=== PATIENT | female | born 1960 | race Caucasian/White ===

== ENCOUNTER 2022-01-14 17:28 | Observation (INO) | payer BC ==
--- OUTSIDE RECORDS SUMMARY | 2022-01-14 17:51 | XMS REPORT | Continuity of Care Document ---
:1960 Author Organization [facility] t Address [address] [place] [address] Dr. [address]. [address] [place] [address] Care Team Providers Name Role Phone PRINCE BRIAN NURY Primary Care Physician Unavailable ALYSIA SHELL Attending Clinician Unavailable Pauline Boone MD, Guilherme Attending Clinician Jeff Luciano MD Attending Clinician FLORENTIN CARPENTER Attending Clinician Unavailable MALENA SHELL Attending Clinician Unavailable ABIGAIL MORRELL Attending Clinician Unavailable Malena Shell MD Attending Clinician TAMERA FOWLER Attending Clinician Unavailable BARTOLO GOODMAN Attending Clinician Unavailable RIANA CARCAMO Attending Clinician Unavailable RADHA MARTINEZ Attending Clinician Unavailable ELIDA DE LEON Attending Clinician Unavailable Napoleon Billy MD Attending Clinician RAFAEL HENRIQUEZ Attending Clinician Unavailable YOMAIRA GUPTA Attending Clinician Unavailable DEVI SANTILLAN Attending Clinician Unavailable KAROLINA ROSE Attending Clinician Unavailable Elida De Leon MD Attending Clinician [phone] TAMERA FOWLER Attending Clinician Unavailable ALYCE LAM Attending Clinician Unavailable RIC PARRA Attending Clinician Unavailable RIC PARRA Attending Clinician Unavailable JAMES DEE Attending Clinician Unavailable Kristie Salguero RN Attending Clinician Unavailable Only, Adc Test Attending Clinician Unavailable Kevin Gandhi MD Attending Clinician KEVIN GANDHI Attending Clinician Unavailable Doctor Unassigned, Dewitt Attending Clinician Unavailable Pob, Adc Lab Main Attending Clinician Unavailable Devi Cheema MD Attending Clinician DEVI CHEEMA Attending Clinician Unavailable Radiology Attending Clinician Unavailable RADIOLOGY Attending Clinician Unavailable NICOLE LOZA Attending Clinician Unavailable Devi Santillan NP Attending Clinician WEI GANDHI Attending Clinician Unavailable RAHEEM JOE Attending Clinician Unavailable ISAURA BURROUGHS Attending Clinician Unavailable MD RAHEEM JOE Attending Clinician Unavailable SKYLER LIN Attending Clinician Unavailable Skyler Lin MD Attending Clinician SULEMAN ALYSIA MAKSIM Admitting Clinician Unavailable TAMERA FOWLER Admitting Clinician Unavailable JAMES DEE Admitting Clinician Unavailable WEI GANDHI Admitting Clinician Unavailable MD RAHEEM JEO Admitting Clinician Unavailable SKYLER LIN Admitting Clinician Unavailable Payers Payer Name Policy Type Policy Number Effective Date Expiration Date S [facility] [place] [place] BCBS OS POS/PPO/EPO [id number] 2020 00:00:00 OUT OF STATE BCBS - [id number] PPO - BCBS GENERIC PPO - [id number] GENERIC PAYOR GENERIC COMMERCIAL [id number] 2016 00:00:00 Problems Condition Condition Condition Status Onset Resolution Last Treating Co mments Source Name Details Category Date Date Treatment Clinician Date 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 ium avium 3-02 [facility] infection infection 00:00: of 00 Medicin e Pneumothor Pneumothor Disease Active [facility]osp[facility] 00 l Nodule of Nodule of Disease Active [facility] lower lobe lower lobe 1-21 st of left of left 00:00: Hospita lung lung 00 l CVID CVID Disease Active [facility] (common (common 2-18 College variable variable 00:00: of immunodefi immunodefi 00 Me dicin ciency) ciency) e Gastropare Gastropare Disease Active 2016-04 B natalee sis sis 0-21 College 00:00: of 00 Medicin e Renal mass Renal mass Disease [facility] 7-17 College 00:00: of 00 Medicin e Personal Personal Disease Active [facility] r history of history of 6-29 Co llege kidney kidney 00:00: of cancer cancer 00 Medicin e Personal Personal Disease Active [facility] r history of history of 6-29 Co llege kidney kidney 00:00: of cancer cancer 00 Medicin e Essential Essential Disease Active [facility] hypertensi hypertensi 5-10 Co llege on on 00:00: of 00 Medicin e Hip pain, Hip pain, Disease Active 2014-04 Uni vers bilateral bilateral 1-25 ity of 00:00: [place] 00 [facility] Shoulder Shoulder Disease Active 2014-04 Unive rs pain, pain, 1-25 [place] 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 reticulari Co llege s s of Medicin e History of History of Disease Active B [facility] stomach stomach [place] ulcers ulcers of Medicin e Migraine Migraine Disease Active [facility] headache headache Colleg e of Medicin e COPD COPD Disease Active [facility] (chronic (chronic Colleg e obstructiv obstructiv of e e Medicin pulmonary pulmonary e disease) disease) Carotid Carotid Disease Active [facility] artery artery College disease disease of Medicin e Pneumonia Pneumonia Disease Active [facility] of Medicin e Diverticul Diverticul Disease Active B [facility] itis itis College of Medicin e Allergies, Adverse Reactions, Alerts Allergy Allergy Status Severity Reaction(s) Onset Inactive Treating Comm ents Source Name Type Date Date Clinician Adhesive Propensi Active Unknown - Silk tape Univers ty to See comments 6-05 peels ity of adverse 00:00: skin off, [place] reaction 00 prefers Medical s paper Branch tape ADHESIVE Drug Active Unknown-Cmnt Un jesse Class 6-05 ity of 00:00: [place] 00 Medical Branch ADHESIVE Allergy Active High Other 2016- [facility] 6 00:00: 00 CEPHALOS Allergy Active High N\\T\\V [facility] PORINS 6 00:00: 00 OTHER Allergy Active High N\\T\\V 0 [facility] 605 00:00: 00 PENICILL Allergy Active High N\\T\\V [facility] INS 6 00:00: 00 SULFA Allergy Active High N\\T\\V [facility]H (SULFONA 09-05 MIDE 00:00: ANTIBIOT 00 ICS) Cephalos Propensi Active Nausea Univer s porins ty to and/or 07-07 ity of adverse Vomiting 00:00: [place] reaction 00 Medical s Branch CEPHALOS Drug Active N/V Univers PORINS Class - ity of 00:00: [place] 00 Medical Branch PENICILL Drug Active N/V Univers INS Class 4 ity of 00:00: [place] 00 [facility] Branch Penicill Propensi Active Nausea Univer s ins ty to and/or 07-07 ity of adverse Vomiting 00:00: [place] reaction 00 Medical s Branch Cephalos Propensi Active [facility] porins ty to 06 [place] adverse 00:00: of reaction 00 Medicin s to e drug Codeine Propensi Active [facility] ty to 4-06 [place] adverse 00:00: of reaction 00 Medicin s to e drug Penicill Propensi Active [facility] ins ty to 406 [place] adverse 00:00: of reaction 00 Medicin s to e drug Sulfa Propensi Active [facility] Antibiot ty to 4-06 [place] ics adverse 00:00: of reaction 00 Medicin s to e drug CODEINE DRUG Active N/V 2014-04 Univers INGREDI 04-13 ity of 00:00: [place] 00 Medical Branch Codeine Propensi Active Nausea 2014-04 Univers ty to and/or 04-13 ity of adverse Vomiting 00:00: [place] reaction 00 Medical s Branch PENICILL DRUG Active N/V 2014-04 Univers IN INGREDI 04-13 ity of 00:00: [place] 00 Medical Branch SULFA Drug Active N/V 2014-04 Univers (SULFONA Class 04-13 ity of MIDE 00:00: [place] ANTIBIOT 00 Medical ICS) Branch Penicill Propensi Active Nausea 2014-04 Univer s in ty to and/or 04-13 ity of adverse Vomiting 00:00: [place] reaction 00 Medical s Branch Sulfa Propensi Active Nausea 2014-04 Univers (Sulfona ty to and/or 04-13 ity of mide adverse Vomiting 00:00: [place] Antibiot reaction 00 Medica l ics) s Branch CODEINE Allergy Active High N\\T\\V 2014-[address] [facility] Social History Social Habit Start Date Stop Date Quantity Comments Source History [facility] Drinks History [facility] History [facility] Alcohol Comment of Medici ne History of Cigarette Smoker [facility] ollekyara tobacco use of Medicine Cigarette 2022-01-11 2022-01-11 [facility] pack-years 00:00:00 00:00:00 of Medicine Tobacco Comment 2022-01-11 2022-01-11 I have smoked daily [facility] 00:00:00 00:00:00 for approximately 40 of years. I have started taking Chantix this past Monday. Tobacco use and 2022-01-11 2022-01-11 Smokeless tobacco [facility] exposure 00:00:00 00:00:00 non-user of Medicine Exposure to 2021-12-14 2021-12-24 Not sure [facility] e SARS-CoV-2 00:00:00 09:41:00 of Medicine (event) Alcohol intake 2020-04-23 2020-04-23 Lifetime non-drinker [facility] 00:00:00 00:00:00 (finding) Hospital History [facility] 2020-04-23 2020-04-23 1 [facility] Alcohol Frequency 00:00:00 00:00:00 Hospita l Cigarettes smoked 2019-02-01 2019-02-01 Univers ity of current (pack per 00:00:00 00:00:00 ) - Reported Branch Sex Ass[birth year] At [birth year] [facility] 00:00:00 00:00:00 Hospital Smoking Status Start Date Stop Date Source Occasional tobacco smoker 2022-01-11 00:00:00 [facility] Current every day smoker 2019-02-01 00:00:00 [facility] Medications Ordered Filled Start Stop Current Ordering Indication Dosage Frequency Signature Comments Components Source Medication Medication Date Date Medication? Clinician (SIG) Name Name Norma 2021-04 Yes 1{tbl} Take 1 [facility] min (B-12 0-11 Tablet by [facility] OR) 10:01: mouth of 29 daily. Medicin e alprazolam 2021-04 Yes .5mg Take 0.5 [place] [facility] (XANAX) 0.5 0-11 mg by [place] MG tablet 10:01: mouth of 29 nightly as Medicin needed for e Sleep. estrogens, 2021-04 Yes 1.25mg Take 1.25 [facility] conjugated, 0-11 mg by [place] (PREMARIN) 10:01: mouth of 1.25 MG 29 daily. Medicin tablet e montelukast 2021-04 Yes 10mg Take 10 mg [facility] (SINGULAIR) 0-11 by mouth [facility] 10 MG 10:01: daily. of tablet 29 Medicin e omeprazole 2021-04 Yes 40mg Take 40 mg [facility] (PRILOSEC) 0-11 by mouth [facility] 40 MG 10:01: daily. of capsule 29 Medicin e MAGNESIUM 2021-04 Yes 1{tbl} Take 1 [facility] OR 0-11 Tablet by [place] 10:01: mouth of 29 daily. Medicin e acetaminoph 2021-04 Yes 1000mg Take 1,000 [facility] en 0-11 mg by [place] (TYLENOL) 10:01: mouth as of 500 mg 29 needed for Medicin tablet Pain. e gabapentin 2021-04 Yes 300mg Take 300 [facility] (NEURONTIN) 0-11 mg by [place] 300 MG 10:01: mouth 3 of capsule 29 times Medicin daily. e oxybutynin 2021-04 Yes 10mg Take 10 mg [facility] (DITROPAN-X 0-11 by mouth [facility] L) 10 MG CR 10:01: as needed. of tablet 29 Medicin e Cabozantini 2021-04 Yes [id number] Take by [place] [facility] b S-[place] 0-11 mouth. College 20 MG TABS 10:01: Take of 29 2-20mg Medicin tablets by e mouth once daily. Indication s: Kidney Cell Carcinoma Cyanocobala 2021-04 Yes 1{tbl} Take 1 [facility] min (B-12 0-11 Tablet by [facility] ge OR) 10:01: mouth of 29 daily. Medicin e alprazolam 2021-04 Yes .5mg Take 0.5 [place] [facility] (XANAX) 0.5 0-11 mg by [place] MG tablet 10:01: mouth of 29 nightly as Medicin needed for e Sleep. estrogens, 2021-04 Yes 1.25mg Take 1.25 [facility] conjugated, 0-11 mg by College (PREMARIN) 10:01: mouth of 1.25 MG 29 daily. Medicin tablet e montelukast 2021-04 Yes 10mg Take 10 mg [facility] (SINGULAIR) 0-11 by mouth [facility] 10 MG 10:01: daily. of tablet 29 Medicin e omeprazole 2021-04 Yes 40mg Take 40 mg [facility] (PRILOSEC) 0-11 by mouth Colle ge 40 MG 10:01: daily. of capsule 29 Medicin e MAGNESIUM 2021-04 Yes 1{tbl} Take 1 [facility] OR 0-11 Tablet by College 10:01: mouth of 29 daily. Medicin e acetaminoph 2021-04 Yes 1000mg Take 1,000 [facility] en 0-11 mg by [place] (TYLENOL) 10:01: mouth as of 500 mg 29 needed for Medicin tablet Pain. e gabapentin 2021-04 Yes 300mg Take 300 [facility] (NEURONTIN) 0-11 mg by [place] 300 MG 10:01: mouth 3 of capsule 29 times Medicin daily. e oxybutynin 2021-04 Yes 10mg Take 10 mg [facility] (DITROPAN-X 0-11 by mouth [facility] L) 10 MG CR 10:01: as needed. of tablet 29 Medicin e Cabozantini 2021-04 Yes [id number] Take by [place] [facility]-[place] 0-11 mouth. College 20 MG TABS 10:01: Take of 29 2-20mg Medicin tablets by e mouth once daily. Indication s: Kidney Cell Carcinoma carvedilol Yes TAKE 1 [facility] (COREG) 25 9-30 TABLET BY [facility] MG tablet 00:00: MOUTH of 00 TWICE Medicin DAILY e carvedilol Yes TAKE 1 [facility] (COREG) 25 -30 TABLET BY [facility] MG tablet 00:00: MOUTH of 00 TWICE Medicin DAILY e candesartan 2021-0 2- No 16mg Take 16 mg [facility] (ATACAND) -24 12-23 by mouth Colle ge 16 MG 11:11: 00:00 daily. of tablet 30 :00 Medicin e Cyanocobala Yes 1{tbl} Take 1 [facility] min (B-12 - Tablet by [facility] ge OR) 10:19: mouth of 31 daily. Medicin e alprazolam 0 Yes .5mg Take 0.5 [place] [facility] (XANAX) 0.5 -23 mg by [place] MG tablet 10:19: mouth of 31 nightly as Medicin needed for e Sleep. estrogens, 0 Yes 1.25mg Take 1.25 [facility] conjugated, 9-23 mg by [place] (PREMARIN) 10:19: mouth of 1.25 MG 31 daily. Medicin tablet e montelukast Yes 10mg Take 10 mg [facility] (SINGULAIR) 12-24 by mouth [facility] 10 MG 10:19: daily. of tablet 31 Medicin e omeprazole 0 Yes 40mg Take 40 mg [facility] (PRILOSEC) 12-24 by mouth Colle ge 40 MG 10:19: daily. of capsule 31 Medicin e MAGNESIUM 0 Yes 1{tbl} Take 1 [facility] OR 12-24 Tablet by [place] 10:19: mouth of 31 daily. Medicin e acetaminoph 0 Yes 1000mg Take 1,000 [facility] en 9-23 mg by [place] (TYLENOL) 10:19: mouth as of 500 mg 31 needed for Medicin tablet Pain. e gabapentin 0 Yes 300mg Take 300 [facility] (NEURONTIN) - mg by [place] 300 MG 10:19: mouth 3 of capsule 31 times Medicin daily. e oxybutynin 0 Yes 10mg Take 10 mg [facility] (DITROPAN-X 12-24 by mouth [facility] L) 10 MG CR 10:19: as needed. of tablet 31 Medicin e Cabozantini 0 Yes [id number] Take by [place] [facility]-[place] 12-24 mouth. College 20 MG TABS 10:19: Take of 31 2-20mg Medicin tablets by e mouth once daily. Indication s: Kidney Cell Carcinoma Magic 0 Yes Swish, [facility] Mouthwash - gargle, College 00:00: and spit of 00 5-10 mL Medicin every 4 to e 6 hours as needed candesartan 2021-0 Yes [id number] TAKE 1 [facility] (ATACAND) 9-23 TABLET BY Colle ge 16 MG 00:00: MOUTH of tablet 00 DAILY. Medicin e Magic 0 Yes Swish, [facility] Mouthwash - gargle, [place] 00:00: and spit of 00 5-10 mL Medicin every 4 to e 6 hours as needed candesartan 2021-0 Yes [id number] TAKE 1 [facility] (ATACAND) 9-23 TABLET BY Colle ge 16 MG 00:00: MOUTH of tablet 00 DAILY. Medicin e Magic Yes Swish, [facility] Mouthwash - gargle, [place] 00:00: and spit of 00 5-10 mL Medicin every 4 to e 6 hours as needed Cabozantini Yes [id number] Take by [place] [facility] S-[place] 8-26 mouth. [place] 20 MG TABS 09:24: Take of 18 2-20mg Medicin tablets by e mouth once daily. Indication s: Kidney Cell Carcinoma Cyanocobala Yes 1{tbl} Take 1 [facility] min (B-12 8-26 Tablet by [facility] OR) 08:33: mouth of 06 daily. Medicin e alprazolam Yes .5mg Take 0.5 [place] [facility] (XANAX) 0.5 8-26 mg by [place] MG tablet 08:33: mouth of 06 nightly as Medicin needed for e Sleep. estrogens, 0 Yes 1.25mg Take 1.25 [facility] conjugated, 8-26 mg by [place] (PREMARIN) 08:33: mouth of 1.25 MG 06 daily. Medicin tablet e montelukast 0 Yes 10mg Take 10 mg [facility] (SINGULAIR) 8-26 by mouth [facility] 10 MG 08:33: daily. of tablet 06 Medicin e omeprazole 2022-0 Yes 40mg Take 40 mg [facility] (PRILOSEC) 8-26 by mouth Colle ge 40 MG 08:33: daily. of capsule 06 Medicin e MAGNESIUM 0 Yes 1{tbl} Take 1 [facility] OR 8-26 Tablet by [place] 08:33: mouth of 06 daily. Medicin e acetaminoph 2021-0 Yes 1000mg Take 1,000 [facility] en 8-26 mg by [place] (TYLENOL) 08:33: mouth as of 500 mg 06 needed for Medicin tablet Pain. e gabapentin 0 Yes 300mg Take 300 [facility] (NEURONTIN) 8-26 mg by College 300 MG 08:33: mouth 3 of capsule 06 times Medicin daily. e oxybutynin 0 Yes 10mg Take 10 mg [facility] (DITROPAN-X 8-26 by mouth [facility] L) 10 MG CR 08:33: as needed. of tablet 06 Medicin e candesartan 0 Yes 16mg Take 16 mg [facility] (ATACAND) 8-26 by mouth Colleg e 16 MG 08:33: daily. of tablet 06 Medicin e Cyanocobala 0 Yes 1{tbl} Take 1 [facility] min (B-12 8-24 Tablet by [facility] ge OR) 12:47: mouth of 29 daily. Medicin e alprazolam 0 Yes .5mg Take 0.5 [place] [facility] (XANAX) 0.5 8-24 mg by [place] MG tablet 12:47: mouth of 29 nightly as Medicin needed for e Sleep. estrogens, 2021-0 Yes 1.25mg Take 1.25 [facility] conjugated, 8-24 mg by [place] (PREMARIN) 12:47: mouth of 1.25 MG 29 daily. Medicin tablet e montelukast 0 Yes 10mg Take 10 mg [facility] (SINGULAIR) 8-24 by mouth [facility] 10 MG 12:47: daily. of tablet 29 Medicin e omeprazole 2021-0 Yes 40mg Take 40 mg [facility] (PRILOSEC) 8-24 by mouth Colle ge 40 MG 12:47: daily. of capsule 29 Medicin e MAGNESIUM 2021-0 Yes 1{tbl} Take 1 [facility] OR 8-24 Tablet by [place] 12:47: mouth of 29 daily. Medicin e acetaminoph 2021-0 Yes 1000mg Take 1,000 [facility] en 8-24 mg by [place] (TYLENOL) 12:47: mouth as of 500 mg 29 needed for Medicin tablet Pain. e gabapentin 2021-0 Yes 300mg Take 300 [facility] (NEURONTIN) 8-24 mg by [place] 300 MG 12:47: mouth 3 of capsule 29 times Medicin daily. e oxybutynin 2021-0 Yes 10mg Take 10 mg [facility] (DITROPAN-X 8-24 by mouth [facility] L) 10 MG CR 12:47: as needed. of tablet 29 Medicin e candesartan 2021-0 Yes 16mg Take 16 mg [facility] (ATACAND) 8-24 by mouth Colleg e 16 MG 12:47: daily. of tablet 29 Medicin e Cyanocobala 2021-0 Yes 1{tbl} Take 1 [facility] min (B-12 8-24 Tablet by [facility] ge OR) 11:03: mouth of 10 daily. Medicin e alprazolam 2021-0 Yes .5mg Take 0.5 [place] [facility] (XANAX) 0.5 8-24 mg by [place] MG tablet 11:03: mouth of 10 nightly as Medicin needed for e Sleep. estrogens, 2021-0 Yes 1.25mg Take 1.25 [facility] conjugated, 8-24 mg by [place] (PREMARIN) 11:03: mouth of 1.25 MG 10 daily. Medicin tablet e montelukast 2021-0 Yes 10mg Take 10 mg [facility] (SINGULAIR) 8-24 by mouth [facility] 10 MG 11:03: daily. of tablet 10 Medicin e omeprazole 2021-0 Yes 40mg Take 40 mg [facility] (PRILOSEC) 8-24 by mouth Colle ge 40 MG 11:03: daily. of capsule 10 Medicin e MAGNESIUM 2021-0 Yes 1{tbl} Take 1 [facility] OR 8-24 Tablet by [place] 11:03: mouth of 10 daily. Medicin e acetaminoph 2021-0 Yes 1000mg Take 1,000 [facility] en 8-24 mg by [place] (TYLENOL) 11:03: mouth as of 500 mg 10 needed for Medicin tablet Pain. e gabapentin 2022-0 Yes 300mg Take 300 [facility] (NEURONTIN) 8-24 mg by [place] 300 MG 11:03: mouth 3 of capsule 10 times Medicin daily. e oxybutynin 0 Yes 10mg Take 10 mg [facility] (DITROPAN-X 8-24 by mouth [facility] L) 10 MG CR 11:03: as needed. of tablet 10 Medicin e candesartan 0 Yes 16mg Take 16 mg [facility] (ATACAND) 8-24 by mouth Colleg e 16 MG 11:03: daily. of tablet 10 Medicin e albuterol 0 Yes [id number] 90ug Inhale 1 [facility] 108 (90 8-24 Puff by [place] base) 00:00: mouth 2 of mcg/act 00 times Medicin inhaler daily as e needed for Wheezing. Fluticasone 0 Yes [id number] 1{puff} Inhale 1 [facility] -Salmeterol 8-24 Puff by [facility] (ADVAIR) 00:00: mouth of 250-50 00 every 12 Medicin MCG/ACT hours. e inhaler albuterol 0 Yes [id number] 90ug Inhale 1 [facility] 108 (90 8-24 Puff by [place] base) 00:00: mouth 2 of mcg/act 00 times Medicin inhaler daily as e needed for Wheezing. Fluticasone 0 Yes [id number] 1{puff} Inhale 1 [facility] -Salmeterol 8-24 Puff by [facility] (ADVAIR) 00:00: mouth of 250-50 00 every 12 Medicin MCG/ACT hours. e inhaler busPIRone 0 Yes 10mg Take 1 [facility] (BUSPAR) 10 8-24 Tablet by Col lege MG tablet 00:00: mouth two of 00 times Medicin daily. e albuterol 0 Yes [id number] 90ug Inhale 1 [facility] 108 (90 8-24 Puff by [place] base) 00:00: mouth 2 of mcg/act 00 times Medicin inhaler daily as e needed for Wheezing. Fluticasone 2021-0 Yes [id number] 1{puff} Inhale 1 [facility] -Salmeterol 8-24 Puff by Colle ge (ADVAIR) 00:00: mouth of 250-50 00 every 12 Medicin MCG/ACT hours. e inhaler busPIRone 2021-0 Yes 10mg Take 1 [facility] (BUSPAR) 10 8-24 Tablet by Col lege MG tablet 00:00: mouth two of 00 times Medicin daily. e albuterol 2021-0 Yes [id number] 90ug Inhale 1 [facility] 108 (90 8-24 Puff by [place] base) 00:00: mouth 2 of mcg/act 00 times Medicin inhaler daily as e needed for Wheezing. Fluticasone 2021-0 Yes [id number] 1{puff} Inhale 1 [facility] -Salmeterol 8-24 Puff by [facility] (ADVAIR) 00:00: mouth of 250-50 00 every 12 Medicin MCG/ACT hours. e inhaler busPIRone 2021-0 Yes 10mg Take 1 [facility] (BUSPAR) 10 8-24 Tablet by Col [facility]ge MG tablet 00:00: mouth two of 00 times Medicin daily. e albuterol 2021-0 Yes [id number] 90ug Inhale 1 [facility] 108 (90 8-24 Puff by College base) 00:00: mouth 2 of mcg/act 00 times Medicin inhaler daily as e needed for Wheezing. Fluticasone 2021-0 Yes [id number] 1{puff} Inhale 1 [facility] -Salmeterol 8-24 Puff by [facility] (ADVAIR) 00:00: mouth of 250-50 00 every 12 Medicin MCG/ACT hours. e inhaler busPIRone 2021-0 Yes 10mg Take 1 [facility] (BUSPAR) 10 8-24 Tablet by Col lege MG tablet 00:00: mouth two of 00 times Medicin daily. e albuterol 2021-0 Yes [id number] 90ug Inhale 1 [facility] 108 (90 8-24 Puff by [place] base) 00:00: mouth 2 of mcg/act 00 times Medicin inhaler daily as e needed for Wheezing. Fluticasone 2021-0 Yes [id number] 1{puff} Inhale 1 [facility] -Salmeterol 8-24 Puff by [facility]le ge (ADVAIR) 00:00: mouth of 250-50 00 every 12 Medicin MCG/ACT hours. e inhaler busPIRone 0 Yes 10mg Take 1 [facility] (BUSPAR) 10 8-24 Tablet by [facility] lege MG tablet 00:00: mouth two of 00 times Medicin daily. e Cyanocobala 0 Yes 1{tbl} Take 1 [facility] min (B-12 7-29 Tablet by Colle ge OR) 09:51: mouth of 35 daily. Medicin e alprazolam 0 Yes .5mg Take 0.5 [place] [facility] (XANAX) 0.5 7-29 mg by [place] MG tablet 09:51: mouth of 35 nightly as Medicin needed for e Sleep. estrogens, 0 Yes 1.25mg Take 1.25 [facility] conjugated, 7-29 mg by College (PREMARIN) 09:51: mouth of 1.25 MG 35 daily. Medicin tablet e montelukast 0 Yes 10mg Take 10 mg [facility] (SINGULAIR) 7-29 by mouth [facility] 10 MG 09:51: daily. of tablet 35 Medicin e omeprazole 0 Yes 40mg Take 40 mg [facility] (PRILOSEC) 7-29 by mouth Colle ge 40 MG 09:51: daily. of capsule 35 Medicin e MAGNESIUM 0 Yes 1{tbl} Take 1 [facility] [place] 7-29 Tablet by College 09:51: mouth of 35 daily. Medicin e acetaminoph 0 Yes 1000mg Take 1,000 [facility] en 7-29 mg by [place] (TYLENOL) 09:51: mouth as of 500 mg 35 needed for Medicin tablet Pain. e gabapentin 0 Yes 300mg Take 300 [facility] (NEURONTIN) 7-29 mg by [place] 300 MG 09:51: mouth 3 of capsule 35 times Medicin daily. e oxybutynin 0 Yes 10mg Take 10 mg [facility] (DITROPAN-X 7-29 by mouth [facility] L) 10 MG CR 09:51: as needed. of tablet 35 Medicin e candesartan 0 Yes 16mg Take 16 mg [facility] (ATACAND) 7-29 by mouth Colleg e 16 MG 09:51: daily. of tablet 35 Medicin e Cyanocobala 0 Yes 1{tbl} Take 1 [facility] min (B-12 7-29 Tablet by Colle ge OR) 09:51: mouth of 35 daily. Medicin e alprazolam 0 Yes .5mg Take 0.5 [place] [facility] (XANAX) 0.5 7-29 mg by [place] MG tablet 09:51: mouth of 35 nightly as Medicin needed for e Sleep. estrogens, 0 Yes 1.25mg Take 1.25 [facility] conjugated, 7-29 mg by College (PREMARIN) 09:51: mouth of 1.25 MG 35 daily. Medicin tablet e montelukast 0 Yes 10mg Take 10 mg [facility] (SINGULAIR) 7-29 by mouth [facility] 10 MG 09:51: daily. of tablet 35 Medicin e omeprazole 0 Yes 40mg Take 40 mg [facility] (PRILOSEC) 7-29 by mouth Colle ge 40 MG 09:51: daily. of capsule 35 Medicin e MAGNESIUM 0 Yes 1{tbl} Take 1 [facility] [place] 7-29 Tablet by College 09:51: mouth of 35 daily. Medicin e acetaminoph 0 Yes 1000mg Take 1,000 [facility] en 7-29 mg by [place] (TYLENOL) 09:51: mouth as of 500 mg 35 needed for Medicin tablet Pain. e gabapentin 0 Yes 300mg Take 300 [facility] (NEURONTIN) 7-29 mg by [place] 300 MG 09:51: mouth 3 of capsule 35 times Medicin daily. e oxybutynin 0 Yes 10mg Take 10 mg [facility] (DITROPAN-X 7-29 by mouth [facility]) 10 MG CR 09:51: as needed. of tablet 35 Medicin e candesartan 0 Yes 16mg Take 16 mg [facility] (ATACAND) 7-29 by mouth [facility] 16 MG 09:51: daily. of tablet 35 Medicin e tramadol 0 Yes [id number] 1{tbl} Take 1 [facility] (ULTRAM) 50 7-29 102 Tablet by [facility] lege MG tablet 00:00: mouth of 00 every 6 Medicin hours as e needed for Pain. busPIRone 0 Yes 5mg Take 1 [facility] (BUSPAR) 5 7-29 Tablet by [facility] MG tablet 00:00: mouth two of 00 times Medicin daily. e tramadol 2022-0 Yes [id number] 1{tbl} Take 1 [facility] (ULTRAM) 50 7-29 102 Tablet by [facility] MG tablet 00:00: mouth of 00 every 6 Medicin hours as e needed for Pain. busPIRone 2022-0 Yes 5mg Take 1 [facility] (BUSPAR) 5 7-29 Tablet by [facility] MG tablet 00:00: mouth two of 00 times Medicin daily. e verapamil 2022-0 Yes 240mg Take 1 [facility] (CALAN-SR) 7-29 Tablet by [facility] 240 MG CR 00:00: mouth of tablet 00 daily. Medicin e lovastatin 2022-0 Yes 20mg Take 1 [facility] (MEVACOR) 7-29 Tablet by [facility]le [facility] 20 MG 00:00: mouth of tablet 00 every Medicin evening. e azithromyci 2022-0 Yes 500mg Take 500 [facility] 7-29 mg by [place] (ZITHROMAX) 00:00: mouth 3 of 500 MG 00 times Medicin tablet weekly. e ethambutol 2022-0 Yes 1200mg Take 1,200 [facility] (MYAMBUTOL) 7-29 mg by [place] 400 MG 00:00: mouth 3 of tablet 00 times Medicin weekly. e tramadol 2022-0 Yes [id number] 1{tbl} Take 1 [facility] (ULTRAM) 50 7-29 102 Tablet by [facility] MG tablet 00:00: mouth of 00 every 6 Medicin hours as e needed for Pain. busPIRone 2022-0 Yes 5mg Take 1 [facility] (BUSPAR) 5 7-29 Tablet by [facility] MG tablet 00:00: mouth two of 00 times Medicin daily. e verapamil 2022-0 Yes 240mg Take 1 [facility] (CALAN-SR) 7-29 Tablet by [facility] 240 MG CR 00:00: mouth of tablet 00 daily. Medicin e lovastatin 2022-0 Yes 20mg Take 1 [facility] (MEVACOR) 7-29 Tablet by [facility] 20 MG 00:00: mouth of tablet 00 every Medicin evening. e azithromyci 2022-0 Yes 500mg Take 500 [facility] 7-29 mg by [place] (ZITHROMAX) 00:00: mouth 3 of 500 MG 00 times Medicin tablet weekly. e ethambutol 2022-0 Yes 1200mg Take 1,200 [facility] (MYAMBUTOL) 7-29 mg by [place] 400 MG 00:00: mouth 3 of tablet 00 times Medicin weekly. e tramadol 2022-0 Yes [id number] 1{tbl} Take 1 [facility] (ULTRAM) 50 7-29 102 Tablet by [facility] MG tablet 00:00: mouth of 00 every 6 Medicin hours as e needed for Pain. busPIRone 2022-0 Yes 5mg Take 1 [facility] (BUSPAR) 5 7-29 Tablet by [facility] MG tablet 00:00: mouth two of 00 times Medicin daily. e verapamil 2022-0 Yes 240mg Take 1 [facility] (CALAN-SR) 7-29 Tablet by [facility] 240 MG CR 00:00: mouth of tablet 00 daily. Medicin e lovastatin 2022-0 Yes 20mg Take 1 [facility] (MEVACOR) 7-29 Tablet by [facility] ge 20 MG 00:00: mouth of tablet 00 every Medicin evening. e azithromyci 2022-0 Yes 500mg Take 500 [facility] 7-29 mg by [place] (ZITHROMAX) 00:00: mouth 3 of 500 MG 00 times Medicin tablet weekly. e ethambutol 2022-0 Yes 1200mg Take 1,200 [facility] (MYAMBUTOL) 7-29 mg by [place] 400 MG 00:00: mouth 3 of tablet 00 times Medicin weekly. e tramadol 2022-0 Yes [id number] 1{tbl} Take 1 [facility] (ULTRAM) 50 7-29 102 Tablet by [facility] le[facility] MG tablet 00:00: mouth of 00 every 6 Medicin hours as e needed for Pain. busPIRone 2022-0 Yes 5mg Take 1 [facility] (BUSPAR) 5 7-29 Tablet by [facility] MG tablet 00:00: mouth two of 00 times Medicin daily. e verapamil 2022-0 Yes 240mg Take 1 [facility] (CALAN-SR) 7-29 Tablet by [facility] 240 MG CR 00:00: mouth of tablet 00 daily. Medicin e lovastatin 2022-0 Yes 20mg Take 1 [facility] (MEVACOR) 7-29 Tablet by [facility] 20 MG 00:00: mouth of tablet 00 every Medicin evening. e azithromyci 2022-0 Yes 500mg Take 500 [facility] 7-29 mg by [place] (ZITHROMAX) 00:00: mouth 3 of 500 MG 00 times Medicin tablet weekly. e ethambutol 2-0 Yes 1200mg Take 1,200 [facility] (MYAMBUTOL) 7-29 mg by [place] 400 MG 00:00: mouth 3 of tablet 00 times Medicin weekly. e tramadol 2-0 Yes [id number] 1{tbl} Take 1 [facility] (ULTRAM) 50 7-29 102 Tablet by [facility] MG tablet 00:00: mouth of 00 every 6 Medicin hours as e needed for Pain. busPIRone 2-0 Yes 5mg Take 1 [facility] (BUSPAR) 5 7-29 Tablet by [facility] MG tablet 00:00: mouth two of 00 times Medicin daily. e verapamil 2-0 Yes 240mg Take 1 [facility] (CALAN-SR) 7-29 Tablet by [facility] 240 MG CR 00:00: mouth of tablet 00 daily. Medicin e lovastatin 2021-0 Yes 20mg Take 1 [facility] (MEVACOR) 7-29 Tablet by [facility] 20 MG 00:00: mouth of tablet 00 every Medicin evening. e azithromyci 2-0 Yes 500mg Take 500 [facility] 7-29 mg by [place] (ZITHROMAX) 00:00: mouth 3 of 500 MG 00 times Medicin tablet weekly. e ethambutol 2-0 Yes 1200mg Take 1,200 [facility] (MYAMBUTOL) 7-29 mg by [place] 400 MG 00:00: mouth 3 of tablet 00 times Medicin weekly. e tramadol 2022-0 Yes [id number] 1{tbl} Take 1 [facility] (ULTRAM) 50 7-29 102 Tablet by [facility] lege MG tablet 00:00: mouth of 00 every 6 Medicin hours as e needed for Pain. busPIRone 2022-0 Yes 5mg Take 1 [facility] (BUSPAR) 5 7-29 Tablet by [facility] MG tablet 00:00: mouth two of 00 times Medicin daily. e verapamil 2022-0 Yes 240mg Take 1 [facility] (CALAN-SR) 7-29 Tablet by [facility] 240 MG CR 00:00: mouth of tablet 00 daily. Medicin e lovastatin 2021-0 Yes 20mg Take 1 [facility] (MEVACOR) 7-29 Tablet by [facility] ge 20 MG 00:00: mouth of tablet 00 every Medicin evening. e azithromyci 2021-0 Yes 500mg Take 500 [facility] 7-29 mg by [place] (ZITHROMAX) 00:00: mouth 3 of 500 MG 00 times Medicin tablet weekly. e ethambutol 0 Yes 1200mg Take 1,200 [facility] (MYAMBUTOL) 7-29 mg by [place] 400 MG 00:00: mouth 3 of tablet 00 times Medicin weekly. e tramadol 2021- No [id number] 1{tbl} Take 1 [facility] (ULTRAM) 50 7-29 07-29 102 Tablet by [facility] MG tablet 00:00: 00:00 mouth of 00 :00 every 6 Medicin hours as e needed for Pain. clopidogrel 0 Yes TAKE 1 [facility] (PLAVIX) 75 7-19 TABLET BY [facility] lege MG Tablet 00:00: MOUTH of 00 EVERY DAY Medicin e clopidogrel 2021-0 Yes TAKE 1 [facility] (PLAVIX) 75 7-19 TABLET BY [facility] MG Tablet 00:00: MOUTH of 00 EVERY DAY Medicin e moxifloxaci 2021-0 Yes 400mg Take 400 [facility] (AVELOX) 7-19 mg by [place] 400 MG 00:00: mouth of tablet 00 daily. Medicin e clopidogrel 2021-0 Yes TAKE 1 [facility] (PLAVIX) 75 7-19 TABLET BY [facility] MG Tablet 00:00: MOUTH of 00 EVERY DAY Medicin e moxifloxaci 2021-0 Yes 400mg Take 400 [facility] (AVELOX) 7-19 mg by [place] 400 MG 00:00: mouth of tablet 00 daily. Medicin e clopidogrel 2021-0 Yes TAKE 1 [facility] (PLAVIX) 75 7-19 TABLET BY [facility] MG Tablet 00:00: MOUTH of 00 EVERY DAY Medicin e moxifloxaci 2021-0 Yes 400mg Take 400 [facility] (AVELOX) 7-19 mg by [place] 400 MG 00:00: mouth of tablet 00 daily. Medicin e clopidogrel Yes TAKE 1 [facility] (PLAVIX) 75 7-19 TABLET BY [facility] MG Tablet 00:00: MOUTH of 00 EVERY DAY Medicin e moxifloxaci 2021-0 Yes 400mg Take 400 [facility] (AVELOX) 7-19 mg by [place] 400 MG 00:00: mouth of tablet 00 daily. Medicin e clopidogrel Yes TAKE 1 [facility] (PLAVIX) 75 7-19 TABLET BY [facility] MG Tablet 00:00: MOUTH of 00 EVERY DAY Medicin e moxifloxaci 0 Yes 400mg Take 400 [facility] (AVELOX) 7-19 mg by [place] 400 MG 00:00: mouth of tablet 00 daily. Medicin e clopidogrel Yes TAKE 1 [facility] (PLAVIX) 75 7-19 TABLET BY [facility] MG Tablet 00:00: MOUTH of 00 EVERY DAY Medicin e moxifloxaci 0 Yes 400mg Take 400 [facility] (AVELOX) 7-19 mg by [place] 400 MG 00:00: mouth of tablet 00 daily. Medicin e clopidogrel Yes TAKE 1 [facility] (PLAVIX) 75 7-19 TABLET BY [facility] MG Tablet 00:00: MOUTH of 00 EVERY DAY Medicin e Cyanocobala 0 Yes 1{tbl} Take 1 [facility] (B-12 7-11 Tablet by [facility]) 09:56: mouth of 22 daily. Medicin e alprazolam 0 Yes .5mg Take 0.5 [place] [facility] (XANAX) 0.5 7-11 mg by [place] MG tablet 09:56: mouth of 22 nightly as Medicin needed for e Sleep. estrogens, 0 Yes 1.25mg Take 1.25 [facility] conjugated, 7-11 mg by [place] (PREMARIN) 09:56: mouth of 1.25 MG 22 daily. Medicin tablet e montelukast 0 Yes 10mg Take 10 mg [facility] (SINGULAIR) 7-11 by mouth [facility] 10 MG 09:56: daily. of tablet 22 Medicin e omeprazole 2022-0 Yes 40mg Take 40 mg [facility] (PRILOSEC) 7-11 by mouth [facility] 40 MG 09:56: daily. of capsule 22 Medicin e MAGNESIUM 2021-0 Yes 1{tbl} Take 1 [facility] [place] 7-11 Tablet by [place] 09:56: mouth of 22 daily. Medicin e acetaminoph 2021-0 Yes 1000mg Take 1,000 [facility] en 7-11 mg by [place] (TYLENOL) 09:56: mouth as of 500 mg 22 needed for Medicin tablet Pain. e gabapentin 2021-0 Yes 300mg Take 300 [facility] (NEURONTIN) 7-11 mg by [place] 300 MG 09:56: mouth 3 of capsule 22 times Medicin daily. e oxybutynin 0 Yes 10mg Take 10 mg [facility] (DITROPAN-X 7-11 by mouth [facility] L) 10 MG CR 09:56: as needed. of tablet 22 Medicin e candesartan 0 Yes 16mg Take 16 mg [facility] (ATACAND) 7-11 by mouth [facility] 16 MG 09:56: daily. of tablet 22 Medicin e Cyanocobala 0 Yes 1{tbl} Take 1 [facility] (B-12 6-24 Tablet by [facility] ge [place]) 08:08: mouth of 10 daily. Medicin e alprazolam 0 Yes .5mg Take 0.5 [place] [facility] (XANAX) 0.5 6-24 mg by [place] MG tablet 08:08: mouth of 10 nightly as Medicin needed for e Sleep. estrogens, 2021-0 Yes 1.25mg Take 1.25 [facility] conjugated, 6-24 mg by [place] (PREMARIN) 08:08: mouth of 1.25 MG 10 daily. Medicin tablet e montelukast 0 Yes 10mg Take 10 mg [facility] (SINGULAIR) 6-24 by mouth [facility] 10 MG 08:08: daily. of tablet 10 Medicin e omeprazole 2021-0 Yes 40mg Take 40 mg [facility] (PRILOSEC) 6-24 by mouth [facility] 40 MG 08:08: daily. of capsule 10 Medicin e MAGNESIUM 2021-0 Yes 1{tbl} Take 1 [facility] [place] 6-24 Tablet by [facility] 08:08: mouth of 10 daily. Medicin e acetaminoph 2021-0 Yes 1000mg Take 1,000 [facility] en 6-24 mg by [facility] (TYLENOL) 08:08: mouth as of 500 mg 10 needed for Medicin tablet Pain. e gabapentin 2021-0 Yes 300mg Take 300 [facility] (NEURONTIN) 6-24 mg by [facility] 300 MG 08:08: mouth 3 of capsule 10 times Medicin daily. e oxybutynin 2021-0 Yes 10mg Take 10 mg [facility] (DITROPAN-X 6-24 by mouth [facility] L) 10 MG CR 08:08: as needed. of tablet 10 Medicin e candesartan 2021-0 Yes 16mg Take 16 mg [facility] (ATACAND) 6-24 by mouth [facility] 16 MG 08:08: daily. of tablet 10 Medicin e Cyanocobala 2021-0 Yes 1{tbl} Take 1 [facility] (B-12 6-24 Tablet by [facility] ge [place]) 08:08: mouth of 10 daily. Medicin e alprazolam 2021-0 Yes .5mg Take 0.5 [place] [facility] (XANAX) 0.5 6-24 mg by [place] MG tablet 08:08: mouth of 10 nightly as Medicin needed for e Sleep. estrogens, 2021-0 Yes 1.25mg Take 1.25 [facility] conjugated, 6-24 mg by [place] (PREMARIN) 08:08: mouth of 1.25 MG 10 daily. Medicin tablet e montelukast 2021-0 Yes 10mg Take 10 mg [facility] (SINGULAIR) 6-24 by mouth [facility] 10 MG 08:08: daily. of tablet 10 Medicin e omeprazole 2021-0 Yes 40mg Take 40 mg [facility] (PRILOSEC) 6-24 by mouth [facility]le [facility] 40 MG 08:08: daily. of capsule 10 Medicin e MAGNESIUM 2021-0 Yes 1{tbl} Take 1 [facility] [place] 6-24 Tablet by [place] 08:08: mouth of 10 daily. Medicin e acetaminoph 2021-0 Yes 1000mg Take 1,000 [facility] en 6-24 mg by [place] (TYLENOL) 08:08: mouth as of 500 mg 10 needed for Medicin tablet Pain. e gabapentin 2021-0 Yes 300mg Take 300 [facility] (NEURONTIN) 6-24 mg by [facility] 300 MG 08:08: mouth 3 of capsule 10 times Medicin daily. e oxybutynin 0 Yes 10mg Take 10 mg [facility] (DITROPAN-X 6-24 by mouth [facility] L) 10 MG CR 08:08: as needed. of tablet 10 Medicin e candesartan 0 Yes 16mg Take 16 mg [facility] (ATACAND) 6-24 by mouth [facility] 16 MG 08:08: daily. of tablet 10 Medicin e Cabozantini 0 2021- No 40mg Take 40 mg [facility] b S-Malate -24 10-25 by mouth [facility] 40 MG TABS 00:00: 04:59 daily for o f 00 :00 30 days. Medicin e Cabozantini 2021- No 40mg Take 40 mg [facility] b S-[place] -24 10- by mouth [facility] 40 MG TABS 00:00: 04:59 daily for o f 00 :00 30 days. Medicin e Cyanocobala Yes 1{tbl} Take 1 [facility] (B-12 6-03 Tablet by [facility] [place]) 09:20: mouth of 14 daily. Medicin e alprazolam Yes .5mg Take 0.5 [place] [facility] (XANAX) 0.5 6-03 mg by [place] MG tablet 09:20: mouth of 14 nightly as Medicin needed for e Sleep. estrogens, 0 Yes 1.25mg Take 1.25 [facility] conjugated, 6-03 mg by [place] (PREMARIN) 09:20: mouth of 1.25 MG 14 daily. Medicin tablet e montelukast 0 Yes 10mg Take 10 mg [facility] (SINGULAIR) 6-03 by mouth [facility] 10 MG 09:20: daily. of tablet 14 Medicin e omeprazole 0 Yes 40mg Take 40 mg [facility] (PRILOSEC) 6-03 by mouth [facility] 40 MG 09:20: daily. of capsule 14 Medicin e MAGNESIUM 0 Yes 1{tbl} Take 1 [facility] [place] 6-03 Tablet by [place] 09:20: mouth of 14 daily. Medicin e acetaminoph 2021-0 Yes 1000mg Take 1,000 [facility] 6-03 mg by [place] (TYLENOL) 09:20: mouth as of 500 mg 14 needed for Medicin tablet Pain. e gabapentin 2021-0 Yes 300mg Take 300 [facility] (NEURONTIN) 6-03 mg by [place] 300 MG 09:20: mouth 3 of capsule 14 times Medicin daily. e oxybutynin 2021-0 Yes 10mg Take 10 mg [facility] (DITROPAN-X 6-03 by mouth [facility] L) 10 MG CR 09:20: as needed. of tablet 14 Medicin e candesartan 2021-0 Yes 16mg Take 16 mg [facility] (ATACAND) 6-03 by [facility] 16 MG 09:20: daily. of tablet 14 Medicin e Cyanocobala 2021-0 Yes 1{tbl} Take 1 [facility] (B-12 5-13 Tablet by [facility] ge [place]) 08:22: mouth of 09 daily. Medicin e alprazolam 2021-0 Yes .5mg Take 0.5 [place] [facility] (XANAX) 0.5 5-13 mg by [place] MG tablet 08:22: mouth of 09 nightly as Medicin needed for e Sleep. estrogens, 2021-0 Yes 1.25mg Take 1.25 [facility] conjugated, 5-13 mg by [place] (PREMARIN) 08:22: mouth of 1.25 MG 09 daily. Medicin tablet e montelukast 2021-0 Yes 10mg Take 10 mg [facility] (SINGULAIR) 5-13 by mouth [facility] 10 MG 08:22: daily. of tablet 09 Medicin e omeprazole 2021-0 Yes 40mg Take 40 mg [facility] (PRILOSEC) 5-13 by mouth [facility] 40 MG 08:22: daily. of capsule 09 Medicin e MAGNESIUM 2021-0 Yes 1{tbl} Take 1 [facility] [place] 5-13 Tablet by [place] 08:22: mouth of 09 daily. Medicin e acetaminoph 2021-0 Yes 1000mg Take 1,000 [facility] 5-13 mg by [place] (TYLENOL) 08:22: mouth as of 500 mg 09 needed for Medicin tablet Pain. e gabapentin 2021-0 Yes 300mg Take 300 [facility] (NEURONTIN) 5-13 mg by [place] 300 MG 08:22: mouth 3 of capsule 09 times Medicin daily. e oxybutynin 2021-0 Yes 10mg Take 10 mg [facility] (DITROPAN-X 5-13 by mouth [facility] L) 10 MG CR 08:22: as needed. of tablet 09 Medicin e candesartan 2021-0 Yes 16mg Take 16 mg [facility] (ATACAND) 5-13 by [facility] 16 MG 08:22: daily. of tablet 09 Medicin e Cyanocobala 2021-0 Yes 1{tbl} Take 1 [facility] (B-12 5-13 Tablet by [facility] ge [place]) 08:22: mouth of 09 daily. Medicin e alprazolam 2021-0 Yes .5mg Take 0.5 [place] [facility] (XANAX) 0.5 5-13 mg by [place] MG tablet 08:22: mouth of 09 nightly as Medicin needed for e Sleep. estrogens, 2021-0 Yes 1.25mg Take 1.25 [facility] conjugated, 5-13 mg by [place] (PREMARIN) 08:22: mouth of 1.25 MG 09 daily. Medicin tablet e montelukast 2021-0 Yes 10mg Take 10 mg [facility] (SINGULAIR) 5-13 by mouth [facility] 10 MG 08:22: daily. of tablet 09 Medicin e omeprazole 2021-0 Yes 40mg Take 40 mg [facility] (PRILOSEC) 5-13 by mouth [facility] 40 MG 08:22: daily. of capsule 09 Medicin e MAGNESIUM 2021-0 Yes 1{tbl} Take 1 [facility] [place] 5-13 Tablet by [place] 08:22: mouth of 09 daily. Medicin e acetaminoph 2021-0 Yes 1000mg Take 1,000 [facility] 5-13 mg by [place] (TYLENOL) 08:22: mouth as of 500 mg 09 needed for Medicin tablet Pain. e gabapentin 2021-0 Yes 300mg Take 300 [facility] (NEURONTIN) 5-13 mg by [place] 300 MG 08:22: mouth 3 of capsule 09 times Medicin daily. e oxybutynin 2-0 Yes 10mg Take 10 mg [facility] (DITROPAN-X 5-13 by mouth [facility] L) 10 MG CR 08:22: as needed. of tablet 09 Medicin e candesartan 2021-0 Yes 16mg Take 16 mg [facility] (ATACAND) 5-13 [facility] 16 MG 08:22: daily. of tablet 09 Medicin e Cyanocobala 2021-0 Yes 1{tbl} Take 1 [facility] (B-12 5-06 Tablet by [facility] ge [place]) 09:45: mouth of 41 daily. Medicin e alprazolam 2021-0 Yes .5mg Take 0.5 [place] [facility] (XANAX) 0.5 5-06 mg by [place] MG tablet 09:45: mouth of 41 nightly as Medicin needed for e Sleep. estrogens, 2021-0 Yes 1.25mg Take 1.25 [facility] conjugated, 5-06 mg by [place] (PREMARIN) 09:45: mouth of 1.25 MG 41 daily. Medicin tablet e montelukast 2021-0 Yes 10mg Take 10 mg [facility] (SINGULAIR) 5-06 by mouth [facility] 10 MG 09:45: daily. of tablet 41 Medicin e omeprazole 2021-0 Yes 40mg Take 40 mg [facility] (PRILOSEC) 5-06 by mouth [facility] 40 MG 09:45: daily. of capsule 41 Medicin e MAGNESIUM 2021-0 Yes 1{tbl} Take 1 [facility] [place] 5-06 Tablet by [facility] 09:45: mouth of 41 daily. Medicin e acetaminoph 2021-0 Yes 1000mg Take 1,000 [facility] 5-06 mg by [place] (TYLENOL) 09:45: mouth as of 500 mg 41 needed for Medicin tablet Pain. e gabapentin 2021-0 Yes 300mg Take 300 [facility] (NEURONTIN) 5-06 mg by [place] 300 MG 09:45: mouth 3 of capsule 41 times Medicin daily. e oxybutynin 2021-0 Yes 10mg Take 10 mg [facility] (DITROPAN-X 5-06 by mouth [facility] L) 10 MG CR 09:45: as needed. of tablet 41 Medicin e candesartan 2021-0 Yes 16mg Take 16 mg [facility] (ATACAND) 5-06 by mouth [facility] 16 MG 09:45: daily. of tablet 41 Medicin e Cyanocobala 2022-0 Yes 1{tbl} Take 1 [facility] (B-12 5-06 Tablet by [facility] ge [place]) 09:45: mouth of 41 daily. Medicin e alprazolam 0 Yes .5mg Take 0.5 [place] [facility] (XANAX) 0.5 5-06 mg by [place] MG tablet 09:45: mouth of 41 nightly as Medicin needed for e Sleep. estrogens, 0 Yes 1.25mg Take 1.25 [facility] conjugated, 5-06 mg by [facility] (PREMARIN) 09:45: mouth of 1.25 MG 41 daily. Medicin tablet e montelukast 0 Yes 10mg Take 10 mg [facility] (SINGULAIR) 5-06 by mouth [facility] 10 MG 09:45: daily. of tablet 41 Medicin e omeprazole 0 Yes 40mg Take 40 mg [facility] (PRILOSEC) 5-06 by mouth [facility] 40 MG 09:45: daily. of capsule 41 Medicin e MAGNESIUM 0 Yes 1{tbl} Take 1 [facility] [place] 5-06 Tablet by [facility] 09:45: mouth of 41 daily. Medicin e acetaminoph 0 Yes 1000mg Take 1,000 [facility] 5-06 mg by [place] (TYLENOL) 09:45: mouth as of 500 mg 41 needed for Medicin tablet Pain. e gabapentin 0 Yes 300mg Take 300 [facility] (NEURONTIN) 5-06 mg by [place] 300 MG 09:45: mouth 3 of capsule 41 times Medicin daily. e oxybutynin 0 Yes 10mg Take 10 mg [facility] (DITROPAN-X 5-06 by mouth [facility] L) 10 MG CR 09:45: as needed. of tablet 41 Medicin e candesartan 0 Yes 16mg Take 16 mg [facility] (ATACAND) 5-06 by mouth [facility] 16 MG 09:45: daily. of tablet 41 Medicin e Eplerenone 0 Yes 1{tbl} Take 1 [place] [facility] 25 MG TABS 5-06 Tablet by [facility] 00:00: mouth of 00 daily. Medicin e Eplerenone 2021-0 Yes 1{tbl} Take 1 [place] [facility] 25 MG TABS 5-06 Tablet by [facility] 00:00: mouth of 00 daily. Medicin e Eplerenone 2-0 Yes 1{tbl} Take 1 [place] [facility] 25 MG TABS 5-06 Tablet by [facility] 00:00: mouth of 00 daily. Medicin e Eplerenone 2-0 Yes 1{tbl} Take 1 [place] [facility] 25 MG TABS 5-06 Tablet by [facility] 00:00: mouth of 00 daily. Medicin e Eplerenone 2-0 Yes 1{tbl} Take 1 [place] [facility] 25 MG TABS 5-06 Tablet by [facility] 00:00: mouth of 00 daily. Medicin e Eplerenone 2-0 Yes 1{tbl} Take 1 [place] [facility] 25 MG TABS 5-06 Tablet by [facility] 00:00: mouth of 00 daily. Medicin e Eplerenone 2-0 Yes 1{tbl} Take 1 [place] [facility] 25 MG TABS 5-06 Tablet by [facility] 00:00: mouth of 00 daily. Medicin e Eplerenone 2-0 Yes 1{tbl} Take 1 [place] [facility] 25 MG TABS 5-06 Tablet by [facility] 00:00: mouth of 00 daily. Medicin e Eplerenone 2021-0 Yes 1{tbl} Take 1 [place] [facility] 25 MG TABS 5-06 Tablet by [facility] 00:00: mouth of 00 daily. Medicin e Eplerenone 2-0 Yes 1{tbl} Take 1 [place] [facility] 25 MG TABS 5-06 Tablet by [facility] 00:00: mouth of 00 daily. Medicin e Eplerenone 2-0 Yes 1{tbl} Take 1 [place] [facility] 25 MG TABS 5-06 Tablet by [facility] 00:00: mouth of 00 daily. Medicin e Eplerenone 2-0 Yes 1{tbl} Take 1 [place] [facility] 25 MG TABS 5-06 Tablet by [facility] 00:00: mouth of 00 daily. Medicin e Eplerenone 2-0 Yes 1{tbl} Take 1 [place] [facility] 25 MG TABS 5-06 Tablet by [facility] 00:00: mouth of 00 daily. Medicin e Eplerenone 2-0 Yes 1{tbl} Take 1 [place] [facility] 25 MG TABS 5-06 Tablet by [facility] 00:00: mouth of 00 daily. Medicin e Eplerenone Yes 1{tbl} Take 1 [place] [facility] 25 MG TABS 5-06 Tablet by [facility] 00:00: mouth of 00 daily. Medicin e Eplerenone 0 Yes 1{tbl} Take 1 [place] [facility] 25 MG TABS 5-06 Tablet by [facility] 00:00: mouth of 00 daily. Medicin e ethambutol 2021- No 1200mg Take 3 [facility] (MYAMBUTOL) 07-28 05-28 Tablets by [facility] 400 MG 00:00: 04:59 mouth of tablet 00 :00 every Medicin Monday, e Monday, Monday for 30 days. azithromyci 2021-2021- No 500mg Take 1 [facility] 07-28-28 Tablet by [place] (ZITHROMAX) 00:00: 04:59 mouth of 500 MG 00 :00 every Medicin tablet Monday, e Monday, Monday for 30 days. moxifloxaci 2021- No 400mg Take 1 [facility] (AVELOX) 07-28-28 Tablet by [facility] 400 MG 00:00: 04:59 mouth of tablet 00 :00 daily for Medicin 30 days. e ethambutol 2021- No 1200mg Take 3 [facility] (MYAMBUTOL) 07-28 05-28 Tablets by [facility] 400 MG 00:00: 04:59 mouth of tablet 00 :00 every Medicin Monday, e Monday, Monday for 30 days. azithromyci 2021-0 2021- No 500mg Take 1 [facility] 07-28 05-28 Tablet by [place] (ZITHROMAX) 00:00: 04:59 mouth of 500 MG 00 :00 every Medicin tablet Monday, e Monday, Monday for 30 days. moxifloxaci 2021-2021- No 400mg Take 1 [facility] (AVELOX) 07-28 05-28 Tablet by [facility] 400 MG 00:00: 04:59 mouth of tablet 00 :00 daily for Medicin 30 days. e ethambutol 2021-0 2021- No 1200mg Take 3 [facility] (MYAMBUTOL) 07-28- Tablets by [facility] 400 MG 00:00: 04:59 mouth of tablet 00 :00 every Medicin Monday, e Monday, Monday for 30 days. azithromyci 2021- No 500mg Take 1 [facility] n 07-28- Tablet by [place] (ZITHROMAX) 00:00: 04:59 mouth of 500 MG 00 :00 every Medicin tablet Monday, e Monday, Monday for 30 days. moxifloxaci 2021- No 400mg Take 1 [facility] (AVELOX) 07-28 Tablet by [facility] 400 MG 00:00: 04:59 mouth of tablet 00 :00 daily for Medicin 30 days. e ethambutol 2021- No 1200mg Take 3 [facility] (MYAMBUTOL) 07-28 Tablets by [facility] 400 MG 00:00: 04:59 mouth of tablet 00 :00 every Medicin Monday, e Monday, Monday for 30 days. azithromyci 2021- No 500mg Take 1 [facility] 07-28 Tablet by [place] (ZITHROMAX) 00:00: 04:59 mouth of 500 MG 00 :00 every Medicin tablet Monday, e Monday, Monday for 30 days. moxifloxaci 2021-2021- No 400mg Take 1 [facility] (AVELOX) 07-28- Tablet by [facility] 400 MG 00:00: 04:59 mouth of tablet 00 :00 daily for Medicin 30 days. e fluconazole 2021-0 2021- No 200mg Take 1 [facility] (DIFLUCAN) 07-28-12 Tablet by [facility] 200 MG 00:00: 04:59 mouth of tablet 00 :00 daily for Medicin 14 days. e fluconazole 2021-0 2021- No 200mg Take 1 [facility] (DIFLUCAN) 07-28-12 Tablet by [facility] 200 MG 00:00: 04:59 mouth of tablet 00 :00 daily for Medicin 14 days. e Cyanocobala 2021- Yes 1{tbl} Take 1 [facility] min (B-12 4-22 Tablet by [facility] ge [place]) 09:43: mouth of 29 daily. Medicin e alprazolam 0 Yes .5mg Take 0.5 [place] (XANAX) 0.5 4-22 mg by [place] MG tablet 09:43: mouth of 29 nightly as Medicin needed for e Sleep. estrogens, 0 Yes 1.25mg Take 1.25 [facility] conjugated, 4-22 mg by [facility] (PREMARIN) 09:43: mouth of 1.25 MG 29 daily. Medicin tablet e montelukast 0 Yes 10mg Take 10 mg [facility] (SINGULAIR) 4-22 by mouth [facility] 10 MG 09:43: daily. of tablet 29 Medicin e omeprazole 0 Yes 40mg Take 40 mg [facility] (PRILOSEC) 4-22 by mouth [facility] 40 MG 09:43: daily. of capsule 29 Medicin e MAGNESIUM Yes 1{tbl} Take 1 [facility] OR 4-22 Tablet by [facility] 09:43: mouth of 29 daily. Medicin e acetaminoph Yes 1000mg Take 1,000 [facility] en 4-22 mg by [place] (TYLENOL) 09:43: mouth as of 500 mg 29 needed for Medicin tablet Pain. e gabapentin Yes 300mg Take 300 [facility] (NEURONTIN) 4-22 mg by [place] 300 MG 09:43: mouth 3 of capsule 29 times Medicin daily. e oxybutynin 0 Yes 10mg Take 10 mg [facility] (DITROPAN-X 4-22 by mouth [facility] L) 10 MG CR 09:43: as needed. of tablet 29 Medicin e Cyanocobala 0 Yes 1{tbl} Take 1 [facility] (B-12 4-22 Tablet by [facility] OR) 09:43: mouth of 29 daily. Medicin e alprazolam 0 Yes .5mg Take 0.5 [place] [facility] (XANAX) 0.5 4-22 mg by [place] MG tablet 09:43: mouth of 29 nightly as Medicin needed for e Sleep. estrogens, 0 Yes 1.25mg Take 1.25 [facility] conjugated, 4-22 mg by [place] (PREMARIN) 09:43: mouth of 1.25 MG 29 daily. Medicin tablet e montelukast 2-0 Yes 10mg Take 10 mg [facility] (SINGULAIR) 4-22 by mouth [facility] 10 MG 09:43: daily. of tablet 29 Medicin e omeprazole 2-0 Yes 40mg Take 40 mg [facility] (PRILOSEC) 4-22 by mouth [facility] 40 MG 09:43: daily. of capsule 29 Medicin e MAGNESIUM 2-0 Yes 1{tbl} Take 1 [facility] OR 4-22 Tablet by [place] 09:43: mouth of 29 daily. Medicin e acetaminoph 2021-0 Yes 1000mg Take 1,000 [facility] en 4-22 mg by [place] (TYLENOL) 09:43: mouth as of 500 mg 29 needed for Medicin tablet Pain. e gabapentin 2021-0 Yes 300mg Take 300 [facility] (NEURONTIN) 4-22 mg by [place] 300 MG 09:43: mouth 3 of capsule 29 times Medicin daily. e oxybutynin 2-0 Yes 10mg Take 10 mg [facility] (DITROPAN-X 4-22 by mouth [facility] L) 10 MG CR 09:43: as needed. of tablet 29 Medicin e busPIRone 2-0 Yes 5mg Take 1 [facility] (BUSPAR) 5 4-22 Tablet by [facility] MG tablet 00:00: mouth two of 00 times Medicin daily. e duloxetine 2022-0 Yes 60mg Take 1 [facility] (CYMBALTA) 4-22 capsule by [facility] 60 MG 00:00: mouth of capsule 00 daily. Medicin e busPIRone 2022-0 Yes 5mg Take 1 [facility] (BUSPAR) 5 4-22 Tablet by [facility] MG tablet 00:00: mouth two of 00 times Medicin daily. e duloxetine 2022-0 Yes 60mg Take 1 [facility] (CYMBALTA) 4-22 capsule by [facility] 60 MG 00:00: mouth of capsule 00 daily. Medicin e busPIRone 2022-0 Yes 5mg Take 1 [facility] (BUSPAR) 5 4-22 Tablet by [facility] MG tablet 00:00: mouth two of 00 times Medicin daily. e duloxetine 2022-0 Yes 60mg Take 1 [facility] (CYMBALTA) 4-22 capsule by [facility] 60 MG 00:00: mouth of capsule 00 daily. Medicin e busPIRone 2022-0 Yes 5mg Take 1 [facility] (BUSPAR) 5 4-22 Tablet by [facility] MG tablet 00:00: mouth two of 00 times Medicin daily. e duloxetine 2022-0 Yes 60mg Take 1 [facility] (CYMBALTA) 4-22 capsule by [facility] 60 MG 00:00: mouth of capsule 00 daily. Medicin e busPIRone 2022-0 Yes 5mg Take 1 [facility] (BUSPAR) 5 4-22 Tablet by [facility] MG tablet 00:00: mouth two of 00 times Medicin daily. e duloxetine 2022-0 Yes 60mg Take 1 [facility] (CYMBALTA) 4-22 capsule by [facility] 60 MG 00:00: mouth of capsule 00 daily. Medicin e busPIRone 2022-0 Yes 5mg Take 1 [facility] (BUSPAR) 5 4-22 Tablet by [facility] MG tablet 00:00: mouth two of 00 times Medicin daily. e duloxetine 2022-0 Yes 60mg Take 1 [facility] (CYMBALTA) 4-22 capsule by [facility] 60 MG 00:00: mouth of capsule 00 daily. Medicin e busPIRone 2022-0 Yes 5mg Take 1 [facility] (BUSPAR) 5 4-22 Tablet by [facility] MG tablet 00:00: mouth two of 00 times Medicin daily. e duloxetine 2022-0 Yes 60mg Take 1 [facility] (CYMBALTA) 4-22 capsule by [facility] 60 MG 00:00: mouth of capsule 00 daily. Medicin e busPIRone 2022-0 Yes 5mg Take 1 [facility] (BUSPAR) 5 4-22 Tablet by [facility] MG tablet 00:00: mouth two of 00 times Medicin daily. e duloxetine 2022-0 Yes 60mg Take 1 [facility] (CYMBALTA) 4-22 capsule by [facility] 60 MG 00:00: mouth of capsule 00 daily. Medicin e busPIRone 2022-0 Yes 5mg Take 1 [facility] (BUSPAR) 5 4-22 Tablet by [facility] MG tablet 00:00: mouth two of 00 times Medicin daily. e duloxetine 2022-0 Yes 60mg Take 1 [facility] (CYMBALTA) 4-22 capsule by [facility] 60 MG 00:00: mouth of capsule 00 daily. Medicin e duloxetine 2022-0 Yes 60mg Take 1 [facility] (CYMBALTA) 4-22 capsule by [facility] 60 MG 00:00: mouth of capsule 00 daily. Medicin e duloxetine 2022-0 Yes 60mg Take 1 [facility] (CYMBALTA) 4-22 capsule by [facility] 60 MG 00:00: mouth of capsule 00 daily. Medicin e duloxetine 2022-0 Yes 60mg Take 1 [facility] (CYMBALTA) 4-22 capsule by [facility] 60 MG 00:00: mouth of capsule 00 daily. Medicin e duloxetine 2022-0 Yes 60mg Take 1 [facility] (CYMBALTA) 4-22 capsule by [facility] 60 MG 00:00: mouth of capsule 00 daily. Medicin e duloxetine 2-0 Yes 60mg Take 1 [facility] (CYMBALTA) 4-22 capsule by [facility] 60 MG 00:00: mouth of capsule 00 daily. Medicin e duloxetine 2022-0 Yes 60mg Take 1 [facility] (CYMBALTA) 4-22 capsule by [facility] 60 MG 00:00: mouth of capsule 00 daily. Medicin e duloxetine 2022-0 Yes 60mg Take 1 [facility] (CYMBALTA) 4-22 capsule by [facility] 60 MG 00:00: mouth of capsule 00 daily. Medicin e duloxetine 2-0 Yes 60mg Take 1 [facility] (CYMBALTA) 4-22 capsule by [facility] 60 MG 00:00: mouth of capsule 00 daily. Medicin e busPIRone 2-0 2022- No 5mg Take 1 [facility] (BUSPAR) 5 07-23- Tablet by [facility] MG tablet 00:00: 00:00 mouth two of 00 :00 times Medicin daily. e busPIRone 2022-0 2022- No 5mg Take 1 [facility] (BUSPAR) 5 -22 10- Tablet by [facility] MG tablet 00:00: 00:00 mouth two of 00 :00 times Medicin daily. e cyclobenzap 2021- No [id number] 5mg Take 1 [facility] rine 4-22 05-23 Tablet by [place] ([facility]) 00:00: 04:59 mouth 3 of 5 MG tablet 00 :00 times Medicin daily as e needed for Pain for up to 30 days. cyclobenzap 2021- No [id number] 5mg Take 1 [facility] rine 4- 05-23 Tablet by [place] ([facility]) 00:00: 04:59 mouth 3 of 5 MG tablet 00 :00 times Medicin daily as e needed for Pain for up to 30 days. cyclobenzap 2021-0 2021- No [id number] 5mg Take 1 [facility] rine 4-22 05-23 Tablet by [place] ([facility]) 00:00: 04:59 mouth 3 of 5 MG tablet 00 :00 times Medicin daily as e needed for Pain for up to 30 days. cyclobenzap 0 2021- No [id number] 5mg Take 1 [facility] rine 4- 05-23 Tablet by [place] ([facility]) 00:00: 04:59 mouth 3 of 5 MG tablet 00 :00 times Medicin daily as e needed for Pain for up to 30 days. cyclobenzap 2021- No [id number] 5mg Take 1 [facility] rine 4-22 05-23 Tablet by [place] ([facility]) 00:00: 04:59 mouth 3 of 5 MG tablet 00 :00 times Medicin daily as e needed for Pain for up to 30 days. verapamil 2021-0 Yes TAKE ONE [facility] (CALAN-SR) 4-19 TABLET BY [facility] 240 MG CR 00:00: MOUTH of tablet 00 EVERY DAY Medicin e verapamil 2-0 Yes TAKE ONE [facility] (CALAN-SR) 4-19 TABLET BY [facility] 240 MG CR 00:00: MOUTH of tablet 00 EVERY DAY Medicin e verapamil 2022-0 Yes TAKE ONE [facility] (CALAN-SR) 4-19 TABLET BY [facility] 240 MG CR 00:00: MOUTH of tablet 00 EVERY DAY Medicin e verapamil 2022-0 Yes TAKE ONE [facility] (CALAN-SR) 4-19 TABLET BY [facility] 240 MG CR 00:00: MOUTH of tablet 00 EVERY DAY Medicin e verapamil 0 Yes TAKE ONE [facility] (CALAN-SR) 4-19 TABLET BY [facility] 240 MG CR 00:00: MOUTH of tablet 00 EVERY DAY Medicin e verapamil 2021-0 Yes TAKE ONE [facility] (CALAN-SR) 4-19 TABLET BY [facility] 240 MG CR 00:00: MOUTH of tablet 00 EVERY DAY Medicin e verapamil 2021-0 Yes TAKE ONE [facility] (CALAN-SR) 4-19 TABLET BY [facility] 240 MG CR 00:00: MOUTH of tablet 00 EVERY DAY Medicin e verapamil 2021-0 Yes TAKE ONE [facility] (CALAN-SR) 4-19 TABLET BY [facility] 240 MG CR 00:00: MOUTH of tablet 00 EVERY DAY Medicin e verapamil 2021-0 Yes TAKE ONE [facility] (CALAN-SR) 4-19 TABLET BY [facility] 240 MG CR 00:00: MOUTH of tablet 00 EVERY DAY Medicin e verapamil 0 Yes TAKE ONE [facility] (CALAN-SR) 4-19 TABLET BY [facility] 240 MG CR 00:00: MOUTH of tablet 00 EVERY DAY Medicin e verapamil 0 Yes TAKE ONE [facility] (CALAN-SR) 4-19 TABLET BY [facility] 240 MG CR 00:00: MOUTH of tablet 00 EVERY DAY Medicin e verapamil 0 2021- No TAKE ONE [place] [facility] (CALAN-SR) 4-19 07-29 TABLET BY [facility] 240 MG CR 00:00: 00:00 MOUTH of tablet 00 :00 EVERY DAY Medicin e lovastatin 2021-0 Yes 20mg Take 1 [facility] (MEVACOR) 4-13 Tablet by [facility] 20 MG 00:00: mouth of tablet 00 every Medicin evening. e nicotine 2021-0 Yes 1{patch Place 1 [place] [facility] (NICODERM 4-13 } Patch onto [facility] CQ) 14 00:00: the skin of MG/24HR 00 every 24 Medicin patch hours. e lovastatin 2021-0 Yes 20mg Take 1 [facility] (MEVACOR) 4-13 Tablet by [facility] 20 MG 00:00: mouth of tablet 00 every Medicin evening. e nicotine 2021-0 Yes 1{patch Place 1 [place] [facility] (NICODERM 4-13 } Patch onto [facility]) 14 00:00: the skin of MG/24HR 00 every 24 Medicin patch hours. e lovastatin 2022-0 Yes 20mg Take 1 [facility] (MEVACOR) 4-13 Tablet by [facility] 20 MG 00:00: mouth of tablet 00 every Medicin evening. e nicotine 2022-0 Yes 1{patch Place 1 [place] [facility] (NICODERM 4-13 } Patch onto [facility]) 14 00:00: the skin of MG/24HR 00 every 24 Medicin patch hours. e lovastatin 2022-0 Yes 20mg Take 1 [facility] (MEVACOR) 4-13 Tablet by [facility] 20 MG 00:00: mouth of tablet 00 every Medicin evening. e nicotine 2022-0 Yes 1{patch Place 1 [place] [facility] (NICODERM 4-13 } Patch onto [facility]) 14 00:00: the skin of MG/24HR 00 every 24 Medicin patch hours. e lovastatin 2022-0 Yes 20mg Take 1 [facility] (MEVACOR) 4-13 Tablet by [facility] 20 MG 00:00: mouth of tablet 00 every Medicin evening. e nicotine 2022-0 Yes 1{patch Place 1 [place] [facility] (NICODERM 4-13 } Patch onto [facility]) 14 00:00: the skin of MG/24HR 00 every 24 Medicin patch hours. e lovastatin 2022-0 Yes 20mg Take 1 [facility] (MEVACOR) 4-13 Tablet by [facility] 20 MG 00:00: mouth of tablet 00 every Medicin evening. e nicotine 2022-0 Yes 1{patch Place 1 [place] [facility] (NICODERM 4-13 } Patch onto [facility]) 14 00:00: the skin of MG/24HR 00 every 24 Medicin patch hours. e lovastatin 2022-0 Yes 20mg Take 1 [facility] (MEVACOR) 4-13 Tablet by [facility] 20 MG 00:00: mouth of tablet 00 every Medicin evening. e nicotine 2022-0 Yes 1{patch Place 1 [place] [facility] (NICODERM 4-13 } Patch onto [facility]) 14 00:00: the skin of MG/24HR 00 every 24 Medicin patch hours. e lovastatin 2022-0 Yes 20mg Take 1 [facility] (MEVACOR) 4-13 Tablet by [facility] 20 MG 00:00: mouth of tablet 00 every Medicin evening. e nicotine 2022-0 Yes 1{patch Place 1 [place] [facility] (NICODERM 4-13 } Patch onto [facility]) 14 00:00: the skin of MG/24HR 00 every 24 Medicin patch hours. e lovastatin 2022-0 Yes 20mg Take 1 [facility] (MEVACOR) 4-13 Tablet by [facility] 20 MG 00:00: mouth of tablet 00 every Medicin evening. e nicotine 2022-0 Yes 1{patch Place 1 [place] [facility] (NICODERM 4-13 } Patch onto [facility]) 14 00:00: the skin of MG/24HR 00 every 24 Medicin patch hours. e lovastatin 2022-0 Yes 20mg Take 1 [facility] (MEVACOR) 4-13 Tablet by [facility] 20 MG 00:00: mouth of tablet 00 every Medicin evening. e nicotine 2022-0 Yes 1{patch Place 1 [place] [facility] (NICODERM 4-13 } Patch onto [facility]) 14 00:00: the skin of MG/24HR 00 every 24 Medicin patch hours. e lovastatin 2022-0 Yes 20mg Take 1 [facility] (MEVACOR) 4-13 Tablet by [facility] 20 MG 00:00: mouth of tablet 00 every Medicin evening. e nicotine 2022-0 Yes 1{patch Place 1 [place] [facility] (NICODERM 4-13 } Patch onto [facility]) 14 00:00: the skin of MG/24HR 00 every 24 Medicin patch hours. e lovastatin 2022-0 Yes 20mg Take 1 [facility] (MEVACOR) 4-13 Tablet by [facility] 20 MG 00:00: mouth of tablet 00 every Medicin evening. e nicotine 2022-0 Yes 1{patch Place 1 [place] [facility] (NICODERM 4-13 } Patch onto [facility]) 14 00:00: the skin of MG/24HR 00 every 24 Medicin patch hours. e nicotine 2022-0 Yes 1{patch Place 1 [place] [facility] (NICODERM 4-13 } Patch onto [facility]) 14 00:00: the skin of MG/24HR 00 every 24 Medicin patch hours. e nicotine 2022-0 Yes 1{patch Place 1 [place] [facility] (NICODERM 4-13 } Patch onto [facility] ege CQ) 14 00:00: the skin of MG/24HR 00 every 24 Medicin patch hours. e nicotine 2021-0 Yes 1{patch Place 1 [place] [facility] (NICODERM 4-13 } Patch onto [facility] CQ) 14 00:00: the skin of MG/24HR 00 every 24 Medicin patch hours. e nicotine 2021-0 Yes 1{patch Place 1 [place] [facility] (NICODERM 4-13 } Patch onto [facility] CQ) 14 00:00: the skin of MG/24HR 00 every 24 Medicin patch hours. e nicotine 2021-0 Yes 1{patch Place 1 [place] [facility] (NICODERM 4-13 } Patch onto [facility] ege CQ) 14 00:00: the skin of MG/24HR 00 every 24 Medicin patch hours. e nicotine 2021-0 Yes 1{patch Place 1 [place] [facility] (NICODERM 4-13 } Patch onto [facility] ege CQ) 14 00:00: the skin of MG/24HR 00 every 24 Medicin patch hours. e nicotine 2021-0 Yes 1{patch Place 1 [place] [facility] (NICODERM 4-13 } Patch onto [facility] ege ) 14 00:00: the skin of MG/24HR 00 every 24 Medicin patch hours. e lovastatin 2021- No 20mg Take 1 [facility] (MEVACOR) 4-13 07-29 Tablet by [facility] 20 MG 00:00: 00:00 mouth of tablet 00 :00 every Medicin evening. e Cyanocobala Yes 1{tbl} Take 1 [facility] (B-12 4- Tablet by [facility]) 09:01: mouth of 17 daily. Medicin e alprazolam 0 Yes .5mg Take 0.5 [place] [facility] (XANAX) 0.5 4-01 mg by [place] MG tablet 09:01: mouth of 17 nightly as Medicin needed for e Sleep. estrogens, Yes 1.25mg Take 1.25 [facility] conjugated, 4-01 mg by [place] (PREMARIN) 09:01: mouth of 1.25 MG 17 daily. Medicin tablet e montelukast Yes 10mg Take 10 mg [facility] (SINGULAIR) 4-01 by mouth [facility] 10 MG 09:01: daily. of tablet 17 Medicin e omeprazole 2021-0 Yes 40mg Take 40 mg [facility] (PRILOSEC) 4-01 by mouth [facility] 40 MG 09:01: daily. of capsule 17 Medicin e MAGNESIUM 2021-0 Yes 1{tbl} Take 1 [facility] OR 4-01 Tablet by [place] 09:01: mouth of 17 daily. Medicin e acetaminoph 2021-0 Yes 1000mg Take 1,000 [facility] en 4-01 mg by [place] (TYLENOL) 09:01: mouth as of 500 mg 17 needed for Medicin tablet Pain. e gabapentin 2021-0 Yes 300mg Take 300 [facility] (NEURONTIN) 4-01 mg by [place] 300 MG 09:01: mouth 3 of capsule 17 times Medicin daily. e oxybutynin 2021-0 Yes 10mg Take 10 mg [facility] (DITROPAN-X 4- by mouth [facility] L) 10 MG CR 09:01: as needed. of tablet 17 Medicin e Cyanocobala 2021-0 Yes 1{tbl} Take 1 [facility] (B-12 4-01 Tablet by [facility] ge OR) 09:01: mouth of 17 daily. Medicin e alprazolam 2021-0 Yes .5mg Take 0.5 [place] [facility] (XANAX) 0.5 4-01 mg by [place] MG tablet 09:01: mouth of 17 nightly as Medicin needed for e Sleep. estrogens, 2021-0 Yes 1.25mg Take 1.25 [facility] conjugated, 4-01 mg by [place] (PREMARIN) 09:01: mouth of 1.25 MG 17 daily. Medicin tablet e montelukast 2021-0 Yes 10mg Take 10 mg [facility] (SINGULAIR) 4-01 by mouth [facility] 10 MG 09:01: daily. of tablet 17 Medicin e omeprazole 2021-0 Yes 40mg Take 40 mg [facility] (PRILOSEC) 4-01 by mouth [facility] 40 MG 09:01: daily. of capsule 17 Medicin e MAGNESIUM 2021-0 Yes 1{tbl} Take 1 [facility] OR 4-01 Tablet by [place] 09:01: mouth of 17 daily. Medicin e acetaminoph 2021-0 Yes 1000mg Take 1,000 [facility] en 4-01 mg by [place] (TYLENOL) 09:01: mouth as of 500 mg 17 needed for Medicin tablet Pain. e gabapentin 2021-0 Yes 300mg Take 300 [facility] (NEURONTIN) 4-01 mg by [facility] 300 MG 09:01: mouth 3 of capsule 17 times Medicin daily. e oxybutynin 2021-0 Yes 10mg Take 10 mg [facility] (DITROPAN-X 4-01 by mouth [facility] L) 10 MG CR 09:01: as needed. of tablet 17 Medicin e cyclobenzap 2021- 2022- No [id number] 5mg Take 1 [facility] rine 4-04 07- Tablet by [place] (FLEXERIL) 00:00: 04:59 mouth 3 of 5 MG tablet 00 :00 times Medicin daily as e needed for Pain for up to 30 days. cyclobenzap 2021-0 2- No [id number] 5mg Take 1 [facility] rine 4-04 07- Tablet by [place] (FLEXERIL) 00:00: 04:59 mouth 3 of 5 MG tablet 00 :00 times Medicin daily as e needed for Pain for up to 30 days. cyclobenzap 2021-0 2022- No [id number] 5mg Take 1 [facility] rine 4-04 06- Tablet by [place] (FLEXERIL) 00:00: 00:00 mouth 3 of 5 MG tablet 00 :00 times Medicin daily as e needed for Pain for up to 30 days. cyclobenzap 2021-0 2022- No [id number] 5mg Take 1 [facility] rine 4-04 06-22 Tablet by [place] (FLEXERIL) 00:00: 00:00 mouth 3 of 5 MG tablet 00 :00 times Medicin daily as e needed for Pain for up to 30 days. miconazole 2021-0 2022- No 200mg Place 1 [facility] (MICONAZOLE 3-31 -04 Suppositor [facility] 3) 200 MG 00:00: 04:59 y of vaginal 00 :00 vaginally Medicin suppository nightly e for 3 days. levothyroxi 2021-0 Yes 100ug Take 1 [place] [facility] ne 3-24 Tablet by [place] (SYNTHROID) 00:00: mouth of 100 MCG 00 daily. Medicin tablet e spironolact 2022-0 Yes 25mg Take 1 [facility] one 3-24 Tablet by [facility] (ALDACTONE) 00:00: mouth of 25 MG 00 daily. Medicin tablet e levothyroxi 2022-0 Yes 100ug Take 1 [place] [facility] ne 3-24 Tablet by [facility] (SYNTHROID) 00:00: mouth of 100 MCG 00 daily. Medicin tablet e spironolact 2022-0 Yes 25mg Take 1 [facility] one 3-24 Tablet by [facility] (ALDACTONE) 00:00: mouth of 25 MG 00 daily. Medicin tablet e levothyroxi 2022-0 Yes 100ug Take 1 [place] [facility] ne 3-24 Tablet by [facility] (SYNTHROID) 00:00: mouth of 100 MCG 00 daily. Medicin tablet e spironolact 2022-0 Yes 25mg Take 1 [facility] one 3-24 Tablet by [facility] (ALDACTONE) 00:00: mouth of 25 MG 00 daily. Medicin tablet e levothyroxi 2022-0 Yes 100ug Take 1 [place] [facility] ne 3-24 Tablet by [facility] (SYNTHROID) 00:00: mouth of 100 MCG 00 daily. Medicin tablet e spironolact 2022-0 Yes 25mg Take 1 [facility] one 3-24 Tablet by [facility] (ALDACTONE) 00:00: mouth of 25 MG 00 daily. Medicin tablet e levothyroxi 2022-0 Yes 100ug Take 1 [place] [facility] ne 3-24 Tablet by [facility] (SYNTHROID) 00:00: mouth of 100 MCG 00 daily. Medicin tablet e levothyroxi 2022-0 Yes 100ug Take 1 [place] [facility] ne 3-24 Tablet by [facility] (SYNTHROID) 00:00: mouth of 100 MCG 00 daily. Medicin tablet e levothyroxi 2022-0 Yes 100ug Take 1 [place] [facility] ne 3-24 Tablet by [facility] (SYNTHROID) 00:00: mouth of 100 MCG 00 daily. Medicin tablet e levothyroxi 2022-0 Yes 100ug Take 1 [place] [facility] ne 3-24 Tablet by [facility] (SYNTHROID) 00:00: mouth of 100 MCG 00 daily. Medicin tablet e levothyroxi 2022-0 Yes 100ug Take 1 [place] [facility] ne 3-24 Tablet by [facility] (SYNTHROID) 00:00: mouth of 100 MCG 00 daily. Medicin tablet e levothyroxi 2021-0 Yes 100ug Take 1 [place] [facility] ne 3-24 Tablet by [facility] (SYNTHROID) 00:00: mouth of 100 MCG 00 daily. Medicin tablet e levothyroxi 2021-0 Yes 100ug Take 1 [place] [facility] ne 3-24 Tablet by [facility] (SYNTHROID) 00:00: mouth of 100 MCG 00 daily. Medicin tablet e levothyroxi 2021-0 Yes 100ug Take 1 [place] [facility] ne 3-24 Tablet by [facility] (SYNTHROID) 00:00: mouth of 100 MCG 00 daily. Medicin tablet e levothyroxi 2021-0 Yes 100ug Take 1 [place] [facility] ne 3-24 Tablet by [facility] (SYNTHROID) 00:00: mouth of 100 MCG 00 daily. Medicin tablet e levothyroxi 2021-0 Yes 100ug Take 1 [place] [facility] ne 3-24 Tablet by [place] (SYNTHROID) 00:00: mouth of 100 MCG 00 daily. Medicin tablet e levothyroxi 2021-0 Yes 100ug Take 1 [place] [facility] ne 3-24 Tablet by [place] (SYNTHROID) 00:00: mouth of 100 MCG 00 daily. Medicin tablet e levothyroxi 2021-0 Yes 100ug Take 1 [place] [facility] ne 3-24 Tablet by [facility] (SYNTHROID) 00:00: mouth of 100 MCG 00 daily. Medicin tablet e levothyroxi 2021-0 Yes 100ug Take 1 [place] [facility] ne 3-24 Tablet by [place] (SYNTHROID) 00:00: mouth of 100 MCG 00 daily. Medicin tablet e levothyroxi 2021-0 Yes 100ug Take 1 [place] [facility] ne 3-24 Tablet by [place] (SYNTHROID) 00:00: mouth of 100 MCG 00 daily. Medicin tablet e levothyroxi 2021-0 Yes 100ug Take 1 [place] [facility] ne 3-24 Tablet by [facility] (SYNTHROID) 00:00: mouth of 100 MCG 00 daily. Medicin tablet e levothyroxi 2-0 Yes 100ug Take 1 [place] [facility] ne 3-24 Tablet by [facility] (SYNTHROID) 00:00: mouth of 100 MCG 00 daily. Medicin tablet e spironolact 2-0 2- No 25mg Take 1 [place] [facility] one 3-24 05-06 Tablet by [place] (ALDACTONE) 00:00: 00:00 mouth of 25 MG 00 :00 daily. Medicin tablet e candesartan 2021-0 Yes 16mg Take 1 [facility] (ATACAND) 3-18 Tablet by [facility] 16 MG 00:00: mouth of tablet 00 daily. Medicin e candesartan 2-0 Yes 16mg Take 1 [facility] (ATACAND) 3-18 Tablet by [facility] 16 MG 00:00: mouth of tablet 00 daily. Medicin e candesartan 2021-0 Yes 16mg Take 1 [facility] (ATACAND) 3-18 Tablet by [facility] 16 MG 00:00: mouth of tablet 00 daily. Medicin e candesartan 2021-0 Yes 16mg Take 1 [facility] (ATACAND) 3-18 Tablet by [facility] 16 MG 00:00: mouth of tablet 00 daily. Medicin e spironolact 2021-0 Yes 50mg Take 50 mg [facility] one 3-11 by mouth [place] (ALDACTONE) 08:29: daily. of 50 MG 54 Medicin tablet e Cyanocobala 0 Yes 1{tbl} Take 1 [facility] (B-12 3-11 Tablet by [facility] ge OR) 08:28: mouth of 48 daily. Medicin e alprazolam 2021-0 Yes .5mg Take 0.5 [place] [facility] (XANAX) 0.5 3-11 mg by [place] MG tablet 08:28: mouth of 48 nightly as Medicin needed for e Sleep. estrogens, 2021-0 Yes 1.25mg Take 1.25 [facility] conjugated, 3-11 mg by [place] (PREMARIN) 08:28: mouth of 1.25 MG 48 daily. Medicin tablet e montelukast 2021-0 Yes 10mg Take 10 mg [facility] (SINGULAIR) 3-11 by mouth [facility] 10 MG 08:28: daily. of tablet 48 Medicin e omeprazole 2021-0 Yes 40mg Take 40 mg [facility] (PRILOSEC) 3-11 by mouth [facility] 40 MG 08:28: daily. of capsule 48 Medicin e MAGNESIUM 2021-0 Yes 1{tbl} Take 1 [facility] [place] 3-11 Tablet by [place] 08:28: mouth of 48 daily. Medicin e acetaminoph 2021-0 Yes 1000mg Take 1,000 [facility] 3-11 mg by [place] (TYLENOL) 08:28: mouth as of 500 mg 48 needed for Medicin tablet Pain. e gabapentin 2021-0 Yes 300mg Take 300 [facility] (NEURONTIN) 3-11 mg by [place] 300 MG 08:28: mouth 3 of capsule 48 times Medicin daily. e oxybutynin 2-0 Yes 10mg Take 10 mg [facility] (DITROPAN-X 3-11 by mouth [facility] L) 10 MG CR 08:28: as needed. of tablet 48 Medicin e Cyanocobala 2021-0 Yes 1{tbl} Take 1 [facility] (B-12 3-11 Tablet by [facility] ge [place]) 08:28: mouth of 48 daily. Medicin e alprazolam 2021-0 Yes .5mg Take 0.5 [place] [facility] (XANAX) 0.5 3-11 mg by [place] MG tablet 08:28: mouth of 48 nightly as Medicin needed for e Sleep. estrogens, 2021-0 Yes 1.25mg Take 1.25 [facility] conjugated, 3-11 mg by [place] (PREMARIN) 08:28: mouth of 1.25 MG 48 daily. Medicin tablet e montelukast 2021-0 Yes 10mg Take 10 mg [facility] (SINGULAIR) 3-11 by mouth [facility] 10 MG 08:28: daily. of tablet 48 Medicin e omeprazole 2021-0 Yes 40mg Take 40 mg [facility] (PRILOSEC) 3-11 by mouth [facility] 40 MG 08:28: daily. of capsule 48 Medicin e MAGNESIUM 2021-0 Yes 1{tbl} Take 1 [facility] [place] 3-11 Tablet by [place] 08:28: mouth of 48 daily. Medicin e acetaminoph 2021-0 Yes 1000mg Take 1,000 [facility] 3-11 mg by [place] (TYLENOL) 08:28: mouth as of 500 mg 48 needed for Medicin tablet Pain. e gabapentin 2-0 Yes 300mg Take 300 [facility] (NEURONTIN) 3-11 mg by [place] 300 MG 08:28: mouth 3 of capsule 48 times Medicin daily. e oxybutynin 2-0 Yes 10mg Take 10 mg [facility] (DITROPAN-X 3-11 by mouth Suad ege L) 10 MG CR 08:28: as needed. of tablet 48 Medicin e prochlorper 2022-0 Yes 10mg Take 1 [facility] or azine 3-11 Tablet by [employer] (COMPAZINE) 00:00: mouth of 10 MG 00 every 6 Medicin tablet hours as e needed. prochlorper 2022-0 Yes 10mg Take 1 [facility] or azine 3-11 Tablet [facility] [employer] ([facility]INE) 00:00: mouth of 10 MG 00 every 6 Medicin tablet hours as e needed. prochlorper 2022-0 Yes 10mg Take 1 [facility] azine 3-11 Tablet [facility] (COMPAZINE) 00:00: mouth of 10 MG 00 every 6 Medicin tablet hours as e needed. prochlorper 2022-0 Yes 10mg Take 1 [facility] azine 3-11 Tablet by [facility] (COMPAZINE) 00:00: mouth of 10 MG 00 every 6 Medicin tablet hours as e needed. prochlorper 2022-0 Yes 10mg Take 1 [facility] azine 3-11 Tablet by [facility] (COMPAZINE) 00:00: mouth of 10 MG 00 every 6 Medicin tablet hours as e needed. prochlorper 2-0 Yes 10mg Take 1 [facility]ine 3-11 Tablet by [facility] (COMPAZINE) 00:00: mouth of 10 MG 00 every 6 Medicin tablet hours as e needed. prochlorper 2022-0 Yes 10mg Take 1 [facility]ine 3-11 Tablet by [facility] (COMPAZINE) 00:00: mouth of 10 MG 00 every 6 Medicin tablet hours as e needed. prochlorper 2022-0 Yes 10mg Take 1 [facility]ine 3-11 Tablet [facility] (COMPAZINE) 00:00: mouth of 10 MG 00 every 6 Medicin tablet hours as e needed. prochlorper 2022-0 Yes 10mg Take 1 [facility] 3-11 Tablet [facility] (COMPAZINE) 00:00: mouth of 10 MG 00 every 6 Medicin tablet hours as e needed. prochlorper 2022-0 Yes 10mg Take 1 [facility] 3-11 Tablet by [facility] (COMPAZINE) 00:00: mouth of 10 MG 00 every 6 Medicin tablet hours as e needed. prochlorper 2022-0 Yes 10mg Take 1 [facility] 3-11 Tablet by [facility] (COMPAZINE) 00:00: mouth of 10 MG 00 every 6 Medicin tablet hours as e needed. prochlorper 2-0 Yes 10mg Take 1 [facility]ine 3-11 Tablet by [facility] (COMPAZINE) 00:00: mouth of 10 MG 00 every 6 Medicin tablet hours as e needed. prochlorper 2-0 Yes 10mg Take 1 [facility] 3-11 Tablet [facility] (COMPAZINE) 00:00: mouth of 10 MG 00 every 6 Medicin tablet hours as e needed. prochlorper 2-0 Yes 10mg Take 1 [facility] 3-11 Tablet [facility] (COMPAZINE) 00:00: mouth of 10 MG 00 every 6 Medicin tablet hours as e needed. prochlorper 2-0 Yes 10mg Take 1 [facility] 3-11 Tablet [facility] (COMPAZINE) 00:00: mouth of 10 MG 00 every 6 Medicin tablet hours as e needed. prochlorper 2-0 Yes 10mg Take 1 [facility] 3-11 Tablet by [facility] (COMPAZINE) 00:00: mouth of 10 MG 00 every 6 Medicin tablet hours as e needed. prochlorper 2-0 Yes 10mg Take 1 [facility] 3-11 Tablet [facility] (COMPAZINE) 00:00: mouth of 10 MG 00 every 6 Medicin tablet hours as e needed. prochlorper 2-0 Yes 10mg Take 1 [facility] 3-11 Tablet [facility] (COMPAZINE) 00:00: mouth of 10 MG 00 every 6 Medicin tablet hours as e needed. prochlorper 2-0 Yes 10mg Take 1 [facility] 3-11 Tablet by [facility] (COMPAZINE) 00:00: mouth of 10 MG 00 every 6 Medicin tablet hours as e needed. prochlorper 2-0 Yes 10mg Take 1 [facility] 3-11 Tablet [facility] (COMPAZINE) 00:00: mouth of 10 MG 00 every 6 Medicin tablet hours as e needed. prochlorper 2022-0 Yes 10mg Take 1 [facility] 3-11 Tablet [facility] (COMPAZINE) 00:00: mouth of 10 MG 00 every 6 Medicin tablet hours as e needed. candesartan 2021-0 Yes [id number] TAKE 1 [facility] (ATACAND) 3-04 TABLET [facility] [employer] 32 MG 00:00: MOUTH of tablet 00 EVERY DAY Medicin e candesartan 2021-0 Yes [id number] TAKE 1 [facility] (ATACAND) 3-04 TABLET BY [facility] 32 MG 00:00: MOUTH of tablet 00 EVERY DAY Medicin e azithromyci 2021-2021- No 500mg Take 1 [facility] -[facility] 07- Tablet by [place] (ZITHROMAX) 00:00: 04:59 mouth 3 of 500 MG 00 :00 times Medicin tablet weekly for e 30 days. moxifloxaci 2021-2021- No 400mg Take 1 [facility] (AVELOX) -05 07- Tablet by [facility] 400 MG 00:00: 04:59 mouth of tablet 00 :00 daily for Medicin 30 days. e ethambutol 2021-2021- No 400mg Take 1 [place] [facility] (MYAMBUTOL) 06-02 Tablet by [facility] 400 MG 00:00: 04:59 mouth 3 of tablet 00 :00 times Medicin weekly for e 30 days. azithromyci 2021-2021- No 500mg Take 1 [facility] -05 07- Tablet by [place] (ZITHROMAX) 00:00: 04:59 mouth 3 of 500 MG 00 :00 times Medicin tablet weekly for e 30 days. moxifloxaci 2021-2021- No 400mg Take 1 [facility] (AVELOX) 06-02- Tablet by [facility] 400 MG 00:00: 04:59 mouth of tablet 00 :00 daily for Medicin 30 days. e ethambutol 2021-0 202- No 400mg Take 1 [place] [facility] (MYAMBUTOL) -05 07- Tablet by [facility] 400 MG 00:00: 04:59 mouth 3 of tablet 00 :00 times Medicin weekly for e 30 days. azithromyci 2021-0 202- No 500mg Take 1 [facility] -05 07- Tablet by [place] (ZITHROMAX) 00:00: 04:59 mouth 3 of 500 MG 00 :00 times Medicin tablet weekly for e 30 days. moxifloxaci 2021-0 2021- No 400mg Take 1 [facility] (AVELOX) 06-02 Tablet by [facility] 400 MG 00:00: 04:59 mouth of tablet 00 :00 daily for Medicin 30 days. e ethambutol 2021-0 2021- No 400mg Take 1 [place] [facility] (MYAMBUTOL) 06-02 Tablet by [facility] 400 MG 00:00: 04:59 mouth 3 of tablet 00 :00 times Medicin weekly for e 30 days. Cyanocobala Yes Take by [place] [facility] min (B-12 2-23 mouth. [facility] OR) 10:14: of 30 Medicin e alprazolam Yes .5mg Take 0.5 [place] [facility] (XANAX) 0.5 2-23 mg by [place] MG tablet 10:14: mouth of 30 nightly as Medicin needed for e Sleep. estrogens, 0 Yes 1.25mg Take 1.25 [facility] conjugated, 2-23 mg by [place] (PREMARIN) 10:14: mouth of 1.25 MG 30 daily. Medicin tablet e montelukast Yes 10mg Take 10 mg [facility] (SINGULAIR) 2-23 by mouth [facility] 10 MG 10:14: daily. of tablet 30 Medicin e omeprazole 0 Yes 40mg Take 40 mg [facility] (PRILOSEC) 2-23 by mouth [facility] [employer] 40 MG 10:14: daily. of capsule 30 Medicin e MAGNESIUM 0 Yes Take by [facility] r [place] 2-23 mouth two [facility] 10:14: times of 30 daily. Medicin e acetaminoph 0 Yes 1000mg Take 1,000 [facility] en 2-23 mg by [place] (TYLENOL) 10:14: mouth as of 500 mg 30 needed for Medicin tablet Pain. e gabapentin 0 Yes 300mg Take 300 [facility] (NEURONTIN) 2-23 mg by [place] 300 MG 10:14: mouth 3 of capsule 30 times Medicin daily. e oxybutynin 0 Yes 10mg Take 10 mg [facility] (DITROPAN-X 2-23 by mouth [facility]) 10 MG CR 10:14: as needed. of tablet 30 Medicin e furosemide 2021-0 Yes 20mg Take 20 mg [facility] (LASIX) 20 2-23 by mouth [facility] MG tablet 10:14: daily. of 30 Medicin e Cyanocobala 2021-0 Yes Take by [place] [facility] min (B-12 2-23 mouth. [facility] OR) 10:14: of 30 Medicin e alprazolam 2021-0 Yes .5mg Take 0.5 [place] [facility] (XANAX) 0.5 2-23 mg by [place] MG tablet 10:14: mouth of 30 nightly as Medicin needed for e Sleep. estrogens, 2021-0 Yes 1.25mg Take 1.25 [facility] conjugated, 2-23 mg by [place] (PREMARIN) 10:14: mouth of 1.25 MG 30 daily. Medicin tablet e montelukast 2021-0 Yes 10mg Take 10 mg [facility] (SINGULAIR) 2-23 by mouth [facility] 10 MG 10:14: daily. of tablet 30 Medicin e omeprazole 0 Yes 40mg Take 40 mg [facility] (PRILOSEC) 2-23 by mouth [facility] 40 MG 10:14: daily. of capsule 30 Medicin e MAGNESIUM 0 Yes Take by [facility] r [place] 2-23 mouth two [facility] 10:14: times of 30 daily. Medicin e acetaminoph 2021-0 Yes 1000mg Take 1,000 [facility] en 2-23 mg by [place] (TYLENOL) 10:14: mouth as of 500 mg 30 needed for Medicin tablet Pain. e gabapentin 2021-0 Yes 300mg Take 300 [facility] (NEURONTIN) 2-23 mg by [place] 300 MG 10:14: mouth 3 of capsule 30 times Medicin daily. e oxybutynin 2021-0 Yes 10mg Take 10 mg [facility] (DITROPAN-X 2-23 by mouth [facility]) 10 MG CR 10:14: as needed. of tablet 30 Medicin e furosemide 2021-0 Yes 20mg Take 20 mg [facility] (LASIX) 20 2-23 by mouth [facility] MG tablet 10:14: daily. of 30 Medicin e gabapentin 2021-0 Yes 300mg Take 300 [facility] (NEURONTIN) 2-18 mg by [place] 300 MG 08:23: mouth 3 of capsule 11 times Medicin daily. e oxybutynin 2021-0 Yes 10mg Take 10 mg [facility] (DITROPAN-X 2-18 by mouth [facility]) 10 MG CR 08:23: as needed. of tablet 11 Medicin e furosemide 2021-0 Yes 20mg Take 20 mg [facility] (LASIX) 20 2-18 by mouth [facility] MG tablet 08:23: daily. of 11 Medicin e Cyanocobala 2021-0 Yes Take by [place] [facility] min (B-12 2-18 mouth. [facility] OR) 08:17: of 51 Medicin e alprazolam 2021-0 Yes .5mg Take 0.5 [place] [facility] (XANAX) 0.5 2-18 mg by [place] MG tablet 08:17: mouth of 51 nightly as Medicin needed for e Sleep. estrogens, 2021-0 Yes 1.25mg Take 1.25 [facility] conjugated, 2-18 mg by [place] (PREMARIN) 08:17: mouth of 1.25 MG 51 daily. Medicin tablet e montelukast 0 Yes 10mg Take 10 mg [facility] (SINGULAIR) 2-18 by mouth [facility] 10 MG 08:17: daily. of tablet 51 Medicin e omeprazole 0 Yes 40mg Take 40 mg [facility] (PRILOSEC) 2-18 by mouth [facility] 40 MG 08:17: daily. of capsule 51 Medicin e MAGNESIUM 0 Yes Take by [facility] [place] 2-18 mouth [facility] 08:17: times of 51 daily. Medicin e acetaminoph 0 Yes 1000mg Take 1,000 [facility] 2-18 mg by [facility] (TYLENOL) 08:17: mouth as of 500 mg 51 needed for Medicin tablet Pain. e Cyanocobala 2021-0 Yes Take by [place] [facility] min (B-12 1-28 mouth. [facility] OR) 08:21: of 41 Medicin e alprazolam 2021-0 Yes .5mg Take 0.5 [place] [facility] (XANAX) 0.5 1-28 mg by [place] MG tablet 08:21: mouth of 41 nightly as Medicin needed for e Sleep. estrogens, 2021-0 Yes 1.25mg Take 1.25 [facility] conjugated, 1-28 mg by [facility] (PREMARIN) 08:21: mouth of 1.25 MG 41 daily. Medicin tablet e montelukast 2021-0 Yes 10mg Take 10 mg [facility] (SINGULAIR) -28 by mouth [facility] 10 MG 08:21: daily. of tablet 41 Medicin e omeprazole 2021-0 Yes 40mg Take 40 mg [facility] (PRILOSEC) -28 by mouth [facility] 40 MG 08:21: daily. of capsule 41 Medicin e MAGNESIUM 2021-0 Yes Take by [facility] [place] 04-30 mouth [facility] 08:21: times of 41 daily. Medicin e acetaminoph 2021-0 Yes 1000mg Take 1,000 [facility] 1-28 mg by [place] (TYLENOL) 08:21: mouth as of 500 mg 41 needed for Medicin tablet Pain. e Cyanocobala 2021-0 Yes Take by [place] [facility] min (B-12 - mouth. [facility] OR) 08:21: of 41 Medicin e alprazolam 2021-0 Yes .5mg Take 0.5 [place] [facility] (XANAX) 0.5 1-28 mg by [facility] MG tablet 08:21: mouth of 41 nightly as Medicin needed for e Sleep. estrogens, 2021-0 Yes 1.25mg Take 1.25 [facility] conjugated, 1-28 mg by [place] (PREMARIN) 08:21: mouth of 1.25 MG 41 daily. Medicin tablet e montelukast 2021-0 Yes 10mg Take 10 mg [facility] (SINGULAIR) 04-30 by mouth [facility] 10 MG 08:21: daily. of tablet 41 Medicin e omeprazole 2021-0 Yes 40mg Take 40 mg [facility] (PRILOSEC) - by mouth [facility] 40 MG 08:21: daily. of capsule 41 Medicin e MAGNESIUM 2021-0 Yes Take by [facility] - mouth [facility] 08:21: times of 41 daily. Medicin e acetaminoph 2-0 Yes 1000mg Take 1,000 [facility] 1-28 mg by [place] (TYLENOL) 08:21: mouth as of 500 mg 41 needed for Medicin tablet Pain. e duloxetine 2-0 Yes 60mg Take 1 [facility] (CYMBALTA) -28 capsule by [facility] 60 MG 00:00: mouth of capsule 00 daily. Medicin e duloxetine 2-0 Yes 60mg Take 1 [facility] (CYMBALTA) 1-28 capsule by [facility] 60 MG 00:00: mouth of capsule 00 daily. Medicin e duloxetine 2-0 Yes 60mg Take 1 [facility] (CYMBALTA) 1-28 capsule by [facility] 60 MG 00:00: mouth of capsule 00 daily. Medicin e duloxetine 2-0 Yes 60mg Take 1 [facility] (CYMBALTA) 1-28 capsule by [facility] 60 MG 00:00: mouth of capsule 00 daily. Medicin e duloxetine 2-0 Yes 60mg Take 1 [facility] (CYMBALTA) 1-28 capsule by [facility] 60 MG 00:00: mouth of capsule 00 daily. Medicin e duloxetine 2-0 Yes 60mg Take 1 [facility] (CYMBALTA) 1-28 capsule by [facility] 60 MG 00:00: mouth of capsule 00 daily. Medicin e duloxetine 2-0 Yes 60mg Take 1 [facility] (CYMBALTA) 1-28 capsule by [facility] 60 MG 00:00: mouth of capsule 00 daily. Medicin e duloxetine 2-0 Yes 60mg Take 1 [facility] (CYMBALTA) 1-28 capsule by [facility] 60 MG 00:00: mouth of capsule 00 daily. Medicin e duloxetine 2021-0 2022- No 60mg Take 1 [facility] (CYMBALTA) -07-23 capsule by [facility] 60 MG 00:00: 00:00 mouth of capsule 00 :00 daily. Medicin e duloxetine 2021-0 2022- No 60mg Take 1 [facility] (CYMBALTA) -29 07- capsule by [facility] 60 MG 00:00: 00:00 mouth of capsule 00 :00 daily. Medicin e Axitinib 1 2021-2021- No [id number] 3mg Take 3 mg [facility] MG TABS 04-30 by mouth [facility] 00:00: 05:59 two times of 00 :00 daily for Medicin 30 days. e Axitinib 1 2021-2021- No [id number] 3mg Take 3 mg [facility] MG TABS 04-30 by mouth [place] 00:00: 05:59 two times of 00 :00 daily for Medicin 30 days. e Axitinib 1 2021- No [id number] 3mg Take 3 mg [facility] MG TABS 04-30 by mouth [place] 00:00: 05:59 two times of 00 :00 daily for Medicin 30 days. e Axitinib 1 2021- No [id number] 3mg Take 3 mg [facility] MG TABS 04-30 by mouth [place] 00:00: 05:59 two times of 00 :00 daily for Medicin 30 days. e levofloxaci 2021- No [id number] 750mg Take 1 [facility] n 04-27 Tablet by [place] ([facility] 00:00: 05:59 mouth of 750 MG 00 :00 daily for Medicin tablet 7 days. e levofloxaci 2021- No [id number] 750mg Take 1 [facility] n 04-27 Tablet by [place] (LEVAQUIN) 00:00: 05:59 mouth of 750 MG 00 :00 daily for Medicin tablet 7 days. e Potassium 2021- No 1{tbl} Take 1 [facility] 99 MG TABS 04-20- Tablet by [facility] leg 08:49: 00:00 mouth of 35 :00 daily. Medicin e Cyanocobala Yes Take by [place] [facility] min (B-12 1-18 mouth. [place] OR) 07:58: of 32 Medicin e alprazolam Yes .5mg Take 0.5 [facility] [facility] (XANAX) 0.5 1-18 mg by [place] MG tablet 07:58: mouth of 32 nightly as Medicin needed for e Sleep. estrogens, Yes 1.25mg Take 1.25 [facility] conjugated, 1-18 mg by [place] (PREMARIN) 07:58: mouth of 1.25 MG 32 daily. Medicin tablet e montelukast Yes 10mg Take 10 mg [facility] (SINGULAIR) 1-18 by mouth [facility] 10 MG 07:58: daily. of tablet 32 Medicin e omeprazole 2022-0 Yes 40mg Take 40 mg [facility] (PRILOSEC) 1-18 by mouth [facility] 40 MG 07:58: daily. of capsule 32 Medicin e MAGNESIUM 2-0 Yes Take by [facility] [place] 1-18 mouth [facility] 07:58: times of 32 daily. Medicin e acetaminoph 2-0 Yes 1000mg Take 1,000 [facility] en 1-18 mg by [place] (TYLENOL) 07:58: mouth as of 500 mg 32 needed for Medicin tablet Pain. e spironolact 2-0 Yes 25mg Take 1 [facility] one 1-18 Tablet by [place] (ALDACTONE) 00:00: mouth of 25 MG 00 daily. Medicin tablet e levothyroxi 2021-0 Yes 100ug Take 1 [facility] [facility] ne 1-18 Tablet by [place] (SYNTHROID) 00:00: mouth of 100 MCG 00 daily. Medicin tablet e dexamethaso 2-0 Yes Take at 11 [facility] ne 1 MG 1-18 pm on the [place] TABS 00:00: night of 00 before lab Medicin draw next e day at 8 am - and only after you do the salivary cortisol testing spironolact 2-0 Yes 25mg Take 1 [facility] one 1-18 Tablet by [place] (ALDACTONE) 00:00: mouth of 25 MG 00 daily. Medicin tablet e levothyroxi 2-0 Yes 100ug Take 1 [place] [facility] ne 1-18 Tablet by [place] (SYNTHROID) 00:00: mouth of 100 MCG 00 daily. Medicin tablet e dexamethaso 2-0 Yes Take at 11 [facility] ne 1 MG 1-18 pm on the [place] TABS 00:00: night of 00 before lab Medicin draw next e day at 8 am - and only after you do the salivary cortisol testing spironolact 2-0 Yes 25mg Take 1 [facility] one 1-18 Tablet by [place] (ALDACTONE) 00:00: mouth of 25 MG 00 daily. Medicin tablet e levothyroxi 2-0 Yes 100ug Take 1 [place] [facility] ne 1-18 Tablet by [place] (SYNTHROID) 00:00: mouth of 100 MCG 00 daily. Medicin tablet e dexamethaso 2-0 Yes Take at 11 [facility] ne 1 MG 1-18 pm on the [place] TABS 00:00: night of 00 before lab Medicin draw next e day at 8 am - and only after you do the salivary cortisol testing spironolact 2022-0 Yes 25mg Take 1 [facility] one 1-18 Tablet by [place] (ALDACTONE) 00:00: mouth of 25 MG 00 daily. Medicin tablet e levothyroxi 2022-0 Yes 100ug Take 1 [place] [facility] ne 1-18 Tablet by [place] (SYNTHROID) 00:00: mouth of 100 MCG 00 daily. Medicin tablet e dexamethaso 2022-0 Yes Take at 11 [facility] 1 MG 1-18 pm on the [facility] TABS 00:00: night of 00 before lab Medicin draw next e day at 8 am - and only after you do the salivary cortisol testing spironolact 2022-0 Yes 25mg Take 1 [facility] one 1-18 Tablet by [place] (ALDACTONE) 00:00: mouth of 25 MG 00 daily. Medicin tablet e levothyroxi 2022-0 Yes 100ug Take 1 [place] [facility] ne 1-18 Tablet by [place] (SYNTHROID) 00:00: mouth of 100 MCG 00 daily. Medicin tablet e dexamethaso 2022-0 Yes Take at 11 [facility] ne 1 MG 1-18 pm on the [place] TABS 00:00: night of 00 before lab Medicin draw next e day at 8 am - and only after you do the salivary cortisol testing spironolact 2022-0 Yes 25mg Take 1 [facility] one 1-18 Tablet by [place] (ALDACTONE) 00:00: mouth of 25 MG 00 daily. Medicin tablet e levothyroxi 2022-0 Yes 100ug Take 1 [facility] [facility] ne 1-18 Tablet by [place] (SYNTHROID) 00:00: mouth of 100 MCG 00 daily. Medicin tablet e dexamethaso 2022-0 Yes Take at 11 [facility] ne 1 MG 1-18 pm on the [facility] TABS 00:00: night of 00 before lab Medicin draw next e day at 8 am - and only after you do the salivary cortisol testing levothyroxi 2022-0 Yes 100ug Take 1 [place] [facility] ne 1-18 Tablet by [place] (SYNTHROID) 00:00: mouth of 100 MCG 00 daily. Medicin tablet e levothyroxi 2022-0 Yes 100ug Take 1 [place] [facility] ne 1-18 Tablet by [place] (SYNTHROID) 00:00: mouth of 100 MCG 00 daily. Medicin tablet e dexamethaso 2021-0 2021- No Take at 11 [facility] ne 1 MG 18 03-11 pm on the [facility] e TABS 00:00: 00:00 night of 00 :00 before lab Medicin draw next e day at 8 am - and only after you do the salivary cortisol testing escitalopra 2021-0 2021- No 20mg Take 20 mg [facility] (LEXAPRO) 04-09 by mouth [facility] 20 MG 08:55: 00:00 daily. of tablet 42 :00 Medicin e escitalopra 2021-0 2021- No 20mg Take 20 mg [facility] m (LEXAPRO) 04-09 by mouth [facility] 20 MG 08:55: 00:00 daily. of tablet 42 :00 Medicin e Cyanocobala 0 Yes Take by [facility] [facility] min (B-12 1-07 mouth. [facility] OR) 08:14: of 40 Medicin e alprazolam 0 Yes .5mg Take 0.5 [facility] [facility] (XANAX) 0.5 1-07 mg by [place] MG tablet 08:14: mouth of 40 nightly as Medicin needed for e Sleep. estrogens, 0 Yes 1.25mg Take 1.25 [facility] conjugated, 1-07 mg by [place] (PREMARIN) 08:14: mouth of 1.25 MG 40 daily. Medicin tablet e montelukast 0 Yes 10mg Take 10 mg [facility] (SINGULAIR) -07 by mouth [facility] 10 MG 08:14: daily. of tablet 40 Medicin e omeprazole 0 Yes 40mg Take 40 mg [facility] (PRILOSEC) -07 by mouth [facility] 40 MG 08:14: daily. of capsule 40 Medicin e MAGNESIUM 0 Yes Take by [facility] [place] 1-07 mouth two [facility] 08:14: times of 40 daily. Medicin e acetaminoph 0 Yes 1000mg Take 1,000 [facility] 1-07 mg by [facility] (TYLENOL) 08:14: mouth as of 500 mg 40 needed for Medicin tablet Pain. e Potassium 0 Yes 1{tbl} Take 1 [facility] 99 MG TABS 1-07 Tablet by [facility] 08:14: mouth of 40 daily. Medicin e Cyanocobala 2021-0 Yes Take by [place] [facility] min (B-12 1-07 mouth. [facility] OR) 08:14: of 40 Medicin e alprazolam 2021-0 Yes .5mg Take 0.5 [facility] [facility] (XANAX) 0.5 1-07 mg by [place] MG tablet 08:14: mouth of 40 nightly as Medicin needed for e Sleep. estrogens, 2021-0 Yes 1.25mg Take 1.25 [facility] conjugated, 1-07 mg by [place] (PREMARIN) 08:14: mouth of 1.25 MG 40 daily. Medicin tablet e montelukast 2021-0 Yes 10mg Take 10 mg [facility] (SINGULAIR) -07 by mouth [facility] 10 MG 08:14: daily. of tablet 40 Medicin e omeprazole 2021-0 Yes 40mg Take 40 mg [facility] (PRILOSEC) -07 by mouth [facility] 40 MG 08:14: daily. of capsule 40 Medicin e MAGNESIUM 2021-0 Yes Take by [facility] [place] 1-07 mouth two [facility] 08:14: times of 40 daily. Medicin e acetaminoph 2021-0 Yes 1000mg Take 1,000 [facility] 1-07 mg by [place] (TYLENOL) 08:14: mouth as of 500 mg 40 needed for Medicin tablet Pain. e Potassium 2021-0 Yes 1{tbl} Take 1 [facility] 99 MG TABS 1-07 Tablet by [facility] 08:14: mouth of 40 daily. Medicin e duloxetine 2021-0 Yes 30mg Take 1 [facility] (CYMBALTA) 1-07 capsule by [facility] 30 MG 00:00: mouth of capsule 00 daily. Medicin e duloxetine 2021-0 Yes 30mg Take 1 [facility] (CYMBALTA) 1-07 capsule by [facility] 30 MG 00:00: mouth of capsule 00 daily. Medicin e duloxetine 2-0 Yes 30mg Take 1 [facility] (CYMBALTA) 1-07 capsule by [facility] 30 MG 00:00: mouth of capsule 00 daily. Medicin e duloxetine 2021-0 Yes 30mg Take 1 [facility] (CYMBALTA) 1-07 capsule by [facility] 30 MG 00:00: mouth of capsule 00 daily. Medicin e duloxetine 0 Yes 30mg Take 1 [facility] (CYMBALTA) 1-07 capsule by [facility] 30 MG 00:00: mouth of capsule 00 daily. Medicin e duloxetine 0 Yes 30mg Take 1 [facility] (CYMBALTA) 1-07 capsule by [facility] 30 MG 00:00: mouth of capsule 00 daily. Medicin e duloxetine 0 Yes 30mg Take 1 [facility] (CYMBALTA) 1-07 capsule by [facility] 30 MG 00:00: mouth of capsule 00 daily. Medicin e escitalopra 2020-04 Yes 20mg Take 20 mg [facility] m (LEXAPRO) 2-13 by mouth [facility] 20 MG 09:56: daily. of tablet 03 Medicin e Cyanocobala 2020-04 Yes Take by [facility] [facility] (B-12 2-13 mouth. [facility] OR) 09:56: of 03 Medicin e alprazolam 2020-04 Yes .5mg Take 0.5 [facility] (XANAX) 0.5 2-13 mg by [place] MG tablet 09:56: mouth of 03 nightly as Medicin needed for e Sleep. estrogens, 2020-04 Yes 1.25mg Take 1.25 [facility] conjugated, 2-13 mg by [place] (PREMARIN) 09:56: mouth of 1.25 MG 03 daily. Medicin tablet e montelukast 2020-04 Yes 10mg Take 10 mg [facility] (SINGULAIR) 2-13 by mouth [facility] 10 MG 09:56: daily. of tablet 03 Medicin e omeprazole 2020-04 Yes 40mg Take 40 mg [facility] (PRILOSEC) 2-13 by mouth [facility] 40 MG 09:56: daily. of capsule 03 Medicin e MAGNESIUM 2020-04 Yes Take by [facility] [place] 2-13 mouth two [facility] 09:56: times of 03 daily. Medicin e acetaminoph 2020-04 Yes 1000mg Take 1,000 [facility] 2-13 mg by [place] (TYLENOL) 09:56: mouth as of 500 mg 03 needed for Medicin tablet Pain. e Potassium 2020-04 Yes 1{tbl} Take 1 [facility] 99 MG TABS 2-13 Tablet by [facility] 09:56: mouth of 03 daily. Medicin e escitalopra 2020-04 Yes 20mg Take 20 mg [facility] m (LEXAPRO) 2-10 by mouth [facility] 20 MG 13:43: daily. of tablet 47 Medicin e Cyanocobala 2020-04 Yes Take by [facility] [facility] (B-12 2-10 mouth. [facility] OR) 13:43: of 47 Medicin e alprazolam 2020-04 Yes .5mg Take 0.5 [facility] (XANAX) 0.5 2-10 mg by [place] MG tablet 13:43: mouth of 47 nightly as Medicin needed for e Sleep. estrogens, 2020-04 Yes 1.25mg Take 1.25 [facility] conjugated, 2-10 mg by [place] (PREMARIN) 13:43: mouth of 1.25 MG 47 daily. Medicin tablet e montelukast 2020-04 Yes 10mg Take 10 mg [facility] (SINGULAIR) 2-10 by mouth [facility] 10 MG 13:43: daily. of tablet 47 Medicin e omeprazole 2020-04 Yes 40mg Take 40 mg [facility] (PRILOSEC) 2-10 by mouth [facility] 40 MG 13:43: daily. of capsule 47 Medicin e MAGNESIUM 2020-04 Yes Take by [facility] [place] 2-10 mouth two [facility] 13:43: times of 47 daily. Medicin e acetaminoph 2020-04 Yes 1000mg Take 1,000 [facility] 2-10 mg by [place] (TYLENOL) 13:43: mouth as of 500 mg 47 needed for Medicin tablet Pain. e Potassium 2020-04 Yes 1{tbl} Take 1 [facility] 99 MG TABS 2-10 Tablet by [facility] 13:43: mouth of 47 daily. Medicin e escitalopra 2020-04 Yes 20mg Take 20 mg [facility] m (LEXAPRO) 2-10 by mouth [facility] 20 MG 08:12: daily. of tablet 05 Medicin e Cyanocobala 2020-04 Yes Take by [facility] (B-12 2-10 mouth. [place]) 08:12: of 05 Medicin e alprazolam 2020-04 Yes .5mg Take 0.5 [facility] (XANAX) 0.5 2-10 mg by [facility] MG tablet 08:12: mouth of 05 nightly as Medicin needed for e Sleep. estrogens, 2020-04 Yes 1.25mg Take 1.25 [facility] conjugated, 2-10 mg by [place] (PREMARIN) 08:12: mouth of 1.25 MG 05 daily. Medicin tablet e montelukast 2020-04 Yes 10mg Take 10 mg [facility] (SINGULAIR) 2-10 by mouth [facility] 10 MG 08:12: daily. of tablet 05 Medicin e omeprazole 2020-04 Yes 40mg Take 40 mg [facility] (PRILOSEC) 2-10 by mouth [facility] 40 MG 08:12: daily. of capsule 05 Medicin e MAGNESIUM 2020-04 Yes Take by [facility] [place] 2-10 mouth two [facility] 08:12: times of 05 daily. Medicin e acetaminoph 2020-04 Yes 1000mg Take 1,000 [facility] en 2-10 mg by [place] (TYLENOL) 08:12: mouth as of 500 mg 05 needed for Medicin tablet Pain. e Potassium 2020-04 Yes 1{tbl} Take 1 [facility] 99 MG TABS 2-10 Tablet by [facility] 08:12: mouth of 05 daily. Medicin e Levothyroxi 2020-04 Yes [id number] 75ug Take 75 [facility] ne Sodium 2-10 mcg by [place] 75 MCG CAPS 00:00: mouth of 00 daily. Medicin e Levothyroxi 2020-04 Yes [id number] 75ug Take 75 [facility] ne Sodium 2-10 mcg by [place] 75 MCG CAPS 00:00: mouth of 00 daily. Medicin e Levothyroxi 2020-04 Yes [id number] 75ug Take 75 [facility] ne Sodium 2-10 mcg by [place] 75 MCG CAPS 00:00: mouth of 00 daily. Medicin e Levothyroxi 2020-04 Yes [id number] 75ug Take 75 [facility] ne Sodium 2-10 mcg by [place] 75 MCG CAPS 00:00: mouth of 00 daily. Medicin e Levothyroxi 2020-04 Yes [id number] 75ug Take 75 [facility] ne Sodium 2-10 mcg by [place] 75 MCG CAPS 00:00: mouth of 00 daily. Medicin e Levothyroxi 2020-04- No [id number] 75ug Take 75 [facility] ne Sodium 2-10 01-18 mcg by [employer] 75 MCG CAPS 00:00: 00:00 mouth of 00 :00 daily. Medicin e clopidogrel 2020-04 Yes TAKE 1 [facility] (PLAVIX) 75 2-08 TABLET BY [facility] MG Tablet 00:00: MOUTH of 00 EVERY DAY Medicin e clopidogrel 2020-04 Yes TAKE 1 [facility] (PLAVIX) 75 2-08 TABLET BY [facility] MG Tablet 00:00: MOUTH of 00 EVERY DAY Medicin e clopidogrel 2020-04 Yes TAKE 1 [facility] (PLAVIX) 75 2-08 TABLET BY [facility] MG Tablet 00:00: MOUTH of 00 EVERY DAY Medicin e clopidogrel 2020-04 Yes TAKE 1 [facility] (PLAVIX) 75 2-08 TABLET BY [facility] MG Tablet 00:00: MOUTH of 00 EVERY DAY Medicin e clopidogrel 2020-04 Yes TAKE 1 [facility] (PLAVIX) 75 2-08 TABLET BY [facility] MG Tablet 00:00: MOUTH of 00 EVERY DAY Medicin e clopidogrel 2020-04 Yes TAKE 1 [facility] (PLAVIX) 75 2-08 TABLET BY [facility] MG Tablet 00:00: MOUTH of 00 EVERY DAY Medicin e clopidogrel 2020-04 Yes TAKE 1 [facility] (PLAVIX) 75 2-08 TABLET BY [facility] MG Tablet 00:00: MOUTH of 00 EVERY DAY Medicin e clopidogrel 2020-04 Yes TAKE 1 [facility] (PLAVIX) 75 2-08 TABLET BY [facility] MG Tablet 00:00: MOUTH of 00 EVERY DAY Medicin e clopidogrel 2020-04 Yes TAKE 1 [facility] (PLAVIX) 75 2-08 TABLET BY [facility] MG Tablet 00:00: MOUTH of 00 EVERY DAY Medicin e clopidogrel 2020-04 Yes TAKE 1 [facility] (PLAVIX) 75 2-08 TABLET BY [facility] MG Tablet 00:00: MOUTH of 00 EVERY DAY Medicin e clopidogrel 2020-04 Yes TAKE 1 [facility] (PLAVIX) 75 2-08 TABLET BY [facility] MG Tablet 00:00: MOUTH of 00 EVERY DAY Medicin e clopidogrel 2020-04 Yes TAKE 1 [facility] (PLAVIX) 75 2-08 TABLET BY [facility] MG Tablet 00:00: MOUTH of 00 EVERY DAY Medicin e clopidogrel 2020-04 Yes TAKE 1 [facility] (PLAVIX) 75 2-08 TABLET BY [facility] MG Tablet 00:00: MOUTH of 00 EVERY DAY Medicin e clopidogrel 2020-04 Yes TAKE 1 [facility] (PLAVIX) 75 2-08 TABLET BY [facility] MG Tablet 00:00: MOUTH of 00 EVERY DAY Medicin e clopidogrel 2020-04 Yes TAKE 1 [facility] (PLAVIX) 75 2-08 TABLET BY [facility] MG Tablet 00:00: MOUTH of 00 EVERY DAY Medicin e clopidogrel 2020-04 Yes TAKE 1 [facility] (PLAVIX) 75 2-08 TABLET BY [facility] MG Tablet 00:00: MOUTH of 00 EVERY DAY Medicin e clopidogrel 2020-04 Yes TAKE 1 [facility] (PLAVIX) 75 2-08 TABLET BY [facility] MG Tablet 00:00: MOUTH of 00 EVERY DAY Medicin e clopidogrel 2020-04 Yes TAKE 1 [facility] (PLAVIX) 75 2-08 TABLET BY [facility] MG Tablet 00:00: MOUTH of 00 EVERY DAY Medicin e clopidogrel 2020-04 Yes TAKE 1 [facility] (PLAVIX) 75 2-08 TABLET BY [facility] MG Tablet 00:00: MOUTH of 00 EVERY DAY Medicin e clopidogrel 2020-04 Yes TAKE 1 [facility] (PLAVIX) 75 2-08 TABLET BY [facility] MG Tablet 00:00: MOUTH of 00 EVERY DAY Medicin e clopidogrel 2020-04 Yes TAKE 1 [facility] (PLAVIX) 75 2-08 TABLET BY [facility] MG Tablet 00:00: MOUTH of 00 EVERY DAY Medicin e clopidogrel 2020-04 Yes TAKE 1 [facility] (PLAVIX) 75 2-08 TABLET BY [facility] MG Tablet 00:00: MOUTH of 00 EVERY DAY Medicin e clopidogrel 2020-04 Yes TAKE 1 [facility] (PLAVIX) 75 2-08 TABLET BY [facility] MG Tablet 00:00: MOUTH of 00 EVERY DAY Medicin e clopidogrel 2020-04 Yes TAKE 1 [facility] (PLAVIX) 75 2-08 TABLET BY [facility] MG Tablet 00:00: MOUTH of 00 EVERY DAY Medicin e clopidogrel 2020-04 Yes TAKE 1 [facility] (PLAVIX) 75 2-08 TABLET BY [facility] MG Tablet 00:00: MOUTH of 00 EVERY DAY Medicin e escitalopra 2020-04 Yes 20mg Take 20 mg [facility] (LEXAPRO) 04-21 by mouth [facility] 20 MG 08:25: daily. of tablet 53 Medicin e Cyanocobala 2020-04 Yes Take by [place] [facility] (B-12 - mouth. [employer] [place]) 08:25: of 53 Medicin e alprazolam 2020-04 Yes .5mg Take 0.5 [place] [facility] (XANAX) 0.5 1-19 mg by [facility] MG tablet 08:25: mouth of 53 nightly as Medicin needed for e Sleep. estrogens, 2020-04 Yes 1.25mg Take 1.25 [facility] conjugated, 1-19 mg by [facility] (PREMARIN) 08:25: mouth of 1.25 MG 53 daily. Medicin tablet e montelukast 2020-04 Yes 10mg Take 10 mg [facility] (SINGULAIR) 04-21 by mouth [facility] 10 MG 08:25: daily. of tablet 53 Medicin e omeprazole 2020-04 Yes 40mg Take 40 mg [facility] (PRILOSEC) 04-21 by mouth [facility] 40 MG 08:25: daily. of capsule 53 Medicin e MAGNESIUM 2020-04 Yes Take by [facility] [place] 04-21 mouth two [facility] 08:25: times of 53 daily. Medicin e acetaminoph 2020-04 Yes 1000mg Take 1,000 [facility] 1-19 mg by [place] (TYLENOL) 08:25: mouth as of 500 mg 53 needed for Medicin tablet Pain. e Potassium 2020-04 Yes 1{tbl} Take 1 [facility] 99 MG TABS -19 Tablet by [facility] 08:25: mouth of 53 daily. Medicin e escitalopra 2020-04 Yes 20mg Take 20 mg [facility] m (LEXAPRO) 04-21 by mouth [facility] 20 MG 08:25: daily. of tablet 53 Medicin e Cyanocobala 2020-04 Yes Take by [place] [facility] (B-12 - mouth. [place]) 08:25: of 53 Medicin e alprazolam 2020-04 Yes .5mg Take 0.5 [place] [facility] (XANAX) 0.5 1-19 mg by [place] MG tablet 08:25: mouth of 53 nightly as Medicin needed for e Sleep. estrogens, 2020-04 Yes 1.25mg Take 1.25 [facility] conjugated, 1-19 mg by [place] (PREMARIN) 08:25: mouth of 1.25 MG 53 daily. Medicin tablet e montelukast 2020-04 Yes 10mg Take 10 mg [facility] (SINGULAIR) 04-21 by mouth [facility] 10 MG 08:25: daily. of tablet 53 Medicin e omeprazole 2020-04 Yes 40mg Take 40 mg [facility] (PRILOSEC) 04-21 by mouth [facility] 40 MG 08:25: daily. of capsule 53 Medicin e MAGNESIUM 2020-04 Yes Take by [facility] [place] 04-21 mouth two [facility] 08:25: times of 53 daily. Medicin e acetaminoph 2020-04 Yes 1000mg Take 1,000 [facility] en 1-19 mg by [place] (TYLENOL) 08:25: mouth as of 500 mg 53 needed for Medicin tablet Pain. e Potassium 2020-04 Yes 1{tbl} Take 1 [facility] 99 MG TABS 04-21 Tablet by [facility] 08:25: mouth of 53 daily. Medicin e escitalopra 2020-04 Yes 20mg Take 20 mg [facility] (LEXAPRO) 04-11 by mouth [facility] 20 MG 10:04: daily. of tablet 01 Medicin e Cyanocobala 2020-04 Yes Take by [place] [facility] (B-12 04-11 mouth. [facility] [place]) 10:04: of 01 Medicin e alprazolam 2020-04 Yes .5mg Take 0.5 [place] [facility] (XANAX) 0.5 - mg by [place] MG tablet 10:04: mouth of 01 nightly as Medicin needed for e Sleep. estrogens, 2020-04 Yes 1.25mg Take 1.25 [facility] conjugated, 1-09 mg by [place] (PREMARIN) 10:04: mouth of 1.25 MG 01 daily. Medicin tablet e montelukast 2020-04 Yes 10mg Take 10 mg [facility] (SINGULAIR) 04-11 by mouth [facility] 10 MG 10:04: daily. of tablet 01 Medicin e omeprazole 2020-04 Yes 40mg Take 40 mg [facility] (PRILOSEC) 04-11 by mouth [facility] 40 MG 10:04: daily. of capsule 01 Medicin e MAGNESIUM 2020-04 Yes Take by [facility] [place] 1-09 mouth two [facility] 10:04: times of 01 daily. Medicin e acetaminoph 2020-04 Yes 1000mg Take 1,000 [facility] en 1-09 mg by [place] (TYLENOL) 10:04: mouth as of 500 mg 01 needed for Medicin tablet Pain. e Potassium 2020-04 Yes 1{tbl} Take 1 [facility] 99 MG TABS 1-09 Tablet by [facility] 10:04: mouth of 01 daily. Medicin e escitalopra 2020-04 Yes 20mg Take 20 mg [facility] m (LEXAPRO) 0-29 by mouth [facility] 20 MG 07:44: daily. of tablet 08 Medicin e Cyanocobala 2020-04 Yes Take by [place] [facility] (B-12 0-29 mouth. [facility] [place]) 07:44: of 08 Medicin e alprazolam 2020-04 Yes .5mg Take 0.5 [place] [facility] (XANAX) 0.5 0-29 mg by [place] MG tablet 07:44: mouth of 08 nightly as Medicin needed for e Sleep. estrogens, 2020-04 Yes 1.25mg Take 1.25 [facility] conjugated, 0-29 mg by [place] (PREMARIN) 07:44: mouth of 1.25 MG 08 daily. Medicin tablet e montelukast 2020-04 Yes 10mg Take 10 mg [facility] (SINGULAIR) 0-29 by mouth [facility] 10 MG 07:44: daily. of tablet 08 Medicin e omeprazole 2020-04 Yes 40mg Take 40 mg [facility] (PRILOSEC) 0-29 by mouth [facility] 40 MG 07:44: daily. of capsule 08 Medicin e MAGNESIUM 2020-04 Yes Take by [facility] [place] 0-29 mouth two [facility] 07:44: times of 08 daily. Medicin e acetaminoph 2020-04 Yes 1000mg Take 1,000 [facility] (EXTRA 0-29 mg by [place] STRENGTH 07:44: mouth as of PAIN 08 needed for Medicin RELIEF) 500 Pain. e mg tablet Potassium 2020-04 Yes 1{tbl} Take 1 [facility] 99 MG TABS 0-29 Tablet by [facility] 07:44: mouth of 08 daily. Medicin e escitalopra 2020-04 Yes 20mg Take 20 mg [facility] (LEXAPRO) 0-29 by mouth [facility] 20 MG 07:44: daily. of tablet 08 Medicin e Cyanocobala 2020-04 Yes Take by [place] [facility] (B-12 0-29 mouth. [facility] [place]) 07:44: of 08 Medicin e alprazolam 2020-04 Yes .5mg Take 0.5 [place] [facility] (XANAX) 0.5 0-29 mg by [facility] MG tablet 07:44: mouth of 08 nightly as Medicin needed for e Sleep. estrogens, 2020-04 Yes 1.25mg Take 1.25 [facility] conjugated, 0-29 mg by [employer] (PREMARIN) 07:44: mouth of 1.25 MG 08 daily. Medicin tablet e montelukast 2020-04 Yes 10mg Take 10 mg [facility] (SINGULAIR) 0-29 by mouth [facility] 10 MG 07:44: daily. of tablet 08 Medicin e omeprazole 2020-04 Yes 40mg Take 40 mg [facility] (PRILOSEC) 0-29 by mouth [facility] 40 MG 07:44: daily. of capsule 08 Medicin e MAGNESIUM 2020-04 Yes Take by [facility] [place] 0-29 mouth two [facility] 07:44: times of 08 daily. Medicin e acetaminoph 2020-04 Yes 1000mg Take 1,000 [facility] en (EXTRA 0-29 mg by [employer] STRENGTH 07:44: mouth as of PAIN 08 needed for Medicin RELIEF) 500 Pain. e mg tablet Potassium 2020-04 Yes 1{tbl} Take 1 [facility] 99 MG TABS 0-29 Tablet by [facility] 07:44: mouth of 08 daily. Medicin e escitalopra 2020-04 Yes 20mg Take 20 mg [facility] m (LEXAPRO) 0-08 by mouth [facility] 20 MG 08:56: daily. of tablet 21 Medicin e Cyanocobala 2020-04 Yes Take by [place] [facility] (B-12 0-08 mouth. [facility] [place]) 08:56: of 21 Medicin e alprazolam 2020-04 Yes .5mg Take 0.5 [place] [facility] (XANAX) 0.5 0-08 mg by [facility] MG tablet 08:56: mouth of 21 nightly as Medicin needed for e Sleep. estrogens, 2020-04 Yes 1.25mg Take 1.25 [facility] conjugated, 0-08 mg by [facility] (PREMARIN) 08:56: mouth of 1.25 MG 21 daily. Medicin tablet e montelukast 2020-04 Yes 10mg Take 10 mg [place] (SINGULAIR) 0-08 by mouth [facility] 10 MG 08:56: daily. of tablet 21 Medicin e omeprazole 2020-04 Yes 40mg Take 40 mg [facility] (PRILOSEC) 0-08 by mouth [facility] 40 MG 08:56: daily. of capsule 21 Medicin e MAGNESIUM 2020-04 Yes Take by [facility] [place] 0-08 mouth two [facility] 08:56: times of 21 daily. Medicin e acetaminoph 2020-04 Yes 1000mg Take 1,000 [facility] (EXTRA 0-08 mg by [employer] STRENGTH 08:56: mouth as of PAIN 21 needed for Medicin RELIEF) 500 Pain. e mg tablet Potassium 2020-04 Yes 1{tbl} Take 1 [facility] 99 MG TABS 0-08 Tablet by [facility] 08:56: mouth of 21 daily. Medicin e hydrocodone 2020-04 Yes [id number] 1{tbl} Take 1 [facility] -acetaminop 0-08 Tablet by [facility] ([facility]) 00:00: mouth at of 5-325 mg 00 bedtime. Medicin tablet pain e hydrocodone 2020-04 Yes [id number] 1{tbl} Take 1 [facility] -acetaminop 0-08 Tablet by [facility] ([facility]) 00:00: mouth at of 5-325 mg 00 bedtime. Medicin tablet pain e hydrocodone 2020-04 Yes [id number] 1{tbl} Take 1 [facility] -acetaminop 0-08 Tablet by [facility] ([facility]) 00:00: mouth at of 5-325 mg 00 bedtime. Medicin tablet pain e hydrocodone 2020-04- No [id number] 1{tbl} Take 1 [facility] -acetaminop 0-08 11-09 Tablet by [facility] ([facility]) 00:00: 00:00 mouth at o f 5-325 mg 00 :00 bedtime. Medicin tablet pain e hydrocodone 2020-04- No [id number] 1{tbl} Take 1 [facility] -acetaminop 0-08 10-08 Tablet by [facility] ([facility]) 00:00: 00:00 mouth at o f 5-325 mg 00 :00 bedtime. Medicin tablet pain e estrogens, Yes 1.25mg Take 1.25 [facility] conjugated, 9-17 mg by [facility] (PREMARIN) 08:38: mouth of 1.25 MG 02 daily. Medicin tablet e montelukast Yes 10mg Take 10 mg [facility] (SINGULAIR) 9-17 by mouth [facility] 10 MG 08:38: daily. of tablet 02 Medicin e escitalopra Yes 20mg Take 20 mg [facility] (LEXAPRO) 9-17 by mouth [facility] 20 MG 08:38: daily. of tablet 02 Medicin e Cyanocobala Yes Take by [place] [facility] (B-12 -17 mouth. [facility] [place]) 08:38: of 02 Medicin e alprazolam Yes .5mg Take 0.5 [place] [facility] (XANAX) 0.5 9-17 mg by [facility] MG tablet 08:38: mouth of 02 nightly as Medicin needed for e Sleep. estrogens, Yes 1.25mg Take 1.25 [facility] conjugated, 9-17 mg by [employer] (PREMARIN) 08:38: mouth of 1.25 MG 02 daily. Medicin tablet e montelukast Yes 10mg Take 10 mg [facility] (SINGULAIR) 17 by mouth [facility] 10 MG 08:38: daily. of tablet 02 Medicin e omeprazole Yes 40mg Take 40 mg [facility] (PRILOSEC) 12-18 by mouth [facility] 40 MG 08:38: daily. of capsule 02 Medicin e MAGNESIUM Yes Take by [facility] [place] 12-18 mouth two [facility] 08:38: times of 02 daily. Medicin e acetaminoph Yes 1000mg Take 1,000 [facility] en (EXTRA 9-17 mg by [employer] STRENGTH 08:38: mouth as of PAIN 02 needed for Medicin RELIEF) 500 Pain. e mg tablet Potassium Yes 1{tbl} Take 1 [facility] 99 MG TABS 9-17 Tablet by [facility] 08:38: mouth of 02 daily. Medicin e escitalopra 0 Yes 20mg Take 20 mg [facility] m (LEXAPRO) 9-17 by mouth [facility] 20 MG 08:38: daily. of tablet 02 Medicin e Cyanocobala 0 Yes Take by [place] [facility] (B-12 9-17 mouth. [facility] [place]) 08:38: of 02 Medicin e alprazolam 0 Yes .5mg Take 0.5 [place] [facility] (XANAX) 0.5 9-17 mg by [place] MG tablet 08:38: mouth of 02 nightly as Medicin needed for e Sleep. estrogens, 0 Yes 1.25mg Take 1.25 [facility] conjugated, 9-17 mg by [facility] (PREMARIN) 08:38: mouth of 1.25 MG 02 daily. Medicin tablet e montelukast Yes 10mg Take 10 mg [facility] (SINGULAIR) - by mouth [facility] 10 MG 08:38: daily. of tablet 02 Medicin e omeprazole 0 Yes 40mg Take 40 mg [facility] (PRILOSEC) 9-17 by mouth [facility] 40 MG 08:38: daily. of capsule 02 Medicin e omeprazole 2020-0 Yes 40mg Take 40 mg [facility] (PRILOSEC) 9-17 by mouth [facility] 40 MG 08:38: daily. of capsule 02 Medicin e MAGNESIUM 2020-0 Yes Take by [place] [facility] [place] -17 mouth two [place] 08:38: times of 02 daily. Medicin e MAGNESIUM 2020-0 Yes Take by [facility] [place] 9-17 mouth two [facility] 08:38: times of 02 daily. Medicin e acetaminoph 2020-0 Yes 1000mg Take 1,000 [facility] en (EXTRA 9-17 mg by [employer] STRENGTH 08:38: mouth as of PAIN 02 needed for Medicin RELIEF) 500 Pain. e mg tablet Potassium 0 Yes 1{tbl} Take 1 [facility] 99 MG TABS 9-17 Tablet by [facility] 08:38: mouth of 02 daily. Medicin e acetaminoph 2020-0 Yes 1000mg Take 1,000 [facility] en (EXTRA 9-17 mg by [employer] STRENGTH 08:38: mouth as of PAIN 02 needed for Medicin RELIEF) 500 Pain. e mg tablet Potassium Yes 1{tbl} Take 1 [facility] 99 MG TABS 9-17 Tablet by [facility] 08:38: mouth of 02 daily. Medicin e escitalopra Yes 20mg Take 20 mg [facility] m (LEXAPRO) 9-17 by mouth [facility] 20 MG 08:38: daily. of tablet 02 Medicin e Cyanocobala Yes Take by [place] [facility] (B-12 9-17 mouth. [facility] [place]) 08:38: of 02 Medicin e alprazolam Yes .5mg Take 0.5 [place] [facility] (XANAX) 0.5 9-17 mg by [facility] MG tablet 08:38: mouth of 02 nightly as Medicin needed for e Sleep. estrogens, Yes 1.25mg Take 1.25 [facility] conjugated, 9-17 mg by [place] (PREMARIN) 08:38: mouth of 1.25 MG 02 daily. Medicin tablet e montelukast Yes 10mg Take 10 mg [facility] (SINGULAIR) 9-17 by mouth [facility] 10 MG 08:38: daily. of tablet 02 Medicin e omeprazole Yes 40mg Take 40 mg [facility] (PRILOSEC) -17 by mouth [facility] 40 MG 08:38: daily. of capsule 02 Medicin e MAGNESIUM Yes Take by [facility] [place] -17 mouth two [facility] 08:38: times of 02 daily. Medicin e acetaminoph Yes 1000mg Take 1,000 [facility] en (EXTRA 9-17 mg by [employer] STRENGTH 08:38: mouth as of PAIN 02 needed for Medicin RELIEF) 500 Pain. e mg tablet Potassium Yes 1{tbl} Take 1 [facility] 99 MG TABS -17 Tablet by [facility] 08:38: mouth of 02 daily. Medicin e escitalopra Yes 20mg Take 20 mg [facility] (LEXAPRO) 9-17 by mouth [facility] 20 MG 08:38: daily. of tablet 02 Medicin e Cyanocobala Yes Take by [place] [facility] (B-12 9-17 mouth. [facility] [place]) 08:38: of 02 Medicin e alprazolam 2020-0 Yes .5mg Take 0.5 [place] [facility] (XANAX) 0.5 9-17 mg by [facility] MG tablet 08:38: mouth of 02 nightly as Medicin needed for e Sleep. carvedilol 2020-0 Yes 25mg Take 1 [facility] (COREG) 25 9-15 Tablet by [facility] MG tablet 00:00: mouth two of 00 times Medicin daily. e carvedilol 2020-0 Yes 25mg Take 1 [facility] (COREG) 25 9-15 Tablet by [facility] MG tablet 00:00: mouth two of 00 times Medicin daily. e carvedilol 2020-0 Yes 25mg Take 1 [facility] (COREG) 25 9-15 Tablet by [facility] MG tablet 00:00: mouth two of 00 times Medicin daily. e carvedilol 2020-0 Yes 25mg Take 1 [facility] (COREG) 25 9-15 Tablet by [facility] MG tablet 00:00: mouth two of 00 times Medicin daily. e carvedilol 2020-0 Yes 25mg Take 1 [facility] (COREG) 25 9-15 Tablet by [facility] MG tablet 00:00: mouth two of 00 times Medicin daily. e carvedilol 2020-0 Yes 25mg Take 1 [facility] (COREG) 25 9-15 Tablet by [facility] MG tablet 00:00: mouth two of 00 times Medicin daily. e carvedilol 2020-0 Yes 25mg Take 1 [facility] (COREG) 25 9-15 Tablet by [facility] MG tablet 00:00: mouth two of 00 times Medicin daily. e carvedilol 2020-0 Yes 25mg Take 1 [facility] (COREG) 25 9-15 Tablet by [facility] MG tablet 00:00: mouth two of 00 times Medicin daily. e carvedilol 1-0 Yes 25mg Take 1 [facility] (COREG) 25 9-15 Tablet by [facility] MG tablet 00:00: mouth two of 00 times Medicin daily. e carvedilol 1-0 Yes 25mg Take 1 [facility] (COREG) 25 9-15 Tablet by [facility] MG tablet 00:00: mouth two of 00 times Medicin daily. e carvedilol 2020-0 Yes 25mg Take 1 [facility] (COREG) 25 9-15 Tablet by [facility] MG tablet 00:00: mouth two of 00 times Medicin daily. e carvedilol 2020-0 Yes 25mg Take 1 [facility] (COREG) 25 9-15 Tablet by [facility] MG tablet 00:00: mouth two of 00 times Medicin daily. e carvedilol 2020-0 Yes 25mg Take 1 [facility] (COREG) 25 9-15 Tablet by [facility] MG tablet 00:00: mouth two of 00 times Medicin daily. e carvedilol 2020-0 Yes 25mg Take 1 [facility] (COREG) 25 9-15 Tablet by [facility] MG tablet 00:00: mouth two of 00 times Medicin daily. e carvedilol 2020-0 Yes 25mg Take 1 [facility] (COREG) 25 9-15 Tablet by [facility] MG tablet 00:00: mouth two of 00 times Medicin daily. e carvedilol 2020-0 Yes 25mg Take 1 [facility] (COREG) 25 9-15 Tablet by [facility] MG tablet 00:00: mouth two of 00 times Medicin daily. e carvedilol 2020-0 Yes 25mg Take 1 [facility] (COREG) 25 9-15 Tablet by [facility] MG tablet 00:00: mouth two of 00 times Medicin daily. e carvedilol 2020-0 Yes 25mg Take 1 [facility] (COREG) 25 9-15 Tablet by [facility] MG tablet 00:00: mouth two of 00 times Medicin daily. e carvedilol 2020-0 Yes 25mg Take 1 [facility] (COREG) 25 9-15 Tablet by [facility] MG tablet 00:00: mouth two of 00 times Medicin daily. e carvedilol 1-0 Yes 25mg Take 1 [facility] (COREG) 25 9-15 Tablet by [facility] MG tablet 00:00: mouth two of 00 times Medicin daily. e carvedilol 1-0 Yes 25mg Take 1 [facility] (COREG) 25 9-15 Tablet by [facility] MG tablet 00:00: mouth two of 00 times Medicin daily. e carvedilol 2021-0 Yes 25mg Take 1 [facility] (COREG) 25 9-15 Tablet by [facility] MG tablet 00:00: mouth two of 00 times Medicin daily. e carvedilol 2020-0 Yes 25mg Take 1 [facility] (COREG) 25 9-15 Tablet by [facility] MG tablet 00:00: mouth two of 00 times Medicin daily. e carvedilol 2020-0 Yes 25mg Take 1 [facility] (COREG) 25 9-15 Tablet by [facility] MG tablet 00:00: mouth two of 00 times Medicin daily. e carvedilol 2020-0 Yes 25mg Take 1 [facility] (COREG) 25 9-15 Tablet by [facility] MG tablet 00:00: mouth two of 00 times Medicin daily. e carvedilol 2020-0 Yes 25mg Take 1 [facility] (COREG) 25 9-15 Tablet by [facility] MG tablet 00:00: mouth two of 00 times Medicin daily. e carvedilol 2020-0 Yes 25mg Take 1 [facility] (COREG) 25 9-15 Tablet by [facility] MG tablet 00:00: mouth two of 00 times Medicin daily. e carvedilol 2020-0 Yes 25mg Take 1 [facility] (COREG) 25 9-15 Tablet by [facility] MG tablet 00:00: mouth two of 00 times Medicin daily. e carvedilol 2020-0 Yes 25mg Take 1 [facility] (COREG) 25 9-15 Tablet by [facility] MG tablet 00:00: mouth two of 00 times Medicin daily. e carvedilol 2020-0 Yes 25mg Take 1 [facility] (COREG) 25 9-15 Tablet by [facility] MG tablet 00:00: mouth two of 00 times Medicin daily. e carvedilol 2020-0 Yes 25mg Take 1 [facility] (COREG) 25 9-15 Tablet by [facility] MG tablet 00:00: mouth two of 00 times Medicin daily. e carvedilol 2020-0 Yes 25mg Take 1 [facility] (COREG) 25 9-15 Tablet by [facility] MG tablet 00:00: mouth two of 00 times Medicin daily. e carvedilol 2020-0 Yes 25mg Take 1 [facility] (COREG) 25 9-15 Tablet by [facility] MG tablet 00:00: mouth two of 00 times Medicin daily. e carvedilol 2020-0 Yes 25mg Take 1 [facility] (COREG) 25 9-15 Tablet by [facility] MG tablet 00:00: mouth two of 00 times Medicin daily. e carvedilol 2020-0 Yes 25mg Take 1 [facility] (COREG) 25 9-15 Tablet by [facility] MG tablet 00:00: mouth two of 00 times Medicin daily. e carvedilol 2020-0 Yes 25mg Take 1 [facility] (COREG) 25 9-15 Tablet by [facility] MG tablet 00:00: mouth two of 00 times Medicin daily. e carvedilol 2020-0 Yes 25mg Take 1 [facility] (COREG) 25 9-15 Tablet by [facility] MG tablet 00:00: mouth two of 00 times Medicin daily. e carvedilol 2020-0 Yes 25mg Take 1 [facility] (COREG) 25 9-15 Tablet by [facility] MG tablet 00:00: mouth two of 00 times Medicin daily. e carvedilol 2020-0 Yes 25mg Take 1 [facility] (COREG) 25 9-15 Tablet by [facility] MG tablet 00:00: mouth two of 00 times Medicin daily. e carvedilol 2020-0 Yes 25mg Take 1 [facility] (COREG) 25 9-15 Tablet by [facility] MG tablet 00:00: mouth two of 00 times Medicin daily. e carvedilol 2020-0 Yes 25mg Take 1 [facility] (COREG) 25 9-15 Tablet by [facility] MG tablet 00:00: mouth two of 00 times Medicin daily. e escitalopra 2020-0 Yes 20mg Take 20 mg [facility] m (LEXAPRO) 8-27 by mouth [facility] 20 MG 08:40: daily. of tablet 40 Medicin e Cyanocobala 2020-0 Yes Take by [place] [facility] (B-12 8-27 mouth. [facility] [place]) 08:40: of 40 Medicin e alprazolam 2020-0 Yes .5mg Take 0.5 [place] [facility] (XANAX) 0.5 8-27 mg by [facility] MG tablet 08:40: mouth of 40 nightly as Medicin needed for e Sleep. estrogens, Yes 1.25mg Take 1.25 [facility] conjugated, 8-27 mg by [facility] (PREMARIN) 08:40: mouth of 1.25 MG 40 daily. Medicin tablet e montelukast Yes 10mg Take 10 mg [facility] (SINGULAIR) 8-27 by mouth [facility] 10 MG 08:40: daily. of tablet 40 Medicin e omeprazole Yes 40mg Take 40 mg [facility] (PRILOSEC) 8 by mouth [facility] 40 MG 08:40: daily. of capsule 40 Medicin e MAGNESIUM Yes Take by [facility] [place] 11-27 mouth two [facility] 08:40: times of 40 daily. Medicin e escitalopra Yes 20mg Take 20 mg [facility] m (LEXAPRO) 11-27 by mouth [facility] 20 MG 08:40: daily. of tablet 40 Medicin e Cyanocobala Yes Take by [place] [facility] (B-12 11-27 mouth. [facility] OR) 08:40: of 40 Medicin e alprazolam Yes .5mg Take 0.5 [place] (XANAX) 0.5 8-27 mg by [facility] MG tablet 08:40: mouth of 40 nightly as Medicin needed for e Sleep. estrogens, Yes 1.25mg Take 1.25 Fidel conjugated, 8-27 mg by [employer] (PREMARIN) 08:40: mouth of 1.25 MG 40 daily. Medicin tablet e montelukast Yes 10mg Take 10 mg [facility] (SINGULAIR) 827 by mouth Suad ege 10 MG 08:40: daily. of tablet 40 Medicin e omeprazole Yes 40mg Take 40 mg [facility] (PRILOSEC) 8 by mouth [facility] 40 MG 08:40: daily. of capsule 40 Medicin e MAGNESIUM Yes Take by [facility] 11-27 mouth two [facility] 08:40: times of 40 daily. Medicin e acetaminoph Yes 1000mg Take 1,000 [facility]idel en (EXTRA 8-27 mg by College STRENGTH 08:40: mouth as of PAIN 39 needed for Medicin RELIEF) 500 Pain. e mg tablet Potassium Yes 1{tbl} Take 1 [facility] 99 MG TABS 11-27 Tablet by Suad garcia 08:40: mouth of 39 daily. Medicin e Potassium 2020- No Take by [facility] Aminobenzoa 11-27 mouth. [place] [facility] (POTABA) 08:39: 00:00 of 500 MG TABS 33 :00 Medicin e Cobalamine 2020- No Take by [place] [facility] Combination 11-27 mouth. [place] sparrow s (FOLIC + 08:38: 00:00 of B12) 50 :00 Medicin 800-1000 e MCG TABS clonidine 2020- No .1mg Take 0.1 [place] [facility] (CATAPRES) 11-27 mg by [place] 0.1 MG 08:38: 00:00 mouth as of tablet 29 :00 needed. Medicin e Acetaminoph 2020- No Take by Darnell hanks 11-27 mouth. [place] (TYLENOL) 08:37: 00:00 of 167 MG/5ML 31 :00 Medicin LIQD e Levothyroxi 0 Yes [id number] 75ug Take 75 [facility] ne Sodium 8-17 mcg by [place] 75 MCG CAPS 00:00: mouth of 00 daily. Medicin e Levothyroxi Yes [id number] 75ug Take 75 [facility] ne Sodium 8-17 mcg by [place] 75 MCG CAPS 00:00: mouth of 00 daily. Medicin e Levothyroxi 0 Yes [id number] 75ug Take 75 [facility] ne Sodium 8-17 mcg by [place] 75 MCG CAPS 00:00: mouth of 00 daily. Medicin e Levothyroxi 0 Yes [id number] 75ug Take 75 [facility] ne Sodium 8-17 mcg by [place] 75 MCG CAPS 00:00: mouth of 00 daily. Medicin e Levothyroxi 0 Yes [id number] 75ug Take 75 [facility] ne Sodium 8-17 mcg by [place] 75 MCG CAPS 00:00: mouth of 00 daily. Medicin e Levothyroxi 0 Yes [id number] 75ug Take 75 [facility] ne Sodium 8-17 mcg by [place] 75 MCG CAPS 00:00: mouth of 00 daily. Medicin e Levothyroxi 2020-0 Yes [id number] 75ug Take 75 [facility] ne Sodium 8-17 mcg by [place] 75 MCG CAPS 00:00: mouth of 00 daily. Medicin e Levothyroxi 2020-0 Yes [id number] 75ug Take 75 [facility] ne Sodium 8-17 mcg by [place] 75 MCG CAPS 00:00: mouth of 00 daily. Medicin e Levothyroxi 2020-0 Yes [id number] 75ug Take 75 [facility] ne Sodium 8-17 mcg by [place] 75 MCG CAPS 00:00: mouth of 00 daily. Medicin e Levothyroxi 2020-0 Yes [id number] 75ug Take 75 [facility] ne Sodium 8-17 mcg by [place] 75 MCG CAPS 00:00: mouth of 00 daily. Medicin e Levothyroxi 2020-0 Yes [id number] 75ug Take 75 [facility] ne Sodium 8-17 mcg by [place] 75 MCG CAPS 00:00: mouth of 00 daily. Medicin e Levothyroxi 2020-0 Yes [id number] 75ug Take 75 [facility] ne Sodium 8-17 mcg by [place] 75 MCG CAPS 00:00: mouth of 00 daily. Medicin e Levothyroxi 2020-0 1- No [id number] 75ug Take 75 [facility] ne Sodium 8-17 12-10 mcg by [place] 75 MCG CAPS 00:00: 00:00 mouth of 00 :00 daily. Medicin e promethazin 2020-0 Yes [id number] 12.5mg Take 1 [facility] e 8-13 Tablet by [place] (PHENERGAN) 00:00: mouth of 12.5 MG 00 every 6 Medicin tablet hours as e needed for Nausea. promethazin 2020-0 Yes [id number] 12.5mg Take 1 [facility] e 8-13 Tablet by [place] (PHENERGAN) 00:00: mouth of 12.5 MG 00 every 6 Medicin tablet hours as e needed for Nausea. promethazin 2020-0 Yes [id number] 12.5mg Take 1 [facility] e 8-13 Tablet by [place] (PHENERGAN) 00:00: mouth of 12.5 MG 00 every 6 Medicin tablet hours as e needed for Nausea. promethazin 2020-0 Yes [id number] 12.5mg Take 1 [facility] e 8-13 Tablet by [place] (PHENERGAN) 00:00: mouth of 12.5 MG 00 every 6 Medicin tablet hours as e needed for Nausea. promethazin 2020-0 Yes [id number] 12.5mg Take 1 [facility] e 8-13 Tablet by [place] (PHENERGAN) 00:00: mouth of 12.5 MG 00 every 6 Medicin tablet hours as e needed for Nausea. promethazin 2020-0 Yes [id number] 12.5mg Take 1 [facility] e 8-13 Tablet by [place] (PHENERGAN) 00:00: mouth of 12.5 MG 00 every 6 Medicin tablet hours as e needed for Nausea. promethazin 2020-0 Yes [id number] 12.5mg Take 1 [facility] e 8-13 Tablet by [place] (PHENERGAN) 00:00: mouth of 12.5 MG 00 every 6 Medicin tablet hours as e needed for Nausea. promethazin 2020-0 Yes [id number] 12.5mg Take 1 [facility] e 8-13 Tablet by [place] (PHENERGAN) 00:00: mouth of 12.5 MG 00 every 6 Medicin tablet hours as e needed for Nausea. promethazin 2020-0 Yes [id number] 12.5mg Take 1 [facility] e 8-13 Tablet by [place] (PHENERGAN) 00:00: mouth of 12.5 MG 00 every 6 Medicin tablet hours as e needed for Nausea. promethazin 2020-0 Yes [id number] 12.5mg Take 1 [facility] e 8-13 Tablet by [place] (PHENERGAN) 00:00: mouth of 12.5 MG 00 every 6 Medicin tablet hours as e needed for Nausea. promethazin 2020-0 Yes [id number] 12.5mg Take 1 [facility] e 8-13 Tablet by [place] (PHENERGAN) 00:00: mouth of 12.5 MG 00 every 6 Medicin tablet hours as e needed for Nausea. promethazin 2020-0 Yes [id number] 12.5mg Take 1 [facility] e 8-13 Tablet by [place] (PHENERGAN) 00:00: mouth of 12.5 MG 00 every 6 Medicin tablet hours as e needed for Nausea. promethazin 2020-0 Yes [id number] 12.5mg Take 1 [facility] e 8-13 Tablet by [place] (PHENERGAN) 00:00: mouth of 12.5 MG 00 every 6 Medicin tablet hours as e needed for Nausea. promethazin 2020-0 Yes [id number] 12.5mg Take 1 [facility] e 8-13 Tablet by [place] (PHENERGAN) 00:00: mouth of 12.5 MG 00 every 6 Medicin tablet hours as e needed for Nausea. promethazin 2020-0 Yes [id number] 12.5mg Take 1 [facility] e 8-13 Tablet by [place] (PHENERGAN) 00:00: mouth of 12.5 MG 00 every 6 Medicin tablet hours as e needed for Nausea. promethazin 2020-0 Yes [id number] 12.5mg Take 1 [facility] e 8-13 Tablet by [place] (PHENERGAN) 00:00: mouth of 12.5 MG 00 every 6 Medicin tablet hours as e needed for Nausea. promethazin 2020-0 Yes [id number] 12.5mg Take 1 [facility] e 8-13 Tablet by [place] (PHENERGAN) 00:00: mouth of 12.5 MG 00 every 6 Medicin tablet hours as e needed for Nausea. promethazin 2020-0 Yes [id number] 12.5mg Take 1 [facility] e 8-13 Tablet by [place] (PHENERGAN) 00:00: mouth of 12.5 MG 00 every 6 Medicin tablet hours as e needed for Nausea. promethazin 2020-0 Yes [id number] 12.5mg Take 1 [facility] e 8-13 Tablet by [place] (PHENERGAN) 00:00: mouth of 12.5 MG 00 every 6 Medicin tablet hours as e needed for Nausea. promethazin 2020-0 Yes [id number] 12.5mg Take 1 [facility] e 8-13 Tablet by [place] (PHENERGAN) 00:00: mouth of 12.5 MG 00 every 6 Medicin tablet hours as e needed for Nausea. promethazin 2020-0 Yes [id number] 12.5mg Take 1 [facility] e 8-13 Tablet by [place] (PHENERGAN) 00:00: mouth of 12.5 MG 00 every 6 Medicin tablet hours as e needed for Nausea. promethazin 2020-0 Yes [id number] 12.5mg Take 1 [facility] e 8-13 Tablet by [place] (PHENERGAN) 00:00: mouth of 12.5 MG 00 every 6 Medicin tablet hours as e needed for Nausea. promethazin 2020-0 Yes [id number] 12.5mg Take 1 [facility] e 8-13 Tablet by [place] (PHENERGAN) 00:00: mouth of 12.5 MG 00 every 6 Medicin tablet hours as e needed for Nausea. promethazin 2020-0 Yes [id number] 12.5mg Take 1 [facility] 8-13 Tablet by [place] (PHENERGAN) 00:00: mouth of 12.5 MG 00 every 6 Medicin tablet hours as e needed for Nausea. promethazin 2020-0 Yes [id number] 12.5mg Take 1 [facility] e 8-13 Tablet by [place] (PHENERGAN) 00:00: mouth of 12.5 MG 00 every 6 Medicin tablet hours as e needed for Nausea. promethazin 2020-0 Yes [id number] 12.5mg Take 1 [facility] e 8-13 Tablet by [place] (PHENERGAN) 00:00: mouth of 12.5 MG 00 every 6 Medicin tablet hours as e needed for Nausea. promethazin 2020-0 Yes [id number] 12.5mg Take 1 [facility] e 8-13 Tablet by [place] (PHENERGAN) 00:00: mouth of 12.5 MG 00 every 6 Medicin tablet hours as e needed for Nausea. promethazin 2020-0 Yes [id number] 12.5mg Take 1 [facility] e 8-13 Tablet by [place] (PHENERGAN) 00:00: mouth of 12.5 MG 00 every 6 Medicin tablet hours as e needed for Nausea. promethazin 2020-0 Yes [id number] 12.5mg Take 1 [facility] e 8-13 Tablet by [place] (PHENERGAN) 00:00: mouth of 12.5 MG 00 every 6 Medicin tablet hours as e needed for Nausea. promethazin 2020-0 Yes [id number] 12.5mg Take 1 [facility] e 8-13 Tablet by [place] (PHENERGAN) 00:00: mouth of 12.5 MG 00 every 6 Medicin tablet hours as e needed for Nausea. promethazin 2020-0 Yes [id number] 12.5mg Take 1 [facility] 8-13 Tablet by [place] (PHENERGAN) 00:00: mouth of 12.5 MG 00 every 6 Medicin tablet hours as e needed for Nausea. promethazin 2020-0 Yes [id number] 12.5mg Take 1 [facility] e 8-13 Tablet by [place] (PHENERGAN) 00:00: mouth of 12.5 MG 00 every 6 Medicin tablet hours as e needed for Nausea. promethazin 2020-0 Yes [id number] 12.5mg Take 1 [facility] e 8-13 Tablet by [place] (PHENERGAN) 00:00: mouth of 12.5 MG 00 every 6 Medicin tablet hours as e needed for Nausea. promethazin 2020-0 Yes [id number] 12.5mg Take 1 [facility] e 8-13 Tablet by [place] (PHENERGAN) 00:00: mouth of 12.5 MG 00 every 6 Medicin tablet hours as e needed for Nausea. promethazin 2020-0 Yes [id number] 12.5mg Take 1 [facility] e 8-13 Tablet by [place] (PHENERGAN) 00:00: mouth of 12.5 MG 00 every 6 Medicin tablet hours as e needed for Nausea. promethazin 2020-0 Yes [id number] 12.5mg Take 1 [facility] e 8-13 Tablet by [place] (PHENERGAN) 00:00: mouth of 12.5 MG 00 every 6 Medicin tablet hours as e needed for Nausea. promethazin 2020-0 Yes [id number] 12.5mg Take 1 [facility] e 8-13 Tablet by [place] (PHENERGAN) 00:00: mouth of 12.5 MG 00 every 6 Medicin tablet hours as e needed for Nausea. promethazin 2020-0 Yes [id number] 12.5mg Take 1 [facility] e 8-13 Tablet by [place] (PHENERGAN) 00:00: mouth of 12.5 MG 00 every 6 Medicin tablet hours as e needed for Nausea. promethazin 2020-0 Yes [id number] 12.5mg Take 1 [facility] e 8-13 Tablet by [place] (PHENERGAN) 00:00: mouth of 12.5 MG 00 every 6 Medicin tablet hours as e needed for Nausea. promethazin 2020-0 Yes [id number] 12.5mg Take 1 [facility] e 8-13 Tablet by [place] (PHENERGAN) 00:00: mouth of 12.5 MG 00 every 6 Medicin tablet hours as e needed for Nausea. promethazin 2020-0 Yes [id number] 12.5mg Take 1 [facility] e 8-13 Tablet by [place] (PHENERGAN) 00:00: mouth of 12.5 MG 00 every 6 Medicin tablet hours as e needed for Nausea. promethazin 2020-0 Yes [id number] 12.5mg Take 1 [facility] e 8-13 Tablet by [place] (PHENERGAN) 00:00: mouth of 12.5 MG 00 every 6 Medicin tablet hours as e needed for Nausea. promethazin 2020-0 Yes [id number] 12.5mg Take 1 [facility] e 8-13 Tablet by [place] (PHENERGAN) 00:00: mouth of 12.5 MG 00 every 6 Medicin tablet hours as e needed for Nausea. promethazin 2020-0 Yes [id number] 12.5mg Take 1 [facility] e 8-13 Tablet by [place] (PHENERGAN) 00:00: mouth of 12.5 MG 00 every 6 Medicin tablet hours as e needed for Nausea. promethazin 2020-0 Yes [id number] 12.5mg Take 1 [facility] e 8-13 Tablet by [place] (PHENERGAN) 00:00: mouth of 12.5 MG 00 every 6 Medicin tablet hours as e needed for Nausea. candesartan 2020-0 Yes [id number] TAKE 1 [facility] (ATACAND) 8-02 TABLET BY [facility] 32 MG 00:00: MOUTH of tablet 00 EVERY DAY Medicin e candesartan 2020-0 Yes [id number] TAKE 1 [facility] (ATACAND) 8-02 TABLET BY [facility] 32 MG 00:00: MOUTH of tablet 00 EVERY DAY Medicin e candesartan 2020-0 Yes [id number] TAKE 1 [facility] (ATACAND) 8-02 TABLET BY Col[facility] 32 MG 00:00: MOUTH of tablet 00 EVERY DAY Medicin e candesartan 2020-0 Yes [id number] TAKE 1 [facility] (ATACAND) 8-02 TABLET BY [facility] 32 MG 00:00: MOUTH of tablet 00 EVERY DAY Medicin e candesartan 2020-0 Yes [id number] TAKE 1 [facility] (ATACAND) 8-02 TABLET BY Col[facility] 32 MG 00:00: MOUTH of tablet 00 EVERY DAY Medicin e candesartan 2020-0 Yes [id number] TAKE 1 [facility] (ATACAND) 8-02 TABLET BY [facility] 32 MG 00:00: MOUTH of tablet 00 EVERY DAY Medicin e candesartan 2020-0 Yes [id number] TAKE 1 [facility] (ATACAND) 8-02 TABLET BY [facility] 32 MG 00:00: MOUTH of tablet 00 EVERY DAY Medicin e candesartan 2020-0 Yes [id number] TAKE 1 [facility] (ATACAND) 8-02 TABLET BY [facility] 32 MG 00:00: MOUTH of tablet 00 EVERY DAY Medicin e candesartan 2020-0 Yes [id number] TAKE 1 [facility] (ATACAND) 8-02 TABLET BY [facility] 32 MG 00:00: MOUTH of tablet 00 EVERY DAY Medicin e candesartan 2020-0 Yes [id number] TAKE 1 [facility] (ATACAND) 8-02 TABLET BY [facility] 32 MG 00:00: MOUTH of tablet 00 EVERY DAY Medicin e candesartan 2020-0 Yes [id number] TAKE 1 [facility] (ATACAND) 8-02 TABLET BY [facility] 32 MG 00:00: MOUTH of tablet 00 EVERY DAY Medicin e candesartan 2020-0 Yes [id number] TAKE 1 [facility] (ATACAND) 8-02 TABLET BY [facility] 32 MG 00:00: MOUTH of tablet 00 EVERY DAY Medicin e candesartan 2020-0 Yes [id number] TAKE 1 [facility] (ATACAND) 8-02 TABLET BY [facility] 32 MG 00:00: MOUTH of tablet 00 EVERY DAY Medicin e candesartan 0 202- No [id number] TAKE 1 [facility] (ATACAND) 8-02 12-10 TABLET BY Suad ege 32 MG 00:00: 00:00 MOUTH of tablet 00 :00 EVERY DAY Medicin e DPH-Lido-Al 2020- No [id number] 10mL Take 10 mL [facility] Hydr-MgHydr 7-30 08-30 by mouth 4 [facility] -[facility] 00:00: 04:59 times of (FIRST-MOUT 00 :00 daily as Medi michael HWASH BLM) needed for e SUSP Other (mouth pain) for up to 30 days. DPH-Lido-Al 2020- No [id number] 10mL Take 10 mL [facility] Hydr-MgHydr 7-30 08-30 by mouth 4 [facility] -[facility] 00:00: 04:59 times of (FIRST-MOUT 00 :00 daily as Medi michael HWASH BLM) needed for e SUSP Other (mouth pain) for up to 30 days. tramadol Yes [id number] 1{tbl} Take 1 [facility] (ULTRAM) 50 7-20 Tablet by Col lege MG tablet 00:00: mouth of 00 every 8 Medicin hours as e needed for Pain. tramadol Yes [id number] 1{tbl} Take 1 [facility] (ULTRAM) 50 7-20 Tablet by Col [facility]ge MG tablet 00:00: mouth of 00 every 8 Medicin hours as e needed for Pain. tramadol Yes [id number] 1{tbl} Take 1 [facility] (ULTRAM) 50 7-20 Tablet by Col [facility]ge MG tablet 00:00: mouth of 00 every 8 Medicin hours as e needed for Pain. tramadol Yes [id number] 1{tbl} Take 1 [facility] (ULTRAM) 50 7-20 Tablet by Col [facility]ge MG tablet 00:00: mouth of 00 every 8 Medicin hours as e needed for Pain. tramadol Yes [id number] 1{tbl} Take 1 [facility] (ULTRAM) 50 7-20 Tablet by Col lege MG tablet 00:00: mouth of 00 every 8 Medicin hours as e needed for Pain. tramadol Yes [id number] 1{tbl} Take 1 [facility] (ULTRAM) 50 7-20 Tablet by Col [facility]ge MG tablet 00:00: mouth of 00 every 8 Medicin hours as e needed for Pain. tramadol 2020- No [id number] 1{tbl} Take 1 [facility] (ULTRAM) 50 7-20 10-08 Tablet by Co llege MG tablet 00:00: 00:00 mouth of 00 :00 every 8 Medicin hours as e needed for Pain. escitalopra Yes 20mg Take 20 mg [facility] m (LEXAPRO) 7-16 by mouth Suad ege 20 MG 08:55: daily. of tablet 24 Medicin e Cobalamine Yes Take by [facility] Combination 7-16 mouth. [place] e s (FOLIC + 08:55: of B12) 24 Medicin 800-1000 e MCG TABS Potassium Yes Take by [facility] Aminobenzoa 7-16 mouth. [facility] e [facility] (POTABA) 08:55: of 500 MG TABS 24 Medicin e Cyanocobala Yes Take by [place] [facility] min (B-12 7-16 mouth. [place]) 08:55: of 24 Medicin e alprazolam Yes .5mg Take 0.5 [place] [facility] (XANAX) 0.5 7-16 mg by [place] MG tablet 08:55: mouth of 24 nightly as Medicin needed for e Sleep. estrogens, Yes 1.25mg Take 1.25 [facility] conjugated, 7-16 mg by [place] (PREMARIN) 08:55: mouth of 1.25 MG 24 daily. Medicin tablet e montelukast Yes 10mg Take 10 mg [facility] (SINGULAIR) 7-16 by mouth Suad ege 10 MG 08:55: daily. of tablet 24 Medicin e Acetaminoph Yes Take by [place] [facility] en 7-16 mouth. [place] (TYLENOL) 08:55: of 167 MG/5ML 24 Medicin LIQD e omeprazole Yes 40mg Take 40 mg [facility] (PRILOSEC) 7-16 by mouth [facility]le [facility] 40 MG 08:55: daily. of capsule 24 Medicin e MAGNESIUM Yes Take by [facility] 7-16 mouth two [facility] 08:55: times of 24 daily. Medicin e clonidine Yes .1mg Take 0.1 [facility] (CATAPRES) 7-16 mg by [place] 0.1 MG 08:55: mouth as of tablet 24 needed. Medicin e tramadol Yes [id number] 1{tbl} Take 1 [facility] (ULTRAM) 50 7-16 Tablet by [facility] lege MG tablet 00:00: mouth of 00 every 8 Medicin hours as e needed for Pain. linaCLOtide Yes [id number] 72ug Take 72 [facility] 72 MCG CAPS 7-02 mcg by Colleg e 00:00: mouth of 00 daily. Medicin e linaCLOtide Yes [id number] 72ug Take 72 [facility] 72 MCG CAPS 7-02 mcg by [facility] e 00:00: mouth of 00 daily. Medicin e linaCLOtide 2020-0 Yes [id number] 72ug Take 72 [facility] 72 MCG CAPS 7-02 mcg by [facility] e 00:00: mouth of 00 daily. Medicin e linaCLOtide 2020-0 Yes [id number] 72ug Take 72 [facility] 72 MCG CAPS 7-02 mcg by [facility] e 00:00: mouth of 00 daily. Medicin e linaCLOtide 2020-0 Yes [id number] 72ug Take 72 [facility] 72 MCG CAPS 7-02 mcg by [facility] e 00:00: mouth of 00 daily. Medicin e linaCLOtide 2020-0 Yes [id number] 72ug Take 72 [facility] 72 MCG CAPS 7-02 mcg by [facility] e 00:00: mouth of 00 daily. Medicin e linaCLOtide 2020-0 Yes [id number] 72ug Take 72 [facility] 72 MCG CAPS 7-02 mcg by [facility] e 00:00: mouth of 00 daily. Medicin e linaCLOtide 2020-0 Yes [id number] 72ug Take 72 [facility] 72 MCG CAPS 7-02 mcg by [facility] e 00:00: mouth of 00 daily. Medicin e linaCLOtide 2020-0 Yes [id number] 72ug Take 72 [facility] 72 MCG CAPS 7-02 mcg by [facility] e 00:00: mouth of 00 daily. Medicin e linaCLOtide 2020-0 Yes [id number] 72ug Take 72 [facility] 72 MCG CAPS 7-02 mcg by [facility] e 00:00: mouth of 00 daily. Medicin e linaCLOtide 2020-0 Yes [id number] 72ug Take 72 [facility] 72 MCG CAPS 7-02 mcg by [facility] e 00:00: mouth of 00 daily. Medicin e linaCLOtide 2020-0 Yes [id number] 72ug Take 72 [facility] 72 MCG CAPS 7-02 mcg by [facility] e 00:00: mouth of 00 daily. Medicin e linaCLOtide 2020-0 Yes [id number] 72ug Take 72 [facility] 72 MCG CAPS 7-02 mcg by [facility] e 00:00: mouth of 00 daily. Medicin e linaCLOtide 2020-0 Yes [id number] 72ug Take 72 [facility] 72 MCG CAPS 7-02 mcg by [facility] e 00:00: mouth of 00 daily. Medicin e linaCLOtide 2020-0 Yes [id number] 72ug Take 72 [facility] 72 MCG CAPS 7-02 mcg by [facility] e 00:00: mouth of 00 daily. Medicin e linaCLOtide 2020-0 Yes [id number] 72ug Take 72 [facility] 72 MCG CAPS 7-02 mcg by [facility] e 00:00: mouth of 00 daily. Medicin e linaCLOtide 2020-0 Yes [id number] 72ug Take 72 [facility] 72 MCG CAPS 7-02 mcg by [facility] e 00:00: mouth of 00 daily. Medicin e linaCLOtide 2020-0 Yes [id number] 72ug Take 72 [facility] 72 MCG CAPS 7-02 mcg by [facility] e 00:00: mouth of 00 daily. Medicin e linaCLOtide 2020-0 Yes [id number] 72ug Take 72 [facility] 72 MCG CAPS 7-02 mcg by [facility] e 00:00: mouth of 00 daily. Medicin e linaCLOtide 2020-0 Yes [id number] 72ug Take 72 [facility] 72 MCG CAPS 7-02 mcg by [facility] e 00:00: mouth of 00 daily. Medicin e linaCLOtide 2020-0 Yes [id number] 72ug Take 72 [facility] 72 MCG CAPS 7-02 mcg by [facility] e 00:00: mouth of 00 daily. Medicin e linaCLOtide 2020-0 Yes [id number] 72ug Take 72 [facility] 72 MCG CAPS 7-02 mcg by [facility] e 00:00: mouth of 00 daily. Medicin e linaCLOtide 2020-0 Yes [id number] 72ug Take 72 [facility] 72 MCG CAPS 7-02 mcg by [facility] e 00:00: mouth of 00 daily. Medicin e linaCLOtide 2020-0 Yes [id number] 72ug Take 72 [facility] 72 MCG CAPS 7-02 mcg by [facility] e 00:00: mouth of 00 daily. Medicin e linaCLOtide 2020-0 Yes [id number] 72ug Take 72 [facility] 72 MCG CAPS 7-02 mcg by [facility] e 00:00: mouth of 00 daily. Medicin e linaCLOtide 2020-0 Yes [id number] 72ug Take 72 [facility] 72 MCG CAPS 7-02 mcg by [facility] e 00:00: mouth of 00 daily. Medicin e linaCLOtide 0 Yes [id number] 72ug Take 72 [facility] 72 MCG CAPS 7-02 mcg by [facility] e 00:00: mouth of 00 daily. Medicin e linaCLOtide 0 Yes [id number] 72ug Take 72 [facility] 72 MCG CAPS 7-02 mcg by [facility] e 00:00: mouth of 00 daily. Medicin e linaCLOtide 0 Yes [id number] 72ug Take 72 [facility] 72 MCG CAPS 7-02 mcg by [facility] e 00:00: mouth of 00 daily. Medicin e linaCLOtide 0 Yes [id number] 72ug Take 72 [facility] 72 MCG CAPS 7-02 mcg by [facility] e 00:00: mouth of 00 daily. Medicin e linaCLOtide 0 Yes [id number] 72ug Take 72 [facility] 72 MCG CAPS 7-02 mcg by [facility] e 00:00: mouth of 00 daily. Medicin e linaCLOtide 0 Yes [id number] 72ug Take 72 [facility] 72 MCG CAPS 7-02 mcg by [facility] e 00:00: mouth of 00 daily. Medicin e linaCLOtide 0 Yes [id number] 72ug Take 72 [facility] 72 MCG CAPS 7-02 mcg by [facility] e 00:00: mouth of 00 daily. Medicin e linaCLOtide 0 Yes [id number] 72ug Take 72 [facility] 72 MCG CAPS 7-02 mcg by [facility] e 00:00: mouth of 00 daily. Medicin e linaCLOtide 0 Yes [id number] 72ug Take 72 [facility] 72 MCG CAPS 7-02 mcg by [facility] e 00:00: mouth of 00 daily. Medicin e linaCLOtide 0 Yes [id number] 72ug Take 72 [facility] 72 MCG CAPS 7-02 mcg by [facility] e 00:00: mouth of 00 daily. Medicin e linaCLOtide 2020-0 Yes [id number] 72ug Take 72 [facility] 72 MCG CAPS 7-02 mcg by [facility] e 00:00: mouth of 00 daily. Medicin e linaCLOtide 2020-0 Yes [id number] 72ug Take 72 [facility] 72 MCG CAPS 7-02 mcg by [facility] e 00:00: mouth of 00 daily. Medicin e linaCLOtide 2021-0 Yes [id number] 72ug Take 72 [facility] 72 MCG CAPS 7-02 mcg by [facility] e 00:00: mouth of 00 daily. Medicin e linaCLOtide Yes [id number] 72ug Take 72 [facility] 72 MCG CAPS 7-02 mcg by [facility] e 00:00: mouth of 00 daily. Medicin e linaCLOtide 0 Yes [id number] 72ug Take 72 [facility] 72 MCG CAPS 7-02 mcg by [facility] e 00:00: mouth of 00 daily. Medicin e linaCLOtide Yes [id number] 72ug Take 72 [facility] 72 MCG CAPS 7-02 mcg by [facility] e 00:00: mouth of 00 daily. Medicin e linaCLOtide Yes [id number] 72ug Take 72 [facility] 72 MCG CAPS 7-02 mcg by [facility] e 00:00: mouth of 00 daily. Medicin e linaCLOtide Yes [id number] 72ug Take 72 [facility] 72 MCG CAPS 7-02 mcg by [facility] 00:00: mouth of 00 daily. Medicin e linaCLOtide Yes [id number] 72ug Take 72 [facility] 72 MCG CAPS 7-02 mcg by [facility] 00:00: mouth of 00 daily. Medicin e linaCLOtide Yes [id number] 72ug Take 72 [facility] 72 MCG CAPS 7-02 mcg by [facility] e 00:00: mouth of 00 daily. Medicin e escitalopra Yes 20mg Take 20 mg [facility] (LEXAPRO) 6-25 by mouth Suad ege 20 MG 08:33: daily. of tablet 39 Medicin e Cobalamine Yes Take by [facility] Combination 6-25 mouth. [place] gordillo s (FOLIC + 08:33: of B12) 39 Medicin 800-1000 e MCG TABS Potassium Yes Take by [facility] Aminobenzoa 6-25 mouth. [place] gordillo te (POTABA) 08:33: of 500 MG TABS 39 Medicin e Cyanocobala Yes Take by [place] [facility] min (B-12 6-25 mouth. [facility] OR) 08:33: of 39 Medicin e alprazolam Yes .5mg Take 0.5 [place] [facility] (XANAX) 0.5 6-25 mg by [place] MG tablet 08:33: mouth of 39 nightly as Medicin needed for e Sleep. estrogens, Yes 1.25mg Take 1.25 [facility] conjugated, 6-25 mg by [facility] (PREMARIN) 08:33: mouth of 1.25 MG 39 daily. Medicin tablet e montelukast Yes 10mg Take 10 mg [facility] (SINGULAIR) 6-25 by mouth Suad ege 10 MG 08:33: daily. of tablet 39 Medicin e Acetaminoph Yes Take by [place] [facility] en 6-25 mouth. [facility] (TYLENOL) 08:33: of 167 MG/5ML 39 Medicin LIQD e omeprazole Yes 40mg Take 40 mg [facility] (PRILOSEC) 6-25 by mouth [facility]le [facility] 40 MG 08:33: daily. of capsule 39 Medicin e MAGNESIUM Yes Take by [facility] 09-25 mouth two [facility] 08:33: times of 39 daily. Medicin e clonidine Yes .1mg Take 0.1 [facility] (CATAPRES) 6-25 mg by [place] 0.1 MG 08:33: mouth as of tablet 39 needed. Medicin e escitalopra Yes 20mg Take 20 mg [facility] (LEXAPRO) 604 by mouth Suad ege 20 MG 08:45: daily. of tablet 17 Medicin e Cobalamine Yes Take by [facility] Combination -04 mouth. [facility] (FOLIC + 08:45: of B12) 17 Medicin 800-1000 e MCG TABS Potassium Yes Take by [facility] Aminobenzoa -04 mouth. [facility] (POTABA) 08:45: of 500 MG TABS 17 Medicin e Cyanocobala Yes Take by [place] [facility] (B-12 6-04 mouth. [place]) 08:45: of 17 Medicin e alprazolam Yes .5mg Take 0.5 [place] [facility] (XANAX) 0.5 6-04 mg by [place] MG tablet 08:45: mouth of 17 nightly as Medicin needed for e Sleep. estrogens, Yes 1.25mg Take 1.25 [facility] conjugated, 6-04 mg by [place] (PREMARIN) 08:45: mouth of 1.25 MG 17 daily. Medicin tablet e montelukast Yes 10mg Take 10 mg [facility] (SINGULAIR) 6-04 by mouth [facility] 10 MG 08:45: daily. of tablet 17 Medicin e Acetaminoph Yes Take by [place] [facility] 6-04 mouth. [place] (TYLENOL) 08:45: of 167 MG/5ML 17 Medicin LIQD e omeprazole Yes 40mg Take 40 mg [facility] (PRILOSEC) 6-04 by mouth [facility] 40 MG 08:45: daily. of capsule 17 Medicin e MAGNESIUM Yes Take by [facility] [place] 6-04 mouth two [place] 08:45: times of 17 daily. Medicin e clonidine Yes .1mg Take 0.1 [facility] (CATAPRES) 6-04 mg by [place] 0.1 MG 08:45: mouth as of tablet 17 needed. Medicin e linaCLOtide Yes [id number] 72ug Take 72 [facility] 72 MCG CAPS 6-04 mcg by [facility] 00:00: mouth of 00 daily. Medicin e linaCLOtide Yes [id number] 72ug Take 72 [facility] 72 MCG CAPS 6-04 mcg by [facility] 00:[facility]: mouth of 00 daily. Medicin e Levothyroxi Yes [id number] 75ug Take 75 [facility] ne Sodium 5-11 mcg by [place] 75 MCG CAPS 00:00: mouth of 00 daily. Medicin e Levothyroxi Yes [id number] 75ug Take 75 [facility] ne Sodium 5-11 mcg by [place] 75 MCG CAPS 00:00: mouth of 00 daily. Medicin e Levothyroxi Yes [id number] 75ug Take 75 [facility] ne Sodium 5-11 mcg by [place] 75 MCG CAPS 00:00: mouth of 00 daily. Medicin e escitalopra Yes 20mg Take 20 mg [facility] m (LEXAPRO) 5-07 by mouth [facility] 20 MG 13:22: daily. of tablet 59 Medicin e Cobalamine Yes Take by [facility] Combination 5-07 mouth. [facility] (FOLIC + 13:22: of B12) 59 Medicin 800-1000 e MCG TABS Potassium Yes Take by [facility] Aminobenzoa 5-07 mouth. [facility] (POTABA) 13:22: of 500 MG TABS 59 Medicin e Cyanocobala Yes Take by [place] [facility] (B-12 5-07 mouth. [facility] [place]) 13:22: of 59 Medicin e alprazolam Yes .5mg Take 0.5 [place] [facility] (XANAX) 0.5 5-07 mg by [place] MG tablet 13:22: mouth of 59 nightly as Medicin needed for e Sleep. estrogens, Yes 1.25mg Take 1.25 [facility] conjugated, 5-07 mg by [place] (PREMARIN) 13:22: mouth of 1.25 MG 59 daily. Medicin tablet e montelukast Yes 10mg Take 10 mg [facility] (SINGULAIR) 5-07 by mouth [facility] 10 MG 13:22: daily. of tablet 59 Medicin e Acetaminoph Yes Take by [place] [facility] 5-07 mouth. [place] (TYLENOL) 13:22: of 167 MG/5ML 59 Medicin LIQD e omeprazole Yes 40mg Take 40 mg [facility] (PRILOSEC) 5-07 by mouth [facility] 40 MG 13:22: daily. of capsule 59 Medicin e MAGNESIUM Yes Take by [facility] [place] 5-07 mouth two [facility] 13:22: times of 59 daily. Medicin e clonidine Yes .1mg Take 0.1 [facility] (CATAPRES) 5-07 mg by [place] 0.1 MG 13:22: mouth as of tablet 59 needed. Medicin e escitalopra Yes 20mg Take 20 mg [facility] m (LEXAPRO) 4-16 by mouth [facility] 20 MG 16:19: daily. of tablet 43 Medicin e Cobalamine Yes Take by [facility] Combination 4-16 mouth. [facility] (FOLIC + 16:19: of B12) 43 Medicin 800-1000 e MCG TABS Potassium Yes Take by [facility] Aminobenzoa 4-16 mouth. [facility] (POTABA) 16:19: of 500 MG TABS 43 Medicin e Cyanocobala Yes Take by [place] [facility] (B-12 4-16 mouth. [place]) 16:19: of 43 Medicin e alprazolam Yes .5mg Take 0.5 [place] [facility] (XANAX) 0.5 4-16 mg by [place] MG tablet 16:19: mouth of 43 nightly as Medicin needed for e Sleep. estrogens, 0 Yes 1.25mg Take 1.25 [facility] conjugated, 4-16 mg by [place] (PREMARIN) 16:19: mouth of 1.25 MG 43 daily. Medicin tablet e montelukast Yes 10mg Take 10 mg [facility] (SINGULAIR) 4-16 by mouth [facility] 10 MG 16:19: daily. of tablet 43 Medicin e Acetaminoph Yes Take by [place] [facility] 4-16 mouth. [place] (TYLENOL) 16:19: of 167 MG/5ML 43 Medicin LIQD e omeprazole Yes 40mg Take 40 mg [facility] (PRILOSEC) 4-16 by mouth [facility] 40 MG 16:19: daily. of capsule 43 Medicin e MAGNESIUM Yes Take by [facility] [place] 4-16 mouth two [facility] 16:19: times of 43 daily. Medicin e clonidine Yes .1mg Take 0.1 [facility] (CATAPRES) 4-16 mg by [place] 0.1 MG 16:19: mouth as of tablet 43 needed. Medicin e escitalopra Yes 20mg Take 20 mg [facility] (LEXAPRO) 4-16 by mouth [facility] 20 MG 14:04: daily. of tablet 07 Medicin e Cobalamine Yes Take by [facility] Combination 4-16 mouth. [facility] [facility] (FOLIC + 14:04: of B12) 07 Medicin 800-1000 e MCG TABS Potassium Yes Take by [facility] Aminobenzoa 4-16 mouth. [facility] [facility] (POTABA) 14:04: of 500 MG TABS 07 Medicin e Cyanocobala Yes Take by [place] [facility] (B-12 4-16 mouth. [place]) 14:04: of 07 Medicin e alprazolam Yes .5mg Take 0.5 [place] [facility] (XANAX) 0.5 4-16 mg by [place] MG tablet 14:04: mouth of 07 nightly as Medicin needed for e Sleep. estrogens, Yes 1.25mg Take 1.25 [facility] conjugated, 4-16 mg by [place] (PREMARIN) 14:04: mouth of 1.25 MG 07 daily. Medicin tablet e montelukast Yes 10mg Take 10 mg [facility] (SINGULAIR) 4-16 by mouth [facility] 10 MG 14:04: daily. of tablet 07 Medicin e Acetaminoph Yes Take by [place] [facility] 4-16 mouth. [place] (TYLENOL) 14:04: of 167 MG/5ML 07 Medicin LIQD e omeprazole Yes 40mg Take 40 mg [facility] (PRILOSEC) 4-16 by mouth [facility] 40 MG 14:04: daily. of capsule 07 Medicin e MAGNESIUM Yes Take by [facility] 4-16 mouth two [facility] 14:04: times of 07 daily. Medicin e clonidine Yes .1mg Take 0.1 [facility] (CATAPRES) 4-16 mg by [place] 0.1 MG 14:04: mouth as of tablet 07 needed. Medicin e verapamil Yes 240mg Take 1 [facility] (CALAN-SR) 4-16 Tablet by [facility] 240 MG CR 00:00: mouth of tablet 00 daily. Medicin e verapamil 2020-0 Yes 240mg Take 1 [facility] (CALAN-SR) 4-16 Tablet by [facility] 240 MG CR 00:00: mouth of tablet 00 daily. Medicin e verapamil 2020-0 Yes 240mg Take 1 [facility] (CALAN-SR) 4-16 Tablet by [facility] 240 MG CR 00:00: mouth of tablet 00 daily. Medicin e verapamil 2020-0 Yes 240mg Take 1 [facility] (CALAN-SR) 4-16 Tablet by [facility] 240 MG CR 00:00: mouth of tablet 00 daily. Medicin e verapamil 2020-0 Yes 240mg Take 1 [facility] (CALAN-SR) 4-16 Tablet by [facility] 240 MG CR 00:00: mouth of tablet 00 daily. Medicin e verapamil 2021-0 Yes 240mg Take 1 [facility] (CALAN-SR) 4-16 Tablet by [facility] 240 MG CR 00:00: mouth of tablet 00 daily. Medicin e verapamil 2021-0 Yes 240mg Take 1 [facility] (CALAN-SR) 4-16 Tablet by [facility] 240 MG CR 00:00: mouth of tablet 00 daily. Medicin e verapamil 2021-0 Yes 240mg Take 1 [facility] (CALAN-SR) 4-16 Tablet by [facility] 240 MG CR 00:00: mouth of tablet 00 daily. Medicin e verapamil 2021-0 Yes 240mg Take 1 [facility] (CALAN-SR) 4-16 Tablet by [facility] 240 MG CR 00:00: mouth of tablet 00 daily. Medicin e verapamil 2021-0 Yes 240mg Take 1 [facility] (CALAN-SR) 4-16 Tablet by [facility] 240 MG CR 00:00: mouth of tablet 00 daily. Medicin e verapamil 2021-0 Yes 240mg Take 1 [facility] (CALAN-SR) 4-16 Tablet by [facility] 240 MG CR 00:00: mouth of tablet 00 daily. Medicin e verapamil 2021-0 Yes 240mg Take 1 [facility] (CALAN-SR) 4-16 Tablet by [facility] 240 MG CR 00:00: mouth of tablet 00 daily. Medicin e verapamil 2021-0 Yes 240mg Take 1 [facility] (CALAN-SR) 4-16 Tablet by [facility] 240 MG CR 00:00: mouth of tablet 00 daily. Medicin e verapamil 2021-0 Yes 240mg Take 1 [facility] (CALAN-SR) 4-16 Tablet by [facility] 240 MG CR 00:00: mouth of tablet 00 daily. Medicin e verapamil 2021-0 Yes 240mg Take 1 [facility] (CALAN-SR) 4-16 Tablet by [facility] 240 MG CR 00:00: mouth of tablet 00 daily. Medicin e verapamil 2021-0 Yes 240mg Take 1 [facility] (CALAN-SR) 4-16 Tablet by [facility] 240 MG CR 00:00: mouth of tablet 00 daily. Medicin e verapamil 2021-0 Yes 240mg Take 1 [facility] (CALAN-SR) 4-16 Tablet by [facility] 240 MG CR 00:00: mouth of tablet 00 daily. Medicin e verapamil 2021-0 Yes 240mg Take 1 [facility] (CALAN-SR) 4-16 Tablet by [facility] 240 MG CR 00:00: mouth of tablet 00 daily. Medicin e verapamil 2021-0 Yes 240mg Take 1 [facility] (CALAN-SR) 4-16 Tablet by [facility] 240 MG CR 00:00: mouth of tablet 00 daily. Medicin e verapamil 2021-0 Yes 240mg Take 1 [facility] (CALAN-SR) 4-16 Tablet by [facility] 240 MG CR 00:00: mouth of tablet 00 daily. Medicin e verapamil 2021-0 Yes 240mg Take 1 [facility] (CALAN-SR) 4-16 Tablet by [facility] 240 MG CR 00:00: mouth of tablet 00 daily. Medicin e verapamil 2021-0 Yes 240mg Take 1 [facility] (CALAN-SR) 4-16 Tablet by [facility] 240 MG CR 00:00: mouth of tablet 00 daily. Medicin e verapamil 2021-0 Yes 240mg Take 1 [facility] (CALAN-SR) 4-16 Tablet by [facility] 240 MG CR 00:00: mouth of tablet 00 daily. Medicin e verapamil 2021-0 Yes 240mg Take 1 [facility] (CALAN-SR) 4-16 Tablet by [facility] 240 MG CR 00:00: mouth of tablet 00 daily. Medicin e verapamil 2021-0 Yes 240mg Take 1 [facility] (CALAN-SR) 4-16 Tablet by [facility] 240 MG CR 00:00: mouth of tablet 00 daily. Medicin e verapamil 2021-0 Yes 240mg Take 1 [facility] (CALAN-SR) 4-16 Tablet by [facility] 240 MG CR 00:00: mouth of tablet 00 daily. Medicin e verapamil 2021-0 Yes 240mg Take 1 [facility] (CALAN-SR) 4-16 Tablet by [facility] 240 MG CR 00:00: mouth of tablet 00 daily. Medicin e verapamil 2021-0 Yes 240mg Take 1 [facility] (CALAN-SR) 4-16 Tablet by [facility] 240 MG CR 00:00: mouth of tablet 00 daily. Medicin e verapamil Yes 240mg Take 1 [facility] (CALAN-SR) 4-16 Tablet by [facility] 240 MG CR 00:00: mouth of tablet 00 daily. Medicin e verapamil 0 Yes 240mg Take 1 [facility] (CALAN-SR) 4-16 Tablet by [facility] 240 MG CR 00:00: mouth of tablet 00 daily. Medicin e verapamil 0 Yes 240mg Take 1 [facility] (CALAN-SR) 4-16 Tablet by [facility] 240 MG CR 00:00: mouth of tablet 00 daily. Medicin e verapamil Yes 240mg Take 1 [facility] (CALAN-SR) 4-16 Tablet by [facility] 240 MG CR 00:00: mouth of tablet 00 daily. Medicin e escitalopra Yes 20mg Take 20 mg [facility] m (LEXAPRO) 3- by mouth [facility] 20 MG 13:33: daily. of tablet 54 Medicin e Cobalamine Yes Take by [facility] Combination 3- mouth. [facility] (FOLIC + 13:33: of B12) 54 Medicin 800-1000 e MCG TABS Potassium Yes Take by [facility] Aminobenzoa 06-26 mouth. [facility] te (POTABA) 13:33: of 500 MG TABS 54 Medicin e Cyanocobala Yes Take by [place] [facility] (B-12 - mouth. [facility] [place]) 13:33: of 54 Medicin e alprazolam Yes .5mg Take 0.5 [place] [facility] (XANAX) 0.5 3-26 mg by [facility] MG tablet 13:33: mouth of 54 nightly as Medicin needed for e Sleep. estrogens, Yes 1.25mg Take 1.25 [facility] conjugated, 3-26 mg by [facility] (PREMARIN) 13:33: mouth of 1.25 MG 54 daily. Medicin tablet e montelukast Yes 10mg Take 10 mg [facility] (SINGULAIR) 3- by mouth [facility] 10 MG 13:33: daily. of tablet 54 Medicin e Acetaminoph Yes Take by [place] [facility] 3-26 mouth. [place] (TYLENOL) 13:33: of 167 MG/5ML 54 Medicin LIQD e omeprazole 2020-0 Yes 40mg Take 40 mg [facility] (PRILOSEC) 3-26 by mouth [facility] 40 MG 13:33: daily. of capsule 54 Medicin e MAGNESIUM 2020-0 Yes Take by [facility] [place] 3-26 mouth two [facility] 13:33: times of 54 daily. Medicin e clonidine 2020-0 Yes .1mg Take 0.1 [facility] (CATAPRES) 3-26 mg by [facility] 0.1 MG 13:33: mouth as of tablet 54 needed. Medicin e metoclopram 2020-0 Yes 10mg Take 1 [facility] 3-26 Tablet by [place] (REGLAN) 10 00:00: mouth 4 of MG tablet 00 times Medicin daily as e needed. metoclopram 2020-0 Yes 10mg Take 1 [facility]hel 3-26 Tablet by [place] (REGLAN) 10 00:00: mouth 4 of MG tablet 00 times Medicin daily as e needed. metoclopram 2020-0 Yes 10mg Take 1 [facility]hel 3-26 Tablet by [place] (REGLAN) 10 00:00: mouth 4 of MG tablet 00 times Medicin daily as e needed. metoclopram 2020-0 Yes 10mg Take 1 [facility] michel 3-26 Tablet by [place] (REGLAN) 10 00:00: mouth 4 of MG tablet 00 times Medicin daily as e needed. metoclopram 2020-0 Yes 10mg Take 1 [facility] 3-26 Tablet by [place] (REGLAN) 10 00:00: mouth 4 of MG tablet 00 times Medicin daily as e needed. metoclopram 2020-0 Yes 10mg Take 1 [facility] 3-26 Tablet by [place] (REGLAN) 10 00:00: mouth 4 of MG tablet 00 times Medicin daily as e needed. metoclopram 2020-0 Yes 10mg Take 1 [facility]hel 3-26 Tablet by [place] (REGLAN) 10 00:00: mouth 4 of MG tablet 00 times Medicin daily as e needed. metoclopram 2021-0 2021- No 10mg Take 1 [place] [facility] michel 3-26 08-27 Tablet by [place] (REGLAN) 10 00:00: 00:00 mouth 4 of MG tablet 00 :00 times Medicin daily as e needed. carvedilol Yes TAKE 2 [facility] (COREG) 25 3-15 TABLETS BY [facility] MG tablet 00:00: MOUTH of 00 TWICE Medicin DAILY e carvedilol Yes TAKE 2 [facility] (COREG) 25 3-15 TABLETS BY [facility] MG tablet 00:00: MOUTH of 00 TWICE Medicin DAILY e carvedilol Yes TAKE 2 [facility] (COREG) 25 3-15 TABLETS BY [facility] MG tablet 00:00: MOUTH of 00 TWICE Medicin DAILY e carvedilol Yes TAKE 2 [facility] (COREG) 25 3-15 TABLETS BY [facility] MG tablet 00:00: MOUTH of 00 TWICE Medicin DAILY e carvedilol Yes TAKE 2 [facility] (COREG) 25 3-15 TABLETS BY [facility] MG tablet 00:00: MOUTH of 00 TWICE Medicin DAILY e carvedilol Yes TAKE 2 [facility] (COREG) 25 3-15 TABLETS BY [facility] MG tablet 00:00: MOUTH of 00 TWICE Medicin DAILY e carvedilol Yes TAKE 2 [facility] (COREG) 25 3-15 TABLETS BY [facility] MG tablet 00:00: MOUTH of 00 TWICE Medicin DAILY e carvedilol Yes TAKE 2 [facility] (COREG) 25 3-15 TABLETS BY [facility] MG tablet 00:00: MOUTH of 00 TWICE Medicin DAILY e carvedilol Yes TAKE 2 [facility] (COREG) 25 3-15 TABLETS BY [facility] MG tablet 00:00: MOUTH of 00 TWICE Medicin DAILY e gabapentin 2020- No 300mg Take 300 [facility] (NEURONTIN) 3-05 03-05 mg by [facility] 300 MG 15:36: 00:00 mouth 3 of capsule 08 :00 times Medicin daily. e escitalopra Yes 20mg Take 20 mg [facility] m (LEXAPRO) 3-05 by mouth [facility] 20 MG 14:41: daily. of tablet 33 Medicin e Cobalamine Yes Take by [facility] Combination 3-05 mouth. [facility] [facility] (FOLIC + 14:41: of B12) 33 Medicin 800-1000 e MCG TABS Potassium Yes Take by [facility] Aminobenzoa 3-05 mouth. [facility] (POTABA) 14:41: of 500 MG TABS 33 Medicin e Cyanocobala Yes Take by [place] [facility] (B-12 3-05 mouth. [place]) 14:41: of 33 Medicin e alprazolam Yes .5mg Take 0.5 [place] [facility] (XANAX) 0.5 3-05 mg by [place] MG tablet 14:41: mouth of 33 nightly as Medicin needed for e Sleep. estrogens, Yes 1.25mg Take 1.25 [facility] conjugated, 3-05 mg by [place] (PREMARIN) 14:41: mouth of 1.25 MG 33 daily. Medicin tablet e montelukast Yes 10mg Take 10 mg [facility] (SINGULAIR) 3-05 by mouth [facility] 10 MG 14:41: daily. of tablet 33 Medicin e Acetaminoph Yes Take by [place] [facility] 3-05 mouth. [place] (TYLENOL) 14:41: of 167 MG/5ML 33 Medicin LIQD e omeprazole Yes 40mg Take 40 mg [facility] (PRILOSEC) 06-05 by mouth [facility] 40 MG 14:41: daily. of capsule 33 Medicin e MAGNESIUM Yes Take by [facility] [place] 3-05 mouth two [place] 14:41: times of 33 daily. Medicin e clonidine Yes .1mg Take 0.1 [facility] (CATAPRES) 3-05 mg by [place] 0.1 MG 14:41: mouth as of tablet 33 needed. Medicin e gabapentin 2020- No [id number] 100mg 1 capsule [facility] (NEURONTIN) 06-05 Use as [facility] 100 MG 00:00: 04:59 Directed of capsule 00 :00 for 30 Medicin days. Take e 100 mg twice daily during day. Take 300 mg at night before bedtime. Total 500mg daily Axitinib 5 2020- No [id number] 5mg Take 5 mg [facility] MG TABS 06-05 by mouth [place] 00:00: 04:59 two times of 00 :00 daily for Medicin 30 days. e gabapentin 2020- No [id number] 100mg 1 capsule [facility] (NEURONTIN) 06-05 Use as [facility] 100 MG 00:00: 04:59 Directed of capsule 00 :00 for 30 Medicin days. Take e 100 mg twice daily during day. Take 300 mg at night before bedtime. Total 500mg daily Axitinib 5 2020- No [id number] 5mg Take 5 mg [facility] MG TABS 06-05 by mouth [facility] 00:00: 04:59 two times of 00 :00 daily for Medicin 30 days. e clopidogrel Yes TAKE 1 [facility] (PLAVIX) 75 2-09 TABLET BY [facility] MG Tablet 00:00: MOUTH of 00 EVERY DAY Medicin e clopidogrel Yes TAKE 1 [facility] (PLAVIX) 75 2-09 TABLET BY [facility] MG Tablet 00:00: MOUTH of 00 EVERY DAY Medicin e clopidogrel Yes TAKE 1 [facility] (PLAVIX) 75 2-09 TABLET BY [facility] MG Tablet 00:00: MOUTH of 00 EVERY DAY Medicin e clopidogrel Yes TAKE 1 [facility] (PLAVIX) 75 2-09 TABLET BY [facility] MG Tablet 00:00: MOUTH of 00 EVERY DAY Medicin e clopidogrel Yes TAKE 1 [facility] (PLAVIX) 75 2-09 TABLET BY [facility] MG Tablet 00:00: MOUTH of 00 EVERY DAY Medicin e clopidogrel Yes TAKE 1 [facility] (PLAVIX) 75 2-09 TABLET BY [facility] MG Tablet 00:00: MOUTH of 00 EVERY DAY Medicin e clopidogrel Yes TAKE 1 [facility] (PLAVIX) 75 2-09 TABLET BY [facility] MG Tablet 00:00: MOUTH of 00 EVERY DAY Medicin e clopidogrel 2020- Yes TAKE 1 [facility] (PLAVIX) 75 2-09 TABLET BY [facility] MG Tablet 00:00: MOUTH of 00 EVERY DAY Medicin e clopidogrel Yes TAKE 1 [facility] (PLAVIX) 75 2-09 TABLET BY [facility] MG Tablet 00:00: MOUTH of 00 EVERY DAY Medicin e verapamil Yes TAKE 1 [facility] (CALAN-SR) 2-09 TABLET BY [facility] 180 MG CR 00:00: MOUTH of tablet 00 DAILY. Medicin e clopidogrel 2020-0 Yes TAKE 1 [facility] (PLAVIX) 75 2-09 TABLET BY [facility] MG Tablet 00:00: MOUTH of 00 EVERY DAY Medicin e verapamil 2020-0 Yes TAKE 1 [facility] (CALAN-SR) 2-09 TABLET BY [facility] 180 MG CR 00:00: MOUTH of tablet 00 DAILY. Medicin e clopidogrel 2020-0 Yes TAKE 1 [facility] (PLAVIX) 75 2-09 TABLET BY [facility] MG Tablet 00:00: MOUTH of 00 EVERY DAY Medicin e verapamil 2020-0 Yes TAKE 1 [facility] (CALAN-SR) 2-09 TABLET BY [facility] 180 MG CR 00:00: MOUTH of tablet 00 DAILY. Medicin e clopidogrel 2020-0 Yes TAKE 1 [facility] (PLAVIX) 75 2-09 TABLET BY [facility] MG Tablet 00:00: MOUTH of 00 EVERY DAY Medicin e clopidogrel 2020-0 Yes TAKE 1 [facility] (PLAVIX) 75 2-09 TABLET BY [facility] MG Tablet 00:00: MOUTH of 00 EVERY DAY Medicin e clopidogrel 2020-0 Yes TAKE 1 [facility] (PLAVIX) 75 2-09 TABLET BY [facility] MG Tablet 00:00: MOUTH of 00 EVERY DAY Medicin e clopidogrel 2020-0 Yes TAKE 1 [facility] (PLAVIX) 75 2-09 TABLET BY [facility] MG Tablet 00:00: MOUTH of 00 EVERY DAY Medicin e clopidogrel 2020-0 Yes TAKE 1 [facility] (PLAVIX) 75 2-09 TABLET BY [facility] MG Tablet 00:00: MOUTH of 00 EVERY DAY Medicin e clopidogrel 2020-0 Yes TAKE 1 [facility] (PLAVIX) 75 2-09 TABLET BY [facility] MG Tablet 00:00: MOUTH of 00 EVERY DAY Medicin e clopidogrel 2020-0 Yes TAKE 1 [facility] (PLAVIX) 75 2-09 TABLET BY [facility] MG Tablet 00:00: MOUTH of 00 EVERY DAY Medicin e clopidogrel 2020-0 Yes TAKE 1 [facility] (PLAVIX) 75 2-09 TABLET BY [facility] MG Tablet 00:00: MOUTH of 00 EVERY DAY Medicin e clopidogrel 2020-0 Yes TAKE 1 [facility] (PLAVIX) 75 2- TABLET BY [facility] MG Tablet 00:00: MOUTH of 00 EVERY DAY Medicin e verapamil 2020-2020- No TAKE 1 [facility] (CALAN-SR) 05-12 04-16 TABLET BY [facility] 180 MG CR 00:00: 00:00 MOUTH of tablet 00 :00 DAILY. Medicin e escitalopra Yes 20mg Take 20 mg [facility] (LEXAPRO) 05-01 by mouth [facility] 20 MG 16:30: daily. of tablet 35 Medicin e Cobalamine Yes Take by [facility] Combination 05-01 mouth. [facility] (FOLIC + 16:30: of B12) 35 Medicin 800-1000 e MCG TABS Potassium Yes Take by [facility] Aminobenzoa 05-01 mouth. [facility] (POTABA) 16:30: of 500 MG TABS 35 Medicin e Cyanocobala Yes Take by [facility] [facility] (B-12 05-01 mouth. [facility]) 16:30: of 35 Medicin e alprazolam Yes .5mg Take 0.5 [facility] (XANAX) 0.5 -29 mg by [place] MG tablet 16:30: mouth of 35 nightly as Medicin needed for e Sleep. estrogens, Yes 1.25mg Take 1.25 [facility] conjugated, 1-29 mg by [place] (PREMARIN) 16:30: mouth of 1.25 MG 35 daily. Medicin tablet e gabapentin Yes 300mg Take 300 [facility] (NEURONTIN) 1-29 mg by [place] 300 MG 16:30: mouth 3 of capsule 35 times Medicin daily. e montelukast Yes 10mg Take 10 mg [facility] (SINGULAIR) 05-01 by mouth [facility] 10 MG 16:30: daily. of tablet 35 Medicin e Acetaminoph Yes Take by [place] [facility] 05-01 mouth. [place] (TYLENOL) 16:30: of 167 MG/5ML 35 Medicin LIQD e omeprazole Yes 40mg Take 40 mg [facility] (PRILOSEC) 05-01 by mouth [facility] 40 MG 16:30: daily. of capsule 35 Medicin e MAGNESIUM Yes Take by [facility] 1-29 mouth two [facility] 16:30: times of 35 daily. Medicin e clonidine Yes .1mg Take 0.1 [facility] (CATAPRES) 1-29 mg by [facility] 0.1 MG 16:30: mouth as of tablet 35 needed. Medicin e tiotropium Yes 1{capsu QD Place 1 [facility] (SPIRIVA) 1-25 le} capsule st 18 mcg per 18:57: into [facility] inhalation 08 inhaler l capsule and inhale once daily. carvediloL Yes 25mg Take 25 mg [facility] (COREG) 25 1-[address] MG tablet 18:57: once. [facility]osp[facility] 08 l oxybutynin Yes 10mg QD Take 10 mg [facility] (DITROPAN) 1-[address] 5 MG tablet 18:57: daily. [facility]osp [facility] 08 l montelukast Yes 10mg QD Take 10 mg [facility] (SINGULAIR) 1-[address] 10 mg 18:57: daily. [facility]osp[facility] tablet 08 l ondansetron Yes 4mg Q8H Take 4 mg [facility] (ZOFRAN) 4 1-[address] MG tablet 18:57: every 8 Hospi ta 08 (eight) l hours as needed for nausea or vomiting. estrogens, Yes 1.25mg QD Take 1.25 [facility] conjugated, 1-[address] (PREMARIN) 18:57: mouth Hospit a 1.25 MG 08 daily. l tablet omeprazole Yes 40mg QD Take 40 mg [facility] (PriLOSEC) 1-[address] 40 MG 18:57: daily. [facility]osp[facility] capsule 08 l levothyroxi Yes 200ug QD Take 200 [facility] ne 1-[address] (SYNTHROID) 18:57: mouth Hospi ta 200 mcg 08 daily. l tablet liothyronin Yes 5ug QD Take 5 mcg [facility] (CYTOMEL) 1-[address] 5 MCG 18:57: daily. [facility]osp[facility] tablet 08 l lovastatin Yes 10mg QD Take 10 mg [facility] (MEVACOR) 1-[address] 10 MG 18:57: nightly. [facility]osp[facility] tablet 08 l furosemide Yes 20mg Q.5D Take 20 mg [facility] (LASIX) 20 -[address] mg tablet 18:57: (two) Hospita 08 times a l day. candesartan Yes 32mg QD Take 32 mg [facility] (ATACAND) -[address] 32 MG 18:57: daily. [facility]ospita tablet 08 l clopidogreL Yes 75mg QD Take 75 mg [facility] (PLAVIX) 75 -[address] mg tablet 18:57: daily. Hospit a 08 l ALPRAZolam Yes .5mg QD Take 0.5 [facility] (XANAX) 0.5 1-[address] MG tablet 18:57: mouth [facility]ospita 08 nightly as l needed for anxiety. escitalopra 2019-04 Yes 20mg Take 20 mg [facility] m (LEXAPRO) 2-18 by mouth [facility] 20 MG 21:26: daily. of tablet 52 Medicin e Cobalamine 2019-04 Yes Take by [facility] Combination 2-18 mouth. [facility] (FOLIC + 21:26: of B12) 52 Medicin 800-1000 e MCG TABS Potassium 2019-04 Yes Take by [facility] Aminobenzoa 2-18 mouth. [facility] (POTABA) 21:26: of 500 MG TABS 52 Medicin e Cyanocobala 2019-04 Yes Take by [facility] [facility] (B-12 2-18 mouth. [facility]) 21:26: of 52 Medicin e alprazolam 2019-04 Yes .5mg Take 0.5 [facility] (XANAX) 0.5 2-18 mg by [place] MG tablet 21:26: mouth of 52 nightly as Medicin needed for e Sleep. estrogens, 2019-04 Yes 1.25mg Take 1.25 [facility] conjugated, 2-18 mg by [facility] (PREMARIN) 21:26: mouth of 1.25 MG 52 daily. Medicin tablet e gabapentin 2019-04 Yes 300mg Take 300 [facility] (NEURONTIN) 2-18 mg by [facility] 300 MG 21:26: mouth 3 of capsule 52 times Medicin daily. e montelukast 2019-04 Yes 10mg Take 10 mg [facility] (SINGULAIR) 2-18 by mouth [place] [facility] 10 MG 21:26: daily. of tablet 52 Medicin e Acetaminoph 2019-04 Yes Take by [place] en 2-18 mouth. [place] (TYLENOL) 21:26: of 167 MG/5ML 52 Medicin LIQD e omeprazole 2019-04 Yes 40mg Take 40 mg [facility] (PRILOSEC) 2-18 by mouth [facility] 40 MG 21:26: daily. of capsule 52 Medicin e MAGNESIUM 2019-04 Yes Take by [place] 2-18 mouth two [facility] 21:26: times of 52 daily. Medicin e clonidine 2019-04 Yes .1mg Take 0.1 [place] [facility] (CATAPRES) 2-18 mg by [place] 0.1 MG 21:26: mouth as of tablet 52 needed. Medicin e escitalopra 2019-04 Yes 20mg Take 20 mg [facility] m (LEXAPRO) 27 by mouth [place] 20 MG 19:48: daily. of tablet 06 Medicin e Cobalamine 2019-04 Yes Take by [place] Combination 27 mouth. [place] [facility] (FOLIC + 19:48: of B12) 06 Medicin 800-1000 e MCG TABS Potassium 2019-04 Yes Take by [facility] Aminobenzoa 27 mouth. [place] [facility] (POTABA) 19:48: of 500 MG TABS 06 Medicin e Cyanocobala 2019-04 Yes Take by [place] [facility] (B-12 27 mouth. [facility] [place]) 19:48: of 06 Medicin e alprazolam 2019-04 Yes .5mg Take 0.5 [place] [facility] (XANAX) 0.5 1-27 mg by [place] MG tablet 19:48: mouth of 06 nightly as Medicin needed for e Sleep. estrogens, 2019-04 Yes 1.25mg Take 1.25 [facility] conjugated, 1-27 mg by [place] (PREMARIN) 19:48: mouth of 1.25 MG 06 daily. Medicin tablet e gabapentin 2019-04 Yes 300mg Take 300 [facility] (NEURONTIN) 1-27 mg by [place] 300 MG 19:48: mouth 3 of capsule 06 times Medicin daily. e montelukast 2019-04 Yes 10mg Take 10 mg [facility] (SINGULAIR) 27 by mouth [facility] 10 MG 19:48: daily. of tablet Medicin e Acetaminoph 2019-04 Yes Take by [place] [facility] 04-29 mouth. [place] (TYLENOL) 19:48: of 167 MG/5ML Medicin LIQD e omeprazole 2019-04 Yes 40mg Take 40 mg [facility] (PRILOSEC) 04-29 by mouth [facility] 40 MG 19:48: daily. of capsule Medicin e MAGNESIUM 2019-04 Yes Take by [facility] 04-29 mouth two [facility] 19:48: times of 06 daily. Medicin e clonidine 2019-04 Yes .1mg Take 0.1 [facility] (CATAPRES) - mg by [place] 0.1 MG 19:48: mouth as of tablet 06 needed. Medicin e candesartan 2019-04 Yes [id number] TAKE 1 [facility] (ATACAND) 1-06 TABLET BY Colle ge 32 MG 00:00: MOUTH of tablet 00 EVERY DAY Medicin e candesartan 2019-04 Yes [id number] TAKE 1 [facility] (ATACAND) 1-06 TABLET BY Colle [facility] 32 MG 00:00: MOUTH of tablet 00 EVERY DAY Medicin e candesartan 2019-04 Yes [id number] TAKE 1 [facility] (ATACAND) 1-06 TABLET BY [facility] 32 MG 00:00: MOUTH of tablet 00 EVERY DAY Medicin e candesartan 2019-04 Yes [id number] TAKE 1 [facility] (ATACAND) 1-06 TABLET BY [facility] 32 MG 00:00: MOUTH of tablet 00 EVERY DAY Medicin e candesartan 2019-04 Yes [id number] TAKE 1 [facility] (ATACAND) 1-06 TABLET BY [facility]le [facility] 32 MG 00:00: MOUTH of tablet 00 EVERY DAY Medicin e candesartan 2019-04 Yes [id number] TAKE 1 [facility] (ATACAND) 1-06 TABLET BY [facility] 32 MG 00:00: MOUTH of tablet 00 EVERY DAY Medicin e candesartan 2019-04 Yes [id number] TAKE 1 [facility] (ATACAND) 1-06 TABLET BY [facility] 32 MG 00:00: MOUTH of tablet 00 EVERY DAY Medicin e candesartan 2019-04 Yes [id number] TAKE 1 [facility] (ATACAND) 1-06 TABLET BY [facility] 32 MG 00:00: MOUTH of tablet 00 EVERY DAY Medicin e candesartan 2019-04 Yes [id number] TAKE 1 [facility] (ATACAND) 1-06 TABLET BY [facility] 32 MG 00:00: MOUTH of tablet 00 EVERY DAY Medicin e candesartan 2019-04 Yes [id number] TAKE 1 [facility] (ATACAND) 1-06 TABLET BY [facility] 32 MG 00:00: MOUTH of tablet 00 EVERY DAY Medicin e candesartan 2019-04 Yes [id number] TAKE 1 [facility] (ATACAND) 1-06 TABLET BY [facility] 32 MG 00:00: MOUTH of tablet 00 EVERY DAY Medicin e escitalopra 2019-04 Yes 20mg Take 20 mg [facility] (LEXAPRO) 0-14 by mouth [facility] 20 MG 13:38: daily. of tablet 19 Medicin e Cobalamine 2019-04 Yes Take by [facility] Combination 0-14 mouth. [facility] [facility] (FOLIC + 13:38: of B12) 19 Medicin 800-1000 e MCG TABS Potassium 2019-04 Yes Take by [facility] 0-14 mouth. [place] [facility] (POTABA) 13:38: of 500 MG TABS 19 Medicin e Cyanocobala 2019-04 Yes Take by [place] [facility] (B-12 0-14 mouth. [facility]) 13:38: of 19 Medicin e alprazolam 2019-04 Yes .5mg Take 0.5 [place] [facility] (XANAX) 0.5 0-14 mg by [place] MG tablet 13:38: mouth of 19 nightly as Medicin needed for e Sleep. estrogens, 2019-04 Yes 1.25mg Take 1.25 [facility] conjugated, 0-14 mg by [place] (PREMARIN) 13:38: mouth of 1.25 MG 19 daily. Medicin tablet e gabapentin 2019-04 Yes 300mg Take 300 [facility] (NEURONTIN) 0-14 mg by [place] 300 MG 13:38: mouth 3 of capsule 19 times Medicin daily. e montelukast 2019-04 Yes 10mg Take 10 mg [facility] (SINGULAIR) 0-14 by mouth [facility] 10 MG 13:38: daily. of tablet 19 Medicin e Acetaminoph 2019-04 Yes Take by [place] [facility] 0-14 mouth. [place] (TYLENOL) 13:38: of 167 MG/5ML 19 Medicin LIQD e omeprazole 2020-1 Yes 40mg Take 40 mg [facility] (PRILOSEC) 0-14 by mouth [facility] 40 MG 13:38: daily. of capsule 19 Medicin e MAGNESIUM 2019-1 Yes Take by [facility] [place] 0-14 mouth two [facility] 13:38: times of 19 daily. Medicin e clonidine 2020-1 Yes .1mg Take 0.1 [facility] (CATAPRES) 0-14 mg by [facility] 0.1 MG 13:38: mouth as of tablet 19 needed. Medicin e guanfacine 2019- Yes 1mg Take 1 Tab [facility] (TENEX) 1 0-10 by mouth [facility] MG tablet 00:00: daily. One of 00 tag orally Medicin at bedtime e guanfacine 2019- Yes 1mg Take 1 Tab [facility] (TENEX) 1 0-10 by mouth [facility] MG tablet 00:00: daily. One of 00 tag orally Medicin at bedtime e guanfacine 2020- Yes 1mg Take 1 Tab [facility] (TENEX) 1 0-10 by mouth [facility] MG tablet 00:00: daily. One of 00 tag orally Medicin at bedtime e guanfacine 2020-1 Yes 1mg Take 1 Tab [facility] (TENEX) 1 0-10 by mouth [facility] MG tablet 00:00: daily. One of 00 tag orally Medicin at bedtime e guanfacine 2020-1 Yes 1mg Take 1 Tab [facility] (TENEX) 1 0-10 by mouth [facility] MG tablet 00:00: daily. One of 00 tag orally Medicin at bedtime e guanfacine 2020-1 Yes 1mg Take 1 Tab [facility] (TENEX) 1 0-10 by mouth [facility] MG tablet 00:00: daily. One of 00 tag orally Medicin at bedtime e guanfacine 2020-1 Yes 1mg Take 1 Tab [facility] (TENEX) 1 0-10 by mouth [facility] MG tablet 00:00: daily. One of 00 tag orally Medicin at bedtime e guanfacine 2020-1 Yes 1mg Take 1 Tab [facility] (TENEX) 1 0-10 by mouth [facility] MG tablet 00:00: daily. One of 00 tag orally Medicin at bedtime e guanfacine 2020-1 Yes 1mg Take 1 Tab [facility] (TENEX) 1 0-10 by mouth [facility] MG tablet 00:00: daily. One of 00 tag orally Medicin at bedtime e guanfacine 2020-1 Yes 1mg Take 1 Tab [facility] (TENEX) 1 0-10 by mouth [facility] MG tablet 00:00: daily. One of 00 tag orally Medicin at bedtime e guanfacine 2020-1 Yes 1mg Take 1 Tab [facility] (TENEX) 1 0-10 by mouth [facility] MG tablet 00:00: daily. One of 00 tag orally Medicin at bedtime e guanfacine 2020-1 Yes 1mg Take 1 Tab [facility] (TENEX) 1 0-10 by mouth [facility] MG tablet 00:00: daily. One of 00 tag orally Medicin at bedtime e guanfacine 2020-1 Yes 1mg Take 1 Tab [facility] (TENEX) 1 0-10 by mouth [facility] MG tablet 00:00: daily. One of 00 tag orally Medicin at bedtime e guanfacine 2020-1 Yes 1mg Take 1 Tab [facility] (TENEX) 1 0-10 by mouth [facility] MG tablet 00:00: daily. One of 00 tag orally Medicin at bedtime e guanfacine 2020-1 Yes 1mg Take 1 Tab [facility] (TENEX) 1 0-10 by mouth [facility] MG tablet 00:00: daily. One of 00 tag orally Medicin at bedtime e guanfacine 2020-1 Yes 1mg Take 1 Tab [facility] (TENEX) 1 0-10 by mouth [facility] MG tablet 00:00: daily. One of 00 tag orally Medicin at bedtime e guanfacine 2020-1 Yes 1mg Take 1 Tab [facility] (TENEX) 1 0-10 by mouth [facility] MG tablet 00:00: daily. One of 00 tag orally Medicin at bedtime e guanfacine 2020-1 Yes 1mg Take 1 Tab [facility] (TENEX) 1 0-10 by mouth [facility] MG tablet 00:00: daily. One of 00 tag orally Medicin at bedtime e guanfacine 2020-1 Yes 1mg Take 1 Tab [facility] (TENEX) 1 0-10 by mouth [facility] MG tablet 00:00: daily. One of 00 tag orally Medicin at bedtime e guanfacine 2020-1 Yes 1mg Take 1 Tab [facility] (TENEX) 1 0-10 by mouth [facility] MG tablet 00:00: daily. One of 00 tag orally Medicin at bedtime e guanfacine 2020-1 Yes 1mg Take 1 Tab [facility] (TENEX) 1 0-10 by mouth [facility] MG tablet 00:00: daily. One of 00 tag orally Medicin at bedtime e guanfacine 2020-1 Yes 1mg Take 1 Tab [facility] (TENEX) 1 0-10 by mouth [facility] MG tablet 00:00: daily. One of 00 tag orally Medicin at bedtime e guanfacine 2020-1 Yes 1mg Take 1 Tab [facility] (TENEX) 1 0-10 by mouth [facility] MG tablet 00:00: daily. One of 00 tag orally Medicin at bedtime e guanfacine 2020-1 Yes 1mg Take 1 Tab [facility] (TENEX) 1 0-10 by mouth [facility] MG tablet 00:00: daily. One of 00 tag orally Medicin at bedtime e guanfacine 2020-1 Yes 1mg Take 1 Tab [facility] (TENEX) 1 0-10 by mouth [facility] MG tablet 00:00: daily. One of 00 tag orally Medicin at bedtime e guanfacine 2020-1 Yes 1mg Take 1 Tab [facility] (TENEX) 1 0-10 by mouth [facility] MG tablet 00:00: daily. One of 00 tag orally Medicin at bedtime e guanfacine 2020-1 Yes 1mg Take 1 Tab [facility] (TENEX) 1 0-10 by mouth [facility] MG tablet 00:00: daily. One of 00 tag orally Medicin at bedtime e guanfacine 2020-1 Yes 1mg Take 1 Tab [facility] (TENEX) 1 0-10 by mouth [facility] MG tablet 00:00: daily. One of 00 tag orally Medicin at bedtime e guanfacine 2020-1 Yes 1mg Take 1 Tab [facility] (TENEX) 1 0-10 by mouth [facility] MG tablet 00:00: daily. One of 00 tag orally Medicin at bedtime e guanfacine 2020-1 Yes 1mg Take 1 Tab [facility] (TENEX) 1 0-10 by mouth [facility] MG tablet 00:00: daily. One of 00 tag orally Medicin at bedtime e guanfacine 2020-1 Yes 1mg Take 1 Tab [facility] (TENEX) 1 0-10 by mouth [facility] MG tablet 00:00: daily. One of 00 tag orally Medicin at bedtime e guanfacine 2020-1 Yes 1mg Take 1 Tab [facility] (TENEX) 1 0-10 by mouth [facility] MG tablet 00:00: daily. One of 00 tag orally Medicin at bedtime e guanfacine 2020-1 Yes 1mg Take 1 Tab [facility] (TENEX) 1 0-10 by mouth [facility] MG tablet 00:00: daily. One of 00 tag orally Medicin at bedtime e guanfacine 2020-1 Yes 1mg Take 1 Tab [facility] (TENEX) 1 0-10 by mouth [facility] MG tablet 00:00: daily. One of 00 tag orally Medicin at bedtime e guanfacine 2020-1 Yes 1mg Take 1 Tab [facility] (TENEX) 1 0-10 by mouth [facility] MG tablet 00:00: daily. One of 00 tag orally Medicin at bedtime e guanfacine 2020-1 Yes 1mg Take 1 Tab [facility] (TENEX) 1 0-10 by mouth [facility] MG tablet 00:00: daily. One of 00 tag orally Medicin at bedtime e guanfacine 2020-1 Yes 1mg Take 1 Tab [facility] (TENEX) 1 0-10 by mouth [facility] MG tablet 00:00: daily. One of 00 tag orally Medicin at bedtime e guanfacine 2020-1 Yes 1mg Take 1 Tab [facility] (TENEX) 1 0-10 by mouth [facility] MG tablet 00:00: daily. One of 00 tag orally Medicin at bedtime e guanfacine 2020-1 Yes 1mg Take 1 Tab [facility] (TENEX) 1 0-10 by mouth [facility] MG tablet 00:00: daily. One of 00 tag orally Medicin at bedtime e guanfacine 2020-1 Yes 1mg Take 1 Tab [facility] (TENEX) 1 0-10 by mouth [facility] MG tablet 00:00: daily. One of 00 tag orally Medicin at bedtime e guanfacine 2020-1 Yes 1mg Take 1 Tab [facility] (TENEX) 1 0-10 by mouth [facility] MG tablet 00:00: daily. One of 00 tag orally Medicin at bedtime e guanfacine 2020-1 Yes 1mg Take 1 Tab [facility] (TENEX) 1 0-10 by mouth [facility] MG tablet 00:00: daily. One of 00 tag orally Medicin at bedtime e guanfacine 2020-1 Yes 1mg Take 1 Tab [facility] (TENEX) 1 0-10 by mouth [facility] MG tablet 00:00: daily. One of 00 tag orally Medicin at bedtime e guanfacine 2020-1 Yes 1mg Take 1 Tab [facility] (TENEX) 1 0-10 by mouth [facility] MG tablet 00:00: daily. One of 00 tag orally Medicin at bedtime e guanfacine 2020-1 Yes 1mg Take 1 Tab [facility] (TENEX) 1 0-10 by mouth [facility] MG tablet 00:00: daily. One of 00 tag orally Medicin at bedtime e guanfacine 2020-1 Yes 1mg Take 1 Tab [facility] (TENEX) 1 0-10 by mouth [facility] MG tablet 00:00: daily. One of 00 tag orally Medicin at bedtime e guanfacine 2020-1 Yes 1mg Take 1 Tab [facility] (TENEX) 1 0-10 by mouth [facility] MG tablet 00:00: daily. One of 00 tag orally Medicin at bedtime e guanfacine 2020-1 Yes 1mg Take 1 Tab [facility] (TENEX) 1 0-10 by mouth [facility] MG tablet 00:00: daily. One of 00 tag orally Medicin at bedtime e guanfacine 2020-1 Yes 1mg Take 1 Tab [facility] (TENEX) 1 0-10 by mouth [facility] MG tablet 00:00: daily. One of 00 tag orally Medicin at bedtime e guanfacine 2020-1 Yes 1mg Take 1 Tab [facility] (TENEX) 1 0-10 by mouth [facility] MG tablet 00:00: daily. One of 00 tag orally Medicin at bedtime e guanfacine 2020-1 Yes 1mg Take 1 Tab [facility] (TENEX) 1 0-10 by mouth [facility] MG tablet 00:00: daily. One of 00 tag orally Medicin at bedtime e guanfacine 2019-04 Yes 1mg Take 1 Tab [facility] (TENEX) 1 0-10 by mouth [facility] MG tablet 00:00: daily. One of 00 tag orally Medicin at bedtime e guanfacine 2019- Yes 1mg Take 1 Tab [facility] (TENEX) 1 0-10 by mouth [facility] MG tablet 00:00: daily. One of 00 tag orally Medicin at bedtime e guanfacine 2019- Yes 1mg Take 1 Tab [facility] (TENEX) 1 0-10 by mouth [facility] MG tablet 00:00: daily. One of 00 tag orally Medicin at bedtime e guanfacine 2019- Yes 1mg Take 1 Tab [facility] (TENEX) 1 0-10 by mouth [facility] MG tablet 00:00: daily. One of tag orally Medicin at bedtime e guanfacine 2019-04 Yes 1mg Take 1 Tab [facility] (TENEX) 1 0-10 by mouth [facility] MG tablet 00:00: daily. One of 00 tag orally Medicin at bedtime e guanfacine 2019-04 Yes 1mg Take 1 Tab [facility] (TENEX) 1 0-10 by mouth [facility] MG tablet 00:00: daily. One of 00 tag orally Medicin at bedtime e escitalopra 2019-04 Yes 20mg Take 20 mg [facility] (LEXAPRO) 0-08 by mouth [facility] 20 MG 19:45: daily. of tablet 17 Medicin e Cobalamine 2019-04 Yes Take by [facility] Combination 0-08 mouth. [place] [facility] (FOLIC + 19:45: of B12) 17 Medicin 800-1000 e MCG TABS Potassium 2019-04 Yes Take by [facility] 0-08 mouth. [facility] (POTABA) 19:45: of 500 MG TABS 17 Medicin e Cyanocobala 2019-04 Yes Take by [place] [facility] (B-12 0-08 mouth. [facility] OR) 19:45: of 17 Medicin e alprazolam 2019-04 Yes .5mg Take 0.5 [place] [facility] (XANAX) 0.5 0-08 mg by [facility] MG tablet 19:45: mouth of 17 nightly as Medicin needed for e Sleep. estrogens, 2020-1 Yes 1.25mg Take 1.25 [facility] conjugated, 0-08 mg by [place] (PREMARIN) 19:45: mouth of 1.25 MG 17 daily. Medicin tablet e gabapentin 2019-04 Yes 300mg Take 300 [facility] (NEURONTIN) 0-08 mg by [place] 300 MG 19:45: mouth 3 of capsule 17 times Medicin daily. e montelukast 2019- Yes 10mg Take 10 mg [facility] (SINGULAIR) 0-08 by mouth [facility] 10 MG 19:45: daily. of tablet 17 Medicin e Acetaminoph 2019-04 Yes Take by [place] [facility] 0-08 mouth. [place] (TYLENOL) 19:45: of 167 MG/5ML 17 Medicin LIQD e omeprazole 2019-04 Yes 40mg Take 40 mg [facility] (PRILOSEC) 0-08 by mouth [facility] 40 MG 19:45: daily. of capsule 17 Medicin e MAGNESIUM 2019- Yes Take by [facility] [place] 0-08 mouth two [place] 19:45: times of 17 daily. Medicin e escitalopra 2019- Yes 20mg Take 20 mg [facility] m (LEXAPRO) 9-28 by mouth [facility] 20 MG 18:54: daily. of tablet 52 Medicin e Cobalamine 2019- Yes Take by [facility] Combination 9- mouth. [place] [facility] (FOLIC + 18:54: of B12) 52 Medicin 800-1000 e MCG TABS Potassium 2019-0 Yes Take by [facility] 9-28 mouth. [place] [facility] (POTABA) 18:54: of 500 MG TABS 52 Medicin e Cyanocobala 2019-0 Yes Take by [place] [facility] (B-12 9-28 mouth. [place]) 18:54: of 52 Medicin e alprazolam 2020-0 Yes .5mg Take 0.5 [place] [facility] (XANAX) 0.5 9-28 mg by [place] MG tablet 18:54: mouth of 52 nightly as Medicin needed for e Sleep. estrogens, 2020-0 Yes 1.25mg Take 1.25 [facility] conjugated, 9-28 mg by [place] (PREMARIN) 18:54: mouth of 1.25 MG 52 daily. Medicin tablet e gabapentin 2019-0 Yes 300mg Take 300 [facility] (NEURONTIN) 9-28 mg by [facility] 300 MG 18:54: mouth 3 of capsule 52 times Medicin daily. e montelukast 2020-0 Yes 10mg Take 10 mg [facility] (SINGULAIR) 12-29 by mouth [facility] 10 MG 18:54: daily. of tablet 52 Medicin e Acetaminoph 2020-0 Yes Take by [place] [facility] 12-29 mouth. [place] (TYLENOL) 18:54: of 167 MG/5ML 52 Medicin LIQD e omeprazole 2020-0 Yes 40mg Take 40 mg [facility] (PRILOSEC) 12-29 by mouth [facility] 40 MG 18:54: daily. of capsule 52 Medicin e MAGNESIUM 2020-0 Yes Take by [facility] [place] 12-29 mouth two [facility] 18:54: times of 52 daily. Medicin e clonidine 2020-0 Yes .1mg Take 0.1 [facility] (CATAPRES) 9-28 mg by [place] 0.1 MG 18:54: mouth as of tablet 52 needed. Medicin e clonidine 2020-0 Yes .1mg Take 0.1 [facility] (CATAPRES) 9-28 mg by [place] 0.1 MG 18:54: mouth as of tablet 52 needed. Medicin e verapamil 2020-0 Yes 180mg QD Take 180 [facility] sustained [facility]-[address] [facility] 00[facility] (CALAN-SR) 00 daily. l 180 MG SR tablet verapamil 2020-0 Yes 180mg Take 1 Tab [facility] (CALAN-SR) 12-29 by mouth [facility]le [facility] 180 MG CR 00:00: daily. of tablet 00 Medicin e verapamil 2020-0 Yes 180mg Take 1 Tab [facility] (CALAN-SR) 9- by mouth [facility] 180 MG CR 00:00: daily. of tablet 00 Medicin e verapamil 2020-0 Yes 180mg Take 1 Tab [facility] (CALAN-SR) 9-28 by mouth [facility]le [facility] 180 MG CR 00:00: daily. of tablet 00 Medicin e verapamil 2020-0 Yes 180mg Take 1 Tab [facility] (CALAN-SR) 9-28 by mouth [facility] 180 MG CR 00:00: daily. of tablet 00 Medicin e verapamil 2020-0 Yes 180mg Take 1 Tab [facility] (CALAN-SR) 9-28 by mouth [facility] 180 MG CR 00:00: daily. of tablet 00 Medicin e verapamil 2020-0 Yes 180mg Take 1 Tab [facility] (CALAN-SR) 9-28 by mouth [facility]le [facility] 180 MG CR 00:00: daily. of tablet 00 Medicin e oxybutynin 2020-0 Yes [id number] TAKE 1 [facility] (DITROPAN-X 8-24 TABLET BY Col [facility]ge L) 10 MG CR 00:00: MOUTH of tablet 00 EVERY DAY Medicin e oxybutynin 2020-0 Yes [id number] TAKE 1 [facility] (DITROPAN-X 8-24 TABLET BY Col [facility] L) 10 MG CR 00:00: MOUTH of tablet 00 EVERY DAY Medicin e oxybutynin 2020-0 Yes [id number] TAKE 1 [facility] (DITROPAN-X 8-24 TABLET BY [facility] L) 10 MG CR 00:00: MOUTH of tablet 00 EVERY DAY Medicin e oxybutynin 2020-0 Yes [id number] TAKE 1 [facility] (DITROPAN-X 8-24 TABLET BY Col [facility] L) 10 MG CR 00:00: MOUTH of tablet 00 EVERY DAY Medicin e oxybutynin 2020-0 Yes [id number] TAKE 1 [facility] (DITROPAN-X 8-24 TABLET BY [facility] L) 10 MG CR 00:00: MOUTH of tablet 00 EVERY DAY Medicin e oxybutynin 2020-0 Yes [id number] TAKE 1 [facility] (DITROPAN-X 8-24 TABLET BY [facility] L) 10 MG CR 00:00: MOUTH of tablet 00 EVERY DAY Medicin e oxybutynin 2020-0 Yes [id number] TAKE 1 [facility] (DITROPAN-X 8-24 TABLET BY Col [facility] L) 10 MG CR 00:00: MOUTH of tablet 00 EVERY DAY Medicin e oxybutynin 2020-0 Yes [id number] TAKE 1 [facility] (DITROPAN-X 8-24 TABLET BY [facility] L) 10 MG CR 00:00: MOUTH of tablet 00 EVERY DAY Medicin e oxybutynin 2020-0 Yes [id number] TAKE 1 [facility] (DITROPAN-X 8-24 TABLET BY [facility] L) 10 MG CR 00:00: MOUTH of tablet 00 EVERY DAY Medicin e oxybutynin 2020-0 Yes [id number] TAKE 1 [facility] (DITROPAN-X 8-24 TABLET BY [facility] L) 10 MG CR 00:00: MOUTH of tablet 00 EVERY DAY Medicin e oxybutynin 2020-0 Yes [id number] TAKE 1 [facility] (DITROPAN-X 8-24 TABLET BY Col [facility]ge L) 10 MG CR 00:00: MOUTH of tablet 00 EVERY DAY Medicin e oxybutynin 2020-0 Yes [id number] TAKE 1 [facility] (DITROPAN-X 8-24 TABLET BY [facility] L) 10 MG CR 00:00: MOUTH of tablet 00 EVERY DAY Medicin e oxybutynin 2020-0 Yes [id number] TAKE 1 [facility] (DITROPAN-X 8-24 TABLET BY [facility] L) 10 MG CR 00:00: MOUTH of tablet 00 EVERY DAY Medicin e oxybutynin 2020-0 Yes [id number] TAKE 1 [facility] (DITROPAN-X 8-24 TABLET BY [facility] L) 10 MG CR 00:00: MOUTH of tablet 00 EVERY DAY Medicin e oxybutynin 2020-0 Yes [id number] TAKE 1 [facility] (DITROPAN-X 8-24 TABLET BY [facility] L) 10 MG CR 00:00: MOUTH of tablet 00 EVERY DAY Medicin e oxybutynin 2020-0 Yes [id number] TAKE 1 [facility] (DITROPAN-X 8-24 TABLET BY [facility] L) 10 MG CR 00:00: MOUTH of tablet 00 EVERY DAY Medicin e oxybutynin 2020-0 Yes [id number] TAKE 1 [facility] (DITROPAN-X 8-24 TABLET BY [facility] L) 10 MG CR 00:00: MOUTH of tablet 00 EVERY DAY Medicin e oxybutynin 2020-0 Yes [id number] TAKE 1 [facility] (DITROPAN-X 8-24 TABLET BY [facility] L) 10 MG CR 00:00: MOUTH of tablet 00 EVERY DAY Medicin e oxybutynin 2020-0 Yes [id number] TAKE 1 [facility] (DITROPAN-X 8-24 TABLET BY [facility] L) 10 MG CR 00:00: MOUTH of tablet 00 EVERY DAY Medicin e oxybutynin 2020-0 Yes [id number] TAKE 1 [facility] (DITROPAN-X 8-24 TABLET BY [facility] L) 10 MG CR 00:00: MOUTH of tablet 00 EVERY DAY Medicin e oxybutynin 2020-0 Yes [id number] TAKE 1 [facility] (DITROPAN-X 8-24 TABLET BY [facility] L) 10 MG CR 00:00: MOUTH of tablet 00 EVERY DAY Medicin e oxybutynin 2020-0 Yes [id number] TAKE 1 [facility] (DITROPAN-X 8-24 TABLET BY [facility] L) 10 MG CR 00:00: MOUTH of tablet 00 EVERY DAY Medicin e oxybutynin 2020-0 Yes [id number] TAKE 1 [facility] (DITROPAN-X 8-24 TABLET BY [facility] L) 10 MG CR 00:00: MOUTH of tablet 00 EVERY DAY Medicin e oxybutynin 2020-0 Yes [id number] TAKE 1 [facility] (DITROPAN-X 8-24 TABLET BY [facility] L) 10 MG CR 00:00: MOUTH of tablet 00 EVERY DAY Medicin e oxybutynin 2020-0 Yes [id number] TAKE 1 [facility] (DITROPAN-X 8-24 TABLET BY [facility] L) 10 MG CR 00:00: MOUTH of tablet 00 EVERY DAY Medicin e oxybutynin 2020-0 Yes [id number] TAKE 1 [facility] (DITROPAN-X 8-24 TABLET BY [facility] L) 10 MG CR 00:00: MOUTH of tablet 00 EVERY DAY Medicin e oxybutynin 2020-0 Yes [id number] TAKE 1 [facility] (DITROPAN-X 8-24 TABLET BY [facility] L) 10 MG CR 00:00: MOUTH of tablet 00 EVERY DAY Medicin e oxybutynin 2020-0 2021- No [id number] TAKE 1 [facility] (DITROPAN-X 8-24 12-10 TABLET BY [facility] L) 10 MG CR 00:00: 00:00 MOUTH of tablet 00 :00 EVERY DAY Medicin e escitalopra 2020-0 Yes 20mg Take 20 mg [facility] (LEXAPRO) 10-29 by mouth [facility] 20 MG 16:33: daily. of tablet 03 Medicin e Cobalamine 2020-0 Yes Take by [facility] Combination 10-29 mouth. [facility] [facility] (FOLIC + 16:33: of B12) 03 Medicin 800-1000 e MCG TABS Potassium 2020-0 Yes Take by [facility]en[facility] 10-29 mouth. [facility] (POTABA) 16:33: of 500 MG TABS 03 Medicin e Cyanocobala 2020-0 Yes Take by [facility] [facility] (B-12 - mouth. [facility] OR) 16:33: of 03 Medicin e alprazolam 2020-0 Yes .5mg Take 0.5 [facility] (XANAX) 0.5 7-29 mg by [place] MG tablet 16:33: mouth of 03 nightly as Medicin needed for e Sleep. estrogens, 2020-0 Yes 1.25mg Take 1.25 [facility] conjugated, 7-29 mg by [place] (PREMARIN) 16:33: mouth of 1.25 MG 03 daily. Medicin tablet e gabapentin 2020-0 Yes 300mg Take 300 [facility] (NEURONTIN) -29 mg by [place] 300 MG 16:33: mouth 3 of capsule 03 times Medicin daily. e montelukast 2020-0 Yes 10mg Take 10 mg [facility] (SINGULAIR) 10-29 by mouth [facility] 10 MG 16:33: daily. of tablet 03 Medicin e Acetaminoph 2020-0 Yes Take by [place] [facility] 10-29 mouth. [place] (TYLENOL) 16:33: of 167 MG/5ML 03 Medicin LIQD e omeprazole 2020-0 Yes 40mg Take 40 mg [facility] (PRILOSEC) 10-29 by mouth [facility]le [facility] 40 MG 16:33: daily. of capsule 03 Medicin e MAGNESIUM 2020-0 Yes Take by [facility] 10-29 mouth two [facility] 16:33: times of 03 daily. Medicin e clonidine 2020-0 Yes .1mg Take 0.1 [facility] (CATAPRES) 7-29 mg by [place] 0.1 MG 16:33: mouth as of tablet 03 needed. Medicin e NIFEdipine 2020-0 Yes 90mg Take 1 Tab [facility] (ADALAT CC) 10-29 by mouth [facility] 90 MG CR 00:00: daily. of tablet 00 Medicin e SYMBICORT 2020-0 Yes [facility] 80-4.5 6-09 [facility] MCG/ACT 00:00: of AERO 00 Medicin e SYMBICORT 2020-0 Yes [facility] 80-4.5 6-09 [facility] MCG/ACT 00:00: of AERO 00 Medicin e SYMBICORT 2020-0 Yes [facility] 80-4.5 6-09 [facility] MCG/ACT 00:00: of AERO 00 Medicin e SYMBICORT 2020-0 Yes [facility] 80-4.5 6-09 [facility] MCG/ACT 00:00: of AERO 00 Medicin e SYMBICORT 2020-0 Yes [facility] 80-4.5 6-09 [facility] MCG/ACT 00:00: of AERO 00 Medicin e SYMBICORT 2020-0 Yes [facility] 80-4.5 6-09 [place] MCG/ACT 00:00: of AERO 00 Medicin e SYMBICORT 2020-0 Yes [facility] 80-4.5 6-09 [facility] MCG/ACT 00:00: of AERO 00 Medicin e SYMBICORT 2020-0 Yes [facility] 80-4.5 6-09 [place] MCG/ACT 00:00: of AERO 00 Medicin e SYMBICORT 2020-0 Yes [facility] 80-4.5 6-09 [place] MCG/ACT 00:00: of AERO 00 Medicin e SYMBICORT 2020-0 Yes [facility] 80-4.5 6-09 [place] MCG/ACT 00:00: of AERO 00 Medicin e SYMBICORT 2020-0 Yes [facility] 80-4.5 6-09 [place] MCG/ACT 00:00: of AERO 00 Medicin e SYMBICORT 2020-0 Yes [facility] 80-4.5 6-09 [place] MCG/ACT 00:00: of AERO 00 Medicin e SYMBICORT 2020-0 Yes [facility] 80-4.5 6-09 [place] MCG/ACT 00:00: of AERO 00 Medicin e SYMBICORT 2020-0 Yes [facility] 80-4.5 6-09 [employer] MCG/ACT 00:00: of AERO 00 Medicin e SYMBICORT 2020-0 Yes [facility] 80-4.5 6-09 [facility] MCG/ACT 00:00: of AERO 00 Medicin e SYMBICORT 2020-0 Yes [facility] 80-4.5 6-09 [facility] MCG/ACT 00:00: of AERO 00 Medicin e SYMBICORT 2020-0 Yes [facility] 80-4.5 6-09 [facility] MCG/ACT 00:00: of AERO 00 Medicin e SYMBICORT 2020-0 Yes [facility] 80-4.5 6-09 [employer] MCG/ACT 00:00: of AERO 00 Medicin e SYMBICORT 2020-0 Yes [facility] 80-4.5 6-09 College MCG/ACT 00:00: of AERO 00 Medicin e SYMBICORT 2020-0 Yes [facility] 80-4.5 6-09 College MCG/ACT 00:00: of AERO 00 Medicin e SYMBICORT 2020-0 Yes 2{puff} 2 [facility] 80-4.5 6-09 two times College MCG/ACT 00:00: daily. of AERO 00 Medicin e SYMBICORT 2020-0 Yes 2{puff} 2 [facility] 80-4.5 6-09 two times College MCG/ACT 00:00: daily. of AERO 00 Medicin e SYMBICORT 2020-0 Yes 2{puff} 2 [facility] 80-4.5 6-09 two times College MCG/ACT 00:00: daily. of AERO 00 Medicin e SYMBICORT 2020-0 Yes 2{puff} 2 [facility] 80-4.5 6-09 two times College MCG/ACT 00:00: daily. of AERO 00 Medicin e SYMBICORT 2020-0 Yes 2{puff} 2 [facility] 80-4.5 6-09 two times College MCG/ACT 00:00: daily. of AERO 00 Medicin e SYMBICORT 2020-0 Yes 2{puff} 2 [facility] 80-4.5 6-09 two times College MCG/ACT 00:00: daily. of AERO 00 Medicin e SYMBICORT 2020-0 Yes 2{puff} 2 [facility] 80-4.5 6-09 two times [facility] MCG/ACT 00:00: daily. of AERO 00 Medicin e SYMBICORT 2020-0 Yes 2{puff} 2 [facility] 80-4.5 6-09 two times College MCG/ACT 00:00: daily. of AERO 00 Medicin e SYMBICORT 2020-0 Yes 2{puff} 2 [facility] 80-4.5 6-09 two times College MCG/ACT 00:00: daily. of AERO 00 Medicin e SYMBICORT 2020-0 Yes 2{puff} 2 [facility] 80-4.5 6-09 two times College MCG/ACT 00:00: daily. of AERO 00 Medicin e SYMBICORT 2020-0 Yes [facility] 80-4.5 6-09 College MCG/ACT 00:00: of AERO 00 Medicin e SYMBICORT 2020-0 Yes 2{puff} 2 [facility] 80-4.5 6-09 two times College MCG/ACT 00:00: daily. of AERO 00 Medicin e SYMBICORT 2020-0 Yes 2{puff} 2 [facility] 80-4.5 6-09 two times College MCG/ACT 00:00: daily. of AERO 00 Medicin e SYMBICORT 2020-0 Yes 2{puff} 2 [facility] 80-4.5 6-09 two times College MCG/ACT 00:00: daily. of AERO 00 Medicin e SYMBICORT 2020-0 Yes 2{puff} 2 [facility] 80-4.5 6-09 two times College MCG/ACT 00:00: daily. of AERO 00 Medicin e SYMBICORT 2020-0 Yes 2{puff} 2 [facility] 80-4.5 6-09 two times College MCG/ACT 00:00: daily. of AERO 00 Medicin e SYMBICORT 2020-0 Yes 2{puff} 2 [facility] 80-4.5 6-09 two times College MCG/ACT 00:00: daily. of AERO 00 Medicin e SYMBICORT 2020-0 Yes 2{puff} 2 [facility] 80-4.5 6-09 two times College MCG/ACT 00:00: daily. of AERO 00 Medicin e SYMBICORT 2020-0 Yes [facility] 80-4.5 6-09 College MCG/ACT 00:00: of AERO 00 Medicin e SYMBICORT 2020-0 Yes 2{puff} 2 [facility] 80-4.5 6-09 two times College MCG/ACT 00:00: daily. of AERO 00 Medicin e SYMBICORT 2020-0 Yes 2{puff} 2 [facility] 80-4.5 6-09 two times College MCG/ACT 00:00: daily. of AERO 00 Medicin e SYMBICORT 2020-0 Yes 2{puff} 2 [facility] 80-4.5 6-09 two times College MCG/ACT 00:00: daily. of AERO 00 Medicin e SYMBICORT 2020-0 Yes 2{puff} 2 [facility] 80-4.5 6-09 two times College MCG/ACT 00:00: daily. of AERO 00 Medicin e SYMBICORT 2020-0 Yes 2{puff} 2 [facility] 80-4.5 6-09 two times College MCG/ACT 00:00: daily. of AERO 00 Medicin e SYMBICORT 2020-0 Yes [facility] 80-4.5 6-09 [facility] MCG/ACT 00:00: of AERO 00 Medicin e SYMBICORT 2020-0 Yes [facility] 80-4.5 6-09 College MCG/ACT 00:00: of AERO 00 Medicin e SYMBICORT 2020-0 Yes [facility] 80-4.5 6-09 College MCG/ACT 00:00: of AERO 00 Medicin e SYMBICORT 2020-0 Yes [facility] 80-4.5 6-09 [facility] MCG/ACT 00:00: of AERO 00 Medicin e SYMBICORT 2020-0 Yes [facility] 80-4.5 6-09 College MCG/ACT 00:00: of AERO 00 Medicin e SYMBICORT 2020-0 Yes [facility] 80-4.5 6-09 [facility] MCG/ACT 00:00: of AERO 00 Medicin e SYMBICORT 2020-0 Yes [facility] 80-4.5 6-09 [facility] MCG/ACT 00:00: of AERO 00 Medicin e SYMBICORT 2020-0 Yes [facility] 80-4.5 6-09 [facility] MCG/ACT 00:00: of AERO 00 Medicin e SYMBICORT 2020-0 Yes [facility] 80-4.5 6-09 College MCG/ACT 00:00: of AERO 00 Medicin e SYMBICORT 2020-0 Yes [facility] 80-4.5 6-09 [facility] MCG/ACT 00:00: of AERO 00 Medicin e SYMBICORT 2020-0 Yes [facility] 80-4.5 6-09 College MCG/ACT 00:00: of AERO 00 Medicin e SYMBICORT 2020-0 Yes [facility] 80-4.5 6- College MCG/ACT 00:00: of AERO 00 Medicin e SYMBICORT 2020-0 Yes [facility] 80-4.5 6- [place] MCG/ACT 00:00: of AERO 00 Medicin e SYMBICORT 2020-0 Yes [facility] 80-4.5 6- [place] MCG/ACT 00:00: of AERO 00 Medicin e SYMBICORT 2020-0 Yes [facility] 80-4.5 6- [place] MCG/ACT 00:00: of AERO 00 Medicin e SYMBICORT 2020-0 Yes [facility] 80-4.5 6- [facility] MCG/ACT 00:00: of AERO 00 Medicin e candesartan 2020-0 Yes [id number] TAKE 1 [facility] (ATACAND) 5-14 TABLET BY [facility] 32 MG 00:00: MOUTH of tablet 00 EVERY DAY Medicin e candesartan 2020-0 Yes [id number] TAKE 1 [facility] (ATACAND) 5-14 TABLET BY Col[facility] 32 MG 00:00: MOUTH of tablet 00 EVERY DAY Medicin e candesartan 2020-0 Yes [id number] TAKE 1 [facility] (ATACAND) 5-14 TABLET BY [facility] 32 MG 00:00: MOUTH of tablet 00 EVERY DAY Medicin e candesartan 2020-0 Yes [id number] TAKE 1 [facility] (ATACAND) 5-14 TABLET BY Colle [facility] 32 MG 00:00: MOUTH of tablet 00 EVERY DAY Medicin e lovastatin 2019-0 2020- No 10mg Take 10 mg [facility] (MEVACOR) 05-01 by mouth [facility] 10 MG 18:00: 00:00 every of tablet 39 :00 evening. Medicin e clopidogrel 2020-0 2020- No 75mg Take 75 mg [facility] (PLAVIX) 75 05-01 by mouth [facility] MG tablet 18:00: 00:00 daily. of 15 :00 Medicin e escitalopra 2019-0 Yes 20mg Take 20 mg [facility] m (LEXAPRO) 05-01 by mouth [facility] 20 MG 17:10: daily. of tablet Medicin e Cobalamine 2019- Yes Take by [facility] Combination 05-01 mouth. [facility] (FOLIC + 17:10: of B12) 06 Medicin 800-1000 e MCG TABS Potassium 2020-0 Yes Take by [facility] Aminobenzoa 05-01 mouth. [facility] e [facility] (POTABA) 17:10: of 500 MG TABS 06 Medicin e Cyanocobala 2020-0 Yes Take by [facility] (B-12 - mouth. College OR) 17:10: of 06 Medicin e alprazolam 2020-0 Yes .5mg Take 0.5 [facility] (XANAX) 0.5 1-29 mg by [place] MG tablet 17:10: mouth of 06 nightly as Medicin needed for e Sleep. estrogens, 2020-0 Yes 1.25mg Take 1.25 [facility] conjugated, 1-29 mg by [place] (PREMARIN) 17:10: mouth of 1.25 MG 06 daily. Medicin tablet e gabapentin 2020-0 Yes 300mg Take 300 [facility] (NEURONTIN) 1-29 mg by [place] 300 MG 17:10: mouth 3 of capsule 06 times Medicin daily. e montelukast 2020-0 Yes 10mg Take 10 mg [facility] (SINGULAIR) 05-01 by mouth [facility] 10 MG 17:10: daily. of tablet 06 Medicin e Acetaminoph 2020-0 Yes Take by [place] [facility] 05-01 mouth. [place] (TYLENOL) 17:10: of 167 MG/5ML 06 Medicin LIQD e omeprazole 2020-0 Yes 40mg Take 40 mg [facility] (PRILOSEC) 05-01 by mouth [facility] 40 MG 17:10: daily. of capsule 06 Medicin e MAGNESIUM 2020-0 Yes Take by [facility] 05-01 mouth two College 17:10: times of 06 daily. Medicin e clonidine 2020-0 Yes .1mg Take 0.1 [facility] (CATAPRES) 1-29 mg by [place] 0.1 MG 17:10: mouth as of tablet 06 needed. Medicin e furosemide 2020-0 Yes 20mg Take 1 Tab [facility] (LASIX) 20 - by mouth [facility] MG tablet 00:00: daily. of 00 Medicin e furosemide 2020-0 Yes 20mg Take 1 Tab [facility] (LASIX) 20 - by mouth [facility] MG tablet 00:00: daily. of 00 Medicin e furosemide 2020-0 Yes 20mg Take 1 Tab [facility] (LASIX) 20 1-29 by mouth [facility] MG tablet 00:00: daily. of 00 Medicin e furosemide 2020-0 Yes 20mg Take 1 Tab [facility] (LASIX) 20 1-29 by mouth [facility] MG tablet 00:00: daily. of 00 Medicin e furosemide 2020-0 Yes 20mg Take 1 Tab [facility] (LASIX) 20 1-29 by mouth [facility] MG tablet 00:00: daily. of 00 Medicin e furosemide 2020-0 Yes 20mg Take 1 Tab [facility] (LASIX) 20 1-29 by mouth [facility] MG tablet 00:00: daily. of 00 Medicin e furosemide 2020-0 Yes 20mg Take 1 Tab [facility] (LASIX) 20 1-29 by mouth [facility] MG tablet 00:00: daily. of 00 Medicin e furosemide 2020-0 Yes 20mg Take 1 Tab [facility] (LASIX) 20 1-29 by mouth [facility] MG tablet 00:00: daily. of 00 Medicin e furosemide 2020-0 Yes 20mg Take 1 Tab [facility] (LASIX) 20 1-29 by mouth [facility] MG tablet 00:00: daily. of 00 Medicin e furosemide 2020-0 Yes 20mg Take 1 Tab [facility] (LASIX) 20 1-29 by mouth [facility] MG tablet 00:00: daily. of 00 Medicin e furosemide 2020-0 Yes 20mg Take 1 Tab [facility] (LASIX) 20 1-29 by mouth [facility] MG tablet 00:00: daily. of 00 Medicin e clopidogrel 2020-0 Yes 75mg Take 1 Tab [facility] (PLAVIX) 75 1-29 by mouth [facility] MG Tablet 00:00: daily. of 00 Medicin e lovastatin 2020-0 Yes 10mg Take 1 Tab [facility] (MEVACOR) 1-29 by mouth Colleg e 10 MG 00:00: every of tablet 00 evening. Medicin e furosemide 2020-0 Yes 20mg Take 1 Tab [facility] (LASIX) 20 1-29 by mouth [facility]le [facility] MG tablet 00:00: daily. of 00 Medicin e clopidogrel 2020-0 Yes 75mg Take 1 Tab [facility] (PLAVIX) 75 1-29 by mouth [facility] MG Tablet 00:00: daily. of 00 Medicin e lovastatin 2020-0 Yes 10mg Take 1 Tab [facility] (MEVACOR) 1-29 by mouth Colleg e 10 MG 00:00: every of tablet 00 evening. Medicin e furosemide 2020-0 Yes 20mg Take 1 Tab [facility] (LASIX) 20 1-29 by mouth [facility]le [facility] MG tablet 00:00: daily. of 00 Medicin e clopidogrel 2020-0 Yes 75mg Take 1 Tab [facility] (PLAVIX) 75 1-29 by mouth [facility] MG Tablet 00:00: daily. of 00 Medicin e lovastatin 2020-0 Yes 10mg Take 1 Tab [facility] (MEVACOR) 1-29 by mouth Colleg e 10 MG 00:00: every of tablet 00 evening. Medicin e furosemide 2020-0 Yes 20mg Take 1 Tab [facility] (LASIX) 20 1-29 by mouth [facility]le [facility] MG tablet 00:00: daily. of 00 Medicin e clopidogrel 2020-0 Yes 75mg Take 1 Tab [facility] (PLAVIX) 75 1-29 by mouth [facility] MG Tablet 00:00: daily. of 00 Medicin e furosemide 2020-0 Yes 20mg Take 1 Tab [facility] (LASIX) 20 1-29 by mouth [facility]le [facility] MG tablet 00:00: daily. of 00 Medicin e clopidogrel 2020-0 Yes 75mg Take 1 Tab [facility] (PLAVIX) 75 1-29 by mouth [facility] MG Tablet 00:00: daily. of 00 Medicin e furosemide 2020-0 Yes 20mg Take 1 Tab [facility] (LASIX) 20 1-29 by mouth [facility]le [facility] MG tablet 00:00: daily. of 00 Medicin e clopidogrel 2020-0 Yes 75mg Take 1 Tab [facility] (PLAVIX) 75 1-29 by mouth [facility] MG Tablet 00:00: daily. of 00 Medicin e furosemide 2020-0 Yes 20mg Take 1 Tab [facility] (LASIX) 20 1-29 by mouth [facility]le [facility] MG tablet 00:00: daily. of 00 Medicin e clopidogrel 2020-0 Yes 75mg Take 1 Tab [facility] (PLAVIX) 75 1-29 by mouth [facility] MG Tablet 00:00: daily. of 00 Medicin e furosemide 2020-0 Yes 20mg Take 1 Tab [facility] (LASIX) 20 1-29 by mouth [facility] MG tablet 00:00: daily. of 00 Medicin e clopidogrel 2020-0 Yes 75mg Take 1 Tab [facility] (PLAVIX) 75 1-29 by mouth [facility] MG Tablet 00:00: daily. of 00 Medicin e furosemide 2020-0 Yes 20mg Take 1 Tab [facility] (LASIX) 20 1-29 by mouth [facility] MG tablet 00:00: daily. of 00 Medicin e furosemide 2020-0 Yes 20mg Take 1 Tab [facility] (LASIX) 20 1-29 by mouth [facility] MG tablet 00:00: daily. of 00 Medicin e furosemide 2020-0 Yes 20mg Take 1 Tab [facility] (LASIX) 20 1-29 by mouth [facility] MG tablet 00:00: daily. of 00 Medicin e furosemide 2020-0 Yes 20mg Take 1 Tab [facility] (LASIX) 20 1-29 by mouth [facility] MG tablet 00:00: daily. of 00 Medicin e furosemide 2020-0 Yes 20mg Take 1 Tab [facility] (LASIX) 20 1-29 by mouth [facility] MG tablet 00:00: daily. of 00 Medicin e furosemide 2020-0 Yes 20mg Take 1 Tab [facility] (LASIX) 20 1-29 by mouth [facility] MG tablet 00:00: daily. of 00 Medicin e furosemide 2020-0 Yes 20mg Take 1 Tab [facility] (LASIX) 20 1-29 by mouth [facility] MG tablet 00:00: daily. of 00 Medicin e furosemide 2020-0 Yes 20mg Take 1 Tab [facility] (LASIX) 20 1-29 by mouth [facility] MG tablet 00:00: daily. of 00 Medicin e furosemide 2020-0 Yes 20mg Take 1 Tab [facility] (LASIX) 20 1-29 by mouth [facility] MG tablet 00:00: daily. of 00 Medicin e furosemide 2020-0 Yes 20mg Take 1 Tab [facility] (LASIX) 20 1-29 by mouth [facility] MG tablet 00:00: daily. of 00 Medicin e furosemide 2020-0 Yes 20mg Take 1 Tab [facility] (LASIX) 20 1-29 by mouth [facility] MG tablet 00:00: daily. of 00 Medicin e furosemide 2020-0 2021- No 20mg Take 1 Tab [facility] (LASIX) 20 1-29 12-10 by mouth [facility] MG tablet 00:00: 00:00 daily. of 00 :00 Medicin e lovastatin 2020-0 2020- No 10mg Take 1 Tab [facility] (MEVACOR) 05-01 10-08 by mouth [facility]le [facility] 10 MG 00:00: 00:00 every of tablet 00 :00 evening. Medicin e LANSOPRAZOL Yes Take by [facility] (PREVACID 9-23 mouth. ity of ORAL) 20:29: [address] CYANOCOBALA Yes Take by [facility] MIN, 9-23 mouth. ity of VITAMIN 20:29: [place] [id number] Medical (VITAMIN Branch B-12 ORAL) FOLIC ACID Yes Take by [facility] ers ORAL 9-23 mouth. ity of 20:29: [address] LANSOPRAZOL Yes Take by [facility] (PREVACID 9-23 mouth. ity of ORAL) 20:29: [address] CYANOCOBALA Yes Take by [facility] MIN, - mouth. ity of VITAMIN 20:29: [place] [id number] Medical (VITAMIN Branch B-12 ORAL) FOLIC ACID Yes Take by [facility] ORAL 9-23 mouth. ity of 20:29: [address] LANSOPRAZOL Yes Take by [facility] (PREVACID 9-23 mouth. ity of ORAL) 20:29: [address] CYANOCOBALA Yes Take by [facility] MIN, 12-24 mouth. ity of VITAMIN 20:29: [place] [address] Medical (VITAMIN Branch B-12 ORAL) FOLIC ACID Yes Take by [facility] ORAL 9-23 mouth. ity of 20:29: [address] LANSOPRAZOL Yes Take by [facility] (PREVACID 9-23 mouth. ity of ORAL) 20:29: [address] CYANOCOBALA Yes Take by [facility] MIN, 9-23 mouth. ity of VITAMIN 20:29: [place] [id number] Medical (VITAMIN Branch B-12 ORAL) FOLIC ACID 0 Yes Take by [facility] ORAL 9-23 mouth. ity of 20:29: [address] LANSOPRAZOL Yes Take by [facility] (PREVACID 9-23 mouth. ity of ORAL) 15:29: [address] CYANOCOBALA 2019-0 Yes Take by [facility] MIN, 9-23 mouth. ity of VITAMIN 15:29: [facility]-12, 56 Medical (VITAMIN Branch B-12 ORAL) FOLIC ACID 2019-0 Yes Take by [facility] ORAL 9-23 mouth. ity of 15:29: [address] LANSOPRAZOL 2019-0 Yes Take by [facility] (PREVACID 9-23 mouth. ity of ORAL) 15:29: [address] CYANOCOBALA [id number] Yes Take by [facility] MIN, 9-23 mouth. ity of VITAMIN 15:29: [facility]-12, 56 Medical (VITAMIN Branch B-12 ORAL) FOLIC ACID 2018-0 Yes Take by [facility] ORAL 9-23 mouth. ity of 15:29: [address] LANSOPRAZOL 2018-0 Yes Take by [facility] (PREVACID 9-23 mouth. ity of ORAL) 15:29: [address] CYANOCOBALA 0 Yes Take by [facility] MIN, 9-23 mouth. ity of VITAMIN 15:29: [place] [address] Medical (VITAMIN Branch B-12 ORAL) FOLIC ACID 2018-0 Yes Take by [facility] ORAL 9-23 mouth. ity of 15:29: [address] LANSOPRAZOL 0 Yes Take by [facility] (PREVACID 9-23 mouth. ity of ORAL) 15:29: [address] CYANOCOBALA 2018-0 Yes Take by [facility] MIN, 9-23 mouth. ity of VITAMIN 15:29: [place] [id number], 56 Medical (VITAMIN Branch B-12 ORAL) FOLIC ACID 2018-0 Yes Take by [facility] ORAL 9-23 mouth. ity of 15:29: [address] LANSOPRAZOL 2019-0 Yes Take by [facility] (PREVACID 9-23 mouth. ity of ORAL) 15:29: [address] CYANOCOBALA 2019-0 Yes Take by [facility] MIN, 9-23 mouth. ity of VITAMIN 15:29: [facility]12, 56 Medical (VITAMIN Branch B-12 ORAL) FOLIC ACID 2019-0 Yes Take by [facility] ers ORAL 9-23 mouth. ity of 15:29: [address] LANSOPRAZOL 2019-0 Yes Take by [facility] (PREVACID 9-23 mouth. ity of ORAL) 15:29: [place] [address] Medical Branch CYANOCOBALA 2018-0 Yes Take by [facility] MIN, 12-24 mouth. ity of VITAMIN 15:29: [place] B12, Medical (VITAMIN Branch B-12 ORAL) FOLIC ACID 2018-0 Yes Take by [facility] ers ORAL 12-24 mouth. ity of 15:29: [place] [address] Medical Branch furosemide 2018-0 Yes [facility] 20 mg 9-10 ity of tablet 00:00: [place] [facility] ondansetron 2018-0 Yes Univer s 4 mg 9-10 ity of disintegrat 00:00: [place] ing tablet Medical Branch furosemide 2018-0 Yes Univers 20 mg 9-10 ity of tablet 00:00: [place] [address] Medical Branch ondansetron 2018-0 Yes Univer s 4 mg 9-10 ity of disintegrat 00:00: [place] ing tablet Medical Branch furosemide 2018-0 Yes [facility] 20 mg 9-10 ity of tablet 00:00: [place] [facility] ondansetron 2018-0 Yes Univer s 4 mg 9-10 ity of disintegrat 00:00: [place] ing tablet Medical Branch furosemide 2018-0 Yes [facility] 20 mg 9-10 ity of tablet 00:00: Medical Branch ondansetron 2018-0 Yes Univer s 4 mg 9-10 ity of disintegrat 00:00: [place] ing tablet Medical Branch furosemide 2018-0 Yes [facility] 20 mg 9-10 ity of tablet 00:00: Medical Branch ondansetron 2018-0 Yes Univer s 4 mg 9-10 ity of disintegrat 00:00: [place] ing tablet Medical Branch furosemide 2019-0 Yes [facility] 20 mg 9-10 ity of tablet 00:00: Medical Branch ondansetron 2018-0 Yes Univer s 4 mg 9-10 ity of disintegrat 00:00: [place] ing tablet Medical Branch furosemide 2019-0 Yes [facility] 20 mg 9-10 ity of tablet 00:00: Medical Branch ondansetron 2018-0 Yes Univer s 4 mg 9-10 ity of disintegrat 00:00: [place] ing tablet Medical Branch furosemide 2019-0 Yes [facility] 20 mg 9-10 ity of tablet 00:00: Medical Branch ondansetron 2018-0 Yes Univer s 4 mg 9-10 ity of disintegrat 00:00: [place] ing tablet Medical Branch furosemide Yes [facility] 20 mg 9-10 ity of tablet 00:00: Medical Branch ondansetron Yes Univer s 4 mg 9-10 ity of disintegrat 00:00: ing tablet Medical Branch furosemide Yes [facility] 20 mg 9-10 ity of tablet 00:00: Medical Branch ondansetron Yes Univer s 4 mg 9-10 ity of disintegrat 00:00: ing tablet Medical Branch escitalopra Yes 20mg Take 20 mg [facility] m (LEXAPRO) 8-22 by mouth [facility] 20 MG 14:55: daily. of tablet 47 Medicin e Cobalamine Yes Take by [facility] Combination 11-22 mouth. [facility] (FOLIC + 14:55: of B12) 47 Medicin 800-1000 e MCG TABS Potassium Yes Take by [facility] Aminobenzoa 11-22 mouth. [facility] [facility] (POTABA) 14:55: of 500 MG TABS 47 Medicin e Cyanocobala Yes Take by [facility] (B-12 - mouth. College OR) 14:55: of 47 Medicin e estrogens, Yes 1.25mg Take 1.25 [facility] conjugated, 8-22 mg by [place] (PREMARIN) 14:55: mouth of 1.25 MG 47 daily. Medicin tablet e gabapentin Yes 300mg Take 300 [facility] (NEURONTIN) 8-22 mg by [place] 300 MG 14:55: mouth 3 of capsule 47 times Medicin daily. e lovastatin Yes 10mg Take 10 mg [facility] (MEVACOR) 8-22 by mouth [facility] 10 MG 14:55: every of tablet 47 evening. Medicin e montelukast Yes 10mg Take 10 mg [facility] (SINGULAIR) 8-22 by mouth [facility] 10 MG 14:55: daily. of tablet 47 Medicin e clopidogrel Yes 75mg Take 75 mg [facility] (PLAVIX) 75 8-22 by mouth [facility] MG tablet 14:55: daily. of 47 Medicin e omeprazole Yes 40mg Take 40 mg [facility] (PRILOSEC) 8-22 by mouth [facility]le [facility] 40 MG 14:55: daily. of capsule 47 Medicin e MAGNESIUM Yes Take by [facility] 8-22 mouth two College 14:55: times of 47 daily. Medicin e clonidine Yes .1mg Take 0.1 [facility] (CATAPRES) 8-22 mg by [facility] 0.1 MG 14:55: mouth as of tablet 47 needed. Medicin e alprazolam Yes .5mg Take 0.5 [facility] [facility] (XANAX) 0.5 8-22 mg by [facility] MG tablet 14:54: mouth of 40 nightly as Medicin needed for e Sleep. Acetaminoph Yes Take by [facility] [facility] 8-22 mouth. College (TYLENOL) 14:54: of 167 MG/5ML 40 Medicin LIQD e oxybutynin Yes [id number] 10mg Take 1 Tab [facility] (DITROPAN-X 7-11 by mouth [facility] L) 10 MG CR 00:00: daily. of tablet 00 Medicin e candesartan Yes 32mg Take 1 Tab [facility] (ATACAND) 7-11 by mouth Colleg e 32 MG 00:00: daily. of tablet 00 Medicin e carvedilol Yes 25mg Take 1 Tab [facility] (COREG) 25 7-11 by mouth Colle [facility] MG tablet 00:00: two times of 00 daily. Medicin e amlodipine Yes 5mg Take 1 Tab [facility] (NORVASC) 5 7-11 by mouth [facility] MG tablet 00:00: daily. of 00 Medicin e oxybutynin Yes [id number] 10mg Take 1 Tab [facility] (DITROPAN-X 7-11 by mouth [facility] L) 10 MG CR 00:00: daily. of tablet 00 Medicin e candesartan Yes 32mg Take 1 Tab [facility] (ATACAND) 7-11 by mouth Colleg e 32 MG 00:00: daily. of tablet 00 Medicin e carvedilol Yes 25mg Take 1 Tab [facility] (COREG) 25 7-11 by mouth Colle ge MG tablet 00:00: two times of 00 daily. Medicin e amlodipine 2019-0 Yes 5mg Take 1 Tab [facility] (NORVASC) 5 7-11 by mouth [facility] MG tablet 00:00: daily. of 00 Medicin e oxybutynin 2019-0 Yes [id number] 10mg Take 1 Tab [facility] (DITROPAN-X 7-11 by mouth [facility] L) 10 MG CR 00:00: daily. of tablet 00 Medicin e carvedilol 2019-0 Yes 25mg Take 1 Tab [facility] (COREG) 25 7-11 by mouth [facility]le [facility] MG tablet 00:00: two times of 00 daily. Medicin e amlodipine 2019-0 Yes 5mg Take 1 Tab [facility] (NORVASC) 5 7-11 by mouth [facility] MG tablet 00:00: daily. of 00 Medicin e carvedilol 2019-0 Yes 25mg Take 1 Tab [facility] (COREG) 25 7-11 by mouth [facility] MG tablet 00:00: two times of 00 daily. Medicin e carvedilol 2019-0 Yes 25mg Take 1 Tab [facility] (COREG) 25 7-11 by mouth Colle [facility] MG tablet 00:00: two times of 00 daily. Medicin e carvedilol 2019-0 Yes 25mg Take 1 Tab [facility] (COREG) 25 7-11 by mouth [facility]le [facility] MG tablet 00:00: two times of 00 daily. Medicin e carvedilol 2019-0 Yes 25mg Take 1 Tab [facility] (COREG) 25 7-11 by mouth [facility]le [facility] MG tablet 00:00: two times of 00 daily. Medicin e carvedilol 2019-0 Yes 25mg Take 1 Tab [facility] (COREG) 25 7-11 by mouth Colle [facility] MG tablet 00:00: two times of 00 daily. Medicin e carvedilol 2019-0 Yes 25mg Take 1 Tab [facility] (COREG) 25 7-11 by mouth [facility]le [facility] MG tablet 00:00: two times of 00 daily. Medicin e carvedilol 2019-0 Yes 25mg Take 1 Tab [facility] (COREG) 25 7-11 by mouth [facility]le [facility] MG tablet 00:00: two times of 00 daily. Medicin e candesartan 2019-0 Yes 32mg Take 32 mg [facility] 32 mg 7-11 by mouth. ity of tablet 00:00: [address] candesartan 2019-0 Yes 32mg Take 32 mg [facility] 32 mg 7-11 by mouth. ity of tablet 00:00: [place] [facility] candesartan Yes 32mg Take 32 mg [facility] 32 mg 7-11 by mouth. ity of tablet 00:00: [place] [facility] candesartan Yes 32mg Take 32 mg [facility] 32 mg 7-11 by mouth. ity of tablet 00:00: [place] [facility] candesartan Yes 32mg Take 32 mg [facility] 32 mg 7-11 by mouth. ity of tablet 00:00: [place] [facility] candesartan Yes 32mg Take 32 mg [facility] 32 mg 7-11 by mouth. ity of tablet 00:00: [place] [facility] candesartan Yes 32mg Take 32 mg [facility] 32 mg 7-11 by mouth. ity of tablet 00:00: [place] [facility] candartan Yes 32mg Take 32 mg [facility] 32 mg 7-11 by mouth. ity of tablet 00:00: [place] [facility] candesartan Yes 32mg Take 32 mg [facility] 32 mg 7-11 by mouth. ity of tablet 00:00: [address] candesartan Yes 32mg Take 32 mg [facility] 32 mg 7-11 by mouth. ity of tablet 00:00: [address] furosemide Yes 20mg Take 20 mg [facility] (LASIX) 20 3-15 by mouth Colle ge MG tablet 00:00: daily. of Medicin e furosemide 2020- No 20mg Take 20 mg [facility] (LASIX) 20 3-15 -29 by mouth [facility] MG tablet 00:00: 00:00 daily. of 00 :00 Medicin e ondansetron Yes [id number] 4mg Take 1 Tab [facility] (ZOFRAN-ODT 6-29 by mouth 2 Co llege ) 4 mg 00:00: times of disintegrat 00 daily as Medi michael ing tablet needed for e Nausea. ondansetron Yes [id number] 4mg Take 1 Tab [facility] (ZOFRAN-ODT 6-29 by mouth 2 [facility] ) 4 mg 00:00: times of disintegrat 00 daily as Medi michael ing tablet needed for e Nausea. ondansetron Yes [id number] 4mg Take 1 Tab [facility] (ZOFRAN-ODT 6-29 by mouth 2 [facility] ) 4 mg 00:00: times of disintegrat 00 daily as Medi michael ing tablet needed for e Nausea. ondansetron Yes [id number] 4mg Take 1 Tab [facility] (ZOFRAN-ODT 6-29 by mouth [facility] ) 4 mg 00:00: times of disintegrat 00 daily as Medi michael ing tablet needed for e Nausea. ondansetron Yes [id number] 4mg Take 1 Tab [facility] (ZOFRAN-ODT 6-29 by mouth 2 [facility] ) 4 mg 00:00: times of disintegrat 00 daily as Medi michael ing tablet needed for e Nausea. ondansetron Yes [id number] 4mg Take 1 Tab [facility] (ZOFRAN-ODT 6-29 by mouth 2 [facility] ) 4 mg 00:00: times of disintegrat 00 daily as Medi michael ing tablet needed for e Nausea. ondansetron Yes [id number] 4mg Take 1 Tab [facility] (ZOFRAN-ODT 6-29 by mouth 2 [facility] ) 4 mg 00:00: times of disintegrat 00 daily as Medi michael ing tablet needed for e Nausea. ondansetron Yes [id number] 4mg Take 1 Tab [facility] (ZOFRAN-ODT 6-29 by mouth 2 Co llege ) 4 mg 00:00: times of disintegrat 00 daily as Medi michael ing tablet needed for e Nausea. ondansetron Yes [id number] 4mg Take 1 Tab [facility] (ZOFRAN-ODT 6-29 by mouth 2 [facility] ) 4 mg 00:00: times of disintegrat 00 daily as Medi michael ing tablet needed for e Nausea. ondansetron 0 Yes [id number] 4mg Take 1 Tab [facility] (ZOFRAN-ODT 6-29 by mouth 2 [facility] ) 4 mg 00:00: times of disintegrat 00 daily as Medi michael ing tablet needed for e Nausea. ondansetron Yes [id number] 4mg Take 1 Tab [facility] (ZOFRAN-ODT 6-29 by mouth 2 [facility] ) 4 mg 00:00: times of disintegrat 00 daily as Medi michael ing tablet needed for e Nausea. ondansetron 2018- Yes [id number] 4mg Take 1 Tab [facility] (ZOFRAN-ODT 6-29 by mouth 2 [facility] ) 4 mg 00:00: times of disintegrat 00 daily as Medi michael ing tablet needed for e Nausea. ondansetron 2017- Yes [id number] 4mg Take 1 Tab [facility] (ZOFRAN-ODT 6-29 by mouth 2 [facility] ) 4 mg 00:00: times of disintegrat 00 daily as Medi michael ing tablet needed for e Nausea. ondansetron Yes [id number] 4mg Take 1 Tab [facility] (ZOFRAN-ODT 6-29 by mouth 2 [facility] ) 4 mg 00:00: times of disintegrat 00 daily as Medi michael ing tablet needed for e Nausea. ondansetron Yes [id number] 4mg Take 1 Tab [facility] (ZOFRAN-ODT 6-29 by mouth 2 [facility] ) 4 mg 00:00: times of disintegrat 00 daily as Medi michael ing tablet needed for e Nausea. ondansetron Yes [id number] 4mg Take 1 Tab [facility] (ZOFRAN-ODT 6-29 by mouth 2 [facility] ) 4 mg 00:00: times of disintegrat 00 daily as Medi michael ing tablet needed for e Nausea. ondansetron 2017- Yes [id number] 4mg Take 1 Tab [facility] (ZOFRAN-ODT 6-29 by mouth 2 [facility] ) 4 mg 00:00: times of disintegrat 00 daily as Medi michael ing tablet needed for e Nausea. ondansetron 2017- Yes [id number] 4mg Take 1 Tab [facility] (ZOFRAN-ODT 6-29 by mouth 2 [facility] ) 4 mg 00:00: times of disintegrat 00 daily as Medi michael ing tablet needed for e Nausea. ondansetron 2017-0 Yes [id number] 4mg Take 1 Tab [facility] (ZOFRAN-ODT 6-29 by mouth 2 [facility] ) 4 mg 00:00: times of disintegrat 00 daily as Medi michael ing tablet needed for e Nausea. ondansetron 2017-0 Yes [id number] 4mg Take 1 Tab [facility] (ZOFRAN-ODT 6-29 by mouth 2 [facility] ) 4 mg 00:00: times of disintegrat 00 daily as Medi michael ing tablet needed for e Nausea. ondansetron 2018-0 Yes [id number] 4mg Take 1 Tab [facility] (ZOFRAN-ODT 6-29 by mouth 2 [facility] ) 4 mg 00:00: times of disintegrat 00 daily as Medi michael ing tablet needed for e Nausea. ondansetron 2017-0 Yes [id number] 4mg Take 1 Tab [facility] (ZOFRAN-ODT 6-29 by mouth 2 [facility] ) 4 mg 00:00: times of disintegrat 00 daily as Medi michael ing tablet needed for e Nausea. ondansetron Yes [id number] 4mg Take 1 Tab [facility] (ZOFRAN-ODT 6-29 by mouth 2 [facility] ) 4 mg 00:00: times of disintegrat 00 daily as Medi michael ing tablet needed for e Nausea. ondansetron Yes [id number] 4mg Take 1 Tab [facility] (ZOFRAN-ODT 6-29 by mouth 2 [facility] ) 4 mg 00:00: times of disintegrat 00 daily as Medi michael ing tablet needed for e Nausea. ondansetron Yes [id number] 4mg Take 1 Tab [facility] (ZOFRAN-ODT 6-29 by mouth 2 [facility] ) 4 mg 00:00: times of disintegrat 00 daily as Medi michael ing tablet needed for e Nausea. ondansetron Yes [id number] 4mg Take 1 Tab [facility] (ZOFRAN-ODT 6-29 by mouth 2 [facility] ) 4 mg 00:00: times of disintegrat 00 daily as Medi michael ing tablet needed for e Nausea. ondansetron 2017-0 Yes [id number] 4mg Take 1 Tab [facility] (ZOFRAN-ODT 6-29 by mouth 2 [facility] ) 4 mg 00:00: times of disintegrat 00 daily as Medi michael ing tablet needed for e Nausea. ondansetron 0 Yes [id number] 4mg Take 1 Tab [facility] (ZOFRAN-ODT 6-29 by mouth 2 [facility] ) 4 mg 00:00: times of disintegrat 00 daily as Medi michael ing tablet needed for e Nausea. ondansetron Yes [id number] 4mg Take 1 Tab [facility] (ZOFRAN-ODT 6-29 by mouth 2 [facility] ) 4 mg 00:00: times of disintegrat 00 daily as Medi michael ing tablet needed for e Nausea. ondansetron 0 Yes [id number] 4mg Take 1 Tab [facility] (ZOFRAN-ODT 6-29 by mouth 2 [facility] ) 4 mg 00:00: times of disintegrat 00 daily as Medi michael ing tablet needed for e Nausea. ondansetron Yes [id number] 4mg Take 1 Tab [facility] (ZOFRAN-ODT 6-29 by mouth 2 [facility] ) 4 mg 00:00: times of disintegrat 00 daily as Medi michale ing tablet needed for e Nausea. ondansetron Yes [id number] 4mg Take 1 Tab [facility] (ZOFRAN-ODT 6-29 by mouth 2 [facility] ) 4 mg 00:00: times of disintegrat 00 daily as Medi michael ing tablet needed for e Nausea. ondansetron Yes [id number] 4mg Take 1 Tab [facility] (ZOFRAN-ODT 6-29 by mouth 2 [facility] ) 4 mg 00:00: times of disintegrat 00 daily as Medi michael ing tablet needed for e Nausea. ondansetron Yes [id number] 4mg Take 1 Tab [facility] (ZOFRAN-ODT 6-29 by mouth 2 [facility] ) 4 mg 00:00: times of disintegrat 00 daily as Medi michael ing tablet needed for e Nausea. ondansetron 2017- Yes [id number] 4mg Take 1 Tab [facility] (ZOFRAN-ODT 6-29 by mouth 2 [facility] ) 4 mg 00:00: times of disintegrat 00 daily as Medi michael ing tablet needed for e Nausea. ondansetron 2018-0 Yes [id number] 4mg Take 1 Tab [facility] (ZOFRAN-ODT 6-29 by mouth 2 [facility] ) 4 mg 00:00: times of disintegrat 00 daily as Medi michael ing tablet needed for e Nausea. ondansetron 2017-0 Yes [id number] 4mg Take 1 Tab [facility] (ZOFRAN-ODT 6-29 by mouth 2 [facility] ) 4 mg 00:00: times of disintegrat 00 daily as Medi michael ing tablet needed for e Nausea. ondansetron 2017-0 Yes [id number] 4mg Take 1 Tab [facility] (ZOFRAN-ODT 6-29 by mouth 2 [facility] ) 4 mg 00:00: times of disintegrat 00 daily as Medi michael ing tablet needed for e Nausea. ondansetron 2017-0 Yes [id number] 4mg Take 1 Tab [facility] (ZOFRAN-ODT 6-29 by mouth 2 [facility] ) 4 mg 00:00: times of disintegrat 00 daily as Medi michael ing tablet needed for e Nausea. ondansetron Yes [id number] 4mg Take 1 Tab [facility] (ZOFRAN-ODT 6-29 by mouth 2 [facility] ) 4 mg 00:00: times of disintegrat 00 daily as Medi michael ing tablet needed for e Nausea. ondansetron 2017- Yes [id number] 4mg Take 1 Tab [facility] (ZOFRAN-ODT 6-29 by mouth 2 [facility] ) 4 mg 00:00: times of disintegrat 00 daily as Medi michael ing tablet needed for e Nausea. ondansetron Yes [id number] 4mg Take 1 Tab [facility] (ZOFRAN-ODT 6-29 by mouth 2 [facility] ) 4 mg 00:00: times of disintegrat 00 daily as Medi michael ing tablet needed for e Nausea. ondansetron 2017-0 Yes [id number] 4mg Take 1 Tab [facility] (ZOFRAN-ODT 6-29 by mouth 2 [facility] ) 4 mg 00:00: times of disintegrat 00 daily as Medi michael ing tablet needed for e Nausea. ondansetron 2017-0 Yes [id number] 4mg Take 1 Tab [facility] (ZOFRAN-ODT 6-29 by mouth 2 [facility] ) 4 mg 00:00: times of disintegrat 00 daily as Medi michael ing tablet needed for e Nausea. ondansetron 2017-0 Yes [id number] 4mg Take 1 Tab [facility] (ZOFRAN-ODT 6-29 by mouth 2 [facility] ) 4 mg 00:00: times of disintegrat 00 daily as Medi michael ing tablet needed for e Nausea. ondansetron 2017-0 Yes [id number] 4mg Take 1 Tab [facility] (ZOFRAN-ODT 6-29 by mouth 2 [facility] ) 4 mg 00:00: times of disintegrat 00 daily as Medi michael ing tablet needed for e Nausea. ondansetron 2018-0 Yes [id number] 4mg Take 1 Tab [facility] (ZOFRAN-ODT 6-29 by mouth 2 [facility] ) 4 mg 00:00: times of disintegrat 00 daily as Medi michael ing tablet needed for e Nausea. ondansetron Yes [id number] 4mg Take 1 Tab [facility] (ZOFRAN-ODT 6-29 by mouth 2 [facility] ) 4 mg 00:00: times of disintegrat 00 daily as Medi michael ing tablet needed for e Nausea. ondansetron Yes [id number] 4mg Take 1 Tab [facility] (ZOFRAN-ODT 6-29 by mouth 2 [facility] ) 4 mg 00:00: times of disintegrat 00 daily as Medi michael ing tablet needed for e Nausea. ondansetron Yes [id number] 4mg Take 1 Tab [facility] (ZOFRAN-ODT 6-29 by mouth 2 [facility] ) 4 mg 00:00: times of disintegrat 00 daily as Medi michael ing tablet needed for e Nausea. ondansetron Yes [id number] 4mg Take 1 Tab [facility] (ZOFRAN-ODT 6-29 by mouth 2 [facility] ) 4 mg 00:00: times of disintegrat 00 daily as Medi michael ing tablet needed for e Nausea. ondansetron Yes [id number] 4mg Take 1 Tab [facility] (ZOFRAN-ODT 6-29 by mouth 2 [facility] ) 4 mg 00:00: times of disintegrat 00 daily as Medi michael ing tablet needed for e Nausea. ondansetron Yes [id number] 4mg Take 1 Tab [facility] (ZOFRAN-ODT 6-29 by mouth 2 [facility] ) 4 mg 00:00: times of disintegrat 00 daily as Medi michael ing tablet needed for e Nausea. ondansetron Yes [id number] 4mg Take 1 Tab [facility] (ZOFRAN-ODT 6-29 by mouth 2 [facility] ) 4 mg 00:00: times of disintegrat 00 daily as Medi michael ing tablet needed for e Nausea. ondansetron Yes [id number] 4mg Take 1 Tab [facility] (ZOFRAN-ODT 6-29 by mouth 2 [facility] ) 4 mg 00:00: times of disintegrat 00 daily as Medi michael ing tablet needed for e Nausea. ondansetron Yes [id number] 4mg Take 1 Tab [facility] (ZOFRAN-ODT 6-29 by mouth 2 [facility] ) 4 mg 00:00: times of disintegrat 00 daily as Medi michael ing tablet needed for e Nausea. ondansetron Yes [id number] 4mg Take 1 Tab [facility] (ZOFRAN-ODT 6-29 by mouth 2 [facility] ) 4 mg 00:00: times of disintegrat 00 daily as Medi michael ing tablet needed for e Nausea. ondansetron Yes [id number] 4mg Take 1 Tab [facility] (ZOFRAN-ODT 6-29 by mouth 2 [facility] ) 4 mg 00:00: times of disintegrat 00 daily as Medi michael ing tablet needed for e Nausea. ondansetron Yes [id number] 4mg Take 1 Tab [facility] (ZOFRAN-ODT 6-29 by mouth 2 [facility] ) 4 mg 00:00: times of disintegrat 00 daily as Medi michael ing tablet needed for e Nausea. ondansetron Yes [id number] 4mg Take 1 Tab [facility] (ZOFRAN-ODT 6-29 by mouth 2 [facility] ) 4 mg 00:00: times of disintegrat 00 daily as Medi michael ing tablet needed for e Nausea. ondansetron Yes [id number] 4mg Take 1 Tab [facility] (ZOFRAN-ODT 6-29 by mouth 2 [facility]lege ) 4 mg 00:00: times of disintegrat 00 daily as Medi michael ing tablet needed for e Nausea. ondansetron 2017- Yes [id number] 4mg Take 1 Tab [facility] (ZOFRAN-ODT 6-29 by mouth 2 [facility] ) 4 mg 00:00: times of disintegrat 00 daily as Medi michael ing tablet needed for e Nausea. SPIRIVA Yes [facility] 5-04 [place] 18 MCG 00:00: of inhalation 00 Medicin capsule e SPIRIVA 2018-0 Yes [facility] 5-04 [employer] 18 MCG 00:00: of inhalation 00 Medicin capsule e SPIRIVA 2018-0 Yes [facility] 5-04 [employer] 18 MCG 00:00: of inhalation 00 Medicin capsule e SPIRIVA 2018-0 Yes [facility] 5-04 [employer] 18 MCG 00:00: of inhalation 00 Medicin capsule e SPIRIVA 2018-0 Yes [facility] 5[facility]04 [employer] 18 MCG 00:00: of inhalation 00 Medicin capsule e SPIRIVA 2018-0 Yes [facility] HAND[facility] 5-04 [employer] 18 MCG 00:00: of inhalation 00 Medicin capsule e SPIRIVA 2018-0 Yes [facility] 5-04 [employer] 18 MCG 00:00: of inhalation 00 Medicin capsule e SPIRIVA 2018-0 Yes [facility] 5-04 [employer] 18 MCG 00:00: of inhalation 00 Medicin capsule e SPIRIVA 2018-0 Yes [facility] 5-04 [employer] 18 MCG 00:00: of inhalation 00 Medicin capsule e SPIRIVA 2018-0 Yes [facility] 5-04 [employer] 18 MCG 00:00: of inhalation 00 Medicin capsule e SPIRIVA 2018-0 Yes [facility] 5-04 [employer] 18 MCG 00:00: of inhalation 00 Medicin capsule e SPIRIVA 2018-0 Yes [facility] 5-04 [employer] 18 MCG 00:00: of inhalation 00 Medicin capsule e SPIRIVA 2018-0 Yes [facility] 5-04 [employer] 18 MCG 00:00: of inhalation 00 Medicin capsule e levothyroxi 2018-0 Yes [facility] ne 5-04 [employer] (SYNTHROID) 00:00: of 200 MCG 00 Medicin tablet e SPIRIVA 2018-0 Yes [facility] 5[facility]04 [employer] 18 MCG 00:00: of inhalation 00 Medicin capsule e SPIRIVA 2018-0 Yes [facility] 5-04 [employer] 18 MCG 00:00: of inhalation 00 Medicin capsule e SPIRIVA 2018-0 Yes [facility] 5-04 [employer] 18 MCG 00:00: of inhalation 00 Medicin capsule e SPIRIVA 2018-0 Yes [facility] 5-04 [employer] 18 MCG 00:00: of inhalation 00 Medicin capsule e SPIRIVA 2018-0 Yes [facility] 5-04 [employer] 18 MCG 00:00: of inhalation 00 Medicin capsule e SPIRIVA 2018-0 Yes [facility] 5-04 [place] 18 MCG 00:00: of inhalation 00 Medicin capsule e SPIRIVA 2018-0 Yes [facility] HAND[facility]ALER 5-04 [place] 18 MCG 00:00: of inhalation 00 Medicin capsule e SPIRIVA 2018-0 Yes [facility] HANDIHALER 5-04 [place] 18 MCG 00:00: of inhalation 00 Medicin capsule e SPIRIVA 2018-0 Yes 18ug Inhale 18 [facility] [facility] 5-04 mcg by [place] 18 MCG 00:00: mouth of inhalation 00 daily. Medicin capsule e levothyroxi 2018-0 Yes [facility] ne 5-04 [place] (SYNTHROID) 00:00: of 200 MCG 00 Medicin tablet e SPIRIVA 2017-0 Yes [facility] HAND[facility]ALER 5-04 [place] 18 MCG 00:00: of inhalation 00 Medicin capsule e SPIRIVA 2018-0 Yes 18ug Inhale 18 [employer] [facility] 5-04 mcg by [place] 18 MCG 00:00: mouth of inhalation 00 daily. Medicin capsule e SPIRIVA 2018-0 Yes 18ug Inhale 18 [employer] [facility] 5-04 mcg by [place] 18 MCG 00:00: mouth of inhalation 00 daily. Medicin capsule e SPIRIVA 2018-0 Yes 18ug Inhale 18 [employer] [facility] 5-04 mcg by [place] 18 MCG 00:00: mouth of inhalation 00 daily. Medicin capsule e SPIRIVA 2018-0 Yes 18ug Inhale 18 [employer] [facility] 5-04 mcg by [place] 18 MCG 00:00: mouth of inhalation 00 daily. Medicin capsule e SPIRIVA 2018-0 Yes 18ug Inhale 18 [employer] [facility] 5-04 mcg by [employer] 18 MCG 00:00: mouth of inhalation 00 daily. Medicin capsule e SPIRIVA 2018-0 Yes 18ug Inhale 18 [employer] [facility] 5-04 mcg by [employer] 18 MCG 00:00: mouth of inhalation 00 daily. Medicin capsule e SPIRIVA 2018-0 Yes 18ug Inhale 18 [employer] [facility] 5-04 mcg by [place] 18 MCG 00:00: mouth of inhalation 00 daily. Medicin capsule e levothyroxi 2018-0 Yes [facility] 5-04 [employer] (SYNTHROID) 00:00: of 200 MCG 00 Medicin tablet e SPIRIVA 2018-0 Yes [facility]AL[facility] 5-04 [place] 18 MCG 00:00: of inhalation 00 Medicin capsule e SPIRIVA 2018-0 Yes 18ug Inhale 18 [employer] [facility] 5-04 mcg by [employer] 18 MCG 00:00: mouth of inhalation 00 daily. Medicin capsule e SPIRIVA 2018-0 Yes 18ug Inhale 18 [employer] [facility] 5-04 mcg by [employer] 18 MCG 00:00: mouth of inhalation 00 daily. Medicin capsule e SPIRIVA 2018-0 Yes 18ug Inhale 18 [employer] [facility] 5-04 mcg by [employer] 18 MCG 00:00: mouth of inhalation 00 daily. Medicin capsule e SPIRIVA 2018-0 Yes 18ug Inhale 18 [employer] [facility] 5-04 mcg by [employer] 18 MCG 00:00: mouth of inhalation 00 daily. Medicin capsule e SPIRIVA 2018-0 Yes 18ug Inhale 18 [employer] [facility] 5-04 mcg by [employer] 18 MCG 00:00: mouth of inhalation 00 daily. Medicin capsule e SPIRIVA 2017-0 Yes 18ug Inhale 18 [employer] [facility] 5-04 mcg by [employer] 18 MCG 00:00: mouth of inhalation 00 daily. Medicin capsule e SPIRIVA 2017-0 Yes 18ug Inhale 18 [employer] [facility] 5-04 mcg by [employer] 18 MCG 00:00: mouth of inhalation 00 daily. Medicin capsule e levothyroxi 2018-0 Yes [facility] 5-04 [place] (SYNTHROID) 00:00: of 200 MCG 00 Medicin tablet e SPIRIVA 2018-0 Yes 18ug Inhale 18 [employer] [facility] 5-04 mcg by [employer] 18 MCG 00:00: mouth of inhalation 00 daily. Medicin capsule e SPIRIVA 2018-0 Yes [facility] 5-04 [employer] 18 MCG 00:00: of inhalation 00 Medicin capsule e SPIRIVA 2018-0 Yes 18ug Inhale 18 [employer] [facility] 5-04 mcg by [employer] 18 MCG 00:00: mouth of inhalation 00 daily. Medicin capsule e SPIRIVA 2018-0 Yes 18ug Inhale 18 [employer] [facility] 5-04 mcg by [employer] 18 MCG 00:00: mouth of inhalation 00 daily. Medicin capsule e SPIRIVA 2018-0 Yes 18ug Inhale 18 [employer] [facility] 5-04 mcg by [employer] 18 MCG 00:00: mouth of inhalation 00 daily. Medicin capsule e SPIRIVA 2018-0 Yes 18ug Inhale 18 [employer] [facility] 5-04 mcg by [employer] 18 MCG 00:00: mouth of inhalation 00 daily. Medicin capsule e SPIRIVA 2018-0 Yes 18ug Inhale 18 [employer] [facility] 5-04 mcg by [employer] 18 MCG 00:00: mouth of inhalation 00 daily. Medicin capsule e SPIRIVA 2018-0 Yes 18ug Inhale 18 [employer] [facility] 5-04 mcg by [employer] 18 MCG 00:00: mouth of inhalation 00 daily. Medicin capsule e levothyroxi 2018-0 Yes [facility] 5-04 [employer] (SYNTHROID) 00:00: of 200 MCG 00 Medicin tablet e SPIRIVA 2018-0 Yes [facility] 5-04 [place] 18 MCG 00:00: of inhalation 00 Medicin capsule e levothyroxi 2018-0 Yes [facility] 5-04 [employer] (SYNTHROID) 00:00: of 200 MCG 00 Medicin tablet e SPIRIVA 2018-0 [facility] [place] 18 MCG 00:00: of inhalation 00 Medicin capsule e levothyroxi 2018-0 Yes [facility] 5-04 [employer] (SYNTHROID) 00:00: of 200 MCG 00 [facility] [place] [facility] MCG 00:00: of inhalation 00 Medicin capsule e levothyroxi 2018-0 Yes [facility] 5-04 [place] (SYNTHROID) 00:00: of 200 MCG 00 Medicin tablet e SPIRIVA 2018-0 Yes [facility]ALER 5-04 [place] 18 MCG 00:00: of inhalation 00 Medicin capsule e levothyroxi 2018-0 Yes [facility] 5-04 [place] (SYNTHROID) 00:00: of 200 MCG 00 Medicin tablet e SPIRIVA 2018-0 Yes [facility] 5-04 [place] 18 MCG 00:00: of inhalation 00 Medicin capsule e [facility]IRIVA 2018-0 [facility] [place] 18 MCG 00:00: of inhalation 00 Medicin capsule e SPIRIVA 2018-0 Yes [facility] 5-04 [employer] 18 MCG 00:00: of inhalation 00 Medicin capsule e SPIRIVA 2018-0 Yes [facility] 5-04 [place] 18 MCG 00:00: of inhalation 00 Medicin capsule e SPIRIVA 2018-0 Yes [facility] 5-04 [place] 18 MCG 00:00: of inhalation 00 Medicin capsule e SPIRIVA 2018-0 Yes [facility] 5-04 [place] 18 MCG 00:00: of inhalation 00 Medicin capsule e SPIRIVA 2018-0 Yes [facility] 5-04 [place] 18 MCG 00:00: of inhalation 00 Medicin capsule e SPIRIVA 2018-0 Yes [facility] 5-04 [place] 18 MCG 00:00: of inhalation 00 Medicin capsule e SPIRIVA 2018-0 Yes [facility] 5-04 [place] 18 MCG 00:00: of inhalation 00 Medicin capsule e SPIRIVA 2018-0 Yes [facility] 5-04 [place] 18 MCG 00:00: of inhalation 00 Medicin capsule e SPIRIVA 2018-0 Yes [facility] 5-04 [place] 18 MCG 00:00: of inhalation 00 Medicin capsule e SPIRIVA 2018-0 Yes [facility] 5-04 [place] 18 MCG 00:00: of inhalation 00 Medicin capsule e levothyroxi 2017-0 1- No [facility] -04 03-05 [place] (SYNTHROID) 00:00: 00:00 of 200 MCG 00 :00 Medicin tablet e Cholecalcif 2018-0 Yes [id number] 1000U Take 1,000 [facility] (D3 2-18 Units by [employer] ADULT) 1000 00:00: mouth of UNITS CHEW 00 daily. Medicin e Cholecalcif 2018-0 Yes [id number] 1000U Take 1,000 [facility] miguel (D3 2-18 Units by [employer] ADULT) 1000 00:00: mouth of UNITS CHEW 00 daily. Medicin e Zinc 50 MG 2018-0 Yes [id number] 50mg Take 50 mg [facility] CAPS 2-18 by mouth [place] 00:00: daily. of Medicin e Zinc 50 MG 2018-0 Yes [id number] 50mg Take 50 mg [facility] CAPS 2-18 by mouth [place] 00:00: daily. of 00 Medicin e Cholecalcif 2017-0 Yes [id number] 1000U Take 1,000 [facility] (D3 2-18 Units by [employer] ADULT) 1000 00:00: mouth of UNITS CHEW 00 daily. Medicin e Zinc 50 MG 2018-0 Yes [id number] 50mg Take 50 mg [facility] CAPS 2-18 by mouth [place] 00:00: daily. of 00 Medicin e Cholecalcif 2018-0 Yes [id number] 1000U Take 1,000 [facility] (D3 2-18 Units by [employer] ADULT) 1000 00:00: mouth of UNITS CHEW 00 daily. Medicin e Zinc 50 MG 2018-0 Yes [id number] 50mg Take 50 mg [facility] CAPS 2-18 by mouth [place] 00:00: daily. of Medicin e Cholecalcif 2018-0 Yes [id number] 1000U Take 1,000 [facility] miguel (D3 2-18 Units by [employer] ADULT) 1000 00:00: mouth of UNITS CHEW 00 daily. Medicin e Zinc 50 MG 2018-0 Yes [id number] 50mg Take 50 mg [facility] CAPS 2-18 by mouth [place] 00:00: daily. of Medicin e Cholecalcif 2018-0 Yes [id number] 1000U Take 1,000 [facility] (D3 2-18 Units by [employer] ADULT) 1000 00:00: mouth of UNITS CHEW 00 daily. Medicin e Zinc 50 MG 2018-0 Yes [id number] 50mg Take 50 mg [facility] CAPS 2-18 by mouth [place] 00:00: daily. of 00 Medicin e Cholecalcif 2018-0 Yes [id number] 1000U Take 1,000 [facility] miguel (D3 2-18 Units by [employer] ADULT) 1000 00:00: mouth of UNITS CHEW 00 daily. Medicin e Zinc 50 MG 2018-0 Yes [id number] 50mg Take 50 mg [facility] CAPS 2-18 by mouth [place] 00:00: daily. of 00 Medicin e Cholecalcif 2018-0 Yes [id number] 1000U Take 1,000 [facility] (D3 2-18 Units by [employer] ADULT) 1000 00:00: mouth of UNITS CHEW 00 daily. Medicin e Zinc 50 MG 2018-0 Yes [id number] 50mg Take 50 mg [facility] CAPS 2-18 by mouth [place] 00:00: daily. of 00 Medicin e Cholecalcif 2018-0 Yes [id number] 1000U Take 1,000 [facility] (D3 2-18 Units by [employer] ADULT) 1000 00:00: mouth of UNITS CHEW 00 daily. Medicin e Zinc 50 MG 2018-0 Yes [id number] 50mg Take 50 mg [facility] CAPS 2-18 by mouth [place] 00:00: daily. of 00 Medicin e Cholecalcif 2018-0 Yes [id number] 1000U Take 1,000 [facility] (D3 2-18 Units by [employer] ADULT) 1000 00:00: mouth of UNITS CHEW 00 daily. Medicin e Zinc 50 MG 2018-0 Yes [id number] 50mg Take 50 mg [facility] CAPS 2-18 by mouth [place] 00:00: daily. of 00 Medicin e Cholecalcif 2018-0 Yes [id number] 1000U Take 1,000 [facility] (D3 2-18 Units by [employer] ADULT) 1000 00:00: mouth of UNITS CHEW 00 daily. Medicin e Zinc 50 MG 2018-0 Yes [id number] 50mg Take 50 mg [facility] CAPS 2-18 by mouth [place] 00:00: daily. of Medicin e Cholecalcif 2018-0 Yes [id number] 1000U Take 1,000 [facility] miguel (D3 2-18 Units by [employer] ADULT) 1000 00:00: mouth of UNITS CHEW 00 daily. Medicin e Zinc 50 MG 2018-0 Yes [id number] 50mg Take 50 mg [facility] CAPS 2-18 by mouth [place] 00:00: daily. of 00 Medicin e Cholecalcif 2018-0 Yes [id number] 1000U Take 1,000 [facility] (D3 2-18 Units by [employer] ADULT) 1000 00:00: mouth of UNITS CHEW 00 daily. Medicin e Zinc 50 MG 2018-0 Yes [id number] 50mg Take 50 mg [facility] CAPS 2-18 by mouth [place] 00:00: daily. of 00 Medicin e Cholecalcif 2018-0 Yes [id number] 1000U Take 1,000 [facility] miguel (D3 2-18 Units by [employer] ADULT) 1000 00:00: mouth of UNITS CHEW 00 daily. Medicin e Zinc 50 MG 2018-0 Yes [id number] 50mg Take 50 mg [facility] CAPS 2-18 by mouth [place] 00:00: daily. of 00 Medicin e Cholecalcif 2018-0 Yes [id number] 1000U Take 1,000 [facility] (D3 2-18 Units by [employer] ADULT) 1000 00:00: mouth of UNITS CHEW 00 daily. Medicin e Zinc 50 MG 2018-0 Yes [id number] 50mg Take 50 mg [facility]S 2-18 by mouth [place] 00:00: daily. of 00 Medicin e Cholecalcif 2018-0 Yes [id number] 1000U Take 1,000 [facility] (D3 2-18 Units by [employer] ADULT) 1000 00:00: mouth of UNITS CHEW 00 daily. Medicin e Zinc 50 MG 2018-0 Yes [id number] 50mg Take 50 mg [facility]S 2-18 by mouth [place] 00:00: daily. of 00 Medicin e Cholecalcif 2018-0 Yes [id number] 1000U Take 1,000 [facility] miguel (D3 2-18 Units by [employer] AD[facility]) 1000 00:00: mouth of UNITS CHEW 00 daily. Medicin e Zinc 50 MG 2018-0 Yes [id number] 50mg Take 50 mg [facility] CAPS 2-18 by mouth [place] 00:00: daily. of Medicin e Cholecalcif 2017-0 Yes [id number] 1000U Take 1,000 [facility] miguel (D3 2-18 Units by [facility] ADULT) 1000 00:00: mouth of UNITS CHEW 00 daily. Medicin e Zinc 50 MG 2018-0 Yes [id number] 50mg Take 50 mg [facility] CAPS 2-18 by mouth [place] 00:00: daily. of 00 Medicin e Cholecalcif 2017-0 Yes [id number] 1000U Take 1,000 [facility] (D3 2-18 Units by [facility] ADULT) 1000 00:00: mouth of UNITS CHEW 00 daily. Medicin e Zinc 50 MG 2018-0 Yes [id number] 50mg Take 50 mg [facility] CAPS 2-18 by mouth [place] 00:00: daily. of 00 Medicin e Cholecalcif 2018-0 Yes [id number] 1000U Take 1,000 [facility] miguel (D3 2-18 Units by [facility] ADULT) 1000 00:00: mouth of UNITS CHEW 00 daily. Medicin e Zinc 50 MG 2018-0 Yes [id number] 50mg Take 50 mg [facility] CAPS 2-18 by mouth [place] 00:00: daily. of 00 Medicin e Cholecalcif 2018-0 Yes [id number] 1000U Take 1,000 [facility] miguel (D3 2-18 Units by [facility] ADULT) 1000 00:00: mouth of UNITS CHEW 00 daily. Medicin e Zinc 50 MG 2018-0 Yes [id number] 50mg Take 50 mg [facility] CAPS 2-18 by mouth [place] 00:00: daily. of 00 Medicin e Cholecalcif 2018-0 Yes [id number] 1000U Take 1,000 [facility] miguel (D3 2-18 Units by [facility] ADULT) 1000 00:00: mouth of UNITS CHEW 00 daily. Medicin e Zinc 50 MG 2018-0 Yes [id number] 50mg Take 50 mg [facility] CAPS 2-18 by mouth [place] 00:00: daily. of 00 Medicin e Cholecalcif 2018-0 Yes [id number] 1000U Take 1,000 [facility] (D3 2-18 Units by [employer] ADULT) 1000 00:00: mouth of UNITS CHEW 00 daily. Medicin e Zinc 50 MG 2018-0 Yes [id number] 50mg Take 50 mg [facility] CAPS 2-18 by mouth [place] 00:00: daily. of 00 Medicin e Cholecalcif 2018-0 Yes [id number] 1000U Take 1,000 [facility] (D3 2-18 Units by [employer] ADULT) 1000 00:00: mouth of UNITS CHEW 00 daily. Medicin e Zinc 50 MG 2018-0 Yes [id number] 50mg Take 50 mg [facility] CAPS 2-18 by mouth [place] 00:00: daily. of 00 Medicin e Cholecalcif 2018-0 Yes [id number] 1000U Take 1,000 [facility] miguel (D3 2-18 Units by [employer] ADULT) 1000 00:00: mouth of UNITS CHEW 00 daily. Medicin e Zinc 50 MG 2018-0 Yes [id number] 50mg Take 50 mg [facility] CAPS 2-18 by mouth [place] 00:00: daily. of 00 Medicin e Cholecalcif 2018-0 Yes [id number] 1000U Take 1,000 [facility] miguel (D3 2-18 Units by [employer] ADULT) 1000 00:00: mouth of UNITS CHEW 00 daily. Medicin e Zinc 50 MG 2018-0 Yes [id number] 50mg Take 50 mg [facility] CAPS 2-18 by mouth [place] 00:00: daily. of 00 Medicin e Cholecalcif 2018-0 Yes [id number] 1000U Take 1,000 [facility] miguel (D3 2-18 Units by [employer] ADULT) 1000 00:00: mouth of UNITS CHEW 00 daily. Medicin e Zinc 50 MG 2018-0 Yes [id number] 50mg Take 50 mg [facility] CAPS 2-18 by mouth [place] 00:00: daily. of 00 Medicin e Cholecalcif 2018-0 Yes [id number] 1000U Take 1,000 [facility] (D3 2-18 Units by [employer] ADULT) 1000 00:00: mouth of UNITS CHEW 00 daily. Medicin e Zinc 50 MG 2018-0 Yes [id number] 50mg Take 50 mg [facility] CAPS 2-18 by mouth [place] 00:00: daily. of 00 Medicin e Cholecalcif 2018-0 Yes [id number] 1000U Take 1,000 [facility] (D3 2-18 Units by [employer] ADULT) 1000 00:00: mouth of UNITS CHEW 00 daily. Medicin e Zinc 50 MG 2018-0 Yes [id number] 50mg Take 50 mg [facility] CAPS 2-18 by mouth [place] 00:00: daily. of Medicin e Cholecalcif 2018-0 Yes [id number] 1000U Take 1,000 [facility] miguel (D3 2-18 Units by [employer] ADULT) 1000 00:00: mouth of UNITS CHEW 00 daily. Medicin e Zinc 50 MG 2018-0 Yes [id number] 50mg Take 50 mg [facility] CAPS 2-18 by mouth [place] 00:00: daily. of Medicin e Cholecalcif 2018-0 Yes [id number] 1000U Take 1,000 [facility] miguel (D3 2-18 Units by [employer] ADULT) 1000 00:00: mouth of UNITS CHEW 00 daily. Medicin e Zinc 50 MG 2018-0 Yes [id number] 50mg Take 50 mg [facility] CAPS 2-18 by mouth [place] 00:00: daily. of 00 Medicin e Cholecalcif 2018-0 Yes [id number] 1000U Take 1,000 [facility] miguel (D3 2-18 Units by [employer] ADULT) 1000 00:00: mouth of UNITS CHEW 00 daily. Medicin e Zinc 50 MG 2018-0 Yes [id number] 50mg Take 50 mg [facility] CAPS 2-18 by mouth [place] 00:00: daily. of 00 Medicin e Cholecalcif 2018-0 Yes [id number] 1000U Take 1,000 [facility] miguel (D3 2-18 Units by [employer] ADULT) 1000 00:00: mouth of UNITS CHEW 00 daily. Medicin e Zinc 50 MG 2018-0 Yes [id number] 50mg Take 50 mg [facility] CAPS 2-18 by mouth [place] 00:00: daily. of 00 Medicin e Cholecalcif 2018-0 Yes [id number] 1000U Take 1,000 [facility] (D3 2-18 Units by [employer] ADULT) 1000 00:00: mouth of UNITS CHEW 00 daily. Medicin e Zinc 50 MG 2018-0 Yes [id number] 50mg Take 50 mg [facility] CAPS 2-18 by mouth [place] 00:00: daily. of 00 Medicin e Cholecalcif 2018-0 Yes [id number] 1000U Take 1,000 [facility] (D3 2-18 Units by [employer] ADULT) 1000 00:00: mouth of UNITS CHEW 00 daily. Medicin e Zinc 50 MG 2018-0 Yes [id number] 50mg Take 50 mg [facility] CAPS 2-18 by mouth [place] 00:00: daily. of 00 Medicin e Cholecalcif 2018-0 Yes [id number] 1000U Take 1,000 [facility] (D3 2-18 Units by [employer] ADULT) 1000 00:00: mouth of UNITS CHEW 00 daily. Medicin e Zinc 50 MG 2018-0 Yes [id number] 50mg Take 50 mg [facility] CAPS 2-18 by mouth [place] 00:00: daily. of Medicin e Cholecalcif 2018-0 Yes [id number] 1000U Take 1,000 [facility] miguel (D3 2-18 Units by [employer] ADULT) 1000 00:00: mouth of UNITS CHEW 00 daily. Medicin e Zinc 50 MG 2018-0 Yes [id number] 50mg Take 50 mg [facility] CAPS 2-18 by mouth [place] 00:00: daily. of 00 Medicin e Cholecalcif 2018-0 Yes [id number] 1000U Take 1,000 [facility] miguel (D3 2-18 Units by [employer] ADULT) 1000 00:00: mouth of UNITS CHEW 00 daily. Medicin e Zinc 50 MG 2018-0 Yes [id number] 50mg Take 50 mg [facility] CAPS 2-18 by mouth [place] 00:00: daily. of 00 Medicin e Cholecalcif 2018-0 Yes [id number] 1000U Take 1,000 [facility] miguel (D3 2-18 Units by [employer] ADULT) 1000 00:00: mouth of UNITS CHEW 00 daily. Medicin e Zinc 50 MG 2018-0 Yes [id number] 50mg Take 50 mg [facility] CAPS 2-18 by mouth [place] 00:00: daily. of 00 Medicin e Cholecalcif 2018-0 Yes [id number] 1000U Take 1,000 [facility] (D3 2-18 Units by [employer] ADULT) 1000 00:00: mouth of UNITS CHEW 00 daily. Medicin e Zinc 50 MG 2018-0 Yes [id number] 50mg Take 50 mg [facility] CAPS 2-18 by mouth [place] 00:00: daily. of 00 Medicin e Cholecalcif 2018-0 Yes [id number] 1000U Take 1,000 [facility] miguel (D3 2-18 Units by [employer] ADULT) 1000 00:00: mouth of UNITS CHEW 00 daily. Medicin e Zinc 50 MG 2018-0 Yes [id number] 50mg Take 50 mg [facility] CAPS 2-18 by mouth [place] 00:00: daily. of 00 Medicin e Cholecalcif 2018-0 Yes [id number] 1000U Take 1,000 [facility] miguel (D3 2-18 Units by [employer] ADULT) 1000 00:00: mouth of UNITS CHEW 00 daily. Medicin e Zinc 50 MG 2018-0 Yes [id number] 50mg Take 50 mg [facility] CAPS 2-18 by mouth [place] 00:00: daily. of Medicin e Cholecalcif 2017-0 Yes [id number] 1000U Take 1,000 [facility] miguel (D3 2-18 Units by [employer] ADULT) 1000 00:00: mouth of UNITS CHEW 00 daily. Medicin e Zinc 50 MG 2018-0 Yes [id number] 50mg Take 50 mg [facility] CAPS 2-18 by mouth [place] 00:00: daily. of 00 Medicin e Cholecalcif 2017-0 Yes [id number] 1000U Take 1,000 [facility] miguel (D3 2-18 Units by [employer] ADULT) 1000 00:00: mouth of UNITS CHEW 00 daily. Medicin e Zinc 50 MG 2018-0 Yes [id number] 50mg Take 50 mg [facility] CAPS 2-18 by mouth [place] 00:00: daily. of 00 Medicin e Cholecalcif 2018-0 Yes [id number] 1000U Take 1,000 [facility] (D3 2-18 Units by [employer] ADULT) 1000 00:00: mouth of UNITS CHEW 00 daily. Medicin e Zinc 50 MG 2018-0 Yes [id number] 50mg Take 50 mg [facility] CAPS 2-18 by mouth [place] 00:00: daily. of 00 Medicin e Cholecalcif 2018-0 Yes [id number] 1000U Take 1,000 [facility] (D3 2-18 Units by [employer] ADULT) 1000 00:00: mouth of UNITS CHEW 00 daily. Medicin e Zinc 50 MG 2018-0 Yes [id number] 50mg Take 50 mg [facility] CAPS 2-18 by mouth [place] 00:00: daily. of 00 Medicin e Cholecalcif 2018-0 Yes [id number] 1000U Take 1,000 [facility] miguel (D3 2-18 Units by [employer] ADULT) 1000 00:00: mouth of UNITS CHEW 00 daily. Medicin e Zinc 50 MG 2018-0 Yes [id number] 50mg Take 50 mg [facility] CAPS 2-18 by mouth [place] 00:00: daily. of 00 Medicin e Cholecalcif 2018-0 Yes [id number] 1000U Take 1,000 [facility] miguel (D3 2-18 Units by [employer] ADULT) 1000 00:00: mouth of UNITS CHEW 00 daily. Medicin e Zinc 50 MG 2018-0 Yes [id number] 50mg Take 50 mg [facility] CAPS 2-18 by mouth [place] 00:00: daily. of 00 Medicin e Cholecalcif 2018-0 Yes [id number] 1000U Take 1,000 [facility] (D3 2-18 Units by [employer] ADULT) 1000 00:00: mouth of UNITS CHEW 00 daily. Medicin e Zinc 50 MG 2018-0 Yes [id number] 50mg Take 50 mg [facility] CAPS 2-18 by mouth [place] 00:00: daily. of 00 Medicin e Cholecalcif 2018-0 Yes [id number] 1000U Take 1,000 [facility] (D3 2-18 Units by [employer] ADULT) 1000 00:00: mouth of UNITS CHEW 00 daily. Medicin e Zinc 50 MG 2018-0 Yes [id number] 50mg Take 50 mg [facility] CAPS 2-18 by mouth [place] 00:00: daily. of 00 Medicin e Cholecalcif 2018-0 Yes [id number] 1000U Take 1,000 [facility] (D3 2-18 Units by [employer] AD[facility]) 1000 00:00: mouth of UNITS CHEW 00 daily. Medicin e Zinc 50 MG 2018-0 Yes [id number] 50mg Take 50 mg [facility] CAPS 2-18 by mouth [place] 00:00: daily. of 00 Medicin e Cholecalcif 2018-0 Yes [id number] 1000U Take 1,000 [facility] miguel (D3 2-18 Units by [employer] ADULT) 1000 00:00: mouth of UNITS CHEW 00 daily. Medicin e Zinc 50 MG 2018-0 Yes [id number] 50mg Take 50 mg [facility] CAPS 2-18 by mouth [place] 00:00: daily. of 00 Medicin e Cholecalcif 2018-0 Yes [id number] 1000U Take 1,000 [facility] miguel (D3 2-18 Units by [employer] ADULT) 1000 00:00: mouth of UNITS CHEW 00 daily. Medicin e Zinc 50 MG 2018-0 Yes [id number] 50mg Take 50 mg [facility] CAPS 2-18 by mouth [place] 00:00: daily. of 00 Medicin e Cholecalcif 2018-0 Yes [id number] 1000U Take 1,000 [facility] miguel (D3 2-18 Units by [employer] ADULT) 1000 00:00: mouth of UNITS CHEW 00 daily. Medicin e Zinc 50 MG 2018-0 Yes [id number] 50mg Take 50 mg [facility] CAPS 2-18 by mouth [place] 00:00: daily. of Medicin e Cholecalcif 2018-0 Yes [id number] 1000U Take 1,000 [facility] miguel (D3 2-18 Units by [facility] ADULT) 1000 00:00: mouth of UNITS CHEW 00 daily. Medicin e Zinc 50 MG 2018-0 Yes [id number] 50mg Take 50 mg [facility] CAPS 2-18 by mouth [place] 00:00: daily. of Medicin e Cholecalcif 2018-0 Yes [id number] 1000U Take 1,000 [facility] (D3 2-18 Units by [employer] ADULT) 1000 00:00: mouth of UNITS CHEW 00 daily. Medicin e Zinc 50 MG 2018-0 Yes [id number] 50mg Take 50 mg [facility] CAPS 2-18 by mouth [place] 00:00: daily. of 00 Medicin e Cholecalcif 2018-0 Yes [id number] 1000U Take 1,000 [facility] miguel (D3 2-18 Units by [employer] ADULT) 1000 00:00: mouth of UNITS CHEW 00 daily. Medicin e Zinc 50 MG 2018-0 Yes [id number] 50mg Take 50 mg [facility] CAPS 2-18 by mouth [place] 00:00: daily. of 00 Medicin e Cholecalcif 2018-0 Yes [id number] 1000U Take 1,000 [facility] miguel (D3 2-18 Units by [facility] ADULT) 1000 00:00: mouth of UNITS CHEW 00 daily. Medicin e Zinc 50 MG 2018-0 Yes [id number] 50mg Take 50 mg [facility] CAPS 2-18 by mouth [place] 00:00: daily. of 00 Medicin e Cholecalcif 2018-0 Yes [id number] 1000U Take 1,000 [facility] miguel (D3 2-18 Units by [employer] ADULT) 1000 00:00: mouth of UNITS CHEW 00 daily. Medicin e Zinc 50 MG 2018-0 Yes [id number] 50mg Take 50 mg [facility] CAPS 2-18 by mouth [employer] 00:00: daily. of 00 Medicin e Cholecalcif 2018-0 Yes [id number] 1000U Take 1,000 [facility] (D3 2-18 Units by [employer] ADULT) 1000 00:00: mouth of UNITS CHEW 00 daily. Medicin e Zinc 50 MG 2018-0 Yes [id number] 50mg Take 50 mg [facility] CAPS 2-18 by mouth [employer] 00:00: daily. of 00 Medicin e Cholecalcif 2018-0 Yes [id number] 1000U Take 1,000 [facility] (D3 2-18 Units by [employer] ADULT) 1000 00:00: mouth of UNITS CHEW 00 daily. Medicin e Zinc 50 MG 2018-0 Yes [id number] 50mg Take 50 mg [facility] CAPS 2-18 by mouth [place] 00:00: daily. of 00 Medicin e Cholecalcif 2018-0 Yes [id number] 1000U Take 1,000 [facility] (D3 2-18 Units by [employer] ADULT) 1000 00:00: mouth of UNITS CHEW 00 daily. Medicin e Zinc 50 MG 2018-0 Yes [id number] 50mg Take 50 mg [facility] CAPS 2-18 by mouth [place] 00:00: daily. of 00 Medicin e pantoprazol 2016-04 Yes 40mg Take 1 Tab [facility] e 1-11 by mouth [place] (PROTONIX) 00:00: daily. of 40 MG 00 Medicin tablet e pantoprazol 2016-04 2020- No 40mg Take 1 Tab [facility] e 1-11 05-01 by mouth [place] (PROTONIX) 00:00: 00:00 daily. of 40 MG 00 :00 Medicin tablet e gabapentin 2015-0 Yes 100mg Take 1 Cap [facility] (NEURONTIN) 1-20 by mouth 2 it y of 100 mg 00:00: (two) [place] capsule 00 times Medical daily. Branch gabapentin 2016-0 Yes 100mg Take 1 Cap [facility] (NEURONTIN) 1-20 by mouth 2 it y of 100 mg 00:00: (two) [place] capsule 00 times Medical daily. Branch gabapentin 2015-0 Yes 100mg Take 1 Cap [facility] (NEURONTIN) 1-20 by mouth 2 it y of 100 mg 00:00: (two) [place] capsule 00 times Medical daily. Branch gabapentin 2016-0 Yes 100mg Take 1 Cap [facility] (NEURONTIN) 1-20 by mouth 2 it y of 100 mg 00:00: (two) [place] capsule 00 times Medical daily. Branch gabapentin 2016-0 Yes 100mg Take 1 Cap [facility] (NEURONTIN) 1-20 by mouth 2 it y of 100 mg 00:00: (two) [place] capsule 00 times Medical daily. Branch gabapentin 2016-0 Yes 100mg Take 1 Cap [facility] (NEURONTIN) 1-20 by mouth 2 it y of 100 mg 00:00: (two) [place] capsule 00 times Medical daily. Branch gabapentin 2016-0 Yes 100mg Take 1 Cap [facility] (NEURONTIN) 1-20 by mouth 2 it y of 100 mg 00:00: (two) [place] capsule 00 times Medical daily. Branch gabapentin 2016-0 Yes 100mg Take 1 Cap [facility] (NEURONTIN) 1-20 by mouth 2 it y of 100 mg 00:00: (two) [place] capsule 00 times Medical daily. Branch gabapentin 2015-0 Yes 100mg Take 1 Cap [facility] (NEURONTIN) 1-20 by mouth 2 it y of 100 mg 00:00: (two) [place] capsule 00 times Medical daily. Branch gabapentin 2016-0 Yes 100mg Take 1 Cap [facility] (NEURONTIN) 1-20 by mouth 2 it y of 100 mg 00:00: (two) [place] capsule 00 times Medical daily. [place] PREMARIN 2014-04 Yes Univers 1.25 mg 0-27 ity of tablet 00:00: [place] [facility] PREMARIN 2014-04 Yes Univers 1.25 mg 0-27 ity of tablet 00:00: [facility] PREMARIN 2014-04 Yes Univers 1.25 mg 0-27 ity of tablet 00:00: [place] [facility] PREMARIN 2014-04 Yes Univers 1.25 mg 0-27 ity of tablet 00:00: [place] [facility] PREMARIN 2014-04 Yes Univers 1.25 mg 0-27 ity of tablet 00:00: [facility] PREMARIN 2014-04 Yes Univers 1.25 mg 0-27 ity of tablet 00:00: [facility] PREMARIN 2014-04 Yes Univers 1.25 mg 0-27 ity of tablet 00:00: [facility] PREMARIN 2014-04 Yes Univers 1.25 mg 0-27 ity of tablet 00:00: [place] 00 [facility] PREMARIN 2014-04 Yes Univers 1.25 mg 0-27 ity of tablet 00:00: [place] 00 [facility] PREMARIN 2014-04 Yes Univers 1.25 mg 0-27 ity of tablet 00:00: [place] 00 [facility] SPIRIVA 2014-04 Yes Univers WITH 0-21 ity of HANDIHALER 00:00: [place] 18 mcg 00 Medical inhalation Branch device SPIRIVA 2014-04 Yes Univers WITH 0-21 ity of HANDIHALER 00:00: [place] 18 mcg 00 Medical inhalation Branch device SPIRIVA 2014-04 Yes Univers WITH 0-21 ity of HANDIHALER 00:00: [place] 18 mcg 00 Medical inhalation Branch device SPIRIVA 2014-04 Yes Univers WITH 0-21 ity of HANDIHALER 00:00: [place] 18 mcg 00 Medical inhalation Branch device SPIRIVA 2014-04 Yes Univers WITH 0-21 ity of HANDIHALER 00:00: [place] 18 mcg 00 Medical inhalation Branch device SPIRIVA 2014-04 Yes Univers WITH 0-21 ity of HANDIHALER 00:00: [place] 18 mcg 00 Medical inhalation Branch device SPIRIVA 2014-04 Yes Univers WITH 0-21 ity of HANDIHALER 00:00: [place] 18 mcg 00 Medical inhalation Branch device SPIRIVA 2014-04 Yes Univers WITH 0-21 ity of HANDIHALER 00:00: [place] 18 mcg 00 Medical inhalation Branch device SPIRIVA 2014-04 Yes Univers WITH 0-21 ity of HANDIHALER 00:00: [place] 18 mcg 00 Medical inhalation Branch device SPIRIVA 2014-04 Yes Univers WITH 0-21 ity of HANDIHALER 00:00: [place] 18 mcg 00 Medical inhalation Branch device clopidogrel 2014-04 Yes Univer s (PLAVIX) 75 0-12 ity of mg tablet 00:00: [place] 00 Medical [facility] carvedilol 2014-04 Yes Univers (COREG) 25 0-12 ity of mg tablet 00:00: [place] [facility] clopidogrel 2014-04 Yes Univer s (PLAVIX) 75 0-12 ity of mg tablet 00:00: Medical Branch carvedilol 2014-04 Yes [facility] (COREG) 25 0-12 ity of mg tablet 00:00: [place] [facility] clopidogrel 2014-04 Yes Univer s (PLAVIX) 75 0-12 ity of mg tablet 00:00: Medical Branch carvedilol 2014-04 Yes Univers (COREG) 25 0-12 ity of mg tablet 00:00: [place] 00 [facility] clopidogrel 2014-04 Yes Univer s (PLAVIX) 75 0-12 ity of mg tablet 00:00: [place] [facility] carvedilol 2014-04 Yes Univers (COREG) 25 0-12 ity of mg tablet 00:00: [place] [facility] clopidogrel 2014-04 Yes Univer s (PLAVIX) 75 0-12 ity of mg tablet 00:00: [place] [facility] carvedilol 2014-04 Yes Univers (COREG) 25 0-12 ity of mg tablet 00:00: [place] [facility] clopidogrel 2014-04 Yes Univer s (PLAVIX) 75 0-12 ity of mg tablet 00:00: [place] [facility] carvedilol 2014-04 Yes Univers (COREG) 25 0-12 ity of mg tablet 00:00: [place] [facility] clopidogrel 2014-04 Yes Univer s (PLAVIX) 75 0-12 ity of mg tablet 00:00: [place] [facility] carvedilol 2014-04 Yes Univers (COREG) 25 0-12 ity of mg tablet 00:00: [place] 00 [facility] clopidogrel 2014-04 Yes Univer s (PLAVIX) 75 0-12 ity of mg tablet 00:00: [place] [facility] carvedilol 2014-04 Yes Univers (COREG) 25 0-12 ity of mg tablet 00:00: [place] [facility] clopidogrel 2014-04 Yes Univer s (PLAVIX) 75 0-12 ity of mg tablet 00:00: [place] [facility] carvedilol 2014-04 Yes Univers (COREG) 25 0-12 ity of mg tablet 00:00: [place] 00 Medical [facility] clopidogrel 2014-04 Yes Univer s (PLAVIX) 75 0-12 ity of mg tablet 00:00: [place] [facility] carvedilol 2014-04 Yes [facility] (COREG) 25 0-12 ity of mg tablet 00:00: [place] 00 [facility] PROAIR HFA 2014-04 Yes Univers 90 0-01 ity of mcg/actuati 00:00: [place] on inhaler Medical Branch PROAIR HFA 2014-04 Yes Univers 90 0-01 ity of mcg/actuati 00:00: [place] on inhaler Medical Branch PROAIR HFA 2014-04 Yes Univers 90 0-01 ity of mcg/actuati 00:00: [place] on inhaler 00 Medical Branch PROAIR HFA 2014-04 Yes Univers 90 0-01 ity of mcg/actuati 00:00: [place] on inhaler Medical Branch PROAIR HFA 2014-04 Yes Univers 90 0-01 ity of mcg/actuati 00:00: [place] on inhaler Medical Branch PROAIR HFA 2014-04 Yes Univers 90 0-01 ity of mcg/actuati 00:00: [place] on inhaler Medical Branch PROAIR HFA 2014-04 Yes Univers 90 0-01 ity of mcg/actuati 00:00: [place] on inhaler Medical Branch PROAIR HFA 2014-04 Yes Univers 90 0-01 ity of mcg/actuati 00:00: [place] on inhaler Medical Branch PROAIR HFA 2014-04 Yes Univers 90 0-01 ity of mcg/actuati 00:00: [place] on inhaler Medical Branch PROAIR HFA 2014-04 Yes Univers 90 0-01 ity of mcg/actuati 00:00: [place] on inhaler Medical Branch lovastatin Yes Univers (MEVACOR) 12-03 ity of 40 mg 00:00: [place] tablet Medical Branch lovastatin 0 Yes Univers (MEVACOR) 12-03 ity of 40 mg 00:00: [place] tablet [facility] Branch lovastatin Yes Univers (MEVACOR) 12-03 ity of 40 mg 00:00: [place] tablet Medical Branch lovastatin 0 Yes Univers (MEVACOR) 12-03 ity of 40 mg 00:00: [place] tablet Medical Branch lovastatin 0 Yes Univers (MEVACOR) 12-03 ity of 40 mg 00:00: [place] tablet Medical Branch lovastatin 0 Yes Univers (MEVACOR) 12-03 ity of 40 mg 00:00: [place] tablet Medical Branch lovastatin 0 Yes Univers (MEVACOR) 12-03 ity of 40 mg 00:00: [place] tablet Medical Branch lovastatin 0 Yes Univers (MEVACOR) 12-03 ity of 40 mg 00:00: [place] tablet Medical Branch lovastatin 0 Yes Univers (MEVACOR) 12-03 ity of 40 mg 00:00: [place] tablet 00 Medical Branch lovastatin 2015-0 Yes [facility] (MEVACOR) 9-02 ity of 40 mg 00:00: [place] tablet 00 Medical Branch Immunizations Ordered Immunization Filled Immunization Date Status Commen ts Source Name Name Pneumococcal 2021-05-26 Completed [facility] Polysaccharide 00:00:00 of Medicin e Pneumococcal 2021-05-26 Completed [facility] Polysaccharide 00:00:00 of Medicin e Pneumococcal 2021-05-26 Completed [facility] Polysaccharide 00:00:00 of Medicin e Pneumococcal 2021-05-26 Completed [facility] Polysaccharide 00:00:00 of Medicin e Pneumococcal 2021-05-26 Completed [facility] Polysaccharide 00:00:00 of Medicin e Pneumococcal 2021-05-26 Completed [facility] Polysaccharide 00:00:00 of Medicin e Pneumococcal 2021-05-26 Completed [facility] Polysaccharide 00:00:00 of Medicin e Pneumococcal 2021-05-26 Completed [facility] Polysaccharide 00:00:00 of Medicin e Pneumococcal 2021-05-26 Completed [facility] Polysaccharide 00:00:00 of Medicin e Pneumococcal 2021-05-26 Completed [facility] Polysaccharide 00:00:00 of Medicin e Pneumococcal 2021-05-26 Completed [facility] Polysaccharide 00:00:00 of Medicin e Pneumococcal 2021-05-26 Completed [facility] Polysaccharide 00:00:00 of Medicin e Pneumococcal 2021-05-26 Completed [facility] Polysaccharide 00:00:00 of Medicin e Pneumococcal 2021-05-26 Completed [facility] ge Polysaccharide 00:00:00 of Medicin e Pneumococcal 2021-05-26 Completed [facility] Polysaccharide 00:00:00 of Medicin e Pneumococcal 2021-05-26 Completed [facility] Polysaccharide 00:00:00 of Medicin e Pneumococcal 2021-05-26 Completed [facility] Polysaccharide 00:00:00 of Medicin e Pneumococcal 2021-05-26 Completed [facility] Colle ge Polysaccharide 00:00:00 of Medicin e Pneumococcal 2021-05-26 Completed [facility] Col[facility] ge Polysaccharide 00:00:00 of Medicin e Pneumococcal 2021-05-26 Completed [facility] Col[facility] ge Polysaccharide 00:00:00 of Medicin e Pneumococcal 2021-05-26 Completed [facility] Polysaccharide 00:00:00 of Medicin e Pneumococcal 2021-05-26 Completed [facility] ge Polysaccharide 00:00:00 of Medicin e Pneumococcal 2021-05-26 Completed [facility] ge Polysaccharide 00:00:00 of Medicin e Influenza Quad-PF 2021-03-15 Completed [facility] 00:00:00 of Medicine Influenza Quad-PF 2021-03-15 Completed [facility] 00:00:00 of Medicine Influenza Quad-PF 2021-03-15 Completed [facility] 00:00:00 of Medicine Influenza Quad-PF 2021-03-15 Completed [facility] 00:00:00 of Medicine Influenza Quad-PF 2021-03-15 Completed [facility] 00:00:00 of Medicine Influenza Quad-PF 2021-03-15 Completed [facility] 00:00:00 of Medicine Influenza Quad-PF 2021-03-15 Completed [facility] 00:00:00 of Medicine Influenza Quad-PF 2021-03-15 Completed [facility] 00:00:00 of Medicine Influenza Quad-PF 2021-03-15 Completed [facility] 00:00:00 of Medicine Influenza Quad-PF 2021-03-15 Completed [facility] 00:00:00 of Medicine Influenza Quad-PF 2021-03-15 Completed [facility] 00:00:00 of Medicine Influenza Quad-PF 2021-03-15 Completed [facility] 00:00:00 of Medicine Influenza Quad-PF 2021-03-15 Completed [facility] 00:00:00 of Medicine Influenza Quad-PF 2021-03-15 Completed [facility] 00:00:00 of Medicine Influenza Quad-PF 2021-03-15 Completed [facility] 00:00:00 of Medicine Influenza Quad-PF 2021-03-15 Completed [facility] 00:00:00 of Medicine Influenza Quad-PF 2021-03-15 Completed [facility] 00:00:00 of Medicine Influenza Quad-PF 2021-03-15 Completed [facility] 00:00:00 of Medicine Influenza Quad-PF 2021-03-15 Completed [facility] 00:00:00 of Medicine Influenza Quad-PF 2021-03-15 Completed [facility] 00:00:00 of Medicine Influenza Quad-PF 2021-03-15 Completed [facility] 00:00:00 of Medicine Influenza Quad-PF 2021-03-15 Completed [employer] 00:00:00 of Medicine Influenza Quad-PF 2021-03-15 Completed [employer] 00:00:00 of Medicine Influenza Quad-PF 2021-03-15 Completed [facility] 00:00:00 of Medicine Influenza Quad-PF 2021-03-15 Completed [employer] 00:00:00 of Medicine Influenza Quad-PF 2021-03-15 Completed [employer] 00:00:00 of Medicine Influenza Quad-PF 2021-03-15 Completed [facility] 00:00:00 of Medicine Influenza Quad-PF 2021-03-15 Completed [facility] 00:00:00 of Medicine Influenza Quad-PF 2021-03-15 Completed [employer] 00:00:00 of Medicine Influenza Quad-PF 2021-03-15 Completed [facility] 00:00:00 of Medicine Influenza Quad-PF 2021-03-15 Completed [facility] 00:00:00 of Medicine Pfizer SARS-CoV-2 2020-05-05 Completed [facility] 00:00:00 of Medicine Pfizer SARS-CoV-2 2020-05-05 Completed [facility] 00:00:00 of Medicine Pfizer SARS-CoV-2 2020-05-05 Completed [facility] 00:00:00 of Medicine Pfizer SARS-CoV-2 2020-05-05 Completed [facility] 00:00:00 of Medicine Pfizer SARS-CoV-2 2020-05-05 Completed [facility] 00:00:00 of Medicine Pfizer SARS-CoV-2 2020-05-05 Completed [facility] 00:00:00 of Medicine Pfizer SARS-CoV-2 2020-05-05 Completed [facility] 00:00:00 of Medicine Pfizer SARS-CoV-2 2020-05-05 Completed [facility] 00:00:00 of Medicine Pfizer SARS-CoV-2 2020-05-05 Completed [facility] 00:00:00 of Medicine Pfizer SARS-CoV-2 2020-05-05 Completed [facility] 00:00:00 of Medicine Pfizer SARS-CoV-2 2020-05-05 Completed [facility] 00:00:00 of Medicine Pfizer SARS-CoV-2 2020-05-05 Completed [facility] 00:00:00 of Medicine Pfizer SARS-CoV-2 2020-05-05 Completed [facility] 00:00:00 of Medicine Pfizer SARS-CoV-2 2020-05-05 Completed [facility] 00:00:00 of Medicine Pfizer SARS-CoV-2 2020-05-05 Completed [facility] 00:00:00 of Medicine Pfizer SARS-CoV-2 2020-05-05 Completed [facility] 00:00:00 of Medicine Pfizer SARS-CoV-2 2020-05-05 Completed [facility] 00:00:00 of Medicine Pfizer SARS-CoV-2 2020-05-05 Completed [employer] [facility] 00:00:00 of Medicine Pfizer SARS-CoV-2 2020-05-05 Completed [facility] 00:00:00 of Medicine Pfizer SARS-CoV-2 2020-05-05 Completed [facility] 00:00:00 of Medicine Pfizer SARS-CoV-2 2020-05-05 Completed [facility] 00:00:00 of Medicine Pfizer SARS-CoV-2 2020-05-05 Completed [employer] [facility] 00:00:00 of Medicine Pfizer SARS-CoV-2 2020-05-05 Completed [employer] [facility] 00:00:00 of Medicine Pfizer SARS-CoV-2 2020-05-05 Completed [employer] [facility] 00:00:00 of Medicine Pfizer SARS-CoV-2 2020-05-05 Completed [facility] 00:00:00 of Medicine Pfizer SARS-CoV-2 2020-05-05 Completed [employer] [facility] 00:00:00 of Medicine Pfizer SARS-CoV-2 2020-05-05 Completed [employer] [facility] 00:00:00 of Medicine Pfizer SARS-CoV-2 2020-05-05 Completed [employer] [facility] 00:00:00 of Medicine Pfizer SARS-CoV-2 2020-05-05 Completed [facility] 00:00:00 of Medicine Pfizer SARS-CoV-2 2020-05-05 Completed [facility] 00:00:00 of Medicine Pfizer SARS-CoV-2 2020-05-05 Completed [facility] 00:00:00 of Medicine Pfizer SARS-CoV-2 2020-05-05 Completed [employer] [facility] 00:00:00 of Medicine Pfizer SARS-CoV-2 2020-04-21 Completed [facility] 00:00:00 of Medicine Pfizer SARS-CoV-2 2020-04-21 Completed [facility] 00:00:00 of Medicine Pfizer SARS-CoV-2 2020-04-21 Completed [employer] [facility] 00:00:00 of Medicine Pfizer SARS-CoV-2 2020-04-21 Completed [employer] [facility] 00:00:00 of Medicine Pfizer SARS-CoV-2 2020-04-21 Completed [facility] 00:00:00 of Medicine Pfizer SARS-CoV-2 2020-04-21 Completed [facility] 00:00:00 of Medicine Pfizer SARS-CoV-2 2020-04-21 Completed [facility] 00:00:00 of Medicine Pfizer SARS-CoV-2 2020-04-21 Completed [employer] [facility] 00:00:00 of Medicine Pfizer SARS-CoV-2 2020-04-21 Completed [employer] [facility] 00:00:00 of Medicine Pfizer SARS-CoV-2 2020-04-21 Completed [facility] 00:00:00 of Medicine Pfizer SARS-CoV-2 2020-04-21 Completed [employer] [facility] 00:00:00 of Medicine Pfizer SARS-CoV-2 2020-04-21 Completed [facility] 00:00:00 of Medicine Pfizer SARS-CoV-2 2020-04-21 Completed [employer] [facility] 00:00:00 of Medicine Pfizer SARS-CoV-2 2020-04-21 Completed [facility] 00:00:00 of Medicine Pfizer SARS-CoV-2 2020-04-21 Completed [employer] [facility] 00:00:00 of Medicine Pfizer SARS-CoV-2 2020-04-21 Completed [facility] 00:00:00 of Medicine Pfizer SARS-CoV-2 2020-04-21 Completed [employer] [facility] 00:00:00 of Medicine Pfizer SARS-CoV-2 2020-04-21 Completed [employer] [facility] 00:00:00 of Medicine Pfizer SARS-CoV-2 2020-04-21 Completed [facility] 00:00:00 of Medicine Pfizer SARS-CoV-2 2020-04-21 Completed [facility] 00:00:00 of Medicine Pfizer SARS-CoV-2 2020-04-21 Completed [facility] 00:00:00 of Medicine Pfizer SARS-CoV-2 2020-04-21 Completed [employer] [facility] 00:00:00 of Medicine Pfizer SARS-CoV-2 2020-04-21 Completed [facility] 00:00:00 of Medicine Pfizer SARS-CoV-2 2020-04-21 Completed [facility] 00:00:00 of Medicine Pfizer SARS-CoV-2 2020-04-21 Completed [facility] 00:00:00 of Medicine Pfizer SARS-CoV-2 2020-04-21 Completed [facility] 00:00:00 of Medicine Pfizer SARS-CoV-2 2020-04-21 Completed [facility] 00:00:00 of Medicine Pfizer SARS-CoV-2 2020-04-21 Completed [facility] 00:00:00 of Medicine Pfizer SARS-CoV-2 2020-04-21 Completed [facility] 00:00:00 of Medicine Pfizer SARS-CoV-2 2020-04-21 Completed [facility] 00:00:00 of Medicine Pfizer SARS-CoV-2 2020-04-21 Completed [facility] 00:00:00 of Medicine Pfizer SARS-CoV-2 2020-04-21 Completed [facility] 00:00:00 of Medicine Vital Signs Vital Name Observation Time Observation Value Comments Source HEIGHT 2020-12-29 167.6 cm 19:45:00 WEIGHT 2020-12-29 58.968 kg 19:45:00 Systolic blood 2022-01-11 152 [facility] Diastolic blood 2022-01-11 111 mm[Hg] [facility] pressure 15:04:00 of Medicine Heart rate 2022-01-11 85 /min [facility] 15:01:00 of Medicine Body height 2022-01-11 167.6 cm [facility] 15:01:00 of Medicine Oxygen saturation 2022-01-11 95 /min [facility] in Arterial blood 15:01:00 of Medicin e by Pulse oximetry Systolic blood 2021-12-24 167 mm[facility] Diastolic blood 2021-12-24 112 mm[Hg] [facility] pressure 15:19:00 of Medicine Heart rate 2021-12-24 81 /min [facility] 15:19:00 of Medicine Body temperature 2021-12-24 36.67 Amber [facility] 15:19:00 of Medicine Body height 2021-12-24 167.6 cm [facility] 15:19:00 of Medicine Body weight 2021-12-24 59.421 kg [facility] 15:19:00 of Medicine BMI 2021-12-24 21.14 kg/m2 [facility] 15:19:00 of Medicine HEIGHT 2021-11-30 167.6 cm 07:53:00 WEIGHT 2021-11-30 60.782 kg 07:53:00 HEIGHT 2021-11-30 167.6 cm 07:53:00 WEIGHT 2021-11-30 60.782 kg 07:53:00 Systolic blood 2021-11-26 180 mm[Hg] [facility] pressure 13:31:00 of Medicine Diastolic blood 2021-11-26 110 mm[Hg] [employer] pressure 13:31:00 of Medicine Heart rate 2021-11-26 90 /min [facility] 13:31:00 of Medicine Body temperature 2021-11-26 36.56 Amber [facility] 13:31:00 of Medicine Body height 2021-11-26 167.6 cm [facility] 13:31:00 of Medicine Body weight 2021-11-26 61.145 kg [facility] 13:31:00 of Medicine BMI 2021-11-26 21.76 kg/m2 [facility] 13:31:00 of Medicine Systolic blood 2021-11-24 196 mm[Hg] [employer] [facility] pressure 16:03:00 of Medicine Diastolic blood 2021-11-24 113 mm[Hg] [employer] pressure 16:03:00 of Medicine Heart rate 2021-11-24 77 /min [facility] 16:03:00 of Medicine Respiratory rate 2021-11-24 16 /min [facility] [employer] 16:03:00 of Medicine Body height 2021-11-24 167.6 cm [facility] 16:03:00 of Medicine Body weight 2021-11-24 61.417 kg [facility] 16:03:00 of Medicine BMI 2021-11-24 21.85 kg/m2 [facility] 16:03:00 of Medicine Systolic blood 2021-11-24 180 mm[Hg] [facility] pressure 17:47:00 of Medicine Diastolic blood 2021-11-24 123 mm[Hg] [facility] pressure 17:47:00 of Medicine Heart rate 2021-11-24 85 /min [facility] 17:47:00 of Medicine Body temperature 2021-11-24 36.44 Amber [facility] [employer] 17:47:00 of Medicine Body height 2021-11-24 167.6 cm [facility] 17:47:00 of Medicine Body weight 2021-11-24 60.873 kg [facility] 17:47:00 of Medicine BMI 2021-11-24 21.66 kg/m2 [facility] 17:47:00 of Medicine Systolic blood 2021-10-29 169 mm[Hg] [facility] pressure 14:53:00 of Medicine Diastolic blood 2021-10-29 102 mm[Hg] [employer] pressure 14:53:00 of Medicine Heart rate 2021-10-29 85 /min [facility] 14:53:00 of Medicine Body temperature 2021-10-29 36.39 Amber [facility] [employer] 14:53:00 of Medicine Body height 2021-10-29 167.6 cm [facility] 14:53:00 of Medicine Body weight 2021-10-29 60.963 kg [facility] 14:53:00 of Medicine BMI 2021-10-29 21.69 kg/m2 [facility] 14:53:00 of Medicine Systolic blood 2021-10-29 169 mm[Hg] [facility] pressure 14:49:00 of Medicine Diastolic blood 2021-10-29 102 mm[Hg] [employer] pressure 14:49:00 of Medicine Heart rate 2021-10-29 85 /min [facility] 14:49:00 of Medicine Body temperature 2021-10-29 36.39 Amber [facility] 14:49:00 of Medicine Body height 2021-10-29 167.6 cm [facility] 14:49:00 of Medicine Body weight 2021-10-29 60.963 kg [facility] 14:49:00 of Medicine BMI 2021-10-29 21.69 kg/m2 [facility] 14:49:00 of Medicine Systolic blood 2021-10-11 159 mm[Hg] [employer] [facility] pressure 14:51:00 of Medicine Diastolic blood 2021-10-11 103 mm[Hg] [facility] pressure 14:51:00 of Medicine Heart rate 2021-10-11 77 /min [facility] 14:51:00 of Medicine Body height 2021-10-11 167.6 cm [facility] 14:51:00 of Medicine Body weight 2021-10-11 60.782 kg [facility] 14:51:00 of Medicine BMI 2021-10-11 21.63 kg/m2 [facility] 14:51:00 of Medicine Oxygen saturation 2021-10-11 99 /min [facility] in Arterial blood 14:51:00 of Medicin e by Pulse oximetry Systolic blood 2021-09-24 145 mm[Hg] [facility] pressure 13:08:00 of Medicine Diastolic blood 2021-09-24 91 mm[Hg] [facility] pressure 13:08:00 of Medicine Heart rate 2021-09-24 69 /min [facility] 13:08:00 of Medicine Body temperature 2021-09-24 36.22 Amber [facility] 13:08:00 of Medicine Respiratory rate 2021-09-24 18 /min [facility] 13:08:00 of Medicine Body height 2021-09-24 167.6 cm [facility] 13:08:00 of Medicine Body weight 2021-09-24 62.687 kg [facility] 13:08:00 of Medicine BMI 2021-09-24 22.31 kg/m2 [facility] 13:08:00 of Medicine Systolic blood 2021-09-24 145 mm[Hg] [facility] pressure 13:05:00 of Medicine Diastolic blood 2021-09-24 91 mm[Hg] [facility] pressure 13:05:00 of Medicine Heart rate 2021-09-24 69 /min [facility] 13:05:00 of Medicine Body temperature 2021-09-24 36.22 Amber [facility] [employer] 13:05:00 of Medicine Respiratory rate 2021-09-24 18 /min [facility] 13:05:00 of Medicine Body height 2021-09-24 167.6 cm [facility] 13:05:00 of Medicine Body weight 2021-09-24 62.687 kg [facility] 13:05:00 of Medicine BMI 2021-09-24 22.31 kg/m2 [facility] 13:05:00 of Medicine Systolic blood 2021-09-03 134 mm[Hg] [facility] pressure 14:20:00 of Medicine Diastolic blood 2021-09-03 84 mm[Hg] [employer] pressure 14:20:00 of Medicine Heart rate 2021-09-03 71 /min [facility] 14:20:00 of Medicine Body temperature 2021-09-03 36.67 Amber [facility] [employer] 14:20:00 of Medicine Body height 2021-09-03 167.6 cm [facility] 14:20:00 of Medicine Body weight 2021-09-03 62.324 kg [facility] 14:20:00 of Medicine BMI 2021-09-03 22.18 kg/m2 [facility] 14:20:00 of Medicine Systolic blood 2021-08-13 142 mm[Hg] [facility] pressure 13:22:00 of Medicine Diastolic blood 2021-08-13 88 mm[Hg] [employer] pressure 13:22:00 of Medicine Heart rate 2021-08-13 81 /min [facility] 13:22:00 of Medicine Body temperature 2021-08-13 36.67 Amber [facility] [employer] 13:22:00 of Medicine Body height 2021-08-13 167.6 cm [facility] 13:22:00 of Medicine Body weight 2021-08-13 62.959 kg [facility] 13:22:00 of Medicine BMI 2021-08-13 22.40 kg/m2 [facility] 13:22:00 of Medicine Systolic blood 2021-08-13 142 mm[Hg] [employer] [facility] pressure 13:20:00 of Medicine Diastolic blood 2021-08-13 88 mm[Hg] [facility] pressure 13:20:00 of Medicine Heart rate 2021-08-13 81 /min [facility] 13:20:00 of Medicine Body temperature 2021-08-13 36.67 Ambre [facility] [employer] 13:20:00 of Medicine Body height 2021-08-13 167.6 cm [facility] 13:20:00 of Medicine Body weight 2021-08-13 62.959 kg [facility] 13:20:00 of Medicine BMI 2021-08-13 22.40 kg/m2 [facility] 13:20:00 of Medicine Systolic blood 2021-08-06 115 mm[Hg] [facility] pressure 14:44:00 of Medicine Diastolic blood 2021-08-06 78 mm[Hg] [facility] pressure 14:44:00 of Medicine Heart rate 2021-08-06 68 /min [facility] 14:44:00 of Medicine Body height 2021-08-06 167.6 cm [facility] 14:44:00 of Medicine Body weight 2021-08-06 61.689 kg [facility] 14:44:00 of Medicine BMI 2021-08-06 21.95 kg/m2 [facility] 14:44:00 of Medicine Systolic blood 2021-08-06 130 mm[Hg] [facility] pressure 13:52:00 of Medicine Diastolic blood 2021-08-06 85 mm[Hg] [facility] pressure 13:52:00 of Medicine Heart rate 2021-08-06 79 /min [facility] 13:52:00 of Medicine Respiratory rate 2021-08-06 16 /min [facility] 13:52:00 of Medicine Body height 2021-08-06 167.6 cm [facility] 13:52:00 of Medicine Body weight 2021-08-06 61.689 kg [facility] 13:52:00 of Medicine BMI 2021-08-06 21.95 kg/m2 [facility] 13:52:00 of Medicine Oxygen saturation 2021-08-06 100 /min [facility] in Arterial blood 13:52:00 of Medicin e by Pulse oximetry Systolic blood 2021-07-23 151 mm[Hg] [facility] pressure 14:39:00 of Medicine Diastolic blood 2021-07-23 94 mm[Hg] [facility] pressure 14:39:00 of Medicine Heart rate 2021-07-23 95 /min [facility] 14:39:00 of Medicine Body temperature 2021-07-23 36.44 Amber [facility] 14:39:00 of Medicine Body height 2021-07-23 167.6 cm [facility] 14:39:00 of Medicine Body weight 2021-07-23 61.871 kg [facility] 14:39:00 of Medicine BMI 2021-07-23 22.02 kg/m2 [facility] 14:39:00 of Medicine Systolic blood 2021-07-23 151 mm[Hg] [facility] pressure 14:10:00 of Medicine Diastolic blood 2021-07-23 94 mm[Hg] [facility] pressure 14:10:00 of Medicine Heart rate 2021-07-23 95 /min [facility] 14:10:00 of Medicine Body temperature 2021-07-23 36.44 Amber [facility] 14:10:00 of Medicine Body height 2021-07-23 167.6 cm [facility] 14:10:00 of Medicine Body weight 2021-07-23 61.689 kg [facility] 14:10:00 of Medicine BMI 2021-07-23 21.95 kg/m2 [facility] 14:10:00 of Medicine Systolic blood 2021-07-14 145 mm[Hg] [facility] pressure 14:00:00 of Medicine Diastolic blood 2021-07-14 103 mm[Hg] [facility] pressure 14:00:00 of Medicine Heart rate 2021-07-14 84 /min [facility] 14:00:00 of Medicine Body height 2021-07-14 167.6 cm [facility] 14:00:00 of Medicine Body weight 2021-07-14 61.689 kg [facility] 14:00:00 of Medicine BMI 2021-07-14 21.95 kg/m2 [facility] 14:00:00 of Medicine HEIGHT 2021-07-05 167.6 cm 20:35:00 WEIGHT 2021-07-05 58.968 kg 20:35:00 HEIGHT 2021-07-05 167.6 cm 20:35:00 WEIGHT 2021-07-05 58.968 kg 20:35:00 Systolic blood 2021-07-02 151 mm[Hg] [employer] [facility] pressure 14:01:00 of Medicine Diastolic blood 2021-07-02 99 mm[Hg] [employer] [facility] 14:01:00 of Medicine Heart rate 2021-07-02 79 /min [facility] 14:01:00 of Medicine Body temperature 2021-07-02 36.67 Amber [facility] 14:01:00 of Medicine Body height 2021-07-02 167.6 cm [facility] 14:01:00 of Medicine Body weight 2021-07-02 61.689 kg [facility] 14:01:00 of Medicine BMI 2021-07-02 21.95 kg/m2 [facility] 14:01:00 of Medicine Systolic blood 2021-06-11 149 mm[Hg] [facility] pressure 14:32:00 of Medicine Diastolic blood 2021-06-11 97 mm[Hg] [facility] pressure 14:32:00 of Medicine Heart rate 2021-06-11 84 /min [facility] 14:32:00 of Medicine Body temperature 2021-06-11 36.72 Amber [facility] 14:32:00 of Medicine Body height 2021-06-11 167.6 cm [facility] 14:32:00 of Medicine Body weight 2021-06-11 60.5 kg [facility] 14:32:00 of Medicine BMI 2021-06-11 21.53 kg/m2 [facility] 14:32:00 of Medicine Systolic blood 2021-06-11 149 mm[Hg] [facility] pressure 14:15:00 of Medicine Diastolic blood 2021-06-11 97 mm[Hg] [facility] pressure 14:15:00 of Medicine Heart rate 2021-06-11 84 /min [facility] 14:15:00 of Medicine Body temperature 2021-06-11 36.72 Amber [facility] 14:15:00 of Medicine Body height 2021-06-11 167.6 cm [facility] 14:15:00 of Medicine Body weight 2021-06-11 60.51 kg [facility] 14:15:00 of Medicine BMI 2021-06-11 21.53 kg/m2 [facility] 14:15:00 of Medicine Systolic blood 2021-05-26 143 mm[Hg] [facility] pressure 16:15:00 of Medicine Diastolic blood 2021-05-26 91 mm[Hg] [employer] pressure 16:15:00 of Medicine Heart rate 2021-05-26 77 /min [facility] 16:15:00 of Medicine Body temperature 2021-05-26 36.39 Amber [facility] 16:15:00 of Medicine Body height 2021-05-26 167.6 cm [facility] 16:15:00 of Medicine Body weight 2021-05-26 61.236 kg [facility] 16:15:00 of Medicine BMI 2021-05-26 21.79 kg/m2 [facility] 16:15:00 of Medicine Systolic blood 2021-05-25 118 mm[Hg] [employer] [facility] pressure 17:10:00 of Medicine Diastolic blood 2021-05-25 80 mm[Hg] [employer] pressure 17:10:00 of Medicine Heart rate 2021-05-25 75 /min [facility] 17:10:00 of Medicine Respiratory rate 2021-05-25 16 /min [facility] [employer] 17:10:00 of Medicine Body height 2021-05-25 167.6 cm [facility] 17:10:00 of Medicine Body weight 2021-05-25 60.691 kg [facility] 17:10:00 of Medicine BMI 2021-05-25 21.60 kg/m2 [facility] 17:10:00 of Medicine Systolic blood 2021-05-21 136 mm[Hg] [employer] [facility] pressure 14:15:00 of Medicine Diastolic blood 2021-05-21 89 mm[Hg] [employer] [facility] 14:15:00 of Medicine Heart rate 2021-05-21 78 /min [facility] 14:15:00 of Medicine Body temperature 2021-05-21 36.56 Amber [facility] [employer] 14:15:00 of Medicine Body height 2021-05-21 167.6 cm [facility] 14:15:00 of Medicine Body weight 2021-05-21 60.782 kg [facility] 14:15:00 of Medicine BMI 2021-05-21 21.63 kg/m2 [facility] 14:15:00 of Medicine Systolic blood 2021-04-30 188 mm[Hg] [employer] [facility] pressure 14:21:00 of Medicine Diastolic blood 2021-04-30 119 mm[Hg] [employer] [facility] 14:21:00 of Medicine Heart rate 2021-04-30 82 /min [facility] 14:21:00 of Medicine Body temperature 2021-04-30 36.67 Amber [facility] [employer] 14:21:00 of Medicine Body height 2021-04-30 167.6 cm [facility] 14:21:00 of Medicine Body weight 2021-04-30 60.691 kg [facility] 14:21:00 of Medicine BMI 2021-04-30 21.60 kg/m2 [facility] 14:21:00 of Medicine Systolic blood 2021-04-30 188 mm[Hg] [facility] pressure 14:14:00 of Medicine Diastolic blood 2021-04-30 119 mm[Hg] [facility] pressure 14:14:00 of Medicine Heart rate 2021-04-30 82 /min [facility] 14:14:00 of Medicine Body temperature 2021-04-30 36.67 Amber [facility] 14:14:00 of Medicine Body height 2021-04-30 167.6 cm [facility] 14:14:00 of Medicine Body weight 2021-04-30 60.691 kg [facility] 14:14:00 of Medicine BMI 2021-04-30 21.60 kg/m2 [facility] 14:14:00 of Medicine Systolic blood 2021-04-20 182 mm[Hg] [employer] [facility] pressure 13:54:00 of Medicine Diastolic blood 2021-04-20 104 mm[Hg] [facility] pressure 13:54:00 of Medicine Heart rate 2021-04-20 78 /min [facility] 13:54:00 of Medicine Respiratory rate 2021-04-20 16 /min [facility] 13:54:00 of Medicine Body height 2021-04-20 167.6 cm [facility] 13:54:00 of Medicine Body weight 2021-04-20 61.236 kg [facility] 13:54:00 of Medicine BMI 2021-04-20 21.79 kg/m2 [facility] 13:54:00 of Medicine HEIGHT 2021-04-14 167.6 cm 10:00:00 WEIGHT 2021-04-14 61.6 kg 10:00:00 HEIGHT 2021-04-12 167.6 cm 11:53:00 WEIGHT 2021-04-12 61.236 kg 11:53:00 HEIGHT 2021-04-14 167.6 cm 10:00:00 WEIGHT 2021-04-14 61.6 kg 10:00:00 HEIGHT 2021-04-12 167.6 cm 11:53:00 WEIGHT 2021-04-12 61.236 kg 11:53:00 Systolic blood 2021-04-09 195 mm[Hg] report to dr Fidel Hooks e pressure 14:12:00 yen of Medicine Diastolic blood 2021-04-09 115 mm[Hg] report to dr Fidel Villa ge pressure 14:12:00 yen of Medicine Heart rate 2021-04-09 80 /min [facility] 14:12:00 of Medicine Body temperature 2021-04-09 36.67 Amber [facility] 14:12:00 of Medicine Respiratory rate 2021-04-09 18 /min [facility] 14:12:00 of Medicine Body height 2021-04-09 167.6 cm [facility] 14:12:00 of Medicine Body weight 2021-04-09 61.735 kg [facility] 14:12:00 of Medicine BMI 2021-04-09 21.97 kg/m2 [facility] 14:12:00 of Medicine Systolic blood 2021-04-09 195 mm[Hg] reported to dr. Fidel Polo [facility] pressure 14:14:00 yen of Medicine Diastolic blood 2021-04-09 115 mm[Hg] reported to dr. Fidel Schulz [facility] pressure 14:14:00 yen of Medicine Heart rate 2021-04-09 80 /min [facility] 14:14:00 of Medicine Body temperature 2021-04-09 36.67 Amber [facility] 14:14:00 of Medicine Respiratory rate 2021-04-09 18 /min [facility] 14:14:00 of Medicine Body height 2021-04-09 167.6 cm [facility] 14:14:00 of Medicine Body weight 2021-04-09 61.735 kg [facility] 14:14:00 of Medicine BMI 2021-04-09 21.97 kg/m2 [facility] 14:14:00 of Medicine Systolic blood 2021-03-15 193 mm[Hg] Fidel Villag e pressure 15:56:00 of Medicine Diastolic blood 2021-03-15 126 mm[Hg] [facility]idel [facility] pressure 15:56:00 of Medicine Heart rate 2021-03-15 73 /min [facility] 15:56:00 of Medicine Body height 2021-03-15 167.6 cm [facility] 15:56:00 of Medicine Body weight 2021-03-15 61.236 kg [facility] 15:56:00 of Medicine BMI 2021-03-15 21.79 kg/m2 [facility] 15:56:00 of Medicine Systolic blood 2021-03-12 176 mm[Hg] [facility] pressure 14:10:00 of Medicine Diastolic blood 2021-03-12 97 mm[Hg] [facility] pressure 14:10:00 of Medicine Heart rate 2021-03-12 77 /min [facility] 14:10:00 of Medicine Body temperature 2021-03-12 36.83 Amber [facility] 14:10:00 of Medicine Body height 2021-03-12 167.6 cm [facility] 14:10:00 of Medicine Body weight 2021-03-12 61.78 kg [facility] 14:10:00 of Medicine BMI 2021-03-12 21.98 kg/m2 [facility] 14:10:00 of Medicine Systolic blood 2021-03-12 173 mm[Hg] [facility] [employer] pressure 19:45:00 of Medicine Diastolic blood 2021-03-12 101 mm[Hg] [facility] pressure 19:45:00 of Medicine Heart rate 2021-03-12 67 /min [facility] 19:45:00 of Medicine Body temperature 2021-03-12 36.22 Amber [facility] 19:45:00 of Medicine Body height 2021-03-12 167.6 cm [facility] 19:45:00 of Medicine Body weight 2021-03-12 61.236 kg [facility] 19:45:00 of Medicine BMI 2021-03-12 21.79 kg/m2 [facility] 19:45:00 of Medicine Oxygen saturation 2021-03-12 97 /min [facility] in Arterial blood 19:45:00 of Medicin e by Pulse oximetry Systolic blood 2021-02-19 157 mm[Hg] [facility] pressure 14:26:00 of Medicine Diastolic blood 2021-02-19 92 mm[Hg] [facility] pressure 14:26:00 of Medicine Heart rate 2021-02-19 75 /min [facility] 14:26:00 of Medicine Body temperature 2021-02-19 36.61 Amber [facility] 14:26:00 of Medicine Body height 2021-02-19 167.6 cm [facility] 14:26:00 of Medicine Body weight 2021-02-19 60.873 kg [facility] 14:26:00 of Medicine BMI 2021-02-19 21.66 kg/m2 [facility] 14:26:00 of Medicine Systolic blood 2021-02-19 157 mm[Hg] [facility] pressure 14:23:00 of Medicine Diastolic blood 2021-02-19 92 mm[Hg] [facility] pressure 14:23:00 of Medicine Heart rate 2021-02-19 75 /min [facility] 14:23:00 of Medicine Body temperature 2021-02-19 36.61 Amber [facility] 14:23:00 of Medicine Body height 2021-02-19 167.6 cm [facility] 14:23:00 of Medicine Body weight 2021-02-19 60.873 kg [facility] 14:23:00 of Medicine BMI 2021-02-19 21.66 kg/m2 [facility] 14:23:00 of Medicine Systolic blood 2021-02-09 162 mm[Hg] [facility] pressure 15:59:00 of Medicine Diastolic blood 2021-02-09 100 mm[Hg] [facility] pressure 15:59:00 of Medicine Heart rate 2021-02-09 71 /min [facility] 15:59:00 of Medicine Body temperature 2021-02-09 35.67 Amber [facility] 15:59:00 of Medicine Respiratory rate 2021-02-09 16 /min [facility] 15:59:00 of Medicine Body height 2021-02-09 167.6 cm [facility] 15:59:00 of Medicine Body weight 2021-02-09 59.875 kg [facility] 15:59:00 of Medicine BMI 2021-02-09 21.31 kg/m2 [facility] 15:59:00 of Medicine Systolic blood 2021-01-29 170 mm[Hg] [facility] [employer] pressure 12:44:00 of Medicine Diastolic blood 2021-01-29 102 mm[Hg] [facility] pressure 12:44:00 of Medicine Heart rate 2021-01-29 73 /min [facility] 12:44:00 of Medicine Body temperature 2021-01-29 36.67 Amber [facility] 12:44:00 of Medicine Body height 2021-01-29 167.6 cm [facility] 12:44:00 of Medicine Body weight 2021-01-29 59.875 kg [facility] 12:44:00 of Medicine BMI 2021-01-29 21.31 kg/m2 [facility] 12:44:00 of Medicine Systolic blood 2021-01-29 170 mm[Hg] took b/p twice [facility] pressure 12:43:00 of Medicine Diastolic blood 2021-01-29 102 mm[Hg] took b/p twice [facility] pressure 12:43:00 of Medicine Heart rate 2021-01-29 73 /min [facility] 12:43:00 of Medicine Body temperature 2021-01-29 36.67 Amber [facility] 12:43:00 of Medicine Body height 2021-01-29 167.6 cm [facility] 12:43:00 of Medicine Body weight 2021-01-29 59.875 kg [facility] 12:43:00 of Medicine BMI 2021-01-29 21.31 kg/m2 [facility] 12:43:00 of Medicine Systolic blood 2021-01-08 157 mm[Hg] [facility] pressure 13:54:00 of Medicine Diastolic blood 2021-01-08 99 mm[Hg] [facility] pressure 13:54:00 of Medicine Heart rate 2021-01-08 69 /min [facility] 13:54:00 of Medicine Body temperature 2021-01-08 36.89 Amber [facility] 13:54:00 of Medicine Body height 2021-01-08 167.6 cm [facility] 13:54:00 of Medicine Body weight 2021-01-08 58.968 kg [facility] 13:54:00 of Medicine BMI 2021-01-08 20.98 kg/m2 [facility] 13:54:00 of Medicine HEIGHT 2020-12-29 167.6 cm 19:45:00 WEIGHT 2020-12-29 58.968 kg 19:45:00 HEIGHT 2020-12-29 167.6 cm 09:30:00 WEIGHT 2020-12-29 58.968 kg 09:30:00 HEIGHT 2020-12-29 167.6 cm 09:30:00 WEIGHT 2020-12-29 58.968 kg 09:30:00 Systolic blood 2020-12-18 171 mm[Hg] [facility] [employer] pressure 13:38:00 of Medicine Diastolic blood 2020-12-18 97 mm[Hg] [facility] pressure 13:38:00 of Medicine Heart rate 2020-12-18 81 /min [facility] 13:38:00 of Medicine Body temperature 2020-12-18 36.11 Amber [facility] 13:38:00 of Medicine Body height 2020-12-18 167.6 cm [facility] 13:38:00 of Medicine Body weight 2020-12-18 59.24 kg [facility] 13:38:00 of Medicine BMI 2020-12-18 21.08 kg/m2 [facility] 13:38:00 of Medicine Systolic blood 2020-12-18 171 mm[Hg] [facility] pressure 13:36:00 of Medicine Diastolic blood 2020-12-18 97 mm[Hg] [facility] pressure 13:36:00 of Medicine Heart rate 2020-12-18 81 /min [facility] 13:36:00 of Medicine Body temperature 2020-12-18 36.11 Amber [facility] 13:36:00 of Medicine Body height 2020-12-18 167.6 cm [facility] 13:36:00 of Medicine Body weight 2020-12-18 59.24 kg [facility] 13:36:00 of Medicine BMI 2020-12-18 21.08 kg/m2 [facility] 13:36:00 of Medicine Systolic blood 2020-11-27 123 mm[Hg] [facility] pressure 13:41:00 of Medicine Diastolic blood 2020-11-27 90 mm[Hg] [facility] pressure 13:41:00 of Medicine Heart rate 2020-11-27 73 /min [facility] 13:41:00 of Medicine Body temperature 2020-11-27 36.39 Amber [facility] 13:41:00 of Medicine Body height 2020-11-27 167.6 cm [facility] 13:41:00 of Medicine Body weight 2020-11-27 58.7 kg [facility] 13:41:00 of Medicine BMI 2020-11-27 20.89 kg/m2 [facility] 13:41:00 of Medicine Systolic blood 2020-11-27 179 mm[Hg] [facility] pressure 13:27:00 of Medicine Diastolic blood 2020-11-27 112 mm[Hg] [facility] pressure 13:27:00 of Medicine Heart rate 2020-11-27 73 /min [facility] 13:27:00 of Medicine Body temperature 2020-11-27 36.39 Amber [facility] 13:27:00 of Medicine Body height 2020-11-27 167.6 cm [facility] 13:27:00 of Medicine Body weight 2020-11-27 58.695 kg [facility] 13:27:00 of Medicine BMI 2020-11-27 20.89 kg/m2 [facility] 13:27:00 of Medicine Systolic blood 2020-10-16 159 mm[Hg] [employer] [employer] pressure 13:50:00 of Medicine Diastolic blood 2020-10-16 66 mm[Hg] [facility] pressure 13:50:00 of Medicine Heart rate 2020-10-16 77 /min [facility] 13:50:00 of Medicine Body temperature 2020-10-16 36.89 Amber [facility] 13:50:00 of Medicine Body height 2020-10-16 167.6 cm [facility] 13:50:00 of Medicine Body weight 2020-10-16 57.335 kg [facility] 13:50:00 of Medicine BMI 2020-10-16 20.40 kg/m2 [facility] 13:50:00 of Medicine Systolic blood 2020-09-25 159 mm[Hg] [employer] [employer] pressure 13:28:00 of Medicine Diastolic blood 2020-09-25 69 mm[Hg] [facility] pressure 13:28:00 of Medicine Heart rate 2020-09-25 69 /min [facility] 13:28:00 of Medicine Body temperature 2020-09-25 36.78 Amber [facility] 13:28:00 of Medicine Body height 2020-09-25 167.6 cm [facility] 13:28:00 of Medicine Body weight 2020-09-25 58.06 kg [facility] 13:28:00 of Medicine BMI 2020-09-25 20.66 kg/m2 [facility] 13:28:00 of Medicine Systolic blood 2020-09-04 142 mm[Hg] [facility] [employer] pressure 13:45:00 of Medicine Diastolic blood 2020-09-04 86 mm[Hg] [facility] pressure 13:45:00 of Medicine Heart rate 2020-09-04 70 /min [facility] 13:45:00 of Medicine Body temperature 2020-09-04 36.67 Amber [facility] 13:45:00 of Medicine Body height 2020-09-04 167.6 cm [facility] 13:45:00 of Medicine Body weight 2020-09-04 58.423 kg [facility] 13:45:00 of Medicine BMI 2020-09-04 20.79 kg/m2 [facility] 13:45:00 of Medicine Systolic blood 2020-08-07 148 mm[Hg] [facility] [employer] pressure 13:15:00 of Medicine Diastolic blood 2020-08-07 89 mm[Hg] [facility] pressure 13:15:00 of Medicine Heart rate 2020-08-07 70 /min [facility] 13:15:00 of Medicine Body temperature 2020-08-07 36.67 Amber [facility] 13:15:00 of Medicine Body height 2020-08-07 167.6 cm [facility] 13:15:00 of Medicine Body weight 2020-08-07 59.33 kg [facility] 13:15:00 of Medicine BMI 2020-08-07 21.11 kg/m2 [facility] 13:15:00 of Medicine Systolic blood 2020-07-17 161 mm[Hg] [employer] [employer] pressure 16:16:00 of Medicine Diastolic blood 2020-07-17 90 mm[Hg] [facility] pressure 16:16:00 of Medicine Heart rate 2020-07-17 58 /min [facility] 16:16:00 of Medicine Body height 2020-07-17 167.6 cm [facility] 16:16:00 of Medicine Body weight 2020-07-17 59.058 kg [facility] 16:16:00 of Medicine BMI 2020-07-17 21.01 kg/m2 [facility] 16:16:00 of Medicine Oxygen saturation 2020-07-17 99 /min [facility] in Arterial blood 16:16:00 of Medicin e by Pulse oximetry Systolic blood 2020-07-17 143 mm[Hg] [facility] [employer] pressure 13:58:00 of Medicine Diastolic blood 2020-07-17 86 mm[Hg] [facility] pressure 13:58:00 of Medicine Heart rate 2020-07-17 67 /min [facility] 13:58:00 of Medicine Body temperature 2020-07-17 36.11 Amber [facility] 13:58:00 of Medicine Body height 2020-07-17 167.6 cm [facility] 13:58:00 of Medicine Body weight 2020-07-17 59.512 kg [facility] 13:58:00 of Medicine BMI 2020-07-17 21.18 kg/m2 [facility] 13:58:00 of Medicine Systolic blood 2020-06-26 147 mm[Hg] [employer] [employer] pressure 13:21:00 of Medicine Diastolic blood 2020-06-26 87 mm[Hg] [facility] pressure 13:21:00 of Medicine Heart rate 2020-06-26 73 /min [facility] 13:21:00 of Medicine Body temperature 2020-06-26 36.83 Amber [facility] 13:21:00 of Medicine Body height 2020-06-26 167.6 cm [facility] 13:21:00 of Medicine Body weight 2020-06-26 59.24 kg [facility] 13:21:00 of Medicine BMI 2020-06-26 21.08 kg/m2 [facility] 13:21:00 of Medicine Systolic blood 2020-06-05 163 mm[Hg] [facility] pressure 14:36:00 of Medicine Diastolic blood 2020-06-05 95 mm[Hg] [facility] pressure 14:36:00 of Medicine Heart rate 2020-06-05 69 /min [facility] 14:36:00 of Medicine Body temperature 2020-06-05 36.39 Amber [facility] 14:36:00 of Medicine Body height 2020-06-05 167.6 cm [facility] 14:36:00 of Medicine Body weight 2020-06-05 60.691 kg [facility] 14:36:00 of Medicine BMI 2020-06-05 21.60 kg/m2 [facility] 14:36:00 of Medicine Systolic blood 2020-05-01 132 mm[Hg] [facility] [employer] pressure 16:25:00 of Medicine Diastolic blood 2020-05-01 81 mm[Hg] [facility] pressure 16:25:00 of Medicine Heart rate 2020-05-01 68 /min [facility] 16:25:00 of Medicine Body temperature 2020-05-01 36.39 Amber [facility] 16:25:00 of Medicine Body height 2020-05-01 167.6 cm [facility] 16:25:00 of Medicine Body weight 2020-05-01 61.145 kg [facility] 16:25:00 of Medicine BMI 2020-05-01 21.76 kg/m2 [facility] 16:25:00 of Medicine Systolic blood 2020-03-20 137 mm[Hg] [facility] pressure 21:17:00 of Medicine Diastolic blood 2020-03-20 88 mm[Hg] [facility] pressure 21:17:00 of Medicine Heart rate 2020-03-20 73 /min [facility] 21:17:00 of Medicine Body temperature 2020-03-20 36.61 Amber [facility] 21:17:00 of Medicine Body height 2020-03-20 167.6 cm [facility] 21:17:00 of Medicine Body weight 2020-03-20 61.145 kg [facility] 21:17:00 of Medicine BMI 2020-03-20 21.76 kg/m2 [facility] 21:17:00 of Medicine Systolic blood 2020-02-28 157 mm[Hg] [employer] [employer] pressure 19:41:00 of Medicine Diastolic blood 2020-02-28 94 mm[Hg] [facility] pressure 19:41:00 of Medicine Heart rate 2020-02-28 66 /min [facility] 19:41:00 of Medicine Body temperature 2020-02-28 36.78 Amber [facility] 19:41:00 of Medicine Respiratory rate 2020-02-28 18 /min [facility] 19:41:00 of Medicine Body height 2020-02-28 167.6 cm [facility] 19:41:00 of Medicine Body weight 2020-02-28 60.873 kg [facility] 19:41:00 of Medicine BMI 2020-02-28 21.66 kg/m2 [facility] 19:41:00 of Medicine Systolic blood 2020-01-15 153 mm[Hg] [employer] [employer] pressure 13:35:00 of Medicine Diastolic blood 2020-01-15 103 mm[Hg] [facility] pressure 13:35:00 of Medicine Heart rate 2020-01-15 69 /min [facility] 13:35:00 of Medicine Body temperature 2020-01-15 36.72 Amber [facility] 13:35:00 of Medicine Body height 2020-01-15 167.6 cm [facility] 13:35:00 of Medicine Body weight 2020-01-15 60.963 kg [facility] 13:35:00 of Medicine BMI 2020-01-15 21.69 kg/m2 [facility] 13:35:00 of Medicine Systolic blood 2020-01-09 158 mm[Hg] [facility] pressure 19:39:00 of Medicine Diastolic blood 2020-01-09 89 mm[Hg] [facility] pressure 19:39:00 of Medicine Heart rate 2020-01-09 74 /min [facility] 19:39:00 of Medicine Body temperature 2020-01-09 37.06 Amber [facility] 19:39:00 of Medicine Body height 2020-01-09 167.6 cm [facility] 19:39:00 of Medicine Body weight 2020-01-09 61.236 kg [facility] 19:39:00 of Medicine BMI 2020-01-09 21.79 kg/m2 [facility] 19:39:00 of Medicine Systolic blood 2019-12-30 193 mm[Hg] [facility] pressure 18:54:00 of Medicine Diastolic blood 2019-12-30 118 mm[Hg] [facility] pressure 18:54:00 of Medicine Heart rate 2019-12-30 60 /min [facility] 18:54:00 of Medicine Respiratory rate 2019-12-30 16 /min [facility] 18:54:00 of Medicine Body height 2019-12-30 167.6 cm [facility] 18:54:00 of Medicine Body weight 2019-12-30 61.598 kg [facility] 18:54:00 of Medicine BMI 2019-12-30 21.92 kg/m2 [facility] 18:54:00 of Medicine Oxygen saturation 2019-12-30 99 /min [facility] in Arterial blood 18:54:00 of Medicin e by Pulse oximetry Systolic blood 2019-10-30 185 mm[Hg] [facility] [employer] pressure 16:34:00 of Medicine Diastolic blood 2019-10-30 103 mm[Hg] [facility] pressure 16:34:00 of Medicine Heart rate 2019-10-30 60 /min [facility] 16:34:00 of Medicine Respiratory rate 2019-10-30 16 /min [facility] 16:34:00 of Medicine Body height 2019-10-30 167.6 cm [facility] 16:34:00 of Medicine Body weight 2019-10-30 61.689 kg [facility] 16:34:00 of Medicine BMI 2019-10-30 21.95 kg/m2 [facility] 16:34:00 of Medicine Oxygen saturation 2019-10-30 98 /min [facility] in Arterial blood 16:34:00 of Medicin e by Pulse oximetry Systolic blood 2019-10-30 185 mm[Hg] [facility] pressure 16:34:00 of Medicine Diastolic blood 2019-10-30 103 mm[Hg] [facility] pressure 16:34:00 of Medicine Heart rate 2019-10-30 60 /min [facility] 16:34:00 of Medicine Respiratory rate 2019-10-30 16 /min [facility] 16:34:00 of Medicine Body height 2019-10-30 167.6 cm [facility] 16:34:00 of Medicine Body weight 2019-10-30 61.689 kg [facility] 16:34:00 of Medicine BMI 2019-10-30 21.95 kg/m2 [facility] 16:34:00 of Medicine Oxygen saturation 2019-10-30 98 /min [facility] in Arterial blood 16:34:00 of Medicin e by Pulse oximetry Systolic blood 2019-05-01 126 mm[Hg] [facility] pressure 17:08:00 of Medicine Diastolic blood 2019-05-01 66 mm[Hg] [facility] pressure 17:08:00 of Medicine Heart rate 2019-05-01 78 /min [facility] 17:08:00 of Medicine Respiratory rate 2019-05-01 16 /min [facility] 17:08:00 of Medicine Body height 2019-05-01 167.6 cm [facility] 17:08:00 of Medicine Body weight 2019-05-01 60.963 kg [facility] 17:08:00 of Medicine BMI 2019-05-01 21.69 kg/m2 [facility] 17:08:00 of Medicine Oxygen saturation 2019-05-01 97 /min [facility] in Arterial blood 17:08:00 of Medicin e by Pulse oximetry Systolic blood 2019-05-01 126 mm[Hg] [facility] pressure 17:08:00 of Medicine Diastolic blood 2019-05-01 66 mm[Hg] [facility] pressure 17:08:00 of Medicine Heart rate 2019-05-01 78 /min [facility] 17:08:00 of Medicine Respiratory rate 2019-05-01 16 /min [facility] 17:08:00 of Medicine Body height 2019-05-01 167.6 cm [facility] 17:08:00 of Medicine Body weight 2019-05-01 60.963 kg [facility] 17:08:00 of Medicine BMI 2019-05-01 21.69 kg/m2 [facility] 17:08:00 of Medicine Oxygen saturation 2019-05-01 97 /min [facility] in Arterial blood 17:08:00 of Medicin e by Pulse oximetry Systolic blood 2018-11-22 120 mm[Hg] [facility] pressure 14:52:00 of Medicine Diastolic blood 2018-11-22 80 mm[Hg] [facility] pressure 14:52:00 of Medicine Heart rate 2018-11-22 65 /min [facility] 14:52:00 of Medicine Respiratory rate 2018-11-22 16 /min [facility] 14:52:00 of Medicine Body height 2018-11-22 167.6 cm [facility] 14:52:00 of Medicine Body weight 2018-11-22 58.514 kg [facility] 14:52:00 of Medicine BMI 2018-11-22 20.82 kg/m2 [facility] 14:52:00 of Medicine Oxygen saturation 2018-11-22 98 /min [facility] in Arterial blood 14:52:00 of Medicin e by Pulse oximetry Systolic blood 2018-11-22 120 mm[Hg] [facility] pressure 14:52:00 of Medicine Diastolic blood 2018-11-22 80 mm[Hg] [facility] pressure 14:52:00 of Medicine Heart rate 2018-11-22 65 /min [facility] 14:52:00 of Medicine Respiratory rate 2018-11-22 16 /min [facility] 14:52:00 of Medicine Body height 2018-11-22 167.6 cm [facility] 14:52:00 of Medicine Body weight 2018-11-22 58.514 kg [facility] 14:52:00 of Medicine BMI 2018-11-22 20.82 kg/m2 [facility] 14:52:00 of Medicine Oxygen saturation 2018-11-22 98 /min [facility] in Arterial blood 14:52:00 of Medicin e by Pulse oximetry Procedures Procedure Date / Time Performing Clinician Source Performed CBC W/AUTO DIFF WITH 2021-12-24 10:47:02 [facility] PLATELETS [facility] COMPREHENSIVE METABOLIC 2021-12-24 10:47:02 [facility] MAGNESIUM 2021-12-24 10:47:02 [facility] ACID FAST CULTURE \\T\\ SMEAR 2021-12-24 09:40:00 [facility] COMPREHENSIVE METABOLIC 2021-11-26 14:24:00 Malena Shell [facility] PANEL [facility] MAGNESIUM 2021-11-26 14:24:00 Malena Shell [facility] CBC W/AUTO DIFF WITH 2021-11-26 14:24:00 Malena Shell [facility] PLATELETS [facility] COMPLETE PFT WITHOUT 2021-11-24 10:15:40 [facility] BRONCHODILATOR [facility] SIX MINUTE WALK TEST 2021-11-24 00:00:00 [facility] ACID FAST CULTURE \\T\\ SMEAR 2021-11-16 11:03:43 [facility] COMPREHENSIVE METABOLIC 2021-10-29 16:00:00 Malena Shell [facility] PANEL [facility] MAGNESIUM 2021-10-29 16:00:00 Malena Shell [facility] CBC W/AUTO DIFF WITH 2021-10-29 16:00:00 Malena Shell [facility] PLATELETS [facility] HEMOGLOBIN A1C 2021-09-15 10:20:02 [facility] CBC W ABSOLUTE NEUTROPHIL 2021-09-03 06:24:47 [facility] COUNT [facility] COMPREHENSIVE METABOLIC 2021-09-03 06:24:47 [facility] PANEL [facility] TSH 2021-08-16 14:50:59 [facility] T4 FREE 2021-08-16 14:50:59 [facility] T3 2021-08-16 14:50:59 [facility] Colle ge of Medicine CORTISOL - AM SPECIMEN 2021-08-16 14:50:59 [facility] ACTH 2021-08-16 14:50:59 [facility] Medicine DHEA-SULFATE 2021-08-16 14:50:59 [facility] of Medicine POTASSIUM 2021-08-16 14:50:59 [facility] Medicine RENIN ACTIVITY 2021-08-16 14:50:59 [facility] Medicine CBC W/AUTO DIFF WITH 2021-08-13 08:54:29 [facility] PLATELETS Medicine COMPREHENSIVE METABOLIC 2021-08-13 08:54:29 [facility] PANEL [facility] MAGNESIUM 2021-08-13 08:54:29 [facility] Medicine COMPREHENSIVE METABOLIC 2021-08-13 08:17:00 [facility] CBC W/AUTO DIFF WITH 2021-08-13 08:17:00 [facility] PLATELETS [facility] CBC W ABSOLUTE NEUTROPHIL 2021-08-12 14:32:48 [facility] COUNT Medicine COMPREHENSIVE METABOLIC 2021-06-11 15:39:00 Malena Shell [facility] PANEL Medicine MAGNESIUM 2021-06-11 15:39:00 Malena Shell [facility] CBC W/AUTO DIFF WITH 2021-06-11 15:39:00 Malena Shell [facility] PLATELETS Medicine T4 FREE 2021-03-22 17:00:17 [facility] Medicine TSH 2021-03-22 17:00:17 [facility] Medicine CORTISOL - AM SPECIMEN 2021-03-22 15:54:13 [facility] ACTH 2021-03-22 15:54:13 [facility] Medicine ALDOSTERONE/RENIN RATIO 2021-03-22 15:54:13 [facility] ALDOSTERONE 2021-03-22 15:54:13 [facility] Medicine DHEA-SULFATE 2021-03-22 15:54:13 [facility] Medicine METANEPHRINES, 2021-03-22 15:54:13 [facility] of PHEOCHROMOCYT Medicine ASSIGNMENT OF BENEFITS 2020-12-16 18:28:53 [facility]IGN[facility] OF BENEFITS 2020-10-09 21:48:23 Doctor Unassigned, Un iversity [facility] ASSIGNMENT OF BENEFITS 2020-10-07 17:44:33 [facility] POCT URINALYSIS DIPSTICK 2020-01-09 00:00:00 LinZach meredithgarrett Malin [facility] ELECTROCARDIOGRAM COMPLETE 2019-12-30 19:20:00 Jeff Luciano [facility] Plan of Care Planned Activity Planned Date Details Comments Source Future Scheduled 2022-01-12 Screening for malignant [facility] Test 10:50:01 neoplasm of colon of Medicin e (procedure) [code = 101091134] Future Scheduled 2022-01-12 TETANUS SHOT (ADULT) [facility] Test 10:50:01 [code = TETANUS SHOT of Medi cine (ADULT)] Future Scheduled 2022-01-12 Hepatitis C screening [facility] [place] Test 10:50:01 (procedure) [code = of Medic ine 315043187] Future Scheduled 2022-01-12 [facility] screening of Medicine (procedure) [code = 057646568] Future Scheduled 2022-01-12 ZOSTER VACCINE (1 of 2) [facility] Test 10:50:01 [code = ZOSTER VACCINE of Me dicine (1 of 2)] Future Scheduled 2022-01-12 Screening for malignant [facility] Test 10:50:01 neoplasm of cervix of Medici ne (procedure) [code = 025145952] Future Scheduled 2022-01-12 Screening for malignant [facility] Test 10:50:01 neoplasm of lung of Medicine (procedure) [code = 577328876] Future Scheduled 2022-01-12 COVID-19 Vaccine (3 - [facility] [employer] Test 10:50:01 Mixed Product risk of Medici ne series) [code = COVID-19 Vaccine (3 - Mixed Product risk series)] Future Scheduled 2022-01-12 Screening for malignant [facility] Test 10:50:01 neoplasm of breast of Medici ne (procedure) [code = 491686907] Future Scheduled 2022-01-12 FLU VACCINE > 6 MONTHS [facility] [employer] Test 10:50:01 [code = FLU VACCINE > 6 of M edicine MONTHS] Future Scheduled 2022-01-12 Pneumococcal Combined Ba [facility] Test 10:50:01 (2 - PCV) [code = of Medicin e Pneumococcal Combined (2 - PCV)] Future Scheduled 2022-01-11 Screening for malignant [facility] Test 11:32:47 neoplasm of colon of Medicin e (procedure) [code = 704540477] Future Scheduled 2022-01-11 TETANUS SHOT (ADULT) [facility] [employer] Test 11:32:47 [code = TETANUS SHOT of Medi cine (ADULT)] Future Scheduled 2022-01-11 Hepatitis C screening [facility] Test 11:32:47 (procedure) [code = of Medic ine 998104011] Future Scheduled 2022-01-11 Human immunodeficiency B [facility] Test 11:32:47 virus screening of Medicine (procedure) [code = 352101326] Future Scheduled 2022-01-11 ZOSTER VACCINE (1 of 2) [facility] Test 11:32:47 [code = ZOSTER VACCINE of Me dicine (1 of 2)] Future Scheduled 2022-01-11 Screening for malignant [facility] Test 11:32:47 neoplasm of cervix of Medici ne (procedure) [code = 445485058] Future Scheduled 2022-01-11 Screening for malignant [facility] Test 11:32:47 neoplasm of lung of Medicine (procedure) [code = 104807307] Future Scheduled 2022-01-11 COVID-19 Vaccine (3 - [facility] Test 11:32:47 Mixed Product risk of Medici ne series) [code = COVID-19 Vaccine (3 - Mixed Product risk series)] Future Scheduled 2022-01-11 Screening for malignant [facility] Test 11:32:47 neoplasm of breast of Medici ne (procedure) [code = 786118807] Future Scheduled 2022-01-11 FLU VACCINE > 6 MONTHS B [facility] Test 11:32:47 [code = FLU VACCINE > 6 of M edicine MONTHS] Future Scheduled 2022-01-11 Pneumococcal Combined [facility] Test 11:32:47 (2 - PCV) [code = of Medicin e Pneumococcal Combined (2 - PCV)] Future Scheduled 2022-01-03 HEPATITIS B VACCINES (1 [facility] Test 00:04:07 of 3 - 3-dose series) Hospit al [code = HEPATITIS B VACCINES (1 of 3 - 3-dose series)] Future Scheduled 2022-01-03 COVID-19 [facility]ACCINE (#1) [facility]07 [code = COVID-19 Hospital VACCINE (#1)] Future Scheduled 2022-01-03 Pneumococcal Vaccine: [facility] 00:04:07 Pediatrics (0 to 5 Hospital Years) and At-Risk Patients (6 to 64 Years) (1 - PCV) [code = Pneumococcal Vaccine: Pediatrics (0 to 5 Years) and At-Risk Patients (6 to 64 Years) (1 - PCV)] Future Scheduled 2022-01-03 Hepatitis C screening [facility] 00:04:07 (procedure) [code = Hospital 920793060] Future Scheduled 2022-01-03 SHINGLES VACCINES (1 of [facility] Test 00:04:07 2) [code = SHINGLES Hospital VACCINES (1 of 2)] Future Scheduled 2022-01-03 Screening for malignant [facility] Test 00:04:07 neoplasm of cervix Hospital (procedure) [code = 666159615] Future Scheduled 2022-01-03 BREAST CANCER SCREENING [facility] Test 00:04:07 [code = BREAST CANCER Hospit al SCREENING] Future Scheduled 2022-01-03 COLONOSCOPY SCREENING [facility] 00:04:07 [code = COLONOSCOPY Hospital SCREENING] Future Scheduled 2022-01-03 INFLUENZA VACCINE [code [facility] Test 00:04:07 = INFLUENZA VACCINE] Hospita l Future Scheduled 2021-12-27 CT CHEST ABDOMEN PELVIS Expected: [facility] Test 00:00:00 W CONTRAST [code = 12/27/2021, [place] [address]-3] Expires: 11/26/2022 Future Scheduled 2021-12-24 Screening for malignant [facility] Test 11:04:49 neoplasm of colon of Medicin e (procedure) [code = 155932835] Future Scheduled 2021-12-24 TETANUS SHOT (ADULT) [facility] [employer] Test 11:04:49 [code = TETANUS SHOT of Medi cine (ADULT)] Future Scheduled 2021-12-24 Hepatitis C screening [facility] Test 11:04:49 (procedure) [code = of Medic ine 132655830] Future Scheduled 2021-12-24 Human immunodeficiency B [facility] Test 11:04:49 virus screening of Medicine (procedure) [code = 963828438] Future Scheduled 2021-12-24 ZOSTER VACCINE (1 of 2) [facility] [employer] Test 11:04:49 [code = ZOSTER VACCINE of Me dicine (1 of 2)] Future Scheduled 2021-12-24 Screening for malignant [facility] [employer] Test 11:04:49 neoplasm of cervix of Medici ne (procedure) [code = 047721935] Future Scheduled 2021-12-24 Screening for malignant [facility] [employer] Test 11:04:49 neoplasm of lung of Medicine (procedure) [code = 001890677] Future Scheduled 2021-12-24 COVID-19 Vaccine (3 - [facility] [employer] Test 11:04:49 Mixed Product risk of Medici ne series) [code = COVID-19 Vaccine (3 - Mixed Product risk series)] Future Scheduled 2021-12-24 Screening for malignant [facility] [employer] Test 11:04:49 neoplasm of breast of Medici ne (procedure) [code = 881325821] Future Scheduled 2021-12-24 FLU VACCINE > 6 MON[facility]S [facility] Test 11:04:49 [code = FLU VACCINE > 6 of M edicine MONTHS] Future Scheduled 2021-12-24 Pneumococcal Combined [employer] Test 11:04:49 (2 - PCV) [code = of Medicin e Pneumococcal Combined (2 - PCV)] Future Scheduled 2021-12-24 CBC W/AUTO DIFF WITH Ordered: [facility] Test 10:47:02 PLATELETS [code = 12/24/2021 of Medicin e 28502-5] Future Scheduled 2021-12-24 COMPREHENSIVE METABOLIC Ordered: [facility] [employer] Test 10:47:02 PANEL [code = 76288-5] 12/24/2021 of Me dicine Future Scheduled 2021-12-24 MAGNESIUM [code = Ordered: [facility] [employer] Test 10:47:02 04781-6] 12/24/2021 of Medicine Future Scheduled 2021-11-29 MRI HIP RIGHT W WO Expected: [facility] Test 00:00:00 CONTRAST [code = 75413] 11/29/2021, of M edicine Expires: 10/29/2022 Future Scheduled 2021-11-26 Screening for malignant [facility] [employer] Test 09:11:41 neoplasm of colon of Medicin e (procedure) [code = 627285244] Future Scheduled 2021-11-26 TETANUS SHOT (ADULT) [employer] [employer] Test 09:11:41 [code = TETANUS SHOT of Medi cine (ADULT)] Future Scheduled 2021-11-26 Hepatitis C screening [facility] [employer] [employer] Test 09:11:41 (procedure) [code = of Medic ine 506169972] Future Scheduled 2021-11-26 [facility] Test 09:11:41 virus screening of Medicine (procedure) [code = 713178761] Future Scheduled 2021-11-26 ZOSTER VACCINE (1 of 2) [facility] [employer] Test 09:11:41 [code = ZOSTER VACCINE of Me dicine (1 of 2)] Future Scheduled 2021-11-26 Screening for malignant [facility] [employer] Test 09:11:41 neoplasm of cervix of Medici ne (procedure) [code = 771977692] Future Scheduled 2021-11-26 Screening for malignant [facility] Test 09:11:41 neoplasm of lung of Medicine (procedure) [code = 117864647] Future Scheduled 2021-11-26 COVID-19 Vaccine (3 - [facility] [employer] Test 09:11:41 Mixed Product risk of Medici ne series) [code = COVID-19 Vaccine (3 - Mixed Product risk series)] Future Scheduled 2021-11-26 Screening for malignant [facility] [employer] Test 09:11:41 neoplasm of breast of Medici ne (procedure) [code = 448017580] Future Scheduled 2021-11-26 FLU VACCINE > 6 MONTHS B [facility] [employer] Test 09:11:41 [code = FLU VACCINE > 6 of M edicine MONTHS] Future Scheduled 2021-11-26 Pneumococcal Combined [facility] Test 09:11:41 (2 - PCV) [code = of Medicin e Pneumococcal Combined (2 - PCV)] Future Scheduled 2021-11-24 Screening for malignant [facility] Test 13:28:26 neoplasm of colon of Medicin e (procedure) [code = 864665286] Future Scheduled 2021-11-24 TETANUS SHOT (ADULT) [employer] Test 13:28:26 [code = TETANUS SHOT of Medi cine (ADULT)] Future Scheduled 2021-11-24 Hepatitis C screening [employer] [employer] Test 13:28:26 (procedure) [code = of Medic ine 133904396] Future Scheduled 2021-11-24 [facility] Test 13:28:26 virus screening of Medicine (procedure) [code = 261331089] Future Scheduled 2021-11-24 ZOSTER VACCINE (1 of 2) [facility] [employer] Test 13:28:26 [code = ZOSTER VACCINE of Me dicine (1 of 2)] Future Scheduled 2021-11-24 Screening for malignant [facility] Test 13:28:26 neoplasm of cervix of Medici ne (procedure) [code = 744032196] Future Scheduled 2021-11-24 Screening for malignant [facility] Test 13:28:26 neoplasm of lung of Medicine (procedure) [code = 299217588] Future Scheduled 2021-11-24 COVID-19 Vaccine (3 - [facility] [employer] Test 13:28:26 Mixed Product risk of Medici ne series) [code = COVID-19 Vaccine (3 - Mixed Product risk series)] Future Scheduled 2021-11-24 Screening for malignant [facility] Test 13:28:26 neoplasm of breast of Medici ne (procedure) [code = 904398135] Future Scheduled 2021-11-24 FLU VACCINE > 6 MONTHS [facility] Test 13:28:26 [code = FLU VACCINE > 6 of M edicine MONTHS] Future Scheduled 2021-11-24 Pneumococcal Combined [facility] Test 13:28:26 (2 - PCV) [code = of Medicin e Pneumococcal Combined (2 - PCV)] Future Scheduled 2021-11-24 Screening for malignant [facility] Test 11:49:48 neoplasm of colon of Medicin e (procedure) [code = 914948369] Future Scheduled 2021-11-24 TETANUS SHOT (ADULT) [facility] [employer] Test 11:49:48 [code = TETANUS SHOT of Medi cine (ADULT)] Future Scheduled 2021-11-24 Hepatitis C screening [facility] Test 11:49:48 (procedure) [code = of Medic ine 514295565] Future Scheduled 2021-11-24 Human immunodeficiency [facility] Test 11:49:48 virus screening of Medicine (procedure) [code = 139026625] Future Scheduled 2021-11-24 ZOSTER VACCINE (1 of 2) [facility] [employer] Test 11:49:48 [code = ZOSTER VACCINE of Me dicine (1 of 2)] Future Scheduled 2021-11-24 Screening for malignant [facility] Test 11:49:48 neoplasm of cervix of Medici ne (procedure) [code = 879596652] Future Scheduled 2021-11-24 Screening for malignant [employer] Test 11:49:48 neoplasm of lung of Medicine (procedure) [code = 436661551] Future Scheduled 2021-11-24 COVID-19 Vaccine (3 - [facility] [employer] Test 11:49:48 Mixed Product risk of Medici ne series) [code = COVID-19 Vaccine (3 - Mixed Product risk series)] Future Scheduled 2021-11-24 Screening for malignant [facility] [employer] Test 11:49:48 neoplasm of breast of Medici ne (procedure) [code = 544464224] Future Scheduled 2021-11-24 FLU VACCINE > 6 MONTHS [facility] [employer] Test 11:49:48 [code = FLU VACCINE > 6 of M edicine MONTHS] Future Scheduled 2021-11-24 Pneumococcal Combined [employer] Test 11:49:48 (2 - PCV) [code = of Medicin e Pneumococcal Combined (2 - PCV)] Future Scheduled 2021-11-24 COMPLETE PFT WITHOUT 1 Occurrences [employer] [employer] Test 11:38:41 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 = starting of Me dicine 68335] 11/24/2021 until 11/24/2022 Future Scheduled 2021-11-24 SIX MINUTE WALK TEST 1 Occurrences [employer] Test 11:38:41 [code = 81747] starting of Medicine 11/24/2021 until 11/24/2022 Future Scheduled 2021-10-29 Screening for malignant [facility] [employer] Test 10:49:39 neoplasm of colon of Medicin e (procedure) [code = 066064793] Future Scheduled 2021-10-29 TETANUS SHOT (ADULT) [facility] [employer] Test 10:49:39 [code = TETANUS SHOT of Medi cine (ADULT)] Future Scheduled 2021-10-29 Hepatitis C screening [employer] Test 10:49:39 (procedure) [code = of Medic ine 070436075] Future Scheduled 2021-10-29 Human immunodeficiency [facility] [employer] Test 10:49:39 virus screening of Medicine (procedure) [code = 999217714] Future Scheduled 2021-10-29 ZOSTER VACCINE (1 of 2) [facility] [employer] Test 10:49:39 [code = ZOSTER VACCINE of Me dicine (1 of 2)] Future Scheduled 2021-10-29 Screening for malignant [facility] [employer] Test 10:49:39 neoplasm of cervix of Medici ne (procedure) [code = 513455526] Future Scheduled 2021-10-29 Screening for malignant [facility] [employer] Test 10:49:39 neoplasm of lung of Medicine (procedure) [code = 254738948] Future Scheduled 2021-10-29 COVID-19 Vaccine (3 - [facility] [employer] Test 10:49:39 Mixed Product risk of Medici ne series) [code = COVID-19 Vaccine (3 - Mixed Product risk series)] Future Scheduled 2021-10-29 Screening for malignant [facility] [employer] Test 10:49:39 neoplasm of breast of Medici ne (procedure) [code = 313672511] Future Scheduled 2021-10-29 FLU VACCINE > 6 MONTHS [facility] Test 10:49:39 [code = FLU VACCINE > 6 of M edicine MONTHS] Future Scheduled 2021-10-29 Pneumococcal Combined [facility] Test 10:49:39 (2 - PCV) [code = of Medicin e Pneumococcal Combined (2 - PCV)] Future Scheduled 2021-10-29 Screening for malignant [facility] Test 10:49:39 neoplasm of colon of Medicin e (procedure) [code = 632719324] Future Scheduled 2021-10-29 TETANUS SHOT (ADULT) [facility] [employer] Test 10:49:39 [code = TETANUS SHOT of Medi cine (ADULT)] Future Scheduled 2021-10-29 Hepatitis C screening [facility] Test 10:49:39 (procedure) [code = of Medic ine 495794486] Future Scheduled 2021-10-29 Human immunodeficiency B [facility] [employer] Test 10:49:39 virus screening of Medicine (procedure) [code = 247515818] Future Scheduled 2021-10-29 ZOSTER VACCINE (1 of 2) [facility] [employer] Test 10:49:39 [code = ZOSTER VACCINE of Me dicine (1 of 2)] Future Scheduled 2021-10-29 Screening for malignant [facility] [employer] Test 10:49:39 neoplasm of cervix of Medici ne (procedure) [code = 554665611] Future Scheduled 2021-10-29 Screening for malignant [facility] [employer] Test 10:49:39 neoplasm of lung of Medicine (procedure) [code = 714439431] Future Scheduled 2021-10-29 COVID-19 Vaccine (3 - [facility] [employer] Test 10:49:39 Mixed Product risk of Medici ne series) [code = COVID-19 Vaccine (3 - Mixed Product risk series)] Future Scheduled 2021-10-29 Screening for malignant [facility] [employer] Test 10:49:39 neoplasm of breast of Medici ne (procedure) [code = 065437781] Future Scheduled 2021-10-29 FLU VACCINE > 6 MONTHS [facility] Test 10:49:39 [code = FLU VACCINE > 6 of M edicine MONTHS] Future Scheduled 2021-10-29 Pneumococcal Combined [facility] Test 10:49:39 (2 - PCV) [code = of Medicin e Pneumococcal Combined (2 - PCV)] Future Scheduled 2021-10-29 TSH [code = 68656-5] [facility] [employer] Test 10:18:19 of Medicine Future Scheduled 2021-10-29 T4 FREE [code = 3024-7] [facility] [employer] Test 10:18:19 of Medicine Future Scheduled 2021-10-11 Screening for malignant [facility] Test 10:29:01 neoplasm of colon of Medicin e (procedure) [code = 291754425] Future Scheduled 2021-10-11 TETANUS SHOT (ADULT) [facility] Test 10:29:01 [code = TETANUS SHOT of Medi cine (ADULT)] Future Scheduled 2021-10-11 Hepatitis C screening [facility] Test 10:29:01 (procedure) [code = of Medic ine 713065745] Future Scheduled 2021-10-11 Human immunodeficiency B [facility] Test 10:29:01 virus screening of Medicine (procedure) [code = 359776079] Future Scheduled 2021-10-11 ZOSTER VACCINE (1 of 2) [facility] Test 10:29:01 [code = ZOSTER VACCINE of Ga dicine (1 of 2)] Future Scheduled 2021-10-11 Screening for malignant [facility] [employer] Test 10:29:01 neoplasm of cervix of Medici ne (procedure) [code = 915929297] Future Scheduled 2021-10-11 Screening for malignant [facility] [employer] Test 10:29:01 neoplasm of lung of Medicine (procedure) [code = 372289658] Future Scheduled 2021-10-11 COVID-19 Vaccine (3 - [facility] Test 10:29:01 Mixed Product risk of Medici ne series) [code = COVID-19 Vaccine (3 - Mixed Product risk series)] Future Scheduled 2021-10-11 Screening for malignant [facility] [employer] Test 10:29:01 neoplasm of breast of Medici ne (procedure) [code = 755099318] Future Scheduled 2021-10-11 FLU VACCINE > 6 MONTHS [facility] [employer] Test 10:29:01 [code = FLU VACCINE > 6 of M edicine MONTHS] Future Scheduled 2021-10-11 Pneumococcal Combined [facility] Test 10:29:01 (2 - PCV) [code = of Medicin e Pneumococcal Combined (2 - PCV)] Future Scheduled 2021-09-24 Screening for malignant [facility] [employer] Test 10:22:46 neoplasm of colon of Medicin e (procedure) [code = 835080584] Future Scheduled 2021-09-24 TETANUS SHOT (ADULT) [facility] [employer] Test 10:22:46 [code = TETANUS SHOT of Medi cine (ADULT)] Future Scheduled 2021-09-24 Hepatitis C screening [facility] Test 10:22:46 (procedure) [code = of Medic ine 280764927] Future Scheduled 2021-09-24 Human immunodeficiency B [facility] Test 10:22:46 virus screening of Medicine (procedure) [code = 629867601] Future Scheduled 2021-09-24 ZOSTER VACCINE (1 of 2) [facility] Test 10:22:46 [code = ZOSTER VACCINE of Me dicine (1 of 2)] Future Scheduled 2021-09-24 Screening for malignant [facility] [employer] Test 10:22:46 neoplasm of cervix of Medici ne (procedure) [code = 400617368] Future Scheduled 2021-09-24 Screening for malignant [facility] [employer] Test 10:22:46 neoplasm of lung of Medicine (procedure) [code = 477697063] Future Scheduled 2021-09-24 COVID-19 Vaccine (3 - [facility] Test 10:22:46 Mixed Product risk of Medici ne series) [code = COVID-19 Vaccine (3 - Mixed Product risk series)] Future Scheduled 2021-09-24 Screening for malignant [facility] [employer] Test 10:22:46 neoplasm of breast of Medici ne (procedure) [code = 647498929] Future Scheduled 2021-09-24 FLU VACCINE > 6 MONTHS [employer] Test 10:22:46 [code = FLU VACCINE > 6 of M edicine MONTHS] Future Scheduled 2021-09-24 Pneumococcal Combined [employer] Test 10:22:46 (2 - PCV) [code = of Medicin e Pneumococcal Combined (2 - PCV)] Future Scheduled 2021-09-24 Screening for malignant [facility] Test 09:29:00 neoplasm of colon of Medicin e (procedure) [code = 631296275] Future Scheduled 2021-09-24 TETANUS SHOT (ADULT) [facility] [employer] Test 09:29:00 [code = TETANUS SHOT of Medi cine (ADULT)] Future Scheduled 2021-09-24 Hepatitis C screening [facility] Test 09:29:00 (procedure) [code = of Medic ine 968885313] Future Scheduled 2021-09-24 Human immunodeficiency B [facility] Test 09:29:00 virus screening of Medicine (procedure) [code = 885234692] Future Scheduled 2021-09-24 ZOSTER VACCINE (1 of 2) [facility] Test 09:29:00 [code = ZOSTER VACCINE of Me dicine (1 of 2)] Future Scheduled 2021-09-24 Screening for malignant [facility] Test 09:29:00 neoplasm of cervix of Medici ne (procedure) [code = 058133669] Future Scheduled 2021-09-24 Screening for malignant [facility] Test 09:29:00 neoplasm of lung of Medicine (procedure) [code = 895825318] Future Scheduled 2021-09-24 COVID-19 Vaccine (3 - [facility] Test 09:29:00 Mixed Product risk of Medici ne series) [code = COVID-19 Vaccine (3 - Mixed Product risk series)] Future Scheduled 2021-09-24 Screening for malignant [facility] Test 09:29:00 neoplasm of breast of Medici ne (procedure) [code = 495091735] Future Scheduled 2021-09-24 FLU VACCINE > 6 MONTHS B [facility] [employer] Test 09:29:00 [code = FLU VACCINE > 6 of M edicine MONTHS] Future Scheduled 2021-09-24 Pneumococcal Combined [facility] Test 09:29:00 (2 - PCV) [code = of Medicin e Pneumococcal Combined (2 - PCV)] Future Scheduled 2021-09-13 CT CHEST ABDOMEN PELVIS Expected: [facility] Test 00:00:00 W/WO CONTRAST [code = 09/13/2021, of Med iciivet 61925] Expires: 08/13/2022 Future Scheduled 2021-09-03 Screening for malignant [employer] Test 09:48:55 neoplasm of colon of Medicin e (procedure) [code = 124926730] Future Scheduled 2021-09-03 TETANUS SHOT (ADULT) [employer] Test 09:48:55 [code = TETANUS SHOT of Medi cine (ADULT)] Future Scheduled 2021-09-03 Hepatitis C screening [employer] Test 09:48:55 (procedure) [code = of Medic ine [id number]] Future Scheduled 2021-09-03 Human immunodeficiency [facility] [employer] Test 09:48:55 virus screening of Medicine (procedure) [code = 112147455] Future Scheduled 2021-09-03 ZOSTER VACCINE (1 of 2) [employer] Test 09:48:55 [code = ZOSTER VACCINE of Me dicine (1 of 2)] Future Scheduled 2021-09-03 Screening for malignant [facility] [employer] Test 09:48:55 neoplasm of cervix of Medici ne (procedure) [code = 242415012] Future Scheduled 2021-09-03 Screening for malignant [employer] Test 09:48:55 neoplasm of lung of Medicine (procedure) [code = 230841944] Future Scheduled 2021-09-03 COVID-19 Vaccine (3 - [employer] Test 09:48:55 Mixed Product risk of Medici ne series) [code = COVID-19 Vaccine (3 - Mixed Product risk series)] Future Scheduled 2021-09-03 Screening for malignant [facility] [employer] Test 09:48:55 neoplasm of breast of Medici ne (procedure) [code = 938609155] Future Scheduled 2021-09-03 FLU VACCINE > 6 MONTHS [facility] [employer] Test 09:48:55 [code = FLU VACCINE > 6 of M edicine MONTHS] Future Scheduled 2021-09-03 Pneumococcal Combined [employer] [facility] 09:48:55 (2 - PCV) [code = of Medicin e Pneumococcal Combined (2 - PCV)] Future Scheduled 2021-08-14 Screening for malignant [facility] [employer] Test 14:00:24 neoplasm of colon of Medicin e (procedure) [code = 385168499] Future Scheduled 2021-08-14 TETANUS SHOT (ADULT) [employer] Test 14:00:24 [code = TETANUS SHOT of Medi cine (ADULT)] Future Scheduled 2021-08-14 Hepatitis C screening [employer] Test 14:00:24 (procedure) [code = of Medic ine 939571364] Future Scheduled 2021-08-14 [facility] immunodeficiency [facility] Test 14:00:24 virus screening of Medicine (procedure) [code = 368652264] Future Scheduled 2021-08-14 Screening for malignant [facility] [employer] Test 14:00:24 neoplasm of cervix of Medici ne (procedure) [code = 343397871] Future Scheduled 2021-08-14 Screening for malignant [facility] [employer] Test 14:00:24 neoplasm of lung of Medicine (procedure) [code = 212707941] Future Scheduled 2021-08-14 ZOSTER VACCINE (1 of 2) [employer] Test 14:00:24 [code = ZOSTER VACCINE of Me dicine (1 of 2)] Future Scheduled 2021-08-14 COVID-19 Vaccine (3 - [facility] Test 14:00:24 Inadvertent risk 4-dose of M edicine series) [code = COVID-19 Vaccine (3 - Inadvertent risk 4-dose series)] Future Scheduled 2021-08-14 Screening for malignant [facility] [employer] Test 14:00:24 neoplasm of breast of Medici ne (procedure) [code = 768953952] Future Scheduled 2021-08-14 FLU VACCINE > 6 MONTHS [facility] [employer] Test 14:00:24 [code = FLU VACCINE > 6 of M edicine MONTHS] Future Scheduled 2021-08-14 Pneumococcal Combined [facility] Test 14:00:24 (2 of 4 - PCV13) [code of Me dicine = Pneumococcal Combined (2 of 4 - PCV13)] Future Scheduled 2021-08-13 Screening for malignant [facility] Test 09:24:25 neoplasm of colon of Medicin e (procedure) [code = 419495174] Future Scheduled 2021-08-13 TETANUS SHOT (ADULT) [facility] [employer] Test 09:24:25 [code = TETANUS SHOT of Medi cine (ADULT)] Future Scheduled 2021-08-13 Hepatitis C screening [facility] [employer] Test 09:24:25 (procedure) [code = of Medic ine 562475757] Future Scheduled 2021-08-13 Human immunodeficiency [facility] [employer] Test 09:24:25 virus screening of Medicine (procedure) [code = 543570445] Future Scheduled 2021-08-13 Screening for malignant [facility] [employer] Test 09:24:25 neoplasm of cervix of Medici ne (procedure) [code = 235479246] Future Scheduled 2021-08-13 Screening for malignant [facility] [employer] Test 09:24:25 neoplasm of lung of Medicine (procedure) [code = 909165346] Future Scheduled 2021-08-13 ZOSTER VACCINE (1 of 2) [employer] 09:24:25 [code = ZOSTER VACCINE of Me dicine (1 of 2)] Future Scheduled 2021-08-13 COVID-19 Vaccine (3 - [facility] [employer] Test 09:24:25 Inadvertent risk 4-dose of M edicine series) [code = COVID-19 Vaccine (3 - Inadvertent risk 4-dose series)] Future Scheduled 2021-08-13 Screening for malignant [facility] Test 09:24:25 neoplasm of breast of Medici ne (procedure) [code = 383015730] Future Scheduled 2021-08-13 FLU VACCINE > 6 MONTHS [facility] [employer] Test 09:24:25 [code = FLU VACCINE > 6 of M edicine MONTHS] Future Scheduled 2021-08-13 [facility] 09:24:25 (2 of 4 - PCV13) [code of Me dicine = Pneumococcal Combined (2 of 4 - PCV13)] Future Scheduled 2021-08-13 CBC W/AUTO DIFF WITH Ordered: [facility] [employer] Test 08:54:29 PLATELETS [code = 08/13/2021 of Medicin e 90452-7] Future Scheduled 2021-08-13 COMPREHENSIVE METABOLIC Ordered: [facility] [employer] Test 08:54:29 PANEL [code = 34102-6] 08/13/2021 of Me dicine Future Scheduled 2021-08-13 MAGNESIUM [code = Ordered: [facility] [employer] Test 08:54:29 80209-2] 08/13/2021 of Medicine Future Scheduled 2021-08-09 Screening for malignant [facility] Test 10:01:50 neoplasm of colon of Medicin e (procedure) [code = 700674255] Future Scheduled 2021-08-09 TETANUS SHOT (ADULT) [employer] Test 10:01:50 [code = TETANUS SHOT of Medi cine (ADULT)] Future Scheduled 2021-08-09 Hepatitis C screening [facility] [employer] [facility] 10:01:50 (procedure) [code = of Medic ine 887063301] Future Scheduled 2021-08-09 Human immunodeficiency [facility] [employer] Test 10:01:50 virus screening of Medicine (procedure) [code = 518442040] Future Scheduled 2021-08-09 Screening for malignant [employer] 10:01:50 neoplasm of cervix of Medici ne (procedure) [code = 970516765] Future Scheduled 2021-08-09 Screening for malignant [employer] 10:01:50 neoplasm of lung of Medicine (procedure) [code = 038273133] Future Scheduled 2021-08-09 ZOSTER VACCINE (1 of 2) [facility] [employer] Test 10:01:50 [code = ZOSTER VACCINE of Me dicine (1 of 2)] Future Scheduled 2021-08-09 COVID-19 Vaccine (3 - [employer] [facility] 10:01:50 Inadvertent risk 4-dose of M edicine series) [code = COVID-19 Vaccine (3 - Inadvertent risk 4-dose series)] Future Scheduled 2021-08-09 Screening for malignant [facility] [employer] Test 10:01:50 neoplasm of breast of Medici ne (procedure) [code = 104909411] Future Scheduled 2021-08-09 FLU VACCINE > 6 MONTHS [facility] [employer] Test 10:01:50 [code = FLU VACCINE > 6 of M edicine MONTHS] Future Scheduled 2021-08-09 Pneumococcal Combined [employer] [facility] 10:01:50 (2 of 4 - PCV13) [code of Me dicine = Pneumococcal Combined (2 of 4 - PCV13)] Future Scheduled 2021-08-06 Screening for malignant [facility] [employer] Test 10:35:35 neoplasm of colon of Medicin e (procedure) [code = 313885056] Future Scheduled 2021-08-06 TETANUS SHOT (ADULT) [employer] Test 10:35:35 [code = TETANUS SHOT of Medi cine (ADULT)] Future Scheduled 2021-08-06 Hepatitis C screening [employer] 10:35:35 (procedure) [code = of Medic ine 316966156] Future Scheduled 2021-08-06 Human immunodeficiency [employer] 10:35:35 virus screening of Medicine (procedure) [code = 863129425] Future Scheduled 2021-08-06 Screening for malignant [facility] [employer] Test 10:35:35 neoplasm of cervix of Medici ne (procedure) [code = 184464974] Future Scheduled 2021-08-06 Screening for malignant [facility] [employer] Test 10:35:35 neoplasm of lung of Medicine (procedure) [code = 343414713] Future Scheduled 2021-08-06 ZOSTER VACCINE (1 of 2) [employer] 10:35:35 [code = ZOSTER VACCINE of Me dicine (1 of 2)] Future Scheduled 2021-08-06 COVID-19 Vaccine (3 - [facility] [employer] Test 10:35:35 Inadvertent risk 4-dose of M edicine series) [code = COVID-19 Vaccine (3 - Inadvertent risk 4-dose series)] Future Scheduled 2021-08-06 Screening for malignant [facility] [employer] Test 10:35:35 neoplasm of breast of Medici ne (procedure) [code = 954100953] Future Scheduled 2021-08-06 FLU VACCINE > 6 MONTHS [employer] [facility] 10:35:35 [code = FLU VACCINE > 6 of M edicine MONTHS] Future Scheduled 2021-08-06 Pneumococcal Combined [facility] [employer] [facility] 10:35:35 (2 of 4 - PCV13) [code of Me dicine = Pneumococcal Combined (2 of 4 - PCV13)] Future Scheduled 2021-07-25 Screening for malignant [facility] [employer] Test 21:24:37 neoplasm of colon of Medicin e (procedure) [code = 362763847] Future Scheduled 2021-07-25 TETANUS SHOT (ADULT) [facility] [employer] Test 21:24:37 [code = TETANUS SHOT of Medi cine (ADULT)] Future Scheduled 2021-07-25 Hepatitis C screening [facility] [employer] Test 21:24:37 (procedure) [code = of Medic ine 074588327] Future Scheduled 2021-07-25 Human immunodeficiency [facility] [employer] Test 21:24:37 virus screening of Medicine (procedure) [code = 679374771] Future Scheduled 2021-07-25 Screening for malignant [facility] [employer] Test 21:24:37 neoplasm of cervix of Medici ne (procedure) [code = 443126254] Future Scheduled 2021-07-25 Screening for malignant [facility] [employer] Test 21:24:37 neoplasm of lung of Medicine (procedure) [code = 264047355] Future Scheduled 2021-07-25 ZOSTER VACCINE (1 of 2) [facility] [employer] Test 21:24:37 [code = ZOSTER VACCINE of Me dicine (1 of 2)] Future Scheduled 2021-07-25 COVID-19 Vaccine (3 - [facility] [employer] [facility] 21:24:37 Inadvertent risk 4-dose of M edicine series) [code = COVID-19 Vaccine (3 - Inadvertent risk 4-dose series)] Future Scheduled 2021-07-25 Screening for malignant [facility] [employer] Test 21:24:37 neoplasm of breast of Medici ne (procedure) [code = 407992694] Future Scheduled 2021-07-25 FLU VACCINE > 6 MONTHS [facility] [employer] [facility] 21:24:37 [code = FLU VACCINE > 6 of M edicine MONTHS] Future Scheduled 2021-07-25 Pneumococcal Combined [employer] [facility] 21:24:37 (2 of 4 - PCV13) [code of Me dicine = Pneumococcal Combined (2 of 4 - PCV13)] Future Scheduled 2021-07-23 Screening for malignant [facility] [employer] Test 09:55:51 neoplasm of colon of Medicin e (procedure) [code = 920550039] Future Scheduled 2021-07-23 TETANUS SHOT (ADULT) [facility] [employer] Test 09:55:51 [code = TETANUS SHOT of Medi cine (ADULT)] Future Scheduled 2021-07-23 Hepatitis C screening [facility] [employer] Test 09:55:51 (procedure) [code = of Medic ine 438887097] Future Scheduled 2021-07-23 Human immunodeficiency [facility] [employer] Test 09:55:51 virus screening of Medicine (procedure) [code = 919674277] Future Scheduled 2021-07-23 Screening for malignant [facility] [employer] Test 09:55:51 neoplasm of cervix of Medici ne (procedure) [code = 146594714] Future Scheduled 2021-07-23 Screening for malignant [facility] [employer] Test 09:55:51 neoplasm of lung of Medicine (procedure) [code = 468974018] Future Scheduled 2021-07-23 ZOSTER VACCINE (1 of 2) [facility] [employer] Test 09:55:51 [code = ZOSTER VACCINE of Me dicine (1 of 2)] Future Scheduled 2021-07-23 COVID-19 Vaccine (3 - [employer] [facility] 09:55:51 Inadvertent risk 4-dose of M edicine series) [code = COVID-19 Vaccine (3 - Inadvertent risk 4-dose series)] Future Scheduled 2021-07-23 Screening for malignant [employer] 09:55:51 neoplasm of breast of Medici ne (procedure) [code = 843051861] Future Scheduled 2021-07-23 FLU VACCINE > 6 MONTHS [facility] [employer] Test 09:55:51 [code = FLU VACCINE > 6 of M edicine MONTHS] Future Scheduled 2021-07-23 Pneumococcal Combined [employer] [facility] 09:55:51 (2 of 4 - PCV13) [code of Me dicine = Pneumococcal Combined (2 of 4 - PCV13)] Future Scheduled 2021-07-14 HEMOGLOBIN A1C [code = Ordered: [facility] [employer] Test 09:59:44 4548-4] 07/14/2021 of Medicine Future Scheduled 2021-07-14 Screening for malignant [facility] [employer] Test 08:59:52 neoplasm of colon of Medicin e (procedure) [code = 329983257] Future Scheduled 2021-07-14 TETANUS SHOT (ADULT) [facility] [employer] Test 08:59:52 [code = TETANUS SHOT of Medi cine (ADULT)] Future Scheduled 2021-07-14 Hepatitis C screening [facility] [employer] Test 08:59:52 (procedure) [code = of Medic ine 406203119] Future Scheduled 2021-07-14 Human immunodeficiency [facility] [employer] Test 08:59:52 virus screening of Medicine (procedure) [code = 130685325] Future Scheduled 2021-07-14 Screening for malignant [facility] [employer] Test 08:59:52 neoplasm of cervix of Medici ne (procedure) [code = 995993928] Future Scheduled 2021-07-14 Screening for malignant [employer] 08:59:52 neoplasm of lung of Medicine (procedure) [code = 362805662] Future Scheduled 2021-07-14 ZOSTER VACCINE (1 of 2) [facility] [employer] Test 08:59:52 [code = ZOSTER VACCINE of Me dicine (1 of 2)] Future Scheduled 2021-07-14 COVID-19 Vaccine (3 - [employer] [facility] 08:59:52 Inadvertent risk 4-dose of M edicine series) [code = COVID-19 Vaccine (3 - Inadvertent risk 4-dose series)] Future Scheduled 2021-07-14 Screening for malignant [facility] [employer] Test 08:59:52 neoplasm of breast of Medici ne (procedure) [code = 841681744] Future Scheduled 2021-07-14 FLU VACCINE > 6 MONTHS [employer] [facility] 08:59:52 [code = FLU VACCINE > 6 of M edicine MONTHS] Future Scheduled 2021-07-14 Pneumococcal Combined [employer] [facility] 08:59:52 (2 of 4 - PCV13) [code of Me dicine = Pneumococcal Combined (2 of 4 - PCV13)] Future Scheduled 2021-07-04 Screening for malignant [facility] Test 16:36:18 neoplasm of colon of Medicin e (procedure) [code = 796896388] Future Scheduled 2021-07-04 TETANUS SHOT (ADULT) [facility] [employer] Test 16:36:18 [code = TETANUS SHOT of Medi cine (ADULT)] Future Scheduled 2021-07-04 Hepatitis C screening [facility] Test 16:36:18 (procedure) [code = of Medic ine 724047381] Future Scheduled 2021-07-04 Human immunodeficiency [facility] [employer] Test 16:36:18 virus screening of Medicine (procedure) [code = 627577812] Future Scheduled 2021-07-04 Screening for malignant [facility] [employer] Test 16:36:18 neoplasm of cervix of Medici ne (procedure) [code = 057003111] Future Scheduled 2021-07-04 Screening for malignant [facility] [employer] Test 16:36:18 neoplasm of lung of Medicine (procedure) [code = 074467676] Future Scheduled 2021-07-04 ZOSTER VACCINE (1 of 2) [facility] [employer] Test 16:36:18 [code = ZOSTER VACCINE of Me dicine (1 of 2)] Future Scheduled 2021-07-04 COVID-19 Vaccine (3 - [facility] [employer] Test 16:36:18 Inadvertent risk 4-dose of M edicine series) [code = COVID-19 Vaccine (3 - Inadvertent risk 4-dose series)] Future Scheduled 2021-07-04 Screening for malignant [facility] [employer] Test 16:36:18 neoplasm of breast of Medici ne (procedure) [code = 729726461] Future Scheduled 2021-07-04 FLU VACCINE > 6 MONTHS [employer] [facility] 16:36:18 [code = FLU VACCINE > 6 of M edicine MONTHS] Future Scheduled 2021-07-04 Pneumococcal Combined [employer] [facility] 16:36:18 (2 of 4 - PCV13) [code of Me dicine = Pneumococcal Combined (2 of 4 - PCV13)] Future Scheduled 2021-06-18 MRI BRAIN W WO CONTRAST Expected: [facility] Test 00:00:00 [code = 90778-7] 06/18/2021, of Medicine Expires: 06/11/2022 Future Scheduled 2021-06-11 TSH [code = 77876-9] [facility] [employer] Test 08:58:41 of Medicine Future Scheduled 2021-06-11 T4 FREE [code = 3024-7] [facility] [employer] Test 08:58:41 of Medicine Future Scheduled 2021-06-11 Screening for malignant [facility] Test 08:22:31 neoplasm of colon of Medicin e (procedure) [code = 332069860] Future Scheduled 2021-06-11 TETANUS SHOT (ADULT) [facility] Test 08:22:31 [code = TETANUS SHOT of Medi cine (ADULT)] Future Scheduled 2021-06-11 Hepatitis C screening [facility] Test 08:22:31 (procedure) [code = of Medic ine 549228049] Future Scheduled 2021-06-11 Human immunodeficiency B [facility] Test 08:22:31 virus screening of Medicine (procedure) [code = 398255704] Future Scheduled 2021-06-11 Screening for malignant [facility] Test 08:22:31 neoplasm of cervix of Medici ne (procedure) [code = 095205029] Future Scheduled 2021-06-11 Screening for malignant [facility] Test 08:22:31 neoplasm of lung of Medicine (procedure) [code = 367187937] Future Scheduled 2021-06-11 ZOSTER VACCINE (1 of 2) [facility] Test 08:22:31 [code = ZOSTER VACCINE of Me dicine (1 of 2)] Future Scheduled 2021-06-11 COVID-19 Vaccine (3 - [facility] Test 08:22:31 Inadvertent risk 4-dose of M edicine series) [code = COVID-19 Vaccine (3 - Inadvertent risk 4-dose series)] Future Scheduled 2021-06-11 Screening for malignant [facility] Test 08:22:31 neoplasm of breast of Medici ne (procedure) [code = 854870415] Future Scheduled 2021-06-11 Pneumococcal Combined [facility] Test 08:22:31 (2 of 4 - PCV13) [code of Me dicine = Pneumococcal Combined (2 of 4 - PCV13)] Future Scheduled 2021-06-11 Screening for malignant [facility] [employer] Test 08:22:31 neoplasm of colon of Medicin e (procedure) [code = 961562272] Future Scheduled 2021-06-11 TETANUS SHOT (ADULT) [employer] 08:22:31 [code = TETANUS SHOT of Medi cine (ADULT)] Future Scheduled 2021-06-11 Hepatitis C screening [employer] [facility] 08:22:31 (procedure) [code = of Medic ine 127391460] Future Scheduled 2021-06-11 Human immunodeficiency [facility] [employer] Test 08:22:31 virus screening of Medicine (procedure) [code = 737497612] Future Scheduled 2021-06-11 Screening for malignant [facility] [employer] Test 08:22:31 neoplasm of cervix of Medici ne (procedure) [code = 943644513] Future Scheduled 2021-06-11 Screening for malignant [facility] [employer] Test 08:22:31 neoplasm of lung of Medicine (procedure) [code = 612264695] Future Scheduled 2021-06-11 ZOSTER VACCINE (1 of 2) [employer] 08:22:31 [code = ZOSTER VACCINE of Me dicine (1 of 2)] Future Scheduled 2021-06-11 COVID-19 Vaccine (3 - [facility] [employer] [facility] 08:22:31 Inadvertent risk 4-dose of M edicine series) [code = COVID-19 Vaccine (3 - Inadvertent risk 4-dose series)] Future Scheduled 2021-06-11 Screening for malignant [employer] 08:22:31 neoplasm of breast of Medici ne (procedure) [code = 426645109] Future Scheduled 2021-06-11 Pneumococcal Combined [employer] [facility] 08:22:31 (2 of 4 - PCV13) [code of Me dicine = Pneumococcal Combined (2 of 4 - PCV13)] Future Scheduled 2021-05-27 Screening for malignant [employer] 13:29:12 neoplasm of colon of Medicin e (procedure) [code = 437535505] Future Scheduled 2021-05-27 TETANUS SHOT (ADULT) [employer] 13:29:12 [code = TETANUS SHOT of Medi cine (ADULT)] Future Scheduled 2021-05-27 Hepatitis C screening [employer] [facility] 13:29:12 (procedure) [code = of Medic ine 508705951] Future Scheduled 2021-05-27 Human immunodeficiency [facility] [employer] [facility] 13:29:12 virus screening of Medicine (procedure) [code = 850283090] Future Scheduled 2021-05-27 Screening for malignant [employer] 13:29:12 neoplasm of cervix of Medici ne (procedure) [code = 976430504] Future Scheduled 2021-05-27 Screening for malignant [facility] [employer] Test 13:29:12 neoplasm of lung of Medicine (procedure) [code = 061110552] Future Scheduled 2021-05-27 ZOSTER VACCINE (1 of 2) [facility] [employer] Test 13:29:12 [code = ZOSTER VACCINE of Me dicine (1 of 2)] Future Scheduled 2021-05-27 COVID-19 Vaccine (3 - [employer] [facility] 13:29:12 Inadvertent risk 4-dose of M edicine series) [code = COVID-19 Vaccine (3 - Inadvertent risk 4-dose series)] Future Scheduled 2021-05-27 Screening for malignant [facility] [employer] Test 13:29:12 neoplasm of breast of Medici ne (procedure) [code = 830527509] Future Scheduled 2021-05-27 Pneumococcal Combined [employer] [facility] 13:29:12 (2 of 4 - PCV13) [code of Me dicine = Pneumococcal Combined (2 of 4 - PCV13)] Future Scheduled 2021-05-26 Screening for malignant [employer] 10:41:59 neoplasm of colon of Medicin e (procedure) [code = 096854369] Future Scheduled 2021-05-26 TETANUS SHOT (ADULT) [employer] 10:41:59 [code = TETANUS SHOT of Medi cine (ADULT)] Future Scheduled 2021-05-26 Hepatitis C screening [employer] [facility] 10:41:59 (procedure) [code = of Medic ine 777709845] Future Scheduled 2021-05-26 Human immunodeficiency [facility] [employer] [facility] 10:41:59 virus screening of Medicine (procedure) [code = 963047599] Future Scheduled 2021-05-26 Screening for malignant [employer] 10:41:59 neoplasm of cervix of Medici ne (procedure) [code = 850840518] Future Scheduled 2021-05-26 Screening for malignant [employer] 10:41:59 neoplasm of lung of Medicine (procedure) [code = 682149165] Future Scheduled 2021-05-26 ZOSTER VACCINE (1 of 2) [facility] [employer] Test 10:41:59 [code = ZOSTER VACCINE of Me dicine (1 of 2)] Future Scheduled 2021-05-26 COVID-19 Vaccine (3 - [facility] [employer] [facility] 10:41:59 Inadvertent risk 4-dose of M edicine series) [code = COVID-19 Vaccine (3 - Inadvertent risk 4-dose series)] Future Scheduled 2021-05-26 Screening for malignant [facility] Test 10:41:59 neoplasm of breast of Medici ne (procedure) [code = 531824117] Future Scheduled 2021-05-26 Pneumococcal Combined [employer] [facility] 10:41:59 (2 of 4 - PCV13) [code of Me dicine = Pneumococcal Combined (2 of 4 - PCV13)] Future Scheduled 2021-05-26 SIX MINUTE WALK TEST 1 Occurrences [facility] Test 10:30:49 [code = 06606] starting of Medicine 05/26/2021 until 05/26/2022 Future Scheduled 2021-05-26 COMPLETE PFT WITHOUT 1 Occurrences [employer] Test 10:30:49 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 = starting of Me dicine 23664] 05/26/2021 until 05/26/2022 Future Scheduled 2021-05-25 T4 FREE [code = 3024-7] Ordered: [facility] [employer] Test 12:30:41 05/25/2021 of Medicine Future Scheduled 2021-05-25 TSH [code = 68403-4] Ordered: [facility] [employer] Test 12:30:41 05/25/2021 of Medicine Future Scheduled 2021-05-25 COMPREHENSIVE METABOLIC Ordered: [facility] Test 12:30:41 PANEL [code = 51958-4] 05/25/2021 of Me dicine Future Scheduled 2021-05-25 RENIN ACTIVITY [code = Ordered: [facility] [employer] Test 12:30:41 2915-7] 05/25/2021 of Medicine Future Scheduled 2021-05-25 DHEA-SULFATE [code = Ordered: [facility] Test 12:30:41 2191-5] 05/25/2021 of Medicine Future Scheduled 2021-05-21 Screening for malignant [employer] [facility] 09:49:07 neoplasm of colon of Medicin e (procedure) [code = 778596036] Future Scheduled 2021-05-21 Pneumococcal Combined [employer] [facility] 09:49:07 (1 of 4 - PCV13) [code of Me dicine = Pneumococcal Combined (1 of 4 - PCV13)] Future Scheduled 2021-05-21 TETANUS SHOT (ADULT) [employer] [facility] 09:49:07 [code = TETANUS SHOT of Medi cine (ADULT)] Future Scheduled 2021-05-21 Hepatitis C screening [employer] [facility] 09:49:07 (procedure) [code = of Medic ine 187864124] Future Scheduled 2021-05-21 Human immunodeficiency B [facility] [employer] Test 09:49:07 virus screening of Medicine (procedure) [code = 077484702] Future Scheduled 2021-05-21 Screening for malignant [facility] [employer] Test 09:49:07 neoplasm of cervix of Medici ne (procedure) [code = 332986016] Future Scheduled 2021-05-21 ZOSTER VACCINE (1 of 2) [facility] [employer] Test 09:49:07 [code = ZOSTER VACCINE of Me dicine (1 of 2)] Future Scheduled 2021-05-21 COVID-19 Vaccine (3 - [facility] [employer] Test 09:49:07 Inadvertent risk 4-dose of M edicine series) [code = COVID-19 Vaccine (3 - Inadvertent risk 4-dose series)] Future Scheduled 2021-05-21 Screening for malignant [facility] [employer] Test 09:49:07 neoplasm of breast of Medici ne (procedure) [code = 096468284] Future Scheduled 2021-05-21 CT CHEST ABDOMEN PELVIS 1 Occurrences [facility] [employer] Test 08:23:07 W CONTRAST [code = [place] [address]-0] 05/21/2021 until 05/21/2022 Future Scheduled 2021-04-30 Screening for malignant [employer] 08:34:28 neoplasm of colon of Medicin e (procedure) [code = 910678797] Future Scheduled 2021-04-30 Pneumococcal Combined [employer] [facility] 08:34:28 (1 of 4 - PCV13) [code of Me dicine = Pneumococcal Combined (1 of 4 - PCV13)] Future Scheduled 2021-04-30 TETANUS SHOT (ADULT) [employer] [facility] 08:34:28 [code = TETANUS SHOT of Medi cine (ADULT)] Future Scheduled 2021-04-30 Hepatitis C screening [employer] [facility] 08:34:28 (procedure) [code = of Medic ine 672174170] Future Scheduled 2021-04-30 Human immunodeficiency [employer] Test 08:34:28 virus screening of Medicine (procedure) [code = 506102607] Future Scheduled 2021-04-30 Screening for malignant [employer] 08:34:28 neoplasm of cervix of Medici ne (procedure) [code = 872058104] Future Scheduled 2021-04-30 ZOSTER VACCINE (1 of 2) [facility] [employer] Test 08:34:28 [code = ZOSTER VACCINE of Me dicine (1 of 2)] Future Scheduled 2021-04-30 COVID-19 Vaccine (3 - [employer] [facility] 08:34:28 Inadvertent risk 4-dose of M edicine series) [code = COVID-19 Vaccine (3 - Inadvertent risk 4-dose series)] Future Scheduled 2021-04-30 Screening for malignant [employer] 08:34:28 neoplasm of breast of Medici ne (procedure) [code = 422365964] Future Scheduled 2021-04-30 Screening for malignant [employer] 08:34:28 neoplasm of colon of Medicin e (procedure) [code = 769328694] Future Scheduled 2021-04-30 Pneumococcal Combined [employer] [facility] 08:34:28 (1 of 4 - PCV13) [code of Me dicine = Pneumococcal Combined (1 of 4 - PCV13)] Future Scheduled 2021-04-30 TETANUS SHOT (ADULT) [employer] [facility] 08:34:28 [code = TETANUS SHOT of Medi cine (ADULT)] Future Scheduled 2021-04-30 Hepatitis C screening [employer] [facility] 08:34:28 (procedure) [code = of Medic ine 724492587] Future Scheduled 2021-04-30 Human immunodeficiency [employer] Test 08:34:28 virus screening of Medicine (procedure) [code = 442607707] Future Scheduled 2021-04-30 Screening for malignant [facility] [employer] Test 08:34:28 neoplasm of cervix of Medici ne (procedure) [code = 217857280] Future Scheduled 2021-04-30 ZOSTER VACCINE (1 of 2) [facility] [employer] Test 08:34:28 [code = ZOSTER VACCINE of Me dicine (1 of 2)] Future Scheduled 2021-04-30 COVID-19 Vaccine (3 - [facility] [employer] [facility] 08:34:28 Inadvertent risk 4-dose of M edicine series) [code = COVID-19 Vaccine (3 - Inadvertent risk 4-dose series)] Future Scheduled 2021-04-30 Screening for malignant [facility] [employer] Test 08:34:28 neoplasm of breast of Medici ne (procedure) [code = 588156549] Future Scheduled 2021-04-20 ACTH [code = 2141-0] 1 Occurrences [employer] Test 08:52:47 starting of Medicine 04/20/2021 until 10/18/2021 Future Scheduled 2021-04-20 CORTISOL - AM SPECIMEN 1 Occurrences [facility] Test 08:52:47 [code = 9813-7] starting of Medicine 04/20/2021 until 10/18/2021 Future Scheduled 2021-04-20 DEXAMETHASONE, SERUM 1 Occurrences [facility] [facility] 08:52:47 [code = 44780-5] starting of Medicine 04/20/2021 until 10/18/2021 Future Scheduled 2021-04-20 SALIVARY CORTISOL [code 1 Occurrences [facility] [employer] Test 08:52:47 = NOCPT] starting of Medicine 04/20/2021 until 10/18/2021 Future Scheduled 2021-04-20 POTASSIUM [code = 1 Occurrences [facility] [employer] Test 08:52:47 2823-3] starting of Medicine 04/20/2021 until 10/18/2021 Future Scheduled 2021-04-20 RENIN ACTIVITY [code = 1 Occurrences [facility] [employer] Test 08:52:47 2915-7] starting of Medicine 04/20/2021 until 10/18/2021 Future Scheduled 2021-04-20 TSH [code = 52017-1] Ordered: [employer] Test 08:49:34 04/20/2021 of Medicine Future Scheduled 2021-04-20 T4 FREE [code = 3024-7] Ordered: [employer] Test 08:49:34 04/20/2021 of Medicine Future Scheduled 2021-04-20 T3 [code = 3053-6] Ordered: [employer] Test 08:49:34 04/20/2021 of Medicine Future Scheduled 2021-04-20 RENIN ACTIVITY [code = Ordered: [facility] Test 08:49:34 2915-7] 04/20/2021 of Medicine Future Scheduled 2021-04-20 COMPREHENSIVE METABOLIC Ordered: [facility] Test 08:49:34 PANEL [code = 57548-2] 04/20/2021 of Me dicine Future Scheduled 2021-04-20 METANEPHRINES, Ordered: [facility] [employer] Test 08:49:34 PHEOCHROMOCYT [code = 04/20/2021 of Med icine NOCPT] Future Scheduled 2021-04-20 Screening for malignant [facility] Test 07:58:07 neoplasm of colon of Medicin e (procedure) [code = 285180140] Future Scheduled 2021-04-20 Pneumococcal Combined [facility] [employer] Test 07:58:07 (1 of 4 - PCV13) [code of Me dicine = Pneumococcal Combined (1 of 4 - PCV13)] Future Scheduled 2021-04-20 TETANUS SHOT (ADULT) [facility] [employer] Test 07:58:07 [code = TETANUS SHOT of Medi cine (ADULT)] Future Scheduled 2021-04-20 Hepatitis C screening [facility] Test 07:58:07 (procedure) [code = of Medic ine 846834538] Future Scheduled 2021-04-20 Human immunodeficiency B [facility] Test 07:58:07 virus screening of Medicine (procedure) [code = 860314317] Future Scheduled 2021-04-20 Screening for malignant [facility] Test 07:58:07 neoplasm of cervix of Medici ne (procedure) [code = 002447889] Future Scheduled 2021-04-20 ZOSTER VACCINE (1 of 2) [facility] [employer] Test 07:58:07 [code = ZOSTER VACCINE of Me dicine (1 of 2)] Future Scheduled 2021-04-20 COVID-19 Vaccine (3 - [facility] Test 07:58:07 Inadvertent risk 4-dose of M edicine series) [code = COVID-19 Vaccine (3 - Inadvertent risk 4-dose series)] Future Scheduled 2021-04-20 Screening for malignant [facility] Test 07:58:07 neoplasm of breast of Medici ne (procedure) [code = 006029073] Future Scheduled 2021-04-09 Screening for malignant [facility] Test 08:14:44 neoplasm of colon of Medicin e (procedure) [code = 775559923] Future Scheduled 2021-04-09 Pneumococcal Combined [employer] 08:14:44 (1 of 4 - PCV13) [code of Me dicine = Pneumococcal Combined (1 of 4 - PCV13)] Future Scheduled 2021-04-09 TETANUS SHOT (ADULT) [employer] 08:14:44 [code = TETANUS SHOT of Medi cine (ADULT)] Future Scheduled 2021-04-09 Hepatitis C screening [employer] 08:14:44 (procedure) [code = of Medic ine 168024042] Future Scheduled 2021-04-09 Human immunodeficiency [employer] 08:14:44 virus screening of Medicine (procedure) [code = 418208135] Future Scheduled 2021-04-09 Screening for malignant [facility] [employer] Test 08:14:44 neoplasm of cervix of Medici ne (procedure) [code = 377529522] Future Scheduled 2021-04-09 ZOSTER VACCINE (1 of 2) [employer] 08:14:44 [code = ZOSTER VACCINE of Me dicine (1 of 2)] Future Scheduled 2021-04-09 COVID-19 Vaccine (3 - [employer] [facility] 08:14:44 Inadvertent risk 4-dose of M edicine series) [code = COVID-19 Vaccine (3 - Inadvertent risk 4-dose series)] Future Scheduled 2021-04-09 Screening for malignant [facility] [employer] Test 08:14:44 neoplasm of breast of Medici ne (procedure) [code = 399907604] Future Scheduled 2021-04-09 Screening for malignant [facility] [employer] Test 08:14:44 neoplasm of colon of Medicin e (procedure) [code = 898361209] Future Scheduled 2021-04-09 Pneumococcal Combined [employer] [facility] 08:14:44 (1 of 4 - PCV13) [code of Me dicine = Pneumococcal Combined (1 of 4 - PCV13)] Future Scheduled 2021-04-09 TETANUS SHOT (ADULT) [employer] [facility] 08:14:44 [code = TETANUS SHOT of Medi cine (ADULT)] Future Scheduled 2021-04-09 Hepatitis C screening [employer] [facility] 08:14:44 (procedure) [code = of Medic ine 181766363] Future Scheduled 2021-04-09 Human immunodeficiency [employer] [facility] 08:14:44 virus screening of Medicine (procedure) [code = 164062848] Future Scheduled 2021-04-09 Screening for malignant [facility] Test 08:14:44 neoplasm of cervix of Medici ne (procedure) [code = 475735505] Future Scheduled 2021-04-09 ZOSTER VACCINE (1 of 2) [facility] Test 08:14:44 [code = ZOSTER VACCINE of Me dicine (1 of 2)] Future Scheduled 2021-04-09 COVID-19 Vaccine (3 - [facility] Test 08:14:44 Inadvertent risk 4-dose of M edicine series) [code = COVID-19 Vaccine (3 - Inadvertent risk 4-dose series)] Future Scheduled 2021-04-09 Screening for malignant [facility] Test 08:14:44 neoplasm of breast of Medici ne (procedure) [code = 502841039] Future Scheduled 2021-03-15 Screening for malignant [facility] Test 10:31:14 neoplasm of colon of Medicin e (procedure) [code = 125389498] Future Scheduled 2021-03-15 Pneumococcal Combined [facility] Test 10:31:14 (1 of 4 - PCV13) [code of Me dicine = Pneumococcal Combined (1 of 4 - PCV13)] Future Scheduled 2021-03-15 TETANUS SHOT (ADULT) [facility] Test 10:31:14 [code = TETANUS SHOT of Medi cine (ADULT)] Future Scheduled 2021-03-15 Hepatitis C screening [facility] Test 10:31:14 (procedure) [code = of Medic ine 369923144] Future Scheduled 2021-03-15 Human immunodeficiency [facility] Test 10:31:14 virus screening of Medicine (procedure) [code = 505888227] Future Scheduled 2021-03-15 Screening for malignant [facility] Test 10:31:14 neoplasm of cervix of Medici ne (procedure) [code = 262005638] Future Scheduled 2021-03-15 ZOSTER VACCINE (1 of 2) [facility] [employer] Test 10:31:14 [code = ZOSTER VACCINE of Me dicine (1 of 2)] Future Scheduled 2021-03-15 COVID-19 Vaccine (3 - [facility] Test 10:31:14 Inadvertent risk 4-dose of M edicine series) [code = COVID-19 Vaccine (3 - Inadvertent risk 4-dose series)] Future Scheduled 2021-03-15 Screening for malignant [facility] Test 10:31:14 neoplasm of breast of Medici ne (procedure) [code = 655605035] Future Scheduled 2021-03-15 COMPLETE PFT WITH 1 Occurrences [facility] Test 10:17:47 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 = starting of Me dicine 47740] 03/15/2021 until 03/16/2022 Future Scheduled 2021-03-12 FLU VACCINE > 6 MONTHS [facility] [employer] Test 16:50:15 [code = FLU VACCINE > 6 of M edicine MONTHS] Future Scheduled 2021-03-12 Screening for malignant [facility] Test 13:45:01 neoplasm of colon of Medicin e (procedure) [code = 562486830] Future Scheduled 2021-03-12 Pneumococcal Combined [facility] Test 13:45:01 (1 of 4 - PCV13) [code of Me dicine = Pneumococcal Combined (1 of 4 - PCV13)] Future Scheduled 2021-03-12 TETANUS SHOT (ADULT) [facility] [employer] Test 13:45:01 [code = TETANUS SHOT of Medi cine (ADULT)] Future Scheduled 2021-03-12 Hepatitis C screening [facility] Test 13:45:01 (procedure) [code = of Medic ine 040528857] Future Scheduled 2021-03-12 Human immunodeficiency [facility] Test 13:45:01 virus screening of Medicine (procedure) [code = 016793570] Future Scheduled 2021-03-12 Screening for malignant [facility] Test 13:45:01 neoplasm of cervix of Medici ne (procedure) [code = 927018453] Future Scheduled 2021-03-12 ZOSTER VACCINE (1 of 2) [facility] [employer] Test 13:45:01 [code = ZOSTER VACCINE of Me dicine (1 of 2)] Future Scheduled 2021-03-12 COVID-19 Vaccine (3 - [facility] Test 13:45:01 Inadvertent risk 4-dose of M edicine series) [code = COVID-19 Vaccine (3 - Inadvertent risk 4-dose series)] Future Scheduled 2021-03-12 Screening for malignant [facility] Test 13:45:01 neoplasm of breast of Medici ne (procedure) [code = 557460075] Future Scheduled 2021-03-12 Screening for malignant [employer] [facility] 08:11:38 neoplasm of colon of Medicin e (procedure) [code = 104670148] Future Scheduled 2021-03-12 Pneumococcal Combined [employer] [facility] 08:11:38 (1 of 4 - PCV13) [code of Me dicine = Pneumococcal Combined (1 of 4 - PCV13)] Future Scheduled 2021-03-12 COVID-19 Vaccine (1) [employer] [facility] 08:11:38 [code = COVID-19 of Medicine Vaccine (1)] Future Scheduled 2021-03-12 TETANUS SHOT (ADULT) [employer] Test 08:11:38 [code = TETANUS SHOT of Medi cine (ADULT)] Future Scheduled 2021-03-12 Hepatitis C screening [employer] [facility] 08:11:38 (procedure) [code = of Medic ine 889768895] Future Scheduled 2021-03-12 Human immunodeficiency [facility] [employer] Test 08:11:38 virus screening of Medicine (procedure) [code = 812462393] Future Scheduled 2021-03-12 Screening for malignant [facility] [employer] Test 08:11:38 neoplasm of cervix of Medici ne (procedure) [code = 899573332] Future Scheduled 2021-03-12 ZOSTER VACCINE (1 of 2) [facility] [employer] Test 08:11:38 [code = ZOSTER VACCINE of Me dicine (1 of 2)] Future Scheduled 2021-03-12 FLU VACCINE > 6 MONTHS [employer] [facility] 08:11:38 [code = FLU VACCINE > 6 of M edicine MONTHS] Future Scheduled 2021-03-12 Screening for malignant [facility] [employer] Test 08:11:38 neoplasm of breast of Medici ne (procedure) [code = 899490500] Future Scheduled 2021-02-19 Screening for malignant [facility] [employer] Test 08:25:58 neoplasm of colon of Medicin e (procedure) [code = 665011364] Future Scheduled 2021-02-19 Pneumococcal Combined [employer] [facility] 08:25:58 (1 of 4 - PCV13) [code of Me dicine = Pneumococcal Combined (1 of 4 - PCV13)] Future Scheduled 2021-02-19 COVID-19 Vaccine (1) [employer] [facility] 08:25:58 [code = COVID-19 of Medicine Vaccine (1)] Future Scheduled 2021-02-19 TETANUS SHOT (ADULT) [employer] Test 08:25:58 [code = TETANUS SHOT of Medi cine (ADULT)] Future Scheduled 2021-02-19 Hepatitis C screening [employer] [facility] 08:25:58 (procedure) [code = of Medic ine 742550025] Future Scheduled 2021-02-19 Human immunodeficiency [facility] [employer] Test 08:25:58 virus screening of Medicine (procedure) [code = 880477965] Future Scheduled 2021-02-19 Screening for malignant [employer] [facility] 08:25:58 neoplasm of cervix of Medici ne (procedure) [code = 727639626] Future Scheduled 2021-02-19 ZOSTER VACCINE (1 of 2) [employer] [facility] 08:25:58 [code = ZOSTER VACCINE of Me dicine (1 of 2)] Future Scheduled 2021-02-19 FLU VACCINE > 6 MONTHS [employer] [facility] 08:25:58 [code = FLU VACCINE > 6 of M edicine MONTHS] Future Scheduled 2021-02-19 Screening for malignant [employer] [facility] 08:25:58 neoplasm of breast of Medici ne (procedure) [code = 507866452] Future Scheduled 2021-02-19 Screening for malignant [employer] [facility] 08:25:58 neoplasm of colon of Medicin e (procedure) [code = 912150808] Future Scheduled 2021-02-19 Pneumococcal Combined [employer] [facility] 08:25:58 (1 of 4 - PCV13) [code of Me dicine = Pneumococcal Combined (1 of 4 - PCV13)] Future Scheduled 2021-02-19 COVID-19 Vaccine (1) [employer] [facility] 08:25:58 [code = COVID-19 of Medicine Vaccine (1)] Future Scheduled 2021-02-19 TETANUS SHOT (ADULT) [employer] [facility] 08:25:58 [code = TETANUS SHOT of Medi cine (ADULT)] Future Scheduled 2021-02-19 Hepatitis C screening [employer] [facility] 08:25:58 (procedure) [code = of Medic ine 991862651] Future Scheduled 2021-02-19 Human immunodeficiency [employer] Test 08:25:58 virus screening of Medicine (procedure) [code = 698745499] Future Scheduled 2021-02-19 Screening for malignant [facility] [employer] Test 08:25:58 neoplasm of cervix of Medici ne (procedure) [code = 881028703] Future Scheduled 2021-02-19 ZOSTER VACCINE (1 of 2) [facility] Test 08:25:58 [code = ZOSTER VACCINE of Me dicine (1 of 2)] Future Scheduled 2021-02-19 FLU VACCINE > 6 MONTHS [facility] [employer] Test 08:25:58 [code = FLU VACCINE > 6 of M edicine MONTHS] Future Scheduled 2021-02-19 Screening for malignant [facility] Test 08:25:58 neoplasm of breast of Medici ne (procedure) [code = 450213936] Future Scheduled 2021-02-10 Screening for malignant [facility] Test 08:44:10 neoplasm of colon of Medicin e (procedure) [code = 227522721] Future Scheduled 2021-02-10 BCM AMB Pneumococcal [facility] Test 08:44:10 Combined (testing) (1 of Med icine of 4 - PCV13) [code = BCM AMB Pneumococcal Combined (testing) (1 of 4 - PCV13)] Future Scheduled 2021-02-10 COVID-19 Vaccine (1) [facility] Test 08:44:10 [code = COVID-19 of Medicine Vaccine (1)] Future Scheduled 2021-02-10 TETANUS SHOT (ADULT) [facility] Test 08:44:10 [code = TETANUS SHOT of Medi cine (ADULT)] Future Scheduled 2021-02-10 Hepatitis C screening [facility] Test 08:44:10 (procedure) [code = of Medic ine 462817600] Future Scheduled 2021-02-10 Human immunodeficiency [facility] Test 08:44:10 virus screening of Medicine (procedure) [code = 982916789] Future Scheduled 2021-02-10 Screening for malignant [facility] Test 08:44:10 neoplasm of cervix of Medici ne (procedure) [code = 376369840] Future Scheduled 2021-02-10 ZOSTER VACCINE (1 of 2) [facility] Test 08:44:10 [code = ZOSTER VACCINE of Me dicine (1 of 2)] Future Scheduled 2021-02-10 FLU VACCINE > 6 MONTHS [facility] [employer] Test 08:44:10 [code = FLU VACCINE > 6 of M edicine MONTHS] Future Scheduled 2021-02-10 Screening for malignant [facility] Test 08:44:10 neoplasm of breast of Medici ne (procedure) [code = 613779217] Future Scheduled 2021-02-09 CERVICAL/THORACIC 1 Occurrences [employer] Test 10:27:18 MEDIAL BRANCH BLOCK - starting of Med icine LEVEL 1&2 [code = 02/09/2021 until 05755] 02/09/2022 Future Scheduled 2021-02-09 XR THORACIC SPINE 1 Occurrences [employer] Test 10:19:56 (COMPLETE) [code = [place] [address]-9] 02/09/2021 until 02/09/2022 Future Scheduled 2021-01-29 CT CHEST ABDOMEN PELVIS 1 Occurrences [facility] [employer] Test 08:27:16 W CONTRAST [code = [place] [address]-7] 01/29/2021 until 01/29/2022 Future Scheduled 2021-01-29 Screening for malignant [facility] Test 07:43:48 neoplasm of colon of Medicin e (procedure) [code = 532495410] Future Scheduled 2021-01-29 COVID-19 Vaccine (1) [facility] [employer] Test 07:43:48 [code = COVID-19 of Medicine Vaccine (1)] Future Scheduled 2021-01-29 TETANUS SHOT (ADULT) [employer] Test 07:43:48 [code = TETANUS SHOT of Medi cine (ADULT)] Future Scheduled 2021-01-29 Hepatitis C screening [facility] Test 07:43:48 (procedure) [code = of Medic ine 808871667] Future Scheduled 2021-01-29 Human immunodeficiency B [facility] [employer] Test 07:43:48 virus screening of Medicine (procedure) [code = 226703308] Future Scheduled 2021-01-29 Screening for malignant [facility] Test 07:43:48 neoplasm of cervix of Medici ne (procedure) [code = 198068738] Future Scheduled 2021-01-29 ZOSTER VACCINE (1 of 2) [facility] [employer] Test 07:43:48 [code = ZOSTER VACCINE of Me dicine (1 of 2)] Future Scheduled 2021-01-29 FLU VACCINE > 6 MONTHS [facility] [employer] Test 07:43:48 [code = FLU VACCINE > 6 of M edicine MONTHS] Future Scheduled 2021-01-29 Screening for malignant [facility] Test 07:43:48 neoplasm of breast of Medici ne (procedure) [code = 796327204] Future Scheduled 2021-01-29 Screening for malignant [employer] [facility] 07:43:48 neoplasm of colon of Medicin e (procedure) [code = 695424914] Future Scheduled 2021-01-29 COVID-19 Vaccine (1) [employer] [facility] 07:43:48 [code = COVID-19 of Medicine Vaccine (1)] Future Scheduled 2021-01-29 TETANUS SHOT (ADULT) [employer] Test 07:43:48 [code = TETANUS SHOT of Medi cine (ADULT)] Future Scheduled 2021-01-29 Hepatitis C screening [employer] [facility] 07:43:48 (procedure) [code = of Medic ine 393556690] Future Scheduled 2021-01-29 Human immunodeficiency [employer] Test 07:43:48 virus screening of Medicine (procedure) [code = 585911478] Future Scheduled 2021-01-29 Screening for malignant [facility] [employer] Test 07:43:48 neoplasm of cervix of Medici ne (procedure) [code = 865149541] Future Scheduled 2021-01-29 ZOSTER VACCINE (1 of 2) [facility] [employer] Test 07:43:48 [code = ZOSTER VACCINE of Ga dicine (1 of 2)] Future Scheduled 2021-01-29 FLU VACCINE > 6 MONTHS [employer] Test 07:43:48 [code = FLU VACCINE > 6 of M edicine MONTHS] Future Scheduled 2021-01-29 Screening for malignant [facility] [employer] Test 07:43:48 neoplasm of breast of Medici ne (procedure) [code = 363085284] Future Scheduled 2021-01-08 Screening for malignant [employer] Test 08:55:51 neoplasm of colon of Medicin e (procedure) [code = 903264839] Future Scheduled 2021-01-08 COVID-19 Vaccine (1) [employer] Test 08:55:51 [code = COVID-19 of Medicine Vaccine (1)] Future Scheduled 2021-01-08 TETANUS SHOT (ADULT) [employer] Test 08:55:51 [code = TETANUS SHOT of Medi cine (ADULT)] Future Scheduled 2021-01-08 Hepatitis C screening [employer] Test 08:55:51 (procedure) [code = of Medic ine 373995678] Future Scheduled 2021-01-08 Human immunodeficiency [employer] Test 08:55:51 virus screening of Medicine (procedure) [code = 978846114] Future Scheduled 2021-01-08 Screening for malignant [facility] [employer] Test 08:55:51 neoplasm of cervix of Medici ne (procedure) [code = 511856599] Future Scheduled 2021-01-08 ZOSTER VACCINE (1 of 2) [facility] [employer] Test 08:55:51 [code = ZOSTER VACCINE of Me dicine (1 of 2)] Future Scheduled 2021-01-08 FLU VACCINE > 6 MONTHS [employer] Test 08:55:51 [code = FLU VACCINE > 6 of M edicine MONTHS] Future Scheduled 2021-01-08 Screening for malignant [facility] [employer] Test 08:55:51 neoplasm of breast of Medici ne (procedure) [code = 243683637] Future Scheduled 2021-01-07 COMPREHENSIVE METABOLIC Expected: [facility] [employer] Test 00:00:00 PANEL [code = 32035-3] 01/07/2021 of Me dicine (Approximate), Expires: 02/07/2021 Future Scheduled 2021-01-07 CBC W/AUTO DIFF WITH Expected: [facility] Test 00:00:00 PLATELETS [code = 01/07/2021 of Medicin e 06807-9] (Approximate), Expires: 02/07/2021 Future Scheduled 2020-12-18 Screening for malignant [facility] Test 08:38:12 neoplasm of colon of Medicin e (procedure) [code = 221026911] Future Scheduled 2020-12-18 COVID-19 Vaccine (1) [facility] Test 08:38:12 [code = COVID-19 of Medicine Vaccine (1)] Future Scheduled 2020-12-18 TETANUS SHOT (ADULT) [facility] Test 08:38:12 [code = TETANUS SHOT of Medi cine (ADULT)] Future Scheduled 2020-12-18 Hepatitis C screening [facility] Test 08:38:12 (procedure) [code = of Medic ine 729061173] Future Scheduled 2020-12-18 Human immunodeficiency [facility] Test 08:38:12 virus screening of Medicine (procedure) [code = 891156908] Future Scheduled 2020-12-18 Screening for malignant [facility] Test 08:38:12 neoplasm of cervix of Medici ne (procedure) [code = 648796464] Future Scheduled 2020-12-18 ZOSTER VACCINE (1 of 2) [facility] Test 08:38:12 [code = ZOSTER VACCINE of Me dicine (1 of 2)] Future Scheduled 2020-12-18 FLU VACCINE > 6 MONTHS [employer] Test 08:38:12 [code = FLU VACCINE > 6 of M edicine MONTHS] Future Scheduled 2020-12-18 Screening for malignant [facility] [employer] Test 08:38:12 neoplasm of breast of Medici ne (procedure) [code = 531973315] Future Scheduled 2020-12-18 Screening for malignant [facility] [employer] Test 08:38:12 neoplasm of colon of Medicin e (procedure) [code = 507365804] Future Scheduled 2020-12-18 COVID-19 Vaccine (1) [employer] [facility] Test 08:38:12 [code = COVID-19 of Medicine Vaccine (1)] Future Scheduled 2020-12-18 TETANUS SHOT (ADULT) [employer] [facility] Test 08:38:12 [code = TETANUS SHOT of Medi cine (ADULT)] Future Scheduled 2020-12-18 Hepatitis C screening [facility] Test 08:38:12 (procedure) [code = of Medic ine 059503547] Future Scheduled 2020-12-18 Human immunodeficiency [facility] Test 08:38:12 virus screening of Medicine (procedure) [code = 976248163] Future Scheduled 2020-12-18 Screening for malignant [facility] [employer] Test 08:38:12 neoplasm of cervix of Medici ne (procedure) [code = 223739129] Future Scheduled 2020-12-18 ZOSTER VACCINE (1 of 2) [facility] [employer] Test 08:38:12 [code = ZOSTER VACCINE of Me dicine (1 of 2)] Future Scheduled 2020-12-18 FLU VACCINE > 6 MONTHS [employer] Test 08:38:12 [code = FLU VACCINE > 6 of M edicine MONTHS] Future Scheduled 2020-12-18 Screening for malignant [facility] [employer] Test 08:38:12 neoplasm of breast of Medici ne (procedure) [code = 183109739] Future Scheduled 2020-12-18 Screening for malignant [facility] [employer] Test 08:38:12 neoplasm of colon of Medicin e (procedure) [code = 304808626] Future Scheduled 2020-12-18 COVID-19 Vaccine (1) [employer] Test 08:38:12 [code = COVID-19 of Medicine Vaccine (1)] Future Scheduled 2020-12-18 TETANUS SHOT (ADULT) [employer] Test 08:38:12 [code = TETANUS SHOT of Medi cine (ADULT)] Future Scheduled 2020-12-18 Hepatitis C screening [employer] Test 08:38:12 (procedure) [code = of Medic ine 856366133] Future Scheduled 2020-12-18 Human immunodeficiency [employer] Test 08:38:12 virus screening of Medicine (procedure) [code = 312557959] Future Scheduled 2020-12-18 Screening for malignant [employer] Test 08:38:12 neoplasm of cervix of Medici ne (procedure) [code = 055997602] Future Scheduled 2020-12-18 ZOSTER VACCINE (1 of 2) [employer] Test 08:38:12 [code = ZOSTER VACCINE of Me dicine (1 of 2)] Future Scheduled 2020-12-18 FLU VACCINE > 6 MONTHS [employer] Test 08:38:12 [code = FLU VACCINE > 6 of M edicine MONTHS] Future Scheduled 2020-12-18 Screening for malignant [facility] [employer] Test 08:38:12 neoplasm of breast of Medici ne (procedure) [code = 556159109] Future Scheduled 2020-12-18 Screening for malignant [facility] [employer] Test 08:38:12 neoplasm of colon of Medicin e (procedure) [code = 663212742] Future Scheduled 2020-12-18 COVID-19 Vaccine (1) [employer] Test 08:38:12 [code = COVID-19 of Medicine Vaccine (1)] Future Scheduled 2020-12-18 TETANUS SHOT (ADULT) [employer] Test 08:38:12 [code = TETANUS SHOT of Medi cine (ADULT)] Future Scheduled 2020-12-18 Hepatitis C screening [employer] Test 08:38:12 (procedure) [code = of Medic ine 375838706] Future Scheduled 2020-12-18 Human immunodeficiency [employer] Test 08:38:12 virus screening of Medicine (procedure) [code = 824092426] Future Scheduled 2020-12-18 Screening for malignant [facility] [employer] Test 08:38:12 neoplasm of cervix of Medici ne (procedure) [code = 221106472] Future Scheduled 2020-12-18 ZOSTER VACCINE (1 of 2) [facility] [employer] Test 08:38:12 [code = ZOSTER VACCINE of Me dicine (1 of 2)] Future Scheduled 2020-12-18 FLU VACCINE > 6 MONTHS [employer] Test 08:38:12 [code = FLU VACCINE > 6 of M edicine MONTHS] Future Scheduled 2020-12-18 Screening for malignant [employer] Test 08:38:12 neoplasm of breast of Medici ne (procedure) [code = 214272467] Future Scheduled 2020-11-27 Screening for malignant [facility] [employer] Test 08:33:31 neoplasm of colon of Medicin e (procedure) [code = 281048268] Future Scheduled 2020-11-27 COVID-19 Vaccine (1) [employer] Test 08:33:31 [code = COVID-19 of Medicine Vaccine (1)] Future Scheduled 2020-11-27 TETANUS SHOT (ADULT) [employer] Test 08:33:31 [code = TETANUS SHOT of Medi cine (ADULT)] Future Scheduled 2020-11-27 Hepatitis C screening [facility] Test 08:33:31 (procedure) [code = of Medic ine 696417344] Future Scheduled 2020-11-27 Human immunodeficiency [employer] Test 08:33:31 virus screening of Medicine (procedure) [code = 709689470] Future Scheduled 2020-11-27 Screening for malignant [employer] Test 08:33:31 neoplasm of cervix of Medici ne (procedure) [code = 539614938] Future Scheduled 2020-11-27 ZOSTER VACCINE (1 of 2) [facility] [employer] Test 08:33:31 [code = ZOSTER VACCINE of Me dicine (1 of 2)] Future Scheduled 2020-11-27 FLU VACCINE > 6 MONTHS [employer] Test 08:33:31 [code = FLU VACCINE > 6 of M edicine MONTHS] Future Scheduled 2020-11-27 Screening for malignant [facility] [employer] Test 08:33:31 neoplasm of breast of Medici ne (procedure) [code = 904353289] Future Scheduled 2020-11-27 Screening for malignant [facility] [employer] Test 08:33:31 neoplasm of colon of Medicin e (procedure) [code = 843524599] Future Scheduled 2020-11-27 COVID-19 Vaccine (1) [employer] Test 08:33:31 [code = COVID-19 of Medicine Vaccine (1)] Future Scheduled 2020-11-27 TETANUS SHOT (ADULT) [employer] Test 08:33:31 [code = TETANUS SHOT of Medi cine (ADULT)] Future Scheduled 2020-11-27 Hepatitis C screening [employer] Test 08:33:31 (procedure) [code = of Medic ine 745941494] Future Scheduled 2020-11-27 Human immunodeficiency [employer] Test 08:33:31 virus screening of Medicine (procedure) [code = 393203998] Future Scheduled 2020-11-27 Screening for malignant [employer] Test 08:33:31 neoplasm of cervix of Medici ne (procedure) [code = 925854912] Future Scheduled 2020-11-27 ZOSTER VACCINE (1 of 2) [facility] [employer] Test 08:33:31 [code = ZOSTER VACCINE of Me dicine (1 of 2)] Future Scheduled 2020-11-27 FLU VACCINE > 6 MONTHS [employer] Test 08:33:31 [code = FLU VACCINE > 6 of M edicine MONTHS] Future Scheduled 2020-11-27 Screening for malignant [facility] [employer] Test 08:33:31 neoplasm of breast of Medici ne (procedure) [code = 609577801] Future Scheduled 2020-10-16 CT CHEST ABDOMEN PELVIS 1 Occurrences [facility] [employer] Test 09:12:02 W CONTRAST [code = [place] [address]-1] 10/16/2020 until 10/16/2021 Future Scheduled 2020-10-16 Screening for malignant [facility] [employer] Test 08:54:58 neoplasm of colon of Medicin e (procedure) [code = 536034741] Future Scheduled 2020-10-16 COVID-19 Vaccine (1) [employer] Test 08:54:58 [code = COVID-19 of Medicine Vaccine (1)] Future Scheduled 2020-10-16 TETANUS SHOT (ADULT) [employer] Test 08:54:58 [code = TETANUS SHOT of Medi cine (ADULT)] Future Scheduled 2020-10-16 Hepatitis C screening [employer] Test 08:54:58 (procedure) [code = of Medic ine 790233943] Future Scheduled 2020-10-16 Human immunodeficiency [employer] Test 08:54:58 virus screening of Medicine (procedure) [code = 297086675] Future Scheduled 2020-10-16 Screening for malignant [facility] [employer] Test 08:54:58 neoplasm of cervix of Medici ne (procedure) [code = 249904022] Future Scheduled 2020-10-16 ZOSTER VACCINE (1 of 2) [facility] [employer] Test 08:54:58 [code = ZOSTER VACCINE of Me dicine (1 of 2)] Future Scheduled 2020-10-16 FLU VACCINE > 6 MONTHS [employer] Test 08:54:58 [code = FLU VACCINE > 6 of M edicine MONTHS] Future Scheduled 2020-10-16 Screening for malignant [facility] [employer] Test 08:54:58 neoplasm of breast of Medici ne (procedure) [code = 813149211] Future Scheduled 2020-09-25 Screening for malignant [employer] Test 08:33:19 neoplasm of colon of Medicin e (procedure) [code = 547772744] Future Scheduled 2020-09-25 Screening for malignant [employer] Test 08:33:19 neoplasm of breast of Medici ne (procedure) [code = 453618238] Future Scheduled 2020-09-25 COVID-19 Vaccine (1) [employer] Test 08:33:19 [code = COVID-19 of Medicine Vaccine (1)] Future Scheduled 2020-09-25 TETANUS SHOT (ADULT) [employer] Test 08:33:19 [code = TETANUS SHOT of Medi cine (ADULT)] Future Scheduled 2020-09-25 Hepatitis C screening [facility] Test 08:33:19 (procedure) [code = of Medic ine 311380408] Future Scheduled 2020-09-25 Human immunodeficiency [employer] Test 08:33:19 virus screening of Medicine (procedure) [code = 118644446] Future Scheduled 2020-09-25 Screening for malignant [facility] [employer] Test 08:33:19 neoplasm of cervix of Medici ne (procedure) [code = 940268622] Future Scheduled 2020-09-25 ZOSTER VACCINE (1 of 2) [facility] [employer] Test 08:33:19 [code = ZOSTER VACCINE of Me dicine (1 of 2)] Future Scheduled 2020-09-25 FLU VACCINE > 6 MONTHS [employer] Test 08:33:19 [code = FLU VACCINE > 6 of M edicine MONTHS] Future Scheduled 2020-09-04 Screening for malignant [facility] [employer] Test 08:44:54 neoplasm of colon of Medicin e (procedure) [code = 702914862] Future Scheduled 2020-09-04 Screening for malignant [employer] Test 08:44:54 neoplasm of breast of Medici ne (procedure) [code = 159931459] Future Scheduled 2020-09-04 COVID-19 Vaccine (1) [employer] Test 08:44:54 [code = COVID-19 of Medicine Vaccine (1)] Future Scheduled 2020-09-04 TETANUS SHOT (ADULT) [employer] Test 08:44:54 [code = TETANUS SHOT of Medi cine (ADULT)] Future Scheduled 2020-09-04 Hepatitis C screening [employer] Test 08:44:54 (procedure) [code = of Medic ine 622765940] Future Scheduled 2020-09-04 Human immunodeficiency [facility] Test 08:44:54 virus screening of Medicine (procedure) [code = 534513196] Future Scheduled 2020-09-04 Screening for malignant [facility] Test 08:44:54 neoplasm of cervix of Medici ne (procedure) [code = 296183283] Future Scheduled 2020-09-04 ZOSTER VACCINE (1 of 2) [facility] [employer] Test 08:44:54 [code = ZOSTER VACCINE of Ga dicine (1 of 2)] Future Scheduled 2020-09-04 FLU VACCINE > 6 MONTHS [employer] Test 08:44:54 [code = FLU VACCINE > 6 of M edicine MONTHS] Diagnostic Test 2019-12-30 ECHO, COMPLETE [code = Expected: [facility] Pending 00:00:00 06995] 12/30/2019, of Medicine Expires: 06/28/2020 Future Scheduled COLON CANCER SCREENING: [facility] Test COLONOSCOPY [code = of Medic ine COLON CANCER SCREENING: COLONOSCOPY] Future [facility]uled [facility] of Medic ine Future Scheduled TETANUS SHOT (ADULT) [employer] Test [code = TETANUS SHOT of Medi cine (ADULT)] Future Scheduled HEPATITIS C SCREENING [employer] Test [code = HEPATITIS C of Medic ine SCREENING] Future Scheduled HIV SCREENING [code = [employer] [facility] HIV SCREENING] of Medicine Future Scheduled CERVICAL CANCER [facility] ollege Test SCREENING 3 YEAR FOLLOW of M edicine UP [code = CERVICAL CANCER SCREENING 3 YEAR FOLLOW UP] Future Scheduled FLU VACCINE > 6 MONTHS [employer] Test [code = FLU VACCINE > 6 of M edicine MONTHS] Future Scheduled COLON CANCER SCREENING: [facility] Test COLONOSCOPY [code = of Medic ine COLON CANCER SCREENING: COLONOSCOPY] Future Scheduled MAMMOGRAM ANNUAL [code [employer] Test = MAMMOGRAM ANNUAL] of Medic ine Future Scheduled TETANUS SHOT (ADULT) [employer] Test [code = TETANUS SHOT of Medi cine (ADULT)] Future Scheduled HEPATITIS C SCREENING [employer] Test [code = HEPATITIS C of Medic ine SCREENING] Future Scheduled HIV SCREENING [code = [employer] [facility] HIV SCREENING] of Medicine Future Scheduled CERVICAL CANCER [employer] [facility] SCREENING 3 YEAR FOLLOW of M edicine UP [code = CERVICAL CANCER SCREENING 3 YEAR FOLLOW UP] Future Scheduled FLU VACCINE > 6 MONTHS [employer] Test [code = FLU VACCINE > 6 of M edicine MONTHS] Future Scheduled COLON CANCER SCREENING: [facility] [employer] Test COLONOSCOPY [code = of Medic ine COLON CANCER SCREENING: COLONOSCOPY] Future Scheduled MAMMOGRAM ANNUAL [code [employer] Test = MAMMOGRAM ANNUAL] of Medic ine Future Scheduled TETANUS SHOT (ADULT) [employer] Test [code = TETANUS SHOT of Medi cine (ADULT)] Future Scheduled HEPATITIS C SCREENING [employer] Test [code = HEPATITIS C of Medic ine SCREENING] Future Scheduled HIV SCREENING [code = [employer] [facility] HIV SCREENING] of Medicine Future Scheduled CERVICAL CANCER [facility] Test SCREENING 3 YEAR FOLLOW of M edicine UP [code = CERVICAL CANCER SCREENING 3 YEAR FOLLOW UP] Future Scheduled FLU VACCINE > 6 MONTHS [employer] Test [code = FLU VACCINE > 6 of M edicine MONTHS] Future Scheduled ELECTROCARDIOGRAM [facility] Test COMPLETE [code = 06642] of M edicine Future Scheduled COLON CANCER SCREENING: [facility] [employer] Test COLONOSCOPY [code = of Medic ine COLON CANCER SCREENING: COLONOSCOPY] Future Scheduled MAMMOGRAM ANNUAL [code [employer] Test = MAMMOGRAM ANNUAL] of Medic ine Future Scheduled TETANUS SHOT (ADULT) [employer] Test [code = TETANUS SHOT of Medi cine (ADULT)] Future Scheduled HEPATITIS C SCREENING [employer] Test [code = HEPATITIS C of Medic ine SCREENING] Future Scheduled HIV SCREENING [code = [employer] [facility] HIV SCREENING] of Medicine Future Scheduled CERVICAL CANCER [employer] [facility] [facility] SCREENING 3 YEAR FOLLOW of M edicine UP [code = CERVICAL CANCER SCREENING 3 YEAR FOLLOW UP] Future Scheduled ZOSTER VACCINE (1 of 2) [facility] Test [code = ZOSTER VACCINE of Me dicine (1 of 2)] Future Scheduled FLU VACCINE > 6 MONTHS [employer] Test [code = FLU VACCINE > 6 of M edicine MONTHS] Future Scheduled METANEPHRINE,FRACT,LC/M Ordered: [facility] Test S/MS,PL [code = NOCPT] 01/09/2020 of Me dicine Future Scheduled URINALYSIS W REFLEX Ordered: [facility] Test MICRO [code = NOCPT] 01/09/2020 of Medi cine Future Scheduled CULTURE, Ordered: [facility] Test URINE/SENSITIVITY ON 01/09/2020 of Medi cine ALL [code = 51291-1] Future Scheduled COLON CANCER SCREENING: [facility] Test COLONOSCOPY [code = of Medic ine COLON CANCER SCREENING: COLONOSCOPY] Future Scheduled MAMMOGRAM ANNUAL [code B [facility] Test = MAMMOGRAM ANNUAL] of Medic ine Future Scheduled TETANUS SHOT (ADULT) [employer] Test [code = TETANUS SHOT of Medi cine (ADULT)] Future [facility] [code = HEPATITIS C of Medic ine SCREENING] Future Scheduled HIV SCREENING [code = [employer] [facility] HIV SCREENING] of Medicine Future Scheduled CERVICAL CANCER [facility] C [facility]lege Test SCREENING 3 YEAR FOLLOW of M edicine UP [code = CERVICAL CANCER SCREENING 3 YEAR FOLLOW UP] Future Scheduled ZOSTER VACCINE (1 of 2) [facility] Test [code = ZOSTER VACCINE of Me dicine (1 of 2)] Future Scheduled FLU VACCINE > 6 MONTHS [facility] Test [code = FLU VACCINE > 6 of M edicine MONTHS] Future Scheduled COLON CANCER SCREENING: [facility] Test COLONOSCOPY [code = of Medic ine COLON CANCER SCREENING: COLONOSCOPY] Future Scheduled MAMMOGRAM ANNUAL [code [facility] Test = MAMMOGRAM ANNUAL] of Medic ine Future Scheduled TETANUS SHOT (ADULT) [employer] Test [code = TETANUS SHOT of Medi cine (ADULT)] Future Scheduled HEPATITIS C SCREENING [employer] Test [code = HEPATITIS C of Medic ine SCREENING] Future Scheduled HIV SCREENING [code = [employer] [facility] HIV SCREENING] of Medicine Future Scheduled CERVICAL CANCER [facility] Test SCREENING 3 YEAR FOLLOW of M edicine UP [code = CERVICAL CANCER SCREENING 3 YEAR FOLLOW UP] Future Scheduled ZOSTER VACCINE (1 of 2) [facility] Test [code = ZOSTER VACCINE of Me dicine (1 of 2)] Future Scheduled FLU VACCINE > 6 MONTHS [employer] Test [code = FLU VACCINE > 6 of M edicine MONTHS] Future Scheduled METANEPHRINES,24HR Ordered: [facility] Test URINE [code = 80777] 02/28/2020 of Medi cine Future Scheduled COLON CANCER SCREENING: [facility] [employer] Test COLONOSCOPY [code = of Medic ine COLON CANCER SCREENING: COLONOSCOPY] Future Scheduled MAMMOGRAM ANNUAL [code [facility] Test = MAMMOGRAM ANNUAL] of Medic ine Future Scheduled TETANUS SHOT (ADULT) [employer] Test [code = TETANUS SHOT of Medi cine (ADULT)] Future Scheduled HEPATITIS C SCREENING [employer] Test [code = HEPATITIS C of Medic ine SCREENING] Future Scheduled HIV SCREENING [code = [employer] [facility] HIV SCREENING] of Medicine Future Scheduled CERVICAL CANCER [facility] Test SCREENING 3 YEAR FOLLOW of M edicine UP [code = CERVICAL CANCER SCREENING 3 YEAR FOLLOW UP] Future Scheduled ZOSTER VACCINE (1 of 2) [facility] Test [code = ZOSTER VACCINE of Me dicine (1 of 2)] Future Scheduled FLU VACCINE > 6 MONTHS [employer] Test [code = FLU VACCINE > 6 of M edicine MONTHS] Future Scheduled COLON CANCER SCREENING: [facility] Test COLONOSCOPY [code = of Medic ine COLON CANCER SCREENING: COLONOSCOPY] Future Scheduled MAMMOGRAM ANNUAL [code [facility] Test = MAMMOGRAM ANNUAL] of Medic ine Future Scheduled TETANUS SHOT (ADULT) [employer] Test [code = TETANUS SHOT of Medi cine (ADULT)] Future Scheduled HEPATITIS C SCREENING [employer] Test [code = HEPATITIS C of Medic ine SCREENING] Future Scheduled HIV SCREENING [code = [employer] [facility] HIV SCREENING] of Medicine Future Scheduled CERVICAL CANCER [facility] Test SCREENING 3 YEAR FOLLOW of M edicine UP [code = CERVICAL CANCER SCREENING 3 YEAR FOLLOW UP] Future Scheduled ZOSTER VACCINE (1 of 2) [facility] Test [code = ZOSTER VACCINE of Me dicine (1 of 2)] Future Scheduled FLU VACCINE > 6 MONTHS [employer] Test [code = FLU VACCINE > 6 of M edicine MONTHS] Future Scheduled CBC W/AUTO DIFF WITH Ordered: [facility] Test PLATELETS [code = 05/01/2020 of Medicin e 23989-5] Future Scheduled COMPREHENSIVE METABOLIC Ordered: [facility] Test PANEL [code = 68567-5] 05/01/2020 of Me dicine Future Scheduled MAGNESIUM [code = Ordered: [facility] Test 19780-9] 05/01/2020 of Medicine Future Scheduled TSH [code = 25761-9] Ordered: [employer] Test 05/01/2020 of Medicine Future Scheduled T4 FREE [code = 3024-7] Ordered: [facility] [employer] Test 05/01/2020 of Medicine Future Scheduled COLON CANCER SCREENING: [facility] [employer] Test COLONOSCOPY [code = of Medic ine COLON CANCER SCREENING: COLONOSCOPY] Future Scheduled COVID-19 Vaccine [employer] [facility] Evaluation [code = of Medici ne COVID-19 Vaccine Evaluation] Future Scheduled MAMMOGRAM ANNUAL [code [employer] Test = MAMMOGRAM ANNUAL] of Medic ine Future Scheduled TETANUS SHOT (ADULT) [employer] Test [code = TETANUS SHOT of Medi cine (ADULT)] Future Scheduled HEPATITIS C SCREENING [employer] Test [code = HEPATITIS C of Medic ine SCREENING] Future Scheduled HIV SCREENING [code = [employer] [facility] HIV SCREENING] of Medicine Future Scheduled CERVICAL CANCER [employer] [facility] [employer] [facility] SCREENING 3 YEAR FOLLOW of M edicine UP [code = CERVICAL CANCER SCREENING 3 YEAR FOLLOW UP] Future Scheduled ZOSTER VACCINE (1 of 2) [facility] Test [code = ZOSTER VACCINE of Me dicine (1 of 2)] Future Scheduled FLU VACCINE > 6 MONTHS [employer] Test [code = FLU VACCINE > 6 of M edicine MONTHS] Future Scheduled COLON CANCER SCREENING: [facility] [employer] Test COLONOSCOPY [code = of Medic ine COLON CANCER SCREENING: COLONOSCOPY] Future Scheduled COVID-19 Vaccine [facility] [employer] Test Evaluation [code = of Medici ne COVID-19 Vaccine Evaluation] Future Scheduled MAMMOGRAM ANNUAL [code [facility] = MAMMOGRAM ANNUAL] of Medic ine Future Scheduled TETANUS SHOT (ADULT) [employer] Test [code = TETANUS SHOT of Medi cine (ADULT)] Future Scheduled HEPATITIS C SCREENING [employer] Test [code = HEPATITIS C of Medic ine SCREENING] Future Scheduled HIV SCREENING [code = [employer] [facility] HIV SCREENING] of Medicine Future Scheduled CERVICAL CANCER [employer] [facility] [employer] [facility] SCREENING 3 YEAR FOLLOW of M edicine UP [code = CERVICAL CANCER SCREENING 3 YEAR FOLLOW UP] Future Scheduled ZOSTER VACCINE (1 of 2) [employer] Test [code = ZOSTER VACCINE of Me dicine (1 of 2)] Future Scheduled FLU VACCINE > 6 MONTHS [employer] Test [code = FLU VACCINE > 6 of M edicine MONTHS] Future Scheduled Screening for malignant [employer] Test neoplasm of colon of Medicin e (procedure) [code = 046291355] Future Scheduled Screening for malignant [facility] Test neoplasm of breast of Medici ne (procedure) [code = 870530649] Future Scheduled TETANUS SHOT (ADULT) [employer] Test [code = TETANUS SHOT of Medi cine (ADULT)] Future Scheduled COVID-19 Vaccine (1) [employer] Test [code = COVID-19 of Medicine Vaccine (1)] Future Scheduled Hepatitis C screening [employer] Test (procedure) [code = of Medic ine 254211123] Future Scheduled Human immunodeficiency [employer] [facility] virus screening of Medicine (procedure) [code = 533213931] Future Scheduled Screening for malignant [employer] Test neoplasm of cervix of Medici ne (procedure) [code = 927130742] Future Scheduled ZOSTER VACCINE (1 of 2) [employer] Test [code = ZOSTER VACCINE of Me dicine (1 of 2)] Future Scheduled FLU VACCINE > 6 MONTHS [employer] Test [code = FLU VACCINE > 6 of M edicine MONTHS] Future Scheduled Screening for malignant [employer] [facility] neoplasm of colon of Medicin e (procedure) [code = [id number]] Future Scheduled Screening for malignant [employer] neoplasm of breast of Medici ne (procedure) [code = 172211156] Future Scheduled TETANUS SHOT (ADULT) [place] [employer] [code = TETANUS SHOT of Medi cine (ADULT)] Future Scheduled COVID-19 Vaccine (1) [employer] [code = COVID-19 of Medicine Vaccine (1)] Future Scheduled Hepatitis C screening [employer] (procedure) [code = of Medic ine 944355455] Future Scheduled Human immunodeficiency [employer] virus screening of Medicine (procedure) [code = 647826196] Future Scheduled Screening for malignant [employer] neoplasm of cervix of Medici ne (procedure) [code = 480198201] Future Scheduled ZOSTER VACCINE (1 of 2) [employer] [code = ZOSTER VACCINE of Me dicine (1 of 2)] Future Scheduled FLU VACCINE > 6 MONTHS [employer] [code = FLU VACCINE > 6 of M edicine MONTHS] Future Scheduled Screening for malignant [facility] [employer] Test neoplasm of colon of Medicin e (procedure) [code = 505663011] Future Scheduled Screening for malignant [facility] [employer] Test neoplasm of breast of Medici ne (procedure) [code = 470842743] Future Scheduled TETANUS SHOT (ADULT) [place] [employer] [code = TETANUS SHOT of Medi cine (ADULT)] Future Scheduled COVID-19 Vaccine (1) [employer] [employer] [code = COVID-19 of Medicine Vaccine (1)] Future Scheduled Hepatitis C screening [employer] (procedure) [code = of Medic ine 775580750] Future Scheduled Human immunodeficiency [employer] virus screening of Medicine (procedure) [code = 551478014] Future Scheduled Screening for malignant [facility] [employer] Test neoplasm of cervix of Medici ne (procedure) [code = 418837011] Future Scheduled ZOSTER VACCINE (1 of 2) [facility] [employer] Test [code = ZOSTER VACCINE of Me dicine (1 of 2)] Future Scheduled FLU VACCINE > 6 MONTHS [employer] [code = FLU VACCINE > 6 of M edicine MONTHS] Future Scheduled Screening for malignant [facility] [employer] Test neoplasm of colon of Medicin e (procedure) [code = 967803188] Future Scheduled Screening for malignant [facility] [employer] Test neoplasm of breast of Medici ne (procedure) [code = 665953769] Future Scheduled TETANUS SHOT (ADULT) [employer] [employer] [code = TETANUS SHOT of Medi cine (ADULT)] Future Scheduled COVID-19 Vaccine (1) [employer] [code = COVID-19 of Medicine Vaccine (1)] Future Scheduled Hepatitis C screening [employer] (procedure) [code = of Medic ine 443138891] Future Scheduled Human immunodeficiency [employer] virus screening of Medicine (procedure) [code = 821459474] Future Scheduled Screening for malignant [facility] [employer] Test neoplasm of cervix of Medici ne (procedure) [code = 274243039] Future Scheduled ZOSTER VACCINE (1 of 2) [facility] [employer] Test [code = ZOSTER VACCINE of Me dicine (1 of 2)] Future Scheduled FLU VACCINE > 6 MONTHS [employer] [code = FLU VACCINE > 6 of M edicine MONTHS] Future Scheduled CT CHEST ABDOMEN PELVIS 1 Occurrences [facility] [employer] Test W CONTRAST [code = [place] 18622-4] 07/17/2020 until 07/17/[address] PET SKULL-BASE 1 Occurrences [employer] MID-THIGH (98743) [code starting of M edicine = 03303] 02/28/2020 until 02/27/2021 Future Scheduled MRI ABDOMEN W WO 1 Occurrences [facility] [employer] Test CONTRAST [code = starting of Medicine 94454-8] 01/09/2020 until 08/08/[address] CHEST W CONTRAST 1 Occurrences [place] [employer] [code = 76625-7] starting of Medicine 01/09/2020 until 08/08/2020 Encounters Start End Encounter Admission Attending Care Care Encounter Source Date/Time Date/Time Type Type Clinicians Facility Department ID 2020-12-29 Inpatient [facility] [id number] SLE 19:34:00 2022-01-11 2022-01-11 Office GASTON Carpenter 1.2.840.114 [id number] [facility] 13:40:00 13:40:00 Visit Florentin AMBULATOR 350.1.13.21 College Y 0.2.7.2.686 of [id number] [facility] michael 370 e 2022-01-11 2022-01-11 Office GASTON Luciano 1.2.840.114 [id number] [facility] 10:00:00 11:00:21 Visit Jeff Plascencian AMBULATOR 350.1.13.21 College Y 0.2.7.2.686 of [id number] [facility] michael 375 e 2022-01-07 2022-01-07 Outpatient KENISHA CARPENTER [facility] [id number] [facility] 00:00:00 00:00:00 [facility] 2021-12-24 2021-12-24 Office MALENA SHELL [facility] 1.2.840.114 [id number] [facility] 10:15:05 10:43:50 Visit Salvatore 350.1.13.21 Co llege 0.2.7.2.686 of [id number] [facility] michael 504 e 2021 2021 Outpatient ALYSIA MELGAR SLE SLE [id number] SLE 10:38:32 23:59:00 2021 2021 Outpatient LISA MELGARBRITTA PALAFOX [facility] [id number] SLE 10:38:18 23:59:00 2021-12-14 2021-12-14 Outpatient JAVY HARRISON SLE [id number] SLEH 08:21:21 23:59:00 ABIGAIL 2021-12-14 2021-12-14 Outpatient [facility] [id number] [facility] 00:00:00 23:59:00 [employer] 2021-12-14 2021-12-14 Outpatient KENISHA CARPENTER SLEIrma SLE [id number] SLE 08:20:24 08:20:24 [facility] 2021-11-30 2021-11-30 Outpatient [facility] [id number] [facility] 00:00:00 23:59:00 [employer] 2021-11-30 2021-11-30 Outpatient JAVY JONES SLEH [id number] SLEH 07:48:59 07:48:59 [facility] 2021-11-30 2021-11-30 Outpatient KENISHA SLEIrma SLEH [id number] [facility]H 00:00:00 00:00:00 2021-11-30 2021-11-30 Outpatient KENISHA SLEIrma SLEH [id number] [facility]H 00:00:00 00:00:00 2021-11-26 2021-11-26 Office Malena Shell [facility] 1.2.840.114 [id number] [facility] 08:40:00 10:10:23 Visit Maksim SalazarNair 350.1.13.21 Co llege 0.2.7.2.686 of [id number] Medi michael 504 e 2021-11-24 2021-11-24 Office GERMANIA FOWLER 1.2.840.114 [id number] [facility] 09:59:18 15:05:23 Visit DIPABEN AMBULATOR 350.1.13.21 College Y 0.2.7.2.686 of [id number] Medi michael 315 e 2021-11-24 2021-11-24 Outpatient BARTOLO GOODMAN [facility] [id number] [facility] 09:58:43 15:02:32 [employer] 2021-11-24 2021-11-24 Office DONA [facility] 1.2.840.114 [id number] [facility] 12:39:49 14:38:17 Visit RIANA SalazarNair 350.1.13.21 Co llege 0.2.7.2.686 of [id number] Medi michael 580 e 2021-11-24 2021-11-24 Outpatient BARTOLO GOODMAN [facility] [id number] [facility] 09:58:11 11:47:38 [employer] 2021-11-15 2021-11-15 Outpatient MICHELLE [facility] [id number] [facility] 14:44:37 15:10:35 AHMED [employer] 2021-11-12 2021-11-12 Outpatient KENISHA ALYSIA SHELL [facility] SLE [id number] [facility] 09:20:23 23:59:00 2021-10-29 2021-10-29 Office DONA [facility] 1.2.840.114 [id number] [facility] 09:32:38 11:36:58 Visit RIANA Salvatore 350.1.13.21 Co llege 0.2.7.2.686 of [id number] Medi michael 580 e 2021-10-29 2021-10-29 Office Malena Shell [facility] 1.2.840.114 [id number] [facility] 09:40:00 10:57:42 Visit Maksim Salvatore 350.1.13.21 Co llege 0.2.7.2.686 of [id number] Medi michael 504 e 2021-10-11 2021-10-[address] [facility] 1.2.840.114 [id number] [facility] 10:00:00 10:29:38 Visit Jeff Lanza AMBULATOR 350.1.13.21 College Y 0.2.7.2.686 of [id number] Medi michael 375 e 2021-09-24 2021-09-24 Outpatient [facility] [id number] [facility] 00:00:00 23:59:00 [employer]in [employer] 2021-09-24 2021-09-24 [id number] 12:03:20 12:03:20 2021-09-24 2021-09-24 Office MALENA SHELL [facility] 1.2.840.114 [id number] [facility] 07:55:42 10:02:47 Visit Salvatore 350.1.13.21 Co llege 0.2.7.2.686 of [id number] [facility] michael 504 e 2021-09-24 2021-09-24 Office DONA [facility] 1.2.840.114 [id number] [facility] 07:53:30 10:00:42 Visit RIANA Salvatore 350.1.13.21 Co llege 0.2.7.2.686 of [id number] Medi michael 580 e 2021-09-15 2021-09-15 Outpatient HALEY, [facility] [id number] [facility] 08:45:08 10:23:24 ELIDA [employer] 2021-09-10 2021-09-10 Outpatient ALYSIA MELGAR SLE SLE [id number] SLEH 10:22:55 23:59:00 2021-09-10 2021-09-10 Outpatient ALYSIA MELGAR SLEIrma SLE [id number] SLEH 10:22:49 23:59:00 2021-09-03 2021-09-03 Outpatient [facility] [id number] [facility] 09:56:03 23:59:00 [employer]in [employer] 2021-09-03 2021-09-03 Outpatient EL SLE SLE [id number] SLEH 16:26:24 16:26:24 2021-09-03 2021-09-03 Office MALENA SHELL [facility] 1.2.840.114 [id number] [facility] 08:56:49 11:18:09 Visit Salvatore 350.1.13.21 Co llege 0.2.7.2.686 of [id number] [facility] michael 504 e 2021-08-16 2021-08-16 Outpatient HALEY, [facility] [id number] [facility] 10:44:24 11:17:37 ELIDA [employer] 2021-08-13 2021-08-13 Outpatient [facility] [id number] [facility] 09:24:53 23:59:00 [employer]in [employer] 2021-08-13 2021-08-13 Office MALENA SHELL [facility] 1.2.840.114 [id number] [facility] 08:20:08 11:02:08 Visit Salvatore 350.1.13.21 Co llege 0.2.7.2.686 of [id number] Medi michael 504 e 2021-08-13 2021-08-13 Office DONA [facility] 1.2.840.114 [id number] [facility] 08:18:49 11:01:03 Visit RIANA Salvatore 350.1.13.21 Co llege 0.2.7.2.686 of [id number] Medi michael 580 e 2021-08-06 2021-08-[address] [facility] 1.2.840.114 [id number] [facility] 09:30:00 15:17:30 Visit Napoleon AMBULATOR 350.1.13.21 College Humberto Y 0.2.7.2.686 of [id number] [facility] michael 800 e 2021-08-06 2021-08-[address] [facility] 1.2.840.114 [id number] [facility] 09:00:00 10:01:04 Visit Jeff Lanza AMBULATOR 350.1.13.21 College Y 0.2.7.2.686 of 538.3576303 Medi michael 375 e 2021-08-03 2021-08-03 Outpatient JAVY BELLE [facility] [id number] [facility] 13:23:44 23:59:00 RAFAEL 2021-08-03 2021-08-03 Outpatient KENISHA HENRIQUEZ SLEH SLEH [id number] SLEH 11:57:35 13:22:00 RAFAEL 2021-08-03 2021-08-03 Outpatient KENISHA HENRIQUEZ SLEH SLEH [id number] SLEH 11:57:24 13:22:00 RAFAEL 2021-07-28 2021-07-[address] [facility] [id number] [facility] 14:39:39 14:53:06 YOMAIRA Hooks e of Medicin e 2021-07-23 2021-07-23 Outpatient [facility] [id number] [facility] 10:09:32 23:59:00 Colleg [employer]in [employer] 2021-07-23 2021-07-23 Office DONA [facility] 1.2.840.114 [id number] [facility] 09:02:12 11:27:11 Visit RIANA Salvatore 350.1.13.21 Co llege 0.2.7.2.686 of [id number] Medi michael 580 e 2021-07-23 2021-07-23 Office Malena Shell [facility] 1.2.840.114 [id number] [facility] 09:20:00 11:26:53 Visit Maksim Salvatore 350.1.13.21 Co llege 0.2.7.2.686 of 201.6727804 Medi michael 504 e 2021-07-23 2021-07-23 Outpatient KENISHA HENRIQUEZ, DANNIELLEIrma [facility] [id number] SLE 00:00:00 00:00:00 RAFAEL 2021-07-23 2021-07-23 Outpatient KENISHA JAVY HENRIQUEZ [facility] [id number] SLE 00:00:00 00:00:00 RAFAEL 2021-07-23 2021-07-23 Outpatient KENISHA HENRIQUEZ[facility] [id number] SLE 00:00:00 00:00:00 RAFAEL 2021-07-14 2021-07-14 Office GASTON Billy 1.2.840.114 [id number] [facility] 09:00:00 14:02:34 Visit Napoleon AMBULATOR 350.1.13.21 [place] Humberto Y 0.2.7.2.686 of [id number] [facility] michael 800 e 2021-07-05 2021-07-05 Outpatient [facility] [id number] [facility] 00:00:00 23:59:00 [employer]in [employer] 2021-07-05 2021-07-05 Emergency ER JAVY HENRIQUEZ Emergency [id number] [facility] 20:40:00 23:14:00 RAFAEL 2021-07-02 2021-07-02 Outpatient [facility] [id number] [facility] 10:14:13 23:59:00 Colleg [employer]in [employer] 2021-07-02 2021-07-02 Office TYRELL [facility] 1.2.840.114 [id number] [facility] 08:42:14 13:16:07 Visit DEVI Salvatore 350.1.13.21 Co llege 0.2.7.2.686 of [id number] [facility] 504 e 2021-07-01 2021-07-01 Outpatient ALYSIA MELGAR SLEIrma SLEH [id number] SLE 06:20:58 23:59:00 2021-06-22 2021-06-22 Outpatient HALEY [facility] [id number] [facility] 10:46:08 10:46:08 ELIDA Hooks e of Medicin e 2021-06-11 2021-06-11 Office DONA [facility] 1.2.840.114 [id number] [facility] 08:17:18 11:57:17 Visit RIANA Salvatore 350.1.13.21 Co llege 0.2.7.2.686 of [id number] [facility] michael 580 e 2021-06-11 2021-06-11 Office MALENA SHELL [facility] 1.2.840.114 [id number] [facility] 07:56:38 11:34:33 Visit Salvatore 350.1.13.21 Co llege 0.2.7.2.686 of [id number] [facility] 504 e 2021-06-03 2021-06-03 Outpatient ALYSIA MELGAR SLEIrma SLEH [id number] SLEH 10:47:16 23:59:00 2021-06-03 2021-06-03 Outpatient ALYSIA MELGAR SLEIrma SLEH [id number] SLEH 10:47:10 23:59:00 2021-06-02 2021-06-02 Outpatient ALONSO [facility] [id number] [facility] 16:13:36 16:30:49 YOMAIRA Hooks e of Medicin e 2021-05-26 2021-05-26 Outpatient MILTON [facility] [id number] [facility] 09:23:05 12:23:52 KAROLINA Hooks e of Medicin e 2021-05-26 2021-05-26 Office MALCOLM B[facility] 1.2.840.114 [id number] [facility] 09:39:48 10:43:26 Visit TAMERA AMBULATOR 350.1.13.21 College Y 0.2.7.2.686 of [id number] Medi michael 315 e 2021-05-25 2021-05-25 Office Haley, BCM 1.2.840.114 [id number] [facility] 11:00:00 12:42:34 Visit Elida Miller AMBULATOR 350.1.13.21 College Gary Y 0.2.7.2.686 of [id number] Medi michael 310 e 2021-05-21 2021-05-[address] [facility] [id number] [facility] 09:07:58 23:59:00 Colleg [employer]in e 2021-05-21 2021-05-21 Office TYRELL [facility] 1.2.840.114 [id number] [facility] 08:02:05 13:25:45 Visit DEVI Chase 350.1.13.21 Co llege 0.2.7.2.686 of [id number] Medi michael 504 e 2021-04-30 2021-04-[address] [facility] [id number] [facility] 09:10:29 23:59:00 Colleg [employer] Medicin e 2021-04-30 2021-04-30 Office DONA [facility] 1.2.840.114 [id number] [facility] 08:09:51 11:17:09 Visit RIANA Chase 350.1.13.21 Co llege 0.2.7.2.686 of 556.4713853 Medi michael 580 e 2021-04-30 2021-04-30 Office MALENA SHELL [facility] 1.2.840.114 [id number] [facility] 08:10:52 10:07:13 Visit Salvatore 350.1.13.21 Co llege 0.2.7.2.686 of [id number] Medi michael 504 e 2021-04-20 2021-04-20 Office Haley, BC 1.2.840.114 [id number] [facility] 08:00:00 09:04:24 Visit Elida Miller AMBULATOR 350.1.13.21 College Gary Y 0.2.7.2.686 of [id number] Medi michael 310 e 2021-04-14 2021-04-14 Outpatient EL MALCOLM, [facility]Ir[facility] [id number] SLE 09:49:00 13:50:00 DIPABEN 2021-04-12 2021-04-12 Outpatient EL [facility] [id number] [facility] 12:05:49 23:59:00 2021-04-09 2021-04-09 Outpatient [facility] [id number] [facility] 09:48:13 23:59:00 Colleg [employer]in e 2021-04-09 2021-04-09 Office DONA [facility] 1.2.840.114 [id number] [facility] 08:01:19 10:49:33 Visit RIANA Salvatore 350.1.13.21 Co llege 0.2.7.2.686 of [id number] [facility] michael 580 e 2021-04-09 2021-04-09 Office Malena Shell [facility] 1.2.840.114 [id number] [facility] 08:00:00 10:49:25 Visit Maksim Salvatore 350.1.13.21 Co llege 0.2.7.2.686 of 668.4431595 [facility] michael 504 e 2021-03-23 2021-03-23 Outpatient HALEY, [facility] [id number] [facility] 14:15:09 14:57:25 ELIDA [employer]in [employer] 2021-03-22 2021-03-22 Outpatient CAROLE, [facility] [id number] [facility] 14:43:59 15:58:57 ALYCE [employer]in [employer] 2021-03-15 2021-03-15 Office GERMANIA FOWLER 1.2.840.114 [id number] [facility] 09:38:04 10:36:51 Visit DIPABEN AMBULATOR 350.1.13.21 College Y 0.2.7.2.686 of [id number] [facility] michael 315 e 2021-03-12 2021-03-12 Outpatient [facility] [id number] [facility] 09:00:00 23:59:00 Colleg [employer]in [employer] 2021-03-12 2021-03-12 Office MALENA SHELL [facility] 1.2.840.114 [id number] [facility] 08:04:54 14:45:44 Visit Salvatore 350.1.13.21 Co llege 0.2.7.2.686 of [id number] [facility] michael 504 e 2021-03-12 2021-03-[address] [facility] 1.2.840.114 [id number] [facility] 13:13:30 14:24:56 Visit YOMAIRA AMBULATOR 350.1.13.21 College Y 0.2.7.2.686 of 471.3595197 [facility] michael 355 e 2021-03-04 2021-03-04 Outpatient ALYSIA MELGAR SLEIrma SLE [id number] SLE 09:56:53 23:59:00 2021-03-04 2021-03-04 Outpatient ALYSIA MELGAR SLE SLE [id number] SLE 09:56:45 23:59:00 2021-02-26 2021-02-26 Outpatient FIDLE [facility] [id number] [facility] 09:04:56 11:46:36 RIC [employer] 2021-02-26 2021-02-26 Outpatient [facility] [id number] [facility] 09:44:34 09:44:34 Colleg [employer]in [employer] 2021-02-19 2021-02-19 Outpatient [facility] [id number] SLE 10:58:05 23:59:00 RIC 2021-02-19 2021-02-19 Outpatient [facility] [id number] [facility] 09:12:52 23:59:00 Colleg [employer]in e 2021-02-19 2021-02-19 Office DONA [facility] 1.2.840.114 [id number] [facility] 08:07:46 12:59:30 Visit RIANA Salvatore 350.1.13.21 Co llege 0.2.7.2.686 of [id number] Medi michael 580 e 2021-02-19 2021-02-19 Office IRASEMA SANTILLANMatthew 1.2.840.114 [id number] [facility] 08:08:24 12:58:24 Visit DEVI Salasr 350.1.13.21 Co llege 0.2.7.2.686 of [id number] Medi michael 504 e 2021-02-09 2021-02-09 Office GERMANIA PARRA 1.2.840.114 [id number] [facility] 09:51:50 16:00:00 Visit RIC AMBULATOR 350.1.13.21 College Y 0.2.7.2.686 of [id number] Medi michael 300 e 2021-01-29 2021-01-29 Outpatient BCM [place] [id number] [facility] 08:52:14 23:59:00 Colleg e [employer] Medicin e 2021-01-29 2021-01-29 Office DONA [facility] 1.2.840.114 [id number] [facility] 07:27:17 12:16:24 Visit RIANA Salvatore 350.1.13.21 Co llege 0.2.7.2.686 of [id number] Medi michael 580 e 2021-01-29 2021-01-29 [facility] 1.2.840.114 [id number] [facility] 07:26:40 12:14:51 Visit DEVI Salasr 350.1.13.21 Co llege 0.2.7.2.686 of [id number] Medi michael 504 e 2021-01-08 2021-01-08 [facility] [id number] [facility] 09:59:31 23:59:00 Colleg e of Medicin e 2021-01-08 2021-01-08 Office MALENA SHELL [facility] 1.2.840.114 [id number] [facility] 08:45:54 10:52:17 Visit Salvatore 350.1.13.21 Co llege 0.2.7.2.686 of [id number] Medi michael 504 e 2020-12-31 2020-12-31 Outpatient SLEH SLEH [id number] [facility] 00:00:00 00:00:00 2020-12-31 2020-12-31 Outpatient EL SLEH SLEH [id number] [facility] 00:00:00 00:00:00 2020-12-29 2020-12-29 Outpatient SLEH SLEH [id number] [facility] 08:54:11 08:54:11 2020-12-29 2020-12-29 Outpatient ALYSIA MELGAR SLE SLE [id number] SLEH 00:00:00 00:00:00 2020-12-29 2020-12-29 Outpatient ALYSIA MELGAR SLE SLE [id number] SLEH 00:00:00 00:00:00 2020-12-22 2020-12-22 Outpatient ALYSIA MELGAR SLE SLE [id number] SLEH 00:00:00 00:00:00 2020-12-18 2020-12-18 Outpatient [facility] [id number] [facility] 09:37:08 23:59:00 Duane Medicin e 2020-12-18 2020-12-18 Office DONA RONNA 1.2.840.114 [id number] [facility] 08:31:55 11:37:21 Visit RIANA Chase 350.1.13.21 Co llege 0.2.7.2.686 of [id number] [facility] 580 e 2020-12-18 2020-12-18 Office Suleman Lisastefanyginger [facility] 1.2.840.114 [id number] [facility] 08:29:46 11:37:04 Visit Maksim Chase 350.1.13.21 Co llege 0.2.7.2.686 of [id number] [facility] michael 530 e 2020 2020 Letter JEFF Salguero 1.2.840.114 [id number] Univers 00:00:00 00:00:00 (Out) Kristie BAUM 350.1.13.10 [facility] 4.2.7.2.686 [place] as [id number] [facility] 019 Branch 2020-12-16 2020-12-16 Laboratory Only, Adc Test [facility] 1.2.840. 114 [id number] Univers 13:33:21 13:48:21 Only Hiram Kevinjimmy An 350.1.13.10 ity [place] [id number] [facility] 353 Branch 2020-12-16 2020-12-16 Outpatient R HIRAM [facility] [id number] Univers 13:30:00 13:30:00 KEVIN ity of [facility] 2020-12-16 2020-12-16 Orders Doctor JEFF 1.2.840.114 [id number] Univers 00:00:00 00:00:00 Only Unassigned, BAUTISTA 350.1.13.10 ity of [place] [facility] 4.2.7.2.686 Gordon as [phone] [facility] 009 Branch 2020-12-04 2020-12-04 Outpatient ALYSIA MELGAR [facility] [id number] [facility] 00:00:00 00:00:00 2020-11-27 2020-11-27 Outpatient [facility] [id number] [facility] 09:31:32 23:59:00 Colleg e of Medicin e 2020-11-27 2020-11-27 Office DONA [facility] 1.2.840.114 [id number] [facility] 08:24:42 11:32:01 Visit RIANA Chase 350.1.13.21 Co llege 0.2.7.2.686 of [id number] [facility] michael 580 e 2020-11-27 2020-11-27 Office Malena Shell [facility] 1.2.840.114 [id number] [facility] 08:23:52 08:43:52 Visit Maksim Chase 350.1.13.21 Co llege 0.2.7.2.686 of [id number] Medi michael 530 e 2020-11-06 2020-11-06 Outpatient [facility] [id number] [facility] 09:21:07 23:59:00 Colleg e of Medicin e 2020-10-29 2020-10-29 Outpatient EL ALYSIA SHELL [facility] [id number] SLE 00:00:00 00:00:00 2020-10-29 2020-10-29 Outpatient ALYSIA SHELL SLE [id number] [facility] 00:00:00 00:00:00 2020-10-16 2020-10-16 Outpatient [facility] [id number] [address] [place] [address] 09:24:27 23:59:00 Colleg e of Medicin e 2020-10-16 2020-10-16 Office Malena Shell [facility] 1.2.840.114 [id number] [facility] 08:46:03 09:06:03 Visit Maksim Chase 350.1.13.21 Co llege 0.2.7.2.686 of [id number] [facility] 530 e 2020-10-09 2020-10-09 Talent Agent Leroy Griggs Lab Main [facility] 1.2.8 40.114 [id number] [facility] 16:47:32 17:02:32 Visit Devi Cheema 350.1.1 3.10 ity of [place]2.[place] Profess[place] [id number] Ga dical [address] 2020-10-09 2020-10-09 Talent Agent Indu [facility] 1.2.840.114 [id number] 16:47:32 17:02:32 Visit Lab Main Juve 350.1.13.10 [place] 4.2.7.2.686 Professio [id number] [address] 2020-10-09 2020-10-09 Outpatient R ANETTE, [facility] [id number] Univers 16:45:00 16:45:00 DEVI ross of [facility] 2020-10-09 2020-10-09 Orders Doctor AGUILAR 1.2.840.114 [id number] Univers 00:00:00 00:00:00 Only Unassigned, BAUTISTA 350.1.13.10 ity of [place] [facility] 4.2.7.2.686 [place] as [id number] [facility] [address] 2020-10-09 2020-10-09 Orders Doctor AGUILAR 1.2.840.114 [id number] 00:00:00 00:00:00 Only Unassigned, BAUTISTA 350.1.13.10 [place] [facility] 4.2.7.2.686 [id number] 009 2020-10-07 2020-10-07 [facility] Radiology [facility] 1.2.840.114 [id number] 12:44:41 23:59:00 Encounter [place] 350.1.13.10 [place] 4.2.7.2.686 [place] [id number] 800 2020-10-07 2020-10-07 [facility] Radiology [facility] 1.2.840.114 [id number] [facility] 12:44:41 23:59:00 Encounter [place] 350.1.13.10 ity of [place] 4.2.7.2.686 [place] [facility] [id number] [facility] [address] 2020-10-07 2020-10-07 Outpatient R RADIOLOGY [facility] [id number] Univers 00:00:00 00:00:00 ity of [facility] 2020-10-07 2020-10-07 Orders Doctor AGUILAR 1.2.840.114 [id number] 00:00:00 00:00:00 Only Unassigned, BAUTISTA 350.1.13.10 [place] [facility] 4.2.7.2.686 [id number] 009 2020-10-07 2020-10-07 Orders Doctor AGUILAR 1.2.840.114 [id number] [facility] 00:00:00 00:00:00 Only Unassigned, BAUTISTA 350.1.13.10 ity of [place] [facility] 4.2.7.2.686 [place] as [id number] [facility] [address] 2020-10-02 2020-10-[address] [facility] [id number] [facility] 14:07:58 14:37:47 NICOLE Hooks e of Medicin e 2020-09-25 2020-09-25 Outpatient [facility] [id number] [facility] 09:19:11 23:59:00 Colleg e of Medicin e 2020-09-25 2020-09-25 Office Tyrell [facility] 1.2.840.114 [id number] 02 [facility] 08:21:51 08:51:51 Visit Devi SalazarNair 350.1.13.21 Co llege [place] 0.2.7.2.686 of [id number] Medi michael 530 e 2020-09-04 2020-09-04 Office Malena Shell [facility] 1.2.840.114 [id number] [facility] 08:44:04 09:04:04 Visit Edjacek Salvatore 350.1.13.21 Co llege 0.2.7.2.686 of [id number] Medi michael 530 e 2020-08-07 2020-08-07 Office Malena Shell [facility] 1.2.840.114 [id number] [facility] 08:14:05 08:34:05 Visit Edjacek SalazarNair 350.1.13.21 Co llege 0.2.7.2.686 of [id number] [facility] michael 530 e 2020-08-03 2020-08-03 Outpatient MOISEWendiLISAHERIA SLEIrma SLE [id number] SLEH 00:00:00 00:00:00 2020-08-03 2020-08-03 Outpatient SULEMANJUAN JOSÉSIENNA SLE SLEH [id number] SLEH 00:00:00 00:00:00 2020-07-17 2020-07-17 Office GASTON Luciano 1.2.840.114 [id number] [facility] 11:11:16 13:55:05 Visit Jeff Palscencian AMBULATOR 350.1.13.21 College Y 0.2.7.2.686 of [id number] [facility] michael 375 e 2020-07-17 2020-07-17 Office Malena Shell [facility] 1.2.840.114 [id number] [facility] 08:54:37 09:14:37 Visit Edjacek SalazarNair 350.1.13.21 Co llege 0.2.7.2.686 of [id number] Medi michael 530 e 2020-06-26 2020-06-26 Outpatient [facility] [id number] [facility] 12:14:47 14:06:45 Colleg e of Medicin e 2020-06-26 2020-06-26 Office Malena Shell [facility] 1.2.840.114 [id number] [facility] 08:20:14 08:40:14 Visit Edward Salvatore 350.1.13.21 Co llege 0.2.7.2.686 of [id number] Medi michael 530 e 2020-06-05 2020-06-05 Office Malena Shell [facility] 1.2.840.114 [id number] [facility] 08:14:57 11:09:13 Visit Edward Salvatore 350.1.13.21 Co llege 0.2.7.2.686 of [id number] Medi michael 530 e 2020-05-01 2020-05-01 Office Malena Shell [facility] 1.2.840.114 [id number] [facility] 10:17:13 12:04:38 Visit Edward Salvatore 350.1.13.21 Co llege 0.2.7.2.686 of [id number] Medi michael 530 e 2020-04-23 2020-04-27 Inpatient GANDHI, [facility] [id number] 89 [place] 00:00:00 00:00:00 WEI [address] 2020-04-23 2020-04-23 Outpatient HEATH, [facility] [id number] 814 [place] 00:00:00 00:00:00 RAHEEM [address] 2020-04-23 2020-04-23 Outpatient OWEIS, [facility] [id number] 526 [place] 00:00:00 00:00:00 ISAURA [address] 2020-04-20 2020-04-20 Outpatient HEATH, [facility] [id number] 816 [place] 00:00:00 00:00:00 RAHEEM [address] 2020-04-01 2020-04-01 [facility] [id number] SLE 00:00:00 00:00:00 2020-04-01 2020-04-01 Outpatient [facility] SLE [id number] SLE 00:00:00 00:00:00 2020-04-01 2020-04-01 Outpatient HEATH [facility] [id number] [place] 00:00:00 00:00:00 RAHEEM Jose Ding sarah box 2020-03-20 2020-03-20 Office Malena Shell [facility] 1.2.840.114 [id number] [facility] 15:05:27 16:42:03 Visit Edjacek Salasr 350.1.13.21 Co llege 0.2.7.2.686 of [id number] Medi michael 530 e 2020-03-13 2020-03-13 Outpatient EL ALYSIA SHELL SLEIrma SLE [id number] SLEH 00:00:00 00:00:00 2020-02-28 2020-02-28 Office Malena Shell [facility] 1.2.840.114 [id number] [facility] 13:30:15 14:12:11 Visit Maksim Salasr 350.1.13.21 Co llege 0.2.7.2.686 of [id number] Medi michael 530 e 2020-02-25 2020-02-26 Outpatient [facility] [id number] [facility] 07:55:21 10:42:00 Colleg e of Medicin e 2020-02-04 2020-02-04 Outpatient JAVY LIN SLE [id number] SLE 00:00:00 00:00:00 SKYLER 2020-02-04 2020-02-04 Outpatient EL JAVY LIN SLEIrma [id number] SLEH 00:00:00 00:00:00 SKYLER 2020-01-15 2020-01-15 Office Malena Shell [facility] 1.2.840.114 [id number] [facility] 07:48:12 10:22:28 Visit Edjacek Salasr 350.1.13.21 Co llege 0.2.7.2.686 of [id number] Medi michael 530 e 2020-01-09 2020-01-09 Outpatient [facility] [id number] [facility] 12:34:39 19:33:29 Colleg e of Medicin e 2020-01-09 2020-01-09 Office GASTON Lin 1.2.840.114 [id number] 69 [facility] 13:58:26 15:56:16 Visit Skyler Malin AMBULATOR 350.1.13.21 College Y 0.2.7.2.686 of [id number] [facility] 300 e 2019-12-30 2019-12-30 Office Mustapha, GASTON 1.2.840.114 [id number] [facility] 13:36:49 14:06:49 Visit Jeff Lanza AMBULATOR 350.1.13.21 College Y 0.2.7.2.686 of [id number] [facility] 375 e 2019-10-30 2019-10-30 Office Mustapha, BCKerri 1.2.840.114 [id number] 11:24:47 11:54:47 Visit Jeff Lanza AMBULATOR 350.1.13.21 Y 0.2.7.2.686 [id number] [facility] 2019-10-30 2019-10-30 Office Mustapha, GASTON 1.2.840.[id number] [place] [address] 11:24:47 11:54:47 Visit Jeff Lanza AMBULATOR 350.1.13.21 College Y 0.2.7.2.686 of [id number] [facility] 375 e 2019-05-01 2019-05-01 Office Mustapha, GERMANIAKerri 1.2.840.114 [id number] 10:58:45 12:05:28 Visit Jeff HOANGATOR 350.1.13.21 Y 0.2.7.2.686 [id number] [facility] 2019-05-01 2019-05-01 Ish Luciano, BCKerri 1.2.840.[id number] [place] [address] 10:58:45 12:05:28 Visit Jeff Lanza AMBULATOR 350.1.13.21 College Y 0.2.7.2.686 of [id number] [facility] 375 e 2018-11-22 2018-11-22 Office GASTON Luciano 1.2.840.114 [id number] 15 09:44:57 10:31:02 Visit Jeff Lanza AMBULATOR 350.1.13.21 Y 0.2.7.2.686 [id number] [facility] 2018-11-22 2018-11-22 Office GASTON Luciano 1.2.840.114 [id number] [facility] 09:44:57 10:31:02 Visit Jeff Lanza AMBULATOR 350.1.13.21 College Y 0.2.7.2.686 [id number] [facility] 315 e Results Test Description Test Time Test Comments Results Result Sour e Comments CT, ABDOMEN 2021 Unlisted Reason 15:45:00 for Exam - Click Yes and Enter Reason [facility] Reason for NENA TURNER Exam->Cancer of : 1960 Sex: right kidneyIs F this for enterography?-> NoWill this *FINAL REPORT procedure require oral CT of the chest, contrast?->No abdomen and pelvis, with contrast Clinical History: Unlisted Reason for ExamCancer of right kidney Technique: CT of the chest, abdomen and pelvis is performed with intravenous contrast administration. This exam was performed according to our departmental dose optimization program which includes automated exposure control, adjustment of the mA and/or kV according to patient's size and/or use of iterative reconstructive technique. Comparison Film: September 10, 2021, June 03, 2021 and March 04, 2021, October 29, 2020 Discussion: There is no supraclavicular, axillary, mediastinal or hilar lymphadenopathy. Heart and pericardium are unremarkable. Lungs are severely emphysematous. A spiculated right upper lobe opacity, previously biopsied, is not significantly changed. An 8 mm subpleural nodule, an adjacent 4 mm nodule in the left lower lobe are stable. No new nodule or mass. No pleural effusion. Central airways are patent, no significant bronchiectasis, or bronchial wall thickening. A hypervascular focus at the right hepatic dome is unchanged, probably related to perfusion anomaly/vascular shunt. No new liver mass is identified. No biliary ductal dilatation. Gallbladder is absent. The spleen, pancreas, are unremarkable. A right adrenal mass has significantly decreased in size, now measuring 1.9 x 1.3 cm, previously 2.9 x 2.2 cm. A 1 cm left adrenal nodule is also smaller, and measures 7 mm. Both appear partially necrotic. Previously seen 1.5 x 1.8 cm enhancing lesion in the right upper to midpole adjacent to the surgical margin has slightly decreased in size, now measuring approximately 1.2 x 1.4 cm, demonstrating decreased enhancement compared to the prior study. No hydronephrosis, or radiopaque stone. Left kidney is unremarkable. No evidence of bowel obstruction, or abnormal bowel wall thickening. There are a few scattered colonic diverticuli. In the pelvis, bladder is normal. Uterus is absent. No adnexal mass. No ascites, or lymphadenopathy. Bony structures demonstrate degenerative changes, and decreased bony mineralization. [id number] and sclerotic, expansile lesion in the posterior right sixth rib. Impression: Right renal mass has decreased in size and degree of enhancement, compatible with treatment response. 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 No new disease identified in the thorax. Advanced pulmonary emphysema. Stable appearance of right sixth rib lesion compatible with metastasis. Signed: Maksim Pires Verified Date/Time: 2021 15:45:10 Reading Location: [address] Consult Reading Room , CHEST, WITH IV 2021 Unlisted Reason CONTRAST 15:45:00 for Exam - Click Yes and Enter Reason [facility] Reason for NENA TURNER Exam->Cancer of : 1960 Sex: right kidney F *FINAL REPORT CT of the chest, abdomen and pelvis, with contrast Clinical History: Unlisted Reason for ExamCancer of right kidney Technique: CT of the chest, abdomen and pelvis is performed with intravenous contrast administration. This exam was performed according to our departmental dose optimization program which includes automated exposure control, adjustment of the mA and/or kV according to patient's size and/or use of iterative reconstructive technique. Comparison Film: September 10, 2021, June 03, 2021 and March 04, 2021, October 29, 2020 Discussion: There is no supraclavicular, axillary, mediastinal or hilar lymphadenopathy. Heart and pericardium are unremarkable. Lungs are severely emphysematous. A spiculated right upper lobe opacity, previously biopsied, is not significantly changed. An 8 mm subpleural nodule, an adjacent 4 mm nodule in the left lower lobe are stable. No new nodule or mass. No pleural effusion. Central airways are patent, no significant bronchiectasis, or bronchial wall thickening. A hypervascular focus at the right hepatic dome is unchanged, probably related to perfusion anomaly/vascular shunt. No new liver mass is identified. No biliary ductal dilatation. Gallbladder is absent. The spleen, pancreas, are unremarkable. A right adrenal mass has significantly decreased in size, now measuring 1.9 x 1.3 cm, previously 2.9 x 2.2 cm. A 1 cm left adrenal nodule is also smaller, and measures 7 mm. Both appear partially necrotic. Previously seen 1.5 x 1.8 cm enhancing lesion in the right upper to midpole adjacent to the surgical margin has slightly decreased in size, now measuring approximately 1.2 x 1.4 cm, demonstrating decreased enhancement compared to the prior study. No hydronephrosis, or radiopaque stone. Left kidney is unremarkable. No evidence of bowel obstruction, or abnormal bowel wall thickening. There are a few scattered colonic diverticuli. In the pelvis, bladder is normal. Uterus is absent. No adnexal mass. No ascites, or lymphadenopathy. Bony structures demonstrate degenerative changes, and decreased bony mineralization. Kgvtlw5Iiiow and sclerotic, expansile lesion in the posterior right sixth rib. Impression: Right renal mass has decreased in size and degree of enhancement, compatible with treatment response. 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 No new disease identified in the thorax. Advanced pulmonary emphysema. Stable appearance of right sixth rib lesion compatible with metastasis. Signed: Maksim Piresort Verified Date/Time: 2021 15:45:10 Reading Location: [address] Ortho Consult Reading Room IOLIPIN ANTIBODIES, IGG AND IGM 2021-12-01 11:27:09 Test Item Value Reference Range Interpretation Comme nts ANTICARDIOLIPIN IGG ANTIBODY (BEAKER) (test code = 712) < GPL <20.0 ANTICARDIOLIPIN IGM ANTIBODY (BEAKER) (test code = 713) < MPL <20.0 Anticardiolipin IgG Result Interpretation: <20.0 GPL Normal>/= 20.0 GPL PositiveAnticardiolipin IgM Result Interpretation: <20.0 MPL Normal>/= 20.0 MPL PositiveANTITHROMBIN [id number] 14:22:39 Test Item Value Reference Range Interpretation Comments ANTITHROMBIN III ACTIVITY (BEAKER) 117.0 % 80.0-120.0 (test code = 711) PROTEIN C [id number] 14:22:38 Test Item Value Reference Range Interpretation Comments PROTEIN C ACTIVITY (BEAKER) (test 154.0 % 70.0-130.0 H code = 582) [id number] 13:01:24 Test Item Value Reference Range Interpretation Comments PARTIAL THROMBOPLASTIN TIME 33.1 seconds 22.5-36.0 (BEAKER) (test code = 760) PROTHROMBIN [id number] 13:00:45 Test Item Value Reference Range Interpretation Comments PROTIME (BEAKER) 13.1 seconds 11.9-14.2 (test code = 759) INR (BEAKER) (test 1.01 See_Comment [Automat ed message] code = 370) The system Proxible generated this result transmitted ref erence range: <=5.90. The reference range was not used to int erpret this result as normal/abnormal . RECOMMENDED COUMADIN/WARFARIN INR THERAPY RANGESSTANDARD DOSE: 2.0 - 3.0 Includes: PROPHYLAXIS for venous thrombosis, systemic embolization; TREATMENT for venous thrombosis and/or pulmonary embolus.HIGH RISK: Target INR is 2.5-3.5 for patients with mechanical heart valves.[id number] 12:50:01 Test Item Value Reference Range Interpretation Comments HOMOCYSTEINE (BEAKER) (test code = 6.7 umol/L 5.1-15.4 642) Contact Lens Inspector ID - IVETTE LBASIC METABOLIC [id number] 12:32:58 Test Item Value Reference Range Interpretation Comments SODIUM (BEAKER) 130 meq/L 136-145 L (test code = 381) POTASSIUM 4.4 meq/L 3.5-5.1 (BEAKER) (test code = 379) CHLORIDE (BEAKER) 98 meq/L 98-107 (test code = 382) CO2 (BEAKER) 25 meq/L 22-29 (test code = 355) BLOOD UREA 8 mg/dL 7-21 NITROGEN (BEAKER) (test code = 354) CREATININE 0.65 mg/dL 0.57-1.25 (BEAKER) (test code = 358) GLUCOSE RANDOM 87 mg/dL 70-105 (BEAKER) (test code = 652) CALCIUM (BEAKER) 9.3 mg/dL 8.4-10.2 (test code = 697) EGFR (BEAKER) 100 Interpretatio n of eGFR (test code = mL/min/1.73 values Stage De scription 1092) sq m Result G1 Britany l or high >=90 G2 Mildly decreased 60-89 G3a Mildl y to moderately 45-5 9 G3b Moderately to s everely 30-44 G4 Severl y decreased 15-29 G5 Kidney failure <15Reported eGF R is based on the CKD-EPI 2020 equation that d oes not use a race coefficientEsti mated GFR is not as accur ate as Creatinine Carmen gamez in predicting glom erular filtration rate . Estimated GFR is not appl icable for dialysis patien ts Contact Lens Inspector ID - PIFELI LCBC W/PLT COUNT & AUTO [id number] 12:09:49 Test Item Value Reference Range Interpretation Comments WHITE BLOOD CELL COUNT (BEAKER) 6.4 K/ L 3.5-10.5 (test code = 775) RED BLOOD CELL COUNT (BEAKER) 4.76 M/ L 3.93-5.22 (test code = 761) HEMOGLOBIN (BEAKER) (test code = 16.2 GM/DL 11.2-15.7 H 410) HEMATOCRIT (BEAKER) (test code = 45.7 % 34.1-44.9 H 411) MEAN CORPUSCULAR VOLUME (BEAKER) 96.0 fL 79.4-94.8 H (test code = 753) MEAN CORPUSCULAR HEMOGLOBIN 34.0 pg 25.6-32.2 H (BEAKER) (test code = 751) MEAN CORPUSCULAR HEMOGLOBIN CONC 35.4 GM/DL 32.2-35.5 (BEAKER) (test code = 752) RED CELL DISTRIBUTION WIDTH 15.1 % 11.7-14.4 H (BEAKER) (test code = 412) PLATELET COUNT (BEAKER) (test 257 K/CU MM 150-450 code = 756) MEAN PLATELET VOLUME (BEAKER) 8.9 fL 9.4-12.3 L (test code = 754) NUCLEATED RED BLOOD CELLS 0 /100 WBC 0-0 (BEAKER) (test code = 413) NEUTROPHILS RELATIVE PERCENT 62 % (BEAKER) (test code = 429) LYMPHOCYTES RELATIVE PERCENT 29 % (BEAKER) (test code = 430) MONOCYTES RELATIVE PERCENT 4 % (BEAKER) (test code = 431) EOSINOPHILS RELATIVE PERCENT 4 % (BEAKER) (test code = 432) BASOPHILS RELATIVE PERCENT 1 % (BEAKER) (test code = 437) NEUTROPHILS ABSOLUTE COUNT 4.00 K/ L 1.56-6.13 (BEAKER) (test code = 670) LYMPHOCYTES ABSOLUTE COUNT 1.85 K/ L 1.18-3.74 (BEAKER) (test code = 414) MONOCYTES ABSOLUTE COUNT (BEAKER) 0.28 K/ L 0.24-0.36 (test code = 415) EOSINOPHILS ABSOLUTE COUNT 0.23 K/ L 0.04-0.36 (BEAKER) (test code = 416) BASOPHILS ABSOLUTE COUNT (BEAKER) 0.04 K/ L 0.01-0.08 (test code = 417) IMMATURE GRANULOCYTES-RELATIVE 0 % 0-1 PERCENT (BEAKER) (test code = 2801) COMPREHENSIVE METABOLIC [id number] 15:23:32 Test Item Value Reference Range Interpretation Comments GLUCOSE (test code = See_Comment [Autom ated message] 2345-7) The system Proxible generated this result transmitted ref erence range: 70 - 99 MG/DL. The reference r edu was not used to interpret this result as normal/abnor mal. BLOOD UREA NITROGEN See_Comment [Automa griffin message] (test code = 3091-6) The sys tem which generated this result transmitted ref erence range: 6 - 20 M G/DL. The reference r edu was not used to interpret this result as normal/abnor mal. CREATININE (test code = See_Comment [Au tomated message] 2160-0) The system Proxible generated this result transmitted ref erence range: 0.6 - 1. 3 MG/DL. The refe rence range was not u sed to interpret this result as normal/abnor mal. EGFR (test code = See_Comment [Automate d message] 60445-9) The system Proxible generated this result transmitted ref erence range: >60 ML/MIN/1.73. Th e reference range was not used to int erpret this result as normal/abnormal . BUN/CREAT RATIO (test See_Comment [Auto mated message] code = 3097-3) The system ServiceMesh generated this result transmitted ref erence range: 6 - 28 R ATIO. The reference r edu was not used to interpret this result as normal/abnor mal. SODIUM (test code = See_Comment L RESULTS RECHECKED AND 2951-2) VERIFIED [Autom ated message] The sy stem which generated this result transmit griffin reference range : 133 - 146 MEQ/L. The reference range was not used to int erpret this result as normal/abnormal . POTASSIUM (test code = See_Comment [Aut omated message] 2823-3) The system Proxible generated this result transmitted ref erence range: 3.5 - 5. 4 MEQ/L. The refe rence range was not u sed to interpret this result as normal/abnor mal. CHLORIDE (test code = See_Comment L [Auto mated message] 3685-0) The system Proxible generated this result transmitted ref erence range: 100 - 11 2 MEQ/L. The refe rence range was not u sed to interpret this result as normal/abnor mal. CO2 (test code = See_Comment [Automated message] 1963-8) The system [employer]Trip generated this result transmitted ref erence range: 21 - 30 MEQ/L. The reference r edu was not used to interpret this result as normal/abnor mal. CALCIUM (test code = See_Comment [Autom ated message] 94701-8) The system [employer]Trip generated this result transmitted ref erence range: 8.5 - 10 .5 MG/DL. The refe rence range was not u sed to interpret this result as normal/abnor mal. PROTEIN TOTAL (test See_Comment [Automa griffin message] code = 2885-2) The system Critique^It generated this result transmitted ref erence range: 6.1 - 8. 1 G/DL. The reference r edu was not used to interpret this result as normal/abnor mal. ALBUMIN (test code = See_Comment [Autom ated message] 24798-4) The system [employer] generated this result transmitted ref erence range: 3.4 - 4. 8 G/DL. The reference r edu was not used to interpret this result as normal/abnor mal. GLOBULINS, SERUM, TOTAL See_Comment [Au tomated message] (test code = 64991-4) The sy stem which generated this result transmitted ref erence range: 1.9 - 3. 7 G/DL. The reference r edu was not used to interpret this result as normal/abnor mal. A/G RATIO (test code = See_Comment [Aut omated message] 1759-0) The system [employer] generated this result transmitted ref erence range: 1.0 - 2. 6 RATIO. The refe rence range was not u sed to interpret this result as normal/abnor mal. BILIRUBIN TOTAL (test See_Comment [Auto mated message] code = 1975-2) The system Critique^It generated this result transmitted ref erence range: <=1.2 MG /DL. The reference r edu was not used to interpret this result as normal/abnor mal. ALKALINE PHOSPHATASE 90 U/L 30-132 (test code = 6768-6) AST (SGOT) (test code = 47 U/L -0-8) ALT (SGPT) (test code = 63 U/L 3-47 H DURAN TING PERFORMED AT 1744-2) [facility], [place] [address] [facility] D, [address] [place] [address] CLIA NO. [id number] Unle ss Otherwise Indic ated, All Testing Per formed At: [facility], [address] [place] [address] Laborator y Director: Connor Nicole M.D. CLIA Number [id number] [place]. [id number] Lab Interpretation Abnormal (test code = 08662-0) [facility] [id number] 15:16:00 Test Item Value Reference Range Interpretation Comments MAGNESIUM (test code = See_[place] [address]-0) [facility], [place]. [address] [facility] [address] [place], [place] [address] CLIA NO. [id number] Unle ss Otherwise Indic ated, All Testing Perform ed At: [facility], [address] [place] [address] Laboratory Dire ctor: Teresa Maldonado CLIA Number [id number] [place] o. [id number] [Automated mess age] The system which ge nerated this result tra nsmitted reference range : 1.6 - 2.6 MG/DL. The refe rence range was not used to interpret this result as normal/abnormal . [facility] CenterCB W/AUTO DIFF WITH [id number] 14:39:51 Test Item Value Reference Range Interpretation Comments WHITE BLOOD CELL COUNT See_Comment [Aut omated message] (test code = 98948-9) The sy stem which generated this result transmitted ref erence range: 3.5 - 11 .0 K/UL. The refer ence range was not u sed to interpret this result as normal/abnor mal. RED BLOOD CELL COUNT See_Comment [Autom ated message] (test code = 73338-1) The sy stem which generated this result transmitted ref erence range: 3.80 - 5 .40 M/UL. The refer ence range was not u sed to interpret this result as normal/abnor mal. HEMOGLOBIN (test code = See_Comment H [Au tomated message] 718-7) The system whic h generated this result transmitted ref erence range: 11.5 - 1 5.5 G/DL. The refer ence range was not u sed to interpret this result as normal/abnor mal. HEMATOCRIT (test code = 45.5 % 34-45 H 06216-9) MEAN CORPUSCULAR VOLUME 94.0 fL 80-99 (test code = 98917-7) MEAN CORPUSCULAR 34.1 PG 25-33 H HEMOGLOBIN (test code = 32421-9) MEAN CORPUSCULAR See_Comment H [Automated message] HEMOGLOBIN CONC (test The sy stem which code = 90072-5) generated th is result transmitted ref erence range: 31.0 - 3 6.0 G/DL. The refer ence range was not u sed to interpret this result as normal/abnor mal. RED CELL DISTRIBUTION 14.9 % 11.5-15 WIDTH (test code = 58709-0) NEUTROPHILS % (test code 58 % = 97058-0) LYMPHOCYTES % (test code 32 % = 81666-3) MONOCYTES % (test code = 6 % 60690-1) EOSINOPHILS % (test code 4 % = 52852-7) BASOPHILS % (test code = 0 % 14936-6) PLATELET COUNT (test See_Comment TESTI NG PERFORMED code = 61930-9) AT [facility], [facility]. [address], [address] [place] [address] CLIA NO. [id number] [Aut omated message] The sy stem which generated this result transmit griffin reference range : 130 - 400 K/UL. The reference range was not used to int erpret this result as normal/abnormal . NEUTROPHILS ABSOLUTE See_Comment [Autom ated message] COUNT (test code = The syste m which 44643-3) generated this result transmitted ref erence range: 1.50 - 7 .50 K/UL. The refer ence range was not u sed to interpret this result as normal/abnor mal. LYMPHOCYTES ABSOLUTE See_Comment [Autom ated message] COUNT (test code = The syste m which 58434-3) generated this result transmitted ref erence range: 1.00 - 4 .00 K/UL. The refer ence range was not u sed to interpret this result as normal/abnor mal. MONOCYTES ABSOLUTE COUNT See_Comment [A utomated message] (test code = 76201-3) The sy stem which generated this result transmitted ref erence range: 0.20 - 1 .00 K/UL. The refer ence range was not u sed to interpret this result as normal/abnor mal. BASOPHILS ABSOLUTE COUNT See_Comment Un less Otherwise (test code = 45692-5) Indica griffin, All Testing Perform ed At: [facility], [address] [facility] [place] [address] Laborator y Director: Connor Nicole M.D. CLIA Number [id number] [place] o. [id number] [Autom ated message] The sy stem which generated this result transmit griffin reference range : 0.00 - 0.20 K/UL. Th e reference range was not used to int erpret this result as normal/abnormal . Lab Interpretation (test Abnormal code = 38225-1) [facility], EXTREMITY, LOWER, JOINT, WITHOUT / WITH IV CONTRAST, [id number] 13:33:00Persistent pain, h/o metastatic RCCPersistent pain, h/o metastatic RCCUnlisted Reason for Exam - Click Yes and Enter Reason Below->YesUnlisted Reason for Exam->Hip pain, acute, right; Cancer of ri ght kidney (HCCode) (HCC) [facility] 1960 Sex: FFINAL REPORT TECHNIQUE:Magnetic resonance imaging of the right HIP was performed WITH and WITHOUT injected contrast.Contrast: 12 cc of MultiHance HISTORY: Acute right hip pain, cancer right kidney COMPARISON: CT abdomen and pelvis 08/03/2020 and 10/11/2018 DISCUSSION: Bone: No acute fracture or osteonecrosis. No infiltrative bone marrow replacing signal abnormality. No aggressive osseous lesions suggest metastatic disease.Oval 8 mm T2 hyperintense lesion within the proximal right femoral metaphysis with questionable subtle enhancement and no aggressive features, likely represents small enchondroma which has been stable from 2019. Acetabular labrum: No displaced labral tear. Articular Cartilage:Low-grade cartilage thinning and fraying. No focal defect. Muscles and tendons: Visualized pelvic musculature is normal in size and signal.Visualized right hip tendons are intact and unremarkable. Soft tissues:No focal soft tissue abnormality or enhancing lesion.Status post hysterectomy. Visualized portions of intrapelvic organs are otherwise unremarkable. IMPRESSION: 1. No acute osseous or soft tissue abnormality. 2. Mild degenerative changes of the right hip with low-grade cartilage thinning/fraying. 3. Incidentally noted subcentimeter enchondroma in the proximal right femoral metaphysis, which is stable from 2019 Signed: Live Lopez MDReport Verified Date/Time: 11/12/2021 13:33:30 Reading Location: [facility] Reading Room [address] [place] [address] COMPREHENSIVE METABOLIC [id number] 17:02:19 Test Item Value Reference Range Interpretation Comments GLUCOSE (test code = See_Comment [Autom ated message] 2975-7) The system [employer] generated this result transmitted ref erence range: 70 - 99 MG/DL. The reference r edu was not used to interpret this result as normal/abnor mal. BLOOD UREA NITROGEN See_Comment [Automa griffin message] (test code = 3091-6) The [employer] tem which generated this result transmitted ref erence range: 6 - 20 M G/DL. The reference r edu was not used to interpret this result as normal/abnor mal. CREATININE (test code = See_Comment [Au tomated message] 2160-0) The system [employer] generated this result transmitted ref erence range: 0.6 - 1. 3 MG/DL. The refe rence range was not u sed to interpret this result as normal/abnor mal. EGFR (test code = See_Comment [Automate d message] 64422-8) The system [employer] generated this result transmitted ref erence range: >60 ML/MIN/1.73. Th e reference range was not used to int erpret this result as normal/abnormal . BUN/CREAT RATIO (test See_Comment [Auto mated message] code = 3097-3) The system [employer]^It generated this result transmitted ref erence range: 6 - 28 R ATIO. The reference r edu was not used to interpret this result as normal/abnor mal. SODIUM (test code = See_Comment L RESULTS RECHECKED AND 2951-2) VERIFIED [Autom ated message] The sy stem which generated this result transmit griffin reference range : 133 - 146 MEQ/L. The reference range was not used to int erpret this result as normal/abnormal . POTASSIUM (test code = See_Comment [Aut omated message] 2823-3) The system [employer] generated this result transmitted ref erence range: 3.5 - 5. 4 MEQ/L. The refe rence range was not u sed to interpret this result as normal/abnor mal. CHLORIDE (test code = See_Comment L [Auto mated message] 5-0) The system [employer] generated this result transmitted ref erence range: 100 - 11 2 MEQ/L. The refe rence range was not u sed to interpret this result as normal/abnor mal. CO2 (test code = See_Comment [Automated message] 1962-8) The system [employer] generated this result transmitted ref erence range: 21 - 30 MEQ/L. The reference r edu was not used to interpret this result as normal/abnor mal. CALCIUM (test code = See_Comment [Autom ated message] 15404-3) The system [employer] generated this result transmitted ref erence range: 8.5 - 10 .5 MG/DL. The refe rence range was not u sed to interpret this result as normal/abnor mal. PROTEIN TOTAL (test See_Comment [Automa griffin message] code = 2885-2) The system [employer]^It generated this result transmitted ref erence range: 6.1 - 8. 1 G/DL. The reference r edu was not used to interpret this result as normal/abnor mal. ALBUMIN (test code = See_Comment [Autom ated message] 33684-9) The system [employer] generated this result transmitted ref erence range: 3.4 - 4. 8 G/DL. The reference r edu was not used to interpret this result as normal/abnor mal. GLOBULINS, SERUM, TOTAL See_Comment [Au tomated message] (test code = 34616-8) The sy stem which generated this result transmitted ref erence range: 1.9 - 3. 7 G/DL. The reference r edu was not used to interpret this result as normal/abnor mal. A/G RATIO (test code = See_Comment [Aut omated message] 1759-0) The system [employer] generated this result transmitted ref erence range: 1.0 - 2. 6 RATIO. The refe rence range was not u sed to interpret this result as normal/abnor mal. BILIRUBIN TOTAL (test See_Comment [Auto mated message] code = 1975-2) The system [facility] generated this result transmitted ref erence range: <=1.2 MG /DL. The reference r edu was not used to interpret this result as normal/abnor mal. ALKALINE PHOSPHATASE 80 U/L 30-132 (test code = 6768-6) AST (SGOT) (test code = 35 U/L 7-56 1920-8) ALT (SGPT) (test code = 43 U/L 3-47 Unl ess Otherwise 1744-2) Indicated, All Testing Performed At: [facility], [address] [place] [address] [facility] Director: Connor Nicole M.D. CLIA Number [id number] [place] o. [id number] Lab Interpretation Abnormal (test code = 32952-1) [facility] [id number] 16:54:42 Test Item Value Reference Range Interpretation Comments MAGNESIUM (test code = See_[place] [address]-9) [facility], [place]. [address] [facility] [place], [place] [address] CLIA NO. [id number] Unle ss Otherwise Indic ated, All Testing Perform ed At: [facility], [address] [place] [address] Laboratory Dire ctor: Teresa Maldonado. CLIA Number [id number] Cap Accreditation [place] o. [id number] [Automated mess age] The system which ge nerated this result tra nsmitted reference range : 1.6 - 2.6 MG/DL. The refe rence range was not used to interpret this result as normal/abnormal . [facility] W/AUTO DIFF WITH [id number] 16:34:07 Test Item Value Reference Range Interpretation Comments WHITE BLOOD CELL COUNT See_Comment [Aut omated message] (test code = 68185-2) The sy stem which generated this result transmitted ref erence range: 3.5 - 11 .0 K/UL. The refer ence range was not u sed to interpret this result as normal/abnor mal. RED BLOOD CELL COUNT See_Comment [Autom ated message] (test code = 91618-1) The sy stem which generated this result transmitted ref erence range: 3.80 - 5 .40 M/UL. The refer ence range was not u sed to interpret this result as normal/abnor mal. HEMOGLOBIN (test code = See_Comment [Au tomated message] 718-7) The system whic h generated this result transmitted ref erence range: 11.5 - 1 5.5 G/DL. The refer ence range was not u sed to interpret this result as normal/abnor mal. HEMATOCRIT (test code = 42.9 % 34-45 45715-0) MEAN CORPUSCULAR VOLUME 95.1 fL 80-99 (test code = 34699-1) MEAN CORPUSCULAR 34.4 PG 25-33 H HEMOGLOBIN (test code = 16119-0) MEAN CORPUSCULAR See_Comment H [Automated message] HEMOGLOBIN CONC (test The sy stem which code = 50199-1) generated th is result transmitted ref erence range: 31.0 - 3 6.0 G/DL. The refer ence range was not u sed to interpret this result as normal/abnor mal. RED CELL DISTRIBUTION 12.9 % 11.5-15 WIDTH (test code = 60430-1) NEUTROPHILS % (test code 62 % = 21100-7) LYMPHOCYTES % (test code 28 % = 55930-0) MONOCYTES % (test code = 5 % 94099-8) EOSINOPHILS % (test code 4 % = 29923-1) BASOPHILS % (test code = 1 % 52039-6) PLATELET COUNT (test See_Comment TESTIN G PERFORMED AT code = 45194-8) [facility] [employer], [place]. [address], [address] [place] [address] CLIA NO. [id number] [Aut omated message] The sy stem which generated this result transmit griffin reference range : 130 - 400 K/UL. The reference range was not used to int erpret this result as normal/abnormal . NEUTROPHILS ABSOLUTE See_Comment [Autom ated message] COUNT (test code = The syste m which 93953-5) generated this result transmitted ref erence range: 1.50 - 7 .50 K/UL. The refer ence range was not u sed to interpret this result as normal/abnor mal. LYMPHOCYTES ABSOLUTE See_Comment [Autom ated message] COUNT (test code = The syste m which 42196-3) generated this result transmitted ref erence range: 1.00 - 4 .00 K/UL. The refer ence range was not u sed to interpret this result as normal/abnor mal. MONOCYTES ABSOLUTE COUNT See_Comment [A utomated message] (test code = 00508-0) The sy stem which generated this result transmitted ref erence range: 0.20 - 1 .00 K/UL. The refer ence range was not u sed to interpret this result as normal/abnor mal. BASOPHILS ABSOLUTE COUNT See_Comment Un less Otherwise (test code = 37371-0) Indica griffin, All Testing Perform ed At: [facility], [address] [place] [address] Laborator y Director: Connor Nicole M.D. CLIA Number [id number] Cap Accreditation [place] o. [id number] [Autom ated message] The sy stem which generated this result transmit griffin reference range : 0.00 - 0.20 K/UL. Th e reference range was not used to int erpret this result as normal/abnormal . Lab Interpretation (test Abnormal code = 62644-6) [facility] CenterCOMPRE[facility] METABOL[facility] [id number] 08:30:33 Test Item Value Reference Range Interpretation Comments TOTAL PROTEIN 6.3 gm/dL 6.0-8.3 Specimen sligh tly (BEAKER) (test code hemolyze d = 770) ALBUMIN (BEAKER) 4.3 g/dL 3.5-5.0 Specimen sl ightly (test code = 1145) hemolyzed ALKALINE PHOSPHATASE 51 U/L 40-150 (BEAKER) (test code = 346) BILIRUBIN TOTAL 0.2 mg/dL 0.2-1.2 Specimen sli ghtly (BEAKER) (test code hemolyze d = 377) SODIUM (BEAKER) 127 meq/L 136-145 L (test code = 381) POTASSIUM (BEAKER) 4.6 meq/L 3.5-5.1 Specimen slightly (test code = 379) hemolyzed CHLORIDE (BEAKER) 99 meq/L 98-107 (test code = 382) CO2 (BEAKER) (test 28 meq/L 22-29 code = 355) BLOOD UREA NITROGEN 6 mg/dL 7-21 L (BEAKER) (test code = 354) CREATININE (BEAKER) 0.72 mg/dL 0.57-1.25 Specimen slightly (test code = 358) hemolyzed GLUCOSE RANDOM 92 mg/dL 70-105 (BEAKER) (test code = 652) CALCIUM (BEAKER) 8.9 mg/dL 8.4-10.2 (test code = 697) AST (SGOT) (BEAKER) 16 U/L 5-34 Specimen slightly (test code = 353) hemolyzed ALT (SGPT) (BEAKER) 15 U/L 6-55 Specimen slightly (test code = 347) hemolyzed EGFR (BEAKER) (test 82 mL/min/1.73 INSUFF ICIENT code = 1092) sq m CLINICAL DATA T O CALCULATE ESTIM ATED GFR. CBC W/PLT COUNT & AUTO [id number] 08:20:29 Test Item Value Reference Range Interpretation Comments WHITE BLOOD CELL COUNT (BEAKER) 6.8 K/ L 3.5-10.5 (test code = 775) RED BLOOD CELL COUNT (BEAKER) 4.11 M/ L 3.93-5.22 (test code = 761) HEMOGLOBIN (BEAKER) (test code = 14.2 GM/DL 11.2-15.7 410) HEMATOCRIT (BEAKER) (test code = 40.9 % 34.1-44.9 411) MEAN CORPUSCULAR VOLUME (BEAKER) 99.5 fL 79.4-94.8 H (test code = 753) MEAN CORPUSCULAR HEMOGLOBIN 34.5 pg 25.6-32.2 H (BEAKER) (test code = 751) MEAN CORPUSCULAR HEMOGLOBIN CONC 34.7 GM/DL 32.2-35.5 (BEAKER) (test code = 752) RED CELL DISTRIBUTION WIDTH 13.2 % 11.7-14.4 (BEAKER) (test code = 412) PLATELET COUNT (BEAKER) (test 331 K/CU MM 150-450 code = 756) MEAN PLATELET VOLUME (BEAKER) 8.6 fL 9.0-12.3 L (test code = 754) NEUTROPHILS RELATIVE PERCENT 63 % (BEAKER) (test code = 429) LYMPHOCYTES RELATIVE PERCENT 25 % (BEAKER) (test code = 430) MONOCYTES RELATIVE PERCENT 8 % (BEAKER) (test code = 431) EOSINOPHILS RELATIVE PERCENT 3 % (BEAKER) (test code = 432) BASOPHILS RELATIVE PERCENT 1 % (BEAKER) (test code = 437) NEUTROPHILS ABSOLUTE COUNT 4.23 K/ L 1.56-6.13 (BEAKER) (test code = 670) LYMPHOCYTES ABSOLUTE COUNT 1.72 K/ L 1.18-3.74 (BEAKER) (test code = 414) MONOCYTES ABSOLUTE COUNT (BEAKER) 0.55 K/ L 0.24-0.36 H (test code = 415) EOSINOPHILS ABSOLUTE COUNT 0.21 K/ L 0.04-0.36 (BEAKER) (test code = 416) BASOPHILS ABSOLUTE COUNT (BEAKER) 0.04 K/ L 0.01-0.08 (test code = 417) IMMATURE GRANULOCYTES-RELATIVE 0 % 0-1 PERCENT (BEAKER) (test code = 2801) CT, [id number] 11:03:00Unlisted Reason for Exam - Click Yes and Enter Reason Below->YesUnlisted Reason for Exam->Cancer of right kidneyIs this for enterography?->NoWill this procedure require oral contrast?->No [facility] 1960 Sex: FFINAL REPORT CT of the Chest, abdomen and pelvis dated 09/16/2021 COMPARISON: June 03, 2021 Clinical information: Unlisted Reason for ExamCancer of right kidney Comment: Axial images of the chest, abdomen, and pelvis were obtained from thoracic inlet to the pubic symphysis with intravenous contrast. Preintravenous axial images of the abdomen were obtained. This exam was performed according to our departmental dose-optimization program, which includes automated exposure control, adjustment of the mA and/or kV according to patient size and/or use of interactive reconstruction technique. Heart is normal in size. Great vessels are unremarkable. No adenopathy in the mediastinum or perihilar region. Trachea and mainstem bronchi are patent. There is moderate pulmonary emphysema. A stable 1.1 x 1.5 cm nodule is seen in the right upper lobe. A stable 0.9 cm and 0.4 cm nodular lesions are seen in the peripheral of the left lower lobe. A stable 4 mm subpleural nodule is seen in the left lower lobe adjacent to the left major fissure. A new 7 mm nodule is seen in the right mid lobe. Expansile osteolytic lesion is seen involving the right sixth rib posteriorly. Liver and spleen are normal in size. No focal lesion is seen in the liver or the spleen. Gallbladder is contracted. No gallstone or biliary dilatation is noted. Pancreas is unremarkable. A new 1 cm enhancing lesion is seen in the leftadrenal. A 2.2 x 2.9 cm, previously 1.9 x 2.5 cm, enhancing mass is seen in the right adrenal. Both kidneys are normal in size and functioning with bilateral excretion. Patient is status post partial right nephrectomy. A 1.5 x 1.8 cm enhancing lesions seen in the right mid upper lobe adjacent to to the surgical margin. No hydronephrosis, hydroureter, or urolithiasis is noted. Diverticular disease is seen in the large bowel without diverticulitis. The small bowel is normal in caliber. Appendix is notvisualized. Uterus surgically absent. The urinary bladder is contracted. No adenopathy or ascites ispresent in the abdomen or pelvis. Impression: 1. Enhancing mass in the in the right mid upper pole kidney adjacent to to the surgical margin suggestive of residual disease.2. Bilateral adrenal masses.3. Nodular lesions in the right upper, right mid, and left lower lobes.4. Pulmonary emphysema.5. Expansile osteolytic lesion involving the right posterior sixth rib are suggestive of osseous metastasis. S igned: Maurice Jaraeport Verified Date/Time: 09/16/2021 11:03:47 Reading Location: [address] Body Reading Room CT, CHEST, WITH IV [id number] 11:03:00 Unlisted Reason for Exam - Click Yes and Enter Reason Below->Yes Unlisted Reason for Exam->Cancer of right [facility] : 1960 Sex: FFINAL REPORT CT of the Chest, abdomen and pelvis dated 09/16/2021 COMPARISON: June 03, 2021 Clinical information: Unlisted Reason for ExamCancer of right kidney Comment: Axial images of the chest, abdomen, and pelvis were obtained from thoracic inlet to the pubic symphysis with intravenous contrast. Preintravenous axial images of the abdomen were obtained. This exam was performed according to our departmental dose-optimization program, which includes automated exposure control, adjustment of the mA and/or kV according to patient size and/or use of interactive reconstruction technique. Heart is normal in size. Great vessels are unremarkable. No adenopathy in the mediastinum or perihilar region. Trachea and mainstem bronchi are patent. There is moderate pulmonary emphysema. A stable 1.1 x 1.5 cm nodule is seen in the right upper lobe. A stable 0.9 cm and 0.4 cm nodular lesions are seen in the peripheral of the left lower lobe. A stable 4 mm subpleural nodule is seen in the left lower lobe adjacent to the left major fissure. A new 7 mm nodule is seen in the right mid lobe. Expansile osteolytic lesion is seen involving the right sixth rib posteriorly. Liver and spleen are normal in size. No focal lesion is seen in the liver or the spleen. Gallbladder is contracted. No gallstone or biliary dilatation is noted. Pancreas is unremarkable. A new 1 cm enhancing lesion is seen in the leftadrenal. A 2.2 x 2.9 cm, previously 1.9 x 2.5 cm, enhancing mass is seen in the right adrenal. Both kidneys are normal in size and functioning with bilateral excretion. Patient is status post partial right nephrectomy. A 1.5 x 1.8 cm enhancing lesions seen in the right mid upper lobe adjacent to to the surgical margin. No hydronephrosis, hydroureter, or urolithiasis is noted. Diverticular disease is seen in the large bowel without diverticulitis. The small bowel is normal in caliber. Appendix is notvisualized. Uterus surgically absent. The urinary bladder is contracted. No adenopathy or ascites ispresent in the abdomen or pelvis. Impression: 1. Enhancing mass in the in the right mid upper pole kidney adjacent to to the surgical margin suggestive of residual disease.2. Bilateral adrenal masses.3. Nodular lesions in the right upper, right mid, and left lower lobes.4. Pulmonary emphysema.5. Expansile osteolytic lesion involving the right posterior sixth rib are suggestive of osseous metastasis. S igned: Maurice Jara MDReport Verified Date/Time: 09/16/2021 11:03:47 Reading Location: [facility] C013Y CT Body Reading Room COMPREHENSIVE METABOLIC [id number] 09:38:36 Test Item Value Reference Range Interpretation Comments TOTAL PROTEIN 6.9 gm/dL 6.0-8.3 (BEAKER) (test code = 770) ALBUMIN (BEAKER) 4.5 g/dL 3.5-5.0 (test code = 1145) ALKALINE PHOSPHATASE 53 U/L 40-150 (BEAKER) (test code = 346) BILIRUBIN TOTAL 0.2 mg/dL 0.2-1.2 (BEAKER) (test code = 377) SODIUM (BEAKER) 130 meq/L 136-145 L (test code = 381) POTASSIUM (BEAKER) 4.9 meq/L 3.5-5.1 (test code = 379) CHLORIDE (BEAKER) 99 meq/L 98-107 (test code = 382) CO2 (BEAKER) (test 29 meq/L 22-29 code = 355) BLOOD UREA NITROGEN 9 mg/dL 7-21 (BEAKER) (test code = 354) CREATININE (BEAKER) 0.72 mg/dL 0.57-1.25 (test code = 358) GLUCOSE RANDOM 87 mg/dL 70-105 (BEAKER) (test code = 652) CALCIUM (BEAKER) 9.7 mg/dL 8.4-10.2 (test code = 697) AST (SGOT) (BEAKER) 15 U/L 5-34 (test code = 353) ALT (SGPT) (BEAKER) 14 U/L 6-55 (test code = 347) EGFR (BEAKER) (test 82 mL/min/1.73 INSUFF ICIENT code = 1092) sq m CLINICAL DATA T O CALCULATE ESTIM ATED GFR. CBC W/PLT COUNT & AUTO [id number] 09:25:42 Test Item Value Reference Range Interpretation Comments WHITE BLOOD CELL COUNT (BEAKER) 7.3 K/ L 3.5-10.5 (test code = 775) RED BLOOD CELL COUNT (BEAKER) 4.16 M/ L 3.93-5.22 (test code = 761) HEMOGLOBIN (BEAKER) (test code = 14.3 GM/DL 11.2-15.7 410) HEMATOCRIT (BEAKER) (test code = 41.8 % 34.1-44.9 411) MEAN CORPUSCULAR VOLUME (BEAKER) 100.5 fL 79.4-94.8 H (test code = 753) MEAN CORPUSCULAR HEMOGLOBIN 34.4 pg 25.6-32.2 H (BEAKER) (test code = 751) MEAN CORPUSCULAR HEMOGLOBIN CONC 34.2 GM/DL 32.2-35.5 (BEAKER) (test code = 752) RED CELL DISTRIBUTION WIDTH 12.9 % 11.7-14.4 (BEAKER) (test code = 412) PLATELET COUNT (BEAKER) (test 319 K/CU MM 150-450 code = 756) MEAN PLATELET VOLUME (BEAKER) 8.5 fL 9.4-12.3 L (test code = 754) NEUTROPHILS RELATIVE PERCENT 63 % (BEAKER) (test code = 429) LYMPHOCYTES RELATIVE PERCENT 26 % (BEAKER) (test code = 430) MONOCYTES RELATIVE PERCENT 7 % (BEAKER) (test code = 431) EOSINOPHILS RELATIVE PERCENT 4 % (BEAKER) (test code = 432) BASOPHILS RELATIVE PERCENT 0 % (BEAKER) (test code = 437) NEUTROPHILS ABSOLUTE COUNT 4.58 K/ L 1.56-6.13 (BEAKER) (test code = 670) LYMPHOCYTES ABSOLUTE COUNT 1.85 K/ L 1.18-3.74 (BEAKER) (test code = 414) MONOCYTES ABSOLUTE COUNT (BEAKER) 0.52 K/ L 0.24-0.36 H (test code = 415) EOSINOPHILS ABSOLUTE COUNT 0.26 K/ L 0.04-0.36 (BEAKER) (test code = 416) BASOPHILS ABSOLUTE COUNT (BEAKER) 0.03 K/ L 0.01-0.08 (test code = 417) IMMATURE GRANULOCYTES-RELATIVE 0 % 0-1 PERCENT (BEAKER) (test code = 2801) CT, CTANGIO [id number] 14:28:00Unlisted Reason for Exam - Click Yes and Enter Reason Below->No [facility] 1960 Sex: FFINAL REPORT CLINICAL HISTORY: Stroke, follow up TECHNIQUE: Initially, noncontrast head CT images were performed. Contiguous contrast-enhanced axial images through the neck followed by axial images through the head with coronal and sagittal reformations to assess the arterial circulation. 3-D reconstructions were performed using a volume rendered technique separately on a workstation. This exam was performed according to the departmental dose optimization program which includes automated exposure control, adjustment of the mA and/or kV according to the patient size, and/or use of an iterative reconstruction technique. COMPARISON: MRI 08/02/2021 FINDINGS: The punctate acute infarct seenin the mesial right temporal lobe on MRI is not well depicted by CT. There is no intracranial hemorrhage. There is no hydrocephalus or midline shift. The skull is intact. There is no evidence for a [place] proximal branch vessel occlusion. There is a origin right posterior cerebral artery. There is a left posterior communicating artery. There is no evidence for intradural aneurysm. Themajor intradural venous sinuses are patent. There is no hemodynamically significant stenosis in either cervical internal carotid artery by NASCET criteria. The vertebral arteries in the neck are patentincluding their origins. There is right vertebral dominance with a diminutive left vertebral artery.There are dorsal spondylitic changes in the cervical spine. There are scattered subcentimeter lymph nodes in the neck. In the visualized upper lobes, severe emphysematous disease is again seen with a spiculated right upper lobe mass, grossly similar to a chest CT from 06/03/2021. IMPRESSION: No evidencefor a [place] large vessel occlusion. No evidence of hemodynamically significant stenosis in the cervical carotid or vertebral arteries by NASCET criteria. Signed: Rubén Olivas MDReport Verified Date/Time: 08/03/2021 14:28:37 Reading Location: [address] Neuro Reading Room CT, CAROTID, [id number] 14:28:00 Unlisted Reason for Exam - Click Yes and Enter Reason Below->No [facility] 1960 Sex: FFINAL REPORT CLINICAL HISTORY: Stroke, follow up TECHNIQUE: Initially, noncontrast head CT images were performed. Contiguous contrast-enhanced axial images through the neck followed by axial images through the head with coronal and sagittal reformations to assess the arterial circulation. 3-D reconstructions were performed using a volume rendered technique separately on a workstation. This exam was performed according to the departmental dose optimization program which includes automated exposure control, adjustment of the mA and/or kV according to the patient size, and/or use of an iterative reconstruction technique. COMPARISON: MRI 08/02/2021 FINDINGS: The punctate acute infarct seenin the mesial right temporal lobe on MRI is not well depicted by CT. There is no intracranial hemorrhage. There is no hydrocephalus or midline shift. The skull is intact. There is no evidence for a [place] proximal branch vessel occlusion. There is a origin right posterior cerebral artery. There is a left posterior communicating artery. There is no evidence for intradural aneurysm. Themajor intradural venous sinuses are patent. There is no hemodynamically significant stenosis in either cervical internal carotid artery by NASCET criteria. The vertebral arteries in the neck are patentincluding their origins. There is right vertebral dominance with a diminutive left vertebral artery.There are dorsal spondylitic changes in the cervical spine. There are scattered subcentimeter lymph nodes in the neck. In the visualized upper lobes, severe emphysematous disease is again seen with a spiculated right upper lobe mass, grossly similar to a chest CT from 06/03/2021. IMPRESSION: No evidencefor a [place] large vessel occlusion. No evidence of hemodynamically significant stenosis in the cervical carotid or vertebral arteries by NASCET criteria. Signed: Rubén Olivas MDReport Verified Date/Time: 08/03/2021 14:28:37 Reading Location: [address] Neuro Reading Room LIPID [id number] 23:45:48 Test Item Value Reference Range Interpretation Comments TRIGLYCERIDES (BEAKER) (test code = 194 mg/dL 540) CHOLESTEROL (BEAKER) (test code = 191 mg/dL 631) HDL CHOLESTEROL (BEAKER) (test code 62 mg/dL = 976) LDL CHOLESTEROL CALCULATED (BEAKER) 90 mg/dL (test code = 633) Triglyceride Reference Range: Low Risk <150 Borderline 150-199 High Risk 200- 499 Very High Risk >=500Cholesterol Reference Range: Low Risk <200 Borderline 200-239 High Risk >240HDL Cholesterol Reference Range: Low Risk >=60 High Risk <40LDL Cholesterol Reference Range: Optimal <100 Near Optimal 100-129 Borderline 130-159 High 160-189 Very High >=190 Contact Lens Inspector ID - [id number] W/PLT COUNT & AUTO [id number] 21:42:37 Test Item Value Reference Range Interpretation Comments WHITE BLOOD CELL COUNT (BEAKER) 7.8 K/ L 3.5-10.5 (test code = 775) RED BLOOD CELL COUNT (BEAKER) 4.16 M/ L 3.93-5.22 (test code = 761) HEMOGLOBIN (BEAKER) (test code = 14.4 GM/DL 11.2-15.7 410) HEMATOCRIT (BEAKER) (test code = 41.7 % 34.1-44.9 411) MEAN CORPUSCULAR VOLUME (BEAKER) 100.2 fL 79.4-94.8 H (test code = 753) MEAN CORPUSCULAR HEMOGLOBIN 34.6 pg 25.6-32.2 H (BEAKER) (test code = 751) MEAN CORPUSCULAR HEMOGLOBIN CONC 34.5 GM/DL 32.2-35.5 (BEAKER) (test code = 752) RED CELL DISTRIBUTION WIDTH 12.3 % 11.7-14.4 (BEAKER) (test code = 412) PLATELET COUNT (BEAKER) (test 391 K/CU MM 150-450 code = 756) MEAN PLATELET VOLUME (BEAKER) 8.5 fL 9.4-12.3 L (test code = 754) NUCLEATED RED BLOOD CELLS 0 /100 WBC 0-0 (BEAKER) (test code = 413) NEUTROPHILS RELATIVE PERCENT 54 % (BEAKER) (test code = 429) LYMPHOCYTES RELATIVE PERCENT 35 % (BEAKER) (test code = 430) MONOCYTES RELATIVE PERCENT 7 % (BEAKER) (test code = 431) EOSINOPHILS RELATIVE PERCENT 3 % (BEAKER) (test code = 432) BASOPHILS RELATIVE PERCENT 1 % (BEAKER) (test code = 437) NEUTROPHILS ABSOLUTE COUNT 4.21 K/ L 1.56-6.13 (BEAKER) (test code = 670) LYMPHOCYTES ABSOLUTE COUNT 2.74 K/ L 1.18-3.74 (BEAKER) (test code = 414) MONOCYTES ABSOLUTE COUNT (BEAKER) 0.53 K/ L 0.24-0.36 H (test code = 415) EOSINOPHILS ABSOLUTE COUNT 0.23 K/ L 0.04-0.36 (BEAKER) (test code = 416) BASOPHILS ABSOLUTE COUNT (BEAKER) 0.06 K/ L 0.01-0.08 (test code = 417) IMMATURE GRANULOCYTES-RELATIVE 1 % 0-1 PERCENT (BEAKER) (test code = 2801) BASIC METABOLIC [id number] 21:39:35 Test Item Value Reference Range Interpretation Comments SODIUM (BEAKER) 125 meq/L 136-145 L (test code = 381) POTASSIUM (BEAKER) 4.3 meq/L 3.5-5.1 (test code = 379) CHLORIDE (BEAKER) 92 meq/L 98-107 L (test code = 382) CO2 (BEAKER) (test 24 meq/L 22-29 code = 355) BLOOD UREA NITROGEN 9 mg/dL 7-21 (BEAKER) (test code = 354) CREATININE (BEAKER) 0.68 mg/dL 0.57-1.25 (test code = 358) GLUCOSE RANDOM 73 mg/dL 70-105 (BEAKER) (test code = 652) CALCIUM (BEAKER) 9.2 mg/dL 8.4-10.2 (test code = 697) EGFR (BEAKER) (test 88 mL/min/1.73 INSUFF ICIENT CLINICAL code = 1092) sq m DATA TO CALCULA TE ESTIMATED GFR. Contact Lens Inspector ID - [id number] TIME/[id number] 21:25:33 Test Item Value Reference Range Interpretation Comments PROTIME (BEAKER) 13.0 seconds 11.9-14.2 (test code = 759) INR (BEAKER) (test 1.00 See_Comment [Automat ed message] code = 370) The system [employer] generated this result transmitted ref erence range: <=5.90. The reference range was not used to int erpret this result as normal/abnormal . RECOMMENDED COUMADIN/WARFARIN INR THERAPY RANGESSTANDARD DOSE: 2.0 - 3.0 Includes: PROPHYLAXIS for venous thrombosis, systemic embolization; TREATMENT for venous thrombosis and/or pulmonary embolus.HIGH RISK: Target INR is 2.5-3.5 for patients with mechanical heart valves.MR, BRAIN, WITHOUT / WITH IV CONTRAST 2021-07-02 12:03:00H/o RCC, metastatic, and N/VUnlisted Reason for Exam - Click Yes and Enter Reason Below->YesUnlisted Reason for Exam->Cancer of right kidney :Nausea and vomiting, intractability of vomiting not specified, unspecified vomiting type [facility] : 1960 Sex: FFINAL REPORT MR, BRAIN, WITHOUT / WITH IV CONTRAST. History: 60-year-old female with history of right renal cell carcinoma presents with intractable nausea and vomiting. Comparison studies: None. Technique: Multiplanar, multisequence images of the brain without and with IV contrast. Intravenous contrast: 6 cc of Gadavist. FINDINGS: Scalp: No abnormal signal. No mass.Bone marrow: Normal signal intensity. Incidental small left occipital interdiploic arachnoid granulations. Extra-axial: No mass, fluid collection, or hemorrhage. Brain sulci: Appropriate for age.Ventricles: Normal in size.No hydrocephalus.Extra axial spaces: No mass, no fluid collection. No abnormal left meningeal or dural enhancement. Parenchyma:Small focus of restricted diffusion and T2 FLAIR hyperintensity in the right anterior temporal periventricular region is without associated hemorrhage. No other abnormal foci of restricted diffusion. Scattered T2/FLAIR hyperintense foci in the supratentorial white matter and in the nain are nonspecific but are most compatible with chronic microvascular ischemic changes. No mass, hemorrhage or enhancing abnormality. Suprasellar region: No abnormalities.Craniocervical junction: No abnormalities. Patent foramen magnum. No Chiari I malformation.Vessels: Normal flow-voids in the arteries and sinuses. Incidental findings: Small right sphenoid sinus retention cyst IMPRESSION: 1.Acute small nonhemorrhagic right anterior temporal periventricular infarct. 2.No evidence of intracranial or calvarial metastatic disease.3.Mild chronic microvascular ischemic changes. Findings relayed to Dr. ALYSIA SHELL (referring physician) by Rafael Sutton (PGY-6) over urgent EPIC securechat on 07/02/2021 at 1150 hours. Finding acknowledged at 1151 hours. Signed: Anastasia Hernandez [facility] Verified Date/Time: 07/02/2021 12:03:17 COMPREHENSIVE METABOLIC [id number] 16:55:00 Test Item Value Reference Range Interpretation Comments GLUCOSE (test code = See_Comment [Autom ated message] 2345-7) The system [employer] generated this result transmitted ref erence range: 70 - 99 MG/DL. The reference r edu was not used to interpret this result as normal/abnor mal. BLOOD UREA NITROGEN See_Comment [Automa griffin message] (test code = 3091-6) The [employer] tem which generated this result transmitted ref erence range: 6 - 20 M G/DL. The reference r edu was not used to interpret this result as normal/abnor mal. CREATININE (test code See_Comment L [Auto mated message] = 2160-0) The system [facility] generated this result transmitted ref erence range: 0.6 - 1. 3 MG/DL. The refe rence range was not u sed to interpret this result as normal/abnor mal. EGFR (test code = See_Comment [Automate d message] 32583-6) The system [facility] generated this result transmitted ref erence range: >60 ML/MIN/1.73. Th e reference range was not used to int erpret this result as normal/abnormal . BUN/CREAT RATIO (test See_Comment [Auto mated message] code = 3097-3) The system [facility] generated this result transmitted ref erence range: 6 - 28 R ATIO. The reference r edu was not used to interpret this result as normal/abnor mal. SODIUM (test code = See_Comment L RESULT S RECHECKED 2951-2) AND VERIFIED [Automated mess age] The system [facility] generated this result transmitted ref erence range: 133 - 14 6 MEQ/L. The refe rence range was not u sed to interpret this result as normal/abnor mal. POTASSIUM (test code = See_Comment H [Aut omated message] 9643-3) The system [facility] generated this result transmitted ref erence range: 3.5 - 5. 4 MEQ/L. The refe rence range was not u sed to interpret this result as normal/abnor mal. CHLORIDE (test code = See_Comment L [Auto mated message] 2074-0) The system [facility] generated this result transmitted ref erence range: 100 - 11 2 MEQ/L. The refe rence range was not u sed to interpret this result as normal/abnor mal. CO2 (test code = See_Comment [Automated message] 8) The system [facility] generated this result transmitted ref erence range: 21 - 30 MEQ/L. The reference r edu was not used to interpret this result as normal/abnor mal. CALCIUM (test code = See_Comment [Autom ated message] 13713-2) The system [facility] generated this result transmitted ref erence range: 8.5 - 10 .5 MG/DL. The refe rence range was not u sed to interpret this result as normal/abnor mal. PROTEIN TOTAL (test See_Comment [Automa griffin message] code = 2885-2) The system [facility] generated this result transmitted ref erence range: 6.1 - 8. 1 G/DL. The refer ence range was not u sed to interpret this result as normal/abnor mal. ALBUMIN (test code = See_Comment [Autom ated message] 06250-6) The system [facility] generated this result transmitted ref erence range: 3.4 - 4. 8 G/DL. The refer ence range was not u sed to interpret this result as normal/abnor mal. GLOBULINS, SERUM, See_Comment [Automate d message] TOTAL (test code = The syste m which 48115-4) generated this result transmitted ref erence range: 1.9 - 3. 7 G/DL. The refer ence range was not u sed to interpret this result as normal/abnor mal. A/G RATIO (test code = See_Comment [Aut omated message] 1759-0) The system [facility] generated this result transmitted ref erence range: 1.0 - 2. 6 RATIO. The refe rence range was not u sed to interpret this result as normal/abnor mal. BILIRUBIN TOTAL (test See_Comment [Auto mated message] code = 1975-2) The system [facility] generated this result transmitted ref erence range: <=1.2 MG /DL. The reference r edu was not used to interpret this result as normal/abnor mal. ALKALINE PHOSPHATASE 76 U/L 30-132 (test code = 6768-6) AST (SGOT) (test code 24 U/L 7-56 = 1920-8) ALT (SGPT) (test code 20 U/L 3-47 TESTI NG PERFORMED AT = 1744-2) [facility] [place] [address] [place] [address] CLIA NO. [id number] Unle ss Otherwise Indic ated, All Testing Per formed At: [facility], [address] [place] [address] Laborator y Director: Connor Nicole M.D. CLIA Number [id number] [employer] Accreditation N o. AMANDA (test code = AMANDA) PT FASTING Lab Interpretation Abnormal (test code = 88388-6) [id number] 16:49:16 Test Item Value Reference Range Interpretation Comments MAGNESIUM (test code See_Comment TESTIN G PERFORMED AT = 34769-6) [facility] [place] [address] [facility], [address] [place], [place] [address] CLIA NO. [id number] Unless Otherwise Indic ated, All Testing Per formed At: [facility], [address] [place] [address] Laboratory Dire ctor: Connor nichols M.D. CLIA Number [id number] Cap Accreditati on No. [Autom ated message] The sy stem which generated this result transmit griffin reference range : 1.6 - 2.6 MG/DL. The reference range was not used to interpr et this result as normal/abnormal . AMANDA (test code = PT FASTING AMANDA) [facility] DIFF WITH [id number] 16:06:09 Test Item Value Reference Range Interpretation Comments WHITE BLOOD CELL COUNT See_Comment [Aut omated message] (test code = 10164-7) The sy stem which generated this result transmit grififn reference range : 3.5 - 11.0 K/UL. e reference range was not used to interpret this result as normal/abnormal . RED BLOOD CELL COUNT See_Comment [Autom ated message] (test code = 74103-9) The sy stem which generated this result transmit griffin reference range : 3.80 - 5.40 M/U L. The reference r edu was not used to interpret this result as normal/abnormal . HEMOGLOBIN (test code = See_Comment [Au tomated message] 718-7) The system whic h generated this result transmit griffin reference range : 11.5 - 15.5 G/D L. The reference r edu was not used to interpret this result as normal/abnormal . HEMATOCRIT (test code = 41.0 % 34.0-45.0 48019-9) MEAN CORPUSCULAR VOLUME 94.9 fL 80.0-99.0 (test code = 78336-3) MEAN CORPUSCULAR 34.5 PG 25.0-33.0 H HEMOGLOBIN (test code = 15954-7) MEAN CORPUSCULAR See_Comment H [Automated message] HEMOGLOBIN CONC (test The sy stem which code = 09358-4) generated th is result transmit griffin reference range : 31.0 - 36.0 G/D L. The reference r edu was not used to interpret this result as normal/abnormal . RED CELL DISTRIBUTION 11.9 % 11.5-15.0 WIDTH (test code = 06507-0) NEUTROPHILS % (test 70 % code = 75590-7) LYMPHOCYTES % (test 21 % code = 67122-5) MONOCYTES % (test code 7 % = 76347-0) EOSINOPHILS % (test 2 % code = 34970-6) BASOPHILS % (test code 0 % = 27327-6) PLATELET COUNT (test See_Comment TESTIN G PERFORMED code = 61031-0) AT [facility], [facility]. [address], [address] [facility] [place] [address] CLIA NO. [id number] [Automated mess age] The system whic h generated this result transmit griffin reference range : 130 - 400 K/UL. The reference range was not used to interpret this result as normal/abnormal . NEUTROPHILS ABSOLUTE See_Comment [Autom ated message] COUNT (test code = [facility] which 63583-8[facility] generated this result transmit griffin reference range : 1.50 - 7.50 K/U L. The reference r edu was not used to interpret this result as normal/abnormal . LYMPHOCYTES ABSOLUTE See_Comment [Autom ated message] COUNT (test code = The syste which 12388-2) generated this result transmit griffin reference range : 1.00 - 4.00 K/U L. The reference r edu was not used to interpret this result as normal/abnormal . MONOCYTES ABSOLUTE See_Comment [Automat ed message] COUNT (test code = The syste m which 75657-4) generated this result transmit griffin reference range : 0.20 - 1.00 K/U L. The reference r edu was not used to interpret this result as normal/abnormal . BASOPHILS ABSOLUTE See_Comment Unless O therwise COUNT (test code = Indicated , All 25437-5) Testing Perform ed At: [facility], [address] [facility], [place] [address] Laborator y Director: Mykel MaldonadoIA Number [id number] [facility] [place]. [address]-09 [Automated mess age] The system [employer] generated this result transmit griffin reference range : 0.00 - 0.20 K/U L. The reference r edu was not used to interpret this result as normal/abnormal . AMANDA (test code = AMANDA) PT FASTING Lab Interpretation Abnormal (test code = 83243-2) [facility], WITH IV [id number] 16:19:00 Restaging RCC, do between 06/02/2021 and 06/09/2021Unlisted Reason for Exam - Click Yes and Enter ReasonBelow->YesUnlisted Reason for Exam->Cancer [facility] right [facility] : 1960 Sex: FFINAL REPORT CT Chest, abdomen, and pelvis with contrast History:Malignant neoplasm ofright kidney Comparison:03/04/2021 Technique: serial axial imaging was performed following up to 100cc of non ionic iodinated intravenous contrast as per departmental protocol. Multiplanar images are rec onstructed and reviewed when indicated. This CT examination is performed using one or more of the following dose reduction techniques: Automated exposure control, adjustment of the mA and /or kV according to patient size, and/or use of iterative reconstruction technique. Findings:No mediastinal or hilar lymphadenopathy. Normal size heart. No pericardial effusion. No thoracic aortic aneurysm or dissection. No central pulmonary arterial filling defect. Patent central airways. No pleural effusion or pneumothorax. Significant underlying pulmonary emphysema. There is a focal spiculated opacity within the right upper lobe measuring 2.5 cm in size which shows no significant interval change. There is a probable focus of nodular scarring within the left lower lobe which shows no significant change. The lungs are otherwise clear. Unremarkable appearance of pancreas and spleen. There is focal fatty infiltration of the liver along the falciform ligament. The liver is otherwise unremarkable. The gallbladderappears absent. A 2.5 x 1.9 cm right adrenal mass shows no significant change in size. Unremarkable appearance of the left adrenal gland. Postoperative changes are again seen within the right kidney. No recurrent mass is apparent. The kidneys are otherwise unremarkable. Unremarkable appearance of the ureters and bladder. . No small or large bowel obstruction. No apparent bowel wall thickening. No findings to indicate acute appendicitis. No free fluid or lymphadenopathy. No abdominal aortic aneurysm. 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 No new osseous metastasis are seen. Impression: 1. Stable appearance of spiculated right upper lobe lung mass, right adrenal mass, and right posterior sixth rib metastasis.2. No new sites of disease.3. Stable postsurgical changes within the right kidney. Signed: Martin Reyna MDReport Verified Date/Time: 06/07/2021 16:19:22 Reading Location: [facility] Radiology Reading Room CT, [id number] 16:19:00Restaging RCC, do between 06/02/2021 and 06/09/2021Unlisted Reason for Exam - Click Yes and Enter ReasonBelow->YesUnlisted Reason for Exam->Cancer of right kidneyIs this for enterography?->NoWillthis procedure require oral contrast?->No [facility] 1960 Sex: FFINAL REPORT CT Chest, abdomen, and pelvis with contrast History:Malignant neoplasm ofright kidney Comparison:03/04/2021 Technique: serial axial imaging was performed following up to 100cc of non ionic iodinated intravenous contrast as per departmental protocol. Multiplanar images are rec onstructed and reviewed when indicated. This CT examination is performed using one or more of the following dose reduction techniques: Automated exposure control, adjustment of the mA and /or kV according to patient size, and/or use of iterative reconstruction technique. Findings:No mediastinal or hilar lymphadenopathy. Normal size heart. No pericardial effusion. No thoracic aortic aneurysm or dissection. No central pulmonary arterial filling defect. Patent central airways. No pleural effusion or pneumothorax. Significant underlying pulmonary emphysema. There is a focal spiculated opacity within the right upper lobe measuring 2.5 cm in size which shows no significant interval change. There is a probable focus of nodular scarring within the left lower lobe which shows no significant change. The lungs are otherwise clear. Unremarkable appearance of pancreas and spleen. There is focal fatty infiltration of the liver along the falciform ligament. The liver is otherwise unremarkable. The gallbladderappears absent. A 2.5 x 1.9 cm right adrenal mass shows no significant change in size. Unremarkable appearance of the left adrenal gland. Postoperative changes are again seen within the right kidney. No recurrent mass is apparent. The kidneys are otherwise unremarkable. Unremarkable appearance of the ureters and bladder. . No small or large bowel obstruction. No apparent bowel wall thickening. No findings to indicate acute appendicitis. No free fluid or lymphadenopathy. No abdominal aortic aneurysm.Stable appearance of mixed lytic/blastic metastasis of the right posterior sixth rib with associatedpathologic fracture. No new osseous metastasis are seen. Impression: 1. Stable appearance of spiculated right upper lobe lung mass, right adrenal mass, and right posterior sixth rib metastasis.2. No new sites of disease.3. Stable postsurgical changes within the right kidney. Signed: [facility] Verified Date/Time: 06/07/2021 16:19:22 Reading Location: [facility] Radiology Reading Room AFB CULTURE + SMEAR (NON-SPUTUM)2021-06-03 14:09:26 Test Item Value Reference Range Interpretation Comments CULTURE (BEAKER) (test No acid-fast bacilli code = 1095) isolated in 42 days AFB SMEAR (BEAKER) No acid fast bacilli (test code = 994) seen AFB CULTURE + SMEAR (NON-SPUTUM)2021-05-27 08:38:27 Test Item Value Reference Interpretation Comments Range CULTURE (BEAKER) MYCOBACTERIUM A Mycobacter ium (test code = 1095) AVIUM aviumIden tification and susceptibil ity performed by:[facility], Dept. of Microbiology Re search, Dr. [facility], [address] [address] Amikacin (test mcg/mL S code = 1) Clarithromycin mcg/mL S (test code = 42) AFB SMEAR (BEAKER) No acid fast (test code = 994) bacilli seen Identification by sequencing: By partial 16S rRNA gene sequencing, this isolate matches the M.avium type strain 100%.FUNGUS CULTURE + [id number] 00:24:24 Test Item Value Reference Range Interpretation Comments CULTURE (BEAKER) (test No fungus isolated in code = 1095) 28 days FUNGUS SMEAR (BEAKER) No fungal elements seen (test code = 1406) FUNGUS CULTURE + [id number] 00:24:24 Test Item Value Reference Range Interpretation Comments CULTURE (BEAKER) (test No fungus isolated in code = 1095) 28 days FUNGUS SMEAR (BEAKER) No fungal elements seen (test code = 1406) MISCELLANEOUS LAB [id number] 07:41:28 Test Item Value Reference Range Interpretation Comments SCAN RESULT (test code = See scanned report [id number]) See scanned reportBRONCHIAL CULTURE + GRAM [id number] 10:07:14 Test Item Value Reference Range Interpretation Comments CULTURE A 2+ Same organis m has (BEAKER) (test been isolated from code = 1095) cultures(s) of the same body site and collection date . Repeat identification and susceptibility testing performed only after consultation wi th the clinical microb iology laboratory.Refe r to previous cultur e of* - Alpha Hemolytic Streptococcus m ost closely resembl es * - Streptococcus pseudopneumonia e GRAM STAIN 1+ WBCs RESULT (BEAKER) (test code = 1123) GRAM STAIN <1+ gram RESULT (BEAKER) positive rods (test code = 177283) GRAM STAIN <1+ gram RESULT (BEAKER) positive cocci (test code = in chains and 562031) pairs BRONCHIAL CULTURE + GRAM [id number] 10:03:40 Test Item Value Reference Interpretation Comments Range CULTURE (BEAKER) ALPHA HEMOLYTIC A 4+ Alpha -hemolytic (test code = STREPTOCOCCUS streptococcusM ost 1095) closely resembl es* - Streptococcus pseudopneumonia e Ceftriaxone See_Comment S [Automated mes cecilia] (test code = 52) The system which generated this result transmitted ref erence range: Suscepti ble 0-1 , Resistant <0 or >1 . The reference r edu was not used to interpret this result as normal/abnor mal. Penicillin G R (test code = 3) Vancomycin (test See_Comment S [Automated message] code = 13) The system whic h generated this result transmitted ref erence range: Suscepti ble 0-1 , No Interpreta tions Established <0 or >1 . The reference r edu was not used to interpret this result as normal/abnor mal. GRAM STAIN 2+ WBCs RESULT (BEAKER) (test code = 1123) GRAM STAIN 3+ gram positive RESULT (BEAKER) cocci in chains (test code = and pairs 717311) [id number] 14:35:36Medical Cytology Report Case: [id number] Authorizing Provider: Tamera Fowler, Collected: 04/14/2021 11:52 AM Ordering Location: [facility] Received: 04/14/2021 02:56 PM Pathologist: Linda See MD Specimen: Lung, Right Upper Lobe LUNG, RIGHT UPPER LOBE, BAL (CYTOSPINS): -NEGATIVE FOR MALIGNANCY The GMS stain is negative for Pneumocystis organisms and other fungi. No viral inclusions are seen. Signing Pathologist Direct Phone Line: [phone] signed by Linda See MD on 04/15/2021 at 2:35 PMThe specimen is composed of benign appearing bronchial epithelial cells, alveolar macrophages, and a small amount of acute inflammation. [id number], 15914Wzmz nodules; necrotizing granuloma on biopsy on Rt lungLUNG, RIGHT UPPER LOBE, BAL Received 25 ml cytorich red fixative sample; prepared 3 cytospins, 1 GMS Performed. SatisfactoryThe interpretation of this case included the use of immunohistochemistry or special stains.Control Slides Examined: In-house known positive controls were evaluated along with the test tissue. These control slides run alongside of the patients sample show appropriate staining. Internal positive and negative controls when available are evaluated Immunohistochemistry technical testing was performed at [facility], Pathology Laboratory where it was developed and its performance characteristics were determined. It hasnot been cleared or approved by the U.S. Food and Drug Administration. The FDA has determined that such clearance or approval is not necessary. The test is used for clinical purposes. It should not be regarded as investigational or for research. This laboratory is certified under the Clinical Laboratory Improvement Amendments of 1988 (CLIA-88) as qualified to perform high complexity clinical laboratory testing.[facility], Department of Pathology, [address] [place] [address], [facility], Department of [facility], [address] [place] [address], [facility]St[facility], Department of Pathology, [address] [place] [address], FLHB/CONCENTRATION [id number] 11:38:11 Test Item Value Reference Range Interpretation Comments CONCENTRATION CHARGED (BEAKER) (test Done code = 2657) SPIN/CONCENTRATION [id number] 11:37:58 Test Item Value Reference Range Interpretation Comments CONCENTRATION CHARGED (BEAKER) (test Done code = 2657) FLOW CYTOMETRY [id number] 09:02:27 Test Item Value Reference Range Interpretation Comments FLOW CYTOMETRY RESULT See Separate Report POINTER (BEAKER) (test code = 2758) FLOW CYTOMETRY AP CASE # [id number] (BEAKER) (test code = 2759) FLOW [id number] 08:38:29Flow Cytometry Report Case: [id number] Authorizing Provider: Malcolm Tamera Gil, Collected: 04/14/2021 11:50 AM Ordering Location: [facility] Received: 04/14/2021 03:20 PM Pathologist: Codie Maldonado MD Specimen: Other BRONCHOALVEOLAR LAVAGE, FLOW CYTOMETRY:- LIMITED STUDY DUE TO MARKEDLY REDUCED CELL VIABILITY (SEE COMMENT)- NO MONOTYPIC B CELL POPULATION IDENTIFIED- NO ABERRANT T CELL POPULATION IDENTIFIED The study is limited by markedly reduced cell viability (16% by 7AAD), the majority of events analyzed represent non-viable cells, non- hematolymphoid cells, and debris. B cells are essentially absent.[id number] lavageCD8, surface-kappa, CD56, surface-lambda, CD5, CD19, CD10, CD3, CD20, CD4, PY00Ywjdsmyq Viability: 16.1% Number of Events Acquired: [id number] The following populations are identified:Lymphocytes: Bright CD45+ lymphocytes comprise 5.3% of total cells. T cells show a CD4:CD8 ratio of 2.1 and normal expression of the penny T cell antigens CD3 and CD5. B cells are es sentially absent. Myeloid/monocytic populations: As identified by CD45 and light scatter characteristics, granulocytes comprise 3.4% of total cells, and monocytes comprise 11.2% of total cells. The remaining events analyzed represent nonviable cells, non-hematolymphoid cells, and debris.These tests were developed and their performance characteristics determined by [facility] Center[facility]have not been cleared or approved by the U.S. Food and Drug Administration. The FDA has determined that such clearance or approval is not necessary. It should not be regarded as investigational or for research. This laboratory is certified under the Clinical Laboratory Improvement Amendments of 1988 ("CLIA") as qualified to perform high-complexity clinical testing.[facility], Department of Pathology, [address] [place] [address], [facility]hnSt[facility], Department of Pathology, [address] [place] [address], ZNJX FLUID CELL COUNT WITH [id number] 17:02:34 Test Item Value Reference Range Interpretation Comments APPEARANCE FLUID Slightly Hazy Clear A (BEAKER) (test code = 510) COLOR FLUID (BEAKER) Colorless Colorless, Straw (test code = 511) RBC FLUID (BEAKER) 518 /cu mm See_Comment H [Automat ed (test code = 513) message] T he system which generated this result transmitted reference range : <=1. The refere nce range was not u sed to interpret th is result as normal/abnormal . ADJUSTED WBC FLUID 179 /cu mm See_Comment H [Automat ed (BEAKER) (test code message] The system = 1691) which generated this result transmitted reference range : <=5. The refere nce range was not u sed to interpret th is result as normal/abnormal . LINING CELLS 0 /cu mm See_Comment [Automated (BEAKER) (test code message] The system = 1590) which generated this result transmitted reference range : <=1. The refere nce range was not u sed to interpret th is result as normal/abnormal . NEUTROPHILS FLUID 7 % (BEAKER) (test code = 1656) LYMPHS FLUID 13 % (BEAKER) (test code = 488) MONO/MACROPHAGE 79 % FLUID (BEAKER) (test code = 489) EOSINOPHILS FLUID 1 % (BEAKER) (test code = 491) BASO FLUID (BEAKER) 0 % (test code = 492) CONTAINER BODY FLUID EDTA Tube (BEAKER) (test code = 2873) CYTOLOGY [id number] 16:01:11 Test Item Value Reference Range Interpretation Comments CYTOLOGY RESULT POINTER See Separate Report (BEAKER) (test code = 2629) CT, CHEST, WITH IV [id number] 13:03:00Unlisted Reason for Exam - Click Yes and Enter Reason Below->YesUnlisted Reason for Exam->cancer of right kidneyCH[facility] : 1960 Sex: FFINAL REPORT EXAMINATION: CT of the chest, abdomen and pelvis with contrast. TECHNIQUE: Spiral CT images of the chest, abdomen and pelvis were performed from the lung apices to the lessertrochanters after the intravenous administration of 100 cc of Isovue 300.. Coronal and sagittal reformatted images were obtained. Dose modulation, iterative reconstruction, and/or weight based adjustment of the mA/kV was utilized to reduce the radiation dose to as low as reasonably achievable. COMPARISON: CT scan of the chest, abdomen, and pelvis 10/29/2020, PET-CT CLINICAL HISTORY:Renal cell carcinoma, right kidney DISCUSSION: CHEST: LINES/TUBES: None. LUNGS AND AIRWAYS: Approximately 3.5 cm spiculated right upper lobe mass is similar in size compared to prior examination. This lesion wassampled percutaneously on 12/29/2020. 1.7 cm spiculated left lower lobe opacity has not significantlychanged. Moderate background centrilobular emphysematous changes with hyperinflation of the lungs. Scattered foci of nonspecific pleural opacity in the dependent lower lobes, right greater than left, again noted, which may reflect subsegmental atelectasis. No new pulmonary mass or consolidation. Airways are patent with diffuse mild bronchiectasis. PLEURA: No pleural effusion or pneumothorax. HEART AND MEDIASTINUM: Coarse calcification in the inferior aspect of the left thyroid lobe unchanged. Atherosclerotic calcification of the aortic arch, great vessel origins, and left anterior descending coronary artery. No pericardial effusion. Mild dilatation of the right and left pulmonary arteries is unchanged. LYMPH NODES: No axillary, hilar, or mediastinal lymphadenopathy. BONES AND SOFT TISSUES: Discussed below. ABDOMEN/PELVIS: HEPATOBILIARY:Subtle, ill-defined hyperdense focus in hepatic segment VII near the dome is unchanged and may represent a vascular shunt. No additional focal hepatic lesion. Nointrahepatic biliary dilatation. The gallbladder has been removed. SPLEEN: No splenomegaly. PANCREAS: No focal masses or ductal dilatation. ADRENALS: 2.5 x 1.9 cm hyperdense nodule in the medial limb of the right adrenal gland has marginally increased in size. No left adrenal nodule. KIDNEYS/URETERS: There are subcentimeter low attenuating lesions in both kidneys, too small to further characterize but likely represent small cysts. Stable postsurgical changes of the right kidney related to partial nephrectomy. 1.6 cm focus of parenchymal hypoattenuation along the surgical resection margin as seen oncoronal image 61, similar to prior. PELVIC ORGANS/BLADDER: Urinary bladder is unremarkable. Uterus is not identified and has presumably been removed. No adnexal mass. PERITONEUM/RETROPERITONEUM: No ascites or pneumoperitoneum. LYMPH NODES: No pelvic sidewall, retroperitoneal, or mesenteric lymphadenopathy. VESSELS: Atherosclerotic calcification of the abdominal aorta, branch vessels, and iliac arterial systems without aneurysmal dilatation. Portal vein, splenic vein, and central superior mesenteric vein are patent. GI TRACT: The large bowel shows no distention or wall thickening. There are a few diverticula scattered along the descending and sigmoid colon, without evidence of diverticulitis. The stomach is collapsed with prominent rugal folds. No small bowel dilatation to suggest obstruction. BONES AND SOFT TISSUES: Calcified injection granulomata in the gluteal subcutaneous fat. Right paramedian supraumbilical ventral hernia contains omental fat without inflammatory change. No additional focalsoft tissue abnormalities. Stable well-circumscribed sclerotic focus in the left ischial tuberosity and right symphysis pubis, likely bone islands. Stable nonspecific sclerotic focus in the right sacral ala. Stable mixed lytic and sclerotic metastatic lesion in the posterior right sixth rib with associated soft tissue component resulting in pleural convexity. No new osseous lesions. IMPRESSION: Marginal interval increase in size of hyperdense right adrenal nodule, worrisome for disease progression. Right apical spiculated pulmonary mass and mixed lytic and sclerotic right sixth rib metastasis are not significantly changed relative to PET-CT 12/04/2020 Signed: Anastasia De La Garza [facility] Verified Date/Time: 03/04/2021 13:03:20 CT, [id number] 13:03:00Unlisted Reason for Exam - Click Yes and Enter Reason Below->YesUnlisted Reason for Exam->cancer of rt kidneyWill this procedure require oral contrast?->Yes [facility] : 1960 Sex: FFINAL REPORT EXAMINATION: CT of the chest, abdomen and pelvis with contrast. TECHNIQUE: Spiral CT images of the chest, abdomen and pelvis were performed from the lung apices to the lessertrochanters after the intravenous administration of 100 cc of Isovue 300.. Coronal and sagittal reformatted images were obtained. Dose modulation, iterative reconstruction, and/or weight based adjustment of the mA/kV was utilized to reduce the radiation dose to as low as reasonably achievable. COMPARISON: CT scan of the chest, abdomen, and pelvis 10/29/2020, PET-CT CLINICAL HISTORY:Renal cell carcinoma, right kidney DISCUSSION: CHEST: LINES/TUBES: None. LUNGS AND AIRWAYS: Approximately 3.5 cm spiculated right upper lobe mass is similar in size compared to prior examination. This lesion wassampled percutaneously on 12/29/2020. 1.7 cm spiculated left lower lobe opacity has not significantlychanged. Moderate background centrilobular emphysematous changes with hyperinflation of the lungs. Scattered foci of nonspecific pleural opacity in the dependent lower lobes, right greater than left, again noted, which may reflect subsegmental atelectasis. No new pulmonary mass or consolidation. Airways are patent with diffuse mild bronchiectasis. PLEURA: No pleural effusion or pneumothorax. HEART AND MEDIASTINUM: Coarse calcification in the inferior aspect of the left thyroid lobe unchanged. Atherosclerotic calcification of the aortic arch, great vessel origins, and left anterior descending coronary artery. No pericardial effusion. Mild dilatation of the right and left pulmonary arteries is unchanged. LYMPH NODES: No axillary, hilar, or mediastinal lymphadenopathy. BONES AND SOFT TISSUES: Discussed below. ABDOMEN/PELVIS: HEPATOBILIARY:Subtle, ill-defined hyperdense focus in hepatic segment VII near the dome is unchanged and may represent a vascular shunt. No additional focal hepatic lesion. Nointrahepatic biliary dilatation. The gallbladder has been removed. SPLEEN: No splenomegaly. PANCREAS: No focal masses or ductal dilatation. ADRENALS: 2.5 x 1.9 cm hyperdense nodule in the medial limb of the right adrenal gland has marginally increased in size. No left adrenal nodule. KIDNEYS/URETERS: There are subcentimeter low attenuating lesions in both kidneys, too small to further characterize but likely represent small cysts. Stable postsurgical changes of the right kidney related to partial nephrectomy. 1.6 cm focus of parenchymal hypoattenuation along the surgical resection margin as seen oncoronal image 61, similar to prior. PELVIC ORGANS/BLADDER: Urinary bladder is unremarkable. Uterus is not identified and has presumably been removed. No adnexal mass. PERITONEUM/RETROPERITONEUM: No ascites or pneumoperitoneum. LYMPH NODES: No pelvic sidewall, retroperitoneal, or mesenteric lymphadenopathy. VESSELS: Atherosclerotic calcification of the abdominal aorta, branch vessels, and iliac arterial systems without aneurysmal dilatation. Portal vein, splenic vein, and central superior mesenteric vein are patent. GI TRACT: The large bowel shows no distention or wall thickening. There are a few diverticula scattered along the descending and sigmoid colon, without evidence of diverticulitis. The stomach is collapsed with prominent rugal folds. No small bowel dilatation to suggest obstruction. BONES AND SOFT TISSUES: Calcified injection granulomata in the gluteal subcutaneous fat. Right paramedian supraumbilical ventral hernia contains omental fat without inflammatory change. No additional focalsoft tissue abnormalities. Stable well-circumscribed sclerotic focus in the left ischial tuberosity and right symphysis pubis, likely bone islands. Stable nonspecific sclerotic focus in the right sacral ala. Stable mixed lytic and sclerotic metastatic lesion in the posterior right sixth rib with associated soft tissue component resulting in pleural convexity. No new osseous lesions. IMPRESSION: Marginal interval increase in size of hyperdense right adrenal nodule, worrisome for disease progression. Right apical spiculated pulmonary mass and mixed lytic and sclerotic right sixth rib metastasis are not significantly changed relative to PET-CT 12/04/2020 Signed: Anastasia De La Garza [facility] Verified Date/Time: 03/04/2021 13:03:20 RAD, SPINE, THORACIC, 2 [id number] 11:28:00Reason for Exam:->Thoracic spondylosis without myelopathy [facility] : 1960 Sex: FFINAL REPORT Radiographs of the thoracic spine HISTORY: PainCOMPARISON: None available. FINDINGS:Bones:No acute displaced fracture. Osseous alignment is within normal limits. Joints:Scattered degenerative change. No osseous erosion. Soft tissues:The soft tissues appear unremarkable. IMPRESSION: Scattered degenerative change. No osseous erosion. 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 Signing Pathologist Direct Phone Line: [phone] signed by Mirza Bush MD on 01/04/2021 at 4:00 PMThe specimen consists of scarred lung tissue, chronic inflammation and necrosis. AFB stain highlights scattered mycobacterial forms. GMS stain is negative. There is no evidence of carcinoma.Nodule of apex of right lungLung, rightReceived in formalin labeled the patient's name, accession number and "lung, right" are multiple gutierrez, threadlike soft tissue cores measuring up to 0.5 cmin greatest length by 0.1 cm in diameter, which are filtered and submitted in toto in A1.SARITHA López, HT (ASCP)The interpretation of this case included the use of immunohistochemistry or special stains.Control Slides Examined: In-house known positive controls were evaluated along with the test tissue. These control slides run alongside of the patients sample show appropriate staining. Internal positive and negative controls when available are evaluated Immunohistochemistry technical testing was performed at [facility], Pathology Laboratory where it was developed and its performance characteristics were determined. It has not been cleared or approved by the U.S. Food and Drug Administration. The FDA has determined that such clearance or approval is not necessary. The test is used for clinical purposes. It should not be regarded as investigational or for research. This laboratory is certified under the Clinical Laboratory Improvement Amendments of 1988 (CLIA-88) as qualified to perform high complexity clinical laboratory testing.RAD, CHEST, 1 VIEW, NON [id number] 16:15:00Reason for exam:->ChT removalShould this be performed at the bedside?->Yes [facility] 1960 Sex: FFINAL REPORT Chest, one view. HISTORY: ChT removal COMPARISON: Radiograph from earliertoday IMPRESSION: Interval removal of the right chest pigtail pleural catheter. Mild left medial basal atelectasis. There are prominent interstitial opacities of the right lung base which are nonspecific. No pleural effusion or pneumothorax. The cardiac silhouette is unchanged in size. No acute bone abnormality. Extensive subcutaneous emphysema Signed: Ambika Jackort Verified Date/Time: 01/02/2021 16:15:54 Reading Location: [address] Ortho Consult Reading Room RAD, CHEST, 1 VIEW, NON [id number] 13:49:00Reason for exam:->ChT clamp trialShould this be performed at the bedside?->Yes [facility] : 1960 Sex: FFINAL REPORT EXAM: Chest one view COMPARISON: January 02, 2021 CLINICAL HISTORY: Chest tube clamping trial FINDINGS: The right chest tube has been almost completely pulled out of the pleural space. There is no gross evidence of pneumothorax. However, extensive subcutaneous emphysema againnoted along the right chest wall and bilateral lower neck. There is no evidence of pulmonary consolidation or pleural effusion. The cardiac size is within normal limits. The regional osseous structuresare unremarkable. Signed: Annamarie Vazquez MDReport Verified Date/Time: 01/02/2021 13:49:07 [id number] 11:40:58 Test Item Value Reference Range Interpretation Comments MAGNESIUM (BEAKER) (test code = 1.8 mg/dL 1.6-2.6 627) Contact Lens Inspector ID - DBBASIC METABOLIC [id number] 11:40:57 Test Item Value Reference Range Interpretation Comments SODIUM (BEAKER) 127 meq/L 136-145 L (test code = 381) POTASSIUM (BEAKER) 4.3 meq/L 3.5-5.1 (test code = 379) CHLORIDE (BEAKER) 95 meq/L 98-107 L (test code = 382) CO2 (BEAKER) (test 24 meq/L 22-29 code = 355) BLOOD UREA NITROGEN 10 mg/dL 7-21 (BEAKER) (test code = 354) CREATININE (BEAKER) 0.65 mg/dL 0.57-1.25 (test code = 358) GLUCOSE RANDOM 98 mg/dL 70-105 (BEAKER) (test code = 652) CALCIUM (BEAKER) 9.1 mg/dL 8.4-10.2 (test code = 697) EGFR (BEAKER) (test 93 mL/min/1.73 INSUFF ICIENT CLINICAL code = 1092) sq m DATA TO CALCULA TE ESTIMATED GFR. Contact Lens Inspector ID - DBRAD, CHEST, 1 VIEW, NON [id number] 07:48:00Reason for exam:- >chest tube managementShould this be performed at the bedside?->Yes [facility] 1960 Sex: FFINAL REPORT RAD, CHEST, 1 VIEW, NON DEPT INDICATION: chest tube management COMPARISON: Prior day's exam FINDINGS: Portable frontal view of the chest. IMPRESSION: Support Lines: Right-sided pleural catheter. Lungs and pleura: Trace right apical pneumothorax is unchanged. Small left effusion. Remainder of the lungs are clear. Heart and mediastinum: Stable contours. Additional findings: None. Signed: Cassie Murray Verified Date/Time: 01/02/2021 07:48:22 Reading Location: [facility] C013 Neuro Reading Room RAD, CHEST, 1 VIEW, NON [id number] 14:44:00Reason for exam:->cht to water sealShould this be performed at the bedside?->Yes [facility] : 1960 Sex: FFINAL REPORT RAD, CHEST, 1 VIEW, NON DEPT INDICATION: cht to water seal COMPARISON: Prior day's exam FINDINGS: Portable frontal view of the chest. IMPRESSION: Support Lines: Right chest tube Lungs and pleura: Subcutaneous emphysema right chest wall is unchanged. Trace right apical and medial basilar pneumothorax. Lungs are predominantly clear. Heart and mediastinum: Stable contours. Additional findings: None. Signed: Cassie Murray Verified Date/Time: 01/01/2021 14:44:19 Reading Location: [facility] Radiology Reading Room RAD, CHEST, 1 VIEW, NON [id number] 08:17:00Reason for exam:- >Pneumothorax s/p chest tube, complicated by subcutaneous emphysemaShould this be performed at the bedside?->Yes [facility] 1960 Sex: FFINAL REPORT Chest AP portable History provided: Pneumothorax follow-up Heart size normal. Right chest tube remains in place with no significant pneumothorax. Subcutaneous emphysema persists along the right lateral chest dissecting into both supraclavicular areas. Lungs hyperinflated with no areas of consolidation or atelectasis. Signed: Elder Franc[facility]epsal[facility] Verified Date/Time: 01/01/2021 08:17:48 Reading Location: [facility] Radiology Reading Room BASIC METABOLIC [id number] 08:15:09 Test Item Value Reference Range Interpretation Comments SODIUM (BEAKER) 127 meq/L 136-145 L (test code = 381) POTASSIUM (BEAKER) 4.0 meq/L 3.5-5.1 Specimen slightly (test code = 379) hemolyzed CHLORIDE (BEAKER) 94 meq/L 98-107 L (test code = 382) CO2 (BEAKER) (test 24 meq/L 22-29 code = 355) BLOOD UREA NITROGEN 13 mg/dL 7-21 (BEAKER) (test code = 354) CREATININE (BEAKER) 0.66 mg/dL 0.57-1.25 Specimen slightly (test code = 358) hemolyzed GLUCOSE RANDOM 91 mg/dL 70-105 (BEAKER) (test code = 652) CALCIUM (BEAKER) 8.7 mg/dL 8.4-10.2 (test code = 697) EGFR (BEAKER) (test 91 mL/min/1.73 INSUFF ICIENT CLINICAL code = 1092) sq m DATA TO CALCULA TE ESTIMATED GFR. Contact Lens Inspector ID - IVETTE [id number] 08:15:08 Test Item Value Reference Range Interpretation Comments MAGNESIUM (PADDY) 1.6 mg/dL 1.6-2.6 Specimen slightly (test code = 627) hemolyzed Contact Lens Inspector ID - IVETTE LTSH/FREE T4 IF [id number] 07:44:40 Test Item Value Reference Range Interpretation Comments THYROID STIMULATING HORMONE 3.365 uIU/mL 0.350-4.940 (PADDY) (test code = 772) Contact Lens Inspector ID - IVETTE LRAD, CHEST, 1 VIEW, NON [id number] 07:56:00Reason for exam:->CT placement/monitor PNXShould this be performed at the bedside?->[facility] : 1960 Sex: FFINAL REPORT RAD, CHEST, 1 VIEW, NON DEPT INDICATION: CT placement/monitor PNX COMPARISON: Prior day's exam FINDINGS: Portable frontal view of the chest. IMPRESSION: Support Lines: Right chest tube Lungs and pleura: Subcutaneous emphysema right chest wall is unchanged. Trace right apical pneumothorax. Mild interstitial thickening within the right lower lung is unchanged. No significant pneumothorax. Heart and mediastinum: Stable contours. Additional findings: None. Signed: Cassie Murray Verified Date/Time: 12/31/2020 07:56:22 Reading Location: [facility] Radiology Reading Room -COV2/RT-PCR ([facility])2020-12-31 01:18:32 Test Item Value Reference Range Interpretation Comments SARS-COV2/RT-PCR (test code = Negative Negative [id number]) Negative result for this test determines that SARS-CoV-2 RNA was not present in the specimen above the Limit of Detection (LOD). However, Negative results do not preclude SARS-CoV-2 infection and should not be used as the sole basis for treatment or patient management decisions. Negative results must be combined with clinical observations, patient history, and epidemiological information. A false negative result may occur if a specimen is improperly collected, transported, or handled. A false negative result should be considered if patient's recent exposures or clinical presentation indicate that COVID-19 (SARS-CoV-2) is likely and diagnostic tests for other causes of illness are negative. Re-testing should be considered in cases of suspected false negatives.The limit of detection for this assay is 100 copies/mL.This SARS-CoV-2 test is a real-time RT_PCR test intended for the qualitative detection of nucleic acid from SARS-CoV-2 in a nasopharyngeal swab specimen collected from individuals suspected of COVID-19 by their healthcare provider.This test has not been Food and Drug Administration (FDA) cleared or approved. This is a modified version of an approved Emergency Use Authorization (EUA) and is in the process of review by the FDA. Once authorized by the FDA, the issued EUA will be effective until the declaration that circumstances exist justifying the authorization of the emergency use of in vitro diagnostic tests for detection and/or diagnosis of COVID-19 is terminated under Section 564(b)(2) of the Act or the EUA is revoked under Section 564(g) of the Act.Testing was performed using [employer] SARS-CoV-2 assay.Fact Sheet for Healthcare Providers:https://www.[employer].vang/abhijeet/RT SARS-CoV-2 HCP Fact Sheet 51- 012731.pdfFact Sheet for Healthcare Patients:https://www.[employer].Youth Noise/abhijeet/RT SARS-CoV-2 Patient Fact Sheet EN 51-633706E9.pdfRAD, CHEST, 1 VIEW, NON DEPT 2020-12-30 19:09:00Reason for exam:->Subcutaneous emphysema on exam after restarting CT to suction, sore throatShould this be performed at the bedside?->[facility] : 1960 Sex: FFINAL REPORT AP view of the chest dated 12/30/2020 COMPARISON: Same day CLINICAL INFORMATION: Subcutaneous emphysema on exam after restarting CT to suction, sore throat Comment: Previouslynoted right apical pneumothorax is not visualized. Right chest tube remains in place. There is persistent subcutaneous emphysema in the right chest wall and right neck. Signed: Maurice Jara Verified Date/Time: 12/30/2020 19:09:09 Reading Location: [address] Consult Reading Room , CHEST TUBE [id number] 16:16:00Reason for exam:->PTX [facility] : 1960 Sex: FFINALREPORT ANG, CHEST TUBE PLACEMENT History: PTX Modality: Fluoroscopy Sedation:None Resource Teacher: Yoav Gandhi MD. Engraver Letter: None. Approach: Anterior fluoroscopy guided right lateral second intercostal space Estimated blood loss: < 5 cc. Specimen: None. Fluoroscopy Time:3.2 min.Reference Air Kerma (Ka, r): 7.2 mGy. Technique: Informed written consent was obtained. Discu ssion of risks, benefits, and alternatives were made with the patient. The patient expressed understanding and agreed to proceed. A universal timeout was performed prior to starting the procedure. All elements maximal sterile barrier technique was utilized for this procedure, including utilization of sterile scrub solution for skin prep, a large sterile sheet to cover the areas of the patient that were not prepped, and hand hygiene, mask, head covering, and sterile gown for performing radiologist and scrub technologist. After application of local anesthesia with lidocaine a 19-gauge needle was introduced into the second intercostal space under fluoroscopic guidance until there was loss of resistance and return of air confirming location within the pleural space. A wire was placed through the needle. The needle was removed and the tract was dilated with six and 8 Ivorian dilators. A 8 Ivorian multipurpose drainage catheter was placed into the right lateral lung apex under fluoroscopic guidance. The wire was then removed, and the pigtail of the catheter was locked. The catheter was then secured onto the skin with 2-0 Prolene. A sterile dressing was applied. The pleural air was removed and there is resolution of the pneumothorax at the end of the procedure. The patient tolerated the procedure well, without immediate complications. The patient's vital signs remained stable throughout the procedure. Impression: Successful fluoroscopic guided right apical chest tube placement with evacuation of the moderate pneumothorax. Signed: Yoav Gandhi MDReport Verified Date/Time: 12/30/2020 16:16:01 Electr onically signed by: YOAV GANDHI MD on 12/30/2020 04:16 PMCT, BIOPSY, LUNG 2020-12-30 15:48:00Pt with known metastatic RCC but recent CT and PET/CT show a new RUL lung nodule wit discrepant features, concerning for primary lung cancer. Please bx RUL lung massReason for Exam:->Nodule of apex of right lung [facility] : 1960 Sex: FFINAL REPORT CT-guided lung biopsy Clinical History: Right apical FDG avid lesion Consent: The risks, benefits, and alternatives to the procedure were discussed with the patient. The patient expressed understanding and informed written consent was obtained. Time out: A pre-procedure timeout was performed in order to confirm the appropriate site of the procedure. SEDATION: Moderate sedat ion was administered one mg of Versed and 50 of fentanyl IV was used for moderate sedation monitoredunder my direction. Total intraservice time of sedation was 30 minutes. The patient's vital signs were monitored throughout the procedure and recorded in the patient's medical record by the nurse sedation. Local anesthesia: 5 cc of 2% lidocaine Technique: this exam was performed according to our departmental dose-optimization program which includes automated exposure control, adjustment of the mA and/or kV according to patient size and/or use of iterative reconstruction technique. The patient's CT is reviewed, and the lung abnormality is localized. With the patient prone, the area is scanned, without intravenous contrast administration. After the skin over the area is marked, the skin is prepped and draped in the usual sterile manner. After local anesthesia is achieved, a 19-gauge coaxial needleis advanced into the abnormality under CT guidance.Through the coaxial needle a 20-gauge Temno needle was utilized to obtain two passes. Blood patch was performed through the coaxial needle during removal. Postprocedure CT evaluation of the area reveals no evidence of pneumothorax or hemorrhage. Patient disposition: To recovery for postprocedure monitoring and radiographs. Impression: Successful and u ncomplicated CT-guided right apical core biopsy is performed. Signed: Yoav Gandhi MDRepsalem [facility] VerifiedDate/Time: 12/30/2020 15:48:49 RAD, CHEST, 1 VIEW, NON DEPT 2020-12-30 14:26:00Reason for exam:->s/p placing CT to water sealShould this be performed at the bedside?->Yes [facility]IS CAR[facility] : 1960 Sex: FFINAL REPORT RAD, CHEST, 1 VIEW, NON DEPT INDICATION: s/p placing CT to water seal COMPARISON: Earlier same day FINDINGS: Portable frontal view of the chest. IMPRESSION: Support Lines: Right pleural catheter Lungs and pleura: Increased right lateral pneumothorax. Small apical component is unchanged. Lungs are otherwise predominantly clear. Heart and mediastinum: Stable contours. Stable surgical changes. Additional findings: None. Signed: Cassie Murray MDReport Verified Date/Time: 12/30/2020 14:26:05 Reading Location: [facility] Radiology Reading Room RAD, CHEST, 1 VIEW, NON [id number] 11:26:00Reason for exam:->s/p R CT placementShould this be performed at the bedside?->Yes [facility] : 1960 Sex: FFINAL REPORT RAD, CHEST, 1 VIEW, NON DEPT INDICATION: s/p R CT placement COMPARISON: Prior day's exam FINDINGS: Portable frontal view of the chest. IMPRESSION: Support Lines: Right pleural catheter Lungs and pleura: Unchanged trace right apical pneumothorax. Lungs are otherwise predominantly clear. Heart and mediastinum: Stable contours. Stable surgical changes. Additional findings: None. Signed: Cassie Murray Verified Date/Time: 12/30/2020 11:26:21 Reading Location: [facility] Radiology Reading Room [id number] 08:15:13 Test Item Value Reference Range Interpretation Comments PHOSPHORUS (BEAKER) (test code = 3.4 mg/dL 2.3-4.7 604) Contact Lens Inspector ID - [id number] 08:15:12 Test Item Value Reference Range Interpretation Comments MAGNESIUM (BEAKER) (test code = 1.8 mg/dL 1.6-2.6 627) Contact Lens Inspector ID - ADMINBASIC METABOLIC [id number] 08:15:11 Test Item Value Reference Range Interpretation Comments SODIUM (BEAKER) 130 meq/L 136-145 L (test code = 381) POTASSIUM (BEAKER) 3.7 meq/L 3.5-5.1 (test code = 379) CHLORIDE (BEAKER) 99 meq/L 98-107 (test code = 382) CO2 (BEAKER) (test 23 meq/L code = 355) BLOOD UREA NITROGEN 10 mg/dL 7-21 (BEAKER) (test code = 354) CREATININE (BEAKER) 0.62 mg/dL 0.57-1.25 (test code = 358) GLUCOSE RANDOM 86 mg/dL 70-105 (BEAKER) (test code = 652) CALCIUM (BEAKER) 8.6 mg/dL 8.4-10.2 (test code = 697) EGFR (BEAKER) (test 98 mL/min/1.73 INSUFF ICIENT CLINICAL code = 1092) sq m DATA TO CALCULA TE ESTIMATED GFR. Contact Lens Inspector ID - ADMINCBC W/PLT COUNT & AUTO [id number] 06:12:18 Test Item Value Reference Range Interpretation Comments WHITE BLOOD CELL COUNT (BEAKER) 6.3 K/ L 3.5-10.5 (test code = 775) RED BLOOD CELL COUNT (BEAKER) 4.13 M/ L 3.93-5.22 (test code = 761) HEMOGLOBIN (BEAKER) (test code = 14.0 GM/DL 11.2-15.7 410) HEMATOCRIT (BEAKER) (test code = 40.5 % 34.1-44.9 411) MEAN CORPUSCULAR VOLUME (BEAKER) 98.1 fL 79.4-94.8 H (test code = 753) MEAN CORPUSCULAR HEMOGLOBIN 33.9 pg 25.6-32.2 H (BEAKER) (test code = 751) MEAN CORPUSCULAR HEMOGLOBIN CONC 34.6 GM/DL 32.2-35.5 (BEAKER) (test code = 752) RED CELL DISTRIBUTION WIDTH 12.8 % 11.7-14.4 (BEAKER) (test code = 412) PLATELET COUNT (BEAKER) (test 320 K/CU MM 150-450 code = 756) MEAN PLATELET VOLUME (BEAKER) 8.9 fL 9.4-12.3 L (test code = 754) NUCLEATED RED BLOOD CELLS 0 /100 WBC 0-0 (BEAKER) (test code = 413) NEUTROPHILS RELATIVE PERCENT 58 % (BEAKER) (test code = 429) LYMPHOCYTES RELATIVE PERCENT 33 % (BEAKER) (test code = 430) MONOCYTES RELATIVE PERCENT 7 % (BEAKER) (test code = 431) EOSINOPHILS RELATIVE PERCENT 2 % (BEAKER) (test code = 432) BASOPHILS RELATIVE PERCENT 1 % (BEAKER) (test code = 437) NEUTROPHILS ABSOLUTE COUNT 3.65 K/ L 1.56-6.13 (BEAKER) (test code = 670) LYMPHOCYTES ABSOLUTE COUNT 2.08 K/ L 1.18-3.74 (BEAKER) (test code = 414) MONOCYTES ABSOLUTE COUNT (BEAKER) 0.42 K/ L 0.24-0.36 H (test code = 415) EOSINOPHILS ABSOLUTE COUNT 0.11 K/ L 0.04-0.36 (BEAKER) (test code = 416) BASOPHILS ABSOLUTE COUNT (BEAKER) 0.03 K/ L 0.01-0.08 (test code = 417) IMMATURE GRANULOCYTES-RELATIVE 0 % 0-1 PERCENT (BEAKER) (test code = 2801) RAD, CHEST, 1 VIEW, NON [id number] 14:10:00Reason for exam:->3 hours s/p r apical lung biopsyShould this be performed at the bedside?->Yes [facility] 1960 Sex: FFINALREPORT RAD, CHEST, 1 VIEW, NON DEPT INDICATION: 3 hours s/p r apical lung biopsy COMPARISON: Prior day's exam FINDINGS: Portable frontal view of the chest. IMPRESSION: Support Lines: Interval insertion of right chest tube Lungs and pleura: Significant decrease right pneumothorax. Small right basilar pneumothorax remains. Interstitial thickening throughout the lungs bilaterally. Heart and mediastinum: Normal contours. Additional findings: None. Signed: Cassie Murray MDReport Verified Date/Time: 12/29/2020 14:10:53 Reading Location: [facility] Radiology Reading Room RAD, CHEST, 1 VIEW, NON DEPT 2020-12-29 12:04:00Reason for exam:->s/p r apical biopsyShould this be performed at the bedside?->Yes [facility] 1960 Sex: FFINAL REPORT TECHNIQUE: Frontal view of the chest. INDICATION: s/p r apical biopsy COMPARISON:CT lung biopsy dated the same day. X-ray 01/09/2020 DISCUSSION:Limited evaluation due to portable technique. Lines and hardware: NoneHeart and mediastinum: Stable.Lungs and pleura: Moderate rightpneumothorax is noted. No left pneumothorax. Stable right apical nodule and postbiopsy changes. No pleural effusion.Soft tissues and bones: No acute abnormality. IMPRESSION:Moderate right pneumothorax.Patient is being taken to interventional radiology for chest tube placement. Signed: Yoav Gandhi MDReport Verified Date/Time: 12/29/2020 12:04:55 Reading Location: [address] Body Reading Room HROMBIN TIME/[id number] 09:33:50 Test Item Value Reference Range Interpretation Comments PROTIME (BEAKER) 13.0 seconds 11.9-14.2 (test code = 759) INR (BEAKER) (test 1.00 See_Comment [Automat ed message] code = 370) The system Pro[employer] generated this result transmitted ref erence range: <=5.90. The reference range was not used to int erpret this result as normal/abnormal . RECOMMENDED COUMADIN/WARFARIN INR THERAPY RANGESSTANDARD DOSE: 2.0 - 3.0 Includes: PROPHYLAXIS for venous thrombosis, systemic embolization; TREATMENT for venous thrombosis and/or pulmonary embolus.HIGH RISK: Target INR is 2.5-3.5 for patients with mechanical heart valves.CBC W/PLT COUNT & AUTO [id number] 09:14:24 Test Item Value Reference Range Interpretation Comments WHITE BLOOD CELL COUNT (BEAKER) 9.0 K/ L 3.5-10.5 (test code = 775) RED BLOOD CELL COUNT (BEAKER) 4.31 M/ L 3.93-5.22 (test code = 761) HEMOGLOBIN (BEAKER) (test code = 15.2 GM/DL 11.2-15.7 410) HEMATOCRIT (BEAKER) (test code = 42.3 % 34.1-44.9 411) MEAN CORPUSCULAR VOLUME (BEAKER) 98.1 fL 79.4-94.8 H (test code = 753) MEAN CORPUSCULAR HEMOGLOBIN 35.3 pg 25.6-32.2 H (BEAKER) (test code = 751) MEAN CORPUSCULAR HEMOGLOBIN CONC 35.9 GM/DL 32.2-35.5 H (BEAKER) (test code = 752) RED CELL DISTRIBUTION WIDTH 12.9 % 11.7-14.4 (BEAKER) (test code = 412) PLATELET COUNT (BEAKER) (test 354 K/CU MM 150-450 code = 756) MEAN PLATELET VOLUME (BEAKER) 8.7 fL 9.4-12.3 L (test code = 754) NUCLEATED RED BLOOD CELLS 0 /100 WBC 0-0 (BEAKER) (test code = 413) NEUTROPHILS RELATIVE PERCENT 70 % (BEAKER) (test code = 429) LYMPHOCYTES RELATIVE PERCENT 21 % (BEAKER) (test code = 430) MONOCYTES RELATIVE PERCENT 6 % (BEAKER) (test code = 431) EOSINOPHILS RELATIVE PERCENT 1 % (BEAKER) (test code = 432) BASOPHILS RELATIVE PERCENT 1 % (BEAKER) (test code = 437) NEUTROPHILS ABSOLUTE COUNT 6.31 K/ L 1.56-6.13 H (BEAKER) (test code = 670) LYMPHOCYTES ABSOLUTE COUNT 1.89 K/ L 1.18-3.74 (BEAKER) (test code = 414) MONOCYTES ABSOLUTE COUNT (BEAKER) 0.57 K/ L 0.24-0.36 H (test code = 415) EOSINOPHILS ABSOLUTE COUNT 0.13 K/ L 0.04-0.36 (BEAKER) (test code = 416) BASOPHILS ABSOLUTE COUNT (BEAKER) 0.06 K/ L 0.01-0.08 (test code = 417) IMMATURE GRANULOCYTES-RELATIVE 0 % 0-1 PERCENT (BEAKER) (test code = 2801) PROTHROMBIN TIME/[id number] 09:57:39 Test Item Value Reference Range Interpretation Comments PROTIME (BEAKER) 12.5 seconds 11.9-14.2 (test code = 759) INR (BEAKER) (test 0.95 See_Comment [Automat ed message] code = 370) The system [employer] generated this result transmitted ref erence range: <=5.90. The reference range was not used to int erpret this result as normal/abnormal . RECOMMENDED COUMADIN/WARFARIN INR THERAPY RANGESSTANDARD DOSE: 2.0 - 3.0 Includes: PROPHYLAXIS for venous thrombosis, systemic embolization; TREATMENT for venous thrombosis and/or pulmonary embolus.HIGH RISK: Target INR is 2.5-3.5 for patients with mechanical heart valves.CBC W/PLT COUNT & AUTO [id number] 09:46:32 Test Item Value Reference Range Interpretation Comments WHITE BLOOD CELL COUNT (BEAKER) 9.6 K/ L 3.5-10.5 (test code = 775) RED BLOOD CELL COUNT (BEAKER) 4.30 M/ L 3.93-5.22 (test code = 761) HEMOGLOBIN (BEAKER) (test code = 14.8 GM/DL 11.2-15.7 410) HEMATOCRIT (BEAKER) (test code = 42.3 % 34.1-44.9 411) MEAN CORPUSCULAR VOLUME (BEAKER) 98.4 fL 79.4-94.8 H (test code = 753) MEAN CORPUSCULAR HEMOGLOBIN 34.4 pg 25.6-32.2 H (BEAKER) (test code = 751) MEAN CORPUSCULAR HEMOGLOBIN CONC 35.0 GM/DL 32.2-35.5 (BEAKER) (test code = 752) RED CELL DISTRIBUTION WIDTH 13.2 % 11.7-14.4 (BEAKER) (test code = 412) PLATELET COUNT (BEAKER) (test 340 K/CU MM 150-450 code = 756) MEAN PLATELET VOLUME (BEAKER) 8.8 fL 9.4-12.3 L (test code = 754) NUCLEATED RED BLOOD CELLS 0 /100 WBC 0-0 (BEAKER) (test code = 413) NEUTROPHILS RELATIVE PERCENT 71 % (BEAKER) (test code = 429) LYMPHOCYTES RELATIVE PERCENT 21 % (BEAKER) (test code = 430) MONOCYTES RELATIVE PERCENT 5 % (BEAKER) (test code = 431) EOSINOPHILS RELATIVE PERCENT 2 % (BEAKER) (test code = 432) BASOPHILS RELATIVE PERCENT 1 % (BEAKER) (test code = 437) NEUTROPHILS ABSOLUTE COUNT 6.83 K/ L 1.56-6.13 H (BEAKER) (test code = 670) LYMPHOCYTES ABSOLUTE COUNT 2.04 K/ L 1.18-3.74 (BEAKER) (test code = 414) MONOCYTES ABSOLUTE COUNT (BEAKER) 0.51 K/ L 0.24-0.36 H (test code = 415) EOSINOPHILS ABSOLUTE COUNT 0.18 K/ L 0.04-0.36 (BEAKER) (test code = 416) BASOPHILS ABSOLUTE COUNT (BEAKER) 0.05 K/ L 0.01-0.08 (test code = 417) IMMATURE GRANULOCYTES-RELATIVE 0 % 0-1 PERCENT (BEAKER) (test code = 2801) PET/CT, SKULL BASE TO MID-THIGH [id number] 10:48:00Unlisted Reason for Exam - Click Yes and Enter Reason Below->YesUnlisted Reason for Exam->nODULE OF APEX TO RT LUNGAD[facility] : 1960 Sex: FFINAL REPORT EXAMINATION: FDG-PET/CT, 12/04/2020 11:01 AM CLINICAL HISTORY: Renal cell carcinoma, status post surgical resection. Enlarging right upper lobe pulmonary nodule.INDICATION: FDG-PET/CT is obtained for subsequent treatment evaluation.COMPARISON: CT studies 10/29/2020 and FDG-PET/CT 03/13/2020 TECHNIQUE:Radiopharmaceutical: F-18 FluorodeoxyglucoseAdministered activity: 8.1] mCiRoute of administration: Intravenously via the right forearmLocalization time: 96 minutesScan extent: Skull base to the proximal thighsAdditional imaging: NoneSerum blood glucose: 96 mg/dlCPT Code: 37123 FINDINGS:Head and Neck: No progressive theresa hypermetabolism in the neck. Tracer uptake in the visualized head and neck mucosa is normal and symmetric. Chest: A spiculated pulmonary mass at the right lung apex is stable in size and appearance compared to the recent CT examination. This mass is intensely hypermetabolic on PET, with an SUV of 6.0. The subpleural left lower lobe nodule seen on the prior FDG- PET/CT examination has become centrally cavitary, now showing only low-grade FDG activity at its periphery (SUV = 0.9). No FDG-avid pulmonary nodules elsewhere in the chest. Low-grade, symmetric theresa activity in the mediastinum and pulmonary drew is consistent with reactive change. No pleural or pericardial effusions. Abdomen and Pelvis: The nodule in the right adrenal gland seen on the prior PET/CT examination has enlarged in the interim as documented on interval CT scans. This nodule continuesto be metabolically active on PET scanning, albeit at a modest intensity (SUV = 2.6). The left adrenal gland is normal in appearance. Stable postsurgical changes of partial right nephrectomy, with no pr ogressive cortical hypermetabolism. The left renal contour is normal. Tracer uptake in the hepatic parenchyma is mildly heterogeneous, but no dominant foci of hypermetabolism are seen in the liver. There is no progressive theresa hypermetabolism in retroperitoneal or pelvic chains. Musculoskeletal: A per meative and expansile lesion in the right posterior sixth rib has increased in extent compared to the prior PET/CT examination, showing persistent FDG activity (SUV = 3.2). There is some thickening along the adjacent extrapleural compartment, consistent with extraskeletal extension of malignancy. No other focal sites of osseous hypermetabolism are seen. IMPRESSION: Hypermetabolic right apical pulmonary mass, with interval enlargement of right adrenal and right sixth rib lesions, consistent with progression of malignancy. Signed: Monet Mitchell MDReport Verified Date/Time: 12/07/2020 10:48:36 POCT-GLUCOSE METER 2020-12-04 11:40:00 Test Item Value Reference Range Interpretation Comments POC-GLUCOSE METER 96 mg/dL 70-110 : TESTED A T [facility] 6720 (PADDY) (test code = [place], 1538) [address]: Contact Lens Inspector/Techni bismark ID = [id number] for Fowl er, Cornelius CT, CHEST, WITH IV [id number] 11:12:00Unlisted Reason for Exam - Click Yes and Enter Reason Below->YesUnlisted Reason for Exam->C64.[address] [facility] : 1960 Sex: FFINAL REPORT CT Chest, abdomen, and pelvis with contrast History:Renal cell carcinoma Comparison:08/03/2020 Technique: serial axial imaging was performed following up to 100cc of non ionic iodinated intravenous contrast as per departmental protocol. Multiplanar images are reconstructed andreviewed when indicated. This CT examination is performed using one or more of the following dose reduction techniques: Automated exposure control, adjustment of the mA and /or kV according to patient size, and/or use of iterative reconstruction technique. Findings:No mediastinal or hilar lymphadenopathy. Normal size heart. No pericardial effusion. No thoracic aortic aneurysm or dissection. No central pulmonary arterial filling defect. Patent central airways. No pleural effusion or pneumothorax. Andill-defined spiculated lesion involving the right upper lobe measures 4.2 x 2.1 cm in size. This is significantly increased in size from the prior examination. Significant underlying centrilobular pulmonary emphysema. A 17 mm spiculated left lower lobe subpleural opacity appears unchanged. Unremarkable appearance of pancreas and spleen. Unremarkable appearance of the liver. The gallbladder is not visualized. Mild interval increase in size of right adrenal nodule, now measuring 2.2 cm in size. Postsurgical changes are visualized within the anterior right kidney. Otherwise, unremarkable appearance ofthe kidneys, ureters, and urinary bladder. The uterus is absent. No small or large bowel obstruction. No apparent bowel wall thickening. No findings to indicate acute appendicitis. No free fluid or lymphadenopathy. No abdominal aortic aneurysm. A tiny sclerotic lesion involving the right anterior fourth rib measures approximately 6 mm in size and demonstrates no significant change. Stable mildly expansile lesion within the right posterior sixth rib. Impression: 1. 4.2 x 2.1 cm ill-defined spiculatedlesion involving the right upper lobe has significantly increased in size from prior examination. This may relate to progressive neoplasm or progressive scarring. This lesion would be amenable to further characterization with PET/CT. Tissue diagnosis should be considered.2. Unchanged 17 mm because theleft lower lobe subpleural opacity.3. 2.2 cm enhancing right adrenal nodule, mildly increased in size.4. Stable mildly expansile lesion of the right posterior sixth rib. Subcentimeter sclerotic lesion within the right anterior fourth rib demonstrates no significant change. Signed: Martin Reyna MDReport Verified Date/Time: 10/30/2020 11:12:23 Reading Location: [address] Consult Reading Room [facility] [place], [id number] 11:12:00Unlisted Reason for Exam - Click Yes and Enter Reason Below->YesUnlisted Reason for Exam->C64.1Will this procedure require oral contrast?->Yes [facility] : 1960 Sex: FFINAL REPORT CT Chest, abdomen, and pelvis with contrast History:Renal cell carcinoma Comparison:08/03/2020 Technique: serial axial imaging was performed following up to 100cc of non ionic iodinated intravenous contrast as per departmental protocol. Multiplanar images are reconstructed andreviewed when indicated. This CT examination is performed using one or more of the following dose reduction techniques: Automated exposure control, adjustment of the mA and /or kV according to patient size, and/or use of iterative reconstruction technique. Findings:No mediastinal or hilar lymphadenopathy. Normal size heart. No pericardial effusion. No thoracic aortic aneurysm or dissection. No central pulmonary arterial filling defect. Patent central airways. No pleural effusion or pneumothorax. And ill-defined spiculated lesion involving the right upper lobe measures 4.2 x 2.1 cm in size. This issignificantly increased in size from the prior examination. Significant underlying centrilobular pulmonary emphysema. A 17 mm spiculated left lower lobe subpleural opacity appears unchanged. Unremarkable appearance of pancreas and spleen. Unremarkable appearance of the liver. The gallbladder is not visualized. Mild interval increase in size of right adrenal nodule, now measuring 2.2 cm in size. Postsurgical changes are visualized within the anterior right kidney. Otherwise, unremarkable appearance of the kidneys, ureters, and urinary bladder. The uterus is absent. No small or large bowel obstruction. No apparent bowel wall thickening. No findings to indicate acute appendicitis. No free fluid or lymphadenopathy. No abdominal aortic aneurysm. A tiny sclerotic lesion involving the right anterior fourth rib measures approximately 6 mm in size and demonstrates no significant change. Stable mildly expansile lesion within the right posterior sixth rib. Impression: 1. 4.2 x 2.1 cm ill-defined spiculated lesion involving the right upper lobe has significantly increased in size from prior examination. This may relate to progressive neoplasm or progressive scarring. This lesion would be amenable to further characterization with PET/CT. Tissue diagnosis should be considered.2. Unchanged 17 mm because the left lower lobe subpleural opacity.3. 2.2 cm enhancing right adrenal nodule, mildly increased in size.4. Stable mildly expansile lesion of the right posterior sixth rib. Subcentimeter sclerotic lesionwithin the right anterior fourth rib demonstrates no significant change. Signed: Martin Reyna MDReport Verified Date/Time: 10/30/2020 11:12:23 Reading Location: [facility] C013X Ortho Consult Reading Room CT, [id number] 18:09:00[facility] s/p right nephrectomy, known bone and lung metsOn treatment, please compare to priorUnlisted Reason for Exam - Click Yes and Enter Reason Below->YesUnlisted Reason for Exam->Renal cell carcinoma of right kidney (HCCode) (C64.1); Secondary malignant neoplasm of boneWill this procedure requireoral contrast?->No[facility] : 1960 Sex: FFINAL REPORT CT, ABDOMEN \\T\\ PELVIS, WITH IV CONTRAST, CT, CHEST, WITH IV CONTRAST INDICATION: Unlisted Reason for ExamRenal cell carcinoma of right kidney (HCCode) (C64.1); Secondary malignant neoplasm of bone COMPARISON: PET/CT 03/13/2020 TECHNIQUE: Computed tomography was performed through the chest, abdomen and pelvis with IV contrast. Coronal and sagittal reformats were provided.Oral Contrast: No This exam was performed according to our departmental dose optimization program whichincludes automated exposure control, adjustment of the mA and/or kV according to patient size and/oruse of iterative reconstructive technique. FINDINGS: CHEST:Lungs: An approximately 17 x 10 spiculated nodule in the subpleural left lower lobe, no convincing change. New and suspicious approximately 21x 26 mm airspace opacification in the right lung apex. Severe emphysema. Nonspecific subpleural nodularity in the right lung base.Lymph nodes and Mediastinum: Unremarkable.Pleura: Unremarkable.Cardiovas cular: Mild atherosclerotic calcifications of the coronary arteries.Other: A coarse calcification inthe left lobe the thyroid gland, no change. ABDOMEN/PELVIS: Liver: Unremarkable.Gallbladder and bileducts: Completely decompressed or surgically absent gallbladder. No biliary ductal dilation.Spleen, pancreas, adrenals: A right adrenal nodule, 18 x 15 mm, hyperenhancing, no convincing change from 03/13/2020.Kidneys and ureters: Postsurgical changes in the right kidney from partial nephrectomy. Rightrenal hypo-attenuating foci too small to characterize, likely cysts. No hydronephrosis bilaterally.Bowel: Nondilated bowel with no wall thickening. Moderate amount of stool throughout the colon.Bladderand reproductive organs: Surgically absent uterus. No adnexal masses.Lymph nodes: Unremarkable.Peritoneum: Unremarkable.Vessels: Mild atherosclerotic calcifications.Abdominal wall: Small fat containingsupraumbilical ventral hernia which contains trace free fluid. MUSCULOSKELETAL:No convincing change in the expansile mixed lytic sclerotic lesion of the right posterior sixth rib, with suggestion of minimal extraosseous extension. New small mildly sclerotic right anterior fourth rib lesion IMPRESSION:Compared with PET/CT 03/13/2020: 1.New and suspicious approximately 21 x 26 mm airspace opacification in the right lung apex could be infectious/inflammatory or primary neoplastic. Extends to the pleura. Consider 3 month follow-up CT chest versus PET CT correlation. 2.Unchanged approximately 17 x 10 mm spiculated nodule in the subpleural left lower lobe. 3.Unchanged 18 mm right adrenal nodule 4.Unchanged expansile right posterior sixth rib lesion. New mildly sclerotic right anterior fourth rib lesion 5.Additional chronic and incidental findings as above. Signed: Monet Niño Verified Date/Time: 08/03/2020 18:09:02 Reading Location: [facility] C013X [facility] Consult Reading Room CT, CHEST, WITH IV [id number] 18:09:00[facility] s/p right nephrectomy, known bone and lung metsOn treatment, please compare to priorUnlisted Reason for Exam - Click Yes and Enter Reason Below->YesUnlisted Reason for Exam->Renal cell carcinoma of right kidney (HCCode) (C64.1); Secondary malignant neoplasm of bone [facility] 1960 Sex: FFINAL REPORT CT, ABDOMEN \\T\\ PELVIS, WITH IV CONTRAST, CT, CHEST, WITH IV CONTRAST INDICATION: Unlisted Reason for ExamRenal cell carcinoma of right kidney (HCCode) (C64.1); Secondary malignant neoplasm of bone COMPARISON: PET/CT 03/13/2020 TECHNIQUE: Computed tomography was performed through the chest, abdomen and pelvis with IV contrast. Coronal and sagittal reformats were provided.Oral Contrast: No This exam was performed according to our departmental dose optimization program whichincludes automated exposure control, adjustment of the mA and/or kV according to patient size and/oruse of iterative reconstructive technique. FINDINGS: CHEST:Lungs: An approximately 17 x 10 spiculated nodule in the subpleural left lower lobe, no convincing change. New and suspicious approximately 21x 26 mm airspace opacification in the right lung apex. Severe emphysema. Nonspecific subpleural nodularity in the right lung base.Lymph nodes and Mediastinum: Unremarkable.Pleura: Unremarkable.Cardiovas cular: Mild atherosclerotic calcifications of the coronary arteries.Other: A coarse calcification inthe left lobe the thyroid gland, no change. ABDOMEN/PELVIS: Liver: Unremarkable.Gallbladder and bileducts: Completely decompressed or surgically absent gallbladder. No biliary ductal dilation.Spleen, pancreas, adrenals: A right adrenal nodule, 18 x 15 mm, hyperenhancing, no convincing change from 03/13/2020.Kidneys and ureters: Postsurgical changes in the right kidney from partial nephrectomy. Rightrenal hypo-attenuating foci too small to characterize, likely cysts. No hydronephrosis bilaterally.Bowel: Nondilated bowel with no wall thickening. Moderate amount of stool throughout the colon.Bladderand reproductive organs: Surgically absent uterus. No adnexal masses.Lymph nodes: Unremarkable.Peritoneum: Unremarkable.Vessels: Mild atherosclerotic calcifications.Abdominal wall: Small fat containingsupraumbilical ventral hernia which contains trace free fluid. MUSCULOSKELETAL:No convincing change in the expansile mixed lytic sclerotic lesion of the right posterior sixth rib, with suggestion of minimal extraosseous extension. New small mildly sclerotic right anterior fourth rib lesion IMPRESSION:Compared with PET/CT 03/13/2020: 1.New and suspicious approximately 21 x 26 mm airspace opacification in the right lung apex could be infectious/inflammatory or primary neoplastic. Extends to the pleura. Consider 3 month follow-up CT chest versus PET CT correlation. 2.Unchanged approximately 17 x 10 mm spiculated nodule in the subpleural left lower lobe. 3.Unchanged 18 mm right adrenal nodule 4.Unchanged expansile right posterior sixth rib lesion. New mildly sclerotic right anterior fourth rib lesion 5.Additional chronic and incidental findings as above. Signed: Monet Niño Verified Date/Time: 08/03/2020 18:09:02 Reading Location: [address] Consult Reading Room -[id number] 09:32:00 Test Item Value Reference Range Interpretation Comments POC-CREATININE 0.7 mg/dL 0.6-1.3 : TESTED AT [facility] ([facility]) (test [address] [facility] [address] [facility] code = 1859) A, [facility] 7 3995: Contact Lens Inspector/Techni bismark ID = [id number] for Sindy Rajan POC-EGFR 85 mL/min/1.73M2 ([employer]) (test code = 1860) SARS-CoV-2 (COVID-19) RNA [Presence] in Respiratory specimen by LAURA with probe [id number] 03:41:30 Test Item Value Reference Range Interpretation Comments SARS-CoV-2 (COVID-19) RNA Not detected Not-Detected [Presence] in Respiratory specimen by LAURA with probe detection (test code = 25733-7) PET/CT, SKULL BASE TO MID-THIGH [id number] 08:50:00Unlisted Reason for Exam - Click Yes and Enter Reason Below->YesUnlisted Reason for Exam->E27.8 R91.1 [facility] 1960 Sex: FFINAL REPORT EXAMINATION: FDG-PET/CT, 03/13/2020 12:19 PM CLINICAL HISTORY: Renal cellcarcinoma, status post surgical resection. New left lower lobe pulmonary nodule and right adrenal nodule.INDICATION: FDG-PET/CT is obtained for subsequent treatment evaluation.COMPARISON: Prior imagingstudies, including abdominal MRI and chest CT of 02/25/2020 TECHNIQUE:Radiopharmaceutical: F-18 FluorodeoxyglucoseAdministered activity: 8.5] mCiRoute of administration: Intravenously via the right antecubital veinLocalization time: 60 minutesScan extent: Skull base to the proximal thighsAdditional imaging: NoneSerum blood glucose: 92 mg/dlCPT Code: 26489 FINDINGS:Head and Neck: There is no theresa hypermetabolism along the cervical chains. Tracer uptake in the head and neck mucosa is normal and symmetric. Chest: Allowing for scan-2-scan variability, the spiculated subpleural pulmonary nodule in the left lower lobe posterolaterally (image 124) is stable in appearance in the interim. This nodule is focally hypermetabolic on PET scanning, with an SUV of 3.3. No other FDG-avid pulmonary nodules are michel ntified. There is no theresa hypermetabolism in mediastinal, hilar, or axillary chains. Stable findings of centrilobular emphysema. Abdomen and Pelvis: A nodule in the right adrenal gland remains stable compared to the prior study. This nodule shows faint but appreciable FDG activity, with an SUV of 2.7. The left adrenal gland is normal in appearance on both PET and CT. There are postsurgical changes of partial right nephrectomy. Physiologic renal cortical activity is seen bilaterally. Tracer uptake in the hepatic parenchyma is homogeneous. There is no theresa hypermetabolism in retroperitoneal or pelvic chains. Large and small bowel loops are normal in caliber, with physiologic tracer activity. Muscul oskeletal: There is a subtly expansile lucent lesion in the right sixth rib posteriorly near the costovertebral junction (CT image 131), with adjacent periosseous soft tissue thickening extending into the extrapleural space. There is associated focal hypermetabolism in this region on PET scanning, with an SUV of 3.0. A subtle focus of osseous activity is present in the left fourth rib anteriorly (image 119) with associated focal sclerosis of the bone on CT. This is most likely the result of prior trauma. IMPRESSION: There are several findings in this patient, including an FDG-avid spiculated left lower lobe pulmonary nodule, a right adrenal nodule with faint FDG uptake, and a hypermetabolic expansile lytic lesion in the right sixth rib posteriorly. These findings are suspicious for malignancy, with possibilities including metastatic renal cell carcinoma or primary/metastatic lung carcinoma. Signed: Monet Mitchell MDReport Verified Date/Time: 03/16/2020 08:50:31 POCT-GLUCOSE [id number] 13:24:00 Test Item Value Reference Range Interpretation Comments POC-GLUCOSE METER 92 mg/dL 70-110 : TESTED A T [facility] 6720 (BEAKER) (test code = [place], 1538) [address]: Contact Lens Inspector/Techni bismark ID = [id number] for Cornelius Becker POCT URINALYSIS [id number] 00:00:00 Test Item Value Reference Range Interpretation Comments COLOR UA (test code = 5778-6) Colorless YELLOW/STRAW CLARITY UA (test code = Clear CLEAR 37836-9) GLUCOSE UA (test code = Negative NEGATIVE 5792-7) BILIRUBIN UA (test code = Negative NEGATIVE 5770-3) KETONES UA (test code = Negative NEGATIVE 90086-0) SPECIFIC GRAVITY UA (test 1.005-1.035 code = 5811-5) BLOOD UA (test code = 5794-3) Hemolyzed Trace NEGATIVE PH UA (test code = 5803-2) 5-9 PROTEIN UA (test code = Negative NEGATIVE 5804-0) UROBILINOGEN UA (test code = 0.02 E.U/DL NORMAL MG/DL 5818-0) LEUKOCYTE ESTERASE UA (test Negative NEGATIVE code = 5799-2) NITRITE UA (test code = Negative NEGATIVE 5802-4) REDUCING SUBSTANCES URINE (test code = 18056-3) [facility] [id number] 12:57:00Surgical Pathology Report Case: [id number] Authorizing Provider: Skyler Lin MD Collected: 09/16/2016 0948 Ordering Location: [facility] Received: 09/16/2016 1223 SERVICES Pathologist: Machelle Mittal MD Specimens: A) - Tumor, Fat Overlying Tumor B) - Renal, Right, Right Renal Mass This case was reviewed by me at the request of Dr. Lin. I went over the case with him at the microscope. There was no renal capsule invasion but only a small focus of invasion into the renal sinus fat. Although ink is present on this tiny tumor focus, I consider it an artifact because there is a disrupted portion of sinus fat overlying this focus of tumor. This fatty tissue has the cautery artifact that represents the true surgical margin. Therefore, I consider the surgical margin to be negative a lthough within 1 mm of the resection margin. Addendum electronically signed by Clifford Londono MD on 10/03/2016 at 12:57 PMA. "FAT OVERLYING TUMOR", EXCISION: - ADIPOSE AND CONNECTIVE TISSUE, - NEGATIVE FOR MALIGNANCYB. KIDNEY, RIGHT, PARTIAL NEPHRECTOMY: - CLEAR CELL RENAL CELL CARCINOMA, CONVENTIONAL, OLEG GRADE 2 3.2 X 2.5 X 1.7CM - TUMOR EXTENDS ENTIRELY THROUGH THE RENAL CAPSULE AND FOR 1MM INTO THE PERIRENAL ADIPOSE TISSUE, IN THE MEDULLARY REGION (SEE MICROSCOPIC SECTION) - TUMOR ISPRESENT AT THE BLUE INKED/RENAL PARENCHYMAL MEDULLARY REGION OF EXCISION - THE EXTRA-RENAL PARENCHYMAL MARGIN, RENAL CORTICAL, PERIPHERAL, AND PERIRENAL ADIPOSE TISSUE ARE ALL NEGATIVE FOR TUMOR - NO DEFINTIVE LYMPHOVASCULAR AND/OR PERINEURAL INVASION - THE PERITUMORAL RENAL TISSUE SHOWS A FEW SCLEROTIC GLOMERULI AND FOCAL MILD CHRONIC INFLAMMATION, MOSTLY PERITUMORAL KIDNEY: Nephrectomy, Partial or Radical (Kidney Res - All Specimens) Specimen Site: Kidney structureSPECIMEN Procedure: Partial nephrectomy Specimen Laterality: Right Tumor Site: Middle Tumor Focality: Unifocal Macroscopic Extent of Tumor: Tumor extension into perinephric tissuesTUMOR Histologic Type: Clear cell renal cell carcinoma Sarcomatoid Features: Not identified Histologic Grade (Oleg Nuclear Grade): G2: Nuclei slightly irregular, approximately 15 micr ons; nucleoli evidentEXTENT Tumor Size (largest tumor if multiple): Greatest dimension (cm): 3.2 cm Additional Dimension (cm): 2.5 cm Additional Dimension (cm): 1.7 cm Microscopic Tumor Extension: Tumor extension into perinephric tissue (beyond renal capsule)MARGINS Margin Status: Margin(s) involved by invasive carcinoma Margin Status: Perinephric fat margin (partial nephrectomy only)ACCESSORY FINDINGS Tumor Necrosis (any amount): Not identified Lymph- Vascular Invasion: Not identified: no definitvevascular LVinvasionSTAGE (pTNM) TNM Descriptors: Not applicable Primary Tumor (pT): pT3a: Tumor grossly extends into the renal vein or its segmental (muscle containing) branches, or tumor invades perirenal and / or renal sinus fat but not beyond Gerota's fascia Regional Lymph Nodes (pN): pNX: Regionallymph nodes cannot be assessed Status of Regional Lymph Nodes: No nodes submitted or found Distant Metastasis (pM): Not applicableADDITIONAL NON-TUMOR Pathologic Findings in Nonneoplastic Kidney: None [id number] renal massA. Fat overlying tumor; B. Right renal massThe specimen is received in two containers both labeled with the patient's information, received in formalin.Part A labeled"fat overlying tumor" consists of gutierrez-red adipose tissue measuring 1.4 x 0.8 x 0.3 cm. Tissue is entirely submitted A1. Part B labeled "right renal mass" consists of of a 19 gm partial nephrectomy measuring 4.2 x 3 x 1.6 cm with attached adipose tissue measuring 3.5 x 1 x 0.4 cm. The specimen is intact.Ink code: kidney parenchyma, blue; adipose tissue, black. The specimen is serially sectioned showing a hobbs yellow mass measuring 3.2 x 2.5 x 1.7 cm closest to the kidney parenchymal margin at 0.1 cm. The mass is grossly confirmed within the capsule and is not involving the attached adipose tissue.Section code: B1 through B3, nearest tumor to kidney parenchymal margin; B4 to B6, tumor with capsule and attached adipose tissue. CG/pl The renal cell carcinoma is of a classic clear cell type. The [facility] rman nuclear grade is 2. Some oncocytic cells are focally present, not prominent, and there are no features of chromophobe renal cell carcinoma. Some blood lakes are present. There is tumor that extends entirely through the renal capsule in the medullary region (slide B2), which also shows blue ink, where the tumor has extended into the peirenal fat/zoraida nephric tissue for 1 mm and is present at the blue inked margin of excision, in a 1 mm focus. The cortical region of the kidney shows an attenuatedcapsule and some attenuated renal parenchyma, without tumor, (there is extension of tumor into but not through the renal capsule in this region) or into the surrounding adipose tissue.CYTOLOGY 2016-09-19 14:54:00Medical Cytology Report Case: [id number] Authorizing Provider: Skyler Lin MD Collected: 09/16/2016 0804 Ordering Location: [facility] Received: 09/16/2016 0957 SERVICES Pathologist: Alex Shah MD Specimen: Urine, Bladder Wash, Bladder washings BLADDER WASHING (CYTOSPINS): - NO MALIGNANT CELLS IDENTIFIED Signing Pathologist Direct Phone Line: [phone] signed by Alex Shah MD on 09/19/2016 at 2:54 [id number] renal massBLADDER WASHING4 cytospins prepared from 30 ml yellow fluidCollected: [id number]: [id number] [facility], [facility] of [facility], [address] [place] [id number], [facility], [address] [place] [address], VZPJH METABOLIC PANEL 2016-09-18 05:24:00 Test Item Value Reference Range Interpretation Comments SODIUM (BEAKER) 131 meq/L 136-145 L (test code = 381) POTASSIUM (BEAKER) 3.8 meq/L 3.5-5.1 (test code = 379) CHLORIDE (BEAKER) 101 meq/L 98-107 (test code = 382) CO2 (BEAKER) (test 23 meq/L 22-29 code = 355) BLOOD UREA NITROGEN 5 mg/dL 7-21 L (BEAKER) (test code = 354) CREATININE (BEAKER) 0.60 mg/dL 0.57-1.25 (test code = 358) GLUCOSE RANDOM 90 mg/dL 70-105 (BEAKER) (test code = 652) CALCIUM (BEAKER) 8.1 mg/dL 8.4-10.2 L (test code = 697) EGFR (BEAKER) (test 103 mL/min/1.73 ESTIM ATED GFR IS code = 1092) sq m NOT ACCURATE CREATININE CLEARANCE IN PREDICTING GLOMERULAR FILTRATION RATE . ESTIMATED GFR I S NOT APPLICABLE FOR DIALYSIS PATIEN TS. HEMOGLOBIN AND [id number] 05:08:00 Test Item Value Reference Range Interpretation Comments HEMOGLOBIN (BEAKER) (test code = 11.5 GM/DL 12.0-15.0 L 410) HEMATOCRIT (BEAKER) (test code = 34.7 % 36.0-45.0 L 411) BASIC METABOLIC [id number] 06:11:00 Test Item Value Reference Range Interpretation Comments SODIUM (BEAKER) 132 meq/L 136-145 L (test code = 381) POTASSIUM (BEAKER) 3.9 meq/L 3.5-5.1 (test code = 379) CHLORIDE (BEAKER) 106 meq/L 98-107 (test code = 382) CO2 (BEAKER) (test 21 meq/L 22-29 L code = 355) BLOOD UREA NITROGEN 7 mg/dL 7-21 (BEAKER) (test code = 354) CREATININE (BEAKER) 0.60 mg/dL 0.57-1.25 (test code = 358) GLUCOSE RANDOM 82 mg/dL 70-105 (BEAKER) (test code = 652) CALCIUM (BEAKER) 7.8 mg/dL 8.4-10.2 L (test code = 697) EGFR (BEAKER) (test 103 mL/min/1.73 ESTIM ATED GFR IS code = 1092) sq m NOT ACCURATE CREATININE CLEARANCE IN PREDICTING GLOMERULAR FILTRATION RATE . ESTIMATED GFR I S NOT APPLICABLE FOR DIALYSIS PATIEN TS. CBC W/PLT COUNT & AUTO [id number] 05:55:00 Test Item Value Reference Range Interpretation Comments WHITE BLOOD CELL COUNT (BEAKER) 8.4 K/ L 4.0-10.0 (test code = 775) RED BLOOD CELL COUNT (BEAKER) 3.33 M/ L 4.00-5.00 L (test code = 761) HEMOGLOBIN (BEAKER) (test code = 11.8 GM/DL 12.0-15.0 L 410) HEMATOCRIT (BEAKER) (test code = 35.0 % 36.0-45.0 L 411) MEAN CORPUSCULAR VOLUME (BEAKER) 105.0 fL 82.0-99.0 H (test code = 753) MEAN CORPUSCULAR HEMOGLOBIN 35.6 pg 27.0-33.0 H (BEAKER) (test code = 751) MEAN CORPUSCULAR HEMOGLOBIN CONC 33.9 GM/DL 32.0-36.0 (BEAKER) (test code = 752) RED CELL DISTRIBUTION WIDTH 11.9 % 10.3-14.2 (BEAKER) (test code = 412) PLATELET COUNT (BEAKER) (test 224 K/CU MM 150-430 code = 756) MEAN PLATELET VOLUME (BEAKER) 6.0 fL 6.5-10.5 L (test code = 754) NUCLEATED RED BLOOD CELLS 0 /100 WBC 0-0 (BEAKER) (test code = 413) NEUTROPHILS RELATIVE PERCENT 65 % (BEAKER) (test code = 429) LYMPHOCYTES RELATIVE PERCENT 26 % (BEAKER) (test code = 430) MONOCYTES RELATIVE PERCENT 9 % (BEAKER) (test code = 431) EOSINOPHILS RELATIVE PERCENT 0 % (BEAKER) (test code = 432) BASOPHILS RELATIVE PERCENT 0 % (BEAKER) (test code = 437) NEUTROPHILS ABSOLUTE COUNT 5.42 K/ L 1.80-8.00 (BEAKER) (test code = 670) LYMPHOCYTES ABSOLUTE COUNT 2.17 K/ L 1.48-4.50 (BEAKER) (test code = 414) MONOCYTES ABSOLUTE COUNT (BEAKER) 0.72 K/ L 0.00-1.30 (test code = 415) EOSINOPHILS ABSOLUTE COUNT 0.03 K/ L 0.00-0.50 (BEAKER) (test code = 416) BASOPHILS ABSOLUTE COUNT (BEAKER) 0.02 K/ L 0.00-0.20 (test code = 417) 0.00BASIC METABOLIC [id number] 12:54:00 Test Item Value Reference Range Interpretation Comments SODIUM (BEAKER) 133 meq/L 136-145 L (test code = 381) POTASSIUM (BEAKER) 4.2 meq/L 3.5-5.1 (test code = 379) CHLORIDE (BEAKER) 105 meq/L 98-107 (test code = 382) CO2 (BEAKER) (test 21 meq/L 22-29 L code = 355) BLOOD UREA NITROGEN 11 mg/dL 7-21 (BEAKER) (test code = 354) CREATININE (BEAKER) 0.62 mg/dL 0.57-1.25 (test code = 358) GLUCOSE RANDOM 110 mg/dL 70-105 H (BEAKER) (test code = 652) CALCIUM (BEAKER) 7.7 mg/dL 8.4-10.2 L (test code = 697) EGFR (BEAKER) (test 100 mL/min/1.73 ESTIM ATED GFR IS code = 1092) sq m NOT ACCURATE CREATININE CLEARANCE IN PREDICTING GLOMERULAR FILTRATION RATE . ESTIMATED GFR I S NOT APPLICABLE FOR DIALYSIS PATIEN TS. CBC W/PLT COUNT & AUTO [id number] 12:43:00 Test Item Value Reference Range Interpretation Comments WHITE BLOOD CELL COUNT (BEAKER) 13.1 K/ L 4.0-10.0 H (test code = 775) RED BLOOD CELL COUNT (BEAKER) 4.24 M/ L 4.00-5.00 (test code = 761) HEMOGLOBIN (BEAKER) (test code = 14.1 GM/DL 12.0-15.0 410) HEMATOCRIT (BEAKER) (test code = 44.5 % 36.0-45.0 411) MEAN CORPUSCULAR VOLUME (BEAKER) 105.0 fL 82.0-99.0 H (test code = 753) MEAN CORPUSCULAR HEMOGLOBIN 33.3 pg 27.0-33.0 H (BEAKER) (test code = 751) MEAN CORPUSCULAR HEMOGLOBIN CONC 31.7 GM/DL 32.0-36.0 L (BEAKER) (test code = 752) RED CELL DISTRIBUTION WIDTH 13.8 % 10.3-14.2 (BEAKER) (test code = 412) PLATELET COUNT (BEAKER) (test 278 K/CU MM 150-430 code = 756) MEAN PLATELET VOLUME (BEAKER) 6.2 fL 6.5-10.5 L (test code = 754) NUCLEATED RED BLOOD CELLS 0 /100 WBC 0-0 (BEAKER) (test code = 413) NEUTROPHILS RELATIVE PERCENT 80 % (BEAKER) (test code = 429) LYMPHOCYTES RELATIVE PERCENT 14 % (BEAKER) (test code = 430) MONOCYTES RELATIVE PERCENT 5 % (BEAKER) (test code = 431) EOSINOPHILS RELATIVE PERCENT 1 % (BEAKER) (test code = 432) BASOPHILS RELATIVE PERCENT 0 % (BEAKER) (test code = 437) NEUTROPHILS ABSOLUTE COUNT 10.50 K/ L 1.80-8.00 H (BEAKER) (test code = 670) LYMPHOCYTES ABSOLUTE COUNT 1.83 K/ L 1.48-4.50 (BEAKER) (test code = 414) MONOCYTES ABSOLUTE COUNT (BEAKER) 0.61 K/ L 0.00-1.30 (test code = 415) EOSINOPHILS ABSOLUTE COUNT 0.09 K/ L 0.00-0.50 (BEAKER) (test code = 416) BASOPHILS ABSOLUTE COUNT (BEAKER) 0.05 K/ L 0.00-0.20 (test code = 417) 0.00CYTOLOGY [id number] 11:00:00 Test Item Value Reference Range Interpretation Comments CYTOLOGY RESULT POINTER See Separate Report (BEAKER) (test code = 2629) SODIUM NA-STAT [id number] 06:14:00 Test Item Value Reference Range Interpretation Comments SODIUM (BEAKER) (test code = 381) 127 meq/L 135-148 L [id number] 12:45:00 Test Item Value Reference Range Interpretation Comments SODIUM (BEAKER) (test code = 381) 131 meq/L 136-145 L POTASSIUM (BEAKER) (test code = 4.1 meq/L 3.5-5.1 379) CHLORIDE (BEAKER) (test code = 382) 98 meq/L 98-107 CO2 (BEAKER) (test code = 355) 28 meq/L 22-29 BUN AND [id number] 12:45:00 Test Item Value Reference Range Interpretation Comments BLOOD UREA NITROGEN 9 mg/dL 7-21 (BEAKER) (test code = 354) CREATININE (BEAKER) 0.69 mg/dL 0.57-1.25 (test code = 358) EGFR (BEAKER) (test 88 mL/min/1.73 ESTIMA GRIFFIN GFR IS code = 1092) sq m NOT ACCURATE CREATININE CLEARANCE IN PREDICTING GLOMERULAR FILTRATION RATE . ESTIMATED GFR I S NOT APPLICABLE FOR DIALYSIS PATIEN TS. [id number] 12:25:00 Test Item Value Reference Range Interpretation Comments HEMOGLOBIN (BEAKER) (test code = 15.5 GM/DL 12.0-15.0 H 410) PLATELET [id number] 12:25:00 Test Item Value Reference Range Interpretation Comments PLATELET COUNT (BEAKER) (test 323 K/CU MM 150-430 code = 756)
[2022-01-14] MEDS ORDERED: NA CHLORIDE 0.9% 1,000 ML ONE (18:23)
[2022-01-14 18:30] LABS: Absolute Lymphocytes (CBC) 1.9 K/uL (0.7-4.9); Hematocrit 35.7 % (36.0-45.0); Lymphocytes % 17.2 % (15.3-44.8); MPV 6.8 fL (7.6-11.3); RBC Red Blood Cell Count 3.53 M/uL (3.86-4.86)
[2022-01-14 18:48] LABS: Albumin 2.8 g/dL (3.4-5.0); Bilirubin Direct 0.1 mg/dL (0-0.2); Bilirubin Total 0.4 mg/dL (0.2-1.0); Magnesium 1.7 mg/dL (1.8-2.4); Potassium 3.2 mmol/L (3.5-5.1)
--- NOTE | 2022-01-14 19:06 | ER ---
Nurse's Notes [facility] Name: Paula Ledezma Age: 61 yrs Sex: Female : 1960 Arrival Date: 01/14/2022 Time: 17:31 Bed 4 Private MD: Brian Steel Diagnosis: Dehydration;Hypomagnesemia;Hypokalemia Presentation: 01/14 17:47 Chief complaint: Patient states: Pt reports dehydration and decreased urinary output kb3 secondary to diarrhea and vomiting as a result of chemo medications. Coronavirus screen: Vaccine status: Patient reports receiving the 2nd dose of the covid vaccine. Client denies travel out of the [place] in the last 14 days. Ebola Screen: Patient negative for fever greater than or equal to 101.5 degrees Fahrenheit, and additional compatible Ebola Virus Disease symptoms Patient denies exposure to infectious person. Patient denies travel to an Ebola-affected area in the 21 days before illness onset. No symptoms or risks identified at this time. Initial Sepsis Screen: Does the patient meet any 2 criteria? No. Patient's initial sepsis screen is negative. Does the patient have a suspected source of infection? No. Patient's initial sepsis screen is negative. Risk Assessment: Do you want to hurt yourself or someone else? Patient reports no desire to harm self or others. Onset of symptoms was January 11, 2022. 17:47 Method Of Arrival: Ambulatory kb3 17:47 Acuity: JAROD 3 kb3 Triage Assessment: 17:49 General: Appears in no apparent distress. Behavior is calm, cooperative. Pain: kb3 Complains of pain in left lateral anterior chest Pain does not radiate. Pain currently is 5 out of 10 on a pain scale. Quality of pain is described as aching, Increased pain with movement Pain began 2 weeks ago. Historical: - Allergies: 17:49 CEPHALOSPORINS; kb3 17:49 Sulfa (Sulfonamide Antibiotics); kb3 17:49 PENICILLINS; kb3 17:49 All painmeds cause severe vomiting. Pt prefers not to take them; kb3 - PMHx: 17:49 Renal cell CA with mets-Stg IV; Depressive disorder; Anxiety; Mycobacterium Cholo; kb3 Hypertensive disorder; COPD; - Immunization history:: Adult Immunizations up to date, Client reports receiving the 2nd dose of the Covid vaccine, Last tetanus immunization: unknown, Pneumococcal vaccine is up to date, Flu vaccine is up to date. - Social history:: Smoking status: Patient reports the use of cigarette tobacco products, smokes one-half pack cigarettes per day. Screenin:10 Abuse screen: Denies threats or abuse. Denies injuries from another. Nutritional db screening: No deficits noted. Tuberculosis screening: No symptoms or risk factors identified. Fall Risk None identified. No fall in past 12 months (0 pts). Secondary diagnosis (15 points) TIA, IV access (20 points). Ambulatory Aid- None/Bed Rest/Nurse Assist (0 pts). Gait- Normal/Bed Rest/Wheelchair (0 pts) Mental Status- Oriented to own ability (0 pts). Total Cuevas Fall Scale indicates Low Risk Score (25-44 pts). Placed close to Nursing Station Family Present and informed to notify staff if they need to leave bedside. Assessment: 18:10 Reassessment: Patient appears in no apparent distress at this time. Patient is alert, db oriented x 3, equal unlabored respirations, skin warm/dry/pink. states has nausea and vomiting recently seen for the dehydration. 18:10 General: Appears in no apparent distress. comfortable, Behavior is calm, cooperative, db appropriate for age, quiet. Pain: Denies pain. Neuro: No deficits noted. Neuro: Level of Consciousness is awake, alert, obeys commands, Oriented to person, place, time, situation, Appropriate for age Speech is normal, Facial symmetry appears normal, Pupils are PERRLA. Cardiovascular: No deficits noted. Respiratory: No deficits noted. GI: Reports diarrhea, nausea, vomiting. : Reports difficulty urinating due to dehydration. EENT: No deficits noted. Derm: No deficits noted. Musculoskeletal: No deficits noted. 19:09 Reassessment: Patient appears in no apparent distress at this time. No changes from db previously documented assessment. Patient and/or family updated on plan of care and expected duration. Pain level reassessed. Patient is alert, oriented x 3, equal unlabored respirations, skin warm/dry/pink. 19:53 Reassessment: No changes from previously documented assessment. Patient and/or family vc1 updated on plan of care and expected duration. Pain level reassessed. Patient is alert, oriented x 3, equal unlabored respirations, skin warm/dry/pink. Vital Signs: 17:47 BP 161 / 93; Pulse 77; Resp 18; Pulse Ox 95% ; Weight 58.06 kg; Height 5 ft. 6 in. kb3 (167.64 cm); Pain 5/10; 18:00 BP 131 / 87; Pulse 77; Resp 16; Pulse Ox 95% ; db 18:30 BP 138 / 90; Pulse 109; Resp 16; Pulse Ox 95% ; db 19:00 BP 151 / 95; Pulse 77; Resp 18; Pulse Ox 93% on R/A; vc1 20:32 BP 154 / 95; Pulse 78; Resp 17; Pulse Ox 95% on R/A; vc1 17:47 Body Mass Index 20.66 (58.06 kg, 167.64 cm) kb3 ED Course: 17:31 Patient arrived in ED. mr 17:32 Brian Steel is Private Physician. mr 17:36 Arm band placed on Patient placed in an exam room, on a stretcher. ll1 17:37 [facility] snw 17:37 Kia Arnold MD is Attending Physician. snw 17:49 Triage completed. kb3 18:13 Alice Gonsalves, MELVIN is Primary Nurse. db 18:20 Inserted saline lock: 20 gauge in left antecubital area, using aseptic technique. Blood db collected. 19:05 Jude Fernandez MD is Hospitalizing Provider. snw 19:08 Patient has correct armband on for positive identification. Bed in low position. Call db light in reach. Side rails up X 1. Report given to power distributor. 20:50 SARS-COV-2 Antigen Rapid Sent. oe 22:20 No provider procedures requiring assistance completed. Patient admitted, IV remains in vc1 place. Administered Medications: 18:25 Drug: NS 0.9% 1000 ml Route: IV; Rate: 125 ml/hr; Site: left antecubital; db 19:36 Drug: Magnesium Sulfate 1 grams Route: IVPB; Infused Over: 1 hrs; Site: left ke1 antecubital; 19:36 Drug: Potassium Chloride 20 mEq Route: IV; Rate: calculated rate; Site: left ke1 antecubital; 19:51 Drug: Cyanocobalamin 1000 mcg Route: IM; Site: left deltoid; hb 21:25 Drug: Nicoderm CQ Patch 21 mg/24 hr 1 patches {Note: Left posterior shoulder.} Route: vc1 Transdermal; Site: affected area; Medication: 19:09 VIS not applicable for this client. db Outcome: 19:05 Decision to Hospitalize by Provider. snw 22:21 Admitted to Med/surg accompanied by tech, via wheelchair, room 209, Report called to abbey Son RN 22:21 Condition: good 22:21 Instructed on the need for admit. 22:21 Patient left the ED. 1 Signatures: Helga Kelley, PONY RIDE OPERATOR-C PONY RIDE OPERATOR-Csnw Machelle Corral HennessyCrystal, RN RN Jax Ferguson Lynsay, RN RN ll1 Ryann Flaherty RN RN 1 Faraz Jaramillo RN MELVIN ke1 Deysi Quispe, RN RN kb3 Alice Gonsalves RN RN db Corrections: (The following items were deleted from the chart) 17:54 17:47 BP 161 / 93; Pulse 77bpm; Resp 18bpm; Pulse Ox 95%; 58.06 kg; Height 5 ft. 6 in.; kb3 BMI: 20.6; Pain 0/10; kb3 19:54 19:53 BP 151 / 95; Pulse 77bpm; Resp 18bpm; Pulse Ox 93% RA; vc1 vc1 21:25 20:32 BP 154 / 95; Pulse 8bpm; Resp 17bpm; Pulse Ox 95% RA; hb vc1
--- NOTE | 2022-01-14 19:06 | EDPHYS ---
Physician Documentation [facility] Name: Paula Ledezma Age: 61 yrs Sex: Female : 1960 Arrival Date: 01/14/2022 Time: 17:31 Bed 4 Private MD: Brian Steel ED Physician Kia Arnold HPI: 01/14 17:51 This 61 yrs old Female presents to ER via Ambulatory with complaints of Dehydration. snw 17:51 Onset: The symptoms/episode began/occurred acutely. Associated signs and symptoms: snw Pertinent positives: decreased urine output.. Modifying factors: The patient symptoms are alleviated by nothing, the patient symptoms are aggravated by Pt had to stop her current chemo treatment prior to repair of PFO. + N/V and feels dry. It is unknown whether or not the patient has had similar symptoms in the past. The patient has been recently seen by a physician:. sees aarti Castrejon for renal cell with mets at [facility].. Historical: - Allergies: 17:49 CEPHALOSPORINS; kb3 17:49 Sulfa (Sulfonamide Antibiotics); kb3 17:49 PENICILLINS; kb3 17:49 All painmeds cause severe vomiting. Pt prefers not to take them; kb3 - PMHx: 17:49 Renal cell CA with mets-Stg IV; Depressive disorder; Anxiety; Mycobacterium Cholo; kb3 Hypertensive disorder; COPD; - Immunization history:: Adult Immunizations up to date, Client reports receiving the 2nd dose of the Covid vaccine, Last tetanus immunization: unknown, Pneumococcal vaccine is up to date, Flu vaccine is up to date. - Social history:: Smoking status: Patient reports the use of cigarette tobacco products, smokes one-half pack cigarettes per day. ROS: 17:47 Constitutional: Negative for fever, chills, and weight loss, Eyes: Negative for injury, snw pain, redness, and discharge, ENT: Negative for injury, pain, and discharge, Neck: Negative for injury, pain, and swelling, Cardiovascular: Negative for chest pain, palpitations, and edema, Respiratory: Negative for shortness of breath, cough, wheezing, and pleuritic chest pain, Abdomen/GI: Negative for abdominal pain, nausea, vomiting, diarrhea, and constipation, Back: Negative for injury and pain, : Negative for injury, bleeding, discharge, and swelling, not voiding very much. Went for IV fluids elsewhere and rec'd NS. Continues to feel dry. decided pt needed 23 hour obs. and instructed her to come to ED. MS/Extremity: Negative for injury and deformity, Skin: Negative for injury, rash, and discoloration, Neuro: Negative for headache, weakness, numbness, tingling, and seizure. Exam: 17:46 Constitutional: This is a well developed, well nourished patient who is awake, alert, snw and in no acute distress. Head/Face: Normocephalic, atraumatic. Eyes: Pupils equal round and reactive to light, extra-ocular motions intact. Lids and lashes normal. Conjunctiva and sclera are non-icteric and not injected. Cornea within normal limits. Periorbital areas with no swelling, redness, or edema. ENT: Nares patent. No nasal discharge, no septal abnormalities noted. Tympanic membranes are normal and external auditory canals are clear. Oropharynx with no redness, swelling, or masses, exudates, or evidence of obstruction, uvula midline. Mucous membranes moist. Neck: Trachea midline, no thyromegaly or masses palpated, and no cervical lymphadenopathy. Supple, full range of motion without nuchal rigidity, or vertebral point tenderness. No Meningismus. 17:46 Cardiovascular: Regular rate and rhythm with a normal S1 and S2. No gallops, murmurs, or rubs. Normal PMI, no JVD. No pulse deficits. Respiratory: Lungs have equal breath sounds bilaterally, clear to auscultation and percussion. No rales, rhonchi or wheezes noted. No increased work of breathing, no retractions or nasal flaring. Abdomen/GI: Soft, non-tender, with normal bowel sounds. No distension or tympany. No guarding or rebound. No evidence of tenderness throughout. Back: No spinal tenderness. No costovertebral tenderness. Full range of motion. Skin: Warm, dry with normal turgor. Normal color with no rashes, no lesions, and no evidence of cellulitis. MS/ Extremity: Pulses equal, no cyanosis. Neurovascular intact. Full, normal range of motion. Neuro: Awake and alert, GCS 15, oriented to person, place, time, and situation. Cranial nerves II-XII grossly intact. Motor strength 5/5 in all extremities. Sensory grossly intact. Cerebellar exam normal. Normal gait. Psych: Awake, alert, with orientation to person, place and time. Behavior, mood, and affect are within normal limits. 17:46 Chest/axilla: Inspection: normal, Palpation: tenderness, that is moderate, of the left lateral anterior chest, s/p fall, no crepitus. Vital Signs: 17:47 BP 161 / 93; Pulse 77; Resp 18; Pulse Ox 95% ; Weight 58.06 kg; Height 5 ft. 6 in. kb3 (167.64 cm); Pain 5/10; 18:00 BP 131 / 87; Pulse 77; Resp 16; Pulse Ox 95% ; db 18:30 BP 138 / 90; Pulse 109; Resp 16; Pulse Ox 95% ; db 19:00 BP 151 / 95; Pulse 77; Resp 18; Pulse Ox 93% on R/A; vc1 20:32 BP 154 / 95; Pulse 78; Resp 17; Pulse Ox 95% on R/A; vc1 17:47 Body Mass Index 20.66 (58.06 kg, 167.64 cm) kb3 MDM: 17:45 Patient medically screened. snw 19:06 Data reviewed: vital signs, nurses notes. Data interpreted: Pulse oximetry: on room air snw is 95 %. Interpretation: acceptable. Counseling: I had a detailed discussion with the patient and/or guardian regarding: the historical points, exam findings, and any diagnostic results supporting the discharge/admit diagnosis, the presence of at least one elevated blood pressure reading (>120/80) during this emergency department visit, lab results, the need for further work-up and treatment in the hospital. Physician consultation: Gianfranco PRABHAKAR was called at 19:06, was contacted at 19:06, regarding admission, to the telemetry unit. would like admission per Dr. Jude Fernandez MD. 01/14 17:56 Order name: Basic Metabolic Panel snw 01/14 17:56 Order name: CBC with Diff snw 01/14 17:56 Order name: LFT's snw 01/14 17:56 Order name: Magnesium snw 01/14 18:34 Order name: CBC with Automated Diff; Complete Time: 18:38 EDMS 01/14 18:48 Order name: Basic Metabolic Panel; Complete Time: 19:01 EDMS 01/14 18:48 Order name: Liver (Hepatic) Function; Complete Time: 19:01 EDMS 01/14 18:48 Order name: Magnesium; Complete Time: 19:01 EDMS 01/14 20:02 Order name: SARS-COV-2 Antigen Rapid; Complete Time: 21:20 wm 01/14 20:28 Order name: Urine Dipstick-Ancillary; Complete Time: 20:53 EDMS 01/14 17:56 Order name: EKG; Complete Time: 17:58 snw 01/14 17:56 Order name: Cardiac monitoring; Complete Time: 18:29 snw 01/14 17:56 Order name: EKG - Nurse/Tech; Complete Time: 18:45 snw 01/14 17:56 Order name: IV Saline Lock; Complete Time: 18:29 snw 01/14 17:56 Order name: Labs collected and sent; Complete Time: 18:29 snw 01/14 17:56 Order name: O2 Per Protocol; Complete Time: 18:29 snw 01/14 17:56 Order name: O2 Sat Monitoring; Complete Time: 18:29 snw EC:45 Rate is 77 beats/min. Rhythm is regular. QRS [place] is Normal. NH interval is prolonged. snw Clinical impression: NSR w/ Non-specific ST/T Changes. Administered Medications: 18:25 Drug: NS 0.9% 1000 ml Route: IV; Rate: 125 ml/hr; Site: left antecubital; db 19:36 Drug: Magnesium Sulfate 1 grams Route: IVPB; Infused Over: 1 hrs; Site: left ke1 antecubital; 19:36 Drug: Potassium Chloride 20 mEq Route: IV; Rate: calculated rate; Site: left ke1 antecubital; 19:51 Drug: Cyanocobalamin 1000 mcg Route: IM; Site: left deltoid; hb 21:25 Drug: Nicoderm CQ Patch 21 mg/24 hr 1 patches {Note: Left posterior shoulder.} Route: vc1 Transdermal; Site: affected area; Disposition Summary: 01/14/22 19:05 Hospitalization Ordered Hospitalization Status: Observation snw Provider: Jude Fernandez Location: Telemetry/MedSurg (observation) snw Condition: Stable snw Problem: an acute exacerbation snw Symptoms: are unchanged snw Bed/Room Type: Standard snw Room Assignment: [id number](01/14/22 21:35) cg Diagnosis - Dehydration snw - Hypomagnesemia snw - Hypokalemia snw Forms: - Medication Reconciliation Form snw - SBAR form snw Signatures: Dispatcher [employer] EDHelga Eric, BUNCHER MACHINE-C BUNCHER MACHINE-Csnw Shantelle Cummings RN RN cg Crystal Hennessy RN RN Ryann Flaherty RN RN vc1 Faraz Jaramillo RN RN ke1 Deysi Quispe RN RN kb3 Alice Gonsalves RN RN db Corrections: (The following items were deleted from the chart) 21:35 19:05 snw cg
[2022-01-14] MEDS ORDERED: CYANOCOBALAMIN 1000MCG/ML INJ ONE (19:08)
[2022-01-14] MEDS ORDERED: KCL 20 MEQ/100 mL IVPB 100 ML IV ONE (19:21)
[2022-01-14] MEDS ORDERED: MAGNESIUM SULFATE 1 gm IVPB 1 GM/100 ML BAG IV ONE (19:21)
--- NOTE | 2022-01-14 20:05 | P.HP ---
Certification for Inpatient Patient admitted to: Observation With expected LOS: <2 Midnights Patient will require the following post-hospital care: None Practitioner: I am a practitioner with admitting privileges, knowledge of patient current condition, hospital course, and medical plan of care. Services: Services provided to patient in accordance with Admission requirements found in Title 42 Section 412.3 of the Code of Federal Regulations Patient History Date of Service: 01/14/22 Reason for admission: Dehydration, hypomagnesemia, hypokalemia History of Present Illness: 61-year-old female with history of renal cell carcinoma on oral chemo, hypertension, hyperlipidemia, GERD, anxiety presents emergency department for dehydration. She reports that she has been having diarrhea for the last 8 weeks while receiving her oral chemo, she was taken off of her oral chemo approximately 1 week ago in preparation for possible PFO surgery. She been comp laining of significant lethargy, dehydration poor toleration of oral fluids. She is evaluated in the emergency department her labs were significant for sodium 132 potassium 3.2 magnesium 1.7. ED provider wishes to admit under observation for dehydration, hypomagnesemia, hypokalemia. - Past Medical/Surgical History -: Renal cell carcinoma -: Hypertension -: Hyperlipidemia -: GERD -: Anxiety -: PFO -: Cholecystectomy -: Appendectomy -: Hysterectomy -: Shoulder, ankle surgery -: Right partial nephrectomy Psychosocial/ Personal History: Patient lives at home with her , family - Family History Mother -: Cancer Father -: Cancer - Social History Smoking Status: Current every day smoker Alcohol use: No CD- Drugs: No Caffeine use: Yes Place of Residence: Home Review of Systems 10-point ROS is otherwise unremarkable General: Weakness, Malaise Physical Examination - Physical Exam General: Alert, In no apparent distress, Oriented x3 HEENT: Atraumatic, PERRLA, Mucous membr. moist/pink, EOMI, Sclerae nonicteric Neck: Supple, 2+ carotid pulse no bruit, No LAD, Without JVD or thyroid abnormality Respiratory: Clear to auscultation bilaterally, Normal air movement Cardiovascular: Regular rate/rhythm, Normal S1 S2 Gastrointestinal: Normal bowel sounds, No tenderness Musculoskeletal: No tenderness Integumentary: No rashes Neurological: Normal gait, Normal speech, Normal strength at 5/5 x4 extr, Normal tone, Normal affect Lymphatics: No axilla or inguinal lymphadenopathy - Studies Laboratory Data (last 24 hrs) 01/14/22 18:20: WBC 11.10 H, Hgb 12.4, Hct 35.7 L, Plt Count 363 01/14/22 18:20: Sodium 132 L, Potassium 3.2 L, BUN 11, Creatinine 0.54 L, Glucose 74, Magnesium 1.7 L, Total Bilirubin 0.4, AST 25, ALT 38, Alkaline Phosphatase 83 Assessment and Plan - Plan Assessment: Dehydration secondary to diarrhea Hypokalemia Hypomagnesemia Renal cell carcinoma on oral chemo Hypertension Hyperlipidemia GERD Anxiety Plan: Dehydration secondary to diarrhea: Continue IV fluids overnight, no diarrhea currently as they are holding chemotherapy in preparation for possible PFO repair. Repeat chemistry in the morning. Hypokalemia: replaced in ED, protocol in place. Hypomagnesemia: replaced in ED, protocol in place. Renal cell carcinoma on oral chemo: OP management Hypertension: Continue home meds Hyperlipidemia: Continue home meds GERD: Continue home meds Anxiety: Continue home meds DVT PPX: Lovenox Code status: Full Discharge Plan: Home Plan to discharge in: 24 Hours - Advance Directives Does patient have a Living Will: No Does patient have a Durable POA for Healthcare: No - Code Status/Comfort Care Code Status Assessed: Yes (Ful code) Critical Care: No Time Spent Managing Pts Care (In Minutes): 55
[2022-01-14 20:28] LABS: Urine Blood Trace-lysed (Negative); Urine Glucose Negative (Negative); Urine Protein Negative (Negative)
[2022-01-14] MEDS ORDERED: ONDANSETRON 4 MG/2 ML VIAL IV PRN (21:11)
[2022-01-14 21:17] LABS: SARS-CoV-2 Antigen Rapid Res Negative (Negative)
[2022-01-14] MEDS ORDERED: NICOTINE 21 MG/PAT TD ONE (21:18)
[2022-01-14] MEDS ORDERED: POTASSIUM CL SA 10 MEQ TAB PO ONE (22:16)
[2022-01-14] MEDS: Ringers Lactate 1,000 ML IV SCH (22:31)
[2022-01-14 23:32] VITALS: BMI 20.7
[2022-01-15] MEDS: Ringers Lactate 1,000 ML IV SCH (04:13)
[2022-01-15 04:14] LABS: Hematocrit 35.5 % (36.0-45.0); Lymphocytes % 21.1 % (15.3-44.8); MCV 102.3 fL (80-100); MPV 7.3 fL (7.6-11.3); RBC Red Blood Cell Count 3.48 M/uL (3.86-4.86)
[2022-01-15 04:31] LABS: Albumin 2.5 g/dL (3.4-5.0); Bilirubin Total 0.4 mg/dL (0.2-1.0); Magnesium 1.7 mg/dL (1.8-2.4); Potassium 3.7 mmol/L (3.5-5.1); Protein, Total 5.3 g/dL (6.4-8.2)
[2022-01-15] MEDS ORDERED: MAGNESIUM SULFATE 1 gm IVPB 1 GM/100 ML BAG IV ONE (04:52)
[2022-01-15] MEDS ORDERED: POTASSIUM CL SA 10 MEQ TAB PO ONE (04:53)
[2022-01-15 08:35] VITALS: BP 155/98; TEMP 98.2
[2022-01-15] MEDS ORDERED: ENOXAPARIN 40 MG/0.4 ML SQ SCH (09:00)
--- NOTE | 2022-01-15 09:20 | P.DS ---
Admission Date: 01/14/22 Discharge Date: 01/15/22 Disposition: ROUTINE DISCHARGE Discharge Condition: GOOD Reason for Admission: Dehydration, hypomagnesemia, hypokalemia Brief History of Present Illness: 61-year-old female with history of renal cell carcinoma on oral chemo, hypertension, hyperlipidemia, GERD, anxiety presents emergency department for dehydration. She reports that she has been having diarrhea for the last 8 weeks while receiving her oral chemo, she was taken off of her oral chemo approximately 1 week ago in preparation for possible PFO surgery. She been complaining of significant lethargy, dehydration poor toleration of oral fluids. She is evaluated in the emergency department her labs were significant for sodium 132 potassium 3.2 magnesium 1.7. ED provider wishes to admit under observation for dehydration, hypomagnesemia, hypokalemia. Hospital Course: Patient was admitted with dehydration at effect of chemotherapy she has renal cancer with metastases followed up at [facility] in addition patient also has atypical Mycobacterium infection COPD active smoker at time of discharge was alert responsive oriented cooperative her symptoms seem to have resolved vital signs stable recent chemotherapy. Pill was stopped was causing her diarrhea and nausea and vomiting she has a history of COPD continues to smoke also has atypical Mycobacterium infection has been also treated with Arikayse and triple therapy stable for discharge to follow-up with her primary care physician Vital Signs/Physical Exam: Temp Pulse Resp BP Pulse Ox 98.2 F 86 18 155/98 H 93 01/15/22 08:00 01/15/22 08:00 01/15/22 08:00 01/15/22 08:00 01/15/22 08:00 Laboratory Data at Discharge: WBC 9.30 K/uL (4.3-10.9) 01/15/22 03:28 Hgb 12.5 g/dL (12.0-15.0) 01/15/22 03:28 Hct 35.5 % (36.0-45.0) L 01/15/22 03:28 Plt Count 377 K/uL (152-406) 01/15/22 03:28 Sodium 134 mmol/L (136-145) L 01/15/22 03:28 Potassium 3.7 mmol/L (3.5-5.1) D 01/15/22 03:28 BUN 6 mg/dL (7-18) L 01/15/22 03:28 Creatinine 0.38 mg/dL (0.55-1.3) L 01/15/22 03:28 Glucose 90 mg/dL (74-106) 01/15/22 03:28 Magnesium 1.7 mg/dL (1.8-2.4) L 01/15/22 03:28 Total Bilirubin 0.4 mg/dL (0.2-1.0) 01/15/22 03:28 AST 18 U/L (15-37) 01/15/22 03:28 ALT 34 U/L (12-78) 01/15/22 03:28 Alkaline Phosphatase 76 U/L (45-117) 01/15/22 03:28 Home Medications: ALPRAZolam [Xanax*] 0.5 mg PO BEDTIME 01/14/22 Buspirone HCl [Buspar] 10 mg PO BID 01/14/22 Candesartan Cilexetil 16 mg PO BEDTIME 01/14/22 Carvedilol [Coreg] 25 mg PO BID 01/14/22 Clopidogrel Bisulfate [Plavix*] 75 mg PO DAILY 01/14/22 Cyclobenzaprine [Flexeril*] 5 mg PO BEDTIME 01/14/22 Duloxetine HCl 60 mg PO DAILY 01/14/22 Eplerenone 25 mg PO BEDTIME 01/14/22 Gabapentin 300 mg PO TID 01/14/22 Levothyroxine [Synthroid*] 100 mcg PO [id number] 01/14/22 Lovastatin 20 mg PO BEDTIME 01/14/22 Omeprazole [Prilosec] 40 mg PO DAILY 01/14/22 Prochlorperazine Maleate 10 mg PO Q6HP PRN 01/14/22 Tiotropium [place] [Spiriva Respimat] 2 puff IH BID 01/14/22 Verapamil HCl [Verapamil ER] 240 mg PO DAILY 01/14/22 Acetaminophen [Tylenol Extra Strength] 1,000 mg PO TIDP PRN 01/15/22 Albuterol Inhaler [Ventolin Inhaler*] 2 puff IH BIDP PRN 01/15/22 Budesonide/Formoterol Fumarate [Symbicort 80-4.5 Mcg Inhaler] 2 puff IH BID 01/15/22 Cabozantinib S-Malate [Cabometyx] 40 mg PO DAILY 01/15/22 Cholecalciferol (Vitamin D3) [Vitamin D3] 25 mcg PO DAILY 01/15/22 Estrogens, Conjugated [Premarin] 1.25 mg PO DAILY 01/15/22 Ethambutol HCl [Myambutol] 1,200 mg PO SEECOM 01/15/22 Guanfacine HCl [Tenex*] 1 mg PO BEDTIME 01/15/22 Linaclotide [Linzess] 72 mcg PO DAILY 01/15/22 Magic Mouthwash [Magic Mouthwash*] 15 ml PO QIDP PRN 01/15/22 Mecobalamin [B12 Active] 1,000 mcg PO DAILY 01/15/22 Montelukast [Singulair*] 10 mg PO DAILY 01/15/22 Moxifloxacin HCl [Avelox] 400 mg PO DAILY 01/15/22 Ondansetron [Zofran (Odt)*] 4 mg PO BIDP PRN 01/15/22 Promethazine HCl 12.5 mg PO Q6HP PRN 01/15/22 Tramadol HCl [Ultram] 50 mg PO Q6HP PRN 01/15/22 Zinc Gluconate [Zinc] 50 mg PO DAILY 01/15/22 Followup: Brian Steel MD [Primary Care Provider] -
[2022-01-15 09:21] VITALS: O2SAT 93
--- NOTE | 2022-01-17 16:13 | EKG ---
Test Date: 2022-01-14 Test Time: 18:43:34 Academic Coordinator: LILIAN MEASUREMENT RESULTS: Intervals: Rate: 77 [place]: 240 QRSD: 80 QT: 386 QTc: 436 [place]: P: 48 [place]: 240 QRS: 66 T: 92 INTERPRETIVE STATEMENTS: Sinus rhythm with 1st degree AV block Nonspecific T wave abnormality Abnormal ECG Compared to ECG 09/15/2009 10:46:35 T-wave abnormality now present Electronically Signed On 01-17-22 16:09:43 CDT by Vidal Núñez
== END 2022-01-15 10:20 | disposition home or self-care (01) ==
LOC: ER 17:28 → ERHOLD 20:32 → 2ND 21:40
PROVIDERS: ADMIT Internal Medicine Sleep Medicine; ATTEND Internal Medicine Sleep Medicine
DX: E86.0 Dehydration (principal); E83.42 Hypomagnesemia; E87.6 Hypokalemia; A31.0 Pulmonary mycobacterial infection; C64.9 Malignant neoplasm of unspecified kidney, except renal pelvis; I10 Essential (primary) hypertension; E78.5 Hyperlipidemia, unspecified; K21.9 Gastro-esophageal reflux disease without esophagitis; F41.9 Anxiety disorder, unspecified; F17.210 Nicotine dependence, cigarettes, uncomplicated; Z20.822 Contact with and (suspected) exposure to COVID-19
CPT/HCPCS: 36415; 80048; 80053; 80076; 81003; 83735; 85025; 87811; 93005; 96372; 96374; 96375; 99285; G0378; J1650; J3420; J3475; J3480; J7030; J7120

== ENCOUNTER 2022-08-15 18:42 | Emergency (ER) | payer BC ==
--- OUTSIDE RECORDS SUMMARY | 2022-08-15 19:15 | XMS REPORT | Continuity of Care Document ---
:1960 Author Organization [facility] t Address [address] [facility]. [address] [place] [address] Care Team Providers Name Role Phone Asked, No Pcp Primary Care Physician Unavailable ALYSIA SHELL Attending Clinician Unavailable MONA GARCIA Attending Clinician Unavailable CHANTALE SWEET Attending Clinician Unavailable Alysia Shell MD Attending Clinician TAMERA FOWLER Attending Clinician Unavailable BARTOLO GOODMAN Attending Clinician Unavailable MALENA SHELL Attending Clinician Unavailable Chantale Sweet MD Attending Clinician [phone] Devi Santillan NP Attending Clinician DEVI SANTILLAN Attending Clinician Unavailable Tamera Fowler MD Attending Clinician [phone] Florentin Carpenter MD Attending Clinician [phone] Malena Shell MD Attending Clinician FLORENTIN CARPENTER Attending Clinician Unavailable PAULINE YAO Attending Clinician Unavailable Pauline Yao Attending Clinician Bren Sebastian Attending Clinician [phone] ALLAN CEE Attending Clinician Unavailable Yue CARDOZA, Allan Bartholomew Attending Clinician Job Penny MD Attending Clinician Duran Goldstein Attending Clinician Jose CARDOZA, Mona Messer Attending Clinician Pauline Yao MD Attending Clinician Unavailable DEVI SANTILLAN Attending Clinician Unavailable Pauline Boone MD, Guilherme Attending Clinician Jeff Luciano MD Attending Clinician 1, [facility] Room Attending Clinician Unavailable Jaelyn GILLIS, Abigail Carty Attending Clinician [phone] ABIGAIL CHRISTY Attending Clinician Unavailable 1.5, [facility] Attending Clinician Unavailable ELIDA DE LEON Attending Clinician Unavailable Corporate Safety Manager, [employer] Staff Attending Clinician Unavailable Napoleon Billy MD Attending Clinician RAFAEL GALLAGHER Attending Clinician Unavailable Rafael Gallagher MD Attending Clinician YOMAIRA GUPTA Attending Clinician Unavailable KAROLINA ROSE Attending Clinician Unavailable Elida De Leon MD Attending Clinician [phone] Tamera Fowler MD Attending Clinician Unavailable TAMERA FOWLER Attending Clinician Unavailable Fina Carbone MD Attending Clinician ALYCE LAM Attending Clinician Unavailable CARL PARRA Attending Clinician Unavailable CARL PARRA Attending Clinician Unavailable Carl Parra MD Attending Clinician JAMES DEE Attending Clinician Unavailable Kristie Salguero RN Attending Clinician Unavailable Only, Adc Test Attending Clinician Unavailable Kevin Gandhi MD Attending Clinician KEVIN GANDHI Attending Clinician Unavailable Doctor Unassigned, [place] Attending Clinician Unavailable Pob, [facility] Lab Main [...] Clinician Unavailable Skyler Lin MD Attending Clinician ALYSIA SHELL MAKSIM Admitting Clinician Unavailable FLORENTIN CARPENTER Admitting Clinician Unavailable TAMERA FOWLER Admitting Clinician Unavailable JAMES DEE NKIRU Admitting Clinician Unavailable WEI GANDHI Admitting Clinician Unavailable MD RAHEEM JOE Admitting Clinician Unavailable SKYLER LIN Admitting Clinician Unavailable Payers Payer Name Policy Type Policy Number Effective Date Expiration Date [facility] BCBS OS [id number] 2020 POS/PPO/EPO 00:00:00 OUT OF STATE BC [id number] - PPO - BCBS CVCP-BCBS [id number] GENERIC PPO - [id number] GENERIC PAYOR GENERIC COMMERCIAL [id number] 2016 2017 00:00:00 00:00:00 Problems Condition Condition Condition Status Onset Resolution Last Treating Co mments Source Name Details Category Date Date Treatment Clinician Date PFO PFO Disease Active 2021-[address] [facility] (patent (patent 104 [facility] foramen foramen 00:00: Medical ovale) ovale) 00 Center Ventricula Ventricula Disease Active 2021-[address] r septal r septal 1-03 [facility] defect defect 00:[facility] Medical 00 Center 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 ium avium 3-02 [facility] infection infection 00:00: of 00 Medicin e Pneumothor Pneumothor Disease Active [facility] ax after ax after 9 [facility] biopsy biopsy 00:00: Medical 00 [place] Pneumothor Pneumothor Disease Active M ethodi ax ax [facility] 00[facility] Hosp[facility] 00 l Nodule of Nodule of Disease Active Met hodi lower lobe lower lobe 04-23 st of left of left 00:00: Hospita lung lung 00 l CVID CVID Disease Active [facility] (common (common 2-18 College variable variable 00:00: of immunodefi immunodefi 00 Me dicin ciency) ciency) e Gastropare Gastropare Disease Active 2016-04 [facility] sis sis 0-21 College 00:00: of 00 Medicin e Renal mass Renal mass Disease Active [facility] 7-17 College 00:00: of 00 Medicin e Personal Personal Disease Active [facility] r history of history of 6-29 Co llege kidney kidney 00:00: of cancer cancer 00 Medicin e Personal Personal Disease Active [facility] r history of history of 6-29 Co llege kidney kidney 00:00: of cancer cancer 00 Medicin e Personal Personal Disease Active [facility] r history of history of 6-29 Co llege kidney kidney 00:00: of cancer cancer 00 Medicin e Right Right Disease Active [facility] renal mass renal mass 6-16 Marybeth kes 00:00: Medical 00 Center Essential Essential Disease Active [facility] hypertensi hypertensi 5-10 Co llege on on 00:00: of 00 Medicin e Hip pain, Hip pain, Disease Active 2014-04 [facility] vers bilateral bilateral 1-25 ity of 00:00: [place] 00 Medical Branch Shoulder Shoulder Disease Active 2014-04 Unive rs pain, pain, 1-25 [place] Livedo Livedo Disease Active [facility] reticulari reticulari Co llege s s of Medicin e History of History of Disease Active [facility] stomach stomach College ulcers ulcers of Medicin e Migraine Migraine Disease Active [facility] headache headache Colleg e of Medicin e COPD COPD Disease Active [facility] (chronic (chronic Colleg e obstructiv obstructiv of e e Medicin pulmonary pulmonary e disease) disease) Carotid Carotid Disease Active [facility] artery artery [place] disease disease of Medicin e Pneumonia Pneumonia Disease Active [facility] Medicin e Diverticul Diverticul Disease Active [facility] itis itis College of Medicin e Allergies, Adverse Reactions, Alerts Allergy Allergy Status Severity Reaction(s) Onset Inactive Treating Comm ents Source Name Type Date Date Clinician Propofol Propensi Active [facility] ty to 06-03 [place] adverse 00:00: of reaction 00 Medicin s to e drug Propofol Propensi Active Anaphylaxis 2021-04 Severe [facility] ty to 04-05 Health system adverse 00:00: on of reaction 00 occurred Medici n s to twice e drug when propofol administe red during PFO closure. Highly suspected allergic reaction to propofol. Tryptase. Propofol Drug Active Anaphylaxis 2021-[address] Allergy 04-05 hypotensi [facility] 00:00: on Medical 00 occurred Center twice when propofol administe red during PFO closure. Highly suspected allergic reaction to propofol. Tryptase. PROPOFOL Allergy Active High Anaphylaxis 2021-[address] 04-05 [facility] 00:[facility]: Medical 00 Center ADHESIVE Allergy Active High Other [facility] 605 00:00: 00 CEPHALOS Allergy Active High N\\T\\V [facility] PORINS 09-05 00:00: 00 OTHER Allergy Active High N\\T\\V 0 [facility] 6-05 00:00: 00 PENICILL Allergy Active High N\\T\\V 0 [facility] INS 6-05 00:00: 00 SULFA Allergy Active High N\\T\\V 0 [facility] (SULFONA 09-05 MIDE 00:00: ANTIBIOT 00 ICS) Adhesive Propensi Active Unknown - Silk tape Univers ty to See comments 6-05 peels ity of adverse 00:00: skin off, [place] reaction 00 prefers Medical s paper Branch tape ADHESIVE Drug Active Unknown-Cmnt Un jesse Class 6-05 ity of 00:00: [place] 00 Medical Branch Adhesive Propensi Active Unknown - Silk tape Univers ty to See comments 6-05 peels ity of adverse 00:00: skin off, [place] reaction 00 prefers Medical s paper Branch tape Adhesive Drug Active Other (See Silk tape [facility] Intolera Comments) 6-05 peels [facility] nce 00:00: skin off, Medical 00 prefers Center paper tape Cephalos Drug Active Nausea And [address] [facility] porins Allergy Vomiting, 605 [facility] Other (See 00:00: Medica l Comments) 00 Center Other Propensi Active Nausea And All pain [facility] ty to Vomiting 605 meds [facility] adverse 00:00: cause Medical reaction 00 nausea/vo Cente r s miting. Usually received phenergan with pain meds Penicill Drug Active Nausea And [facility] ins Allergy Vomiting 09-05 [facility] 00:00: Medical 00 Center Sulfa Drug Active Nausea And [facility] (Sulfona Allergy Vomiting 09-05 [facility] mide 00:00: Medical Antibiot 00 Center [facility]) Adhesive Drug Active Other (See Silk tape [facility] Intolera Comments) 09-05 peels [facility] nce 00:00: skin off, Medical 00 prefers Center paper tape Cephalos Drug Active Nausea And [facility] porins Allergy Vomiting, 09-05 [facility] Other (See 00:00: Medica l Comments) 00 Center Penicill Drug Active Nausea And [facility] ins Allergy Vomiting 09-05 [facility] 00:00: Medical 00 Center Sulfa Drug Active Nausea And [facility] (Sulfona Allergy Vomiting 05 [facility] mide 00:00: Medical Antibiot 00 [facility]) Cephalos Propensi Active Fidel porins ty to 07-07 [place] adverse 00:00: of reaction 00 Medicin s to e drug Codeine Propensi Active [facility] ty to 4 [place] adverse 00:00: of reaction 00 Medicin s to e drug Penicill Propensi Active [facility] ins ty to 07-07 [place] adverse 00:00: of reaction 00 Medicin s to e drug Sulfa Propensi Active [facility] Antibiot ty to 06 [place] ics adverse 00:00: of reaction 00 Medicin s to e drug Cephalos Propensi Active Nausea Univer s porins ty to and/or 406 ity of adverse Vomiting 00:00: [place] reaction 00 Medical s Branch CEPHALOS Drug Active N/V Univers PORINS Class 4-06 ity of 00:00: [place] 00 Medical Branch PENICILL Drug Active N/V Univers INS Class 4-06 ity of 00:00: [place] 00 Medical Branch Penicill Propensi Active Nausea Univer s ins ty to and/or 4-06 ity of adverse Vomiting 00:00: [place] reaction 00 Medical s Branch Cephalos Propensi Active Nausea Univer s porins ty to and/or - ity of adverse Vomiting 00:00: [place] reaction Medical s Branch Penicill Propensi Active Nausea Univer s ins ty to and/or - ity of adverse Vomiting 00:00: [place] reaction Medical s Branch CODEINE DRUG Active N/V 2014-04 Univers INGREDI 04-13 ity of 00:00: [place] 00 Medical Branch Codeine Propensi Active Nausea 2014-04 Univers ty to and/or 04-13 ity of adverse Vomiting 00:00: [place] reaction Medical s Branch PENICILL DRUG Active N/V 2014-04 Univers IN INGREDI 04-13 ity of 00:00: [place] 00 Medical Branch SULFA Drug Active N/V 2014-04 Univers (SULFONA Class 04-13 ity of MIDE 00:00: [place] ANTIBIOT 00 Medical ICS) Branch Penicill Propensi Active Nausea 2014-04 Univer s in ty to and/or 04-13 ity of adverse Vomiting 00:00: [place] reaction Medical s Branch Sulfa Propensi Active Nausea 2014-04 Univers (Sulfona ty to and/or 04-13 ity of mide adverse Vomiting 00:00: [place] Antibiot reaction 00 Medica l ics) s Branch Sulfa Propensi Active Nausea 2014-04 Univers (Sulfona ty to and/or 04-13 ity of mide adverse Vomiting 00:00: [place] Antibiot reaction 00 Medica l ics) s Branch Codeine Drug Active Nausea And 2014-04 [facility] Allergy [facility]omiting [facility]13 [facility] 00:[facility] Medical [facility] Center CODEINE Allergy Active High N\\T\\V 2014-[address] 04-13 [facility] 00:[facility]: Medical 00 Center Family History Family Member Diagnosis Comments Start Date Stop Date Source Natural brother Heart disease [facility] Natural father Heart disease [facility] Natural mother Dementia [facility] Natural sister Heart disease [facility] Social History Social Habit Start Date Stop Date Quantity Comments Source History [facility] Comment of Medici ne History of tobacco Cigarette Smoker [facility] use of Medicine History SDTN [facility] Exposure to 2022-07-05 2022-07-15 Not sure [facility] Colleg e SARS-CoV-2 (event) 00:00:00 11:33:00 of Med icine Alcohol intake 2022-03-11 2022-03-11 Ex-drinker [facility] 00:00:00 00:00:00 (finding) Medical Center History [facility] 2022-02-03 2022-02-[address] [facility] Transport Med 00:00:00 00:00:[address] [facility] 2022-02-03 2022-02-[address] [facility] Housing Unable to 00:00:00 00:00:00 Medical Center Pay History [facility] 2022-02-03 2022-02-[address] [facility] Housing Places 00:00:00 00:00:00 Medical Ce nter Lived History [facility] 2022-02-03 2022-02-[address] [facility] Housing Homeless 00:00:00 00:00:00 Medical Center Last Year Cigarettes smoked 2020-12-29 2020-12-[address] [facility] current (pack per 00:00:00 00:00:00 Medical Center day) - Reported Cigarette 2020-12-29 2020-12-[address] [facility] pack-years 00:00:00 00:00:00 Medical Center Tobacco use and 2020-12-29 2020-12-[address] [facility] exposure 00:00:00 00:00:00 non-user Medical Center History of Social 2020-04-27 2020-04-[address] function 00:00:00 00:00:00 Hospital History [facility] 2020-04-23 2020-04-23 1 [facility] 00:00:00 00:00:00 Hospita l Tobacco Comment 2016-09-16 2016-09-[address] [facility] 00:00:00 00:00:00 educated Medical Center regarding smoking cessation Sex Ass[birth year] At [birth year] [facility] 00:[facility]00 Hospital Smoking Status Start Date Stop Date Source Occasional tobacco smoker 2022-01-11 00:00:00 [facility] Smokes tobacco daily 2020-12-29 00:00:00 [facility] Medications Ordered Filled Start Stop Current Ordering Indication Dosage Frequency Signature Comments Components Source Medication Medication Date Date Medication? Clinician (SIG) Name Name Norma Yes 1{tbl} Take 1 [facility] min (B-12 5-01 [facility] by [facility]) 10:05: mouth of 59 daily. Medicin e alprazolam Yes .5mg Take 1 [facility] (XANAX) 0.5 5-01 Tablet by Col lege MG tablet 10:05: mouth of 59 nightly as Medicin needed for e Sleep. 2x daily estrogens, 0 Yes 1.25mg Take 1 [facility] juancho conjugated, 5-01 Tablet by Col [facility]ge (PREMARIN) 10:05: mouth of 1.25 MG 59 daily. Medicin tablet e montelukast 0 Yes 10mg Take 1 [facility] (SINGULAIR) 5- Tablet by Col lege 10 MG 10:05: mouth of tablet 59 daily. Medicin e omeprazole 0 Yes 40mg Take 1 [facility] (PRILOSEC) 5-01 capsule by Col lege 40 MG 10:05: mouth of capsule 59 daily. Medicin e MAGNESIUM 0 Yes 1{tbl} Take 1 [facility] or OR 5-01 Tablet by [place] 10:05: mouth of 59 daily. Medicin e acetaminoph 0 Yes 1000mg Take 2 Ba y[facility] en 5-01 Tablets by [place] (TYLENOL) 10:05: mouth as of 500 mg 59 needed for Medicin tablet Pain. e gabapentin 0 Yes 300mg Take 1 [facility] (NEURONTIN) 5-01 capsule by Co llege 300 MG 10:05: mouth 3 of capsule 59 times Medicin daily. 2x e daily oxybutynin 0 Yes 10mg Take 1 [facility] (DITROPAN-X 5-01 Tablet by Col lege L) 10 MG CR 10:05: mouth as of tablet 59 needed. Medicin e Budesonide- 0 Yes [id number] Inhale 1 [facility] Formoterol 5-01 inhalation Col lege Fumarate 00:00: s. by of 160-4.5 00 mouth two Medicin MCG/ACT times e AERO daily. nicotine Yes [id number] 1{patch Place 1 [facility] (NICODERM 5-01 } Patch onto Suad egrand CQ) 21 00:00: the skin of MG/24HR 00 every 24 Medicin patch hours. e Nicotine 0 Yes [id number] 1{each} Take 1 [facility] Polacrilex 5-01 Each by [place] e 4 MG GUM 00:00: mouth 4 of 00 times Medicin daily as e needed. SPIRIVA 0 Yes [id number] 18ug Inhale 1 [facility]idel HANDIHALER 5- 9106 capsule by Col lege 18 MCG 00:00: mouth of inhalation 00 daily. Medicin capsule e Cyanocobala Yes 1{tbl} Take 1 Ba y[facility] min (B-12 4-14 Tablet by [facility] OR) 11:44: mouth of 23 daily. Medicin e alprazolam Yes .5mg Take 0.5 [facility] juancho (XANAX) 0.5 4-14 mg by [place] MG tablet 11:44: mouth of 23 nightly as Medicin needed for e Sleep. 2x daily estrogens, 0 Yes 1.25mg Take 1.25 [facility] conjugated, 4-14 mg by [place] (PREMARIN) 11:44: mouth of 1.25 MG 23 daily. Medicin tablet e montelukast Yes 10mg Take 10 mg [facility] (SINGULAIR) 4-14 by mouth [facility] 10 MG 11:44: daily. of tablet 23 Medicin e omeprazole 0 Yes 40mg Take 40 mg [facility] (PRILOSEC) 4-14 by mouth [facility] 40 MG 11:44: daily. of capsule 23 Medicin e MAGNESIUM 2022-0 Yes 1{tbl} Take 1 [facility] or OR 4-14 Tablet by [place] 11:44: mouth of 23 daily. Medicin e acetaminoph 0 Yes 1000mg Take 1,000 Fidel en 4-14 mg by [place] (TYLENOL) 11:44: mouth as of 500 mg 23 needed for Medicin tablet Pain. e gabapentin 0 Yes 300mg Take 300 [facility] (NEURONTIN) 4-14 mg by College 300 MG 11:44: mouth 3 of capsule 23 times Medicin daily. 2x e daily oxybutynin 2023-0 Yes 10mg Take 10 mg [facility] (DITROPAN-X 4-14 by mouth [facility] L) 10 MG CR 11:44: as needed. of tablet 23 Medicin e ondansetron 2023-0 Yes 4mg Take 1 Univ ers 4 mg tablet 4-12 tablet by ity of 08:08: mouth [place] 43 every 8 Medical (eight) Branch hours as needed. ondansetron 2023-0 Yes 4mg Take 1 Univ ers 4 mg tablet 4-12 tablet by ity of 08:08: mouth [place] 43 every 8 Medical (eight) Branch hours as needed. conjugated 2023-0 Yes 1.25mg Take 1 Uni vers estrogens 4-11 tablet by ity o f 1.25 mg 08:22: mouth in [place] tablet 26 the Medical morning. Branch carvediloL 2023-0 Yes 25mg Take 1 Unive rs 25 mg 4-11 tablet by ity of tablet 08:22: mouth in [place] [address] the Medical morning. Branch candesartan 2023-0 Yes 32mg Take 1 Univ ers 32 mg 4-11 tablet by ity of tablet 08:22: mouth in [place] [address] the Medical morning. Branch conjugated 2023-0 Yes 1.25mg Take 1 Uni vers estrogens 4-11 tablet by ity o f 1.25 mg 08:22: mouth in [place] [facility] 26 the Medical morning. Branch carvediloL 2023-0 Yes 25mg Take 1 Unive rs 25 mg 4-11 tablet by ity of tablet 08:22: mouth in [place] [address] the Medical morning. Branch candesartan 2023-0 Yes 32mg Take 1 Univ ers 32 mg 4-11 tablet by ity of tablet 08:22: mouth in [place] [address] the Medical morning. Branch gabapentin 2023-0 Yes 300mg Take 1 Univ ers 300 mg 4-11 capsule by ity of capsule 08:20: mouth in [place] [address] the Medical morning Branch and 1 capsule at noon and 1 capsule in the evening. lovastatin 2023-0 Yes 10mg Take 1 Unive rs 10 mg 4-11 tablet by ity of tablet 08:20: mouth at [place] [address] bedtime. Medical Branch gabapentin 2023-0 Yes 300mg Take 1 Univ ers 300 mg 4-11 capsule by ity of capsule 08:20: mouth in [place] [address] the Medical morning Branch and 1 capsule at noon and 1 capsule in the evening. lovastatin 2023-0 Yes 10mg Take 1 Unive rs 10 mg 4-11 tablet by ity of tablet 08:20: mouth at [place] [address] bedtime. Medical Branch clopidogreL 2023-0 Yes 75mg Take 1 Univ ers 75 mg 4-11 tablet by ity of tablet 08:20: mouth in [place] [address] the Medical morning. Branch folic acid 2023-0 Yes 800ug Take 1 Univ ers 800 mcg 4-11 tablet by ity of tablet 08:20: mouth in [place] [address] the Medical morning. Branch furosemide 2023-0 Yes 20mg Take 1 Unive rs 20 mg 4-11 tablet by ity of tablet 08:20: mouth in [place] [address] the Medical morning Branch and 1 tablet in the evening. clopidogreL 2023-0 Yes 75mg Take 1 Univ ers 75 mg 4-11 tablet by ity of tablet 08:20: mouth in [place] [address] the Medical morning. Branch folic acid 2023-0 Yes 800ug Take 1 Univ ers 800 mcg 4-11 tablet by ity of tablet 08:20: mouth in [place] [address] the Medical morning. Branch furosemide 2023-0 Yes 20mg Take 1 Unive rs 20 mg 4-11 tablet by ity of tablet 08:20: mouth in [place] [address] the Medical morning Branch and 1 tablet in the evening. candesartan 2023-0 Yes [id number] TAKE 1 Fidel (ATACAND) 4-05 TABLET BY Colle ge 16 MG 00:00: MOUTH of tablet 00 DAILY Medicin e candesartan 3-0 Yes [id number] TAKE 1 [facility] (ATACAND) 4-05 TABLET BY Colle ge 16 MG 00:00: MOUTH of tablet 00 DAILY Medicin e ALPRAZolam 3-0 Yes .5mg Take 1 Unive rs 0.5 mg 4-05 tablet by ity of tablet 00:00: mouth at [place] [address] bedtime as Medical needed for Branch Anxiety. levothyroxi 2023-0 Yes 112ug Take 1 Uni vers ne 112 mcg 4-05 tablet by ity of tablet 00:00: mouth [place] [address] every Medical morning. Branch omeprazole 3-0 Yes 40mg Take 1 Unive rs 40 mg 4-05 capsule by ity of capsule 00:00: mouth in [place] [address] the Medical morning. Branch ALPRAZolam Yes .5mg Take 1 Unive rs 0.5 mg 4-05 tablet by ity of tablet 00:00: mouth at [place] [address] bedtime as Medical needed for Branch Anxiety. levothyroxi Yes 112ug Take 1 Uni vers ne 112 mcg 4-05 tablet by ity of tablet 00:00: mouth [place] [address] every Medical morning. Branch omeprazole Yes 40mg Take 1 Unive rs 40 mg 4-05 capsule by ity of capsule 00:00: mouth in [place] [address] the Medical morning. Branch SPIRIVA Yes 1{puff} Inhale 1 Uni vers RESPIMAT 4-03 Puff in ity of 2.5 00:00: the [place] mcg/actuati morning. Medi john on Mist Branch SPIRIVA Yes 1{puff} Inhale 1 Uni vers RESPIMAT 4-03 Puff in ity of 2.5 00:00: the [place] mcg/actuati morning. Medi john on Mist Branch Amikacin Yes Inhale the Hodgeman juancho Sulfate 3-28 contents College Liposome 00:00: of one of (ARIKAYCE) 00 vial Medicin 590 (590mg) e MG/8.4ML via Lamira SUSP device 1 time daily as directed. Amikacin Yes Inhale the Hodgeman juancho Sulfate 3-28 contents College Liposome 00:00: of one of (ARIKAYCE) 00 vial Medicin 590 (590mg) e MG/8.4ML via [facility]ira SUSP device 1 time daily as directed. Cabozantini 2022-0 Yes [id number] 20mg Take 20 mg Fiedl b S-Malate 3-07 by mouth Colle ge 20 MG TABS 00:00: daily. of 00 Medicin e Cabozantini 2022-0 Yes [id number] 20mg Take 20 mg [facility] b S-Malate 3-07 by mouth Colle ge 20 MG TABS 00:00: daily. of Medicin e Cyanocobala Yes 1{tbl} Take 1 Ba ylor min (B-12 3-03 Tablet by Colle ge OR) 10:04: mouth of 26 daily. Medicin e alprazolam 2023-0 Yes .5mg Take 0.5 [facility]geman juancho (XANAX) 0.5 3-03 mg by [place] MG tablet 10:04: mouth of 26 nightly as Medicin needed for e Sleep. 2x daily estrogens, 2022-0 Yes 1.25mg Take 1.25 Fidel conjugated, 3-03 mg by College (PREMARIN) 10:04: mouth of 1.25 MG 26 daily. Medicin tablet e montelukast 2022-0 Yes 10mg Take 10 mg [facility] (SINGULAIR) 3-03 by mouth [facility] 10 MG 10:04: daily. of tablet 26 Medicin e omeprazole 2022-0 Yes 40mg Take 40 mg [facility] (PRILOSEC) 3-03 by mouth Colle ge 40 MG 10:04: daily. of capsule 26 Medicin e MAGNESIUM 2022-0 Yes 1{tbl} Take 1 [facility] OR 3-03 Tablet by College 10:04: mouth of 26 daily. Medicin e acetaminoph 2022-0 Yes 1000mg Take 1,000 Fidel en 3-03 mg by [place] (TYLENOL) 10:04: mouth as of 500 mg 26 needed for Medicin tablet Pain. e gabapentin 0 Yes 300mg Take 300 [facility] (NEURONTIN) 3-03 mg by [place] 300 MG 10:04: mouth 3 of capsule 26 times Medicin daily. 2x e daily oxybutynin 0 Yes 10mg Take 10 mg [facility] (DITROPAN-X 3-03 by mouth Suad ege L) 10 MG CR 10:04: as needed. of tablet 26 Medicin e Cabozantini 0 Yes [id number] Take by Hodgeman juancho b S-Malate 3-03 mouth. College 20 MG TABS 10:04: Take of 26 2-20mg Medicin tablets by e mouth once daily. Indication s: Kidney Cell Carcinoma cyclobenzap 2022-0 Yes [id number] TAKE 1 [facility] rine 2-28 TABLET BY [place] (FLEXERIL) 00:00: MOUTH 3 of 5 MG tablet 00 TIMES Medicin DAILY e NEEDED FOR PAIN cyclobenzap 2022-0 Yes [id number] TAKE 1 [facility] rine 2-28 TABLET BY [place] (FLEXERIL) 00:00: MOUTH 3 of 5 MG tablet 00 TIMES Medicin DAILY e NEEDED FOR PAIN cyclobenzap 2022-0 Yes [id number] TAKE 1 Fidel rine 2-28 TABLET BY [place] (FLEXERIL) 00:00: MOUTH 3 of 5 MG tablet 00 TIMES Medicin DAILY e NEEDED FOR PAIN duloxetine 2022-0 Yes 60mg TAKE 1 [facility] (CYMBALTA) 2-21 CAPSULE BY Col lege 60 MG 00:00: MOUTH of capsule 00 DAILY. Medicin e duloxetine 2022-0 Yes 60mg TAKE 1 [facility] (CYMBALTA) 2-21 CAPSULE BY [facility] 60 MG 00:00: MOUTH of capsule 00 DAILY. Medicin e duloxetine 2022-0 Yes 60mg TAKE 1 [facility] (CYMBALTA) 2-21 CAPSULE BY [facility] 60 MG 00:00: MOUTH of capsule 00 DAILY. Medicin e busPIRone 2022-0 Yes 10mg Take 1 [facility] (BUSPAR) 10 2-02 Tablet by [facility] MG tablet 00:00: mouth two of 00 times Medicin daily. e busPIRone 2022-0 Yes 10mg Take 1 [facility] (BUSPAR) 10 2-02 Tablet by [facility] MG tablet 00:00: mouth two of 00 times Medicin daily. e busPIRone 2022-0 Yes 10mg Take 1 [facility] (BUSPAR) 10 2-02 Tablet by [facility] MG tablet 00:00: mouth two of 00 times Medicin daily. e montelukast 0 Yes [facility] 10 mg 1-28 ity of tablet 00:00: [address] montelukast 2022-0 Yes [facility] 10 mg 1-28 ity of tablet 00:00: [address] Eplerenone 2022-0 Yes 1{tbl} TAKE 1 [facility] 25 MG TABS 1-23 TABLET BY [facility] 00:00: MOUTH of 00 DAILY. Medicin e levothyroxi 2022-0 Yes 112ug Take 1 [facility] ne 1-23 Tablet by [place] (SYNTHROID) 00:00: mouth of 112 MCG 00 daily. Medicin tablet e Eplerenone 2022-0 Yes 1{tbl} TAKE 1 [facility] 25 MG TABS 1-23 TABLET BY [facility] 00:00: MOUTH of 00 DAILY. Medicin e levothyroxi 2022-0 Yes 112ug Take 1 [facility] ne 1-23 Tablet by [place] (SYNTHROID) 00:00: mouth of 112 MCG 00 daily. Medicin tablet e Eplerenone 2022-0 Yes 1{tbl} TAKE 1 [facility] 25 MG TABS 1-23 TABLET BY [facility] 00:00: MOUTH of 00 DAILY. Medicin e levothyroxi 2022-0 Yes 112ug Take 1 [facility] ne 1-23 Tablet by [place] (SYNTHROID) 00:00: mouth of 112 MCG 00 daily. Medicin tablet e Cyanocobala 0 Yes 1{tbl} Take 1 [facility] (B-12 1-20 Tablet by [facility] OR) 10:07: mouth of 14 daily. Medicin e alprazolam 0 Yes .5mg Take 0.5 [facility] (XANAX) 0.5 1-20 mg by [place] MG tablet 10:07: mouth of 14 nightly as Medicin needed for e Sleep. estrogens, 0 Yes 1.25mg Take 1.25 [facility] conjugated, 1-20 mg by [place] (PREMARIN) 10:07: mouth of 1.25 MG 14 daily. Medicin tablet e montelukast 0 Yes 10mg Take 10 mg [facility] (SINGULAIR) 1-20 by mouth [facility] 10 MG 10:07: daily. of tablet 14 Medicin e omeprazole 2022-0 Yes 40mg Take 40 mg [facility] (PRILOSEC) 1-20 by mouth [facility] ge 40 MG 10:07: daily. of capsule 14 Medicin e MAGNESIUM 2022-0 Yes 1{tbl} Take 1 [facility] OR 1-20 Tablet by [place] 10:07: mouth of 14 daily. Medicin e acetaminoph 0 Yes 1000mg Take 1,000 [facility] en 1-20 mg by [place] (TYLENOL) 10:07: mouth as of 500 mg 14 needed for Medicin tablet Pain. e gabapentin 2022-0 Yes 300mg Take 300 [facility] (NEURONTIN) 1-20 mg by [place] 300 MG 10:07: mouth 3 of capsule 14 times Medicin daily. e oxybutynin 2022-0 Yes 10mg Take 10 mg [facility] (DITROPAN-X 1-20 by mouth [facility] L) 10 MG CR 10:07: as needed. of tablet 14 Medicin e Cabozantini 2022-0 Yes 3783 Take by [facility] b S-[place] 1-20 mouth. [place] 20 MG TABS 10:07: Take of 14 2-20mg Medicin tablets by e mouth once daily. Indication s: Kidney Cell Carcinoma Cyanocobala 2022-0 Yes 1{tbl} Take 1 [facility] (B-12 1-12 Tablet by [facility] ge OR) 10:27: mouth of 18 daily. Medicin e alprazolam 2022-0 Yes .5mg Take 0.5 [facility] (XANAX) 0.5 1-12 mg by [place] MG tablet 10:27: mouth of 18 nightly as Medicin needed for e Sleep. estrogens, 2022-0 Yes 1.25mg Take 1.25 [facility] conjugated, 1-12 mg by [place] (PREMARIN) 10:27: mouth of 1.25 MG 18 daily. Medicin tablet e montelukast 0 Yes 10mg Take 10 mg [facility] (SINGULAIR) 1-12 by mouth [facility] 10 MG 10:27: daily. of tablet 18 Medicin e omeprazole 0 Yes 40mg Take 40 mg [facility] (PRILOSEC) 1-12 by mouth [facility] 40 MG 10:27: daily. of capsule 18 Medicin e MAGNESIUM 2022-0 Yes 1{tbl} Take 1 [facility] OR 1-12 Tablet by [place] 10:27: mouth of 18 daily. Medicin e acetaminoph 2022-0 Yes 1000mg Take 1,000 [facility] en 1-12 mg by [place] (TYLENOL) 10:27: mouth as of 500 mg 18 needed for Medicin tablet Pain. e gabapentin 2022-0 Yes 300mg Take 300 [facility] (NEURONTIN) 1-12 mg by [place] 300 MG 10:27: mouth 3 of capsule 18 times Medicin daily. e oxybutynin 2022-0 Yes 10mg Take 10 mg [facility] (DITROPAN-X 1-12 by mouth [facility] L) 10 MG CR 10:27: as needed. of tablet 18 Medicin e Cabozantini 2022-0 Yes 3783 Take by [facility] 1-12 mouth. [place] 20 MG TABS 10:27: Take of 18 2-20mg Medicin tablets by e mouth once daily. Indication s: Kidney Cell Carcinoma sodium 3-0 Yes [id number] 4mL Take 1 [facility] chloride, 1-12 Ampule by [facility] Inhalant, 00:00: nebulizati of (HYPER-TUTU) 00 on two Medici n 7 % times e nebulizer daily. solution sodium 3-0 Yes [id number] 4mL Take 1 [facility] chloride, 1-12 Ampule by [facility] Inhalant, 00:00: nebulizati of (HYPER-TUUT) 00 on two Medici n 7 % times e nebulizer daily. solution sodium 3-0 Yes [id number] 4mL Take 1 [facility] chloride, 1-12 Ampule by [facility] Inhalant, 00:00: nebulizati of (HYPER-TUTU) 00 on two Medici n 7 % times e nebulizer daily. solution sodium 2022-0 Yes [id number] 4mL Take 1 [facility] chloride, 1-12 Ampule by [facility] Inhalant, 00:00: nebulizati of (HYPER-TUTU) 00 on two Medici n 7 % times e nebulizer daily. solution sodium 2022-0 Yes [id number] 4mL Take 1 [facility] chloride, 1-12 Ampule by [facility] Inhalant, 00:00: nebulizati of (HYPER-TUTU) 00 on two Medici n 7 % times e nebulizer daily. solution candesartan 2021-04 Yes [id number] TAKE 1 [facility] (ATACAND) 2-29 TABLET BY [facility] 16 MG 00:00: MOUTH of tablet 00 DAILY. Medicin e candesartan 2021-04 Yes [id number] TAKE 1 [facility] (ATACAND) 2-29 TABLET BY [facility] 16 MG 00:00: MOUTH of tablet 00 DAILY. Medicin e candesartan 2021-04 Yes [id number] TAKE 1 [facility] (ATACAND) 2-29 TABLET BY [facility] 16 MG 00:00: MOUTH of tablet 00 DAILY. Medicin e gabapentin 2021-04 Yes 300mg Q.[id number] Take [address] [facility] (NEURONTIN) 05-12 [id number] mg by L [facility] 300 MG 10:54: 3D mouth 3 Medical capsule 00 (three) Center times daily. acetaminoph 2021-04 Yes 500mg Take [address] [facility] en 2-09 mg by [facility] (TYLENOL) 10:54: mouth Medical 500 MG 00 every 6 Center tablet (six) hours as needed for Pain . montelukast 2021-04 Yes 10mg QD Take [address] [facility] (SINGULAIR) 2-09 by mouth [facility] 10 mg 10:54: nightly. Medical tablet 00 [place] LANSOPRAZOL 2021-04 Yes QD Take by [facility] (PREVACID 2-09 [facility] ORAL) 10:54: daily . Medical 00 [place] verapamiL 2021-04 Yes 240mg QD Take [address] [facility] (VERELAN 2-09 mg by [facility] PM) 240 MG 10:54: mouth Medica l 24 hr 00 daily. [place] capsule candesartan 2021-04 Yes 32mg QD Take [address] [facility] (ATACAND) 2-09 by mouth [facility] 32 MG 10:54: daily. Medical tablet 00 [place] clopidogreL 2021-04 Yes 75mg QD Take [address] [facility] (PLAVIX) 75 2-09 by mouth [facility] mg tablet 10:54: daily. Medica l 00 [place] guanFACINE 2021-04 Yes 1mg QD Take [address] [facility] [address] [facility] (TENEX) 1 2-09 by mouth [facility] MG tablet 10:54: nightly. Medi john 00 [place] metoclopram 2021-04 Yes 10mg Take [address] [facility] michel HCl 2-09 by mouth 4 [facility] (REGLAN) 10 10:54: (four) Medi john MG tablet 00 times Center daily as needed for Nausea. oxybutynin 2021-04 Yes 10mg QD Take [address] [facility] (DITROPAN-X 2-09 by mouth [facility] L) 10 MG 24 10:54: daily. Medi john hr tablet 00 [place] potassium 2021-04 Yes 500mg QD Take [address] [facility] aminobenzoa 2-09 mg by [facility] ([place]) 10:54: mouth Medic al 500 mg Cap 00 daily. [place] budesonide- 2021-04 Yes 2{puff} Q.5D Inhale [address] [facility] formoteroL 2-09 puffs by [facility] (SYMBICORT) 10:54: mouth via M edical 80-4.5 00 inhaler 2 [place] mcg/actuati (two) on inhaler times daily. zinc 2021-04 Yes 50mg QD Take [address] [facility] gluconate 2-09 by mouth [facility] 50 mg 10:54: daily. Medical tablet 00 Center levothyroxi 2021-04 Yes 75ug Take [address] [facility] ne 2-09 mcg by [facility] (SYNTHROID, 10:54: mouth Medic al LEVOTHROID) 00 Every Center 75 MCG morning on tablet an empty stomach. DULoxetine 2021-04 Yes 30mg QD Take [address] (CYMBALTA) 2-09 by mouth [facility] 30 MG 10:54: daily. Medical capsule 00 Center omeprazole 2021-04 Yes 40mg QD Take [address] [facility] (PRILOSEC) 2-09 by mouth [facility] 40 MG 10:54: daily. Medical capsule 00 [place] ondansetron 2021-04 Yes 4mg Take [address] [facility] (ZOFRAN) 4 2-09 by mouth 2 [facility] MG tablet 10:54: (two) Medical 00 times Center daily as needed for Nausea . carvedilol 2021-04 Yes 25mg Take [address] [facility] (COREG) 25 2-09 by mouth 2 [facility] MG tablet 10:54: (two) Medical 00 times Center daily with breakfast and dinner. TIOTROPIUM 2021-04 Yes QD Inhale by [facility] BROMIDE 2-09 mouth via [facility] (SPIRIVA 10:54: inhaler Medica l WITH 00 daily . [place] HANDIHALER INHL) LACTOBACILL 2021-04 Yes Take by [facility] US 2-09 mouth. [facility] ACIDOPHILUS 10:54: Medica l (PROBIOTIC 00 Center ORAL) cholecalcif 2021-04 Yes 1000U QD Take 1,[address] [facility] miguel, 2-09 Units by [facility] vitamin D3, 10:54: mouth Medic al 1,000 unit 00 daily. [place] capsule folic acid 2021-04 Yes 400ug QD Take [address] [facility] (FOLVITE) 2-09 mcg by [facility] 800 MCG 10:54: mouth Medical tablet 00 daily. [place] CYANOCOBALA 2021-04 Yes 1000ug QD Take 1,[address] [facility] MIN, 2-09 mcg by [facility] VITAMIN 10:54: mouth Medical B-12, 00 daily . [place] (VITAMIN B-12 ORAL) ALPRAZolam 2021-04 Yes .5mg Take 0.[address] [facility] (XANAX) 0.5 2-09 mg by [facility] MG tablet 10:54: mouth Medical 00 every Center night as needed for Anxiety. estrogens, 2021-04 Yes 1.25mg QD Take 1.[address] [facility] conjugated, 2-09 mg by [facility] (PREMARIN) 10:54: mouth Medica l 1.25 MG 00 daily. Center tablet gabapentin 2021-04 Yes 300mg Q.[id number] Take [address] [facility] (NEURONTIN) 2-09 [id number] mg by [facility] 300 MG 10:54: 3D mouth 3 Medical capsule 00 (three) Center times daily. acetaminoph 2021-04 Yes 500mg Take [address] en 2-09 mg by [facility] (TYLENOL) 10:54: mouth Medical 500 MG 00 every 6 Center tablet (six) hours as needed for Pain . montelukast 2021-04 Yes 10mg QD Take [address] [facility] (SINGULAIR) 2-09 by mouth [facility] 10 mg 10:54: nightly. Medical tablet 00 [place] LANSOPRAZOL 2021-04 Yes QD Take by [facility] (PREVACID 2-09 mouth [facility] ORAL) 10:54: daily . Medical 00 Center verapamiL 2021-04 Yes 240mg QD Take [address] [facility] (VERELAN 2-09 mg by [facility] PM) 240 MG 10:54: mouth Medica l 24 hr 00 daily. Center capsule candesartan 2021-04 Yes 32mg QD Take [address] [facility] (ATACAND) 2-09 by mouth [facility] 32 MG 10:54: daily. Medical tablet 00 [place] clopidogreL 2021-04 Yes 75mg QD Take [address] [facility] (PLAVIX) 75 2-09 by mouth [facility] mg tablet 10:54: daily. Medica l 00 Center guanFACINE 2021-04 Yes 1mg QD Take [address] [facility] [address] [facility] (TENEX) 1 2-09 by mouth [facility] MG tablet 10:54: nightly. Medi john 00 Center metoclopram 2021-04 Yes 10mg Take [address] [facility] michel HCl 2-09 by mouth 4 [facility] (REGLAN) 10 10:54: (four) Medi john MG tablet 00 times Center daily as needed for Nausea. oxybutynin 2021-04 Yes 10mg QD Take [address] (DITROPAN-X 2-09 by mouth [facility] L) 10 MG 24 10:54: daily. Medi john hr tablet 00 [place] potassium 2021-04 Yes 500mg QD Take [address] [facility] aminobenzoa 2-09 mg by [facility] ([place]) 10:54: mouth Medic al 500 mg Cap 00 daily. [place] budesonide- 2021-04 Yes 2{puff} Q.5D Inhale [address] [facility] formoteroL 2-09 puffs by [facility] (SYMBICORT) 10:54: mouth via M edical 80-4.5 00 inhaler 2 [place] mcg/actuati (two) on inhaler times daily. zinc 2021-04 Yes 50mg QD Take [address] [facility] gluconate 2-09 by mouth [facility] 50 mg 10:54: daily. Medical tablet 00 Center levothyroxi 2021-04 Yes 75ug Take [address] [facility] ne 2-09 mcg by [facility] (SYNTHROID, 10:54: mouth Medic al LEVOTHROID) 00 Every Center 75 MCG morning on tablet an empty stomach. DULoxetine 2021-04 Yes 30mg QD Take [address] (CYMBALTA) 2-09 by mouth [facility] 30 MG 10:54: daily. Medical capsule 00 [place] omeprazole 2021-04 Yes 40mg QD Take [address] (PRILOSEC) 2-09 by mouth [facility] 40 MG 10:54: daily. Medical capsule 00 [place] ondansetron 2021-04 Yes 4mg Take [address] [facility] (ZOFRAN) 4 2-09 by mouth 2 [facility] MG tablet 10:54: (two) Medical 00 times Center daily as needed for Nausea . carvedilol 2021-04 Yes 25mg Take [address] (COREG) 25 2-09 by mouth 2 [facility] MG tablet 10:54: (two) Medical 00 times Center daily with breakfast and dinner. TIOTROPIUM 2021-04 Yes QD Inhale by [facility] BROMIDE 2-09 mouth via [facility] (SPIRIVA 10:54: inhaler Medica l WITH 00 daily . [place] HANDIHALER INHL) LACTOBACILL 2021-04 Yes Take by [facility] US 2-09 mouth. [facility] ACIDOPHILUS 10:54: Medica l (PROBIOTIC 00 Center ORAL) cholecalcif 2021-04 Yes 1000U QD Take 1,[address] [facility] miguel, 2-09 Units by [facility] vitamin D3, 10:54: mouth Medic al 1,000 unit 00 daily. Center capsule folic acid 2021-04 Yes 400ug QD Take [address] (FOLVITE) 2-09 mcg by [facility] 800 MCG 10:54: mouth Medical tablet 00 daily. [place] CYANOCOBALA 2021-04 Yes 1000ug QD Take 1,[address] [facility] MIN, 2-09 mcg by [facility] VITAMIN 10:54: mouth Medical B-12, 00 daily . Center (VITAMIN B-12 ORAL) ALPRAZolam 2021-04 Yes .5mg Take 0.[address] [facility] (XANAX) 0.5 2-09 mg by [facility] MG tablet 10:54: mouth Medical 00 every Center night as needed for Anxiety. estrogens, 2021-04 Yes 1.25mg QD Take 1.[address] [facility] conjugated, 2-09 mg by [facility] (PREMARIN) 10:54: mouth Medica l 1.25 MG 00 daily. Center tablet gabapentin 2021-04 Yes 300mg Q.[id number] Take [address] [facility] (NEURONTIN) 2-09 [id number] mg by [facility] 300 MG 10:54: 3D mouth 3 Medical capsule 00 (three) Center times daily. acetaminoph 2021-04 Yes 500mg Take [address] en 2-09 mg by [facility] (TYLENOL) 10:54: mouth Medical 500 MG 00 every 6 Center tablet (six) hours as needed for Pain . montelukast 2021-04 Yes 10mg QD Take [address] [facility] (SINGULAIR) 2-09 by mouth [facility] 10 mg 10:54: nightly. Medical tablet 00 [place] LANSOPRAZOL 2021-04 Yes QD Take by [facility] (PREVACID 2-09 [facility] ORAL) 10:54: daily . Medical 00 [place] verapamiL 2021-04 Yes 240mg QD Take [address] [facility] (VERELAN 2-09 mg by [facility] PM) 240 MG 10:54: mouth Medica l 24 hr 00 daily. [place] capsule candesartan 2021-04 Yes 32mg QD Take [address] [facility] (ATACAND) 2-09 by mouth [facility] 32 MG 10:54: daily. Medical tablet 00 [place] clopidogreL 2021-04 Yes 75mg QD Take [address] [facility] (PLAVIX) 75 2-09 by mouth [facility] mg tablet 10:54: daily. Medica l 00 [place] guanFACINE 2021-04 Yes 1mg QD Take [address] [facility] [address] [facility] (TENEX) 1 2-09 by mouth [facility] MG tablet 10:54: nightly. Medi john 00 Center metoclopram 2021-04 Yes 10mg Take [address] [facility] michel HCl 2-09 by mouth 4 [facility] (REGLAN) 10 10:54: (four) Medi john MG tablet 00 times Center daily as needed for Nausea. oxybutynin 2021-04 Yes 10mg QD Take [address] [facility] (DITROPAN-X 2-09 by mouth [facility] L) 10 MG 24 10:54: daily. Medi john hr tablet 00 [place] potassium 2021-04 Yes 500mg QD Take [address] [facility] [address] aminobenzoa 2-09 mg by [facility] ([place]) 10:54: mouth Medic al 500 mg Cap 00 daily. [place] budesonide- 2021-04 Yes 2{puff} Q.5D Inhale [address] [facility] formoteroL 2-09 puffs by [facility] (SYMBICORT) 10:54: mouth via M edFitOrbit 80-4.5 00 inhaler 2 Center mcg/actuati (two) on inhaler times daily. zinc 2021-04 Yes 50mg QD Take [address] [facility] gluconate 2-09 by mouth [facility] 50 mg 10:54: daily. Medical tablet 00 [place] levothyroxi 2021-04 Yes 75ug Take [address] [facility] ne 2-09 mcg by [facility] (SYNTHROID, 10:54: mouth Medic al LEVOTHROID) 00 Every Center 75 MCG morning on tablet an empty stomach. DULoxetine 2021-04 Yes 30mg QD Take [address] (CYMBALTA) 2-09 by mouth [facility] 30 MG 10:54: daily. Medical capsule 00 [place] omeprazole 2021-04 Yes 40mg QD Take [address] (PRILOSEC) 2-09 by mouth [facility] 40 MG 10:54: daily. Medical capsule 00 [place] ondansetron 2021-04 Yes 4mg Take [address] [facility] (ZOFRAN) 4 2-09 by mouth 2 [facility] MG tablet 10:54: (two) Medical 00 times Center daily as needed for Nausea . carvedilol 2022-1 Yes 25mg Take [address] [facility] (COREG) 25 2-09 by mouth 2 [facility] MG tablet 10:54: (two) Medical 00 times Center daily with breakfast and dinner. TIOTROPIUM 2021-04 Yes QD Inhale by [facility] BROMIDE 2-09 mouth via [facility] (SPIRIVA 10:54: inhaler Medica l WITH 00 daily . [place] HANDIHALER INHL) LACTOBACILL 2021-04 Yes Take by [facility] US 2-09 mouth. [facility] ACIDOPHILUS 10:54: Medica l (PROBIOTIC 00 Center ORAL) cholecalcif 2021-04 Yes 1000U QD Take 1,[address] [facility] miguel, 2-09 Units by [facility] vitamin D3, 10:54: mouth Medic al 1,000 unit 00 daily. Center capsule folic acid 2021-04 Yes 400ug QD Take [address] (FOLVITE) 2-09 mcg by [facility] 800 MCG 10:54: mouth Medical tablet 00 daily. [place] CYANOCOBALA 2021-04 Yes 1000ug QD Take 1,[address] [facility] MIN, 2-09 mcg by [facility] VITAMIN 10:54: mouth Medical B-12, 00 daily . Center (VITAMIN B-12 ORAL) ALPRAZolam 2021-04 Yes .5mg Take 0.[address] [facility] (XANAX) 0.5 2-09 mg by [facility] MG tablet 10:54: mouth Medical 00 every Center night as needed for Anxiety. estrogens, 2021-04 Yes 1.25mg QD Take 1.[address] [facility] conjugated, 2-09 mg by [facility] (PREMARIN) 10:54: mouth Medica l 1.25 MG 00 daily. Center tablet gabapentin 2021-04 Yes 300mg Q.[id number] Take [address] [facility] (NEURONTIN) 2-09 [id number] mg by [facility] 300 MG 10:54: 3D mouth 3 Medical capsule 00 (three) Center times daily. acetaminoph 2021-04 Yes 500mg Take [address] en 2-09 mg by [facility] (TYLENOL) 10:54: mouth Medical 500 MG 00 every 6 Center tablet (six) hours as needed for Pain . montelukast 2021-04 Yes 10mg QD Take [address] [facility] (SINGULAIR) 2-09 by mouth [facility] 10 mg 10:54: nightly. Medical tablet 00 Center LANSOPRAZOL 2021-04 Yes QD Take by [facility] (PREVACID 2-09 [facility] ORAL) 10:54: daily . Medical 00 [place] verapamiL 2021-04 Yes 240mg QD Take [address] [facility] (VERELAN 2-09 mg by [facility] PM) 240 MG 10:54: mouth Medica l 24 hr 00 daily. [place] capsule candesartan 2021-04 Yes 32mg QD Take [address] [facility] (ATACAND) 2-09 by mouth [facility] 32 MG 10:54: daily. Medical tablet 00 [place] clopidogreL 2021-04 Yes 75mg QD Take [address] [facility] (PLAVIX) 75 2-09 by mouth [facility] mg tablet 10:54: daily. Medica l 00 [place] guanFACINE 2021-04 Yes 1mg QD Take [address] [facility] [address] [facility] (TENEX) 1 2-09 by mouth [facility] MG tablet 10:54: nightly. Medi john 00 [place] metoclopram 2021-04 Yes 10mg Take [address] [facility] michel HCl 2-09 by mouth 4 [facility] (REGLAN) 10 10:54: (four) Medi john MG tablet 00 times Center daily as needed for Nausea. oxybutynin 2021-04 Yes 10mg QD Take [address] [facility] (DITROPAN-X 2-09 by mouth [facility] L) 10 MG 24 10:54: daily. Medi john hr tablet 00 [place] potassium 2021-04 Yes 500mg QD Take [address] [facility] [address] aminobenzoa 2-09 mg by [facility] ([place]) 10:54: mouth Medic al 500 mg Cap 00 daily. [place] budesonide- 2021-04 Yes 2{puff} Q.5D Inhale [address] [facility] formoteroL 2-09 puffs by [facility] (SYMBICORT) 10:54: mouth via M edical 80-4.5 00 inhaler 2 [place] mcg/actuati (two) on inhaler times daily. zinc 2021-04 Yes 50mg QD Take [address] [facility] gluconate 2-09 by mouth [facility] 50 mg 10:54: daily. Medical tablet 00 [place] levothyroxi 2021-04 Yes 75ug Take [address] [facility] ne 2-09 mcg by [facility] (SYNTHROID, 10:54: mouth Medic al LEVOTHROID) 00 Every Center 75 MCG morning on tablet an empty stomach. DULoxetine 2021-04 Yes 30mg QD Take [address] (CYMBALTA) 2-09 by mouth [facility] 30 MG 10:54: daily. Medical capsule 00 Center omeprazole 2021-04 Yes 40mg QD Take [address] (PRILOSEC) 2-09 by mouth [facility] 40 MG 10:54: daily. Medical capsule 00 Center ondansetron 2021-04 Yes 4mg Take [address] [facility] (ZOFRAN) 4 2-09 by mouth 2 [facility] MG tablet 10:54: (two) Medical 00 times Center daily as needed for Nausea . carvedilol 2021-04 Yes 25mg Take [address] [facility] (COREG) 25 2-09 by mouth 2 [facility] MG tablet 10:54: (two) Medical 00 times Center daily with breakfast and dinner. TIOTROPIUM 2021-04 Yes QD Inhale by [facility] BROMIDE 2-09 mouth via [facility] (SPIRIVA 10:54: inhaler Medica l WITH 00 daily . [place] HANDIHALER INHL) LACTOBACILL 2021-04 Yes Take by [facility] US 2-09 mouth. [facility] ACIDOPHILUS 10:54: Medica l (PROBIOTIC 00 Center ORAL) cholecalcif 2021-04 Yes 1000U QD Take 1,[address] [facility] miguel, 2-09 Units by [facility] vitamin D3, 10:54: mouth Medic al 1,000 unit 00 daily. [place] capsule folic acid 2021-04 Yes 400ug QD Take [address] (FOLVITE) 2-09 mcg by [facility] 800 MCG 10:54: mouth Medical tablet 00 daily. [place] CYANOCOBALA 2021-04 Yes 1000ug QD Take 1,[address] [facility] MIN, 2-09 mcg by [facility] VITAMIN 10:54: mouth Medical B-12, 00 daily . [place] (VITAMIN B-12 ORAL) ALPRAZolam 2021-04 Yes .5mg Take 0.[address] [facility] (XANAX) 0.5 2-09 mg by [facility] MG tablet 10:54: mouth Medical 00 every Center night as needed for Anxiety. estrogens, 2021-04 Yes 1.25mg QD Take 1.[address] [facility] conjugated, 2-09 mg by [facility] (PREMARIN) 10:54: mouth Medica l 1.25 MG 00 daily. [place] tablet gabapentin 2021-04 Yes 300mg Q.[id number] Take [address] [facility] (NEURONTIN) 2-09 [id number] mg by [facility] 300 MG 10:54: 3D mouth 3 Medical capsule 00 (three) Center times daily. acetaminoph 2021-04 Yes 500mg Take [address] en 2-09 mg by [facility] (TYLENOL) 10:54: mouth Medical 500 MG 00 every 6 Center tablet (six) hours as needed for Pain . montelukast 2021-04 Yes 10mg QD Take [address] [facility] (SINGULAIR) 2-09 by mouth [facility] 10 mg 10:54: nightly. Medical tablet 00 [place] LANSOPRAZOL 2021-04 Yes QD Take by [facility] (PREVACID 2-09 [facility] ORAL) 10:54: daily . Medical 00 [place] verapamiL 2021-04 Yes 240mg QD Take [address] [facility] (VERELAN 2-09 mg by [facility] PM) 240 MG 10:54: mouth Medica l 24 hr 00 daily. [place] capsule candesartan 2021-04 Yes 32mg QD Take [address] [facility] (ATACAND) 2-09 by mouth [facility] 32 MG 10:54: daily. Medical tablet 00 [place] clopidogreL 2021-04 Yes 75mg QD Take [address] [facility] (PLAVIX) 75 2-09 by mouth [facility] mg tablet 10:54: daily. Medica l 00 [place] guanFACINE 2021-04 Yes 1mg QD Take [address] [facility] [address] [facility] (TENEX) 1 2-09 by mouth [facility] MG tablet 10:54: nightly. Medi john 00 [place] metoclopram 2021-04 Yes 10mg Take [address] [facility] michel HCl 2-09 by mouth 4 [facility] (REGLAN) 10 10:54: (four) Medi john MG tablet 00 times Center daily as needed for Nausea. oxybutynin 2021-04 Yes 10mg QD Take [address] (DITROPAN-X 2-09 by mouth [facility] L) 10 MG 24 10:54: daily. Medi john hr tablet 00 [place] potassium 2021-04 Yes 500mg QD Take [address] [facility] [address] aminobenzoa 2-09 mg by [facility] ([place]) 10:54: mouth Medic al 500 mg Cap 00 daily. [place] budesonide- 2021-04 Yes 2{puff} Q.5D Inhale [address] [facility] formoteroL 2-09 puffs by [facility] (SYMBICORT) 10:54: mouth via M edical 80-4.5 00 inhaler 2 Center mcg/actuati (two) on inhaler times daily. zinc 2021-04 Yes 50mg QD Take [address] [facility] gluconate 2-09 by mouth [facility] 50 mg 10:54: daily. Medical tablet 00 Center levothyroxi 2021-04 Yes 75ug Take [address] [facility] ne 2-09 mcg by [facility] (SYNTHROID, 10:54: mouth Medic al LEVOTHROID) 00 Every Center 75 MCG morning on tablet an empty stomach. DULoxetine 2021-04 Yes 30mg QD Take [address] (CYMBALTA) 2-09 by mouth [facility] 30 MG 10:54: daily. Medical capsule 00 [place] omeprazole 2021-04 Yes 40mg QD Take [address] (PRILOSEC) 2-09 by mouth [facility] 40 MG 10:54: daily. Medical capsule 00 [place] ondansetron 2021-04 Yes 4mg Take [address] (ZOFRAN) 4 2-09 by mouth 2 [facility] MG tablet 10:54: (two) Medical 00 times Center daily as needed for Nausea . carvedilol 2021-04 Yes 25mg Take [address] (COREG) 25 2-09 by mouth 2 [facility] MG tablet 10:54: (two) Medical 00 times Center daily with breakfast and dinner. TIOTROPIUM 2021-04 Yes QD Inhale by [facility] BROMIDE 2-09 mouth via [facility] (SPIRIVA 10:54: inhaler Medica l WITH 00 daily . [place] HANDIHAL[facility] INHL) LACTOBACILL 2021-04 Yes Take by [facility]-09 [facility]. [facility] ACIDOPHILUS 10:54: [facility] (PROBIOTIC 00 Center ORAL) cholecalcif 2021-04 Yes 1000U QD Take 1,[address] [facility] miguel, 2-09 Units by [facility] vitamin D3, 10:54: mouth Medic al 1,000 unit 00 daily. [place] capsule folic acid 2021-04 Yes 400ug QD Take [address] (FOLVITE) 2-09 mcg by [facility] 800 MCG 10:54: mouth Medical tablet 00 daily. [place] omeprazole 2021-04 Yes 40mg QD Take [address] [facility] (PRILOSEC) 2-09 by [facility] 40 MG 10:54: daily. [facility] capsule 00 Center ondansetron 2021-04 Yes 4mg Take [address] [facility] (ZOFRAN) 4 2-09 by mouth 2 [facility] tablet 10:54: (two) Medical 00 times Center daily as needed for Nausea . carvedilol 2021-04 Yes 25mg Take [address] [facility] (COREG) 25 2-09 by mouth 2 [facility] tablet 10:54: (two) Medical 00 times Center daily with breakfast and dinner. TIOTROPIUM 2021-04 Yes QD Inhale by [facility] 2-09 [facility] (SPIRIVA 10:54: inhaler [facility]ica l WITH 00 daily . [place] HANDIHALER [facility]) LACTOBACILL 2021-04 Yes Take by [facility] US 2-09 [facility]. [facility] ACIDOPHILUS 10:54: Medica l (PROBIOTIC 00 Center ORAL) cholecalcif 2021-04 Yes 1000U QD Take 1,[address] [facility] miguel, 2-09 Units by [facility] vitamin D3, 10:54: mouth Medic al 1,000 unit 00 daily. [place] capsule folic acid 2021-04 Yes 400ug QD Take [address] [facility] (FOLVITE) 2-09 mcg by [facility] 800 MCG 10:54: mouth Medical tablet 00 daily. [place] CYANOCOBALA 2021-04 Yes 1000ug QD Take 1,[address] [facility] MIN, 2-09 mcg by [facility] VITAMIN 10:54: mouth Medical B-12, 00 daily . [place] (VITAMIN B-12 ORAL) ALPRAZolam 2021-04 Yes .5mg Take 0.[address] [facility] (XANAX) 0.5 2-09 mg by [facility] MG tablet 10:54: mouth Medical 00 every Center night as needed for Anxiety. estrogens, 2021-04 Yes 1.25mg QD Take 1.[address] [facility] conjugated, 2-09 mg by [facility] (PREMARIN) 10:54: mouth Medica l 1.25 MG 00 daily. Center tablet gabapentin 2021-04 Yes 300mg Q.[id number] Take [address] [facility] (NEURONTIN) 2-09 [id number] mg by [facility] 300 MG 10:54: 3D mouth 3 Medical capsule 00 (three) Center times daily. acetaminoph 2021-04 Yes 500mg Take [address] en 2-09 mg by [facility] (TYLENOL) 10:54: mouth Medical 500 MG 00 every 6 Center tablet (six) hours as needed for Pain . montelukast 2021-04 Yes 10mg QD Take [address] [facility] (SINGULAIR) 2-09 by mouth [facility] 10 mg 10:54: nightly. Medical tablet 00 [place] LANSOPRAZOL 2021-04 Yes QD Take by [facility] E (PREVACID 2-09 [facility] ORAL) 10:54: daily . Medical 00 [place] verapamiL 2021-04 Yes 240mg QD Take [address] [facility] (VERELAN 2-09 mg by [facility] PM) 240 MG 10:54: mouth Medica l 24 hr 00 daily. [place] capsule candesartan 2021-04 Yes 32mg QD Take [address] [facility] (ATACAND) 2-09 by mouth [facility] 32 MG 10:54: daily. Medical tablet 00 [place] clopidogreL 2021-04 Yes 75mg QD Take [address] [facility] (PLAVIX) 75 2-09 by mouth [facility] mg tablet 10:54: daily. Medica l 00 [place] guanFACINE 2021-04 Yes 1mg QD Take [address] [facility] (TENEX) 1 2-09 by mouth [facility] MG tablet 10:54: nightly. Medi john 00 [place] metoclopram 2021-04 Yes 10mg Take [address] [facility] michel HCl 2-09 by mouth 4 [facility] (REGLAN) 10 10:54: (four) Medi john MG tablet 00 times Center daily as needed for Nausea. oxybutynin 2021-04 Yes 10mg QD Take [address] [facility] (DITROPAN-X 2-09 by mouth [facility] L) 10 MG 24 10:54: daily. Medi john hr tablet 00 [place] potassium 2021-04 Yes 500mg QD Take [address] [facility] aminobenzoa 2-09 mg by [facility] ([place]) 10:54: mouth Medic al 500 mg Cap 00 daily. [place] budesonide- 2021-04 Yes 2{puff} Q.5D Inhale [address] [facility] formoteroL 2-09 puffs by [facility] (SYMBICORT) 10:54: mouth via M edical 80-4.5 00 inhaler 2 [place] mcg/actuati (two) on inhaler times daily. zinc 2021-04 Yes 50mg QD Take [address] [facility] gluconate 2-09 by mouth [facility] 50 mg 10:54: daily. Medical tablet 00 Center levothyroxi 2021-04 Yes 75ug Take [address] [facility] ne 2-09 mcg by [facility] (SYNTHROID, 10:54: mouth Medic al LEVOTHROID) 00 Every Center 75 MCG morning on tablet an empty stomach. DULoxetine 2021-04 Yes 30mg QD Take [address] (CYMBALTA) 2-09 by mouth [facility] 30 MG 10:54: daily. Medical capsule 00 [place] CYANOCOBALA 2021-04 Yes 1000ug QD Take 1,[address] [facility] MIN, 2-09 mcg by [facility] VITAMIN 10:54: mouth Medical B-12, 00 daily . Center (VITAMIN B-12 ORAL) ALPRAZolam 2021-04 Yes .5mg Take 0.[address] [facility] (XANAX) 0.5 2-09 mg by [facility] MG tablet 10:54: mouth Medical 00 every Center night as needed for Anxiety. estrogens, 2021-04 Yes 1.25mg QD Take 1.[address] [facility] conjugated, 2-09 mg by [facility] (PREMARIN) 10:54: mouth Medica l 1.25 MG 00 daily. Center tablet gabapentin 2021-04 Yes 300mg Q.[id number] Take [address] [facility] (NEURONTIN) 2-09 [id number] mg by [facility] 300 MG 10:54: 3D mouth 3 Medical capsule 00 (three) Center times daily. acetaminoph 2021-04 Yes 500mg Take [address] en 2-09 mg by [facility] (TYLENOL) 10:54: mouth Medical 500 MG 00 every 6 Center tablet (six) hours as needed for Pain . montelukast 2021-04 Yes 10mg QD Take [address] [facility] (SINGULAIR) 2-09 by mouth [facility] 10 mg 10:54: nightly. Medical tablet 00 [place] LANSOPRAZOL 2021-04 Yes QD Take by [facility] E (PREVACID 2-09 [facility] ORAL) 10:54: daily . Medical 00 Center verapamiL 2021-04 Yes 240mg QD Take [address] [facility] (VERELAN 2-09 mg by [facility] PM) 240 MG 10:54: mouth Medica l 24 hr 00 daily. Center capsule candesartan 2021-04 Yes 32mg QD Take [address] [facility] (ATACAND) 2-09 by mouth [facility] 32 MG 10:54: daily. Medical tablet 00 [place] clopidogreL 2021-04 Yes 75mg QD Take [address] [facility] (PLAVIX) 75 2-09 by mouth [facility] mg tablet 10:54: daily. Medica l 00 [place] guanFACINE 2021-04 Yes 1mg QD Take [address] [facility] [address] [facility] (TENEX) 1 2-09 by mouth [facility] MG tablet 10:54: nightly. Medi john 00 Center metoclopram 2021-04 Yes 10mg Take [address] [facility] michel HCl 2-09 by mouth 4 [facility] (REGLAN) 10 10:54: (four) Medi john MG tablet 00 times Center daily as needed for Nausea. oxybutynin 2021-04 Yes 10mg QD Take [address] (DITROPAN-X 2-09 by mouth [facility] L) 10 MG 24 10:54: daily. Medi john hr tablet 00 [place] potassium 2021-04 Yes 500mg QD Take [address] [address] aminobenzoa 2-09 mg by [facility] ([place]) 10:54: mouth Medic al 500 mg Cap 00 daily. [place] budesonide- 2021-04 Yes 2{puff} Q.5D Inhale [address] [facility] formoteroL 2-09 puffs by [facility] (SYMBICORT) 10:54: mouth via M edical 80-4.5 00 inhaler 2 Center mcg/actuati (two) on inhaler times daily. zinc 2021-04 Yes 50mg QD Take [address] [facility] gluconate 2-09 by mouth [facility] 50 mg 10:54: daily. Medical tablet 00 [place] levothyroxi 2021-04 Yes 75ug Take [address] [facility] ne 2-09 mcg by [facility] (SYNTHROID, 10:54: mouth Medic al LEVOTHROID) 00 Every Center 75 MCG morning on tablet an empty stomach. DULoxetine 2021-04 Yes 30mg QD Take [address] (CYMBALTA) 2-09 by mouth [facility] 30 MG 10:54: daily. Medical capsule 00 [place] omeprazole 2021-04 Yes 40mg QD Take [address] (PRILOSEC) 2-09 by mouth [facility] 40 MG 10:54: daily. Medical capsule 00 [place] ondansetron 2021-04 Yes 4mg Take [address] [facility] (ZOFRAN) 4 2-09 by mouth 2 [facility] MG tablet 10:54: (two) Medical 00 times Center daily as needed for Nausea . carvedilol 2021-04 Yes 25mg Take [address] [facility] (COREG) 25 2-09 by mouth 2 [facility] MG tablet 10:54: (two) Medical 00 times Center daily with breakfast and dinner. TIOTROPIUM 2021-04 Yes QD Inhale by [facility] BROMIDE 2-09 mouth via [facility] (SPIRIVA 10:54: inhaler Medica l WITH 00 daily . [place] HANDIHALER INHL) LACTOBACILL 2021-04 Yes Take by [facility] US 2-09 [facility]. [facility] ACIDOPHILUS 10:54: Medica l (PROBIOTIC 00 Center ORAL) cholecalcif 2021-04 Yes 1000U QD Take 1,[address] [facility] miguel, 2-09 Units by [facility] vitamin D3, 10:54: mouth Medic al 1,000 unit 00 daily. [place] capsule folic acid 2021-04 Yes 400ug QD Take [address] [facility] (FOLVITE) 2-09 mcg by [facility] 800 MCG 10:54: mouth Medical tablet 00 daily. [place] CYANOCOBALA 2021-04 Yes 1000ug QD Take 1,[address] [facility] MIN, 2-09 mcg by [facility] VITAMIN 10:54: mouth Medical B-12, 00 daily . [place] (VITAMIN B-12 ORAL) ALPRAZolam 2021-04 Yes .5mg Take 0.[address] [facility] (XANAX) 0.5 2-09 mg by [facility] MG tablet 10:54: mouth Medical 00 every Center night as needed for Anxiety. estrogens, 2021-04 Yes 1.25mg QD Take 1.[address] [facility] conjugated, 2-09 mg by [facility] (PREMARIN) 10:54: mouth Medica l 1.25 MG 00 daily. [place] tablet gabapentin 2021-04 Yes 300mg Q.[id number] Take [address] [facility] (NEURONTIN) 2-09 [id number] mg by [facility] 300 MG 10:54: 3D mouth 3 Medical capsule 00 (three) Center times daily. acetaminoph 2021-04 Yes 500mg Take [address] en 2-09 mg by [facility] (TYLENOL) 10:54: mouth Medical 500 MG 00 every 6 Center tablet (six) hours as needed for Pain . montelukast 2021-04 Yes 10mg QD Take [address] [facility] (SINGULAIR) 2-09 by mouth [facility] 10 mg 10:54: nightly. Medical tablet 00 [place] LANSOPRAZOL 2021-04 Yes QD Take by [facility] E (PREVACID 2-09 mouth [facility] ORAL) 10:54: daily . Medical 00 [place] verapamiL 2021-04 Yes 240mg QD Take [address] [facility] (VERELAN 2-09 mg by [facility] PM) 240 MG 10:54: mouth Medica l 24 hr 00 daily. [place] capsule candesartan 2021-04 Yes 32mg QD Take [address] [facility] (ATACAND) 2-09 by mouth [facility] 32 MG 10:54: daily. Medical tablet 00 [place] clopidogreL 2021-04 Yes 75mg QD Take [address] [facility] (PLAVIX) 75 2-09 by mouth [facility] mg tablet 10:54: daily. Medica l 00 [place] guanFACINE 2021-04 Yes 1mg QD Take [address] [facility] [address] [facility] (TENEX) 1 2-09 by mouth [facility] MG tablet 10:54: nightly. Medi john 00 [place] metoclopram 2021-04 Yes 10mg Take [address] [facility] michel HCl 2-09 by mouth 4 [facility] (REGLAN) 10 10:54: (four) Medi john MG tablet 00 times Center daily as needed for Nausea. oxybutynin 2021-04 Yes 10mg QD Take [address] (DITROPAN-X 2-09 by mouth [facility] L) 10 MG 24 10:54: daily. Medi john hr tablet 00 [place] potassium 2021-04 Yes 500mg QD Take [address] aminobenzoa 2-09 mg by [facility] ([place]) 10:54: mouth Medic al 500 mg Cap 00 daily. [place] budesonide- 2021-04 Yes 2{puff} Q.5D Inhale [address] [facility] formoteroL 2-09 puffs by [facility] (SYMBICORT) 10:54: mouth via M edical 80-4.5 00 inhaler 2 [place] mcg/actuati (two) on inhaler times daily. zinc 2021-04 Yes 50mg QD Take [address] [facility] gluconate 2-09 by mouth [facility] 50 mg 10:54: daily. Medical tablet 00 [place] levothyroxi 2021-04 Yes 75ug Take [address] [facility] ne 2-09 mcg by [facility] (SYNTHROID, 10:54: mouth Medic al LEVOTHROID) 00 Every Center 75 MCG morning on tablet an empty stomach. DULoxetine 2021-04 Yes 30mg QD Take [address] (CYMBALTA) 2-09 by mouth [facility] 30 MG 10:54: daily. Medical capsule 00 Center omeprazole 2021-04 Yes 40mg QD Take [address] (PRILOSEC) 2-09 by mouth [facility] 40 MG 10:54: daily. Medical capsule 00 Center ondansetron 2021-04 Yes 4mg Take [address] [facility] (ZOFRAN) 4 2-09 by mouth 2 [facility] MG tablet 10:54: (two) Medical 00 times Center daily as needed for Nausea . carvedilol 2021-04 Yes 25mg Take [address] [facility] (COREG) 25 2-09 by mouth 2 [facility] MG tablet 10:54: (two) Medical 00 times Center daily with breakfast and dinner. TIOTROPIUM 2021-04 Yes QD Inhale by [facility] BROMIDE 2-09 mouth via [facility] (SPIRIVA 10:54: inhaler Medica l WITH 00 daily . [place] HANDIHALER IN[facility]) LACTOBACILL 2021-04 Yes Take by [facility] US 2-09 mouth. [facility] ACIDOPHILUS 10:54: Medica l (PROBIOTIC 00 Center ORAL) cholecalcif 2021-04 Yes 1000U QD Take 1,[address] [facility] miguel, 2-09 Units by [facility] vitamin D3, 10:54: mouth Medic al 1,000 unit 00 daily. [place] capsule folic acid 2021-04 Yes 400ug QD Take [address] (FOLVITE) 2-09 mcg by [facility] 800 MCG 10:54: mouth Medical tablet 00 daily. [place] CYANOCOBALA 2021-04 Yes 1000ug QD Take 1,[address] [facility] MIN, 2-09 mcg by [facility] VITAMIN 10:54: mouth Medical B-12, 00 daily . [place] (VITAMIN B-12 ORAL) ALPRAZolam 2021-04 Yes .5mg Take 0.[address] [facility] (XANAX) 0.5 2-09 mg by [facility] MG tablet 10:54: mouth Medical 00 every Center night as needed for Anxiety. estrogens, 2021-04 Yes 1.25mg QD Take 1.[address] [facility] conjugated, 2-09 mg by [facility] (PREMARIN) 10:54: mouth Medica l 1.25 MG 00 daily. Center tablet Cyanocobala 2021-04 Yes 1{tbl} Take 1 [facility] (B-12 2-09 Tablet by [facility] ge OR) 09:19: mouth of 50 daily. Medicin e alprazolam 2021-04 Yes .5mg Take 0.5 [facility] (XANAX) 0.5 2-09 mg by [place] MG tablet 09:19: mouth of 50 nightly as Medicin needed for e Sleep. estrogens, 2021-04 Yes 1.25mg Take 1.25 [facility] conjugated, 2-09 mg by [place] (PREMARIN) 09:19: mouth of 1.25 MG 50 daily. Medicin tablet e montelukast 2021-04 Yes 10mg Take 10 mg [facility] (SINGULAIR) 2-09 by mouth [facility] 10 MG 09:19: daily. of tablet 50 Medicin e omeprazole 2021-04 Yes 40mg Take 40 mg [facility] (PRILOSEC) 2-09 by mouth [facility] ge 40 MG 09:19: daily. of capsule 50 Medicin e MAGNESIUM 2021-04 Yes 1{tbl} Take 1 [facility] OR 2-09 Tablet by [place] 09:19: mouth of 50 daily. Medicin e acetaminoph 2021-04 Yes 1000mg Take 1,000 [facility] en 2-09 mg by [place] (TYLENOL) 09:19: mouth as of 500 mg 50 needed for Medicin tablet Pain. e gabapentin 2021-04 Yes 300mg Take 300 [facility] (NEURONTIN) 2-09 mg by [place] 300 MG 09:19: mouth 3 of capsule 50 times Medicin daily. e oxybutynin 2021-04 Yes 10mg Take 10 mg [facility] (DITROPAN-X 2-09 by mouth [facility] L) 10 MG CR 09:19: as needed. of tablet 50 Medicin e Cabozantini 2021-04 Yes [id number] Take by [facility] b [facility]-[place] 2-09 mouth. [facility] 20 MG TABS 09:19: Take of 50 2-20mg Medicin tablets by e mouth once daily. Indication s: Kidney Cell Carcinoma Cyanocobala 2021-04 Yes 1{tbl} Take 1 [facility] (B-12 2-09 Tablet by [facility] ge [place]) 09:19: mouth of 50 daily. Medicin e alprazolam 2021-04 Yes .5mg Take 0.5 [facility] (XANAX) 0.5 2-09 mg by [place] MG tablet 09:19: mouth of 50 nightly as Medicin needed for e Sleep. estrogens, 2021-04 Yes 1.25mg Take 1.25 [facility] conjugated, 2-09 mg by [place] (PREMARIN) 09:19: mouth of 1.25 MG 50 daily. Medicin tablet e montelukast 2021-04 Yes 10mg Take 10 mg [facility] (SINGULAIR) 2-09 by mouth [facility] ege 10 MG 09:19: daily. of tablet 50 Medicin e omeprazole 2021-04 Yes 40mg Take 40 mg [facility] (PRILOSEC) 2-09 by mouth [facility] ge 40 MG 09:19: daily. of capsule 50 Medicin e MAGNESIUM 2021-04 Yes 1{tbl} Take 1 [facility] [place] 2-09 Tablet by [facility] 09:19: mouth of 50 daily. Medicin e acetaminoph 2021-04 Yes 1000mg Take 1,000 [facility] en 2-09 mg by [place] (TYLENOL) 09:19: mouth as of 500 mg 50 needed for Medicin tablet Pain. e gabapentin 2021-04 Yes 300mg Take 300 [facility] (NEURONTIN) 2-09 mg by [place] 300 MG 09:19: mouth 3 of capsule 50 times Medicin daily. e oxybutynin 2021-04 Yes 10mg Take 10 mg [facility] (DITROPAN-X 2-09 by mouth [facility] ege L) 10 MG CR 09:19: as needed. of tablet 50 Medicin e Cabozantini 2021-04 Yes 3783 Take by [facility] 2-09 mouth. [facility] 20 MG TABS 09:19: Take of 50 2-20mg Medicin tablets by e mouth once daily. Indication s: Kidney Cell Carcinoma omeprazole 2021-04 Yes 40mg QD Take [address] [facility] (PRILOSEC) 1-05 by mouth [facility] 40 MG 13:31: daily. Medical capsule 19 Center ondansetron 2021-04 Yes 4mg Take [address] (ZOFRAN) 4 1-05 by mouth 2 [facility] MG tablet 13:31: (two) Medical 19 times Center daily as needed for Nausea . carvedilol 2021-04 Yes 25mg Take [address] [facility] (COREG) 25 1-05 by mouth 2 [facility] MG tablet 13:31: (two) Medical 19 times Center daily with breakfast and dinner. TIOTROPIUM 2021-04 Yes QD Inhale by [facility] BROMIDE 1-05 mouth via [facility] (SPIRIVA 13:31: inhaler Medica l WITH 19 daily . [place] HANDIHALER INHL) LACTOBACILL 2021-04 Yes Take by [facility] US 1-05 mouth. [facility] ACIDOPHILUS 13:31: Medica l (PROBIOTIC 19 Center ORAL) cholecalcif 2021-04 Yes 1000U QD Take 1,[address] [facility] miguel, 1-05 Units by [facility] vitamin D3, 13:31: mouth Medic al 1,000 unit 19 daily. [place] capsule folic acid 2021-04 Yes 400ug QD Take [address] (FOLVITE) 1-05 mcg by [facility] 800 MCG 13:31: mouth Medical tablet 19 daily. [place] CYANOCOBALA 2021-04 Yes 1000ug QD Take 1,[address] [facility] MIN, 1-05 mcg by [facility] VITAMIN 13:31: mouth Medical B-12, 19 daily . [place] (VITAMIN B-12 ORAL) ALPRAZolam 2021-04 Yes .5mg Take 0.[address] [facility] (XANAX) 0.5 1-05 mg by [facility] MG tablet 13:31: mouth Medical 19 every Center night as needed for Anxiety. estrogens, 2021-04 Yes 1.25mg QD Take 1.[address] [facility] conjugated, 1-05 mg by [facility] (PREMARIN) 13:31: mouth Medica l 1.25 MG 19 daily. [place] tablet gabapentin 2021-04 Yes 300mg Q.[id number] Take [address] [facility] (NEURONTIN) 1-05 [id number] mg by [facility] 300 MG 13:31: 3D mouth 3 Medical capsule 19 (three) Center times daily. acetaminoph 2021-04 Yes 500mg Take [address] en 1-05 mg by [facility] (TYLENOL) 13:31: mouth Medical 500 MG 19 every 6 Center tablet (six) hours as needed for Pain . montelukast 2021-04 Yes 10mg QD Take [address] [facility] (SINGULAIR) 1-05 by mouth [facility] 10 mg 13:31: nightly. Medical tablet 19 [place] LANSOPRAZOL 2021-04 Yes QD Take by [facility] E (PREVACID 1-05 mouth [facility] ORAL) 13:31: daily . Medical 19 [place] verapamiL 2021-04 Yes 240mg QD Take [address] [facility] (VERELAN 1-05 mg by [facility] PM) 240 MG 13:31: mouth Medica l 24 hr 19 daily. [place] capsule candesartan 2021-04 Yes 32mg QD Take [address] [facility] (ATACAND) 1-05 by mouth [facility] 32 MG 13:31: daily. Medical tablet 19 [place] clopidogreL 2021-04 Yes 75mg QD Take [address] [facility] (PLAVIX) 75 1-05 by mouth [facility] mg tablet 13:31: daily. Medica l 19 [place] guanFACINE 2021-04 Yes 1mg QD Take [address] [facility] [address] [facility] (TENEX) 1 1-05 by mouth [facility] MG tablet 13:31: nightly. Medi john 19 [place] metoclopram 2021-04 Yes 10mg Take [address] [facility] michel HCl 1-05 by mouth 4 [facility] (REGLAN) 10 13:31: (four) [facility]i john MG tablet 19 times Center daily as needed for Nausea. oxybutynin 2021-04 Yes 10mg QD Take [address] (DITROPAN-X 1-05 by mouth [facility] L) 10 MG 24 13:31: daily. Medi john hr tablet 19 [place] potassium 2021-04 Yes 500mg QD Take [address] aminobenzoa 1-05 mg by [facility] te ([place]) 13:31: mouth Medic al 500 mg Cap 19 daily. [place] budesonide- 2021-04 Yes 2{puff} Q.5D Inhale [address] [facility] formoteroL 1-05 puffs by [facility] (SYMBICORT) 13:31: mouth via M edical 80-4.5 19 inhaler 2 [place] mcg/actuati (two) on inhaler times daily. zinc 2021-04 Yes 50mg QD Take [address] [facility] gluconate 1-05 by mouth [facility] 50 mg 13:31: daily. Medical tablet 19 [place] levothyroxi 2021-04 Yes 75ug Take [address] [facility] ne 1-05 mcg by [facility] (SYNTHROID, 13:31: mouth Medic al LEVOTHROID) 19 Every Center 75 MCG morning on tablet an empty stomach. DULoxetine 2021-04 Yes 30mg QD Take [address] (CYMBALTA) 1-05 by mouth [facility] 30 MG 13:31: daily. Medical capsule 19 [place] omeprazole 2021-04 Yes 40mg QD Take [address] (PRILOSEC) 1-05 by mouth [facility] 40 MG 13:31: daily. Medical capsule 19 [place] ondansetron 2021-04 Yes 4mg Take [address] (ZOFRAN) 4 1-05 by mouth 2 [facility] MG tablet 13:31: (two) Medical 19 times Center daily as needed for Nausea . carvedilol 2021-04 Yes 25mg Take [address] (COREG) 25 1-05 by mouth 2 [facility] MG tablet 13:31: (two) Medical 19 times Center daily with breakfast and dinner. TIOTROPIUM 2021-04 Yes QD Inhale by [facility] BROMIDE 1-05 mouth via [facility] (SPIRIVA 13:31: inhaler Medica l WITH 19 daily . [place] HANDIHALER INHL) LACTOBACILL 2021-04 Yes Take by [facility] US 1-05 mouth. [facility] ACIDOPHILUS 13:31: Medica l (PROBIOTIC 19 Center ORAL) cholecalcif 2021-04 Yes 1000U QD Take 1,[address] [facility] miguel, 1-05 Units by [facility] vitamin D3, 13:31: mouth Medic al 1,000 unit 19 daily. [place] capsule folic acid 2021-04 Yes 400ug QD Take [address] (FOLVITE) 1-05 mcg by [facility] 800 MCG 13:31: mouth Medical tablet 19 daily. [place] CYANOCOBALA 2021-04 Yes 1000ug QD Take 1,[address] [facility] MIN, 1-05 mcg by [facility] VITAMIN 13:31: mouth Medical B-12, 19 daily . [place] (VITAMIN B-12 ORAL) ALPRAZolam 2021-04 Yes .5mg Take 0.[address] [facility] (XANAX) 0.5 1-05 mg by [facility] MG tablet 13:31: mouth Medical 19 every Center night as needed for Anxiety. estrogens, 2021-04 Yes 1.25mg QD Take 1.[address] conjugated, 1-05 mg by [facility] (PREMARIN) 13:31: mouth Medica l 1.25 MG 19 daily. Center tablet gabapentin 2021-04 Yes 300mg Q.[id number] Take [address] [facility] (NEURONTIN) 1-05 [id number] mg by [facility] 300 MG 13:31: 3D mouth 3 Medical capsule 19 (three) Center times daily. acetaminoph 2021-04 Yes 500mg Take [address] en 1-05 mg by [facility] (TYLENOL) 13:31: mouth Medical 500 MG 19 every 6 Center tablet (six) hours as needed for Pain . montelukast 2021-04 Yes 10mg QD Take [address] [facility] (SINGULAIR) 1-05 by mouth [facility] 10 mg 13:31: nightly. Medical tablet 19 [place] LANSOPRAZOL 2021-04 Yes QD Take by [facility] E (PREVACID 1-05 mouth [facility] ORAL) 13:31: daily . Medical 19 Center verapamiL 2021-04 Yes 240mg QD Take [address] [facility] (VERELAN 1-05 mg by [facility] PM) 240 MG 13:31: mouth Medica l 24 hr 19 daily. Center capsule candesartan 2021-04 Yes 32mg QD Take [address] [facility] (ATACAND) 1-05 by mouth [facility] 32 MG 13:31: daily. Medical tablet 19 [place] clopidogreL 2021-04 Yes 75mg QD Take [address] [facility] (PLAVIX) 75 1-05 by mouth [facility] mg tablet 13:31: daily. Medica l 19 Center guanFACINE 2021-04 Yes 1mg QD Take [address] [facility] [address] [facility] (TENEX) 1 1-05 by mouth [facility] MG tablet 13:31: nightly. Medi john 19 Center metoclopram 2021-04 Yes 10mg Take [address] [facility] michel HCl 1-05 by mouth 4 [facility] (REGLAN) 10 13:31: (four) Medi john MG tablet 19 times Center daily as needed for Nausea. oxybutynin 2021-04 Yes 10mg QD Take [address] (DITROPAN-X 1-05 by mouth [facility] L) 10 MG 24 13:31: daily. Medi john hr tablet 19 Center potassium 2021-04 Yes 500mg QD Take [address] aminobenzoa 1-05 mg by [facility] ([place]) 13:31: mouth Medic al 500 mg Cap 19 daily. [place] budesonide- 2021-04 Yes 2{puff} Q.5D Inhale [address] [facility] formoteroL 1-05 puffs by [facility] (SYMBICORT) 13:31: mouth via M edical 80-4.5 19 inhaler 2 Center mcg/actuati (two) on inhaler times daily. zinc 2021-04 Yes 50mg QD Take [address] [facility] gluconate 1-05 by mouth [facility] 50 mg 13:31: daily. Medical tablet 19 [place] levothyroxi 2021-04 Yes 75ug Take [address] [facility] ne 1-05 mcg by [facility] (SYNTHROID, 13:31: mouth Medic al LEVOTHROID) 19 Every Center 75 MCG morning on tablet an empty stomach. DULoxetine 2021-04 Yes 30mg QD Take [address] (CYMBALTA) 1-05 by mouth [facility] 30 MG 13:31: daily. Medical capsule 19 [place] omeprazole 2021-04 Yes 40mg QD Take [address] (PRILOSEC) 1-05 by mouth [facility] 40 MG 13:31: daily. Medical capsule 19 [place] ondansetron 2021-04 Yes 4mg Take [address] (ZOFRAN) 4 1-05 by mouth 2 [facility] MG tablet 13:31: (two) Medical 19 times Center daily as needed for Nausea . carvedilol 2021-04 Yes 25mg Take [address] (COREG) 25 1-05 by mouth 2 [facility] MG tablet 13:31: (two) Medical 19 times Center daily with breakfast and dinner. TIOTROPIUM 2021-04 Yes QD Inhale by [facility] BROMIDE 1-05 mouth via [facility] (SPIRIVA 13:31: inhaler Medica l WITH 19 daily . [place] HANDIHALER INHL) LACTOBACILL 2021-04 Yes Take by [facility] US 1-05 mouth. [facility] ACIDOPHILUS 13:31: Medica l (PROBIOTIC 19 Center ORAL) cholecalcif 2021-04 Yes 1000U QD Take 1,[address] [facility] miguel, 1-05 Units by [facility] vitamin D3, 13:31: mouth Medic al 1,000 unit 19 daily. [place] capsule folic acid 2021-04 Yes 400ug QD Take [address] (FOLVITE) 1-05 mcg by [facility] 800 MCG 13:31: mouth Medical tablet 19 daily. [place] CYANOCOBALA 2021-04 Yes 1000ug QD Take 1,[address] MIN, 1-05 mcg by [facility] VITAMIN 13:31: mouth Medical B-12, 19 daily . Center (VITAMIN B-12 ORAL) ALPRAZolam 2021-04 Yes .5mg Take 0.[address] [facility] (XANAX) 0.5 1-05 mg by [facility] MG tablet 13:31: mouth Medical 19 every Center night as needed for Anxiety. estrogens, 2021-04 Yes 1.25mg QD Take 1.[address] [facility] conjugated, 1-05 mg by [facility] (PREMARIN) 13:31: mouth Medica l 1.25 MG 19 daily. Center tablet gabapentin 2021-04 Yes 300mg Q.[id number] Take [address] [facility] (NEURONTIN) 1-05 [id number] mg by [facility] 300 MG 13:31: 3D mouth 3 Medical capsule 19 (three) Center times daily. acetaminoph 2021-04 Yes 500mg Take [address] en 1-05 mg by [facility] (TYLENOL) 13:31: mouth Medical 500 MG 19 every 6 Center tablet (six) hours as needed for Pain . montelukast 2021-04 Yes 10mg QD Take [address] [facility] (SINGULAIR) 1-05 by mouth [facility] 10 mg 13:31: nightly. Medical tablet 19 [place] LANSOPRAZOL 2021-04 Yes QD Take by [facility] E (PREVACID 1-05 mouth [facility] ORAL) 13:31: daily . Medical 19 [place] verapamiL 2021-04 Yes 240mg QD Take [address] [facility] (VERELAN 1-05 mg by [facility] PM) 240 MG 13:31: mouth Medica l 24 hr 19 daily. Center capsule candesartan 2021-04 Yes 32mg QD Take [address] [facility] (ATACAND) 1-05 by mouth [facility] 32 MG 13:31: daily. Medical tablet 19 [place] clopidogreL 2021-04 Yes 75mg QD Take [address] [facility] (PLAVIX) 75 1-05 by mouth [facility] mg tablet 13:31: daily. Medica l [address] [place] guanFACINE 2021-04 Yes 1mg QD Take [address] [facility] [address] [facility] (TENEX) 1 1-05 [facility] MG tablet 13:31: nightly. Medi john [address] [place] metoclopram 2021-04 Yes 10mg Take [address] [facility] michel HCl 1-05 by mouth [facility] (REGLAN) 10 13:31: (four) Medi john MG tablet 19 times Center daily as needed for Nausea. oxybutynin 2021-04 Yes 10mg QD Take [address] (DITROPAN-X 1-05 by mouth [facility] L) 10 MG 24 13:31: daily. Medi john hr tablet [address] [place] potassium 2021-04 Yes 500mg QD Take [address] [facility] aminobenzoa 1-05 mg by [facility] te ([place]) 13:31: mouth Medic al 500 mg Cap 19 daily. [place] budesonide- 2021-04 Yes 2{puff} Q.5D Inhale [address] [facility] formoteroL 1-05 puffs by [facility] (SYMBICORT) 13:31: mouth via M edical 80-4.5 19 inhaler 2 Center mcg/actuati (two) on inhaler times daily. zinc 2021-04 Yes 50mg QD Take [address] [facility] gluconate 1-05 by mouth [facility] 50 mg 13:31: daily. Medical tablet [address] [place] levothyroxi 2021-04 Yes 75ug Take [address] [facility] ne 1-05 mcg by [facility] (SYNTHROID, 13:31: mouth Medic al LEVOTHROID) 19 [facility] 75 MCG morning on tablet an empty stomach. DULoxetine 2021-04 Yes 30mg QD Take [address] [facility] (CYMBALTA) 1-05 by mouth [facility] 30 MG 13:31: daily. Medical capsule 19 [place] ondansetron 2021-04 Yes 4mg Take 1 [facility] (ZOFRAN) 4 1-05 Tablet by [facility] ege MG tablet 00:00: mouth of 00 daily. Medicin e metoclopram 2021-04 Yes 10mg Take 1 [facility] michel 1-05 Tablet by [facility] (REGLAN) 10 00:00: mouth four of MG tablet 00 times Medicin daily. e PRN. aspirin 81 2021-04- No 81mg QD Take [address] [facility] MG chewable 1-04 05-03 tablet (81 [facility] tablet 00:00: 23:59 mg total) Medic al 00 :00 by mouth Center daily for 180 days. aspirin 81 2021-04- No 81mg QD Take [address] [facility] MG chewable 1-04 05-03 tablet (81 [facility] tablet 00:00: 23:59 mg total) Medic al 00 :00 by mouth Center daily for 180 days. aspirin 81 2021-04- No 81mg QD Take [address] [facility] MG chewable 1-04 05-03 tablet (81 [facility] tablet 00:00: 23:59 mg total) Medic al 00 :00 by mouth Center daily for 180 days. aspirin 81 2021-04- No 81mg QD Take [address] [facility] MG chewable 1-04 05-03 tablet (81 [facility] tablet 00:00: 23:59 mg total) Medic al 00 :00 by mouth Center daily for 180 days. aspirin 81 2021-04- No 81mg QD Take [address] [facility] MG chewable 1-04 05-03 tablet (81 [facility] tablet 00:00: 23:59 mg total) Medic al 00 :00 by mouth Center daily for 180 days. aspirin 81 2021-04- No 81mg QD Take [address] [facility] MG chewable 1-04 05-03 tablet (81 [facility] tablet 00:00: 23:59 mg total) Medic al 00 :00 by mouth Center daily for 180 days. aspirin 81 2021-04- No 81mg QD Take [address] [facility] MG chewable 1-04 05-03 tablet (81 [facility] tablet 00:00: 23:59 mg total) Medic al 00 :00 by mouth Center daily for 180 days. aspirin 81 2021-04- No 81mg QD Take [address] [facility] MG chewable 1-04 05-03 tablet (81 [facility] tablet 00:00: 23:59 mg total) Medic al 00 :00 by mouth Center daily for 180 days. aspirin 81 2021-04- No 81mg QD Take [address] [facility] MG chewable 1-04 05-03 tablet (81 [facility] tablet 00:00: 23:59 mg total) Medic al 00 :00 by mouth Center daily for 180 days. aspirin 81 2021-04- No 81mg QD Take [address] [facility] MG chewable 1-04 05-03 tablet (81 [facility] tablet 00:00: 23:59 mg total) Medic al 00 :00 by mouth Center daily for 180 days. aspirin 81 2021-04- No 81mg QD Take [address] [facility] MG chewable 1-04 05-03 tablet (81 [facility] tablet 00:00: 23:59 mg total) Medic al 00 :00 by mouth Center daily for 180 days. Cyanocobala 2021-04 Yes 1{tbl} Take 1 [facility] (B-12 0-27 Tablet by [facility] ge [place]) 09:23: mouth of 02 daily. Medicin e alprazolam 2021-04 Yes .5mg Take 0.5 [facility] (XANAX) 0.5 0-27 mg by [place] MG tablet 09:23: mouth of 02 nightly as Medicin needed for e Sleep. estrogens, 2021-04 Yes 1.25mg Take 1.25 [facility] conjugated, 0-27 mg by [place] (PREMARIN) 09:23: mouth of 1.25 MG 02 daily. Medicin tablet e montelukast 2021-04 Yes 10mg Take 10 mg [facility] (SINGULAIR) 0-27 by mouth [facility] 10 MG 09:23: daily. of tablet 02 Medicin e omeprazole 2021-04 Yes 40mg Take 40 mg [facility] (PRILOSEC) 0-27 by mouth [facility] 40 MG 09:23: daily. of capsule 02 Medicin e MAGNESIUM 2021-04 Yes 1{tbl} Take 1 [facility] [place] 0-27 Tablet by [place] 09:23: mouth of 02 daily. Medicin e acetaminoph 2021-04 Yes 1000mg Take 1,000 [facility] en 0-27 mg by [place] (TYLENOL) 09:23: mouth as of 500 mg 02 needed for Medicin tablet Pain. e gabapentin 2021-04 Yes 300mg Take 300 [facility] (NEURONTIN) 0-27 mg by [place] 300 MG 09:23: mouth 3 of capsule 02 times Medicin daily. e oxybutynin 2021-04 Yes 10mg Take 10 mg [facility] (DITROPAN-X 0-27 by mouth [facility] L) 10 MG CR 09:23: as needed. of tablet 02 Medicin e Cabozantini 2021-04 Yes [id number] Take by [facility] ju[facility] b S-[place] 0-27 mouth. [facility] 20 MG TABS 09:23: Take of 02 2-20mg Medicin tablets by e mouth once daily. Indication s: Kidney Cell Carcinoma Cyanocobala 2021-04 Yes 1{tbl} Take 1 [facility] (B-12 0-27 Tablet by [facility] ge [place]) 09:23: mouth of 02 daily. Medicin e alprazolam 2021-04 Yes .5mg Take 0.5 [facility] (XANAX) 0.5 0-27 mg by [place] MG tablet 09:23: mouth of 02 nightly as Medicin needed for e Sleep. estrogens, 2021-04 Yes 1.25mg Take 1.25 [facility] conjugated, 0-27 mg by [place] (PREMARIN) 09:23: mouth of 1.25 MG 02 daily. Medicin tablet e montelukast 2021-04 Yes 10mg Take 10 mg [facility] (SINGULAIR) 0-27 by mouth [facility] 10 MG 09:23: daily. of tablet 02 Medicin e omeprazole 2021-04 Yes 40mg Take 40 mg [facility] (PRILOSEC) 0-27 by mouth [facility] 40 MG 09:23: daily. of capsule 02 Medicin e MAGNESIUM 2021-04 Yes 1{tbl} Take 1 [facility] [place] 0-27 Tablet by [place] 09:23: mouth of 02 daily. Medicin e acetaminoph 2021-04 Yes 1000mg Take 1,000 [facility] en 0-27 mg by [place] (TYLENOL) 09:23: mouth as of 500 mg 02 needed for Medicin tablet Pain. e gabapentin 2021-04 Yes 300mg Take 300 [facility] (NEURONTIN) 0-27 mg by [place] 300 MG 09:23: mouth 3 of capsule 02 times Medicin daily. e oxybutynin 2021-04 Yes 10mg Take 10 mg [facility] (DITROPAN-X 0-27 by mouth [facility] L) 10 MG CR 09:23: as needed. of tablet 02 Medicin e Cabozantini 2021-04 Yes 3783 Take by [facility] ujancho b S-[place] 0-27 mouth. [place] 20 MG TABS 09:23: Take of 02 2-20mg Medicin tablets by e mouth once daily. Indication s: Kidney Cell Carcinoma azithromyci 2021-042- No 250mg Take 0.5 [facility] n 0-27 11-27 Tablets by [place] (ZITHROMAX) 00:00: 05:59 mouth 3 of 500 MG 00 :00 times Medicin tablet weekly for e 30 days. For Pulmonary MAC infection ethambutol 2021-04- No 1200mg Take 3 [facility] (MYAMBUTOL) 0-27 11-27 Tablets by [facility] 400 MG 00:00: 05:59 mouth 3 of tablet 00 :00 times Medicin weekly for e 30 days. For Pulmonary MAC infection azithromyci 2021-04 No 250mg Take 0.5 [facility] n 0-27 11-27 Tablets by [place] (ZITHROMAX) 00:00: 05:59 mouth 3 of 500 MG 00 :00 times Medicin tablet weekly for e 30 days. For Pulmonary MAC infection ethambutol 2021-04 No 1200mg Take 3 [facility] (MYAMBUTOL) 0-27 11-27 Tablets by [facility] coughlin 400 MG 00:00: 05:59 mouth 3 of tablet 00 :00 times Medicin weekly for e 30 days. For Pulmonary MAC infection Cyanocobala 2021-04 Yes 1{tbl} Take 1 [facility] (B-12 0-21 Tablet by [facility] ge [place]) 11:29: mouth of 32 daily. Medicin e alprazolam 2021-04 Yes .5mg Take 0.5 [facility] (XANAX) 0.5 0-21 mg by [place] MG tablet 11:29: mouth of 32 nightly as Medicin needed for e Sleep. montelukast 2021-04 Yes 10mg Take 10 mg [facility] (SINGULAIR) 0-21 by mouth [facility] 10 MG 11:29: daily. of tablet 32 Medicin e omeprazole 2021-04 Yes 40mg Take 40 mg [facility] (PRILOSEC) 0-21 by mouth [facility] 40 MG 11:29: daily. of capsule 32 Medicin e MAGNESIUM 2021-04 Yes 1{tbl} Take 1 [facility] [place] 0-21 Tablet by [place] 11:29: mouth of 32 daily. Medicin e acetaminoph 2021-04 Yes 1000mg Take 1,000 [facility] en 0-21 mg by [place] (TYLENOL) 11:29: mouth as of 500 mg 32 needed for Medicin tablet Pain. e gabapentin 2021-04 Yes 300mg Take 300 [facility] (NEURONTIN) 0-21 mg by [place] 300 MG 11:29: mouth 3 of capsule 32 times Medicin daily. e oxybutynin 2021-04 Yes 10mg Take 10 mg [facility] (DITROPAN-X 0-21 by mouth [facility] e[facility] L) 10 MG CR 11:29: as needed. of tablet 32 Medicin e Cabozantini 2021-04 Yes 3783 Take by [facility] ju[facility] b [place] 0-21 mouth. [facility] 20 MG TABS 11:29: Take of 32 2-20mg Medicin tablets by e mouth once daily. Indication s: Kidney Cell Carcinoma Cyanocobala 2021-04 Yes 1{tbl} Take 1 [facility] (B-12 0-21 Tablet by [facility] ge [place]) 11:29: mouth of 32 daily. Medicin e alprazolam 2021-04 Yes .5mg Take 0.5 [facility] (XANAX) 0.5 0-21 mg by [place] MG tablet 11:29: mouth of 32 nightly as Medicin needed for e Sleep. montelukast 2021-04 Yes 10mg Take 10 mg [facility] (SINGULAIR) 0-21 by mouth [facility] 10 MG 11:29: daily. of tablet 32 Medicin e omeprazole 2021-04 Yes 40mg Take 40 mg [facility] (PRILOSEC) 0-21 by mouth [facility] 40 MG 11:29: daily. of capsule 32 Medicin e MAGNESIUM 2021-04 Yes 1{tbl} Take 1 [facility] [place] 0-21 Tablet by [place] 11:29: mouth of 32 daily. Medicin e acetaminoph 2021-04 Yes 1000mg Take 1,000 [facility] en 0-21 mg by [place] (TYLENOL) 11:29: mouth as of 500 mg 32 needed for Medicin tablet Pain. e gabapentin 2021-04 Yes 300mg Take 300 [facility] (NEURONTIN) 0-21 mg by [place] 300 MG 11:29: mouth 3 of capsule 32 times Medicin daily. e oxybutynin 2021-04 Yes 10mg Take 10 mg [facility] (DITROPAN-X 0-21 by mouth [facility] L) 10 MG CR 11:29: as needed. of tablet 32 Medicin e Cabozantini 2021-04 Yes 3783 Take by [facility] juancho b [facility] 0-21 mouth. [facility] 20 MG TABS 11:29: Take of 32 2-20mg Medicin tablets by e mouth once daily. Indication s: Kidney Cell Carcinoma prochlorper 2021-04 Yes 10mg Take 1 [facility] azine 0-21 Tablet by [place] (COMPAZINE) 00:00: mouth of 10 MG 00 every 6 Medicin tablet hours as e needed. prochlorper 2021-04 Yes 10mg Take 1 [facility] azine 0-21 Tablet by [place] (COMPAZINE) 00:00: mouth of 10 MG 00 every 6 Medicin tablet hours as e needed. prochlorper 2021-04 Yes 10mg Take 1 [facility] azine 0-21 Tablet by [place] (COMPAZINE) 00:00: mouth of 10 MG 00 every 6 Medicin tablet hours as e needed. prochlorper 2021-04 Yes 10mg Take 1 [facility] azine 0-21 Tablet by [place] (COMPAZINE) 00:00: mouth of 10 MG 00 every 6 Medicin tablet hours as e needed. prochlorper 2021-04 Yes 10mg Take 1 [facility] azine 0-21 Tablet by [place] (COMPAZINE) 00:00: mouth of 10 MG 00 every 6 Medicin tablet hours as e needed. prochlorper 2021-04 Yes 10mg Take 1 [facility] azine 0-21 Tablet by [place] (COMPAZINE) 00:00: mouth of 10 MG 00 every 6 Medicin tablet hours as e needed. prochlorper 2021-04 Yes 10mg Take 1 [facility] azine 0-21 Tablet by [place] (COMPAZINE) 00:00: mouth of 10 MG 00 every 6 Medicin tablet hours as e needed. prochlorper 2021-04 Yes 10mg Take 1 [facility] azine 0-21 Tablet by [place] (COMPAZINE) 00:00: mouth of 10 MG 00 every 6 Medicin tablet hours as e needed. prochlorper 2021-04 Yes 10mg Take 1 [facility] azine 0-21 Tablet by [place] (COMPAZINE) 00:00: mouth of 10 MG 00 every 6 Medicin tablet hours as e needed. prochlorper 2021-04 Yes 10mg Take 1 [facility] azine 0-21 Tablet by [place] (COMPAZINE) 00:00: mouth of 10 MG 00 every 6 Medicin tablet hours as e needed. duloxetine 2021-04 Yes 60mg Take 1 [facility] (CYMBALTA) 0-19 capsule by [facility] 60 MG 00:00: mouth of capsule 00 daily. Medicin e duloxetine 2021-04 Yes 60mg Take 1 [facility] (CYMBALTA) 0-19 capsule by [facility] 60 MG 00:00: mouth of capsule 00 daily. Medicin e duloxetine 2021-04 Yes 60mg Take 1 [facility] (CYMBALTA) 0-19 capsule by [facility] 60 MG 00:00: mouth of capsule 00 daily. Medicin e duloxetine 2021-04 Yes 60mg Take 1 [facility] (CYMBALTA) 0-19 capsule by [facility] 60 MG 00:00: mouth of capsule 00 daily. Medicin e duloxetine 2021-04 Yes 60mg Take 1 [facility] (CYMBALTA) 0-19 capsule by [facility] 60 MG 00:00: mouth of capsule 00 daily. Medicin e duloxetine 2021-04 Yes 60mg Take 1 [facility] (CYMBALTA) 0-19 capsule by [facility] 60 MG 00:00: mouth of capsule 00 daily. Medicin e duloxetine 2021-04 Yes 60mg Take 1 [facility] (CYMBALTA) 0-19 capsule by [facility] 60 MG 00:00: mouth of capsule 00 daily. Medicin e duloxetine 2021-04 Yes 60mg Take 1 [facility] (CYMBALTA) 0-19 capsule by [facility] 60 MG 00:00: mouth of capsule 00 daily. Medicin e Cyanocobala 2021-04 Yes 1{tbl} Take 1 [facility] (B-12 0-11 Tablet by [facility]) 10:01: mouth of 29 daily. Medicin e alprazolam 2021-04 Yes .5mg Take 0.5 [facility] (XANAX) 0.5 0-11 mg by [place] MG tablet 10:01: mouth of 29 nightly as Medicin needed for e Sleep. estrogens, 2021-04 Yes 1.25mg Take 1.25 [facility] conjugated, 0-11 mg by [place] (PREMARIN) 10:01: mouth of 1.25 MG 29 [...] 1 [facility] [place] 0-11 Tablet by [place] 10:01: mouth of 29 daily. Medicin e acetaminoph 2021-04 Yes 1000mg Take 1,000 [facility] en 0-11 mg by [place] (TYLENOL) 10:01: mouth as of 500 mg 29 needed for Medicin tablet Pain. e gabapentin 2021-04 Yes 300mg Take 300 [facility] (NEURONTIN) 0-11 mg by [place] 300 MG 10:01: mouth 3 of capsule 29 times Medicin daily. e oxybutynin 2021-04 Yes 10mg Take 10 mg [facility] (DITROPAN-X 0-11 by mouth [facility] L) 10 MG CR 10:01: as needed. of tablet 29 Medicin e Cabozantini 2021-04 Yes 3783 Take by [facility] juancho b [place] 0-11 mouth. [place] 20 MG TABS 10:01: Take of 29 2-20mg Medicin tablets by e mouth once daily. Indication s: Kidney Cell Carcinoma Cyanocobala 2021-04 Yes 1{tbl} Take 1 [facility] (B-12 0-11 Tablet by [facility] ge [place]) 10:01: mouth of 29 daily. Medicin e alprazolam 2021-04 Yes .5mg Take 0.5 [facility] (XANAX) 0.5 0-11 mg by [place] MG tablet 10:01: mouth of 29 nightly as Medicin needed for e Sleep. estrogens, 2021-04 Yes 1.25mg Take 1.25 [facility] conjugated, 0-11 mg by [place] (PREMARIN) 10:01: mouth of 1.25 MG 29 [...] 1 [facility] [place] 0-11 Tablet by [place] 10:01: mouth of 29 daily. Medicin e acetaminoph 2021-04 Yes 1000mg Take 1,000 [facility] en 0-11 mg by [place] (TYLENOL) 10:01: mouth as of 500 mg 29 needed for Medicin tablet Pain. e gabapentin 2021-04 Yes 300mg Take 300 [facility] (NEURONTIN) 0-11 mg by [place] 300 MG 10:01: mouth 3 of capsule 29 times Medicin daily. e oxybutynin 2021-04 Yes 10mg Take 10 mg [facility] (DITROPAN-X 0-11 by mouth [facility] ege L) 10 MG CR 10:01: as needed. of tablet 29 Medicin e Cabozantini 2021-04 Yes 3783 Take by [facility] juancho b [place] 0-11 mouth. [facility] 20 MG TABS 10:01: Take of 29 2-20mg Medicin tablets by e mouth once daily. Indication s: Kidney Cell Carcinoma estrogens, 2021-04 Yes 1.25mg Take 1.25 [facility] conjugated, 0-11 mg by [place] (PREMARIN) 10:01: mouth of 1.25 MG 29 daily. Medicin tablet e estrogens, 2021-04 Yes 1.25mg Take 1.25 [facility] conjugated, 0-11 mg by [place] (PREMARIN) 10:01: mouth of 1.25 MG 29 daily. Medicin tablet e diphenoxyla 2021-04 Yes 1{tbl} Take 1 [facility] te-atropine 0-11 Tablet by [facility] (LOMOTIL) 00:00: mouth 4 of 2.5-0.025 00 times Medicin MG per daily as e tablet needed for Diarrhea. diphenoxyla 2021-04 Yes 1{tbl} Take 1 [facility] te-atropine 0-11 Tablet by [facility] (LOMOTIL) 00:00: mouth 4 of 2.5-0.025 00 times Medicin MG per daily as e tablet needed for Diarrhea. diphenoxyla 2021-04 Yes 1{tbl} Take 1 [facility] te-atropine 0-11 Tablet by [facility] (LOMOTIL) 00:00: mouth 4 of 2.5-0.025 00 times Medicin MG per daily as e tablet needed for Diarrhea. diphenoxyla 2021-04 Yes 1{tbl} Take 1 [facility] te-atropine 0-11 Tablet by [facility] (LOMOTIL) 00:00: mouth 4 of 2.5-0.025 00 times Medicin MG per daily as e tablet needed for Diarrhea. diphenoxyla 2021-04 Yes 1{tbl} Take 1 [facility] te-atropine 0-11 Tablet by [facility] (LOMOTIL) 00:00: mouth 4 of 2.5-0.025 00 times Medicin MG per daily as e tablet needed for Diarrhea. diphenoxyla 2021-04 Yes 1{tbl} Take 1 [facility] te-atropine 0-11 Tablet by [facility] (LOMOTIL) 00:00: mouth 4 of 2.5-0.025 00 times Medicin MG per daily as e tablet needed for Diarrhea. diphenoxyla 2021-04 Yes 1{tbl} Take 1 [facility] te-atropine 0-11 Tablet by [facility] (LOMOTIL) 00:00: mouth 4 of 2.5-0.025 00 times Medicin MG per daily as e tablet needed for Diarrhea. diphenoxyla 2021-04 Yes 1{tbl} Take 1 [facility] te-atropine 0-11 Tablet by [facility] (LOMOTIL) 00:00: mouth 4 of 2.5-0.025 00 times Medicin MG per daily as e tablet needed for Diarrhea. diphenoxyla 2021-04 Yes 1{tbl} Take 1 [facility] te-atropine 0-11 Tablet by [facility] (LOMOTIL) 00:00: mouth 4 of 2.5-0.025 00 times Medicin MG per daily as e tablet needed for Diarrhea. diphenoxyla 2021-04 Yes 1{tbl} Take 1 [facility] te-atropine 0-11 Tablet by [facility] (LOMOTIL) 00:00: mouth 4 of 2.5-0.025 00 times Medicin MG per daily as e tablet needed for Diarrhea. diphenoxyla 2021-04 Yes 1{tbl} Take 1 [facility] te-atropine 0-11 Tablet by [facility] (LOMOTIL) 00:00: mouth 4 of 2.5-0.025 00 times Medicin MG per daily as e tablet needed for Diarrhea. carvedilol Yes TAKE 1 [facility] (COREG) 25 9-30 TABLET BY [facility] MG tablet 00:00: MOUTH of 00 [...] of 00 TWICE Medicin DAILY e carvedilol 0 Yes TAKE 1 [facility] (COREG) 25 9-30 TABLET BY [facility] MG tablet 00:00: MOUTH of 00 TWICE Medicin DAILY e candesartan 0 2- No 16mg Take 16 mg [facility] (ATACAND) - 09-23 by mouth [facility] 16 MG 11:11: 00:00 daily. of tablet 30 :00 Medicin e Cyanocobala Yes 1{tbl} Take 1 [facility] (B-12 -23 Tablet by [facility] ge [place]) 10:19: mouth of 31 daily. Medicin e alprazolam Yes .5mg Take 0.5 [facility] (XANAX) 0.5 9-23 mg by [place] MG tablet 10:19: mouth of 31 nightly as Medicin needed for e Sleep. estrogens, Yes 1.25mg Take 1.25 [facility] conjugated, 9-23 mg by [place] (PREMARIN) 10:19: mouth of 1.25 MG 31 daily. Medicin tablet e montelukast Yes 10mg Take 10 mg [facility] (SINGULAIR) - by mouth [facility] ege 10 MG 10:19: daily. of tablet 31 Medicin e omeprazole 0 Yes 40mg Take 40 mg [facility] (PRILOSEC) 12-24 by mouth [facility] 40 MG 10:19: daily. of capsule 31 Medicin e MAGNESIUM 0 Yes 1{tbl} Take 1 [facility] [place] 9-23 Tablet by [place] 10:19: mouth of 31 daily. Medicin e acetaminoph 0 Yes 1000mg Take 1,000 [facility] en 9-23 mg by [place] (TYLENOL) 10:19: mouth as of 500 mg 31 needed for Medicin tablet Pain. e gabapentin 0 Yes 300mg Take 300 [facility] (NEURONTIN) 9-23 mg by [place] 300 MG 10:19: mouth 3 of capsule 31 times Medicin daily. e oxybutynin 0 Yes 10mg Take 10 mg [facility] (DITROPAN-X 12-24 by mouth [facility] L) 10 MG CR 10:19: as needed. of tablet 31 Medicin e Cabozantini 0 Yes 3783 Take by [facility] juancho b [facility]-[place] - mouth. [facility] 20 MG TABS 10:19: Take of 31 2-20mg Medicin tablets by e mouth once daily. Indication s: Kidney Cell Carcinoma Magic 2021-0 Yes Swish, [facility] Mouthwash 12-24 gargle, [place] 00:00: and spit of 00 5-10 mL Medicin every 4 to e 6 hours as needed candesartan 2021-0 Yes [id number] TAKE 1 [facility] (ATACAND) 9-23 TABLET BY [facility] 16 MG 00:00: MOUTH of tablet 00 DAILY. Medicin e Magic 0 Yes Swish, [facility] Mouthwash 12-24 gargle, [place] 00:00: and spit of 00 5-10 mL Medicin every 4 to e 6 hours as needed candesartan 2-0 Yes [id number] TAKE 1 [facility] (ATACAND) 9-23 TABLET BY [facility] 16 MG 00:00: MOUTH of tablet 00 DAILY. Medicin e Magic 0 Yes Swish, [facility] Mouthwash 12-24 gargle, [place] 00:00: and spit of 00 5-10 mL Medicin every 4 to e 6 hours as needed candesartan 2022-0 Yes [id number] TAKE 1 [facility] (ATACAND) 9-23 TABLET BY [facility] 16 MG 00:00: MOUTH of tablet 00 DAILY. Medicin e Magic 2021-0 Yes Swish, [facility] Mouthwash 12-24 gargle, [place] 00:00: and spit of 00 5-10 mL Medicin every 4 to e 6 hours as needed candesartan 2022-0 Yes [id number] TAKE 1 [facility] (ATACAND) 9-23 TABLET BY [facility] 16 MG 00:00: MOUTH of tablet 00 DAILY. Medicin e Magic 2021-0 Yes Swish, [facility] Mouthwash 12-24 gargle, [place] 00:00: and spit of 00 5-10 mL Medicin every 4 to e 6 hours as needed candesartan 2022-0 Yes [id number] TAKE 1 [facility] (ATACAND) 9-23 TABLET BY [facility] 16 MG 00:00: MOUTH of tablet 00 DAILY. Medicin e Magic 2022-0 Yes Swish, [facility] Mouthwash -23 gargle, [facility] 00:00: and spit of 00 5-10 mL Medicin every 4 to e 6 hours as needed candesartan 2022-0 Yes [id number] TAKE 1 [facility] (ATACAND) 9-23 TABLET BY [facility] 16 MG 00:00: MOUTH of tablet 00 DAILY. Medicin e Magic 2022-0 Yes Swish, [facility] Mouthwash -23 gargle, [place] 00:00: and spit of 00 5-10 mL Medicin every 4 to e 6 hours as needed candesartan 2022-0 Yes [id number] TAKE 1 [facility] (ATACAND) 9-23 TABLET BY [facility] 16 MG 00:00: MOUTH of tablet 00 DAILY. Medicin e Magic 2-0 Yes Swish, [facility] Mouthwash -23 gargle, [place] 00:00: and spit of 00 5-10 mL Medicin every 4 to e 6 hours as needed candesartan 2022-0 Yes [id number] TAKE 1 [facility] (ATACAND) 9-23 TABLET BY [facility] 16 MG 00:00: MOUTH of tablet 00 DAILY. Medicin e Magic 2-0 Yes Swish, [facility] Mouthwash -23 gargle, [facility] 00:00: and spit of 00 5-10 mL Medicin every 4 to e 6 hours as needed Magic 2022-0 Yes Swish, [facility] Mouthwash -23 gargle, [facility] 00:00: and spit of 00 5-10 mL Medicin every 4 to e 6 hours as needed Magic 2022-0 Yes Swish, [facility] Mouthwash 9-23 gargle, [facility] 00:00: and spit of 00 5-10 mL Medicin every 4 to e 6 hours as needed Magic 2022-0 Yes Swish, [facility] Mouthwash -23 gargle, [facility] 00:00: and spit of 00 5-10 mL Medicin every 4 to e 6 hours as needed Magic 2022-0 Yes Swish, [facility] 5-10 mL Medicin every 4 to e 6 hours as needed Magic 2021-0 Yes Swish, [facility] of 00 5-10 mL Medicin every 4 to e 6 hours as needed omeprazole 0 Yes 40mg QD Take [address] [facility] (PRILOSEC) 8-30 by mouth [facility] 40 MG 08:07: daily. Medical capsule 05 Center ondansetron 0 Yes 4mg Take [address] [facility] (ZOFRAN) 4 8-30 by mouth 2 [facility] MG tablet 08:07: (two) Medical 05 times Center daily as needed for Nausea . carvedilol Yes 25mg Take [address] [facility] (COREG) 25 8-30 by mouth 2 [facility] MG tablet 08:07: (two) Medical 05 times Center daily with breakfast and dinner. TIOTROPIUM 0 Yes QD Inhale by [facility] BROMIDE 8-30 mouth via [facility] (SPIRIVA 08:07: inhaler Medica l WITH 05 daily . [place] HANDIHALER INHL) LACTOBACILL Yes Take by [facility] US 8-30 mouth. [facility] ACIDOPHILUS 08:07: Medica l (PROBIOTIC 05 Center ORAL) cholecalcif 0 Yes 1000U QD Take 1,[address] [facility] miguel, 8-30 Units by [facility] vitamin D3, 08:07: mouth Medic al 1,000 unit 05 daily. [place] capsule folic acid Yes 400ug QD Take [address] [facility] (FOLVITE) 8-30 mcg by [facility] 800 MCG 08:07: mouth Medical tablet 05 daily. [place] CYANOCOBALA 0 Yes 1000ug QD Take 1,[address] [facility] MIN, 8-30 mcg by [facility] VITAMIN 08:07: mouth Medical B-12, 05 daily . [place] (VITAMIN B-12 ORAL) estrogens, 0 Yes 1.25mg QD Take 1.[address] conjugated, 8-30 mg by [facility] (PREMARIN) 08:07: mouth Medica l 1.25 MG 05 daily. [place] tablet gabapentin 0 Yes 300mg Q.[id number] Take [address] (NEURONTIN) 8-30 [id number] mg by L u[facility] 300 MG 08:07: 3D mouth 3 Medical capsule 05 (three) Center times daily. montelukast Yes 10mg QD Take [address] [facility] (SINGULAIR) 8-30 by mouth [facility] 10 mg 08:07: nightly. Medical tablet 05 [place] LANSOPRAZOL Yes QD Take by [facility] E (PREVACID 8-30 mouth [facility] ORAL) 08:07: daily . Medical 05 [place] verapamiL 0 Yes 240mg QD Take [address] [facility] (VERELAN 8-30 mg by [facility] PM) 240 MG 08:07: mouth Medica l 24 hr 05 daily. [place] capsule candesartan Yes 32mg QD Take [address] [facility] (ATACAND) 8-30 by mouth [facility] 32 MG 08:07: daily. Medical tablet 05 [place] clopidogreL Yes 75mg QD Take [address] [facility] (PLAVIX) 75 8-30 by mouth [facility] mg tablet 08:07: daily. Medica l 05 [place] guanFACINE Yes 1mg QD Take [address] [facility] [address] [facility] (TENEX) 1 8-30 by mouth [facility] MG tablet 08:07: nightly. Medi john 05 [place] metoclopram 0 Yes 10mg Take [address] [facility] michel HCl 8-30 by mouth 4 [facility] (REGLAN) 10 08:07: (four) Medi john MG tablet 05 times Center daily as needed for Nausea. oxybutynin Yes 10mg QD Take [address] [facility] (DITROPAN-X 8-30 by mouth Luke s L) 10 MG 24 08:07: daily. Medi john hr tablet 05 [place] potassium 0 Yes 500mg QD Take [address] aminobenzoa 8-30 mg by [facility] te ([place]) 08:07: mouth Medic al 500 mg Cap 05 daily. [place] budesonide- Yes 2{puff} Q.5D Inhale [address] formoteroL 8-30 puffs by [facility] (SYMBICORT) 08:07: mouth via M edical 80-4.5 05 inhaler 2 [place] mcg/actuati (two) on inhaler times daily. zinc 2022-0 Yes 50mg QD Take [address] [facility] gluconate 8-30 by mouth [facility] 50 mg 08:07: daily. Medical tablet 05 Center levothyroxi 0 Yes 75ug Take [address] [facility] [facility] ne 8-30 mcg by [facility] (SYNTHROID, 08:07: mouth Medic al LEVOTHROID) 05 Every Center 75 MCG morning on tablet an empty stomach. DULoxetine 2021-0 Yes 30mg QD Take [address] (CYMBALTA) 8-30 [facility] 30 MG 08:07: daily. Medical capsule 05 [place] omeprazole 0 Yes 40mg QD Take [address] [facility] (PRILOSEC) 8-30 by [facility] 40 MG 08:07: daily. Medical capsule 05 [place] ondansetron 0 Yes 4mg Take [address] [facility] (ZOFRAN) 4 8-30 by mouth 2 [facility] tablet 08:07: (two) Medical 05 times Center daily as needed for Nausea . carvedilol 0 Yes 25mg Take [address] [facility] [address] [facility] (COREG) 25 8-30 by mouth 2 [facility] MG tablet 08:07: (two) Medical 05 times Center daily with breakfast and dinner. TIOTROPIUM 0 Yes QD Inhale by [facility] BROMIDE 8-30 mouth [facility] (SPIRIVA 08:07: inhaler Medica l WITH 05 daily . [place] HANDIHALER INHL) LACTOBACILL 0 Yes Take by [facility] US 8-30 mouth. [facility] ACIDOPHILUS 08:07: Medica l (PROBIOTIC 05 Center ORAL) cholecalcif 0 Yes 1000U QD Take 1,[address] [facility] miguel, 8-30 Units by [facility] vitamin D3, 08:07: mouth Medic al 1,000 unit 05 daily. [place] capsule folic acid 0 Yes 400ug QD Take [address] [facility] [address] [facility] (FOLVITE) 8-30 mcg by [facility] 800 MCG 08:07: mouth Medical tablet 05 daily. [place] CYANOCOBALA 0 Yes 1000ug QD Take 1,[address] [facility] MIN, 8-30 mcg by [facility] VITAMIN 08:07: mouth Medical B-12, 05 daily . [place] (VITAMIN B-12 ORAL) estrogens, 2021-0 Yes 1.25mg QD Take 1.[address] [facility] conjugated, 8-30 mg by [facility] (PREMARIN) 08:07: mouth Medica l 1.25 MG 05 daily. [place] tablet gabapentin 0 Yes 300mg [id number] Take [address] [facility] (NEURONTIN) 8-30 [id number] mg by [facility] 300 MG 08:07: 3D mouth 3 Medical capsule 05 (three) Center times daily. montelukast 0 Yes 10mg QD Take [address] [facility] (SINGULAIR) 8-30 by mouth [facility] 10 mg 08:07: nightly. Medical tablet 05 [place] LANSOPRAZOL 0 Yes QD Take by [facility] E (PREVACID 8-30 mouth [facility] ORAL) 08:07: daily . Medical 05 [place] verapamiL 0 Yes 240mg QD Take [address] [facility] (VERELAN 8-30 mg by [facility] PM) 240 MG 08:07: mouth Medica l 24 hr 05 daily. [place] capsule candesartan 0 Yes 32mg QD Take [address] [facility] (ATACAND) 8-30 by mouth [facility] 32 MG 08:07: daily. Medical tablet 05 [place] clopidogreL 0 Yes 75mg QD Take [address] [facility] (PLAVIX) 75 8-30 by mouth [facility] mg tablet 08:07: daily. Medica l 05 [place] guanFACINE 0 Yes 1mg QD Take [address] [facility] (TENEX) 1 8-30 by [facility] MG tablet 08:07: nightly. Medi john 05 [place] metoclopram 0 Yes 10mg Take [address] [facility] michel HCl 8-30 by mouth 4 [facility] (REGLAN) 10 08:07: (four) Medi john MG tablet 05 times Center daily as needed for Nausea. oxybutynin 0 Yes 10mg QD Take [address] [facility] (DITROPAN-X 8-30 by mouth [facility] L) 10 MG 24 08:07: daily. Medi john hr tablet 05 [place] potassium 0 Yes 500mg QD Take [address] [facility] aminobenzoa 8-30 mg by [facility] te ([place]) 08:07: mouth Medic al 500 mg Cap 05 daily. [place] budesonide- Yes 2{puff} Q.5D Inhale [address] [facility] formoteroL 8-30 puffs by [facility] (SYMBICORT) 08:07: mouth via M edical 80-4.5 05 inhaler 2 Center mcg/actuati (two) on inhaler times daily. zinc Yes 50mg QD Take [address] [facility] gluconate 8-30 by mouth [facility] 50 mg 08:07: daily. Medical tablet 05 [place] levothyroxi Yes 75ug Take [address] [facility] ne 8-30 mcg by [facility] (SYNTHROID, 08:07: mouth Medic al LEVOTHROID) 05 Every Center 75 MCG morning on tablet an empty stomach. DULoxetine Yes 30mg QD Take [address] [facility] (CYMBALTA) 8-30 by mouth [facility] 30 MG 08:07: daily. Medical capsule 05 [place] furosemide 2021- No 20mg QD Take [address] [facility] (LASIX) 20 8-30 08-30 by mouth [facility] MG tablet 08:07: 00:00 daily As Med ical 05 :00 needed. [place] furosemide 2021- No 20mg QD Take [address] [facility] (LASIX) 20 8-30 08-30 by mouth [facility] MG tablet 08:07: 00:00 daily As Med ical 05 :00 needed. [place] furosemide 2021- No 20mg QD Take [address] [facility] (LASIX) 20 8-30 08-30 by mouth [facility] MG tablet 08:07: 00:00 daily As Med ical 05 :00 needed. [place] furosemide 2021-2- No 20mg QD Take [address] [facility] (LASIX) 20 8-30 08-30 by mouth [facility] MG tablet 08:07: 00:00 daily As Med ical 05 :00 needed. [place] furosemide 2021- No 20mg QD Take [address] [facility] (LASIX) 20 8-30 08-30 by mouth [facility] MG tablet 08:07: 00:00 daily As Med ical 05 :00 needed. [place] furosemide 2021- No 20mg QD Take [address] [facility] (LASIX) 20 8-30 08-30 by mouth [facility] MG tablet 08:07: 00:00 daily As Med ical 05 :00 needed. [place] furosemide 2021-2- No 20mg QD Take [address] [facility] (LASIX) 20 8-30 08-30 by mouth [facility] MG tablet 08:07: 00:00 daily As Med ical 05 :00 needed. [place] furosemide 2022- No 20mg QD Take [address] [facility] (LASIX) 20 8-30 08-30 by mouth [facility] MG tablet 08:07: 00:00 daily As Med ical 05 :00 needed. [place] furosemide 2- No 20mg QD Take [address] [facility] (LASIX) 20 8-30 08-30 by mouth [facility] MG tablet 08:07: 00:00 daily As Med ical 05 :00 needed. [place] furosemide 202- No 20mg QD Take [address] [facility] (LASIX) 20 8-30 08-30 by mouth [facility] MG tablet 08:07: 00:00 daily As Med ical 05 :00 needed. [place] furosemide 2021- No 20mg QD Take [address] [facility] (LASIX) 20 8-30 08-30 by mouth [facility] MG tablet 08:07: 00:00 daily As Med ical 05 :00 needed. [place] furosemide 0 202- No 20mg QD Take [address] [facility] (LASIX) 20 8-30 08-30 by mouth [facility] MG tablet 08:07: 00:00 daily As Med ical 05 :00 needed. [place] furosemide 0 2021- No 20mg QD Take [address] [facility] (LASIX) 20 8-30 08-30 by mouth [facility] MG tablet 08:07: 00:00 daily As Med ical 05 :00 needed. [place] ALPRAZolam 0 Yes .5mg Take 0.[address] [facility] (XANAX) 0.5 8-30 mg by [facility] MG tablet 08:04: mouth Medical 25 every Center night as needed for Anxiety. acetaminoph 0 Yes 500mg Take [address] en 8-30 mg by [facility] (TYLENOL) 08:04: mouth Medical 500 MG 25 every 6 Center tablet (six) hours as needed for Pain . ALPRAZolam 0 Yes .5mg Take 0.[address] [facility] (XANAX) 0.5 8-30 mg by [facility] MG tablet 08:04: mouth Medical 25 every Center night as needed for Anxiety. acetaminoph 2021-0 Yes 500mg Take [address] en 8-30 mg by [facility] (TYLENOL) 08:04: mouth Medical 500 MG 25 every 6 Center tablet (six) hours as needed for Pain . axitinib 5 2021-0 2022- No 5mg Take [address] [facility] mg Tab 8-30 08-30 by mouth [facility] 08:04: 00:00 every 12 Medical 25 :00 (twelve) Center hours. axitinib 5 2021-0 2022- No 5mg Take [address] [facility] mg Tab 8-30 08-30 by [facility] 08:04: 00:00 every 12 Medical 25 :00 (twelve) Center hours. axitinib 5 2021-0 2022- No 5mg Take [address] [facility] mg Tab 8-30 08-30 by mouth [facility] 08:04: 00:00 every 12 Medical 25 :00 (twelve) Center hours. axitinib 5 2021-0 2022- No 5mg Take [address] [facility] mg Tab 8-30 08-30 by mouth [facility] 08:04: 00:00 every 12 Medical 25 :00 (twelve) Center hours. axitinib 5 2021-0 2022- No 5mg Take [address] [facility] mg Tab 8-30 08-30 by mouth [facility] 08:04: 00:00 every 12 Medical 25 :00 (twelve) Center hours. axitinib 5 2021-0 2- No 5mg Take [address] [facility] mg Tab 8-30 08-30 by mouth [facility] 08:04: 00:00 every 12 Medical 25 :00 (twelve) Center hours. axitinib 5 2021-0 2022- No 5mg Take [address] [facility] mg Tab 8-30 08-30 by mouth [facility] 08:04: 00:00 every 12 Medical 25 :00 (twelve) Center hours. axitinib 5 2021-0 2022- No 5mg Take [address] [facility] mg Tab 8-30 08-30 by mouth [facility] 08:04: 00:00 every 12 Medical 25 :00 (twelve) Center hours. axitinib 5 2021-0 2022- No 5mg Take [address] [facility] mg Tab 8-30 08-30 by mouth [facility] 08:04: 00:00 every 12 Medical 25 :00 (twelve) Center hours. axitinib 5 2021-0 2022- No 5mg Take [address] [facility] mg Tab 8-30 08-30 by mouth [facility] 08:04: 00:00 every 12 Medical 25 :00 (twelve) Center hours. axitinib 5 2021-0 2- No 5mg Take [address] [facility] mg Tab 8-30 08-30 by mouth [facility] 08:04: 00:00 every 12 Medical 25 :00 (twelve) Center hours. axitinib 5 2021-0 2- No 5mg Take [address] [facility] mg Tab 8-30 08-30 by mouth [facility] 08:04: 00:00 every 12 Medical 25 :00 (twelve) Center hours. axitinib 5 2021-0 2- No 5mg Take [address] [facility] mg Tab 8-30 08-30 by mouth [facility] 08:04: 00:00 every 12 Medical 25 :00 (twelve) Center hours. lovastatin 2021-0 Yes 20mg QD Take [address] [facility] (MEVACOR) 8-29 by mouth [facility] 20 MG 00:00: daily. Medical tablet 00 [place] lovastatin 2021-0 Yes 20mg QD Take [address] [facility] (MEVACOR) 8-29 by mouth [facility] 20 MG 00:00: daily. Medical tablet 00 [place] lovastatin 2021-0 Yes 20mg QD Take [address] [facility] (MEVACOR) 8-29 by mouth [facility] 20 MG 00:00: daily. Medical tablet 00 [place] lovastatin 2021-0 Yes 20mg QD Take [address] [facility] (MEVACOR) 8-29 by mouth [facility] 20 MG 00:00: daily. Medical tablet 00 [place] lovastatin 2-0 Yes 20mg QD Take [address] [facility] (MEVACOR) 8-29 by mouth [facility] 20 MG 00:00: daily. Medical tablet 00 [place] lovastatin 2-0 Yes 20mg QD Take [address] [facility] (MEVACOR) 8-29 by mouth [facility] 20 MG 00:00: daily. Medical tablet 00 [place] lovastatin 2-0 Yes 20mg QD Take [address] [facility] (MEVACOR) 8-29 by mouth [facility] 20 MG 00:00: daily. Medical tablet 00 [place] lovastatin 2-0 Yes 20mg QD Take [address] [facility] (MEVACOR) 8-29 by mouth [facility] 20 MG 00:00: daily. Medical tablet [address] [place] [address] lovastatin Yes 20mg QD Take [address] (MEVACOR) 8-29 by mouth [facility] 20 MG 00:00: daily. Medical tablet [address] [place] [address] lovastatin Yes 20mg QD Take [address] (MEVACOR) 8-29 by mouth [facility] 20 MG 00:00: daily. Medical tablet [address] [place] [address] lovastatin Yes 20mg QD Take [address] (MEVACOR) 8-29 by mouth [facility] 20 MG 00:00: daily. Medical tablet [address] [place] [address] lovastatin Yes 20mg QD Take [address] (MEVACOR) 8-29 by mouth [facility] 20 MG 00:00: daily. Medical tablet [address] [place] [address] lovastatin Yes 20mg QD Take [address] (MEVACOR) 8-29 by mouth [facility] 20 MG 00:00: daily. Medical tablet [address] [place] [address] Caboz[place] Yes [id number] Take by [facility] 8- mouth. [facility] 20 MG TABS 09:24: Take of 18 2-20mg Medicin tablets by e mouth once daily. Indication s: Kidney Cell Carcinoma Cyanocobala Yes 1{tbl} Take 1 [facility] (B-12 8-26 Tablet by [facility] OR) 08:33: mouth of 06 daily. Medicin e alprazolam Yes .5mg Take 0.5 [facility] (XANAX) 0.5 8-26 mg by [place] MG tablet 08:33: mouth of 06 nightly as Medicin needed for e Sleep. estrogens, Yes 1.25mg Take 1.25 [facility] conjugated, 8-26 mg by [place] (PREMARIN) 08:33: mouth of 1.25 MG 06 daily. Medicin tablet e montelukast Yes 10mg Take 10 mg [facility] (SINGULAIR) - by mouth [facility] 10 MG 08:33: daily. of tablet 06 Medicin e omeprazole Yes 40mg Take 40 mg [facility] (PRILOSEC) 8- by mouth [facility] 40 MG 08:33: daily. of capsule 06 Medicin e MAGNESIUM 2022-0 Yes 1{tbl} Take 1 [facility] OR 8-26 Tablet by [place] 08:33: mouth of 06 daily. Medicin e acetaminoph 2021-0 Yes 1000mg Take 1,000 [facility] en 8-26 mg by [place] (TYLENOL) 08:33: mouth as of 500 mg 06 needed for Medicin tablet Pain. e gabapentin 2021-0 Yes 300mg Take 300 [facility] (NEURONTIN) 8-26 mg by [place] 300 MG 08:33: mouth 3 of capsule 06 times Medicin daily. e oxybutynin 2021-0 Yes 10mg Take 10 mg [facility] (DITROPAN-X 8-26 by mouth [facility] L) 10 MG CR 08:33: as needed. of tablet 06 Medicin e candesartan 2021-0 Yes 16mg Take 16 mg [facility] (ATACAND) 8-26 by mouth [facility] 16 MG 08:33: daily. of tablet 06 Medicin e Cyanocobala 2021-0 Yes 1{tbl} Take 1 [facility] (B-12 8-24 Tablet by [facility] ge OR) 12:47: mouth of 29 daily. Medicin e alprazolam 0 Yes .5mg Take 0.5 [facility] (XANAX) 0.5 8-24 mg by [place] MG tablet 12:47: mouth of 29 nightly as Medicin needed for e Sleep. estrogens, 2021-0 Yes 1.25mg Take 1.25 [facility] conjugated, 8-24 mg by [place] (PREMARIN) 12:47: mouth of 1.25 MG 29 daily. Medicin tablet e montelukast 2021-0 Yes 10mg Take 10 mg [facility] (SINGULAIR) 8-24 by mouth [facility] 10 MG 12:47: daily. of tablet 29 Medicin e omeprazole 2021-0 Yes 40mg Take 40 mg [facility] (PRILOSEC) 8-24 by mouth [facility] 40 MG 12:47: daily. of capsule 29 Medicin e MAGNESIUM 2021-0 Yes 1{tbl} Take 1 [facility] OR 8-24 Tablet by [place] 12:47: mouth of 29 daily. Medicin e acetaminoph 2021-0 Yes 1000mg Take 1,000 [facility] 8-24 mg by [place] (TYLENOL) 12:47: mouth as of 500 mg 29 needed for Medicin tablet Pain. e gabapentin 2021-0 Yes 300mg Take 300 [facility] (NEURONTIN) 8-24 mg by [place] 300 MG 12:47: mouth 3 of capsule 29 times Medicin daily. e oxybutynin 2021-0 Yes 10mg Take 10 mg [facility] (DITROPAN-X 8-24 by mouth [facility] L) 10 MG CR 12:47: as needed. of tablet 29 Medicin e candesartan 2021-0 Yes 16mg Take 16 mg [facility] (ATACAND) 8-24 by mouth [facility] 16 MG 12:47: daily. of tablet 29 Medicin e Cyanocobala 2021-0 Yes 1{tbl} Take 1 [facility] (B-12 8-24 Tablet by [facility] ge OR) 11:03: mouth of 10 daily. Medicin e alprazolam 2021-0 Yes .5mg Take 0.5 [facility] (XANAX) 0.5 8-24 mg by [place] MG tablet 11:03: mouth of 10 nightly as Medicin needed for e Sleep. estrogens, 2021-0 Yes 1.25mg Take 1.25 [facility] conjugated, 8-24 mg by [place] (PREMARIN) 11:03: mouth of 1.25 MG 10 [...] 1 [facility] OR 8-24 Tablet by [place] 11:03: mouth of 10 daily. Medicin e acetaminoph 2021-0 Yes 1000mg Take 1,000 [facility] 8-24 mg by [place] (TYLENOL) 11:03: mouth as of 500 mg 10 needed for Medicin tablet Pain. e gabapentin 2021-0 Yes 300mg Take 300 [facility] (NEURONTIN) 8-24 mg by [place] 300 MG 11:03: mouth 3 of capsule 10 times Medicin daily. e oxybutynin 2022-0 Yes 10mg Take 10 mg [facility] (DITROPAN-X 8-24 by mouth [facility] L) 10 MG CR 11:03: as needed. of tablet 10 Medicin e candesartan 2021-0 Yes 16mg Take 16 mg [facility] (ATACAND) 8-24 by mouth [facility] 16 MG 11:03: daily. of tablet 10 Medicin e albuterol 0 Yes 2{puff} Inhale [address] HFA 8-24 puffs by [facility] (VENTOLIN 00:00: mouth via Med ical HFA) 90 00 inhaler as Center mcg/actuati needed for on inhaler Wheezing or Shortness of Breath . busPIRone 2021-0 Yes 10mg Q.5D Take [address] [facility] [address] [facility] (BUSPAR) 10 8-24 by mouth 2 [facility] k[facility] MG tablet 00:00: (two) Medical 00 times Center daily. fluticasone 2021-0 Yes 1{puff} Take [address] propion-tutu 8-24 puff by [facility] meteroL 00:00: mouth Medical (ADVAIR) 00 every 12 Center 250-50 (twelve) mcg/dose hours. diskus inhaler albuterol 2021-0 Yes 2{puff} Inhale [address] HFA 8-24 puffs by [facility] (VENTOLIN 00:00: mouth via Med ical HFA) 90 00 inhaler as Center mcg/actuati needed for on inhaler Wheezing or Shortness of Breath . busPIRone 2021-0 Yes 10mg Q.5D Take [address] [facility] [address] [facility] (BUSPAR) 10 8-24 by mouth 2 Marybeth kes MG tablet 00:00: (two) Medical 00 times Center daily. fluticasone 2021-0 Yes 1{puff} Take [address] propion-tutu 8-24 puff by [facility] meteroL 00:00: mouth Medical (ADVAIR) 00 every 12 Center 250-50 (twelve) mcg/dose hours. diskus inhaler albuterol 2021-0 Yes 2{puff} Inhale [address] HFA 8-24 puffs by [facility] (VENTOLIN 00:00: mouth via Med ical HFA) 90 00 inhaler as Center mcg/actuati needed for on inhaler Wheezing or Shortness of Breath . busPIRone 2-0 Yes 10mg Q.5D Take [address] [facility] [address] [facility] (BUSPAR) 10 8-24 by mouth 2 [facility]beth kes MG tablet 00:00: (two) Medical 00 times Center daily. fluticasone 2-0 Yes 1{puff} Take [address] propion-tutu 8-24 puff by [facility] meteroL 00:00: mouth Medical (ADVAIR) 00 every 12 Center 250-50 (twelve) mcg/dose hours. diskus inhaler albuterol 2021-0 Yes 2{puff} Inhale [address] HFA 8-24 puffs by [facility] (VENTOLIN 00:00: mouth via Med ical HFA) 90 00 inhaler as Center mcg/actuati needed for on inhaler Wheezing or Shortness of Breath . busPIRone 2-0 Yes 10mg Q.5D Take [address] [facility] [address] [facility] (BUSPAR) 10 8-24 by mouth 2 [facility]beth kes MG tablet 00:00: (two) Medical 00 times Center daily. fluticasone 2021-0 Yes 1{puff} Take [address] propion-tutu 8-24 puff by [facility] meteroL 00:00: mouth Medical (ADVAIR) 00 every 12 Center 250-50 (twelve) mcg/dose hours. diskus inhaler albuterol 2021-0 Yes 2{puff} Inhale [address] HFA 8-24 puffs by [facility] (VENTOLIN 00:00: mouth via Med ical HFA) 90 00 inhaler as Center mcg/actuati needed for on inhaler Wheezing or Shortness of Breath . busPIRone 2-0 Yes 10mg Q.5D Take [address] [facility] [address] [facility] (BUSPAR) 10 8-24 by mouth 2 Marybeth kes MG tablet 00:00: (two) Medical 00 times Center daily. fluticasone 2022-0 Yes 1{puff} Take [address] propion-tutu 8-24 puff by [facility] meteroL 00:00: mouth Medical (ADVAIR) 00 every 12 Center 250-50 (twelve) mcg/dose hours. diskus inhaler albuterol 2-0 Yes 2{puff} Inhale [address] HFA 8-24 puffs by [facility] (VENTOLIN 00:00: mouth via Med ical HFA) 90 00 inhaler as Center mcg/actuati needed for on inhaler Wheezing or Shortness of Breath . busPIRone 2021-0 Yes 10mg Q.5D Take [address] [facility] [address] [facility] (BUSPAR) 10 8-24 by mouth 2 Marybeth kes MG tablet 00:00: (two) Medical 00 times Center daily. fluticasone 2021-0 Yes 1{puff} Take [address] propion-tutu 8-24 puff by [facility] meteroL 00:00: mouth Medical (ADVAIR) 00 every 12 Center 250-50 (twelve) mcg/dose hours. diskus inhaler albuterol 2021-0 Yes SMARTSIG:V [facility] HFA 8-24 ia Inhaler [facility] (VENTOLIN 00:00: Medical HFA) 90 00 Center mcg/actuati on inhaler busPIRone 2021-0 Yes 10mg Q.5D Take [address] [facility] [address] [facility] (BUSPAR) 10 8-24 by mouth 2 Marybeth kes MG tablet 00:00: (two) Medical 00 times Center daily. fluticasone 2021-0 Yes 1{puff} Take [address] propion-tutu 8-24 puff by [facility] meteroL 00:00: mouth Medical (ADVAIR) 00 every 12 Center 250-50 (twelve) mcg/dose hours. diskus inhaler albuterol 2021-0 Yes SMARTSIG:V [facility] HFA 8-24 ia Inhaler [facility] (VENTOLIN 00:00: Medical HFA) 90 00 Center mcg/actuati on inhaler busPIRone 2021-0 Yes 10mg Q.5D Take [address] [facility] [address] [facility] (BUSPAR) 10 8-24 by mouth 2 Marybeth kes MG tablet 00:00: (two) Medical 00 times Center daily. fluticasone 2021-0 Yes 1{puff} Take [address] propion-tutu 8-24 puff by [facility] meteroL 00:00: mouth Medical (ADVAIR) 00 every 12 Center 250-50 (twelve) mcg/dose hours. diskus inhaler albuterol 2021-0 Yes 2{puff} Inhale [address] HFA 8-24 puffs by [facility] (VENTOLIN 00:00: mouth via Med ical HFA) 90 00 inhaler as Center mcg/actuati needed for on inhaler Wheezing or Shortness of Breath . busPIRone 2-0 Yes 10mg Q.5D Take [address] [facility] [address] [facility] (BUSPAR) 10 8-24 by mouth 2 Marybeth kes MG tablet 00:00: (two) Medical 00 times Center daily. fluticasone 2-0 Yes 1{puff} Take [address] propion-tutu 8-24 puff by [facility] meteroL 00:00: mouth Medical (ADVAIR) 00 every 12 Center 250-50 (twelve) mcg/dose hours. diskus inhaler albuterol 2021-0 Yes 2{puff} Inhale [address] HFA 8-24 puffs by [facility] (VENTOLIN 00:00: mouth via Med ical HFA) 90 00 inhaler as Center mcg/actuati needed for on inhaler Wheezing or Shortness of Breath . busPIRone 2-0 Yes 10mg Q.5D Take [address] [facility] [address] [facility] (BUSPAR) 10 8-24 by mouth 2 Marybeth kes MG tablet 00:00: (two) Medical 00 times Center daily. fluticasone 2-0 Yes 1{puff} Take [address] propion-tutu 8-24 puff by [facility] meteroL 00:00: mouth Medical (ADVAIR) 00 every 12 Center 250-50 (twelve) mcg/dose hours. diskus inhaler albuterol 2021-0 Yes 2{puff} Inhale [address] HFA 8-24 puffs by [facility] (VENTOLIN 00:00: mouth via Med ical HFA) 90 00 inhaler as Center mcg/actuati needed for on inhaler Wheezing or Shortness of Breath . busPIRone 2-0 Yes 10mg Q.5D Take [address] [facility] [address] [facility] (BUSPAR) 10 8-24 by mouth 2 Marybeth kes MG tablet 00:00: (two) Medical 00 times Center daily. fluticasone 2-0 Yes 1{puff} Take [address] propion-tutu 8-24 puff by [facility] meteroL 00:00: mouth Medical (ADVAIR) 00 every 12 Center 250-50 (twelve) mcg/dose hours. diskus inhaler albuterol 2022-0 Yes 2{puff} Inhale [address] HFA 8-24 puffs by [facility] (VENTOLIN 00:00: mouth via Med ical HFA) 90 00 inhaler as Center mcg/actuati needed for on inhaler Wheezing or Shortness of Breath . busPIRone Yes 10mg Q.5D Take [address] [facility] [address] [facility] (BUSPAR) 10 8-24 by mouth 2 Marybeth kes MG tablet 00:00: (two) Medical 00 times Center daily. fluticasone Yes 1{puff} Take [address] propion-tutu 8-24 puff by [facility] meteroL 00:00: mouth Medical (ADVAIR) 00 every 12 Center 250-50 (twelve) mcg/dose hours. diskus inhaler albuterol 0 Yes [id number] 90ug Inhale 1 [facility] 108 (90 8-24 Puff by [facility] [employer] [employer]) 00:00: mouth 2 of mcg/act 00 times Medicin inhaler daily as e needed for Wheezing. Fluticasone 0 Yes [id number] 1{puff} Inhale 1 [facility] -Salmeterol 8-24 Puff by [facility] (ADVAIR) 00:00: mouth of 250-50 00 every 12 Medicin MCG/ACT hours. e inhaler albuterol 0 Yes [id number] 90ug Inhale 1 [facility] 108 (90 8-24 Puff by [employer] [facility]) 00:00: mouth 2 of mcg/act 00 times Medicin inhaler daily as e needed for Wheezing. Fluticasone 0 Yes [id number] 1{puff} Inhale 1 [facility] -Salmeterol 8-24 Puff by [employer] [facility] (ADVAIR) 00:00: mouth of 250-50 00 every 12 Medicin MCG/ACT hours. e inhaler busPIRone 0 Yes 10mg Take 1 [facility] (BUSPAR) 10 8-24 Tablet by [facility] MG tablet 00:00: mouth two of 00 times Medicin daily. e albuterol 0 Yes [id number] 90ug Inhale 1 [facility] 108 (90 8-24 Puff by [employer] [facility]) 00:00: mouth 2 of mcg/act 00 times Medicin inhaler daily as e needed for Wheezing. Fluticasone 2021-0 Yes [id number] 1{puff} Inhale 1 [facility] -Salmeterol 8-24 Puff by [facility] (ADVAIR) 00:00: mouth of 250-50 00 every 12 Medicin MCG/ACT hours. e inhaler busPIRone 2021-0 Yes 10mg Take 1 [facility] (BUSPAR) 10 8-24 Tablet by [facility] MG tablet 00:00: mouth two of 00 times Medicin daily. e albuterol 2021-0 Yes [id number] 90ug Inhale 1 [facility] 108 (90 8-24 Puff by [place] base) 00:00: mouth 2 of mcg/act 00 times Medicin inhaler daily as e needed for Wheezing. Fluticasone 2021-0 Yes [id number] 1{puff} Inhale 1 [facility] -Salmeterol 8-24 Puff by [facility] (ADVAIR) 00:00: mouth of 250-50 00 every 12 Medicin MCG/ACT hours. e inhaler busPIRone 0 Yes 10mg Take 1 [facility] (BUSPAR) 10 8-24 Tablet by [facility] MG tablet 00:00: mouth two of 00 times Medicin daily. e albuterol 2021-0 Yes [id number] 90ug Inhale 1 [facility] 108 (90 8-24 Puff by [place] base) 00:00: mouth 2 of mcg/act 00 times Medicin inhaler daily as e needed for Wheezing. Fluticasone 2021-0 Yes [id number] 1{puff} Inhale 1 [facility] -Salmeterol 8-24 Puff by [facility] (ADVAIR) 00:00: mouth of 250-50 00 every 12 Medicin MCG/ACT hours. e inhaler busPIRone 2021-0 Yes 10mg Take 1 [facility] (BUSPAR) 10 8-24 Tablet by [facility] MG tablet 00:00: mouth two of 00 times Medicin daily. e albuterol 2021-0 Yes [id number] 90ug Inhale 1 [facility] 108 (90 8-24 Puff by [place] base) 00:00: mouth 2 of mcg/act 00 times Medicin inhaler daily as e needed for Wheezing. Fluticasone 2021-0 Yes [id number] 1{puff} Inhale 1 [facility] -Salmeterol 8-24 Puff by [facility] (ADVAIR) 00:00: mouth of 250-50 00 every 12 Medicin MCG/ACT hours. e inhaler busPIRone 2021-0 Yes 10mg Take 1 [facility] (BUSPAR) 10 8-24 Tablet by [facility] MG tablet 00:00: mouth two of 00 times Medicin daily. e albuterol 2021-0 Yes [id number] 90ug Inhale 1 [facility] 108 (90 8-24 Puff by [place] base) 00:00: mouth 2 of mcg/act 00 times Medicin inhaler daily as e needed for Wheezing. Fluticasone 2021-0 Yes [id number] 1{puff} Inhale 1 [facility] -Salmeterol 8-24 Puff by [facility] (ADVAIR) 00:00: mouth of 250-50 00 every 12 Medicin MCG/ACT hours. e inhaler busPIRone 2021-0 Yes 10mg Take 1 [facility] (BUSPAR) 10 8-24 Tablet by [facility] MG tablet 00:00: mouth two of 00 times Medicin daily. e albuterol 2021-0 Yes [id number] 90ug Inhale 1 [facility] 108 (90 8-24 Puff by [place] base) 00:00: mouth 2 of mcg/act 00 times Medicin inhaler daily as e needed for Wheezing. Fluticasone 2021-0 Yes [id number] 1{puff} Inhale 1 [facility] -Salmeterol 8-24 Puff by [facility] [employer] (ADVAIR) 00:00: mouth of 250-50 00 every 12 Medicin MCG/ACT hours. e inhaler busPIRone 2021-0 Yes 10mg Take 1 [facility] (BUSPAR) 10 8-24 Tablet by [facility] MG tablet 00:00: mouth two of 00 times Medicin daily. e albuterol 2021-0 Yes [id number] 90ug Inhale 1 [facility] 108 (90 8-24 Puff by [place]) 00:00: mouth 2 of mcg/act 00 times Medicin inhaler daily as e needed for Wheezing. Fluticasone 2021-0 Yes [id number] 1{puff} Inhale 1 [facility] -Salmeterol 8-24 Puff by [facility] (ADVAIR) 00:00: mouth of 250-50 00 every 12 Medicin MCG/ACT hours. e inhaler busPIRone 2021-0 Yes 10mg Take 1 [facility] (BUSPAR) 10 8-24 Tablet by [facility] MG tablet 00:00: mouth two of 00 times Medicin daily. e albuterol 2021-0 Yes [id number] 90ug Inhale 1 [facility] 108 (90 8-24 Puff by [place]) 00:00: mouth 2 of mcg/act 00 times Medicin inhaler daily as e needed for Wheezing. Fluticasone 2021-0 Yes [id number] 1{puff} Inhale 1 [facility] -Salmeterol 8-24 Puff by [facility] (ADVAIR) 00:00: mouth of 250-50 00 every 12 Medicin MCG/ACT hours. e inhaler busPIRone 2021-0 Yes 10mg Take 1 [facility] (BUSPAR) 10 8-24 Tablet by [facility] MG tablet 00:00: mouth two of 00 times Medicin daily. e albuterol 2021-0 Yes [id number] 90ug Inhale 1 [facility] 108 (90 8-24 Puff by [place] [facility]) 00:00: mouth 2 of mcg/act 00 times Medicin inhaler daily as e needed for Wheezing. Fluticasone 2021-0 Yes [id number] 1{puff} Inhale 1 [facility] -Salmeterol 8-24 Puff by [facility] (ADVAIR) 00:00: mouth of 250-50 00 every 12 Medicin MCG/ACT hours. e inhaler busPIRone 2021-0 Yes 10mg Take 1 [facility] (BUSPAR) 10 8-24 Tablet by [facility] MG tablet 00:00: mouth two of 00 times Medicin daily. e albuterol 2021-0 Yes [id number] 90ug Inhale 1 [facility] 108 (90 8-24 Puff by [place] [facility]) 00:00: mouth 2 of mcg/act 00 times Medicin inhaler daily as e needed for Wheezing. Fluticasone 2021-0 Yes [id number] 1{puff} Inhale 1 [facility] -Salmeterol 8-24 Puff by [employer] [facility] (ADVAIR) 00:00: mouth of 250-50 00 every 12 Medicin MCG/ACT hours. e inhaler busPIRone 2021-0 Yes 10mg Take 1 [facility] (BUSPAR) 10 8-24 Tablet by [facility] MG tablet 00:00: mouth two of 00 times Medicin daily. e albuterol 2021-0 Yes [id number] 90ug Inhale 1 [facility] 108 (90 8-24 Puff by [place] [facility]) 00:00: mouth 2 of mcg/act 00 times Medicin inhaler daily as e needed for Wheezing. Fluticasone 2021-0 Yes [id number] 1{puff} Inhale 1 [facility] -Salmeterol 8-24 Puff by [facility] (ADVAIR) 00:00: mouth of 250-50 00 every 12 Medicin MCG/ACT hours. e inhaler busPIRone 2021-0 Yes 10mg Take 1 [facility] (BUSPAR) 10 8-24 Tablet by [facility] MG tablet 00:00: mouth two of 00 times Medicin daily. e albuterol 2021-0 Yes [id number] 90ug Inhale 1 [facility] 108 (90 8-24 Puff by [place] [facility]) 00:00: mouth 2 of mcg/act 00 times Medicin inhaler daily as e needed for Wheezing. Fluticasone 2021-0 Yes [id number] 1{puff} Inhale 1 [facility] -Salmeterol 8-24 Puff by [facility] (ADVAIR) 00:00: mouth of 250-50 00 every 12 Medicin MCG/ACT hours. e inhaler busPIRone 2021-0 Yes 10mg Take 1 [facility] (BUSPAR) 10 8-24 Tablet by [facility] MG tablet 00:00: mouth two of 00 times Medicin daily. e albuterol 2021-0 Yes [id number] 90ug Inhale 1 [facility] 108 (90 8-24 Puff by [place] [facility]) 00:00: mouth 2 of mcg/act 00 times Medicin inhaler daily as e needed for Wheezing. Fluticasone 2021-0 Yes [id number] 1{puff} Inhale 1 [facility] -Salmeterol 8-24 Puff by [facility] (ADVAIR) 00:00: mouth of 250-50 00 every 12 Medicin MCG/ACT hours. e inhaler albuterol 2021-0 Yes [id number] 90ug Inhale 1 [facility] 108 (90 8-24 Puff by [facility]) 00:00: mouth 2 of mcg/act 00 times Medicin inhaler daily as e needed for Wheezing. Fluticasone Yes [id number] 1{puff} Inhale 1 [facility] -Salmeterol 8-24 Puff by [place] [facility] (ADVAIR) 00:00: mouth of 250-50 00 every 12 Medicin MCG/ACT hours. e inhaler albuterol Yes [id number] 90ug Inhale 1 [facility] 108 (90 8-24 Puff by [facility]) 00:00: mouth 2 of mcg/act 00 times Medicin inhaler daily as e needed for Wheezing. albuterol Yes 2{puff} Inhale [address] HFA 8-24 puffs by [facility] (VENTOLIN 00:00: mouth via Med ical HFA) 90 00 inhaler as Center mcg/actuati needed for on inhaler Wheezing or Shortness of Breath . busPIRone Yes 10mg Q.5D Take [address] [facility] [address] [facility] (BUSPAR) 10 8-24 by mouth 2 Marybeth kes MG tablet 00:00: (two) Medical 00 times Center daily. fluticasone Yes 1{puff} Take [address] propion-tutu 8-24 puff by [facility] meteroL 00:[facility]: mouth Medical (ADVAIR) 00 every 12 Center 250-50 (twelve) mcg/dose hours. diskus inhaler Fluticasone 3- No [id number] 1{puff} Inhale 1 [facility] -Salmeterol 8-24 05-01 Puff by [facility] (ADVAIR) 00:00: 00:00 mouth of 250-50 00 :00 every 12 Medicin MCG/ACT hours. e inhaler eplerenone 0 Yes 25mg QD Take [address] (INSPRA) 25 8-06 by mouth [facility] MG tablet 00:00: daily. Medica l 00 Center eplerenone 0 Yes 25mg QD Take [address] (INSPRA) 25 8-06 by mouth [facility] MG tablet 00:00: daily. Medica l Center eplerenone 0 Yes 25mg QD Take [address] (INSPRA) 25 8-06 by mouth [facility] MG tablet 00:00: daily. [address] eplerenone 0 Yes 25mg QD Take [address] (INSPRA) 25 8-06 by mouth [facility] MG tablet 00:00: daily. [address] eplerenone 0 Yes 25mg QD Take [address] (INSPRA) 25 8-06 by mouth [facility] MG tablet 00:00: daily. [address] eplerenone 0 Yes 25mg QD Take [address] (INSPRA) 25 8-06 by mouth [facility] MG tablet 00:00: daily. [address] eplerenone 0 Yes 25mg QD Take [address] (INSPRA) 25 8-06 by mouth [facility] MG tablet 00:00: daily. [address] eplerenone 0 Yes 25mg QD Take [address] (INSPRA) 25 8-06 by mouth [facility] MG tablet 00:00: daily. [address] eplerenone 0 Yes 25mg QD Take [address] (INSPRA) 25 8-06 by mouth [facility] MG tablet 00:00: daily. [address] eplerenone 0 Yes 25mg QD Take [address] (INSPRA) 25 8-06 by mouth [facility] MG tablet 00:00: daily. [address] eplerenone 0 Yes 25mg QD Take [address] (INSPRA) 25 8-06 by mouth [facility] MG tablet 00:00: daily. [address] eplerenone 0 Yes 25mg QD Take [address] (INSPRA) 25 8-06 by mouth [facility] MG tablet 00:00: daily. [address] eplerenone 0 Yes 25mg QD Take [address] (INSPRA) 25 8-06 by mouth [facility] MG tablet 00:00: daily. [address] Cabometyx Yes 1{tbl} QD Take [address] [facility] 40 mg Tab 8-05 tablet by [facility]: mouth Medical 00 daily. [place] Cabometyx Yes 1{tbl} QD Take [address] [facility] 40 mg Tab 8-05 tablet by [facility] 00:00: mouth Medical 00 daily. [place] Cabometyx 2021- No 1{tbl} QD Take [address] [facility] 40 mg Tab 8-05 11-04 tablet by [facility] 00:00: 00:00 mouth Medical 00 :00 daily. [place] Cabometyx 2021- No 1{tbl} QD Take [address] [facility] 40 mg Tab 8-05 11-04 tablet by [facility] 00:00: 00:00 mouth Medical 00 :00 daily. [place] Cabometyx 2021- No 1{tbl} QD Take [address] [facility] 40 mg Tab 8-05 11-04 tablet by Jair s 00:00: 00:00 mouth Medical 00 :00 daily. [place] Cabometyx 2021- No 1{tbl} QD Take [address] [facility] 40 mg Tab 8-05 11-04 tablet by Jair s 00:00: 00:00 mouth Medical 00 :00 daily. [place] Cabometyx 2021- No 1{tbl} QD Take [address] [facility] 40 mg Tab 8-05 11-04 tablet by Jair s 00:00: 00:00 mouth Medical 00 :00 daily. [place] Cabometyx 2021- No 1{tbl} QD Take [address] [facility] 40 mg Tab 8-05 11-04 tablet by Jair s 00:00: 00:00 mouth Medical 00 :00 daily. [place] Cabometyx 2021- No 1{tbl} QD Take [address] [facility] 40 mg Tab 8-05 11-04 tablet by [facility] 00:00: 00:00 mouth Medical 00 :00 daily. [place] Cabometyx 2021- No 1{tbl} QD Take [address] [facility] 40 mg Tab 8-05 11-04 tablet by [facility] 00:00: 00:00 mouth Medical 00 :00 daily. [place] Cabometyx 2021- No 1{tbl} QD Take [address] [facility] 40 mg Tab 8-05 11-04 tablet by [facility] 00:00: 00:00 mouth Medical 00 :00 daily. [place] Cabometyx 2021- No 1{tbl} QD Take [address] [facility] 40 mg Tab 11-05 tablet by [facility] 00:00: 00:00 mouth Medical 00 :00 daily. [place] Cabometyx 2021- No 1{tbl} QD Take [address] [facility] 40 mg Tab 11-05 tablet by [facility] 00:00: 00:00 mouth Medical 00 :00 daily. [place] Cyanocobala Yes 1{tbl} Take 1 [facility] (B-12 7-29 Tablet by [facility] OR) 09:51: mouth of 35 daily. Medicin e alprazolam Yes .5mg Take 0.5 [facility] (XANAX) 0.5 7-29 mg by [place] MG tablet 09:51: mouth of 35 nightly as Medicin needed for e Sleep. estrogens, Yes 1.25mg Take 1.25 [facility] conjugated, 7-29 mg by [place] (PREMARIN) 09:51: mouth of 1.25 MG 35 daily. Medicin tablet e montelukast Yes 10mg Take 10 mg [facility] (SINGULAIR) 7-29 by mouth [facility] 10 MG 09:51: daily. of tablet 35 Medicin e omeprazole Yes 40mg Take 40 mg [facility] (PRILOSEC) 7-29 by mouth [facility] 40 MG 09:51: daily. of capsule 35 Medicin e MAGNESIUM 0 Yes 1{tbl} Take 1 [facility] [place] 7-29 Tablet by [place] 09:51: mouth of 35 daily. Medicin e acetaminoph 0 Yes 1000mg Take 1,000 [facility] en 7-29 mg by [place] (TYLENOL) 09:51: mouth as of 500 mg 35 needed for Medicin tablet Pain. e gabapentin 0 Yes 300mg Take 300 [facility] (NEURONTIN) 7-29 mg by [place] 300 MG 09:51: mouth 3 of capsule 35 times Medicin daily. e oxybutynin 0 Yes 10mg Take 10 mg [facility] (DITROPAN-X 7-29 by mouth Suad ege L) 10 MG CR 09:51: as needed. of tablet 35 Medicin e candesartan 0 Yes 16mg Take 16 mg [facility] (ATACAND) 7-29 by mouth [facility] 16 MG 09:51: daily. of tablet 35 Medicin e Cyanocobala Yes 1{tbl} Take 1 [facility] (B-12 7-29 Tablet by [facility] OR) 09:51: mouth of 35 daily. Medicin e alprazolam 0 Yes .5mg Take 0.5 [facility] (XANAX) 0.5 7-29 mg by [place] MG tablet 09:51: mouth of 35 nightly as Medicin needed for e Sleep. estrogens, 0 Yes 1.25mg Take 1.25 [facility] conjugated, 7-29 mg by [place] (PREMARIN) 09:51: mouth of 1.25 MG 35 daily. Medicin tablet e montelukast 0 Yes 10mg Take 10 mg [facility] (SINGULAIR) 7-29 by mouth [facility] 10 MG 09:51: daily. of tablet 35 Medicin e omeprazole Yes 40mg Take 40 mg [facility] (PRILOSEC) 7-29 by mouth [facility] 40 MG 09:51: daily. of capsule 35 Medicin e MAGNESIUM 0 Yes 1{tbl} Take 1 [facility] [place] 7-29 Tablet by [place] 09:51: mouth of 35 daily. Medicin e acetaminoph Yes 1000mg Take 1,000 [facility] 7-29 mg by [place] (TYLENOL) 09:51: mouth as of 500 mg 35 needed for Medicin tablet Pain. e gabapentin 0 Yes 300mg Take 300 [facility] (NEURONTIN) 7-29 mg by [place] 300 MG 09:51: mouth 3 of capsule 35 times Medicin daily. e oxybutynin 0 Yes 10mg Take 10 mg [facility] (DITROPAN-X 7-29 by mouth Suad ege L) 10 MG CR 09:51: as needed. of tablet 35 Medicin e candesartan 0 Yes 16mg Take 16 mg [facility] (ATACAND) 7-29 by mouth [facility] 16 MG 09:51: daily. of tablet 35 Medicin e traMADoL 0 Yes 1{tbl} [facility] 1 [facility] 7-29 tablet by [facility] mg tablet 00:00: mouth Medical 00 every 6 Center (six) hours as needed. traMADoL 2021-0 Yes 1{tbl} Take 1 [facility] ([facility]TR[facility] 7-29 tablet by [facility] mg tablet 00:00: mouth Medical 00 every 6 Center (six) hours as needed. traMADoL 2021-0 Yes 1{tbl} Take 1 [facility] (ULTRAM) 50 7-29 tablet by [facility] mg tablet 00:00: mouth Medical 00 every 6 Center (six) hours as needed. traMADoL 0 Yes 1{tbl} Take 1 [facility] (ULTRAM) 50 7-29 tablet by [facility] mg tablet 00:00: mouth Medical 00 every 6 Center (six) hours as needed. traMADoL 0 Yes 1{tbl} Take 1 [facility] (ULTRAM) 50 7-29 tablet by [facility] mg tablet 00:00: mouth Medical 00 every 6 Center (six) hours as needed. traMADoL Yes 1{tbl} Take 1 [facility] (ULTRAM) 50 7-29 tablet by [facility] mg tablet 00:00: mouth Medical 00 every 6 Center (six) hours as needed. traMADoL 0 Yes 1{tbl} Take 1 [facility] (ULTRAM) 50 7-29 tablet by [facility] mg tablet 00:00: mouth Medical 00 every 6 Center (six) hours as needed. traMADoL 0 Yes 1{tbl} Take 1 [facility] (ULTRAM) 50 7-29 tablet by [facility] mg tablet 00:00: mouth Medical 00 every 6 Center (six) hours as needed. traMADoL 0 Yes 1{tbl} Take 1 [facility] (ULTRAM) 50 7-29 tablet by [facility] mg tablet 00:00: mouth Medical 00 every 6 Center (six) hours as needed. traMADoL 2021-0 Yes 1{tbl} Take 1 [facility] (ULTRAM) 50 7-29 tablet by [facility] mg tablet 00:00: mouth Medical 00 every 6 Center (six) hours as needed. traMADoL 2021-0 Yes 1{tbl} Take 1 [facility] (ULTRAM) 50 7-29 tablet by [facility] mg tablet 00:00: mouth Medical 00 every 6 Center (six) hours as needed. traMADoL 2022-0 Yes 1{tbl} Take 1 [facility] (ULTRAM[facility] 50 7-29 tablet by [facility] mg tablet 00:00: mouth Medical 00 every 6 Center (six) hours as needed. tramadol 2021-0 Yes [id number] 1{tbl} Take 1 [facility] (ULTRAM) 50 7-29 102 Tablet by [facility] MG tablet 00:00: mouth of 00 every 6 Medicin hours as e needed for Pain. busPIRone 2022-0 Yes 5mg Take 1 [facility] (BUSPAR) 5 7-29 Tablet by Suad ege MG tablet 00:00: mouth two of 00 times Medicin daily. e tramadol 2021-0 Yes [id number] 1{tbl} Take 1 [facility] (ULTRAM) 50 7-29 102 Tablet by [facility] MG tablet 00:00: mouth of 00 every 6 Medicin hours as e needed for Pain. busPIRone 2021-0 Yes 5mg Take 1 [facility] (BUSPAR) 5 7-29 Tablet by Su[facility] e[facility] MG tablet 00:00: mouth two of 00 times Medicin daily. e verapamil 2021-0 Yes 240mg Take 1 [facility] (CALAN-SR) 7-29 Tablet by Suad ege 240 MG CR 00:00: mouth of tablet 00 daily. Medicin e lovastatin 2021-0 Yes 20mg Take 1 [facility] (MEVACOR) 7-29 Tablet by [facility] ge 20 MG 00:00: mouth of tablet 00 every Medicin evening. e azithromyci 2021-0 Yes 500mg Take 500 [facility] 7-29 mg by [place] (ZITHROMAX) 00:00: mouth 3 of 500 MG 00 times Medicin tablet weekly. e ethambutol 2021-0 Yes 1200mg Take 1,200 [facility] (MYAMBUTOL) 7-29 mg by [place] 400 MG 00:00: mouth 3 of tablet 00 times Medicin weekly. e tramadol 2-0 Yes [id number] 1{tbl} Take 1 [facility] (ULTRAM) 50 7-29 102 Tablet by [facility] MG tablet 00:00: mouth of 00 every 6 Medicin hours as e needed for Pain. busPIRone 2022-0 Yes 5mg Take 1 [facility] (BUSPAR) 5 7-29 Tablet by Su[facility] e[facility] MG tablet 00:00: mouth two of 00 times Medicin daily. e verapamil 2022-0 Yes 240mg Take 1 [facility] (CALAN-SR) 7-29 Tablet by Su[facility] 240 MG CR 00:00: mouth of tablet 00 daily. Medicin e lovastatin 2-0 Yes 20mg Take 1 [facility] (MEVACOR) 7-29 Tablet by [facility] 20 MG 00:00: mouth of tablet 00 every Medicin evening. e azithromyci 2022-0 Yes 500mg Take 500 [facility] 7-29 mg by [place] (ZITHROMAX) 00:00: mouth 3 of 500 MG 00 times Medicin tablet weekly. e ethambutol 2021-0 Yes 1200mg Take 1,200 [facility] (MYAMBUTOL) 7-29 mg by [place] 400 MG 00:00: mouth 3 of tablet 00 times Medicin weekly. e tramadol 2021-0 Yes [id number] 1{tbl} Take 1 [facility] (ULTRAM) 50 7-29 102 Tablet by [facility] MG tablet 00:00: mouth of 00 every 6 Medicin hours as e needed for Pain. busPIRone 2-0 Yes 5mg Take 1 [facility] (BUSPAR) 5 7-29 Tablet by [facility] MG tablet 00:00: mouth two of 00 times Medicin daily. e verapamil 2-0 Yes 240mg Take 1 [facility] (CALAN-SR) 7-29 Tablet by Su[facility] 240 MG CR 00:00: mouth of tablet 00 daily. Medicin e lovastatin 2-0 Yes 20mg Take 1 [facility] (MEVACOR) 7-29 Tablet by [facility] 20 MG 00:00: mouth of tablet 00 every Medicin evening. e azithromyci 2-0 Yes 500mg Take 500 [facility] 7-29 mg by [place] (ZITHROMAX) 00:00: mouth 3 of 500 MG 00 times Medicin tablet weekly. e ethambutol 2-0 Yes 1200mg Take 1,200 [facility] (MYAMBUTOL) 7-29 mg by [place] 400 MG 00:00: mouth 3 of tablet 00 times Medicin weekly. e tramadol 2-0 Yes [id number] 1{tbl} Take 1 [facility] (ULTRAM) 50 7-29 [...] 500 [facility] 7-29 mg by [place] (ZITHROMAX) 00:00: mouth 3 of 500 MG 00 times Medicin tablet weekly. e ethambutol 2022-0 Yes 1200mg Take 1,200 [facility] (MYAMBUTOL) 7-29 mg by [place] 400 MG 00:00: mouth 3 of tablet 00 times Medicin weekly. e tramadol 2022-0 Yes [id number] 1{tbl} Take 1 [facility] (ULTRAM) 50 7-29 [...] 500 [facility] 7-29 mg by [place] (ZITHROMAX) 00:00: mouth 3 of 500 MG 00 times Medicin tablet weekly. e ethambutol 2022-0 Yes 1200mg Take 1,200 [facility] (MYAMBUTOL) 7-29 mg by [place] 400 MG 00:00: mouth 3 of tablet 00 times Medicin weekly. e tramadol 2-0 Yes [id number] 1{tbl} Take 1 [facility] (ULTRAM) 50 7-29 102 Tablet by [facility] MG tablet 00:00: mouth of 00 every 6 Medicin hours as e needed for Pain. busPIRone 2022-0 Yes 5mg Take 1 [facility] (BUSPAR) 5 7-29 Tablet by [facility] MG tablet 00:00: mouth two of 00 times Medicin daily. e verapamil 2-0 Yes 240mg Take 1 [facility] (CALAN-SR) 7-29 Tablet by [facility] 240 MG CR 00:00: mouth of tablet 00 daily. Medicin e lovastatin 2-0 Yes 20mg Take 1 [facility] (MEVACOR) 7-29 Tablet by [facility] 20 MG 00:00: mouth of tablet 00 every Medicin evening. e azithromyci 2021-0 Yes 500mg Take 500 [facility] 7-29 mg by [place] (ZITHROMAX) 00:00: mouth 3 of 500 MG 00 times Medicin tablet weekly. e ethambutol 2021-0 Yes 1200mg Take 1,200 [facility] (MYAMBUTOL) 7-29 mg by [place] 400 MG 00:00: mouth 3 of tablet 00 times Medicin weekly. e tramadol 2-0 Yes [id number] 1{tbl} Take 1 [facility] (ULTRAM) 50 7-29 102 Tablet by [facility] MG tablet 00:00: mouth of 00 every 6 Medicin hours as e needed for Pain. verapamil 2022-0 Yes 240mg Take 1 [facility] (CALAN-SR) 7-29 Tablet by [facility] 240 MG CR 00:00: mouth of tablet 00 daily. Medicin e lovastatin 2022-0 Yes 20mg Take 1 [facility] (MEVACOR) 7-29 Tablet by [facility] 20 MG 00:00: mouth of tablet 00 every Medicin evening. e azithromyci 2022-0 Yes 500mg Take 500 [facility] 7-29 mg by [place] (ZITHROMAX) 00:00: mouth 3 of 500 MG 00 times Medicin tablet weekly. e ethambutol 2021-0 Yes 1200mg Take 1,200 [facility] (MYAMBUTOL) 7-29 mg by [place] 400 MG 00:00: mouth 3 of tablet 00 times Medicin weekly. e tramadol 2021-0 Yes [id number] 1{tbl} Take 1 [facility] (ULTRAM) 50 7-29 102 Tablet by [facility] MG tablet 00:00: mouth of 00 every 6 Medicin hours as e needed for Pain. verapamil 2022-0 Yes 240mg Take 1 [facility] (CALAN-SR) 7-29 Tablet by [facility] 240 MG CR 00:00: mouth of tablet 00 daily. Medicin e lovastatin 2021-0 Yes 20mg Take 1 [facility] (MEVACOR) 7-29 Tablet by [facility] 20 MG 00:00: mouth of tablet 00 every Medicin evening. e azithromyci 2021-0 Yes 500mg Take 500 [facility] 7-29 mg by [place] (ZITHROMAX) 00:00: mouth 3 of 500 MG 00 times Medicin tablet weekly. e ethambutol 2021-0 Yes 1200mg Take 1,200 [facility] (MYAMBUTOL) 7-29 mg by [place] 400 MG 00:00: mouth 3 of tablet 00 times Medicin weekly. e tramadol 2021-0 Yes [id number] 1{tbl} Take 1 [facility] (ULTRAM) 50 7-29 102 Tablet by [facility] MG tablet 00:00: mouth of 00 every 6 Medicin hours as e needed for Pain. verapamil 2-0 Yes 240mg Take 1 [facility] (CALAN-SR) 7-29 Tablet by [facility] 240 MG CR 00:00: mouth of tablet 00 daily. Medicin e lovastatin 2-0 Yes 20mg Take 1 [facility] (MEVACOR) 7-29 Tablet by [facility] 20 MG 00:00: mouth of tablet 00 every Medicin evening. e tramadol 2022-0 Yes [id number] 1{tbl} Take 1 [facility] (ULTRAM) 50 7-29 102 Tablet by [facility] MG tablet 00:00: mouth of 00 every 6 Medicin hours as e needed for Pain. verapamil 2022-0 Yes 240mg Take 1 [facility] (CALAN-SR) 7-29 Tablet by [facility] 240 MG CR 00:00: mouth of tablet 00 daily. Medicin e lovastatin 2022-0 Yes 20mg Take 1 [facility] (MEVACOR) 7-29 Tablet by [facility] 20 MG 00:00: mouth of tablet 00 every Medicin evening. e tramadol 2022-0 Yes [id number] 1{tbl} Take 1 [facility] (ULTRAM) 50 7-29 102 Tablet by [facility] MG tablet 00:00: mouth of 00 every 6 Medicin hours as e needed for Pain. verapamil 2022-0 Yes 240mg Take 1 [facility] (CALAN-SR) 7-29 Tablet by [facility] 240 MG CR 00:00: mouth of tablet 00 daily. Medicin e lovastatin 2022-0 Yes 20mg Take 1 [facility] (MEVACOR) 7-29 Tablet by [facility] 20 MG 00:00: mouth of tablet 00 every Medicin evening. e tramadol 2022-0 Yes [id number] 1{tbl} Take 1 [facility] (ULTRAM) 50 7-29 102 Tablet by [facility] MG tablet 00:00: mouth of 00 every 6 Medicin hours as e needed for Pain. verapamil 2022-0 Yes 240mg Take 1 [facility] (CALAN-SR) 7-29 Tablet by [facility] 240 MG CR 00:00: mouth of tablet 00 daily. Medicin e lovastatin 2022-0 Yes 20mg Take 1 [facility] (MEVACOR) 7-29 Tablet by [facility] 20 MG 00:00: mouth of tablet 00 every Medicin evening. e tramadol 2022-0 Yes [id number] 1{tbl} Take 1 [facility] (ULTRAM) 50 7-29 102 Tablet by [facility] MG tablet 00:00: mouth of 00 every 6 Medicin hours as e needed for Pain. verapamil 2022-0 Yes 240mg Take 1 [facility] (CALAN-SR) 7-29 Tablet by [facility] 240 MG CR 00:00: mouth of tablet 00 daily. Medicin e lovastatin 2022-0 Yes 20mg Take 1 [facility] (MEVACOR) 7-29 Tablet by [facility] 20 MG 00:00: mouth of tablet 00 every Medicin evening. e tramadol 2022-0 Yes [id number] 1{tbl} Take 1 [facility] (ULTRAM) 50 7-29 102 Tablet by [facility] MG tablet 00:00: mouth of 00 every 6 Medicin hours as e needed for Pain. verapamil 2022-0 Yes 240mg Take 1 [facility] (CALAN-SR) 7-29 Tablet by [facility] 240 MG CR 00:00: mouth of tablet 00 daily. Medicin e lovastatin 2022-0 Yes 20mg Take 1 [facility] (MEVACOR) 7-29 Tablet by [facility] 20 MG 00:00: mouth of tablet 00 every Medicin evening. e tramadol 2022-0 Yes [id number] 1{tbl} Take 1 [facility] (ULTRAM) 50 7-29 102 Tablet by [facility] MG tablet 00:00: mouth of 00 every 6 Medicin hours as e needed for Pain. verapamil 2022-0 Yes 240mg Take 1 [facility] (CALAN-SR) 7-29 Tablet by [facility] 240 MG CR 00:00: mouth of tablet 00 daily. Medicin e lovastatin 2022-0 Yes 20mg Take 1 [facility] (MEVACOR) 7-29 Tablet by [facility] 20 MG 00:00: mouth of tablet 00 every Medicin evening. e tramadol 2022-0 Yes [id number] 1{tbl} Take 1 [facility] (ULTRAM) 50 7-29 102 Tablet by [facility] MG tablet 00:00: mouth of 00 every 6 Medicin hours as e needed for Pain. verapamil 2022-0 Yes 240mg Take 1 [facility] (CALAN-SR) 7-29 Tablet by [facility] 240 MG CR 00:00: mouth of tablet 00 daily. Medicin e lovastatin 2022-0 Yes 20mg Take 1 [facility] (MEVACOR) 7-29 Tablet by [facility] 20 MG 00:00: mouth of tablet 00 every Medicin evening. e tramadol 2022-0 Yes [id number] 1{tbl} Take 1 [facility] (ULTRAM) 50 7-29 102 Tablet by [facility] MG tablet 00:00: mouth of 00 every 6 Medicin hours as e needed for Pain. verapamil 2022-0 Yes 240mg Take 1 [facility] (CALAN-SR) 7-29 Tablet by [facility] 240 MG CR 00:00: mouth of tablet 00 daily. Medicin e lovastatin 2022-0 Yes 20mg Take 1 [facility] (MEVACOR) 7-29 Tablet by [facility] 20 MG 00:00: mouth of tablet 00 every Medicin evening. e traMADoL Yes 1{tbl} Take 1 [facility] ([facility] 7-29 tablet by [facility] mg tablet 00:00: mouth Medical 00 every 6 Center (six) hours as needed. azithromyci 2021- No 250mg Take 250 [facility] 7-29 10-27 mg by [place] (ZITHROMAX) 00:00: 00:00 mouth 3 of 500 MG 00 :00 times Medicin tablet weekly. e ethambutol 2021- No 1200mg Take 1,200 [facility] (MYAMBUTOL) 7-29 10-27 mg by [place] [facility] 400 MG 00:00: 00:00 mouth 3 of tablet 00 :00 times Medicin weekly. e busPIRone 2021- No 5mg Take 1 [facility] (BUSPAR) 5 7-29 10-21 Tablet by [facility] MG tablet 00:00: 00:00 mouth two of 00 :00 times Medicin daily. e busPIRone 2021- No 5mg Take 1 [facility] (BUSPAR) 5 7-29 10-21 Tablet by [facility] MG tablet 00:00: 00:00 mouth two of 00 :00 times Medicin daily. e tramadol 2021- No [id number] 1{tbl} Take 1 [facility] (ULTRAM) 50 7-29 07-29 102 Tablet by [facility] MG tablet 00:00: 00:00 mouth of 00 :00 every 6 Medicin hours as e needed for Pain. cyclobenzap 0 Yes 5mg Take [address] [facility] 7-19 by mouth 3 [facility] (FLEXERIL) 00:00: (three) Medi john 5 MG tablet 00 times Center daily as needed. moxifloxaci 2021-0 Yes 400mg QD Take [address] [facility] (AVELOX) 7-19 mg by [facility] 400 mg 00:00: mouth Medical tablet 00 daily. Center cyclobenzap 2021-0 Yes 5mg Take [address] [facility] 7-19 by mouth 3 [facility] (FLEXERIL) 00:00: (three) Medi john 5 MG tablet 00 times Center daily as needed. moxifloxaci 2022-0 Yes 400mg QD Take [address] [facility] (AVELOX) 7-19 mg by [facility] 400 mg 00:00: mouth Medical tablet 00 daily. Center cyclobenzap 2022-0 Yes 5mg Take [address] [facility] 7-19 by mouth 3 [facility] (FLEXERIL) 00:00: (three) Medi john 5 MG tablet 00 times Center daily as needed. moxifloxaci 2022-0 Yes 400mg QD Take [address] [facility] (AVELOX) 7-19 mg by [facility] 400 mg 00:00: mouth Medical tablet 00 daily. Center cyclobenzap 2022-0 Yes 5mg Take [address] [facility] 7-19 by mouth 3 [facility] (FLEXERIL) 00:00: (three) Medi john 5 MG tablet 00 times Center daily as needed. moxifloxaci 2022-0 Yes 400mg QD Take [address] [facility] (AVELOX) 7-19 [facility] 400 mg 00:00: mouth [facility] tablet 00 daily. Center cyclobenzap 2022-0 Yes 5mg Take [address] [facility] 7-19 [facility] 3 [facility] (FLEXERIL) 00:00: (three) Medi j[facility] 5 MG tablet 00 times Center daily as needed. moxifloxaci 2022-0 Yes 400mg QD Take [address] [facility] (AVELOX) 7-19 [facility] 400 mg 00:00: mouth [facility] tablet 00 daily. Center cyclobenzap 2022-0 Yes 5mg Take [address] [facility] 7-19 by mouth [facility] ([facility]: (three) [facility] 5 MG tablet 00 times Center daily as needed. moxifloxaci 2022-0 Yes 400mg QD Take [address] [facility] (AVELOX) 7-19 [facility] 00:[facility]: mouth Medical tablet 00 daily. Center cyclobenzap 2022-0 Yes 5mg Take [address] [facility] 7-19 by mouth [facility] ([facility]: (three) [facility] 5 MG tablet 00 times Center daily as needed. moxifloxaci 2022-0 Yes 400mg QD Take [address] [facility] (AVELOX) 7-19 [facility] mg 00:00: mouth Medical tablet 00 daily. Center cyclobenzap 2022-0 Yes 5mg Take [address] [facility] 7-19 by mouth [facility] ([facility]) 00:[facility]: (three) [facility] 5 MG tablet 00 times Center daily as needed. moxifloxaci 2022-0 Yes 400mg QD Take [address] [facility] (AVELOX) 7-19 [facility] mg 00:00: mouth Medical tablet 00 daily. Center cyclobenzap 2022-0 Yes 5mg Take [address] [facility] 7-19 by mouth [facility] ([facility]) 00:00: (three) [facility] 5 MG tablet 00 times Center daily as needed. moxifloxaci 2022-0 Yes 400mg QD Take [address] [facility] (AVELOX) 7-19 [facility] mg 00:00: mouth Medical tablet 00 daily. Center cyclobenzap 2022-0 Yes 5mg Take [address] [facility] 7-19 by mouth [facility] ([facility]) 00:00: (three) [facility] 5 MG tablet 00 times Center daily as needed. moxifloxaci 2022-0 Yes 400mg QD Take [address] [facility] (AVELOX) 7-19 [facility] mg 00:00: mouth Medical tablet 00 daily. Center cyclobenzap 2022-0 Yes 5mg Take [address] [facility] 7-19 by mouth [facility] ([facility]) 00:00: (three) [facility] 5 MG tablet 00 times Center daily as needed. moxifloxaci 2022-0 Yes 400mg QD Take [address] [facility] (AVELOX) 7-19 [facility] mg 00:00: mouth Medical tablet 00 daily. Center cyclobenzap 2022-0 Yes 5mg Take [address] [facility] 7-19 by mouth [facility] ([facility]) 00:00: (three) [facility] 5 MG tablet 00 times Center daily as needed. moxifloxaci 2022-0 Yes 400mg QD Take [address] [facility] (AVELOX) 7-19 [facility] 400 mg 00:00: mouth Medical tablet 00 daily. Center clopidogrel 2022-0 Yes TAKE 1 [facility] ([facility]IX) 75 7-19 TABLET [facility] Tablet 00:00: MOUTH of 00 EVERY DAY Medicin e clopidogrel 2-0 Yes TAKE 1 [facility] (PLAVIX) 75 7-19 TABLET BY [facility] MG Tablet 00:00: MOUTH of 00 EVERY DAY Medicin e clopidogrel 2-0 Yes TAKE 1 [facility] (PLAVIX) 75 7-19 TABLET BY [facility] MG Tablet 00:00: MOUTH of 00 EVERY DAY Medicin e moxifloxaci 2-0 Yes 400mg Take 400 [facility] (AVELOX) 7-19 mg by [place] 400 MG 00:00: mouth of tablet 00 daily. Medicin e clopidogrel 2-0 Yes TAKE 1 [facility] (PLAVIX) 75 7-19 TABLET BY [facility] MG Tablet 00:00: MOUTH of 00 EVERY DAY Medicin e moxifloxaci 2-0 Yes 400mg Take 400 [facility] (AVELOX) 7-19 mg by [place] 400 MG 00:00: mouth of tablet 00 daily. Medicin e clopidogrel 2-0 Yes TAKE 1 [facility] (PLAVIX) 75 7-19 TABLET BY [facility] MG Tablet 00:00: MOUTH of 00 EVERY DAY Medicin e moxifloxaci 2-0 Yes 400mg Take 400 [facility] (AVELOX) 7-19 mg by [place] 400 MG 00:00: mouth of tablet 00 daily. Medicin e clopidogrel 2-0 Yes TAKE 1 [facility] (PLAVIX) 75 7-19 TABLET BY [facility] MG Tablet 00:00: MOUTH of 00 EVERY DAY Medicin e moxifloxaci 2-0 Yes 400mg Take 400 [facility] (AVELOX) 7-19 mg by [place] 400 MG 00:00: mouth of tablet 00 daily. Medicin e clopidogrel 2-0 Yes TAKE 1 [facility] (PLAVIX) 75 7-19 TABLET BY [facility] MG Tablet 00:00: MOUTH of 00 EVERY DAY Medicin e moxifloxaci 2-0 Yes 400mg Take 400 [facility] (AVELOX) 7-19 mg [facility] 400 MG 00:00: mouth of tablet 00 daily. Medicin e clopidogrel 2-0 Yes TAKE 1 [facility] (PLAVIX) 75 7-19 TABLET BY [facility] MG Tablet 00:00: MOUTH of 00 EVERY DAY Medicin e moxifloxaci 2021-0 Yes 400mg Take 400 [facility] (AVELOX) 7-19 mg by [place] 400 MG 00:00: mouth of tablet 00 daily. Medicin e clopidogrel 2021-0 Yes TAKE 1 [facility] (PLAVIX) 75 7-19 TABLET BY [facility] MG Tablet 00:00: MOUTH of 00 EVERY DAY Medicin e moxifloxaci 2021-0 Yes 400mg Take 400 [facility] (AVELOX) 7-19 mg by [place] 400 MG 00:00: mouth of tablet 00 daily. Medicin e clopidogrel 2021-0 Yes TAKE 1 [facility] (PLAVIX) 75 7-19 TABLET BY [facility] MG Tablet 00:00: MOUTH of 00 EVERY DAY Medicin e moxifloxaci 2021-0 Yes 400mg Take 400 [facility] (AVELOX) 7-19 mg by [place] 400 MG 00:00: mouth of tablet 00 daily. Medicin e clopidogrel 2021-0 Yes TAKE 1 [facility] (PLAVIX) 75 7-19 TABLET BY [facility] MG Tablet 00:00: MOUTH of 00 EVERY DAY Medicin e clopidogrel 2-0 Yes TAKE 1 [facility] (PLAVIX) 75 7-19 TABLET BY [facility] MG Tablet 00:00: MOUTH of 00 EVERY DAY Medicin e clopidogrel 2-0 Yes TAKE 1 [facility] (PLAVIX) 75 7-19 TABLET BY [facility] MG Tablet 00:00: MOUTH of 00 EVERY DAY Medicin e clopidogrel 2-0 Yes TAKE 1 [facility] (PLAVIX) 75 7-19 TABLET BY [facility] MG Tablet 00:00: MOUTH of 00 EVERY DAY Medicin e clopidogrel 2-0 Yes TAKE 1 [facility] (PLAVIX) 75 7-19 TABLET BY [facility] MG Tablet 00:00: MOUTH of 00 EVERY DAY Medicin e clopidogrel 2-0 Yes TAKE 1 [facility] (PLAVIX) 75 7-19 TABLET BY [facility] MG Tablet 00:00: MOUTH of 00 EVERY DAY Medicin e clopidogrel 2022-0 Yes TAKE 1 [facility] (PLAVIX) 75 7-19 TABLET BY [facility] MG Tablet 00:00: MOUTH of 00 EVERY DAY Medicin e clopidogrel 2-0 Yes TAKE 1 [facility] (PLAVIX) 75 7-19 TABLET BY [facility] MG Tablet 00:00: MOUTH of 00 EVERY DAY Medicin e clopidogrel 0 Yes TAKE 1 [facility] (PLAVIX) 75 7-19 TABLET BY [facility] MG Tablet 00:00: MOUTH of 00 EVERY DAY Medicin e cyclobenzap 0 Yes 5mg Take [address] [facility] 7-19 by mouth [facility] ([facility]: (three) [facility] 5 [facility] tablet 00 times Center daily as needed. moxifloxaci 0 Yes 400mg QD Take [address] [facility] (AVELOX) 7-19 [facility] mg 00:00: mouth Medical tablet 00 daily. Center moxifloxaci 2021-0 2022- No 400mg Take 400 [facility] (AVELOX) 7-19 10-27 mg by [place] 400 MG 00:00: 00:00 mouth of tablet 00 :00 daily. Medicin e Cyanocobala Yes 1{tbl} Take 1 [facility] (B-12 7-11 Tablet by [facility] [place]) 09:56: mouth of 22 daily. Medicin e alprazolam 0 Yes .5mg Take 0.5 [facility] (XANAX) 0.5 7-11 mg by [place] MG tablet 09:56: mouth of 22 nightly as Medicin needed for e Sleep. estrogens, 0 Yes 1.25mg Take 1.25 [facility] conjugated, 7-11 mg by [place] (PREMARIN) 09:56: mouth of 1.25 MG 22 daily. Medicin tablet e montelukast 0 Yes 10mg Take 10 mg [facility] (SINGULAIR) 7-11 by mouth [facility] 10 MG 09:56: daily. of tablet 22 Medicin e omeprazole 0 Yes 40mg Take 40 mg [facility] (PRILOSEC) 7-11 by mouth [facility] 40 MG 09:56: daily. of capsule 22 Medicin e MAGNESIUM 0 Yes 1{tbl} Take 1 [facility] [place] 7-11 Tablet by [place] 09:56: mouth of 22 daily. Medicin e acetaminoph 0 Yes 1000mg Take 1,000 [facility] en 7-11 mg by [place] (TYLENOL) 09:56: mouth as of 500 mg 22 needed for Medicin tablet Pain. e gabapentin 2021-0 Yes 300mg Take 300 [facility] (NEURONTIN) 7-11 mg by [place] 300 MG 09:56: mouth 3 of capsule 22 times Medicin daily. e oxybutynin 2021-0 Yes 10mg Take 10 mg [facility] (DITROPAN-X 7-11 by mouth [facility]) 10 MG CR 09:56: as needed. of tablet 22 Medicin e candesartan 2021-0 Yes 16mg Take 16 mg [facility] (ATACAND) 7[facility] daily[facility] of tablet 22 Medicin e Cyanocobala 2021-0 Yes 1{tbl} Take 1 [facility] (B-12 6-24 Tablet by [facility] OR) 08:08: mouth of 10 daily. Medicin e alprazolam 2021-0 Yes .5mg Take 0.5 [facility] (XANAX) 0.5 6-24 mg by [place] MG tablet 08:08: mouth of 10 nightly as Medicin needed for e Sleep. estrogens, 2021-0 Yes 1.25mg Take 1.25 [facility] conjugated, 6-24 mg by [place] (PREMARIN) 08:08: mouth of 1.25 MG 10 daily. Medicin tablet e montelukast 2021-0 Yes 10mg Take 10 mg [facility] (SINGULAIR) 6-24 by mouth [facility] 10 MG 08:08: daily. of tablet 10 Medicin e omeprazole 2021-0 Yes 40mg Take 40 mg [facility] (PRILOSEC) 6-24 by mouth [facility] 40 MG 08:08: daily. of capsule 10 Medicin e MAGNESIUM 2-0 Yes 1{tbl} Take 1 [facility] [place] 6-24 Tablet by [place] 08:08: mouth of 10 daily. Medicin e acetaminoph 2-0 Yes 1000mg Take 1,000 [facility] 6-24 mg by [place] (TYLENOL) 08:08: mouth as of 500 mg 10 needed for Medicin tablet Pain. e gabapentin 2021-0 Yes 300mg Take 300 [facility] (NEURONTIN) 6-24 mg by [place] 300 MG 08:08: mouth 3 of capsule 10 times Medicin daily. e oxybutynin 2-0 Yes 10mg Take 10 mg [facility] (DITROPAN-X 6-24 by mouth [facility]) 10 MG CR 08:08: as needed. of tablet 10 Medicin e candesartan 2022-0 Yes 16mg Take 16 mg [facility] (ATACAND) 6-24 by mouth [facility] 16 MG 08:08: daily. of tablet 10 Medicin e Cyanocobala 2022-0 Yes 1{tbl} Take 1 [facility] (B-12 6-24 Tablet by [facility] [place]) 08:08: mouth of 10 daily. Medicin e alprazolam 2021-0 Yes .5mg Take 0.5 [facility] (XANAX) 0.5 6-24 mg by [place] MG tablet 08:08: mouth of 10 nightly as Medicin needed for e Sleep. estrogens, 2021-0 Yes 1.25mg Take 1.25 [facility] conjugated, 6-24 mg by [place] (PREMARIN) 08:08: mouth of 1.25 MG 10 daily. Medicin tablet e montelukast 2021-0 Yes 10mg Take 10 mg [facility] (SINGULAIR) 6-24 by mouth [facility] 10 MG 08:08: daily. of tablet 10 Medicin e omeprazole 2021-0 Yes 40mg Take 40 mg [facility] (PRILOSEC) 6-24 by mouth [facility] 40 MG 08:08: daily. of capsule 10 Medicin e MAGNESIUM 2-0 Yes 1{tbl} Take 1 [facility] [place] 6-24 Tablet by [place] 08:08: mouth of 10 daily. Medicin e acetaminoph 2-0 Yes 1000mg Take 1,000 [facility] en 6-24 mg by [place] (TYLENOL) 08:08: mouth as of 500 mg 10 needed for Medicin tablet Pain. e gabapentin 2-0 Yes 300mg Take 300 [facility] (NEURONTIN) 6-24 mg by [place] 300 MG 08:08: mouth 3 of capsule 10 times Medicin daily. e oxybutynin 2022-0 Yes 10mg Take 10 mg [facility] (DITROPAN-X 6-24 by mouth [facility]) 10 MG CR 08:08: as needed. of tablet 10 Medicin e candesartan 2-0 Yes 16mg Take 16 mg [facility] (ATACAND) 6-24 by mouth [facility] 16 MG 08:08: daily. of tablet 10 Medicin e Cabozantini 2021-0 2022- No 40mg Take 40 mg [facility] 09-24 by mouth [facility] 40 MG TABS 00:00: 04:59 daily for o f 00 :00 30 days. Medicin e Cabozantini 2021-0 2022- No 40mg Take 40 mg [facility] b [facility] 09-24-25 by mouth [facility] 40 MG TABS 00:00: 04:59 daily for o f 00 :00 30 days. Medicin e albuterol 2021-0 Yes 2.5mg Take 2.[address] [facility] (PROVENTIL) 6-10 mg [facility] 2.[facility] mg /3 00:00: nebulizati Me dical mL (0.083 00 on every 6 [facility] er %) (six) nebulizer hours as solution needed for Wheezing or Shortness of Breath . albuterol 2021-0 Yes 2.5mg Take 2.[address] [facility] (PROVENTIL) 6-10 mg by [facility] 2.5 mg /3 00:00: nebulizati Me dical mL (0.083 00 on every 6 [facility] er %) (six) nebulizer hours as solution needed for Wheezing or Shortness of Breath . albuterol 2021-0 Yes 2.5mg Take 2.[address] [facility] (PROVENTIL) 6-10 mg by [facility] 2.5 mg /3 00:00: nebulizati Me dical mL (0.083 00 on every 6 [facility] er %) (six) nebulizer hours as solution needed for Wheezing or Shortness of Breath . albuterol 2-0 Yes 2.5mg Take 2.[address] [facility] (PROVENTIL) 6-10 mg by [facility] 2.5 mg /3 00:00: nebulizati Me dical mL (0.083 00 on every 6 [facility] er %) (six) nebulizer hours as solution needed for Wheezing or Shortness of Breath . albuterol 2-0 Yes 2.5mg Take 2.[address] [facility] (PROVENTIL) 6-10 mg by [facility] 2.5 mg /3 00:00: nebulizati Me dical mL (0.083 00 on every 6 [facility] er %) (six) nebulizer hours as solution needed for Wheezing or Shortness of Breath . albuterol 2022-0 Yes 2.5mg Take 2.[address] [facility] (PROVENTIL) 6-10 mg by [facility] 2.5 mg /3 00:00: nebulizati Me dical mL (0.083 00 on every 6 [facility] er %) (six) nebulizer hours as solution needed for Wheezing or Shortness of Breath . albuterol 2-0 Yes SMARTSIG:[facility] 2.[facility] mg /3 00:00: Nebulizer Med ical mL (0.083 00 Center %) nebulizer solution albuterol 2-0 Yes SMARTSIG:[facility] 6-10 [facility] 2.[facility] mg /3 00:00: Nebulizer Med ical mL (0.083 00 Center %) nebulizer solution albuterol 2-0 Yes 2.5mg Take 2.[address] [facility] (PROVENTIL) 6-10 mg by [facility] 2.5 mg /3 00:00: nebulizati Me dical mL (0.083 00 on every 6 Cent er %) (six) nebulizer hours as solution needed for Wheezing or Shortness of Breath . albuterol 2-0 Yes 2.5mg Take 2.[address] [facility] (PROVENTIL) 6-10 mg by [facility] 2.5 mg /3 00:00: nebulizati Me dical mL (0.083 00 on every 6 Cent er %) (six) nebulizer hours as solution needed for Wheezing or Shortness of Breath . albuterol 2-0 Yes 2.5mg Take 2.[address] [facility] (PROVENTIL) 6-10 mg by [facility] 2.5 mg /3 00:00: nebulizati Me dical mL (0.083 00 on every 6 Cent er %) (six) nebulizer hours as solution needed for Wheezing or Shortness of Breath . albuterol 2022-0 Yes 2.5mg Take 2.[address] [facility] (PROVENTIL) 6-10 mg by [facility] 2.5 mg /3 00:00: nebulizati Me dical mL (0.083 00 on every 6 Cent er %) (six) nebulizer hours as solution needed for Wheezing or Shortness of Breath . albuterol 2022-0 Yes 2.5mg Take 2.[address] [facility] (PROVENTIL) 6-10 mg by [facility] 2.5 mg /3 00:00: nebulizati Me dical mL (0.083 00 on every 6 Cent er %) (six) nebulizer hours as solution needed for Wheezing or Shortness of Breath . Cyanocobala 2021-0 Yes 1{tbl} Take 1 [facility] (B-12 6-03 Tablet by [facility] [place]) 09:20: mouth of 14 daily. Medicin e alprazolam 0 Yes .5mg Take 0.5 [facility] (XANAX) 0.5 6-03 mg by [place] MG tablet 09:20: mouth of 14 nightly as Medicin needed for e Sleep. estrogens, 2021-0 Yes 1.25mg Take 1.25 [facility] conjugated, 6-03 mg by [place] (PREMARIN) 09:20: mouth of 1.25 MG 14 daily. Medicin tablet e montelukast 2021-0 Yes 10mg Take 10 mg [facility] (SINGULAIR) 6-03 by mouth [facility] 10 MG 09:20: daily. of tablet 14 Medicin e omeprazole 0 Yes 40mg Take 40 mg [facility] (PRILOSEC) 6-03 by mouth [facility] 40 MG 09:20: daily. of capsule 14 Medicin e MAGNESIUM 2021-0 Yes 1{tbl} Take 1 [facility] [place] 6-03 Tablet by [place] 09:20: mouth of 14 daily. Medicin e acetaminoph 2021-0 Yes 1000mg Take 1,000 [facility] 6-03 mg by [place] (TYLENOL) 09:20: mouth as of 500 mg 14 needed for Medicin tablet Pain. e gabapentin 2021-0 Yes 300mg Take 300 [facility] (NEURONTIN) 6-03 mg by [place] 300 MG 09:20: mouth 3 of capsule 14 times Medicin daily. e oxybutynin 2021-0 Yes 10mg Take 10 mg [facility] (DITROPAN-X 6-03 by mouth [facility]) 10 MG CR 09:20: as needed. of tablet 14 Medicin e candesartan 2021-0 Yes 16mg Take 16 mg [facility] (ATACAND) 6-03 by mouth [facility] 16 MG 09:20: daily. of tablet 14 Medicin e Cyanocobala Yes 1{tbl} Take 1 [facility] (B-12 5-13 Tablet by [facility] [place]) 08:22: mouth of 09 daily. Medicin e alprazolam 0 Yes .5mg Take 0.5 [facility] (XANAX) 0.5 5-13 mg by [place] MG tablet 08:22: mouth of 09 nightly as Medicin needed for e Sleep. estrogens, 0 Yes 1.25mg Take 1.25 [facility] conjugated, 5-13 mg by [place] (PREMARIN) 08:22: mouth of 1.25 MG 09 daily. Medicin tablet e montelukast 0 Yes 10mg Take 10 mg [facility] (SINGULAIR) 5-13 by mouth [facility] 10 MG 08:22: daily. of tablet 09 Medicin e omeprazole 0 Yes 40mg Take 40 mg [facility] (PRILOSEC) 5-13 by mouth [facility] 40 MG 08:22: daily. of capsule 09 Medicin e MAGNESIUM 0 Yes 1{tbl} Take 1 [facility] [place] 5-13 Tablet by [place] 08:22: mouth of 09 daily. Medicin e acetaminoph 0 Yes 1000mg Take 1,000 [facility] 5-13 mg by [place] (TYLENOL) 08:22: mouth as of 500 mg 09 needed for Medicin tablet Pain. e gabapentin 0 Yes 300mg Take 300 [facility] (NEURONTIN) 5-13 mg by [place] 300 MG 08:22: mouth 3 of capsule 09 times Medicin daily. e oxybutynin 0 Yes 10mg Take 10 mg [facility] (DITROPAN-X 5-13 by mouth [facility]) 10 MG CR 08:22: as needed. of tablet 09 Medicin e candesartan 0 Yes 16mg Take 16 mg [facility] (ATACAND) 5-13 by mouth [facility] 16 MG 08:22: daily. of tablet 09 Medicin e Cyanocobala 2021-0 Yes 1{tbl} Take 1 [facility] (B-12 5-13 Tablet by [facility] [place]) 08:22: mouth of 09 daily. Medicin e alprazolam Yes .5mg Take 0.5 [facility] (XANAX) 0.5 5-13 mg by [facility] MG tablet 08:22: mouth of 09 nightly as Medicin needed for e Sleep. estrogens, 0 Yes 1.25mg Take 1.25 [facility] conjugated, 5-13 mg by [facility] (PREMARIN) 08:22: mouth of 1.25 MG 09 daily. Medicin tablet e montelukast 0 Yes 10mg Take 10 mg [facility] (SINGULAIR) 5-13 by mouth [facility] 10 MG 08:22: daily. of tablet 09 Medicin e omeprazole Yes 40mg Take 40 mg [facility] (PRILOSEC) 5-13 by mouth [facility] 40 MG 08:22: daily. of capsule 09 Medicin e MAGNESIUM Yes 1{tbl} Take 1 [facility] [place] 5-13 Tablet by [facility] 08:22: mouth of 09 daily. Medicin e acetaminoph Yes 1000mg Take 1,000 [facility] 5-13 mg by [place] (TYLENOL) 08:22: mouth as of 500 mg 09 needed for Medicin tablet Pain. e gabapentin Yes 300mg Take 300 [facility] (NEURONTIN) 5-13 mg by [place] 300 MG 08:22: mouth 3 of capsule 09 times Medicin daily. e oxybutynin Yes 10mg Take 10 mg [facility] (DITROPAN-X 5-13 by mouth [facility]) 10 MG CR 08:22: as needed. of tablet 09 Medicin e candesartan Yes 16mg Take 16 mg [facility] (ATACAND) 5-13 by mouth [facility] 16 MG 08:22: daily. of tablet 09 Medicin e Cyanocobala Yes 1{tbl} Take 1 [facility] (B-12 5-06 Tablet by [facility] [place]) 09:45: mouth of 41 daily. Medicin e alprazolam Yes .5mg Take 0.5 [facility] (XANAX) 0.5 5-06 mg by [facility] MG tablet 09:45: mouth of 41 nightly as Medicin needed for e Sleep. estrogens, Yes 1.25mg Take 1.25 [facility] conjugated, 5-06 mg by [place] (PREMARIN) 09:45: mouth of 1.25 MG 41 [...] 1 [facility] [place] 5-06 Tablet by [place] 09:45: mouth of 41 daily. Medicin e acetaminoph 0 Yes 1000mg Take 1,000 [facility] 5-06 mg by [place] (TYLENOL) 09:45: mouth as of 500 mg 41 needed for Medicin tablet Pain. e gabapentin 0 Yes 300mg Take 300 [facility] (NEURONTIN) 5-06 mg by [place] 300 MG 09:45: mouth 3 of capsule 41 times Medicin daily. e oxybutynin 0 Yes 10mg Take 10 mg [facility] (DITROPAN-X 5-06 by mouth [facility]) 10 MG CR 09:45: as needed. of tablet 41 Medicin e candesartan 0 Yes 16mg Take 16 mg [facility] (ATACAND) 5-06 by mouth [facility] 16 MG 09:45: daily. of tablet 41 Medicin e Cyanocobala 0 Yes 1{tbl} Take 1 [facility] (B-12 5-06 Tablet by [facility] [place]) 09:45: mouth of 41 daily. Medicin e alprazolam 0 Yes .5mg Take 0.5 [facility] (XANAX) 0.5 5-06 mg by [place] MG tablet 09:45: mouth of 41 nightly as Medicin needed for e Sleep. estrogens, 2021-0 Yes 1.25mg Take 1.25 [facility] conjugated, 5-06 mg by [facility] (PREMARIN) 09:45: [...] 1 [facility] [place] 5-06 Tablet by [place] 09:45: mouth of 41 daily. Medicin e acetaminoph 2021-0 Yes 1000mg Take 1,000 [facility] 5-06 mg by [place] (TYLENOL) 09:45: mouth as of 500 mg 41 needed for Medicin tablet Pain. e gabapentin 2021-0 Yes 300mg Take 300 [facility] (NEURONTIN) 5-06 mg by [place] 300 MG 09:45: mouth 3 of capsule 41 times Medicin daily. e oxybutynin 2021-0 Yes 10mg Take 10 mg [facility] (DITROPAN-X 5-06 by mouth [facility]) 10 MG CR 09:45: as needed. of tablet 41 Medicin e candesartan 2021-0 Yes 16mg Take 16 mg [facility] (ATACAND) 5-06 by mouth [facility] 16 MG 09:45: daily. of tablet 41 Medicin e Eplerenone 2021-0 Yes 1{tbl} Take 1 [facility] 25 MG TABS 5-06 Tablet by [facility] 00:00: mouth of 00 daily. Medicin e Eplerenone 2021-0 Yes 1{tbl} Take 1 [facility] 25 MG TABS 5-06 Tablet by [facility] 00:00: mouth of 00 daily. Medicin e Eplerenone 2021-0 Yes 1{tbl} Take 1 [facility] 25 MG TABS 5-06 Tablet by [facility] 00:00: mouth of 00 daily. Medicin e Eplerenone 2021-0 Yes 1{tbl} Take 1 [facility] 25 MG TABS 5-06 Tablet by [facility] 00:00: mouth of 00 daily. Medicin e Eplerenone 2021-0 Yes 1{tbl} Take 1 [facility] 25 MG TABS 5-06 Tablet by [facility] 00:00: mouth of 00 daily. Medicin e Eplerenone 2021-0 Yes 1{tbl} Take 1 [facility] 25 MG TABS 5-06 Tablet by [facility] 00:00: mouth of 00 daily. Medicin e Eplerenone 2-0 Yes 1{tbl} Take 1 [facility] 25 MG TABS 5-06 Tablet by [facility] 00:00: mouth of 00 daily. Medicin e Eplerenone 2-0 Yes 1{tbl} Take 1 [facility] 25 MG TABS 5-06 Tablet by [facility] 00:00: mouth of 00 daily. Medicin e Eplerenone 2-0 Yes 1{tbl} Take 1 [facility] 25 MG TABS 5-06 Tablet by [facility] 00:00: mouth of 00 daily. Medicin e Eplerenone 2-0 Yes 1{tbl} Take 1 [facility] 25 MG TABS 5-06 Tablet by [facility] 00:00: mouth of 00 daily. Medicin e Eplerenone 2-0 Yes 1{tbl} Take 1 [facility] 25 MG TABS 5-06 Tablet by [facility] 00:00: mouth of 00 daily. Medicin e Eplerenone 2-0 Yes 1{tbl} Take 1 [facility] 25 MG TABS 5-06 Tablet by [facility] 00:00: mouth of 00 daily. Medicin e Eplerenone 2021-0 Yes 1{tbl} Take 1 [facility] 25 MG TABS 5-06 Tablet by [facility] 00:00: mouth of 00 daily. Medicin e Eplerenone 2-0 Yes 1{tbl} Take 1 [facility] 25 MG TABS 5-06 Tablet by [facility] 00:00: mouth of 00 daily. Medicin e Eplerenone 2-0 Yes 1{tbl} Take 1 [facility] 25 MG TABS 5-06 Tablet by [facility] 00:00: mouth of 00 daily. Medicin e Eplerenone 2-0 Yes 1{tbl} Take 1 [facility] 25 MG TABS 5-06 Tablet by [facility] 00:00: mouth of 00 daily. Medicin e Eplerenone 2-0 Yes 1{tbl} Take 1 [facility] 25 MG TABS 5-06 Tablet by [facility] 00:00: mouth of 00 daily. Medicin e Eplerenone 2-0 Yes 1{tbl} Take 1 [facility] 25 MG TABS 5-06 Tablet by [facility] 00:00: mouth of 00 daily. Medicin e Eplerenone 2021-0 Yes 1{tbl} Take 1 [facility] 25 MG TABS 5-06 Tablet by [facility] 00:00: mouth of 00 daily. Medicin e Eplerenone 2021-0 Yes 1{tbl} Take 1 [facility] 25 MG TABS 5-06 Tablet by [facility] 00:00: mouth of 00 daily. Medicin e Eplerenone 2021-0 Yes 1{tbl} Take 1 [facility] 25 MG TABS 5-06 Tablet by [facility] 00:00: mouth of 00 daily. Medicin e Eplerenone 2021-0 Yes 1{tbl} Take 1 [facility] 25 MG TABS 5-06 Tablet by [facility] 00:00: mouth of 00 daily. Medicin e Eplerenone 2021-0 Yes 1{tbl} Take 1 [facility] 25 MG TABS 5-06 Tablet by [facility] 00:00: mouth of 00 daily. Medicin e Eplerenone 2021-0 Yes 1{tbl} Take 1 [facility] 25 MG TABS 5-06 Tablet by [facility] 00:00: mouth of 00 daily. Medicin e ethambutol 0 2021- No 1200mg Take 3 [facility] (MYAMBUTOL) 4-27 05-28 Tablets by [facility] 400 MG 00:00: 04:59 mouth of tablet 00 :00 every Medicin Monday, e Monday, Monday for 30 days. azithromyci 2021-2021- No 500mg Take 1 [facility] 4-27 05-28 Tablet by [place] (ZITHROMAX) 00:00: 04:59 mouth of 500 MG 00 :00 every Medicin tablet Monday, e Monday, Monday for 30 days. moxifloxaci 2021-0 2021- No 400mg Take 1 [facility] (AVELOX) 4-27 05-28 Tablet by [facility] 400 MG 00:00: 04:59 mouth of tablet 00 :00 daily for Medicin 30 days. e ethambutol 2021-0 2021- No 1200mg Take 3 [facility] (MYAMBUTOL) 4-27 05-28 Tablets by [facility] 400 MG 00:00: 04:59 mouth of tablet 00 :00 every Medicin Monday, e Monday, Monday for 30 days. azithromyci 2021- No 500mg Take 1 [facility] 07-28 Tablet by [place] (ZITHROMAX) 00:00: 04:59 mouth of 500 MG 00 :00 every Medicin tablet Monday, e Monday, Monday for 30 days. moxifloxaci 2021- No 400mg Take 1 [facility] (AVELOX) 07-28 Tablet by [facility] 400 MG 00:00: 04:59 mouth of tablet 00 :00 daily for Medicin 30 days. e ethambutol 2021-2021- No 1200mg Take 3 [facility] (MYAMBUTOL) 07-28 Tablets by [facility] 400 MG 00:00: 04:59 mouth of tablet 00 :00 every Medicin Monday, e Monday, Monday for 30 days. azithromyci 2021- No 500mg Take 1 [facility] 07-28 Tablet by [place] (ZITHROMAX) 00:00: 04:59 mouth of 500 MG 00 :00 every Medicin tablet Monday, e Monday, Monday for 30 days. moxifloxaci 2021- No 400mg Take 1 [facility] (AVELOX) 07-28 Tablet by [facility] 400 MG 00:00: 04:59 mouth of tablet 00 :00 daily for Medicin 30 days. e ethambutol 2021-2021- No 1200mg Take 3 [facility] (MYAMBUTOL) 07-28 Tablets by [facility] 400 MG 00:00: 04:59 mouth of tablet 00 :00 every Medicin Monday, e Monday, Monday for 30 days. azithromyci 2021-2021- No 500mg Take 1 [facility] 07-28 Tablet by [place] (ZITHROMAX) 00:00: 04:59 mouth of 500 MG 00 :00 every Medicin tablet Monday, e Monday, Monday for 30 days. moxifloxaci 0 2021- No 400mg Take 1 [facility] (AVELOX) 4-27 05-28 Tablet by [facility] 400 MG 00:00: 04:59 mouth of tablet 00 :00 daily for Medicin 30 days. e fluconazole 2021-0 2021- No 200mg Take 1 [facility] (DIFLUCAN) 07-28- Tablet by [facility] 200 MG 00:00: 04:59 mouth of tablet 00 :00 daily for Medicin 14 days. e fluconazole 2021-0 2021- No 200mg Take 1 [facility] (DIFLUCAN) 07-28- Tablet by [facility] 200 MG 00:00: 04:59 mouth of tablet 00 :00 daily for Medicin 14 days. e Cyanocobala 0 Yes 1{tbl} Take 1 [facility] (B-12 4-22 Tablet by [facility] ge [place]) 09:43: mouth of 29 daily. Medicin e alprazolam 0 Yes .5mg Take 0.5 [facility] (XANAX) 0.5 4-22 mg by [place] MG tablet 09:43: mouth of 29 nightly as Medicin needed for e Sleep. estrogens, 0 Yes 1.25mg Take 1.25 [facility] conjugated, 4-22 mg by [place] (PREMARIN) 09:43: mouth of 1.25 MG 29 daily. Medicin tablet e montelukast 0 Yes 10mg Take 10 mg [facility] (SINGULAIR) 4-22 by mouth [facility] 10 MG 09:43: daily. of tablet 29 Medicin e omeprazole 0 Yes 40mg Take 40 mg [facility] (PRILOSEC) 4-22 by mouth [facility] ge 40 MG 09:43: daily. of capsule 29 Medicin e MAGNESIUM 0 Yes 1{tbl} Take 1 [facility] [place] 4-22 Tablet by [place] 09:43: mouth of 29 daily. Medicin e acetaminoph 0 Yes 1000mg Take 1,000 [facility] en 4-22 mg by [place] (TYLENOL) 09:43: mouth as of 500 mg 29 needed for Medicin tablet Pain. e gabapentin 0 Yes 300mg Take 300 [facility] (NEURONTIN) 4-22 mg by [place] 300 MG 09:43: mouth 3 of capsule 29 times Medicin daily. e oxybutynin 2022-0 Yes 10mg Take 10 mg [facility] (DITROPAN-X 4-22 by mouth [facility] L) 10 MG CR 09:43: as needed. of tablet 29 Medicin e Cyanocobala 2021-0 Yes 1{tbl} Take 1 [facility] (B-12 4-22 Tablet by [facility] ge [place]) 09:43: mouth of 29 daily. Medicin e alprazolam 2021-0 Yes .5mg Take 0.5 [facility] (XANAX) 0.5 4-22 mg by [place] MG tablet 09:43: mouth of 29 nightly as Medicin needed for e Sleep. estrogens, 2021-0 Yes 1.25mg Take 1.25 [facility] conjugated, 4-22 mg by [place] (PREMARIN) 09:43: mouth of 1.25 MG 29 daily. Medicin tablet e montelukast 0 Yes 10mg Take 10 mg [facility] (SINGULAIR) 4-22 by mouth [facility] 10 MG 09:43: daily. of tablet 29 Medicin e omeprazole 2021-0 Yes 40mg Take 40 mg [facility] (PRILOSEC) 4-22 by mouth [facility] 40 MG 09:43: daily. of capsule 29 Medicin e MAGNESIUM 2021-0 Yes 1{tbl} Take 1 [facility] [place] 4-22 Tablet by [place] 09:43: mouth of 29 daily. Medicin e acetaminoph 2021-0 Yes 1000mg Take 1,000 [facility] en 4-22 mg by [place] (TYLENOL) 09:43: mouth as of 500 mg 29 needed for Medicin tablet Pain. e gabapentin 2021-0 Yes 300mg Take 300 [facility] (NEURONTIN) 4-22 mg by [place] 300 MG 09:43: mouth 3 of capsule 29 times Medicin daily. e oxybutynin 2021-0 Yes 10mg Take 10 mg [facility] (DITROPAN-X 4-22 by mouth [facility] L) 10 MG CR 09:43: as needed. of tablet 29 Medicin e busPIRone 2021-0 Yes 5mg Take 1 [facility] (BUSPAR) 5 4-22 Tablet by [facility] ege MG tablet 00:00: mouth two of 00 times Medicin daily. e duloxetine 2021-0 Yes 60mg Take 1 [facility] (CYMBALTA) [...] 1 [facility] (BUSPAR) 5 4-22 Tablet by [facility] MG tablet 00:00: mouth two of [...] e busPIRone 2022-0 Yes 5mg Take 1 [facility] (BUSPAR) 5 4-22 Tablet by [facility] MG tablet 00:00: mouth two of 00 times Medicin daily. e duloxetine 2022-0 Yes 60mg Take 1 [facility] (CYMBALTA) 4-22 capsule by [facility] 60 MG 00:00: mouth of capsule 00 daily. Medicin e busPIRone 2022-0 Yes 5mg Take 1 [facility] (BUSPAR) 5 4-22 Tablet by [facility] [...] 00 daily. Medicin e duloxetine 2021-0 Yes 60mg Take 1 [facility] (CYMBALTA) 4-22 capsule by [facility] 60 MG 00:00: mouth of capsule 00 daily. Medicin e busPIRone 2-0 2022- No 5mg Take 1 [facility] (BUSPAR) 5 -22 10-29 Tablet by [facility] MG tablet 00:00: 00:00 mouth two of 00 :00 times Medicin daily. e busPIRone 2021-0 2- No 5mg Take 1 [facility] (BUSPAR) 5 -22 -29 Tablet by [facility] MG tablet 00:00: 00:00 mouth two of 00 :00 times Medicin daily. e cyclobenzap 2021-0 2022- No [id number] 5mg Take 1 [facility] rine 4-22 05-23 Tablet by [place] [facility] 00:00: 04:59 mouth 3 of 5 MG tablet 00 :00 times Medicin daily as e needed for Pain for up to 30 days. cyclobenzap 2021-0 2- No [id number] 5mg Take 1 [facility] rine 4-22 05-23 Tablet by [place] (InvenergyERI) 00:00: 04:59 mouth 3 of 5 MG tablet 00 :00 times Medicin daily as e needed for Pain for up to 30 days. cyclobenzap 2021-0 2022- No [id number] 5mg Take 1 [facility] rine 4-22 05-23 Tablet by [place] (InvenergyERI) 00:00: 04:59 mouth 3 of 5 MG tablet 00 :00 times Medicin daily as e needed for Pain for up to 30 days. cyclobenzap 2-0 2022- No [id number] 5mg Take 1 [facility] r[facility] 4-22 05-23 Tablet by [place] (InvenergyERI) 00:00: 04:59 mouth 3 of 5 MG tablet 00 :00 times Medicin daily as e needed for Pain for up to 30 days. cyclobenzap 2-0 2022- No [id number] 5mg Take 1 [facility] rine 4-22 05-23 Tablet by [place] (InvenergyERI) 00:00: 04:59 mouth 3 of 5 MG tablet 00 :00 times Medicin daily as e needed for Pain for up to 30 days. verapamil Yes TAKE ONE [facility] (CALAN-SR) 4-19 TABLET BY [facility] 240 MG CR 00:00: MOUTH of tablet 00 EVERY DAY Medicin e verapamil 0 Yes TAKE ONE [facility] (CALAN-SR) 4-19 TABLET BY [facility] 240 MG CR 00:00: MOUTH of tablet 00 EVERY DAY Medicin e verapamil Yes TAKE ONE [facility] (CALAN-SR) 4-19 [...] tablet 00 EVERY DAY Medicin e verapamil Yes TAKE ONE [facility] (CALAN-SR) 4-19 [...] tablet 00 EVERY DAY Medicin e verapamil Yes TAKE ONE [facility] (CALAN-SR) 4-19 [...] e verapamil 0 2021- No TAKE ONE [facility] (CALAN-SR) 4-19 07- TABLET BY [facility] 240 MG CR 00:00: 00:00 MOUTH of tablet 00 :00 EVERY DAY Medicin e nicotine 2022-0 Yes 1{patch Place [address] [facility] (NICODERM 4-13 } patch onto [facility]) 14 00:00: the skin Medical mg/24 hr 00 daily. Center patch nicotine 2022-0 Yes 1{patch Place [address] [facility] (NICODERM 4-13 } patch onto [facility]) 14 00:00: the skin Medical mg/24 hr 00 daily. Center patch nicotine 2022-0 Yes 1{patch Place [address] [facility] (NICODERM 4-13 } patch onto [facility]) 14 00:00: the skin Medical mg/24 hr 00 daily. Center patch nicotine 2022-0 Yes 1{patch Place [address] [facility] (NICODERM 4-13 } patch onto [facility]) 14 00:00: the skin Medical mg/24 hr 00 daily. Center patch nicotine 2022-0 Yes 1{patch Place [address] [facility] (NICODERM 4-13 } patch onto [facility]) 14 00:00: the skin Medical mg/24 hr 00 daily. Center patch nicotine 2022-0 Yes 1{patch Place [address] [facility] (NICODERM 4-13 } patch onto [facility]) 14 00:00: the skin Medical mg/24 hr 00 daily. Center patch nicotine 2022-0 Yes 1{patch Place [address] [facility] (NICODERM 4-13 } patch onto [facility]) 14 00:00: the skin Medical mg/24 hr 00 daily. Center patch nicotine 2022-0 Yes 1{patch Place [address] [facility] (NICODERM 4-13 } patch onto [facility]) 14 00:00: the skin Medical mg/24 hr 00 daily. Center patch nicotine 2022-0 Yes 1{patch Place [address] [facility] (NICODERM 4-13 } patch onto [facility]) 14 00:00: the skin Medical mg/24 hr 00 daily. Center patch nicotine 2022-0 Yes 1{patch Place [address] [facility] (NICODERM 4-13 } patch onto [facility]) 14 00:00: the skin Medical mg/24 hr 00 daily. Center patch nicotine 2022-0 Yes 1{patch Place [address] [facility] (NICODERM 4-13 } patch onto [facility]) 14 00:00: the skin Medical mg/24 hr 00 daily. Center patch nicotine 2022-0 Yes 1{patch Place [address] [facility] (NICODERM 4-13 } patch onto [facility]) 14 00:00: the skin Medical mg/24 hr 00 daily. Center patch lovastatin 2022-0 Yes 20mg Take 1 [facility] (MEVACOR) 4-13 Tablet by [facility] 20 MG 00:00: mouth of tablet 00 every Medicin evening. e nicotine 2022-0 Yes 1{patch Place 1 [facility] (NICODERM 4-13 } Patch onto [facility] ege ) 14 00:00: the skin of MG/24HR 00 every 24 Medicin patch hours. e lovastatin 2022-0 Yes 20mg Take 1 [facility] (MEVACOR) 4-13 Tablet by [facility] 20 MG 00:00: mouth of tablet 00 every Medicin evening. e nicotine 2022-0 Yes 1{patch Place 1 [facility] (NICODERM 4-13 } Patch onto [facility] ) 14 00:00: the skin of MG/24HR 00 every 24 Medicin patch hours. e lovastatin 2022-0 Yes 20mg Take 1 [facility] (MEVACOR) 4-13 Tablet by [facility] 20 MG 00:00: mouth of tablet 00 every Medicin evening. e nicotine 2022-0 Yes 1{patch Place 1 [facility] (NICODERM 4-13 } Patch onto [facility] ) 14 00:00: the skin of MG/24HR 00 every 24 Medicin patch hours. e lovastatin 2022-0 Yes 20mg Take 1 [facility] (MEVACOR) 4-13 Tablet by [facility] 20 MG 00:00: mouth of tablet 00 every Medicin evening. e nicotine 2022-0 Yes 1{patch Place 1 [facility] (NICODERM 4-13 } Patch onto [facility] ege ) 14 00:00: the skin of MG/24HR 00 every 24 Medicin patch hours. e lovastatin 2022-0 Yes 20mg Take 1 [facility] (MEVACOR) 4-13 Tablet by [facility] 20 MG 00:00: mouth of tablet 00 every Medicin evening. e nicotine 2022-0 Yes 1{patch Place 1 [facility] (NICODERM 4-13 } Patch onto [facility] ege ) 14 00:00: the skin of MG/24HR 00 every 24 Medicin patch hours. e lovastatin 2022-0 Yes 20mg Take 1 [facility] (MEVACOR) 4-13 Tablet by [facility] 20 MG 00:00: mouth of tablet 00 every Medicin evening. e nicotine 2022-0 Yes 1{patch Place 1 [facility] (NICODERM 4-13 } Patch onto [facility]) 14 00:00: the skin of MG/24HR 00 every 24 Medicin patch hours. e lovastatin 2022-0 Yes 20mg Take 1 [facility] (MEVACOR) 4-13 Tablet by [facility] 20 MG 00:00: mouth of tablet 00 every Medicin evening. e nicotine 2022-0 Yes 1{patch Place 1 [facility] (NICODERM 4-13 } Patch onto [facility]) 14 00:00: the skin of MG/24HR 00 every 24 Medicin patch hours. e lovastatin 2022-0 Yes 20mg Take 1 [facility] (MEVACOR) 4-13 Tablet by [facility] 20 MG 00:00: mouth of tablet 00 every Medicin evening. e nicotine 2022-0 Yes 1{patch Place 1 [facility] (NICODERM 4-13 } Patch onto [facility]) 14 00:00: the skin of MG/24HR 00 every 24 Medicin patch hours. e lovastatin 2022-0 Yes 20mg Take 1 [facility] (MEVACOR) 4-13 Tablet by [facility] 20 MG 00:00: mouth of tablet 00 every Medicin evening. e nicotine 2022-0 Yes 1{patch Place 1 [facility] (NICODERM 4-13 } Patch onto [facility]) 14 00:00: the skin of MG/24HR 00 every 24 Medicin patch hours. e lovastatin 2022-0 Yes 20mg Take 1 [facility] (MEVACOR) 4-13 Tablet by [facility] 20 MG 00:00: mouth of tablet 00 every Medicin evening. e nicotine 2022-0 Yes 1{patch Place 1 [facility] (NICODERM 4-13 } Patch onto [facility]) 14 00:00: the skin of MG/24HR 00 every 24 Medicin patch hours. e lovastatin 2022-0 Yes 20mg Take 1 [facility] (MEVACOR) 4-13 Tablet by [facility] 20 MG 00:00: mouth of tablet 00 every Medicin evening. e nicotine 2022-0 Yes 1{patch Place 1 [facility] (NICODERM 4-13 } Patch onto [facility]) 14 00:00: the skin of MG/24HR 00 every 24 Medicin patch hours. e lovastatin 2022-0 Yes 20mg Take 1 [facility] (MEVACOR) 4-13 Tablet by [facility] 20 MG 00:00: mouth of tablet 00 every Medicin evening. e nicotine 2022-0 Yes 1{patch Place 1 [facility] (NICODERM 4-13 } Patch onto [facility]) 14 00:00: the skin of MG/24HR 00 every 24 Medicin patch hours. e nicotine 2022-0 Yes 1{patch Place 1 [facility] (NICODERM 4-13 } Patch onto [facility]) 14 00:00: the skin of MG/24HR 00 every 24 Medicin patch hours. e nicotine 2022-0 Yes 1{patch Place 1 [facility] (NICODERM 4-13 } Patch onto [facility]) 14 00:00: the skin of MG/24HR 00 every 24 Medicin patch hours. e nicotine 2022-0 Yes 1{patch Place 1 [facility] (NICODERM 4-13 } Patch onto [facility]) 14 00:00: the skin of MG/24HR 00 every 24 Medicin patch hours. e nicotine 2022-0 Yes 1{patch Place 1 [facility] (NICODERM 4-13 } Patch onto [facility]) 14 00:00: the skin of MG/24HR 00 every 24 Medicin patch hours. e nicotine 2022-0 Yes 1{patch Place 1 [facility] (NICODERM 4-13 } Patch onto [facility]) 14 00:00: the skin of MG/24HR 00 every 24 Medicin patch hours. e nicotine 2022-0 Yes 1{patch Place 1 [facility] (NICODERM 4-13 } Patch onto [facility]) 14 00:00: the skin of MG/24HR 00 every 24 Medicin patch hours. e nicotine 2022-0 Yes 1{patch Place 1 [facility] (NICODERM 4-13 } Patch onto [facility]) 14 00:00: the skin of MG/24HR 00 every 24 Medicin patch hours. e nicotine 2022-0 Yes 1{patch Place 1 [facility] (NICODERM 4-13 } Patch onto [facility]) 14 00:00: the skin of MG/24HR 00 every 24 Medicin patch hours. e nicotine 2022-0 Yes 1{patch Place 1 [facility] (NICODERM 4-13 } Patch onto [facility] CQ) 14 00:00: the skin of MG/24HR 00 every 24 Medicin patch hours. e nicotine 2022-0 Yes 1{patch Place 1 [facility] (NICODERM 4-13 } Patch onto [facility] CQ) 14 00:00: the skin of MG/24HR 00 every 24 Medicin patch hours. e nicotine 2022-0 Yes 1{patch Place 1 [facility] (NICODERM 4-13 } Patch onto [facility] ) 14 00:00: the skin of MG/24HR 00 every 24 Medicin patch hours. e nicotine 2022-0 Yes 1{patch Place 1 [facility] (NICODERM 4-13 } Patch onto [facility] ege ) 14 00:00: the skin of MG/24HR 00 every 24 Medicin patch hours. e nicotine 2022-0 Yes 1{patch Place 1 [facility] (NICODERM 4-13 } Patch onto [facility] ege ) 14 00:00: the skin of MG/24HR 00 every 24 Medicin patch hours. e nicotine 2022-0 Yes 1{patch Place 1 [facility] (NICODERM 4-13 } Patch onto [facility] ege ) 14 00:00: the skin of MG/24HR 00 every 24 Medicin patch hours. e nicotine 2022-0 Yes 1{patch Place 1 [facility] (NICODERM 4-13 } Patch onto [facility] ege ) 14 00:00: the skin of MG/24HR 00 every 24 Medicin patch hours. e nicotine 2022-0 Yes 1{patch Place 1 [facility] (NICODERM 4-13 } Patch onto [facility] ege ) 14 00:00: the skin of MG/24HR 00 every 24 Medicin patch hours. e nicotine 2022-0 Yes 1{patch Place 1 [facility] (NICODERM 4-13 } Patch onto [facility] ) 14 00:00: the skin of MG/24HR 00 every 24 Medicin patch hours. e nicotine 2022-0 Yes 1{patch Place 1 [facility] (NICODERM 4-13 } Patch onto [facility] CQ) 14 00:00: the skin of MG/24HR 00 every 24 Medicin patch hours. e nicotine 0 Yes 1{patch Place [address] [facility] (NICODERM 4-13 } patch onto [facility]) 14 00:00: the skin Medical mg/24 hr 00 daily. Center patch lovastatin 2021-0 2- No 20mg Take 1 [facility] (MEVACOR) 4-13 07-29 Tablet by [facility] ege 20 MG 00:00: 00:00 mouth of tablet 00 :00 every Medicin evening. e Cyanocobala 2021-0 Yes 1{tbl} Take 1 [facility] (B-12 4- Tablet by [facility] [place]) 09:01: mouth of 17 daily. Medicin e alprazolam 0 Yes .5mg Take 0.5 [facility] (XANAX) 0.5 4-01 mg by [place] MG tablet 09:01: mouth of 17 nightly as Medicin needed for e Sleep. estrogens, 0 Yes 1.25mg Take 1.25 [facility] conjugated, 4-01 mg by [place] (PREMARIN) 09:01: mouth of 1.25 MG 17 daily. Medicin tablet e montelukast 0 Yes 10mg Take 10 mg [facility] (SINGULAIR) 4- by mouth [facility] 10 MG 09:01: daily. of tablet 17 Medicin e omeprazole 0 Yes 40mg Take 40 mg [facility] (PRILOSEC) 4- by mouth [place] 40 MG 09:01: daily. of capsule 17 Medicin e MAGNESIUM 2021-0 Yes 1{tbl} Take 1 [facility] [place] 4-01 Tablet by [place] 09:01: mouth of 17 daily. Medicin e acetaminoph 2021-0 Yes 1000mg Take 1,000 [facility] en 4-01 mg by [place] (TYLENOL) 09:01: mouth as of 500 mg 17 needed for Medicin tablet Pain. e gabapentin 2021-0 Yes 300mg Take 300 [facility] (NEURONTIN) 4-01 mg by [place] 300 MG 09:01: mouth 3 of capsule 17 times Medicin daily. e oxybutynin 2021-0 Yes 10mg Take 10 mg [facility] (DITROPAN-X 4- by mouth [facility] L) 10 MG CR 09:01: as needed. of tablet 17 Medicin e Cyanocobala 2021-0 Yes 1{tbl} Take 1 [facility] (B-12 4-01 Tablet by [facility] [place]) 09:01: mouth of 17 daily. Medicin e alprazolam 2021-0 Yes .5mg Take 0.5 [facility] (XANAX) 0.5 4-01 mg by [place] MG tablet 09:01: mouth of 17 nightly as Medicin needed for e Sleep. estrogens, 2021-0 Yes 1.25mg Take 1.25 [facility] conjugated, 4-01 mg by [place] (PREMARIN) 09:01: mouth of 1.25 MG 17 daily. Medicin tablet e montelukast 2021-0 Yes 10mg Take 10 mg [facility] (SINGULAIR) 4-01 by mouth [facility] 10 MG 09:01: daily. of tablet 17 Medicin e omeprazole 0 Yes 40mg Take 40 mg [facility] (PRILOSEC) 4- by mouth [facility] 40 MG 09:01: daily. of capsule 17 Medicin e MAGNESIUM 2021-0 Yes 1{tbl} Take 1 [facility] [place] 4-01 Tablet by [place] 09:01: mouth of 17 daily. Medicin e acetaminoph 2021-0 Yes 1000mg Take 1,000 [facility] en 4-01 mg by [place] (TYLENOL) 09:01: mouth as of 500 mg 17 needed for Medicin tablet Pain. e gabapentin 2021-0 Yes 300mg Take 300 [facility] (NEURONTIN) 4-01 mg by [place] 300 MG 09:01: mouth 3 of capsule 17 times Medicin daily. e oxybutynin 2021-0 Yes 10mg Take 10 mg [facility] (DITROPAN-X 4- by mouth [facility] L) 10 MG CR 09:01: as needed. of tablet 17 Medicin e cyclobenzap 2021-0 2021- No [id number] 5mg Take 1 [facility] 4-01 05-02 Tablet by [place] (FLEXERIL) 00:00: 04:59 mouth 3 of 5 MG tablet 00 :00 times Medicin daily as e needed for Pain for up to 30 days. cyclobenzap 2022-0 2022- No [id number] 5mg Take 1 [facility] rine 4- 05-02 Tablet by [place] (FLEXERIL) 00:00: 04:59 mouth 3 of 5 MG tablet 00 :00 times Medicin daily as e needed for Pain for up to 30 days. cyclobenzap 2022-0 2022- No [id number] 5mg Take 1 [facility] rine 4-04 06-22 Tablet by [place] (FLEXERIL) 00:00: 00:00 mouth 3 of 5 MG tablet 00 :00 times Medicin daily as e needed for Pain for up to 30 days. cyclobenzap 2-0 2- No [id number] 5mg Take 1 [facility] rine 4-04 06-22 Tablet by [place] (FLEXERIL) 00:00: 00:00 mouth 3 of 5 MG tablet 00 :00 times Medicin daily as e needed for Pain for up to 30 days. miconazole 2021-0 2021- No 200mg Place 1 [facility] (MICONAZOLE 3-31 -04 Suppositor [facility] 3) 200 MG 00:00: 04:59 y of vaginal 00 :00 vaginally Medicin suppository nightly e for 3 days. levothyroxi 2022-0 Yes 100ug Take 1 [facility] ne 3-24 Tablet by [place] (SYNTHROID) 00:00: mouth of 100 MCG 00 daily. Medicin tablet e spironolact 2022-0 Yes 25mg Take 1 [facility] one 3-24 Tablet by [place] (ALDACTONE) 00:00: mouth of 25 MG 00 daily. Medicin tablet e levothyroxi 2022-0 Yes 100ug Take 1 [facility] ne 3-24 Tablet by [place] (SYNTHROID) 00:00: mouth of 100 MCG 00 daily. Medicin tablet e spironolact 2022-0 Yes 25mg Take 1 [facility] one 3-24 Tablet by [place] (ALDACTONE) 00:00: mouth of 25 MG 00 daily. Medicin tablet e levothyroxi 2022-0 Yes 100ug Take 1 [facility] ne 3-24 Tablet by [place] (SYNTHROID) 00:00: mouth of 100 MCG 00 daily. Medicin tablet e spironolact 2022-0 Yes 25mg Take 1 [facility] one 3-24 Tablet by [place] (ALDACTONE) 00:00: mouth of 25 MG 00 daily. Medicin tablet e levothyroxi 2-0 Yes 100ug Take 1 [facility] ne 3-24 Tablet by [facility] (SYNTHROID) 00:00: mouth of 100 MCG 00 daily. Medicin tablet e spironolact 2021-0 Yes 25mg Take 1 [facility] one 3-24 Tablet by [facility] (ALDACTONE) 00:00: mouth of 25 MG 00 daily. Medicin tablet e levothyroxi 2-0 Yes 100ug Take 1 [facility] ne 3-24 Tablet by [facility] (SYNTHROID) 00:00: mouth of 100 MCG 00 daily. Medicin tablet e levothyroxi 2-0 Yes 100ug Take 1 [facility] ne 3-24 Tablet by [facility] (SYNTHROID) 00:00: mouth of 100 MCG 00 daily. Medicin tablet e levothyroxi 2-0 Yes 100ug Take 1 [facility] ne 3-24 Tablet by [place] (SYNTHROID) 00:00: mouth of 100 MCG 00 daily. Medicin tablet e levothyroxi 2021-0 Yes 100ug Take 1 [facility] ne 3-24 Tablet by [place] (SYNTHROID) 00:00: mouth of 100 MCG 00 daily. Medicin tablet e levothyroxi 2-0 Yes 100ug Take 1 [facility] ne 3-24 Tablet by [place] (SYNTHROID) 00:00: mouth of 100 MCG 00 daily. Medicin tablet e levothyroxi 2-0 Yes 100ug Take 1 [facility] ne 3-24 Tablet by [place] (SYNTHROID) 00:00: mouth of 100 MCG 00 daily. Medicin tablet e levothyroxi 2-0 Yes 100ug Take 1 [facility] ne 3-24 Tablet by [place] (SYNTHROID) 00:00: mouth of 100 MCG 00 daily. Medicin tablet e levothyroxi 2-0 Yes 100ug Take 1 [facility] ne 3-24 Tablet by [facility] (SYNTHROID) 00:00: mouth of 100 MCG 00 daily. Medicin tablet e levothyroxi 2-0 Yes 100ug Take 1 [facility] ne 3-24 Tablet by [facility] (SYNTHROID) 00:00: mouth of 100 MCG 00 daily. Medicin tablet e levothyroxi 2-0 Yes 100ug Take 1 [facility] ne 3-24 Tablet by [facility] (SYNTHROID) 00:00: mouth of 100 MCG 00 daily. Medicin tablet e levothyroxi 2022-0 Yes 100ug Take 1 [facility] ne 3-24 Tablet by [place] (SYNTHROID) 00:00: mouth of 100 MCG 00 daily. Medicin tablet e levothyroxi 2-0 Yes 100ug Take 1 [facility] ne 3-24 Tablet by [place] (SYNTHROID) 00:00: mouth of 100 MCG 00 daily. Medicin tablet e levothyroxi 2-0 Yes 100ug Take 1 [facility] ne 3-24 Tablet by [place] (SYNTHROID) 00:00: mouth of 100 MCG 00 daily. Medicin tablet e levothyroxi 2-0 Yes 100ug Take 1 [facility] ne 3-24 Tablet by [facility] (SYNTHROID) 00:00: mouth of 100 MCG 00 daily. Medicin tablet e levothyroxi 2-0 Yes 100ug Take 1 [facility] ne 3-24 Tablet by [place] (SYNTHROID) 00:00: mouth of 100 MCG 00 daily. Medicin tablet e levothyroxi 2-0 Yes 100ug Take 1 [facility] ne 3-24 Tablet by [place] (SYNTHROID) 00:00: mouth of 100 MCG 00 daily. Medicin tablet e levothyroxi 2-0 Yes 100ug Take 1 [facility] ne 3-24 Tablet by [place] (SYNTHROID) 00:00: mouth of 100 MCG 00 daily. Medicin tablet e levothyroxi 2-0 Yes 100ug Take 1 [facility] ne 3-24 Tablet by [place] (SYNTHROID) 00:00: mouth of 100 MCG 00 daily. Medicin tablet e levothyroxi 2-0 Yes 100ug Take 1 [facility] ne 3-24 Tablet by [place] (SYNTHROID) 00:00: mouth of 100 MCG 00 daily. Medicin tablet e levothyroxi 2-0 Yes 100ug Take 1 [facility] ne 3-24 Tablet by [place] (SYNTHROID) 00:00: mouth of 100 MCG 00 daily. Medicin tablet e levothyroxi 2-0 Yes 100ug Take 1 [facility] ne 3-24 Tablet by [place] (SYNTHROID) 00:00: mouth of 100 MCG 00 daily. Medicin tablet e levothyroxi 2-0 Yes 100ug Take 1 [facility] ne 3-24 Tablet by [place] (SYNTHROID) 00:00: mouth of 100 MCG 00 daily. Medicin tablet e levothyroxi 2022-0 Yes 100ug Take 1 [facility] ne 3-24 Tablet by [place] (SYNTHROID) 00:00: mouth of 100 MCG 00 daily. Medicin tablet e levothyroxi 0 Yes 100ug Take 1 [facility] ne 3-24 Tablet by [place] (SYNTHROID) 00:00: mouth of 100 MCG 00 daily. Medicin tablet e spironolact 2021-0 2022- No 25mg Take 1 [facility] one 3-24 05-06 Tablet by [place] (ALDACTONE) 00:00: 00:00 mouth of 25 MG 00 :00 daily. Medicin tablet e candesartan 0 Yes 16mg Take 1 [facility] (ATACAND) [...] of tablet 00 daily. Medicin e candesartan 0 Yes 16mg Take 1 [facility] (ATACAND) 3-18 Tablet by [facility] 16 MG 00:00: mouth of tablet 00 daily. Medicin e spironolact 0 Yes 50mg Take 50 mg [facility] one 3-11 by mouth [place] (ALDACTONE) 08:29: daily. of 50 MG 54 Medicin tablet e Cyanocobala Yes 1{tbl} Take 1 [facility] (B-12 3-11 Tablet by [facility] ge OR) 08:28: mouth of 48 daily. Medicin e alprazolam 0 Yes .5mg Take 0.5 [facility] (XANAX) 0.5 3-11 mg by [place] MG tablet 08:28: mouth of 48 nightly as Medicin needed for e Sleep. estrogens, 2021-0 Yes 1.25mg Take 1.25 [facility] conjugated, 3-11 mg by [place] (PREMARIN) 08:28: mouth of 1.25 MG 48 daily. Medicin tablet e montelukast 0 Yes 10mg Take 10 mg [facility] (SINGULAIR) 3-11 by mouth [facility] 10 MG 08:28: daily. of tablet 48 Medicin e omeprazole 2021-0 Yes 40mg Take 40 mg [facility] (PRILOSEC) 3-11 by mouth [facility] 40 MG 08:28: daily. of capsule 48 Medicin e MAGNESIUM 2021-0 Yes 1{tbl} Take 1 [facility] [place] 3-11 Tablet by [place] 08:28: mouth of 48 daily. Medicin e acetaminoph 2021-0 Yes 1000mg Take 1,000 [facility] en 3-11 mg by [place] (TYLENOL) 08:28: mouth as of 500 mg 48 needed for Medicin tablet Pain. e gabapentin 2021-0 Yes 300mg Take 300 [facility] (NEURONTIN) 3-11 mg by [place] 300 MG 08:28: mouth 3 of capsule 48 times Medicin daily. e oxybutynin 2021-0 Yes 10mg Take 10 mg [facility] (DITROPAN-X 3-11 by mouth [facility]) 10 MG CR 08:28: as needed. of tablet 48 Medicin e Cyanocobala 2021-0 Yes 1{tbl} Take 1 [facility] (B-12 3-11 Tablet by [facility] ge [place]) 08:28: mouth of 48 daily. Medicin e alprazolam 0 Yes .5mg Take 0.5 [facility] (XANAX) 0.5 3-11 mg by [place] MG tablet 08:28: mouth of 48 nightly as Medicin needed for e Sleep. estrogens, 2021-0 Yes 1.25mg Take 1.25 [facility] conjugated, 3-11 mg by [place] (PREMARIN) 08:28: mouth of 1.25 MG 48 daily. Medicin tablet e montelukast 2021-0 Yes 10mg Take 10 mg [facility] (SINGULAIR) 3-11 by mouth [facility] 10 MG 08:28: daily. of tablet 48 Medicin e omeprazole 2021-0 Yes 40mg Take 40 mg [facility] (PRILOSEC) 3-11 by mouth [facility] 40 MG 08:28: daily. of capsule 48 Medicin e MAGNESIUM 2021-0 Yes 1{tbl} Take 1 [facility] [place] 3-11 Tablet by [place] 08:28: mouth of 48 daily. Medicin e acetaminoph 2021-0 Yes 1000mg Take 1,000 [facility] en 3-11 mg by [place] (TYLENOL) 08:28: mouth as of 500 mg 48 needed for Medicin tablet Pain. e gabapentin 2021-0 Yes 300mg Take 300 [facility] (NEURONTIN) 3-11 mg by [place] 300 MG 08:28: mouth 3 of capsule 48 times Medicin daily. e oxybutynin 2021-0 Yes 10mg Take 10 mg [facility] (DITROPAN-X 3-11 by mouth [facility]) 10 MG CR 08:28: as needed. of tablet 48 Medicin e prochlorper 2021-0 Yes 1{tbl} Take [address] [facility] [address] [facility] 3-11 tablet by [facility] (COMPAZINE) 00:00: mouth Medic al 10 MG 00 every 6 Center tablet (six) hours as needed. prochlorper 2021-0 Yes 1{tbl} Take [address] [facility] [address] [facility]ine 3-11 tablet by [facility] (COMPAZINE) 00:00: mouth Medic al 10 MG 00 every 6 Center tablet (six) hours as needed. prochlorper 2021-0 Yes 1{tbl} Take [address] [facility] [address] [facility]ine 3-11 tablet by [facility] (COMPAZINE) 00:00: mouth Medic al 10 MG 00 every 6 Center tablet (six) hours as needed. prochlorper 2021-0 Yes 1{tbl} Take [address] [facility] [address] [facility]ine 3-11 tablet by [facility] (COMPAZINE) 00:00: mouth Medic al 10 MG 00 every 6 Center tablet (six) hours as needed. prochlorper 2021-0 Yes 1{tbl} Take [address] [facility] [address] [facility] azine 3-11 tablet by [facility] (COMPAZINE) 00:00: mouth Medic al 10 MG 00 every 6 Center tablet (six) hours as needed. prochlorper 2021-0 Yes 1{tbl} Take [address] [facility] [address] [facility]ine 3-11 tablet by [facility] (COMPAZINE) 00:00: mouth Medic al 10 MG 00 every 6 Center tablet (six) hours as needed. prochlorper 2021-0 Yes 1{tbl} Take [address] [facility] [address] [facility]ine 3-11 tablet by [facility] (COMPAZINE) 00:00: mouth Medic al 10 MG 00 every 6 Center tablet (six) hours as needed. prochlorper 2022-0 Yes 1{tbl} Take [address] [facility] [address] [facility]ine 3-11 tablet by [facility] (COMPAZINE) 00:00: mouth Medic al 10 MG 00 every 6 Center tablet (six) hours as needed. prochlorper 2022-0 Yes 1{tbl} Take [address] [facility] [address] [facility]ine 3-11 tablet by [facility] (COMPAZINE) 00:00: mouth Medic al 10 MG 00 every 6 Center tablet (six) hours as needed. prochlorper 2022-0 Yes 1{tbl} Take [address] [facility] [address] [facility]ine 3-11 tablet by [facility] (COMPAZINE) 00:00: mouth Medic al 10 MG 00 every 6 Center tablet (six) hours as needed. prochlorper 2022-0 Yes 1{tbl} Take [address] [facility] [address] [facility]ine 3-11 tablet by [facility] (COMPAZINE) 00:00: mouth Medic al 10 MG 00 every 6 Center tablet (six) hours as needed. prochlorper 2-0 Yes 1{tbl} Take [address] [facility] [address] [facility]ine 3-11 tablet by [facility] (COMPAZINE) 00:00: mouth Medic al 10 MG 00 every 6 Center tablet (six) hours as needed. prochlorper 2-0 Yes 10mg Take 1 [facility] azine 3-11 Tablet by [place] (COMPAZINE) 00:00: mouth of 10 MG 00 every 6 Medicin tablet hours as e needed. prochlorper 2-0 Yes 10mg Take 1 [facility] azine 3-11 Tablet by [place] (COMPAZINE) 00:00: mouth of 10 MG 00 every 6 Medicin tablet hours as e needed. prochlorper 2-0 Yes 10mg Take 1 [facility] azine 3-11 Tablet by [place] (COMPAZINE) 00:00: mouth of 10 MG 00 every 6 Medicin tablet hours as e needed. prochlorper 2-0 Yes 10mg Take 1 [facility] azine 3-11 Tablet by [place] (COMPAZINE) 00:00: mouth of 10 MG 00 every 6 Medicin tablet hours as e needed. prochlorper 2-0 Yes 10mg Take 1 [facility] azine 3-11 Tablet by [place] (COMPAZINE) 00:00: mouth of 10 MG 00 [...] 1 [facility] azine 3-11 Tablet by [place] (COMPAZINE) 00:00: mouth of 10 MG 00 every 6 Medicin tablet hours as e needed. prochlorper 2-0 Yes 10mg Take 1 [facility] azine 3-11 Tablet by [place] (COMPAZINE) 00:00: mouth of 10 MG 00 every 6 Medicin tablet hours as e needed. prochlorper 2021-0 Yes 10mg Take 1 [facility] azine 3-11 Tablet by [place] (COMPAZINE) 00:00: mouth of 10 MG 00 every 6 Medicin tablet hours as e needed. prochlorper 2021-0 Yes 10mg Take 1 [facility] azine 3-11 Tablet by [place] (COMPAZINE) 00:00: mouth of 10 MG 00 every 6 Medicin tablet hours as e needed. prochlorper 2021-0 Yes 10mg Take 1 [facility] azine 3-11 Tablet by [place] (COMPAZINE) 00:00: mouth of 10 MG 00 every 6 Medicin tablet hours as e needed. prochlorper 2021-0 Yes 1{tbl} Take [address] [facility] [address] [facility] azine 3-11 tablet by [facility] (COMPAZINE) 00:00: mouth Medic al 10 MG 00 every 6 Center tablet (six) hours as needed. prochlorper 2-0 2022- No 10mg Take 1 [facility] azine 3-11 10-21 Tablet by [place] (COMPAZINE) 00:00: 00:00 mouth of 10 MG 00 :00 every 6 Medicin tablet hours as e needed. prochlorper 2-0 2022- No 10mg Take 1 [facility] azine 3-11 10-21 Tablet by [place] (COMPAZINE) 00:00: 00:00 mouth of 10 MG 00 :00 every 6 Medicin tablet hours as e needed. candesartan 2022-0 Yes [id number] TAKE 1 [facility] (ATACAND) 3-04 TABLET BY [facility] 32 MG 00:00: MOUTH of tablet 00 EVERY DAY Medicin e candesartan 2022-0 Yes [id number] TAKE 1 [facility] (ATACAND) 3-04 TABLET BY [facility] 32 MG 00:00: MOUTH of tablet 00 EVERY DAY Medicin e azithromyci 2021- No 500mg Take 1 [facility] 06-02- Tablet by [place] (ZITHROMAX) 00:00: 04:59 mouth 3 of 500 MG 00 :00 times Medicin tablet weekly for e 30 days. moxifloxaci 2021- No 400mg Take 1 [facility] (AVELOX) 06-02 Tablet by [facility] 400 MG 00:00: 04:59 mouth of tablet 00 :00 daily for Medicin 30 days. e ethambutol 2021- No 400mg Take 1 [facility] (MYAMBUTOL) 06-02 Tablet by [facility] 400 MG 00:00: 04:59 mouth 3 of tablet 00 :00 times Medicin weekly for e 30 days. azithromyci 2021- No 500mg Take 1 [facility] 06-02 Tablet by [place] (ZITHROMAX) 00:00: 04:59 mouth 3 of 500 MG 00 :00 times Medicin tablet weekly for e 30 days. moxifloxaci 2021- No 400mg Take 1 [facility] (AVELOX) 06-02 Tablet by [facility] 400 MG 00:00: 04:59 mouth of tablet 00 :00 daily for Medicin 30 days. e ethambutol 2021- No 400mg Take 1 [facility] (MYAMBUTOL) 06-02 Tablet by [facility] 400 MG 00:00: 04:59 mouth 3 of tablet 00 :00 times Medicin weekly for e 30 days. azithromyci 2021- No 500mg Take 1 [facility] 06-02- Tablet by [place] (ZITHROMAX) 00:00: 04:59 mouth 3 of 500 MG 00 :00 times Medicin tablet weekly for e 30 days. moxifloxaci 2021- No 400mg Take 1 [facility] (AVELOX) 06-02 Tablet by [facility] 400 MG 00:00: 04:59 mouth of tablet 00 :00 daily for Medicin 30 days. e ethambutol 2021-0 2021- No 400mg Take 1 [facility] (MYAMBUTOL) 307-03 Tablet by [facility] 400 MG 00:00: 04:59 mouth 3 of tablet 00 :00 times Medicin weekly for e 30 days. Cyanocobala Yes Take by [facility] min (B-12 2-23 mouth. [facility] [place]) 10:14: of 30 Medicin e alprazolam 0 Yes .5mg Take 0.5 [facility] (XANAX) 0.5 2-23 mg by [place] MG tablet 10:14: mouth of 30 nightly as Medicin needed for e Sleep. estrogens, 0 Yes 1.25mg Take 1.25 [facility] conjugated, 2-23 mg by [facility] (PREMARIN) 10:14: mouth of 1.25 MG 30 daily. Medicin tablet e montelukast Yes 10mg Take 10 mg [facility] (SINGULAIR) 2-23 by mouth [facility] 10 MG 10:14: daily. of tablet 30 Medicin e omeprazole Yes 40mg Take 40 mg [facility] (PRILOSEC) 2-23 by mouth [facility] 40 MG 10:14: daily. of capsule 30 Medicin e MAGNESIUM Yes Take by [facility] [place] 2-23 mouth two [facility] 10:14: times of 30 daily. Medicin e acetaminoph Yes 1000mg Take 1,000 [facility] en 2-23 mg by [place] (TYLENOL) 10:14: mouth as of 500 mg 30 needed for Medicin tablet Pain. e gabapentin Yes 300mg Take 300 [facility] (NEURONTIN) 2-23 mg by [place] 300 MG 10:14: mouth 3 of capsule 30 times Medicin daily. e oxybutynin 0 Yes 10mg Take 10 mg [facility] (DITROPAN-X 2-23 by mouth [facility]) 10 MG CR 10:14: as needed. of tablet 30 Medicin e furosemide 0 Yes 20mg Take 20 mg [facility] (LASIX) 20 2-23 by mouth [facility] MG tablet 10:14: daily. of 30 Medicin e Cyanocobala Yes Take by [facility] min (B-12 2-23 mouth. [place]) 10:14: of 30 Medicin e alprazolam 2021-0 Yes .5mg Take 0.5 [facility] (XANAX) 0.5 2-23 mg by [place] MG tablet 10:14: mouth of 30 nightly as Medicin needed for e Sleep. estrogens, 2021-0 Yes 1.25mg Take 1.25 [facility] conjugated, 2-23 mg by [facility] (PREMARIN) 10:14: mouth of 1.25 MG 30 daily. Medicin tablet e montelukast 2021-0 Yes 10mg Take 10 mg [facility] (SINGULAIR) 2-23 by mouth [facility] 10 MG 10:14: daily. of tablet 30 Medicin e omeprazole 2021-0 Yes 40mg Take 40 mg [facility] (PRILOSEC) 2-23 by mouth [facility] 40 MG 10:14: daily. of capsule 30 Medicin e MAGNESIUM 2021-0 Yes Take by [facility] [place] 2-[facility] mouth two [facility] 10:14: times of 30 daily. Medicin e acetaminoph 2021-0 Yes 1000mg Take 1,000 [facility] en 2-23 mg by [place] (TYLENOL) 10:14: mouth as of 500 mg 30 needed for Medicin tablet Pain. e gabapentin 2021-0 Yes 300mg Take 300 [facility] (NEURONTIN) 2-23 mg by [place] 300 MG 10:14: mouth 3 of capsule [...] 300 [facility] (NEURONTIN) 2-18 mg by [place] 300 MG 08:23: mouth 3 of capsule [...] Medicin e Cyanocobala 2021-0 Yes Take by [facility] min (B-12 2-18 mouth. [place]) 08:17: of 51 Medicin e alprazolam 2021-0 Yes .5mg Take 0.5 [facility] (XANAX) 0.5 2-18 mg by [facility] MG tablet 08:17: mouth of 51 nightly as Medicin needed for e Sleep. estrogens, 2021-0 Yes 1.25mg Take 1.25 [facility] conjugated, 2-18 mg by [place] (PREMARIN) 08:17: mouth of 1.25 MG 51 daily. Medicin tablet e montelukast 2021-0 Yes 10mg Take 10 mg [facility] (SINGULAIR) 2-18 by mouth [facility] 10 MG 08:17: daily. of tablet 51 Medicin e omeprazole 2021-0 Yes 40mg Take 40 mg [facility] (PRILOSEC) 2-18 by mouth [facility] 40 MG 08:17: daily. of capsule 51 Medicin e MAGNESIUM 2021-0 Yes Take by [facility] [place] 2-18 mouth two [facility] 08:17: times of 51 daily. Medicin e acetaminoph 0 Yes 1000mg Take 1,000 [facility] en 2-18 mg by [place] (TYLENOL) 08:17: mouth as of 500 mg 51 needed for Medicin tablet Pain. e Cyanocobala 2021-0 Yes Take by [facility] min (B-12 1-28 mouth. [place]) 08:21: of 41 Medicin e alprazolam 2021-0 Yes .5mg Take 0.5 [facility] (XANAX) 0.5 1-28 mg by [place] MG tablet 08:21: mouth of 41 nightly as Medicin needed for e Sleep. estrogens, 2021-0 Yes 1.25mg Take 1.25 [facility] conjugated, 1-28 mg by [facility] (PREMARIN) 08:21: mouth of 1.25 MG 41 daily. Medicin tablet e montelukast 2021-0 Yes 10mg Take 10 mg [facility] (SINGULAIR) 1-28 by mouth [facility] 10 MG 08:21: daily. of tablet 41 Medicin e omeprazole 2021-0 Yes 40mg Take 40 mg [facility] (PRILOSEC) 1-28 by mouth [facility] 40 MG 08:21: daily. of capsule 41 Medicin e MAGNESIUM 2021-0 Yes Take by [facility] [place] 04-[facility] mouth two [facility] 08:21: times of 41 daily. Medicin e acetaminoph 2021-0 Yes 1000mg Take 1,000 [facility] 1-28 mg by [place] (TYLENOL) 08:21: mouth as of 500 mg 41 needed for Medicin tablet Pain. e Cyanocobala 2021-0 Yes Take by [facility] min (B-12 - mouth. [facility] [place]) 08:21: of 41 Medicin e alprazolam 2021-0 Yes .5mg Take 0.5 [facility] (XANAX) 0.5 -28 mg by [facility] MG tablet 08:21: mouth of 41 nightly as Medicin needed for e Sleep. estrogens, 2021-0 Yes 1.25mg Take 1.25 [facility] conjugated, 1-28 mg by [place] (PREMARIN) 08:21: mouth of 1.25 MG 41 daily. Medicin tablet e montelukast 2021-0 Yes 10mg Take 10 mg [facility] (SINGULAIR) 04-30 by mouth [facility] 10 MG 08:21: daily. of tablet 41 Medicin e omeprazole 2021-0 Yes 40mg Take 40 mg [facility] (PRILOSEC) 04-30 by mouth [facility] 40 MG 08:21: daily. of capsule 41 Medicin e MAGNESIUM 2021-0 Yes Take by [facility] [place] 04-30 mouth two [place] 08:21: times of 41 daily. Medicin e acetaminoph 2021-0 Yes 1000mg Take 1,000 [facility] en 1-28 mg by [place] (TYLENOL) 08:21: mouth as of 500 mg [...] No 60mg Take 1 [facility] (CYMBALTA) 1-29 07- capsule by [facility] 60 MG 00:00: 00:00 mouth of capsule 00 :00 daily. Medicin e Axitinib 2021- No [id number] 3mg Take 3 mg [facility] MG TABS 04-30 by mouth [place] 00:00: 05:59 two times of 00 :00 daily for Medicin 30 days. e Axitinib 2021-2021- No [id number] 3mg Take 3 mg [facility] MG TABS 04-30 by mouth [place] 00:00: 05:59 two times of 00 :00 daily for Medicin 30 days. e Axitinib 1 2021- No [id number] 3mg Take 3 mg [facility] MG TABS 04-30 by mouth [place] 00:00: 05:59 two times of 00 :00 daily for Medicin 30 days. e Axitinib 1 2021- No [id number] 3mg Take 3 mg [facility] MG TABS 04-30 by mouth [place] 00:00: 05:59 two times of 00 :00 daily for Medicin 30 days. e levofloxaci 2021-2021- No [id number] 750mg Take 1 [facility] 04-27 Tablet by [place] (LEVAQUIN) 00:00: 05:59 mouth of 750 MG 00 :00 daily for Medicin tablet 7 days. e levofloxaci 2021- No [id number] 750mg Take 1 [facility] n 04-27 Tablet by [place] (LEVAQUIN) 00:00: 05:59 mouth of 750 MG 00 :00 daily for Medicin tablet 7 days. e Potassium 2021- No 1{tbl} Take 1 [facility] 99 MG TABS 04-20 Tablet by [facility] leg 08:49: 00:00 mouth of 35 :00 daily. Medicin e Cyanocobala Yes Take by [facility] min (B-12 -18 mouth. [place]) 07:58: of 32 Medicin e alprazolam Yes .5mg Take 0.5 [facility] (XANAX) 0.5 1-18 mg by [place] MG tablet 07:58: mouth of 32 nightly as Medicin needed for e Sleep. estrogens, Yes 1.25mg Take 1.25 [facility] conjugated, 1-18 mg by [place] (PREMARIN) 07:58: mouth of 1.25 MG 32 daily. Medicin tablet e montelukast Yes 10mg Take 10 mg [facility] (SINGULAIR) -18 by mouth [facility] 10 MG 07:58: daily. of tablet 32 Medicin e omeprazole Yes 40mg Take 40 mg [facility] (PRILOSEC) -18 by mouth [facility] 40 MG 07:58: daily. of capsule 32 Medicin e MAGNESIUM Yes Take by [facility] [place] -18 mouth two [facility] 07:58: times of 32 daily. Medicin e acetaminoph Yes 1000mg Take 1,000 [facility] 1-18 mg by [place] (TYLENOL) 07:58: mouth as of 500 mg 32 needed for Medicin tablet Pain. e spironolact 2022-0 Yes 25mg Take 1 [facility] one 1-18 Tablet by [place] (ALDACTONE) 00:00: mouth of 25 MG 00 daily. Medicin tablet e levothyroxi 2022-0 Yes 100ug Take 1 [facility] ne 1-18 Tablet by [place] (SYNTHROID) 00:00: mouth of 100 MCG 00 daily. Medicin tablet e dexamethaso 2022-0 Yes Take at 11 [facility] 1 MG 1-18 pm on the [place] TABS 00:00: night of 00 before lab Medicin draw next e day at 8 am - and only after you do the salivary cortisol testing spironolact 2022-0 Yes 25mg Take 1 [facility] one 1-18 Tablet by [place] (ALDACTONE) 00:00: mouth of 25 MG 00 daily. Medicin tablet e levothyroxi 2022-0 Yes 100ug Take 1 [facility] ne 1-18 Tablet by [place] (SYNTHROID) 00:00: mouth of 100 MCG 00 daily. Medicin tablet e dexamethaso 2022-0 Yes Take at 11 [facility] ne 1 MG 1-18 pm on the [facility] TABS 00:00: night of 00 before lab Medicin draw next e day at 8 am - and only after you do the salivary cortisol testing spironolact 2022-0 Yes 25mg Take 1 [facility] one 1-18 Tablet by [place] (ALDACTONE) 00:00: mouth of 25 MG 00 daily. Medicin tablet e levothyroxi 2022-0 Yes 100ug Take 1 [facility] ne 1-18 Tablet by [place] (SYNTHROID) 00:00: mouth of 100 MCG 00 daily. Medicin tablet e dexamethaso 2022-0 Yes Take at 11 [facility] ne 1 MG 1-18 pm on the [facility] TABS 00:00: night of 00 before lab Medicin draw next e day at 8 am - and only after you do the salivary cortisol testing spironolact 2022-0 Yes 25mg Take 1 [facility] one 1-18 Tablet by [place] (ALDACTONE) 00:00: mouth of 25 MG 00 daily. Medicin tablet e levothyroxi 2022-0 Yes 100ug Take 1 [facility] ne 1-18 Tablet by [place] (SYNTHROID) 00:00: mouth of 100 MCG 00 daily. Medicin tablet e dexamethaso 2022-0 Yes Take at 11 [facility] ne 1 MG 1-18 pm on the [facility] TABS 00:00: night of 00 before lab Medicin draw next e day at 8 am - and only after you do the salivary cortisol testing spironolact 2022-0 Yes 25mg Take 1 [facility] one 1-18 Tablet by [place] (ALDACTONE) 00:00: mouth of 25 MG 00 daily. Medicin tablet e levothyroxi 2-0 Yes 100ug Take 1 [facility] ne 1-18 Tablet by [place] (SYNTHROID) 00:00: mouth of 100 MCG 00 daily. Medicin tablet e dexamethaso 2-0 Yes Take at 11 [facility] ne 1 MG 1-18 pm on the [place] TABS 00:00: night of 00 before lab Medicin draw next e day at 8 am - and only after you do the salivary cortisol testing spironolact 2-0 Yes 25mg Take 1 [facility] one 1-18 Tablet by [place] (ALDACTONE) 00:00: mouth of 25 MG 00 daily. Medicin tablet e levothyroxi 2-0 Yes 100ug Take 1 [facility] ne 1-18 Tablet by [place] (SYNTHROID) 00:00: mouth of 100 MCG 00 daily. Medicin tablet e dexamethaso 2-0 Yes Take at 11 [facility] ne 1 MG 1-18 pm on the [place] TABS 00:00: night of 00 before lab Medicin draw next e day at 8 am - and only after you do the salivary cortisol testing levothyroxi 2-0 Yes 100ug Take 1 [facility] ne 1-18 Tablet by [place] (SYNTHROID) 00:00: mouth of 100 MCG 00 daily. Medicin tablet e levothyroxi 2-0 Yes 100ug Take 1 [facility] ne 1-18 Tablet by [place] (SYNTHROID) 00:00: mouth of 100 MCG 00 daily. Medicin tablet e dexamethaso 2-0 2021- No Take at 11 [facility] ne 1 MG 1-18 03-11 pm on the [facility] e TABS 00:00: 00:00 night of 00 :00 before lab Medicin draw next e day at 8 am - and only after you do the salivary cortisol testing lovastatin 2-0 2022- No 10mg QD Take [address] [facility] (MEVACOR) 04-14 by [facility] 10 MG 13:27: 00:00 nightly. Medical tablet 02 :00 Center escitalopra 2-0 2022- No 20mg QD Take [address] [facility] m oxalate 04-14 by mouth [facility] (LEXAPRO) 13:27: 00:00 daily. Medic al 20 MG 02 :00 Center tablet lovastatin 2021-0 2022- No 10mg QD Take [address] [facility] (MEVACOR) 04-14 by mouth [facility] 10 MG 13:27: 00:00 nightly. Medical tablet 02 :00 Center escitalopra 2-0 2022- No 20mg QD Take [address] [facility] oxalate 04-14 by mouth [facility] (LEXAPRO) 13:27: 00:00 daily. Medic al 20 MG 02 :00 Center tablet lovastatin 2-0 2- No 10mg QD Take [address] [facility] (MEVACOR) 04-14 by mouth [facility] 10 MG 13:27: 00:00 nightly. Medical tablet 02 :00 Center escitalopra 2-0 2022- No 20mg QD Take [address] [facility] m oxalate 04-14 by mouth [facility] (LEXAPRO) 13:27: 00:00 daily. Medic al 20 MG 02 :00 Center tablet lovastatin 2-0 2022- No 10mg QD Take [address] [facility] (MEVACOR) 04-14 by mouth [facility] 10 MG 13:27: 00:00 nightly. Medical tablet 02 :00 Center escitalopra 2022-0 2022- No 20mg QD Take [address] [facility] m oxalate 04-14 by mouth [facility] (LEXAPRO) 13:27: 00:00 daily. Medic al 20 MG 02 :00 Center tablet lovastatin 2-0 2022- No 10mg QD Take [address] [facility] (MEVACOR) 04-14 by mouth [facility] 10 MG 13:27: 00:00 nightly. Medical tablet 02 :00 Center escitalopra 2022-0 2022- No 20mg QD Take [address] [facility] m oxalate 04-14 by mouth [facility] (LEXAPRO) 13:27: 00:00 daily. Medic al 20 MG 02 :00 Center tablet lovastatin 2021-0 2021- No 10mg QD Take [address] [facility] (MEVACOR) 04-14 by mouth [facility] 10 MG 13:27: 00:00 nightly. Medical tablet 02 :00 Center escitalopra 2021-0 2- No 20mg QD Take [address] [facility] m oxalate 04-14 by mouth [facility] (LEXAPRO) 13:27: 00:00 daily. Medic al 20 MG 02 :00 Center tablet escitalopra 2021-0 202- No 20mg Take 20 mg [facility] (LEXAPRO) 04-09 by mouth [facility] 20 MG 08:55: 00:00 daily. of tablet 42 :00 Medicin e escitalopra 2021-0 2021- No 20mg Take 20 mg [facility] m (LEXAPRO) 04-09 by mouth [facility] 20 MG 08:55: 00:00 daily. of tablet 42 :00 Medicin e Cyanocobala 0 Yes Take by [facility] (B-12 04-09 mouth. [facility] OR) 08:14: of 40 Medicin e alprazolam Yes .5mg Take 0.5 [facility] (XANAX) 0.5 -07 mg by [facility] MG tablet 08:14: mouth of 40 nightly as Medicin needed for e Sleep. estrogens, Yes 1.25mg Take 1.25 [facility] conjugated, 1-07 mg by [facility] (PREMARIN) 08:14: mouth of 1.25 MG 40 daily. Medicin tablet e montelukast 0 Yes 10mg Take 10 mg [facility] (SINGULAIR) -07 by mouth [facility] 10 MG 08:14: daily. of tablet 40 Medicin e omeprazole 0 Yes 40mg Take 40 mg [facility] (PRILOSEC) 07 by mouth [facility] 40 MG 08:14: daily. of capsule 40 Medicin e MAGNESIUM 0 Yes Take by [facility] 07 mouth two [facility] 08:14: times of 40 daily. Medicin e acetaminoph 2022-0 Yes 1000mg Take 1,000 [facility] 1-07 mg by [place] (TYLENOL) 08:14: mouth as of 500 mg 40 needed for Medicin tablet Pain. e Potassium 2-0 Yes 1{tbl} Take 1 [facility] 99 MG TABS 1-07 Tablet by [facility] 08:14: mouth of 40 daily. Medicin e Cyanocobala 2021-0 Yes Take by [facility] min (B-12 1-07 mouth. [facility] [place]) 08:14: of 40 Medicin e alprazolam 2021-0 Yes .5mg Take 0.5 [facility] (XANAX) 0.5 1-07 mg by [place] MG tablet 08:14: mouth of 40 nightly as Medicin needed for e Sleep. estrogens, 2021-0 Yes 1.25mg Take 1.25 [facility] conjugated, 1-07 mg by [place] (PREMARIN) 08:14: mouth of 1.25 MG 40 daily. Medicin tablet e montelukast 2021-0 Yes 10mg Take 10 mg [facility] (SINGULAIR) 1-07 by mouth [facility] 10 MG 08:14: daily. of tablet 40 Medicin e omeprazole 2021-0 Yes 40mg Take 40 mg [facility] (PRILOSEC) 1-07 by mouth [facility] 40 MG 08:14: daily. of capsule 40 Medicin e MAGNESIUM 2021-0 Yes Take by [facility] [place] 1-07 mouth two [facility] 08:14: times of 40 daily. Medicin e acetaminoph 2021-0 Yes 1000mg Take 1,000 [facility] 1-07 mg by [place] (TYLENOL) 08:14: mouth as of 500 mg 40 needed for Medicin tablet Pain. e Potassium 2021-0 Yes 1{tbl} Take 1 [facility] 99 MG TABS 1-07 Tablet by [facility] 08:14: mouth of 40 daily. Medicin e duloxetine 2-0 Yes 30mg Take 1 [facility] (CYMBALTA) 1-07 capsule by [facility] 30 MG 00:00: mouth of capsule 00 daily. Medicin e duloxetine 2-0 Yes 30mg Take 1 [facility] (CYMBALTA) 1-07 capsule by [facility] 30 MG 00:00: mouth of capsule 00 daily. Medicin e duloxetine 2022-0 Yes 30mg Take 1 [facility] (CYMBALTA) [...] 20mg Take 20 mg [facility] (LEXAPRO) 2-13 by mouth [facility] 20 MG 09:56: daily. of tablet 03 Medicin e Cyanocobala 2020-04 Yes Take by [facility] min (B-12 2-13 mouth. [facility] [place]) 09:56: of 03 Medicin e alprazolam 2020-04 Yes .5mg Take 0.5 [facility] (XANAX) 0.5 2-13 mg by [facility] MG tablet 09:56: mouth of 03 nightly as Medicin needed for e Sleep. estrogens, 2020-04 Yes 1.25mg Take 1.25 [facility] conjugated, 2-13 mg by [facility] (PREMARIN) 09:56: mouth of 1.25 MG 03 daily. Medicin tablet e montelukast 2020-04 Yes 10mg Take 10 mg [facility] (SINGULAIR) 2-13 by mouth [facility] [...] e acetaminoph 2020-04 Yes 1000mg Take 1,000 [facility] en 2-13 mg by [place] (TYLENOL) 09:56: mouth as of 500 mg 03 needed for Medicin tablet Pain. e Potassium 2020-04 Yes 1{tbl} Take 1 [facility] 99 MG TABS 2-13 Tablet by [facility] 09:56: mouth of 03 daily. Medicin e escitalopra 2020-04 Yes 20mg Take 20 mg [facility] (LEXAPRO) 2-10 by mouth [facility] 20 MG 13:43: daily. of tablet 47 Medicin e Cyanocobala 2020-04 Yes Take by [facility] min (B-12 2-10 mouth. [facility] [place]) 13:43: of 47 Medicin e alprazolam 2020-04 Yes .5mg Take 0.5 [facility] (XANAX) 0.5 2-10 mg by [place] MG tablet 13:43: mouth of 47 nightly as Medicin needed for e Sleep. estrogens, 2020-04 Yes 1.25mg Take 1.25 [facility] conjugated, 2-10 mg by [place] (PREMARIN) 13:43: mouth of 1.25 MG 47 daily. Medicin tablet e montelukast 2020-04 Yes 10mg Take 10 mg [facility] (SINGULAIR) 2-10 by mouth [facility] [...] Take 1,000 [facility] en 2-10 mg by [place] (TYLENOL) 13:43: mouth as of 500 mg 47 needed for Medicin tablet Pain. e Potassium 2020-04 Yes 1{tbl} Take 1 [facility] MG TABS 2-10 Tablet by [facility] 13:43: mouth of 47 daily. Medicin e escitalopra 2020-04 Yes 20mg Take 20 mg [facility] (LEXAPRO) 2-10 by mouth [facility] 20 MG 08:12: daily. of tablet 05 Medicin e Cyanocobala 2020-04 Yes Take by [facility] min (B-12 2-10 mouth. [facility] [place]) 08:12: of 05 Medicin e alprazolam 2020-04 Yes .5mg Take 0.5 [facility] (XANAX) 0.5 2-10 mg by [place] MG tablet 08:12: mouth of 05 nightly as Medicin needed for e Sleep. estrogens, 2020-04 Yes 1.25mg Take 1.25 [facility] conjugated, 2-10 mg by [place] (PREMARIN) 08:12: mouth of 1.25 MG 05 daily. Medicin tablet e montelukast 2020-04 Yes 10mg Take 10 mg [facility] (SINGULAIR) 2-10 by mouth [facility] 10 MG 08:12: daily. of tablet 05 Medicin e omeprazole 2020-04 Yes 40mg Take 40 mg [facility] (PRILOSEC) 2-10 by mouth [facility] 40 MG 08:12: daily. of capsule 05 Medicin e MAGNESIUM 2020-04 Yes Take by [facility] r [place] 2-10 mouth two [facility] 08:12: times of 05 daily. Medicin e acetaminoph 2020-04 Yes 1000mg Take 1,000 [facility] 2-10 mg by [place] (TYLENOL) 08:12: mouth as of 500 mg 05 needed for Medicin tablet Pain. e Potassium 2020-04 Yes 1{tbl} Take 1 [facility] MG TABS 2-10 Tablet by [facility] 08:12: mouth of 05 daily. Medicin e Levothyroxi 2020-04 Yes [id number] 75ug Take 75 [facility] ne Sodium 2-10 mcg by [place] 75 MCG CAPS 00:00: mouth of 00 daily. Medicin e Levothyroxi 2020-04 Yes [id number] 75ug Take 75 [facility] ne Sodium 2-10 mcg by [place] 75 MCG CAPS 00:00: mouth of 00 daily. Medicin e Levothyroxi 2020-04 Yes [id number] 75ug Take 75 [facility] ne Sodium 2-10 mcg by [place] 75 MCG CAPS 00:00: mouth of 00 daily. Medicin e Levothyroxi 2020-04 Yes [id number] 75ug Take 75 [facility] ne Sodium 2-10 mcg by [place] 75 MCG CAPS 00:00: mouth of 00 daily. Medicin e Levothyroxi 2020-04 Yes [id number] 75ug Take 75 [facility] ne Sodium 2-10 mcg by [place] 75 MCG CAPS 00:00: mouth of 00 daily. Medicin e Levothyroxi 2020-04- No [id number] 75ug Take 75 [facility] ne Sodium 2-10 01-18 mcg by [place] 75 MCG CAPS 00:00: 00:00 mouth of [...] escitalopra 2020-04 Yes 20mg Take 20 mg [facility] m (LEXAPRO) -19 by mouth [facility] 20 MG 08:25: daily. of tablet 53 Medicin e Cyanocobala 2020-04 Yes Take by [facility] min (B-12 - mouth. [place]) 08:25: of 53 Medicin e alprazolam 2020-04 Yes .5mg Take 0.5 [facility] (XANAX) 0.5 1-19 mg by [place] MG tablet 08:25: mouth of 53 nightly as Medicin needed for e Sleep. estrogens, 2020-04 Yes 1.25mg Take 1.25 [facility] conjugated, 1-19 mg by [place] (PREMARIN) 08:25: mouth of 1.25 MG 53 [...] Take 1,000 [facility] 1-19 mg by [place] (TYLENOL) 08:25: mouth as of 500 mg 53 needed for Medicin tablet Pain. e Potassium 2020-04 Yes 1{tbl} Take 1 [facility] MG TABS -19 Tablet by [facility] 08:25: mouth of 53 daily. Medicin e escitalopra 2020-04 Yes 20mg Take 20 mg [facility] m (LEXAPRO) 19 by mouth [facility] [facility] 20 MG 08:25: daily. of tablet 53 Medicin e Cyanocobala 2020-04 Yes Take by [facility] min (B-12 - mouth. [place]) 08:25: of 53 Medicin e alprazolam 2020-04 Yes .5mg Take 0.5 [facility] (XANAX) 0.5 1-19 mg by [place] MG tablet 08:25: mouth of 53 nightly as Medicin needed for e Sleep. estrogens, 2020-04 Yes 1.25mg Take 1.25 [facility] conjugated, 1-19 mg by [place] (PREMARIN) 08:25: mouth of 1.25 MG 53 [...] Take 1,000 [facility] 1-19 mg by [place] (TYLENOL) 08:25: mouth as of 500 mg 53 needed for Medicin tablet Pain. e Potassium 2020-04 Yes 1{tbl} Take 1 [facility] MG TABS -19 Tablet by [facility] 08:25: mouth of 53 daily. Medicin e escitalopra 2020-04 Yes 20mg Take 20 mg [facility] m (LEXAPRO) 04-11 by mouth [facility] 20 MG 10:04: daily. of tablet 01 Medicin e Cyanocobala 2020-04 Yes Take by [facility] min (B-12 - mouth. [place]) 10:04: of 01 Medicin e alprazolam 2020-04 Yes .5mg Take 0.5 [facility] (XANAX) 0.5 1-09 mg by [place] MG tablet 10:04: mouth of 01 nightly as Medicin needed for e Sleep. estrogens, 2020-04 Yes 1.25mg Take 1.25 [facility] conjugated, 1-09 mg by [place] (PREMARIN) 10:04: mouth of 1.25 MG 01 daily. Medicin tablet e montelukast 2020-04 Yes 10mg Take 10 mg [facility] (SINGULAIR) 04-11 by mouth [facility] [facility] 10 MG 10:04: daily. of tablet 01 Medicin e omeprazole 2020-04 Yes 40mg Take 40 mg [facility] (PRILOSEC) 1-09 by mouth [facility] 40 MG 10:04: daily. of capsule 01 Medicin e MAGNESIUM 2020-04 Yes Take by [facility] [place] 1-09 mouth two [facility] 10:04: times of 01 daily. Medicin e acetaminoph 2020-04 Yes 1000mg Take 1,000 [facility] 1-09 mg by [facility] (TYLENOL) 10:04: mouth as of 500 mg 01 needed for Medicin tablet Pain. e Potassium 2020-04 Yes 1{tbl} Take 1 [facility] MG TABS 1-09 Tablet by [facility] 10:04: mouth of 01 daily. Medicin e escitalopra 2020-04 Yes 20mg Take 20 mg [facility] m (LEXAPRO) 0-29 by mouth [place] [facility] 20 MG 07:44: daily. of tablet 08 Medicin e Cyanocobala 2020-04 Yes Take by [facility] (B-12 0-29 mouth. [facility] [place]) 07:44: of 08 Medicin e alprazolam 2020-04 Yes .5mg Take 0.5 [facility] (XANAX) 0.5 0-29 mg by [facility] MG tablet 07:44: mouth of 08 nightly as Medicin needed for e Sleep. estrogens, 2020-04 Yes 1.25mg Take 1.25 [facility] conjugated, 0-29 mg by [place] (PREMARIN) 07:44: mouth of 1.25 MG 08 [...] e acetaminoph 2020-04 Yes 1000mg Take 1,000 [facility] en (EXTRA 0-29 mg by [facility] [...] Medicin e Cyanocobala 2020-04 Yes Take by [facility] (B-12 0-29 mouth. [facility] [place]) 07:44: of 08 Medicin e alprazolam 2020-04 Yes .5mg Take 0.5 [facility] (XANAX) 0.5 0-29 mg by [facility] MG tablet 07:44: mouth of 08 nightly as Medicin needed for e Sleep. estrogens, 2020-04 Yes 1.25mg Take 1.25 [facility] conjugated, 0-29 mg by [place] (PREMARIN) 07:44: mouth of 1.25 MG 08 [...] e acetaminoph 2020-04 Yes 1000mg Take 1,000 [facility] en (EXTRA 0-29 mg by [employer] [...] Medicin e Cyanocobala 2020-04 Yes Take by [facility] min (B-12 0-08 mouth. [place]) 08:56: of 21 Medicin e alprazolam 2020-04 Yes .5mg Take 0.5 [facility] (XANAX) 0.5 0-08 mg by [place] MG tablet 08:56: mouth of 21 nightly as Medicin needed for e Sleep. estrogens, 2020-04 Yes 1.25mg Take 1.25 [facility] conjugated, 0-08 mg by [facility] (PREMARIN) 08:56: mouth of 1.25 MG 21 daily. Medicin tablet e montelukast 2020-04 Yes 10mg Take 10 mg [facility] (SINGULAIR) 0-08 by mouth [facility] 10 [...] e acetaminoph 2020-04 Yes 1000mg Take 1,000 [facility] en (EXTRA 0-08 mg by [place] STRENGTH 08:56: mouth as of PAIN 21 needed for Medicin RELIEF) 500 Pain. e mg tablet Potassium 2020-04 Yes 1{tbl} Take 1 [facility] MG TABS 0-08 Tablet by [facility] 08:56: mouth of 21 daily. Medicin e hydrocodone 2020-04 Yes [id number] 1{tbl} Take 1 [facility] -acetaminop 0-08 Tablet by [facility] (NORCO) 00:00: mouth at of 5-325 mg 00 bedtime. Medicin tablet pain e hydrocodone 2020-04 Yes [id number] 1{tbl} Take 1 [facility] -acetaminop 0-08 Tablet by [facility] (NORCO) 00:00: mouth at of 5-325 mg 00 bedtime. Medicin tablet pain e hydrocodone 2020-04 Yes [id number] 1{tbl} Take 1 [facility] -acetaminop 0-08 Tablet by [facility] (NORCO) 00:00: mouth at of 5-325 mg 00 bedtime. Medicin tablet pain e hydrocodone 2020-04- No [id number] 1{tbl} Take 1 [facility] -acetaminop 0-08 09 Tablet by [facility] [place] [facility] ([facility]) 00:00: 00:00 mouth at o f 5-325 mg 00 :00 bedtime. Medicin tablet pain e hydrocodone 2020-04- No [id number] 1{tbl} Take 1 [facility] -acetaminop 0-08 -08 Tablet by [facility] [facility] ([employer]) 00:00: 00:00 mouth at o f 5-325 mg 00 :00 bedtime. Medicin tablet pain e estrogens, Yes 1.25mg Take 1.25 [facility] conjugated, 9-17 mg by [facility] (PREMARIN) 08:38: mouth of 1.25 MG 02 daily. Medicin tablet e montelukast Yes 10mg Take 10 mg [facility] (SINGULAIR) 12-18 by mouth [facility] 10 MG 08:38: daily. of tablet 02 Medicin e escitalopra Yes 20mg Take 20 mg [facility] (LEXAPRO) 12-18 by mouth [place] [facility] 20 MG 08:38: daily. of tablet 02 Medicin e Cyanocobala Yes Take by [facility] (B-12 - mouth. [facility] [place]) 08:38: of 02 Medicin e alprazolam Yes .5mg Take 0.5 [facility] (XANAX) 0.5 9-17 mg by [place] MG tablet 08:38: mouth of 02 nightly as Medicin needed for e Sleep. estrogens, Yes 1.25mg Take 1.25 [facility] conjugated, 9-17 mg by [place] (PREMARIN) 08:38: mouth of 1.25 MG 02 daily. Medicin tablet e montelukast Yes 10mg Take 10 mg [facility] (SINGULAIR) -17 by mouth [place] [facility] 10 MG 08:38: daily. of tablet 02 Medicin e omeprazole Yes 40mg Take 40 mg [facility] (PRILOSEC) 12-18 by mouth [facility] 40 MG 08:38: daily. of capsule 02 Medicin e MAGNESIUM Yes Take by [facility] [place] 12-18 mouth two [facility] 08:38: times of 02 daily. Medicin e acetaminoph 2021-0 Yes 1000mg Take 1,000 [facility] en (EXTRA 9-17 mg by [facility] STRENGTH 08:38: mouth as of PAIN 02 needed for Medicin RELIEF) 500 Pain. e mg tablet Potassium Yes 1{tbl} Take 1 [facility] MG TABS - Tablet by [facility] 08:38: mouth of 02 daily. Medicin e escitalopra Yes 20mg Take 20 mg [facility] m (LEXAPRO) 12-18 by mouth [place] [facility] 20 MG 08:38: daily. of tablet 02 Medicin e Cyanocobala Yes Take by [facility] min (B-12 -17 mouth. [facility] [place]) 08:38: of 02 Medicin e alprazolam Yes .5mg Take 0.5 [facility] (XANAX) 0.5 -17 mg by [facility] MG tablet 08:38: mouth of 02 nightly as Medicin needed for e Sleep. estrogens, Yes 1.25mg Take 1.25 [facility] conjugated, 9-17 mg by [facility] (PREMARIN) 08:38: mouth of 1.25 MG 02 daily. Medicin tablet e montelukast Yes 10mg Take 10 mg [facility] (SINGULAIR) - by mouth [place] [facility] 10 MG 08:38: daily. of tablet 02 Medicin e omeprazole Yes 40mg Take 40 mg [facility] (PRILOSEC) - by mouth [facility] 40 MG 08:38: daily. of capsule 02 Medicin e omeprazole Yes 40mg Take 40 mg [facility] (PRILOSEC) 12-18 by mouth [facility] 40 MG 08:38: daily. of capsule 02 Medicin e MAGNESIUM Yes Take by [facility] [place] -17 mouth two [facility] 08:38: times of 02 daily. Medicin e MAGNESIUM 2020-0 Yes Take by [facility] [place] - mouth two [facility] 08:38: times of 02 daily. Medicin e acetaminoph Yes 1000mg Take 1,000 [facility] (EXTRA 9-17 mg by [facility] STRENGTH 08:38: mouth as of PAIN 02 needed for Medicin RELIEF) 500 Pain. e mg tablet Potassium Yes 1{tbl} Take 1 [facility] MG TABS 9-17 Tablet by [facility] 08:38: mouth of 02 daily. Medicin e acetaminoph Yes 1000mg Take 1,000 [facility] en (EXTRA 9-17 mg by [employer] STRENGTH 08:38: mouth as of PAIN 02 needed for Medicin RELIEF) 500 Pain. e mg tablet Potassium Yes 1{tbl} Take 1 [facility] MG TABS 9-17 Tablet by [facility] 08:38: mouth of 02 daily. Medicin e escitalopra 0 Yes 20mg Take 20 mg [facility] (LEXAPRO) 9-17 by mouth [place] [facility] 20 MG 08:38: daily. of tablet 02 Medicin e Cyanocobala Yes Take by [facility] min (B-12 - mouth. [facility] [place]) 08:38: of 02 Medicin e alprazolam Yes .5mg Take 0.5 [facility] (XANAX) 0.5 -17 mg by [place] MG tablet 08:38: mouth of 02 nightly as Medicin needed for e Sleep. estrogens, Yes 1.25mg Take 1.25 [facility] conjugated, 9-17 mg by [place] (PREMARIN) 08:38: mouth of 1.25 MG 02 daily. Medicin tablet e montelukast Yes 10mg Take 10 mg [facility] (SINGULAIR) 17 by mouth [facility] 10 MG 08:38: daily. of tablet 02 Medicin e omeprazole Yes 40mg Take 40 mg [facility] (PRILOSEC) 12-18 by mouth [facility] 40 MG 08:38: daily. of capsule 02 Medicin e MAGNESIUM Yes Take by [facility] [place] -17 mouth two [facility] 08:38: times of 02 daily. Medicin e acetaminoph Yes 1000mg Take 1,000 [facility] en (EXTRA 9-17 mg by [place] STRENGTH 08:38: mouth as of PAIN 02 needed for Medicin RELIEF) 500 Pain. e mg tablet Potassium Yes 1{tbl} Take 1 [facility] MG TABS 9-17 Tablet by [facility] 08:38: mouth of 02 daily. Medicin e escitalopra 0 Yes 20mg Take 20 mg [facility] m (LEXAPRO) 9-17 by mouth [place] [facility] 20 MG 08:38: daily. of tablet Medicin e Cyanocobala Yes Take by [facility] min (B-12 9-17 mouth. [facility] [place]) 08:38: of 02 Medicin e alprazolam Yes .5mg Take 0.5 [facility] (XANAX) 0.5 9-17 mg by [facility] MG tablet 08:38: mouth of 02 nightly as Medicin needed for e Sleep. carvedilol 0 Yes 25mg Take 1 [facility] ([facility]) [...] of 00 times Medicin daily. e carvedilol 0 Yes 25mg Take 1 [facility] (COREG) [...] 20mg Take 20 mg [facility] (LEXAPRO) 8-27 by mouth [facility] [facility] 20 MG 08:40: daily. of tablet 40 Medicin e Cyanocobala 2020-0 Yes Take by [facility] min (B-12 8- mouth. [facility] [place]) 08:40: of 40 Medicin e alprazolam Yes .5mg Take 0.5 [facility] (XANAX) 0.5 8-27 mg by [place] MG tablet 08:40: mouth of 40 nightly as Medicin needed for e Sleep. estrogens, Yes 1.25mg Take 1.25 [facility] conjugated, 8-27 mg by [place] (PREMARIN) 08:40: mouth of 1.25 MG 40 daily. Medicin tablet e montelukast Yes 10mg Take 10 mg [facility] (SINGULAIR) 8- by mouth [place] [facility] 10 MG 08:40: daily. of tablet 40 Medicin e omeprazole Yes 40mg Take 40 mg [facility] (PRILOSEC) 8 by mouth [facility] 40 MG 08:40: daily. of capsule 40 Medicin e MAGNESIUM Yes Take by [facility] [place] 11-27 mouth two [facility] 08:40: times of 40 daily. Medicin e escitalopra Yes 20mg Take 20 mg [facility] (LEXAPRO) 11-27 by mouth [place] [facility] 20 MG 08:40: daily. of tablet 40 Medicin e Cyanocobala Yes Take by [facility] min (B-12 11-27 mouth. [place]) 08:40: of 40 Medicin e alprazolam Yes .5mg Take 0.5 [facility] (XANAX) 0.5 8-27 mg by [place] MG tablet 08:40: mouth of 40 nightly as Medicin needed for e Sleep. estrogens, Yes 1.25mg Take 1.25 [facility] conjugated, 8-27 mg by [place] (PREMARIN) 08:40: mouth of 1.25 MG 40 daily. Medicin tablet e montelukast Yes 10mg Take 10 mg [facility] (SINGULAIR) 8- by mouth [place] [facility] 10 MG 08:40: daily. of tablet 40 Medicin e omeprazole Yes 40mg Take 40 mg [facility] (PRILOSEC) 8- by mouth [facility] 40 MG 08:40: daily. of capsule 40 Medicin e MAGNESIUM Yes Take by [facility] [place] 11-27 mouth two [facility] 08:40: times of 40 daily. Medicin e acetaminoph Yes 1000mg Take 1,000 [facility] en (EXTRA 8-27 mg by [place] STRENGTH 08:40: mouth as of PAIN 39 [...] Medicin e Cobalamine 2020- No Take by [facility] Combination 11-27 mouth. [facility] (FOLIC + 08:38: 00:00 of B12) 50 :00 Medicin 800-1000 e MCG TABS clonidine 2020- No .1mg Take 0.1 [facility] (CATAPRES) 11-27 mg by [place] 0.1 MG 08:38: 00:00 mouth as of tablet 29 :00 needed. Medicin e Acetaminoph 2020- No Take by [facility]-27 mouth. [place] (TYLENOL) 08:37: 00:00 of 167 MG/5ML 31 :00 Medicin LIQD e Levothyroxi Yes [id number] 75ug Take 75 [facility] ne Sodium 8-17 mcg by [place] 75 MCG CAPS 00:00: mouth of 00 daily. Medicin e Levothyroxi 0 Yes [id number] 75ug Take 75 [facility] Sodium 8-17 mcg by [place] 75 MCG CAPS 00:00: mouth of 00 daily. Medicin e Levothyroxi 2020-0 Yes [id number] 75ug Take 75 [facility] ne Sodium 8-17 mcg by [place] 75 MCG CAPS 00:00: mouth of 00 daily. Medicin e Levothyroxi 0 Yes [id number] 75ug Take 75 [facility] ne Sodium 8-17 mcg by [place] 75 MCG CAPS 00:00: mouth of 00 daily. Medicin e Levothyroxi 0 Yes [id number] 75ug Take 75 [facility] Sodium 8-17 mcg by [place] 75 MCG CAPS 00:00: mouth of 00 daily. Medicin e Levothyroxi 2020-0 Yes [id number] 75ug Take 75 [facility] Sodium 8-17 mcg by [place] 75 MCG CAPS 00:00: mouth of 00 daily. Medicin e Levothyroxi 2020-0 Yes [id number] 75ug Take 75 [facility] ne Sodium 8-17 mcg by [place] 75 MCG CAPS 00:00: mouth of 00 daily. Medicin e Levothyroxi 2020-0 Yes [id number] 75ug Take 75 [facility] ne Sodium 8-17 mcg by [place] 75 MCG CAPS 00:00: mouth of 00 daily. Medicin e Levothyroxi 2020-0 Yes [id number] 75ug Take 75 [facility] ne Sodium 8-17 mcg by [place] 75 MCG CAPS 00:00: mouth of 00 daily. Medicin e Levothyroxi 2020-0 Yes [id number] 75ug Take 75 [facility] ne Sodium 8-17 mcg by [place] 75 MCG CAPS 00:00: mouth of 00 daily. Medicin e Levothyroxi 2020-0 Yes [id number] 75ug Take 75 [facility] Sodium 8-17 mcg by [place] 75 MCG CAPS 00:00: mouth of 00 daily. Medicin e Levothyroxi 2020-0 Yes [id number] 75ug Take 75 [facility] ne Sodium 8-17 mcg by [place] 75 MCG CAPS 00:00: mouth of 00 daily. Medicin e Levothyroxi 2020-0 1- No [id number] 75ug Take 75 [facility] ne Sodium 8-17 12-10 mcg by [place] 75 MCG CAPS 00:00: 00:00 mouth of 00 :00 daily. Medicin e promethazin 2020-0 Yes 1{tbl} Take [address] [facility] [address] [facility] tablet by [facility] (PH[facility]) 00:00: mouth Medic al 12.5 MG 00 every 6 Center tablet (six) hours as needed. promethazin 2020-0 Yes 1{tbl} Take [address] [facility] 8[facility]13 tablet by [facility] (PHENERGAN) 00:00: mouth Medic al 12.5 MG 00 every 6 Center tablet (six) hours as needed. promethazin 2020-0 Yes 1{tbl} Take [address] [facility] 8[facility] tablet by [facility] (PHENERGAN) 00:00: mouth Medic al 12.5 MG 00 every 6 Center tablet (six) hours as needed. promethazin 2020-0 Yes 1{tbl} Take [address] [facility] 8[facility]13 tablet by [facility] (PHENERGAN) 00:00: mouth Medic al 12.5 MG 00 every 6 Center tablet (six) hours as needed. promethazin 2020-0 Yes 1{tbl} Take [address] [facility] 8[facility]13 tablet by [facility] (PHENERGAN) 00:00: mouth Medic al 12.5 MG 00 every 6 Center tablet (six) hours as needed. promethazin 2020-0 Yes 1{tbl} Take [address] [facility] 8-13 tablet by [facility] (PHENERGAN) 00:00: mouth Medic al 12.5 MG 00 every 6 Center tablet (six) hours as needed. promethazin 2020-0 Yes 1{tbl} Take [address] [facility] 8-13 tablet by [facility] (PHENERGAN) 00:00: mouth Medic al 12.5 MG 00 every 6 Center tablet (six) hours as needed. promethazin 2020-0 Yes 1{tbl} Take [address] [facility] 8-13 tablet by [facility] (PHENERGAN) 00:00: mouth Medic al 12.5 MG 00 every 6 Center tablet (six) hours as needed. promethazin 2020-0 Yes 1{tbl} Take [address] [facility] 8-13 tablet by [facility] (PHENERGAN) 00:00: mouth Medic al 12.5 MG 00 every 6 Center tablet (six) hours as needed. promethazin 2020-0 Yes 1{tbl} Take [address] [facility] 8-13 tablet by [facility] (PHENERGAN) 00:00: mouth Medic al 12.5 MG 00 every 6 Center tablet (six) hours as needed. promethazin 2020-0 Yes 1{tbl} Take [address] [facility] 8-13 tablet by [facility] (PHENERGAN) 00:00: mouth Medic al 12.5 MG 00 every 6 Center tablet (six) hours as needed. promethazin 2020-0 Yes 1{tbl} Take [address] [facility] 8-13 tablet by [facility] (PHENERGAN) 00:00: mouth Medic al 12.5 MG 00 every 6 Center tablet (six) hours as needed. promethazin 2020-0 Yes [id number] 12.5mg Take 1 [facility] e 8-13 Tablet by [place] (PHENERGAN) 00:00: mouth of 12.5 MG 00 every 6 Medicin tablet hours as e needed for Nausea. promethazin 2020-0 Yes [id number] 12.5mg Take 1 [facility] e 8-13 Tablet by [place] (PHENERGAN) 00:00: mouth of 12.5 MG 00 every 6 Medicin tablet hours as e needed for Nausea. promethazin 2020-0 Yes [id number] 12.5mg Take 1 [facility] 8-13 Tablet by [place] (PHENERGAN) 00:00: mouth of 12.5 MG 00 every 6 Medicin tablet hours as e needed for Nausea. promethazin 2020-0 Yes [id number] 12.5mg Take 1 [facility] 8-13 Tablet by [place] (PHENERGAN) 00:00: mouth of 12.5 MG 00 every 6 Medicin tablet hours as e needed for Nausea. promethazin 2020-0 Yes [id number] 12.5mg Take 1 [facility] e 8-13 Tablet by [place] (PHENERGAN) 00:00: mouth of 12.5 MG 00 every 6 Medicin tablet hours as e needed for Nausea. promethazin 2020-0 Yes [id number] 12.5mg Take 1 [facility] 8-13 Tablet by [place] (PHENERGAN) 00:00: mouth of 12.5 MG 00 every 6 Medicin tablet hours as e needed for Nausea. promethazin 2020-0 Yes [id number] 12.5mg Take 1 [facility] e 8-13 Tablet by [place] (PHENERGAN) 00:00: mouth of 12.5 MG 00 every 6 Medicin tablet hours as e needed for Nausea. promethazin 2020-0 Yes [id number] 12.5mg Take 1 [facility] 8-13 Tablet by [place] (PHENERGAN) 00:00: mouth of 12.5 MG 00 every 6 Medicin tablet hours as e needed for Nausea. promethazin 2020-0 Yes [id number] 12.5mg Take 1 [facility] e 8-13 Tablet by [place] (PHENERGAN) 00:00: mouth of 12.5 MG 00 every 6 Medicin tablet hours as e needed for Nausea. promethazin 2020-0 Yes [id number] 12.5mg Take 1 [facility] e 8-13 Tablet by [place] (PHENERGAN) 00:00: mouth of 12.5 MG 00 every 6 Medicin tablet hours as e needed for Nausea. promethazin 2020-0 Yes [id number] 12.5mg Take 1 [facility] e 8-13 Tablet by [place] (PHENERGAN) 00:00: mouth of 12.5 MG 00 every 6 Medicin tablet hours as e needed for Nausea. promethazin 2020-0 Yes [id number] 12.5mg Take 1 [facility] 8-13 Tablet by [place] (PHENERGAN) 00:00: mouth of 12.5 MG 00 every 6 Medicin tablet hours as e needed for Nausea. promethazin 2020-0 Yes [id number] 12.5mg Take 1 [facility] e 8-13 Tablet by [place] (PHENERGAN) 00:00: mouth of 12.5 MG 00 every 6 Medicin tablet hours as e needed for Nausea. promethazin 2020-0 Yes [id number] 12.5mg Take 1 [facility] e 8-13 Tablet by [place] (PHENERGAN) 00:00: mouth of 12.5 MG 00 every 6 Medicin tablet hours as e needed for Nausea. promethazin 2020-0 Yes [id number] 12.5mg Take 1 [facility] 8-13 Tablet by [place] (PHENERGAN) 00:00: mouth of 12.5 MG 00 every 6 Medicin tablet hours as e needed for Nausea. promethazin 2020-0 Yes [id number] 12.5mg Take 1 [facility] e 8-13 Tablet by [place] (PHENERGAN) 00:00: mouth of 12.5 MG 00 every 6 Medicin tablet hours as e needed for Nausea. promethazin 2020-0 Yes [id number] 12.5mg Take 1 [facility] 8-13 Tablet by [place] (PHENERGAN) 00:00: mouth of 12.5 MG 00 every 6 Medicin tablet hours as e needed for Nausea. promethazin 2020-0 Yes [id number] 12.5mg Take 1 [facility] e 8-13 Tablet by [place] (PHENERGAN) 00:00: mouth of 12.5 MG 00 every 6 Medicin tablet hours as e needed for Nausea. promethazin 2020-0 Yes [id number] 12.5mg Take 1 [facility] e 8-13 Tablet by [place] (PHENERGAN) 00:00: mouth of 12.5 MG 00 every 6 Medicin tablet hours as e needed for Nausea. promethazin 2020-0 Yes [id number] 12.5mg Take 1 [facility] 8-13 Tablet by [place] (PHENERGAN) 00:00: mouth of 12.5 MG 00 every 6 Medicin tablet hours as e needed for Nausea. promethazin 2020-0 Yes [id number] 12.5mg Take 1 [facility] 8-13 Tablet by [place] (PHENERGAN) 00:00: mouth of 12.5 MG 00 every 6 Medicin tablet hours as e needed for Nausea. promethazin 2020-0 Yes [id number] 12.5mg Take 1 [facility] e 8-13 Tablet by [place] (PHENERGAN) 00:00: mouth of 12.5 MG 00 every 6 Medicin tablet hours as e needed for Nausea. promethazin 2020-0 Yes [id number] 12.5mg Take 1 [facility] 8-13 Tablet by [place] (PHENERGAN) 00:00: mouth of 12.5 MG 00 every 6 Medicin tablet hours as e needed for Nausea. promethazin 2020-0 Yes [id number] 12.5mg Take 1 [facility] e 8-13 Tablet by [place] (PHENERGAN) 00:00: mouth of 12.5 MG 00 every 6 Medicin tablet hours as e needed for Nausea. promethazin 2020-0 Yes [id number] 12.5mg Take 1 [facility] e 8-13 Tablet by [place] (PHENERGAN) 00:00: mouth of 12.5 MG 00 every 6 Medicin tablet hours as e needed for Nausea. promethazin 2020-0 Yes [id number] 12.5mg Take 1 [facility] e 8-13 Tablet by [place] (PHENERGAN) 00:00: mouth of 12.5 MG 00 every 6 Medicin tablet hours as e needed for Nausea. promethazin 2020-0 Yes [id number] 12.5mg Take 1 [facility] e 8-13 Tablet by [place] (PHENERGAN) 00:00: mouth of 12.5 MG 00 every 6 Medicin tablet hours as e needed for Nausea. promethazin 2020-0 Yes [id number] 12.5mg Take 1 [facility] e 8-13 Tablet by [place] (PHENERGAN) 00:00: mouth of 12.5 MG 00 every 6 Medicin tablet hours as e needed for Nausea. promethazin 2020-0 Yes [id number] 12.5mg Take 1 [facility] e 8-13 Tablet by [place] (PHENERGAN) 00:00: mouth of 12.5 MG 00 every 6 Medicin tablet hours as e needed for Nausea. promethazin 2020-0 Yes [id number] 12.5mg Take 1 [facility] e 8-13 Tablet by [place] (PHENERGAN) 00:00: mouth of 12.5 MG 00 every 6 Medicin tablet hours as e needed for Nausea. promethazin 2020-0 Yes [id number] 12.5mg Take 1 [facility] e 8-13 Tablet by [place] (PHENERGAN) 00:00: mouth of 12.5 MG 00 every 6 Medicin tablet hours as e needed for Nausea. promethazin 2020-0 Yes [id number] 12.5mg Take 1 [facility] 8-13 Tablet by [place] (PHENERGAN) 00:00: mouth of 12.5 MG 00 every 6 Medicin tablet hours as e needed for Nausea. promethazin 2020-0 Yes [id number] 12.5mg Take 1 [facility] e 8-13 Tablet by [place] (PHENERGAN) 00:00: mouth of 12.5 MG 00 every 6 Medicin tablet hours as e needed for Nausea. promethazin 2020-0 Yes [id number] 12.5mg Take 1 [facility] e 8-13 Tablet by [place] (PHENERGAN) 00:00: mouth of 12.5 MG 00 every 6 Medicin tablet hours as e needed for Nausea. promethazin 2020-0 Yes [id number] 12.5mg Take 1 [facility] 8-13 Tablet by [place] (PHENERGAN) 00:00: mouth of 12.5 MG 00 every 6 Medicin tablet hours as e needed for Nausea. promethazin 2020-0 Yes [id number] 12.5mg Take 1 [facility] 8-13 Tablet by [place] (PHENERGAN) 00:00: mouth of 12.5 MG 00 every 6 Medicin tablet hours as e needed for Nausea. promethazin 2020-0 Yes [id number] 12.5mg Take 1 [facility] e 8-13 Tablet by [place] (PHENERGAN) 00:00: mouth of 12.5 MG 00 every 6 Medicin tablet hours as e needed for Nausea. promethazin 2020-0 Yes [id number] 12.5mg Take 1 [facility] e 8-13 Tablet by [place] (PHENERGAN) 00:00: mouth of 12.5 MG 00 every 6 Medicin tablet hours as e needed for Nausea. promethazin 2020-0 Yes [id number] 12.5mg Take 1 [facility] e 8-13 Tablet by [place] (PHENERGAN) 00:00: mouth of 12.5 MG 00 every 6 Medicin tablet hours as e needed for Nausea. promethazin 2020-0 Yes [id number] 12.5mg Take 1 [facility] e 8-13 Tablet by [place] (PHENERGAN) 00:00: mouth of 12.5 MG 00 every 6 Medicin tablet hours as e needed for Nausea. promethazin 2020-0 Yes [id number] 12.5mg Take 1 [facility] 8-13 Tablet by [place] (PHENERGAN) 00:00: mouth of 12.5 MG 00 every 6 Medicin tablet hours as e needed for Nausea. promethazin 2020-0 Yes [id number] 12.5mg Take 1 [facility] e 8-13 Tablet by [place] (PHENERGAN) 00:00: mouth of 12.5 MG 00 every 6 Medicin tablet hours as e needed for Nausea. promethazin 2020-0 Yes [id number] 12.5mg Take 1 [facility] e 8-13 Tablet by [place] (PHENERGAN) 00:00: mouth of 12.5 MG 00 every 6 Medicin tablet hours as e needed for Nausea. promethazin 2020-0 Yes [id number] 12.5mg Take 1 [facility] 8-13 Tablet by [place] (PHENERGAN) 00:00: mouth of 12.5 MG 00 every 6 Medicin tablet hours as e needed for Nausea. promethazin 2020-0 Yes [id number] 12.5mg Take 1 [facility] e 8-13 Tablet by [place] (PHENERGAN) 00:00: mouth of 12.5 MG 00 every 6 Medicin tablet hours as e needed for Nausea. promethazin 2020-0 Yes [id number] 12.5mg Take 1 [facility] e 8-13 Tablet by [place] (PHENERGAN) 00:00: mouth of 12.5 MG 00 every 6 Medicin tablet hours as e needed for Nausea. promethazin 2020-0 Yes [id number] 12.5mg Take 1 [facility] e 8-13 Tablet by [place] (PHENERGAN) 00:00: mouth of 12.5 MG 00 every 6 Medicin tablet hours as e needed for Nausea. promethazin 2020-0 Yes [id number] 12.5mg Take 1 [facility] e 8-13 Tablet by [place] (PHENERGAN) 00:00: mouth of 12.5 MG 00 every 6 Medicin tablet hours as e needed for Nausea. promethazin 2020-0 Yes [id number] 12.5mg Take 1 [facility] e 8-13 Tablet by [place] (PHENERGAN) 00:00: mouth of 12.5 MG 00 every 6 Medicin tablet hours as e needed for Nausea. promethazin 2020-0 Yes [id number] 12.5mg Take 1 [facility] 8-13 Tablet by [place] (PHENERGAN) 00:00: mouth of 12.5 MG 00 every 6 Medicin tablet hours as e needed for Nausea. promethazin 2020-0 Yes [id number] 12.5mg Take 1 [facility] e 8-13 Tablet by [place] (PHENERGAN) 00:00: mouth of 12.5 MG 00 every 6 Medicin tablet hours as e needed for Nausea. promethazin 2020-0 Yes [id number] 12.5mg Take 1 [facility] e 8-13 Tablet by [place] (PHENERGAN) 00:00: mouth of 12.5 MG 00 every 6 Medicin tablet hours as e needed for Nausea. promethazin 2020-0 Yes [id number] 12.5mg Take 1 [facility] e 8-13 Tablet by [place] (PHENERGAN) 00:00: mouth of 12.5 MG 00 every 6 Medicin tablet hours as e needed for Nausea. promethazin 2020-0 Yes [id number] 12.5mg Take 1 [facility] 8-13 Tablet by [place] (PHENERGAN) 00:00: mouth of 12.5 MG 00 every 6 Medicin tablet hours as e needed for Nausea. promethazin 2020-0 Yes [id number] 12.5mg Take 1 [facility] e 8-13 Tablet by [place] (PHENERGAN) 00:00: mouth of 12.5 MG 00 every 6 Medicin tablet hours as e needed for Nausea. promethazin 2020-0 Yes [id number] 12.5mg Take 1 [facility] 8-13 Tablet by [place] (PHENERGAN) 00:00: mouth of 12.5 MG 00 every 6 Medicin tablet hours as e needed for Nausea. promethazin 2020-0 Yes 1{tbl} Take [address] [facility] e 8-13 tablet by [facility] (PHENERGAN) 00:00: mouth Medic al 12.5 MG 00 every 6 Center tablet (six) hours as needed. candesartan 2020-0 Yes [id number] TAKE 1 [facility] (ATACAND) 8-02 TABLET BY [facility] 32 MG 00:00: MOUTH of tablet 00 EVERY DAY Medicin e candesartan 2020-0 Yes [id number] TAKE 1 [facility] (ATACAND) 8-02 TABLET BY [facility] 32 MG 00:00: MOUTH of tablet 00 EVERY DAY Medicin e candesartan 2020-0 Yes [id number] TAKE 1 [facility] (ATACAND) 8-02 TABLET BY [facility] 32 MG 00:00: MOUTH of tablet 00 EVERY DAY Medicin e candesartan 2020-0 Yes [id number] TAKE 1 [facility] (ATACAND) 8-02 TABLET BY [facility] 32 MG 00:00: MOUTH of tablet 00 EVERY DAY Medicin e candesartan 2020-0 Yes [id number] TAKE 1 [facility] (ATACAND) 8-02 TABLET BY [facility] 32 MG 00:00: MOUTH of tablet 00 EVERY DAY Medicin e candesartan 2020-0 Yes [id number] TAKE 1 [facility] (ATACAND) 8-02 TABLET BY [facility] 32 MG 00:00: MOUTH of tablet 00 EVERY DAY Medicin e candesartan 2020-0 Yes [id number] TAKE 1 [facility] (ATACAND) 8-02 TABLET BY [facility] 32 MG 00:00: MOUTH of tablet 00 EVERY DAY Medicin e candesartan 2020-0 Yes [id number] TAKE 1 [facility] (ATACAND) 8-02 TABLET BY [facility] 32 MG 00:00: MOUTH of tablet 00 EVERY DAY Medicin e candesartan 2020-0 Yes [id number] TAKE 1 [facility] (ATACAND) 8-02 TABLET BY [facility] 32 MG 00:00: MOUTH of tablet 00 EVERY DAY Medicin e candesartan Yes [id number] TAKE 1 [facility] (ATACAND) 8-02 TABLET BY [facility] 32 MG 00:00: MOUTH of tablet 00 EVERY DAY Medicin e candesartan Yes [id number] TAKE 1 [facility] (ATACAND) 8-02 TABLET BY [facility] 32 MG 00:00: MOUTH of tablet 00 EVERY DAY Medicin e candesartan Yes [id number] TAKE 1 [facility] (ATACAND) 8-02 TABLET BY [facility] 32 MG 00:00: MOUTH of tablet 00 EVERY DAY Medicin e candesartan Yes [id number] TAKE 1 [facility] (ATACAND) 8-02 TABLET BY [facility] 32 MG 00:00: MOUTH of tablet 00 EVERY DAY Medicin e candesartan 2020- No [id number] TAKE 1 [facility] (ATACAND) 8-02 12-10 TABLET BY [facility] 32 MG 00:00: 00:00 MOUTH of tablet 00 :00 EVERY DAY Medicin e DPH-Lido-Al 2020- No [id number] 10mL Take 10 mL [facility] Hydr-MgHydr 7-30 08-30 by mouth 4 [facility] 00:00: 04:59 times of (FIRST-MOUT 00 :00 daily as Medi michael HWASH BLM) needed for e SUSP Other (mouth pain) for up to 30 days. DPH-Lido-Al 2020- No [id number] 10mL Take 10 mL [facility] Hydr-MgHydr 7-30 08-30 by mouth 4 [facility] 00:00: 04:59 times of (FIRST-MOUT 00 :00 daily as Medi michael HWASH BLM) needed for e SUSP Other (mouth pain) for up to 30 days. tramadol Yes [id number] 1{tbl} Take 1 [facility] (ULTRAM) 50 7-20 Tablet by [facility] MG tablet 00:00: mouth of 00 every 8 Medicin hours as e needed for Pain. tramadol Yes [id number] 1{tbl} Take 1 [facility] (ULTRAM) 50 7-20 Tablet by [facility] MG tablet 00:00: mouth of 00 every 8 Medicin hours as e needed for Pain. tramadol 2020-0 Yes [id number] 1{tbl} Take 1 [facility] (ULTRAM) 50 7-20 Tablet by [facility] MG tablet 00:00: mouth of 00 every 8 Medicin hours as e needed for Pain. tramadol 2020-0 Yes [id number] 1{tbl} Take 1 [facility] (ULTRAM) 50 7-20 Tablet by [facility] MG tablet 00:00: mouth of 00 every 8 Medicin hours as e needed for Pain. tramadol 2020-0 Yes [id number] 1{tbl} Take 1 [facility] (ULTRAM) 50 7-20 Tablet by [facility] MG tablet 00:00: mouth of 00 every 8 Medicin hours as e needed for Pain. tramadol 0 Yes [id number] 1{tbl} Take 1 [facility] (ULTRAM) 50 7-20 Tablet by [facility] MG tablet 00:00: mouth of 00 every 8 Medicin hours as e needed for Pain. tramadol 1- No [id number] 1{tbl} Take 1 [facility] (ULTRAM) 50 7-20 10-08 Tablet by [facility] MG tablet 00:00: 00:00 mouth of 00 :00 every 8 Medicin hours as e needed for Pain. escitalopra Yes 20mg Take 20 mg [facility] (LEXAPRO) 7-16 by mouth [facility] 20 MG 08:55: daily. of tablet 24 Medicin e Cobalamine Yes Take by [facility] Combination 7-16 mouth. [facility] (FOLIC + 08:55: of B12) 24 Medicin 800-1000 e MCG TABS Potassium Yes Take by [facility] Aminobenzoa 7-16 mouth. [facility] [facility] (POTABA) 08:55: of 500 MG TABS 24 Medicin e Cyanocobala Yes Take by [facility] min (B-12 7-16 mouth. [facility]) 08:55: of 24 Medicin e alprazolam Yes .5mg Take 0.5 [facility] (XANAX) 0.5 7-16 mg by [facility] MG tablet 08:55: mouth of 24 nightly as Medicin needed for e Sleep. estrogens, Yes 1.25mg Take 1.25 [facility] conjugated, 7-16 mg by [facility] (PREMARIN) 08:55: mouth of 1.25 MG 24 daily. Medicin tablet e montelukast Yes 10mg Take 10 mg [facility] (SINGULAIR) 7-16 by mouth [facility] 10 MG 08:55: daily. of tablet 24 Medicin e Acetaminoph Yes Take by [facility] en 7-16 mouth. [place] (TYLENOL) 08:55: of 167 MG/5ML 24 Medicin LIQD e omeprazole Yes 40mg Take 40 mg [facility] (PRILOSEC) 7-16 by mouth [facility] 40 MG 08:55: daily. of capsule 24 Medicin e MAGNESIUM Yes Take by [facility] 7-16 mouth two [facility] 08:55: times of 24 daily. Medicin e clonidine Yes .1mg Take 0.1 [facility] (CATAPRES) 7-16 mg by [place] 0.1 MG 08:55: mouth as of tablet 24 needed. Medicin e tramadol Yes [id number] 1{tbl} Take 1 [facility] (ULTRAM) 50 7-16 Tablet by [facility] MG tablet 00:00: mouth of 00 every 8 Medicin hours as e needed for Pain. linaCLOtide Yes [id number] 72ug Take 72 [facility] 72 MCG CAPS 7-02 mcg by [facility] 00:[facility]: mouth of 00 daily. Medicin e linaCLOtide Yes [id number] 72ug Take 72 [facility] 72 MCG CAPS 7-02 mcg by [facility] 00:[facility]: mouth of 00 daily. Medicin e linaCLOtide Yes [id number] 72ug Take 72 [facility] 72 MCG CAPS 7-02 mcg by [facility] 00:[facility]: mouth of 00 daily. Medicin e linaCLOtide Yes [id number] 72ug Take 72 [facility] 72 MCG CAPS 7-02 mcg by [facility] 00:[facility]: mouth of 00 daily. Medicin e linaCLOtide Yes [id number] 72ug Take 72 [facility] 72 MCG CAPS 7-02 mcg by [facility] 00:[facility]: mouth of 00 daily. Medicin e linaCLOtide Yes [id number] 72ug Take 72 [facility] 72 MCG CAPS 7-02 mcg by [facility] 00:[facility]: mouth of 00 daily. Medicin e linaCLOtide 0 Yes [id number] 72ug Take 72 [facility] 72 MCG CAPS 7-02 mcg by [facility] 00:[facility]: mouth of 00 daily. Medicin e linaCLOtide 0 Yes [id number] 72ug Take 72 [facility] 72 MCG CAPS 7-02 mcg by [facility] 00:[facility]: mouth of 00 daily. Medicin e linaCLOtide 0 Yes [id number] 72ug Take 72 [facility] 72 MCG CAPS 7-02 mcg by [facility] 00:00: mouth of 00 daily. Medicin e linaCLOtide 0 Yes [id number] 72ug Take 72 [facility] 72 MCG CAPS 7-02 mcg by [facility] 00:00: mouth of 00 daily. Medicin e linaCLOtide 0 Yes [id number] 72ug Take 72 [facility] 72 MCG CAPS 7-02 mcg by [facility] 00:00: mouth of 00 daily. Medicin e linaCLOtide 0 Yes [id number] 72ug Take 72 [facility] 72 MCG CAPS 7-02 mcg by [facility] 00:00: mouth of 00 daily. Medicin e linaCLOtide 0 Yes [id number] 72ug Take 72 [facility] 72 MCG CAPS 7-02 mcg by [facility] 00:00: mouth of 00 daily. Medicin e linaCLOtide 0 Yes [id number] 72ug Take 72 [facility] 72 MCG CAPS 7-02 mcg by [facility] 00:00: mouth of 00 daily. Medicin e linaCLOtide 0 Yes [id number] 72ug Take 72 [facility] 72 MCG CAPS 7-02 mcg by [facility] 00:00: mouth of 00 daily. Medicin e linaCLOtide 2020-0 Yes [id number] 72ug Take 72 [facility] 72 MCG CAPS 7-02 mcg by [facility] 00:00: mouth of 00 daily. Medicin e linaCLOtide 2020-0 Yes [id number] 72ug Take 72 [facility] 72 MCG CAPS 7-02 mcg by [facility] 00:00: mouth of 00 daily. Medicin e linaCLOtide 2021-0 Yes [id number] 72ug Take 72 [facility] 72 MCG CAPS 7-02 mcg by [facility] 00:00: mouth of 00 daily. Medicin e linaCLOtide 0 Yes [id number] 72ug Take 72 [facility] 72 MCG CAPS 7-02 mcg by [facility] 00:00: mouth of 00 daily. Medicin e linaCLOtide 2020-0 Yes [id number] 72ug Take 72 [facility] 72 MCG CAPS 7-02 mcg by [facility] 00:00: mouth of 00 daily. Medicin e linaCLOtide 2020-0 Yes [id number] 72ug Take 72 [facility] 72 MCG CAPS 7-02 mcg by [facility] 00:00: mouth of 00 daily. Medicin e linaCLOtide 0 Yes [id number] 72ug Take 72 [facility] 72 MCG CAPS 7-02 mcg by [facility] 00:00: mouth of 00 daily. Medicin e linaCLOtide 0 Yes [id number] 72ug Take 72 [facility] 72 MCG CAPS 7-02 mcg by [facility] 00:00: mouth of 00 daily. Medicin e linaCLOtide 0 Yes [id number] 72ug Take 72 [facility] 72 MCG CAPS 7-02 mcg by [facility] 00:00: mouth of 00 daily. Medicin e linaCLOtide 0 Yes [id number] 72ug Take 72 [facility] 72 MCG CAPS 7-02 mcg by [facility] 00:00: mouth of 00 daily. Medicin e linaCLOtide 0 Yes [id number] 72ug Take 72 [facility] 72 MCG CAPS 7-02 mcg by [facility] 00:00: mouth of 00 daily. Medicin e linaCLOtide 2020-0 Yes [id number] 72ug Take 72 [facility] 72 MCG CAPS 7-02 mcg by [facility] 00:00: mouth of 00 daily. Medicin e linaCLOtide 2020-0 Yes [id number] 72ug Take 72 [facility] 72 MCG CAPS 7-02 mcg by [facility] 00:00: mouth of 00 daily. Medicin e linaCLOtide 2020-0 Yes [id number] 72ug Take 72 [facility] 72 MCG CAPS 7-02 mcg by [facility] 00:00: mouth of 00 daily. Medicin e linaCLOtide 2020-0 Yes [id number] 72ug Take 72 [facility] 72 MCG CAPS 7-02 mcg by [facility] 00:00: mouth of 00 daily. Medicin e linaCLOtide 2020-0 Yes [id number] 72ug Take 72 [facility] 72 MCG CAPS 7-02 mcg by [facility] 00:00: mouth of 00 daily. Medicin e linaCLOtide 2020-0 Yes [id number] 72ug Take 72 [facility] 72 MCG CAPS 7-02 mcg by [facility] 00:00: mouth of 00 daily. Medicin e linaCLOtide 2020-0 Yes [id number] 72ug Take 72 [facility] 72 MCG CAPS 7-02 mcg by [facility] 00:00: mouth of 00 daily. Medicin e linaCLOtide 2020-0 Yes [id number] 72ug Take 72 [facility] 72 MCG CAPS 7-02 mcg by [facility] 00:00: mouth of 00 daily. Medicin e linaCLOtide 2020-0 Yes [id number] 72ug Take 72 [facility] 72 MCG CAPS 7-02 mcg by [facility] 00:00: mouth of 00 daily. Medicin e linaCLOtide 2020-0 Yes [id number] 72ug Take 72 [facility] 72 MCG CAPS 7-02 mcg by [facility] 00:00: mouth of 00 daily. Medicin e linaCLOtide 2020-0 Yes [id number] 72ug Take 72 [facility] 72 MCG CAPS 7-02 mcg by [facility] 00:00: mouth of 00 daily. Medicin e linaCLOtide 2020-0 Yes [id number] 72ug Take 72 [facility] 72 MCG CAPS 7-02 mcg by [facility] 00:00: mouth of 00 daily. Medicin e linaCLOtide 2020-0 Yes [id number] 72ug Take 72 [facility] 72 MCG CAPS 7-02 mcg by [facility] 00:00: mouth of 00 daily. Medicin e linaCLOtide 2020-0 Yes [id number] 72ug Take 72 [facility] 72 MCG CAPS 7-02 mcg by [facility] 00:00: mouth of 00 daily. Medicin e linaCLOtide 2020-0 Yes [id number] 72ug Take 72 [facility] 72 MCG CAPS 7-02 mcg by [facility] 00:00: mouth of 00 daily. Medicin e linaCLOtide 2020-0 Yes [id number] 72ug Take 72 [facility] 72 MCG CAPS 7-02 mcg by [facility] 00:00: mouth of 00 daily. Medicin e linaCLOtide 2020-0 Yes [id number] 72ug Take 72 [facility] 72 MCG CAPS 7-02 mcg by [facility] 00:00: mouth of 00 daily. Medicin e linaCLOtide 2020-0 Yes [id number] 72ug Take 72 [facility] 72 MCG CAPS 7-02 mcg by [facility] 00:00: mouth of 00 daily. Medicin e linaCLOtide 2020-0 Yes [id number] 72ug Take 72 [facility] 72 MCG CAPS 7-02 mcg by [facility] 00:00: mouth of 00 daily. Medicin e linaCLOtide 2020-0 Yes [id number] 72ug Take 72 [facility] 72 MCG CAPS 7-02 mcg by [facility] 00:00: mouth of 00 daily. Medicin e linaCLOtide 2020-0 Yes [id number] 72ug Take 72 [facility] 72 MCG CAPS 7-02 mcg by [facility] 00:00: mouth of 00 daily. Medicin e linaCLOtide 2020-0 Yes [id number] 72ug Take 72 [facility] 72 MCG CAPS 7-02 mcg by [facility] 00:00: mouth of 00 daily. Medicin e linaCLOtide 0 Yes [id number] 72ug Take 72 [facility] 72 MCG CAPS 7-02 mcg by [facility] 00:00: mouth of 00 daily. Medicin e linaCLOtide 2020-0 Yes [id number] 72ug Take 72 [facility] 72 MCG CAPS 7-02 mcg by [facility] 00:00: mouth of 00 daily. Medicin e linaCLOtide 2020-0 Yes [id number] 72ug Take 72 [facility] 72 MCG CAPS 7-02 mcg by [facility] 00:00: mouth of 00 daily. Medicin e linaCLOtide 2020-0 Yes [id number] 72ug Take 72 [facility] 72 MCG CAPS 7-02 mcg by [facility] 00:00: mouth of 00 daily. Medicin e linaCLOtide 2020-0 Yes [id number] 72ug Take 72 [facility] 72 MCG CAPS 7-02 mcg by [facility] 00:00: mouth of 00 daily. Medicin e linaCLOtide 2020-0 Yes [id number] 72ug Take 72 [facility] 72 MCG CAPS 7-02 mcg by [facility] 00:00: mouth of 00 daily. Medicin e linaCLOtide Yes [id number] 72ug Take 72 [facility] 72 MCG CAPS 7-02 mcg by [facility] 00:00: mouth of 00 daily. Medicin e linaCLOtide 0 Yes [id number] 72ug Take 72 [facility] 72 MCG CAPS 7-02 mcg by [facility] 00:00: mouth of 00 daily. Medicin e linaCLOtide Yes [id number] 72ug Take 72 [facility] 72 MCG CAPS 7-02 mcg by [facility] 00:00: mouth of 00 daily. Medicin e escitalopra Yes 20mg Take 20 mg [facility] m (LEXAPRO) 6-25 by mouth [facility] 20 MG 08:33: daily. of tablet 39 Medicin e Cobalamine Yes Take by [facility] Combination 6-25 mouth. [facility] (FOLIC + 08:33: of B12) 39 Medicin 800-1000 e MCG TABS Potassium Yes Take by [facility] Aminobenzoa 6-25 mouth. [facility] (POTABA) 08:33: of 500 MG TABS 39 Medicin e Cyanocobala Yes Take by [facility] (B-12 6-25 mouth. [facility]) 08:33: of 39 Medicin e alprazolam Yes .5mg Take 0.5 [facility] (XANAX) 0.5 6-25 mg by [place] MG tablet 08:33: mouth of 39 nightly as Medicin needed for e Sleep. estrogens, Yes 1.25mg Take 1.25 [facility] conjugated, 6-25 mg by [place] (PREMARIN) 08:33: mouth of 1.25 MG 39 daily. Medicin tablet e montelukast Yes 10mg Take 10 mg [facility] (SINGULAIR) 6-25 by mouth [facility] 10 MG 08:33: daily. of tablet 39 Medicin e Acetaminoph Yes Take by [facility] 6-25 mouth. [place] (TYLENOL) 08:33: of 167 MG/5ML 39 Medicin LIQD e omeprazole Yes 40mg Take 40 mg [facility] (PRILOSEC) 6-25 by mouth [facility] 40 MG 08:33: daily. of capsule 39 Medicin e MAGNESIUM Yes Take by [facility] 6-25 mouth two [facility] 08:33: times of 39 daily. Medicin e clonidine Yes .1mg Take 0.1 [facility] (CATAPRES) 6-25 mg by [facility] 0.1 MG 08:33: mouth as of tablet 39 needed. Medicin e escitalopra Yes 20mg Take 20 mg [facility] m (LEXAPRO) 6-04 by mouth [facility] 20 MG 08:45: daily. of tablet 17 Medicin e Cobalamine Yes Take by [facility] Combination 6-04 mouth. [facility] (FOLIC + 08:45: of B12) 17 Medicin 800-1000 e MCG TABS Potassium Yes Take by [facility] Aminobenzoa 6-04 mouth. [facility] (POTABA) 08:45: of 500 MG TABS 17 Medicin e Cyanocobala Yes Take by [facility] (B-12 6-04 mouth. [place]) 08:45: of 17 Medicin e alprazolam Yes .5mg Take 0.5 [facility] (XANAX) 0.5 6-04 mg by [place] MG tablet 08:45: mouth of 17 nightly as Medicin needed for e Sleep. estrogens, Yes 1.25mg Take 1.25 [facility] conjugated, 6-04 mg by [place] (PREMARIN) 08:45: mouth of 1.25 MG 17 daily. Medicin tablet e montelukast Yes 10mg Take 10 mg [facility] (SINGULAIR) 6-04 by mouth [facility] 10 MG 08:45: daily. of tablet 17 Medicin e Acetaminoph Yes Take by [facility] 6-04 mouth. [place] (TYLENOL) 08:45: of 167 MG/5ML 17 Medicin LIQD e omeprazole Yes 40mg Take 40 mg [facility] (PRILOSEC) 6-04 by mouth [facility] 40 MG 08:45: daily. of capsule 17 Medicin e MAGNESIUM Yes Take by [facility] [place] 6-04 mouth two [facility] 08:45: times of 17 daily. Medicin e clonidine Yes .1mg Take 0.1 [facility] (CATAPRES) 6-04 mg by [place] 0.1 MG 08:45: mouth as of tablet 17 needed. Medicin e linaCLOtide Yes [id number] 72ug Take 72 [facility] 72 MCG CAPS 6-04 mcg by [facility] 00:00: mouth of 00 daily. Medicin e linaCLOtide Yes [id number] 72ug Take 72 [facility] 72 MCG CAPS 6-04 mcg by [facility] 00:00: mouth of 00 daily. Medicin e Levothyroxi Yes [id number] 75ug Take 75 [facility] ne Sodium 5-11 mcg by [place] 75 MCG CAPS 00:00: mouth of 00 daily. Medicin e Levothyroxi Yes [id number] 75ug Take 75 [facility] Sodium 5-11 mcg by [place] 75 MCG CAPS 00:00: mouth of 00 daily. Medicin e Levothyroxi Yes [id number] 75ug Take 75 [facility] ne Sodium 5-11 mcg by [place] 75 MCG CAPS 00:00: mouth of 00 daily. Medicin e escitalopra Yes 20mg Take 20 mg [facility] (LEXAPRO) 5-07 by mouth [facility] 20 MG 13:22: daily. of tablet 59 Medicin e Cobalamine Yes Take by [facility] Combination 5-07 mouth. [facility] (FOLIC + 13:22: of B12) 59 Medicin 800-1000 e MCG TABS Potassium Yes Take by [facility] Aminobenzoa 5-07 mouth. [facility] (POTABA) 13:22: of 500 MG TABS 59 Medicin e Cyanocobala Yes Take by [facility] (B-12 5-07 mouth. [facility]) 13:22: of 59 Medicin e alprazolam Yes .5mg Take 0.5 [facility] (XANAX) 0.5 5-07 mg by [place] MG tablet 13:22: mouth of 59 nightly as Medicin needed for e Sleep. estrogens, Yes 1.25mg Take 1.25 [facility] conjugated, 5-07 mg by [place] (PREMARIN) 13:22: mouth of 1.25 MG 59 daily. Medicin tablet e montelukast Yes 10mg Take 10 mg [facility] (SINGULAIR) 5-07 by mouth [facility] 10 MG 13:22: daily. of tablet 59 Medicin e Acetaminoph Yes Take by [facility] 5-07 mouth. [place] (TYLENOL) 13:22: of 167 MG/5ML 59 Medicin LIQD e omeprazole Yes 40mg Take 40 mg [facility] (PRILOSEC) 5-07 by mouth [facility] 40 MG 13:22: daily. of capsule 59 Medicin e MAGNESIUM Yes Take by [facility] [place] 5-07 mouth two [facility] 13:22: times of 59 daily. Medicin e clonidine Yes .1mg Take 0.1 [facility] (CATAPRES) 5-07 mg by [place] 0.1 MG 13:22: mouth as of tablet 59 needed. Medicin e escitalopra Yes 20mg Take 20 mg [facility] (LEXAPRO) 4-16 by mouth [facility] 20 MG 16:19: daily. of tablet 43 Medicin e Cobalamine Yes Take by [facility] Combination 4-16 mouth. [facility] (FOLIC + 16:19: of B12) 43 Medicin 800-1000 e MCG TABS Potassium Yes Take by [facility] Aminobenzoa 4-16 mouth. [facility] (POTABA) 16:19: of 500 MG TABS 43 Medicin e Cyanocobala Yes Take by [facility] (B-12 4-16 mouth. [place]) 16:19: of 43 Medicin e alprazolam Yes .5mg Take 0.5 [facility] (XANAX) 0.5 4-16 mg by [place] MG tablet 16:19: mouth of 43 nightly as Medicin needed for e Sleep. estrogens, Yes 1.25mg Take 1.25 [facility] conjugated, 4-16 mg by [place] (PREMARIN) 16:19: mouth of 1.25 MG 43 daily. Medicin tablet e montelukast Yes 10mg Take 10 mg [facility] (SINGULAIR) 4-16 by mouth [facility] 10 MG 16:19: daily. of tablet 43 Medicin e Acetaminoph Yes Take by [facility] 4-16 mouth. [place] (TYLENOL) 16:19: of 167 MG/5ML 43 Medicin LIQD e omeprazole 0 Yes 40mg Take 40 mg [facility] (PRILOSEC) 4-16 by mouth [facility] 40 MG 16:19: daily. of capsule 43 Medicin e MAGNESIUM Yes Take by [facility] [place] 4-16 mouth two [facility] 16:19: times of 43 daily. Medicin e clonidine 0 Yes .1mg Take 0.1 [facility] (CATAPRES) 4-16 mg by [place] 0.1 MG 16:19: mouth as of tablet 43 needed. Medicin e escitalopra Yes 20mg Take 20 mg [facility] m (LEXAPRO) 4-16 by mouth [facility] 20 MG 14:04: daily. of tablet 07 Medicin e Cobalamine Yes Take by [facility] Combination 4-16 mouth. [facility] (FOLIC + 14:04: of B12) 07 Medicin 800-1000 e MCG TABS Potassium Yes Take by [facility] Aminobenzoa 4-16 mouth. [facility] te (POTABA) 14:04: of 500 MG TABS 07 Medicin e Cyanocobala Yes Take by [facility] (B-12 4-16 mouth. [place]) 14:04: of 07 Medicin e alprazolam Yes .5mg Take 0.5 [facility] (XANAX) 0.5 4-16 mg by [place] MG tablet 14:04: mouth of 07 nightly as Medicin needed for e Sleep. estrogens, Yes 1.25mg Take 1.25 [facility] conjugated, 4-16 mg by [place] (PREMARIN) 14:04: mouth of 1.25 MG 07 daily. Medicin tablet e montelukast Yes 10mg Take 10 mg [facility] (SINGULAIR) 4-16 by mouth [facility] 10 MG 14:04: daily. of tablet 07 Medicin e Acetaminoph Yes Take by [facility] 4-16 mouth. [place] (TYLENOL) 14:04: of 167 MG/5ML 07 Medicin LIQD e omeprazole 2020-0 Yes 40mg Take 40 mg [facility] (PRILOSEC) 4-16 by mouth [facility] 40 MG 14:04: daily. of capsule 07 Medicin e MAGNESIUM 2020-0 Yes Take by [facility] [place] 4-16 mouth two [facility] 14:04: times of 07 daily. Medicin e clonidine 1-0 Yes .1mg Take 0.1 [facility] (CATAPRES) 4-16 mg by [place] 0.1 MG 14:04: mouth as of tablet 07 needed. Medicin e verapamil 2021-0 Yes 240mg Take [...] 20mg Take 20 mg [facility] (LEXAPRO) 3-26 by mouth [facility] 20 MG 13:33: daily. of tablet 54 Medicin e Cobalamine Yes Take by [facility] Combination - mouth. [facility] (FOLIC + 13:33: of B12) 54 Medicin 800-1000 e MCG TABS Potassium Yes Take by [facility] Aminobenzoa - mouth. [facility] (POTABA) 13:33: of 500 MG TABS 54 Medicin e Cyanocobala Yes Take by [facility] (B-12 - mouth. [facility] [place]) 13:33: of 54 Medicin e alprazolam Yes .5mg Take 0.5 [facility] (XANAX) 0.5 3-26 mg by [place] MG tablet 13:33: mouth of 54 nightly as Medicin needed for e Sleep. estrogens, Yes 1.25mg Take 1.25 [facility] conjugated, 3-26 mg by [place] (PREMARIN) 13:33: mouth of 1.25 MG 54 daily. Medicin tablet e montelukast Yes 10mg Take 10 mg [facility] (SINGULAIR) 06-26 by mouth [facility] 10 MG 13:33: daily. of tablet 54 Medicin e Acetaminoph Yes Take by [facility] - mouth. [place] (TYLENOL) 13:33: of 167 MG/5ML 54 Medicin LIQD e omeprazole Yes 40mg Take 40 mg [facility] (PRILOSEC) 06-26 by mouth [facility] 40 MG 13:33: daily. of capsule 54 Medicin e MAGNESIUM Yes Take by [facility] [place] -26 mouth two [facility] 13:33: times of 54 daily. Medicin e clonidine Yes .1mg Take 0.1 [facility] (CATAPRES) 3-26 mg by [place] 0.1 MG 13:33: mouth as of tablet 54 needed. Medicin e metoclopram Yes 10mg Take 1 [facility] michel 3-26 Tablet by [place] (REGLAN) 10 00:00: mouth 4 of MG tablet 00 times Medicin daily as e needed. metoclopram 2021-0 Yes 10mg Take 1 [facility]hel 3-26 Tablet by [place] ([facility]) 10 00:00: mouth 4 of MG tablet 00 times Medicin daily as e needed. metoclopram 2021-0 Yes 10mg Take 1 [facility]hel 3-26 Tablet by [place] [facility] 10 00:00: mouth 4 of MG tablet 00 times Medicin daily as e needed. metoclopram 2021-0 Yes 10mg Take 1 [facility] 3-26 Tablet by [place] [facility] 10 00:00: mouth 4 of MG tablet 00 times Medicin daily as e needed. metoclopram 2021-0 Yes 10mg Take 1 [facility] 3-26 Tablet by [place] ([facility] 10 00:00: mouth 4 of MG tablet 00 times Medicin daily as e needed. metoclopram 1-0 Yes 10mg Take 1 [facility] 3-26 Tablet by [place] ([facility]) 10 00:00: mouth 4 of MG tablet 00 times Medicin daily as e needed. metoclopram 1-0 Yes 10mg Take 1 [facility] 3-26 Tablet by [place] ([facility] 10 00:00: mouth 4 of MG tablet 00 times Medicin daily as e needed. metoclopram 1-0 2021- No 10mg Take 1 [facility] michel 3-26 08-27 Tablet by [place] ([facility]) 10 00:00: 00:00 mouth 4 of MG tablet 00 :00 times Medicin daily as e needed. carvedilol 2020-0 Yes TAKE 2 [facility] (COREG) 25 3-15 TABLETS BY [facility] MG tablet 00:00: MOUTH of 00 TWICE Medicin DAILY e carvedilol 2020-0 Yes TAKE 2 [facility] (COREG) 25 3-15 TABLETS BY [facility] MG tablet 00:00: MOUTH of 00 TWICE Medicin DAILY e carvedilol 2020-0 Yes TAKE 2 [facility] (COREG) 25 3-15 TABLETS BY [facility] MG tablet 00:00: MOUTH of 00 TWICE Medicin DAILY e carvedilol 2020-0 Yes TAKE 2 [facility] (COREG) 25 3-15 TABLETS BY [facility] MG tablet 00:00: MOUTH of 00 TWICE Medicin DAILY e carvedilol 2020-0 Yes TAKE 2 [facility] (COREG) 25 [...] 20mg Take 20 mg [facility] (LEXAPRO) 3-05 by mouth [facility] 20 MG 14:41: daily. of tablet 33 Medicin e Cobalamine Yes Take by [facility] Combination 3-05 mouth. [facility] (FOLIC + 14:41: of B12) 33 Medicin 800-1000 e MCG TABS Potassium Yes Take by [facility] Aminobenzoa 3-05 mouth. [facility] (POTABA) 14:41: of 500 MG TABS 33 Medicin e Cyanocobala Yes Take by [facility] (B-12 3-05 mouth. [facility] [place]) 14:41: of 33 Medicin e alprazolam Yes .5mg Take 0.5 [facility] (XANAX) 0.5 3-05 mg by [place] MG tablet 14:41: mouth of 33 nightly as Medicin needed for e Sleep. estrogens, Yes 1.25mg Take 1.25 [facility] conjugated, 3-05 mg by [facility] (PREMARIN) 14:41: mouth of 1.25 MG 33 daily. Medicin tablet e montelukast Yes 10mg Take 10 mg [facility] (SINGULAIR) -05 by mouth [facility] 10 MG 14:41: daily. of tablet 33 Medicin e Acetaminoph Yes Take by [facility] - mouth. [facility] (TYLENOL) 14:41: of 167 MG/5ML 33 Medicin LIQD e omeprazole Yes 40mg Take 40 mg [facility] (PRILOSEC) 06-05 by mouth [facility] 40 MG 14:41: daily. of capsule 33 Medicin e MAGNESIUM Yes Take by [facility] [place] -05 mouth two [facility] 14:41: times of 33 daily. Medicin e clonidine Yes .1mg Take 0.1 [facility] (CATAPRES) 3-05 mg by [facility] 0.1 MG 14:41: mouth as of tablet 33 needed. Medicin e gabapentin 2020- No [id number] 100mg 1 capsule [facility] (NEURONTIN) 06-05 Use as [facility] 100 MG 00:00: 04:59 Directed of capsule 00 :00 for 30 Medicin days. Take e 100 mg twice daily during day. Take 300 mg at night before bedtime. Total 500mg daily Axitinib 5 2020- No [id number] 5mg Take 5 mg [facility] MG TABS 06-05 by mouth [place] 00:00: 04:59 two times of 00 :00 daily for Medicin 30 days. e gabapentin 2020- No [id number] 100mg 1 capsule [facility] (NEURONTIN) 06-05 Use as [facility] 100 MG 00:00: 04:59 Directed of capsule 00 :00 for 30 Medicin days. Take e 100 mg twice daily during day. Take 300 mg at night before bedtime. Total 500mg daily Axitinib 5 2020- No [id number] 5mg Take 5 mg [facility] MG TABS 06-05 by mouth [place] 00:00: 04:59 two times of 00 :00 [...] Medicin e verapamil 2020-0 Yes TAKE 1 [facility] (CALAN-SR) 2-09 TABLET BY [facility] 180 MG CR 00:00: MOUTH of tablet 00 DAILY. Medicin e clopidogrel 2020-0 Yes TAKE 1 [facility] (PLAVIX) 75 2-09 TABLET BY [facility] MG Tablet 00:00: MOUTH of 00 EVERY DAY Medicin e verapamil 2020-0 Yes TAKE 1 [facility] (CALAN-SR) 2-09 TABLET BY [facility] 180 MG CR 00:00: MOUTH of tablet 00 DAILY. Medicin e clopidogrel 2020-0 Yes TAKE 1 [facility] (PLAVIX) 75 2-09 TABLET BY [facility] MG Tablet 00:00: MOUTH of 00 EVERY DAY Medicin e verapamil 2021-0 Yes TAKE 1 [facility] (CALAN-SR) 2-09 TABLET BY [facility] 180 MG CR 00:00: MOUTH of tablet 00 DAILY. Medicin e clopidogrel 2021-0 Yes TAKE 1 [facility] (PLAVIX) 75 2-09 TABLET BY [facility] MG Tablet 00:00: MOUTH of 00 EVERY DAY Medicin e clopidogrel 0 Yes TAKE 1 [facility] (PLAVIX) 75 2-09 TABLET BY [facility] MG Tablet 00:00: MOUTH of 00 EVERY DAY Medicin e clopidogrel 0 Yes TAKE 1 [facility] (PLAVIX) 75 2-09 TABLET BY [facility] MG Tablet 00:00: MOUTH of 00 EVERY DAY Medicin e clopidogrel 0 Yes TAKE 1 [facility] (PLAVIX) 75 2-09 TABLET BY [facility] MG Tablet 00:00: MOUTH of 00 EVERY DAY Medicin e clopidogrel 0 Yes TAKE 1 [facility] (PLAVIX) 75 2-09 TABLET BY [facility] MG Tablet 00:00: MOUTH of 00 EVERY DAY Medicin e clopidogrel 0 Yes TAKE 1 [facility] (PLAVIX) 75 2-09 TABLET BY [facility] MG Tablet 00:00: MOUTH of 00 EVERY DAY Medicin e clopidogrel Yes TAKE 1 [facility] (PLAVIX) 75 2-09 TABLET BY [facility] MG Tablet 00:00: MOUTH of 00 EVERY DAY Medicin e clopidogrel 0 Yes TAKE 1 [facility] (PLAVIX) 75 2-09 TABLET BY [facility] MG Tablet 00:00: MOUTH of 00 EVERY DAY Medicin e clopidogrel 0 Yes TAKE 1 [facility] (PLAVIX) 75 2-09 TABLET BY [facility] MG Tablet 00:00: MOUTH of 00 EVERY DAY Medicin e verapamil 2020-0 2020- No TAKE 1 [facility] (CALAN-SR) 2-09 04-16 TABLET BY [facility] 180 MG CR 00:00: 00:00 MOUTH of tablet 00 :00 DAILY. Medicin e escitalopra Yes 20mg Take 20 mg [facility] m (LEXAPRO) 05-01 by mouth [facility] 20 MG 16:30: daily. of tablet 35 Medicin e Cobalamine Yes Take by [facility] Combination 05-01 mouth. [facility] (FOLIC + 16:30: of B12) 35 Medicin 800-1000 e MCG TABS Potassium Yes Take by [facility] Aminobenzoa 05-01 mouth. [facility] (POTABA) 16:30: of 500 MG TABS 35 Medicin e Cyanocobala Yes Take by [facility] (B-12 05-01 mouth. [facility] [place]) 16:30: of 35 Medicin e alprazolam Yes .5mg Take 0.5 [facility] (XANAX) 0.5 -29 mg by [place] MG tablet 16:30: mouth of 35 nightly as Medicin needed for e Sleep. estrogens, Yes 1.25mg Take 1.25 [facility] conjugated, 1-29 mg by [facility] (PREMARIN) 16:30: mouth of 1.25 MG 35 daily. Medicin tablet e gabapentin Yes 300mg Take 300 [facility] (NEURONTIN) -29 mg by [place] 300 MG 16:30: mouth 3 of capsule 35 times Medicin daily. e montelukast Yes 10mg Take 10 mg [facility] (SINGULAIR) 05-01 by mouth [facility] 10 MG 16:30: daily. of tablet 35 Medicin e Acetaminoph Yes Take by [facility] en 05-01 mouth. [place] (TYLENOL) 16:30: of 167 MG/5ML 35 Medicin LIQD e omeprazole Yes 40mg Take 40 mg [facility] (PRILOSEC) 05-01 by mouth [facility] 40 MG 16:30: daily. of capsule 35 Medicin e MAGNESIUM Yes Take by [facility] [place] 05-01 mouth two [facility] 16:30: times of 35 daily. Medicin e clonidine Yes .1mg Take 0.1 [facility] (CATAPRES) -29 mg by [place] 0.1 MG 16:30: mouth as of tablet [...] 18:57: daily. [facility]osp[facility] tablet 08 l ondansetron 0 Yes 4mg Q8H Take 4 mg M [...] Take 20 mg [facility] (LASIX) 20 1-[address] mg tablet 18:57: (two) Hospita 08 times a l day. candesartan 0 Yes 32mg QD Take 32 mg [facility] (ATACAND) 1-[address] 32 MG 18:57: daily. [facility]osp[facility] tablet 08 l clopidogreL 0 Yes 75mg QD Take 75 mg [facility] (PLAVIX) 75 1-[address] mg tablet 18:57: daily. Hospit a 08 l ALPRAZolam 0 Yes .5mg QD Take 0.5 [facility] (XANAX) 0.5 1-[address] MG tablet 18:57: mouth [facility]osp[facility] 08 nightly as l needed for anxiety. tiotropium Yes 1{capsu QD Place 1 M [...] Take 20 mg [facility] (LASIX) 20 1-[address] mg tablet 18:57: (two) [facility]ospita 08 times a l day. candesartan Yes 32mg QD Take 32 mg [facility] (ATACAND) 1-[address] 32 MG 18:57: daily. [facility]osp[facility] tablet 08 l clopidogreL Yes 75mg QD Take 75 mg [facility] (PLAVIX) 75 1-[address] mg tablet 18:57: daily. Hospit [facility] 08 l ALPRAZolam Yes .5mg QD Take 0.5 [facility] (XANAX) 0.5 1-[address] MG tablet 18:57: mouth [facility] 08 nightly as l needed for anxiety. tiotropium Yes 1{capsu QD Place 1 M [...] 200 mcg 08 daily. l tablet liothyronin 2021-0 Yes 5ug QD Take 5 mcg [facility] (CYTOMEL) 1-[address] 5 MCG 18:57: daily. [facility]osp[facility] tablet 08 l lovastatin Yes 10mg QD Take 10 mg [facility] (MEVACOR) 1-[address] 10 MG 18:57: nightly. [facility]ospita tablet 08 l furosemide Yes 20mg Q.5D Take 20 mg [facility] (LASIX) 20 1-[address] mg tablet 18:57: (two) [facility]osp[facility] 08 times a l day. candesartan Yes 32mg QD Take 32 mg [facility] (ATACAND) 1-[address] 32 MG 18:57: daily. [facility]osp[facility] tablet 08 l clopidogreL Yes 75mg QD Take 75 mg [facility] (PLAVIX) 75 1-[address] mg tablet 18:57: daily. Hospit a 08 l ALPRAZolam Yes .5mg QD Take 0.5 [facility] (XANAX) 0.5 1-[address] MG tablet 18:57: mouth [facility] 08 nightly as l needed for anxiety. tiotropium Yes 1{capsu QD Place 1 M [...] 18:57: daily. [facility]ospita tablet 08 l lovastatin 0 Yes 10mg QD Take 10 mg [facility] (MEVACOR) 1-[address] 10 MG 18:57: nightly. [facility]ospita tablet 08 l furosemide 0 Yes 20mg Q.5D Take 20 mg [facility] (LASIX) 20 1-[address] mg tablet 18:57: (two) Hospita 08 times a l day. candesartan Yes 32mg QD Take 32 mg [facility] (ATACAND) 1-[address] 32 MG 18:57: daily. [facility]ospita tablet 08 l clopidogreL Yes 75mg QD Take 75 mg [facility] (PLAVIX) 75 1-[address] mg tablet 18:57: daily. Hospit a 08 l ALPRAZolam Yes .5mg QD Take 0.5 [facility] (XANAX) 0.5 1-[address] MG tablet 18:57: mouth [facility]osp[facility] 08 nightly as l needed for anxiety. tiotropium Yes 1{capsu QD Place 1 [facility] (SPIRIVA) 1-25 le} capsule st 18 mcg per 18:57: into Hospita inhalation 08 inhaler l capsule and inhale once daily. carvediloL Yes 25mg Take 25 mg [facility] (COREG) 25 1-[address] MG tablet 18:57: once. Hospita 08 l oxybutynin 0 Yes 10mg QD Take 10 mg M [...] Take 20 mg [facility] (LASIX) 20 1-[address] mg tablet 18:57: (two) Hospita 08 times a l day. candesartan Yes 32mg QD Take 32 mg [facility] (ATACAND) 1-[address] 32 MG 18:57: daily. Hospita tablet 08 l clopidogreL Yes 75mg QD Take 75 mg [facility] (PLAVIX) 75 1-[address] mg tablet 18:57: daily. Hospit a 08 l ALPRAZolam Yes .5mg QD Take 0.5 [facility] (XANAX) 0.5 1-[address] MG tablet 18:57: mouth [facility]osp[facility] 08 nightly as l needed for anxiety. escitalopra 2019-04 Yes 20mg Take 20 mg [facility] m (LEXAPRO) 2-18 by mouth [facility] 20 MG 21:26: daily. of tablet 52 Medicin e Cobalamine 2019-04 Yes Take by [facility] Combination 2-18 mouth. [facility] (FOLIC + 21:26: of B12) 52 Medicin 800-1000 e MCG TABS Potassium 2019-04 Yes Take by [facility] Aminobenzoa 2-18 mouth. [facility] (POTABA) 21:26: of 500 MG TABS 52 Medicin e Cyanocobala 2019-04 Yes Take by [facility] (B-12 2-18 mouth. [facility] [place]) 21:26: of 52 Medicin e alprazolam 2019-04 Yes .5mg Take 0.5 [facility] (XANAX) 0.5 2-18 mg by [place] MG tablet 21:26: mouth of 52 nightly as Medicin needed for e Sleep. estrogens, 2019-04 Yes 1.25mg Take 1.25 [facility] conjugated, 2-18 mg by [place] (PREMARIN) 21:26: mouth of 1.25 MG 52 daily. Medicin tablet e gabapentin 2019-04 Yes 300mg Take 300 [facility] (NEURONTIN) 2-18 mg by [place] 300 MG 21:26: mouth 3 of capsule 52 times Medicin daily. e montelukast 2019-04 Yes 10mg Take 10 mg [facility] (SINGULAIR) 2-18 by mouth [facility] 10 MG 21:26: daily. of tablet 52 Medicin e Acetaminoph 2019-04 Yes Take by [facility] 2-18 mouth. [place] (TYLENOL) 21:26: of 167 MG/5ML 52 Medicin [...] 0.1 [facility] (CATAPRES) 2-18 mg by [place] 0.1 MG 21:26: mouth as of tablet 52 needed. Medicin e escitalopra 2019-04 Yes 20mg Take 20 mg [facility] m (LEXAPRO) 1-27 by mouth [facility] 20 MG 19:48: daily. of tablet 06 Medicin e Cobalamine 2019-04 Yes Take by [facility] Combination 04-29 mouth. [facility] (FOLIC + 19:48: of B12) 06 Medicin 800-1000 e MCG TABS Potassium 2019-04 Yes Take by [facility] Aminobenzoa 04-29 mouth. [facility] (POTABA) 19:48: of 500 MG TABS Medicin e Cyanocobala 2019-04 Yes Take by [facility] (B-12 04-29 mouth. [facility] [place]) 19:48: of 06 Medicin e alprazolam 2019-04 Yes .5mg Take 0.5 [facility] (XANAX) 0.5 -27 mg by [place] MG tablet 19:48: mouth of 06 nightly as Medicin needed for e Sleep. estrogens, 2019-04 Yes 1.25mg Take 1.25 [facility] conjugated, 1-27 mg by [place] (PREMARIN) 19:48: mouth of 1.25 MG 06 daily. Medicin tablet e gabapentin 2019-04 Yes 300mg Take 300 [facility] (NEURONTIN) -27 mg by [place] 300 MG 19:48: mouth 3 of capsule 06 times Medicin daily. e montelukast 2019-04 Yes 10mg Take 10 mg [facility] (SINGULAIR) 04-29 by mouth [facility] 10 MG 19:48: daily. of tablet 06 Medicin e Acetaminoph 2019-04 Yes Take by [facility] 04-29 mouth. [place] (TYLENOL) 19:48: of 167 MG/5ML 06 Medicin LIQD e omeprazole 2019-04 Yes 40mg Take 40 mg [facility] (PRILOSEC) 04-29 by mouth [place] [facility] 40 MG 19:48: daily. of capsule 06 Medicin e MAGNESIUM 2019-04 Yes Take by [facility] [place] 04-29 mouth two [facility] 19:48: times of 06 daily. Medicin e clonidine 2019-04 Yes .1mg Take 0.1 [facility] (CATAPRES) 1-27 mg by [place] 0.1 MG 19:48: mouth as of tablet 06 needed. Medicin e candesartan 2019-04 Yes [id number] TAKE 1 [facility] (ATACAND) 1-06 TABLET BY [place] [facility] 32 MG 00:00: MOUTH of tablet 00 EVERY DAY Medicin e candesartan 2019-04 Yes [id number] TAKE 1 [facility] (ATACAND) 1-06 TABLET BY [facility] 32 MG 00:00: MOUTH of tablet 00 EVERY DAY Medicin e candesartan 2019-04 Yes [id number] TAKE 1 [facility] (ATACAND) 1-06 TABLET BY [facility] 32 MG 00:00: MOUTH of tablet 00 EVERY DAY Medicin e candesartan 2019-04 Yes [id number] TAKE 1 [facility] (ATACAND) 1-06 TABLET BY [facility] 32 MG 00:00: MOUTH of tablet 00 EVERY DAY Medicin e candesartan 2019-04 Yes [id number] TAKE 1 [facility] (ATACAND) 1-06 TABLET BY [facility] 32 MG 00:00: MOUTH of tablet 00 EVERY DAY Medicin e candesartan 2019-04 Yes [id number] TAKE 1 [facility] (ATACAND) 1-06 TABLET BY [facility] 32 MG 00:00: MOUTH of tablet 00 EVERY DAY Medicin e candesartan 2019-04 Yes [id number] TAKE 1 [facility] (ATACAND) 1-06 TABLET BY [facility] 32 MG 00:00: MOUTH of tablet 00 EVERY DAY Medicin e candesartan 2019-04 Yes [id number] TAKE 1 [facility] (ATACAND) 1-06 TABLET BY [facility] 32 MG 00:00: MOUTH of tablet 00 EVERY DAY Medicin e candesartan 2019-04 Yes [id number] TAKE 1 [facility] (ATACAND) 1-06 TABLET BY [facility] 32 MG 00:00: MOUTH of tablet 00 EVERY DAY Medicin e candesartan 2019-04 Yes [id number] TAKE 1 [facility] (ATACAND) 1-06 TABLET BY [facility] 32 MG 00:00: MOUTH of tablet 00 EVERY DAY Medicin e candesartan 2019-04 Yes [id number] TAKE 1 [facility] (ATACAND) 1-06 TABLET BY [facility] 32 MG 00:00: MOUTH of tablet 00 EVERY DAY Medicin e escitalopra 2019-04 Yes 20mg Take 20 mg [facility] m (LEXAPRO) 0-14 by mouth [facility] 20 MG 13:38: daily. of tablet 19 Medicin e Cobalamine 2019-04 Yes Take by [facility] Combination 0-14 mouth. [facility] (FOLIC + 13:38: of B12) 19 Medicin 800-1000 e MCG TABS Potassium 2019-04 Yes Take by [facility] Aminobenzoa 0-14 mouth. [facility] (POTABA) 13:38: of 500 MG TABS 19 Medicin e Cyanocobala 2019-04 Yes Take by [facility] (B-12 0-14 mouth. [place]) 13:38: of 19 Medicin e alprazolam 2019-04 Yes .5mg Take 0.5 [facility] (XANAX) 0.5 0-14 mg by [place] MG tablet 13:38: mouth of 19 nightly as Medicin needed for e Sleep. estrogens, 2019-04 Yes 1.25mg Take 1.25 [facility] conjugated, 0-14 mg by [place] (PREMARIN) 13:38: mouth of 1.25 MG 19 daily. Medicin tablet e gabapentin 2019-04 Yes 300mg Take 300 [facility] (NEURONTIN) 0-14 mg by [place] 300 MG 13:38: mouth 3 of capsule 19 times Medicin daily. e montelukast 2019-04 Yes 10mg Take 10 mg [facility] (SINGULAIR) 0-14 by mouth [facility] 10 MG 13:38: daily. of tablet 19 Medicin e Acetaminoph 2019-04 Yes Take by [facility] 0-14 mouth. [place] (TYLENOL) 13:38: of 167 MG/5ML 19 Medicin LIQD e omeprazole 2019-04 Yes 40mg Take 40 mg [facility] (PRILOSEC) 0-14 by mouth [facility] 40 MG 13:38: daily. of capsule 19 Medicin e MAGNESIUM 2019-04 Yes Take by [facility] [place] 0-14 mouth two [place] 13:38: times of 19 daily. Medicin e clonidine 2019-04 Yes .1mg Take 0.1 [facility] (CATAPRES) 0-14 mg by [place] 0.1 MG 13:38: mouth as of tablet 19 needed. Medicin e guanfacine 2019-04 Yes 1mg Take 1 [...] of tag orally Medicin at bedtime e escitalopra [...] Take by [facility] Aminobenzoa 0-08 mouth. [facility] (POTABA) 19:45: of 500 MG TABS 17 Medicin e Cyanocobala 2019-04 Yes Take by [facility] (B-12 0-08 mouth. [facility] [place]) 19:45: of 17 Medicin e alprazolam 2019-04 Yes .5mg Take 0.5 [facility] (XANAX) 0.5 0-08 mg by [place] MG tablet 19:45: mouth of 17 nightly as Medicin needed for e Sleep. estrogens, 2019-04 Yes 1.25mg Take 1.25 [facility] conjugated, 0-08 mg by [place] (PREMARIN) 19:45: mouth of 1.25 MG 17 daily. Medicin tablet e gabapentin 2019-04 Yes 300mg Take 300 [facility] (NEURONTIN) 0-08 mg by [place] 300 MG 19:45: mouth 3 of capsule 17 times Medicin daily. e montelukast 2019-04 Yes 10mg Take 10 mg [facility] (SINGULAIR) 0-08 by mouth [facility] 10 MG 19:45: daily. of tablet 17 Medicin e Acetaminoph 2019-04 Yes Take by [facility] en 0-08 mouth. [place] (TYLENOL) 19:45: of 167 MG/5ML 17 Medicin LIQD e omeprazole 2019-04 Yes 40mg Take 40 mg [facility] (PRILOSEC) 0-08 by mouth [facility] 40 MG 19:45: daily. of capsule 17 Medicin e MAGNESIUM 2020-1 Yes Take by [facility] [place] 0-08 mouth two [facility] 19:45: times of 17 daily. Medicin e escitalopra 2020-0 Yes 20mg Take 20 mg [facility] m (LEXAPRO) 12-29 by mouth [facility] 20 MG 18:54: daily. of tablet 52 Medicin e Cobalamine 2020-0 Yes Take by [facility] Combination 12-29 mouth. [facility] (FOLIC + 18:54: of B12) 52 Medicin 800-1000 e MCG TABS Potassium 2020-0 Yes Take by [facility] Aminobenzoa 12-29 mouth. [facility] (POTABA) 18:54: of 500 MG TABS 52 Medicin e Cyanocobala 2020-0 Yes Take by [facility] min (B-12 12-29 mouth. [place]) 18:54: of 52 Medicin e alprazolam 2020-0 Yes .5mg Take 0.5 [facility] (XANAX) 0.5 - mg by [place] MG tablet 18:54: mouth of 52 nightly as Medicin needed for e Sleep. estrogens, 2020-0 Yes 1.25mg Take 1.25 [facility] conjugated, 9-28 mg by [place] (PREMARIN) 18:54: mouth of 1.25 MG 52 daily. Medicin tablet e gabapentin 2020-0 Yes 300mg Take 300 [facility] (NEURONTIN) - mg by [place] 300 MG 18:54: mouth 3 of capsule 52 times Medicin daily. e montelukast 2020-0 Yes 10mg Take 10 mg [facility] (SINGULAIR) 12-29 by mouth [facility] 10 MG 18:54: daily. of tablet 52 Medicin e Acetaminoph 2020-0 Yes Take by [facility] 12-29 mouth. [place] (TYLENOL) 18:54: of 167 MG/5ML 52 Medicin LIQD e omeprazole 2020-0 Yes 40mg Take 40 mg [facility] (PRILOSEC) 12-29 by mouth [facility] 40 MG 18:54: daily. of capsule 52 Medicin e MAGNESIUM 2020-0 Yes Take by [facility] [place] - mouth two [facility] 18:54: times of 52 daily. Medicin e clonidine 2020-0 Yes .1mg Take 0.1 [facility] (CATAPRES) 9-28 mg by [place] 0.1 MG 18:54: mouth as of tablet 52 needed. Medicin e clonidine 2020-0 Yes .1mg Take 0.1 [facility] (CATAPRES) 9-28 mg by [place] 0.1 MG 18:54: mouth as of tablet [...] 00 Medicin e verapamil 2020-0 Yes 180mg QD Take 180 [facility] [facility] 00:[facility] ([facility]) 00 daily. l 180 MG SR tablet verapamil 2020-0 Yes 180mg QD Take 180 [facility] sustained 9-[address] release 00:00: [facility] ([facility]-SR) 00 daily. l 180 MG SR tablet verapamil 2020-0 Yes 180mg QD Take 180 [facility] sustained 9-[address] release 00:00: [facility] (CALAN-SR) 00 daily. l 180 MG SR tablet verapamil 2020-0 Yes 180mg QD Take 180 [facility] sustained 9-[address] release 00:00: [facility] ([facility]-SR) 00 daily. l 180 MG SR tablet oxybutynin 2020-0 Yes [id number] TAKE 1 [facility] (DITROPAN-X 8-24 TABLET BY [facility]) 10 MG CR 00:00: MOUTH of tablet 00 EVERY DAY Medicin e oxybutynin 2020-0 Yes [id number] TAKE 1 [facility] (DITROPAN-X 8-24 TABLET BY [facility]) 10 MG CR 00:00: MOUTH of tablet 00 EVERY DAY Medicin e oxybutynin 2020-0 Yes [id number] TAKE 1 [facility] (DITROPAN-X 8-24 TABLET BY [facility]) 10 MG CR 00:00: MOUTH of tablet 00 EVERY DAY Medicin e oxybutynin 2020-0 Yes [id number] TAKE 1 [facility] (DITROPAN-X 8-24 TABLET BY [facility]) 10 MG CR 00:00: MOUTH of tablet 00 EVERY DAY Medicin e oxybutynin 2020-0 Yes [id number] TAKE 1 [facility] (DITROPAN-X 8-24 TABLET BY [facility]) 10 MG CR 00:00: MOUTH of tablet 00 EVERY DAY Medicin e oxybutynin 2020-0 Yes [id number] TAKE 1 [facility] (DITROPAN-X 8-24 TABLET BY [facility]) 10 MG CR 00:00: MOUTH of tablet 00 EVERY DAY Medicin e oxybutynin 2020-0 Yes [id number] TAKE 1 [facility] (DITROPAN-X 8-24 TABLET BY [facility]) 10 MG CR 00:00: MOUTH of tablet 00 EVERY DAY Medicin e oxybutynin 2020-0 Yes [id number] TAKE 1 [facility] (DITROPAN-X 8-24 TABLET BY [facility]) 10 MG CR 00:00: MOUTH of tablet 00 EVERY DAY Medicin e oxybutynin 2020-0 Yes [id number] TAKE 1 [facility] (DITROPAN-X 8-24 TABLET BY [facility]) 10 MG CR 00:00: MOUTH of tablet 00 EVERY DAY Medicin e oxybutynin 2020-0 Yes [id number] TAKE 1 [facility] (DITROPAN-X 8-24 TABLET BY [facility]) 10 MG CR 00:00: MOUTH of tablet 00 EVERY DAY Medicin e oxybutynin 2020-0 Yes [id number] TAKE 1 [facility] (DITROPAN-X 8-24 TABLET BY [facility]) 10 MG CR 00:00: MOUTH of tablet 00 EVERY DAY Medicin e oxybutynin 2020-0 Yes [id number] TAKE 1 [facility] (DITROPAN-X 8-24 TABLET BY [facility]) 10 MG CR 00:00: MOUTH of tablet 00 EVERY DAY Medicin e oxybutynin 2020-0 Yes [id number] TAKE 1 [facility] (DITROPAN-X 8-24 TABLET BY [facility]) 10 MG CR 00:00: MOUTH of tablet 00 EVERY DAY Medicin e oxybutynin 2020-0 Yes [id number] TAKE 1 [facility] (DITROPAN-X 8-24 TABLET BY [facility]) 10 MG CR 00:00: MOUTH of tablet 00 EVERY DAY Medicin e oxybutynin 2020-0 Yes [id number] TAKE 1 [facility] (DITROPAN-X 8-24 TABLET BY [facility]) 10 MG CR 00:00: MOUTH of tablet 00 EVERY DAY Medicin e oxybutynin 2020-0 Yes [id number] TAKE 1 [facility] (DITROPAN-X 8-24 TABLET BY [facility]) 10 MG CR 00:00: MOUTH of tablet 00 EVERY DAY Medicin e oxybutynin 2020-0 Yes [id number] TAKE 1 [facility] (DITROPAN-X 8-24 TABLET BY [facility]) 10 MG CR 00:00: MOUTH of tablet 00 EVERY DAY Medicin e oxybutynin 2020-0 Yes [id number] TAKE 1 [facility] (DITROPAN-X 8-24 TABLET BY [facility]) 10 MG CR 00:00: MOUTH of tablet 00 EVERY DAY Medicin e oxybutynin 2020-0 Yes [id number] TAKE 1 [facility] (DITROPAN-X 8-24 TABLET BY [facility]) 10 MG CR 00:00: MOUTH of tablet 00 EVERY DAY Medicin e oxybutynin 2020-0 Yes [id number] TAKE 1 [facility] (DITROPAN-X 8-24 TABLET BY [facility]) 10 MG CR 00:00: MOUTH of tablet 00 EVERY DAY Medicin e oxybutynin 2020-0 Yes [id number] TAKE 1 [facility] (DITROPAN-X 8-24 TABLET BY [facility]) 10 MG CR 00:00: MOUTH of tablet 00 EVERY DAY Medicin e oxybutynin 2020-0 Yes [id number] TAKE 1 [facility] (DITROPAN-X 8-24 TABLET BY [facility]) 10 MG CR 00:00: MOUTH of tablet 00 EVERY DAY Medicin e oxybutynin 2020-0 Yes [id number] TAKE 1 [facility] (DITROPAN-X 8-24 TABLET BY [facility]) 10 MG CR 00:00: MOUTH of tablet 00 EVERY DAY Medicin e oxybutynin 2020-0 Yes [id number] TAKE 1 [facility] (DITROPAN-X 8-24 TABLET BY [facility]) 10 MG CR 00:00: MOUTH of tablet 00 EVERY DAY Medicin e oxybutynin 2020-0 Yes [id number] TAKE 1 [facility] (DITROPAN-X 8-24 TABLET BY [facility]) 10 MG CR 00:00: MOUTH of tablet 00 EVERY DAY Medicin e oxybutynin 2020-0 Yes [id number] TAKE 1 [facility] (DITROPAN-X 8-24 TABLET BY [facility]) 10 MG CR 00:00: MOUTH of tablet 00 EVERY DAY Medicin e oxybutynin 2020-0 Yes [id number] TAKE 1 [facility] (DITROPAN-X 8-24 TABLET BY [facility]) 10 MG CR 00:00: MOUTH of tablet 00 EVERY DAY Medicin e oxybutynin 2020-0 2021- No [id number] TAKE 1 [facility] (DITROPAN-X 8-24 12-10 TABLET BY [facility]) 10 MG CR 00:00: 00:00 MOUTH of tablet 00 :00 EVERY DAY Medicin e escitalopra 2020-0 Yes 20mg Take 20 mg [facility] (LEXAPRO) 10-29 by mouth [facility] 20 MG 16:33: daily. of tablet 03 Medicin e Cobalamine 2020-0 Yes Take by [facility] Comb[facility] 10-29 mouth. [facility] (FOLIC + 16:33: of B12) 03 Medicin 800-1000 e MCG TABS Potassium 2020-0 Yes Take by [facility] Aminobenzoa 10-29 mouth. [facility] (POTABA) 16:33: of 500 MG TABS 03 Medicin e Cyanocobala 2020-0 Yes Take by [facility] (B-12 - mouth. [place]) 16:33: of 03 Medicin e alprazolam 2020-0 Yes .5mg Take 0.5 [facility] (XANAX) 0.5 7-29 mg by [place] MG tablet 16:33: mouth of 03 nightly as Medicin needed for e Sleep. estrogens, 2020-0 Yes 1.25mg Take 1.25 [facility] conjugated, 7-29 mg by [place] (PREMARIN) 16:33: mouth of 1.25 MG 03 daily. Medicin tablet e gabapentin 2020-0 Yes 300mg Take 300 [facility] (NEURONTIN) 7-29 mg by [place] 300 MG 16:33: mouth 3 of capsule 03 times Medicin daily. e montelukast 2020-0 Yes 10mg Take 10 mg [facility] (SINGULAIR) 10-29 by mouth [facility] 10 MG 16:33: daily. of tablet 03 Medicin e Acetaminoph 2020-0 Yes Take by [facility] 10-29 mouth. [place] (TYLENOL) 16:33: of 167 MG/5ML 03 Medicin LIQD e omeprazole 2020-0 Yes 40mg Take 40 mg [facility] (PRILOSEC) 10-29 by mouth [facility] 40 MG 16:33: daily. of capsule 03 Medicin e MAGNESIUM 2020-0 Yes Take by [facility] - mouth [facility] 16:33: times of 03 daily. Medicin e clonidine 2020-0 Yes .1mg Take 0.1 [facility] (CATAPRES) 7-29 mg by [place] 0.1 MG 16:33: mouth as of tablet 03 needed. Medicin e NIFEdipine 2020-0 Yes 90mg Take 1 Tab [facility] (ADALAT CC) 10-29 by mouth [facility] 90 MG CR 00:00: daily. of tablet 00 Medicin e SYMBICORT 2020-0 Yes [facility] 80-4.5 6- [place] MCG/ACT 00:00: of AERO 00 Medicin e SYMBICORT 2020-0 Yes [facility] 80-4.5 6-09 [place] MCG/ACT 00:00: of AERO 00 Medicin e [...] AERO 00 Medicin e SYMBICORT 2020-0 Yes [facility] 80-4.5 6-09 [facility] MCG/ACT 00:00: of AERO 00 Medicin e SYMBICORT 2020-0 Yes [facility] 80-4.5 6-09 [facility] MCG/ACT 00:00: of AERO 00 Medicin e SYMBICORT 2020-0 Yes [facility] 80-4.5 6-09 [facility] MCG/ACT 00:00: of AERO 00 Medicin e SYMBICORT 2020-0 Yes [facility] 80-4.5 6-09 [facility] MCG/ACT 00:00: of AERO 00 Medicin e SYMBICORT 2020-0 Yes [facility] 80-4.5 6-09 [facility] MCG/ACT 00:00: of [...] AERO 00 Medicin e SYMBICORT 2020-0 Yes [facility] 80-4.5 6-09 [facility] MCG/ACT 00:00: of AERO 00 Medicin e SYMBICORT 2020-0 Yes [facility] 80-4.5 6-09 [facility] MCG/ACT 00:00: of AERO 00 Medicin e SYMBICORT 2020-0 Yes [facility] 80-4.5 6-09 [facility] MCG/ACT 00:00: of AERO 00 Medicin e SYMBICORT 2020-0 Yes [facility] 80-4.5 6-09 [facility] MCG/ACT 00:00: of AERO 00 Medicin e SYMBICORT 2020-0 Yes [facility] 80-4.5 6-09 [facility] MCG/ACT 00:00: of AERO 00 Medicin e SYMBICORT 2020-0 Yes [facility] 80-4.5 6-09 [facility] MCG/ACT 00:00: of AERO 00 Medicin e SYMBICORT 2020-0 Yes [facility] 80-4.5 6-09 [facility] MCG/ACT 00:00: of AERO 00 Medicin e SYMBICORT 2020-0 Yes [facility] 80-4.5 6-09 [facility] MCG/ACT 00:00: of AERO 00 Medicin e SYMBICORT 2020-0 Yes [facility] 80-4.5 6-09 [facility] MCG/ACT 00:00: of AERO 00 Medicin e SYMBICORT 2020-0 Yes [facility] 80-4.5 6-09 [facility] MCG/ACT 00:00: of AERO 00 Medicin e SYMBICORT 2020-0 Yes [facility] 80-4.5 6-09 [facility] MCG/ACT 00:00: of AERO 00 Medicin e SYMBICORT 2020-0 Yes [facility] 80-4.5 6-09 [place] MCG/ACT 00:00: of AERO 00 Medicin e SYMBICORT 2020-0 Yes [facility] 80-4.5 09-09 [place] MCG/ACT 00:00: of AERO 00 Medicin e SYMBICORT 2020-0 Yes [facility] 80-4.5 09-09 [place] MCG/ACT 00:00: of AERO 00 Medicin e SYMBICORT 2020-0 3- No 2{puff} 2 Puffs B day [facility] 80-4.5 09-09 05- two times [place] MCG/ACT 00:00: 00:00 daily. of AERO 00 :00 Medicin e candesartan 2020-0 Yes [id number] TAKE 1 [facility] (ATACAND) 5-14 TABLET BY [facility] 32 MG 00:00: MOUTH of tablet 00 EVERY DAY Medicin e candesartan 2020-0 Yes [id number] TAKE 1 [facility] (ATACAND) 5-14 TABLET BY [facility] 32 MG 00:00: MOUTH of tablet 00 EVERY DAY Medicin e candesartan 2020-0 Yes [id number] TAKE 1 [facility] (ATACAND) 5-14 TABLET BY [facility] 32 MG 00:00: MOUTH of tablet 00 EVERY DAY Medicin e candesartan 2020-0 Yes [id number] TAKE 1 [facility] (ATACAND) 5-14 TABLET BY [facility] 32 MG 00:00: MOUTH of tablet 00 EVERY DAY Medicin e lovastatin 2019-0 2020- No 10mg Take 10 mg [facility] (MEVACOR) 05-01 by mouth [facility] 10 MG 18:00: 00:00 every of tablet 39 :00 evening. Medicin e clopidogrel 2019-0 2020- No 75mg Take 75 mg [facility] (PLAVIX) 75 05-01 by mouth [facility] MG tablet 18:00: 00:00 daily. of 15 :00 Medicin e escitalopra 2019-0 Yes 20mg Take 20 mg [facility] m (LEXAPRO) 05-01 by mouth [facility] 20 MG 17:10: daily. of tablet 06 Medicin e Cobalamine 2019-0 Yes Take by [facility] 05-01 mouth. [facility] (FOLIC + 17:10: of B12) Medicin 800-1000 e MCG TABS Potassium Yes Take by [facility] Aminobenzoa 05-01 mouth. [facility] (POTABA) 17:10: of 500 MG TABS 06 Medicin e Cyanocobala 2020-0 Yes Take by [facility] (B-12 05-01 mouth. [place]) 17:10: of 06 Medicin e alprazolam 2020-0 Yes .5mg Take 0.5 [facility] (XANAX) 0.5 1-29 mg by [place] MG tablet 17:10: mouth of 06 nightly as Medicin needed for e Sleep. estrogens, 2020-0 Yes 1.25mg Take 1.25 [facility] conjugated, 1-29 mg by [place] (PREMARIN) 17:10: mouth of 1.25 MG 06 daily. Medicin tablet e gabapentin 2020-0 Yes 300mg Take 300 [facility] (NEURONTIN) -29 mg by [place] 300 MG 17:10: mouth 3 of capsule 06 times Medicin daily. e montelukast 2020-0 Yes 10mg Take 10 mg [facility] (SINGULAIR) 05-01 by mouth [facility] 10 MG 17:10: daily. of tablet 06 Medicin e Acetaminoph 2020-0 Yes Take by [facility] 05-01 mouth. [place] (TYLENOL) 17:10: of 167 MG/5ML 06 Medicin [...] 0.1 [facility] (CATAPRES) 1-29 mg by [place] 0.1 MG 17:10: mouth as of tablet [...] clopidogrel 2020-0 Yes 75mg Take 1 Tab [facility] (PLAVIX) 75 1-29 by mouth Suad [...] clopidogrel 2020-0 Yes 75mg Take 1 Tab [facility] (PLAVIX) 75 1-29 by mouth Suad [...] daily. of 00 Medicin e furosemide 2020-0 202- No 20mg Take 1 Tab [facility] (LASIX) 20 1-29 12-10 by mouth [facility] MG tablet 00:00: 00:00 daily. of 00 :00 Medicin e lovastatin 2020-0 2020- No 10mg Take 1 Tab [facility] (MEVACOR) -29 10-08 by mouth [facility] 10 MG 00:00: 00:00 every of tablet 00 :00 evening. Medicin e LANSOPRAZOL 2018-0 Yes Take by [facility] (PREVACID 9-23 mouth. ity of ORAL) 20:29: [address] CYANOCOBALA 0 Yes Take by [facility] MIN, 9-23 mouth. ity of VITAMIN 20:29: [place] [id number] Medical (VITAMIN Branch B-12 ORAL) FOLIC ACID 2018-0 Yes Take by [facility] ers ORAL 9-23 mouth. ity of 20:29: [address] Branch LANSOPRAZOL 2018-0 Yes Take by [facility] (PREVACID 9-23 mouth. ity of ORAL) 20:29: [address] CYANOCOBALA 0 Yes Take by [facility] MIN, 9-23 mouth. ity of VITAMIN 20:29: [place] [id number] Medical (VITAMIN Branch B-12 ORAL) FOLIC ACID 0 Yes Take by [facility] ORAL 9-23 mouth. ity of 20:29: [address] LANSOPRAZOL 0 Yes Take by [facility] (PREVACID 9-23 mouth. ity of ORAL) 20:29: [address] CYANOCOBALA 0 Yes Take by [facility] MIN, 9-23 mouth. ity of VITAMIN 20:29: [place] [id number] Medical (VITAMIN Branch B-12 ORAL) FOLIC ACID 2018-0 Yes Take by [facility] ORAL 9-23 mouth. ity of 20:29: [address] LANSOPRAZOL 0 Yes Take by [facility] (PREVACID 9-23 mouth. ity of ORAL) 20:29: [address] CYANOCOBALA 0 Yes Take by [facility] MIN, 9-23 mouth. ity of VITAMIN 20:29: [place] [id number] Medical (VITAMIN Branch B-12 ORAL) FOLIC ACID 2018-0 Yes Take by [facility] ORAL 9-23 mouth. ity of 20:29: [address] LANSOPRAZOL 2018-0 Yes Take by [facility] (PREVACID 9-23 mouth. ity of ORAL) 15:29: [address] CYANOCOBALA 2018-0 Yes Take by [facility] MIN, 9-23 mouth. ity of VITAMIN 15:29: [place] [id number] Medical (VITAMIN Branch B-12 ORAL) FOLIC ACID 2019-0 Yes Take by [facility] ORAL 9-23 mouth. ity of 15:29: [address] Branch LANSOPRAZOL 2019-0 Yes Take by [facility] (PREVACID 9-23 mouth. ity of ORAL) 15:29: [address] CYANOCOBALA 2018-0 Yes Take by [facility] MIN, 9-23 mouth. ity of VITAMIN 15:29: [place] [id number] Medical (VITAMIN Branch B-12 ORAL) FOLIC ACID 2018-0 Yes Take by [facility] ORAL 9-23 mouth. ity of 15:29: [address] Branch LANSOPRAZOL 2018-0 Yes Take by [facility] (PREVACID 9-23 mouth. ity of ORAL) 15:29: [address] CYANOCOBALA 2018-0 Yes Take by [facility] MIN, 9-23 mouth. ity of VITAMIN 15:29: [place] [id number] Medical (VITAMIN Branch B-12 ORAL) FOLIC ACID 2018-0 Yes Take by [facility] ORAL 9-23 mouth. ity of 15:29: [address] LANSOPRAZOL 2018-0 Yes Take by [facility] (PREVACID 9-23 mouth. ity of ORAL) 15:29: [address] CYANOCOBALA 0 Yes Take by [facility] MIN, 9-23 mouth. ity of VITAMIN 15:29: [place] [id number] Medical (VITAMIN Branch B-12 ORAL) LANSOPRAZOL 2018-0 Yes Take by [facility] (PREVACID 9-23 mouth. ity of ORAL) 15:29: [address] CYANOCOBALA 2018-0 Yes Take by [facility] MIN, 9-23 mouth. ity of VITAMIN 15:29: [place] [address] Medical (VITAMIN Branch B-12 ORAL) LANSOPRAZOL 2019-0 Yes Take by [facility] (PREVACID 9-23 mouth. ity of ORAL) 15:29: [address] Branch CYANOCOBALA 2019-0 Yes Take by [facility] MIN, 9-23 mouth. ity of VITAMIN 15:29: [place] [address] Medical (VITAMIN Branch B-12 ORAL) FOLIC ACID 2018-0 Yes Take by [facility] ORAL 9-23 mouth. ity of 15:29: [address] LANSOPRAZOL Yes Take by [facility] (PREVACID 9-23 mouth. ity of ORAL) 15:29: [address] Branch CYANOCOBALA Yes Take by [facility] MIN, 9-23 mouth. ity of VITAMIN 15:29: [place] B12, 56 Medical (VITAMIN Branch B-12 ORAL) FOLIC ACID Yes Take by [facility] ORAL 9-23 mouth. ity of 15:29: [address] LANSOPRAZOL Yes Take by [facility] (PREVACID 9-23 mouth. ity of ORAL) 15:29: [address] CYANOCOBALA Yes Take by [facility] MIN, 9-23 mouth. ity of VITAMIN 15:29: [place] B12, Medical (VITAMIN Branch B-12 ORAL) FOLIC ACID Yes Take by [facility] ORAL 9-23 mouth. ity of 15:29: [address] furosemide Yes Univers 20 mg 9-10 ity of tablet 00:00: [facility] Branch ondansetron Yes Univer s 4 mg 9-10 ity of disintegrat 00:00: [place] ing tablet Medical Branch furosemide 2018-0 Yes Univers 20 mg 9-10 ity of tablet 00:00: Medical Branch ondansetron 0 Yes Univer s 4 mg 9-10 ity of disintegrat 00:00: [place] ing tablet Medical Branch furosemide 2018-0 Yes [facility] 20 mg 9-10 ity of tablet 00:00: [place] [facility] ondansetron 0 Yes Univer s 4 mg 9-10 ity of disintegrat 00:00: [place] ing tablet Medical Branch furosemide 2018-0 Yes Univers 20 mg 9-10 ity of tablet 00:00: Medical Branch ondansetron 2018-0 Yes Univer s 4 mg 9-10 ity of disintegrat 00:00: [place] ing tablet Medical Branch furosemide 2018-0 Yes [facility] 20 mg 9-10 ity of tablet 00:00: Medical Branch ondansetron 0 Yes Univer s 4 mg 9-10 ity of disintegrat 00:00: [place] ing tablet Medical Branch furosemide 2018-0 Yes [facility] 20 mg 9-10 ity of tablet 00:00: [place] 00 Medical Branch ondansetron Yes Univer s 4 [...] disintegrat 00:00: [place] ing tablet Medical Branch escitalopra Yes 20mg Take 20 mg [facility] (LEXAPRO) 8- by mouth [facility] 20 MG 14:55: daily. of tablet 47 Medicin e Cobalamine Yes Take by [facility] Combination 11-22 mouth. [place] [facility] (FOLIC + 14:55: of B12) 47 Medicin 800-1000 e MCG TABS Potassium Yes Take by [facility] Aminobenzoa 11-22 mouth. [place] [facility] (POTABA) 14:55: of 500 MG TABS 47 Medicin e Cyanocobala Yes Take by [facility] (B-12 - mouth. [facility]) 14:55: of 47 Medicin e estrogens, Yes 1.25mg Take 1.25 [facility] conjugated, 8-22 mg by [place] (PREMARIN) 14:55: mouth of 1.25 MG 47 daily. Medicin tablet e gabapentin Yes 300mg Take 300 [facility] (NEURONTIN) 8-22 mg by [place] 300 MG 14:55: mouth 3 of capsule 47 times Medicin daily. e lovastatin Yes 10mg Take 10 mg [facility] (MEVACOR) 8-22 by mouth Colleg e 10 MG 14:55: every of tablet 47 evening. Medicin e montelukast Yes 10mg Take 10 mg [facility] (SINGULAIR) 8-22 by mouth [facility] 10 MG 14:55: daily. of tablet 47 Medicin e clopidogrel Yes 75mg Take 75 mg [facility] (PLAVIX) 75 8-22 by mouth [facility] MG tablet 14:55: daily. of 47 Medicin e omeprazole Yes 40mg Take 40 mg [facility] (PRILOSEC) 8-22 by mouth [facility]le [facility] 40 MG 14:55: daily. of capsule 47 Medicin e MAGNESIUM Yes Take by [facility] 8- mouth two [facility] 14:55: times of 47 daily. Medicin e clonidine Yes .1mg Take 0.1 [facility] (CATAPRES) 8-22 mg by [facility] 0.1 MG 14:55: mouth as of tablet 47 needed. Medicin e alprazolam Yes .5mg Take 0.5 [facility] (XANAX) 0.5 8-22 mg by [place] MG tablet 14:54: mouth of 40 nightly as Medicin needed for e Sleep. Acetaminoph Yes Take by [facility] 8-22 mouth. College (TYLENOL) 14:54: of 167 MG/5ML 40 Medicin LIQD e oxybutynin Yes [id number] 10mg Take 1 Tab [facility] (DITROPAN-X 7-11 by mouth [facility] [...] daily. of 00 Medicin e oxybutynin Yes [id number] 10mg Take 1 Tab [facility] (DITROPAN-X 7-11 by mouth [facility] L) 10 MG CR 00:00: daily. of tablet 00 Medicin e candesartan 2019-0 Yes 32mg Take 1 Tab [facility] (ATACAND) 7-11 by mouth Colleg e 32 [...] of 00 Medicin e oxybutynin 2019-0 Yes [id number] 10mg Take 1 Tab [facility] (DITROPAN-X 7-11 [...] 7-11 by mouth. ity of tablet 00:00: [address] candesartan 2019-0 Yes 32mg Take 32 mg [facility] 32 mg 7-11 by mouth. ity of tablet 00:00: [place] [facility] candesartan 2019-0 Yes 32mg Take 32 mg [facility] 32 mg 7-11 by mouth. ity of tablet 00:00: [place] [facility] candesartan 2019-0 Yes 32mg Take 32 mg [facility] 32 mg 7-11 by mouth. ity of tablet 00:00: [address] candesartan 2019-0 Yes 32mg Take 32 mg [facility] 32 mg 7-11 by mouth. ity of tablet 00:00: [address] candesartan 2019-0 Yes 32mg Take 32 mg [facility] 32 mg 7-11 by mouth. ity of tablet 00:00: [place] [facility] candesartan 2019-0 Yes 32mg Take 32 mg [facility] 32 mg 7-11 by mouth. ity of tablet 00:00: [facility] candesartan 2019-0 Yes 32mg Take 32 mg [facility] 32 mg 7-11 by mouth. ity of tablet 00:00: [address] candesartan 2019-0 Yes 32mg Take 32 mg [facility] 32 mg 7-11 by mouth. ity of tablet 00:00: [address] candesartan 2019-0 Yes 32mg Take 32 mg [facility] 32 mg 7-11 by mouth. ity of tablet 00:00: [address] furosemide 2018-0 Yes 20mg Take 20 mg [facility] (LASIX) 20 3-15 by mouth Colle ge MG tablet 00:00: daily. of 00 Medicin e furosemide 2020- No 20mg Take 20 mg [facility] (LASIX) 20 3-15 -29 by mouth [facility] MG tablet 00:00: 00:00 daily. of 00 :00 Medicin e ondansetron 2018-0 Yes [id number] 4mg Take 1 Tab [facility] (ZOFRAN-ODT 6-29 by mouth 2 [facility]lege ) 4 mg 00:00: times of disintegrat 00 daily as Medi michael ing tablet needed for e Nausea. ondansetron 2018- Yes [id number] 4mg Take 1 Tab [facility] (ZOFRAN-ODT 6-29 by mouth 2 Co [facility]lege ) 4 mg 00:00: times of disintegrat 00 daily as Medi michael ing tablet needed for e Nausea. ondansetron Yes [id number] 4mg Take 1 Tab [facility] (ZOFRAN-ODT 6-29 by mouth 2 [facility]lege ) 4 mg 00:00: times of disintegrat 00 daily as Medi michael ing tablet needed for e Nausea. ondansetron Yes [id number] 4mg Take 1 Tab [facility] (ZOFRAN-ODT 6-29 by mouth 2 [facility]lege ) 4 mg 00:00: times of disintegrat 00 daily as Medi michael ing tablet needed for e Nausea. ondansetron Yes [id number] 4mg Take 1 Tab [facility] (ZOFRAN-ODT 6-29 by mouth 2 Co llege ) 4 mg 00:00: times of disintegrat 00 daily as Medi michael ing tablet needed for e Nausea. ondansetron 2017- Yes [id number] 4mg Take 1 Tab [facility] (ZOFRAN-ODT 6-29 by mouth 2 Co [facility]lege ) 4 mg 00:00: times of disintegrat 00 daily as Medi michael ing tablet needed for e Nausea. ondansetron 2017- Yes [id number] 4mg Take 1 Tab [facility] (ZOFRAN-ODT 6-29 by mouth 2 [facility]lege ) 4 mg 00:00: times of disintegrat 00 daily as Medi michael ing tablet needed for e Nausea. ondansetron 2017-0 Yes [id number] 4mg Take 1 Tab [facility] (ZOFRAN-ODT 6-29 by mouth 2 [facility]lege ) 4 mg 00:00: times of disintegrat 00 daily as Medi michael ing tablet needed for e Nausea. ondansetron 2017- Yes [id number] 4mg Take 1 Tab [facility] (ZOFRAN-ODT 6-29 by mouth 2 [facility]lege ) 4 mg 00:00: times of disintegrat 00 daily as Medi michael ing tablet needed for e Nausea. ondansetron 2018-0 Yes [id number] 4mg Take 1 Tab [facility] (ZOFRAN-ODT 6-29 by mouth 2 [facility]lege ) 4 mg 00:00: times of disintegrat 00 daily as Medi michael ing tablet needed for e Nausea. ondansetron Yes [id number] 4mg Take 1 Tab [facility] (ZOFRAN-ODT 6-29 by mouth 2 [facility]lege ) 4 mg 00:00: times of disintegrat 00 daily as Medi michael ing tablet needed for e Nausea. ondansetron Yes [id number] 4mg Take 1 Tab [facility] (ZOFRAN-ODT 6-29 by mouth 2 [facility]lege ) 4 mg 00:00: times of disintegrat 00 daily as Medi michael ing tablet needed for e Nausea. ondansetron Yes [id number] 4mg Take 1 Tab [facility] (ZOFRAN-ODT 6-29 by mouth 2 Co llege ) 4 mg 00:00: times of disintegrat 00 daily as Medi michael ing tablet needed for e Nausea. ondansetron Yes [id number] 4mg Take 1 Tab [facility] (ZOFRAN-ODT 6-29 by mouth 2 [facility]lege ) 4 mg 00:00: times of disintegrat 00 daily as Medi michael ing tablet needed for e Nausea. ondansetron 2017- Yes [id number] 4mg Take 1 Tab [facility] (ZOFRAN-ODT 6-29 by mouth 2 Co llege ) 4 mg 00:00: times of disintegrat 00 daily as Medi michael ing tablet needed for e Nausea. ondansetron Yes [id number] 4mg Take 1 Tab [facility] (ZOFRAN-ODT 6-29 by mouth 2 Co [facility]lege ) 4 mg 00:00: times of disintegrat 00 daily as Medi michael ing tablet needed for e Nausea. ondansetron Yes [id number] 4mg Take 1 Tab [facility] (ZOFRAN-ODT 6-29 by mouth 2 Co llege ) 4 mg 00:00: times of disintegrat 00 daily as Medi michael ing tablet needed for e Nausea. ondansetron Yes [id number] 4mg Take 1 Tab [facility] (ZOFRAN-ODT 6-29 by mouth 2 [facility]lege ) 4 mg 00:00: times of disintegrat 00 daily as Medi michael ing tablet needed for e Nausea. ondansetron 2018-0 Yes [id number] 4mg Take 1 Tab [facility] (ZOFRAN-ODT 6-29 by mouth 2 Co [facility]lege ) 4 mg 00:00: times of disintegrat 00 daily as Medi michael ing tablet needed for e Nausea. ondansetron Yes [id number] 4mg Take 1 Tab [facility] (ZOFRAN-ODT 6-29 by mouth 2 Co llege ) 4 mg 00:00: times of disintegrat 00 daily as Medi michael ing tablet needed for e Nausea. ondansetron Yes [id number] 4mg Take 1 Tab [facility] (ZOFRAN-ODT 6-29 by mouth 2 Co llege ) 4 mg 00:00: times of disintegrat 00 daily as Medi michael ing tablet needed for e Nausea. ondansetron Yes [id number] 4mg Take 1 Tab [facility] (ZOFRAN-ODT 6-29 by mouth 2 Co [facility]lege ) 4 mg 00:00: times of disintegrat 00 daily as Medi michael ing tablet needed for e Nausea. ondansetron Yes [id number] 4mg Take 1 Tab [facility] (ZOFRAN[facility]ODT 6-29 [facility] ) 4 mg 00:00: times of disintegrat 00 daily as Medi michael ing tablet needed for e Nausea. ondansetron 2017-0 Yes [id number] 4mg Take 1 Tab [facility] (ZOFR[facility]-ODT 6-29 [facility] ) 4 mg 00:00: times of disintegrat 00 daily as Medi michael ing tablet needed for e Nausea. ondansetron 2018-0 Yes [id number] 4mg Take 1 Tab [facility] (ZOFRAN-ODT 6-29 [facility] ) 4 mg 00:00: times of disintegrat 00 daily as Medi michael ing tablet needed for e Nausea. ondansetron 2017-0 Yes [id number] 4mg Take 1 Tab [facility] (ZOFRAN-ODT 6-29 by mouth [facility] ) 4 mg 00:00: times of disintegrat 00 daily as Medi michael ing tablet needed for e Nausea. ondansetron 2017-0 Yes [id number] 4mg Take 1 Tab [facility] ([facility]FR[facility]-ODT 6-29 by mouth [facility] ) 4 mg 00:00: times of disintegrat 00 daily as Medi michael ing tablet needed for e Nausea. ondansetron 2017-0 Yes [id number] 4mg Take 1 Tab [facility] (ZOFRAN-ODT 6-29 [facility] ) 4 mg 00:00: times of disintegrat 00 daily as Medi michael ing tablet needed for e Nausea. ondansetron Yes [id number] 4mg Take 1 Tab [facility] (ZOFRAN-ODT 6-29 by mouth [facility] ) 4 mg 00:00: times of disintegrat 00 daily as Medi michael ing tablet needed for e Nausea. ondansetron Yes [id number] 4mg Take 1 Tab [facility] (ZOFRAN-ODT 6-29 by mouth [facility] ) 4 mg 00:00: times of disintegrat 00 daily as Medi michael ing tablet needed for e Nausea. ondansetron Yes [id number] 4mg Take 1 Tab [facility] (ZOFRAN-ODT 6-29 by mouth [facility] ) 4 mg 00:00: times of disintegrat 00 daily as Medi michael ing tablet needed for e Nausea. ondansetron 2017- Yes [id number] 4mg Take 1 Tab [facility] (ZOFRAN-ODT 6-29 by mouth [facility] ) 4 mg 00:00: times of disintegrat 00 daily as Medi michael ing tablet needed for e Nausea. ondansetron 2017- Yes [id number] 4mg Take 1 Tab [facility] (ZOFRAN-ODT 6-29 by mouth 2 [facility] ) 4 mg 00:00: times of disintegrat 00 daily as Medi michael ing tablet needed for e Nausea. ondansetron 2017-0 Yes [id number] 4mg Take 1 Tab [facility] (ZOFRAN-ODT 6-29 by mouth [facility] ) 4 mg 00:00: times of disintegrat 00 daily as Medi michael ing tablet needed for e Nausea. ondansetron 2017-0 Yes [id number] 4mg Take 1 Tab [facility] (ZOFRAN-ODT 6-29 by mouth [facility] ) 4 mg 00:00: times of disintegrat 00 daily as Medi michael ing tablet needed for e Nausea. ondansetron Yes [id number] 4mg Take 1 Tab [facility] (ZOFRAN-ODT 6-29 by mouth 2 [facility] ) 4 mg 00:00: times of disintegrat 00 daily as Medi michael ing tablet needed for e Nausea. ondansetron Yes [id number] 4mg Take 1 Tab [facility] (ZOFRAN-ODT 6-29 by mouth 2 [facility] ) 4 mg 00:00: times of disintegrat 00 daily as Medi michael ing tablet needed for e Nausea. ondansetron Yes [id number] 4mg Take 1 Tab [facility] (ZOFRAN-ODT 6-29 by mouth [facility] ) 4 mg 00:00: times of disintegrat 00 daily as Medi michael ing tablet needed for e Nausea. ondansetron Yes [id number] 4mg Take 1 Tab [facility] (ZOFRAN-ODT 6-29 by mouth 2 [facility] ) 4 mg 00:00: times of disintegrat 00 daily as Medi michael ing tablet needed for e Nausea. ondansetron Yes [id number] 4mg Take 1 Tab [facility] (ZOFRAN-ODT 6-29 by mouth 2 [facility] ) 4 mg 00:00: times of disintegrat 00 daily as Medi michael ing tablet needed for e Nausea. ondansetron Yes [id number] 4mg Take 1 Tab [facility] (ZOFRAN-ODT 6-29 by mouth 2 [facility] ) 4 mg 00:00: times of disintegrat 00 daily as Medi michael ing tablet needed for e Nausea. ondansetron Yes [id number] 4mg Take 1 Tab [facility] (ZOFRAN-ODT 6-29 by mouth 2 [facility] ) 4 mg 00:00: times of disintegrat 00 daily as Medi michael ing tablet needed for e Nausea. ondansetron Yes [id number] 4mg Take 1 Tab [facility] (ZOFRAN-ODT 6-29 by mouth 2 [facility] ) 4 mg 00:00: times of disintegrat 00 daily as Medi michael ing tablet needed for e Nausea. ondansetron 2017- Yes [id number] 4mg Take 1 Tab [facility] (ZOFRAN-ODT 6-29 by mouth [facility] ) 4 mg 00:00: times of disintegrat 00 daily as Medi michael ing tablet needed for e Nausea. ondansetron Yes [id number] 4mg Take 1 Tab [facility] (ZOFRAN-ODT 6-29 by mouth 2 [facility] ) 4 mg 00:00: times of disintegrat 00 daily as Medi michael ing tablet needed for e Nausea. ondansetron Yes [id number] 4mg Take 1 Tab [facility] (ZOFRAN-ODT 6-29 by mouth 2 [facility] ) 4 mg 00:00: times of disintegrat 00 daily as Medi michael ing tablet needed for e Nausea. ondansetron Yes [id number] 4mg Take 1 Tab [facility] (ZOFRAN-ODT 6-29 by mouth 2 [facility] ) 4 mg 00:00: times of disintegrat 00 daily as Medi michael ing tablet needed for e Nausea. ondansetron Yes [id number] 4mg Take 1 Tab [facility] (ZOFRAN-ODT 6-29 by mouth 2 [facility] ) 4 mg 00:00: times of disintegrat 00 daily as Medi michael ing tablet needed for e Nausea. ondansetron Yes [id number] 4mg Take 1 Tab [facility] (ZOFRAN-ODT 6-29 by mouth 2 [facility] ) 4 mg 00:00: times of disintegrat 00 daily as Medi michael ing tablet needed for e Nausea. ondansetron Yes [id number] 4mg Take 1 Tab [facility] (ZOFRAN-ODT 6-29 by mouth 2 [employer] [facility] ) 4 mg 00:00: times of disintegrat 00 daily as Medi michael ing tablet needed for e Nausea. ondansetron 2017-0 Yes [id number] 4mg Take 1 Tab [facility] (ZOFRAN-ODT 6-29 by mouth [facility] [employer] [facility] ) 4 mg 00:00: times of disintegrat 00 daily as Medi michael ing tablet needed for e Nausea. ondansetron 2017-0 Yes [id number] 4mg Take 1 Tab [facility] (ZOFRAN-ODT 6-29 by mouth [facility] ) 4 mg 00:00: times of disintegrat 00 daily as Medi michael ing tablet needed for e Nausea. ondansetron 2017-0 Yes [id number] 4mg Take 1 Tab [facility] (ZOFRAN-ODT 6-29 by mouth [facility] [employer] [facility] ) 4 mg 00:00: times of disintegrat 00 daily as Medi michael ing tablet needed for e Nausea. ondansetron 0 Yes [id number] 4mg Take 1 Tab [facility] (ZOFRAN-ODT 6-29 by mouth 2 [facility] ) 4 mg 00:00: times of disintegrat 00 daily as Medi michael ing tablet needed for e Nausea. ondansetron Yes [id number] 4mg Take 1 Tab [facility] (ZOFRAN-ODT 6-29 by mouth 2 [facility] ) 4 mg 00:00: times of disintegrat 00 daily as Medi michael ing tablet needed for e Nausea. ondansetron Yes [id number] 4mg Take 1 Tab [facility] (ZOFRAN-ODT 6-29 by mouth 2 [facility] ) 4 mg 00:00: times of disintegrat 00 daily as Medi michael ing tablet needed for e Nausea. ondansetron Yes [id number] 4mg Take 1 Tab [facility] (ZOFRAN-ODT 6-29 by mouth 2 [employer] [facility] ) 4 mg 00:00: times of disintegrat 00 daily as Medi michael ing tablet needed for e Nausea. ondansetron 2017- Yes [id number] 4mg Take 1 Tab [facility] (ZOFRAN-ODT 6-29 by mouth [facility] ) 4 mg 00:00: times of disintegrat 00 daily as Medi michael ing tablet needed for e Nausea. ondansetron Yes [id number] 4mg Take 1 Tab [facility] (ZOFRAN-ODT 6-29 by mouth [facility] ) 4 mg 00:00: times of disintegrat 00 daily as Medi michael ing tablet needed for e Nausea. ondansetron 2017-0 Yes [id number] 4mg Take 1 Tab [facility] (ZOFRAN-ODT 6-29 by mouth [facility] ) 4 mg 00:00: times of disintegrat 00 daily as Medi michael ing tablet needed for e Nausea. ondansetron 2017-0 Yes [id number] 4mg Take 1 Tab [facility] (ZOFRAN-ODT 6-29 by mouth [facility] [employer] [facility] ) 4 mg 00:00: times of disintegrat 00 daily as Medi michael ing tablet needed for e Nausea. ondansetron 2018-0 Yes [id number] 4mg Take 1 Tab [facility] (ZOFRAN-ODT 6-29 by mouth [facility] [employer] [facility] ) 4 mg 00:00: times of disintegrat 00 daily as Medi michael ing tablet needed for e Nausea. ondansetron 2017-0 Yes [id number] 4mg Take 1 Tab [facility] (ZOFRAN-ODT 6-29 by mouth [facility] [employer] [facility] ) 4 mg 00:00: times of disintegrat 00 daily as Medi michael ing tablet needed for e Nausea. ondansetron 2017-0 Yes [id number] 4mg Take 1 Tab [facility] (ZOFRAN-ODT 6-29 by mouth [facility] [employer] [facility] ) 4 mg 00:00: times of disintegrat 00 daily as Medi michael ing tablet needed for e Nausea. ondansetron Yes [id number] 4mg Take 1 Tab [facility] (ZOFRAN-ODT 6-29 by mouth 2 [facility] ) 4 mg 00:00: times of disintegrat 00 daily as Medi michael ing tablet needed for e Nausea. ondansetron 2017-0 Yes [id number] 4mg Take 1 Tab [facility] (ZOFRAN-ODT 6-29 by mouth [facility] ) 4 mg 00:00: times of disintegrat 00 daily as Medi michael ing tablet needed for e Nausea. ondansetron 2017-0 Yes [id number] 4mg Take 1 Tab [facility] (ZOFRAN-ODT 6-29 by mouth [facility] [employer] [facility] ) 4 mg 00:00: times of disintegrat 00 daily as Medi michael ing tablet needed for e Nausea. ondansetron 2018-0 Yes [id number] 4mg Take 1 Tab [facility] (ZOFRAN-ODT 6-29 by mouth 2 [facility] ) 4 mg 00:00: times of disintegrat 00 daily as Medi michael ing tablet needed for e Nausea. ondansetron 2017-0 Yes [id number] 4mg Take 1 Tab [facility] (ZOFRAN-ODT 6-29 by mouth 2 [facility] ) 4 mg 00:00: times of disintegrat 00 daily as Medi michael ing tablet needed for e Nausea. ondansetron 2018-0 Yes [id number] 4mg Take 1 Tab [facility] (ZOFRAN-ODT 6-29 by mouth [facility] ) 4 mg 00:00: times of disintegrat 00 daily as Medi michael ing tablet needed for e Nausea. ondansetron 2018-0 Yes [id number] 4mg Take 1 Tab [facility] (ZOFRAN-ODT 6-29 by mouth [facility] [employer] [facility] ) 4 mg 00:00: times of disintegrat 00 daily as Medi michael ing tablet needed for e Nausea. ondansetron 2018-0 Yes [id number] 4mg Take 1 Tab [facility] (ZOFRAN-ODT 6-29 by mouth [facility] ) 4 mg 00:00: times of disintegrat 00 daily as Medi michael ing tablet needed for e Nausea. ondansetron 2018-0 Yes [id number] 4mg Take 1 Tab [facility] (ZOFRAN-ODT 6-29 by mouth [facility] ) 4 mg 00:00: times of disintegrat 00 daily as Medi michael ing tablet needed for e Nausea. SPIRIVA 2018-0 Yes [facility] [employer] 18 MCG 00:00: of inhalation 00 Medicin capsule e SPIRIVA 2018-0 Yes [facility]IHALER 5-04 [place] 18 MCG 00:00: of inhalation 00 Medicin capsule e SPIRIVA 2018-0 Yes [facility] 5-04 [place] 18 MCG 00:00: of inhalation 00 Medicin capsule e SPIRIVA 2018-0 Yes [facility] 5-04 [place] 18 MCG 00:00: of inhalation 00 Medicin capsule e SPIRIVA 2018-0 Yes [facility] 5-04 [employer] 18 MCG 00:00: of inhalation 00 Medicin capsule e SPIRIVA 2018-0 Yes [facility] 5[facility] [employer] 18 MCG 00:00: of inhalation 00 Medicin capsule e SPIRIVA 2018-0 Yes [facility] 5-04 [place] 18 MCG 00:00: of inhalation 00 Medicin capsule e SPIRIVA 2018-0 Yes [facility] 5-04 [place] 18 MCG 00:00: of inhalation 00 Medicin capsule e SPIRIVA 2018-0 Yes [facility] 5-04 [place] 18 MCG 00:00: of inhalation 00 Medicin capsule e SPIRIVA 2018-0 Yes [facility] 5-04 [employer] 18 MCG 00:00: of inhalation 00 Medicin capsule e SPIRIVA 2018-0 Yes [facility] 5-04 [employer] 18 MCG 00:00: of inhalation 00 Medicin capsule e SPIRIVA 2018-0 Yes [facility] 5-04 [employer] 18 MCG 00:00: of inhalation 00 Medicin capsule e SPIRIVA 2018-0 Yes [facility] 5-04 [employer] 18 MCG 00:00: of inhalation 00 Medicin capsule e levothyroxi 2018-0 Yes [facility] ne 5-04 [employer] (SYNTHROID) 00:00: of 200 MCG 00 Medicin tablet e SPIRIVA 2018-0 Yes [facility]IHALER 5-04 [place] 18 MCG 00:00: of inhalation 00 Medicin capsule e SPIRIVA 2018-0 Yes [facility] 5-04 [employer] 18 MCG 00:00: of inhalation 00 Medicin capsule e SPIRIVA 2018-0 Yes [facility] 5-04 [employer] 18 MCG 00:00: of inhalation 00 Medicin capsule e SPIRIVA 2018-0 Yes [facility] 5-04 [employer] 18 MCG 00:00: of inhalation 00 Medicin capsule e SPIRIVA 2018-0 Yes [facility] 5-04 [employer] 18 MCG 00:00: of inhalation 00 Medicin capsule e SPIRIVA 2018-0 Yes [facility] 5-04 [employer] 18 MCG 00:00: of inhalation 00 Medicin capsule e SPIRIVA 2018-0 Yes [facility] 5-04 [employer] 18 MCG 00:00: of inhalation 00 Medicin capsule e SPIRIVA 2018-0 Yes [facility] 5-04 [employer] 18 MCG 00:00: of inhalation 00 Medicin capsule e SPIRIVA 2018-0 Yes 18ug Inhale 18 [facility] [facility] 5-04 mcg by [employer] 18 MCG 00:00: mouth of inhalation 00 daily. Medicin capsule e levothyroxi 2018-0 Yes [facility] ne 5-04 [employer] (SYNTHROID) 00:00: of 200 MCG 00 Medicin tablet e SPIRIVA 2018-0 Yes [facility]ALER 5-04 [employer] 18 MCG 00:00: [...] daily. Medicin capsule e levothyroxi 2018-0 Yes [facility] ne 5-04 [employer] (SYNTHROID) 00:00: of 200 MCG 00 Medicin tablet e SPIRIVA 2018-0 Yes [facility]IHALER 5-04 [place] 18 MCG 00:00: of inhalation 00 Medicin [...] 18 [employer] [facility] 5-04 mcg by [place] 18 MCG 00:00: mouth of inhalation 00 daily. Medicin capsule e SPIRIVA 2018-0 Yes 18ug Inhale 18 [employer] [facility] 5-04 [facility] [employer] 18 MCG 00:00: mouth of inhalation 00 daily. Medicin capsule e SPIRIVA 2018-0 Yes 18ug Inhale 18 [employer] [facility]ER 5-04 mcg by [place] 18 MCG 00:00: mouth of inhalation 00 daily. Medicin capsule e levothyroxi 2018-0 Yes [facility] 5-04 [place] (SYNTHROID) 00:00: of 200 MCG 00 Medicin tablet e SPIRIVA 2018-0 Yes 18ug Inhale 18 [place] [employer] [facility] 5-04 mcg by [place] 18 MCG 00:00: mouth of inhalation 00 daily. Medicin capsule e SPIRIVA 2018-0 Yes [facility] HANDIHALER 5-04 [place] 18 MCG 00:00: of inhalation 00 Medicin capsule e SPIRIVA 2018-0 Yes 18ug Inhale 18 [employer] [facility] 5-04 mcg by [place] 18 MCG 00:00: mouth of inhalation 00 daily. Medicin capsule e SPIRIVA 2018-0 Yes 18ug Inhale 18 [place] [employer] [facility] 5-04 mcg by [place] 18 MCG 00:00: mouth of inhalation 00 daily. Medicin capsule e SPIRIVA 2018-0 Yes 18ug Inhale 18 [employer] [facility]ER 5-04 mcg by [place] 18 MCG 00:00: mouth of inhalation 00 daily. Medicin capsule e SPIRIVA 2018-0 Yes 18ug Inhale 18 [place] [place] [facility] 5-04 mcg by [place] 18 MCG 00:00: mouth of inhalation 00 daily. Medicin capsule e SPIRIVA 2018-0 Yes 18ug Inhale 18 [employer] [employer] [facility]ER 5-04 mcg by [place] 18 MCG 00:00: mouth of inhalation 00 daily. Medicin capsule e SPIRIVA 2018-0 Yes 18ug Inhale 18 [employer] [facility]ER 5-04 mcg by [place] 18 MCG 00:00: mouth of inhalation 00 daily. Medicin capsule e SPIRIVA 2018-0 Yes 18ug Inhale 18 [employer] [facility] 5-04 mcg by [place] 18 MCG 00:00: mouth of inhalation 00 daily. Medicin capsule e levothyroxi 2018-0 Yes [facility] 5-04 [employer] (SYNTHROID) 00:00: of 200 MCG 00 Medicin tablet e SPIRIVA 2018-0 Yes [facility] HANDIHALER 5-04 [place] 18 MCG 00:00: of inhalation 00 Medicin [...] 18 [employer] [facility] 5-04 mcg by [place] 18 MCG 00:00: mouth of inhalation 00 [...] 18 [employer] [facility] 5-04 mcg by [place] 18 MCG 00:00: mouth of inhalation 00 daily. Medicin capsule e levothyroxi 2018-0 Yes [facility] 5-04 [place] (SYNTHROID) 00:00: of 200 MCG 00 Medicin tablet e SPIRIVA 2018-0 Yes [facility]ALER 5-04 [place] 18 MCG 00:00: of inhalation 00 Medicin capsule e SPIRIVA 2018-0 Yes 18ug Inhale 18 [employer] [facility] 5-04 mcg by [employer] 18 MCG 00:00: mouth of inhalation 00 daily. Medicin capsule e SPIRIVA 2018-0 Yes 18ug Inhale 18 [employer] [facility] 5-04 mcg by [place] 18 MCG 00:00: mouth of inhalation 00 daily. Medicin capsule e levothyroxi 2018-0 Yes [facility] 5-04 [place] (SYNTHROID) 00:00: of 200 MCG 00 Medicin tablet e SPIRIVA 2018-0 Yes [facility]ALER 5-04 [employer] 18 MCG 00:00: of inhalation 00 Medicin capsule e levothyroxi 2018-0 Yes [facility] ne 5-04 [employer] (SYNTHROID) 00:00: of 200 MCG 00 Medicin tablet e SPIRIVA 2018-0 Yes [facility] 5-04 [employer] 18 MCG 00:00: of inhalation 00 Medicin capsule e levothyroxi 2018-0 Yes [facility] ne 5-04 [employer] (SYNTHROID) 00:00: of 200 MCG 00 Medicin tablet e SPIRIVA 2018-0 Yes [facility] 5-04 [employer] 18 MCG 00:00: of inhalation 00 Medicin capsule e SPIRIVA 2018-0 Yes [facility] 5-04 [employer] 18 MCG 00:00: of inhalation 00 Medicin capsule e SPIRIVA 2018-0 Yes [facility] 5-04 [employer] 18 MCG 00:00: of inhalation 00 Medicin capsule e SPIRIVA 2018-0 Yes [facility]ER 5-04 [employer] 18 MCG 00:00: of inhalation 00 Medicin capsule e SPIRIVA 2018-0 Yes [facility] 5-04 [employer] 18 MCG 00:00: of inhalation 00 Medicin capsule e SPIRIVA 2018-0 Yes [facility] 5-04 [employer] 18 MCG 00:00: of inhalation 00 Medicin capsule e SPIRIVA 2018-0 Yes [facility] 5-04 [employer] 18 MCG 00:00: of inhalation 00 Medicin capsule e SPIRIVA 2018-0 Yes [facility] 5-04 [employer] 18 MCG 00:00: of inhalation 00 Medicin capsule e SPIRIVA 2018-0 Yes [facility] 5-04 [employer] 18 MCG 00:00: of inhalation 00 Medicin capsule e SPIRIVA 2018-0 Yes [facility] 5-04 [employer] 18 MCG 00:00: of inhalation 00 Medicin capsule e SPIRIVA 2018-0 Yes [facility] 5[facility] [employer] 18 MCG 00:00: of inhalation 00 Medicin capsule e SPIRIVA 2018-0 Yes [facility] 5-04 [employer] 18 MCG 00:00: of inhalation 00 Medicin capsule e SPIRIVA 2018-0 2023- No 18ug Inhale 1 [place] [facility] 5-04 05-01 capsule by [facility] 18 MCG 00:00: 00:00 mouth of inhalation 00 :00 daily. Medicin capsule e levothyroxi 2017- 2021- No [facility] mayra cooney 5-04 03-05 [place] (SYNTHROID) 00:00: 00:00 of 200 MCG 00 :00 Medicin tablet e Cholecalcif 2017- Yes [id number] 1000U Take 1,000 [facility] miguel (D3 2-18 Units by [employer] ADULT) 1000 00:00: mouth of UNITS CHEW 00 daily. Medicin e Cholecalcif 2017-0 Yes [id number] 1000U Take 1,000 [facility] miguel (D3 2-18 Units by [employer] ADULT) 1000 00:00: mouth of UNITS CHEW 00 daily. Medicin e Zinc 50 MG 2018-0 Yes [id number] 50mg Take 50 mg [facility] CAPS 2-18 by mouth [place] 00:00: daily. of 00 Medicin e Zinc 50 MG 2018-0 Yes [id number] 50mg Take 50 mg [facility] CAPS 2-18 by mouth [place] 00:00: daily. of 00 Medicin e Cholecalcif 2017- Yes [id number] 1000U Take 1,000 [facility] (D3 2-18 Units by [employer] ADULT) 1000 00:00: mouth of UNITS CHEW 00 daily. Medicin e Zinc 50 MG 2018-0 Yes [id number] 50mg Take 50 mg [facility] CAPS 2-18 by mouth [place] 00:00: daily. of 00 Medicin e Cholecalcif 2017-0 Yes [id number] 1000U Take 1,000 [facility] (D3 2-18 Units by [employer] ADULT) 1000 00:00: mouth of UNITS CHEW 00 daily. Medicin e Zinc 50 MG 2018-0 Yes [id number] 50mg Take 50 mg [facility] CAPS 2-18 by mouth [place] 00:00: daily. of 00 Medicin e Cholecalcif 2018-0 Yes [id number] 1000U Take 1,000 [facility] miguel (D3 2-18 Units by [employer] ADULT) 1000 00:00: mouth of UNITS CHEW 00 daily. Medicin e Zinc 50 MG 2018-0 Yes [id number] 50mg Take 50 mg [facility] CAPS 2-18 by mouth [place] 00:00: daily. of 00 Medicin e Cholecalcif 2018-0 Yes [id number] 1000U Take 1,000 [facility]uel (D3 2-18 Units by [employer] ADULT) 1000 00:00: mouth of UNITS CHEW 00 daily. Medicin e Zinc 50 MG 2018-0 Yes [id number] 50mg Take 50 mg [facility] CAPS 2-18 by mouth [place] 00:00: daily. of Medicin e Cholecalcif 2018-0 Yes [id number] 1000U Take 1,000 [facility]uel (D3 2-18 Units by [employer] ADULT) 1000 00:00: mouth of UNITS CHEW 00 daily. Medicin e Zinc 50 MG 2018-0 Yes [id number] 50mg Take 50 mg [facility] CAPS 2-18 by mouth [place] 00:00: daily. of Medicin e Cholecalcif Yes [id number] 1000U Take 1,000 [facility] (D3 2-18 Units by [employer] ADULT) 1000 00:00: mouth of UNITS CHEW 00 daily. Medicin e Zinc 50 MG 2018-0 Yes [id number] 50mg Take 50 mg [facility] CAPS 2-18 by mouth [place] 00:00: daily. of Medicin e Cholecalcif 2017- Yes [id number] 1000U Take 1,000 [facility]uel (D3 2-18 Units by [employer] ADULT) 1000 00:00: mouth of UNITS CHEW 00 daily. Medicin e Zinc 50 MG 2018-0 Yes [id number] 50mg Take 50 mg [facility] CAPS 2-18 by mouth [place] 00:00: daily. of Medicin e Cholecalcif 2017-0 Yes [id number] 1000U Take 1,000 [facility] (D3 2-18 Units by [employer] ADULT) 1000 00:00: mouth of UNITS CHEW 00 daily. Medicin e Zinc 50 MG 2018-0 Yes [id number] 50mg Take 50 mg [facility] CAPS 2-18 by mouth [place] 00:00: daily. of Medicin e Cholecalcif 2018-0 Yes [id number] 1000U Take 1,000 [facility] (D3 2-18 Units by [employer] ADULT) 1000 00:00: mouth of UNITS CHEW 00 daily. Medicin e Zinc 50 MG 2018-0 Yes [id number] 50mg Take 50 mg [facility] CAPS 2-18 by mouth [place] 00:00: daily. of 00 Medicin e Cholecalcif 2018-0 Yes [id number] 1000U Take 1,000 [facility] miguel (D3 2-18 Units by [employer] ADULT) 1000 00:00: mouth of UNITS CHEW 00 daily. Medicin e Zinc 50 MG 2018-0 Yes [id number] 50mg Take 50 mg [facility] CAPS 2-18 by mouth [place] 00:00: daily. of 00 Medicin e Cholecalcif 2018-0 Yes [id number] 1000U Take 1,000 [facility]uel (D3 2-18 Units by [employer] ADULT) 1000 00:00: mouth of UNITS CHEW 00 daily. Medicin e Zinc 50 MG 2018-0 Yes [id number] 50mg Take 50 mg [facility] CAPS 2-18 by mouth [place] 00:00: daily. of 00 Medicin e Cholecalcif 2018-0 Yes [id number] 1000U Take 1,000 [facility] (D3 2-18 Units by [employer] ADULT) 1000 00:00: mouth of UNITS CHEW 00 daily. Medicin e Zinc 50 MG 2018-0 Yes [id number] 50mg Take 50 mg [facility] CAPS 2-18 by mouth [place] 00:00: daily. of Medicin e Cholecalcif 2018-0 Yes [id number] 1000U Take 1,000 [facility] (D3 2-18 Units by [employer] ADULT) 1000 00:00: mouth of UNITS CHEW 00 daily. Medicin e Zinc 50 MG 2018-0 Yes [id number] 50mg Take 50 mg [facility] CAPS 2-18 by mouth [place] 00:00: daily. of 00 Medicin e Cholecalcif 2018-0 Yes [id number] 1000U Take 1,000 [facility] (D3 2-18 Units by [employer] ADULT) 1000 00:00: mouth of UNITS CHEW 00 daily. Medicin e Zinc 50 MG 2018-0 Yes [id number] 50mg Take 50 mg [facility] CAPS 2-18 by mouth [place] 00:00: daily. of 00 Medicin e Cholecalcif 2018-0 Yes [id number] 1000U Take 1,000 [facility] (D3 2-18 Units by [employer] ADULT) 1000 00:00: mouth of UNITS CHEW 00 daily. Medicin e Zinc 50 MG 2018-0 Yes [id number] 50mg Take 50 mg [facility] CAPS 2-18 by mouth [place] 00:00: daily. of 00 Medicin e Cholecalcif 2018-0 Yes [id number] 1000U Take 1,000 [facility] (D3 2-18 Units by [employer] ADULT) 1000 00:00: mouth of UNITS CHEW 00 daily. Medicin e Zinc 50 MG 2018-0 Yes [id number] 50mg Take 50 mg [facility] CAPS 2-18 by mouth [place] 00:00: daily. of 00 Medicin e Cholecalcif 2018-0 Yes [id number] 1000U Take 1,000 [facility] (D3 2-18 Units by [employer] ADULT) 1000 00:00: mouth of UNITS CHEW 00 daily. Medicin e Zinc 50 MG 2018-0 Yes [id number] 50mg Take 50 mg [facility] CAPS 2-18 by mouth [place] 00:00: daily. of Medicin e Cholecalcif 2018-0 Yes [id number] 1000U Take 1,000 [facility] (D3 2-18 Units by [employer] ADULT) 1000 00:00: mouth of UNITS CHEW 00 daily. Medicin e Zinc 50 MG 2018-0 Yes [id number] 50mg Take 50 mg [facility] CAPS 2-18 by mouth [place] 00:00: daily. of Medicin e Cholecalcif 2018-0 Yes [id number] 1000U Take 1,000 [facility] (D3 2-18 Units by [employer] ADULT) 1000 00:00: mouth of UNITS CHEW 00 daily. Medicin e Zinc 50 MG 2018-0 Yes [id number] 50mg Take 50 mg [facility] CAPS 2-18 by mouth [place] 00:00: daily. of Medicin e Cholecalcif 2018-0 Yes [id number] 1000U Take 1,000 [facility] (D3 2-18 Units by [employer] ADULT) 1000 00:00: mouth of UNITS CHEW 00 daily. Medicin e Zinc 50 MG 2018-0 Yes [id number] 50mg Take 50 mg [facility] CAPS 2-18 by mouth [place] 00:00: daily. of Medicin e Cholecalcif 2018-0 Yes [id number] 1000U Take 1,000 [facility] (D3 2-18 Units by [employer] ADULT) 1000 00:00: mouth of UNITS CHEW 00 daily. Medicin e Zinc 50 MG 2018-0 Yes [id number] 50mg Take 50 mg [facility] CAPS 2-18 by mouth [place] 00:00: daily. of 00 Medicin e Cholecalcif 2018-0 Yes [id number] 1000U Take 1,000 [facility] (D3 2-18 Units by [employer] ADULT) 1000 00:00: mouth of UNITS CHEW 00 daily. Medicin e Zinc 50 MG 2018-0 Yes [id number] 50mg Take 50 mg [facility] CAPS 2-18 by mouth [place] 00:00: daily. of 00 Medicin e Cholecalcif 2018-0 Yes [id number] 1000U Take 1,000 [facility] (D3 2-18 Units by [employer] ADULT) 1000 00:00: mouth of UNITS CHEW 00 daily. Medicin e Zinc 50 MG 2018-0 Yes [id number] 50mg Take 50 mg [facility] CAPS 2-18 by mouth [place] 00:00: daily. of 00 Medicin e Cholecalcif 2018-0 Yes [id number] 1000U Take 1,000 [facility] (D3 2-18 Units by [employer] ADULT) 1000 00:00: mouth of UNITS CHEW 00 daily. Medicin e Zinc 50 MG 2018-0 Yes [id number] 50mg Take 50 mg [facility] CAPS 2-18 by mouth [place] 00:00: daily. of 00 Medicin e Cholecalcif 2018-0 Yes [id number] 1000U Take 1,000 [facility] (D3 2-18 Units by [employer] ADULT) 1000 00:00: mouth of UNITS CHEW 00 daily. Medicin e Zinc 50 MG 2018-0 Yes [id number] 50mg Take 50 mg [facility] CAPS 2-18 by mouth [place] 00:00: daily. of Medicin e Cholecalcif 2018-0 Yes [id number] 1000U Take 1,000 [facility] miguel (D3 2-18 Units by [facility] ADULT) 1000 00:00: mouth of UNITS CHEW 00 daily. Medicin e Zinc 50 MG 2018-0 Yes [id number] 50mg Take 50 mg [facility] CAPS 2-18 by mouth [place] 00:00: daily. of 00 Medicin e Cholecalcif 2018-0 Yes [id number] 1000U Take 1,000 [facility] miguel (D3 2-18 Units by [facility] ADULT) 1000 00:00: mouth of UNITS CHEW 00 daily. Medicin e Zinc 50 MG 2018-0 Yes [id number] 50mg Take 50 mg [facility] CAPS 2-18 by mouth [place] 00:00: daily. of 00 Medicin e Cholecalcif 2018-0 Yes [id number] 1000U Take 1,000 [facility] miguel (D3 2-18 Units by [facility] ADULT) 1000 00:00: mouth of UNITS CHEW 00 daily. Medicin e Zinc 50 MG 2018-0 Yes [id number] 50mg Take 50 mg [facility] CAPS 2-18 by mouth [place] 00:00: daily. of 00 Medicin e Cholecalcif 2018-0 Yes [id number] 1000U Take 1,000 [facility] miguel (D3 2-18 Units by [facility] ADULT) 1000 00:00: mouth of UNITS CHEW 00 daily. Medicin e Zinc 50 MG 2018-0 Yes [id number] 50mg Take 50 mg [facility] CAPS 2-18 by mouth [place] 00:00: daily. of Medicin e Cholecalcif 2018-0 Yes [id number] 1000U Take 1,000 [facility] miguel (D3 2-18 Units by [facility] ADULT) 1000 00:00: mouth of UNITS CHEW 00 daily. Medicin e Zinc 50 MG 2018-0 Yes [id number] 50mg Take 50 mg [facility] CAPS 2-18 by mouth [place] 00:00: daily. of Medicin e Cholecalcif Yes [id number] 1000U Take 1,000 [facility] miguel (D3 2-18 Units by [facility] ADULT) 1000 00:00: mouth of UNITS CHEW 00 daily. Medicin e Zinc 50 MG 2018-0 Yes [id number] 50mg Take 50 mg [facility] CAPS 2-18 by mouth [place] 00:00: daily. of Medicin e Cholecalcif 2017- Yes [id number] 1000U Take 1,000 [facility] (D3 2-18 Units by [facility] ADULT) 1000 00:00: mouth of UNITS CHEW 00 daily. Medicin e Zinc 50 MG 2018-0 Yes [id number] 50mg Take 50 mg [facility] CAPS 2-18 by mouth [place] 00:00: daily. of Medicin e Cholecalcif 2017-0 Yes [id number] 1000U Take 1,000 [facility] miguel (D3 2-18 Units by [facility] ADULT) 1000 00:00: mouth of UNITS CHEW 00 daily. Medicin e Zinc 50 MG 2018-0 Yes [id number] 50mg Take 50 mg [facility] CAPS 2-18 by mouth [place] 00:00: daily. of Medicin e Cholecalcif 2018-0 Yes [id number] 1000U Take 1,000 [facility] miguel (D3 2-18 Units by [facility] ADULT) 1000 00:00: mouth of UNITS CHEW 00 daily. Medicin e Zinc 50 MG 2018-0 Yes [id number] 50mg Take 50 mg [facility] CAPS 2-18 by mouth [place] 00:00: daily. of 00 Medicin e Cholecalcif 2018-0 Yes [id number] 1000U Take 1,000 [facility] (D3 2-18 Units by [facility] ADULT) 1000 00:00: mouth of UNITS CHEW 00 daily. Medicin e Zinc 50 MG 2018-0 Yes [id number] 50mg Take 50 mg [facility] CAPS 2-18 by mouth [place] 00:00: daily. of 00 Medicin e Cholecalcif 2018-0 Yes [id number] 1000U Take 1,000 [facility] (D3 2-18 Units by [facility] ADULT) 1000 00:00: mouth of UNITS CHEW 00 daily. Medicin e Zinc 50 MG 2018-0 Yes [id number] 50mg Take 50 mg [facility] CAPS 2-18 by mouth [place] 00:00: daily. of 00 Medicin e Cholecalcif 2018-0 Yes [id number] 1000U Take 1,000 [facility] (D3 2-18 Units by [facility] ADULT) 1000 00:00: mouth of UNITS CHEW 00 daily. Medicin e Zinc 50 MG 2018-0 Yes [id number] 50mg Take 50 mg [facility] CAPS 2-18 by mouth [place] 00:00: daily. of Medicin e Cholecalcif 2018-0 Yes [id number] 1000U Take 1,000 [facility] (D3 2-18 Units by [facility] ADULT) 1000 00:00: mouth of UNITS CHEW 00 daily. Medicin e Zinc 50 MG 2018-0 Yes [id number] 50mg Take 50 mg [facility] CAPS 2-18 by mouth [place] 00:00: daily. of 00 Medicin e Cholecalcif 2018-0 Yes [id number] 1000U Take 1,000 [facility] (D3 2-18 Units by [facility] ADULT) 1000 00:00: mouth of UNITS CHEW 00 daily. Medicin e Zinc 50 MG 2018-0 Yes [id number] 50mg Take 50 mg [facility] CAPS 2-18 by mouth [place] 00:00: daily. of 00 Medicin e Cholecalcif 2018-0 Yes [id number] 1000U Take 1,000 [facility] (D3 2-18 Units by [facility] ADULT) 1000 00:00: mouth of UNITS CHEW 00 daily. Medicin e Zinc 50 MG 2018-0 Yes [id number] 50mg Take 50 mg [facility] CAPS 2-18 by mouth [place] 00:00: daily. of 00 Medicin e Cholecalcif 2018-0 Yes [id number] 1000U Take 1,000 [facility] miguel (D3 2-18 Units by [facility] ADULT) 1000 00:00: mouth of UNITS CHEW 00 daily. Medicin e Zinc 50 MG 2018-0 Yes [id number] 50mg Take 50 mg [facility] CAPS 2-18 by mouth [place] 00:00: daily. of 00 Medicin e Cholecalcif 2018-0 Yes [id number] 1000U Take 1,000 [facility] miguel (D3 2-18 Units by [facility] ADULT) 1000 00:00: mouth of UNITS CHEW 00 daily. Medicin e Zinc 50 MG 2018-0 Yes [id number] 50mg Take 50 mg [facility] CAPS 2-18 by mouth [place] 00:00: daily. of Medicin e Cholecalcif 2018-0 Yes [id number] 1000U Take 1,000 [facility] (D3 2-18 Units by [facility] ADULT) 1000 00:00: mouth of UNITS CHEW 00 daily. Medicin e Zinc 50 MG 2018-0 Yes [id number] 50mg Take 50 mg [facility] CAPS 2-18 by mouth [place] 00:00: daily. of Medicin e Cholecalcif 2017- Yes [id number] 1000U Take 1,000 [facility] (D3 2-18 Units by [facility] ADULT) 1000 00:00: mouth of UNITS CHEW 00 daily. Medicin e Zinc 50 MG 2018-0 Yes [id number] 50mg Take 50 mg [facility] CAPS 2-18 by mouth [place] 00:00: daily. of Medicin e Cholecalcif 2017-0 Yes [id number] 1000U Take 1,000 [facility] miguel (D3 2-18 Units by [facility] ADULT) 1000 00:00: mouth of UNITS CHEW 00 daily. Medicin e Cholecalcif 2017-0 Yes [id number] 1000U Take 1,000 [facility] miguel (D3 2-18 Units by [facility] ADULT) 1000 00:00: mouth of UNITS CHEW 00 daily. Medicin e Zinc 50 MG 2018-0 Yes [id number] 50mg Take 50 mg [facility] CAPS 2-18 by mouth [place] 00:00: daily. of Medicin e Zinc 50 MG 2018-0 Yes [id number] 50mg Take 50 mg [facility] CAPS 2-18 by mouth [place] 00:00: daily. of 00 Medicin e Cholecalcif 2018-0 Yes [id number] 1000U Take 1,000 [facility] (D3 2-18 Units by [facility] ADULT) 1000 00:00: mouth of UNITS CHEW 00 daily. Medicin e Zinc 50 MG 2018-0 Yes [id number] 50mg Take 50 mg [facility] CAPS 2-18 by mouth [place] 00:00: daily. of 00 Medicin e Cholecalcif 2018-0 Yes [id number] 1000U Take 1,000 [facility] miguel (D3 2-18 Units by [facility] ADULT) 1000 00:00: mouth of UNITS CHEW 00 daily. Medicin e Zinc 50 MG 2018-0 Yes [id number] 50mg Take 50 mg [facility] CAPS 2-18 by mouth [place] 00:00: daily. of 00 Medicin e Cholecalcif 2018-0 Yes [id number] 1000U Take 1,000 [facility] (D3 2-18 Units by [facility] ADULT) 1000 00:00: mouth of UNITS CHEW 00 daily. Medicin e Zinc 50 MG 2018-0 Yes [id number] 50mg Take 50 mg [facility] CAPS 2-18 by mouth [place] 00:00: daily. of 00 Medicin e Cholecalcif 2018-0 Yes [id number] 1000U Take 1,000 [facility] (D3 2-18 Units by [facility] ADULT) 1000 00:00: mouth of UNITS CHEW 00 daily. Medicin e Zinc 50 MG 2018-0 Yes [id number] 50mg Take 50 mg [facility] CAPS 2-18 by mouth [place] 00:00: daily. of Medicin e Cholecalcif 2018-0 Yes [id number] 1000U Take 1,000 [facility] miguel (D3 2-18 Units by [facility] ADULT) 1000 00:00: mouth of UNITS CHEW 00 daily. Medicin e Zinc 50 MG 2018-0 Yes [id number] 50mg Take 50 mg [facility] CAPS 2-18 by mouth [place] 00:00: daily. of 00 Medicin e Cholecalcif 2018-0 Yes [id number] 1000U Take 1,000 [facility] (D3 2-18 Units by [employer] ADULT) 1000 00:00: mouth of UNITS CHEW 00 daily. Medicin e Zinc 50 MG 2018-0 Yes [id number] 50mg Take 50 mg [facility] CAPS 2-18 by mouth [place] 00:00: daily. of 00 Medicin e Cholecalcif 2018-0 Yes [id number] 1000U Take 1,000 [facility] (D3 2-18 Units by [facility] ADULT) 1000 00:00: mouth of UNITS CHEW 00 daily. Medicin e Zinc 50 MG 2018-0 Yes [id number] 50mg Take 50 mg [facility] CAPS 2-18 by mouth [place] 00:00: daily. of 00 Medicin e Cholecalcif 2018-0 Yes [id number] 1000U Take 1,000 [facility] (D3 2-18 Units by [facility] ADULT) 1000 00:00: mouth of UNITS CHEW 00 daily. Medicin e Zinc 50 MG 2018-0 Yes [id number] 50mg Take 50 mg [facility] CAPS 2-18 by mouth [place] 00:00: daily. of Medicin e Cholecalcif 2018-0 Yes [id number] 1000U Take 1,000 [facility] miguel (D3 2-18 Units by [facility] ADULT) 1000 00:00: mouth of UNITS CHEW 00 daily. Medicin e Zinc 50 MG 2018-0 Yes [id number] 50mg Take 50 mg [facility] CAPS 2-18 by mouth [place] 00:00: daily. of Medicin e Cholecalcif Yes [id number] 1000U Take 1,000 [facility] miguel (D3 2-18 Units by [facility] ADULT) 1000 00:00: mouth of UNITS CHEW 00 daily. Medicin e Zinc 50 MG 2018-0 Yes [id number] 50mg Take 50 mg [facility] CAPS 2-18 by mouth [place] 00:00: daily. of Medicin e Cholecalcif 2017- Yes [id number] 1000U Take 1,000 [facility] miguel (D3 2-18 Units by [facility] ADULT) 1000 00:00: mouth of UNITS CHEW 00 daily. Medicin e Zinc 50 MG 2018-0 Yes [id number] 50mg Take 50 mg [facility] CAPS 2-18 by mouth [place] 00:00: daily. of Medicin e Cholecalcif 2017-0 Yes [id number] 1000U Take 1,000 [facility] (D3 2-18 Units by [facility] ADULT) 1000 00:00: mouth of UNITS CHEW 00 daily. Medicin e Zinc 50 MG 2018-0 Yes [id number] 50mg Take 50 mg [facility] CAPS 2-18 by mouth [place] 00:00: daily. of Medicin e Cholecalcif 2018-0 Yes [id number] 1000U Take 1,000 [facility] (D3 2-18 Units by [facility] ADULT) 1000 00:00: mouth of UNITS CHEW 00 daily. Medicin e Zinc 50 MG 2018-0 Yes [id number] 50mg Take 50 mg [facility] CAPS 2-18 by mouth [place] 00:00: daily. of 00 Medicin e Cholecalcif 2018-0 Yes [id number] 1000U Take 1,000 [facility] (D3 2-18 Units by [facility] ADULT) 1000 00:00: mouth of UNITS CHEW 00 daily. Medicin e Zinc 50 MG 2018-0 Yes [id number] 50mg Take 50 mg [facility] CAPS 2-18 by mouth [place] 00:00: daily. of 00 Medicin e Cholecalcif 2018-0 Yes [id number] 1000U Take 1,000 [facility] miguel (D3 2-18 Units by [facility] ADULT) 1000 00:00: mouth of UNITS CHEW 00 daily. Medicin e Zinc 50 MG 2018-0 Yes [id number] 50mg Take 50 mg [facility] CAPS 2-18 by mouth [place] 00:00: daily. of 00 Medicin e Cholecalcif 2018-0 Yes [id number] 1000U Take 1,000 [facility] miguel (D3 2-18 Units by [facility] ADULT) 1000 00:00: mouth of UNITS CHEW 00 daily. Medicin e Zinc 50 MG 2018-0 Yes [id number] 50mg Take 50 mg [facility] CAPS 2-18 by mouth [place] 00:00: daily. of Medicin e Cholecalcif 2018-0 Yes [id number] 1000U Take 1,000 [facility] (D3 2-18 Units by [facility] ADULT) 1000 00:00: mouth of UNITS CHEW 00 daily. Medicin e Zinc 50 MG 2018-0 Yes [id number] 50mg Take 50 mg [facility] CAPS 2-18 by mouth [place] 00:00: daily. of 00 Medicin e Cholecalcif 2018-0 Yes [id number] 1000U Take 1,000 [facility] (D3 2-18 Units by [facility] ADULT) 1000 00:00: mouth of UNITS CHEW 00 daily. Medicin e Zinc 50 MG 2018-0 Yes [id number] 50mg Take 50 mg [facility] CAPS 2-18 by mouth [place] 00:00: daily. of 00 Medicin e Cholecalcif 2018-0 Yes [id number] 1000U Take 1,000 [facility] mgi[facility] (D3 2-18 Units by [facility] ADULT) 1000 00:00: mouth of UNITS CHEW 00 daily. Medicin e Zinc 50 MG 2018-0 Yes [id number] 50mg Take 50 mg [facility] CAPS 2-18 by mouth [place] 00:00: daily. of 00 Medicin e Cholecalcif 2018-0 Yes [id number] 1000U Take 1,000 [facility] (D3 2-18 Units by [facility] ADULT) 1000 00:00: mouth of UNITS CHEW 00 daily. Medicin e Zinc 50 MG 2018-0 Yes [id number] 50mg Take 50 mg [facility] CAPS 2-18 by mouth [place] 00:00: daily. of 00 Medicin e Cholecalcif 2018-0 Yes [id number] 1000U Take 1,000 [facility] miguel (D3 2-18 Units by [facility] ADULT) 1000 00:00: mouth of UNITS CHEW 00 daily. Medicin e Zinc 50 MG 2018-0 Yes [id number] 50mg Take 50 mg [facility] CAPS 2-18 by mouth [place] 00:00: daily. of Medicin e Cholecalcif 2018- Yes [id number] 1000U Take 1,000 [facility] miguel (D3 2-18 Units by [facility] ADULT) 1000 00:00: mouth of UNITS CHEW 00 daily. Medicin e Zinc 50 MG 2018-0 Yes [id number] 50mg Take 50 mg [facility] CAPS 2-18 by mouth [facility] 00:00: daily. of Medicin e Cholecalcif Yes [id number] 1000U Take 1,000 [facility] miguel (D3 2-18 Units by [facility] ADULT) 1000 00:00: mouth of UNITS CHEW 00 daily. Medicin e Zinc 50 MG 2018-0 Yes [id number] 50mg Take 50 mg [facility] CAPS 2-18 by mouth [place] 00:00: daily. of Medicin e Cholecalcif Yes [id number] 1000U Take 1,000 [facility] (D3 2-18 Units by [facility] ADULT) 1000 00:00: mouth of UNITS CHEW 00 daily. Medicin e Zinc 50 MG 2018-0 Yes [id number] 50mg Take 50 mg [facility] CAPS 2-18 by mouth [place] 00:00: daily. of Medicin e Cholecalcif 2017- Yes [id number] 1000U Take 1,000 [facility] miguel (D3 2-18 Units by [facility] ADULT) 1000 00:00: mouth of UNITS CHEW 00 daily. Medicin e Zinc 50 MG 2018-0 Yes [id number] 50mg Take 50 mg [facility] CAPS 2-18 by mouth [place] 00:00: daily. of 00 Medicin e pantoprazol 2016-04 Yes 40mg Take 1 Tab [facility] e 1-11 by mouth [place] (PROTONIX) 00:00: daily. of 40 MG 00 Medicin tablet e pantoprazol 2016-04 2020- No 40mg Take 1 Tab [facility] e 1-11 05-01 by mouth [place] (PROTONIX) 00:00: 00:00 daily. of 40 MG 00 :00 Medicin tablet e gabapentin Yes 100mg Take 1 Cap [facility] (NEURONTIN) [...] (two) [place] capsule 00 times Medical daily. [place] PREMARIN 2014-04 Yes Univers 1.25 mg 0-27 ity of tablet 00:00: 00 [facility] PREMARIN 2014-04 Yes Univers 1.25 mg 0-27 ity of tablet 00:00: [facility] PREMARIN 2014-04 Yes Univers 1.25 mg 0-27 ity of tablet 00:00: [facility] PREMARIN 2014-04 Yes Univers 1.25 mg 0-27 ity of tablet 00:00: [place] 00 [facility] PREMARIN 2014-04 Yes Univers 1.25 mg 0-27 ity of tablet 00:00: [place] 00 [facility] PREMARIN 2014-04 Yes Univers 1.25 mg 0-27 ity of tablet 00:00: [place] [facility] PREMARIN 2014-04 Yes Univers 1.25 mg 0-27 ity of tablet 00:00: [place] [facility] PREMARIN 2014-04 Yes Univers 1.25 mg 0-27 ity of tablet 00:00: [place] [facility] PREMARIN 2014-04 Yes Univers 1.25 mg 0-27 ity of tablet 00:00: [place] [facility] PREMARIN 2014-04 Yes Univers 1.25 mg 0-27 ity of tablet 00:00: [place] [facility] SPIRIVA 2014-04 Yes Univers WITH [...] ity of mg tablet 00:00: [place] 00 [facility] clopidogrel 2014-04 Yes Univer s (PLAVIX) 75 0-12 ity of mg tablet 00:00: [place] 00 [facility] carvedilol 2014-04 Yes Univers (COREG) 25 0-12 ity of mg tablet 00:00: [place] 00 [facility] clopidogrel 2014-04 Yes Univer s (PLAVIX) 75 0-12 ity of mg tablet 00:00: [place] [facility] carvedilol 2014-04 Yes Univers (COREG) 25 0-12 ity of mg tablet 00:00: [place] 00 [facility] clopidogrel 2014-04 Yes Univer s (PLAVIX) 75 0-12 ity of mg tablet 00:00: [place] [facility] carvedilol 2014-04 Yes Univers (COREG) 25 0-12 ity of mg tablet 00:00: [place] [facility] clopidogrel 2014-04 Yes Univer s (PLAVIX) 75 0-12 ity of mg tablet 00:00: [place] [facility] carvedilol 2014-04 Yes Univers (COREG) 25 0-12 ity of mg tablet 00:00: [place] [facility] clopidogrel 2014-04 Yes Univer s (PLAVIX) 75 0-12 ity of mg tablet 00:00: [place] [facility] carvedilol 2014-04 Yes Univers (COREG) 25 0-12 ity of mg tablet 00:00: [place] [facility] clopidogrel 2014-04 Yes Univer s (PLAVIX) 75 0-12 ity of mg tablet 00:00: [place] 00 [facility] carvedilol 2014-04 Yes Univers (COREG) 25 0-12 ity of mg tablet 00:00: [place] 00 [facility] clopidogrel 2014-04 Yes Univer s (PLAVIX) 75 0-12 ity of mg tablet 00:00: [place] 00 [facility] carvedilol 2014-04 Yes Univers (COREG) 25 0-12 ity of mg tablet 00:00: [place] 00 [facility] clopidogrel 2014-04 Yes Univer s (PLAVIX) 75 0-12 ity of mg tablet 00:00: [place] 00 [facility] carvedilol 2014-04 Yes Univers (COREG) 25 0-12 ity of mg tablet 00:00: [place] 00 [facility] clopidogrel 2014-04 Yes Univer s (PLAVIX) 75 0-12 ity of mg tablet 00:00: [place] [facility] carvedilol 2014-04 Yes Univers (COREG) 25 0-12 ity of mg tablet 00:00: [place] [facility] PROAIR HFA 2014-04 Yes Univers [...] 00:00: [place] on inhaler [facility] PROAIR A 2014-04 Yes Univers 90 0-01 ity of [...] mg 00:00: [place] tablet [facility] lovastatin Yes Univers (MEVACOR) 12-03 ity of 40 mg 00:00: [place] tablet [facility] lovastatin Yes Univers (MEVACOR) 12-03 ity of 40 mg 00:00: [place] tablet [facility] lovastatin Yes Univers (MEVACOR) 12-03 ity of 40 mg 00:00: [place] tablet 00 [facility] lovastatin Yes Univers (MEVACOR) 12-03 ity of 40 mg 00:00: [place] tablet 00 [facility] lovastatin Yes Univers (MEVACOR) 12-03 ity of 40 mg 00:00: [place] tablet 00 [facility] lovastatin Yes Univers (MEVACOR) 12-03 ity of 40 mg 00:00: [place] tablet 00 [facility] lovastatin Yes Univers (MEVACOR) 12-03 ity of 40 mg 00:00: [place] tablet 00 [facility] lovastatin Yes Univers (MEVACOR) 12-03 ity of 40 mg 00:00: [place] tablet 00 [facility] lovastatin Yes Univers (MEVACOR) 12-03 ity of 40 mg 00:00: [place] tablet 00 [facility] Immunizations Ordered Immunization Filled Immunization Date Status Commen ts Source Name Name Influenza Quad-PF 2021-11-24 Completed [facility] 00:00:00 of Medicine Influenza Quad-PF 2021-11-24 Completed [facility] 00:00:00 of Medicine Influenza Quad-PF 2021-11-24 Completed [facility] 00:00:00 of Medicine Influenza Quad-PF 2021-11-24 Completed [facility] 00:00:00 of Medicine Influenza Quad-PF 2021-11-24 Completed [facility] 00:00:00 of Medicine Pneumococcal 2021-05-26 Completed [place] [facility] Polysaccharide, 00:00:00 [place] [facility] PPSV23 (PNEUMOVAX) Branch Pneumococcal 2021-05-26 Completed [facility] Polysaccharide, 00:00:00 [place] [facility] PPSV23 (PNEUMOVAX) Branch Pneumococcal 2021-05-26 Completed [facility] Polysaccharide 00:00:00 of Medicin e Pneumococcal 2021-05-26 Completed [facility] Polysaccharide 00:00:00 of Medicin e Pneumococcal 2021-05-26 Completed [facility] Polysaccharide 00:00:00 of Medicin e Pneumococcal 2021-05-26 Completed [facility] Polysaccharide 00:00:00 of Medicin e Pneumococcal 2021-05-26 Completed [facility] Polysaccharide 00:00:00 of Medicin e Pneumococcal 2021-05-26 Completed [facility] Polysaccharide 00:00:00 of Medicin e Pneumococcal 2021-05-26 Completed [facility] Colle ge Polysaccharide 00:00:00 of Medicin [...] 00:00:00 of Medicin e Pneumococcal 2021-05-26 Completed [facility] Polysaccharide 00:00:00 of Medicin e Pneumococcal 2021-05-26 Completed [facility] Polysaccharide 00:00:00 of Medicin e Pneumococcal 2021-05-26 Completed [facility] Polysaccharide 00:00:00 of Medicin e Pneumococcal 2021-05-26 Completed [facility] Polysaccharide 00:00:00 of Medicin e Pneumococcal 2021-05-26 Completed [facility] Polysaccharide 00:00:00 of Medicin e Pneumococcal 2021-05-26 Completed [facility] Polysaccharide 00:00:00 of Medicin e Pneumococcal 2021-05-26 Completed [facility] Polysaccharide 00:00:00 of Medicin e Pneumococcal 2021-05-26 Completed [facility] Polysaccharide 00:00:00 of Medicin e Pneumococcal 2021-05-26 Completed [facility] Polysaccharide 00:00:00 of Medicin e Pneumococcal 2021-05-26 Completed [facility] Polysaccharide 00:00:00 of Medicin e Pneumococcal 2021-05-26 Completed [facility] Polysaccharide 00:00:00 of Medicin e Pneumococcal 2021-05-26 Completed [facility] Polysaccharide 00:00:00 of Medicin e Pneumococcal 2021-05-26 Completed [facility] Polysaccharide 00:00:00 of Medicin e Pneumococcal 2021-05-26 Completed [facility] Polysaccharide 00:00:00 of Medicin e Pneumococcal 2021-05-26 Completed [facility] Polysaccharide 00:00:00 of Medicin e Pneumococcal 2021-05-26 Completed [facility] Polysaccharide 00:00:00 of Medicin e Pneumococcal 2021-05-26 Completed [facility] Polysaccharide 00:00:00 of Medicin e Pneumococcal 2021-05-26 Completed [facility] Polysaccharide 00:00:00 of Medicin e Pneumococcal 2021-05-26 Completed [facility] Polysaccharide 00:00:00 of Medicin e Pneumococcal 2021-05-26 Completed [facility] Polysaccharide 00:00:00 of Medicin e Pneumococcal 2021-05-26 Completed [facility] Polysaccharide 00:00:00 of Medicin e Influenza Virus 2021-03-15 Completed [facility] Vaccine Recomb Quad 00:00:00 [place] [facility], Preserv and ABX Branc h Free 18-64 YRS Influenza Virus 2021-03-15 Completed [facility] of Vaccine Recomb Quad 00:00:00 [place] [facility] IM, Preserv and ABX Branc h Free 18-64 YRS Influenza Quad-PF 2021-03-15 Completed [facility] 00:00:00 of Medicine Influenza Quad-PF 2021-03-15 Completed [facility] 00:00:00 of Medicine Influenza Quad-PF 2021-03-15 Completed [facility] 00:00:00 of Medicine Influenza Quad-PF 2021-03-15 Completed [facility] 00:00:00 of Medicine Influenza Quad-PF 2021-03-15 Completed [facility] 00:00:00 of Medicine Influenza Quad-PF 2021-03-15 Completed [facility] 00:00:00 of Medicine Influenza Quad-PF 2021-03-15 Completed [facility] 00:00:00 of Medicine Influenza Quad-PF 2021-03-15 Completed [facility] 00:00:00 of Medicine Influenza Quad-PF 2021-03-15 Completed [facility] 00:00:00 of Medicine Influenza Quad-PF 2021-03-15 Completed [facility] 00:00:00 of Medicine Influenza Quad-PF 2021-03-15 Completed [facility] 00:00:00 of Medicine Influenza Quad-PF 2021-03-15 Completed [facility] 00:00:00 of Medicine Influenza Quad-PF 2021-03-15 Completed [facility] 00:00:00 of Medicine Influenza Quad-PF 2021-03-15 Completed [facility] 00:00:00 of Medicine Influenza Quad-PF 2021-03-15 Completed [facility] 00:00:00 of Medicine Influenza Quad-PF 2021-03-15 Completed [facility] 00:00:00 of Medicine Influenza Quad-PF 2021-03-15 Completed [facility] 00:00:00 of Medicine Influenza Quad-PF 2021-03-15 Completed [facility] 00:00:00 of Medicine Influenza Quad-PF 2021-03-15 Completed [facility] 00:00:00 of Medicine Influenza Quad-PF 2021-03-15 Completed [facility] 00:00:00 of Medicine Influenza Quad-PF 2021-03-15 Completed [facility] 00:00:00 of Medicine Influenza Quad-PF 2021-03-15 Completed [facility] 00:00:00 of Medicine Influenza Quad-PF 2021-03-15 Completed [facility] 00:00:00 of Medicine Influenza Quad-PF 2021-03-15 Completed [facility] 00:00:00 of Medicine Influenza Quad-PF 2021-03-15 Completed [facility] 00:00:00 of Medicine Influenza Quad-PF 2021-03-15 Completed [facility] 00:00:00 of Medicine Influenza Quad-PF 2021-03-15 Completed [facility] 00:00:00 of Medicine Influenza Quad-PF 2021-03-15 Completed [facility] 00:00:00 of Medicine Influenza Quad-PF 2021-03-15 Completed [facility] 00:00:00 of Medicine Influenza Quad-PF 2021-03-15 Completed [facility] 00:00:00 of Medicine Influenza Quad-PF 2021-03-15 Completed [facility] 00:00:00 of Medicine Influenza Quad-PF 2021-03-15 Completed [facility] 00:00:00 of Medicine Influenza Quad-PF 2021-03-15 Completed [facility] 00:00:00 of Medicine Influenza Quad-PF 2021-03-15 Completed [facility] 00:00:00 of Medicine Influenza Quad-PF 2021-03-15 Completed [facility] 00:00:00 of Medicine Influenza Quad-PF 2021-03-15 Completed [facility] 00:00:00 of Medicine Influenza Quad-PF 2021-03-15 Completed [facility] 00:00:00 of Medicine Influenza Quad-PF 2021-03-15 Completed [facility] 00:00:00 of Medicine Influenza 2021-03-15 Completed [facility] Quadrivalent (RIV4) 00:00:00 of [place] d[place] Influenza Quad-PF 2021-03-15 Completed [facility] 00:00:00 of Medicine Influenza 2021-03-15 Completed [facility] Quadrivalent (RIV4) 00:00:00 of Me dicine Influenza Quad-PF 2021-03-15 Completed [facility] 00:00:00 of Medicine Influenza 2021-03-15 Completed [facility] Quadrivalent (RIV4) 00:00:00 of Me dicine Influenza Quad-PF 2021-03-15 Completed [facility] 00:00:00 of Medicine Influenza 2021-03-15 Completed [facility] Quadrivalent (RIV4) 00:00:00 of [place] dicine Influenza Quad-PF 2021-03-15 Completed [facility] 00:00:00 of Medicine Influenza 2021-03-15 Completed [facility] Quadrivalent (RIV4) 00:00:[place] SARS-COV-2 COVID-19 2020-05-12 Completed [facility] PFIZER VACCINE 00:00:00 [facility] SARS-COV-2 COVID-19 2020-05-12 Completed [facility] PFIZER VACCINE 00:00:00 [facility] Pfizer SARS-CoV-2 2020-05-05 Completed [facility] Vaccination 00:00:00 of Medicine Pfizer SARS-CoV-2 2020-05-05 Completed [facility] Vaccination 00:00:00 of Medicine Pfizer SARS-CoV-2 2020-05-05 Completed [facility] Vaccination 00:00:00 of Medicine Pfizer SARS-CoV-2 2020-05-05 Completed [facility] Vaccination 00:00:00 of Medicine Pfizer SARS-CoV-2 2020-05-05 Completed [facility] Vaccination 00:00:00 of Medicine Pfizer SARS-CoV-2 2020-05-05 Completed [facility] Vaccination 00:00:00 of Medicine Pfizer SARS-CoV-2 2020-05-05 Completed [facility] Vaccination 00:00:00 of Medicine Pfizer SARS-CoV-2 2020-05-05 Completed [facility] Vaccination 00:00:00 of Medicine Pfizer SARS-CoV-2 2020-05-05 Completed [facility] Vaccination 00:00:00 of Medicine Pfizer SARS-CoV-2 2020-05-05 Completed [facility] Vaccination 00:00:00 of Medicine Pfizer SARS-CoV-2 2020-05-05 Completed [employer] [facility] 00:00:00 of Medicine Pfizer SARS-CoV-2 2020-05-05 Completed [employer] Vaccination 00:00:00 of Medicine Pfizer SARS-CoV-2 2020-05-05 Completed [facility] Vaccination 00:00:00 of Medicine Pfizer SARS-CoV-2 2020-05-05 Completed [facility] Vaccination 00:00:00 of Medicine Pfizer SARS-CoV-2 2020-05-05 Completed [employer] [facility] 00:00:00 of Medicine Pfizer SARS-CoV-2 2020-05-05 Completed [employer] [facility]ination 00:00:00 of Medicine Pfizer SARS-CoV-2 2020-05-05 Completed [facility] Vaccination 00:00:00 of Medicine Pfizer SARS-CoV-2 2020-05-05 Completed [facility] Vaccination 00:00:00 of Medicine Pfizer SARS-CoV-2 2020-05-05 Completed [employer] [facility] 00:00:00 of Medicine Pfizer SARS-CoV-2 2020-05-05 Completed [facility] Vaccination 00:00:00 of Medicine Pfizer SARS-CoV-2 2020-05-05 Completed [employer] Vaccination 00:00:00 of Medicine Pfizer SARS-CoV-2 2020-05-05 Completed [facility] Vaccination 00:00:00 of Medicine Pfizer SARS-CoV-2 2020-05-05 Completed [employer] [facility]ination 00:00:00 of Medicine Pfizer SARS-CoV-2 2020-05-05 Completed [facility] Vacc[facility] 00:00:00 of Medicine Pfizer SARS-CoV-2 2020-05-05 Completed [facility] Vaccination 00:00:00 of Medicine Pfizer SARS-CoV-2 2020-05-05 Completed [employer] [facility] 00:00:00 of Medicine Pfizer SARS-CoV-2 2020-05-05 Completed [employer] [facility] 00:00:00 of Medicine Pfizer SARS-CoV-2 2020-05-05 Completed [employer] [facility] 00:00:00 of Medicine Pfizer SARS-CoV-2 2020-05-05 Completed [employer] [facility] 00:00:00 of Medicine Pfizer SARS-CoV-2 2020-05-05 Completed [employer] [facility] 00:00:00 of Medicine Pfizer SARS-CoV-2 2020-05-05 Completed [facility] Vacc[facility] 00:00:00 of Medicine Pfizer SARS-CoV-2 2020-05-05 Completed [facility] Vacc[facility] 00:00:00 of Medicine Pfizer SARS-CoV-2 2020-05-05 Completed [facility] 00:00:00 of Medicine Pfizer SARS-CoV-2 2020-05-05 Completed [employer] [facility]ination 00:00:00 of Medicine Pfizer SARS-CoV-2 2020-05-05 Completed [employer] [facility] 00:00:00 of Medicine Pfizer SARS-CoV-2 2020-05-05 Completed [employer] [facility] 00:00:00 of Medicine Pfizer SARS-CoV-2 2020-05-05 Completed [employer] [facility] 00:00:00 of Medicine Pfizer SARS-CoV-2 2020-05-05 Completed [facility] Vacc[facility] 00:00:00 of Medicine Pfizer SARS-CoV-2 2020-05-05 Completed [employer] [facility] 00:00:00 of Medicine Pfizer SARS-CoV-2 2020-05-05 Completed [employer] Vaccination 00:00:00 of Medicine Pfizer SARS-CoV-2 2020-05-05 Completed [employer] [facility] 00:00:00 of Medicine Pfizer SARS-CoV-2 2020-05-05 Completed [facility] Vacc[facility] 00:00:00 of Medicine Pfizer SARS-CoV-2 2020-05-05 Completed [employer] [facility] 00:00:00 of Medicine SARS-COV-2 COVID-19 2020-04-22 Completed [facility] PFIZER VACCINE 00:00:00 [facility] SARS-COV-2 COVID-19 2020-04-22 Completed [facility] PFIZER VACCINE 00:00:00 [facility] Pfizer SARS-CoV-2 2020-04-21 Completed [employer] [facility] 00:00:00 of Medicine Pfizer SARS-CoV-2 2020-04-21 Completed [employer] [facility] 00:00:00 of Medicine Pfizer SARS-CoV-2 2020-04-21 Completed [employer] [facility] 00:00:00 of Medicine Pfizer SARS-CoV-2 2020-04-21 Completed [employer] [facility] 00:00:00 of Medicine Pfizer SARS-CoV-2 2020-04-21 Completed [facility] Vacc[facility] 00:00:00 of Medicine Pfizer SARS-CoV-2 2020-04-21 Completed [employer] [facility] 00:00:00 of Medicine Pfizer SARS-CoV-2 2020-04-21 Completed [facility] Vacc[facility] 00:00:00 of Medicine Pfizer SARS-CoV-2 2020-04-21 Completed [employer] [facility] 00:00:00 of Medicine Pfizer SARS-CoV-2 2020-04-21 Completed [employer] [facility] 00:00:00 of Medicine Pfizer SARS-CoV-2 2020-04-21 Completed [employer] [facility] 00:00:00 of Medicine Pfizer SARS-CoV-2 2020-04-21 Completed [employer] [facility] 00:00:00 of Medicine Pfizer SARS-CoV-2 2020-04-21 Completed [facility] Vacc[facility] 00:00:00 of Medicine Pfizer SARS-CoV-2 2020-04-21 Completed [employer] [facility] 00:00:00 of Medicine Pfizer SARS-CoV-2 2020-04-21 Completed [employer] [facility] 00:00:00 of Medicine Pfizer SARS-CoV-2 2020-04-21 Completed [facility] Vacc[facility] 00:00:00 of Medicine Pfizer SARS-CoV-2 2020-04-21 Completed [employer] [facility] 00:00:00 of Medicine Pfizer SARS-CoV-2 2020-04-21 Completed [employer] [facility] 00:00:00 of Medicine Pfizer SARS-CoV-2 2020-04-21 Completed [employer] [facility] 00:00:00 of Medicine Pfizer SARS-CoV-2 2020-04-21 Completed [employer] [facility] 00:00:00 of Medicine Pfizer SARS-CoV-2 2020-04-21 Completed [facility] Vacc[facility] 00:00:00 of Medicine Pfizer SARS-CoV-2 2020-04-21 Completed [employer] [facility] 00:00:00 of Medicine Pfizer SARS-CoV-2 2020-04-21 Completed [employer] [facility] 00:00:00 of Medicine Pfizer SARS-CoV-2 2020-04-21 Completed [employer] [facility] 00:00:00 of Medicine Pfizer SARS-CoV-2 2020-04-21 Completed [facility] 00:00:00 of Medicine Pfizer SARS-CoV-2 2020-04-21 Completed [facility] 00:00:00 of Medicine Pfizer SARS-CoV-2 2020-04-21 Completed [facility] 00:00:00 of Medicine Pfizer SARS-CoV-2 2020-04-21 Completed [facility] 00:00:00 of Medicine Pfizer SARS-CoV-2 2020-04-21 Completed [facility] 00:00:00 of Medicine Pfizer SARS-CoV-2 2020-04-21 Completed [facility] 00:00:00 of Medicine Pfizer SARS-CoV-2 2020-04-21 Completed [facility] 00:00:00 of Medicine Pfizer SARS-CoV-2 2020-04-21 Completed [employer] Vacc[facility] 00:00:00 of Medicine Pfizer SARS-CoV-2 2020-04-21 Completed [employer] [facility] 00:00:00 of Medicine Pfizer SARS-CoV-2 2020-04-21 Completed [facility] Vacc[facility] 00:00:00 of Medicine Pfizer SARS-CoV-2 2020-04-21 Completed [employer] [facility] 00:00:00 of Medicine Pfizer SARS-CoV-2 2020-04-21 Completed [employer] [facility] 00:00:00 of Medicine Pfizer SARS-CoV-2 2020-04-21 Completed [facility] Vacc[facility] 00:00:00 of Medicine Pfizer SARS-CoV-2 2020-04-21 Completed [facility] Vacc[facility] 00:00:00 of Medicine Pfizer SARS-CoV-2 2020-04-21 Completed [employer] [facility] 00:00:00 of Medicine Pfizer SARS-CoV-2 2020-04-21 Completed [facility] Vacc[facility] 00:00:00 of Medicine Pfizer SARS-CoV-2 2020-04-21 Completed [employer] [facility] 00:00:00 of Medicine Pfizer SARS-CoV-2 2020-04-21 Completed [employer] [facility] 00:00:00 of Medicine Pfizer SARS-CoV-2 2020-04-21 Completed [employer] [facility] 00:00:00 of Medicine Pfizer SARS-CoV-2 2020-04-21 Completed [facility] Vacc[facility] 00:00:00 of Medicine Vital Signs Vital Name Observation Time Observation Value Comments Source HEIGHT 2020-12-29 167.6 cm 19:45:00 WEIGHT 2020-12-29 58.968 kg 19:45:00 Systolic blood 2022-08-01 138 mm[Hg] [facility] e pressure 15:08:00 of Medicine Diastolic blood 2022-08-01 96 mm[Hg] [facility] pressure 15:08:00 of Medicine Heart rate 2022-08-01 84 /min [facility] 15:08:00 of Medicine Respiratory rate 2022-08-01 16 /min [facility] 15:08:00 of Medicine Body height 2022-08-01 167.6 cm [facility] 15:08:00 of Medicine Body weight 2022-08-01 55.792 kg [facility] 15:08:00 of Medicine BMI 2022-08-01 19.85 kg/m2 [facility] 15:08:00 of Medicine Systolic blood 2022-07-15 141 mm[Hg] [facility] pressure 16:42:00 of Medicine Diastolic blood 2022-07-15 85 mm[Hg] [facility] pressure 16:42:00 of Medicine Heart rate 2022-07-15 67 /min [facility] 16:42:00 of Medicine Body temperature 2022-07-15 36.72 Amber [facility] 16:42:00 of Medicine Body height 2022-07-15 167.6 cm [facility] 16:42:00 of Medicine Body weight 2022-07-15 56.518 kg [facility] 16:42:00 of Medicine BMI 2022-07-15 20.11 kg/m2 [facility] 16:42:00 of Medicine Body height 2022-07-13 157.5 cm [facility] 17:52:00 [facility] Systolic blood 2022-06-03 153 mm[Hg] [facility] pressure 15:58:00 of Medicine Diastolic blood 2022-06-03 96 mm[Hg] [facility] pressure 15:58:00 of Medicine Heart rate 2022-06-03 70 /min [facility] 15:58:00 of Medicine Body temperature 2022-06-03 36.39 Amber [facility] 15:58:00 of Medicine Body height 2022-06-03 167.6 cm [facility] 15:58:00 of Medicine Body weight 2022-06-03 59.33 kg [facility] 15:58:00 of Medicine BMI 2022-06-03 21.11 kg/m2 [facility] 15:58:00 of Medicine Systolic blood 2022-04-22 143 mm[Hg] [facility] pressure 16:00:00 of Medicine Diastolic blood 2022-04-22 88 mm[Hg] [facility] pressure 16:00:00 of Medicine Heart rate 2022-04-22 79 /min [facility] 16:00:00 of Medicine Body temperature 2022-04-22 36.56 Amber [facility] 16:00:00 of Medicine Body height 2022-04-22 167.6 cm [facility] 16:00:00 of Medicine Body weight 2022-04-22 59.875 kg [facility] 16:00:00 of Medicine BMI 2022-04-22 21.31 kg/m2 [facility] 16:00:00 of Medicine Systolic blood 2022-04-14 156 mm[Hg] [facility] e pressure 16:27:00 of Medicine Diastolic blood 2022-04-14 111 mm[Hg] [facility] pressure 16:27:00 of Medicine Heart rate 2022-04-14 77 /min [facility] 16:27:00 of Medicine Respiratory rate 2022-04-14 16 /min [facility] 16:27:00 of Medicine Body height 2022-04-14 167.6 cm [facility] 16:27:00 of Medicine Body weight 2022-04-14 62.143 kg [facility] 16:27:00 of Medicine BMI 2022-04-14 22.11 kg/m2 [facility] 16:27:00 of Medicine HEIGHT 2022-03-11 167.6 cm 10:51:00 WEIGHT 2022-03-11 62.143 kg 10:51:00 HEIGHT 2022-03-11 167.6 cm 10:51:00 WEIGHT 2022-03-11 62.143 kg 10:51:00 Systolic blood 2022-03-11 162 mm[Hg] [facility] pressure 15:17:00 of Medicine Diastolic blood 2022-03-11 84 mm[Hg] [facility] pressure 15:17:00 of Medicine Heart rate 2022-03-11 79 /min [facility] 15:17:00 of Medicine Body temperature 2022-03-11 36.78 Amber [facility] 15:17:00 of Medicine Body height 2022-03-11 167.6 cm [facility] 15:17:00 of Medicine Body weight 2022-03-11 62.506 kg [facility] 15:17:00 of Medicine BMI 2022-03-11 22.24 kg/m2 [facility] 15:17:00 of Medicine HEIGHT 2022-03-11 167.6 cm 10:51:00 WEIGHT 2022-03-11 62.143 kg 10:51:00 Systolic blood 2022-03-11 162 mm[Hg] [facility] pressure 15:21:00 of Medicine Diastolic blood 2022-03-11 84 mm[Hg] [facility] pressure 15:21:00 of Medicine Heart rate 2022-03-11 79 /min [facility] 15:21:00 of Medicine Body temperature 2022-03-11 36.78 Amber [facility] 15:21:00 of Medicine Body height 2022-03-11 167.6 cm [facility] 15:21:00 of Medicine Body weight 2022-03-11 62.143 kg [facility] 15:21:00 of Medicine BMI 2022-03-11 22.11 kg/m2 [facility] 15:21:00 of Medicine Systolic blood 2022-02-18 131 mm[Hg] [facility] pressure 17:04:00 of Medicine Diastolic blood 2022-02-18 78 mm[Hg] [facility] pressure 17:04:00 of Medicine Heart rate 2022-02-18 68 /min [facility] 17:04:00 of Medicine Body temperature 2022-02-18 36.67 Amber [facility] 17:04:00 of Medicine Body height 2022-02-18 167.6 cm [facility] 17:04:00 of Medicine Body weight 2022-02-18 62.959 kg [facility] 17:04:00 of Medicine BMI 2022-02-18 22.40 kg/m2 [facility] 17:04:00 of Medicine WEIGHT 2022-02-05 61.054 kg 04:11:00 WEIGHT 2022-02-04 61.054 kg 22:27:00 WEIGHT 2022-02-04 62.551 kg 06:00:00 HEIGHT 2022-02-03 167.6 cm 05:55:00 WEIGHT 2022-02-03 61.689 kg 05:55:00 WEIGHT 2022-02-05 61.054 kg 04:11:00 WEIGHT 2022-02-04 61.054 kg 22:27:00 WEIGHT 2022-02-04 62.551 kg 06:00:00 HEIGHT 2022-02-03 167.6 cm 05:55:00 WEIGHT 2022-02-03 61.689 kg 05:55:00 WEIGHT 2022-02-05 61.054 kg 04:11:00 WEIGHT 2022-02-04 61.054 kg 22:27:00 WEIGHT 2022-02-04 62.551 kg 06:00:00 HEIGHT 2022-02-03 167.6 cm 05:55:00 WEIGHT 2022-02-03 61.689 kg 05:55:00 Systolic blood 2022-01-27 132 mm[Hg] [facility] e pressure 14:25:00 of Medicine Diastolic blood 2022-01-27 86 mm[Hg] [facility] ge pressure 14:25:00 of Medicine Heart rate 2022-01-27 73 /min [facility] 14:25:00 of Medicine Body temperature 2022-01-27 35.89 Amber [facility] 14:25:00 of Medicine Body height 2022-01-27 167.6 cm [facility] 14:25:00 of Medicine Body weight 2022-01-27 62.596 kg [facility] 14:25:00 of Medicine BMI 2022-01-27 22.27 kg/m2 [facility] 14:25:00 of Medicine Oxygen saturation 2022-01-27 99 /min [facility] in Arterial blood 14:25:00 of Medicin e by Pulse oximetry Systolic blood 2022-01-21 140 mm[Hg] [facility] 16:30[facility] of Medicine Diastolic blood 2022-01-21 88 mm[Hg] [facility] pressure 16:30:00 of Medicine Heart rate 2022-01-21 83 /min [facility] 16:30:00 of Medicine Body temperature 2022-01-21 36.72 Amber [facility] 16:30:00 of Medicine Body height 2022-01-21 167.6 cm [facility] 16:30:00 of Medicine Body weight 2022-01-21 60.601 kg [facility] 16:30:00 of Medicine BMI 2022-01-21 21.56 kg/m2 [facility] 16:30:00 of Medicine Systolic blood 2022-01-21 140 mm[Hg] [facility] pressure 16:27:00 of Medicine Diastolic blood 2022-01-21 88 mm[Hg] [facility] pressure 16:27:00 of Medicine Heart rate 2022-01-21 83 /min [facility] 16:27:00 of Medicine Body temperature 2022-01-21 36.72 Amber [facility] 16:27:00 of Medicine Body height 2022-01-21 167.6 cm [facility] 16:27:00 of Medicine Body weight 2022-01-21 60.601 kg [facility] 16:27:00 of Medicine BMI 2022-01-21 21.56 kg/m2 [facility] 16:27:00 of Medicine Systolic blood 2022-01-11 152 mm[Hg] [facility] pressure 15:04:00 of Medicine Diastolic blood 2022-01-11 111 mm[Hg] [facility] pressure 15:04:00 of Medicine Heart rate 2022-01-11 85 /min [facility] 15:01:00 of Medicine Body height 2022-01-11 167.6 cm [facility] 15:01:00 of Medicine Oxygen saturation 2022-01-11 95 /min [facility] in Arterial blood 15:01:00 of Medicin e by Pulse oximetry Systolic blood 2021-12-24 167 mm[Hg] [facility] pressure 15:19:00 of Medicine Diastolic blood 2021-12-24 112 mm[Hg] [facility] pressure 15:19:00 of Medicine Heart rate 2021-12-24 81 /min [facility] 15:19:00 of Medicine Body temperature 2021-12-24 36.67 Amber [facility] 15:19:00 of Medicine Body height 2021-12-24 167.6 cm [facility] 15:19:00 of Medicine Body weight 2021-12-24 59.421 kg [facility] 15:19:00 of Medicine BMI 2021-12-24 21.14 kg/m2 [facility] 15:19:00 of Medicine HEIGHT 2021-11-30 167.6 cm 07:53:00 WEIGHT 2021-11-30 60.782 kg 07:53:00 HEIGHT 2021-11-30 167.6 cm 07:53:00 WEIGHT 2021-11-30 60.782 kg 07:53:00 HEIGHT 2021-11-30 167.6 cm 07:53:00 WEIGHT 2021-11-30 60.782 kg 07:53:00 Systolic blood 2021-11-26 180 mm[Hg] [employer] [facility] pressure 13:31:00 of Medicine Diastolic blood 2021-11-26 110 mm[Hg] [facility] pressure 13:31:00 of Medicine Heart rate 2021-11-26 90 /min [facility] 13:31:00 of Medicine Body temperature 2021-11-26 36.56 Amber [facility] 13:31:00 of Medicine Body height 2021-11-26 167.6 cm [facility] 13:31:00 of Medicine Body weight 2021-11-26 61.145 kg [facility] 13:31:00 of Medicine BMI 2021-11-26 21.76 kg/m2 [facility] 13:31:00 of Medicine Systolic blood 2021-11-24 196 mm[Hg] [facility] pressure 16:03:00 of Medicine Diastolic blood 2021-11-24 113 mm[Hg] [facility] pressure 16:03:00 of Medicine Heart rate 2021-11-24 77 /min [facility] 16:03:00 of Medicine Respiratory rate 2021-11-24 16 /min [facility] 16:03:00 of Medicine Body height 2021-11-24 167.6 cm [facility] 16:03:00 of Medicine Body weight 2021-11-24 61.417 kg [facility] 16:03:00 of Medicine BMI 2021-11-24 21.85 kg/m2 [facility] 16:03:00 of Medicine Systolic blood 2021-11-24 180 mm[Hg] [facility] pressure 17:47:00 of Medicine Diastolic blood 2021-11-24 123 mm[Hg] [employer] [facility] 17:47:00 of Medicine Heart rate 2021-11-24 85 /min [facility] 17:47:00 of Medicine Body temperature 2021-11-24 36.44 Amber [facility] 17:47:00 of Medicine Body height 2021-11-24 167.6 cm [facility] 17:47:00 of Medicine Body weight 2021-11-24 60.873 kg [facility] 17:47:00 of Medicine BMI 2021-11-24 21.66 kg/m2 [facility] 17:47:00 of Medicine Systolic blood 2021-10-29 169 mm[Hg] [employer] [facility] pressure 14:53:00 of Medicine Diastolic blood 2021-10-29 102 mm[Hg] [facility] pressure 14:53:00 of Medicine Heart rate 2021-10-29 85 /min [facility] 14:53:00 of Medicine Body temperature 2021-10-29 36.39 Amber [facility] 14:53:00 of Medicine Body height 2021-10-29 167.6 cm [facility] 14:53:00 of Medicine Body weight 2021-10-29 60.963 kg [facility] 14:53:00 of Medicine BMI 2021-10-29 21.69 kg/m2 [facility] 14:53:00 of Medicine Systolic blood 2021-10-29 169 mm[Hg] [facility] pressure 14:49:00 of Medicine Diastolic blood 2021-10-29 102 mm[Hg] [facility] pressure 14:49:00 of Medicine Heart rate 2021-10-29 85 /min [facility] 14:49:00 of Medicine Body temperature 2021-10-29 36.39 Amber [facility] 14:49:00 of Medicine Body height 2021-10-29 167.6 cm [facility] 14:49:00 of Medicine Body weight 2021-10-29 60.963 kg [facility] 14:49:00 of Medicine BMI 2021-10-29 21.69 kg/m2 [facility] 14:49:00 of Medicine Systolic blood 2021-10-11 159 mm[Hg] [employer] [facility] pressure 14:51:00 of Medicine Diastolic blood 2021-10-11 103 mm[Hg] [employer] pressure 14:51:00 of Medicine Heart rate 2021-10-11 77 /min [facility] 14:51:00 of Medicine Body height 2021-10-11 167.6 cm [facility] 14:51:00 of Medicine Body weight 2021-10-11 60.782 kg [facility] 14:51:00 of Medicine BMI 2021-10-11 21.63 kg/m2 [facility] 14:51:00 of Medicine Oxygen saturation 2021-10-11 99 /min [facility] in Arterial blood 14:51:00 of Medicin e by Pulse oximetry Systolic blood 2021-09-24 145 mm[Hg] [facility] [employer] pressure 13:08:00 of Medicine Diastolic blood 2021-09-24 91 mm[Hg] [facility] pressure 13:08:00 of Medicine Heart rate 2021-09-24 69 /min [facility] 13:08:00 of Medicine Body temperature 2021-09-24 36.22 Amber [facility] 13:08:00 of Medicine Respiratory rate 2021-09-24 18 /min [facility] 13:08:00 of Medicine Body height 2021-09-24 167.6 cm [facility] 13:08:00 of Medicine Body weight 2021-09-24 62.687 kg [facility] 13:08:00 of Medicine BMI 2021-09-24 22.31 kg/m2 [facility] 13:08:00 of Medicine Systolic blood 2021-09-24 145 mm[Hg] [facility] [employer] pressure 13:05:00 of Medicine Diastolic blood 2021-09-24 91 mm[Hg] [facility] pressure 13:05:00 of Medicine Heart rate 2021-09-24 69 /min [facility] 13:05:00 of Medicine Body temperature 2021-09-24 36.22 Amber [facility] 13:05:00 of Medicine Respiratory rate 2021-09-24 18 /min [facility] 13:05:00 of Medicine Body height 2021-09-24 167.6 cm [facility] 13:05:00 of Medicine Body weight 2021-09-24 62.687 kg [facility] 13:05:00 of Medicine BMI 2021-09-24 22.31 kg/m2 [facility] 13:05:00 of Medicine Systolic blood 2021-09-03 134 mm[Hg] [facility] [employer] pressure 14:20:00 of Medicine Diastolic blood 2021-09-03 84 mm[Hg] [facility] pressure 14:20:00 of Medicine Heart rate 2021-09-03 71 /min [facility] 14:20:00 of Medicine Body temperature 2021-09-03 36.67 Amber [facility] 14:20:00 of Medicine Body height 2021-09-03 167.6 cm [facility] 14:20:00 of Medicine Body weight 2021-09-03 62.324 kg [facility] 14:20:00 of Medicine BMI 2021-09-03 22.18 kg/m2 [facility] 14:20:00 of Medicine Systolic blood 2021-08-13 142 mm[Hg] [facility] [employer] pressure 13:22:00 of Medicine Diastolic blood 2021-08-13 88 mm[Hg] [facility] [employer] pressure 13:22:00 of Medicine Heart rate 2021-08-13 81 /min [facility] 13:22:00 of Medicine Body temperature 2021-08-13 36.67 Amber [facility] 13:22:00 of Medicine Body height 2021-08-13 167.6 cm [facility] 13:22:00 of Medicine Body weight 2021-08-13 62.959 kg [facility] 13:22:00 of Medicine BMI 2021-08-13 22.40 kg/m2 [facility] 13:22:00 of Medicine Systolic blood 2021-08-13 142 mm[Hg] [facility] [employer] pressure 13:20:00 of Medicine Diastolic blood 2021-08-13 88 mm[Hg] [facility] [employer] pressure 13:20:00 of Medicine Heart rate 2021-08-13 81 /min [facility] 13:20:00 of Medicine Body temperature 2021-08-13 36.67 Amber [facility] 13:20:00 of Medicine Body height 2021-08-13 167.6 cm [facility] 13:20:00 of Medicine Body weight 2021-08-13 62.959 kg [facility] 13:20:00 of Medicine BMI 2021-08-13 22.40 kg/m2 [facility] 13:20:00 of Medicine Systolic blood 2021-08-06 115 mm[Hg] [employer] [employer] [facility] 14:44:00 of Medicine Diastolic blood 2021-08-06 78 mm[Hg] [facility] [employer] pressure 14:44:00 of Medicine Heart rate 2021-08-06 68 /min [facility] 14:44:00 of Medicine Body height 2021-08-06 167.6 cm [facility] 14:44:00 of Medicine Body weight 2021-08-06 61.689 kg [facility] 14:44:00 of Medicine BMI 2021-08-06 21.95 kg/m2 [facility] 14:44:00 of Medicine Systolic blood 2021-08-06 130 mm[Hg] [facility] [employer] pressure 13:52:00 of Medicine Diastolic blood 2021-08-06 85 mm[Hg] [facility] pressure 13:52:00 of Medicine Heart rate 2021-08-06 79 /min [facility] 13:52:00 of Medicine Respiratory rate 2021-08-06 16 /min [facility] 13:52:00 of Medicine Body height 2021-08-06 167.6 cm [facility] 13:52:00 of Medicine Body weight 2021-08-06 61.689 kg [facility] 13:52:00 of Medicine BMI 2021-08-06 21.95 kg/m2 [facility] 13:52:00 of Medicine Oxygen saturation 2021-08-06 100 /min [facility] in Arterial blood 13:52:00 of Medicin e by Pulse oximetry Systolic blood 2021-07-23 151 mm[Hg] [employer] [employer] pressure 14:39:00 of Medicine Diastolic blood 2021-07-23 94 mm[Hg] [facility] pressure 14:39:00 of Medicine Heart rate 2021-07-23 95 /min [facility] 14:39:00 of Medicine Body temperature 2021-07-23 36.44 Amber [facility] 14:39:00 of Medicine Body height 2021-07-23 167.6 cm [facility] 14:39:00 of Medicine Body weight 2021-07-23 61.871 kg [facility] 14:39:00 of Medicine BMI 2021-07-23 22.02 kg/m2 [facility] 14:39:00 of Medicine Systolic blood 2021-07-23 151 mm[Hg] [facility] [employer] pressure 14:10:00 of Medicine Diastolic blood 2021-07-23 94 mm[Hg] [facility] [employer] pressure 14:10:00 of Medicine Heart rate 2021-07-23 95 /min [facility] 14:10:00 of Medicine Body temperature 2021-07-23 36.44 Amber [facility] 14:10:00 of Medicine Body height 2021-07-23 167.6 cm [facility] 14:10:00 of Medicine Body weight 2021-07-23 61.689 kg [facility] 14:10:00 of Medicine BMI 2021-07-23 21.95 kg/m2 [facility] 14:10:00 of Medicine Systolic blood 2021-07-14 145 mm[Hg] [facility] [employer] pressure 14:00:00 of Medicine Diastolic blood 2021-07-14 103 mm[Hg] [facility] pressure 14:00:00 of Medicine Heart rate 2021-07-14 84 /min [facility] 14:00:00 of Medicine Body height 2021-07-14 167.6 cm [facility] 14:00:00 of Medicine Body weight 2021-07-14 61.689 kg [facility] 14:00:00 of Medicine BMI 2021-07-14 21.95 kg/m2 [facility] 14:00:00 of Medicine HEIGHT 2021-07-05 167.6 cm 20:35:00 WEIGHT 2021-07-05 58.968 kg 20:35:00 HEIGHT 2021-07-05 167.6 cm 20:35:00 WEIGHT 2021-07-05 58.968 kg 20:35:00 Systolic blood 2021-07-02 151 mm[Hg] [facility] [employer] pressure 14:01:00 of Medicine Diastolic blood 2021-07-02 99 mm[Hg] [facility] pressure 14:01:00 of Medicine Heart rate 2021-07-02 79 /min [facility] 14:01:00 of Medicine Body temperature 2021-07-02 36.67 Amber [facility] 14:01:00 of Medicine Body height 2021-07-02 167.6 cm [facility] 14:01:00 of Medicine Body weight 2021-07-02 61.689 kg [facility] 14:01:00 of Medicine BMI 2021-07-02 21.95 kg/m2 [facility] 14:01:00 of Medicine Systolic blood 2021-06-11 149 mm[Hg] [facility] [employer] pressure 14:32:00 of Medicine Diastolic blood 2021-06-11 97 mm[Hg] [facility] pressure 14:32:00 of Medicine Heart rate 2021-06-11 84 /min [facility] 14:32:00 of Medicine Body temperature 2021-06-11 36.72 Amber [facility] 14:32:00 of Medicine Body height 2021-06-11 167.6 cm [facility] 14:32:00 of Medicine Body weight 2021-06-11 60.5 kg [facility] 14:32:00 of Medicine BMI 2021-06-11 21.53 kg/m2 [facility] 14:32:00 of Medicine Systolic blood 2021-06-11 149 mm[Hg] [facility] [employer] pressure 14:15:00 of Medicine Diastolic blood 2021-06-11 97 mm[Hg] [facility] [employer] pressure 14:15:00 of Medicine Heart rate 2021-06-11 84 /min [facility] 14:15:00 of Medicine Body temperature 2021-06-11 36.72 Amber [facility] 14:15:00 of Medicine Body height 2021-06-11 167.6 cm [facility] 14:15:00 of Medicine Body weight 2021-06-11 60.51 kg [facility] 14:15:00 of Medicine BMI 2021-06-11 21.53 kg/m2 [facility] 14:15:00 of Medicine Systolic blood 2021-05-26 143 mm[Hg] [facility] [employer] pressure 16:15:00 of Medicine Diastolic blood 2021-05-26 91 mm[Hg] [facility] [employer] [facility] 16:15:00 of Medicine Heart rate 2021-05-26 77 /min [facility] 16:15:00 of Medicine Body temperature 2021-05-26 36.39 Amber [facility] 16:15:00 of Medicine Body height 2021-05-26 167.6 cm [facility] 16:15:00 of Medicine Body weight 2021-05-26 61.236 kg [facility] 16:15:00 of Medicine BMI 2021-05-26 21.79 kg/m2 [facility] 16:15:00 of Medicine Systolic blood 2021-05-25 118 mm[Hg] [facility] [employer] pressure 17:10:00 of Medicine Diastolic blood 2021-05-25 80 mm[Hg] [facility] pressure 17:10:00 of Medicine Heart rate 2021-05-25 75 /min [facility] 17:10:00 of Medicine Respiratory rate 2021-05-25 16 /min [facility] 17:10:00 of Medicine Body height 2021-05-25 167.6 cm [facility] 17:10:00 of Medicine Body weight 2021-05-25 60.691 kg [facility] 17:10:00 of Medicine BMI 2021-05-25 21.60 kg/m2 [facility] 17:10:00 of Medicine Systolic blood 2021-05-21 136 mm[Hg] [facility] [employer] [facility] 14:15:00 of Medicine Diastolic blood 2021-05-21 89 mm[Hg] [facility] [employer] [facility] 14:15:00 of Medicine Heart rate 2021-05-21 78 /min [facility] 14:15:00 of Medicine Body temperature 2021-05-21 36.56 Amber [facility] 14:15:00 of Medicine Body height 2021-05-21 167.6 cm [facility] 14:15:00 of Medicine Body weight 2021-05-21 60.782 kg [facility] 14:15:00 of Medicine BMI 2021-05-21 21.63 kg/m2 [facility] 14:15:00 of Medicine Systolic blood 2021-04-30 188 mm[Hg] [employer] [facility] 14:21:00 of Medicine Diastolic blood 2021-04-30 119 mm[Hg] [facility] pressure 14:21:00 of Medicine Heart rate 2021-04-30 82 /min [facility] 14:21:00 of Medicine Body temperature 2021-04-30 36.67 Amber [facility] 14:21:00 of Medicine Body height 2021-04-30 167.6 cm [facility] 14:21:00 of Medicine Body weight 2021-04-30 60.691 kg [facility] 14:21:00 of Medicine BMI 2021-04-30 21.60 kg/m2 [facility] 14:21:00 of Medicine Systolic blood 2021-04-30 188 mm[Hg] [employer] [facility] 14:14:00 of Medicine Diastolic blood 2021-04-30 119 mm[Hg] [facility] pressure 14:14:00 of Medicine Heart rate 2021-04-30 82 /min [facility] 14:14:00 of Medicine Body temperature 2021-04-30 36.67 Amber [facility] 14:14:00 of Medicine Body height 2021-04-30 167.6 cm [facility] 14:14:00 of Medicine Body weight 2021-04-30 60.691 kg [facility] 14:14:00 of Medicine BMI 2021-04-30 21.60 kg/m2 [facility] 14:14:00 of Medicine Systolic blood 2021-04-20 182 mm[Hg] [facility] [employer] pressure 13:54:00 of Medicine Diastolic blood 2021-04-20 104 mm[Hg] [facility] pressure 13:54:00 of Medicine Heart rate 2021-04-20 78 /min [facility] 13:54:00 of Medicine Respiratory rate 2021-04-20 16 /min [facility] 13:54:00 of Medicine Body height 2021-04-20 167.6 cm [facility] 13:54:00 of Medicine Body weight 2021-04-20 61.236 kg [facility] 13:54:00 of Medicine BMI 2021-04-20 21.79 kg/m2 [facility] 13:54:00 of Medicine HEIGHT 2021-04-14 167.6 [...] of Medicine Heart rate 2021-04-09 80 /min [facility] 14:12:00 of Medicine Body temperature 2021-04-09 36.67 Amber [facility] 14:12:00 of Medicine Respiratory rate 2021-04-09 18 /min [facility] 14:12:00 of Medicine Body height 2021-04-09 167.6 cm [facility] 14:12:00 of Medicine Body weight 2021-04-09 61.735 kg [facility] 14:12:00 of Medicine BMI 2021-04-09 21.97 kg/m2 [facility] 14:12:00 of Medicine Systolic blood 2021-04-09 195 mm[Hg] reported to dr. [facility] pressure 14:14:00 yen of Medicine Diastolic blood 2021-04-09 115 mm[Hg] reported to dr. [facility] pressure 14:14:00 yen of Medicine Heart rate 2021-04-09 80 /min [facility] 14:14:00 of Medicine Body temperature 2021-04-09 36.67 Amber [facility] 14:14:00 of Medicine Respiratory rate 2021-04-09 18 /min [facility] 14:14:00 of Medicine Body height 2021-04-09 167.6 cm [facility] 14:14:00 of Medicine Body weight 2021-04-09 61.735 kg [facility] 14:14:00 of Medicine BMI 2021-04-09 21.97 kg/m2 [facility] 14:14:00 of Medicine Systolic blood 2021-03-15 193 mm[Hg] [facility] pressure 15:56:00 of Medicine Diastolic blood 2021-03-15 126 mm[Hg] [facility] pressure 15:56:00 of Medicine Heart rate 2021-03-15 73 /min [facility] 15:56:00 of Medicine Body height 2021-03-15 167.6 cm [facility] 15:56:00 of Medicine Body weight 2021-03-15 61.236 kg [facility] 15:56:00 of Medicine BMI 2021-03-15 21.79 kg/m2 [facility] 15:56:00 of Medicine Systolic blood 2021-03-12 176 mm[Hg] [facility] [employer] pressure 14:10:00 of Medicine Diastolic blood 2021-03-12 97 mm[Hg] [facility] pressure 14:10:00 of Medicine Heart rate 2021-03-12 77 /min [facility] 14:10:00 of Medicine Body temperature 2021-03-12 36.83 Amber [facility] 14:10:00 of Medicine Body height 2021-03-12 167.6 cm [facility] 14:10:00 of Medicine Body weight 2021-03-12 61.78 kg [facility] 14:10:00 of Medicine BMI 2021-03-12 21.98 kg/m2 [facility] 14:10:00 of Medicine Systolic blood 2021-03-12 173 mm[Hg] [facility] pressure 19:45:00 of Medicine Diastolic blood 2021-03-12 101 mm[Hg] [facility] pressure 19:45:00 of Medicine Heart rate 2021-03-12 67 /min [facility] 19:45:00 of Medicine Body temperature 2021-03-12 36.22 Amber [facility] 19:45:00 of Medicine Body height 2021-03-12 167.6 cm [facility] 19:45:00 of Medicine Body weight 2021-03-12 61.236 kg [facility] 19:45:00 of Medicine BMI 2021-03-12 21.79 kg/m2 [facility] 19:45:00 of Medicine Oxygen saturation 2021-03-12 97 /min [facility] in Arterial blood 19:45:00 of Medicin e by Pulse oximetry Systolic blood 2021-02-19 157 mm[Hg] [facility] pressure 14:26:00 of Medicine Diastolic blood 2021-02-19 92 mm[Hg] [facility] pressure 14:26:00 of Medicine Heart rate 2021-02-19 75 /min [facility] 14:26:00 of Medicine Body temperature 2021-02-19 36.61 Amber [facility] 14:26:00 of Medicine Body height 2021-02-19 167.6 cm [facility] 14:26:00 of Medicine Body weight 2021-02-19 60.873 kg [facility] 14:26:00 of Medicine BMI 2021-02-19 21.66 kg/m2 [facility] 14:26:00 of Medicine Systolic blood 2021-02-19 157 mm[Hg] [facility] pressure 14:23:00 of Medicine Diastolic blood 2021-02-19 92 mm[Hg] [facility] pressure 14:23:00 of Medicine Heart rate 2021-02-19 75 /min [facility] 14:23:00 of Medicine Body temperature 2021-02-19 36.61 Amber [facility] 14:23:00 of Medicine Body height 2021-02-19 167.6 cm [facility] 14:23:00 of Medicine Body weight 2021-02-19 60.873 kg [facility] 14:23:00 of Medicine BMI 2021-02-19 21.66 kg/m2 [facility] 14:23:00 of Medicine Systolic blood 2021-02-09 162 mm[Hg] [employer] [employer] pressure 15:59:00 of Medicine Diastolic blood 2021-02-09 100 mm[Hg] [facility] pressure 15:59:00 of Medicine Heart rate 2021-02-09 71 /min [facility] 15:59:00 of Medicine Body temperature 2021-02-09 35.67 Maber [facility] 15:59:00 of Medicine Respiratory rate 2021-02-09 16 /min [facility] 15:59:00 of Medicine Body height 2021-02-09 167.6 cm [facility] 15:59:00 of Medicine Body weight 2021-02-09 59.875 kg [facility] 15:59:00 of Medicine BMI 2021-02-09 21.31 kg/m2 [facility] 15:59:00 of Medicine Systolic blood 2021-01-29 170 mm[Hg] [facility] pressure 12:44:00 of Medicine Diastolic blood 2021-01-29 102 mm[Hg] [facility] pressure 12:44:00 of Medicine Heart rate 2021-01-29 73 /min [facility] 12:44:00 of Medicine Body temperature 2021-01-29 36.67 Amber [facility] 12:44:00 of Medicine Body height 2021-01-29 167.6 cm [facility] 12:44:00 of Medicine Body weight 2021-01-29 59.875 kg [facility] 12:44:00 of Medicine BMI 2021-01-29 21.31 kg/m2 [facility] 12:44:00 of Medicine Systolic blood 2021-01-29 170 mm[Hg] took b/p twice [facility] pressure 12:43:00 of Medicine Diastolic blood 2021-01-29 102 mm[Hg] took b/p twice [facility] pressure 12:43:00 of Medicine Heart rate 2021-01-29 73 /min [facility] 12:43:00 of Medicine Body temperature 2021-01-29 36.67 Amber [facility] 12:43:00 of Medicine Body height 2021-01-29 167.6 cm [facility] 12:43:00 of Medicine Body weight 2021-01-29 59.875 kg [facility] 12:43:00 of Medicine BMI 2021-01-29 21.31 kg/m2 [facility] 12:43:00 of Medicine Systolic blood 2021-01-08 157 mm[Hg] [facility] pressure 13:54:00 of Medicine Diastolic blood 2021-01-08 99 mm[Hg] [facility] pressure 13:54:00 of Medicine Heart rate 2021-01-08 69 /min [facility] 13:54:00 of Medicine Body temperature 2021-01-08 36.89 Amber [facility] 13:54:00 of Medicine Body height 2021-01-08 167.6 cm [facility] 13:54:00 of Medicine Body weight 2021-01-08 58.968 kg [facility] 13:54:00 of Medicine BMI 2021-01-08 20.98 kg/m2 [facility] 13:54:00 of Medicine HEIGHT 2020-12-29 167.6 cm 19:45:00 WEIGHT 2020-12-29 58.968 kg 19:45:00 HEIGHT 2020-12-29 167.6 cm 09:30:00 WEIGHT 2020-12-29 58.968 kg 09:30:00 HEIGHT 2020-12-29 167.6 cm 09:30:00 WEIGHT 2020-12-29 58.968 kg 09:30:00 Systolic blood 2020-12-18 171 mm[Hg] [facility] pressure 13:38:00 of Medicine Diastolic blood 2020-12-18 97 mm[Hg] [facility] pressure 13:38:00 of Medicine Heart rate 2020-12-18 81 /min [facility] 13:38:00 of Medicine Body temperature 2020-12-18 36.11 Amber [facility] 13:38:00 of Medicine Body height 2020-12-18 167.6 cm [facility] 13:38:00 of Medicine Body weight 2020-12-18 59.24 kg [facility] 13:38:00 of Medicine BMI 2020-12-18 21.08 kg/m2 [facility] 13:38:00 of Medicine Systolic blood 2020-12-18 171 mm[Hg] [facility] pressure 13:36:00 of Medicine Diastolic blood 2020-12-18 97 mm[Hg] [facility] pressure 13:36:00 of Medicine Heart rate 2020-12-18 81 /min [facility] 13:36:00 of Medicine Body temperature 2020-12-18 36.11 Amber [facility] 13:36:00 of Medicine Body height 2020-12-18 167.6 cm [facility] 13:36:00 of Medicine Body weight 2020-12-18 59.24 kg [facility] 13:36:00 of Medicine BMI 2020-12-18 21.08 kg/m2 [facility] 13:36:00 of Medicine Systolic blood 2020-11-27 123 mm[Hg] [facility] pressure 13:41:00 of Medicine Diastolic blood 2020-11-27 90 mm[Hg] [facility] pressure 13:41:00 of Medicine Heart rate 2020-11-27 73 /min [facility] 13:41:00 of Medicine Body temperature 2020-11-27 36.39 Amber [facility] 13:41:00 of Medicine Body height 2020-11-27 167.6 cm [facility] 13:41:00 of Medicine Body weight 2020-11-27 58.7 kg [facility] 13:41:00 of Medicine BMI 2020-11-27 20.89 kg/m2 [facility] 13:41:00 of Medicine Systolic blood 2020-11-27 179 mm[Hg] [facility] [employer] pressure 13:27:00 of Medicine Diastolic blood 2020-11-27 112 mm[Hg] [facility] [employer] pressure 13:27:00 of Medicine Heart rate 2020-11-27 73 /min [facility] 13:27:00 of Medicine Body temperature 2020-11-27 36.39 Amber [facility] 13:27:00 of Medicine Body height 2020-11-27 167.6 cm [facility] 13:27:00 of Medicine Body weight 2020-11-27 58.695 kg [facility] 13:27:00 of Medicine BMI 2020-11-27 20.89 kg/m2 [facility] 13:27:00 of Medicine Systolic blood 2020-10-16 159 mm[Hg] [facility] pressure 13:50:00 of Medicine Diastolic blood 2020-10-16 66 mm[Hg] [facility] pressure 13:50:00 of Medicine Heart rate 2020-10-16 77 /min [facility] 13:50:00 of Medicine Body temperature 2020-10-16 36.89 Amber [facility] 13:50:00 of Medicine Body height 2020-10-16 167.6 cm [facility] 13:50:00 of Medicine Body weight 2020-10-16 57.335 kg [facility] 13:50:00 of Medicine BMI 2020-10-16 20.40 kg/m2 [facility] 13:50:00 of Medicine Systolic blood 2020-09-25 159 mm[Hg] [facility] pressure 13:28:00 of Medicine Diastolic blood 2020-09-25 69 mm[Hg] [facility] pressure 13:28:00 of Medicine Heart rate 2020-09-25 69 /min [facility] 13:28:00 of Medicine Body temperature 2020-09-25 36.78 Amber [facility] 13:28:00 of Medicine Body height 2020-09-25 167.6 cm [facility] 13:28:00 of Medicine Body weight 2020-09-25 58.06 kg [facility] 13:28:00 of Medicine BMI 2020-09-25 20.66 kg/m2 [facility] 13:28:00 of Medicine Systolic blood 2020-09-04 142 mm[Hg] [facility] pressure 13:45:00 of Medicine Diastolic blood 2020-09-04 86 mm[Hg] [facility] pressure 13:45:00 of Medicine Heart rate 2020-09-04 70 /min [facility] [facility] 13:45:00 of Medicine Body temperature 2020-09-04 36.67 Amber [facility] 13:45:00 of Medicine Body height 2020-09-04 167.6 cm [facility] 13:45:00 of Medicine Body weight 2020-09-04 58.423 kg [facility] 13:45:00 of Medicine BMI 2020-09-04 20.79 kg/m2 [facility] 13:45:00 of Medicine Systolic blood 2020-08-07 148 mm[Hg] [facility] pressure 13:15:00 of Medicine Diastolic blood 2020-08-07 89 mm[Hg] [facility] pressure 13:15:00 of Medicine Heart rate 2020-08-07 70 /min [facility] 13:15:00 of Medicine Body temperature 2020-08-07 36.67 Amber [facility] 13:15:00 of Medicine Body height 2020-08-07 167.6 cm [facility] 13:15:00 of Medicine Body weight 2020-08-07 59.33 kg [facility] 13:15:00 of Medicine BMI 2020-08-07 21.11 kg/m2 [facility] 13:15:00 of Medicine Systolic blood 2020-07-17 161 mm[Hg] [facility] pressure 16:16:00 of Medicine Diastolic blood 2020-07-17 90 mm[Hg] [facility] pressure 16:16:00 of Medicine Heart rate 2020-07-17 58 /min [facility] 16:16:00 of Medicine Body height 2020-07-17 167.6 cm [facility] 16:16:00 of Medicine Body weight 2020-07-17 59.058 kg [facility] 16:16:00 of Medicine BMI 2020-07-17 21.01 kg/m2 [facility] 16:16:00 of Medicine Oxygen saturation 2020-07-17 99 /min [facility] in Arterial blood 16:16:00 of Medicin e by Pulse oximetry Systolic blood 2020-07-17 143 mm[Hg] [facility] pressure 13:58:00 of Medicine Diastolic blood 2020-07-17 86 mm[Hg] [facility] pressure 13:58:00 of Medicine Heart rate 2020-07-17 67 /min [facility] 13:58:00 of Medicine Body temperature 2020-07-17 36.11 Amber [facility] 13:58:00 of Medicine Body height 2020-07-17 167.6 cm [facility] 13:58:00 of Medicine Body weight 2020-07-17 59.512 kg [facility] 13:58:00 of Medicine BMI 2020-07-17 21.18 kg/m2 [facility] 13:58:00 of Medicine Systolic blood 2020-06-26 147 mm[Hg] [facility] [employer] pressure 13:21:00 of Medicine Diastolic blood 2020-06-26 87 mm[Hg] [facility] pressure 13:21:00 of Medicine Heart rate 2020-06-26 73 /min [facility] 13:21:00 of Medicine Body temperature 2020-06-26 36.83 Amber [facility] 13:21:00 of Medicine Body height 2020-06-26 167.6 cm [facility] 13:21:00 of Medicine Body weight 2020-06-26 59.24 kg [facility] 13:21:00 of Medicine BMI 2020-06-26 21.08 kg/m2 [facility] 13:21:00 of Medicine Systolic blood 2020-06-05 163 mm[Hg] [facility] pressure 14:36:00 of Medicine Diastolic blood 2020-06-05 95 mm[Hg] [facility] pressure 14:36:00 of Medicine Heart rate 2020-06-05 69 /min [facility] 14:36:00 of Medicine Body temperature 2020-06-05 36.39 Amber [facility] 14:36:00 of Medicine Body height 2020-06-05 167.6 cm [facility] 14:36:00 of Medicine Body weight 2020-06-05 60.691 kg [facility] 14:36:00 of Medicine BMI 2020-06-05 21.60 kg/m2 [facility] 14:36:00 of Medicine Systolic blood 2020-05-01 132 mm[Hg] [facility] [employer] pressure 16:25:00 of Medicine Diastolic blood 2020-05-01 81 mm[Hg] [facility] pressure 16:25:00 of Medicine Heart rate 2020-05-01 68 /min [facility] 16:25:00 of Medicine Body temperature 2020-05-01 36.39 Amber [facility] 16:25:00 of Medicine Body height 2020-05-01 167.6 cm [facility] 16:25:00 of Medicine Body weight 2020-05-01 61.145 kg [facility] 16:25:00 of Medicine BMI 2020-05-01 21.76 kg/m2 [facility] 16:25:00 of Medicine Systolic blood 2020-03-20 137 mm[Hg] [facility] [employer] pressure 21:17:00 of Medicine Diastolic blood 2020-03-20 88 mm[Hg] [facility] pressure 21:17:00 of Medicine Heart rate 2020-03-20 73 /min [facility] 21:17:00 of Medicine Body temperature 2020-03-20 36.61 Amber [facility] 21:17:00 of Medicine Body height 2020-03-20 167.6 cm [facility] 21:17:00 of Medicine Body weight 2020-03-20 61.145 kg [facility] 21:17:00 of Medicine BMI 2020-03-20 21.76 kg/m2 [facility] 21:17:00 of Medicine Systolic blood 2020-02-28 157 mm[Hg] [facility] [employer] pressure 19:41:00 of Medicine Diastolic blood 2020-02-28 94 mm[Hg] [facility] pressure 19:41:00 of Medicine Heart rate 2020-02-28 66 /min [facility] 19:41:00 of Medicine Body temperature 2020-02-28 36.78 Amber [facility] 19:41:00 of Medicine Respiratory rate 2020-02-28 18 /min [facility] 19:41:00 of Medicine Body height 2020-02-28 167.6 cm [facility] 19:41:00 of Medicine Body weight 2020-02-28 60.873 kg [facility] 19:41:00 of Medicine BMI 2020-02-28 21.66 kg/m2 [facility] 19:41:00 of Medicine Systolic blood 2020-01-15 153 mm[Hg] [facility] [employer] pressure 13:35:00 of Medicine Diastolic blood 2020-01-15 103 mm[Hg] [facility] pressure 13:35:00 of Medicine Heart rate 2020-01-15 69 /min [facility] 13:35:00 of Medicine Body temperature 2020-01-15 36.72 Amber [facility] 13:35:00 of Medicine Body height 2020-01-15 167.6 cm [facility] 13:35:00 of Medicine Body weight 2020-01-15 60.963 kg [facility] 13:35:00 of Medicine BMI 2020-01-15 21.69 kg/m2 [facility] 13:35:00 of Medicine Systolic blood 2020-01-09 158 mm[Hg] [facility] [employer] pressure 19:39:00 of Medicine Diastolic blood 2020-01-09 89 mm[Hg] [facility] pressure 19:39:00 of Medicine Heart rate 2020-01-09 74 /min [facility] 19:39:00 of Medicine Body temperature 2020-01-09 37.06 Amber [facility] 19:39:00 of Medicine Body height 2020-01-09 167.6 cm [facility] 19:39:00 of Medicine Body weight 2020-01-09 61.236 kg [facility] 19:39:00 of Medicine BMI 2020-01-09 21.79 kg/m2 [facility] 19:39:00 of Medicine Systolic blood 2019-12-30 193 mm[Hg] [facility] pressure 18:54:00 of Medicine Diastolic blood 2019-12-30 118 mm[Hg] [facility] pressure 18:54:00 of Medicine Heart rate 2019-12-30 60 /min [facility] 18:54:00 of Medicine Respiratory rate 2019-12-30 16 /min [facility] 18:54:00 of Medicine Body height 2019-12-30 167.6 cm [facility] 18:54:00 of Medicine Body weight 2019-12-30 61.598 kg [facility] 18:54:00 of Medicine BMI 2019-12-30 21.92 kg/m2 [facility] 18:54:00 of Medicine Oxygen saturation 2019-12-30 99 /min [facility] in Arterial blood 18:54:00 of Medicin e by Pulse oximetry Systolic blood 2019-10-30 185 mm[Hg] [facility] pressure 16:34:00 of Medicine Diastolic blood 2019-10-30 103 mm[Hg] [facility] pressure 16:34:00 of Medicine Heart rate 2019-10-30 60 /min [facility] 16:34:00 of Medicine Respiratory rate 2019-10-30 16 /min [facility] 16:34:00 of Medicine Body height 2019-10-30 167.6 cm [facility] 16:34:00 of Medicine Body weight 2019-10-30 61.689 kg [facility] 16:34:00 of Medicine BMI 2019-10-30 21.95 kg/m2 [facility] 16:34:00 of Medicine Oxygen saturation 2019-10-30 98 /min [facility] in Arterial blood 16:34:00 of Medicin e by Pulse oximetry Systolic blood 2019-10-30 185 mm[Hg] [facility] pressure 16:34:00 of Medicine Diastolic blood 2019-10-30 103 mm[Hg] [facility] pressure 16:34:00 of Medicine Heart rate 2019-10-30 60 /min [facility] 16:34:00 of Medicine Respiratory rate 2019-10-30 16 /min [facility] 16:34:00 of Medicine Body height 2019-10-30 167.6 cm [facility] 16:34:00 of Medicine Body weight 2019-10-30 61.689 kg [facility] 16:34:00 of Medicine BMI 2019-10-30 21.95 kg/m2 [facility] 16:34:00 of Medicine Oxygen saturation 2019-10-30 98 /min [facility] in Arterial blood 16:34:00 of Medicin e by Pulse oximetry Systolic blood 2019-05-01 126 mm[Hg] [facility] pressure 17:08:00 of Medicine Diastolic blood 2019-05-01 66 mm[Hg] [facility] pressure 17:08:00 of Medicine Heart rate 2019-05-01 78 /min [facility] 17:08:00 of Medicine Respiratory rate 2019-05-01 16 /min [facility] 17:08:00 of Medicine Body height 2019-05-01 167.6 cm [facility] 17:08:00 of Medicine Body weight 2019-05-01 60.963 kg [facility] 17:08:00 of Medicine BMI 2019-05-01 21.69 kg/m2 [facility] 17:08:00 of Medicine Oxygen saturation 2019-05-01 97 /min [facility] in Arterial blood 17:08:00 of Medicin e by Pulse oximetry Systolic blood 2019-05-01 126 mm[Hg] [facility] pressure 17:08:00 of Medicine Diastolic blood 2019-05-01 66 mm[Hg] [facility] pressure 17:08:00 of Medicine Heart rate 2019-05-01 78 /min [facility] 17:08:00 of Medicine Respiratory rate 2019-05-01 16 /min [facility] 17:08:00 of Medicine Body height 2019-05-01 167.6 cm [facility] 17:08:00 of Medicine Body weight 2019-05-01 60.963 kg [facility] 17:08:00 of Medicine BMI 2019-05-01 21.69 kg/m2 [facility] 17:08:00 of Medicine Oxygen saturation 2019-05-01 97 /min [facility] in Arterial blood 17:08:00 of Medicin e by Pulse oximetry Systolic blood 2018-11-22 120 mm[Hg] [facility] pressure 14:52:00 of Medicine Diastolic blood 2018-11-22 80 mm[Hg] [facility] pressure 14:52:00 of Medicine Heart rate 2018-11-22 65 /min [facility] 14:52:00 of Medicine Respiratory rate 2018-11-22 16 /min [facility] 14:52:00 of Medicine Body height 2018-11-22 167.6 cm [facility] 14:52:00 of Medicine Body weight 2018-11-22 58.514 kg [facility] 14:52:00 of Medicine BMI 2018-11-22 20.82 kg/m2 [facility] 14:52:00 of Medicine Oxygen saturation 2018-11-22 98 /min [facility] in Arterial blood 14:52:00 of Medicin e by Pulse oximetry Systolic blood 2018-11-22 120 mm[Hg] [facility] pressure 14:52:00 of Medicine Diastolic blood 2018-11-22 80 mm[Hg] [facility] pressure 14:52:00 of Medicine Heart rate 2018-11-22 65 /min [facility] 14:52:00 of Medicine Respiratory rate 2018-11-22 16 /min [facility] 14:52:00 of Medicine Body height 2018-11-22 167.6 cm [facility] 14:52:00 of Medicine Body weight 2018-11-22 58.514 kg [facility] 14:52:00 of Medicine BMI 2018-11-22 20.82 kg/m2 [facility] 14:52:00 of Medicine Oxygen saturation 2018-11-22 98 /min [facility] in Arterial blood 14:52:00 of Medicin e by Pulse oximetry Systolic blood 2022-03-11 171 mm[Hg] [facility] 10[facility]51[facility]00 [facility] Diastolic blood 2022-03-11 89 mm[Hg] [facility] pressure 10:51:00 [facility] Heart rate 2022-03-11 74 /min [facility] 10:51:00 [facility] Body temperature 2022-03-[address] [facility] Body height 2022-03-[address] [facility] 10:51:00 [facility] Body weight 2022-03-[address] [facility] 10:51:00 [facility] BMI 2022-03-11 22.11 kg/m2 [facility] 10:51:00 [facility] Oxygen saturation 2022-03-11 96 /min [facility] in Arterial blood 10:51:00 Medical Ce nter by Pulse oximetry Systolic blood 2022-02-05 115 mm[Hg] [facility] pressure 08:41:00 [facility] Diastolic blood 2022-02-05 82 mm[Hg] [facility] pressure 08:41:00 [facility] Heart rate 2022-02-05 91 /min [facility] 08:41:00 [facility] Body temperature 2022-02-[address] [facility] 08:41:00 [facility] Oxygen saturation 2022-02-05 91 /min [facility] in Arterial blood 08:41:00 Medical Ce nter by Pulse oximetry Respiratory rate 2022-02-05 18 /min [facility] 08:41:00 [facility] Body weight 2022-02-[address] [facility] 04:11:00 [facility] BMI 2022-02-05 21.72 kg/m2 [facility] 04:11:00 [facility] Body height 2022-02-[address] [facility] 05:55:00 [facility] Systolic blood 2021-12-14 154 mm[Hg] [facility] pressure 10:50:00 [facility] Diastolic blood 2021-12-14 77 mm[Hg] [facility] pressure 10:50:00 [facility] Center Heart rate 2021-12-14 61 /min [facility] 10:50:00 [facility] Respiratory rate 2021-12-14 18 /min [facility] Oxygen saturation 2021-12-14 98 /min [facility] in Arterial blood 10:50:00 Medical Ce nter by Pulse oximetry Body temperature 2021-11-30 37 Amber [facility] 07:53:00 [facility] Body height 2021-11-30 167.6 cm [facility] 07:53:00 [facility] Body weight 2021-11-30 60.782 kg [facility] 07:53:00 [facility] BMI 2021-11-30 21.63 kg/m2 [facility] 07:53:00 [facility] Procedures Procedure Date / Time Performing Source Performed Clinician COMPLETE PFT WITHOUT 2022-08-01 09:22:22 [facility] BRONCHODILATOR [facility] SIX MINUTE WALK TEST 2022-08-01 00:00:00 [facility] TSH 2022-07-15 12:30:17 [facility] T4 FREE 2022-07-15 12:30:17 [facility] CBC W/AUTO DIFF WITH 2022-07-15 12:30:17 [facility] PLATELETS [facility] COMPREHENSIVE METABOLIC 2022-07-15 12:30:17 [facility] MAGNESIUM 2022-07-15 12:30:17 [facility] AMB REF TO PT EXTERNAL 2022-07-15 12:30:17 [facility] [address] ABDOMEN/PELVIS WITH IV 2022-07-04 10:20:00 Devi Santillan [facility] CT CHEST WITH IV CONTRAST 2022-07-04 10:20:00 Devi Santillan [facility] COMPREHENSIVE METABOLIC 2022-04-22 16:44:00 Malena Shell [facility] PANEL Medicine MAGNESIUM 2022-04-22 16:44:00 Malena Shell [facility] T4 FREE 2022-04-22 16:44:00 Malena Shell [facility] TSH 2022-04-22 16:44:00 Malena Shell [facility] CBC W/AUTO DIFF WITH 2022-04-22 16:44:00 Malena Shell [facility] PLATELETS [facility] CBC W/AUTO DIFF WITH 2022-04-22 10:44:00 [facility] PLATELETS [facility] COMPREHENSIVE METABOLIC 2022-04-22 10:44:00 [facility] MAGNESIUM 2022-04-22 10:44:00 [facility] TSH 2022-04-22 10:44:00 [facility] T4 FREE 2022-04-22 10:44:[address] [facility] CT ABDOMEN/PELVIS WITH IV 2022-04-13 10:43:00 Yen, Alysia Schaeffer [facility] CONTRAST [facility] CT CHEST WITH IV CONTRAST 2022-04-13 10:43:00 Yen, Alysia Schaeffer [facility] COMPREHENSIVE METABOLIC 2022-03-11 15:57:00 Yen, Malena Schaeffer [facility] MAGNESIUM 2022-03-11 15:57:00 YenMalena [facility] CBC W/AUTO DIFF WITH 2022-03-11 15:57:00 Cindy, Malena Schaeffer [facility] 2D ECHO W/ DOPPLER 2022-03-11 13:37:55 Abigail Christy [facility] (CW/PW/COLOR) [facility] BASIC METABOLIC PANEL 2022-02-05 04:23:00 [facility] CBC (HEMOGRAM ONLY) 2022-02-05 04:23:00 [facility] MAGNESIUM 2022-02-05 04:23:00 Rohit [facility] MAGNESIUM 2022-02-04 15:24:00 Rohit [facility] POTASSIUM 2022-02-04 15:24:00 [facility] ECG 12-LEAD 2022-02-04 14:59[facility] 2022-02-04 14:59:11 Unknown, H[facility] ECG 12-LEAD 2022-02-04 14:59:11 Unknown, [facility] 2D ECHO W/ DOPPLER 2022-02-04 12:31:06 Rohit [facility] (CW/PW/COLOR) [facility] XR CHEST 1 VIEW PORTABLE / 2022-02-04 10:46:00 Rohit Rowena Castro [facility] BASIC METABOLIC PANEL 2022-02-04 04:28:00 [facility] CBC (HEMOGRAM ONLY) 2022-02-04 04:28:00 Rohit, [facility] MAGNESIUM 2022-02-04 04:28:00 [facility] HEPATIC FUNCTION PANEL 2022-02-04 04:28:00 [facility] BASIC METABOLIC PANEL 2022-02-04 00:14:00 [facility] MAGNESIUM 2022-02-04 00:14:00 [facility] BASIC METABOLIC PANEL 2022-02-03 18:22:00 Ciera Lamar [facility] TSH/FREE T4 IF INDICATED 2022-02-03 18:22:00 [facility] T4, FREE 2022-02-03 18:22:00 [facility] 2022-02-03 15:56:[address] [facility] XR CHEST 1 VIEW PORTABLE / 2022-02-03 15:42:[address] [facility] BLOOD GAS, ARTERIAL 2022-02-03 13:41:00 [facility] COMPREHENSIVE METABOLIC 2022-02-03 13:40:00 [facility] Giulia T I [facility] LACTIC ACID, ARTERIAL 2022-02-03 13:40:00 [facility] CBC W/PLT COUNT & AUTO 2022-02-03 13:40:00 Bouchra Giulia T [facility] MAGNESIUM 2022-02-03 13:40:00 Ciera Lamar [facility] CBC W/PLT COUNT & AUTO 2022-02-03 13:40:00 Giulia Shook [facility] CLOSURE, ATRIAL SEPTAL 2022-02-03 13:05:00 PaulineFlorentin [facility] DEFECT, TRANSCATHETER [facility] Ce nter RRL CRITICAL LABS 2022-02-03 11:07:18 Gibran [facility] (ABG,NA,K,H&H,GLUCOSE) Medical C enter BLOOD GAS, ARTERIAL 2022-02-03 11:07:18 PennyJob [facility] RRL CRITICAL LABS 2022-02-03 10:48:52 [facility] (ABG,NA,K,H&H,GLUCOSE) [facility] enter GLUCOSE-STAT LAB 2022-02-03 10:48:52 Pauline Florentin [facility] BLOOD GAS, ARTERIAL 2022-02-03 10:48:52 Pauline [facility] HGB/HCT (H&H) - STAT LAB 2022-02-03 10:48:52 Pauline Florentin I [facility] HEMOGLOBIN-STAT LAB 2022-02-03 10:48:52 Pauline [facility] PH, ARTERIAL 2022-02-03 10:48:52 [facility] SODIUM NA-STAT LAB 2022-02-03 10:48:52 Carpenter [facility] POTASSIUM-STAT LAB 2022-02-03 10:48:52 Carpenter [facility] ECG 12-LEAD 2022-02-03 10:21:25 Allan Cee [facility] ECG 12-LEAD 2022-02-03 10:21:25 Unknown, H[facility]7 [facility] ECG 12-LEAD 2022-02-03 10:21:25 Unknown, Hl7 [facility] POCT-ACT 2022-02-03 09:50:00 Pauline [facility] RRL CRITICAL LABS 2022-02-03 09:20:36 Gibran [facility] (ABG,NA,K,H&H,GLUCOSE) Medical C enter BLOOD GAS, ARTERIAL 2022-02-03 09:20:36 Gibran [facility] CLOSURE, ATRIAL SEPTAL 2022-02-03 08:03:00 Pauline [facility] DEFECT, TRANSCATHETER [facility] nter TYPE AND SCREEN, AUTOMATED 2022-02-03 07:34:00 Pauline [facility] ANTIBODY SCREEN 2022-02-03 07:34:00 Pauline [facility] BASIC METABOLIC PANEL 2022-02-03 07:26:00 Pauline [facility] COLOR-FLOW MAPPING 2022-02-03 07:25:08 Pauline [facility] CONT WAVE PULSED DOPPLER 2022-02-03 07:25:08 Pauline [facility] CBC (HEMOGRAM ONLY) 2022-02-03 06:33:00 Carpenter [facility] PT/APTT 2022-02-03 06:33:00 Pauline [facility] ECG 12-LEAD 2022-02-03 06:05:55 Unknown, Hl7 [facility] ECG 12-LEAD 2022-02-03 06:05:55 Pauline [facility] ECG 12-LEAD 2022-02-03 06:05:55 Unknown, Hl7 [facility] TRANSESOPHAGEAL ECHO 2022-02-03 06:00[facility] - SCAN 2022-02-03 00:00:00 Provider [facility] CBC W/AUTO DIFF WITH 2021-12-24 10:47:02 [facility] COMPREHENSIVE METABOLIC 2021-12-24 10:47:02 [facility] MAGNESIUM 2021-12-24 10:47:02 [facility] ACID FAST CULTURE \\T\\ SMEAR 2021-12-24 09:40:00 [facility] CT ABDOMEN/PELVIS WITH IV 2021 11:36:00 Alysia Shell [facility] CONTRAST [facility] CT CHEST WITH IV CONTRAST 2021 11:36:00 Alysia Shell [facility] TRANSESOPHAGEAL ECHO 2021-12-14 08:59:10 [facility] DOPPLER ARMS 2021-12-14 08:48:00 Florentin Carpenter [facility] BILATERAL [facility] CONT WAVE PULSED DOPPLER 2021-12-14 08:21:21 Jaelyn [facility] COLOR-FLOW MAPPING 2021-12-14 08:21:21 [facility]T [facility] & AUTO 2021-11-30 11:54:00 A[address] Christ[address] [facility] BASIC METABOLIC PANEL 2021-11-30 11:54:00 Jaelyn [facility] PROTHROMBIN TIME/INR 2021-11-30 11:54:00 Jaelyn [facility] MTHF REDUCTASE MUTATION 2021-11-30 11:54:[address] [facility] HC LAB PROTHROMBIN FACTOR II 2021-11-30 11:54:00 Antoni Christy [facility] FACTOR 5 LEIDEN PCR 2021-11-30 11:54:00 Abigail Christy [facility] (THROMBOTIC RISK) [facility] PLASMINOGEN ACTIVITY 2021-11-30 11:54:00 Jaelyn [facility] PROTEIN C ACTIVITY 2021-11-30 11:54:00 Jaelyn [facility] PROTEIN C ANTIGEN, TOTAL 2021-11-30 11:54:00 Jaelyn [facility] PROTEIN S ACTIVITY 2021-11-30 11:54:00 Jaelyn [facility] PROTEIN S ANTIGEN, TOTAL 2021-11-30 11:54:00 Jaelyn [facility] APTT 2021-11-30 11:54:00 [facility] HOMOCYSTEINE 2021-11-30 11:54:00 Jaelyn [facility] PHOSPHATIDYLSERINE ABS (IGG, 2021-11-30 11:54:00 Antoni Christy insidney [facility] IGM) [facility] CARDIOLIPIN ANTIBODIES, IGG 2021-11-30 11:54:00 Shala Christy ni [facility] AND IGM [facility] ANTITHROMBIN III 2021-11-30 11:54:[address] [facility] CBC W/PLT COUNT & AUTO 2021-11-30 11:54:[address] [facility] ECG 12-LEAD 2021-11-30 07:54:13 Jaelyn [facility] ECG 12-LEAD 2021-11-30 07:54:13 Unknown, Hl7 [facility] ECG 12-LEAD 2021-11-30 07:54:13 Unknown, Hl7 [facility] COMPREHENSIVE METABOLIC 2021-11-26 14:24:00 Malena Shell [facility] MAGNESIUM 2021-11-26 14:24:00 Malena Shell [facility] CBC W/AUTO DIFF WITH 2021-11-26 14:24:00 Malena Shell [facility] COMPLETE PFT WITHOUT 2021-11-24 10:15:40 [facility] BRONCHODILATOR Medicine SIX MINUTE WALK TEST 2021-11-24 00:00:00 [facility] ACID FAST CULTURE \\T\\ SMEAR 2021-11-16 11:03:43 [facility] MR LOWER EXTREMITY JOINT 2021-11-12 10:52:00 Yen, [facility] WITH & WITHOUT IV Medical C enter CONTRAST RIGHT COMPREHENSIVE METABOLIC 2021-10-29 16:00:00 Yesimone, Malena Schaeffer [facility] PANEL Medicine MAGNESIUM 2021-10-29 16:00:00 YeMalena nichols [facility] CBC W/AUTO DIFF WITH 2021-10-29 16:00:00 YeMalena nichols [facility] PLATELETS [facility] CBC W/PLT COUNT & AUTO 2021-09-24 08:12:00 Yen, Alysia Schaeffer CH I [facility] METABOLIC 2021-09-24 08:12:00 YenAlysia [facility] CBC W/PLT COUNT & AUTO 2021-09-24 08:12:00 YenAlysia CH I [facility] HEMOGLOBIN A1C 2021-09-15 10:20:[address] [facility] [address] ABDOMEN/PELVIS WITH & 2021-09-10 11:15:00 Yen, Alysia Schaeffer [facility] WITHOUT IV CONTRAST Medical Cent er CT CHEST WITH IV CONTRAST 2021-09-10 11:15:00 Yen, Alysia Schaeffer [facility] CBC W/PLT COUNT & AUTO 2021-09-03 09:09:00 YenAlysia CH I [facility] 2021-09-03 09:09:00 YenAlysia [facility] CBC W/PLT COUNT & AUTO 2021-09-03 09:09:00 YenAlysia CH I [facility] CBC W ABSOLUTE NEUTROPHIL 2021-09-03 06:24:47 Darnell [facility] COUNT Medicine COMPREHENSIVE METABOLIC 2021-09-03 06:24:47 [facility] PANEL Medicine TSH 2021-08-16 14:50:59 [facility] T4 FREE 2021-08-16 14:50:59 [facility] T3 2021-08-16 14:50:59 [facility] CORTISOL - AM SPECIMEN 2021-08-16 14:50:59 [facility] ACTH 2021-08-16 14:50:59 [facility] DHEA-SULFATE 2021-08-16 14:50:59 [facility] POTASSIUM 2021-08-16 14:50:59 [facility] RENIN ACTIVITY 2021-08-16 14:50:59 [facility] CBC W/AUTO DIFF WITH 2021-08-13 08:54:29 [facility] PLATELETS [facility] COMPREHENSIVE METABOLIC 2021-08-13 08:54:29 [facility] MAGNESIUM 2021-08-13 08:54:29 [facility] COMPREHENSIVE METABOLIC 2021-08-13 08:17:00 [facility] CBC W/AUTO DIFF WITH 2021-08-13 08:17:00 [facility] CBC W ABSOLUTE NEUTROPHIL 2021-08-12 14:32:48 [facility] 2D ECHO W/ DOPPLER 2021-08-03 14:19:49 Nicanor Manzano [facility] (CW/PW/COLOR) [facility] CTA BRAIN 2021-08-03 13:15:[address] [facility] CTA CAROTID 2021-08-03 13:15:[address] [facility] ECG 12-LEAD 2021-07-05 21:18:11 Unknown, Hl7 [facility] ECG 12-LEAD 2021-07-05 21:18:11 Unknown, Hl7 [facility] CBC W/PLT COUNT & AUTO 2021-07-05 21:12:00 Bryan Almanza [facility] BASIC METABOLIC PANEL 2021-07-05 21:12:00 [facility]INR 2021-07-05 21:12:00 [facility] LIPID PANEL 2021-07-05 21:12:[address] [facility] CBC W/PLT COUNT & AUTO 2021-07-05 21:12:00 Bryan Almanza [facility] MR BRAIN WITH & WITHOUT IV 2021-07-01 07:24:00 Yen, Alysia lara [facility] COMPREHENSIVE METABOLIC 2021-06-11 15:39:00 Yen, Malena Schaeffer [facility] MAGNESIUM 2021-06-11 15:39:00 Yen, Malena Schafefer [facility] CBC W/AUTO DIFF WITH 2021-06-11 15:39:00 Yen, Malena Schaeffer [facility] CT CHEST WITH IV CONTRAST 2021-06-03 11:15:00 Yen, Alysia Schaeffer [facility] CT ABDOMEN/PELVIS WITH IV 2021-06-03 11:15:00 Yen, Alysia Schaeffer [facility] AFB CULTURE + SMEAR 2021-04-14 11:57:[address] [facility] (NON-SPUTUM) [facility] BRONCHIAL CULTURE + GRAM 2021-04-14 11:57:04 MalcolmTamera [facility] STAIN [facility] FUNGUS CULTURE + SMEAR 2021-04-14 11:57:04 Tamera Fowler [facility] SPIN/CONCENTRATION CHARGE 2021-04-14 11:57:00 Tamera Fowler CH I [facility] CYTOLOGY 2021-04-14 11:52:00 Tamera Fowler [facility] CYTOLOGY REQUEST 2021-04-14 11:52:00 Tamera Fowler [facility] FLOW CYTOMETRY REQUISITION 2021-04-14 11:50:41 Tamera Fowler C HI [facility] FLOW CYTOMETRY 2021-04-14 11:50:00 MalcolmTamera little [facility] AFB CULTURE + SMEAR 2021-04-14 11:48:[address] [facility] (NON-SPUTUM) [facility] BRONCHIAL CULTURE + GRAM 2021-04-14 11:48:06 Malcolm, Dipaben [facility] STAIN [facility] FUNGUS CULTURE + SMEAR 2021-04-14 11:48:06 Tamera Fowler [facility] BODY FLUID CELL COUNT WITH 2021-04-14 11:48:06 Tamera Fowler [facility] DIFFERENTIAL [facility] MYCOBACTERIUM TB,PCR 2021-04-14 11:48:00 Tamera Fowler [facility] MISCELLANEOUS LAB ORDER 2021-04-14 11:48:00 Tamera Fowler [facility] SPIN/CONCENTRATION CHARGE 2021-04-14 11:48:00 Tamera Fowler CH [facility] BRONCHOSCOPY, WITH 2021-04-14 11:15:00 Tamera Fowler [facility] BRONCHOALVEOLAR LAVAGE [facility] enter T4 FREE 2021-03-22 17:00:17 [facility] TSH 2021-03-22 17:00:17 [facility] CORTISOL - AM SPECIMEN 2021-03-22 15:54:13 [facility] ACTH 2021-03-22 15:54:13 [facility] ALDOSTERONE/RENIN RATIO 2021-03-22 15:54:13 [facility] ALDOSTERONE 2021-03-22 15:54:13 [facility] DHEA-SULFATE 2021-03-22 15:54:13 [facility] METANEPHRINES, PHEOCHROMOCYT 2021-03-22 15:54:13 [facility] CT CHEST WITH IV CONTRAST 2021-03-04 10:34:00 Alysia Shell jacek [facility] CT ABDOMEN/PELVIS WITH IV 2021-03-04 10:34:00 Alysia Shell [facility] XR SPINE THORACIC 2 VIEWS 2021-02-19 11:20:00 Carl Parra [facility] ASSIGNMENT OF BENEFITS 2020-12-16 18:28:53 [facility] ASSIGNMENT OF BENEFITS 2020-10-09 21:48:23 [facility] ASSIGN[facility] OF BENEFITS 2020-10-07 17:44:33 [facility] POCT URINALYSIS DIPSTICK 2020-01-09 00:00:00 Skyler Lin [facility] ELECTROCARDIOGRAM COMPLETE 2019-12-30 19:20:00 Jeff Luciano [facility] Plan of Care Planned Activity Planned Date Details Comments Source Future Scheduled 2024-07-05 Lipid panel (procedure) [facility] Test 00:00:00 [code = 35689006] Medical Ce nter Future Scheduled 2024-07-05 Lipid panel (procedure) [facility] Test 00:00:00 [code = 22296468] Medical Ce nter Future Scheduled 2024-07-05 Lipid panel (procedure) [facility] Test 00:00:00 [code = 02741454] Medical Ce nter Future Scheduled 2024-07-05 Lipid panel (procedure) [facility] Test 00:00:00 [code = 12169711] Medical Ce nter Future Scheduled 2024-07-05 Lipid panel (procedure) [facility] Test 00:00:00 [code = 53766721] Medical Ce nter Future Scheduled 2024-07-05 Lipid panel (procedure) [facility] Test 00:00:00 [code = 05075410] Medical Ce nter Future Scheduled 2024-07-05 Lipid panel (procedure) [facility] Test 00:00:00 [code = 82878014] Medical Ce nter Future Scheduled 2024-07-05 Lipid panel (procedure) [facility] Test 00:00:00 [code = 22624310] Medical Ce nter Future Scheduled 2024-07-05 Lipid panel (procedure) [facility] Test 00:00:00 [code = 42057295] Medical Ce nter Future Scheduled 2024-07-05 Lipid panel (procedure) [facility] Test 00:00:00 [code = 76208892] Medical Ce nter Future Scheduled 2024-07-05 Lipid panel (procedure) [facility] Test 00:00:00 [code = 48971994] Medical Ce nter Future Scheduled 2024-07-05 Lipid panel (procedure) [facility] Test 00:00:00 [code = 73017251] Medical Ce nter Future Scheduled 2024-07-05 Lipid panel (procedure) [facility] Test 00:00:00 [code = 92051265] Medical Ce nter Future Scheduled 2022-10-07 Screening for malignant [facility] Test 00:00:00 neoplasm of breast Medical C enter (procedure) [code = 763967594] Future Scheduled 2022-10-07 Screening for malignant [facility] Test 00:00:00 neoplasm of breast Medical C enter (procedure) [code = 984688071] Future Scheduled 2022-10-07 Screening for malignant [facility] Test 00:00:00 neoplasm of breast Medical C enter (procedure) [code = 027016606] Future Scheduled 2022-10-07 Screening for malignant [facility] Test 00:00:00 neoplasm of breast Medical C enter (procedure) [code = 293336139] Future Scheduled 2022-10-07 Screening for malignant [facility] Test 00:00:00 neoplasm of breast Medical C enter (procedure) [code = 007215163] Future Scheduled 2022-10-07 Screening for malignant [facility] Test 00:00:00 neoplasm of breast Medical C enter (procedure) [code = 152272066] Future Scheduled 2022-10-07 Screening for malignant [facility] Test 00:00:00 neoplasm of breast Medical C enter (procedure) [code = 904218374] Future Scheduled 2022-10-07 Screening for malignant [facility] Test 00:00:00 neoplasm of breast Medical C enter (procedure) [code = 690090026] Future Scheduled 2022-10-07 Screening for malignant [facility] Test 00:00:00 neoplasm of breast Medical C enter (procedure) [code = 696252188] Future Scheduled 2022-10-07 Screening for malignant [facility] Test 00:00:00 neoplasm of breast Medical C enter (procedure) [code = 869496725] Future Scheduled 2022-10-07 Screening for malignant [facility] Test 00:00:00 neoplasm of breast Medical C enter (procedure) [code = 110272355] Future Scheduled 2022-10-07 Screening for malignant [facility] Test 00:00:00 neoplasm of breast Medical C enter (procedure) [code = 600021335] Future Scheduled 2022-10-07 Screening for malignant [facility] Test 00:00:00 neoplasm of breast Medical C enter (procedure) [code = 168139132] Future Scheduled 2022-08-15 COVID-19 VACCINE (#1) [facility] 18[facility]44[facility]45 [code = COVID-19 Hospital VACCINE (#1)] Future Scheduled 2022-08-15 Pneumococcal Vaccine: [facility] 18:44:45 Pediatrics (0 to 5 Hospital Years) and At-Risk Patients (6 to 64 Years) (1 - PCV) [code = Pneumococcal Vaccine: Pediatrics (0 to 5 Years) and At-Risk Patients (6 to 64 Years) (1 - PCV)] Future Scheduled 2022-08-15 Hepatitis C screening [facility] 18:44:45 (procedure) [code = Hospital 609494650] Future Scheduled 2022-08-15 SHINGLES VACCINES (1 of [facility] 18:44:45 2) [code = SHINGLES Hospital VACCINES (1 of 2)] Future Scheduled 2022-08-15 Screening for malignant [facility] 18:44:45 neoplasm of cervix Hospital (procedure) [code = 519674802] Future Scheduled 2022-08-15 BREAST CANCER SCREENING [facility] 18:44:45 [code = BREAST CANCER Hospit al SCREENING] Future Scheduled 2022-08-15 COLONOSCOPY SCREENING [facility] 18:44:45 [code = COLONOSCOPY Hospital SCREENING] Future Scheduled 2022-08-15 INFLUENZA VACCINE [code [facility] 18:44:45 = INFLUENZA VACCINE] Hospita l Future Scheduled 2022-08-14 MRI LUMBAR SPINE W WO Expected: [facility] Test 00:00:00 CONTRAST [code = 08/14/2022, of Medicine 36475-6] Expires: 07/16/2023 Future Scheduled 2022-08-01 Screening for malignant [facility] Test 10:44:07 neoplasm of colon of Medicin e (procedure) [code = 200655874] Future Scheduled 2022-08-01 TETANUS SHOT (ADULT) [facility] Test 10:44:07 [code = TETANUS SHOT of Medi cine (ADULT)] Future Scheduled 2022-08-01 Human immunodeficiency [facility] Test 10:44:07 virus screening of Medicine (procedure) [code = 566661490] Future Scheduled 2022-08-01 Hepatitis C screening [employer] Test 10:44:07 (procedure) [code = of Medic ine 031717940] Future Scheduled 2022-08-01 ZOSTER VACCINE (1 of 2) [facility] [employer] Test 10:44:07 [code = ZOSTER VACCINE of Me dicine (1 of 2)] Future Scheduled 2022-08-01 Screening for malignant [facility] Test 10:44:07 neoplasm of cervix of Medici ne (procedure) [code = 824577165] Future Scheduled 2022-08-01 Screening for malignant [facility] Test 10:44:07 neoplasm of lung of Medicine (procedure) [code = 308212663] Future Scheduled 2022-08-01 COVID-19 Vaccine (3 - [facility] [employer] [employer] Test 10:44:07 Mixed Product risk of Medici ne series) [code = COVID-19 Vaccine (3 - Mixed Product risk series)] Future Scheduled 2022-08-01 Screening for malignant [facility] [employer] Test 10:44:07 neoplasm of breast of Medici ne (procedure) [code = 081874930] Future Scheduled 2022-08-01 Pneumococcal Combined [employer] Test 10:44:07 (2 - PCV) [code = of Medicin e Pneumococcal Combined (2 - PCV)] Future Scheduled 2022-08-01 FLU VACCINE > 6 MONTHS [facility] [employer] [employer] Test 10:44:07 [code = FLU VACCINE > 6 of M edicine MONTHS] Future Scheduled 2022-08-01 COMPLETE PFT WITHOUT 1 Occurrences [employer] Test 10:40:24 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 = starting of Me dicine 80462] 08/01/2022 until 08/02/2023 Future Scheduled 2022-07-19 Screening for malignant [facility] Test 08:48:51 neoplasm of colon of Medicin e (procedure) [code = 127353754] Future Scheduled 2022-07-19 TETANUS SHOT (ADULT) [facility] [employer] Test 08:48:51 [code = TETANUS SHOT of Medi cine (ADULT)] Future Scheduled 2022-07-19 Human immunodeficiency [facility] [employer] [employer] Test 08:48:51 virus screening of Medicine (procedure) [code = 370632223] Future Scheduled 2022-07-19 Hepatitis C screening [employer] Test 08:48:51 (procedure) [code = of Medic ine 473877973] Future Scheduled 2022-07-19 ZOSTER VACCINE (1 of 2) [facility] Test 08:48:51 [code = ZOSTER VACCINE of Me dicine (1 of 2)] Future Scheduled 2022-07-19 Screening for malignant [facility] Test 08:48:51 neoplasm of cervix of Medici ne (procedure) [code = 144754022] Future Scheduled 2022-07-19 Screening for malignant [facility] Test 08:48:51 neoplasm of lung of Medicine (procedure) [code = 824017431] Future Scheduled 2022-07-19 COVID-19 Vaccine (3 - [facility] [employer] Test 08:48:51 Mixed Product risk of Medici ne series) [code = COVID-19 Vaccine (3 - Mixed Product risk series)] Future Scheduled 2022-07-19 Screening for malignant [facility] Test 08:48:51 neoplasm of breast of Medici ne (procedure) [code = 113292049] Future Scheduled 2022-07-19 Pneumococcal Combined [employer] Test 08:48:51 (2 - PCV) [code = of Medicin e Pneumococcal Combined (2 - PCV)] Future Scheduled 2022-07-19 FLU [facility]INE > 6 MONTHS [facility] 08:48:51 [code = FLU VACCINE > 6 of M edicine MONTHS] Future Scheduled 2022-07-15 TSH [code = 91635-6] Ordered: [facility] Test 12:30:17 07/15/2022 of Medicine Future Scheduled 2022-07-15 T4 FREE [code = 3024-7] Ordered: [facility] Test 12:30:17 07/15/2022 of Medicine Future Scheduled 2022-07-15 CBC W/AUTO DIFF WITH Ordered: [facility] Test 12:30:17 PLATELETS [code = 07/15/2022 of Medicin e 29659-4] Future Scheduled 2022-07-15 COMPREHENSIVE METABOLIC Ordered: [facility] Test 12:30:17 PANEL [code = 11483-3] 07/15/2022 of Me dicine Future Scheduled 2022-07-15 MAGNESIUM [code = Ordered: [facility] Test 12:30:17 86493-4] 07/15/2022 of Medicine Future Scheduled 2022-07-[address] [facility] Test 00:00:00 Counseling and Medical Cente r Screening (12+) [code = Tobacco Cessation Counseling and Screening (12+)] Future Scheduled 2022-07-[address] [facility] Test 00:00:00 Counseling and Medical Cente r Screening (12+) [code = Tobacco Cessation Counseling and Screening (12+)] Future Scheduled 2022-07-[address] [facility] Test 00:00:00 Counseling and Medical Cente r Screening (12+) [code = Tobacco Cessation Counseling and Screening (12+)] Future Scheduled 2022-07-[address] [facility] Test 00:00:00 Counseling and Medical Cente r Screening (12+) [code = Tobacco Cessation Counseling and Screening (12+)] Future Scheduled 2022-07-[address] [facility] Test 00:00:00 Counseling and Medical Cente r Screening (12+) [code = Tobacco Cessation Counseling and Screening (12+)] Future Scheduled 2022-07-[address] [facility] Test 00:00:00 Counseling and Medical Cente r Screening (12+) [code = Tobacco Cessation Counseling and Screening (12+)] Future Scheduled 2022-07-[address] [facility] Test 00:00:00 Counseling and Medical Cente r Screening (12+) [code = Tobacco Cessation Counseling and Screening (12+)] Future Scheduled 2022-07-[address] [facility] Test 00:00:00 Counseling and Medical Cente r Screening (12+) [code = Tobacco Cessation Counseling and Screening (12+)] Future Scheduled 2022-07-[address] [facility] Test 00:00:00 Counseling and Medical Cente r Screening (12+) [code = Tobacco Cessation Counseling and Screening (12+)] Future Scheduled 2022-06-03 CT CHEST W CONTRAST 1 Occurrences [facility] Test 10:51:51 [code = 84452-2] starting of Medicine 06/03/2022 until 06/04/2023 Future Scheduled 2022-06-03 CT ABDOMEN PELVIS W 1 Occurrences [facility] Test 10:51:51 CONTRAST [code = starting of Medicine 34876-3] 06/03/2022 until 06/04/2023 Future Scheduled 2022-06-03 Screening for malignant [facility] Test 10:45:01 neoplasm of colon of Medicin e (procedure) [code = 789745363] Future Scheduled 2022-06-03 TETANUS SHOT (ADULT) [facility] Test 10:45:01 [code = TETANUS SHOT of Medi cine (ADULT)] Future Scheduled 2022-06-03 Human immunodeficiency [facility] Test 10:45:01 virus screening of Medicine (procedure) [code = 423635366] Future Scheduled 2022-06-03 Hepatitis C screening Ba [facility] Test 10:45:01 (procedure) [code = of Medic ine 151523785] Future Scheduled 2022-06-03 ZOSTER VACCINE (1 of 2) [facility] Test 10:45:01 [code = ZOSTER VACCINE of Me dicine (1 of 2)] Future Scheduled 2022-06-03 Screening for malignant [facility] Test 10:45:01 neoplasm of cervix of Medici ne (procedure) [code = 391659346] Future Scheduled 2022-06-03 Screening for malignant [facility] Test 10:45:01 neoplasm of lung of Medicine (procedure) [code = 380663612] Future Scheduled 2022-06-03 COVID-19 Vaccine (3 - [facility] Test 10:45:01 Mixed Product risk of Medici ne series) [code = COVID-19 Vaccine (3 - Mixed Product risk series)] Future Scheduled 2022-06-03 Screening for malignant [facility] Test 10:45:01 neoplasm of breast of Medici ne (procedure) [code = 228883226] Future Scheduled 2022-06-03 Pneumococcal Combined [facility] Test 10:45:01 (2 - PCV) [code = of Medicin e Pneumococcal Combined (2 - PCV)] Future Scheduled 2022-06-03 CBC W/AUTO DIFF WITH Expected: [facility] Test 00:00:00 PLATELETS [code = 06/03/2022 of Medicin e 80853-5] (Approximate), Expires: 10/20/2022 Future Scheduled 2022-06-03 COMPREHENSIVE METABOLIC Expected: [facility] Test 00:00:00 PANEL [code = 05829-4] 06/03/2022 of Me dicine (Approximate), Expires: 10/20/2022 Future Scheduled 2022-06-03 MAGNESIUM [code = Expected: [facility] Test 00:00:00 57694-5] 06/03/2022 of Medicine (Approximate), Expires: 10/20/2022 Future Scheduled 2022-06-03 TSH [code = 38407-0] Expected: [facility] Test 00:00:00 06/03/2022 of Medicine (Approximate), Expires: 10/20/2022 Future Scheduled 2022-05-[address] [facility] Test 00:00:00 0-64 YRS (2 - PCV) Medical C enter [code = PNEUMOCOCCAL VACCINE 0-64 YRS (2 - PCV)] Future Scheduled 2022-05-[address] [facility] Test 00:00:00 0-64 YRS (2 - PCV) Medical C enter [code = PNEUMOCOCCAL VACCINE 0-64 YRS (2 - PCV)] Future Scheduled 2022-05-[address] [facility] Test 00:00:00 0-64 YRS (2 - PCV) Medical C enter [code = PNEUMOCOCCAL VACCINE 0-64 YRS (2 - PCV)] Future Scheduled 2022-05-[address] [facility] Test 00:00:00 0-64 YRS (2 - PCV) Medical C enter [code = PNEUMOCOCCAL VACCINE 0-64 YRS (2 - PCV)] Future Scheduled 2022-05-[address] [facility] Test 00:00:00 0-64 YRS (2 - PCV) Medical C enter [code = PNEUMOCOCCAL VACCINE 0-64 YRS (2 - PCV)] Future Scheduled 2022-05-[address] [facility] Test 00:00:00 0-64 YRS (2 - PCV) Medical C enter [code = PNEUMOCOCCAL VACCINE 0-64 YRS (2 - PCV)] Future Scheduled 2022-05-[address] [facility] Test 00:00:00 0-64 YRS (2 - PCV) Medical C enter [code = PNEUMOCOCCAL VACCINE 0-64 YRS (2 - PCV)] Future Scheduled 2022-05-[address] [facility] Test 00:00:00 0-64 YRS (2 - PCV) Medical C enter [code = PNEUMOCOCCAL VACCINE 0-64 YRS (2 - PCV)] Future Scheduled 2022-05-[address] [facility] Test 00:00:00 0-64 YRS (2 - PCV) Medical C enter [code = PNEUMOCOCCAL VACCINE 0-64 YRS (2 - PCV)] Future Scheduled 2022-05-[address] [facility] Test 00:00:00 0-64 YRS (2 - PCV) Medical C enter [code = PNEUMOCOCCAL VACCINE 0-64 YRS (2 - PCV)] Future Scheduled 2022-04-23 Screening for malignant [facility] Test 17:27:21 neoplasm of colon of Medicin e (procedure) [code = 490110392] Future Scheduled 2022-04-23 TETANUS SHOT (ADULT) [facility] Test 17:27:21 [code = TETANUS SHOT of Medi cine (ADULT)] Future Scheduled 2022-04-23 Human immunodeficiency [facility] Test 17:27:21 virus screening of Medicine (procedure) [code = 539980935] Future Scheduled 2022-04-23 Hepatitis C screening [facility] Test 17:27:21 (procedure) [code = of Medic ine 328477114] Future Scheduled 2022-04-23 ZOSTER VACCINE (1 of 2) [facility] Test 17:27:21 [code = ZOSTER VACCINE of Me dicine (1 of 2)] Future Scheduled 2022-04-23 Screening for malignant [facility] Test 17:27:21 neoplasm of cervix of Medici ne (procedure) [code = 484930659] Future Scheduled 2022-04-23 Screening for malignant [facility] Test 17:27:21 neoplasm of lung of Medicine (procedure) [code = 559244847] Future Scheduled 2022-04-23 COVID-19 Vaccine (3 - [facility] Test 17:27:21 Mixed Product risk of Medici ne series) [code = COVID-19 Vaccine (3 - Mixed Product risk series)] Future Scheduled 2022-04-23 Screening for malignant [facility] Test 17:27:21 neoplasm of breast of Medici ne (procedure) [code = 817590109] Future Scheduled 2022-04-23 Pneumococcal Combined [employer] Test 17:27:21 (2 - PCV) [code = of Medicin e Pneumococcal Combined (2 - PCV)] Future Scheduled 2022-04-15 CT CHEST W CONTRAST Expected: [employer] Test 00:00:00 [code = 12322-3] 04/15/2022, of Medicine Expires: 03/11/2023 Future Scheduled 2022-04-15 CT ABDOMEN PELVIS W Expected: [employer] Test 00:00:00 CONTRAST [code = 04/15/2022 of Medicine 27807-0] (Approximate), Expires: 03/11/2023 Future Scheduled 2022-04-15 CBC W/AUTO DIFF WITH Expected: [facility] [employer] Test 00:00:00 PLATELETS [code = 04/15/2022 of Medicin e 70284-8] (Approximate), Expires: 09/09/2022 Future Scheduled 2022-04-15 COMPREHENSIVE METABOLIC Expected: [facility] [employer] Test 00:00:00 PANEL [code = 28276-6] 04/15/2022 of Me dicine (Approximate), Expires: 09/09/2022 Future Scheduled 2022-04-15 MAGNESIUM [code = Expected: [facility] [employer] Test 00:00:00 37030-7] 04/15/2022 of Medicine (Approximate), Expires: 09/09/2022 Future Scheduled 2022-04-14 Screening for malignant [facility] Test 11:06:05 neoplasm of colon of Medicin e (procedure) [code = 838116309] Future Scheduled 2022-04-14 TETANUS SHOT (ADULT) [facility] Test 11:06:05 [code = TETANUS SHOT of Medi cine (ADULT)] Future Scheduled 2022-04-14 Human immunodeficiency [facility] [employer] Test 11:06:05 virus screening of Medicine (procedure) [code = 899090861] Future Scheduled 2022-04-14 Hepatitis C screening [facility] Test 11:06:05 (procedure) [code = of Medic ine 751292965] Future Scheduled 2022-04-14 ZOSTER VACCINE (1 of 2) [facility] [employer] Test 11:06:05 [code = ZOSTER VACCINE of Me dicine (1 of 2)] Future Scheduled 2022-04-14 Screening for malignant [facility] Test 11:06:05 neoplasm of cervix of Medici ne (procedure) [code = 522954282] Future Scheduled 2022-04-14 Screening for malignant [facility] [employer] Test 11:06:05 neoplasm of lung of Medicine (procedure) [code = 590029261] Future Scheduled 2022-04-14 COVID-19 [facility] - [facility] 11:06:05 Mixed Product risk of Medici ne series) [code = COVID-19 Vaccine (3 - Mixed Product risk series)] Future Scheduled 2022-04-14 Screening for malignant [facility] Test 11:06:05 neoplasm of breast of Medici ne (procedure) [code = 899934529] Future Scheduled 2022-04-14 Pneumococcal Combined [facility] [employer] Test 11:06:05 (2 - PCV) [code = of Medicin e Pneumococcal Combined (2 - PCV)] Future Scheduled 2022-04-[address] [facility] Test 00:00:00 (12+) [code = Medical Center DEPRESSION SCREENING (12+)] Future Scheduled 2022-04-[address] [facility] Test 00:00:00 (12+) [code = Medical Center DEPRESSION SCREENING (12+)] Future Scheduled 2022-04-[address] [facility] Test 00:00:00 (12+) [code = Medical Center DEPRESSION SCREENING (12+)] Future Scheduled 2022-04-[address] [facility] Test 00:00:00 (12+) [code = Medical Center DEPRESSION SCREENING (12+)] Future Scheduled 2022-04-[address] [facility] Test 00:00:00 (12+) [code = Medical Center DEPRESSION SCREENING (12+)] Future Scheduled 2022-04-[address] [facility] Test 00:00:00 (12+) [code = Medical Center DEPRESSION SCREENING (12+)] Future Scheduled 2022-04-[address] [facility] Test 00:00:00 (12+) [code = Medical Center DEPRESSION SCREENING (12+)] Future Scheduled 2022-04-[address] [facility] Test 00:00:00 (12+) [code = Medical Center DEPRESSION SCREENING (12+)] Future Scheduled 2022-03-15 Screening for malignant [facility] Test 16:53:51 neoplasm of colon of Medicin e (procedure) [code = 867536362] Future Scheduled 2022-03-15 TETANUS SHOT (ADULT) [facility] [employer] Test 16:53:51 [code = TETANUS SHOT of Medi cine (ADULT)] Future Scheduled 2022-03-15 Hepatitis C screening [facility] Test 16:53:51 (procedure) [code = of Medic ine 816304748] Future Scheduled 2022-03-15 Human immunodeficiency [facility] [employer] Test 16:53:51 virus screening of Medicine (procedure) [code = 487396492] Future Scheduled 2022-03-15 ZOSTER VACCINE (1 of 2) [facility] [employer] Test 16:53:51 [code = ZOSTER VACCINE of Me dicine (1 of 2)] Future Scheduled 2022-03-15 Screening for malignant [facility] [employer] Test 16:53:51 neoplasm of cervix of Medici ne (procedure) [code = 978959464] Future Scheduled 2022-03-15 Screening for malignant [facility] [employer] Test 16:53:51 neoplasm of lung of Medicine (procedure) [code = 018762069] Future Scheduled 2022-03-15 COVID-19 Vaccine (3 - [employer] Test 16:53:51 Mixed Product risk of Medici ne series) [code = COVID-19 Vaccine (3 - Mixed Product risk series)] Future Scheduled 2022-03-15 Screening for malignant [facility] [employer] Test 16:53:51 neoplasm of breast of Medici ne (procedure) [code = 682242292] Future Scheduled 2022-03-15 [facility] 6 MON[facility] 16:53:51 [code = FLU VACCINE > 6 of M edicine MONTHS] Future Scheduled 2022-03-15 Pneumococcal Combined [facility] Test 16:53:51 (2 - PCV) [code = of Medicin e Pneumococcal Combined (2 - PCV)] Future Scheduled 2022-03-11 Screening for malignant [facility] Test 09:49:20 neoplasm of colon of Medicin e (procedure) [code = 998456706] Future Scheduled 2022-03-11 TETANUS SHOT (ADULT) [facility] [employer] Test 09:49:20 [code = TETANUS SHOT of Medi cine (ADULT)] Future Scheduled 2022-03-11 Hepatitis C screening [facility] Test 09:49:20 (procedure) [code = of Medic ine 483751477] Future Scheduled 2022-03-11 [facility] 09:49:20 virus screening of Medicine (procedure) [code = 065172109] Future Scheduled 2022-03-11 ZOSTER VACCINE (1 of 2) [facility] [employer] Test 09:49:20 [code = ZOSTER VACCINE of Me dicine (1 of 2)] Future Scheduled 2022-03-11 Screening for malignant [facility] Test 09:49:20 neoplasm of cervix of Medici ne (procedure) [code = 044939491] Future Scheduled 2022-03-11 Screening for malignant [facility] [employer] Test 09:49:20 neoplasm of lung of Medicine (procedure) [code = 667155794] Future Scheduled 2022-03-11 COVID-19 Vaccine (3 - [employer] Test 09:49:20 Mixed Product risk of Medici ne series) [code = COVID-19 Vaccine (3 - Mixed Product risk series)] Future Scheduled 2022-03-11 Screening for malignant [employer] Test 09:49:20 neoplasm of breast of Medici ne (procedure) [code = 308606809] Future Scheduled 2022-03-11 FLU VACCINE > 6 MONTHS [employer] Test 09:49:20 [code = FLU VACCINE > 6 of M edicine MONTHS] Future Scheduled 2022-03-11 Pneumococcal Combined [employer] Test 09:49:20 (2 - PCV) [code = of Medicin e Pneumococcal Combined (2 - PCV)] Future Scheduled 2022-03-11 TSH [code = 28282-7] [facility] [employer] Test 09:38:39 of Medicine Future Scheduled 2022-02-18 Screening for malignant [facility] [employer] Test 11:11:53 neoplasm of colon of Medicin e (procedure) [code = 597023086] Future Scheduled 2022-02-18 TETANUS SHOT (ADULT) [facility] [employer] Test 11:11:53 [code = TETANUS SHOT of Medi cine (ADULT)] Future Scheduled 2022-02-18 Hepatitis C screening [facility] [employer] Test 11:11:53 (procedure) [code = of Medic ine 884468087] Future Scheduled 2022-02-18 [facility] Test 11:11:53 virus screening of Medicine (procedure) [code = 786887910] Future Scheduled 2022-02-18 ZOSTER VACCINE (1 of 2) [facility] [employer] Test 11:11:53 [code = ZOSTER VACCINE of Me dicine (1 of 2)] Future Scheduled 2022-02-18 Screening for malignant [facility] [employer] Test 11:11:53 neoplasm of cervix of Medici ne (procedure) [code = 672116327] Future Scheduled 2022-02-18 Screening for malignant [employer] Test 11:11:53 neoplasm of lung of Medicine (procedure) [code = 540087335] Future Scheduled 2022-02-18 COVID-19 Vaccine (3 - [employer] [facility] 11:11:53 Mixed Product risk of Medici ne series) [code = COVID-19 Vaccine (3 - Mixed Product risk series)] Future Scheduled 2022-02-18 Screening for malignant [facility] [employer] Test 11:11:53 neoplasm of breast of Medici ne (procedure) [code = 394186800] Future Scheduled 2022-02-18 FLU VACCINE > 6 MONTHS [employer] Test 11:11:53 [code = FLU VACCINE > 6 of M edicine MONTHS] Future Scheduled 2022-02-18 Pneumococcal Combined [employer] Test 11:11:53 (2 - PCV) [code = of Medicin e Pneumococcal Combined (2 - PCV)] Future Scheduled 2022-01-27 Screening for malignant [employer] Test 10:00:42 neoplasm of colon of Medicin e (procedure) [code = 013085959] Future Scheduled 2022-01-27 TETANUS SHOT (ADULT) [facility] [employer] Test 10:00:42 [code = TETANUS SHOT of Medi cine (ADULT)] Future Scheduled 2022-01-27 Hepatitis C screening [facility] [employer] Test 10:00:42 (procedure) [code = of Medic ine 956622363] Future Scheduled 2022-01-27 [facility] Test 10:00:42 virus screening of Medicine (procedure) [code = 887969549] Future Scheduled 2022-01-27 ZOSTER VACCINE (1 of 2) [employer] Test 10:00:42 [code = ZOSTER VACCINE of Wa dicine (1 of 2)] Future Scheduled 2022-01-27 Screening for malignant [facility] [employer] Test 10:00:42 neoplasm of cervix of Medici ne (procedure) [code = 575993007] Future Scheduled 2022-01-27 Screening for malignant [facility] [employer] Test 10:00:42 neoplasm of lung of Medicine (procedure) [code = 233617059] Future Scheduled 2022-01-27 COVID-19 Vaccine (3 - [employer] Test 10:00:42 Mixed Product risk of Medici ne series) [code = COVID-19 Vaccine (3 - Mixed Product risk series)] Future Scheduled 2022-01-27 Screening for malignant [employer] Test 10:00:42 neoplasm of breast of Medici ne (procedure) [code = 517459222] Future Scheduled 2022-01-27 FLU VACCINE > 6 MONTHS [employer] Test 10:00:42 [code = FLU VACCINE > 6 of M edicine MONTHS] Future Scheduled 2022-01-27 Pneumococcal Combined [employer] Test 10:00:42 (2 - PCV) [code = of Medicin e Pneumococcal Combined (2 - PCV)] Future Scheduled 2022-01-27 ACID FAST CULTURE & Ordered: [facility] or [place] Test 09:52:06 SMEAR [code = NOCPT] 01/27/2022 of Medi cine Future Scheduled 2022-01-21 Screening for malignant [facility] [employer] Test 13:13:35 neoplasm of colon of Medicin e (procedure) [code = 682380986] Future Scheduled 2022-01-21 TETANUS SHOT (ADULT) [facility] [employer] Test 13:13:35 [code = TETANUS SHOT of Medi cine (ADULT)] Future Scheduled 2022-01-21 Hepatitis C screening [facility] [employer] Test 13:13:35 (procedure) [code = of Medic ine 924130780] Future Scheduled 2022-01-21 [facility] Test 13:13:35 virus screening of Medicine (procedure) [code = 117700606] Future Scheduled 2022-01-21 ZOSTER VACCINE (1 of 2) [facility] [employer] Test 13:13:35 [code = ZOSTER VACCINE of Wa dicine (1 of 2)] Future Scheduled 2022-01-21 Screening for malignant [facility] [employer] Test 13:13:35 neoplasm of cervix of Medici ne (procedure) [code = 467106791] Future Scheduled 2022-01-21 Screening for malignant [facility] [employer] Test 13:13:35 neoplasm of lung of Medicine (procedure) [code = 379211457] Future Scheduled 2022-01-21 COVID-19 Vaccine (3 - [facility] [employer] Test 13:13:35 Mixed Product risk of Medici ne series) [code = COVID-19 Vaccine (3 - Mixed Product risk series)] Future Scheduled 2022-01-21 Screening for malignant [facility] [employer] Test 13:13:35 neoplasm of breast of Medici ne (procedure) [code = 706344371] Future Scheduled 2022-01-21 FLU VACCINE > 6 MONTHS [employer] Test 13:13:35 [code = FLU VACCINE > 6 of M edicine MONTHS] Future Scheduled 2022-01-21 Pneumococcal Combined [employer] Test 13:13:35 (2 - PCV) [code = of Medicin e Pneumococcal Combined (2 - PCV)] Future Scheduled 2022-01-21 Screening for malignant [employer] Test 13:13:35 neoplasm of colon of Medicin e (procedure) [code = 627702134] Future Scheduled 2022-01-21 TETANUS SHOT (ADULT) [facility] [employer] Test 13:13:35 [code = TETANUS SHOT of Medi cine (ADULT)] Future Scheduled 2022-01-21 Hepatitis C screening [employer] Test 13:13:35 (procedure) [code = of Medic ine 003010009] Future Scheduled 2022-01-21 Human immunodeficiency [facility] [employer] Test 13:13:35 virus screening of Medicine (procedure) [code = 796835600] Future Scheduled 2022-01-21 ZOSTER VACCINE (1 of 2) [facility] [employer] Test 13:13:35 [code = ZOSTER VACCINE of Me dicine (1 of 2)] Future Scheduled 2022-01-21 Screening for malignant [employer] Test 13:13:35 neoplasm of cervix of Medici ne (procedure) [code = 752643239] Future Scheduled 2022-01-21 Screening for malignant [employer] Test 13:13:35 neoplasm of lung of Medicine (procedure) [code = 668798599] Future Scheduled 2022-01-21 COVID-19 Vaccine (3 - [employer] Test 13:13:35 Mixed Product risk of Medici ne series) [code = COVID-19 Vaccine (3 - Mixed Product risk series)] Future Scheduled 2022-01-21 Screening for malignant [facility] [employer] Test 13:13:35 neoplasm of breast of Medici ne (procedure) [code = 209266370] Future Scheduled 2022-01-21 FLU VACCINE > 6 MONTHS [employer] Test 13:13:35 [code = FLU VACCINE > 6 of M edicine MONTHS] Future Scheduled 2022-01-21 Pneumococcal Combined [employer] [facility] 13:13:35 (2 - PCV) [code = of Medicin e Pneumococcal Combined (2 - PCV)] Future Scheduled 2022-01-12 Screening for malignant [facility] [employer] Test 10:50:01 neoplasm of colon of Medicin e (procedure) [code = 013483632] Future Scheduled 2022-01-12 TETANUS SHOT (ADULT) [facility] [employer] Test 10:50:01 [code = TETANUS SHOT of Medi cine (ADULT)] Future Scheduled 2022-01-12 Hepatitis C screening [employer] Test 10:50:01 (procedure) [code = of Medic ine 820787504] Future Scheduled 2022-01-12 [facility] Test 10:50:01 virus screening of Medicine (procedure) [code = 059014802] Future Scheduled 2022-01-12 ZOSTER VACCINE (1 of 2) [facility] [employer] Test 10:50:01 [code = ZOSTER VACCINE of Me dicine (1 of 2)] Future Scheduled 2022-01-12 Screening for malignant [facility] [employer] Test 10:50:01 neoplasm of cervix of Medici ne (procedure) [code = 285305493] Future Scheduled 2022-01-12 Screening for malignant [facility] [employer] Test 10:50:01 neoplasm of lung of Medicine (procedure) [code = 379680769] Future Scheduled 2022-01-12 COVID-19 Vaccine (3 - [facility] Test 10:50:01 Mixed Product risk of Medici ne series) [code = COVID-19 Vaccine (3 - Mixed Product risk series)] Future Scheduled 2022-01-12 Screening for malignant [facility] [employer] Test 10:50:01 neoplasm of breast of Medici ne (procedure) [code = 730602107] Future Scheduled 2022-01-12 FLU [facility]INE > 6 MONTHS [facility] 10:50:01 [code = FLU VACCINE > 6 of M edicine MONTHS] Future Scheduled 2022-01-12 Pneumococcal Combined [facility] Test 10:50:01 (2 - PCV) [code = of Medicin e Pneumococcal Combined (2 - PCV)] Future Scheduled 2022-01-11 Screening for malignant [facility] [employer] Test 11:32:47 neoplasm of colon of Medicin e (procedure) [code = 720287359] Future Scheduled 2022-01-11 TETANUS SHOT (ADULT) [facility] [employer] Test 11:32:47 [code = TETANUS SHOT of Medi cine (ADULT)] Future Scheduled 2022-01-11 Hepatitis C screening [facility] Test 11:32:47 (procedure) [code = of Medic ine 897071948] Future Scheduled 2022-01-11 [facility] Test 11:32:47 virus screening of Medicine (procedure) [code = 816859261] Future Scheduled 2022-01-11 ZOSTER VACCINE (1 of 2) [facility] [employer] Test 11:32:47 [code = ZOSTER VACCINE of Me dicine (1 of 2)] Future Scheduled 2022-01-11 Screening for malignant [facility] Test 11:32:47 neoplasm of cervix of Medici ne (procedure) [code = 330428500] Future Scheduled 2022-01-11 Screening for malignant [facility] Test 11:32:47 neoplasm of lung of Medicine (procedure) [code = 718263771] Future Scheduled 2022-01-11 COVID-19 Vaccine (3 - [facility] Test 11:32:47 Mixed Product risk of Medici ne series) [code = COVID-19 Vaccine (3 - Mixed Product risk series)] Future Scheduled 2022-01-11 Screening for malignant [facility] Test 11:32:47 neoplasm of breast of Medici ne (procedure) [code = 921253529] Future Scheduled 2022-01-11 FLU VACCINE > 6 MONTHS B [facility] Test 11:32:47 [code = FLU VACCINE > 6 of M edicine MONTHS] Future Scheduled 2022-01-11 Pneumococcal Combined [facility] Test 11:32:47 (2 - PCV) [code = of Medicin e Pneumococcal Combined (2 - PCV)] Future Scheduled 2022-01-03 BREAST CANCER SCREENING [facility] 00:04:07 [code = BREAST CANCER Hospit al SCREENING] Future Scheduled 2022-01-03 [facility]ING [facility]07 [code = COLONOSCOPY Hospital SCREENING] Future Scheduled 2022-01-03 INFLUENZA VACCINE [code [facility] 00:04:07 = INFLUENZA VACCINE] Hospita l Future Scheduled 2022-01-03 HEPATITIS B VACCINES (1 [facility] 00:04:07 of 3 - 3-dose series) [...] [facility] Test 00:04:07 (procedure) [code = Hospital 621551712] Future Scheduled 2022-01-03 SHINGLES VACCINES (1 of [facility] 00:04:07 2) [code = SHINGLES Hospital VACCINES (1 of 2)] Future Scheduled 2022-01-03 Screening for malignant [facility] 00:04:07 neoplasm of cervix Hospital (procedure) [code = 836513955] Future Scheduled 2022-01-03 BREAST CANCER SCREENING [facility] 00:04:07 [code = BREAST CANCER Hospit al SCREENING] Future Scheduled 2022-01-03 [facility]ING [facility] 00:04:07 [code = COLONOSCOPY Hospital SCREENING] Future Scheduled 2022-01-03 INFLUENZA VACCINE [code [facility] 00:04:07 = INFLUENZA VACCINE] Hospita l Future Scheduled 2022-01-03 HEPATITIS B VACCINES (1 [facility] 00:04:07 of 3 - 3-dose series) [...] [facility] Test 00:04:07 (procedure) [code = Hospital 405717815] Future Scheduled 2022-01-03 SHINGLES VACCINES (1 of [facility] 00:04:07 2) [code = SHINGLES Hospital VACCINES (1 of 2)] Future Scheduled 2022-01-03 Screening for malignant [facility] 00:04:07 neoplasm of cervix Hospital (procedure) [code = 941368626] Future Scheduled 2022-01-03 BREAST CANCER SCREENING [facility] 00:04:07 [code = BREAST CANCER Hospit al SCREENING] Future Scheduled 2022-01-03 [facility]ING [facility]:04:07 [code = COLONOSCOPY Hospital SCREENING] Future Scheduled 2022-01-03 INFLUENZA VACCINE [code [facility] 00:04:07 = INFLUENZA VACCINE] Hospita l Future Scheduled 2022-01-03 HEPATITIS B VACCINES (1 [facility] 00:04:07 of 3 - 3-dose series) [...] [facility] Test 00:04:07 (procedure) [code = Hospital 572595021] Future Scheduled 2022-01-03 SHINGLES VACCINES (1 of [facility] 00:04:07 2) [code = SHINGLES Hospital VACCINES (1 of 2)] Future Scheduled 2022-01-03 Screening for malignant [facility] 00:04:07 neoplasm of cervix Hospital (procedure) [code = 017079429] Future Scheduled 2022-01-03 BREAST CANCER SCREENING [facility] 00:04:07 [code = BREAST CANCER Hospit al SCREENING] Future Scheduled 2022-01-03 [facility]ING [facility] 00:04:07 [code = COLONOSCOPY Hospital SCREENING] Future Scheduled 2022-01-03 INFLUENZA VACCINE [code [facility] 00:04:07 = INFLUENZA VACCINE] Hospita l Future Scheduled 2022-01-03 HEPATITIS B VACCINES (1 [facility] 00:04:07 of 3 - 3-dose series) [...] [facility] Test 00:04:07 (procedure) [code = Hospital 702415320] Future Scheduled 2022-01-03 SHINGLES VACCINES (1 of [facility] 00:04:07 2) [code = SHINGLES Hospital VACCINES (1 of 2)] Future Scheduled 2022-01-03 Screening for malignant [facility] 00:04:07 neoplasm of cervix Hospital (procedure) [code = 402276949] Future Scheduled 2021-12-27 CT CHEST ABDOMEN PELVIS Expected: [facility] [employer] Test 00:00:00 W CONTRAST [code = 12/27/2021, [place] [address]-3] Expires: 11/26/2022 Future Scheduled 2021-12-24 Screening for malignant [facility] [employer] Test 11:04:49 neoplasm of colon of Medicin e (procedure) [code = 853849413] Future Scheduled 2021-12-24 TETANUS SHOT (ADULT) [facility] Test 11:04:49 [code = TETANUS SHOT of Medi cine (ADULT)] Future Scheduled 2021-12-24 Hepatitis C screening [facility] Test 11:04:49 (procedure) [code = of Medic ine 012023292] Future Scheduled 2021-12-24 Human immunodeficiency [facility] Test 11:04:49 virus screening of Medicine (procedure) [code = 110522007] Future Scheduled 2021-12-24 ZOSTER VACCINE (1 of 2) [facility] [employer] Test 11:04:49 [code = ZOSTER VACCINE of Wa dicine (1 of 2)] Future Scheduled 2021-12-24 Screening for malignant [facility] [employer] Test 11:04:49 neoplasm of cervix of Medici ne (procedure) [code = 328734944] Future Scheduled 2021-12-24 Screening for malignant [facility] [employer] Test 11:04:49 neoplasm of lung of Medicine (procedure) [code = 954967815] Future Scheduled 2021-12-24 COVID-19 Vaccine (3 - [facility] [employer] [facility] 11:04:49 Mixed Product risk of Medici ne series) [code = COVID-19 Vaccine (3 - Mixed Product risk series)] Future Scheduled 2021-12-24 Screening for malignant [facility] Test 11:04:49 neoplasm of breast of Medici ne (procedure) [code = 946980604] Future Scheduled 2021-12-24 [facility] MON[facility]:04[facility]49 [code = FLU VACCINE > 6 of M edicine MONTHS] Future Scheduled 2021-12-24 Pneumococcal Combined [facility] Test 11:04:49 (2 - PCV) [code = of Medicin e Pneumococcal Combined (2 - PCV)] Future Scheduled 2021-12-24 CBC W/AUTO DIFF WITH Ordered: [facility] Test 10:47:02 PLATELETS [code = 12/24/2021 of Medicin e 76001-1] Future Scheduled 2021-12-24 COMPREHENSIVE METABOLIC Ordered: [facility] Test 10:47:02 PANEL [code = 27005-9] 12/24/2021 of Me dicine Future Scheduled 2021-12-24 MAGNESIUM [code = Ordered: [facility] Test 10:47:02 00916-0] 12/24/2021 of Medicine Future Scheduled 2021-12-02 INFLUENZA VACCINE (#1) [facility]00 [code = INFLUENZA Medical Ce nter VACCINE (#1)] Future Scheduled 2021-12-02 INFLUENZA VACCINE (#1) [facility] Test 00:00:00 [code = INFLUENZA Medical Ce nter VACCINE (#1)] Future Scheduled 2021-12-02 INFLUENZA VACCINE (#1) [facility] Test 00:00:00 [code = INFLUENZA Medical Ce nter VACCINE (#1)] Future Scheduled 2021-12-02 INFLUENZA VACCINE (#1) [facility] 00:00:00 [code = INFLUENZA Medical Ce nter VACCINE (#1)] Future Scheduled 2021-12-02 INFLUENZA VACCINE (#1) [facility] 00:00:00 [code = INFLUENZA Medical Ce nter VACCINE (#1)] Future Scheduled 2021-12-02 INFLUENZA VACCINE (#1) [facility] 00:00:00 [code = INFLUENZA Medical Ce nter VACCINE (#1)] Future Scheduled 2021-12-02 INFLUENZA VACCINE (#1) [facility] 00:00:00 [code = INFLUENZA Medical Ce nter VACCINE (#1)] Future Scheduled 2021-12-02 INFLUENZA VACCINE (#1) [facility] 00:00:00 [code = INFLUENZA Medical Ce nter VACCINE (#1)] Future Scheduled 2021-12-02 INFLUENZA VACCINE (#1) [facility] 00:00:00 [code = INFLUENZA Medical Ce nter VACCINE (#1)] Future Scheduled 2021-12-02 INFLUENZA VACCINE (#1) [facility] 00:00:00 [code = INFLUENZA Medical Ce nter VACCINE (#1)] Future Scheduled 2021-11-29 MRI HIP RIGHT W WO Expected: [facility] Test 00:00:00 CONTRAST [code = 64177] 11/29/2021, of M edicine Expires: 10/29/2022 Future Scheduled 2021-11-26 Screening for malignant [facility] Test 09:11:41 neoplasm of colon of Medicin e (procedure) [code = 557808269] Future Scheduled 2021-11-26 TETANUS SHOT (ADULT) [facility] Test 09:11:41 [code = TETANUS SHOT of Medi cine (ADULT)] Future Scheduled 2021-11-26 Hepatitis C screening [facility] Test 09:11:41 (procedure) [code = of Medic ine 206346243] Future Scheduled 2021-11-26 Human immunodeficiency [facility] Test 09:11:41 virus screening of Medicine (procedure) [code = 587222390] Future Scheduled 2021-11-26 ZOSTER VACCINE (1 of 2) [facility] Test 09:11:41 [code = ZOSTER VACCINE of Wa dicine (1 of 2)] Future Scheduled 2021-11-26 Screening for malignant [facility] Test 09:11:41 neoplasm of cervix of Medici ne (procedure) [code = 325527010] Future Scheduled 2021-11-26 Screening for malignant [facility] Test 09:11:41 neoplasm of lung of Medicine (procedure) [code = 780017959] Future Scheduled 2021-11-26 COVID-19 Vaccine (3 - [facility] Test 09:11:41 Mixed Product risk of Medici ne series) [code = COVID-19 Vaccine (3 - Mixed Product risk series)] Future Scheduled 2021-11-26 Screening for malignant [facility] Test 09:11:41 neoplasm of breast of Medici ne (procedure) [code = 610201225] Future Scheduled 2021-11-26 FLU VACCINE > 6 MONTHS [employer] Test 09:11:41 [code = FLU VACCINE > 6 of M edicine MONTHS] Future Scheduled 2021-11-26 Pneumococcal Combined [employer] Test 09:11:41 (2 - PCV) [code = of Medicin e Pneumococcal Combined (2 - PCV)] Future Scheduled 2021-11-24 Screening for malignant [facility] Test 13:28:26 neoplasm of colon of Medicin e (procedure) [code = 807805471] Future Scheduled 2021-11-24 TETANUS SHOT (ADULT) [facility] [employer] Test 13:28:26 [code = TETANUS SHOT of Medi cine (ADULT)] Future Scheduled 2021-11-24 Hepatitis C screening [facility] Test 13:28:26 (procedure) [code = of Medic ine 124198453] Future Scheduled 2021-11-24 Human immunodeficiency [facility] Test 13:28:26 virus screening of Medicine (procedure) [code = 921644627] Future Scheduled 2021-11-24 ZOSTER VACCINE (1 of 2) [facility] Test 13:28:26 [code = ZOSTER VACCINE of Me dicine (1 of 2)] Future Scheduled 2021-11-24 Screening for malignant [facility] Test 13:28:26 neoplasm of cervix of Medici ne (procedure) [code = 837694558] Future Scheduled 2021-11-24 Screening for malignant [facility] Test 13:28:26 neoplasm of lung of Medicine (procedure) [code = 488972665] Future Scheduled 2021-11-24 COVID-19 Vaccine (3 - [facility] [employer] Test 13:28:26 Mixed Product risk of Medici ne series) [code = COVID-19 Vaccine (3 - Mixed Product risk series)] Future Scheduled 2021-11-24 Screening for malignant [facility] [employer] Test 13:28:26 neoplasm of breast of Medici ne (procedure) [code = 860002893] Future Scheduled 2021-11-24 FLU VACCINE > 6 MONTHS [employer] Test 13:28:26 [code = FLU VACCINE > 6 of M edicine MONTHS] Future Scheduled 2021-11-24 Pneumococcal Combined [facility] [place] Test 13:28:26 (2 - PCV) [code = of Medicin e Pneumococcal Combined (2 - PCV)] Future Scheduled 2021-11-24 Screening for malignant [facility] Test 11:49:48 neoplasm of colon of Medicin e (procedure) [code = 260526823] Future Scheduled 2021-11-24 TETANUS SHOT (ADULT) [facility] [employer] Test 11:49:48 [code = TETANUS SHOT of Medi cine (ADULT)] Future Scheduled 2021-11-24 Hepatitis C screening [facility] [employer] Test 11:49:48 (procedure) [code = of Medic ine 443419014] Future Scheduled 2021-11-24 Human immunodeficiency [facility] [employer] Test 11:49:48 virus screening of Medicine (procedure) [code = 686885267] Future Scheduled 2021-11-24 ZOSTER VACCINE (1 of 2) [facility] Test 11:49:48 [code = ZOSTER VACCINE of Me dicine (1 of 2)] Future Scheduled 2021-11-24 Screening for malignant [facility] Test 11:49:48 neoplasm of cervix of Medici ne (procedure) [code = 379425270] Future Scheduled 2021-11-24 Screening for malignant [facility] [employer] Test 11:49:48 neoplasm of lung of Medicine (procedure) [code = 784707672] Future Scheduled 2021-11-24 COVID-19 Vaccine (3 - [facility] Test 11:49:48 Mixed Product risk of Medici ne series) [code = COVID-19 Vaccine (3 - Mixed Product risk series)] Future Scheduled 2021-11-24 Screening for malignant [facility] Test 11:49:48 neoplasm of breast of Medici ne (procedure) [code = 638079482] Future Scheduled 2021-11-24 FLU VACCINE > 6 [...] 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 = starting of Me dicine 50810] 11/24/2021 until 11/24/2022 Future Scheduled 2021-11-24 SIX MINUTE WALK TEST 1 Occurrences [facility] Test 11:38:41 [code = 19814] starting of Medicine 11/24/2021 until 11/24/2022 Future Scheduled 2021-10-29 Screening for malignant [facility] Test 10:49:39 neoplasm of colon of Medicin e (procedure) [code = 256095254] Future Scheduled 2021-10-29 TETANUS SHOT (ADULT) [facility] [employer] Test 10:49:39 [code = TETANUS SHOT of Medi cine (ADULT)] Future Scheduled 2021-10-29 Hepatitis C screening [facility] Test 10:49:39 (procedure) [code = of Medic ine 482185484] Future Scheduled 2021-10-29 Human immunodeficiency [facility] [employer] Test 10:49:39 virus screening of Medicine (procedure) [code = 021566376] Future Scheduled 2021-10-29 ZOSTER VACCINE (1 of 2) [facility] Test 10:49:39 [code = ZOSTER VACCINE of Wa dicine (1 of 2)] Future Scheduled 2021-10-29 Screening for malignant [facility] Test 10:49:39 neoplasm of cervix of Medici ne (procedure) [code = 796765034] Future Scheduled 2021-10-29 Screening for malignant [facility] [employer] Test 10:49:39 neoplasm of lung of Medicine (procedure) [code = 691303719] Future Scheduled 2021-10-29 COVID-19 Vaccine (3 - [facility] Test 10:49:39 Mixed Product risk of Medici ne series) [code = COVID-19 Vaccine (3 - Mixed Product risk series)] Future Scheduled 2021-10-29 Screening for malignant [facility] Test 10:49:39 neoplasm of breast of Medici ne (procedure) [code = 720336363] Future Scheduled 2021-10-29 FLU VACCINE > 6 MONTHS [employer] Test 10:49:39 [code = FLU VACCINE > 6 of M edicine MONTHS] Future Scheduled 2021-10-29 Pneumococcal Combined [facility] Test 10:49:39 (2 - PCV) [code = of Medicin e Pneumococcal Combined (2 - PCV)] Future Scheduled 2021-10-29 Screening for malignant [facility] [employer] Test 10:49:39 neoplasm of colon of Medicin e (procedure) [code = 203748871] Future Scheduled 2021-10-29 TETANUS SHOT (ADULT) [facility] [employer] Test 10:49:39 [code = TETANUS SHOT of Medi cine (ADULT)] Future Scheduled 2021-10-29 Hepatitis C screening [facility] [employer] Test 10:49:39 (procedure) [code = of Medic ine 524580318] Future Scheduled 2021-10-29 [facility] 10:49:39 virus screening of Medicine (procedure) [code = 371851558] Future Scheduled 2021-10-29 ZOSTER VACCINE (1 of 2) [facility] [employer] Test 10:49:39 [code = ZOSTER VACCINE of Me dicine (1 of 2)] Future Scheduled 2021-10-29 Screening for malignant [facility] [employer] Test 10:49:39 neoplasm of cervix of Medici ne (procedure) [code = 640302408] Future Scheduled 2021-10-29 Screening for malignant [facility] [employer] Test 10:49:39 neoplasm of lung of Medicine (procedure) [code = 391774271] Future Scheduled 2021-10-29 COVID-19 Vaccine (3 - [facility] Test 10:49:39 Mixed Product risk of Medici ne series) [code = COVID-19 Vaccine (3 - Mixed Product risk series)] Future Scheduled 2021-10-29 Screening for malignant [facility] [employer] Test 10:49:39 neoplasm of breast of Medici ne (procedure) [code = 740089779] Future Scheduled 2021-10-29 FLU VACCINE > 6 MONTHS [facility] 10:49:39 [code = FLU VACCINE > 6 of M edicine MONTHS] Future Scheduled 2021-10-29 Pneumococcal Combined [facility] [employer] Test 10:49:39 (2 - PCV) [code = of Medicin e Pneumococcal Combined (2 - PCV)] Future Scheduled 2021-10-29 TSH [code = 82663-8] [facility] [employer] Test 10:18:19 of Medicine Future Scheduled 2021-10-29 T4 FREE [code = 3024-7] [facility] [employer] Test 10:18:19 of Medicine Future Scheduled 2021-10-11 Screening for malignant [facility] [employer] Test 10:29:01 neoplasm of colon of Medicin e (procedure) [code = 372342856] Future Scheduled 2021-10-11 TETANUS SHOT (ADULT) [facility] [employer] Test 10:29:01 [code = TETANUS SHOT of Medi cine (ADULT)] Future Scheduled 2021-10-11 Hepatitis C screening [facility] [employer] [employer] Test 10:29:01 (procedure) [code = of Medic ine 842941047] Future Scheduled 2021-10-11 [facility] virus screening of Medicine (procedure) [code = 266731881] Future Scheduled 2021-10-11 ZOSTER VACCINE (1 of 2) [employer] Test 10:29:01 [code = ZOSTER VACCINE of Me dicine (1 of 2)] Future Scheduled 2021-10-11 Screening for malignant [facility] Test 10:29:01 neoplasm of cervix of Medici ne (procedure) [code = 991184182] Future Scheduled 2021-10-11 Screening for malignant [facility] Test 10:29:01 neoplasm of lung of Medicine (procedure) [code = 544078884] Future Scheduled 2021-10-11 COVID-19 Vaccine (3 - [facility] Test 10:29:01 Mixed Product risk of Medici ne series) [code = COVID-19 Vaccine (3 - Mixed Product risk series)] Future Scheduled 2021-10-11 Screening for malignant [facility] Test 10:29:01 neoplasm of breast of Medici ne (procedure) [code = 225456897] Future Scheduled 2021-10-11 FLU V[facility]INE > 6 MON[facility]S [facility] 10:29:01 [code = FLU VACCINE > 6 of M edicine MONTHS] Future Scheduled 2021-10-11 Pneumococcal Combined [facility] Test 10:29:01 (2 - PCV) [code = of Medicin e Pneumococcal Combined (2 - PCV)] Future Scheduled 2021-09-24 Screening for malignant [facility] Test 10:22:46 neoplasm of colon of Medicin e (procedure) [code = 384532247] Future Scheduled 2021-09-24 TETANUS SHOT (ADULT) [facility] [employer] Test 10:22:46 [code = TETANUS SHOT of Medi cine (ADULT)] Future Scheduled 2021-09-24 Hepatitis C screening [facility] [employer] Test 10:22:46 (procedure) [code = of Medic ine 446040262] Future Scheduled 2021-09-24 [facility] 10:22:46 virus screening of Medicine (procedure) [code = 671642179] Future Scheduled 2021-09-24 ZOSTER VACCINE (1 of 2) [facility] [employer] Test 10:22:46 [code = ZOSTER VACCINE of Me dicine (1 of 2)] Future Scheduled 2021-09-24 Screening for malignant [facility] [employer] Test 10:22:46 neoplasm of cervix of Medici ne (procedure) [code = 968267708] Future Scheduled 2021-09-24 Screening for malignant [facility] [employer] Test 10:22:46 neoplasm of lung of Medicine (procedure) [code = 001514451] Future Scheduled 2021-09-24 COVID-19 Vaccine (3 - [facility] Test 10:22:46 Mixed Product risk of Medici ne series) [code = COVID-19 Vaccine (3 - Mixed Product risk series)] Future Scheduled 2021-09-24 Screening for malignant [facility] [employer] Test 10:22:46 neoplasm of breast of Medici ne (procedure) [code = 043979674] Future Scheduled 2021-09-24 FLU VACCINE > 6 MONTHS [facility] 10:22:46 [code = FLU VACCINE > 6 of M edicine MONTHS] Future Scheduled 2021-09-24 Pneumococcal Combined [facility] Test 10:22:46 (2 - PCV) [code = of Medicin e Pneumococcal Combined (2 - PCV)] Future Scheduled 2021-09-24 Screening for malignant [facility] Test 09:29:00 neoplasm of colon of Medicin e (procedure) [code = 545629499] Future Scheduled 2021-09-24 TETANUS SHOT (ADULT) [facility] [employer] Test 09:29:00 [code = TETANUS SHOT of Medi cine (ADULT)] Future Scheduled 2021-09-24 Hepatitis C screening [facility] Test 09:29:00 (procedure) [code = of Medic ine 506501749] Future Scheduled 2021-09-24 [facility] 09:29:00 virus screening of Medicine (procedure) [code = 221133958] Future Scheduled 2021-09-24 ZOSTER VACCINE (1 of 2) [facility] [employer] Test 09:29:00 [code = ZOSTER VACCINE of Me dicine (1 of 2)] Future Scheduled 2021-09-24 Screening for malignant [facility] [employer] Test 09:29:00 neoplasm of cervix of Medici ne (procedure) [code = 941373800] Future Scheduled 2021-09-24 Screening for malignant [employer] Test 09:29:00 neoplasm of lung of Medicine (procedure) [code = 716420060] Future Scheduled 2021-09-24 COVID-19 Vaccine (3 - [facility] Test 09:29:00 Mixed Product risk of Medici ne series) [code = COVID-19 Vaccine (3 - Mixed Product risk series)] Future Scheduled 2021-09-24 Screening for malignant [facility] [employer] Test 09:29:00 neoplasm of breast of Medici ne (procedure) [code = 405653501] Future Scheduled 2021-09-24 FLU VACCINE > 6 MONTHS [facility] 09:29:00 [code = FLU VACCINE > 6 of M edicine MONTHS] Future Scheduled 2021-09-24 Pneumococcal Combined [facility] Test 09:29:00 (2 - PCV) [code = of Medicin e Pneumococcal Combined (2 - PCV)] Future Scheduled 2021-09-13 CT CHEST ABDOMEN PELVIS Expected: [facility] Test 00:00:00 W/WO CONTRAST [code = 09/13/2021, of Med [facility] [address]] Expires: 08/13/2022 Future Scheduled 2021-09-03 Screening for malignant [facility] Test 09:48:55 neoplasm of colon of Medicin e (procedure) [code = 548107477] Future Scheduled 2021-09-03 TETANUS SHOT (ADULT) [facility] [employer] Test 09:48:55 [code = TETANUS SHOT of Medi cine (ADULT)] Future Scheduled 2021-09-03 Hepatitis C screening [facility] Test 09:48:55 (procedure) [code = of Medic ine 898836739] Future Scheduled 2021-09-03 Human immunodeficiency [facility] [employer] Test 09:48:55 virus screening of Medicine (procedure) [code = 835011062] Future Scheduled 2021-09-03 ZOSTER VACCINE (1 of 2) [facility] [employer] Test 09:48:55 [code = ZOSTER VACCINE of Me dicine (1 of 2)] Future Scheduled 2021-09-03 Screening for malignant [facility] [employer] Test 09:48:55 neoplasm of cervix of Medici ne (procedure) [code = 697972296] Future Scheduled 2021-09-03 Screening for malignant [facility] [employer] Test 09:48:55 neoplasm of lung of Medicine (procedure) [code = 046678575] Future Scheduled 2021-09-03 COVID-19 Vaccine (3 - [facility] [employer] Test 09:48:55 Mixed Product risk of Medici ne series) [code = COVID-19 Vaccine (3 - Mixed Product risk series)] Future Scheduled 2021-09-03 Screening for malignant [facility] Test 09:48:55 neoplasm of breast of Medici ne (procedure) [code = 283017484] Future Scheduled 2021-09-03 FLU VACCINE > 6 MONTHS [employer] Test 09:48:55 [code = FLU VACCINE > 6 of M edicine MONTHS] Future Scheduled 2021-09-03 Pneumococcal Combined [employer] Test 09:48:55 (2 - PCV) [code = of Medicin e Pneumococcal Combined (2 - PCV)] Future Scheduled 2021-08-14 Screening for malignant [facility] Test 14:00:24 neoplasm of colon of Medicin e (procedure) [code = 944999850] Future Scheduled 2021-08-14 TETANUS SHOT (ADULT) [facility] [employer] Test 14:00:24 [code = TETANUS SHOT of Medi cine (ADULT)] Future Scheduled 2021-08-14 Hepatitis C screening [facility] Test 14:00:24 (procedure) [code = of Medic ine 387758206] Future Scheduled 2021-08-14 [facility] 14:00:24 virus screening of Medicine (procedure) [code = 557343849] Future Scheduled 2021-08-14 Screening for malignant [facility] Test 14:00:24 neoplasm of cervix of Medici ne (procedure) [code = 419393445] Future Scheduled 2021-08-14 Screening for malignant [facility] Test 14:00:24 neoplasm of lung of Medicine (procedure) [code = 917623417] Future Scheduled 2021-08-14 ZOSTER VACCINE (1 of 2) [facility] [employer] Test 14:00:24 [code = ZOSTER VACCINE of Me dicine (1 of 2)] Future Scheduled 2021-08-14 COVID-19 Vaccine (3 - [facility] [employer] Test 14:00:24 Inadvertent risk 4-dose of M edicine series) [code = COVID-19 Vaccine (3 - Inadvertent risk 4-dose series)] Future Scheduled 2021-08-14 Screening for malignant [facility] Test 14:00:24 neoplasm of breast of Medici ne (procedure) [code = 083400196] Future Scheduled 2021-08-14 FLU VACCINE > 6 MONTHS [employer] Test 14:00:24 [code = FLU VACCINE > 6 of M edicine MONTHS] Future Scheduled 2021-08-14 Pneumococcal Combined [facility] Test 14:00:24 (2 of 4 - PCV13) [code of Me dicine = Pneumococcal Combined (2 of 4 - PCV13)] Future Scheduled 2021-08-13 Screening for malignant [facility] Test 09:24:25 neoplasm of colon of Medicin e (procedure) [code = 868481605] Future Scheduled 2021-08-13 TETANUS SHOT (ADULT) [facility] [employer] Test 09:24:25 [code = TETANUS SHOT of Medi cine (ADULT)] Future Scheduled 2021-08-13 Hepatitis C screening [facility] Test 09:24:25 (procedure) [code = of Medic ine 114458100] Future Scheduled 2021-08-13 Human immunodeficiency [facility] Test 09:24:25 virus screening of Medicine (procedure) [code = 511881904] Future Scheduled 2021-08-13 Screening for malignant [facility] Test 09:24:25 neoplasm of cervix of Medici ne (procedure) [code = 025646775] Future Scheduled 2021-08-13 Screening for malignant [facility] Test 09:24:25 neoplasm of lung of Medicine (procedure) [code = 015831164] Future Scheduled 2021-08-13 ZOSTER VACCINE (1 of 2) [facility] [employer] Test 09:24:25 [code = ZOSTER VACCINE of Me dicine (1 of 2)] Future Scheduled 2021-08-13 COVID-19 Vaccine (3 - [facility] Test 09:24:25 Inadvertent risk 4-dose of M edicine series) [code = COVID-19 Vaccine (3 - Inadvertent risk 4-dose series)] Future Scheduled 2021-08-13 Screening for malignant [facility] Test 09:24:25 neoplasm of breast of Medici ne (procedure) [code = 266966247] Future Scheduled 2021-08-13 FLU VACCINE > 6 MONTHS [employer] Test 09:24:25 [code = FLU VACCINE > 6 of M edicine MONTHS] Future Scheduled 2021-08-13 Pneumococcal Combined [employer] Test 09:24:25 (2 of 4 - PCV13) [code of Me dicine = Pneumococcal Combined (2 of 4 - PCV13)] Future Scheduled 2021-08-13 CBC W/AUTO DIFF WITH Ordered: [facility] [employer] Test 08:54:29 PLATELETS [code = 08/13/2021 of Medicin e 29761-9] Future Scheduled 2021-08-13 COMPREHENSIVE METABOLIC Ordered: [facility] [employer] Test 08:54:29 PANEL [code = 47691-9] 08/13/2021 of Me dicine Future Scheduled 2021-08-13 MAGNESIUM [code = Ordered: [facility] [employer] Test 08:54:29 93677-7] 08/13/2021 of Medicine Future Scheduled 2021-08-09 Screening for malignant [facility] [employer] Test 10:01:50 neoplasm of colon of Medicin e (procedure) [code = 588887222] Future Scheduled 2021-08-09 TETANUS SHOT (ADULT) [employer] Test 10:01:50 [code = TETANUS SHOT of Medi cine (ADULT)] Future Scheduled 2021-08-09 Hepatitis C screening [facility] [employer] [facility] 10:01:50 (procedure) [code = of Medic ine 274508364] Future Scheduled 2021-08-09 Human immunodeficiency [facility] [employer] Test 10:01:50 virus screening of Medicine (procedure) [code = 934640403] Future Scheduled 2021-08-09 Screening for malignant [facility] [employer] Test 10:01:50 neoplasm of cervix of Medici ne (procedure) [code = 999500745] Future Scheduled 2021-08-09 Screening for malignant [facility] [employer] Test 10:01:50 neoplasm of lung of Medicine (procedure) [code = 501738970] Future Scheduled 2021-08-09 ZOSTER VACCINE (1 of 2) [facility] [employer] Test 10:01:50 [code = ZOSTER VACCINE of Me dicine (1 of 2)] Future Scheduled 2021-08-09 COVID-19 Vaccine (3 - [facility] [employer] [facility] 10:01:50 Inadvertent risk 4-dose of M edicine series) [code = COVID-19 Vaccine (3 - Inadvertent risk 4-dose series)] Future Scheduled 2021-08-09 Screening for malignant [employer] Test 10:01:50 neoplasm of breast of Medici ne (procedure) [code = 543206348] Future Scheduled 2021-08-09 FLU VACCINE > 6 MONTHS [employer] Test 10:01:50 [code = FLU VACCINE > 6 of M edicine MONTHS] Future Scheduled 2021-08-09 Pneumococcal Combined [employer] [employer] [facility] 10:01:50 (2 of 4 - PCV13) [code of Me dicine = Pneumococcal Combined (2 of 4 - PCV13)] Future Scheduled 2021-08-06 Screening for malignant [facility] [employer] Test 10:35:35 neoplasm of colon of Medicin e (procedure) [code = 272117974] Future Scheduled 2021-08-06 TETANUS SHOT (ADULT) [facility] [employer] Test 10:35:35 [code = TETANUS SHOT of Medi cine (ADULT)] Future Scheduled 2021-08-06 Hepatitis C screening [facility] Test 10:35:35 (procedure) [code = of Medic ine 575277773] Future Scheduled 2021-08-06 [facility] 10:35:35 virus screening of Medicine (procedure) [code = 382527777] Future Scheduled 2021-08-06 Screening for malignant [facility] [employer] Test 10:35:35 neoplasm of cervix of Medici ne (procedure) [code = 723842946] Future Scheduled 2021-08-06 Screening for malignant [facility] [employer] Test 10:35:35 neoplasm of lung of Medicine (procedure) [code = 571044673] Future Scheduled 2021-08-06 ZOSTER VACCINE (1 of 2) [facility] [employer] Test 10:35:35 [code = ZOSTER VACCINE of Me dicine (1 of 2)] Future Scheduled 2021-08-06 COVID-19 Vaccine (3 - [facility] Test 10:35:35 Inadvertent risk 4-dose of M edicine series) [code = COVID-19 Vaccine (3 - Inadvertent risk 4-dose series)] Future Scheduled 2021-08-06 Screening for malignant [facility] [employer] Test 10:35:35 neoplasm of breast of Medici ne (procedure) [code = 952454926] Future Scheduled 2021-08-06 FLU VACCINE > 6 MONTHS [employer] Test 10:35:35 [code = FLU VACCINE > 6 of M edicine MONTHS] Future Scheduled 2021-08-06 Pneumococcal Combined [facility] [employer] [facility] 10:35:35 (2 of 4 - PCV13) [code of Me dicine = Pneumococcal Combined (2 of 4 - PCV13)] Future Scheduled 2021-07-25 Screening for malignant [facility] [employer] Test 21:24:37 neoplasm of colon of Medicin e (procedure) [code = 935762730] Future Scheduled 2021-07-25 TETANUS SHOT (ADULT) [employer] [facility] 21:24:37 [code = TETANUS SHOT of Medi cine (ADULT)] Future Scheduled 2021-07-25 Hepatitis C screening [facility] [employer] [facility] 21:24:37 (procedure) [code = of Medic ine 937154162] Future Scheduled 2021-07-25 Human immunodeficiency [employer] 21:24:37 virus screening of Medicine (procedure) [code = 171854042] Future Scheduled 2021-07-25 Screening for malignant [facility] [employer] Test 21:24:37 neoplasm of cervix of Medici ne (procedure) [code = 763989974] Future Scheduled 2021-07-25 Screening for malignant [facility] [employer] [facility] 21:24:37 neoplasm of lung of Medicine (procedure) [code = 652921256] Future Scheduled 2021-07-25 ZOSTER VACCINE (1 of 2) [facility] [employer] [facility] 21:24:37 [code = ZOSTER VACCINE of Me dicine (1 of 2)] Future Scheduled 2021-07-25 COVID-19 Vaccine (3 - [facility] 21:24:37 Inadvertent risk 4-dose of M edicine series) [code = COVID-19 Vaccine (3 - Inadvertent risk 4-dose series)] Future Scheduled 2021-07-25 Screening for malignant [facility] [employer] 21:24:37 neoplasm of breast of Medici ne (procedure) [code = 633150874] Future Scheduled 2021-07-25 FLU VACCINE > 6 MONTHS [employer] 21:24:37 [code = FLU VACCINE > 6 of M edicine MONTHS] Future Scheduled 2021-07-25 Pneumococcal Combined [employer] 21:24:37 (2 of 4 - PCV13) [code of Me dicine = Pneumococcal Combined (2 of 4 - PCV13)] Future Scheduled 2021-07-23 Screening for malignant [facility] [employer] [facility] 09:55:51 neoplasm of colon of Medicin e (procedure) [code = 830897079] Future Scheduled 2021-07-23 TETANUS SHOT (ADULT) [employer] 09:55:51 [code = TETANUS SHOT of Medi cine (ADULT)] Future Scheduled 2021-07-23 Hepatitis C screening [employer] 09:55:51 (procedure) [code = of Medic ine 254092480] Future Scheduled 2021-07-23 Human immunodeficiency [employer] 09:55:51 virus screening of Medicine (procedure) [code = 118164392] Future Scheduled 2021-07-23 Screening for malignant [employer] 09:55:51 neoplasm of cervix of Medici ne (procedure) [code = 828117027] Future Scheduled 2021-07-23 Screening for malignant [employer] 09:55:51 neoplasm of lung of Medicine (procedure) [code = 972948416] Future Scheduled 2021-07-23 ZOSTER VACCINE (1 of 2) [employer] 09:55:51 [code = ZOSTER VACCINE of Me dicine (1 of 2)] Future Scheduled 2021-07-23 COVID-19 Vaccine (3 - [employer] [facility] 09:55:51 Inadvertent risk 4-dose of M edicine series) [code = COVID-19 Vaccine (3 - Inadvertent risk 4-dose series)] Future Scheduled 2021-07-23 Screening for malignant [facility] [employer] Test 09:55:51 neoplasm of breast of Medici ne (procedure) [code = 957770811] Future Scheduled 2021-07-23 FLU VACCINE > 6 [...] Medicine Future Scheduled 2021-07-14 Screening for malignant [facility] [employer] Test 08:59:52 neoplasm of colon of Medicin e (procedure) [code = 493108579] Future Scheduled 2021-07-14 TETANUS SHOT (ADULT) [employer] 08:59:52 [code = TETANUS SHOT of Medi cine (ADULT)] Future Scheduled 2021-07-14 Hepatitis C screening [employer] 08:59:52 (procedure) [code = of Medic ine 885712852] Future Scheduled 2021-07-14 Human immunodeficiency [employer] 08:59:52 virus screening of Medicine (procedure) [code = 548199075] Future Scheduled 2021-07-14 Screening for malignant [facility] [employer] [facility] 08:59:52 neoplasm of cervix of Medici ne (procedure) [code = 623127359] Future Scheduled 2021-07-14 Screening for malignant [employer] 08:59:52 neoplasm of lung of Medicine (procedure) [code = 059802083] Future Scheduled 2021-07-14 ZOSTER VACCINE (1 of 2) [employer] 08:59:52 [code = ZOSTER VACCINE of Me dicine (1 of 2)] Future Scheduled 2021-07-14 COVID-19 Vaccine (3 - [employer] [facility] 08:59:52 Inadvertent risk 4-dose of M edicine series) [code = COVID-19 Vaccine (3 - Inadvertent risk 4-dose series)] Future Scheduled 2021-07-14 Screening for malignant [facility] [employer] [facility] 08:59:52 neoplasm of breast of Medici ne (procedure) [code = 082486344] Future Scheduled 2021-07-14 FLU VACCINE > 6 MONTHS [employer] 08:59:52 [code = FLU VACCINE > 6 of M edicine MONTHS] Future Scheduled 2021-07-14 Pneumococcal Combined [employer] 08:59:52 (2 of 4 - PCV13) [code of Me dicine = Pneumococcal Combined (2 of 4 - PCV13)] Future Scheduled 2021-07-04 Screening for malignant [employer] 16:36:18 neoplasm of colon of Medicin e (procedure) [code = 462565451] Future Scheduled 2021-07-04 TETANUS SHOT (ADULT) [employer] 16:36:18 [code = TETANUS SHOT of Medi cine (ADULT)] Future Scheduled 2021-07-04 Hepatitis C screening [employer] 16:36:18 (procedure) [code = of Medic ine 866544466] Future Scheduled 2021-07-04 Human immunodeficiency [employer] 16:36:18 virus screening of Medicine (procedure) [code = 307466641] Future Scheduled 2021-07-04 Screening for malignant [facility] [employer] [facility] 16:36:18 neoplasm of cervix of Medici ne (procedure) [code = 899081092] Future Scheduled 2021-07-04 Screening for malignant [facility] [employer] 16:36:18 neoplasm of lung of Medicine (procedure) [code = 829563929] Future Scheduled 2021-07-04 ZOSTER VACCINE (1 of 2) [facility] [employer] [facility] 16:36:18 [code = ZOSTER VACCINE of Me dicine (1 of 2)] Future Scheduled 2021-07-04 COVID-19 Vaccine (3 - [facility] [employer] [facility] 16:36:18 Inadvertent risk 4-dose of M edicine series) [code = COVID-19 Vaccine (3 - Inadvertent risk 4-dose series)] Future Scheduled 2021-07-04 Screening for malignant [facility] [employer] [facility] 16:36:18 neoplasm of breast of Medici ne (procedure) [code = 538557771] Future Scheduled 2021-07-04 FLU VACCINE > 6 MON[facility]S [facility] 16:36:18 [code = FLU VACCINE > 6 of M edicine MONTHS] Future Scheduled 2021-07-04 Pneumococcal Combined [facility] [employer] [facility] 16:36:18 (2 of 4 - PCV13) [code of Me dicine = Pneumococcal Combined (2 of 4 - PCV13)] Future Scheduled 2021-06-18 MRI BRAIN W WO CONTRAST Expected: [facility] [employer] [facility] 00:00:00 [code = 81832-5] 06/18/2021, of Medicine Expires: 06/11/2022 Future Scheduled 2021-06-11 TSH [code = 13521-9] [facility] [employer] Test 08:58:41 of Medicine Future Scheduled 2021-06-11 T4 FREE [code = 3024-7] [facility] [employer] [facility] 08:58:41 of Medicine Future Scheduled 2021-06-11 Screening for malignant [facility] [employer] 08:22:31 neoplasm of colon of Medicin e (procedure) [code = 606117934] Future Scheduled 2021-06-11 TETANUS SHOT (ADULT) [employer] 08:22:31 [code = TETANUS SHOT of Medi cine (ADULT)] Future Scheduled 2021-06-11 Hepatitis C screening [facility] Test 08:22:31 (procedure) [code = of Medic ine 439059253] Future Scheduled 2021-06-11 [facility] 08:22:31 virus screening of Medicine (procedure) [code = 210196251] Future Scheduled 2021-06-11 Screening for malignant [employer] 08:22:31 neoplasm of cervix of Medici ne (procedure) [code = 985665690] Future Scheduled 2021-06-11 Screening for malignant [employer] 08:22:31 neoplasm of lung of Medicine (procedure) [code = 953641313] Future Scheduled 2021-06-11 ZOSTER VACCINE (1 of 2) [facility] [employer] [facility] 08:22:31 [code = ZOSTER VACCINE of Me dicine (1 of 2)] Future Scheduled 2021-06-11 COVID-19 Vaccine (3 - [employer] 08:22:31 Inadvertent risk 4-dose of M edicine series) [code = COVID-19 Vaccine (3 - Inadvertent risk 4-dose series)] Future Scheduled 2021-06-11 Screening for malignant [employer] 08:22:31 neoplasm of breast of Medici ne (procedure) [code = 745789976] Future Scheduled 2021-06-11 Pneumococcal Combined [employer] 08:22:31 (2 of 4 - PCV13) [code of Me dicine = Pneumococcal Combined (2 of 4 - PCV13)] Future Scheduled 2021-06-11 Screening for malignant [employer] 08:22:31 neoplasm of colon of Medicin e (procedure) [code = 645362891] Future Scheduled 2021-06-11 TETANUS SHOT (ADULT) [employer] 08:22:31 [code = TETANUS SHOT of Medi cine (ADULT)] Future Scheduled 2021-06-11 Hepatitis C screening [employer] 08:22:31 (procedure) [code = of Medic ine 480570444] Future Scheduled 2021-06-11 Human immunodeficiency [employer] 08:22:31 virus screening of Medicine (procedure) [code = 188472247] Future Scheduled 2021-06-11 Screening for malignant [facility] [employer] [facility] 08:22:31 neoplasm of cervix of Medici ne (procedure) [code = 474428448] Future Scheduled 2021-06-11 Screening for malignant [employer] 08:22:31 neoplasm of lung of Medicine (procedure) [code = 288207463] Future Scheduled 2021-06-11 ZOSTER VACCINE (1 of 2) [employer] 08:22:31 [code = ZOSTER VACCINE of Me dicine (1 of 2)] Future Scheduled 2021-06-11 COVID-19 Vaccine (3 - [facility] [employer] [facility] 08:22:31 Inadvertent risk 4-dose of M edicine series) [code = COVID-19 Vaccine (3 - Inadvertent risk 4-dose series)] Future Scheduled 2021-06-11 Screening for malignant [facility] [employer] [facility] 08:22:31 neoplasm of breast of Medici ne (procedure) [code = 938008527] Future Scheduled 2021-06-11 Pneumococcal Combined [employer] 08:22:31 (2 of 4 - PCV13) [code of Me dicine = Pneumococcal Combined (2 of 4 - PCV13)] Future Scheduled 2021-05-27 Screening for malignant [facility] [employer] 13:29:12 neoplasm of colon of Medicin e (procedure) [code = 950466527] Future Scheduled 2021-05-27 TETANUS SHOT (ADULT) [facility] [employer] [facility] 13:29:12 [code = TETANUS SHOT of Medi cine (ADULT)] Future Scheduled 2021-05-27 Hepatitis C screening [facility] Test 13:29:12 (procedure) [code = of Medic ine 061810829] Future Scheduled 2021-05-27 Human immunodeficiency [facility] [employer] Test 13:29:12 virus screening of Medicine (procedure) [code = 526237822] Future Scheduled 2021-05-27 Screening for malignant [facility] [employer] Test 13:29:12 neoplasm of cervix of Medici ne (procedure) [code = 046370952] Future Scheduled 2021-05-27 Screening for malignant [facility] [employer] [facility] 13:29:12 neoplasm of lung of Medicine (procedure) [code = 888888637] Future Scheduled 2021-05-27 ZOSTER VACCINE (1 of 2) [facility] [employer] [facility] 13:29:12 [code = ZOSTER VACCINE of Me dicine (1 of 2)] Future Scheduled 2021-05-27 COVID-19 Vaccine (3 - [employer] 13:29:12 Inadvertent risk 4-dose of M edicine series) [code = COVID-19 Vaccine (3 - Inadvertent risk 4-dose series)] Future Scheduled 2021-05-27 Screening for malignant [facility] [employer] [facility] 13:29:12 neoplasm of breast of Medici ne (procedure) [code = 804772602] Future Scheduled 2021-05-27 Pneumococcal Combined [employer] 13:29:12 (2 of 4 - PCV13) [code of Me dicine = Pneumococcal Combined (2 of 4 - PCV13)] Future Scheduled 2021-05-26 Screening for malignant [facility] Test 10:41:59 neoplasm of colon of Medicin e (procedure) [code = 416943765] Future Scheduled 2021-05-26 TETANUS SHOT (ADULT) [facility] [employer] Test 10:41:59 [code = TETANUS SHOT of Medi cine (ADULT)] Future Scheduled 2021-05-26 Hepatitis C screening [facility] Test 10:41:59 (procedure) [code = of Medic ine 737785578] Future Scheduled 2021-05-26 Human immunodeficiency [facility] [employer] Test 10:41:59 virus screening of Medicine (procedure) [code = 013560829] Future Scheduled 2021-05-26 Screening for malignant [facility] Test 10:41:59 neoplasm of cervix of Medici ne (procedure) [code = 493884402] Future Scheduled 2021-05-26 Screening for malignant [facility] [employer] Test 10:41:59 neoplasm of lung of Medicine (procedure) [code = 770205979] Future Scheduled 2021-05-26 ZOSTER VACCINE (1 of 2) [facility] [employer] [facility] 10:41:59 [code = ZOSTER VACCINE of Me dicine (1 of 2)] Future Scheduled 2021-05-26 COVID-19 Vaccine (3 - [facility] Test 10:41:59 Inadvertent risk 4-dose of M edicine series) [code = COVID-19 Vaccine (3 - Inadvertent risk 4-dose series)] Future Scheduled 2021-05-26 Screening for malignant [facility] [employer] Test 10:41:59 neoplasm of breast of Medici ne (procedure) [code = 188378790] Future Scheduled 2021-05-26 Pneumococcal Combined [employer] 10:41:59 (2 of 4 - PCV13) [code of Me dicine = Pneumococcal Combined (2 of 4 - PCV13)] Future Scheduled 2021-05-26 SIX MINUTE WALK TEST 1 Occurrences [employer] [facility] 10:30:49 [code = 57619] starting of Medicine 05/26/2021 until 05/26/2022 Future Scheduled 2021-05-26 COMPLETE PFT WITHOUT 1 Occurrences [facility] [employer] [facility] 10:30:49 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 = starting of Me dicine 92215] 05/26/2021 until 05/26/2022 Future Scheduled 2021-05-25 T4 FREE [code = 3024-7] Ordered: [facility] [employer] Test 12:30:41 05/25/2021 of Medicine Future Scheduled 2021-05-25 TSH [code = 95740-6] Ordered: [facility] [employer] Test 12:30:41 05/25/2021 of Medicine Future Scheduled 2021-05-25 COMPREHENSIVE METABOLIC Ordered: [facility] Test 12:30:41 PANEL [code = 90050-7] 05/25/2021 of Me dicine Future Scheduled 2021-05-25 RENIN ACTIVITY [code = Ordered: [facility] [employer] Test 12:30:41 2915-7] 05/25/2021 of Medicine Future Scheduled 2021-05-25 DHEA-SULFATE [code = Ordered: [facility] Test 12:30:41 2191-5] 05/25/2021 of Medicine Future Scheduled 2021-05-21 Screening for malignant [facility] [employer] Test 09:49:07 neoplasm of colon of Medicin e (procedure) [code = 666813403] Future Scheduled 2021-05-21 Pneumococcal Combined [facility] [employer] Test 09:49:07 (1 of 4 - PCV13) [code of Me dicine = Pneumococcal Combined (1 of 4 - PCV13)] Future Scheduled 2021-05-21 TETANUS SHOT (ADULT) [facility] [employer] Test 09:49:07 [code = TETANUS SHOT of Medi cine (ADULT)] Future Scheduled 2021-05-21 Hepatitis C screening [facility] [employer] [facility] 09:49:07 (procedure) [code = of Medic ine 743233036] Future Scheduled 2021-05-21 Human immunodeficiency [facility] [employer] Test 09:49:07 virus screening of Medicine (procedure) [code = 538324838] Future Scheduled 2021-05-21 Screening for malignant [facility] [employer] Test 09:49:07 neoplasm of cervix of Medici ne (procedure) [code = 310598114] Future Scheduled 2021-05-21 ZOSTER VACCINE (1 of 2) [facility] [employer] Test 09:49:07 [code = ZOSTER VACCINE of Me dicine (1 of 2)] Future Scheduled 2021-05-21 COVID-19 Vaccine (3 - [employer] [facility] 09:49:07 Inadvertent risk 4-dose of M edicine series) [code = COVID-19 Vaccine (3 - Inadvertent risk 4-dose series)] Future Scheduled 2021-05-21 Screening for malignant [facility] [employer] Test 09:49:07 neoplasm of breast of Medici ne (procedure) [code = 453445146] Future Scheduled 2021-05-21 CT CHEST ABDOMEN PELVIS 1 Occurrences [facility] [employer] Test 08:23:07 W CONTRAST [code = [place] [address]-9] 05/21/2021 until 05/21/2022 Future Scheduled 2021-04-30 Screening for malignant [facility] Test 08:34:28 neoplasm of colon of Medicin e (procedure) [code = 619579717] Future Scheduled 2021-04-30 Pneumococcal Combined [facility] Test 08:34:28 (1 of 4 - PCV13) [code of Me dicine = Pneumococcal Combined (1 of 4 - PCV13)] Future Scheduled 2021-04-30 TETANUS SHOT (ADULT) [facility] [employer] Test 08:34:28 [code = TETANUS SHOT of Medi cine (ADULT)] Future Scheduled 2021-04-30 Hepatitis C screening [facility] Test 08:34:28 (procedure) [code = of Medic ine 166941146] Future Scheduled 2021-04-30 Human immunodeficiency [facility] [employer] Test 08:34:28 virus screening of Medicine (procedure) [code = 303316649] Future Scheduled 2021-04-30 Screening for malignant [facility] [employer] Test 08:34:28 neoplasm of cervix of Medici ne (procedure) [code = 890016806] Future Scheduled 2021-04-30 ZOSTER VACCINE (1 of 2) [facility] [employer] Test 08:34:28 [code = ZOSTER VACCINE of Me dicine (1 of 2)] Future Scheduled 2021-04-30 COVID-19 Vaccine (3 - [employer] [facility] 08:34:28 Inadvertent risk 4-dose of M edicine series) [code = COVID-19 Vaccine (3 - Inadvertent risk 4-dose series)] Future Scheduled 2021-04-30 Screening for malignant [facility] [employer] Test 08:34:28 neoplasm of breast of Medici ne (procedure) [code = 568728511] Future Scheduled 2021-04-30 Screening for malignant [facility] Test 08:34:28 neoplasm of colon of Medicin e (procedure) [code = 340833321] Future Scheduled 2021-04-30 Pneumococcal Combined [employer] 08:34:28 (1 of 4 - PCV13) [code of Me dicine = Pneumococcal Combined (1 of 4 - PCV13)] Future Scheduled 2021-04-30 TETANUS SHOT (ADULT) [facility] [employer] [facility] 08:34:28 [code = TETANUS SHOT of Medi cine (ADULT)] Future Scheduled 2021-04-30 Hepatitis C screening [facility] [employer] [facility] 08:34:28 (procedure) [code = of Medic ine 202731671] Future Scheduled 2021-04-30 Human immunodeficiency [facility] [employer] Test 08:34:28 virus screening of Medicine (procedure) [code = 839715021] Future Scheduled 2021-04-30 Screening for malignant [facility] Test 08:34:28 neoplasm of cervix of Medici ne (procedure) [code = 423122179] Future Scheduled 2021-04-30 ZOSTER VACCINE (1 of 2) [facility] Test 08:34:28 [code = ZOSTER VACCINE of Me dicine (1 of 2)] Future Scheduled 2021-04-30 COVID-19 Vaccine (3 - [facility] Test 08:34:28 Inadvertent risk 4-dose of M edicine series) [code = COVID-19 Vaccine (3 - Inadvertent risk 4-dose series)] Future Scheduled 2021-04-30 Screening for malignant [facility] Test 08:34:28 neoplasm of breast of Medici ne (procedure) [code = 811983820] Future Scheduled 2021-04-20 ACTH [code = 2141-0] 1 Occurrences [employer] Test 08:52:47 starting of Medicine 04/20/2021 until 10/18/2021 Future Scheduled 2021-04-20 CORTISOL - AM SPECIMEN 1 Occurrences [facility] [employer] Test 08:52:47 [code = 9813-7] starting of Medicine 04/20/2021 until 10/18/2021 Future Scheduled 2021-04-20 DEXAMETHASONE, SERUM 1 Occurrences [employer] 08:52:47 [code = 36700-6] starting of Medicine 04/20/2021 until 10/18/2021 Future Scheduled 2021-04-20 SALIVARY CORTISOL [code 1 Occurrences [facility] Test 08:52:47 = NOCPT] starting of Medicine 04/20/2021 until 10/18/2021 Future Scheduled 2021-04-20 POTASSIUM [code = [address] [facility] [employer] Test 08:52:47 2823-3] starting of Medicine 04/20/2021 until 10/18/2021 Future Scheduled 2021-04-20 RENIN ACTIVITY [code = 1 Occurrences [facility] Test 08:52:47 2915-7] starting of Medicine 04/20/2021 until 10/18/2021 Future Scheduled 2021-04-20 TSH [code = 18536-0] Ordered: [facility] Test 08:49:34 04/20/2021 of Medicine Future Scheduled 2021-04-20 T4 FREE [code = 3024-7] Ordered: [facility] Test 08:49:34 04/20/2021 of Medicine Future Scheduled 2021-04-20 T3 [code = 3053-6] Ordered: [facility] Test 08:49:34 04/20/2021 of Medicine Future Scheduled 2021-04-20 RENIN ACTIVITY [code = Ordered: [facility] Test 08:49:34 2915-7] 04/20/2021 of Medicine Future Scheduled 2021-04-20 COMPREHENSIVE METABOLIC Ordered: [facility] Test 08:49:34 PANEL [code = 95069-3] 04/20/2021 of Me dicine Future Scheduled 2021-04-20 METANEPHRINES, Ordered: [facility] [employer] Test 08:49:34 PHEOCHROMOCYT [code = 04/20/2021 of Med icine NOCPT] Future Scheduled 2021-04-20 Screening for malignant [facility] Test 07:58:07 neoplasm of colon of Medicin e (procedure) [code = 564840798] Future Scheduled 2021-04-20 Pneumococcal Combined [facility] Test 07:58:07 (1 of 4 - PCV13) [code of Me dicine = Pneumococcal Combined (1 of 4 - PCV13)] Future Scheduled 2021-04-20 TETANUS SHOT (ADULT) [facility] Test 07:58:07 [code = TETANUS SHOT of Medi cine (ADULT)] Future Scheduled 2021-04-20 Hepatitis C screening [employer] 07:58:07 (procedure) [code = of Medic ine 957035754] Future Scheduled 2021-04-20 Human immunodeficiency [employer] Test 07:58:07 virus screening of Medicine (procedure) [code = 025291223] Future Scheduled 2021-04-20 Screening for malignant [facility] [employer] Test 07:58:07 neoplasm of cervix of Medici ne (procedure) [code = 643089071] Future Scheduled 2021-04-20 ZOSTER VACCINE (1 of 2) [facility] [employer] Test 07:58:07 [code = ZOSTER VACCINE of Me dicine (1 of 2)] Future Scheduled 2021-04-20 COVID-19 Vaccine (3 - [employer] [facility] 07:58:07 Inadvertent risk 4-dose of M edicine series) [code = COVID-19 Vaccine (3 - Inadvertent risk 4-dose series)] Future Scheduled 2021-04-20 Screening for malignant [employer] 07:58:07 neoplasm of breast of Medici ne (procedure) [code = 401689567] Future Scheduled 2021-04-09 Screening for malignant [facility] [employer] Test 08:14:44 neoplasm of colon of Medicin e (procedure) [code = 052721338] Future Scheduled 2021-04-09 Pneumococcal Combined [employer] 08:14:44 (1 of 4 - PCV13) [code of Me dicine = Pneumococcal Combined (1 of 4 - PCV13)] Future Scheduled 2021-04-09 TETANUS SHOT (ADULT) [facility] [employer] Test 08:14:44 [code = TETANUS SHOT of Medi cine (ADULT)] Future Scheduled 2021-04-09 Hepatitis C screening [employer] 08:14:44 (procedure) [code = of Medic ine 684329294] Future Scheduled 2021-04-09 Human immunodeficiency [employer] Test 08:14:44 virus screening of Medicine (procedure) [code = 920900134] Future Scheduled 2021-04-09 Screening for malignant [employer] 08:14:44 neoplasm of cervix of Medici ne (procedure) [code = 170721723] Future Scheduled 2021-04-09 ZOSTER VACCINE (1 of 2) [employer] [facility] 08:14:44 [code = ZOSTER VACCINE of Me dicine (1 of 2)] Future Scheduled 2021-04-09 COVID-19 Vaccine (3 - [employer] [facility] 08:14:44 Inadvertent risk 4-dose of M edicine series) [code = COVID-19 Vaccine (3 - Inadvertent risk 4-dose series)] Future Scheduled 2021-04-09 Screening for malignant [facility] [employer] Test 08:14:44 neoplasm of breast of Medici ne (procedure) [code = 740314432] Future Scheduled 2021-04-09 Screening for malignant [facility] Test 08:14:44 neoplasm of colon of Medicin e (procedure) [code = 249951695] Future Scheduled 2021-04-09 Pneumococcal Combined [employer] 08:14:44 (1 of 4 - PCV13) [code of Me dicine = Pneumococcal Combined (1 of 4 - PCV13)] Future Scheduled 2021-04-09 TETANUS SHOT (ADULT) [facility] [employer] Test 08:14:44 [code = TETANUS SHOT of Medi cine (ADULT)] Future Scheduled 2021-04-09 Hepatitis C screening [facility] Test 08:14:44 (procedure) [code = of Medic ine 720516364] Future Scheduled 2021-04-09 Human immunodeficiency [facility] [employer] Test 08:14:44 virus screening of Medicine (procedure) [code = 724242713] Future Scheduled 2021-04-09 Screening for malignant [facility] Test 08:14:44 neoplasm of cervix of Medici ne (procedure) [code = 344757552] Future Scheduled 2021-04-09 ZOSTER VACCINE (1 of 2) [facility] [employer] Test 08:14:44 [code = ZOSTER VACCINE of Me dicine (1 of 2)] Future Scheduled 2021-04-09 COVID-19 Vaccine (3 - [employer] Test 08:14:44 Inadvertent risk 4-dose of M edicine series) [code = COVID-19 Vaccine (3 - Inadvertent risk 4-dose series)] Future Scheduled 2021-04-09 Screening for malignant [facility] [employer] Test 08:14:44 neoplasm of breast of Medici ne (procedure) [code = 008150411] Future Scheduled 2021-04-[address] [facility] Test 00:00:00 (12+) [code = Medical Center DEPRESSION SCREENING (12+)] Future Scheduled 2021-04-[address] [facility] Test 00:00:00 (12+) [code = Medical Center DEPRESSION SCREENING (12+)] Future Scheduled 2021-04-[address] [facility] Test 00:00:00 (12+) [code = Medical Center DEPRESSION SCREENING (12+)] Future Scheduled 2021-04-[address] [facility] Test 00:00:00 (12+) [code = Medical Center DEPRESSION SCREENING (12+)] Future Scheduled 2021-04-[address] [facility] Test 00:00:00 (12+) [code = Medical Center DEPRESSION SCREENING (12+)] Future Scheduled 2021-03-15 Screening for malignant [facility] Test 10:31:14 neoplasm of colon of Medicin e (procedure) [code = 111418261] Future Scheduled 2021-03-15 Pneumococcal Combined [facility] Test 10:31:14 (1 of 4 - PCV13) [code of Me dicine = Pneumococcal Combined (1 of 4 - PCV13)] Future Scheduled 2021-03-15 TETANUS SHOT (ADULT) [facility] [employer] Test 10:31:14 [code = TETANUS SHOT of Medi cine (ADULT)] Future Scheduled 2021-03-15 Hepatitis C screening [facility] Test 10:31:14 (procedure) [code = of Medic ine 357157156] Future Scheduled 2021-03-15 Human immunodeficiency [facility] Test 10:31:14 virus screening of Medicine (procedure) [code = 001624856] Future Scheduled 2021-03-15 Screening for malignant [facility] Test 10:31:14 neoplasm of cervix of Medici ne (procedure) [code = 596375782] Future Scheduled 2021-03-15 ZOSTER VACCINE (1 of 2) [facility] Test 10:31:14 [code = ZOSTER VACCINE of Me dicine (1 of 2)] Future Scheduled 2021-03-15 COVID-19 Vaccine (3 - [facility] Test 10:31:14 Inadvertent risk 4-dose of M edicine series) [code = COVID-19 Vaccine (3 - Inadvertent risk 4-dose series)] Future Scheduled 2021-03-15 Screening for malignant [facility] Test 10:31:14 neoplasm of breast of Medici ne (procedure) [code = 205017070] Future Scheduled 2021-03-15 COMPLETE PFT WITH 1 Occurrences [facility] [employer] Test 10:17:47 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 = starting of Me dicine 81233] 03/15/2021 until 03/16/2022 Future Scheduled 2021-03-12 FLU VACCINE > 6 MONTHS [facility] 16:50:15 [code = FLU VACCINE > 6 of M edicine MONTHS] Future Scheduled 2021-03-12 Screening for malignant [facility] [employer] Test 13:45:01 neoplasm of colon of Medicin e (procedure) [code = 374035089] Future Scheduled 2021-03-12 Pneumococcal Combined [employer] Test 13:45:01 (1 of 4 - PCV13) [code of Me dicine = Pneumococcal Combined (1 of 4 - PCV13)] Future Scheduled 2021-03-12 TETANUS SHOT (ADULT) [facility] [employer] Test 13:45:01 [code = TETANUS SHOT of Medi cine (ADULT)] Future Scheduled 2021-03-12 Hepatitis C screening [facility] Test 13:45:01 (procedure) [code = of Medic ine 915543885] Future Scheduled 2021-03-12 Human immunodeficiency [facility] [employer] Test 13:45:01 virus screening of Medicine (procedure) [code = 979735317] Future Scheduled 2021-03-12 Screening for malignant [facility] [employer] Test 13:45:01 neoplasm of cervix of Medici ne (procedure) [code = 069533923] Future Scheduled 2021-03-12 ZOSTER VACCINE (1 of 2) [facility] [employer] Test 13:45:01 [code = ZOSTER VACCINE of Me dicine (1 of 2)] Future Scheduled 2021-03-12 COVID-19 Vaccine (3 - [facility] Test 13:45:01 Inadvertent risk 4-dose of M edicine series) [code = COVID-19 Vaccine (3 - Inadvertent risk 4-dose series)] Future Scheduled 2021-03-12 Screening for malignant [facility] [employer] Test 13:45:01 neoplasm of breast of Medici ne (procedure) [code = 383025158] Future Scheduled 2021-03-12 Screening for malignant [facility] [employer] Test 08:11:38 neoplasm of colon of Medicin e (procedure) [code = 943811022] Future Scheduled 2021-03-12 Pneumococcal Combined [employer] Test 08:11:38 (1 of 4 - PCV13) [code of Me dicine = Pneumococcal Combined (1 of 4 - PCV13)] Future Scheduled 2021-03-12 COVID-19 Vaccine (1) [facility] [employer] Test 08:11:38 [code = COVID-19 of Medicine Vaccine (1)] Future Scheduled 2021-03-12 TETANUS SHOT (ADULT) [facility] [employer] Test 08:11:38 [code = TETANUS SHOT of Medi cine (ADULT)] Future Scheduled 2021-03-12 Hepatitis C screening [employer] [facility] 08:11:38 (procedure) [code = of Medic ine 867146245] Future Scheduled 2021-03-12 [facility] 08:11:38 virus screening of Medicine (procedure) [code = 169140890] Future Scheduled 2021-03-12 Screening for malignant [facility] [employer] Test 08:11:38 neoplasm of cervix of Medici ne (procedure) [code = 928320292] Future Scheduled 2021-03-12 ZOSTER VACCINE (1 of 2) [facility] [employer] Test 08:11:38 [code = ZOSTER VACCINE of Me dicine (1 of 2)] Future Scheduled 2021-03-12 FLU VACCINE > 6 MONTHS [facility] [employer] Test 08:11:38 [code = FLU VACCINE > 6 of M edicine MONTHS] Future Scheduled 2021-03-12 Screening for malignant [facility] [employer] Test 08:11:38 neoplasm of breast of Medici ne (procedure) [code = 379651139] Future Scheduled 2021-02-19 Screening for malignant [facility] [employer] Test 08:25:58 neoplasm of colon of Medicin e (procedure) [code = 953915250] Future Scheduled 2021-02-19 Pneumococcal Combined [employer] [facility] 08:25:58 (1 of 4 - PCV13) [code of Me dicine = Pneumococcal Combined (1 of 4 - PCV13)] Future Scheduled 2021-02-19 COVID-19 Vaccine (1) [facility] [employer] Test 08:25:58 [code = COVID-19 of Medicine Vaccine (1)] Future Scheduled 2021-02-19 TETANUS SHOT (ADULT) [facility] [employer] Test 08:25:58 [code = TETANUS SHOT of Medi cine (ADULT)] Future Scheduled 2021-02-19 Hepatitis C screening [employer] [facility] 08:25:58 (procedure) [code = of Medic ine 547093037] Future Scheduled 2021-02-19 [facility] 08:25:58 virus screening of Medicine (procedure) [code = 857728042] Future Scheduled 2021-02-19 Screening for malignant [facility] Test 08:25:58 neoplasm of cervix of Medici ne (procedure) [code = 260298887] Future Scheduled 2021-02-19 ZOSTER VACCINE (1 of 2) [facility] [employer] Test 08:25:58 [code = ZOSTER VACCINE of Me dicine (1 of 2)] Future Scheduled 2021-02-19 FLU VACCINE > 6 MONTHS [facility] 08:25:58 [code = FLU VACCINE > 6 of M edicine MONTHS] Future Scheduled 2021-02-19 Screening for malignant [facility] Test 08:25:58 neoplasm of breast of Medici ne (procedure) [code = 872793795] Future Scheduled 2021-02-19 Screening for malignant [facility] Test 08:25:58 neoplasm of colon of Medicin e (procedure) [code = 412865661] Future Scheduled 2021-02-19 Pneumococcal Combined [facility] Test 08:25:58 (1 of 4 - PCV13) [code of Me dicine = Pneumococcal Combined (1 of 4 - PCV13)] Future Scheduled 2021-02-19 COVID-19 Vaccine (1) [facility] [employer] Test 08:25:58 [code = COVID-19 of Medicine Vaccine (1)] Future Scheduled 2021-02-19 TETANUS SHOT (ADULT) [facility] [employer] Test 08:25:58 [code = TETANUS SHOT of Medi cine (ADULT)] Future Scheduled 2021-02-19 Hepatitis C screening [facility] Test 08:25:58 (procedure) [code = of Medic ine 741953557] Future Scheduled 2021-02-19 Human immunodeficiency [facility] [employer] Test 08:25:58 virus screening of Medicine (procedure) [code = 394558015] Future Scheduled 2021-02-19 Screening for malignant [facility] Test 08:25:58 neoplasm of cervix of Medici ne (procedure) [code = 731836409] Future Scheduled 2021-02-19 ZOSTER VACCINE (1 of 2) [facility] [employer] Test 08:25:58 [code = ZOSTER VACCINE of Me dicine (1 of 2)] Future Scheduled 2021-02-19 FLU VACCINE > 6 MONTHS [facility] 08:25:58 [code = FLU VACCINE > 6 of M edicine MONTHS] Future Scheduled 2021-02-19 Screening for malignant [facility] [employer] Test 08:25:58 neoplasm of breast of Medici ne (procedure) [code = 340550746] Future Scheduled 2021-02-10 Screening for malignant [facility] [employer] Test 08:44:10 neoplasm of colon of Medicin e (procedure) [code = 322150147] Future Scheduled 2021-02-10 BCM AMB Pneumococcal [facility] [employer] Test 08:44:10 Combined (testing) (1 of Med icine of 4 - PCV13) [code = BCM AMB Pneumococcal Combined (testing) (1 of 4 - PCV13)] Future Scheduled 2021-02-10 COVID-19 Vaccine (1) [facility] [employer] Test 08:44:10 [code = COVID-19 of Medicine Vaccine (1)] Future Scheduled 2021-02-10 TETANUS SHOT (ADULT) [facility] [employer] Test 08:44:10 [code = TETANUS SHOT of Medi cine (ADULT)] Future Scheduled 2021-02-10 Hepatitis C screening [facility] [employer] Test 08:44:10 (procedure) [code = of Medic ine 097113833] Future Scheduled 2021-02-10 [facility] 08:44:10 virus screening of Medicine (procedure) [code = 357326821] Future Scheduled 2021-02-10 Screening for malignant [facility] Test 08:44:10 neoplasm of cervix of Medici ne (procedure) [code = 041147937] Future Scheduled 2021-02-10 ZOSTER VACCINE (1 of 2) [facility] [employer] Test 08:44:10 [code = ZOSTER VACCINE of Wa dicine (1 of 2)] Future Scheduled 2021-02-10 FLU VACCINE > 6 MONTHS [facility] 08:44:10 [code = FLU VACCINE > 6 of M edicine MONTHS] Future Scheduled 2021-02-10 Screening for malignant [facility] Test 08:44:10 neoplasm of breast of Medici ne (procedure) [code = 291704991] Future Scheduled 2021-02-09 CERVICAL/THORACIC 1 Occurrences [employer] Test 10:27:18 MEDIAL BRANCH BLOCK - starting of Med icine LEVEL 1&2 [code = 02/09/2021 until 80603] 02/09/2022 Future Scheduled 2021-02-09 XR THORACIC SPINE 1 Occurrences [employer] Test 10:19:56 (COMPLETE) [[place] [address]-7] 02/09/2021 until 02/09/2022 Future Scheduled 2021-01-29 CT CHEST ABDOMEN PELVIS 1 Occurrences [facility] Test 08:27:16 W CONTRAST [code = [place] [address]-2] 01/29/2021 until 01/29/2022 Future Scheduled 2021-01-29 Screening for malignant [facility] Test 07:43:48 neoplasm of colon of Medicin e (procedure) [code = 512035359] Future Scheduled 2021-01-29 COVID-19 Vaccine (1) [facility] [employer] Test 07:43:48 [code = COVID-19 of Medicine Vaccine (1)] Future Scheduled 2021-01-29 TETANUS SHOT (ADULT) [facility] [employer] Test 07:43:48 [code = TETANUS SHOT of Medi cine (ADULT)] Future Scheduled 2021-01-29 Hepatitis C screening [facility] Test 07:43:48 (procedure) [code = of Medic ine 719202205] Future Scheduled 2021-01-29 Human immunodeficiency [facility] Test 07:43:48 virus screening of Medicine (procedure) [code = 778499478] Future Scheduled 2021-01-29 Screening for malignant [facility] Test 07:43:48 neoplasm of cervix of Medici ne (procedure) [code = 183699063] Future Scheduled 2021-01-29 ZOSTER VACCINE (1 of 2) [facility] Test 07:43:48 [code = ZOSTER VACCINE of Me dicine (1 of 2)] Future Scheduled 2021-01-29 FLU VACCINE > 6 MONTHS [facility] 07:43:48 [code = FLU VACCINE > 6 of M edicine MONTHS] Future Scheduled 2021-01-29 Screening for malignant [facility] Test 07:43:48 neoplasm of breast of Medici ne (procedure) [code = 074872475] Future Scheduled 2021-01-29 Screening for malignant [facility] Test 07:43:48 neoplasm of colon of Medicin e (procedure) [code = 697363639] Future Scheduled 2021-01-29 COVID-19 Vaccine (1) [facility] [employer] Test 07:43:48 [code = COVID-19 of Medicine Vaccine (1)] Future Scheduled 2021-01-29 TETANUS SHOT (ADULT) [facility] [employer] Test 07:43:48 [code = TETANUS SHOT of Medi cine (ADULT)] Future Scheduled 2021-01-29 Hepatitis C screening [employer] [facility] 07:43:48 (procedure) [code = of Medic ine 443432674] Future Scheduled 2021-01-29 Human immunodeficiency [facility] [employer] Test 07:43:48 virus screening of Medicine (procedure) [code = 433722508] Future Scheduled 2021-01-29 Screening for malignant [employer] Test 07:43:48 neoplasm of cervix of Medici ne (procedure) [code = 024845437] Future Scheduled 2021-01-29 ZOSTER VACCINE (1 of 2) [facility] [employer] Test 07:43:48 [code = ZOSTER VACCINE of Me dicine (1 of 2)] Future Scheduled 2021-01-29 FLU VACCINE > 6 MONTHS [facility] [employer] Test 07:43:48 [code = FLU VACCINE > 6 of M edicine MONTHS] Future Scheduled 2021-01-29 Screening for malignant [employer] Test 07:43:48 neoplasm of breast of Medici ne (procedure) [code = 374336466] Future Scheduled 2021-01-08 Screening for malignant [facility] [employer] Test 08:55:51 neoplasm of colon of Medicin e (procedure) [code = 986792364] Future Scheduled 2021-01-08 COVID-19 Vaccine (1) [facility] [employer] Test 08:55:51 [code = COVID-19 of Medicine Vaccine (1)] Future Scheduled 2021-01-08 TETANUS SHOT (ADULT) [facility] [employer] Test 08:55:51 [code = TETANUS SHOT of Medi cine (ADULT)] Future Scheduled 2021-01-08 Hepatitis C screening [employer] Test 08:55:51 (procedure) [code = of Medic ine 292953129] Future Scheduled 2021-01-08 Human immunodeficiency [facility] [employer] Test 08:55:51 virus screening of Medicine (procedure) [code = 458849219] Future Scheduled 2021-01-08 Screening for malignant [employer] Test 08:55:51 neoplasm of cervix of Medici ne (procedure) [code = 810522213] Future Scheduled 2021-01-08 ZOSTER VACCINE (1 of 2) [employer] Test 08:55:51 [code = ZOSTER VACCINE of Me dicine (1 of 2)] Future Scheduled 2021-01-08 FLU VACCINE > 6 MONTHS [facility] [employer] Test 08:55:51 [code = FLU VACCINE > 6 of M edicine MONTHS] Future Scheduled 2021-01-08 Screening for malignant [facility] [employer] Test 08:55:51 neoplasm of breast of Medici ne (procedure) [code = 327077872] Future Scheduled 2021-01-07 COMPREHENSIVE METABOLIC Expected: [employer] [facility] 00:00:00 PANEL [code = 13025-4] 01/07/2021 of Me dicine (Approximate), Expires: 02/07/2021 Future Scheduled 2021-01-07 CBC W/AUTO DIFF WITH Expected: [facility] [employer] Test 00:00:00 PLATELETS [code = 01/07/2021 of Medicin e 05327-1] (Approximate), Expires: 02/07/2021 Future Scheduled 2020-12-18 Screening for malignant [facility] [employer] Test 08:38:12 neoplasm of colon of Medicin e (procedure) [code = 986717820] Future Scheduled 2020-12-18 COVID-19 Vaccine (1) [facility] [employer] Test 08:38:12 [code = COVID-19 of Medicine Vaccine (1)] Future Scheduled 2020-12-18 TETANUS SHOT (ADULT) [facility] [employer] Test 08:38:12 [code = TETANUS SHOT of Medi cine (ADULT)] Future Scheduled 2020-12-18 Hepatitis C screening [facility] [employer] Test 08:38:12 (procedure) [code = of Medic ine 662952629] Future Scheduled 2020-12-18 Human immunodeficiency [facility] [employer] Test 08:38:12 virus screening of Medicine (procedure) [code = 246789772] Future Scheduled 2020-12-18 Screening for malignant [employer] Test 08:38:12 neoplasm of cervix of Medici ne (procedure) [code = 394955895] Future Scheduled 2020-12-18 ZOSTER VACCINE (1 of [...] breast of Medici ne (procedure) [code = 673308590] Future Scheduled 2020-12-18 Screening for malignant [employer] [facility] 08:38:12 neoplasm of colon of Medicin e (procedure) [code = 653911140] Future Scheduled 2020-12-18 COVID-19 Vaccine (1) [facility] [employer] [facility] 08:38:12 [code = COVID-19 of Medicine Vaccine (1)] Future Scheduled 2020-12-18 TETANUS SHOT (ADULT) [facility] [employer] Test 08:38:12 [code = TETANUS SHOT of Medi cine (ADULT)] Future Scheduled 2020-12-18 Hepatitis C screening [employer] [facility] 08:38:12 (procedure) [code = of Medic ine 576322189] Future Scheduled 2020-12-18 Human immunodeficiency [facility] [employer] Test 08:38:12 virus screening of Medicine (procedure) [code = 054478310] Future Scheduled 2020-12-18 Screening for malignant [facility] [employer] Test 08:38:12 neoplasm of cervix of Medici ne (procedure) [code = 286245608] Future Scheduled 2020-12-18 ZOSTER VACCINE (1 of 2) [facility] [employer] Test 08:38:12 [code = ZOSTER VACCINE of Me dicine (1 of 2)] Future Scheduled 2020-12-18 FLU VACCINE > 6 MONTHS [facility] [employer] [facility] 08:38:12 [code = FLU VACCINE > 6 of M edicine MONTHS] Future Scheduled 2020-12-18 Screening for malignant [facility] [employer] Test 08:38:12 neoplasm of breast of Medici ne (procedure) [code = 845750559] Future Scheduled 2020-12-18 Screening for malignant [facility] [employer] Test 08:38:12 neoplasm of colon of Medicin e (procedure) [code = 583476392] Future Scheduled 2020-12-18 COVID-19 Vaccine (1) [facility] [employer] [facility] 08:38:12 [code = COVID-19 of Medicine Vaccine (1)] Future Scheduled 2020-12-18 TETANUS SHOT (ADULT) [facility] [employer] [facility] 08:38:12 [code = TETANUS SHOT of Medi cine (ADULT)] Future Scheduled 2020-12-18 Hepatitis C screening [employer] [facility] 08:38:12 (procedure) [code = of Medic ine 445469117] Future Scheduled 2020-12-18 Human immunodeficiency [facility] [employer] Test 08:38:12 virus screening of Medicine (procedure) [code = 676832801] Future Scheduled 2020-12-18 Screening for malignant [facility] Test 08:38:12 neoplasm of cervix of Medici ne (procedure) [code = 096407119] Future Scheduled 2020-12-18 ZOSTER VACCINE (1 of 2) [facility] [employer] Test 08:38:12 [code = ZOSTER VACCINE of Me dicine (1 of 2)] Future Scheduled 2020-12-18 FLU VACCINE > 6 MONTHS [facility] [employer] [facility] 08:38:12 [code = FLU VACCINE > 6 of M edicine MONTHS] Future Scheduled 2020-12-18 Screening for malignant [facility] Test 08:38:12 neoplasm of breast of Medici ne (procedure) [code = 196658670] Future Scheduled 2020-12-18 Screening for malignant [facility] [employer] Test 08:38:12 neoplasm of colon of Medicin e (procedure) [code = 638491688] Future Scheduled 2020-12-18 COVID-19 Vaccine (1) [facility] Test 08:38:12 [code = COVID-19 of Medicine Vaccine (1)] Future Scheduled 2020-12-18 TETANUS SHOT (ADULT) [facility] Test 08:38:12 [code = TETANUS SHOT of Medi cine (ADULT)] Future Scheduled 2020-12-18 Hepatitis C screening [facility] Test 08:38:12 (procedure) [code = of Medic ine 950357785] Future Scheduled 2020-12-18 Human immunodeficiency [facility] Test 08:38:12 virus screening of Medicine (procedure) [code = 167075210] Future Scheduled 2020-12-18 Screening for malignant [facility] Test 08:38:12 neoplasm of cervix of Medici ne (procedure) [code = 981071898] Future Scheduled 2020-12-18 ZOSTER VACCINE (1 of 2) [employer] [facility] 08:38:12 [code = ZOSTER VACCINE of Me dicine (1 of 2)] Future Scheduled 2020-12-18 FLU VACCINE > 6 MONTHS [facility] [employer] Test 08:38:12 [code = FLU VACCINE > 6 of M edicine MONTHS] Future Scheduled 2020-12-18 Screening for malignant [facility] Test 08:38:12 neoplasm of breast of Medici ne (procedure) [code = 840091461] Future Scheduled 2020-11-27 Screening for malignant [employer] [facility] 08:33:31 neoplasm of colon of Medicin e (procedure) [code = 173940715] Future Scheduled 2020-11-27 COVID-19 Vaccine (1) [facility] [employer] [facility] 08:33:31 [code = COVID-19 of Medicine Vaccine (1)] Future Scheduled 2020-11-27 TETANUS SHOT (ADULT) [facility] [employer] [facility] 08:33:31 [code = TETANUS SHOT of Medi cine (ADULT)] Future Scheduled 2020-11-27 Hepatitis C screening [employer] [facility] 08:33:31 (procedure) [code = of Medic ine 459734306] Future Scheduled 2020-11-27 Human immunodeficiency [facility] [employer] Test 08:33:31 virus screening of Medicine (procedure) [code = 263688273] Future Scheduled 2020-11-27 Screening for malignant [employer] [facility] 08:33:31 neoplasm of cervix of Medici ne (procedure) [code = 723319084] Future Scheduled 2020-11-27 ZOSTER VACCINE (1 of 2) [facility] [employer] Test 08:33:31 [code = ZOSTER VACCINE of Wa dicine (1 of 2)] Future Scheduled 2020-11-27 FLU VACCINE > 6 MONTHS [facility] [employer] [facility] 08:33:31 [code = FLU VACCINE > 6 of M edicine MONTHS] Future Scheduled 2020-11-27 Screening for malignant [facility] [employer] Test 08:33:31 neoplasm of breast of Medici ne (procedure) [code = 315869403] Future Scheduled 2020-11-27 Screening for malignant [employer] [facility] 08:33:31 neoplasm of colon of Medicin e (procedure) [code = 875876679] Future Scheduled 2020-11-27 COVID-19 Vaccine (1) [facility] [employer] Test 08:33:31 [code = COVID-19 of Medicine Vaccine (1)] Future Scheduled 2020-11-27 TETANUS SHOT (ADULT) [facility] [employer] Test 08:33:31 [code = TETANUS SHOT of Medi cine (ADULT)] Future Scheduled 2020-11-27 Hepatitis C screening [employer] [facility] 08:33:31 (procedure) [code = of Medic ine 027075797] Future Scheduled 2020-11-27 Human immunodeficiency [facility] [employer] Test 08:33:31 virus screening of Medicine (procedure) [code = 768833636] Future Scheduled 2020-11-27 Screening for malignant [facility] Test 08:33:31 neoplasm of cervix of Medici ne (procedure) [code = 431977146] Future Scheduled 2020-11-27 ZOSTER VACCINE (1 of 2) [facility] Test 08:33:31 [code = ZOSTER VACCINE of Me dicine (1 of 2)] Future Scheduled 2020-11-27 FLU VACCINE > 6 MONTHS [facility] 08:33:31 [code = FLU VACCINE > 6 of M edicine MONTHS] Future Scheduled 2020-11-27 Screening for malignant [facility] Test 08:33:31 neoplasm of breast of Medici ne (procedure) [code = 803976802] Future Scheduled 2020-10-16 CT CHEST ABDOMEN PELVIS 1 Occurrences [facility] Test 09:12:02 W CONTRAST [code = [place] [address]-5] 10/16/2020 until 10/16/2021 Future Scheduled 2020-10-16 Screening for malignant [facility] Test 08:54:58 neoplasm of colon of Medicin e (procedure) [code = 925100975] Future Scheduled 2020-10-16 COVID-19 Vaccine (1) [facility] Test 08:54:58 [code = COVID-19 of Medicine Vaccine (1)] Future Scheduled 2020-10-16 TETANUS SHOT (ADULT) [facility] [employer] Test 08:54:58 [code = TETANUS SHOT of Medi cine (ADULT)] Future Scheduled 2020-10-16 Hepatitis C screening [facility] Test 08:54:58 (procedure) [code = of Medic ine 780097431] Future Scheduled 2020-10-16 [facility] 08:54:58 virus screening of Medicine (procedure) [code = 697310298] Future Scheduled 2020-10-16 Screening for malignant [facility] Test 08:54:58 neoplasm of cervix of Medici ne (procedure) [code = 286515238] Future Scheduled 2020-10-16 ZOSTER VACCINE (1 of 2) [facility] [employer] Test 08:54:58 [code = ZOSTER VACCINE of Me dicine (1 of 2)] Future Scheduled 2020-10-16 FLU VACCINE > 6 MONTHS [facility] 08:54:58 [code = FLU VACCINE > 6 of M edicine MONTHS] Future Scheduled 2020-10-16 Screening for malignant [facility] [employer] Test 08:54:58 neoplasm of breast of Medici ne (procedure) [code = [id number]] Future Scheduled 2020-09-25 Screening for malignant [facility] [employer] Test 08:33:19 neoplasm of colon of Medicin e (procedure) [code = 207870532] Future Scheduled 2020-09-25 Screening for malignant [facility] [employer] Test 08:33:19 neoplasm of breast of Medici ne (procedure) [code = 572392992] Future Scheduled 2020-09-25 COVID-19 Vaccine (1) [facility] [facility] [employer] Test 08:33:19 [code = COVID-19 of Medicine Vaccine (1)] Future Scheduled 2020-09-25 TETANUS SHOT (ADULT) [employer] [facility] [employer] Test 08:33:19 [code = TETANUS SHOT of Medi cine (ADULT)] Future Scheduled 2020-09-25 Hepatitis C screening [facility] Test 08:33:19 (procedure) [code = of Medic ine [id number]] Future Scheduled 2020-09-25 Human immunodeficiency [facility] [employer] Test 08:33:19 virus screening of Medicine (procedure) [code = 213488606] Future Scheduled 2020-09-25 Screening for malignant [facility] [employer] Test 08:33:19 neoplasm of cervix of Medici ne (procedure) [code = 604662276] Future Scheduled 2020-09-25 ZOSTER VACCINE (1 of 2) [facility] [employer] Test 08:33:19 [code = ZOSTER VACCINE of Me dicine (1 of 2)] Future Scheduled 2020-09-25 FLU VACCINE > 6 MONTHS [facility] [employer] [employer] Test 08:33:19 [code = FLU VACCINE > 6 of M edicine MONTHS] Future Scheduled 2020-09-04 Screening for malignant [facility] [employer] Test 08:44:54 neoplasm of colon of Medicin e (procedure) [code = 243846028] Future Scheduled 2020-09-04 Screening for malignant [facility] [employer] Test 08:44:54 neoplasm of breast of Medici ne (procedure) [code = 912624675] Future Scheduled 2020-09-04 COVID-19 Vaccine (1) [employer] Test 08:44:54 [code = COVID-19 of Medicine Vaccine (1)] Future Scheduled 2020-09-04 TETANUS SHOT (ADULT) [employer] Test 08:44:54 [code = TETANUS SHOT of Medi cine (ADULT)] Future Scheduled 2020-09-04 Hepatitis C screening [facility] Test 08:44:54 (procedure) [code = of Medic ine [id number]] Future Scheduled 2020-09-04 Human immunodeficiency B [facility] Test 08:44:54 virus screening of Medicine (procedure) [code = 990610980] Future Scheduled 2020-09-04 Screening for malignant [facility] Test 08:44:54 neoplasm of cervix of Medici ne (procedure) [code = 654938924] Future Scheduled 2020-09-04 ZOSTER VACCINE (1 of 2) [facility] Test 08:44:54 [code = ZOSTER VACCINE of Me dicine (1 of 2)] Future Scheduled 2020-09-04 FLU VACCINE > 6 MONTHS B [facility] Test 08:44:54 [code = FLU VACCINE > 6 of M edicine MONTHS] Future Scheduled 2020-06-02 COVID-19 [facility]ACCINE (3 [facility]:00 Mixed Product risk Medical C enter series) [code = COVID-19 VACCINE (3 - Mixed Product risk series)] Future Scheduled 2020-06-02 COVID-19 VACCINE (3 - [facility] Test 00:00:00 Mixed Product risk Medical C enter series) [code = COVID-19 VACCINE (3 - Mixed Product risk series)] Future Scheduled 2020-06-02 COVID-19 VACCINE (3 - [facility] Test 00:00:00 Mixed Product risk Medical C enter series) [code = COVID-19 VACCINE (3 - Mixed Product risk series)] Future Scheduled 2020-06-02 COVID-19 VACCINE (3 - [facility] Test 00:00:00 Mixed Product risk Medical C enter series) [code = COVID-19 VACCINE (3 - Mixed Product risk series)] Future Scheduled 2020-06-02 COVID-19 VACCINE (3 - [facility] Test 00:00:00 Mixed Product risk Medical C enter series) [code = COVID-19 VACCINE (3 - Mixed Product risk series)] Future Scheduled 2020-06-02 COVID-19 VACCINE (3 - [facility] Test 00:00:00 Mixed Product risk Medical C enter series) [code = COVID-19 VACCINE (3 - Mixed Product risk series)] Future Scheduled 2020-06-02 COVID-19 VACCINE (3 - [facility] Test 00:00:00 Mixed Product risk Medical C enter series) [code = COVID-19 VACCINE (3 - Mixed Product risk series)] Future Scheduled 2020-06-02 COVID-19 VACCINE (3 - [facility] Test 00:00:00 Mixed Product risk Medical C enter series) [code = COVID-19 VACCINE (3 - Mixed Product risk series)] Future Scheduled 2020-06-02 COVID-19 VACCINE (3 - [facility] Test 00:00:00 Mixed Product risk Medical C enter series) [code = COVID-19 VACCINE (3 - Mixed Product risk series)] Future Scheduled 2020-06-02 COVID-19 VACCINE (3 - [facility] Test 00:00:00 Mixed Product risk Medical C enter series) [code = COVID-19 VACCINE (3 - Mixed Product risk series)] Future Scheduled 2020-06-02 COVID-19 VACCINE (3 - [facility] Test 00:00:00 Mixed Product risk Medical C enter series) [code = COVID-19 VACCINE (3 - Mixed Product risk series)] Future Scheduled 2020-06-02 COVID-19 VACCINE (3 - [facility] Test 00:00:00 Mixed Product risk Medical C enter series) [code = COVID-19 VACCINE (3 - Mixed Product risk series)] Future Scheduled 2020-06-02 COVID-19 VACCINE (3 - [facility] Test 00:00:00 Mixed Product risk Medical C enter series) [code = COVID-19 VACCINE (3 - Mixed Product risk series)] Diagnostic Test 2019-12-30 ECHO, COMPLETE [code = Expected: [facility] Pending 00:00:00 [id number]] 12/30/2019, of Medicine Expires: 06/28/2020 Future Scheduled 2009-12-16 SHINGLES VACCINES ([address] [facility] Test 00:00:00 2) [code = SHINGLES Medical Center VACCINES (1 of 2)] Future Scheduled 2009-12-16 SHINGLES VACCINES ([address] [facility] Test 00:00:00 2) [code = SHINGLES Medical Center VACCINES (1 of 2)] Future Scheduled 2009-12-16 SHINGLES VACCINES ([address] [facility] Test 00:00:00 2) [code = SHINGLES Medical Center VACCINES (1 of 2)] Future Scheduled 2009-12-16 SHINGLES VACCINES ([address] [facility] Test 00:00:00 2) [code = SHINGLES Medical Center VACCINES (1 of 2)] Future Scheduled 2009-12-16 SHINGLES VACCINES ([address] [facility] Test 00:00:00 2) [code = SHINGLES Medical Center VACCINES (1 of 2)] Future Scheduled 2009-12-16 SHINGLES VACCINES ([address] [facility] Test 00:00:00 2) [code = SHINGLES Medical Center VACCINES (1 of 2)] Future Scheduled 2009-12-16 SHINGLES VACCINES ([address] [facility] Test 00:00:00 2) [code = SHINGLES Medical Center VACCINES (1 of 2)] Future Scheduled 2009-12-16 SHINGLES VACCINES ([address] [facility] Test 00:00:00 2) [code = SHINGLES Medical Center VACCINES (1 of 2)] Future Scheduled 2009-12-16 SHINGLES VACCINES ([address] [facility] Test 00:00:00 2) [code = SHINGLES Medical Center VACCINES (1 of 2)] Future Scheduled 2009-12-16 SHINGLES VACCINES ([address] [facility] Test 00:00:00 2) [code = SHINGLES Medical Center VACCINES (1 of 2)] Future Scheduled 1980-12-16 Screening for malignant [facility] Test 00:00:00 neoplasm of cervix Medical C enter (procedure) [code = 661761117] Future Scheduled 1980-12-16 Screening for malignant [facility] Test 00:00:00 neoplasm of cervix Medical C enter (procedure) [code = 293320456] Future Scheduled 1980-12-16 Screening for malignant [facility] Test 00:00:00 neoplasm of cervix Medical C enter (procedure) [code = 345969870] Future Scheduled 1980-12-16 Screening for malignant [facility] Test 00:00:00 neoplasm of cervix Medical C enter (procedure) [code = 454830685] Future Scheduled 1980-12-16 Screening for malignant [facility] Test 00:00:00 neoplasm of cervix Medical C enter (procedure) [code = 261004225] Future Scheduled 1980-12-16 Screening for malignant [facility] Test 00:00:00 neoplasm of cervix Medical C enter (procedure) [code = 126008199] Future Scheduled 1980-12-16 Screening for malignant [facility] Test 00:00:00 neoplasm of cervix Medical C enter (procedure) [code = 465365239] Future Scheduled 1980-12-16 Screening for malignant [facility] Test 00:00:00 neoplasm of cervix Medical C enter (procedure) [code = 772941948] Future Scheduled 1980-12-16 Screening for malignant [facility] Test 00:00:00 neoplasm of cervix Medical C enter (procedure) [code = 498077888] Future Scheduled 1980-12-16 Screening for malignant [facility] Test 00:00:00 neoplasm of cervix Medical C enter (procedure) [code = 984837759] Future Scheduled 1980-12-16 Screening for malignant [facility] Test 00:00:00 neoplasm of cervix Medical C enter (procedure) [code = 017908435] Future Scheduled 1980-12-16 Screening for malignant [facility] Test 00:00:00 neoplasm of cervix Medical C enter (procedure) [code = 740151593] Future Scheduled 1980-12-16 Screening for malignant [facility] Test 00:00:00 neoplasm of cervix Medical C enter (procedure) [code = 722933212] Future Scheduled 1978-12-16 DTAP/TDAP/TD [facility]ACCINES [facility] Test 00:00:00 (1 - Tdap) [code = Medical C enter DTAP/TDAP/TD VACCINES (1 - Tdap)] Future Scheduled 1978-12-16 DTAP/TDAP/TD [facility]ACCINES [facility] Test 00:00:00 (1 - Tdap) [code = Medical C enter DTAP/TDAP/TD VACCINES (1 - Tdap)] Future Scheduled 1978-12-16 DTAP/TDAP/TD [facility]ACCINES [facility] Test 00:00:00 (1 - Tdap) [code = Medical C enter DTAP/TDAP/TD VACCINES (1 - Tdap)] Future Scheduled 1978-12-16 DTAP/TDAP/TD [facility]ACCINES [facility] Test 00:00:00 (1 - Tdap) [code = Medical C enter DTAP/TDAP/TD VACCINES (1 - Tdap)] Future Scheduled 1978-12-16 SHINGLES VACCINES ([address] [facility] Test 00:00:00 2) [code = [facility] VACCINES (1 of 2)] Future Scheduled 1978-12-16 DTAP/TDAP/TD VACCINES [facility] 00:00:00 (1 - Tdap) [code = Medical C enter DTAP/TDAP/TD VACCINES (1 - Tdap)] Future Scheduled 1978-12-16 SHINGLES VACCINES ([address] [facility] Test 00:00:00 2) [code = [facility] VACCINES (1 of 2)] Future Scheduled 1978-12-16 [facility] (1 - Tdap) [code = Medical C enter DTAP/TDAP/TD VACCINES (1 - Tdap)] Future Scheduled 1978-12-16 [facility]00 (1 - Tdap) [code = Medical C enter DTAP/TDAP/TD VACCINES (1 - Tdap)] Future Scheduled 1978-12-16 DTAP/TDAP/TD [facility]ACCINES [facility] 00:00:00 (1 - Tdap) [code = Medical C enter DTAP/TDAP/TD VACCINES (1 - Tdap)] Future Scheduled 1978-12-16 DTAP/TDAP/TD [facility]ACCINES [facility] Test 00:00:00 (1 - Tdap) [code = Medical C enter DTAP/TDAP/TD VACCINES (1 - Tdap)] Future Scheduled 1978-12-16 DTAP/TDAP/TD [facility]ACCINES [facility] 00:00:00 (1 - Tdap) [code = Medical C enter DTAP/TDAP/TD VACCINES (1 - Tdap)] Future Scheduled 1978-12-16 DTAP/TDAP/TD [facility]ACCINES [facility] 00:00:00 (1 - Tdap) [code = Medical C enter DTAP/TDAP/TD VACCINES (1 - Tdap)] Future Scheduled 1978-12-16 DTAP/TDAP/TD [facility]ACCINES [facility] 00:00:00 (1 - Tdap) [code = Medical C enter DTAP/TDAP/TD VACCINES (1 - Tdap)] Future Scheduled 1978-12-16 DTAP/TDAP/TD [facility]ACCINES [facility] 00:00:00 (1 - Tdap) [code = Medical C enter DTAP/TDAP/TD VACCINES (1 - Tdap)] Future Scheduled 1978-12-16 SHINGLES VACCINES ([address] [facility] Test 00:00:00 2) [code = SHINGLES Medical Center VACCINES (1 of 2)] Future Scheduled 1977-12-16 HEPATITIS C [facility]CRE[facility] 00:00:00 [code = HEPATITIS C Medical Center SCREENING] Future Scheduled 1977-12-16 [facility]PATITIS C [facility]ING [facility] 00:00:00 [code = HEPATITIS C Medical Center SCREENING] Future Scheduled 1977-12-16 [facility]PATITIS C [facility] 00:00:00 [code = HEPATITIS C Medical Center SCREENING] Future Scheduled 1977-12-16 HEPATITIS C [facility] 00:00:00 [code = HEPATITIS C Medical Center SCREENING] Future Scheduled 1977-12-16 HEPATITIS C [facility] 00:00:00 [code = HEPATITIS C Medical Center SCREENING] Future Scheduled 1977-12-16 HEPATITIS C [facility] 00:00:00 [code = HEPATITIS C Medical Center SCREENING] Future Scheduled 1977-12-16 [facility]PATITIS C [facility] 00:00:00 [code = HEPATITIS C Medical Center SCREENING] Future Scheduled 1977-12-16 HEPATITIS C [facility] 00:00:00 [code = HEPATITIS C Medical Center SCREENING] Future Scheduled 1977-12-16 HEPATITIS C [facility]ING [facility] 00:00:00 [code = HEPATITIS C Medical Center SCREENING] Future Scheduled 1977-12-16 HEPATITIS C [facility]CRE[facility]ING [facility] 00:00:00 [code = HEPATITIS C Medical Center SCREENING] Future Scheduled 1977-12-16 HEPATITIS C [facility]ING [facility] 00:00:00 [code = HEPATITIS C Medical Center SCREENING] Future Scheduled 1977-12-16 HEPATITIS C [facility] 00:00:00 [code = HEPATITIS C Medical Center SCREENING] Future Scheduled 1977-12-16 [facility]PATITIS C [facility] 00:00:00 [code = HEPATITIS C Medical Center SCREENING] Future Scheduled [address] [facility] Test 00:00:00 Counseling and Medical Cente r Screening (12+) [code = Tobacco Cessation Counseling and Screening (12+)] Future Scheduled [address] [facility] Test 00:00:00 Counseling and Medical Cente r Screening (12+) [code = Tobacco Cessation Counseling and Screening (12+)] Future Scheduled 1959 CT Colonography (combo) [facility] Test 00:00:00 [code = CT Colonography [facility] Center (combo)] Future Scheduled 1959 Screening for malignant [facility] Test 00:00:00 neoplasm of colon Medical Ce nter (procedure) [code = 496001482] Future Scheduled 1959 Screening for malignant [facility] Test 00:00:00 neoplasm of colon Medical Ce nter (procedure) [code = 364476078] Future Scheduled 1959 Screening for malignant [facility] Test 00:00:00 neoplasm of colon Medical Ce nter (procedure) [code = 678377224] Future Scheduled 1959 Screening for malignant [facility] Test 00:00:00 neoplasm of colon Medical Ce nter (procedure) [code = 377875092] Future Scheduled 1959 Sigmoidoscopy [code = [facility] 00:[facility] Sigmoidoscopy] Medical Cente r Future Scheduled 1959 CT Colonography (combo) [facility] Test 00:00:00 [code = CT Colonography [facility] Center (combo)] Future Scheduled 1959 Screening for malignant [facility] Test 00:00:00 neoplasm of colon Medical Ce nter (procedure) [code = 292288878] Future Scheduled 1959 Screening for malignant [facility] Test 00:00:00 neoplasm of colon Medical Ce nter (procedure) [code = 303377160] Future Scheduled 1959 Screening for malignant [facility] Test 00:00:00 neoplasm of colon Medical Ce nter (procedure) [code = 948852969] Future Scheduled 1959 Screening for malignant [facility] Test 00:00:00 neoplasm of colon Medical Ce nter (procedure) [code = 167351556] Future Scheduled 1959 Sigmoidoscopy [code = [facility] Test 00:[facility]:00 Sigmoidoscopy] Medical [place] r Future Scheduled 1959 CT Colonography (combo) [facility] Test 00:00:00 [code = CT Colonography [facility] (combo)] Future Scheduled 1959 Screening for malignant [facility] Test 00:00:00 neoplasm of colon Medical Ce nter (procedure) [code = 804985903] Future Scheduled 1959 Screening for malignant [facility] Test 00:00:00 neoplasm of colon Medical Ce nter (procedure) [code = 318140695] Future Scheduled 1959 Screening for malignant [facility] Test 00:00:00 neoplasm of colon Medical Ce nter (procedure) [code = 746852355] Future Scheduled 1959 Screening for malignant [facility] Test 00:00:00 neoplasm of colon Medical Ce nter (procedure) [code = 965156001] Future Scheduled 1959 Sigmoidoscopy [code = [facility] 00:[facility]:00 Sigmoidoscopy] Medical [facility] r Future Scheduled 1959 CT Colonography (combo) [facility] Test 00:00:00 [code = CT Colonography [facility] Center (combo)] Future Scheduled 1959 Screening for malignant [facility] Test 00:00:00 neoplasm of colon Medical Ce nter (procedure) [code = 684663289] Future Scheduled 1959 Screening for malignant [facility] Test 00:00:00 neoplasm of colon Medical Ce nter (procedure) [code = 673365692] Future Scheduled 1959 Screening for malignant [facility] Test 00:00:00 neoplasm of colon Medical Ce nter (procedure) [code = 567266116] Future Scheduled 1959 Screening for malignant [facility] Test 00:00:00 neoplasm of colon Medical Ce nter (procedure) [code = 313856914] Future Scheduled 1959 Sigmoidoscopy [code = [facility] Test 00:00:00 Sigmoidoscopy] Medical [place] r Future Scheduled 1959 CT Colonography (combo) [facility] Test 00:00:00 [code = CT Colonography [facility] (combo)] Future Scheduled 1959 Screening for malignant [facility] Test 00:00:00 neoplasm of colon Medical Ce nter (procedure) [code = 203648585] Future Scheduled 1959 Screening for malignant [facility] Test 00:00:00 neoplasm of colon Medical Ce nter (procedure) [code = 722921558] Future Scheduled 1959 Screening for malignant [facility] Test 00:00:00 neoplasm of colon Medical Ce nter (procedure) [code = 828161102] Future Scheduled 1959 Screening for malignant [facility] Test 00:00:00 neoplasm of colon Medical Ce nter (procedure) [code = 080567779] Future Scheduled 1959 Sigmoidoscopy [code = [facility] 00:[facility] Sigmoidoscopy] Medical Cente r Future Scheduled 1959 CT Colonography (combo) [facility] Test 00:00:00 [code = CT Colonography [facility] (combo)] Future Scheduled 1959 Screening for malignant [facility] Test 00:00:00 neoplasm of colon Medical Ce nter (procedure) [code = 150129666] Future Scheduled 1959 Screening for malignant [facility] Test 00:00:00 neoplasm of colon Medical Ce nter (procedure) [code = 882470406] Future Scheduled 1959 Screening for malignant [facility] Test 00:00:00 neoplasm of colon Medical Ce nter (procedure) [code = 563340121] Future Scheduled 1959 Screening for malignant [facility] Test 00:00:00 neoplasm of colon Medical Ce nter (procedure) [code = 764807085] Future Scheduled 1959 Sigmoidoscopy [code = [facility] 00:[facility] Sigmoidoscopy] Medical Cente r Future Scheduled 1959 CT Colonography (combo) [facility] Test 00:00:00 [code = CT Colonography [facility] (combo)] Future Scheduled 1959 Screening for malignant [facility] Test 00:00:00 neoplasm of colon Medical Ce nter (procedure) [code = 389552166] Future Scheduled 1959 Screening for malignant [facility] Test 00:00:00 neoplasm of colon Medical Ce nter (procedure) [code = 965489186] Future Scheduled 1959 Screening for malignant [facility] Test 00:00:00 neoplasm of colon Medical Ce nter (procedure) [code = 202309885] Future Scheduled 1959 Screening for malignant [facility] Test 00:00:00 neoplasm of colon Medical Ce nter (procedure) [code = 395189576] Future Scheduled 1959 Sigmoidoscopy [code = [facility] 00:[facility] Sigmoidoscopy] Medical Cente r Future Scheduled 1959 CT Colonography (combo) [facility] Test 00:00:00 [code = [facility] ([facility] Future Scheduled 1959 Screening for malignant [facility] Test 00:00:00 neoplasm of colon Medical Ce nter (procedure) [code = 370979659] Future Scheduled 1959 Screening for malignant [facility] Test 00:00:00 neoplasm of colon Medical Ce nter (procedure) [code = 024846643] Future Scheduled 1959 Screening for malignant [facility] Test 00:00:00 neoplasm of colon Medical Ce nter (procedure) [code = 307159534] Future Scheduled 1959 Screening for malignant [facility] Test 00:00:00 neoplasm of colon Medical Ce nter (procedure) [code = 911939756] Future Scheduled 1959 Sigmoidoscopy [facility]code = [facility] 00:[facility] Sigmoidoscopy] Medical Cente r Future Scheduled 1959 CT Colonography (combo) [facility] Test 00:00:00 [code = CT [facility] ([facility])] Future Scheduled 1959 Screening for malignant [facility] Test 00:00:00 neoplasm of colon Medical Ce nter (procedure) [code = 721397127] Future Scheduled 1959 Screening for malignant [facility] Test 00:00:00 neoplasm of colon Medical Ce nter (procedure) [code = 061080038] Future Scheduled 1959 Screening for malignant [facility] Test 00:00:00 neoplasm of colon Medical Ce nter (procedure) [code = 361109143] Future Scheduled 1959 Screening for malignant [facility] Test 00:00:00 neoplasm of colon Medical Ce nter (procedure) [code = 905103154] Future Scheduled 1959 Sigmoidoscopy [code = [facility] 00:00:[facility] Sigmoidoscopy] Medical Cente r Future Scheduled 1959 CT Colonography (combo) [facility] Test 00:00:00 [code = CT Colonography [facility] (combo)] Future Scheduled 1959 Screening for malignant [facility] Test 00:00:00 neoplasm of colon Medical Ce nter (procedure) [code = 366724979] Future Scheduled 1959 Screening for malignant [facility] Test 00:00:00 neoplasm of colon Medical Ce nter (procedure) [code = 283984916] Future Scheduled 1959 Screening for malignant [facility] Test 00:00:00 neoplasm of colon Medical Ce nter (procedure) [code = 969015833] Future Scheduled 1959 Screening for malignant [facility] Test 00:00:00 neoplasm of colon Medical Ce nter (procedure) [code = 541876267] Future Scheduled 1959 Sigmoidoscopy [code = [facility] 00:[facility] Sigmoidoscopy] Medical Cente r Future Scheduled 1959 CT Colonography (combo) [facility] Test 00:00:00 [code = CT Colonography [facility] Center (combo)] Future Scheduled 1959 Screening for malignant [facility] Test 00:00:00 neoplasm of colon Medical Ce nter (procedure) [code = 190798388] Future Scheduled 1959 Screening for malignant [facility] Test 00:00:00 neoplasm of colon Medical Ce nter (procedure) [code = 260853798] Future Scheduled 1959 Screening for malignant [facility] Test 00:00:00 neoplasm of colon Medical Ce nter (procedure) [code = 577323240] Future Scheduled 1959 Screening for malignant [facility] Test 00:00:00 neoplasm of colon Medical Ce nter (procedure) [code = 305031886] Future Scheduled 1959 Sigmoidoscopy [code = [facility] 00:[facility] Sigmoidoscopy] Medical [place] Future Scheduled 1959 CT Colonography (combo) [facility] Test 00:00:00 [code = CT Colonography [facility] (combo)] Future Scheduled 1959 Screening for malignant [facility] Test 00:00:00 neoplasm of colon Medical Ce nter (procedure) [code = 365213715] Future Scheduled 1959 Screening for malignant [facility] Test 00:00:00 neoplasm of colon Medical Ce nter (procedure) [code = 673397831] Future Scheduled 1959 Screening for malignant [facility] Test 00:00:00 neoplasm of colon Medical Ce nter (procedure) [code = 768317984] Future Scheduled 1959 Screening for malignant [facility] Test 00:00:00 neoplasm of colon Medical Ce nter (procedure) [code = 974405633] Future Scheduled 1959 Sigmoidoscopy [facility]code [facility] 00:[facility] Sigmoidoscopy] [facility] [place] Future Scheduled 1959 CT Colonography (combo) [facility] Test 00:00:00 [code = CT Colonography [facility] (combo)] Future Scheduled 1959 Screening for malignant [facility] Test 00:00:00 neoplasm of colon Medical Ce nter (procedure) [code = 824695998] Future Scheduled 1959 Screening for malignant [facility] Test 00:00:00 neoplasm of colon Medical Ce nter (procedure) [code = 857106813] Future Scheduled 1959 Screening for malignant [facility] Test 00:00:00 neoplasm of colon Medical Ce nter (procedure) [code = 412639670] Future Scheduled 1959 Screening for malignant [facility] Test 00:00:00 neoplasm of colon Medical Ce nter (procedure) [code = 834755125] Future Scheduled 1959 Sigmoidoscopy [facility]code [facility] 00:[facility] S[facility]oidoscopy] [facility] [place] Future Scheduled COLON CANCER SCREENING: [facility] Test COLONOSCOPY [code = of Medic ine COLON CANCER SCREENING: COLONOSCOPY] Future Scheduled MAMMOGRAM ANNUAL [code [facility] Test = MAMMOGRAM ANNUAL] of Medic ine Future Scheduled TETANUS SHOT (ADULT) [employer] Test [code = TETANUS SHOT of Medi cine (ADULT)] Future Scheduled HEPATITIS C SCREENING [employer] Test [code = HEPATITIS C of Medic ine SCREENING] Future Scheduled HIV SCREENING [code = [employer] [facility] HIV SCREENING] of Medicine Future Scheduled [facility] [facility] SCREENING 3 YEAR FOLLOW of M edicine UP [code = CERVICAL CANCER SCREENING 3 YEAR FOLLOW UP] Future Scheduled FLU VACCINE > 6 MONTHS [employer] Test [code = FLU VACCINE > 6 of M edicine MONTHS] Future Scheduled COLON CANCER SCREENING: [facility] Test COLONOSCOPY [code = of Medic ine COLON CANCER SCREENING: COLONOSCOPY] Future Scheduled MAMMOGRAM ANNUAL [code [employer] Test = MAMMOGRAM ANNUAL] of Medic ine Future Scheduled TETANUS SHOT (ADULT) [employer] Test [code = TETANUS SHOT [...] edicine MONTHS] Future Scheduled COLON CANCER SCREENING: [facility] [employer] Test COLONOSCOPY [code = of Medic ine COLON CANCER SCREENING: COLONOSCOPY] Future Scheduled MAMMOGRAM ANNUAL [code [employer] Test = MAMMOGRAM ANNUAL] of Medic ine Future Scheduled TETANUS SHOT (ADULT) [employer] Test [code = TETANUS SHOT [...] of M edicine MONTHS] Future Scheduled ELECTROCARDIOGRAM [facility] [employer] Test COMPLETE [code = 92487] of M edicine Future Scheduled COLON CANCER SCREENING: [facility] Test COLONOSCOPY [code = of Medic ine COLON CANCER SCREENING: COLONOSCOPY] Future Scheduled MAMMOGRAM ANNUAL [code [employer] Test = MAMMOGRAM ANNUAL] of Medic ine Future Scheduled TETANUS SHOT (ADULT) [employer] Test [code = TETANUS SHOT of Medi cine (ADULT)] Future Scheduled HEPATITIS C SCREENING [employer] Test [code = HEPATITIS C of Medic ine SCREENING] Future Scheduled HIV SCREENING [code = [employer] HIV SCREENING] of Medicine Future Scheduled CERVICAL CANCER [facility] [employer] Test SCREENING 3 YEAR FOLLOW of M edicine UP [code = CERVICAL CANCER SCREENING 3 YEAR FOLLOW UP] Future Scheduled ZOSTER VACCINE (1 of 2) [facility] Test [code = ZOSTER VACCINE of Me dicine (1 of 2)] Future Scheduled FLU VACCINE > 6 MONTHS [facility] [code = FLU VACCINE > 6 of M edicine MONTHS] Future Scheduled METANEPHRINE,FRACT,LC/M Ordered: [facility] Test S/MS,PL [code = NOCPT] 01/09/2020 of Me dicine Future Scheduled URINALYSIS W REFLEX Ordered: [facility] Test MICRO [code = NOCPT] 01/09/2020 of Medi cine Future Scheduled CULTURE, Ordered: [facility] [employer] Test URINE/SENSITIVITY ON 01/09/2020 of Medi cine ALL [code = 05089-0] Future Scheduled COLON CANCER SCREENING: [facility] Test COLONOSCOPY [code = of Medic ine COLON CANCER SCREENING: COLONOSCOPY] Future Scheduled MAMMOGRAM ANNUAL [code [facility] Test = MAMMOGRAM ANNUAL] of Medic ine Future Scheduled TETANUS SHOT (ADULT) [employer] Test [code = TETANUS SHOT of Medi cine (ADULT)] Future Scheduled HEPATITIS C SCRE[employer] [employer] Test [code = HEPATITIS C of Medic ine SCREENING] Future Scheduled HIV SCREENING [code = [employer] HIV SCREENING] of Medicine Future Scheduled CERVICAL CANCER [facility] C [employer] Test SCREENING 3 YEAR FOLLOW of M edicine UP [code = CERVICAL CANCER SCREENING 3 YEAR FOLLOW UP] Future Scheduled ZOSTER VACCINE (1 of 2) [facility] [employer] Test [code = ZOSTER VACCINE of Me dicine (1 of 2)] Future Scheduled FLU VACCINE > 6 MONTHS [facility] [code = FLU VACCINE > 6 of M edicine MONTHS] Future Scheduled COLON CANCER SCREENING: [facility] Test COLONOSCOPY [code = of Medic ine COLON CANCER SCREENING: COLONOSCOPY] Future Scheduled MAMMOGRAM ANNUAL [code [facility] Test = MAMMOGRAM ANNUAL] of Medic ine Future Scheduled TETANUS SHOT (ADULT) [employer] Test [code = TETANUS SHOT of Medi cine (ADULT)] Future Scheduled HEPATITIS C SCREENING [employer] Test [code = HEPATITIS C of Medic ine SCREENING] Future Scheduled HIV SCREENING [code = [employer] HIV SCREENING] of Medicine Future Scheduled CERVICAL CANCER [facility] C [employer] Test SCREENING 3 YEAR FOLLOW of M edicine UP [code = CERVICAL CANCER SCREENING 3 YEAR FOLLOW UP] Future Scheduled ZOSTER VACCINE (1 of 2) [facility] [employer] Test [code = ZOSTER VACCINE of Me dicine (1 of 2)] Future Scheduled FLU VACCINE > 6 MONTHS [employer] Test [code = FLU VACCINE > 6 of M edicine MONTHS] Future Scheduled METANEPHRINES,24HR Ordered: [facility] [place] Test URINE [code = 84196] 02/28/2020 of Medi cine Future Scheduled COLON CANCER SCREENING: [facility] Test COLONOSCOPY [code = of Medic ine COLON CANCER SCREENING: COLONOSCOPY] Future Scheduled MAMMOGRAM ANNUAL [code [facility] = MAMMOGRAM ANNUAL] of Medic ine Future Scheduled TETANUS SHOT (ADULT) [employer] Test [code = TETANUS SHOT of Medi cine (ADULT)] Future Scheduled HEPATITIS C SCREENING [employer] Test [code = HEPATITIS C of Medic ine SCREENING] Future Scheduled HIV SCREENING [code = [employer] HIV SCREENING] of Medicine Future Scheduled CERVICAL CANCER [facility] C [employer] Test SCREENING 3 YEAR FOLLOW of M edicine UP [code = CERVICAL CANCER SCREENING 3 YEAR FOLLOW UP] Future Scheduled ZOSTER VACCINE (1 of 2) [facility] [employer] Test [code = ZOSTER VACCINE of Me dicine (1 of 2)] Future Scheduled FLU VACCINE > 6 MONTHS [facility] [code = FLU VACCINE > 6 of M edicine MONTHS] Future Scheduled COLON CANCER SCREENING: [facility] [employer] Test COLONOSCOPY [code = of Medic ine COLON CANCER SCREENING: COLONOSCOPY] Future Scheduled MAMMOGRAM ANNUAL [code [employer] = MAMMOGRAM ANNUAL] of Medic ine Future Scheduled TETANUS SHOT (ADULT) [employer] Test [code = TETANUS SHOT of Medi cine (ADULT)] Future Scheduled HEPATITIS C SCREENING [employer] Test [code = HEPATITIS C of Medic ine SCREENING] Future Scheduled HIV SCREENING [code = [employer] HIV SCREENING] of Medicine Future Scheduled CERVICAL CANCER [facility] C [employer] Test SCREENING 3 YEAR [...] Future Scheduled CBC W/AUTO DIFF WITH Ordered: [facility] Test PLATELETS [code = 05/01/2020 of Medicin e 33994-6] Future Scheduled COMPREHENSIVE METABOLIC Ordered: [facility] Test PANEL [code = 95879-2] 05/01/2020 of Me dicine Future Scheduled MAGNESIUM [code = Ordered: [facility] [employer] Test 20607-5] 05/01/2020 of Medicine Future Scheduled TSH [code = 69398-2] Ordered: [facility] [employer] Test 05/01/2020 of Medicine Future Scheduled T4 FREE [code = 3024-7] Ordered: [facility] [employer] Test 05/01/2020 of Medicine Future Scheduled COLON CANCER SCREENING: [facility] Test COLONOSCOPY [code = of Medic ine COLON CANCER SCREENING: COLONOSCOPY] Future Scheduled COVID-19 Vaccine [facility] Test Evaluation [code = of Medici ne COVID-19 Vaccine Evaluation] Future Scheduled MAMMOGRAM ANNUAL [code [facility] [employer] Test = MAMMOGRAM ANNUAL] of Medic ine Future Scheduled TETANUS SHOT (ADULT) [employer] Test [code = TETANUS SHOT of Medi cine (ADULT)] Future Scheduled HEPATITIS C SCREENING [employer] Test [code = HEPATITIS C of Medic ine SCREENING] Future Scheduled HIV SCREENING [code = [employer] HIV SCREENING] of Medicine Future Scheduled CERVICAL CANCER [facility] [employer] Test SCREENING 3 YEAR FOLLOW of M edicine UP [code = CERVICAL CANCER SCREENING 3 YEAR FOLLOW UP] Future Scheduled ZOSTER VACCINE (1 of 2) [facility] Test [code = ZOSTER VACCINE of Me dicine (1 of 2)] Future Scheduled FLU VACCINE > 6 MONTHS [employer] Test [code = FLU VACCINE > 6 of M edicine MONTHS] Future Scheduled COLON CANCER SCREENING: [facility] Test COLONOSCOPY [code = of Medic ine COLON CANCER SCREENING: COLONOSCOPY] Future Scheduled COVID-19 Vaccine [facility] [employer] Test Evaluation [code = of Medici ne COVID-19 Vaccine Evaluation] Future Scheduled MAMMOGRAM ANNUAL [code [facility] = MAMMOGRAM ANNUAL] of Medic ine Future Scheduled TETANUS SHOT (ADULT) [employer] Test [code = TETANUS SHOT [...] Future Scheduled ZOSTER VACCINE (1 of 2) [facility] [employer] Test [code = ZOSTER VACCINE of Me dicine (1 of 2)] Future Scheduled FLU VACCINE > 6 MONTHS [employer] [code = FLU VACCINE > 6 of M edicine MONTHS] Future Scheduled Screening for malignant [facility] [employer] Test neoplasm of colon of Medicin e (procedure) [code = 098196291] Future Scheduled Screening for malignant [facility] [employer] Test neoplasm of breast of Medici ne (procedure) [code = 186931158] Future Scheduled TETANUS SHOT (ADULT) [employer] Test [code = TETANUS SHOT of Medi cine (ADULT)] Future Scheduled COVID-19 Vaccine (1) [employer] Test [code = COVID-19 of Medicine Vaccine (1)] Future Scheduled Hepatitis C screening [employer] Test (procedure) [code = of Medic ine 938640384] Future Scheduled Human immunodeficiency [employer] virus screening of Medicine (procedure) [code = 471752070] Future Scheduled Screening for malignant [facility] [employer] Test neoplasm of cervix of Medici ne (procedure) [code = 366700622] Future Scheduled ZOSTER VACCINE (1 of 2) [employer] Test [code = ZOSTER VACCINE of Me dicine (1 of 2)] Future Scheduled FLU VACCINE > 6 MONTHS [employer] Test [code = FLU VACCINE > 6 of M edicine MONTHS] Future Scheduled Screening for malignant [employer] Test neoplasm of colon of Medicin e (procedure) [code = 987988780] Future Scheduled Screening for malignant [facility] [employer] Test neoplasm of breast of Medici ne (procedure) [code = 107204358] Future Scheduled TETANUS SHOT (ADULT) [employer] Test [code = TETANUS SHOT of Medi cine (ADULT)] Future Scheduled COVID-19 Vaccine (1) [employer] Test [code = COVID-19 of Medicine Vaccine (1)] Future Scheduled Hepatitis C screening [employer] Test (procedure) [code = of Medic ine 789011030] Future Scheduled Human immunodeficiency [employer] virus screening of Medicine (procedure) [code = 056645497] Future Scheduled Screening for malignant [employer] Test neoplasm of cervix of Medici ne (procedure) [code = 416033948] Future Scheduled ZOSTER VACCINE (1 of 2) [employer] Test [code = ZOSTER VACCINE of Me dicine (1 of 2)] Future Scheduled FLU VACCINE > 6 MONTHS [employer] Test [code = FLU VACCINE > 6 of M edicine MONTHS] Future Scheduled Screening for malignant [employer] Test neoplasm of colon of Medicin e (procedure) [code = 690780625] Future Scheduled Screening for malignant [employer] Test neoplasm of breast of Medici ne (procedure) [code = 314608866] Future Scheduled TETANUS SHOT (ADULT) [employer] Test [code = TETANUS SHOT of Medi cine (ADULT)] Future Scheduled COVID-19 Vaccine (1) [employer] Test [code = COVID-19 of Medicine Vaccine (1)] Future Scheduled Hepatitis C screening [employer] Test (procedure) [code = of Medic ine 156471227] Future Scheduled Human immunodeficiency [employer] virus screening of Medicine (procedure) [code = 354929644] Future Scheduled Screening for malignant [facility] [employer] Test neoplasm of cervix of Medici ne (procedure) [code = 628583024] Future Scheduled ZOSTER VACCINE (1 of 2) [facility] [employer] Test [code = ZOSTER VACCINE of Me dicine (1 of 2)] Future Scheduled FLU VACCINE > 6 MONTHS [employer] Test [code = FLU VACCINE > 6 of M edicine MONTHS] Future Scheduled Screening for malignant [employer] Test neoplasm of colon of Medicin e (procedure) [code = 577650292] Future Scheduled Screening for malignant [employer] Test neoplasm of breast of Medici ne (procedure) [code = 688140666] Future Scheduled TETANUS SHOT (ADULT) [employer] Test [code = TETANUS SHOT of Medi cine (ADULT)] Future Scheduled COVID-19 Vaccine (1) [employer] Test [code = COVID-19 of Medicine Vaccine (1)] Future Scheduled Hepatitis C screening [employer] Test (procedure) [code = of Medic ine 482650237] Future Scheduled Human immunodeficiency [employer] virus screening of Medicine (procedure) [code = 337471758] Future Scheduled Screening for malignant [employer] Test neoplasm of cervix of Medici ne (procedure) [code = 753543449] Future Scheduled ZOSTER VACCINE (1 of 2) [facility] [employer] Test [code = ZOSTER VACCINE of Me dicine (1 of 2)] Future Scheduled FLU VACCINE > 6 MONTHS [employer] Test [code = FLU VACCINE > 6 of M edicine MONTHS] Future Scheduled CT CHEST ABDOMEN PELVIS 1 Occurrences [facility] [employer] Test W CONTRAST [code = [place] [address]-5] 07/17/2020 until 07/17/[address] PET SKULL-BASE 1 Occurrences [facility] Test MID-THIGH (81622) [code starting of M edicine = 24606] 02/28/2020 until 02/27/2021 Future Scheduled MRI ABDOMEN W WO 1 Occurrences [facility] Test CONTRAST [code = starting of Medicine 55636-1] 01/09/2020 until 08/08/[address] CHEST W CONTRAST 1 Occurrences [facility] Test [code = 64216-9] starting of Medicine 01/09/2020 until 08/08/2020 Encounters Start End Encounter Admission Attending Care Care Encounter Source Date/Time Date/Time Type Type Clinicians Facility Department ID 2020-12-29 Inpatient TERESITA CRYSTAL SHELLEVERARDO [facility] [id number] [facility] 19:34:00 2022-10-13 2022-10-13 Outpatient CRYSTAL JOSUEEVERARDO [place] [id number] [facility] 00:00:00 00:00:00 2022-10-06 2022-10-06 Outpatient JOSE [facility] [id number] [facility] 00:00:00 00:00:00 MONA Villag e of Medicin e 2022-08-26 2022-08-26 Outpatient [facility] [id number] [facility] 00:00:00 00:00:00 2022-08-03 2022-08-03 Outside Nakia ShellAndrzej [facility] [id number] [facility] 00:00:00 00:00:00 [facility] 2022-08-01 2022-08-01 Office GASTON FOWLER 1.2.840.114 [id number] [facility] 09:14:40 13:56:19 Visit DIPABEN AMBULATOR 350.1.13.21 College Y 0.2.7.2.686 of [id number] Medi michael 315 e 2022-08-01 2022-08-01 Outpatient BARTOLO GOODMAN [facility] [id number] [facility] 09:14:03 13:51:46 Colleg e of Medicin e 2022-08-01 2022-08-01 Outpatient BARTOLO GOODMAN [facility] [id number] [facility] 09:13:36 13:45:34 Colleg e of Medicin e 2022-07-15 2022-07-[address] [facility] 1.2.840.114 [id number] [facility] 11:34:18 14:32:07 Visit Salvatore 350.1.13.21 Co llege 0.2.7.2.686 [id number] [facility] michael 504 e 2022-07-15 2022-07-15 Orders Nakia ShellDebbieEverardo [facility] [id number] 00:00:00 00:00:00 Only [facility] 2022-07-15 2022-07-15 Historical Cindy NakiaAndrzej [facility] [id number] [facility] 00:00:00 00:00:00 Encounter [facility] 2022-07-15 2022-07-15 Orders Nakia ShellDebbieEverardo [facility] [id number] 00:00:00 00:00:00 Only [facility] 2022-07-13 2022-07-13 Office [facility] 1.2.840.114 [id number] [facility] 13:00:00 13:30:00 Visit , hCantale SILVERIO 350.1.13.10 ity of Kerri LOPEZ 4.2.7.2.686 Gordon as ALBERT?BLEA [id number] [address] MEDICAL OFFICE BUILDING 2022-07-13 2022-07-13 Outpatient R TEE [facility] [id number] [facility] 13:00:00 13:00:00 , CHANTALE hankins [facility] 2022-07-04 2022-07-04 [facility] Tyrell [facility] [id number] 09:56:28 23:59:00 Encounter [facility] 2022-07-04 2022-07-04 [facility] Tyrell [facility] [id number] 09:56:28 23:59:00 Encounter [facility] 2022-07-04 2022-07-04 [facility] [id number] [facility] 09:56:28 23:59:00 [place] 2022-07-04 2022-07-04 [facility] [id number] 09:56:08 23:59:00 Encounter [facility] 2022-07-04 2022-07-04 [facility] [id number] 09:56:08 23:59:00 Encounter [facility] 2022-07-04 2022-07-04 Outpatient [facility] [id number] [facility] 09:56:08 23:59:00 [place] 2022-06-13 2022-06-[address] [facility] [id number] [facility] 13:10:49 13:38:34 MONA gordillo of Medicin e 2022-06-03 2022-06-[address] [facility] 1.2.840.114 [id number] [facility] 09:50:26 12:50:09 Visit Salvatore 350.1.13.21 Co llege 0.2.7.2.686 of [id number] Medi michael 504 e 2022-06-03 2022-06-03 [facility] [id number] 00:00:00 00:00:00 Only [facility] 2022-06-03 2022-06-03 Historical [facility] [id number] 00:00:00 00:00:00 Encounter [facility] 2022-06-03 2022-06-03 [facility] [id number] 00:00:00 00:00:00 Only [facility] 2022-04-22 2022-04-[address] [facility] 1.2.840.114 [id number] [facility] 09:54:19 11:58:52 Visit Salvatore 350.1.13.21 Co llege 0.2.7.2.686 of [id number] [facility] 504 e 2022-04-22 2022-04-22 [facility] [id number] [facility] 00:[facility]:00 00:00:00 Encounter [facility] 2022-04-14 2022-04-14 Office GASTON Fowler 1.2.840.114 [id number] [facility] 10:30:00 12:02:02 Visit Dipaben AMBUL[facility].1.13.21 [facility]2.7[facility]2.686 of [id number] [facility] 315 e 2022-04-13 2022-04-13 [facility] [id number] 10:03:33 23:59:00 Encounter [facility] 2022-04-13 2022-04-13 [facility] [id number] 10:03:33 23:59:00 Encounter [facility] 2022-04-13 2022-04-13 Outpatient ALYSIA JOSUE [facility] [id number] SLE 10:03:33 23:59:00 2022-04-13 2022-04-13 [facility] [id number] 10:03:03 23:59:00 Encounter [facility] 2022-04-13 2022-04-13 [facility] [id number] 10:03:03 23:59:00 Encounter [facility] 2022-04-13 2022-04-13 Outpatient ALYSIA JOSUE [facility] [id number] [facility] 10:03:03 23:59:00 2022-03-11 2022-03-11 Outpatient [facility] [id number] [facility] 12:31:45 23:59:00 2022-03-11 2022-03-11 [facility] [id number] 12:31:45 23:59:00 Encounter [facility] 2022-03-11 2022-03-11 [facility] [id number] 12:31:45 23:59:00 Encounter [facility] 2022-03-11 2022-03-11 Office Pauline [facility] [id number] 11:00:00 11:15:00 Visit [facility] 2022-03-11 2022-03-11 Office Pauline [facility] [id number] 11:00:00 11:15:00 Visit [facility] 2022-03-11 2022-03-[address] [facility] 1.2.840.114 [id number] [facility] 09:00:00 10:36:31 Visit Maksim Salvatore 350.1.13.21 Co llege 0.2.7.2.686 of [id number] [facility] 504 e 2022-03-11 2022-03-11 Outpatient JAVY GODOY [facility] [id number] [facility] 10:35:30 10:35:30 [facility] 2022-03-11 2022-03-[address] [facility] 1.2.840.114 [id number] [facility] 00:00:00 00:00:00 Visit PAULINE Salvatore 350.1.13.21 Co llege 0.2.7.2.686 of [id number] [facility] 580 e 2022-03-11 2022-03-11 Orders Alysia Shell [facility] [id number] 00:00:00 00:00:00 Only [facility] 2022-03-11 2022-03-11 Historical Najma [facility] [id number] 00:00:00 00:00:00 Encounter [facility] 2022-03-11 2022-03-11 Historical Alysia Shell [facility] [id number] [facility] 00:00:00 00:00:00 Encounter [facility] 2022-03-11 2022-03-11 Orders Alysia Shell [facility] [id number] 00:00:00 00:00:00 Only [facility] 2022-02-18 2022-02-[address] [facility] 1.2.840.114 [id number] [facility] 10:54:37 12:50:59 Visit PAULINE Salasr 350.1.13.21 Co llege 0.2.7.2.686 of [id number] Medi michael 580 e 2022-02-18 2022-02-18 Outpatient MALENA SHELL [facility] [id number] [facility] 10:55:13 10:55:13 Colleg e of Medicin e 2022-02-18 2022-02-18 Historical Najma [facility] [id number] 00:00:00 00:00:00 Encounter [facility] 2022-02-09 2022-02-09 Telephone [facility] [id number] 00:00:00 00:00:00 [facility] 2022-02-09 2022-02-09 Telephone Romulo [facility] [id number] 00:00:00 00:00:00 [facility] 2022-02-03 2022-02-05 Inpatient YING CEEAN [facility] Cardiac [id number] SLE 05:49:00 13:20:00 Cath 2022-02-03 2022-02-05 [facility] Florentin Godoy [facility] [id number] 05:49:00 13:20:[address] [facility] 2022-02-03 2022-02-05 [facility] [id number] [facility] 05:49:00 13:20:[address] [facility] 2022-02-03 2022-02-[address] [facility] [id number] [facility] 05:49:00 23:59:00 Colleg e of Medicin e 2022-02-03 2022-02-03 Anesthesia Gibran [facility] [id number] 07:59:00 12:56:00 Event Goldstein [facility] 2022-02-03 2022-02-03 Anesthesia Gibran [facility] [id number] 07:59:00 12:56:00 Event Goldstein [facility] 2022-02-03 2022-02-03 [facility] [id number] 07:30:00 10:07:00 [facility] 2022-02-03 2022-02-03 [facility] [id number] 07:30:00 10:07:00 [facility] 2022-02-03 2022-02-03 Outpatient [facility] [id number] [facility] 00:00:00 05:48:00 Colleg [facility] Medicin e 2022-02-03 2022-02-03 Travel [facility] [id number] [facility]00 00:00:00 [facility] 2022-02-03 2022-02-03 Orders [facility] [id number] 00:00:00 00:00:00 [facility] 2022-02-03 2022-02-03 Travel [facility] [id number] [facility] 00:[facility]:00 00:00:00 [facility] 2022-02-03 2022-02-03 Orders [facility] [id number] 00:00:00 00:00:00 [facility] 2022-01-27 2022-01-27 Office GASTON Garcia 1.2.840.114 [id number] [facility] 09:30:00 10:02:50 Visit Dieterjoanna AMBULATOR 350.1.13.21 College Mufeed Y 0.2.7.2.686 of [id number] Medi michael 355 e 2022-01-21 2022-01-[address] [facility] 1.2.840.114 [id number] [facility] 11:45:00 13:48:04 Visit Pauline SalazarNair 350.1.13.21 Co llege 0.2.7.2.686 of [id number] Medi michael 580 e 2022-01-21 2022-01-[address] [facility] 1.2.840.114 [id number] [facility] 11:12:58 13:45:17 Visit DEVI SalazarNair 350.1.13.21 Co llege 0.2.7.2.686 of [id number] Medi michael 504 e 2022-01-21 2022-01-21 Historical Tyrell [facility] [id number] [facility] 00:00:00 00:00:00 Encounter [facility] 2022-01-21 2022-01-21 [id number] [facility] 00:[facility] 00:00:00 Encounter [facility] 2022-01-11 2022-01-11 Office GASTON Carpenter 1.2.840.114 [id number] [facility] 13:40:00 13:40:00 Visit Florentin AMBULATOR 350.1.13.21 College Y 0.2.7.2.686 of [id number] Medi michael 370 e 2022-01-11 2022-01-11 Office GASTON Luciano 1.2.840.114 [id number] [facility] 10:00:00 11:00:21 Visit Jeff Lanza AMBULATOR 350.1.13.21 College Y 0.2.7.2.686 of [id number] Medi michael 375 e 2022-01-07 2022-01-07 Outpatient KENISHA CARPENTER SLE SLE [id number] [facility] 00:00:00 00:00:00 FLORENTIN 2021-12-24 2021-12-[address] [facility] 1.2.840.114 [id number] [facility] 10:15:05 10:43:50 Visit Salvatore 350.1.13.21 Co llege 0.2.7.2.686 of [id number] [facility] 504 e 2021-12-24 2021-12-24 Historical Tyrell [facility] [id number] 00:00:00 00:00:00 Encounter [facility] 2021 2021 Outpatient ALYSIA JOSUE [facility] SLE [id number] SLEH 10:38:32 23:59:00 2021 2021 [facility] [id number] 10:38:32 23:59:00 Encounter 1, [facility] 2021 2021 [facility] [id number] 10:38:32 23:59:00 Encounter 1, [facility] [facility] 2021 2021 Outpatient ALYSIA JOSUE [facility] SLE [id number] SLEH 10:38:18 23:59:00 2021 2021 [facility] [id number] 10:38:18 23:59:00 Encounter 1, [facility] 2021 2021 [facility] [id number] 10:38:18 23:59:00 Encounter 1, [facility] 2021-12-15 2021-12-15 Telephone Jaelyn [facility] [id number] 00:00:00 00:00:00 [facility] 2021-12-15 2021-12-15 [place] [facility] [id number] 00:00:00 00:00:00 [facility] 2021-12-14 2021-12-14 Outpatient KENISHA CHRISTY SLEIrma SLE [id number] SLEH 08:21:21 23:59:00 [facility] 2021-12-14 2021-12-14 [facility] [id number] 08:21:21 23:59:00 Encounter [facility] 2021-12-14 2021-12-14 [facility] [id number] 08:21:21 23:59:00 Encounter [facility] 2021-12-14 2021-12-14 Outpatient [facility] [id number] [facility] 00:00:00 23:59:00 [facility] 2021-12-14 2021-12-14 Outpatient KENISHA CARPENTER [facility] SLE [id number] SLEH 08:20:24 08:20:24 [facility] 2021-12-14 2021-12-14 [facility] [id number] 08:20:24 08:20:24 Encounter [facility] 2021-12-14 2021-12-14 [facility] [id number] 08:20:24 08:20:24 Encounter [facility] 2021-11-30 2021-11-30 Outpatient [facility] [id number] [facility] 00:00:00 23:59:00 [facility] 2021-11-30 2021-11-30 Office KENISHA Carpenter [facility] [id number] 08:15:00 08:30:00 Visit [facility] 2021-11-30 2021-11-30 Office [facility] [id number] 08:15:00 08:30:00 Visit [facility] 2021-11-30 2021-11-30 Outpatient JAVY GODOY SLE [id number] SLEH 07:48:59 07:48:59 [facility] 2021-11-30 2021-11-30 Outpatient KENISHA SLEIrma SLEH [id number] [facility] 00:00:00 00:00:00 2021-11-30 2021-11-30 Outpatient EL SLEIrma SLEH [id number] [facility] 00:00:00 00:00:00 2021-11-30 2021-11-30 Orders [facility] [id number] 00:00:00 00:00:00 [facility] 2021-11-30 2021-11-30 Orders [facility] [id number] 00:00:00 00:00:00 [facility] 2021-11-26 2021-11-[address] [facility] 1.2.840.114 [id number] [facility] 08:40:00 10:10:23 Visit Maksim Chase 350.1.13.21 Co llege 0.2.7.2.686 of [id number] [facility] michael 504 e 2021-11-26 2021-11-26 Outside Alysia Shell [facility] [id number] 00:00:00 00:00:00 Orders [facility] 2021-11-26 2021-11-26 Historical Alysia Shell [facility] [id number] [facility] 00:[facility]:00 00:00:00 Encounter [facility] 2021-11-26 2021-11-26 Outside Alysia Shell [facility] [id number] 00:00:00 00:00:00 Orders [facility] 2021-11-24 2021-11-24 Office GASTON FOWLER 1.2.840.114 [id number] [facility] 09:59:18 15:05:23 Visit DIPABEN AMBULATOR 350.1.13.21 College Y 0.2.7.2.686 of [id number] Medi michael 315 e 2021-11-24 2021-11-24 Outpatient BARTOLO GOODMAN [facility] [id number] [facility] 09:58:43 15:02:32 [facility] [employer] [facility] [employer] 2021-11-24 2021-11-24 Office LYNN YAO 1.2.840.114 [id number] [facility] 12:39:49 14:38:17 Visit PAULINE Salvatore 350.1.13.21 Co llege 0.2.7.2.686 of [id number] Medi michael 580 e 2021-11-24 2021-11-24 Outpatient BARTOLO GOODMAN [facility] [id number] [facility] 09:58:11 11:47:38 [facility] [employer] [facility] [employer] 2021-11-24 2021-11-24 Historical Najma [facility] [id number] 00:00:00 00:00:00 Encounter [facility] 2021-11-15 2021-11-[address] [facility] [id number] [facility] 14:44:37 15:10:35 AHMED [facility] [employer] 2021-11-12 2021-11-12 Outpatient ALYSIA SHELL [facility] [id number] SLE 09:20:23 23:59:00 2021-11-12 2021-11-12 [facility] [id number] 09:20:23 23:59:00 Encounter 1.5, [facility] Salvatore [facility] 2021-11-12 2021-11-12 [facility] Alysia Shell [facility] [id number] 09:20:23 23:59:00 Encounter 1.5, [facility] Salvatore [facility] 2021-11-01 2021-11-01 [facility] Alysia Shell [facility] [id number] 00:00:00 00:00:00 Orders [facility] 2021-11-01 2021-11-01 Outside Cindy NakiaRamona [facility] [id number] 00:00:00 00:00:00 Orders [facility] 2021-10-29 2021-10-[address] [facility] 1.2.840.114 [id number] [facility] 09:32:38 11:36:58 Visit PAULINE SalazarNair 350.1.13.21 Co llege 0.2.7.2.686 of [id number] Medi michael 580 e 2021-10-29 2021-10-[address] [facility] 1.2.840.114 [id number] [facility] 09:40:00 10:57:42 Visit Maksim Salvatore 350.1.13.21 Co llege 0.2.7.2.686 of [id number] Medi michael 504 e 2021-10-29 2021-10-29 Historical AbnersimoneNakiaAndrzej [facility] [id number] [facility] 00:[facility]:00 00:00:00 Encounter [facility] 2021-10-29 2021-10-29 Historical Bismarkdivyashasha [facility] [id number] 00:00:00 00:00:00 Encounter [facility] 2021-10-11 2021-10-11 Office GASTON Luciano 1.2.840.114 [id number] [facility] 10:00:00 10:29:38 Visit Jeff Lanza AMBULATOR 350.1.13.21 College Y 0.2.7.2.686 of [id number] Medi michael 375 e 2021-09-24 2021-09-24 Outpatient [facility] [id number] [facility] 00:00:00 23:59:00 [facility] [employer] [facility] 2021-09-24 2021-09-24 Outpatient SLE SLE [id number] SLE 12:03:20 12:03:20 2021-09-24 2021-09-[address] [facility] 1.2.840.114 [id number] [facility] 07:55:42 10:02:47 Visit Salvatore 350.1.13.21 Co llege 0.2.7.2.686 of [id number] [facility] michael 504 e 2021-09-24 2021-09-[address] [facility] 1.2.840.114 [id number] [facility] 07:53:30 10:00:42 Visit PAULINE SalazarNair 350.1.13.21 Co llege 0.2.7.2.686 of [id number] [facility] 580 e 2021-09-24 2021-09-24 Orders Alysia Josue [facility] [id number] 08:45:00 09:00:00 Only [facility] 2021-09-24 2021-09-24 Orders Alysia Shell [facility] [id number] 08:45:00 09:00:00 Only [facility] 2021-09-24 2021-09-24 Historical Alysia Shell [facility] [id number] [facility] 00:00:00 00:00:00 Encounter [facility] 2021-09-24 2021-09-24 Historical Najma [facility] [id number] 00:00:00 00:00:00 Encounter [facility] 2021-09-15 2021-09-[address] [facility] [id number] [facility] 08:45:08 10:23:24 ELIDA Zepeda Medicradha e 2021-09-10 2021-09-10 Outpatient [facility] [id number] [facility] 10:22:55 23:59:00 2021-09-10 2021-09-10 [facility] Alysia Shell [facility] [id number] 10:22:55 23:59:00 Encounter [facility] 2021-09-10 2021-09-10 [facility] Alysia Shell [facility] [id number] 10:22:55 23:59:00 Encounter [facility] 2021-09-10 2021-09-10 Outpatient AL[facility]IA [facility]UE [facility] [id number] [facility] 10:22:49 23:59:00 2021-09-10 2021-09-10 [facility] Alysia Shell [facility] [id number] 10:22:49 23:59:00 Encounter [facility] 2021-09-10 2021-09-10 [facility] Alysia Shell [facility] [id number] 10:22:49 23:59:00 Encounter [facility] 2021-09-03 2021-09-03 Outpatient BC GERMANIA [id number] [facility] 09:56:03 23:59:00 Duane Medicin e 2021-09-03 2021-09-03 Outpatient KENISHA [facility] SLE [id number] SLE 16:26:24 16:26:24 2021-09-03 2021-09-[address] [facility] 1.2.840.114 [id number] [facility] 08:56:49 11:18:09 Visit Salvatore 350.1.13.21 Co llege 0.2.7.2.686 [id number] [facility] michael 504 e 2021-09-03 2021-09-03 Orders Crystal JoseuEverardo [facility] [id number] 10:00:00 10:15:00 Only [facility] 2021-09-03 2021-09-03 Orders Crystal ShellEverardo [facility] [id number] 10:00:00 10:15:00 Only [facility] 2021-09-03 2021-09-03 Historical [facility] [id number] [facility] 00:00:00 00:00:00 Encounter on, [facility] 2021-09-03 2021-09-03 Historical Tyrell [facility] [id number] KELECHI Tobar 00:00:00 00:00:00 Encounter [facility] 2021-08-16 2021-08-[address] [facility] [id number] [facility] 10:44:24 11:17:37 ELIDA [employer] 2021-08-13 2021-08-13 Outpatient [facility] [id number] [facility] 09:24:53 23:59:00 [employer] 2021-08-13 2021-08-[address] [facility] 1.2.840.114 [id number] [facility] 08:20:08 11:02:08 Visit Salvatore 350.1.13.21 Co llege 0.2.7.2.686 of [id number] Medi michael 504 e 2021-08-13 2021-08-[address] [facility] 1.2.840.114 [id number] [facility] 08:18:49 11:01:03 Visit PAULINE Salvatore 350.1.13.21 Co llege 0.2.7.2.686 of [id number] Medi michael 580 e 2021-08-13 2021-08-13 Outside Alysia Shell [facility] [id number] KELECHI Tobar 00:00:00 00:00:00 Orders [facility] 2021-08-06 2021-08-[address] [facility] 1.2.840.114 [id number] [facility] 09:30:00 15:17:30 Visit Napoleon AMBULATOR 350.1.13.21 College Humberto Y 0.2.7.2.686 of [id number] Medi michael 800 e 2021-08-06 2021-08-[address] [facility] 1.2.840.114 [id number] [facility] 09:00:00 10:01:04 Visit Jeff Lanza AMBULATOR 350.1.13.21 College Y 0.2.7.2.686 of [id number] [facility] michael 375 e 2021-08-03 2021-08-03 Outpatient JAVY BELLE [facility] [id number] [facility] 13:23:44 23:59:00 RAFAEL 2021-08-03 2021-08-03 [facility] [id number] 13:23:44 23:59:00 Encounter [facility] 2021-08-03 2021-08-03 Outpatient JAVY BELLE [facility] [id number] [facility] 11:57:35 13:22:00 RAFAEL 2021-08-03 2021-08-03 [facility] [id number] 11:57:35 13:22:00 Encounter [facility] 2021-08-03 2021-08-03 Outpatient JAVY BELLE SLE [id number] [facility]H 11:57:24 13:22:00 [facility] 2021-08-03 2021-08-03 [facility] [id number] 11:57:24 13:22:00 Encounter [facility] 2021-07-28 2021-07-[address] [id number] [facility] 14:39:39 14:53:06 YOMAIRA [employer] 2021-07-23 2021-07-23 Outpatient [facility] [id number] [facility] 10:09:32 23:59:00 [employer] 2021-07-23 2021-07-[address] [facility] 1.2.840.114 [id number] [facility] 09:02:12 11:27:11 Visit PAULINE Chase 350.1.13.21 Co llege 0.2.7.2.686 of [id number] Medi michael 580 e 2021-07-23 2021-07-[address] [facility] 1.2.840.114 [id number] [facility] 09:20:00 11:26:53 Visit Maksim Chase 350.1.13.21 Co llege 0.2.7.2.686 of [id number] [facility] michael 504 e 2021-07-23 2021-07-23 Outpatient JAVY BELLE [facility] [id number] [facility] 00:00:00 00:00:00 RAFAEL 2021-07-23 2021-07-23 Outpatient JAVY BELLE [facility] [id number] [facility] 00:00:00 00:00:00 RAFAEL 2021-07-23 2021-07-23 Outpatient JAVY BELLE [facility] [id number] [facility] 00:00:00 00:00:00 RAFAEL 2021-07-14 2021-07-14 Office GERMANIA Billy 1.2.840.114 [id number] [facility] 09:00:00 14:02:34 Visit Napoleon AMBULATOR 350.1.13.21 [facility] Y 0.2.7.2.686 of [id number] [facility] michael 800 e 2021-07-05 2021-07-05 Outpatient [facility] [id number] [facility] 00:00:00 23:59:00 [employer] 2021-07-05 2021-07-05 Emergency ER FLORENCE [facility] Emergency [id number] SLE 20:40:00 23:14:00 RAFAEL 2021-07-05 2021-07-05 Emergency ER Gallagher, [facility] [id number] 20:40:00 23:14:00 [facility] 2021-07-05 2021-07-05 Orders [facility] [id number] 00:00:00 00:00:00 [facility] 2021-07-02 2021-07-02 Outpatient [facility] [id number] [facility] 10:14:13 23:59:00 [facility] [employer] 2021-07-02 2021-07-[address] [facility] 1.2.840.114 [id number] [facility] 08:42:14 13:16:07 Visit DEVI Chase 350.1.13.21 Co llege 0.2.7.2.686 of [id number] Medi michael 504 e 2021-07-01 2021-07-01 Outpatient ALYSIA JOSUE SLE [facility] [id number] SLE[facility] 06:20:58 23:59:00 2021-07-01 2021-07-01 [facility] Alysia Shell [facility] [id number] 06:20:58 23:59:00 Encounter 1.Casandra, [facility] Salvatore [facility] 2021-06-22 2021-06-[address] [id number] [facility] 10:46:08 10:46:08 ELIDA gordillo of Medicin e 2021-06-11 2021-06-[address] [facility] 1.2.840.114 [id number] [facility] 08:17:18 11:57:17 Visit PAULINE Salvatore 350.1.13.21 Co llege 0.2.7.2.686 of [id number] [facility] 580 e 2021-06-11 2021-06-[address] [facility] 1.2.840.114 [id number] [facility] 07:56:38 11:34:33 Visit Salvatore 350.1.13.21 Co llege 0.2.7.2.686 of [id number] [facility] 504 e 2021-06-03 2021-06-03 Outpatient ALYSIA JOSUE SLE SLEH [id number] SLEH 10:47:16 23:59:00 2021-06-03 2021-06-03 [facility] Alysia Shell [facility] [id number] 10:47:16 23:59:00 Encounter [facility] 2021-06-03 2021-06-03 Outpatient ALYSIA JOSUE SLE SLEH [id number] SLEH 10:47:10 23:59:00 2021-06-03 2021-06-03 [facility] Alysia Shell [facility] [id number] 10:47:10 23:59:00 Encounter [facility] 2021-06-02 2021-06-02 Outpatient ALONSO [facility] [id number] [facility] 16:13:36 16:30:49 YOMAIRA [employer] 2021-05-26 2021-05-[address] [facility] [id number] [facility] 09:23:05 12:23:52 DIPTIGAIL [employer] 2021-05-26 2021-05-26 Office MALCOLM BC 1.2.840.114 [id number] [facility] 09:39:48 10:43:26 Visit KIMMIENICO AMBULATOR 350.1.13.21 College Y 0.2.7.2.686 of [id number] Medi michael 315 e 2021-05-25 2021-05-25 Office Haley GERMANIA 1.2.840.114 [id number] [facility] 11:00:00 12:42:34 Visit Elidaginger Miller AMBULATOR 350.1.13.21 College Gary Y 0.2.7.2.686 of [id number] Medi michael 310 e 2021-05-25 2021-05-25 Outside Alysia Shell [facility] [id number] 00:00:00 00:00:00 [facility] 2021-05-21 2021-05-21 Outpatient [facility] [id number] [facility] 09:07:58 23:59:00 [employer] 2021-05-21 2021-05-21 Office LYNN SANTILLAN 1.2.840.114 [id number] [facility] 08:02:05 13:25:45 Visit DEVI Chase 350.1.13.21 Co llege 0.2.7.2.686 of [id number] Medi michael 504 e 2021-04-30 2021-04-30 Outpatient [facility] [id number] [facility] 09:10:29 23:59:00 [employer] 2021-04-30 2021-04-30 Office LYNN YAO 1.2.840.114 [id number] [facility] 08:09:51 11:17:09 Visit PAULINE Salvatore 350.1.13.21 Co llege 0.2.7.2.686 of [id number] [facility] michael 580 e 2021-04-30 2021-04-[address] [facility] 1.2.840.114 [id number] [facility] 08:10:52 10:07:13 Visit Salvatore 350.1.13.21 Co llege 0.2.7.2.686 of [id number] [facility] michael 504 e 2021-04-20 2021-04-20 Office GASTON De Leon 1.2.840.114 [id number] [facility] 08:00:00 09:04:24 Visit Elida Miller AMBULATOR 350.1.13.21 College Gary Hankins 0.2.7.2.686 of [id number] [facility] 310 e 2021-04-15 2021-04-15 Orders Malcolm, [facility] [id number] 00:00:00 00:00:00 Only [facility] 2021-04-14 2021-04-14 Outpatient [facility] Surgery [id number] [facility] 09:49:00 13:50:00 TAMERA 2021-04-14 2021-04-14 [facility] [id number] 09:49:00 13:50:00 Encounter [facility]era [facility] 2021-04-14 2021-04-14 Anesthesia Raf [facility] [id number] 11:24:00 12:13:[address] [facility] 2021-04-14 2021-04-14 Surgery Malcolm, [facility] [id number] 11:00:00 12:00:00 [facility] 2021-04-14 2021-04-14 Travel [facility] [id number] [facility] 00:[facility]00 00:00:00 [facility] 2021-04-12 2021-04-12 Outpatient [facility] SLE [id number] [facility]H 12:05:49 23:59:00 2021-04-12 2021-04-12 [facility] [id number] 11:40:00 23:59:00 Encounter [facility] 2021-04-12 2021-04-12 Travel [facility] [id number] [facility] 00:[facility]00 00:00:00 [facility] 2021-04-09 2021-04-09 Outpatient [facility] [id number] [facility] 09:48:13 23:59:00 [facility] [employer] 2021-04-09 2021-04-[address] [facility] 1.2.840.114 [id number] [facility] 08:01:19 10:49:33 Visit PAULINE Salvatore 350.1.13.21 Co llege 0.2.7.2.686 of [id number] Medi michael 580 e 2021-04-09 2021-04-[address] [facility] 1.2.840.114 [id number] [facility] 08:00:00 10:49:25 Visit Edward Salvatore 350.1.13.21 Co llege 0.2.7.2.686 of [id number] Medi michael 504 e 2021-03-23 2021-03-23 Outpatient HALEY, [facility] [id number] [facility] 14:15:09 14:57:25 ELIDA [employer] 2021-03-22 2021-03-22 Outpatient CAROLE [facility] [id number] [facility] 14:43:59 15:58:57 ALYCE [employer] 2021-03-16 2021-03-16 Orders Malcolm [facility] [id number] 00:00:00 00:00:00 Only [facility] 2021-03-15 2021-03-15 Office GASTON FOWLER [id number] [id number] [facility] 09:38:04 10:36:51 Visit DIPABEN AMBULATOR 350.1.13.21 College Y 0.2.7.2.686 of [id number] Medi michael 315 e 2021-03-12 2021-03-12 Outpatient [facility] [id number] [facility] 09:00:00 23:59:00 [employer] 2021-03-12 2021-03-[address] [facility] [id number] [id number] [facility] 08:04:54 14:45:44 Visit Salvatore 350.1.13.21 Co llege 0.2.7.2.686 of [id number] [facility] michael 504 e 2021-03-12 2021-03-12 Office GASTON GUPTA 1.2.840.114 [id number] [facility] 13:13:30 14:24:56 Visit YOMAIRA AMBULATOR 350.1.13.21 College Y 0.2.7.2.686 of [id number] [facility] michael 355 e 2021-03-04 2021-03-04 Outpatient ALYSIA JOSUE [facility] [id number] [facility] 09:56:53 23:59:00 2021-03-04 2021-03-04 [facility] [id number] 09:56:53 23:59:00 Encounter [facility] 2021-03-04 2021-03-04 Outpatient ALYSIA JOSUE [facility] [id number] SLE 09:56:45 23:59:00 2021-03-04 2021-03-04 [facility] [id number] [facility] 09:56:45 23:59:00 Encounter [facility] 2021-02-26 2021-02-[address] [facility] [id number] [facility] 09:04:56 11:46:36 CARL [facility] [employer] [facility] Medicin e 2021-02-26 2021-02-26 Outpatient [facility] [id number] [facility] 09:44:34 09:44:34 Colleg e [facility] Medicin e 2021-02-19 2021-02-19 Outpatient EL FIDEL, SLE SLE [id number] [facility] 10:58:05 23:59:00 CARL 2021-02-19 2021-02-19 Hospital Fidel [facility] [id number] 10:58:05 23:59:00 Encounter Carl Hall [facility] 2021-02-19 2021-02-19 Outpatient [facility] [id number] [facility] 09:12:52 23:59:00 Colleg e of Medicin e 2021-02-19 2021-02-[address] [facility] 1.2.840.114 [id number] [facility] 08:07:46 12:59:30 Visit PAULINE Salasr 350.1.13.21 Co llege 0.2.7.2.686 of [id number] Medi michael 580 e 2021-02-19 2021-02-[address] [facility] 1.2.840.114 [id number] [facility] 08:08:24 12:58:24 Visit DEVI Salasr 350.1.13.21 Co llege 0.2.7.2.686 of [id number] Medi michael 504 e 2021-02-19 2021-02-19 [id number] 00:00:00 00:00:00 Orders Carl [facility] 2021-02-09 2021-02-09 Office GERMANIA PARRA 1.2.840.114 [id number] [facility] 09:51:50 16:00:00 Visit CARL AMBULATOR 350.1.13.21 College Y 0.2.7.2.686 of [id number] Medi michael 300 e 2021-02-01 2021-02-01 Outside Alysia Shell [facility] [id number] 00:00:00 00:00:00 Orders [facility] 2021-01-29 2021-01-29 Outpatient [facility] [id number] [facility] 08:52:14 23:59:00 Colleg e of Medicin e 2021-01-29 2021-01-[address] [facility] 1.2.840.114 [id number] [facility] 07:27:17 12:16:24 Visit PAULINE Salvatore 350.1.13.21 Co llege 0.2.7.2.686 of [id number] [facility] michael 580 e 2021-01-29 2021-01-[address] [facility] 1.2.840.114 [id number] [facility] 07:26:40 12:14:51 Visit DEVI Salvatore 350.1.13.21 Co llege 0.2.7.2.686 of [id number] [facility] michael 504 e 2021-01-08 2021-01-08 Outpatient [facility] [id number] [facility] 09:59:31 23:59:00 Colleg e of Medicin e 2021-01-08 2021-01-[address] [facility] 1.2.840.114 [id number] [facility] 08:45:54 10:52:17 Visit Salvatore 350.1.13.21 Co llege 0.2.7.2.686 of [id number] [facility] michael 504 e 2020-12-31 2020-12-31 Outpatient [facility]H [facility] [id number] [facility] 00:00:00 00:00:00 2020-12-31 2020-12-31 Outpatient EL [facility] [id number] [facility] 00:00:00 00:00:00 2020-12-29 2020-12-29 Outpatient SLEH [facility] [id number] [facility] 08:54:11 08:54:11 2020-12-29 2020-12-29 Outpatient ALYSIA JOSUE SLE [id number] [facility] 00:00:00 00:00:00 2020-12-29 2020-12-29 Outpatient ALYSIA JOSUE SLE [id number] [facility] 00:00:00 00:00:00 2020-12-22 2020-12-22 Outpatient ALYSIA JOSUE [facility] [id number] [facility] 00:00:00 00:00:00 2020-12-18 2020-12-18 [facility] [id number] [facility] 09:37:08 23:59:00 Jessee gordlilo of Medicin e 2020-12-18 2020-12-[address] [facility] 1.2.840.114 [id number] [facility] 08:31:55 11:37:21 Visit PAULINE Salvatore 350.1.13.21 Co llege 0.2.7.2.686 of [id number] [facility] michael 580 e 2020-12-18 2020-12-[address] [facility] 1.2.840.114 [id number] [facility] 08:29:46 11:37:04 Visit Maksim Salvatore 350.1.13.21 Co llege 0.2.7.2.686 of [id number] [facility] 530 e 2020 2020 Letter JEFF Salguero 1.2.840.114 [id number] Univers 00:00:00 00:00:00 (Out) Kristie BAUM 350.1.13.10 it y of [facility] 4.2.7.2.686 [place] as [id number] [facility] 019 Branch 2020-12-16 2020-12-16 Laboratory Only, Adc Test [facility] 1.2.840. 114 [id number] Univers 13:33:21 13:48:21 Only Kevin Gandhi 350.1.13.10 ity [facility] 4.2.7.2.686 [facility] [id number] [facility] 353 Branch 2020-12-16 2020-12-16 Outpatient R HIRAM [facility] [id number] Univers 13:30:00 13:30:00 KEVIN ross of [facility] 2020-12-16 2020-12-16 Orders Doctor AGUILAR 1.2.840.114 [id number] Univers 00:00:00 00:00:00 Only PaulinassBAUTISTA montelongo 350.1.13.10 ity of [place] [facility] 4.2.7.2.686 Gordon as [id number] Medi john 009 Branch 2020-12-04 2020-12-04 Outpatient ALYSIA JOSUE SLE [id number] SLE 00:00:00 00:00:00 2020-11-27 2020-11-27 Outpatient BCM BC [id number] [facility] 09:31:32 23:59:00 Colleg e of Medicin e 2020-11-27 2020-11-[address] [facility] 1.2.840.114 [id number] [facility] 08:24:42 11:32:01 Visit PAULINE SalazarNair 350.1.13.21 Co llege 0.2.7.2.686 of [id number] Medi michael 580 e 2020-11-27 2020-11-[address] [facility] 1.2.840.114 [id number] [facility] 08:23:52 08:43:52 Visit Maksim SalazarNair 350.1.13.21 Co llege 0.2.7.2.686 of [id number] Medi michael 530 e 2020-11-06 2020-11-06 Outpatient [facility] [id number] [facility] 09:21:07 23:59:00 Colleg e of Medicin e 2020-10-29 2020-10-29 Outpatient ALYSIA JOSUE SLE [id number] SLE 00:00:00 00:00:00 2020-10-29 2020-10-29 Outpatient ALYSIA SHELL SLE [id number] SLE 00:00:00 00:00:00 2020-10-16 2020-10-16 Outpatient [facility] [id number] [facility] 09:24:27 23:59:00 Colleg e of Medicin e 2020-10-16 2020-10-[address] [facility] 1.2.840.114 [id number] [facility] 08:46:03 09:06:03 Visit Edjacek Salvatore 350.1.13.21 Co llege 0.2.7.2.686 of [id number] [facility] 530 e 2020-10-09 2020-10-09 Flight Operations Coordinator Indu, [facility] 1.2.840.114 [id number] 16:47:32 17:02:32 Visit Lab Main [place] 350.1.13.10 [place] 4.2.7.2.686 Professio [id number] [address] 2020-10-09 2020-10-09 Flight Operations Coordinator Indu, [facility] Lab Main [facility] 1.2.8 40.114 [id number] [facility] 16:47:32 17:02:32 Visit Devi Cheema 350.1.1 3.10 ity of [place].2.7.2.[place] Profess[place] [id number] [place] dical [address] 2020-10-09 2020-10-09 Outpatient R ANETTE, [facility] [id number] Univers 16:45:00 16:45:[address] [facility] 2020-10-09 2020-10-09 Orders Doctor AGUILAR 1.2.840.114 [id number] 00:00:00 00:00:00 Only Unassigned, BAUTISTA 350.1.13.10 [place] [facility] 4.2.7.2.686 [id number] 009 2020-10-09 2020-10-09 Orders Doctor AGUILAR 1.2.840.114 [id number] Univers 00:00:00 00:00:00 Only Unassigned, BAUTISTA 350.1.13.10 ity of [place] [facility] 4.2.7.2.686 Gordon as [id number] [facility] 009 Branch 2020-10-07 2020-10-07 Hospital Radiology [facility] 1.2.840.114 [id number] Univers 12:44:41 23:59:00 Encounter [place] 350.1.13.10 ity of [place].2.7.2.[place] [id number] [facility] 800 Branch 2020-10-07 2020-10-07 Hospital Radiology [facility] 1.2.840.114 [id number] 12:44:41 23:59:00 Encounter [place] 350.1.13.10 [place] 4.2.7.2.686 [place] [id number] 800 2020-10-07 2020-10-07 Outpatient R RADIOLOGY [facility] [id number] Univers 00:00:00 00:00:00 ity of [facility] 2020-10-07 2020-10-07 Orders Doctor JEFF 1.2.840.114 [id number] [facility] 00:00:00 00:00:00 Only Unassigned, BAUTISTA 350.1.13.10 ity of [place] [facility] 4.2.7.2.686 [facility] [id number] [place] [address] Branch 2020-10-07 2020-10-07 Orders Doctor JEFF 1.2.840.114 [id number] 00:00:00 00:00:00 Only Unassigned, BAUTISTA 350.1.13.10 [place] [facility] 4.2.7.2.686 [id number] 009 2020-10-02 2020-10-[address] [facility] [id number] [facility] 14:07:58 14:37:47 NICOLE Colleg e of Medicin e 2020-09-25 2020-09-25 Outpatient [facility] [id number] [facility] 09:19:11 23:59:00 Colleg e of Medicin e 2020-09-25 2020-09-25 Office MAYO Santillan 1.2.840.114 [id number] [facility] 08:21:51 08:51:51 Visit Devi Chase 350.1.13.21 Co felisa Berumen 0.2.7.2.686 of [id number] [facility] michael 530 e 2020-09-04 2020-09-[address] [facility] 1.2.840.114 [id number] [facility] 08:44:04 09:04:04 Visit Maksim Chase 350.1.13.21 Co felisa 0.2.7.2.686 of [id number] [facility] michael 530 e 2020-08-07 2020-08-[address] [facility] 1.2.840.114 [id number] [facility] 08:14:05 08:34:05 Visit Maksim Salvatore 350.1.13.21 Co llege 0.2.7.2.686 of 544.5427230 [facility] michael 530 e 2020-08-03 2020-08-03 Out[facility] [id number] SLE 00:00:00 00:00:00 2020-08-03 2020-08-03 Outpatient EL ALYSIA SHELL [facility] SLE [id number] SLE 00:00:00 00:00:00 2020-07-17 2020-07-17 Office GASTON Luciano 1.2.840.114 [id number] [facility] 11:11:16 13:55:05 Visit Jeff Lanza AMBULATOR 350.1.13.21 College Y 0.2.7.2.686 of [id number] [facility] michael 375 e 2020-07-17 2020-07-[address] [facility] 1.2.840.114 [id number] [facility] 08:54:37 09:14:37 Visit Edjacek Salvatore 350.1.13.21 Co llege 0.2.7.2.686 of [id number] [facility] michael 530 e 2020-06-26 2020-06-26 Outpatient [facility] [id number] [facility] 12:14:47 14:06:45 Colleg e of Medicin e 2020-06-26 2020-06-[address] [facility] 1.2.840.114 [id number] [facility] 08:20:14 08:40:14 Visit Edjacek Salvatore 350.1.13.21 Co llege 0.2.7.2.686 of [id number] [facility] michael 530 e 2020-06-05 2020-06-[address] [facility] 1.2.840.114 [id number] [id number] [facility] 08:14:57 11:09:13 Visit Edward Salvatore 350.1.13.21 Co llege 0.2.7.2.686 of [id number] [facility] michael 530 e 2020-05-01 2020-05-[address] [facility] 1.2.840.114 [id number] [facility] 10:17:13 12:04:38 Visit Edjacek Salvatore 350.1.13.21 Co llege 0.2.7.2.686 of [id number] [facility] michael 530 e 2020-04-23 2020-04-27 Inpatient GANDHI, [facility] [id number] 89 [place] 00:00:00 00:00:00 WEI 976 Method i 2020-04-23 2020-04-23 Outpatient MUSHER, [facility] [id number] 814 [place] 00:00:00 00:00:00 RAHEEM 077 Metho di 2020-04-23 2020-04-23 Outpatient OWEIS, [facility] [id number] 526 [place] 00:00:00 00:00:00 ISAURA 998 Method i 2020-04-20 2020-04-20 Outpatient NEDRAER, [facility] [id number] 816 [place] 00:00:00 00:00:00 RAHEEM 926 Metho di 2020-04-01 2020-04-01 Outpatient EL [facility]H [facility] [id number] [facility] 00:00:00 00:00:00 2020-04-01 2020-04-01 Outpatient SLEH [facility]H [id number] [facility] 00:00:00 00:00:00 2020-04-01 2020-04-01 Outpatient NEDRAER, [facility] [id number] 094 [place] 00:00:00 00:00:00 RAHEEM 652 Metho di 2020-03-20 2020-03-[address] [facility] 1.2.840.114 [id number] [facility] 15:05:27 16:42:03 Visit Edjacek Salvatore 350.1.13.21 Co llege 0.2.7.2.686 of [id number] [facility] michael 530 e 2020-03-13 2020-03-13 Outpatient EL ALYSIA SHELL [facility]H [id number] [facility] 00:00:00 00:00:00 2020-02-28 2020-02-[address] [facility] 1.2.840.114 [id number] [facility] 13:30:15 14:12:11 Visit Maksim SalazarNair 350.1.13.21 Co llege 0.2.7.2.686 of [id number] Medi michael 530 e 2020-02-25 2020-02-26 Outpatient [facility] [id number] [facility] 07:55:21 10:42:00 Colleg e of Medicin e 2020-02-04 2020-02-04 Outpatient JAVY LIN [facility] [id number] [facility] 00:00:00 00:00:00 SKYLER 2020-02-04 2020-02-04 Outpatient EL CHIKA SLEH SLEH [id number] [facility]H 00:00:00 00:00:00 SKYLER 2020-01-15 2020-01-[address] [facility] 1.2.840.114 [id number] [facility] 07:48:12 10:22:28 Visit Maksim Salasr 350.1.13.21 Co llege 0.2.7.2.686 of 483.2569234 [facility] michael 530 e 2020-01-09 2020-01-09 Outpatient [facility] [id number] [facility] 12:34:39 19:33:29 Colleg e of Medicin e 2020-01-09 2020-01-09 Office GASTON Lin 1.2.840.114 [id number] [facility] 13:58:26 15:56:16 Visit Skyler Malin AMBULATOR 350.1.13.21 College Y 0.2.7.2.686 of 564.8739889 [facility] michael 300 e 2019-12-30 2019-12-30 Office GERMANIA Luciano 1.2.840.114 [id number] [facility] 13:36:49 14:06:49 Visit Jeff Pool AMBULATOR 350.1.13.21 College Y 0.2.7.2.686 of [id number] [facility] michael 375 e 2019-10-30 2019-10-30 Office GERMANIA Luciano 1.2.840.114 [id number] 11:24:47 11:54:47 Visit Jeff Plascencian AMBULATOR 350.1.13.21 Y 0.2.7.2.686 [id number] 375 2019-10-30 2019-10-30 Office GASTON Luciano 1.2.840.114 [id number] [facility] 11:24:47 11:54:47 Visit Jeff Lanza AMBULATOR 350.1.13.21 College Y 0.2.7.2.686 of [id number] [facility] michael 375 e 2019-05-01 2019-05-01 GASTON Medel 1.2.840.114 [id number] 10:58:45 12:05:28 Visit Jeff SOTO 350.1.13.21 Y 0.2.7.2.686 [id number] 375 2019-05-01 2019-05-01 Office GASTON Luciano 1.2.840.[id number] [place] [address] 10:58:45 12:05:28 Visit Jeff HOANGATOR 350.1.13.21 College Y 0.2.7.2.686 of [id number] [facility] michael 375 e 2018-11-22 2018-11-22 GASTON eMdel 1.2.840.114 [id number] 09:44:57 10:31:02 Visit Jeff SOTO 350.1.13.21 Y 0.2.7.2.686 [id number] 315 2018-11-22 2018-11-22 GASTON Medel 1.2.840.114 [id number] [facility] 09:44:57 10:31:02 Visit Jeff HOANGATOR 350.1.13.21 College Y 0.2.7.2.686 of [id number] [facility] 315 e Results Test Description Test Time Test Comments Results Result [facility] e Comments CT, ABDOMEN 2022-07-08 RCC restaging, 15:30:00 Please schedule between 07/04/22 and [facility] patient->Immedi : 1960 Sex: ateWhich 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 This exam was performed according to our departmental dose-optimization program, which includes automated exposure control, adjustment of the mA and/or kV according to patient size and/or use of interactive reconstruction technique. Heart is normal in size. Great vessels are unremarkable. No adenopathy in the mediastinum or perihilar region. Trachea and mainstem bronchi are patent. There is moderate to severe pulmonary emphysema. A spiculated nodular lesion is seen in the right upper lobe measuring 2.5 cm benign cyst and stable since prior examination. A stable 4 mm nodule is seen in the right mid lobe. A stable 7 mm and 3 mm nodules are seen in the peripheral of the left lower lobe. No new nodular lesion, mass, or airspace disease is present. No pleural effusion or pleural based mass is seen. Stable expansile osteolytic lesions are seen in the right sixth rib. Osteosclerotic foci are seen involving the left third, fourth, fifth, sixth ribs may represent healing fractures. Liver and spleen are normal in size. An 8 x 18 mm hyperenhancing lesions in the right hepatic dome. Gallbladder is is not visualized. No biliary dilatation is noted. Pancreas is unremarkable. A 1.2 x 1.6 cm mass is seen in the right adrenal. A 0.6 x 0.9 cm mass is seen in the left adrenal. Both kidneys are normal in size and functioning. No hydronephrosis, hydroureter, or urolithiasis is noted. Focal cortical defect is seen in the upper pole right kidney third represent post procedure changes. An 8 mm cyst is seen in the mid inferior pole right kidney. The opacified small and large bowel are unremarkable. No small large dilatation seen. Appendix is not visualized. No mass, adenopathy or ascites is present in the abdomen or pelvis. Impression: 1. Pulmonary emphysema.2. Stable nodular lesions in the right upper, right mid, and left lower lobes. Recommend follow-up with repeat CT of chest in 12 months.3. Stable bilateral adrenal masses.4. Stable expansile osteolytic lesion involving the right sixth rib. Signed: Maurice Jara MDReport Verified Date/Time: 07/08/2022 15:30:14 Reading Location: [facility] C013Y CT Body Reading Room , CHEST, WITH IV 2022-07-08 RCC restaging, CONTRAST 15:30:00 Please schedule between 07/04/22 and [facility] - 07/13/22[facility] CENTERName: NENA Paez patient->Immedi : 1960 Sex: ateWhich 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 This exam was performed according to our departmental dose-optimization program, which includes automated exposure control, adjustment of the mA and/or kV according to patient size and/or use of interactive reconstruction technique. Heart is normal in size. Great vessels are unremarkable. No adenopathy in the mediastinum or perihilar region. Trachea and mainstem bronchi are patent. There is moderate to severe pulmonary emphysema. A spiculated nodular lesion is seen in the right upper lobe measuring 2.5 cm benign cyst and stable since prior examination. A stable 4 mm nodule is seen in the right mid lobe. A stable 7 mm and 3 mm nodules are seen in the peripheral of the left lower lobe. No new nodular lesion, mass, or airspace disease is present. No pleural effusion or pleural based mass is seen. Stable expansile osteolytic lesions are seen in the right sixth rib. Osteosclerotic foci are seen involving the left third, fourth, fifth, sixth ribs may represent healing fractures. Liver and spleen are normal in size. An 8 x 18 mm hyperenhancing lesions in the right hepatic dome. Gallbladder is is not visualized. No biliary dilatation is noted. Pancreas is unremarkable. A 1.2 x 1.6 cm mass is seen in the right adrenal. A 0.6 x 0.9 cm mass is seen in the left adrenal. Both kidneys are normal in size and functioning. No hydronephrosis, hydroureter, or urolithiasis is noted. Focal cortical defect is seen in the upper pole right kidney third represent post procedure changes. An 8 mm cyst is seen in the mid inferior pole right kidney. The opacified small and large bowel are unremarkable. No small large dilatation seen. Appendix is not visualized. No mass, adenopathy or ascites is present in the abdomen or pelvis. Impression: 1. Pulmonary emphysema.2. Stable nodular lesions in the right upper, right mid, and left lower lobes. Recommend follow-up with repeat CT of chest in 12 months.3. Stable bilateral adrenal masses.4. Stable expansile osteolytic lesion involving the right sixth rib. Signed: Maurice Jara Verified Date/Time: 07/08/2022 15:30:14 Reading Location: [facility] C013Y CT Body Reading Room 2022-04-23 11:36:56 Test Item Value Reference Range Interpretation Comme nts THYROID STIMULATING HORMONE See_Comment H Unless Otherwise Indicated, (test code = 91121-3) All Te sting Performed At: [facility], [address] [place], [place] [address] Weight Loss Sales Consultant: Connor Nicole M.D. CLIA Numb er [id number] Cap Accreditati on No. [Automated mess age] The system which generated this result transmitted ref erence range: 0.400 - 4.100 U IU/ML. The reference range was not used to interpret this result as normal/abnormal . AMANDA (test code = AMANDA) PT FASTING Lab Interpretation (test code Abnormal = 36301-8) [facility] [id number] 11:36:56 Test Item Value Reference Range Interpretation Comments FREE T4 (test code See_Comment Unless O therwise = 3024-7) Indicated, All Testing Performed At: [facility] [address] [place] [address] Laborator y Director: Mykel MaldonadoIA Number [id number] Cap Accreditation N o. [Autom ated message] The sy stem which generated this result transmitted ref erence range: 0.80 - 1 .90 NG/DL. The reference r edu was not used to int erpret this result as normal/abnormal . AMANDA (test code = PT FASTING AMANDA) [facility] Center[facility]PRE[facility]ENSIVE METABOLIC [id number] 17:59:14 Test Item Value Reference Range Interpretation Comments GLUCOSE (test code = See_Comment H [Autom ated message] 2345-7) The system whic h generated this result [...] as normal/abnor mal. CREATININE (test code See_Comment [Auto mated message] = 2160-0) The system [facility] generated this result transmitted ref erence range: 0.6 - 1. 3 MG/DL. The refe rence range was not u sed to interpret this result as normal/abnor mal. EGFR (test code = See_Comment [Automate d message] 11006-0) The system [facility] generated this result transmitted ref erence range: >60 ML/MIN/1.73. Th e reference range was not used to int erpret this result as normal/abnormal . BUN/CREAT RATIO (test See_Comment [Auto mated message] code = 3097-3) The system [facility] generated this result transmitted ref erence range: 6 - 28 R ATIO. The reference r edu was not used to interpret this result as normal/abnor mal. SODIUM (test code = See_Comment L RESULTS RECHECKED 2951-2) AND VERIFIED [Automated mess age] The system [facility] generated this result transmitted ref erence range: 133 - 14 6 MEQ/L. The refe rence range was not u sed to interpret this result as normal/abnor mal. POTASSIUM (test code = See_Comment [Aut omated message] 2233-3) The system [facility] generated this result transmitted ref erence range: 3.5 - 5. 4 MEQ/L. The refe rence range was not u sed to interpret this result as normal/abnor mal. CHLORIDE (test code = See_Comment L [Auto mated message] 8735-0) The system [facility] generated this result transmitted ref erence range: 100 - 11 2 MEQ/L. The refe rence range was not u sed to interpret this result as normal/abnor mal. CO2 (test code = See_Comment [Automated message] 1962-8) The system [facility] generated this result transmitted ref erence range: 21 - 30 MEQ/L. The reference r edu was not used to interpret this result as normal/abnor mal. CALCIUM (test code = See_Comment [Autom ated message] 17603-6) The system [facility] generated this result transmitted ref erence range: 8.5 - 10 .5 MG/DL. The refe rence range was not u sed to interpret this result as normal/abnor mal. PROTEIN TOTAL (test See_Comment [Automa griffin message] code = 2885-2) The system [employer] generated this result transmitted ref erence range: 6.1 - 8. 1 G/DL. The refer ence range was not u sed to interpret this result as normal/abnor mal. ALBUMIN (test code = See_Comment [Autom ated message] 13572-7) The system [employer] generated this result transmitted ref erence range: 3.4 - 4. 8 G/DL. The refer ence range was not u sed to interpret this result as normal/abnor mal. GLOBULINS, SERUM, See_Comment [Automate d message] TOTAL (test code = The syste m which 55121-1) generated this result transmitted ref erence range: 1.9 - 3. 7 G/DL. The refer ence range was not u sed to interpret this result as normal/abnor mal. A/G RATIO (test code = See_Comment [Aut omated message] 1759-0) The system [employer] generated this result transmitted ref erence range: 1.0 - 2. 6 RATIO. The refe rence range was not u sed to interpret this result as normal/abnor mal. BILIRUBIN TOTAL (test See_Comment [Auto mated message] code = 1975-2) The system [employer] generated this result transmitted ref erence range: <=1.2 MG /DL. The reference r edu was not used to interpret this result as normal/abnor mal. ALKALINE PHOSPHATASE 87 U/L 30-132 (test code = 6768-6) AST (SGOT) (test code 44 U/L 7-56 = 1920-8) ALT (SGPT) (test code 48 U/L 3-47 H TESTI NG PERFORMED AT = 1744-2) [facility] [place] [address] D, [address] [place] [address] CLIA NO. [id number] Unle ss Otherwise Indic ated, All Testing Per formed At: [facility], [address] [place] [address] Laborator y Director: Connor Nicole M.D. CLIA Number [id number] Cap [place]reditation [place] o. [id number] AMANDA (test code = AMANDA) PT FASTING Lab Interpretation Abnormal (test code = 72473-1) [facility] [id number] 17:51:11 Test Item Value Reference Range Interpretation Comments MAGNESIUM (test code See_Comment TESTIN G PERFORMED AT = 19245-8) [facility], [place] [address] [facility] [address] [place], [place] [address] CLIA NO. [id number] Unless Otherwise Indic ated, All Testing Per formed At: [facility], [address] [facility], [place] [address] Laboratory Dire ctor: Connor nichols M.D. CLIA Number [id number] [place] [id number] [Autom ated message] The sy stem which generated this result transmit griffin reference range : 1.6 - 2.6 MG/DL. The reference range was not used to interpr et this result as normal/abnormal . AMANDA (test code = PT FASTING AMANDA) [facility]CB W/AUTO DIFF WITH [id number] 17:08:41 Test Item Value Reference Range Interpretation Comments WHITE BLOOD CELL COUNT See_Comment [Aut omated message] (test code = 61010-3) The sy stem which generated this result transmit griffin reference range : 3.5 - 11.0 K/UL. [facility] reference range was not used to interpret this result as normal/abnormal . RED BLOOD CELL COUNT See_Comment [Autom ated message] (test code = 45813-9) The sy stem which generated this result transmit griffin reference range : 3.80 - 5.40 M/U L. The reference r edu was not used to interpret this result as normal/abnormal . HEMOGLOBIN (test code = See_Comment H [Au tomated message] 718-7) The system whic h generated this result transmit griffin reference range : 11.5 - 15.5 G/D L. The reference r edu was not used to interpret this result as normal/abnormal . HEMATOCRIT (test code = 47.5 % 34.0-45.0 H ) MEAN CORPUSCULAR VOLUME 98.5 fL 80.0-99.0 (test code = 35262-8) MEAN CORPUSCULAR 35.5 PG 25.0-33.0 H HEMOGLOBIN (test code = 30352-0) MEAN CORPUSCULAR See_Comment [Automated message] HEMOGLOBIN CONC (test The sy stem which code = 00678-6) generated th is result transmit griffin reference range : 31.0 - 36.0 G/D L. The reference r edu was not used to interpret this result as normal/abnormal . RED CELL DISTRIBUTION 13.3 % 11.5-15.0 WIDTH (test code = 81661-8) NEUTROPHILS % (test 58 % code = 54723-8) LYMPHOCYTES % (test 34 % code = 41486-5) MONOCYTES % (test code 6 % = 09155-8) EOSINOPHILS % (test 2 % code = 56405-1) BASOPHILS % (test code 0 % = 59577-8) PLATELET COUNT (test See_Comment TESTIN G PERFORMED code = 45694-4) AT [facility]. [facility] GARCIA MASON D, [address] [place] [address] CLIA N O. [id number] [Automated mess age] The system whic h generated this result transmit griffin reference range : 130 - 400 K/UL. The reference range was not used to interpret this result as normal/abnormal . NEUTROPHILS ABSOLUTE See_Comment [Autom ated message] COUNT (test code = The syste m which 00892-9) generated this result transmit griffin reference range : 1.50 - 7.50 K/U L. The reference r edu was not used to interpret this result as normal/abnormal . LYMPHOCYTES ABSOLUTE See_Comment [Autom ated message] COUNT (test code = The syste m which 03916-0) generated this result transmit griffin reference range : 1.00 - 4.00 K/U L. The reference r edu was not used to interpret this result as normal/abnormal . MONOCYTES ABSOLUTE See_Comment [Automat ed message] COUNT (test code = The syste m which 95939-9) generated this result transmit griffin reference range : 0.20 - 1.00 K/U L. The reference r edu was not used to interpret this result as normal/abnormal . BASOPHILS ABSOLUTE See_Comment Unless O therwise COUNT (test code = Indicated , All 01044-6) Testing Perform ed At: [facility], [address] [place] [address] [place] [address] Laborator y Director: Connor Nicole M.D. CLIA Number [id number] [facility] [place]. [id number] [Automated mess age] The system [employer] generated this result transmit griffin reference range : 0.00 - 0.20 K/U L. The reference r edu was not used to interpret this result as normal/abnormal . AMANDA (test code = AMANDA) PT FASTING Lab Interpretation Abnormal (test code = 40369-7) [facility] CenterCT, [id number] 13:11:00RCC restaging, pls do week of 04/15/2022 before 04/22/22 oncology apptRelease to patient->ImmediateW [facility] is preferred?->[employer] ID = [id number]; Insurance Company Name = [employer]; Insurance Company Phone Number = ; Policy Number =[id number] [facility] : 1960 Sex: FFINAL REPORT CT of the chest, abdomen and pelvis, with contrast Clinical History: C64.1\\S\\Malignant neoplasm of right kidney, except renal pelvis Technique: CT of the chest, abdomen and pelvis is performed with intravenous contrast administration. This exam was performed according to ourdepartmental dose optimization program which includes automated exposure control, adjustment of the mA and/or kV according to patient's size and/or use of iterative reconstructive technique. ComparisonFilm: 2021, September 10, 2021 Discussion: There is no supraclavicular, axillary, mediastinal or hilar lymphadenopathy. Heart and pericardium are unremarkable. Lungs are severely emphysematous. A spiculated right upper lobe opacity is stable, and a 7-8 mm left lower lobe subpleural nodule along with an adjacent 3 mm nodule is stable or marginally smaller. In the right upper lobe, there is a new 5 mm irregular opacity (image 58), and a new 4 mm nodule (image 67). There are trace secretions in the trachea. No significant bronchiectasis or bronchial wall thickening. Stable hypervascular focusat the right hepatic dome. No new liver mass is identified. No biliary ductal dilatation. Gallbladder is absent. The spleen, pancreas, are unremarkable. No interval change of right adrenal mass, which m easures approximately 1.7 x 1.3 cm. 7 mm left adrenal lesion is also grossly unchanged. A hypoenhancing lesion in the upper pole the right kidney adjacent to a surgical scar measures approximately 1 cm, marginally smaller, previously approximately 1.2 cm. No suspicious renal mass. No hydronephrosis orradiopaque stone. No bowel obstruction, or abnormal bowel wall thickening. In the pelvis, bladder isdecompressed. Uterus is absent. No adnexal mass. There is no ascites or lymphadenopathy. Bony structures demonstrate degenerative changes. Stable lytic/sclerotic and expansile lesion in the posterior right sixth rib. Impression: There are two new small opacities in the right upper lobe, measuring 5 mm, and 4 mm, amenable to follow-up. Other pulmonary opacities are stable. Advanced emphysema. No interval change of bilateral adrenal metastasis. Hypoenhancing right renal mass is marginally smaller. No new disease is identified in the abdomen or pelvis. Stable right six rib lesion, compatible with metastasis Signed: Maksim Piresort Verified Date/Time: 04/13/2022 13:11:20 Reading Location: [facility] C013X Ortho Consult Reading Room CT, CHEST, WITH IV [id number] 13:11:00C restaging, pls do week of 04/15/2022 before 04/22/22 oncology apptRelease to patient->Im[facility]WhAur[facility] is preferred?->[employer] ID = [id number]; Insurance Company Name = [employer]; Insurance Company Phone Number = ; Policy Number =[id number] [facility] : 1960 Sex: FFINAL REPORT CT of the chest, abdomen and pelvis, with contrast Clinical History: C64.1\\S\\Malignant neoplasm of right kidney, except renal pelvis Technique: CT of the chest, abdomen and pelvis is performed with intravenous contrast administration. This exam was performed according to ourdepartmental dose optimization program which includes automated exposure control, adjustment of the mA and/or kV according to patient's size and/or use of iterative reconstructive technique. ComparisonFilm: 2021, September 10, 2021 Discussion: There is no supraclavicular, axillary, mediastinal or hilar lymphadenopathy. Heart and pericardium are unremarkable. Lungs are severely emphysematous. A spiculated right upper lobe opacity is stable, and a 7-8 mm left lower lobe subpleural nodule along with an adjacent 3 mm nodule is stable or marginally smaller. In the right upper lobe, there is a new 5 mm irregular opacity (image 58), and a new 4 mm nodule (image 67). There are trace secretions in the trachea. No significant bronchiectasis or bronchial wall thickening. Stable hypervascular focusat the right hepatic dome. No new liver mass is identified. No biliary ductal dilatation. Gallbladder is absent. The spleen, pancreas, are unremarkable. No interval change of right adrenal mass, which m easures approximately 1.7 x 1.3 cm. 7 mm left adrenal lesion is also grossly unchanged. A hypoenhancing lesion in the upper pole the right kidney adjacent to a surgical scar measures approximately 1 cm, marginally smaller, previously approximately 1.2 cm. No suspicious renal mass. No hydronephrosis orradiopaque stone. No bowel obstruction, or abnormal bowel wall thickening. In the pelvis, bladder isdecompressed. Uterus is absent. No adnexal mass. There is no ascites or lymphadenopathy. Bony structures demonstrate degenerative changes. Stable lytic/sclerotic and expansile lesion in the posterior right sixth rib. Impression: There are two new small opacities in the right upper lobe, measuring 5 mm, and 4 mm, amenable to follow-up. Other pulmonary opacities are stable. Advanced emphysema. No interval change of bilateral adrenal metastasis. Hypoenhancing right renal mass is marginally smaller. No new disease is identified in the abdomen or pelvis. Stable right six rib lesion, compatible with metastasis Signed: Maksim Pires MDReport Verified Date/Time: 04/13/2022 13:11:20 Reading Location: [facility] B1 C013X Ortho Consult Reading Room COMPREHENSIVE METABOLIC [id number] 16:46:52 Test Item Value Reference Range Interpretation Comments GLUCOSE (test code = See_Comment [Autom ated message] 2345-7) The system [employer] generated this result transmitted ref erence range: 70 - 99 MG/DL. The reference r edu was not used to interpret this result as normal/abnor mal. BLOOD UREA NITROGEN See_Comment [Automa griffin message] (test code = 3091-6) The [facility] tem which generated this result transmitted ref erence range: 6 - 20 M G/DL. The reference r edu was not used to interpret this result as normal/abnor mal. CREATININE (test code = See_Comment [Au tomated message] 2160-0) The system [employer] generated this result transmitted ref erence range: 0.6 - 1. 3 MG/DL. The refe rence range was not u sed to interpret this result as normal/abnor mal. EGFR (test code = See_Comment [Automate d message] 88468-0) The system [employer] generated this result transmitted ref erence range: >60 ML/MIN/1.73. Th e reference range was not used to int erpret this result as normal/abnormal . BUN/CREAT RATIO (test See_Comment [Auto mated message] code = 3097-3) The system [employer] generated this result transmitted ref erence range: 6 - 28 R ATIO. The reference r edu was not used to interpret this result as normal/abnor mal. SODIUM (test code = See_Comment L [Automa griffin message] 2951-2) The system [facility] generated this result transmitted ref erence range: 133 - 14 6 MEQ/L. The refe rence range was not u sed to interpret this result as normal/abnor mal. POTASSIUM (test code = See_Comment $$$ S VASHTI SLIGHTLY 2823-3) HEMOLYZED $$$ [Automated mess age] The system [facility] generated this result transmitted ref erence range: 3.5 - 5. 4 MEQ/L. The refe rence range was not u sed to interpret this result as normal/abnor mal. CHLORIDE (test code = See_Comment L [Auto mated message] 5705-0) The system [facility] generated this result transmitted ref erence range: 100 - 11 2 MEQ/L. The refe rence range was not u sed to interpret this result as normal/abnor mal. CO2 (test code = See_Comment [Automated message] 1962-8) The system [facility] generated this result transmitted ref erence range: 21 - 30 MEQ/L. The reference r edu was not used to interpret this result as normal/abnor mal. CALCIUM (test code = See_Comment [Autom ated message] 00391-6) The system [facility] generated this result transmitted ref erence range: 8.5 - 10 .5 MG/DL. The refe rence range was not u sed to interpret this result as normal/abnor mal. PROTEIN TOTAL (test See_Comment [Automa griffin message] code = 2885-2) The system [facility] generated this result transmitted ref erence range: 6.1 - 8. 1 G/DL. The reference r edu was not used to interpret this result as normal/abnor mal. ALBUMIN (test code = See_Comment [Autom ated message] 64645-4) The system [facility] generated this result transmitted ref erence range: 3.4 - 4. 8 G/DL. The reference r edu was not used to interpret this result as normal/abnor mal. GLOBULINS, SERUM, TOTAL See_Comment [Au tomated message] (test code = 18038-4) The sy stem which generated this result transmitted ref erence range: 1.9 - 3. 7 G/DL. The reference r edu was not used to interpret this result as normal/abnor mal. A/G RATIO (test code = See_Comment [Aut omated message] 1758-0) The system [facility] h generated this result transmitted ref erence range: 1.0 - 2. 6 RATIO. The refe rence range was not u sed to interpret this result as normal/abnor mal. BILIRUBIN TOTAL (test See_Comment [Auto mated message] code = 1974-) The system ich generated this result transmitted ref erence range: <=1.2 MG /DL. The reference r edu was not used to interpret this result as normal/abnor mal. ALKALINE PHOSPHATASE 148 U/L 30-132 H (test code = 6768-6) AST (SGOT) (test code = 55 U/L 7-56 1920-8) ALT (SGPT) (test code = 57 U/L 3-47 H DURAN TING PERFORMED AT 174-2) CLINICAL PATHOL [facility], [place] [address] [facility] D, [address] [place] [address] CLIA NO. [id number] Unle ss Otherwise Indic ated, All Testing Per formed At: [facility] Pa thology [facility], [address] [place] [address] Laborator y Director: Connor Nicole M.D. CLIA Number [id number] Cap Accreditation [place] o. [id number] Lab Interpretation Abnormal (test code = 79584-7) [facility] [id number] 16:46:31 Test Item Value Reference Range Interpretation Comments MAGNESIUM (test code = See_[place] [address]-8) CLINICAL PATHOL [employer] [facility], [place] [address] [facility] [place], [place] [address] CLIA NO. [id number] Unless Otherwise Indic ated, All Testing Perform ed At: [facility]ol [facility], [address] [place] [address] Laboratory Dire ctor: Teresa Maldonado CLIA Number [id number] Cap Accreditation N o. [id number] [Automated mess age] The system which ge nerated this result tra nsmitted reference range : 1.6 - 2.6 MG/DL. The refe rence range was not used to interpret this result as normal/abnormal . [facility]CB W/AUTO DIFF WITH [id number] 16:22:48 Test Item Value Reference Range Interpretation Comments WHITE BLOOD CELL COUNT See_Comment H [Aut omated message] (test code = 82257-6) The sy stem which generated this result transmitted ref erence range: 3.5 - 11 .0 K/UL. The refer ence range was not u sed to interpret this result as normal/abnor mal. RED BLOOD CELL COUNT See_Comment [Autom ated message] (test code = 52814-2) The sy stem which generated this result [...] as normal/abnor mal. HEMATOCRIT (test code = 41.6 % 34.0-45.0 45679-1) MEAN CORPUSCULAR VOLUME 102.0 fL 80.0-99.0 H (test code = 79781-5) MEAN CORPUSCULAR 37.0 PG 25.0-33.0 H HEMOGLOBIN (test code = 13220-6) MEAN CORPUSCULAR See_Comment H [Automated message] HEMOGLOBIN CONC (test The sy stem which code = 68077-7) generated th is result transmitted ref erence range: 31.0 - 3 6.0 G/DL. The refer ence range was not u sed to interpret this result as normal/abnor mal. RED CELL DISTRIBUTION 13.5 % 11.5-15.0 WIDTH (test code = 31735-9) NEUTROPHILS % (test code 82 % = 08685-1) LYMPHOCYTES % (test code 13 % = 17029-9) MONOCYTES % (test code = 4 % 15036-3) EOSINOPHILS % (test code 1 % = 05978-6) BASOPHILS % (test code = 0 % 45984-2) PLATELET COUNT (test See_Comment TESTIN G PERFORMED AT code = 56863-7) CLINICAL PAT [facility], [place] [address] GARCIA MASONPaolo D, [address] [place] [address] CLIA NO. [id number] [Aut omated message] The sy stem which generated this result transmit griffin reference range : 130 - 400 K/UL. The reference range was not used to int erpret this result as normal/abnormal . NEUTROPHILS ABSOLUTE See_Comment H [Autom ated message] COUNT (test code = The syste m which 85216-2) generated this result transmitted ref erence range: 1.50 - 7 .50 K/UL. The refer ence range was not u sed to interpret this result as normal/abnor mal. LYMPHOCYTES ABSOLUTE See_Comment [Autom ated message] COUNT (test code = The syste m which 37817-3) generated this result transmitted ref erence range: 1.00 - 4 .00 K/UL. The refer ence range was not u sed to interpret this result as normal/abnor mal. MONOCYTES ABSOLUTE COUNT See_Comment [A utomated message] (test code = 00104-0) The sy stem which generated this result transmitted ref erence range: 0.20 - 1 .00 K/UL. The refer ence range was not u sed to interpret this result as normal/abnor mal. BASOPHILS ABSOLUTE COUNT See_Comment Un less Otherwise (test code = 11211-0) Indica griffin, All Testing Perform ed At: Clinical Pathol ogy [facility], [address] [place] [address] Laborator y Director: Connor Nicole M.D. CLIA Number [id number] Cap Accreditation N o. [id number] [Autom ated message] The sy stem which generated this result transmit griffin reference range : 0.00 - 0.20 K/UL. Th e reference range was not used to int erpret this result as normal/abnormal . Lab Interpretation (test Abnormal code = 16895-0) [facility] W/Doppler(CW/PW/Color)2022-03-11 15:16:52 Ejection FractionSLE [facility]CW/PW/Color)2022-03-11 15:16:52Ejection FractionSLEH ECHO HEARTLAB [facility] W/Doppler(CW/PW/Color)2022-03-11 15:16:52Ejection FractionSLEH ECHO HEARTLAB [facility] Echo W/Doppler(CW/PW/Color) 2022-03-11 15:16:52Ejection FractionSLEH ECHO HEARTLAB [facility] Echo W/Doppler(CW/PW/Color)2022-03-11 15:16:52Ejection FractionSLEH ECHO HEARTLAB K[facility] Echo W/Doppler(CW/PW/Color)2022-03-11 15:16:52Ejection FractionSLEH ECHO HEARTLAB [facility] Echo W/Doppler(CW/PW/Color) 2022-03-11 15:16:52Ejection FractionSLEH ECHO HEARTLAB [facility] Echo W/Doppler(CW/PW/Color)2022-03-11 15:16:52Ejection FractionSLEH ECHO HEARTLAB [facility] Transesophageal [id number] 17:51:36Ejection FractionSLEH ECHO HEARTLAB [facility] [id number] 17:51:36Ejection FractionSLEH ECHO HEARTLAB [facility] [id number] 17:51:36Ejection FractionSLEH ECHO HEARTLAB [facility] [id number] 17:51:36Ejection FractionSLEH ECHO HEARTLAB [facility] [id number] 17:51:36Ejection FractionSLEH ECHO HEARTLAB [facility] [id number] 17:51:36Ejection FractionSLEH ECHO HEARTLAB [facility] [id number] 17:51:36Ejection FractionSLEH ECHO HEARTLAB [facility] [id number] 17:51:36Ejection FractionSLEH ECHO [facility] [id number] 17:51:36Ejection FractionSLEH ECHO [facility]LAB [facility] [id number] 17:51:36Ejection FractionSLEH ECHO [facility]ARTLAB [facility] [id number] 17:51:36Ejection FractionSLEH ECHO [facility] CenterBASIC METABOLIC [id number] 05:22:06 Test Item Value Reference Range Interpretation Comments SODIUM (BEAKER) 134 meq/L 136-145 L (test code = 381) POTASSIUM 4.1 meq/L 3.5-5.1 (BEAKER) (test code = 379) CHLORIDE (BEAKER) 103 meq/L 98-107 (test code = 382) CO2 (BEAKER) 24 meq/L 22-29 (test code = 355) BLOOD UREA 9 mg/dL 7-21 NITROGEN (BEAKER) (test code = 354) CREATININE 0.67 mg/dL 0.57-1.25 (BEAKER) (test code = 358) GLUCOSE RANDOM 95 mg/dL 70-105 (BEAKER) (test code = 652) CALCIUM (BEAKER) 9.1 mg/dL 8.4-10.2 (test code = 697) EGFR (BEAKER) 99 Interpretatio n of eGFR (test code = mL/min/1.73 values Stage De scription 1092) sq m Result G1 Britany l or high >=90 G2 Mildly decreased 60-89 G3a Mildl y to moderately 45-5 9 G3b Moderately to s everely 30-44 G4 Severl y decreased 15-29 G5 Kidney failure <15Reported eGF R is based on the CKD-EPI 2021 equation that d oes not use a race coefficientEsti mated GFR is not as accur ate as Creatinine Carmen vera in predicting glom erular filtration rate . Estimated GFR is not appl icable for dialysis patien ts Pl Sql Programmer ID - NAHUN [id number] 05:22:06 Test Item Value Reference Range Interpretation Comments MAGNESIUM (BEAKER) (test code = 1.8 mg/dL 1.6-2.6 627) Pl Sql Programmer ID - NAHUN WCBC (HEMOGRAM ONLY)2022-02-05 04:45:27 Test Item Value Reference Range Interpretation Comments WHITE BLOOD CELL COUNT (BEAKER) 9.1 K/ L 3.5-10.5 (test code = 775) RED BLOOD CELL COUNT (BEAKER) 2.80 M/ L 3.93-5.22 L (test code = 761) HEMOGLOBIN (BEAKER) (test code = 10.2 GM/DL 11.2-15.7 L 410) HEMATOCRIT (BEAKER) (test code = 30.3 % 34.1-44.9 L 411) MEAN CORPUSCULAR VOLUME (BEAKER) 108 fL 79-95 H (test code = 753) MEAN CORPUSCULAR HEMOGLOBIN 36.4 pg 25.6-32.2 H (BEAKER) (test code = 751) MEAN CORPUSCULAR HEMOGLOBIN CONC 33.7 GM/DL 32.2-35.5 (BEAKER) (test code = 752) RED CELL DISTRIBUTION WIDTH 17.2 % 11.7-14.4 H (BEAKER) (test code = 412) PLATELET COUNT (BEAKER) (test 392 K/CU MM 150-450 code = 756) MEAN PLATELET VOLUME (BEAKER) 8.6 fL 9.4-12.3 L (test code = 754) NUCLEATED RED BLOOD CELLS 0 /100 WBC 0-0 (BEAKER) (test code = 413) [id number] 16:15:34 Test Item Value Reference Range Interpretation Comments MAGNESIUM (BEAKER) (test code = 2.2 mg/dL 1.6-2.6 627) Pl Sql Programmer ID - [id number] 16:15:34 Test Item Value Reference Range Interpretation Comments POTASSIUM (BEAKER) (test code = 3.9 meq/L 3.5-5.1 379) Pl Sql Programmer ID - BS2D Echo W/Doppler(CW/PW/Color)2022-02-04 14:36:03[facility]CW/PW/Color[facility]2022-02-04 14:36:03Ejection [facility]SLEH [facility] W[facility]Do[facility](CW/PW/Color) 2022-02-04 14:36:03Ejection FractionSLEH ECHO [facility] W/Doppler(CW/PW/Color)2022-02-04 14:36:03Ejection FractionSLEH ECHO [facility] W/Doppler(CW/PW/Color)2022-02-04 14:36:03Ejection FractionSLEH ECHO HE[facility] Echo W/Doppler(CW/PW/Color) 2022-02-04 14:36:03Ejection FractionSLEH ECHO HE[facility] Echo W/Doppler(CW/PW/Color)2022-02-04 14:36:03Ejection FractionSLEH ECHO [facility] W/Doppler(CW/PW/Color)2022-02-04 14:36:03Ejection FractionSLEH ECHO HE[facility] Echo W/Doppler(CW/PW/Color) 2022-02-04 14:36:03Ejection FractionSLEH ECHO HE[facility] Echo W/Doppler(CW/PW/Color)2022-02-04 14:36:03Ejection FractionSLEH ECHO [facility] W/Doppler(CW/PW/Color)2022-02-04 14:36:03Ejection FractionSLEH ECHO [facility], 1 [facility], NON [id number] 12:13:00Reason for exam:->atelectasisShould this be performed at the bedside?->Yes[facility] : 1960 Sex: FFINAL REPORT INDICATION: atelectasis COMPARISON: 02/03/2022 TECHNIQUE: Single frontal view of the chest. FINDINGS: Lines, tubes, and devices: The right internal jugular vein central venouscatheter tip overlies the superior vena cava.Lungs and pleura: Clear lungs. Pulmonary emphysematous changes. No pneumothorax.Heart and mediastinum: Normal heart size. A foramen ovale closure device seen.Osseous structures: No acute abnormality.Other: None. IMPRESSION: The right internal jugular vein central venous catheter tip overlies the superior vena cava. Signed: Joseluis Friedman MDReport Verified Date/Time: 02/04/2022 12:13:58 Reading Location: [address] Reading Room HEPATIC FUNCTION [id number] 08:49:11 Test Item Value Reference Range Interpretation Comments TOTAL PROTEIN (BEAKER) (test code = 5.2 gm/dL 6.0-8.3 L 770) ALBUMIN (BEAKER) (test code = 1145) 3.1 g/dL 3.5-5.0 L BILIRUBIN TOTAL (BEAKER) (test code 0.5 mg/dL 0.2-1.2 = 377) BILIRUBIN DIRECT (BEAKER) (test 0.2 mg/dL 0.1-0.5 code = 706) ALKALINE PHOSPHATASE (BEAKER) (test 77 U/L 40-150 code = 346) AST (SGOT) (BEAKER) (test code = 41 U/L 5-34 H 353) ALT (SGPT) (BEAKER) (test code = 62 U/L 6-55 H 347) Pl Sql Programmer ID Debbie GARNICA [id number] 05:32:30 Test Item Value Reference Range Interpretation Comments MAGNESIUM (BEAKER) (test code = 2.6 mg/dL 1.6-2.6 627) Pl Sql Programmer ID Debbie GARNICA WBASIC METABOLIC [id number] 05:32:29 Test Item Value Reference Range Interpretation Comments SODIUM (BEAKER) 133 meq/L 136-145 L (test code = 381) POTASSIUM 4.6 meq/L 3.5-5.1 (BEAKER) (test code = 379) CHLORIDE (BEAKER) 104 meq/L 98-107 (test code = 382) CO2 (BEAKER) 23 meq/L 22-29 (test code = 355) BLOOD UREA 8 mg/dL 7-21 NITROGEN (BEAKER) (test code = 354) CREATININE 0.61 mg/dL 0.57-1.25 (BEAKER) (test code = 358) GLUCOSE RANDOM 111 mg/dL 70-105 H (BEAKER) (test code = 652) CALCIUM (BEAKER) 8.7 mg/dL 8.4-10.2 (test code = 697) EGFR (BEAKER) 101 Interpretatio n of eGFR (test code = [...] not as accur ate as Creatinine Carmen vera in predicting glom erular filtration rate . Estimated GFR is not appl icable for dialysis patien ts Pl Sql Programmer ID Debbie GARNICA WCBC (HEMOGRAM ONLY)2022-02-04 04:50:07 Test Item Value Reference Range Interpretation Comments WHITE BLOOD CELL COUNT (BEAKER) 7.9 K/ L 3.5-10.5 (test code = 775) RED BLOOD CELL COUNT (BEAKER) 2.51 M/ L 3.93-5.22 L (test code = 761) HEMOGLOBIN (BEAKER) (test code = 9.3 GM/DL 11.2-15.7 L 410) HEMATOCRIT (BEAKER) (test code = 26.8 % 34.1-44.9 L 411) MEAN CORPUSCULAR VOLUME (BEAKER) 107 fL 79-95 H (test code = 753) MEAN CORPUSCULAR HEMOGLOBIN 37.1 pg 25.6-32.2 H (BEAKER) (test code = 751) MEAN CORPUSCULAR HEMOGLOBIN CONC 34.7 GM/DL 32.2-35.5 (BEAKER) (test code = 752) RED CELL DISTRIBUTION WIDTH 17.2 % 11.7-14.4 H (BEAKER) (test code = 412) PLATELET COUNT (BEAKER) (test 359 K/CU MM 150-450 code = 756) MEAN PLATELET VOLUME (BEAKER) 8.7 fL 9.4-12.3 L (test code = 754) NUCLEATED RED BLOOD CELLS 0 /100 WBC 0-0 (BEAKER) (test code = 413) BASIC METABOLIC [id number] 01:16:58 Test Item Value Reference Range Interpretation Comments SODIUM (BEAKER) 129 meq/L 136-145 L (test code = 381) POTASSIUM 4.4 meq/L 3.5-5.1 (BEAKER) (test code = 379) CHLORIDE (BEAKER) 101 meq/L 98-107 (test code = 382) CO2 (BEAKER) 23 meq/L 22-29 (test code = 355) BLOOD UREA 8 mg/dL 7-21 NITROGEN (BEAKER) (test code = 354) CREATININE 0.62 mg/dL 0.57-1.25 (BEAKER) (test code = 358) GLUCOSE RANDOM 121 mg/dL 70-105 H (BEAKER) (test code = 652) CALCIUM (BEAKER) 8.4 mg/dL 8.4-10.2 (test code = 697) EGFR (BEAKER) 101 Interpretatio n of eGFR (test code = [...] not appl icable for dialysis patien ts Pl Sql Programmer ID - IVETTE [id number] 01:16:58 Test Item Value Reference Range Interpretation Comments MAGNESIUM (BEAKER) (test code = 3.0 mg/dL 1.6-2.6 H 627) Pl Sql Programmer ID - IVETTE LT4, [id number] 19:47:29 Test Item Value Reference Range Interpretation Comments FREE T4 (BEAKER) (test code = 655) 1.22 ng/dL 0.70-1.48 Pl Sql Programmer ID - BSTSH/FREE T4 IF [id number] 19:16:47 Test Item Value Reference Range Interpretation Comments THYROID STIMULATING HORMONE 0.092 uIU/mL 0.350-4.940 L (BEAKER) (test code = 772) Pl Sql Programmer ID - BSBASIC METABOLIC [id number] 19:03:24 Test Item Value Reference Range Interpretation Comments SODIUM (BEAKER) 133 meq/L 136-145 L (test code = 381) POTASSIUM 4.6 meq/L 3.5-5.1 (BEAKER) (test code = 379) CHLORIDE (BEAKER) 106 meq/L 98-107 (test code = 382) CO2 (BEAKER) 21 meq/L 22-29 L (test code = 355) BLOOD UREA 9 mg/dL 7-21 NITROGEN (BEAKER) (test code = 354) CREATININE 0.61 mg/dL 0.57-1.25 (BEAKER) (test code = 358) GLUCOSE RANDOM 106 mg/dL 70-105 H (BEAKER) (test code = 652) CALCIUM (BEAKER) 9.1 mg/dL 8.4-10.2 (test code = 697) EGFR (BEAKER) 101 Interpretatio n of eGFR (test code = mL/min/1.73 values Stage De scription 1092) sq m Result G1 Britany l or high >=90 G2 Mildly decreased 60-89 G3a Mildl y to moderately 45-5 9 G3b Moderately to s everely 30-44 G4 Severl y decreased 15-29 G5 Kidney failure <15Reported eGF R is based on the CKD-EPI 2021 equation that d oes not use a race coefficientEsti mated GFR is not as accur ate as Creatinine Carmen vera in predicting glom erular filtration rate . Estimated GFR is not appl icable for dialysis patien ts Pl Sql Programmer ID - FSERAD, CHEST, 1 VIEW, NON [id number] 16:27:00Reason for exam:->Hx lung nodules [facility] : 1960 Sex: FFINALREPORT INDICATION: Hx lung nodules COMPARISON: 01/02/2022 TECHNIQUE: Single frontal view of the chest. IMPRESSION: Lungs and pleura: There is no airspace consolidation or effusion. No focal nodular opacity. Heart and mediastinum: Normal heart size. Unremarkable mediastinal contours. Osseous structures: No acute abnormality. Other: Right transjugular central venous catheter terminates in the SVC. Signed: Maurice Umanzor Verified Date/Time: 02/03/2022 16:27:59 POC ACTIVATED CLOTTING [id number] 16:17:26 Test Item Value Reference Range Interpretation Comments Activated Clotting Time 132 sec : 74 -137 seconds, (test code = 3184-9) Pat e: TESTED AT [address] [place], [address]: Pl Sql Programmer/Techni bismark ID = [id number] for ALEX WELLS [facility] ACTIVATED CLOTTING [id number] 16:17:26 Test Item Value Reference Range Interpretation Comments Activated Clotting Time 132 sec : 74 -137 seconds, (test code = 3184-9) Baselin e: TESTED AT [address], [address]: Pl Sql Programmer/Techni bismark ID = [id number] for NI ETO, ALEX KELECHI [facility] ACTIVATED CLOTTING [id number] 16:17:26 Test Item Value Reference Range Interpretation Comments Activated Clotting Time 132 sec : 74 -137 seconds, (test code = 3184-9) Baselin e: TESTED AT [address], [address]: Pl Sql Programmer/Techni bismark ID = [id number] for NI ETO, ALEX [facility] ACTIVATED CLOTTING [id number] 16:17:26 Test Item Value Reference Range Interpretation Comments Activated Clotting Time 132 sec : 74 -137 seconds, (test code = 3184-9) Baselin e: TESTED AT [address], [address]: Pl Sql Programmer/Techni bismark ID = [id number] for NI ETO, ALEX [facility] ACTIVATED CLOTTING [id number] 16:17:26 Test Item Value Reference Range Interpretation Comments Activated Clotting Time 132 sec : 74 -137 seconds, (test code = 3184-9) Baselin e: TESTED AT [address], [address]: Pl Sql Programmer/Techni bismark ID = [id number] for NI ETO, ALEX KELECHI [facility] ACTIVATED CLOTTING [id number] 16:17:26 Test Item Value Reference Range Interpretation Comments Activated Clotting Time 132 sec : 74 -137 seconds, (test code = 3184-9) Baselin e: TESTED AT [address], [address]: Pl Sql Programmer/Techni bismark ID = [id number] for NI ETO, ALEX [facility] ACTIVATED CLOTTING [id number] 16:17:26 Test Item Value Reference Range Interpretation Comments Activated Clotting Time 132 sec : 74 -137 seconds, (test code = 3184-9) Baselin e: TESTED AT [address], [address]: Pl Sql Programmer/Techni bismark ID = [id number] for NI ETO, ALEX [facility] ACTIVATED CLOTTING [id number] 16:17:26 Test Item Value Reference Range Interpretation Comments Activated Clotting Time 132 sec : 74 -137 seconds, (test code = 3184-9) Baselin e: TESTED AT [address], [address]: Pl Sql Programmer/Techni bismark ID = [id number] for NI ETOALEX [facility] ACTIVATED CLOTTING [id number] 16:17:26 Test Item Value Reference Range Interpretation Comments Activated Clotting Time 132 sec : 74 -137 seconds, (test code = 3184-9) Baselin e: TESTED AT [address], [address]: Pl Sql Programmer/Techni bismark ID = [id number] for NI ETOALEX [facility] ACTIVATED CLOTTING [id number] 16:17:26 Test Item Value Reference Range Interpretation Comments Activated Clotting Time 132 sec : 74 -137 seconds, (test code = 3184-9) Baselin e: TESTED AT [address], [address] [address]: Pl Sql Programmer/Techni bismark ID = [id number] for NI ETOALEX [facility] ACTIVATED CLOTTING [id number] 16:17:26 Test Item Value Reference Range Interpretation Comments Activated Clotting Time 132 sec : 74 -137 seconds, (test code = 3184-9) Baselin e: TESTED AT [address], [address]: Pl Sql Programmer/Techni bismark ID = [id number] [facility]EX [id number] 16:17:26 Test Item Value Reference Range Interpretation Comments ACTIVATED CLOTTING TIME 132 sec : 74 -137 seconds, (BEAKER) (test code = Baseli ne: TESTED AT 441) [address], [address]: Pl Sql Programmer/Techni bismark ID = [id number] for NI ETOALEX [id number] 14:51:00 Test Item Value Reference Range Interpretation Comments MAGNESIUM (BEAKER) (test code = 1.2 mg/dL 1.6-2.6 L 627) Pl Sql Programmer ID - FSECOMPREHENSIVE METABOLIC [id number] 14:19:44 Test Item Value Reference Range Interpretation Comments TOTAL PROTEIN 3.8 gm/dL 6.0-8.3 L (BEAKER) (test code = 770) ALBUMIN (BEAKER) 2.3 g/dL 3.5-5.0 L (test code = 1145) ALKALINE 66 U/L 40-150 PHOSPHATASE (BEAKER) (test code = 346) BILIRUBIN TOTAL 0.6 mg/dL 0.2-1.2 (BEAKER) (test code = 377) SODIUM (BEAKER) 138 meq/L 136-145 (test code = 381) POTASSIUM (BEAKER) 2.9 meq/L 3.5-5.1 L (test code = 379) CHLORIDE (BEAKER) 118 meq/L 98-107 H (test code = 382) CO2 (BEAKER) (test 17 meq/L 22-29 L code = 355) BLOOD UREA 7 mg/dL 7-21 NITROGEN (BEAKER) (test code = 354) CREATININE 0.44 mg/dL 0.57-1.25 L (BEAKER) (test code = 358) GLUCOSE RANDOM 83 mg/dL 70-105 (BEAKER) (test code = 652) CALCIUM (BEAKER) 6.3 mg/dL 8.4-10.2 L (test code = 697) AST (SGOT) 94 U/L 5-34 H (BEAKER) (test code = 353) ALT (SGPT) 62 U/L 6-55 H (BEAKER) (test code = 347) EGFR (BEAKER) 109 Interpretatio n of eGFR (test code = 1092) mL/min/1.[address] age Description sq m Result G1 Britany l or high >=90 G2 Mildly decreased 60-89 G3a Mildl y to moderately 45-5 9 G3b Moderately to s everely 30-44 G4 Severl y decreased 15-29 G5 Kidney failure <15Reported eGF R is based on the CKD-EPI 2021 equation that d oes not use a race coefficientEsti mated GFR is not as accur ate as Creatinine Carmen vera in predicting glom erular filtration rate . Estimated GFR is not appl icable for dialysis patien ts Pl Sql Programmer ID - MITCHLactic Acid, [id number] 14:10:29 Test Item Value Reference Range Interpretation Comments Lactate, Art (test 1.2 mmol/L 0.5-2.2 Specimen code = 2874) slightly hemolyzed AMANDA (test code = AMANDA) Pl Sql Programmer ID - REBECCA Lab Interpretation Normal (test code = 27595-4) [facility] [id number] 14:10:29 Test Item Value Reference Range Interpretation Comments Lactate, Art (test 1.2 mmol/L 0.5-2.2 Specimen code = 2874) slightly hemolyzed AMANDA (test code = AMANDA) Pl Sql Programmer ID - REBECCA Lab Interpretation Normal (test code = 12806-1) [facility] [id number] 14:10:29 Test Item Value Reference Range Interpretation Comments Lactate, Art (test 1.2 mmol/L 0.5-2.2 Specimen code = 2874) slightly hemolyzed AMANDA (test code = AMANDA) Pl Sql Programmer ID - REBECCA Lab Interpretation Normal (test code = 57078-9) [facility], [id number] 14:10:29 Test Item Value Reference Range Interpretation Comments Lactate, Art (test 1.2 mmol/L 0.5-2.2 Specimen code = 2874) slightly hemolyzed AMANDA (test code = AMANDA) Pl Sql Programmer ID - REBECCA Lab Interpretation Normal (test code = 38864-3) [facility], [id number] 14:10:29 Test Item Value Reference Range Interpretation Comments Lactate, Art (test 1.2 mmol/L 0.5-2.2 Specimen code = 2874) slightly hemolyzed AMANDA (test code = AMANDA) Pl Sql Programmer ID - REBECCA Lab Interpretation Normal (test code = 13929-4) [facility], [id number] 14:10:29 Test Item Value Reference Range Interpretation Comments Lactate, Art (test 1.2 mmol/L 0.5-2.2 Specimen code = 2874) slightly hemolyzed AMANDA (test code = AMANDA) Pl Sql Programmer ID - REBECCA Lab Interpretation Normal (test code = 63017-0) [facility] [id number] 14:10:29 Test Item Value Reference Range Interpretation Comments Lactate, Art (test 1.2 mmol/L 0.5-2.2 Specimen code = 2874) slightly hemolyzed AMANDA (test code = AMANAD) Pl Sql Programmer ID - REBECCA Lab Interpretation Normal (test code = 58005-4) [facility], [id number] 14:10:29 Test Item Value Reference Range Interpretation Comments Lactate, Art (test 1.2 mmol/L 0.5-2.2 Specimen code = 2874) slightly hemolyzed AMANDA (test code = AMANDA) Pl Sql Programmer ID - [facility] Lab Interpretation Normal (test code = 76932-6) [facility], [id number] 14:10:29 Test Item Value Reference Range Interpretation Comments Lactate, Art (test 1.2 mmol/L 0.5-2.2 Specimen code = 2874) slightly hemolyzed AMANDA (test code = AMANDA) Pl Sql Programmer ID - [facility] Lab Interpretation Normal (test code = 59699-2) [facility], [id number] 14:10:29 Test Item Value Reference Range Interpretation Comments Lactate, Art (test 1.2 mmol/L 0.5-2.2 Specimen code = 2874) slightly hemolyzed AMANDA (test code = AMANDA) Pl Sql Programmer ID - [facility] Lab Interpretation Normal (test code = 37454-9) [facility], [id number] 14:10:29 Test Item Value Reference Range Interpretation Comments Lactate, Art (test 1.2 mmol/L 0.5-2.2 Specimen code = 2874) slightly hemolyzed AMANDA (test code = AMANDA) Pl Sql Programmer ID - [facility] Lab Interpretation Normal (test code = 46765-3) [facility], [id number] 14:10:29 Test Item Value Reference Range Interpretation Comments LACTATE BLOOD 1.2 mmol/L 0.5-2.2 Specimen sligh tly ARTERIAL (2) (BEAKER) hemoly zed (test code = 2874) Pl Sql Programmer ID - [facility], [id number] 13:57:53 Test Item Value Reference Range Interpretation Comments pH, Arterial (test code 7.36 7.35-7.45 = 2744-1) pCO2, Arterial (test 45 See_Comment [Autom ated code = 2019-8) message] The system which generated this result transmitted reference range : 35 - 45 mm Hg. The reference range was not used to interpret this result as normal/abnormal . pO2, Arterial (test 149 See_Comment H [Automa griffin code = 2703-7) message] The system which generated this result transmitted reference range : 80 - 90 mm Hg. The reference range was not used to interpret this result as normal/abnormal . O2 Sat, Arterial (test 98.8 % 96.0-97.0 H code = 2708-6) HCO3, Arterial (test 25 mmol/L 21-29 code = 1960-4) Base Excess, Arterial -0.9 mmol/L -2.0-3.0 (test code = 1925-7) Patient Temperature 37.5 (test code = 8310-5) FIO2 (test code = 1819) 21 Lab Interpretation Abnormal (test code = 08984-9) [facility], [id number] 13:57:53 Test Item Value Reference Range Interpretation Comments pH, Arterial (test code 7.36 7.35-7.45 = 2744-1) pCO2, Arterial (test 45 See_Comment [Autom ated code = 2018-11) message] The system which generated this result transmitted reference range : 35 - 45 mm Hg. The reference range was not used to interpret this result as normal/abnormal . pO2, Arterial (test 149 See_Comment H [Automa griffin code = 2703-7) message] The system which generated this result transmitted reference range : 80 - 90 mm Hg. The reference range was not used to interpret this result as normal/abnormal . O2 Sat, Arterial (test 98.8 % 96.0-97.0 H code = 2708-6) HCO3, Arterial (test 25 mmol/L 21-29 code = 1960-4) Base Excess, Arterial -0.9 mmol/L -2.0-3.0 (test code = 1925-7) Patient Temperature 37.5 (test code = 8310-5) FIO2 (test code = 1819) 21 Lab Interpretation Abnormal (test code = 45434-5) [facility] [id number] 13:57:53 Test Item Value Reference Range Interpretation Comments pH, Arterial (test code 7.36 7.35-7.45 = 2744-1) pCO2, Arterial (test 45 See_Comment [Autom ated code = 2018-11) message] The system which generated this result transmitted reference range : 35 - 45 mm Hg. The reference range was not used to interpret this result as normal/abnormal . pO2, Arterial (test 149 See_Comment H [Automa griffin code = 2703-7) message] The system which generated this result transmitted reference range : 80 - 90 mm Hg. The reference range was not used to interpret this result as normal/abnormal . O2 Sat, Arterial (test 98.8 % 96.0-97.0 H code = 2708-6) HCO3, Arterial (test 25 mmol/L 21-29 code = 1960-4) Base Excess, Arterial -0.9 mmol/L -2.0-3.0 (test code = 1925-7) Patient Temperature 37.5 (test code = 8310-5) FIO2 (test code = 1819) 21 Lab Interpretation Abnormal (test code = 12867-4) [facility] [id number] 13:57:53 Test Item Value Reference Range Interpretation Comments pH, Arterial (test code 7.36 7.35-7.45 = 2744-1) pCO2, Arterial (test 45 See_Comment [Autom ated code = 2018-11) message] The system which generated this result transmitted reference range : 35 - 45 mm Hg. The reference range was not used to interpret this result as normal/abnormal . pO2, Arterial (test 149 See_Comment H [Automa griffin code = 2703-7) message] The system which generated this result transmitted reference range : 80 - 90 mm Hg. The reference range was not used to interpret this result as normal/abnormal . O2 Sat, Arterial (test 98.8 % 96.0-97.0 H code = 2708-6) HCO3, Arterial (test 25 mmol/L 21-29 code = 1960-4) Base Excess, Arterial -0.9 mmol/L -2.0-3.0 (test code = 1925-7) Patient Temperature 37.5 (test code = 8310-5) FIO2 (test code = 1819) 21 Lab Interpretation Abnormal (test code = 33386-0) [facility] [id number] 13:57:53 Test Item Value Reference Range Interpretation Comments pH, Arterial (test code 7.36 7.35-7.45 = 2744-1) pCO2, Arterial (test 45 See_Comment [Autom ated code = 2018-11) message] The system which generated this result transmitted reference range : 35 - 45 mm Hg. The reference range was not used to interpret this result as normal/abnormal . pO2, Arterial (test 149 See_Comment H [Automa griffin code = 2703-7) message] The system which generated this result transmitted reference range : 80 - 90 mm Hg. The reference range was not used to interpret this result as normal/abnormal . O2 Sat, Arterial (test 98.8 % 96.0-97.0 H code = 2708-6) HCO3, Arterial (test 25 mmol/L 21-29 code = 1960-4) Base Excess, Arterial -0.9 mmol/L -2.0-3.0 (test code = 1925-7) Patient Temperature 37.5 (test code = 8310-5) FIO2 (test code = 1819) 21 Lab Interpretation Abnormal (test code = 04591-3) [facility] [id number] 13:57:53 Test Item Value Reference Range Interpretation Comments pH, Arterial (test code 7.36 7.35-7.45 = 2744-1) pCO2, Arterial (test 45 See_Comment [Autom ated code = 2019-8) message] The system which generated this result transmitted reference range : 35 - 45 mm Hg. The reference range was not used to interpret this result as normal/abnormal . pO2, Arterial (test 149 See_Comment H [Automa griffin code = 2703-7) message] The system which generated this result transmitted reference range : 80 - 90 mm Hg. The reference range was not used to interpret this result as normal/abnormal . O2 Sat, Arterial (test 98.8 % 96.0-97.0 H code = 2708-6) HCO3, Arterial (test 25 mmol/L 21-29 code = 1960-4) Base Excess, Arterial -0.9 mmol/L -2.0-3.0 (test code = 1925-7) Patient Temperature 37.5 (test code = 8310-5) FIO2 (test code = 1819) 21 Lab Interpretation Abnormal (test code = 28227-8) [facility] [id number] 13:57:53 Test Item Value Reference Range Interpretation Comments pH, Arterial (test code 7.36 7.35-7.45 = 2744-1) pCO2, Arterial (test 45 See_Comment [Autom ated code = 2019-8) message] The system which generated this result transmitted reference range : 35 - 45 mm Hg. The reference range was not used to interpret this result as normal/abnormal . pO2, Arterial (test 149 See_Comment H [Automa griffin code = 2703-7) message] The system which generated this result transmitted reference range : 80 - 90 mm Hg. The reference range was not used to interpret this result as normal/abnormal . O2 Sat, Arterial (test 98.8 % 96.0-97.0 H code = 2708-6) HCO3, Arterial (test 25 mmol/L 21-29 code = 1960-4) Base Excess, Arterial -0.9 mmol/L -2.0-3.0 (test code = 1925-7) Patient Temperature 37.5 (test code = 8310-5) FIO2 (test code = 1819) 21 Lab Interpretation Abnormal (test code = 61059-1) [facility] [id number] 13:57:53 Test Item Value Reference Range Interpretation Comments pH, Arterial (test code 7.36 7.35-7.45 = 2744-1) pCO2, Arterial (test 45 See_Comment [Autom ated code = 2019-8) message] The system which generated this result transmitted reference range : 35 - 45 mm Hg. The reference range was not used to interpret this result as normal/abnormal . pO2, Arterial (test 149 See_Comment H [Automa griffin code = 2703-7) message] The system which generated this result transmitted reference range : 80 - 90 mm Hg. The reference range was not used to interpret this result as normal/abnormal . O2 Sat, Arterial (test 98.8 % 96.0-97.0 H code = 2708-6) HCO3, Arterial (test 25 mmol/L 21-29 code = 1960-4) Base Excess, Arterial -0.9 mmol/L -2.0-3.0 (test code = 1925-7) Patient Temperature 37.5 (test code = 8310-5) FIO2 (test code = 1819) 21 Lab Interpretation Abnormal (test code = 07602-1) [facility] [id number] 13:57:53 Test Item Value Reference Range Interpretation Comments pH, Arterial (test code 7.36 7.35-7.45 = 2744-1) pCO2, Arterial (test 45 See_Comment [Autom ated code = 2018-11) message] The system which generated this result transmitted reference range : 35 - 45 mm Hg. The reference range was not used to interpret this result as normal/abnormal . pO2, Arterial (test 149 See_Comment H [Automa griffin code = 2703-7) message] The system which generated this result transmitted reference range : 80 - 90 mm Hg. The reference range was not used to interpret this result as normal/abnormal . O2 Sat, Arterial (test 98.8 % 96.0-97.0 H code = 2708-6) HCO3, Arterial (test 25 mmol/L 21-29 code = 1960-4) Base Excess, Arterial -0.9 mmol/L -2.0-3.0 (test code = 1925-7) Patient Temperature 37.5 (test code = 8310-5) FIO2 (test code = 1819) 21 Lab Interpretation Abnormal (test code = 41327-0) [facility] [id number] 13:57:53 Test Item Value Reference Range Interpretation Comments pH, Arterial (test code 7.36 7.35-7.45 = 2744-1) pCO2, Arterial (test 45 See_Comment [Autom ated code = 2018-11) message] The system which generated this result transmitted reference range : 35 - 45 mm Hg. The reference range was not used to interpret this result as normal/abnormal . pO2, Arterial (test 149 See_Comment H [Automa griffin code = 2703-7) message] The system which generated this result transmitted reference range : 80 - 90 mm Hg. The reference range was not used to interpret this result as normal/abnormal . O2 Sat, Arterial (test 98.8 % 96.0-97.0 H code = 2708-6) HCO3, Arterial (test 25 mmol/L 21-29 code = 1960-4) Base Excess, Arterial -0.9 mmol/L -2.0-3.0 (test code = 1925-7) Patient Temperature 37.5 (test code = 8310-5) FIO2 (test code = 1819) 21 Lab Interpretation Abnormal (test code = 94478-9) [facility] [id number] 13:57:53 Test Item Value Reference Range Interpretation Comments pH, Arterial (test code 7.36 7.35-7.45 = 2744-1) pCO2, Arterial (test 45 See_Comment [Autom ated code = 2019-8) message] The system which generated this result transmitted reference range : 35 - 45 mm Hg. The reference range was not used to interpret this result as normal/abnormal . pO2, Arterial (test 149 See_Comment H [Automa griffin code = 2703-7) message] The system which generated this result transmitted reference range : 80 - 90 mm Hg. The reference range was not used to interpret this result as normal/abnormal . O2 Sat, Arterial (test 98.8 % 96.0-97.0 H code = 2708-6) HCO3, Arterial (test 25 mmol/L 21-29 code = 1960-4) Base Excess, Arterial -0.9 mmol/L -2.0-3.0 (test code = 1925-7) Patient Temperature 37.5 (test code = 8310-5) FIO2 (test code = 1819) 21 Lab Interpretation Abnormal (test code = 68788-4) [facility] [id number] 13:57:53 Test Item Value Reference Range Interpretation Comments PH ARTERIAL (BEAKER) (test code = 7.36 7.35-7.45 383) PCO2 ARTERIAL (BEAKER) (test code 45 mm Hg 35-45 = 384) PO2 ARTERIAL (BEAKER) (test code 149 mm Hg 80-90 H = 385) O2 SATURATION ARTERIAL (BEAKER) 98.8 % 96.0-97.0 H (test code = 386) HCO3 ARTERIAL (BEAKER) (test code 25 mmol/L 21-29 = 388) BASE EXCESS ARTERIAL (BEAKER) -0.9 mmol/L -2.0-3.0 (test code = 387) PATIENT TEMPERATURE (BEAKER) 37.5 (test code = 1818) FIO2 (BEAKER) (test code = 1819) 21.0 CBC W/PLT COUNT & AUTO [id number] 13:57:52 Test Item Value Reference Range Interpretation Comments WHITE BLOOD CELL COUNT (BEAKER) 7.3 K/ L 3.5-10.5 (test code = 775) RED BLOOD CELL COUNT (BEAKER) 2.75 M/ L 3.93-5.22 L (test code = 761) HEMOGLOBIN (BEAKER) (test code = 10.0 GM/DL 11.2-15.7 L 410) HEMATOCRIT (BEAKER) (test code = 29.0 % 34.1-44.9 L 411) MEAN CORPUSCULAR VOLUME (BEAKER) 106 fL 79-95 H (test code = 753) MEAN CORPUSCULAR HEMOGLOBIN 36.4 pg 25.6-32.2 H (BEAKER) (test code = 751) MEAN CORPUSCULAR HEMOGLOBIN CONC 34.5 GM/DL 32.2-35.5 (BEAKER) (test code = 752) RED CELL DISTRIBUTION WIDTH 17.4 % 11.7-14.4 H (BEAKER) (test code = 412) PLATELET COUNT (BEAKER) (test 379 K/CU MM 150-450 code = 756) MEAN PLATELET VOLUME (BEAKER) 8.5 fL 9.4-12.3 L (test code = 754) NUCLEATED RED BLOOD CELLS 0 /100 WBC 0-0 (BEAKER) (test code = 413) NEUTROPHILS RELATIVE PERCENT 88 % (BEAKER) (test code = 429) LYMPHOCYTES RELATIVE PERCENT 10 % (BEAKER) (test code = 430) MONOCYTES RELATIVE PERCENT 2 % (BEAKER) (test code = 431) EOSINOPHILS RELATIVE PERCENT 0 % (BEAKER) (test code = 432) BASOPHILS RELATIVE PERCENT 0 % (BEAKER) (test code = 437) NEUTROPHILS ABSOLUTE COUNT 6.41 K/ L 1.56-6.13 H (BEAKER) (test code = 670) LYMPHOCYTES ABSOLUTE COUNT 0.71 K/ L 1.18-3.74 L (BEAKER) (test code = 414) MONOCYTES ABSOLUTE COUNT (BEAKER) 0.13 K/ L 0.24-0.36 L (test code = 415) EOSINOPHILS ABSOLUTE COUNT 0.01 K/ L 0.04-0.36 L (BEAKER) (test code = 416) BASOPHILS ABSOLUTE COUNT (BEAKER) 0.01 K/ L 0.01-0.08 (test code = 417) IMMATURE GRANULOCYTES-RELATIVE 0.40 % 0.00-1.00 PERCENT (BEAKER) (test code = 2801) BLOOD GAS, [id number] 11:15:12 Test Item Value Reference Range Interpretation Comments PH ARTERIAL (BEAKER) (test code = 7.37 7.35-7.45 383) PCO2 ARTERIAL (BEAKER) (test code 43 mm Hg 35-45 = 384) PO2 ARTERIAL (BEAKER) (test code 321 mm Hg 80-90 H = 385) O2 SATURATION ARTERIAL (BEAKER) 99.7 % 96.0-97.0 H (test code = 386) HCO3 ARTERIAL (BEAKER) (test code 25 mmol/L 21-29 = 388) BASE EXCESS ARTERIAL (BEAKER) -1.0 mmol/L -2.0-3.0 (test code = 387) PATIENT TEMPERATURE (BEAKER) 36.0 (test code = 1818) FIO2 (BEAKER) (test code = 1819) 100.0 pH, [id number] 11:11:40 Test Item Value Reference Range Interpretation Comments pH, Arterial (test code = 2744-1) 7.30 7.35-7.45 L Lab Interpretation (test code = Abnormal 55777-9) [facility]2022-11-03 11:11:40 Test Item Value Reference Range Interpretation Comments pH, Arterial (test code = 2744-1) 7.30 7.35-7.45 L Lab Interpretation (test code = Abnormal 62781-1) [facility]2022-11-03 11:11:40 Test Item Value Reference Range Interpretation Comments pH, Arterial (test code = 2744-1) 7.30 7.35-7.45 L Lab Interpretation (test code = Abnormal 56669-0) [facility]2022-11-03 11:11:40 Test Item Value Reference Range Interpretation Comments pH, Arterial (test code = 2744-1) 7.30 7.35-7.45 L Lab Interpretation (test code = Abnormal 71990-0) [facility]2022-11-03 11:11:40 Test Item Value Reference Range Interpretation Comments pH, Arterial (test code = 2744-1) 7.30 7.35-7.45 L Lab Interpretation (test code = Abnormal 82999-1) [facility]2022-11-03 11:11:40 Test Item Value Reference Range Interpretation Comments pH, Arterial (test code = 2744-1) 7.30 7.35-7.45 L Lab Interpretation (test code = Abnormal 54710-8) [facility]2022-11-03 11:11:40 Test Item Value Reference Range Interpretation Comments pH, Arterial (test code = 2744-1) 7.30 7.35-7.45 L Lab Interpretation (test code = Abnormal 19700-5) [facility]2022-11-03 11:11:40 Test Item Value Reference Range Interpretation Comments pH, Arterial (test code = 2744-1) 7.30 7.35-7.45 L Lab Interpretation (test code = Abnormal 25561-5) [facility]2022-11-03 11:11:40 Test Item Value Reference Range Interpretation Comments pH, Arterial (test code = 2744-1) 7.30 7.35-7.45 L Lab Interpretation (test code = Abnormal 26066-6) [facility]2022-11-03 11:11:40 Test Item Value Reference Range Interpretation Comments pH, Arterial (test code = 2744-1) 7.30 7.35-7.45 L Lab Interpretation (test code = Abnormal 54948-2) [facility]2022-11-03 11:11:40 Test Item Value Reference Range Interpretation Comments pH, Arterial (test code = 2744-1) 7.30 7.35-7.45 L Lab Interpretation (test code = Abnormal 59264-3) [facility]2022-11-03 11:11:40 Test Item Value Reference Range Interpretation Comments PH ARTERIAL (BEAKER) (test code = 383) 7.30 7.35-7.45 L HGB/HCT (H&H)-Stat [id number] 11:11:39 Test Item Value Reference Range Interpretation Comments Hemoglobin (test code = 10.8 See_Comment L [Au tomated message] 718-7) The system [employer] generated this result transmitted ref erence range: 12.0 - 1 5.0 GM/DL. The refe rence range was not u sed to interpret this result as normal/abnor mal. Hematocrit (test code = 32.0 % 36.0-45.0 L 4544-3) Lab Interpretation (test Abnormal code = 26988-2) [facility] [id number] 11:11:39 Test Item Value Reference Range Interpretation Comments Hemoglobin (test code = 10.8 See_Comment L [Au tomated message] 718-7) The system [employer] generated this result transmitted ref erence range: 12.0 - 1 5.0 GM/DL. The refe rence range was not u sed to interpret this result as normal/abnor mal. Lab Interpretation (test Abnormal code = 59716-3) [facility] [id number] 11:11:39 Test Item Value Reference Range Interpretation Comments Hemoglobin (test code = 10.8 See_Comment L [Au tomated message] 718-7) The system [employer] generated this result transmitted ref erence range: 12.0 - 1 5.0 GM/DL. The refe rence range was not u sed to interpret this result as normal/abnor mal. Hematocrit (test code = 32.0 % 36.0-45.0 L 4544-3) Lab Interpretation (test Abnormal code = 92801-2) [facility] [id number] 11:11:39 Test Item Value Reference Range Interpretation Comments Hemoglobin (test code = 10.8 See_Comment L [Au tomated message] 718-7) The system [employer] generated this result transmitted ref erence range: 12.0 - 1 5.0 GM/DL. The refe rence range was not u sed to interpret this result as normal/abnor mal. Lab Interpretation (test Abnormal code = 12809-4) [facility] [id number] 11:11:39 Test Item Value Reference Range Interpretation Comments Hemoglobin (test code = 10.8 See_Comment L [Au tomated message] 718-7) The system [employer] generated this result transmitted ref erence range: 12.0 - 1 5.0 GM/DL. The refe rence range was not u sed to interpret this result as normal/abnor mal. Hematocrit (test code = 32.0 % 36.0-45.0 L 4544-3) Lab Interpretation (test Abnormal code = 50487-1) [facility] [id number] 11:11:39 Test Item Value Reference Range Interpretation Comments Hemoglobin (test code = 10.8 See_Comment L [Au tomated message] 718-7) The system [employer] generated this result transmitted ref erence range: 12.0 - 1 5.0 GM/DL. The refe rence range was not u sed to interpret this result as normal/abnor mal. Lab Interpretation (test Abnormal code = 95035-1) [facility] [id number] 11:11:39 Test Item Value Reference Range Interpretation Comments Hemoglobin (test code = 10.8 See_Comment L [Au Simple Crossingated message] 718-7) The system [employer] generated this result transmitted ref erence range: 12.0 - 1 5.0 GM/DL. The refe rence range was not u sed to interpret this result as normal/abnor mal. Hematocrit (test code = 32.0 % 36.0-45.0 L 4544-3) Lab Interpretation (test Abnormal code = 74159-8) [facility] [id number] 11:11:39 Test Item Value Reference Range Interpretation Comments Hemoglobin (test code = 10.8 See_Comment L [Au Simple Crossingated message] 718-7) The system [employer] generated this result transmitted ref erence range: 12.0 - 1 5.0 GM/DL. The refe rence range was not u sed to interpret this result as normal/abnor mal. Lab Interpretation (test Abnormal code = 69220-7) [facility] [id number] 11:11:39 Test Item Value Reference Range Interpretation Comments Hemoglobin (test code = 10.8 See_Comment L [Au tomated message] 718-7) The system [employer] generated this result transmitted ref erence range: 12.0 - 1 5.0 GM/DL. The refe rence range was not u sed to interpret this result as normal/abnor mal. Hematocrit (test code = 32.0 % 36.0-45.0 L 4544-3) Lab Interpretation (test Abnormal code = 96380-8) [facility] [id number] 11:11:39 Test Item Value Reference Range Interpretation Comments Hemoglobin (test code = 10.8 See_Comment L [Au tomated message] 718-7) The system [employer] generated this result transmitted ref erence range: 12.0 - 1 5.0 GM/DL. The refe rence range was not u sed to interpret this result as normal/abnor mal. Lab Interpretation (test Abnormal code = 34950-9) [facility] [id number] 11:11:39 Test Item Value Reference Range Interpretation Comments Hemoglobin (test code = 10.8 See_Comment L [Au tomated message] 718-7) The system [employer] generated this result transmitted ref erence range: 12.0 - 1 5.0 GM/DL. The refe rence range was not u sed to interpret this result as normal/abnor mal. Hematocrit (test code = 32.0 % 36.0-45.0 L 4544-3) Lab Interpretation (test Abnormal code = 21294-3) [facility] [id number] 11:11:39 Test Item Value Reference Range Interpretation Comments Hemoglobin (test code = 10.8 See_Comment L [Au tomated message] 718-7) The system [employer] generated this result transmitted ref erence range: 12.0 - 1 5.0 GM/DL. The refe rence range was not u sed to interpret this result as normal/abnor mal. Lab Interpretation (test Abnormal code = 66758-8) [facility] [id number] 11:11:39 Test Item Value Reference Range Interpretation Comments Hemoglobin (test code = 10.8 See_Comment L [Au tomated message] 718-7) The system [employer] generated this result transmitted ref erence range: 12.0 - 1 5.0 GM/DL. The refe rence range was not u sed to interpret this result as normal/abnor mal. Hematocrit (test code = 32.0 % 36.0-45.0 L 4544-3) Lab Interpretation (test Abnormal code = 64140-2) [facility] [id number] 11:11:39 Test Item Value Reference Range Interpretation Comments Hemoglobin (test code = 10.8 See_Comment L [Au tomated message] 718-7) The system [employer] generated this result transmitted ref erence range: 12.0 - 1 5.0 GM/DL. The refe rence range was not u sed to interpret this result as normal/abnor mal. Lab Interpretation (test Abnormal code = 06415-0) [facility] [id number] 11:11:39 Test Item Value Reference Range Interpretation Comments Hemoglobin (test code = 10.8 See_Comment L [Au Simple Crossingated message] 718-7) The system [employer] generated this result transmitted ref erence range: 12.0 - 1 5.0 GM/DL. The refe rence range was not u sed to interpret this result as normal/abnor mal. Hematocrit (test code = 32.0 % 36.0-45.0 L 4544-3) Lab Interpretation (test Abnormal code = 63876-1) [facility] [id number] 11:11:39 Test Item Value Reference Range Interpretation Comments Hemoglobin (test code = 10.8 See_Comment L [Au Simple Crossingated message] 718-7) The system [employer] generated this result transmitted ref erence range: 12.0 - 1 5.0 GM/DL. The refe rence range was not u sed to interpret this result as normal/abnor mal. Lab Interpretation (test Abnormal code = 38340-3) [facility] [id number] 11:11:39 Test Item Value Reference Range Interpretation Comments Hemoglobin (test code = 10.8 See_Comment L [Au tomated message] 718-7) The system [employer] generated this result transmitted ref erence range: 12.0 - 1 5.0 GM/DL. The refe rence range was not u sed to interpret this result as normal/abnor mal. Hematocrit (test code = 32.0 % 36.0-45.0 L 4544-3) Lab Interpretation (test Abnormal code = 85948-7) [facility] [id number] 11:11:39 Test Item Value Reference Range Interpretation Comments Hemoglobin (test code = 10.8 See_Comment L [Au tomated message] 718-7) The system [employer] generated this result transmitted ref erence range: 12.0 - 1 5.0 GM/DL. The refe rence range was not u sed to interpret this result as normal/abnor mal. Lab Interpretation (test Abnormal code = 70205-4) [facility] [id number] 11:11:39 Test Item Value Reference Range Interpretation Comments Hemoglobin (test code = 10.8 See_Comment L [Au tomated message] 718-7) The system [employer] generated this result transmitted ref erence range: 12.0 - 1 5.0 GM/DL. The refe rence range was not u sed to interpret this result as normal/abnor mal. Hematocrit (test code = 32.0 % 36.0-45.0 L 4544-3) Lab Interpretation (test Abnormal code = 92511-0) [facility] [id number] 11:11:39 Test Item Value Reference Range Interpretation Comments Hemoglobin (test code = 10.8 See_Comment L [Au tomated message] 718-7) The system [employer] generated this result transmitted ref erence range: 12.0 - 1 5.0 GM/DL. The refe rence range was not u sed to interpret this result as normal/abnor mal. Lab Interpretation (test Abnormal code = 95685-8) [facility] [id number] 11:11:39 Test Item Value Reference Range Interpretation Comments Hemoglobin (test code = 10.8 See_Comment L [Au tomated message] 718-7) The system [employer] generated this result transmitted ref erence range: 12.0 - 1 5.0 GM/DL. The refe rence range was not u sed to interpret this result as normal/abnor mal. Hematocrit (test code = 32.0 % 36.0-45.0 L 4544-3) Lab Interpretation (test Abnormal code = 40972-7) [facility] [id number] 11:11:39 Test Item Value Reference Range Interpretation Comments Hemoglobin (test code = 10.8 See_Comment L [Au tomated message] 718-7) The system [employer] generated this result transmitted ref erence range: 12.0 - 1 5.0 GM/DL. The refe rence range was not u sed to interpret this result as normal/abnor mal. Lab Interpretation (test Abnormal code = 13124-8) [facility] [id number] 11:11:39 Test Item Value Reference Range Interpretation Comments HEMOGLOBIN (BEAKER) (test code = 10.8 GM/DL 12.0-15.0 L 410) HEMATOCRIT (BEAKER) (test code = 32.0 % 36.0-45.0 L 411) HEMOGLOBIN-STAT [id number] 11:11:39 Test Item Value Reference Range Interpretation Comments HEMOGLOBIN (BEAKER) (test code = 10.8 GM/DL 12.0-15.0 L 410) BLOOD GAS, [id number] 11:11:28 Test Item Value Reference Range Interpretation Comments PH ARTERIAL (BEAKER) (test code = 7.30 7.35-7.45 L 383) PCO2 ARTERIAL (BEAKER) (test code 52 mm Hg 35-45 H = 384) PO2 ARTERIAL (BEAKER) (test code 275 mm Hg 80-90 H = 385) O2 SATURATION ARTERIAL (BEAKER) 99.6 % 96.0-97.0 H (test code = 386) HCO3 ARTERIAL (BEAKER) (test code 25 mmol/L 21-29 = 388) BASE EXCESS ARTERIAL (BEAKER) -1.6 mmol/L -2.0-3.0 (test code = 387) PATIENT TEMPERATURE (BEAKER) 37.0 (test code = 1818) FIO2 (BEAKER) (test code = 1819) 21.0 Sodium Na-Stat [id number] 11:11:23 Test Item Value Reference Range Interpretation Comments Sodium (test code = 2951-2) 136 meq/L 136-145 Lab Interpretation (test code = Normal 56443-1) [facility] [id number] 11:11:23 Test Item Value Reference Range Interpretation Comments Potassium (test code = 2823-3) 3.5 meq/L 3.6-5.5 L Lab Interpretation (test code = Abnormal 75405-6) [facility] [id number] 11:11:23 Test Item Value Reference Range Interpretation Comments Sodium (test code = 2951-2) 136 meq/L 136-145 Lab Interpretation (test code = Normal 37554-7) [facility] [id number] 11:11:23 Test Item Value Reference Range Interpretation Comments Potassium (test code = 2823-3) 3.5 meq/L 3.6-5.5 L Lab Interpretation (test code = Abnormal 10808-7) [facility] [id number] 11:11:23 Test Item Value Reference Range Interpretation Comments Sodium (test code = 2951-2) 136 meq/L 136-145 Lab Interpretation (test code = Normal 80412-7) [facility] [id number] 11:11:23 Test Item Value Reference Range Interpretation Comments Potassium (test code = 2823-3) 3.5 meq/L 3.6-5.5 L Lab Interpretation (test code = Abnormal 93400-0) [facility] [id number] 11:11:23 Test Item Value Reference Range Interpretation Comments Sodium (test code = 2951-2) 136 meq/L 136-145 Lab Interpretation (test code = Normal 18162-2) [facility] [id number] 11:11:23 Test Item Value Reference Range Interpretation Comments Potassium (test code = 2823-3) 3.5 meq/L 3.6-5.5 L Lab Interpretation (test code = Abnormal 94705-9) [facility] Na-Stat [id number] 11:11:23 Test Item Value Reference Range Interpretation Comments Sodium (test code = 2951-2) 136 meq/L 136-145 Lab Interpretation (test code = Normal 10261-3) [facility] [id number] 11:11:23 Test Item Value Reference Range Interpretation Comments Potassium (test code = 2823-3) 3.5 meq/L 3.6-5.5 L Lab Interpretation (test code = Abnormal 41715-4) [facility] Na-Stat [id number] 11:11:23 Test Item Value Reference Range Interpretation Comments Sodium (test code = 2951-2) 136 meq/L 136-145 Lab Interpretation (test code = Normal 63685-8) [facility] [id number] 11:11:23 Test Item Value Reference Range Interpretation Comments Potassium (test code = 2823-3) 3.5 meq/L 3.6-5.5 L Lab Interpretation (test code = Abnormal 80239-3) [facility] Na-Stat [id number] 11:11:23 Test Item Value Reference Range Interpretation Comments Sodium (test code = 2951-2) 136 meq/L 136-145 Lab Interpretation (test code = Normal 12062-1) [facility] [id number] 11:11:23 Test Item Value Reference Range Interpretation Comments Potassium (test code = 2823-3) 3.5 meq/L 3.6-5.5 L Lab Interpretation (test code = Abnormal 19466-3) [facility] Na-Stat [id number] 11:11:23 Test Item Value Reference Range Interpretation Comments Sodium (test code = 2951-2) 136 meq/L 136-145 Lab Interpretation (test code = Normal 65636-0) [facility] [id number] 11:11:23 Test Item Value Reference Range Interpretation Comments Potassium (test code = 2823-3) 3.5 meq/L 3.6-5.5 L Lab Interpretation (test code = Abnormal 33984-7) [facility] [id number] 11:11:23 Test Item Value Reference Range Interpretation Comments Sodium (test code = 2951-2) 136 meq/L 136-145 Lab Interpretation (test code = Normal 06561-7) [facility] [id number] 11:11:23 Test Item Value Reference Range Interpretation Comments Potassium (test code = 2823-3) 3.5 meq/L 3.6-5.5 L Lab Interpretation (test code = Abnormal 55730-5) [facility] [id number] 11:11:23 Test Item Value Reference Range Interpretation Comments Sodium (test code = 2951-2) 136 meq/L 136-145 Lab Interpretation (test code = Normal 56079-1) [facility] [id number] 11:11:23 Test Item Value Reference Range Interpretation Comments Potassium (test code = 2823-3) 3.5 meq/L 3.6-5.5 L Lab Interpretation (test code = Abnormal 83805-9) [facility] [id number] 11:11:23 Test Item Value Reference Range Interpretation Comments Sodium (test code = 2951-2) 136 meq/L 136-145 Lab Interpretation (test code = Normal 75215-7) [facility] [id number] 11:11:23 Test Item Value Reference Range Interpretation Comments Potassium (test code = 2823-3) 3.5 meq/L 3.6-5.5 L Lab Interpretation (test code = Abnormal 28284-4) [facility] [id number] 11:11:23 Test Item Value Reference Range Interpretation Comments SODIUM (BEAKER) (test code = 381) 136 meq/L 136-145 POTASSIUM-STAT [id number] 11:11:23 Test Item Value Reference Range Interpretation Comments POTASSIUM (BEAKER) (test code = 3.5 meq/L 3.6-5.5 L 379) Glucose-Stat [id number] 11:11:22 Test Item Value Reference Range Interpretation Comments Glucose (test code = 2345-7) 144 mg/dL 70-110 H Lab Interpretation (test code = Abnormal 95213-2) [facility] [id number] 11:11:22 Test Item Value Reference Range Interpretation Comments Glucose (test code = 2345-7) 144 mg/dL 70-110 H Lab Interpretation (test code = Abnormal 48039-9) [facility] [id number] 11:11:22 Test Item Value Reference Range Interpretation Comments Glucose (test code = 2345-7) 144 mg/dL 70-110 H Lab Interpretation (test code = Abnormal 39164-4) [facility] [id number] 11:11:22 Test Item Value Reference Range Interpretation Comments Glucose (test code = 2345-7) 144 mg/dL 70-110 H Lab Interpretation (test code = Abnormal 57472-0) [facility] [id number] 11:11:22 Test Item Value Reference Range Interpretation Comments Glucose (test code = 2345-7) 144 mg/dL 70-110 H Lab Interpretation (test code = Abnormal 41534-5) [facility] [id number] 11:11:22 Test Item Value Reference Range Interpretation Comments Glucose (test code = 2345-7) 144 mg/dL 70-110 H Lab Interpretation (test code = Abnormal 96381-2) [facility] [id number] 11:11:22 Test Item Value Reference Range Interpretation Comments Glucose (test code = 2345-7) 144 mg/dL 70-110 H Lab Interpretation (test code = Abnormal 60161-0) [facility] [id number] 11:11:22 Test Item Value Reference Range Interpretation Comments Glucose (test code = 2345-7) 144 mg/dL 70-110 H Lab Interpretation (test code = Abnormal 06086-1) [facility] [id number] 11:11:22 Test Item Value Reference Range Interpretation Comments Glucose (test code = 2345-7) 144 mg/dL 70-110 H Lab Interpretation (test code = Abnormal 56471-4) [facility] [id number] 11:11:22 Test Item Value Reference Range Interpretation Comments Glucose (test code = 2345-7) 144 mg/dL 70-110 H Lab Interpretation (test code = Abnormal 15756-3) [facility] [id number] 11:11:22 Test Item Value Reference Range Interpretation Comments Glucose (test code = 2345-7) 144 mg/dL 70-110 H Lab Interpretation (test code = Abnormal 73420-8) [facility] [id number] 11:11:22 Test Item Value Reference Range Interpretation Comments GLUCOSE RANDOM (BEAKER) (test code 144 mg/dL 70-110 H = 652) [id number] 10:09:56 Test Item Value Reference Range Interpretation Comments ACTIVATED CLOTTING TIME 283 sec : 74 -137 seconds, (BEAKER) (test code = Baseli ne: TESTED AT 441) [facility] [address] [facility], [address]: Pl Sql Programmer/Techni bismark ID = [id number] for ALEXANDRA MONTALVO BLOOD GAS, [id number] 09:49:50 Test Item Value Reference Range Interpretation Comments PH ARTERIAL (BEAKER) (test code = 7.32 7.35-7.45 L 383) PCO2 ARTERIAL (BEAKER) (test code 47 mm Hg 35-45 H = 384) PO2 ARTERIAL (BEAKER) (test code 115 mm Hg 80-90 H = 385) O2 SATURATION ARTERIAL (BEAKER) 97.9 % 96.0-97.0 H (test code = 386) HCO3 ARTERIAL (BEAKER) (test code 23 mmol/L 21-29 = 388) BASE EXCESS ARTERIAL (BEAKER) -3.0 mmol/L -2.0-3.0 L (test code = 387) PATIENT TEMPERATURE (BEAKER) 37.0 (test code = 1818) FIO2 (BEAKER) (test code = 1819) 21.0 BASIC METABOLIC [id number] 09:07:38 Test Item Value Reference Range Interpretation Comments SODIUM (BEAKER) 131 meq/L 136-145 L (test code = 381) POTASSIUM 4.3 meq/L 3.5-5.1 Specimen slight ly (BEAKER) (test hemolyzed code = 379) CHLORIDE (BEAKER) 101 meq/L 98-107 (test code = 382) CO2 (BEAKER) 24 meq/L 22-29 (test code = 355) BLOOD UREA 9 mg/dL 7-21 NITROGEN (BEAKER) (test code = 354) CREATININE 0.71 mg/dL 0.57-1.25 Specimen slight ly (BEAKER) (test hemolyzed code = 358) GLUCOSE RANDOM 92 mg/dL 70-105 (BEAKER) (test code = 652) CALCIUM (BEAKER) 8.9 mg/dL 8.4-10.2 (test code = 697) EGFR (BEAKER) 96 Interpretatio n of eGFR (test code = [...] not as accur ate as Creatinine Carmen vera in predicting glom erular filtration rate . Estimated GFR is not appl icable for dialysis patien ts Pl Sql Programmer ID - QUIN MPT/[id number] 07:00:41 Test Item Value Reference Range Interpretation Comments PROTIME (BEAKER) (test 13.1 seconds 11.9-14.2 code = 759) INR (BEAKER) (test 1.01 See_Comment [Automat ed code = 370) message] The [employer] stem which generated this result transmitted reference range : <=5.90. The reference range was not used to interpret this result as normal/abnormal . PARTIAL THROMBOPLASTIN 31.3 seconds 22.5-36.0 TIME (BEAKER) (test code = 760) RECOMMENDED COUMADIN/WARFARIN INR THERAPY RANGESSTANDARD DOSE: 2.0 - 3.0 Includes: PROPHYLAXIS for venous thrombosis, systemic embolization; TREATMENT for venous thrombosis and/or pulmonary embolus.HIGH RISK: Target INR is 2.5-3.5 for patients with mechanical heart valves.CBC (HEMOGRAM ONLY)2022-02-03 06:41:35 Test Item Value Reference Range Interpretation Comments WHITE BLOOD CELL COUNT (BEAKER) 6.7 K/ L 3.5-10.5 (test code = 775) RED BLOOD CELL COUNT (BEAKER) 3.22 M/ L 3.93-5.22 L (test code = 761) HEMOGLOBIN (BEAKER) (test code = 11.7 GM/DL 11.2-15.7 410) HEMATOCRIT (BEAKER) (test code = 34.5 % 34.1-44.9 411) MEAN CORPUSCULAR VOLUME (BEAKER) 107 fL 79-95 H (test code = 753) MEAN CORPUSCULAR HEMOGLOBIN 36.3 pg 25.6-32.2 H (BEAKER) (test code = 751) MEAN CORPUSCULAR HEMOGLOBIN CONC 33.9 GM/DL 32.2-35.5 (BEAKER) (test code = 752) RED CELL DISTRIBUTION WIDTH 17.6 % 11.7-14.4 H (BEAKER) (test code = 412) PLATELET COUNT (BEAKER) (test 459 K/CU MM 150-450 H code = 756) MEAN PLATELET VOLUME (BEAKER) 8.9 fL 9.4-12.3 L (test code = 754) NUCLEATED RED BLOOD CELLS 0 /100 WBC 0-0 (BEAKER) (test code = 413) CT, [id number] 15:45:00Unlisted Reason for Exam - Click Yes and Enter Reason Below->YesUnlisted Reason for Exam->Cancer of right kidneyIs this for enterography?->NoWill this procedure require oral contrast?->No [facility] 1960 Sex: FFINAL[address]PORT CT of the chest, abdomen and pelvis, with contrast Clinical History: Unlisted Reason for ExamCancer of right kidney Technique: CT of the chest, abdomen and pelvis is performed with intravenous contrast administration. This exam was performed according to our departmental dose optimization program which includes automated exposure control, adjustment of the mA and/or kV acco rding to patient's size and/or use of iterative [...] the right hepatic dome is unchanged, probably relatedto perfusion anomaly/vascular shunt. No new liver mass is identified. No biliary ductal dilatation. Gallbladder is absent. The spleen, pancreas, are unremarkable. A right adrenal mass has significantlydecreased in size, now measuring 1.9 x 1.3 [...] are a few scattered colonic diverticuli. In thepelvis, bladder is normal. Uterus is absent. No adnexal mass. No ascites, or lymphadenopathy. Bony structures demonstrate degenerative changes, and decreased bony mineralization. [id number] and sclerotic, expansile lesion in the posterior right sixth rib. Impression: Right renal mass has decreased in size and degree of enhancement, compatible with treatment response. 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 No new disease identified in the thorax. Advanced pulmonary emphysema. Stable appearance of right sixth rib lesion compatible with metastasis. Signed: Maksim Pires MDReport Verified Date/Time: 2021 15:45:10 Reading Location: [address] Ortho Consult Reading Room CT, CHEST, WITH IV [id number] 15:45:00Unlisted Reason for Exam - Click Yes and Enter Reason Below->YesUnlisted Reason for Exam->Cancer of right kidney [facility] : 1960 Sex: FFINAL REPORT CT of the chest, abdomen and pelvis, with contrast Clinical History: Unlisted Reason for ExamCancer of right kidney Technique: CT of the chest, abdomen and pelvis is performed with intravenous contrast administration. This exam was performed according to our departmental dose optimization program which includes automated exposure control, adjustment of the mA and/or kV accor ding to patient's size and/or use of iterative [...] cm. A 1 cm left adrenal nodule isalso smaller, and measures 7 mm. Both appear [...] demonstrate degenerative changes, and decreased bony mineralization. Ehsbqy2Xovdi and sclerotic, expansile lesion in the posterior right sixth rib. Impression: Right renal mass has decreased insize and degree of enhancement, compatible with treatment response. Bilateral adrenal metastasis arealso smaller, and appears partially necrotic. No new disease identified in the thorax. Advanced pulmonary emphysema. Stable appearance of right sixth rib lesion compatible with metastasis. Signed: Maksim Pires Verified Date/Time: 2021 15:45:10 Reading Location: [facility] B1 [id number] Ortho Consult Reading Room Transesophageal [id number] 13:13:48Ejection FractionSLEH ECHO HEARTLAB [facility] 2021-12-14 13:13:48Ejection FractionSLEH ECHO HEARTLAB MKCK[facility]ON [facility] [id number] 13:13:48Ejection FractionSLEH ECHO HEARTLAB MKCK[facility]ON [facility] 2021-12-14 13:13:48Ejection FractionSLEH ECHO HEARTLAB MKESSLos [facility] CenterTrans[facility] [id number] 13:13:48Ejection FractionSLEH ECHO HEARTLAB MKCKESSON [facility] 2021-12-14 13:13:48Ejection FractionSLEH ECHO HEARTLAB KETURAH [facility] [id number] 13:13:48Ejection FractionSLEH ECHO HEARTLAB [facility] 2021-12-14 13:13:48Ejection FractionSLEH ECHO HEARTLAB VIRAESSON [facility] [id number] 13:13:48Ejection FractionSLEH ECHO HEARTLAB [facility] 2021-12-14 13:13:48Ejection FractionSLEH ECHO HEARTLAB [facility] [id number] 13:13:48Ejection FractionSLEH ECHO HEARTLAB [facility] 2021-12-14 13:13:48Ejection FractionSLEH ECHO HEARTLAB [facility] [id number] 13:13:48Ejection FractionSLEH ECHO HEARTLAB [facility]ESSON [facility] doppler arms [id number] 11:04:14Ejection FractionSLEH ECHO HEARTLAB [facility] [id number] 11:04:14 Ejection FractionSLEH ECHO HEARTLAB VIRAESSON [facility] Venous doppler arms [id number] 11:04:14Ejection FractionSLEH ECHO HEARTLAB VIRAESSARLEEN [facility] bilateral 2021-12-14 11:04:14Ejection FractionSLEH ECHO HEARTLAB [facility]ON [facility] arms [id number] 11:04:14Ejection FractionSLEH ECHO HEARTLAB MKKATIESSON [facility] do[facility] arms luywtmbqs2507-04-20 11:04:14Ejection FractionSLEH ECHO HEARTLAB MKKATIESSON [facility] arms bilateral 2021-12-14 11:04:14Ejection FractionSLEH ECHO HEARTLAB MKCKESSON [facility] do[facility] arms [id number] 11:04:14Ejection FractionSLEH ECHO HEARTLAB MKCK[facility]ON [facility] do[facility] arms [id number] 11:04:14Ejection FractionSLEH ECHO HEARTLAB [facility] arms bilateral 2021-12-14 11:04:14Ejection FractionSLEH ECHO HEARTLAB [facility] do[facility] arms [id number] 11:04:14Ejection FractionSLEH ECHO HEARTLAB [facility]CK[facility]ON [facility] do[facility] arms [id number] 11:04:14Ejection FractionSLEH ECHO HEARTLAB MKCK[facility]ON [facility] do[facility] arms bilateral 2021-12-14 11:04:14Ejection FractionSLEH ECHO HEARTLAB MKCKESSON [facility]inoCARDIOLIPIN ANTIBODIES, IGG AND [id number] 11:27:09 Test Item Value Reference Range Interpretation Comments ANTICARDIOLIPIN IGG ANTIBODY (BEAKER) < GPL <20.0 (test code = 712) ANTICARDIOLIPIN IGM ANTIBODY (BEAKER) < MPL <20.0 (test code = 713) Anticardiolipin IgG Result Interpretation: <20.0 GPL Normal>/= 20.0 GPL PositiveAnticardiolipin IgM Result Interpretation: <20.0 MPL Normal>/= 20.0 MPL PositiveANTITHROMBIN [id number] 14:22:39 Test Item Value Reference Range Interpretation Comments ANTITHROMBIN III ACTIVITY (BEAKER) 117.0 % 80.0-120.0 (test code = 711) PROTEIN C [id number] 14:22:38 Test Item Value Reference Range Interpretation Comments PROTEIN C ACTIVITY (BEAKER) (test 154.0 % 70.0-130.0 H code = 582) [id number] 13:01:24 Test Item Value Reference Range Interpretation Comments PARTIAL THROMBOPLASTIN TIME 33.1 seconds 22.5-36.0 (BEAKER) (test code = 760) PROTHROMBIN TIME/[id number] 13:00:45 Test Item Value Reference Range Interpretation Comments PROTIME (BEAKER) 13.1 seconds 11.9-14.2 (test code = 759) INR (BEAKER) (test 1.01 See_Comment [Automat ed message] code = 370) The system [employer] generated this result transmitted ref erence range: <=5.90. The reference range was not used to int erpret this result as normal/abnormal . RECOMMENDED COUMADIN/WARFARIN INR THERAPY RANGESSTANDARD DOSE: 2.0 - 3.0 Includes: PROPHYLAXIS for venous thrombosis, systemic embolization; TREATMENT for venous thrombosis and/or pulmonary embolus.HIGH RISK: Target INR is 2.5-3.5 for patients with mechanical heart valves.[id number] 12:50:01 Test Item Value Reference Range Interpretation Comments HOMOCYSTEINE (BEAKER) (test code = 6.7 umol/L 5.1-15.4 642) Pl Sql Programmer ID - PIAYA LBASIC METABOLIC [id number] 12:32:58 Test Item Value Reference Range Interpretation [...] (test code = 697) EGFR (BEAKER) 100 Interpretati on of eGFR (test code = mL/min/1.73 values [...] not appl icable for dialysis patien ts Pl Sql Programmer ID - PIAYA LCBC W/PLT COUNT & AUTO [id number] 12:09:49 Test Item Value Reference Range Interpretation [...] (BEAKER) (test code = 2801) COMPREHENSIVE METABOLIC [id number] 15:23:32 Test Item Value Reference Range Interpretation Comments GLUCOSE (test code = See_Comment [Autom ated message] 2345-7) The system [employer] generated this result transmitted ref erence range: [...] See_Comment [Au tomated message] 2160-0) The system [employer] generated this result transmitted ref erence range: 0.6 - 1. 3 MG/DL. The refe rence range was not u sed to interpret this result as normal/abnor mal. EGFR (test code = See_Comment [Automate d message] 72856-2) The system [employer] generated this result transmitted ref erence range: >60 ML/MIN/1.73. Th e reference range was not used to int erpret this result as normal/abnormal . BUN/CREAT RATIO (test See_Comment [Auto mated message] code = 3097-3) The system [facility] generated this result transmitted ref erence range: [...] See_Comment [Aut omated message] 2823-3) The system [employer] generated this result transmitted ref erence range: 3.5 - 5. 4 MEQ/L. The refe rence range was not u sed to interpret this result as normal/abnor mal. CHLORIDE (test code = See_Comment L [Auto mated message] 1825-0) The system [facility] generated this result transmitted ref erence range: 100 - 11 2 MEQ/L. The refe rence range was not u sed to interpret this result as normal/abnor mal. CO2 (test code = See_Comment [Automated message] 1963-8) The system [employer] generated this result transmitted ref erence range: 21 - 30 MEQ/L. The reference r edu was not used to interpret this result as normal/abnor mal. CALCIUM (test code = See_Comment [Autom ated message] 23876-7) The system [employer] generated this result transmitted ref erence range: 8.5 - 10 .5 MG/DL. The refe rence range was not u sed to interpret this result as normal/abnor mal. PROTEIN TOTAL (test See_Comment [Automa griffin message] code = 2885-2) The system [facility] generated this result transmitted ref erence range: 6.1 - 8. 1 G/DL. The reference r edu was not used to interpret this result as normal/abnor mal. ALBUMIN (test code = See_Comment [Autom ated message] 70740-4) The system [employer] generated this result transmitted ref erence range: 3.4 - 4. 8 G/DL. The reference r edu was not used to interpret this result as normal/abnor mal. GLOBULINS, SERUM, TOTAL See_Comment [Au tomated message] (test code = 73689-4) The sy stem which generated this result transmitted ref erence range: 1.9 - 3. 7 G/DL. The reference r edu was not used to interpret this result as normal/abnor mal. A/G RATIO (test code = See_Comment [Aut omated message] 3069-0) The system [employer] [facility] generated this result transmitted ref erence range: 1.0 - 2. 6 RATIO. The refe rence range was not u sed to interpret this result as normal/abnor mal. BILIRUBIN TOTAL (test See_Comment [Auto mated message] code = 1974-) The system ich generated this result transmitted ref erence range: <=1.2 MG /DL. The reference r edu was not used to interpret this result as normal/abnor mal. ALKALINE PHOSPHATASE 90 U/L 30-132 (test code = 6768-6) AST (SGOT) (test code = 47 U/L 7-56 1920-8) ALT (SGPT) (test code = 63 U/L 3-47 H DURAN TING PERFORMED AT 1744-2) [facility] PATHOL [facility], [place]. [address] [facility] D, VANESSA [address] [place] [address] CLIA NO. [id number] Unle ss Otherwise Indic ated, All Testing Per formed At: [facility] thology [facility], [address] [place] [address] Laborator y Director: Connor Nicole M.D. CLIA Number [id number] Cap Accreditation [place] o. [id number] Lab Interpretation Abnormal (test code = 63812-3) [facility] [id number] 15:16:00 Test Item Value Reference Range Interpretation Comments MAGNESIUM (test code = See_[place] [address]-1) [facility], [place]. [address] [facility] [address] [place], [place] [address] CLIA NO. [id number] Unl ess Otherwise Indic ated, All Testing Perform ed At: [facility] Pathcox southNjini [facility], [address] [place] [address] Laboratory Dire ctor: Teresa Maldonado CLIA Number [id number] Cap Accreditation [place] o. [id number] [Automated mess age] The system which ge nerated this result tra nsmitted reference range : 1.6 - 2.6 MG/DL. The refe rence range was not used to interpret this result as normal/abnormal . [facility] CenterCB W/AUTO DIFF WITH [id number] 14:39:51 Test Item Value Reference Range Interpretation Comments WHITE BLOOD CELL COUNT See_Comment [Aut omated message] (test code = 43020-2) The sy stem which generated this result transmitted ref erence range: 3.5 - 11 .0 K/UL. The refer ence range was not u sed to interpret this result as normal/abnor mal. RED BLOOD CELL COUNT See_Comment [Autom ated message] (test code = 31266-5) The sy stem which generated this result [...] (test code = 45.5 % 34-45 H 03431-6) MEAN CORPUSCULAR VOLUME 94.0 fL 80-99 (test code = 17192-5) MEAN CORPUSCULAR 34.1 PG 25-33 H HEMOGLOBIN (test code = 28809-1) MEAN CORPUSCULAR See_Comment H [Automated message] HEMOGLOBIN CONC (test The sy stem which code = 36543-1) generated th is result transmitted ref erence range: 31.0 - 3 6.0 G/DL. The refer ence range was not u sed to interpret this result as normal/abnor mal. RED CELL DISTRIBUTION 14.9 % 11.5-15 WIDTH (test code = 48255-3) NEUTROPHILS % (test code 58 % = 67338-0) LYMPHOCYTES % (test code 32 % = 35082-2) MONOCYTES % (test code = 6 % 94279-3) EOSINOPHILS % (test code 4 % = 20032-8) BASOPHILS % (test code = 0 % 06277-7) PLATELET COUNT (test See_Comment TESTIN G PERFORMED AT code = 30941-6) [facility], [place]. [address] D, [address] [place] [address] CLIA NO. [id number] [Aut omated message] The sy stem which generated this result transmit griffin reference range : 130 - 400 K/UL. The reference range was not used to int erpret this result as normal/abnormal . NEUTROPHILS ABSOLUTE See_Comment [Autom ated message] COUNT (test code = The syste m which 70551-9) generated this result transmitted ref erence range: 1.50 - 7 .50 K/UL. The refer ence range was not u sed to interpret this result as normal/abnor mal. LYMPHOCYTES ABSOLUTE See_Comment [Autom ated message] COUNT (test code = The syste m which 69683-5) generated this result transmitted ref erence range: 1.00 - 4 .00 K/UL. The refer ence range was not u sed to interpret this result as normal/abnor mal. MONOCYTES ABSOLUTE COUNT See_Comment [A utomated message] (test code = 56419-5) The sy stem which generated this result transmitted ref erence range: 0.20 - 1 .00 K/UL. The refer ence range was not u sed to interpret this result as normal/abnor mal. BASOPHILS ABSOLUTE COUNT See_Comment Un less Otherwise (test code = 95883-8) Indica griffin, All Testing Perform ed At: [facility], [address] [place] [address] Laborator y Director: Connor Nicole M.D. CLIA Number [id number] 03 Cap Accreditation [place] o. [id number] [Autom ated message] The sy stem which generated this result transmit griffin reference range : 0.00 - 0.20 K/UL. Th e reference range was not used to int erpret this result as normal/abnormal . Lab Interpretation (test Abnormal code = 86404-2) [facility] CenterMR, EXTREMITY, LOWER, JOINT, WITHOUT / WITH IV CONTRAST, [id number] 13:33:00Persistent pain, h/o metastatic RCCPersistent pain, h/o metastatic RCCUnlisted Reason for Exam - Click Yes and Enter Reason Below->YesUnlisted Reason for Exam->Hip pain, acute, right; Cancer of ri ght kidney (HCCode) (HCC) [facility] 1960 Sex: FFINAL [...] MDReport Verified Date/Time: 11/12/2021 13:33:30 Reading Location: [facility] Reading Room [address] [place] [address] COMPREHENSIVE METABOLIC [id number] 17:02:19 Test Item Value Reference Range Interpretation Comments GLUCOSE (test code = See_Comment [Autom ated message] 2345-7) The system [employer] generated this result transmitted ref erence range: [...] See_Comment [Au tomated message] 2160-0) The system [employer] generated this result transmitted ref erence range: 0.6 - 1. 3 MG/DL. The refe rence range was not u sed to interpret this result as normal/abnor mal. EGFR (test code = See_Comment [Automate d message] 09071-3) The system [employer] generated this result transmitted ref erence range: >60 ML/MIN/1.73. Th e reference range was not used to int erpret this result as normal/abnormal . BUN/CREAT RATIO (test See_Comment [Auto mated message] code = 3097-3) The system [employer] [facility] generated this result transmitted ref erence range: [...] (test code = See_Comment [Aut omated message] 7923-3) The system [employer] generated this result transmitted ref erence range: 3.5 - 5. 4 MEQ/L. The refe rence range was not u sed to interpret this result as normal/abnor mal. CHLORIDE (test code = See_Comment L [Auto mated message] 6225-0) The system [employer] generated this result transmitted ref erence range: 100 - 11 2 MEQ/L. The refe rence range was not u sed to interpret this result as normal/abnor mal. CO2 (test code = See_Comment [Automated message] 1962-8) The system [employer] generated this result transmitted ref erence range: 21 - 30 MEQ/L. The reference r edu was not used to interpret this result as normal/abnor mal. CALCIUM (test code = See_Comment [Autom ated message] 05954-0) The system [facility] generated this result transmitted ref erence range: 8.5 - 10 .5 MG/DL. The refe rence range was not u sed to interpret this result as normal/abnor mal. PROTEIN TOTAL (test See_Comment [Automa griffin message] code = 2885-2) The system [facility] generated this result transmitted ref erence range: 6.1 - 8. 1 G/DL. The reference r edu was not used to interpret this result as normal/abnor mal. ALBUMIN (test code = See_Comment [Autom ated message] 61306-8) The system [facility] generated this result transmitted ref erence range: 3.4 - 4. 8 G/DL. The reference r edu was not used to interpret this result as normal/abnor mal. GLOBULINS, SERUM, TOTAL See_Comment [Au tomated message] (test code = 91038-4) The sy stem which generated this result transmitted ref erence range: 1.9 - 3. 7 G/DL. The reference r edu was not used to interpret this result as normal/abnor mal. A/G RATIO (test code = See_Comment [Aut omated message] 1759-0) The system [facility] generated this result transmitted ref erence range: 1.0 - 2. 6 RATIO. The refe rence range was not u sed to interpret this result as normal/abnor mal. BILIRUBIN TOTAL (test See_Comment [Auto mated message] code = 1975-2) The system [facility] generated this result transmitted ref erence range: <=1.2 MG /DL. The reference r edu was not used to interpret this result as normal/abnor mal. ALKALINE PHOSPHATASE 80 U/L 30-132 (test code = 6768-6) AST (SGOT) (test code = 35 U/L 7-56 1920-8) ALT (SGPT) (test code = 43 U/L 3-47 Unl ess Otherwise 1744-2) Indicated, All Testing Performed At: [facility], [address] [place] [address], [place] [address] Laborator y Director: Connor Nicole M.D. CLIA Number [id number] Cap Accreditation N o. [id number] Lab Interpretation Abnormal (test code = 21460-4) [facility] [id number] 16:54:42 Test Item Value Reference Range Interpretation Comments MAGNESIUM (test code = See_[place] [address]-1) CLIN[facility] PATHOL [facility], [place] [address] [place], [place] [address] CLIA NO. [id number] Unle ss Otherwise Indic ated, All Testing Perform ed At: [facility], [address] [facility], [place] [address] Laboratory Dire ctor: Teresa Maldonado CLIA Number [id number] Cap Accreditation [place] o. [id number] [Automated mess age] The system which ge nerated this result tra nsmitted reference range : 1.6 - 2.6 MG/DL. The refe rence range was not used to interpret this result as normal/abnormal . [facility] CenterCB W/AUTO DIFF WITH [id number] 16:34:07 Test Item Value Reference Range Interpretation Comments WHITE BLOOD CELL COUNT See_Comment [Aut omated message] (test code = 24833-7) The sy stem which generated this result transmitted ref erence range: 3.5 - 11 .0 K/UL. The refer ence range was not u sed to interpret this result as normal/abnor mal. RED BLOOD CELL COUNT See_Comment [Autom ated message] (test code = 30512-0) The sy stem which generated this result [...] HEMATOCRIT (test code = 42.9 % 34-45 24699-3) MEAN CORPUSCULAR VOLUME 95.1 fL 80-99 (test code = 57665-4) MEAN CORPUSCULAR 34.4 PG 25-33 H HEMOGLOBIN (test code = 35364-3) MEAN CORPUSCULAR See_Comment H [Automated message] HEMOGLOBIN CONC (test The sy stem which code = 05595-6) generated th is result transmitted ref erence range: 31.0 - 3 6.0 G/DL. The refer ence range was not u sed to interpret this result as normal/abnor mal. RED CELL DISTRIBUTION 12.9 % 11.5-15 WIDTH (test code = 06514-2) NEUTROPHILS % (test code 62 % = 75791-4) LYMPHOCYTES % (test code 28 % = 19053-0) MONOCYTES % (test code = 5 % 24734-6) EOSINOPHILS % (test code 4 % = 07137-4) BASOPHILS % (test code = 1 % 73542-7) PLATELET COUNT (test See_Comment TESTIN G PERFORMED AT code = 94272-5) CLINICAL PAT [employer], [place] [address], [address] [place] [address] CLIA NO. [id number] [Aut omated message] The sy stem which generated this result transmit griffin reference range : 130 - 400 K/UL. The reference range was not used to int erpret this result as normal/abnormal . NEUTROPHILS ABSOLUTE See_Comment [Autom ated message] COUNT (test code = The syste m which 44587-1) generated this result transmitted ref erence range: 1.50 - 7 .50 K/UL. The refer ence range was not u sed to interpret this result as normal/abnor mal. LYMPHOCYTES ABSOLUTE See_Comment [Autom ated message] COUNT (test code = The syste m which 04037-4) generated this result transmitted ref erence range: 1.00 - 4 .00 K/UL. The refer ence range was not u sed to interpret this result as normal/abnor mal. MONOCYTES ABSOLUTE COUNT See_Comment [A utomated message] (test code = 08614-1) The sy stem which generated this result transmitted ref erence range: 0.20 - 1 .00 K/UL. The refer ence range was not u sed to interpret this result as normal/abnor mal. BASOPHILS ABSOLUTE COUNT See_Comment Un less Otherwise (test code = 37846-8) Indica griffin, All Testing Perform ed At: [facility], [address] [facility], [place] [address] Laborator y Director: Connor Nicole M.D. CLIA Number [id number] Cap Accreditation N o. [id number] [Autom ated message] The sy stem which generated this result transmit griffin reference range : 0.00 - 0.20 K/UL. Th e reference range was not used to int erpret this result as normal/abnormal . Lab Interpretation (test Abnormal code = 32069-4) [facility] CenterCOMPREHENSIVE METABOLIC [id number] 08:30:33 Test Item Value Reference Range Interpretation [...] ATED GFR. CBC W/PLT COUNT & AUTO [id number] 08:20:29 Test Item Value Reference Range Interpretation [...] PERCENT (BEAKER) (test code = 2801) CT, [id number] 11:03:00Unlisted Reason for Exam - Click Yes and Enter Reason Below->YesUnlisted Reason for Exam->Cancer of right kidneyIs this for enterography?->NoWill this procedure require oral contrast?->No [facility] : 1960 Sex: FFINAL[address]PORT CT of the Chest, abdomen and pelvis dated 09/16/2021 COMPARISON: June Clinical information: Unlisted Reason for ExamCancer of [...] patient size and/or use of interactive reconstruction technique.Heart is normal in size. Great vessels are [...] is seen in the right mid lobe. Expansileosteolytic lesion is seen involving the right sixth rib posteriorly. Liver and spleen are normal in size. No focal lesion is seen in the liver or the spleen. Gallbladder is contracted. No gallstone or biliary dilatation is noted. Pancreas is unremarkable. A new 1 cm enhancing lesion is seen in the left adrenal. A 2.2 x 2.9 cm, previously 1.9 x 2.5 cm, enhancing mass is seen in the right adrenal. Bothkidneys are normal in size and functioning with bilateral excretion. Patient is status post partial right nephrectomy. A 1.5 x 1.8 cm enhancing lesions seen in the right mid upper lobe adjacent to to the surgical margin. No hydronephrosis, hydroureter, or urolithiasis is noted. Diverticular disease isseen in the large bowel without diverticulitis. The small bowel is normal in caliber. Appendix is not visualized. Uterus surgically absent. The urinary bladder is contracted. No adenopathy or ascites is present in the abdomen or pelvis. Impression: 1. Enhancing mass in the in the right mid upper pole kidney adjacent to to the surgical margin suggestive of residual disease.2. Bilateral adrenal masses.3. Nodular lesions in the right upper, right mid, and left lower lobes.4. Pulmonary emphysema.5. Expansile osteolytic lesion involving the right posterior sixth rib are suggestive of osseous metastasis.Signed: Maurice Jara [facility] Verified Date/Time: 09/16/2021 11:03:47 Reading Location: [address] Body Reading Room CT, CHEST, WITH IV [id number] 11:03:00Unlisted Reason for Exam - Click Yes and Enter Reason Below->Yes Unlisted Reason for Exam->Cancer [facility] right kidneyH[facility] : 1960 Sex: FFINALREPORT CT of the Chest, abdomen and pelvis dated 09/16/2021 COMPARISON: June Clinical information: Unlisted Reason for ExamCancer of [...] patient size and/or use of interactive reconstruction technique.Heart is normal in size. Great vessels are [...] is seen in the right mid lobe. Expansileosteolytic lesion is seen involving the right sixth rib posteriorly. Liver and spleen are normal in size. No focal lesion is seen in the liver or the spleen. Gallbladder is contracted. No gallstone or biliary dilatation is noted. Pancreas is unremarkable. A new 1 cm enhancing lesion is seen in the left adrenal. A 2.2 x 2.9 cm, previously 1.9 x 2.5 cm, enhancing mass is seen in the right adrenal. Bothkidneys are normal in size and functioning with bilateral excretion. Patient is status post partial right nephrectomy. A 1.5 x 1.8 cm enhancing lesions seen in the right mid upper lobe adjacent to to the surgical margin. No hydronephrosis, hydroureter, or urolithiasis is noted. Diverticular disease isseen in the large bowel without diverticulitis. The small bowel is normal in caliber. Appendix is not visualized. Uterus surgically absent. The urinary bladder is contracted. No adenopathy or ascites is present in the abdomen or pelvis. Impression: 1. Enhancing mass in the in the right mid upper pole kidney adjacent to to the surgical margin suggestive of residual disease.2. Bilateral adrenal masses.3. Nodular lesions in the right upper, right mid, and left lower lobes.4. Pulmonary emphysema.5. Expansile osteolytic lesion involving the right posterior sixth rib are suggestive of osseous metastasis.Signed: Maurice Jara MDReport Verified Date/Time: 09/16/2021 11:03:47 Reading Location: [facility] B1 C013Y CT Body Reading Room REHENSIVE METABOLIC [id number] 09:38:36 Test Item Value Reference Range Interpretation [...] ATED GFR. CBC W/PLT COUNT & AUTO [id number] 09:25:42 Test Item Value Reference Range Interpretation [...] 0-1 PERCENT (BEAKER) (test code = 2801) 2D Echo W/Doppler(CW/PW/Color)2021-08-03 16:47:28[facility]CW/PW/Color)2021-08-03 16:47:28Ejection FractionSLEH [facility] W/Doppler(CW/PW/Color) 2021-08-03 16:47:28Ejection [facility]ractionSLEH [facility] W/Doppler(CW/PW/Color)2021-08-03 16:47:28Ejection FractionSLEH [facility]CHO [facility] W/Doppler(CW/PW/Color)2021-08-03 16:47:28Ejection FractionSLEH [facility]CHO [facility] W/Doppler(CW/PW/Color) 2021-08-03 16:47:28Ejection FractionSLE [facility]CHO [facility] W/Doppler(CW/PW/Color)2021-08-03 16:47:28Ejection FractionSLE [facility]CHO [facility] W/Doppler(CW/PW/Color)2021-08-03 16:47:28Ejection FractionSLEH [facility]CHO [facility] W/Doppler(CW/PW/Color) 2021-08-03 16:47:28Ejection FractionSLEH [facility]CHO [facility] W/Doppler(CW/PW/Color)2021-08-03 16:47:28Ejection FractionSLEH ECHO [facility] W/Doppler(CW/PW/Color)2021-08-03 16:47:28Ejection FractionSLEH ECHO [facility] W/Doppler(CW/PW/Color) 2021-08-03 16:47:28Ejection FractionSLEH ECHO HEARTLAB MKCKOLEON [facility]inoJUDITH SINGH [id number] 14:28:00Unlisted Reason for Exam - Click Yes and Enter Reason Below->No [facility] 1960 Sex: FFINAL [...] intact. There is no evidence for a [place] proximal branch vessel occlusion. There [...] CT from 06/03/2021. IMPRESSION: No evidencefor a [place] large vessel occlusion. No evidence of hemodynamically significant stenosis in the cervical carotid or vertebral arteries by NASCET criteria. Signed: Rubén Olivas MDReport Verified Date/Time: 08/03/2021 14:28:37 Reading Location: [facility] C[address] Neuro Reading Room CT, CAROTID, [id number] 14:28:00 Unlisted Reason for Exam - Click Yes and Enter Reason Below->No [facility] : 1960 Sex: FFINAL [...] intact. There is no evidence for a [place] proximal branch vessel occlusion. There [...] CT from 06/03/2021. IMPRESSION: No evidencefor a [place] large vessel occlusion. No evidence of hemodynamically significant stenosis in the cervical carotid or vertebral arteries by NASCET criteria. Signed: Rubén Olivas MDReport Verified Date/Time: 08/03/2021 14:28:37 Reading Location: [address] Neuro Reading Room LIPID [id number] 23:45:48 Test Item Value Reference Range Interpretation [...] Borderline 130-159 High 160-189 Very High >=190 Pl Sql Programmer ID - DBCBC W/PLT COUNT & AUTO [id number] 21:42:37 Test Item Value Reference Range Interpretation [...] (BEAKER) (test code = 2801) BASIC METABOLIC [id number] 21:39:35 Test Item Value Reference Range Interpretation [...] m DATA TO CALCULA TE ESTIMATED GFR. Pl Sql Programmer ID - [id number] TIME/[id number] 21:25:33 Test Item Value Reference Range Interpretation Comments PROTIME (BEAKER) 13.0 seconds 11.9-14.2 (test code = 759) INR (BEAKER) (test 1.00 See_Comment [Automat ed message] code = 370) The system [employer] generated this result transmitted ref erence range: [...] of vomiting not specified, unspecified vomiting type [facility] : 1960 Sex: FFINAL [...] acknowledged at 1151 hours. Signed: Anastasia Hernandez [facility] Verified Date/Time: 07/02/2021 12:03:17 COMPREHENSIVE METABOLIC [id number] 16:55:00 Test Item Value Reference Range Interpretation Comments GLUCOSE (test code = See_Comment [Autom ated message] 2345-7) The system [employer] generated this result transmitted ref erence range: 70 - 99 MG/DL. The reference r edu was not used to interpret this result as normal/abnor mal. BLOOD UREA NITROGEN See_Comment [Automa griffin message] (test code = 3091-6) The s tem which generated this result transmitted ref erence range: 6 - 20 M G/DL. The reference r edu was not used to interpret this result as normal/abnor mal. CREATININE (test code See_Comment L [Auto mated message] = 2160-0) The system [employer] generated this result transmitted ref erence range: 0.6 - 1. 3 MG/DL. The refe rence range was not u sed to interpret this result as normal/abnor mal. EGFR (test code = See_Comment [Automate d message] 97571-1) The system [employer] generated this result transmitted ref erence range: >60 ML/MIN/1.73. Th e reference range was not used to int erpret this result as normal/abnormal . BUN/CREAT RATIO (test See_Comment [Auto mated message] code = 3097-3) The system [employer] generated this result transmitted ref erence range: 6 - 28 R ATIO. The reference r edu was not used to interpret this result as normal/abnor mal. SODIUM (test code = See_Comment L RESULTS RECHECKED 2951-2) AND VERIFIED [Automated mess age] The system [employer] generated this result transmitted ref erence range: 133 - 14 6 MEQ/L. The refe rence range was not u sed to interpret this result as normal/abnor mal. POTASSIUM (test code = See_Comment H [Aut omated message] 2823-3) The system [employer] generated this result transmitted ref erence range: 3.5 - 5. 4 MEQ/L. The refe rence range was not u sed to interpret this result as normal/abnor mal. CHLORIDE (test code = See_Comment L [Auto mated message] 2074-0) The system [employer] generated this result transmitted ref erence range: 100 - 11 2 MEQ/L. The refe rence range was not u sed to interpret this result as normal/abnor mal. CO2 (test code = See_Comment [Automated message] 1962-8) The system [employer] generated this result transmitted ref erence range: 21 - 30 MEQ/L. The reference r edu was not used to interpret this result as normal/abnor mal. CALCIUM (test code = See_Comment [Autom ated message] 17104-5) The system [employer] generated this result transmitted ref erence range: 8.5 - 10 .5 MG/DL. The refe rence range was not u sed to interpret this result as normal/abnor mal. PROTEIN TOTAL (test See_Comment [Automa griffin message] code = 2885-2) The system [employer] generated this result transmitted ref erence range: 6.1 - 8. 1 G/DL. The refer ence range was not u sed to interpret this result as normal/abnor mal. ALBUMIN (test code = See_Comment [Autom ated message] 41085-9) The system [employer] generated this result transmitted ref erence range: 3.4 - 4. 8 G/DL. The refer ence range was not u sed to interpret this result as normal/abnor mal. GLOBULINS, SERUM, See_Comment [Automate d message] TOTAL (test code = The syste m which 76180-8) generated this result transmitted ref erence range: 1.9 - 3. 7 G/DL. The refer ence range was not u sed to interpret this result as normal/abnor mal. A/G RATIO (test code = See_Comment [Aut omated message] 1759-0) The system [facility] generated this result transmitted ref erence range: 1.0 - 2. 6 RATIO. The refe rence range was not u sed to interpret this result as normal/abnor mal. BILIRUBIN TOTAL (test See_Comment [Auto mated message] code = 1975-2) The system [employer] generated this result transmitted ref erence range: <=1.2 MG /DL. The reference r edu was not used to interpret this result as normal/abnor mal. ALKALINE PHOSPHATASE 76 U/L 30-132 (test code = 6768-6) AST (SGOT) (test code 24 U/L 7-56 = 1920-8) ALT (SGPT) (test code 20 U/L 3-47 TESTI NG PERFORMED AT = 1744-2) [facility], [place] [address] [facility] [address], [address] [place] [address] CLIA NO. [id number] Unle ss Otherwise Indic ated, All Testing Per formed At: [facility], [address] [place] [address] Laborator y Director: Connor Nicole M.D. CLIA Number [id number] Cap Accreditation N o. AMANDA (test code = AMANDA) PT FASTING Lab Interpretation Abnormal (test code = 58794-9) [facility] [id number] 16:49:16 Test Item Value Reference Range Interpretation Comments MAGNESIUM (test code See_Comment TESTIN G PERFORMED AT = 34882-9) [facility], [place] [place], [place] [address] CLIA NO. [id number] Unless Otherwise Indic ated, All Testing Per formed At: [facility], [address] [place] [address] Laboratory Dire ctor: Connor nichols M.D. CLIA Number [id number] Cap Accreditati on No. [Autom ated message] The sy stem which generated this result transmit griffin reference range : 1.6 - 2.6 MG/DL. The reference range was not used to interpr et this result as normal/abnormal . AMANDA (test code = PT FASTING AMANDA) [facility] CenterCB W/AUTO DIFF WITH [id number] 16:06:09 Test Item Value Reference Range Interpretation Comments WHITE BLOOD CELL COUNT See_Comment [Aut omated message] (test code = 40221-8) The sy stem which generated this result transmit griffin reference range : 3.5 - 11.0 K/UL. e reference range was not used to interpret this result as normal/abnormal . RED BLOOD CELL COUNT See_Comment [Autom ated message] (test code = 45617-1) The sy stem which generated this result transmit griffin reference range : 3.80 - 5.40 M/U L. The reference r edu was not used to interpret this result as normal/abnormal . HEMOGLOBIN (test code = See_Comment [Au tomated message] 718-7) The system [employer] generated this result transmit griffin reference range : 11.5 - 15.5 G/D L. The reference r edu was not used to interpret this result as normal/abnormal . HEMATOCRIT (test code = 41.0 % 34.0-45.0 24453-9) MEAN CORPUSCULAR VOLUME 94.9 fL 80.0-99.0 (test code = 02559-5) MEAN CORPUSCULAR 34.5 PG 25.0-33.0 H HEMOGLOBIN (test code = 61307-8) MEAN CORPUSCULAR See_Comment H [Automated message] HEMOGLOBIN CONC (test The sy stem which code = 42986-7) generated th is result transmit griffin reference range : 31.0 - 36.0 G/D L. The reference r edu was not used to interpret this result as normal/abnormal . RED CELL DISTRIBUTION 11.9 % 11.5-15.0 WIDTH (test code = 57839-9) NEUTROPHILS % (test 70 % code = 34690-2) LYMPHOCYTES % (test 21 % code = 09645-2) MONOCYTES % (test code 7 % = 06106-1) EOSINOPHILS % (test 2 % code = 81064-5) BASOPHILS % (test code 0 % = 98897-8) PLATELET COUNT (test See_Comment TESTIN G PERFORMED code = 53281-3) AT [facility], [place] [place] [address] CLIA N O. [id number] [Automated mess age] The system [employer] generated this result transmit griffin reference range : 130 - 400 K/UL. The reference range was not used to interpret this result as normal/abnormal . NEUTROPHILS ABSOLUTE See_Comment [Autom ated message] COUNT (test code = The syste m which 04742-4) generated this result transmit griffin reference range : 1.50 - 7.50 K/U L. The reference r edu was not used to interpret this result as normal/abnormal . LYMPHOCYTES ABSOLUTE See_Comment [Autom ated message] COUNT (test code = The syste m which 73310-5) generated this result transmit griffin reference range : 1.00 - 4.00 K/U L. The reference r edu was not used to interpret this result as normal/abnormal . MONOCYTES ABSOLUTE See_Comment [Automat ed message] COUNT (test code = The syste m which 30348-8) generated this result transmit griffin reference range : 0.20 - 1.00 K/U L. The reference r edu was not used to interpret this result as normal/abnormal . BASOPHILS ABSOLUTE See_Comment Unless O therwise COUNT (test code = Indicated , All 80115-7) Testing Perform ed At: [facility], [address] [place] [address] Laborator y Director: Connor Nicole M.D. CLIA Number [id number] [place] [id number] [Automated mess age] The system [employer] generated this result transmit griffin reference range : 0.00 - 0.20 K/U L. The reference r edu was not used to interpret this result as normal/abnormal . AMANDA (test code = AMANDA) PT FASTING Lab Interpretation Abnormal (test code = 32894-8) [facility] CenterCT, [facility], WITH IV [id number] 16:19:00 Restaging RCC, do between 06/02/2021 and 06/09/2021Unlisted Reason for Exam - Click Yes and Enter ReasonBelow->YesUnlisted Reason for Exam->Cancer of right kidneyH[facility]ITALName: [facility] CARTER : 1960 Sex: FFINAL REPORT CT Chest, [...] MDReport Verified Date/Time: 06/07/2021 16:19:22 Reading Location: [facility] Radiology Reading Room CT, [id number] 16:19:00Restaging RCC, do between 06/02/2021 and 06/09/2021Unlisted Reason for Exam - Click Yes and Enter ReasonBelow- >YesUnlisted Reason for Exam->Cancer of right kidneyIs this for enterography?->NoWillthis procedure require oral contrast?->No [facility] 1960 Sex: FFINAL [...] MDReport Verified Date/Time: 06/07/2021 16:19:22 Reading Location: [facility] Radiology Reading Room AFB CULTURE + SMEAR [...] AVIUM aviumIden tification and susceptibil ity performed by:[facility], Dept. of Microbiology Re search, Dr. Mina boothe[facility], [address] [address], [place], [place] [address] Amikacin (test mcg/mL S code = 1) Clarithromycin mcg/mL S (test code = 42) AFB SMEAR (BEAKER) No acid fast (test code = 994) bacilli seen Identification by sequencing: By partial 16S rRNA gene sequencing, this isolate matches the M.avium type strain 100%.Fungus culture + [id number] 00:24:24 Test Item Value Reference Range Interpretation Comments Result (test code = No fungus isolated in 6463-4) 28 days Fungus Smear (test No fungal elements seen code = 1406) [facility] [id number] 00:24:24 Test Item Value Reference Range Interpretation Comments Result (test code = No fungus isolated in 6463-4) 28 days Fungus Smear (test No fungal elements seen code = 1406) [facility] + [id number] 00:24:24 Test Item Value Reference Range Interpretation Comments Result (test code = No fungus isolated in 6463-4) 28 days Fungus Smear (test No fungal elements seen code = 1406) [facility] + [id number] 00:24:24 Test Item Value Reference Range Interpretation Comments Result (test code = No fungus isolated in [address]) 28 days Fungus Smear (test No fungal elements seen code = 1406) [facility] [facility] [id number] 00:24:24 Test Item Value Reference Range Interpretation Comments Result (test code = No fungus isolated [place] [address]) 28 days Fungus Smear (test No fungal elements seen code = 1406) [facility] [id number] 00:24:24 Test Item Value Reference Range Interpretation Comments Result (test code = No fungus isolated in [address]) 28 days Fungus Smear (test No fungal elements seen code = 1406) [facility] [id number] 00:24:24 Test Item Value Reference Range Interpretation Comments CULTURE (BEAKER) (test No fungus isolated in code = 1095) 28 days FUNGUS SMEAR (BEAKER) No fungal elements seen (test code = 1406) FUNGUS CULTURE + [id number] 00:24:24 Test Item Value Reference Range Interpretation Comments CULTURE (BEAKER) (test No fungus isolated in code = 1095) 28 days FUNGUS SMEAR (BEAKER) No fungal elements seen (test code = 1406) Miscellaneous lab [id number] 07:41:28 Test Item Value Reference Range Interpretation Comments Scan Result (test code = See scanned report [id number]) AMANDA (test code = AMANDA) See scanned report [facility] [id number] 07:41:28 Test Item Value Reference Range Interpretation Comments Scan Result (test code = See scanned report [id number]) AMANDA (test code = AMANDA) See scanned report [facility] [id number] 07:41:28 Test Item Value Reference Range Interpretation Comments Scan Result (test code = See scanned report [id number]) AMANDA (test code = AMANDA) [facility] [id number] 07:41:28 Test Item Value Reference Range Interpretation Comments Scan Result (test code = See scanned report [id number]) AMANDA (test code = AMANDA) See scanned report [facility] lab [id number] 07:41:28 Test Item Value Reference Range Interpretation Comments Scan Result (test code = See scanned report [id number]) AMANDA (test code = AMANDA) See scanned report [facility] lab [id number] 07:41:28 Test Item Value Reference Range Interpretation Comments Scan Result (test code = See scanned report [id number]) AMANDA (test code = AMANDA) See scanned report [facility] LAB [id number] 07:41:28 Test Item Value Reference Range Interpretation Comments SCAN RESULT (test code = See scanned report [id number]) See scanned reportMYCOBACTERIUM TB,[id number] 08:07:03 Test Item Value Reference Range Interpretation Comments MYCOBACTERIUM TB (test See scanned report code = [id number]) AMANDA (test code = AMANDA) See scanned report [facility],[id number] 08:07:03 Test Item Value Reference Range Interpretation Comments MYCOBACTERIUM TB (test See scanned report code = [id number]) AMANDA (test code = AMANDA) See scanned report [facility],[id number] 08:07:03 Test Item Value Reference Range Interpretation Comments MYCOBACTERIUM TB (test See scanned report code = [id number]) AMANDA (test code = AMANDA) See scanned report [facility],[id number] 08:07:03 Test Item Value Reference Range Interpretation Comments MYCOBACTERIUM TB (test See scanned report code = [id number]) AMANDA (test code = AMANDA) See scanned report [facility],[id number] 08:07:03 Test Item Value Reference Range Interpretation Comments MYCOBACTERIUM TB (test See scanned report code = [id number]) AMANDA (test code = AMANDA) See scanned report [facility],[id number] 08:07:03 Test Item Value Reference Range Interpretation Comments MYCOBACTERIUM TB (test See scanned report code = [id number]) AMANDA (test code = AMANDA) See scanned report [facility]AM [id number] 10:07:14 Test Item Value Reference Range Interpretation [...] RESULT (BEAKER) positive rods (test code = 044819) GRAM STAIN <1+ gram RESULT (BEAKER) positive cocci (test code = in chains and 642727) pairs BRONCHIAL CULTURE + GRAM [id number] 10:03:40 Test Item Value Reference Interpretation Comments [...] in chains (test code = and pairs 516082) [id number] 14:35:36 Test Item Value Reference Range Interpretation Comments Case Report (test code Medical Cytology = 104) Report Case: [id number] Authorizing Provider: Tamera Fowler, Collected: 04/14/2021 11:52 AM Ordering Location: [facility] Received: 04/14/2021 02:56 PM Pathologist: Linda See MD Specimen: Lung, Right Upper Lobe DIAGNOSIS (test code = v0slaMPuMXLhl9bgIALhzD 3220) FuZzEwMzNcZnRuYmpcdWMx IHtccnRmMVxlcGljOTYwMV vftoBhMIRchHQgK5Ngvgty EEzxRO2kHJ9zhCwngNJwhC PaWKJlEuOvi9ahq087yUPw t7wiIQNOtgbscCc5tCinT1 9me4G1EcppB13kaTMbARO2 WITrSWOjyOPxQUNlFBY8PO ActZMkG5uqMHZyEJ4bvegb MPrfXJzrTDBzjMW2XKKhrU WjP8LxHWEpEXrrEAVviqy3 OmYrDy3xdJZzmRfqHEkeJG JkXHBsYWluXGZzMjAgTFVO RywgUklHSFQgVVBQRVIgTE 9VRHveCqIRZZoHTOHTV0VF TlMpOlxwYXIgICAgLSBORU gBYCqXQTLPA9GsNUXSLBfD XY7XPVjhPSKzYSUjESCGaN QuS13AFVL0VMbfPKutLQ9v F5H1cXDuAYTrrbTOiiG2xZ 6orHE9lGLnx5XnYM5bn43g BQWiVMSrqGrtfaCqoI5iyB 2cADluMGFdSWMlWAJAwxS2 gYBrmAKqcjFvrLXpf36jJY LhDMYnTRXlDpipLSU6q5el dGYxXHNzdGUxODAwMFxhbn NpXGRlZmxhbmcxMDMzXGZ0 bmJqXHVjMVxkZWZmMHtcZm 4coIFtyOcwFmZlHVEjj1kn skISznmwjZn0m7zeGDCvNw J1fKLgUAfdZ1afftDupNEt PRIpOUw8cV13IQGudV5pjB PuSLypmuFoJkL9DPpoIGHj WqV2CBNwkHPfVCOaH9zbDK QwXGdyZWVuMFxibHVlMCA7 gDzix2B3cXTzoWRnjTnsRd OhDhUbEmMXx4MsRJg3qSgq S5RqFAAjRqL8aQTdUFOiUY ynOJJiYTZuamM3nV82QBpa xzW9cGRdl1Doa27mk439vL 5ylDTvAXR8EZYeWBXszFZa HSAeNKV3UCJnnYPfB1oaXS JjSC2krivaPHvlCWzgYGYs eIK8CRSapWEtS7ZnGGPfXD bxAMXmhjb7AuDeHj8btQVp tWipDJjxb1rff5atbXDlQg y7DWZyMiFdQuyxKFecs2Ds a8ljBREmva9bPUC6kLSicF ygj5Q5kIYmEGVaeCMqTSWj GJ3fiBDpCGZwyN9zuhuyUK BnYnJkcmhlYWRccGdicmRy Lm2rtWjtGSE3DKnoJ9ajfA 8uHbA8MSrsH2xtaX9fGBt1 WVhwXAXdwIW0wzK0RITjtH DbM4DjyB6oYZYpOV4ozfi4 v1qgVYP0GRgaXFFzAsM1pr G1WEDdgNNxVCQirHciLDjo z272SGO4QtAeOWYhd5QlS9 QowVrqT98vzOlmW96hMGWq lMzmuT8avUnfaK1gHeLfRs IfFNoymBriPH6oEOJeX0ur jDBkDZGmJPIaX1rmKzDtwI 2ypCxsLYijwtQqAVRtPji8 DKZoqOIzNDPnScm0DUKtXN BpB22bramgZBW4tH6io8dj j9RnSFevKHG0DZDpz70yHB onucP3DVocId25JUtiMOM6 MQpccGFyfX0= COMMENT (test code = j4hlrCBbEURegHR1WkJqAN 5633) Nnb5oej0JpkJYwuMFrEPnc gGCapsYleu96dAN8kC80GQ 0qHSIzPuD2WKYtjaP4Xgx5 UQYrTIDatVRmK377q6isn9 xcbyUweMM5mUixMERvexqv JlR7CCkaDYCygakdGOe1XL qaIURamZK2QRHreLVeU4Pw RKEjOL3vmfm1NRU0PJhfHM ScHfG7ZCFzhDWoRTOcfZvg CLsjt949MWH1NmDqPLJcwx DstKwttB5xVzEyDQMIeSPq u1IzA7wlIN3xsHSaV39gzO 9pPVOpm3NdVwXohPtsFLHv aXMqnxxpVaCckm7lU8ioJX wgZXBpdGhlbGlhbCBjZWxs csjfFYj6UF3qTOLotIUiwu 9waGFnZXMsIGFuZCBhIHNt TYmrCOThz0EofHSdQcAdT0 A1NEYyuvQdPX8gYBRup38k IFxwYXJ9 CPT Code(s) (test code i3lwlQSuSESqwGT2DdIsAZ = 7836) Jva3iip8AtoQSvoMGoSGog vREnezThjo52eJF4sL57IL 4xOWKtEoE9TRKakzU7Pcl6 ZNTpAPTjsUHlU649q7xcf5 zngtKzdII6bRwrJTGeudme RhK0PCmhJXNyzpzcDRc5OR urGTDluUH8ZHMndGDmD4Ra WWJbJA6hbze0LSD9VZoyCD LuMyD9RNJbhORqZIQpzXmy CNhff035AKD4UsBtDXDplu JtsLktwP8kRgZsDMM3SQGf OCwgODgzMTJccGFyfQ== CLINICAL DATA (test o1gqcDFiJCSdiQK0GkHnXC code = 3355) Xva2qqd3XcbWYfwFHdSQjv aNSrqgLmzu49hAQ2cS90SY 6aMVMeKyI8RMCaynS7Wzg8 GZYkZHUxeTRzO584h2wmc7 jyipQafKI4aQvgKJNppbgy UnP6XNjbDPIfghftETg9PV tpCSJtnQA2QYGwbZXnT2Iu LXHdKN5ihaz7BUN9KBbeUY WrSgY8FZNpaYUnCHCzzEwz FLlhm391XWT9ScSpRKQaay EajYjvoV9uMtPtXSODwR8l ID3jJSRnCTL3GK5sL1BhsN q0lH0yNEsdXO43mA2qJGJc cgBolU8oy4abi88vZuVlyM CiT9aiZFA7 SPECIMEN SOURCE (test w4edoPDgGZDqzPU9YyZjVA code = 3377) Jjv7fqs5UhgDSknIJrJGlt gYMpmoXhca04jAC5qE46XA 8sWODyKfD1LMGshfJ0Xfp3 QDXjHNEwkFPaD261f2bjd4 tnjuJeoYB1vNojSLEbamgx PuS5EZwvJOQgwnvnXAz8HZ lyFYTmwAV4EKQftPGyD3Bv MTSkLJ7hpuv5UZH7PHgpEE NeMeX5GNKxrQZrGNSghRmb SIytv169FFI9QmGnTBDpsu CrbGiqaW7fJrPkRAPOSB8K LCBSSUdIVCBVUFBFUiBMT0 JFLCBCQUwgXHBhcn0= GROSS DESCRIPTION (test p4zwwHMqPBVzxXJ5FcRuJE code = 3366) Nyb9iip6CudDGhyXZjXVms cENfvqPwbj70iLX5aY62FS 3iINHcYcO8TFLhdyK8Fan5 EJQmESDtcOJfA871z0mrg2 gxhcLpzSH0dFsfXEIbowmt ErI0TDgrFCHihaiwQFw2HF xtYXJnbDcyMFxtYXJncjcy MFxtYXJndDcyMFxtYXJnYj ozYCyaHGWqVRC8TDqeh676 YIT7OLbxN6prkP8iHoL6SI zaN1jtiZ4sXWk5HRbkBMZk tJZ0jvdfMXcjPJCifzN6rr ljAFekSFPleLN4rfixGFej HWZiZuI7zlwiYQbcFOTjPZ BsYWluXGZzMjAgUmVjZWl2 ZYMdZoDqhGtjU0p6g1RkG8 ltwfPgOTQbfMW1aXUgPOPa bXBsZTsgcHJlcGFyZWQgMy QdiPIzr0GkdlVaZGQhP71J IFxwYXJ9 MICROSCOPIC DESCRIPTION z9fyjYCpLYZsqXS5UxSzCD (test code = 3371) Fyy9wis7UwaBFitTUiJSnp tNAlftYomz42zDN7uA73SF 7nOUOkRjG1XQSpleR8Pbs7 EGUfTHCnbODxL912f6nmd3 blcqYnjED3mSmhYFJphtxh CaW9IHtrMVBnemfbFLr5MP vwHJRpkOL6XVVnvLGqD8Wb BBLtOB9sbcn1AVR9EXqgRU IgNgE1FOGqlJNrYSGjqWan RWpqp215NZM4XePkOEExwf OjfPcrkO1cErRyIGLKKSFs k0CqZXHdKAqyYLL6 STATEMENT OF ADEQUACY Satisfactory (test code = 2757) SPECIAL STUDIES (test n0klsGMcHCWum6uiLDPkdL code = 3376) FuZzEwMzNcZnRuYmpcdWMx MIvdbaZnJUvks4NvM5QoGf AwMFxhbnNpXGRlZmxhbmcx NDFvGTU6wdJaVBAuQYqfGE ElFBmiKm9rdEYqqIoiTbWc VJEwd4kxxtIDhuocbAd6h2 owZURgZtN2oTHkYFowD1ra odOzwKJfN0JxqZYvsJz1j5 qlWaWsKoE5qRPmUSasE4fw pgNbbYKnMQXdYPf7lV65ZB GhmT9hoAMaEBhbwjFdIoD9 YUbkJJEgGiM5ASOzoKMpOD BiN2ykCGDqAWcjAQVzILzd hFZqOSB2kOkmw0I9bQVtsE BltFrkRkGwKuUcOzIFk3Mv QIx2qFdgN7OqJZUkZsA1cC QgUGFyYWdyYXBoIEZvbnQ7 kOvzntYur14dfUMlVBTfVL CkRgBkcIggQOTjCNSNe8Rl qEawRVC4xHe3qPesLvtpSG M8Aqb4GG2tiw83fds0jGkx EZIzwsaoMdO7CBcdJEVluu kfIPv4EYjmGUZwbRN8GEWq vJEhS1TuFBIyGU5boiq9NR K9TRhbTLQnRwZ0LFKavACq RJVyzPheOOwhj993PZU4Tj ZaBL7yB8Htf8A3dH0wuGMn ZCWdkVIuIiIhUUNuob4zfJ TmPWywy5FnXDM2aqG0vSKg cLYeWMNlZC82Wzkvr2BmRp tos1DkI45azEX5YFijy8ac UO5eGuC4klKzOFlqm6ntiC 2lPbY4GExfLE9hYQ3fMCCf lC0wwpiiVEGbXmFbrcmhOU UxjLlytnCrHe9rbCrwTCF7 OEesJ7dxpM2tBdP3LZdxN5 laiZ9iBQf5GChuyYF7GDTl eL2vNK2wdirhi4rlBSoqAZ lvODPpvyB4gtD1MIBpbYFq Q8IswR7zCMRoNP8kgqgzv4 etBUU9MIujFBPcWKO0UmLa RWCpt6Bpprl0XmWtd3NjzN LcUZsnC53xl343XNJtpeMf R5eriYRiicoerQFtycelIF fgguM3MZXsWQVwZKndZHJi XGZzMjJcbGFuZzEwMzNcaG ljaFxmMVxkYmNoXGYxXGxv G0luWkGzN4OeZBAmLeYvZR baHXivuTBmzBYfnZU5zR7v AX3rFBPrwVClV0SkAVAqvy MgnAKgMVJ6uXWtkMOcNQ8q EQoluZIjg1ylq9CdF5rtsR ulnBN8SV4iFRSqFPIaMOps x8ZtaT3jTbuvzSGfjwsgNC xmczIyXGxhbmcxMDMzXGhp S0wqTkNtGCOwjJsnSAfre8 NoXGYxXGNmMlxmczIyXGx0 cmNoXHBhclxwYXJccGxhaW 2vIeIoLqIoFfzuFP9kATXz B0uwsSAiCOOgXQPrL8qdMf ZbeN3kfAurUAgkHxNiEeKm SoUJc418zl0rELZdxADgco PGoFJkiM3vXHcdAJweEQax cLFiGYugx4xwMRBoh2i3lJ NuZPJtgaYeb3kiLMfdexRn REXvkLQjqACqCDSxx51bSI nwvMtwoMfcYURxp2RqdPtu m9SoSjWcPPxjk9PqG93weZ JvbCBzbGlkZXMgcnVuIGFs a29vu5imTWFgIhM4gOGhbN W1iDVzqCWch8EtgOkdMPYg f0zrAXGiky2fevvkrFCro2 KghX1ltgwmDYiohCEpvrHy XTYwp8y7wJPbNNJwCVFqDJ qujKy6QJCwk726uj9okrG0 iSXbKOY6WRcqINZhUVDqge UgZXZhbHVhdGVkXHBsYWlu XGYxXGZzMjJcbGFuZzEwMz NcaGljaFxmMVxkYmNoXGYx KJgoE7zkBuShK6YnRANpKk NfzDQlK8xxcOIxBJRsYUdy XGYxXGZzMjJcbGFuZzEwMz NcaGljaFxmMVxkYmNoXGYx QCiqO2xfOlGvW1XhIAIuBt IgIFxwbGFpblxmMVxmczIy IMedobsfJEYhSFrhQ6tfXi SvGKWzvKrbSTjpi7BqZCTf SRDaWowghpUsOSo5ukGxNH BhclxwbGFpblxmMVxmczIy YYkdappfKHIzLZpvU5awTr ThLFZlvVyfXEndx6SbPMIk XGNmMlxmczIyIEltbXVub2 nos7FkS8yvnOwjzKH8BXTs B5yszCWmrXZ6NZP7gF9hUP vwwkMcRWLyh0EmZHQcHJSq KfT8tT4tTZG6XaLUqIcoEV BsYWluXGYxXGZzMjJcbGFu ZzEwMzNcaGljaFxmMVxkYm SkLGEjBGgzZ6ajNpRlF2Wv XYLkCkAsdGbaBDliHDb8Ph xwbGFpblxmMVxmczIyXGxh kzncOFYbUFqcY1rrCcXiJA DqeCzjKBfmm1TjVZQjDMOz MlxmczIyIHMgTWVkaWNhbC WFFV01BAXvHYJxwKdymC3o bKZXKDFdbmB5r1K0WEnbVD FnWJl3QLpmqnSzAEPhdM2b RKTkIZ0oHCe8mpIkOXNkh3 DpZG1pVMMmxKAjIXZ5BNTh l2QrG9Ndj7MlCRXtFGOsbg 6aifGnBlSJgEGkPMRzef84 ONGhBD9gA6svZUBwZSRnls AzaLXwf7ExXGBefXK5wPZp GB4DUgBZn51fAOTgXRSGzt UnEQDhlBtfnHI7gpN3zN6w LiBUaGUgRkRBIGhhcyBkZX Qzdq0ovfUxMGAtKZVjg7En vJIksQPtjiPkL1Oqq5PpFX Tpei49RXiueRGttx61PI3s Q0Fwa0VeeP7uLXubNYEsn8 GepQBpuLHbZOSoy6AqU3hb kcwyEWghnNDejT9fRALsER v6PWUgg3DgPXNtr7YsApLm pjDwOXAxRHLpUCGbdZ76OD S3yZgecKurlxQzIK9vRGJs ahMbXVKzVWUffR2yIWtdlx PlTSEjjyP4d5X4ZMopNWBe siNqOngcVXA5yzSnxzU0hC TmD8uamyfgRGmqPJNrk5Bf oK2tiMGNrNCyw4VddLYepO FMiZUtID5lxzHpCA1tYNS4 ODggKENMSUEtODgpIGFzIH N7CWgyAaauEGP6gxCyJXLc r2WzCWtyA2toI27wnHmabC z6bRTzuIhaiFCqcVJyMIMz rkF6g7V9XXUty3YavtlhQT BsYWluXGYyXGZzMjJcbGFu ZzEwMzNcaGljaFxmMlxkYm TgLTGcRXmwS2khFhPzQdYr UjqyKGP0iQ== Gross assessment was [facility] performed at (test [facility], = 2777) Department of Pathology, [address] [place] [id number], Technical component was [facility] performed at ([facility], = 2778) Department of Pathology, [address] [place] [id number], Professional component [facility] was performed at ([facility], code = 2779) Department of Pathology, [address] [place] [address], [facility]36 Test Item Value Reference Range Interpretation Comments Case Report (test code Medical Cytology = 104) Report Case: [id number] Authorizing Provider: Tamera Fowler, Collected: 04/14/2021 11:52 AM Ordering Location: [facility] Received: 04/14/2021 02:56 PM Pathologist: Linda See MD Specimen: Lung, Right Upper Lobe DIAGNOSIS (test code = [id number] 3220) FuZzEwMzNcZnRuYmpcdWMx IHtccnRmMVxlcGljOTYwMV qlxnFaBVOjlUEpA5Plnzpo FNoeGM9aRG4ixEqhrFCodX FxRWUoTlRmo2yvi637nFYp q3bsZMEOqhcnjPs2fRwfJ9 3wj6B0PqbkN63nfMYrJAO1 XZPmYOMiuFZrKEBfCJT7AD EwlWOjU1xiCCNhGC0zufli KWktGCivNPHihEX6RKVneP IxC7OaTXKhFBloLPQradl7 FxIcNi1wpRBopGorXXauEK JkXHBsYWluXGZzMjAgTFVO RywgUklHSFQgVVBQRVIgTE 8BAXbwUtBDDEmVKNMCW7TO TlMpOlxwYXIgICAgLSBORU zWYJiOBJKLH9UzEIDDSElX NA7NKTvgRKQhHVRwEHXZuM TyC11EXGF3FDjjKQmxBZ5e Z2B0zHRtILIpfrYRmvU2gP 4bnXF1rHKfu8KmNS3oj34x LVLzMBTllTnrquXjuJ2fcB 5gESxqAWHoLUPdAWTVueL7 wXMquZTaepXncAMfk72eUE YjWZLaBSTeLqqzVBZ6y6le dGYxXHNzdGUxODAwMFxhbn NpXGRlZmxhbmcxMDMzXGZ0 bmJqXHVjMVxkZWZmMHtcZm 0dcDIdbYrxPlSdCWWob0hb lsHSfqbakYp2e1xwHEMhDc P9qSBiBZqgY5klbuYmdHZh WIRuAKc7eD98UKDffJ3apW ThYPovolOnOnV6AGsgYMUu YfJ7QTDzuQXxXZNkW5ipKO QwXGdyZWVuMFxibHVlMCA7 ySiih4L5cYTfzHMvpWlkAq InSbFrHkMVw6IeTEn1xFse A8BzXLKfFeK8sFJmOOTdOJ esBEKbDDFeyhZ0fL28KCos ssT2lSCph6Skh60ei301lL 6zpTQgEKF9VDXoSKEgoJOj WWKkAJC8ROPafVRlL4hiTI PmDK9zirhaSQeiFKptZONh bRJ1QVFyuUCzH8JjTUGtMB mnDZJxmro1PeRpDh5ciGSi tEzhCEcdj2hdr7mclFQsAz g8UUKxMmVtXwhmOVsjq8Wz x4udKIXxiv4yKYX3dPCgtE fkj7H6nXDnGBJsmYJgBSLp OQ1rmTTsRRKktQ6ylpvyBO BnYnJkcmhlYWRccGdicmRy Ld8kfNdpIMG1TNmoY7oimO 3oUpG1NVloO5jjzP7eJJn3 BHsgCGLsvZX5otE2PJFroZ FmL0FjbU0rFZQkEK6ynxx2 k2vhHBZ7ZEleESIqZvC4cm V8WURmrPDdBHHfgQckABfx y623TLM9UiJgSTTtg8IdS2 VngXknR35kuAlyQ50iOEFq rEmbjV6swZbvoV8rFqLhLj RpMTbloIdbEU2kFSIqQ7gy tOGrWHUsOEKuV1ltOtBceI 9ezMhiVAgmjaPjXGPhJyv8 ZWXovDMaZSJpSnj8ADOjHN YrV92makuiEUZ4oG0ym6ll c6GmAJtiAAW6PAHlm61gPR fcuiT7XLryOs45SKmfYHQ2 MQpccGFyfX0= COMMENT (test code = g2hgmXVsRDWogIY3NvDwWG 5733) Nvy6xuf1FqhDJgcUXtPWuq sEIbhrAldl90eJE2tA58TV 9lQKVdStT1GODssbI5Tjw8 BFLaIAWsjAKoL569e4rwb2 qjurNhhRW4oZxgDPFytmom BnL3ULsqCSSirbvdPSt3CE lmXYGotBF3CUIneZKrL7Gs XJRwKE3cclv0QBJ6YVhqDX MsZjN3XDBllRGzGYDcxPhj LAbfs459OFZ6EnXzHHNyyr YxmYjhqU7tSgOzKBSJtHXk i3LeX7qzNR8ejYDbF21xkT 4gNINsv3ZjCbLroCmmSJQr sKSitybvQaNwvf2uX7rwZP wgZXBpdGhlbGlhbCBjZWxs npsaEEc8BC6wAXWrbPUmrn 9waGFnZXMsIGFuZCBhIHNt ZEzcQGMnz8RtlYRgKtZuL9 F8KFNgsuVqFZ0xABEpo17e IFxwYXJ9 CPT Code(s) (test code w5ariMTePPIliBY0LbElXQ = 3357) Bao6uio1TpgXDlcPBmOMnh oXNjxiCaac38iVB0jI80TH 2mVAUiZuR2VCQbzkT1Ycl3 ZYUaNKFgoQEoF540k5czv6 yqktXrrMS5iJqhBBXxbael NpY5MEovOFNikuwaWZw1ZH lcSXZwpBD0GYLurXHvX2Vg MMMpPB2qnvs5WRJ3HHsbQU DeDxT9BLCrhFShMLOaoIus NWpdc761HQS6UzUjIIQaim WxyCbjfP9bYwWkBNV0YTTj OCwgODgzMTJccGFyfQ== CLINICAL DATA (test k4xwjHHvDNSgyZV1GiSsBZ code = 3355) Unw7dfw0ShiEBrwQKfXYvj sETmfwBujg22dIO3cJ59ZN 5iBEOuGfK7TLOqjgJ4Avj6 LTAnTGCnrMAmI814h5chx6 brvnXptTZ5dXlzKVAayoqr FuG5QDseBDDhmkjeEBs2GI xrFDBjjDX3OVCrrJCiR7Yq JWIaCD0azax5MHE4JMkpBF EoUlT8TCBekUOqIEVbkSue OSzxl137ZOD2MzVbLBQrxk PxmAzxaD4sXjMoYDWKaA9t RU1pELVlSZW9PZ1fV0NqyU y3nP9lTKcfTP67oS5vPKFx blZdxZ8vd8ytu80aPqEyxC JhA0ahLLI7 SPECIMEN SOURCE (test v3eptIXsDRTktCX8RrBaOO code = 3377) Oww0yvn4RfeUDzwJVkRZgx fFFkipCyij11dQX9yM86WN 1eSWUzVtB7DEWwupV5Udx2 GXSxRWOfaXDxP204g7mon4 zxnlNqoHY6jFznUPLduhdi WdX3ZBpuSVXvlrhgRQq2GQ tkHMTurIN8ZQSmbBJpS1Rj BCVtCS1xzmp2QPV8XBakFO UjCkC2YHLmtHSaSEKylJvv AMvom389AYV2OcAhSTUihg ZohSdacE8bZzBkUXDKKN3I LCBSSUdIVCBVUFBFUiBMT0 JFLCBCQUwgXHBhcn0= GROSS DESCRIPTION (test j8qrcTOhKEAxiRV8TnHxEM code = 3366) Izn2nth2PltQBxsGOeSAxn pREpxcIwms42fZE1rV85TR 3sJGHbXgT6WJKoucZ6Kmg1 TLOeVLHzqBCoE698o2mro8 bxrfMzrPP3rQonQFSyislf YmN2LQlwCCGfhkmjJPw0CR xtYXJnbDcyMFxtYXJncjcy MFxtYXJndDcyMFxtYXJnYj rzFIucLVFdURL9YCjyz035 QZE3OAocJ0fskP8gAxK8PI ngF9tvcE2gPGe2KGglHRNy gBH7jmvdPMrtDNAkymF4np lhXLcyKEFsxLC2gtkvREea OWNnDgV9ymliFTvsIKEcMI BsYWluXGZzMjAgUmVjZWl2 LLTiXoRboKolZ0f4l3GoW9 acnaNcGCJswCU3rBGnJXJo bXBsZTsgcHJlcGFyZWQgMy RhpETqj6OkefYqBXArF83Q IFxwYXJ9 MICROSCOPIC DESCRIPTION m1ltpCSaZOLhzPH5RiCbWT (test code = 3371) Mnp6xxr5FvmWPtdNTfVMvk gRQsqvWsil24wFR6jQ16IZ 8lQXHcQtS8JSUamiJ8Tjw1 IGFjDKBzwGCkP293e6syt5 ogfnTwxQJ5mJcgVTXpjlmi LnR9MFwkODQykdelUXh4WM atNBOchPR6XAXcqHRuU2Qe QUWiSF4qkht2SCN3VRhhCQ XlVaC4GIEemGCbXMHxmOyv DHnyn882HIV9YkEgVEUllj QksYgniM9eIoEsEMZFFPVa v0BiXJXhYRxtYJG3 STATEMENT OF ADEQUACY Satisfactory (test code = 2757) SPECIAL STUDIES (test i6cghCGmEHDwq7jlEZIsvE code = 3376) FuZzEwMzNcZnRuYmpcdWMx LHyhrhTqKRizx8QoL8KlQp AwMFxhbnNpXGRlZmxhbmcx RQFpBXY2cgWaNGAqVWqeZU AhORuoJs8udAJhwKptPjKg GHYek9gfpyBXkudggPn4g5 qwIZAcQoU2jCEsKKaiE5kc czRbjCLhC8WahWAfrSh8f4 rwEjKiJhX9vBZgQOuoU9xy coZmxXAqGDAzVDf2yI73NI ZajT0nsBHdILkizuWyRwJ2 QEodKLDyNjM1KERxmOCjNC TpZ0niSAJjNEyuHHVmVKdz cBJtRUW4aChka1Z3sOVhfX LjbLxhLbMlKvTrZkNQz7Jd LKd1oDboL2AnNHWuMdE0gX QgUGFyYWdyYXBoIEZvbnQ7 eZyneqIbl50auHEcDQSgPY ZuBjGkyJsqYXGcPJCVb0Wd lEmkLAF3nQb3uEruLhlnOS W3Daq9RT2qkr58skr6lLzu CXUqqvpzIyH3PLonDLUlth rwERz9HTrcXFKvjLO0DPLu kJEfB4KqQQKkFJ3dtsz5GL E3VVbiHCXjFjY2LILvbUCe HAAwnLsoUNmwa613JNS0Hz RnPY6bR3Txk0V0yL4alOCt LXOjtNQgWhZbEATaez0acT VvCAagz7HuJUP1qtL7iTTv aTXqGWUqDT99Wbfhh4RmCs zef1LhM70jaUT2KKxwb1dl IN2yBfB1bpIzJIrej4emwS 2gFkR8KEquUO1nKM7nDWUl lK7bjfavQLQgPdQozdyeAS QjqJwshuWpKg9xjPgfIYC4 BBrvK1tenZ7pKbT2RKntN2 kasP5yHJg6DAwzoNY9WNGz bR0nXX5ruvaky2bdTIfuNV gvJNTfhaU2hnW4UCZazLZp W4WawT6xFMVhJS2pmlsmo1 kmEAD8VDejRVSeNTQ1SoDv AFMak4Dqxrh7EiBni9QxgJ MgQNozX80gj374URWqhsRq G6dbhYYmuomvbPXqqjgmZR yweuW0ACWjXOAaSWimWUUh XGZzMjJcbGFuZzEwMzNcaG ljaFxmMVxkYmNoXGYxXGxv D7ohSrRpU3GbCPYgFrCzBQ ofZFinxGBvpYApcTA6lQ5w UW6eVHTzqSLhQ3HeQNLtby OyrZAnRMM5oTAxeJUnQH5u MJbpjJIif7qrj7JmF5tgcN biiNV0EE5eAZZhZJCeYTom r1MpfH3xMvhqbRThdcfoYE xmczIyXGxhbmcxMDMzXGhp Q3nnWkApREKmcDvgHXwda8 NoXGYxXGNmMlxmczIyXGx0 cmNoXHBhclxwYXJccGxhaW 8uGhAiQkVlTnkcNN0xIQCz J3zekQKrKKHzLKRaZ5ujDv QzbC9eiHdtEIcdAvWkWrSu UyOGz434le1cOKQjyGKavz KVsCGmtX8qUUklQYdcYNky aDFfGZsea7fxXSTlg7o4jK BvRLPrwhUtr0zhSYvjbwKx TXJbcEDbhCZjGSEwe00gAH eakRbemWdxGXKoq2OudGtv b8AkAsZwULxsa6PvQ22yfW JvbCBzbGlkZXMgcnVuIGFs b97rz4pvXFJmGeZ4sTKgnR I9jORjdFTog7AttCuyNCMd o4nuJVYftm0hhahyzGYkk4 AosZ2ulnfpKChyoVGtlkMz MNWqi2j6tDAeCRGdARXtWJ ldmQc7OBGcp891rk3vdrE7 zBExAGJ2ZCxlKHIbQXFpov UgZXZhbHVhdGVkXHBsYWlu XGYxXGZzMjJcbGFuZzEwMz NcaGljaFxmMVxkYmNoXGYx RMqaZ1iaRnUsZ8BpQSEkUd WxnBImI6gygBIpMXBrDGdf XGYxXGZzMjJcbGFuZzEwMz NcaGljaFxmMVxkYmNoXGYx CIizY1orNmHwC8BwYRWwRg IgIFxwbGFpblxmMVxmczIy OXkfwvbeLMSqCRmwJ2ujTx ClULTmhFmaCQjhd8RqZICb FBLcRcjupuTfHSh9ckGxPJ BhclxwbGFpblxmMVxmczIy XMawqhoiBDFoYGygP5upLs ZvRJOcfZjpDUocn5PrBMZy XGNmMlxmczIyIEltbXVub2 uhz6GsA6komMzmmEP4BCAj L1aflNBvdSZ2QXR1qN3rRK oortFvGCCin3JuYMNxNTWg LnH2vL8lNDG7JiHDbIjdCU BsYWluXGYxXGZzMjJcbGFu ZzEwMzNcaGljaFxmMVxkYm CvMCFyPUwbB7oyUdWeQ2Cw MNArUxKvrTeoIYwrHEs2Rz xwbGFpblxmMVxmczIyXGxh ygroOPOxWIbvN5hePwNnHD VugEprQDxfr8XoRBMqQIHl MlxmczIyIHMgTWVkaWNhbC PEAG48PNKaNZSzjFufpM4l kRSSSWXyigS5d3C4MQwqHL QnZLn5GZlvujDkUCHysO7p MCSjUQ8dOAm0leAaYPAvg4 WdPJ6hAJYjvJJkHBG7FGHl w6PdT6Rvx9XdXIRaMJSvhu 1dujUlNjLCnRNvTBMhmc19 BTJzQJ7kH4xzLIKoOSLgwd YqfTKtb7KcOGTvzRV7dBEw LK0XVqVKl33aTYSsZZROop BcHKMkpXqjhOF0wyP2oT9u LiBUaGUgRkRBIGhhcyBkZX Cnwz7ndxXjTZQrKPTtt9Cm qJKmdIKjosNsA8Jzc6YpCX Iett64DXlvoRIkxc93UW5e D4Cgi8MaaN9sMQhbWDEyo8 VrcFBojNFdQJHcf8VyN1sr iozoOEpctCHckL5oEAUiVY l6HVVxh6WnMKKfp6SjHdVr ywNpHBXpPCOrIVKyuX19ZX D6sDaqtVnmxxBiCJ2yXYZe jrGuLLRiOKZuoN9lJBtnck LdQPVadwI9k4A8NRzbNYYr hjYiDcghONZ8hjGywwD2sB WbS5rwrvjyNFqyDTHnp9Sl pJ4npLRZcPJyk3XudPSujR KCfYIrVU7bibNjTM5qRVN0 ODggKENMSUEtODgpIGFzIH I9FJvlXsziCPF8tyUbPFNq o7ZvEZvmV1nwO08oeCwihI h9aPUfaEqdoAKmbBIlAJUf jtQ2h8I1IRKhj2JdcumbAB BsYWluXGYyXGZzMjJcbGFu ZzEwMzNcaGljaFxmMlxkYm UaGQJbEOnfM3qnJjEhQlXn YtyaNMF8vB== Gross assessment was [facility] performed at ([facility], = 2777) Department of Pathology, [address] [place] [id number], Technical component was [facility] performed at ([facility], = 2778) Department of Pathology, [address] [place] [id number], Professional component [facility] was performed at ([facility], code = 2779) Department of Pathology, [address] [place] [id number], [facility] Test Item Value Reference Range Interpretation Comments Case Report (test code Medical Cytology = 104) Report Case: [id number] Authorizing Provider: Tamera Fowler, Collected: 04/14/2021 11:52 AM Ordering Location: [facility] Received: 04/14/2021 02:56 PM Pathologist: Linda See MD Specimen: Lung, Right Upper Lobe DIAGNOSIS (test code = k1zxoJOdCGVqu9afITNdyH 3220) FuZzEwMzNcZnRuYmpcdWMx IHtccnRmMVxlcGljOTYwMV yaueLcEVCyrZMtF0Grrfxh HSrvDQ5aEX8vfFkunCBvbS DyIYHuInCcd5eis944kRAz f3meYPNVryfikFj6cJzoX3 4hu3J9HpmhP95rbMLsCUQ8 QKDdNSXrlYFjWVKjLDP8JH NwsBDuS7qcYSNeVR6hzwgb ZHbuFJcuFIXusUX9ZDZjeQ RpG8QvUFXbEYelSLXzjia9 ArDkDw2luLSioCslUWmjZZ JkXHBsYWluXGZzMjAgTFVO RywgUklHSFQgVVBQRVIgTE 8DZLzoJsCXXOwENZXHZ1OW TlMpOlxwYXIgICAgLSBORU cWPAgGRCPAP3UmPXCMNIgJ FV0RXZexJJZtPLBkXWPZtH GrU80DKXQ4UPkaHQryVX8o O5W6eFHkZRAdycMZrpJ6hO 3ebIZ8fPRsa9DeZO1ts61a NYYjVZKxfZncnlRhdG3arJ 2zIJbwHHFkENGlEASFucP3 nFYfqWWypnVulTKmq72vPI LnZYDaMVVlNndnNKX1i2gi dGYxXHNzdGUxODAwMFxhbn NpXGRlZmxhbmcxMDMzXGZ0 bmJqXHVjMVxkZWZmMHtcZm 1mhJGdsVkpCcHwABXle7ta hjWUwdwbdHr2n2jtUKYmTk L6jAOnSVijE2dxfiZlwLQi TYGiVHz1oJ04VOLoyK8lgC HdYHafaeCpYhT6DOtpCQUh WbY6NZVyrUWjGGMkJ4acFR QwXGdyZWVuMFxibHVlMCA7 jVnzy9I9yDZhhGXmbEfhBe LhSxJcDcBGx3WaDTv2iUnj S2DaLLIcUrR3mBVeVTEsZF yuLTBpJNIpcnQ0fM79QVkb bmY2tZErm9Bmw62tl301mQ 1xvURnFRR0YNIaJWMagDIu UMOcCCD5IRSntUKeQ8fsKN DpKG0atvvpNNwvUNfwOZOc tRL3UNIatTYeI6IpESQsOZ psZLSgegv3DwEpXh5xfIRu hRtiOVeqd3lgf4dbiDYuLw f6KTJiVtXpSzilEOwgq0He l1yhKOUtnq2mSPM0bULsdI waz7W9fLYkFHOxpZVnBCFy XH0weNEmUKKdhR4cydqzWK BnYnJkcmhlYWRccGdicmRy Jk3ciMahPMI7RXbjU7tvhJ 9jWsC2CSenY3ttjI6zLEf9 FZtxWLTxsSE8qwM1LRWexS GhM0OcyV5oLDQtHC0rssy5 w3epCWN2YScgXZZyMrY8ff Q3QCSogUOdEAFqgAzuZNdf f421JYH1ByFmVCVuy6LsF5 SvcZogE99lrRapU34eYTTh dZpmkA6niNhnyG0tKgVkXs FpCWrlaUrpBE6fDGLoZ3lu cBFdRVVeASWmD1kdWnFptZ 7rqGrzCHnmstGmQJCyFko0 MTAxnGCjULWkIxu8QOVbZS JmS51brssgQVU3iP4bl8ks e1ZgXNszMDJ7NEFvn26kZR jnooA7DIbeUa69BTeuDIB5 MQpccGFyfX0= COMMENT (test code = y6vfxTOlKIWodMU9TxHjYJ 6754) Far5uus1JjhZJeqFKxNYhj mCSdczHeop89oYJ5nY32QP 1xMZStHbS2CEScdpM5Itq7 IDVbZLEeoDIeW299w1stn4 wwkjHgnPM8sSoaWIYpoqpg PvF8TBuuVCVcinvdFOm6EJ tkDDKjeVC0WGUepAQuM6Ue DTNkWK1stff9PAY5NJlkVR FsQeR1QQHjaZMuAPMojGyx WVyyu158ABW2ZkXyIKZqnz LfkMzyfC2kQzBwUFLIaYCf h5NlS6mkIV5mqPKoS05cqT 8sSXXup9LfVoJfcJtuKZSe jBLbrckvFxTpsn5lQ5sxOY wgZXBpdGhlbGlhbCBjZWxs seyqXEe8YH6sOUJztTRsgx 9waGFnZXMsIGFuZCBhIHNt YEopUKYeh1KtuJBvXkKsM7 O8OAMrdnTtPK9sLVBsf31n IFxwYXJ9 CPT Code(s) (test code i5fiqZVnZMUdjNQ9UdQlDP = 3796) Wqj3qjg2NryDYmlIAfWEjp mZBdckLnhl94zOZ9sQ48YQ 5rJLVlZbH6UXXojsO5Xgz9 AJWuNXPziUCbR401v1kax2 xlahWpbDB2kPgaVCYclvhw BaX2MVpzCQHlnwrvKRx8RE gcSCNluJV6HSHjqMMxS6Oq DSOeVY4dqmp5LQB3CJhdHH OqKtN3MTGxmIKrSYXfxZwj QVijp040DXS6NmFsQFXqdb JrjQqobG7fCnKaSCQ0YPZf OCwgODgzMTJccGFyfQ== CLINICAL DATA (test b2okkDGmQBOijLC1QfCvOP code = 3352) Acy6lmo6UlsEGdjHAwFJfh sAJmjwMnzu08kKX4aJ13AU 3iFQYvLgF2QSLrntI2Xps7 ZCJrDFAmrIRfA203o2tpk0 tjuvRhxLQ5mDenPZUdytae DeD8XZajBBLosmyzNVm0LD qiVTRrnJK8NWLilKPoL6Ng LUOpQW4gcix2QPR7UAdvGX GmOrZ4VKXkdLZmCNFdyRvr NElqj102KZO3MrVdBRZpsr AfkHzriH0vLkRdCTPVqN1p QO2jFGNyDZR0TN8zL8MmjM k2qS3hGOswIM65fF8zMVHr vuSroS5up7qug00cDzSebN HkO3imHIO7 SPECIMEN SOURCE (test w5reiFCcJVLwrZV2SyXvPI code = 3377) Gxv7paz6IezIKilDEqCZlq aZKhpdObxw63gHN7yZ63ZC 2uDYKuHpA3VSMktaM0Nzf4 DPAjUKMmxSRkL591g7unw0 zrywShmRD3xNneLRZcaisb HkJ3VKmsPZGbzpzyXPm0GW znEFAvmLK2YIXypKByQ7Nt LMNhUZ6wogq0LTZ1DHltNN ItUnC6UNYfwSLnHEIsqZdc NElnw100OCI9YfRlVLLmqu PwoXjqeW1eZmJfWUFXWE4W LCBSSUdIVCBVUFBFUiBMT0 JFLCBCQUwgXHBhcn0= GROSS DESCRIPTION (test y3geoHCmEBMxaVS1ZnXjJZ code = 3366) Mcw2gsv0FxvNFjdLPgHGtt oDKluhSmdz08qVV2eT11EQ 9aIEFrYoB8NEFqouL9Lev9 VGYiWLFapKHwQ173u4ish9 kfwwRveOM3gAmtAIDhwfqo ZyH6JRzkIWQiwhwvIBt9WZ xtYXJnbDcyMFxtYXJncjcy MFxtYXJndDcyMFxtYXJnYj fjBExjSAKtCDP3HVixc224 LAZ0KXfqK5jhqU5aLsW2EE fbJ1cndC3kYYo7LJgxCEZp vAT5mpduNGdiMFQzweC4fr whHLflVPTgpGX9uqfxRGhk ZGAiUlF4yodjVUedADDbLI BsYWluXGZzMjAgUmVjZWl2 VXQaUbZufPdjJ6z2x7MmY9 jtyrQeLZLosXU2uJKjKIKf bXBsZTsgcHJlcGFyZWQgMy PmuFNdw5ClelXsIPFnZ85G IFxwYXJ9 MICROSCOPIC DESCRIPTION q1fbdWFdNOVcaXC8CvEdOP (test code = 3371) Xyp9dpg8ZfoVEqlNYpJGll kQQgouFwbh29nHG5iW06JL 4qGSTzKzA2IKVamxU1Fyy7 MAXaDSEkeDVdR492e4kdt3 qjutWexAI2jElnCOShooky MjZ4HSvbIFOvbimnXEx2GB ndBWZzkYA3SWUzyEAmP8Cy EGRcUF8dtsm5LVW4UDdgET ZcFfO8IRZdhDBmAZMzqIxd PCbnd376FOW9DaDyZTHpfu ItjDnzoY1cMaLmRODOIJDy p1OhKYNeLRdaCFJ7 STATEMENT OF ADEQUACY Satisfactory (test code = 2757) SPECIAL STUDIES (test c8zsqAPqSNSjj4ezIFGpoB code = 3376) FuZzEwMzNcZnRuYmpcdWMx IBuchvVoYUddj3CiD3DvOc AwMFxhbnNpXGRlZmxhbmcx VSNlHSQ4qgMrTCUeTEdeII YwKMzjJc2gfNTtnGsvNoCi RDWwj6dsgdHAgpmupQt0u8 reXXZiJsZ5eVEuQDanU3en fwJwpPQbC9NrmQSqjTp8q8 rxIwAiEpI8qSNqGAafJ8ko rtNwmSQyZWUyJRg1gJ33YF FasJ5ewGFmEImcnmHmZzG9 HXmdOKZsKiU6XWRnnSEwUE EbV5efZIHbYQzkWTPwOSne zZHgOAE7mJvdg2S3wMLdnZ QhxIqlGmOeJsDsVxVIc7Lk ORq0gAalU3BjODChUbF6iE QgUGFyYWdyYXBoIEZvbnQ7 xWbiauMyb09szJQoEZUtTU CjAlMdwMfbQQWbNLGCy0Jv dDkqVGW0wXe4lSakIwnlKI V2Hsj0ZM5nxt82hzr9aUcz DJHpcadtSuT2HBstISQebb ixXJs9JUycUKGsmFV5FQUa vDAlJ1QhJAZiSB9ruab8IG A9QSqqJVWvBcI4IFXboUVx QUTrzAxcUIllf833HZY1Qz PsJC0sW2Pze6U1uP3ksFTv INXdaIYyHvAoHTGmqh2koN TcSCgeu8OjUUQ2niV1fVSv uSVaMTIuTT70Gwuvi2LnNe csz1MlE02reEX2WOkeh3ke WZ0fLbS9wnGmKYurz7kwuC 9aMbX5CPltHF3uJB1fFCLs gY8pcmiqQUFlJwXoblxfOP OowJozraRhWg8pmNivPUB7 DFglP4pqoK7uUtV3QXxvF1 hraJ5qYHy5YTowkZT8QLHv iA3lKD6swsxjv3arGIcvHJ fnDMStueH7zaL9APSuhTHu Z4SudG3oDAEpCF4ckxtea2 wqQEY2AMvwAKNdUFV9KvNt IFAzi9Osfmf5SzUiz2VrwF CnKHmiT79ul663CLZjabBs R2ctgMLgxmxxdOVyjvviMX bcmkS2GEDsRZBhSNbnMUQu XGZzMjJcbGFuZzEwMzNcaG ljaFxmMVxkYmNoXGYxXGxv E3atYwXpK9KrBZJjYcJeED wfFFdyuLQfiZYbdRR8vJ5b RM3hORTzjLCnO3TmZKKwdz MltWGdGHR8rXOjvQLdOH3x UKfctHNtm1kwe2PpT2tfvO odpDH7EP5tSLMbOREeXBjd w6FbvB2tKunjgNJfxywyYQ xmczIyXGxhbmcxMDMzXGhp B6ukZjKjGCMjtGapQUwiw2 NoXGYxXGNmMlxmczIyXGx0 cmNoXHBhclxwYXJccGxhaW 6oJsEcDkYtZtehHB9eHTSb O3lzpEUlTKPgRZAxF4qvRo CprD5fbKrsCUacTiMbNbTm LpFBs280ym7eIJToyJYuzq FSzEVjnZ2rFJucLHqfPUds vWLbIQuwe1zqNDRze8e1nB PaGLKxwnOrp2edHNkbbmBt WUWjaEYzbXLgKIOgb29gKO zgoVuhrThpNWNjm7FjhXpv i5DoSxTbFJoek8WoV49ewK JvbCBzbGlkZXMgcnVuIGFs b15hh6myXEQyLuY3cZUciC C7yBFomYEok3VijIveFAHl v7cjROImgs6eudtstGQyx6 GgfE8kfpeiGMvacTAkgxOn JRKog7f7mHPzKNAjJGXpOP rlvMm9ZIFxe574ww3krwF6 eJWoNOK1VHbcSWNnBTRdfu UgZXZhbHVhdGVkXHBsYWlu XGYxXGZzMjJcbGFuZzEwMz NcaGljaFxmMVxkYmNoXGYx BEsuX0oaNxGuC3MyTYPlEl LdeAFcG2frhZHbPXXxJHsc XGYxXGZzMjJcbGFuZzEwMz NcaGljaFxmMVxkYmNoXGYx NDjrC5raZmKwH0RuPNUeJm IgIFxwbGFpblxmMVxmczIy KRtoifnkQUFkCNtqW7ztTd ZdRBQruIyvOVmxg9DoHAIy TWAkDvgrulMhNMi6vfHwNQ BhclxwbGFpblxmMVxmczIy BLvhlbynKOFcGJjqW1rtUw KyXHTyrVdwGLzpq1NxRZXt XGNmMlxmczIyIEltbXVub2 uit6HqZ1rneMsvjJE8IKLv P3ploMSsjZX3UDA3wD2oMR oyjiSzCBXxt6MdHMQhVEJh NrS2vS4tKQX1BhGTvYniJB BsYWluXGYxXGZzMjJcbGFu ZzEwMzNcaGljaFxmMVxkYm BvHBUaJQzxI0ydBySpG8Lz TYXoXyGhvCnxZNsvIFg1Re xwbGFpblxmMVxmczIyXGxh yqzkCGYvHBkwG3ahSqAoLL NvlVreFIecq8TvEMFzLCYg MlxmczIyIHMgTWVkaWNhbC NXXB88QUPsQDCawQwbhR5l zIVJFZPrgcW6n7R9VWovSD LtWMi8EQwcmtIkACSsfB6r GFAtMS5aSEa6zrXzYHQdw5 CyDZ0iEKRyxPKmNGM1VLBx i4LdV9Khi0OuPQFfIUOcuw 2ygdXvMuSWxRHsAQOifm94 UTExKS8bI3adTJGpRCWomg CkdKIdp5CiQARtxFT3oBSz EC0XWtGDq41oUEChJJRVsv GuKGAeeZpxrNC2jqI4hB3c LiBUaGUgRkRBIGhhcyBkZX Nlae8erqFpPBIqYNWjs6Qd fXDiiKYpgeSnX7Vpq7PsVZ Rhce51TQgfhHHcip99QC8d H3Luj5ZlpG9vLCmsGHHea6 ArsNCzvYZeKZDaw2EnH4bz tlthGLggoIUqaW1lYSUsEB o9LIWyi7LoUJAqp8FsLaIo voHwAPQwMPWfGCBanB30PB N1pRadzRmjmlMjKM4rGIVc faImXSYlRWAmqG3eOXawvv IyDNNikrT0e1X1CLmhCGAu jrRwQtczVZJ8yoFinkK5iB AuL4knvynfECtzPBPfk5Vt cF1scTWUxMJgl2AcuWBhdK HHrKRbTW5xkzEaKW8fGSA6 ODggKENMSUEtODgpIGFzIH Q5GHcwTwkmXPB0bmPoVKPm u5WpTMfjE4bgP11gsUxcsM d8zBIqvRkptPUfoWMdZLZs cuJ9r2G7LZMgn3NobpheQL BsYWluXGYyXGZzMjJcbGFu ZzEwMzNcaGljaFxmMlxkYm GuJOBfHDehY1zdXoUjOeDv DicvGRB3eV== Gross assessment was [facility] performed at ([facility], = 2777) Department of Pathology, [address] [place] [id number], Technical component was [facility] performed at ([facility], = 2778) Department of Pathology, [address] [place] [id number], Professional component [facility] was performed at ([facility], code = 2779) Department of Pathology, [address] [place] [id number], [facility] Test Item Value Reference Range Interpretation Comments Case Report (test code Medical Cytology = 104) Report Case: [id number] Authorizing Provider: Tamera Fowler, Collected: 04/14/2021 11:52 AM Ordering Location: [facility] Received: 04/14/2021 02:56 PM Pathologist: Linda See MD Specimen: Lung, Right Upper Lobe DIAGNOSIS (test code = [id number] 3220) FuZzEwMzNcZnRuYmpcdWMx IHtccnRmMVxlcGljOTYwMV toopZrYFZhoDOlC7Nmnbla PSahZB3mFN6enUsweVPrdM ZfKUNhPdVti4ktu310aQEu k1vnRDPNboevxQi7hBhfP0 6bp8U8HoeuI82pyKOoGZN1 TMPmHHHhrYWfMHBnNLE6KP HzhOFtV7xxXUNxTH0httft YPfiRAerZLSjhBD1CFLqnJ GdN9NvBQEjGSowMQAaavr3 TsCpEd8qfQQvcEaaSYkeZW JkXHBsYWluXGZzMjAgTFVO RywgUklHSFQgVVBQRVIgTE 3QOTgeQzKCWHnHWWZGN3FV TlMpOlxwYXIgICAgLSBORU gLCPoQAQHJQ5RoMIMLYZkT KM0DGSqeODBhEEKeMNJWaD LtG69EPTK8RDofKWusLJ4q T7E4kDJiRXRnwaOHssA8mI 3gyKH1rOBwj1ApSW5av10z OYSbDXMcnQacueQsuK1qiQ 6iBMcmSFYrXZRhMNZFeyW8 dURfeZLlurOlwZGnj65zSN QiSHVfPLVxXzqgWJE9d0dp dGYxXHNzdGUxODAwMFxhbn NpXGRlZmxhbmcxMDMzXGZ0 bmJqXHVjMVxkZWZmMHtcZm 3pqCVciSmlJmLcXYMeq6xg szDIkrrbeDe8g6diLADpWs U3dKYtPDbuK5exboZlkCMo PNEkWJh4bA51YIRvlX4hmU IjBOenbcHxZrO9LQmtPQPe IcA0POBgzOMkSBAlP6hnQI QwXGdyZWVuMFxibHVlMCA7 eEyuh4S1tYJzwWAuaVqxEo NmYdVsJiUYr7UjPUi6jIpq C5EhDOKaXfX5iZEvDDJxAN nhUJOhJHNmteF8xM58ABqd whM6tVBkg6Wzt99wh189wD 4ycZDzZPZ9ZOLePUSwgIBw OMKvIBM0CTLbkNNbN5cmEA NeBT6yvkqoVGbdRNnlZZTx sJS1PPVyyFIzM9DgNCFdPI cxDJLyvdd6VlTwGd3pdVTy sVtvLLpfg3llr1uiiMWoGh j6GWZlGiUtOokdCQyav5Pl a9poBPSmrz0bADT1zUQiiP vbs1W2tNWfRIXyfOHzLAYy ON5ccRVbDYQsmM0vwyfwHW BnYnJkcmhlYWRccGdicmRy Jv2prTwiHEP0GCxtF3tfmE 2sCxV7DMnjR4ntlI8rXQd6 DBlzVRYmnKH7nsA5SGZopE OdZ1UboS0nHRTqXD9rsjy9 w2bzJMX3QFieLHDyQpQ9av M4WJQxeCNzXCSdhYvcVTlj d193ERR8LfWtQRUgw9ZkL7 XpdYxsX74aeLgmJ67sRFAr xOnjhQ1geAwnnG8iGbTwMb BwOOsivTkoKC7hKWHqF7gm qLYxAOOgFELhW3nlXzBsyQ 5fqOzwUOupqdYrSCDpHir4 XEKhsNGfMTKvJub7VAGvME JeH61odrdiMDI5sT1el9js e2CfRDueHVJ1DXEgl76tNJ hdlsR1LJztGb98SGcoUMB3 MQpccGFyfX0= COMMENT (test code = z3uevKYcKNNfbLJ5OtXsYE 0151) Pqt1uwo8AazNEqySRoPVut vLNygrUlsi05tWD5uC85GN 0uWNVmIfA8ABPmacL1Prq9 GGGaWDMsdWPxD475d7sec7 chuaMzwQG8kLfpJEKklqkk GpW1RDziRNAjnldeTVe7JZ hsBTIvhOV4AQClmERqV7Zd MBSrSS1djwu1UHH3KTxxJE YuGtK7WSUjqFNkZDBmzHvm BOpua889RUZ1QuPvVOTuly GbxOyroF7nChGxRLGXtYRi m7ZmO4exJC2kbORrY81ftU 3bQRBuu3WeUkMmaPgvYEYe aRZusnzgWzOvuy2qM5ooIP wgZXBpdGhlbGlhbCBjZWxs nitmURy4DO3cUUTwcUCgeq 9waGFnZXMsIGFuZCBhIHNt PYniIWYjq9IacABdAuMdF0 D4CGXbyqYdYX8eTFZig31z IFxwYXJ9 CPT Code(s) (test code i5kytSOdGKAaxCB8LdClQM = 5469) Nkc4kvo3TooIHcxMAeXCsl nITfcgJdxd67xPD7uT25OM 9lMLVcKbW6UGHuabF8Ejf4 BDZxDCApvAMvJ518m7ybj0 kqihHslCK2wFwjEDNtvvhq KaD7HAraIWInnjbkSGz9TV kaLMSyxPO8YXVqfWWfK4Lz EAUjYJ8jdta6YMM7ITivRD GiYlQ7NDIkuWLhIXTtnTpg VEjmx686DNA3OrUiMUXwvb JtzYqafA5dWrHdYOD8RWVo OCwgODgzMTJccGFyfQ== CLINICAL DATA (test p4ikgSFoCORibAM9WvJnQN code = 3355) Wwz2qaj6SgaFCrwXRxARwu fPTdriCwfb27cNX5cY18MZ 1sUEKeDiB3YRXxyoZ0Wop5 JSAoCZHuvTEgG841w5vqm1 jeicArzVD7cSvoJAPlqfjl YnI8YScwPATymusxBUn3TF cpLIWpiXV7PRKsvMYpZ9Qy NJUpBE5xgtx1GYC8NLyeIV AuQyR1GVVukBOmOYNbeGcr VXnna016GAF7HhTwUJJvry LivIanoB0cDsToFYYOsJ8q VT7xVDHnEYU0EU7fX8SbxR e4yS4hMVqjEQ35uU9jTFSv jsIoeE0as1fok06uJbBllL FmQ0pmHKS8 SPECIMEN SOURCE (test n5gznXQnZFXkrYU9LfWsAX code = 3377) Nwk3lne4ThpDEhaCMjPFsi wNHeneScyg04yHG5zD48SC 1bFCUwDzL0QTOxyyF8Ili9 JYIxDLWyjGIzJ098l3acz9 gsxhXzbYU0fQbfUQDynybd AhM9CAamGFNyklcgDJn1YL aeWRNdnTW5DXRnsDOqQ8Oh ONZiON3oiqi8VQI8INfvOJ EhYdU6AAQdjUWrTUVxvEjv TKlef201PFO7PhYwFEQftw GuxIkjtI6pEfBgJZQHPG0T LCBSSUdIVCBVUFBFUiBMT0 JFLCBCQUwgXHBhcn0= GROSS DESCRIPTION (test m0kbtUBvMCJszSQ1XjVvZI code = 3366) Szg3sys4PmrGTwgDJtZOca tZWidnVwms62iST9kU34YF 8gRDEdAeF1DIKemtR8Hon2 KXKvLWAyfRPgL612k0ecw7 bzrvMarNJ8dIzgLYWwyysz RtP3FKflZPNldjdxSSh7WV xtYXJnbDcyMFxtYXJncjcy MFxtYXJndDcyMFxtYXJnYj vgGQgdODKvDZO8HUvbl891 JTB3ETgmU7fvvU2hAoY6US cpK6ynmS4hDQw3JLcaHYBs dGL0otriBIzpTMGndiJ8uu spWJdcWHLytPG7pmtbNJwm VHQtNpC7rnjmGWeqZAVqIM BsYWluXGZzMjAgUmVjZWl2 OAZwGpCdzBtgS5h4o0CnQ8 bydbZgXIMehBZ4aEXkHASp bXBsZTsgcHJlcGFyZWQgMy ThcIJaj3ZzbzZxDBHmK39H IFxwYXJ9 MICROSCOPIC DESCRIPTION n1cksDXnYGPpnWU8TmBbAO (test code = 3371) Eok3jeh6WbtJVquIOdBVzq iXKqwjMepa22yDB3dB09TN 0qCRTsNaU3MMVxrpS9Xzi5 KDUiHWRrkWQzR560y6lbh3 klmnYmkTQ4oWahTOPebhth IvF5GSrwKLAavcgmLUf9YD ykNFKxtZI7XFDocBLsT0Tr GMAxCF5txxw6RLN2AMkgLJ OpBrR1PXJuuPMhGTRybDtj XXgft301FKI8UzJfWFDvws VedLwihH0sJuSiVFMLITYh o8JtZITlRQbqOHM1 STATEMENT OF ADEQUACY Satisfactory (test code = 2757) SPECIAL STUDIES (test c7ahoMAnAWQnx9frZPGmoJ code = 3376) FuZzEwMzNcZnRuYmpcdWMx DCirtbPeOAvxr7ZxU5RgUu AwMFxhbnNpXGRlZmxhbmcx BQUiQIS9ixLaDVOxRJkqHD GyQEczQt1nbNTssHtqDgQh FNRec1rrjrBCbswocTm7t8 knEDMlMhT9hYRbPAbjK1tp dzJegZEpW9CdzHYrlXu4v9 qtCtWcOpC6kGUvGDtoE6rw waJtkAJxSPEiFSd2oK88KK TuyO6ceCVjIHblyzRdGzH0 IChnOBLjFbN0RSRvxDNtDE WqL0wdPYOpOLksRHBcACau vILkNAB3bMjsg9R8sECwhT AyrSbrDbRzEsDyZlJSa4Fs LIq6iVheK7RqMCNmHhV2xL QgUGFyYWdyYXBoIEZvbnQ7 fKlqeyJsa76dfBCsTWVeYB ZeYqMyrYaaHLGrBESNr1Mu aDifSGX1oOi2rAklDqlhUW O9Mdz2GB8ifk96jas5vPnx LQLdhhvlFuQ4UByuTPWywr opFQr4DCraVHNxgWS3LCZj uLUxV7OuMUDbZK3rerv9JO U5NKacVBRxOrW6EIBctGFn AKXffFsbJRonc094PTJ5Lr AvIS9iG1Tbn9Y9rQ7uoDSl HOKyhBPcVlBzXRXggp0hvY NrBIvxf2QjUBM6fkI9tFRy zNZgCBJdQT07Chluc8QuJw osk0NxH75ytWU0BKccg1xv AP3sEmX0fpGvADivp6xzxA 6nBwF7APxfMH1aNL1wKBYt rS9yxcsfTIPzQuLegvzwKL LvcWqgakKfQz7bbTrfCYA0 YCvyD1inaS2kVwJ4QCmqR6 ftcE9aKQj4DAxwvQF9MBJj fY7sJL8uhtdgt6whHWbzXT yiGXOmzbY3pvH5RMZwdNMc M3HyjY1yYEZgMS4ftdbsc0 baVOD3JVbtTMTgMDU4CrGr WWNmm8Wzvjg2MuEmi8XklV ElTUcvC85ir413SGAtfcHg X6oxjGJsxgmjvRYyzivuVV czchE5JGCiXWRdHOxbBITj XGZzMjJcbGFuZzEwMzNcaG ljaFxmMVxkYmNoXGYxXGxv W5buNsWkU3BdODLzAaTsWY fgLJgcvTAvyXAglOK7uO4l RO1uGJYrhROeC5BtOWCkun PwvPBwBBM2kQVctTMlVB8u GZlvxYUhi4vwu2UoU0hukT xtvON2UL6uQHDsMQLeSErn e7JgoB5nHocvjSSxrzklOP xmczIyXGxhbmcxMDMzXGhp A9llUbBpGTBgjPlpXYtcr8 NoXGYxXGNmMlxmczIyXGx0 cmNoXHBhclxwYXJccGxhaW 2rCsXkMsXcWdffTW5lRZXw M1exqZAjAHQhOBGbV8znQy TylB1yyZizJVewQtHcAlDy GbOKt716ht1wBYKuwSPfsw ZUmHCgdP6uTRdxRTafCKuv uPKvWIdps7hfWBLru5b0aQ ByXNAftrMdf2pgQYrmjjMp PACluXSmnZWyEIRlz88tCX ttxNdjhFzbUUIcz1RcbBaw w1HiCpAkFUtzg8MzX85mwY JvbCBzbGlkZXMgcnVuIGFs s17uf2ubJEPkEhF3kYGoiP P6sJOyjSQtc7AakMzeQOZu w8ydTZNpht6ooplcsFUqh2 PkqL0iqqnsWLkzxRKbysHw FQOzc6j6gBIvNEHjDCOwBT ygqPr1NGHdd910bx4ybwD6 yEDyQHM8DTuzLAKoOXTost UgZXZhbHVhdGVkXHBsYWlu XGYxXGZzMjJcbGFuZzEwMz NcaGljaFxmMVxkYmNoXGYx NXpsX3ekQhNfB9LwBUIqIb LqpHTpT3ofjKCcRTSqAUou XGYxXGZzMjJcbGFuZzEwMz NcaGljaFxmMVxkYmNoXGYx WDzfL1nxQyHeA7UxNZHiNf IgIFxwbGFpblxmMVxmczIy HAljtxemOQStCHwrC5ypSk CoBHNbaXojJTjxj8MpHGPe MDPzXgecbrBzQYh0aiNaJR BhclxwbGFpblxmMVxmczIy UZbpzbqrLNKzYCajV4biUp OnVHGtoZdwYMlqy7HzYPJe XGNmMlxmczIyIEltbXVub2 oef5InT2ixbVltcRS8OWKi Q3uiyWGbzFN2XIJ2dB3aCV vgieEfIOWsz4DaKQScXHUn LjY0qA7fNHN1BoXTfPrgZH BsYWluXGYxXGZzMjJcbGFu ZzEwMzNcaGljaFxmMVxkYm FoCEHxPAmvP8oqCdBiE9Lj CZAzZaBtdQosILhrWYr5Ut xwbGFpblxmMVxmczIyXGxh fwfyWCBrOYnbY6jgXsImWZ NboWvcUFlan8EtNEKsQZYr MlxmczIyIHMgTWVkaWNhbC FHMK37CLUaQRSuzJjloQ2v yHKWOFNfcoH7o3L9BDjbQK EyOUe7SScbjyJiLQVeiO5y NRUoBN9lPMj3kqRoDBVet9 RiEI6wZFAlsVOgDMQ7IJDj v5AoS2Fvj7ShCMIqKDRxgn 3dleOrSsLGjXOvDTSape03 ZDZbGH4fR3pzVALoBINqhg XcdHSir6JhXFFjpGJ8yTVa NU9OMmIXa28sOAQgJEAOst DcBGSsdBrluYN6toW7oH4u LiBUaGUgRkRBIGhhcyBkZX Vijg6ugsIvCNNhWKGan8He dEXlcQWjhlNwU0Yzj8GiXN Bavp01UQixoKRhxy50RP2l H7Apd6OlzW1pZMlnLODtc6 RawHOxkMZiSJZhp0VeL5on yelaOEthiKIakU1oFHYwNO m1FPPgt7DxLHFmt0LpUdKy btDtHFGtCHAzPIPrbD38AO Q1lQiqjSnvjiWtDD6eGRVw ioTlNPDcXYZezM0nUNqbqj PnFHInckH7b1C6CLibEWQx krGvWtkfOXS3qyQgrrJ1bU UxE6zffzkzWIrjNWOlm8Au uL9nhRAUfWDwa0EimTUbcA UNeJQbDC4eonMwZA8kDEM9 ODggKENMSUEtODgpIGFzIH Y0CHchKpwcFVK6afUwGILh f3PyJFudK4vxI77gnWlzmG p5fMRetXuxcVDdaYCnVWRg vzE9y0Z8VOUgp5HwuwhaCZ BsYWluXGYyXGZzMjJcbGFu ZzEwMzNcaGljaFxmMlxkYm IdPHIcGPmrI0yqSpRkMdEi NlquBKL0oA== Gross assessment was [facility] performed at ([facility], = 2777) Department of Pathology, [address] [place] [id number], Technical component was [facility] performed at ([facility], = 2778) Department of Pathology, [address] [place] [id number], Professional component [facility] was performed at ([facility], code = 2779) Department of Pathology, [address] [place] [id number], [facility] Test Item Value Reference Range Interpretation Comments Case Report (test code Medical Cytology = 104) Report Case: [id number] Authorizing Provider: Tamera Fowler, Collected: 04/14/2021 11:52 AM Ordering Location: [facility] Received: 04/14/2021 02:56 PM Pathologist: Linda See MD Specimen: Lung, Right Upper Lobe DIAGNOSIS (test code = [id number] 3220) FuZzEwMzNcZnRuYmpcdWMx IHtccnRmMVxlcGljOTYwMV gmdmRiCMConHRxD4Rvuwyw DHtrAJ1zIT6dbTrocRNvuF FjPFNuTyXpg4kjw055rTYu t6djNFXDsjexhMy6nBhcM8 0bv0P9JqnjL44kaNBeRJJ9 RCOqBVPnzPRxBMAaINP2BJ GqzLTpO5nmNDSqYD3kqtfi ZOgqDQjwGINblCY3WKAwwQ TqA3VuRUWvMNauPJHhklf5 HjNxQd6qqIEniAdzUPntJZ JkXHBsYWluXGZzMjAgTFVO RywgUklHSFQgVVBQRVIgTE 8PTXxxEdVSQEjNEWMMN4VP TlMpOlxwYXIgICAgLSBORU fNIEwVFLUKH5BfSXOPXSpS OV0KNFghYQKiCWLhUAXSgD HnB68VAJO5REsnAXuzDE0q P8B6gXCoIKWbxuSOusP4qW 5vhVX0kXYcp6XyZK5ew90h QCRlDBBwkAeiqdClkQ3ooA 6yNZucJXObZRKeVBLBwqX5 bRMwqIHmqqWkdFGxs11mNJ GhLQUfJUEmTpljPIB1g2ux dGYxXHNzdGUxODAwMFxhbn NpXGRlZmxhbmcxMDMzXGZ0 bmJqXHVjMVxkZWZmMHtcZm 5rjZGfsFhbQgAeFGRhv4rx ydQXlrqmuOs4u3ikYBYrFd U0cLWtLOdpQ6udjkBdqFUn QLOtRVi7lO65GMDprF0qbB LuBDbmzkZbYiD3PJawBGKh YxS5THHioWRhQSPqC5grRR QwXGdyZWVuMFxibHVlMCA7 rXjhh5C8aFKwkYNptBvmGk LnYuRsYhVGi1RiFNe9lIxx B8YgSZDhVxY0qNBfCDOkDK heWBErWDIqmjA5zA71JAxs owP4qEAwr4Zcm20ag037jP 5ksDLmGQM6HQMgEBPqvQLr PQTnKQF3YVVccGEnV3fiDJ FfPE1ujjsdZGorLYouDQIh wVO4TSGztFOcW2CsOJTqFZ gyYFPzeuf7JeQwBi8xsLPx vUjaCHsji4sld3iviTOuQq g9QYKyBiQpUntgXKkhn4Ck b6dvNZSarz9pTTV0oNGgfV ale7R3fVQzENFfmCYoNCPj RA3zuMLyJMTvtN0hpsudOR BnYnJkcmhlYWRccGdicmRy Mb7dxQubJXI1JNdsS3wcmT 9uXeC9COazX4lldV1lNKh1 RSmqMMSpiPH4amG6QTVxjT NyY4ChyG1gYPZcIV2jhhd2 p5gxKUB0ROyuEHJlFzX3ch B6MXVjeCPdQLDmeKjbCXls h813PAT7GsHjLBEdv3CnR3 OjaXmdK45swBbcB03sJUSm oXcrwE6zoIlddA9vCtSdVf BgIWljdFibSX8vZLXtI4ni jXJbCQQcQDVmX1pnDbVyxJ 3xyCeyDLnhwlAmBZQiNaf6 KDOizJMzTTQcGrv7EWBmHH NpI45rdtujWLR9aR4vs3op o7WgPJmlORF8SEXiw63aFH jtqmI0SIdnFy94QDikKJP8 MQpccGFyfX0= COMMENT (test code = n1oomMAeIDGvtVU2YaXuRB 4373) Hlr2wdx4QkqAXszZVvYVmi uDJvppIhgr53zKF1dI93CU 9rXXHlYgR8PKIdqzL8Vnd2 ZNOyOGFtxYQnQ231k7syi5 nbldQhyAA9yKcbFLYfstfl SlY3DQqfNWOgmmxhHGc9AP kqJDVypYL5GYVzuGDgG4Si GSNyND0uati7NUY3WAmfRL RfXtP5OVCqkHZbUTDheFkz WCmkf307ZMJ0UhLuQOYvnn UnvAxjvY0iQjYpMRQByOEq g3RhR8vvUO1moALhC79tyD 0zQNYii0CeVcWgkShfACHr qDAjelnzOnUotz8qZ9cfZI wgZXBpdGhlbGlhbCBjZWxs qixjDFi4OW8hEIHkoDSklr 9waGFnZXMsIGFuZCBhIHNt BVayMMCbc6IgeZRzAkQsO5 G8SJTrjsXqRD1vEATyb55i IFxwYXJ9 CPT Code(s) (test code c6kllAVwIEYfoBO2PoNvXL = 3357) Ysz6nwu1FjnUTlwZVaWCfr sXSvetNhiw20sSB1mY04TP 2pWVCeHiV9VKRlecT4Zvb3 PVXjINNauQThU974x9qmi9 gqyaVbdNX3wPilSYOisiii DwS0WEomVGVdbxzqJNh8UC naGQHyjLL9TWPifLWlX7Cx CXCjIE9jcqp3JCU9AHovAE NqUyI3XLDnsNBoXIHueQzy WFqwz914EUM7ZtQqPRJzce UnhGffmL9bOeYiZZX9PXEc OCwgODgzMTJccGFyfQ== CLINICAL DATA (test i5eyiJLyLLWaqYS2YyFkCI code = 3355) Peu3qmg6NunFLmbQLfRDnp lOSrfnPlqi55iNF2gN96OT 5lXVYyOnX8RKAnmyM3Kaf0 MTReFLJwyVHbN423q8gur5 yizyXufCU9mUhfTYBdewon PwQ9JNkbEWYioqcmSUn6QT adSFIjbRC0DOAgxFLhY6As JKHvMO1eyhm9OOH1YKhnUV KqYzN0HUKeuFRmELAxfElr FTsii359XCZ5DrQaLWGdnc TddVdboC0bLgKrDQVFeB1g FD1wBJLoTQR4YX6mS1LlvT s7gM1lIEdjKF76tN0cOQRu zcEwqB5rf8uuw22bDnUigG BuF4qtXIN9 SPECIMEN SOURCE (test s7rerINtSHXkzOU1GkJzEW code = 3377) Gwv3xwx3KukSQlmNFvZQsx uONfigMfqn51uMA5mX76LC 4mBMJzHtF2FKKmolB5Wth4 AMEsIXEjsDXwI549g4nzx8 owpdElpUN1pKieZDHbvxrv IxE5NRqfFSNuzzhoYPg7VD gzCDEnpLH9YLLduSRvN9Dd TUGpMI1pihk6PMP2YWxpEF GfZxD4SEVebBKwDWTdoNmg GSboe631BLC0RbXaMTXpds WjdZniaL7tRwNqBKRJTW7Z LCBSSUdIVCBVUFBFUiBMT0 JFLCBCQUwgXHBhcn0= GROSS DESCRIPTION (test a3sexMGyPXRbyVC6RzEiZI code = 3366) Tue4nla1MnrPMicIThDJab yXZqdaNnky57vOW0xI21LW 2hPDBcJpX7AISzauS9Aap9 UFBsKLEmsWTpX063b6two6 iyqyZgxQB2sUxnOGLolpdb CoK1FYheHORsmhepXEw8ZU xtYXJnbDcyMFxtYXJncjcy MFxtYXJndDcyMFxtYXJnYj ulMEpzJVDgBKU1MEfwv259 LGF2QQpgH0kxhA7jYlB2JL smC6zupH4tBJh0BRrjGXGk dSX2nrqjYBdnBDToeuA7fn tvWOxpFHTlqVG7szhdANzz ZGQhMxR1dddxOHdqYYTfQU BsYWluXGZzMjAgUmVjZWl2 DCKnXfLtbHwiK7d1v7UrN4 onwlXjTVNeeAW4wSUhTVPt bXBsZTsgcHJlcGFyZWQgMy AnkFZse3MlwvYwCIDaO91K IFxwYXJ9 MICROSCOPIC DESCRIPTION h7kesOGxKESpkQU5DxKtJH (test code = 3371) Pbt8grp0QhjCTwcKCkJHqn fJDqinEwsl14gHW2wW19RQ 9kDBVmGsU7RKXyttF9Ias9 YRZrAHHmgYRjQ228o3cjn3 bplnRcqHX5sNflGCRrpnye VvG9LHokQDBnadpwUYs6KJ wpSLJkgHR8CVKzxBDbQ3Xf AVSdEC3beds3AUZ7FOhtYF LvDnE3VHSjbKCpZFYvmPbo NYsud132VFA5XoLrHQYvkg GnvLcsxB3nOvUiPPYKLDFe c0KmYEYfPDrlLLB6 STATEMENT OF ADEQUACY Satisfactory (test code = 2757) SPECIAL STUDIES (test z8znySKpETXvz9nqIMLutR code = 3376) FuZzEwMzNcZnRuYmpcdWMx VYxylnXlTXqcl7NmN6GnVo AwMFxhbnNpXGRlZmxhbmcx COJxVKZ3aiWjUVOrBSyiVX NrOMypPi5iyJSkgUaoEkGr OSTig5qlbvHEqrianFs3w3 beDIIiOhO2iWUzEGfsS4pm rsIplPLcK7FzpWAnnXu8d5 ynLvPjKnK0xQZkLCriR2mh baOaqYKtEOWgPPf7rD99MV OgoK6yiUHjWCxpjlNeQaK8 DWslSQLkTxB2OWEkkYCeNR RbT5dwYUOpOTqfSAUvOQpp xAUsMUI8nXosi2S6eOSpeA EdtSujOpNdJmThKlXVn3Ww MOy9kUumV5HoSODmXkN9rL QgUGFyYWdyYXBoIEZvbnQ7 hZfsexYgo69cgKCwNQIoDX ElRuIrxKnkRWRhLYCMp3Ka hJfrQYI7sZr9vPtvGtpoQC Y2Fig1ZD6rhx04enw5zSvm BLYdiwpgYvM6XLsuTEWqlu ksDPi9ZNzcTJDshQF2IADi eVBzL1ErNXZuJX2cfmv3ZH X2VLinQNDmJqD6GZCqxHRe TDWhsObeVDgzw973YZE4Cb SkYR1mS0Uyx3A5tY2xeBKy CVVhcPSbHpTtXTXfln8fqM LkAUpgq3FbKQL3rzM2aFTt oGRjXJItQQ97Xwmdi5SnJi gyd3AyP80fjIM2DXdzm2bs MY6xMwO6hvKqTGzic6fauC 9uEjU2SNpfFF8eTX3fMZVi kA9iabmjIQDuHhEiwgprSD OceLsrmcPjKd6gqXonESQ2 VMocN7plvQ2sYmM8NVvxX9 zmxH6tXRq3BGjybSY0EFNr lR1aHW9pzwcau1yzNFzlEH dnFCFvozR1tiI4ZTIkdMMt K7ZycL6iWKZrAS7fnucrq3 kfHGL9KNyfSZLgCRP4SsKk RCOop5Avtqm5NjNwp6GxaI TzEFpsV71zq497HAAjtmEv M1hmhYBagfkvyPZilyweRD bjycI9KDQgMKYnDTzvZNEz XGZzMjJcbGFuZzEwMzNcaG ljaFxmMVxkYmNoXGYxXGxv D6xlRgOwM0HlPYUtYlIyWT nnZRpkuHQzgIAcvPE2cS7f QB7uKCTnePSnV4EpOLMnlc DezHFdSFY3yOGbbUKhXQ2e DNwyoGWwc4jpt2CeD7kviS ukiEC2WR6ePNXiWCEvQWxs h0JbiG0cAumluCJlhuqlPH xmczIyXGxhbmcxMDMzXGhp U6mcMwSjJGXvlNqoJRhlq3 NoXGYxXGNmMlxmczIyXGx0 cmNoXHBhclxwYXJccGxhaW 2bCbIuYrIwVixbJG0tUBXh Y0merAJmEEByOQBmK1hkCf HdcT6vtKijRHdsCsZlMyJw QbSNz085pg2dUKRjkICpdt DDtHYilR9qPBmmGMbmDFeo eYSiHVmlg5owULRao6d5yZ FyQXBxglBwp8zxOPtclyYe VYTcqKEjdOWuYDQis07cJD nvlBzsvKtgOJBub9RddBrv y3AbDaAnYNjzd5JwX05dcY JvbCBzbGlkZXMgcnVuIGFs q52ko2tpACJlMxA1hPLqyA B3lUWqiHWiy9LyjQrgKRZw r2kcBUEynk4euyvfyYSwh7 LzpM4jxsheSSmqeXGzivXf FKHhc3t1mLKvSVPdXVXfWP yhnSz3YIJnp765rp5ttwQ5 pUFmTSR8JFsjVPTnVEHaor UgZXZhbHVhdGVkXHBsYWlu XGYxXGZzMjJcbGFuZzEwMz NcaGljaFxmMVxkYmNoXGYx YXgyF5bzDzGsT5HdYFCrZi EcsJBbZ3ihbDFwOMOwUSpa XGYxXGZzMjJcbGFuZzEwMz NcaGljaFxmMVxkYmNoXGYx OXikA0vaYdJvN0HsKMFuUc IgIFxwbGFpblxmMVxmczIy QAygupetHVXxKXjbR9lcWo ZoOIOkzHgiAGpdg9JjJMNa MFEiGfaotcQlDEs7yeJhLP BhclxwbGFpblxmMVxmczIy AUplicovOGKhLEylR3dkIp FjLLDdaXhaYKqus9HkJBMv XGNmMlxmczIyIEltbXVub2 gbq3AhH4dciKoslPR6VXJo B1kpmTDziTC7ARH8mO6iRQ xibcPqCHWej5SeNREwSCYo FmI4vF9lAFL7YsKOqWwcHL BsYWluXGYxXGZzMjJcbGFu ZzEwMzNcaGljaFxmMVxkYm EeCUWgEKanK8gjUeQwO4Ie QFTsXpIqyGmcVQrlYZe5Oa xwbGFpblxmMVxmczIyXGxh rwufNSKuGZxsZ2ikSdJnRR SrjRigREnsm0DqEXYtWADu MlxmczIyIHMgTWVkaWNhbC XQUU81JUKpFQDocVtnmB3q wRXOWBPvkqQ5o6H8QPeeQG BtEJg2QOkecoUbMTKlfX9w UPCfUU8zZKh8emUmTDDfb1 FmVE8xIOEsqYWwCDV7NNKp z9TgV4Eej6ZnCZNoKOZugt 5rdoQxKrURsSDpZQFlbn23 LRVdNG7gR6smVCFwQUWuiz XnlTKyz2HpOZXqyQT4aBQt PX6TKyBKy01bRFTlLLFWek SsTJIbpZnqdYP7oyU7xT4o LiBUaGUgRkRBIGhhcyBkZX Bike9fsrJcJEQhWSHrz4Xn uVEezHMjwvYcS7Let3InZW Sncm46LRernDOine62KF1s J0See0FcaG1fYUvsHSHxg2 MvgBAmjGEnFBMai7KpI2rd qvnwNSrzdNOdmP9jRWGjPI a7WXOta3GuVLNpr7FpRrUn mfAhKBMgWVSjLEQjuK12VE O2tZnfhJorxlZdKZ9xHYLe chHyVCSmRDVgbT1rRGsklr ElWSSsezQ4m3A4VWlkTOJi huTyPwxzZRD4szHcwfA2yU QgW6vwvohjGNfuEKLkh2Dt oL5paYMDtNRxe2ChfCQbmP IOcJYvUV0zzjLpTK4lFLM7 ODggKENMSUEtODgpIGFzIH Y1YUceMjrbEID4mvVvIDUx r9UiWJkfV0apJ62cqBjywY c7eOUdyQdxyMQxhEVyZTFb yxS5b0D6MZEeb6BhrwgsCI BsYWluXGYyXGZzMjJcbGFu ZzEwMzNcaGljaFxmMlxkYm GaGNLwJOerL7jqDaDnWlYq XdpnGDR0zD== Gross assessment was [facility] performed at ([facility], = 2777) Department of Pathology, [address] [place] [address], Technical component was [facility] performed at ([facility], = 2778) Department of Pathology, [address] [place] [id number], Professional component [facility] was performed at ([facility], code = 2779) Department of Pathology, [address] [place], [place] [id number], [facility]36 Test Item Value Reference Range Interpretation Comments Case Report (test code Medical Cytology = 104) Report Case: [id number] Authorizing Provider: Tamera Fowler, Collected: 04/14/2021 11:52 AM Ordering Location: [facility] Received: 04/14/2021 02:56 PM Pathologist: Linda See MD Specimen: Lung, Right Upper Lobe DIAGNOSIS (test code = [id number] 3220) FuZzEwMzNcZnRuYmpcdWMx IHtccnRmMVxlcGljOTYwMV dwzkKtQFVweWUnB4Letaxw QVuyMP5sHB7dxYyysIVrnJ EjKJQiHzHbp1bpj453qMWy z9deUMMDwfhruWz4hWukZ7 9yt2Z1YawqV54liDTsZUZ1 HOCiEAAiqPPbNHCdXTV1PG JveEEdO4bkBLQpPN5rjbmf YAznWTyfWDVntEQ2UUIgvF DsE7BjKHDwVIprDMVqhby7 AgQcQu2vnIDhwNleKCjxCX JkXHBsYWluXGZzMjAgTFVO RywgUklHSFQgVVBQRVIgTE 5FIFdyCdAJLOsHMVHVW9OU TlMpOlxwYXIgICAgLSBORU sWNTzKTDZMA9ZxRTCICPrT TN1SFVkdKPQxXQNsTXVHbZ CnM62SIFM3PZqdNJkjWT6d G4L7aYLsGAZxqfWDqzL5zU 3fzFR7lYEwk2QgWD3tb40v NSYbPYTnkMeikgXixT0weY 3bYPdrTVEtWFDbXVKImsO6 cVWurDPcskFskEXih64vLF MiYRJbPZRcWhvbKGS0j0ea dGYxXHNzdGUxODAwMFxhbn NpXGRlZmxhbmcxMDMzXGZ0 bmJqXHVjMVxkZWZmMHtcZm 4roLEzuWqwZgCpMYVsq4bl dsEYyqdfhYm6c2irUHKkIq N1aNQkDQtxY7uglySspGCj GIRvAOm8mY97OTVogI0vqF BcCAoxcfKvAfG9WCvoDPBm UqN0YGCemUKaDMWlD7pqYR QwXGdyZWVuMFxibHVlMCA7 kDvrc9N4fQRwzFSqrVjhAc VwBwEbRqKQx6IgXDs3zOtg K6VnMWOvXdQ3eVMvGJMxWE bpIIGqCOJztuM3hZ61GNkg xrF8hWQtz8Kkl51qs324yP 9rdEHqMJB0FQYpYIPrfLSc ZRWyYVD3NPUhdIHaW9jkZJ DgPE3wjsnaYGcpSDfeCPWu dMP0AYPwiFPaX0XyYKUxCG dhZUFrark2AnIaIf6kkQFz cOscRNltj1owh8ynqIWiOu b6OMMxZzNzYyazOVvif1Ia m7jpQOSzmn8xTES9dVYkkK zfz2C6zHKpRIUndBOnCCAg TX7pdGLuBXGftK8voiweNW BnYnJkcmhlYWRccGdicmRy Ij8idSalBSO6NXfqJ2ogwW 5vPpQ4WUhkG2zwgH2rQGb8 YXfyRURzjPJ7axY7MILxvI PjG5KvlM1lOHDvZF0ghif2 u8dxAEM1VQexJQIaHzX1vp P5JKCnjWCxMMJmlWudFQnq m127XEL6TiWaIOHrw8NyC7 DsnStuC87raBnkU60yCCNu sFvbfE3qoLxmwQ3gBdLjSn UdZNastMnbXT7tCGPzD4ik pKWhRWRuXBVjK1ruQfEfqF 1gkPguYOphjkJvBSJhOqo8 EWDinMPiRKTcNyt4VPEqMX WqO38tjxlqHDS4yH1ok3kr x5GfYJliNGE1YPXpl49nTQ mdrsC7YHunWz27RNqxYJU6 MQpccGFyfX0= COMMENT (test code = b8yntICtGENppRH7BuNwPJ 7916) Uez8amz5OzdOCosHXtJLph tBZnfgYloc06kCY4vL51VX 7tMXOfPuI5ACFitzJ8Jdf3 VUGxPLBqjAOiM405c8gex1 yvwcPqvGX0kZusYVPkwuzq YvU8WPlnKBAnbgepIJe5IY ydWUYftPM2XWRiuKGsZ7Fh CULgUR6mihw3HPY1IYziTC IoXaI4HLGheZXcNCLrhHpq FUnyc745ZCT6SyFnQLPfyj JjsTcmzQ1iDjExNMZZwUHs b4VgY1msPZ0frYCxP17coL 0nBUZlc9ZvOlXdqZtbEVYj aTXcawvfIwXgyw3mV5ffYW wgZXBpdGhlbGlhbCBjZWxs sighYSg5GU9pNNCshKJjwg 9waGFnZXMsIGFuZCBhIHNt UYkxGHBwi9YeuZWkLnGkZ8 V4HDYxfoCeUV5kWTWdb76o IFxwYXJ9 CPT Code(s) (test code i0vkkBSzBXUzhKL7ViEtQR = 4088) Dgl7fwq5YgqOLrdIYeONvd hVIcnxSflr25nVK0sW83LV 2pOWLjCmH2WCAtdzN5Ume4 PCIsTACjlRIhL336b0kbo6 ekkmXsrBR4nHflDMUmbrzi KfT3GMyyFZUapewwKXo9BE brUHMslNW9NHUldNRfB4Qe JRIlBH3cefi7NVV3AVfmJX XhIiN3PCBztZJbEVXhcKux KRfex981UQB8IuLrMTMojw OkbRqdjE3eIbCxUWJ9SNTb OCwgODgzMTJccGFyfQ== CLINICAL DATA (test y9aguXGaRCRglAP5UpWgWA code = 3359) Omi2ovy5BabZTbmRBbNBkz nDSfwuBqro29pXX6dI53IN 2tRXNnPfI3FZPtzpA4Vwz9 ODRpGTAylTYaW252k1yvx1 uvrjUfsAT2wKhbAOFhjcpu YtZ7JOwjCZEqfkavFXq4NL lhSCXszUY0OBRayWTkQ7Tb QYLoYL9xrkg9PQZ9EPrsJP NrMrI1EOOkpXZkRJDfpNoy RPjue619LXP9XwSnMNSrlg GlnFajuL0sMjHhMJAFaJ1x KW7wVSCvCPE5NV6pV1VswR c4qN6wPJxoAD54mV2zOTIl kgKdcH5wf0ock44vVwPntX MoR5htYCM5 SPECIMEN SOURCE (test y0rdzRBaEXLvgFM6KiCiSL code = 3377) Tac5hdi8SqyZGqbYZlWXkr vIRohdMooj83pJJ8aL95KC 2kLAUzOuH8BFRmonZ9Zzj2 JUCsIALqpLTeU601p7yrn9 shqnHglLX2tGgsPWAfztdj FiW2WJuoSGOcfdvyJFt9EZ ppHJFwuTG8ICDeqIAxW5Pk THGcPU9ltqc1HZJ4XZmwZO XfKbS6PXCleJQzEBSsgUso YUjoc733VCQ7RgBhIKDaid TqcJhwnJ3tDbRcHJGIAU7A LCBSSUdIVCBVUFBFUiBMT0 JFLCBCQUwgXHBhcn0= GROSS DESCRIPTION (test u5gotUCvBYKdaKD7DxEcAH code = 3366) Usm9eww4ZsoVOajWOjARko pNVqbbUqxo73lYY2bG47PP 8nUBDpXrG2GPTngmZ9Wxl6 YUBiCMJxjBNsS455b3krd4 hfxwNspTQ5zEtdGQXelagt QwS7EPazZWUytxbvTAc3SR xtYXJnbDcyMFxtYXJncjcy MFxtYXJndDcyMFxtYXJnYj cqHVbhCDCvSEM7QIjdr824 VUY1XOqvX6wmiI5qVwH5CB gpH7rztL4wRFa1EJkxBGJr aHC2fkulINwgYDHqxuR1td pcLCleYDYmzPD9uymrAXqr FRPvOqX5kkeaVPxoJPWvLI BsYWluXGZzMjAgUmVjZWl2 NOIjZtCybDocW6f9x8SxZ2 dmnoFeEDEbkNC9yIGwGDEu bXBsZTsgcHJlcGFyZWQgMy MokMQll4NryjQmDLJpG59O IFxwYXJ9 MICROSCOPIC DESCRIPTION c5lavFLxIGMxlMK6VxZlZF (test code = 3371) Iep1kne8WcuVHkgVHiNVen oPFdjpQnmz78fNK5lI86RX 3sYXGiEmA1TNXijeE3Ztk1 SMPfHDMluMDdS176i6usz6 bhjxUyzWT3bRoxNTMhjwsz SeW4REluREGbxprxMOl5RC vfRWKevZQ9JWHxhXLrZ4Ec GRHcRH7yhsz4AUQ6DQzdER GfOkT7LEDnbHZbBOFrcGjf MPdri773LSN7MiKxXVApwk OzuJywkK5mHmRkPFOHADXg d1RdKJUoVMfrAUQ2 STATEMENT OF ADEQUACY Satisfactory (test code = 2757) SPECIAL STUDIES (test z0lkaBUpHBFpe9fjFTVykT code = 3376) FuZzEwMzNcZnRuYmpcdWMx CDttxgJtCClif7FbV9AbTw AwMFxhbnNpXGRlZmxhbmcx AXDfECI2qzMzFLQqRButVP ZbLKtcOt5toNDvhSarSdZo EMZaq8tumpKDpmvbdBz2o4 qeJKFlErB9fHAsKHehW1xp jtXbuNDaA6UljTZvsGn3i3 cpNgJwIvE2qXPcGMoyK4iq anWqoUVpIIGkVKr4zN14ZU GnvO4ndXAzINgrpwPsCdM3 KXdqZZFoEpW5CLXenUQjMF VsL5wsAAVkLRujUSOfZTfz oSEpHKF6wRozd7E5yGWbfI GdzBcwYeXqAhWvBgDZf3Fm WOi6fStuG0EgVOXbWjX7hC QgUGFyYWdyYXBoIEZvbnQ7 sSduguNtt68rwDAcQGPjHY JpAfDixTfrVMJvGRHMk9Ep dDjiPCO9fJo2kIyjRyvgAZ A6Ywj5BP7sjw32avw7zQqa XSJfkmbuTgI5WIveNCOlsg spPPk4TUljYQGniKL9VYOm cGKjD8CuQFWfRZ1eqlh5SP A5HGqnQYHlSzZ9JDIfgAFf EPTkgJbjCLyjw388PBB0Ri DzOG1iP6Sjw8Z0jG4gdCSy OLKlaMLyXnUnWZTsmw8qqB RdQDdld2DjRYI0vbS0oKVh vJTjZIChNV67Jfxpu4IrXi dbd4XtL27lwVZ0QTwzl2kp SG6dOrQ0hyIdRPbif7rgfK 9bWwD1RCjfRE5qRV4cVNSx nL1llkmxHKSjSlGkvhqiMB UjgVxlrsNtKb4coLfeJXJ5 BXseM8bhnN9jQlY7FSozM8 suuZ5pPXr7DElvaML4LWZh tZ5wWW0xjadxq8jqNXawEZ nlVPBlpdF2ceM2GSEycWSn T1JfcR6gDCKsXV4jkjuib7 nzLNV8AQqtEDMpCGQ9NjZl RUTzv3Qwgdc4AwZpb3ZixW XuEZnbK97yo226ZIGqtnWu B6avvIXlspwfaXUhkwsoVA sgruD2DNFsIEQoSHvaBDZl XGZzMjJcbGFuZzEwMzNcaG ljaFxmMVxkYmNoXGYxXGxv D1qtPyZuI3XtARRdRaAoCM mzLDgndODwzZUobAJ8dH2i KJ5tICZrpFOtV4YzXARhud ZwbLVvXLT3vTDsoUGaRY1e MVmpnDQag6eqs6FjB6rkkE sylKI0UF1lDDPcRLVmDFqn b1DlyA8cTgruuMMdzdmkET xmczIyXGxhbmcxMDMzXGhp K9ftBxWrZCMecBxvOZyjk8 NoXGYxXGNmMlxmczIyXGx0 cmNoXHBhclxwYXJccGxhaW 6oPwKrAnDlDcljQM7uISTc E6lqjGMkFNPaCLYeI5weFd YhzL3juRafRGwzTyCtJtVs WvRIb791en6yLYGnyMWzgr UDbANbyC9lAIahABopGJnp cFMrRTgkl9jbOSRnh2a7qV RmTMAindInn1zfJXcoxnAs GMCqlNOjnOPgTZXoc09pMC tvpJliyHilRMLkl5DgqSlb o0HuLsChZEtte3HzR26gnH JvbCBzbGlkZXMgcnVuIGFs t31vd4dlJCTiYhO9dGZyhF N1gNEjxYEqm9TqhJkfWWNu l2sqXYNfje8kkhctoUZhw7 EwmW0bndctWCoixQHewsQe UKNql7u2xIGdLHElXFKjXB oebHf4LLIue490xd6jcbO2 yEWeBBR2XVawQCQfNTAsal UgZXZhbHVhdGVkXHBsYWlu XGYxXGZzMjJcbGFuZzEwMz NcaGljaFxmMVxkYmNoXGYx BUezW3niLwDqA7JsUUWfLc LrjIJaL8kiwFQqTNDcBUdn XGYxXGZzMjJcbGFuZzEwMz NcaGljaFxmMVxkYmNoXGYx IGwdE4zbAnQrQ7TzMCWmIx IgIFxwbGFpblxmMVxmczIy WNxtwndgSFPpPTaoN9omSn FcZMYyvAgnXFziw5CyUGVd NDDrYkrcokHkVQe6awBpYH BhclxwbGFpblxmMVxmczIy SKrbplayRLIpFQbiC3pjFo XrCBKanLbuGSaqh2AiGCKk XGNmMlxmczIyIEltbXVub2 wwc3OwG8ptiDxgqUL3VNDo B7vspUNmcAL5GHS0bQ3dDL qpbjBjCCIna8QrSXAvGJBw ZcG8yL2mKXC3KgMUgPluFS BsYWluXGYxXGZzMjJcbGFu ZzEwMzNcaGljaFxmMVxkYm NuFLUnRSmaD8gzPvGlI8Ao UZDeWwFqrFwyYCeqHTo2Mq xwbGFpblxmMVxmczIyXGxh mkztRECwDZtdP6deKaNcLX KtlLijFGxva2OpFGChLKYm MlxmczIyIHMgTWVkaWNhbC IXLP48KKMfXXGnlPpnlI6b cCPRPFMrppI6c7L0ZGqsAB PsVPk8QZaxxbBlPSAwqZ6l YJKcRB9vXMw3cqKvZOIfd0 JiWL3cGFJvaKQiWIN3BTEg k5NbL1Pjp1KeUNObYONnwz 5tppJhTqTAzRJtOBMpfo76 HFLaUL3wO7ibWTDmDDSlqy FjqBVcs2HvSGBmiTH4tYYj JG9BIxVHh54hBLXvRGZOnc WrGTTmqQgpjYD8obA2lS6c LiBUaGUgRkRBIGhhcyBkZX Mbjv2rpcJtMOHeNQXic7Ov vHYztEKlvvZyN5Mdb5CxDQ Fnou98NZiidEFopt54HX5g F0Rrk3HmaG7kHPpwITKgv7 CylZOxbOFhHQIod2YdG1ug cietDRxxrEEavN8iWIJfWY s2ZYCdm8UaSESfl5YwQtQx opWsTKUsWALvVABqaK60VZ B0yDjhpQyewkOiSP8wFHBo dlHbMUZiTKGorK7qIUnydk SjYHUujvM1l5X0ZJarVXLg zfAvYvkvJJZ1nqFoycH5fV JxY3mqcclsNAzbPBBsm4Go vB6gfPWRtZVxj2SpeCDepU NPjMOhOP4zbeTeAS3nGNM6 ODggKENMSUEtODgpIGFzIH R2ZKzbHyztUXC0hxBkGKXt l5PfJQdhZ9ozP70kiYfomV n4qNJeqFkegWJneLWeDZJf cxJ4h9X8KOJkt6YkgcaoXF BsYWluXGYyXGZzMjJcbGFu ZzEwMzNcaGljaFxmMlxkYm HcYBQuCSbnM1uiHrUzJuZt VjjrLUA1kT== Gross assessment was [facility] performed at ([facility], = 2777) Department of Pathology, [address] [place] [id number], Technical component was [facility] performed at ([facility], = 2778) Department of Pathology, [address] [place] [address], Professional component [facility] was performed at ([facility], code = 2779) Department of Pathology, [address] [place] [address], [facility]:35:36Medical Cytology Report Case: [id number] Authorizing Provider: Tamera Fowler, Collected: 11:52 AM Ordering Location: [facility] Received: 04/14/2021 02:56 PM Pathologist: Linda See MD Specimen: Lung, Right Upper Lobe LUNG, RIGHT UPPER LOBE, BAL (CYTOSPINS): - NEGATIVE FOR MALIGNANCY The GMS stain is negative for Pneumocystis organisms and other fungi. No viral inclusions are seen. Signing Pathologist Direct Phone Line: [phone] signed by Linda See MD on 04/15/2021 at 2:35 PMThe specimen is composed of benign appearing bronchial epithelial cells, alveolar macrophages, and a small amount of acute inflammation. 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 It has not been cleared or approved by the U.S. Food and Drug Administration. The FDA has determined that such clearance or approval is not necessary. The test is used for clinical purposes. It should not beregarded as investigational or for research. This laboratory is certified under the Clinical Laboratory Improvement Amendments of 1988 (CLIA-88) as qualified to perform high complexity clinical laboratory testing.[facility], Department of Pathology, [address] [place] [address], [facility], [address] [place] [address], [facility], [facility] of [facility], [address] [place] [address], MBEZ/CONCENTRATION [id number] 11:38:11 Test Item Value Reference Range Interpretation Comments CONCENTRATION CHARGED (BEAKER) (test Done code = 2657) SPIN/CONCENTRATION [id number] 11:37:58 Test Item Value Reference Range Interpretation Comments Concentration charged (test code = Done 2657) [facility] [id number] 11:37:58 Test Item Value Reference Range Interpretation Comments Concentration charged (test code = Done 2657) [facility] [id number] 11:37:58 Test Item Value Reference Range Interpretation Comments Concentration charged (test code = Done 2657) [facility] [id number] 11:37:58 Test Item Value Reference Range Interpretation Comments Concentration charged (test code = Done 2657) [facility] [id number] 11:37:58 Test Item Value Reference Range Interpretation Comments Concentration charged (test code = Done 2657) [facility] [id number] 11:37:58 Test Item Value Reference Range Interpretation Comments Concentration charged (test code = Done 2657) [facility] [id number] 11:37:58 Test Item Value Reference Range Interpretation Comments CONCENTRATION CHARGED (BEAKER) (test Done code = 2657) Flow Cytometry [id number] 09:02:27 Test Item Value Reference Range Interpretation Comments Flow Cytometry (test code See Separate Report = 2758) Case # (test code = 2759) [id number] [facility] [id number] 09:02:27 Test Item Value Reference Range Interpretation Comments Flow Cytometry (test code See Separate Report = 2758) Case # (test code = 2759) [id number] [facility] [id number] 09:02:27 Test Item Value Reference Range Interpretation Comments Flow Cytometry (test code See Separate Report = 2758) Case # (test code = 2759) [facility]2- [facility] [id number] 09:02:27 Test Item Value Reference Range Interpretation Comments Flow Cytometry (test code See Separate Report = 2758) Case # (test code = 2759) [id number] [facility] [id number] 09:02:27 Test Item Value Reference Range Interpretation Comments Flow Cytometry (test code See Separate Report = 2758) Case # (test code = 2759) [id number] [facility] [id number] 09:02:27 Test Item Value Reference Range Interpretation Comments Flow Cytometry (test code See Separate Report = 2758) Case # (test code = 2759) [id number] [facility] [id number] 09:02:27 Test Item Value Reference Range Interpretation Comments FLOW CYTOMETRY RESULT See Separate Report POINTER (BEAKER) (test code = 2758) FLOW CYTOMETRY AP CASE # [id number] (BEAKER) (test code = 2759) Flow [id number] 08:38:29 Test Item Value Reference Range Interpretation Comments Case Report (test code = Flow Cytometry 104) Report Case: [id number] Authorizing Provider: Tamera Fowler, Collected: 04/14/2021 11:50 AM Ordering Location: [facility] Received: 04/14/2021 03:20 PM Pathologist: Codie Maldonado MD Specimen: Other Flow Interpretation (test k1pwzQCuMUJaaLC3JrYt code = 3364) BIEcx3krt8AgvHQwtFUt LVecuEYuymCfdj75rUJ6 fE38SD6oVPMsTwD0AORm faD0Afl4EESpGDGbrYQu C026q7jqa2vqmaXvxQN2 rRfeKKEdyrteJdI8MGfb JGPxpcyqLKj8EOkaOZFk vYS1OOAecVQzP4XgTUHx VV5dqaf8OBP8UQpaKDAa JiW9LTQswJNtWTQzwXzw CKjyh322AAQ9KdAuKABu yxXecOoxvC7lNpKnKPYB Ug2BQ5iVZQxRQN4VHDUn ZUVVUGzAQQKKIC1EPGWE OA7UETQRNQeqmRRkTK4h TElNSVRFRCBTVFVEWSBE JSGhHM8iCOYOC9LPAXyn UkVEVUNFRCBDRUxMIFZJ AFIYBFxVDHMnQ0RROGWC JT5NElVnUSLfqgFlUH5C DW9LOf4BUQLTJkMHAKPV ULpyZI0TMNbSGSoNGtBU REVOVElGSUVEXHBhciAt CZ0VSWKBVZVJGQ3ITYUw M6EDOSLUI5GZXBIEFM6A AZlZNV1ZFUPDLUOinXJl fQ== Flow Interpretation n4hebYUwVVOmkSW8DjIy Comment (test code = IXTxt1nqw4MmdSTjqHGl 3365) HRydxZWhdcVfyd34vKQ1 uX41PQ1iWKClBqW5HFPc mcL8Cvn2SLUiRCDhgMFn B841d3tae7koanWzfKZ4 cDreTYRvmbguLnL3UDby KTOxnkywPEp0AAbbUPUs eAN0UMXodCBgR3OqDSIi SL2uonl9EIL8PTejXMNt XfP9MLIrqYKlBMJdjVor ZBgho613CJC2HqAvCLBk imWjoLjzrY4oMtGyGOSS xAYmf8B5YGwsyMWdaOle aXRlZCBieSBtYXJrZWRs hGQxRWX6L2EqGGVcyTsa cafiBmhbqMB9QFocJaTf RuirT1FJZWpeSTEeGOGs ZQoishr3hUBcSaJdnsJp zSNhQS3dlSc8SYWumdOk giCuAN74PZ1ctf03jTSt rYDxF4XnwKPsHJ8lfw5e GX6cfD5eoH8uqV8fEQRq UZicvuavLP3vAUBfOkJo cy8oPzFbHDmexqZrlrHs GLRhZJ58eCOylCjxHXCg NT58HezaRPO9 CPT Code(s) (test code = y0gjuCStYPDpeYZ9IfTr 3357) SZTvz6bqx5IecTJmsHLe XTxcpXCdxpGmid27pPR5 rM86US7rNZEdKjX2XGVn psL3Fzn8GLJgQGHauHJc V216n0oyt5fvsiIuaEO2 sUpoXKEhrncjOeJ7DMkn LCOjxjgiVCq7CLohTEXr zBF0WQCooLPkQ1SzZBIp EI6tbje4CCI4XKlhXSBj EoX7TNDopOTwJYLcsTaj NBwgr630TEO6VxMrVSRk p3G5ioYmLrQpDHSnoTY7 ivP9RMXsYW3akpvzd2kj GIdfNGlhLMRzsfP2pbL1 GRMozCJuQ1LmaZ0nNTRr FI6eieonj1zlIVM4BZms YXJkXHBsYWluXGZzMjIg ODgxODhccGFyfQ== SPECIMEN SOURCE (test j6rrtVFlNIGvlJR5TsUv code = 3377) XEQql3iit9UbqIMjvZRe HGosoQBtkgHssj42fZX0 eR11DE3fSPQoQwO7TYOa pzW4Ivj5CSBjNLAncHOw L430o6bcs2wqpzUrrTJ9 lFwmPPOntxnkGqZ9HYvc LVPlpawsSZl4WKhcVFSy hJT2REXwtXOsZ2OjJMUx YJ2gqky1QRK7CLxjRPDv ZpB5LZGtjYKfWNJmaTjd CDmnz068OZQ3GrUlSGIc foOgiOvigM4vHkIaHMCW tb9aY5qlYEa7IE7wTZAh tTC0SKtuPVRhcq8= CELLULAR BIOMARKER j7fsgOAbRUHvwCH3FuCq ANALYSIS (test code = EYAzd2tzx7WppZOoaJJg 3380) PKqtdNRkcqSyub86gNN4 nD83VE3tMWNjFhR1ELJo huQ1Oua8ZCJsPMUvrILz S718x3zly6tzxvYwpGQ5 VSDnWABpO7PxTG2xCRCr uGFeS23dpFNxPEJ3XXCr OBSwsUAgSNEtSOX4ETYa sDKzO0zdPWMdDM4jvdno KGevRIyjTPWuuVU3XSTl wGMfM5VlRUFpGZejEKAu oev1AsGoSt4nxNYoiBgc MFxwYXJkXHBsYWluXGZz UlLqT9IrCAZMWXuuk8Lo CmFzMW4dAVPwYOzgS9J6 Tyufx1TxGyTaHC6oEL4g ASIfZEZLFSuyC0ZtYMob R1TcXMayF8RfAYVARIIx LCBDRDQsIENENDVccGFy fQ== IMMUNOPHENOTYPIC FINDINGS i2scvIWtAQOlfAR3RzVm (test code = 3379) MCGxq9nnp0TrxOMuiNAk TUmulLQldxFtws30aGA8 qU56XR4iLQCvPnQ1FZVq owZ3Uwm0MPOpITEmsZJw N790s8plh0lcahEaoQU9 GTKoFNEbZ6WzZO1gMNMt hSPtG10gmOUaSDC9NEBw NYHizLIoALItHTV0MLUg iATgT9jpZJTeIW0lqdyz PHmsHGbxBBBhgAS4SCQk bPMbX5LrZNBmYUidPLYo shv5LdKdIa1qgCCvfOhd MFxwYXJkXHBsYWluXGZz ZyWjM9MtSYEfJFFhpUEl LGOaPRSkkPg4vGsmGNFg PTRbWg1yJITkAFGuWC3k flx+UD3hrzWPgK6wNFFm q0KyZWUyduOzSJSteWQt lzJsXaQnZ5DkHRCgALTd DFefVDNjN1NcUC7wtNKr HXEbBKAtw5jak5cjpgey wX8jxGsoyAozcgFhAUVp JPxyGG07rKIaFCG4GXUs clxjZjBccGFyXGNmMSBM iK0vsZ4oqWVesqiuNvWe Y6n4INXWHWXcEQm6eUQm c4P8tHYbKAWfoKEtlURu JEZhUoNiy9NmjX52TVdc T8YrnZZuDDCxH1EuuHWl n7aiexAxBKNOIGqYUFte lqZ2eT7lg3RcZPTaBEOx PaLgH8VrLAPmpeLkyd9h mZXcEUX6jEEpd7Kzg76e m7YrwQqaILXwywMSQCJg xRmeJS63tHqjahCnE2Kd IGFuZCBDRDUuIFx+QiBj BWztctOludAmHBWiGI76 xOVqgRyjOKCfQY50Igxe ACHqvgwnMCQuKZnpiY1k FZ7nb94gZ6s7lAFyfL2c oRuuoHixnpI8NIYeWMxp ML35iEIvGGNxLobbJ2Z8 LLDrowJtiEgejAKmd3Ml xEOndnNziZNyEGD6FHCl x4NjN2GiZVctCM73qP4b xQJbznJte67zvbfuZIFo FhZpAF8hQBOcjOAcIRLk tHntNLLkefGoxL3qe6Y8 dGVzIGNvbXByaXNlIDEx RnUnHF7mIWBvyZGiWCPx bGxzLlxwYXJcflxwYXIg VGhlIHJlbWFpbmluZyBl qdNthQGvJU8hsNt5BYKm wcIdtfTwLN71JY7ucjMh QSVaEXRtPXhccyzzwp0h DSbnsYB2e1h9xWJel0pn IGNlbGxzLCBhbmQgZGVi cmlzLlxwYXJ9 DISCLAIMER (test code = l8gcwPSlKCBtaCM3QoVe 3363) CGZsl5fbu1ZenCIreQMs VSzfjDJbqtOyxu07yEC9 sO31KO4jXUErEiK5SMHg oqK4Sib6VSGyIZIahUPt Q692o7exb8hfzrYsmDE6 fRofXDTfbiszNqR0GGkz ZCQsvimzSYl2CWjdULHh dZE5WFAzgPBdN6RjXLLq XA5fhjn2ZZR5PWkiHEJe UoM0DGBwyMTjKDMwvAkn WWjhm452UZR4VxAoDJRr liHjkEsogV4xNgIpYoWP cQJmNUO8LRL1rkY5DBMf KIMyuyLql4UaBCNpywTw kEgbeQZftXZgPa0dpODh I6TdA4jwelJjkDRhtRE2 aWNzIGRldGVybWluZWQg MxgfNqA4fX1oXZD2IaQF oEiyW3YlGFYtdGKobDJO GW49WIWdoENhYCKgDIkx hTF0LKIhn8EtZrKozoZr dDFmdjRwSK3iZWEdkBAt nqJjFTK9BIUoIIHZHmJm XCCcm1LnXC1dNYFjdHmy WEWwsD2vi6JmWSAuj17d IFRoZSBGREEgaGFzIGRl dGVybWluZWQgdGhhdCBz fGYsXAAtIPZaLR4tQFUn vcTsyDCiu5BhwDGfqjXv n4AeipByFQZtQQN7ViHF sWUwkH12qWMbsz78AXVn HMVyU3QgQZExSIXkCKvp keZmzCvsJDXcs78fgFWv ubZra2BxibWfSJJwZ9qg QUSxjSLlbEZoi3YrpM9i eUXlxpFwEZR1iLZiSODn aB6nKBDljAjbTTRpgX9f U0QsVFjxUi8xECAhjeyy CO9cmp05JI2uhkZvYQ5n djFvYI43fsHgPcSmKHg0 SFxeL5dSTKQoUQFtOEG3 HZzwHnpxZHG9eeXaIZLy w2ZpGKpaY9obS22hxNpo dWb9qEQygLycoOMehIY6 FKF3hI0iYoskFSK8 Technical component was [facility]'s performed at (test code = [facility], 2778) Department of Pathology, [address] [place] [id number], Professional component [facility]. Hallam's was performed at ([facility], code = 2779) Department of Pathology, [address] [place] [id number], [id number] 08:38:29 Test Item Value Reference Range Interpretation Comments Case Report (test code = Flow Cytometry 104) Report Case: [id number] Authorizing Provider: Tamera Fowler, Collected: 04/14/2021 11:50 AM Ordering Location: [facility] Received: 04/14/2021 03:20 PM Pathologist: Codie Maldonado MD Specimen: Other Flow Interpretation (test t0htlTCiRNOegDV7QjLa code = 3364) ODLce2wrj8UlnNHdtEWg HTljoQPjnbFkqe70xDV8 nB50EI2zWZNlLnA5KQKz qeH6Vac2SWPgTLWneUWm X883j4hiz3peoaTgrUR9 hDsaURMxepwmYgG3QXjp UNJhmrumZAw0XUybVFXg dEI2ERWdrKVtR9QzFHVr DV5ctfq5PAE7YWwmGSDf WwO7DATrfZGeNFXsvUjj GBnez006OSC6AeBsMDNx shAonZugsU6pDnRyBRUI Vg4MC1uYIMoMCF8DFPXl CWETHTgGSXEUHG0GMAHM UM1WKGPGVZuwuVZsQI7s TElNSVRFRCBTVFVEWSBE QUDyQX0sIOFXE7DSKUcs UkVEVUNFRCBDRUxMIFZJ GWUHDIxNDWJrV5BKACVI FO0XJmPbNATmahBnTI1V UR6QQa3YGGHRKbEYZIHM IUlgAK2BGMlIMUiHZzWB REVOVElGSUVEXHBhciAt MU1CPMDBDRNJMV0NXSIf X4CXBNWWV2XWWFNEKW6S EThWLL3MCKDAAUPmcNNf fQ== Flow Interpretation o1cwqIAySZAvrJI3WmMx Comment (test code = HOYnj9isw0YimIBflUFi 3365) AZgozSZkgiMajj91lPU5 mW63PB5xTHVwAbI3FFFd xhI4Lgb6AUGiJURntDKm E527i6vpt4zkirUixRL5 nEtjFRImpqerRiF0IMfr HCHcdsfwTOv1PNhgFKOl kJC4SHBpxTJtQ6JeREGm ZJ4ukaa7YFL5AMmaITMt OhV1KWUxlYPpTINijKuq OIbfi788LPY6BcEqDNAz niWsdHafmO0xTaXvWUHV aHGku9U5XZeamBFsxEvq aXRlZCBieSBtYXJrZWRs qOGmYET3M5QfFOXybSwb mzgpMebabFA9ZGnzUlZv DndkE6GIRYccUTQcSGNp OKbjtvf8sKEjJdUctcIg aQUnTG4oiMz8RZSkxjDj rmSuFY65BS1pbn81lGCh cDVqA3DeoQNhRF0uwu5j MD3yxI9wjN0vcM5gEDZt JYcytbpqHX0xJYWbYtUm uy9sEzHpHNagojKgmrMi YLGuZK37qXDeqUkaYEFu GU02FqhiHYP2 CPT Code(s) (test code = q5jauMYbHXOvnHV7XyWy 3357) IVLro8qrs8YxnLAfxNQf IYewqKGamwWzca01kJH0 dA82GR2vGHBgCgH1AZQo ncV0Efe6IQReWOVphFDw U744l6gaz3pbapXdeJV2 yQnxNYQzcgucFgW8RXdt NNCsrtssHMa4CPndUUZk fSS3XOSqxADjK6OzNPYy TO5jwjp9EEF0MUsbPDJa UoV9AHMirGTdBARqoAlx XEssn591KNY0GeDgCOJd w9B0qtKoNaDxFTWtlAD0 wqQ7CUOqHB7shtzol0am UOheJNxuUPBvbiL1jmX1 KRWdaPLtG5LjjV0fTPPo GQ4ucwogy1hcUHR2ZOoo YXJkXHBsYWluXGZzMjIg ODgxODhccGFyfQ== SPECIMEN SOURCE (test f6pfoZPhZNOulYJ6QrQq code = 3377) JEBdf3ybb8InlBYgmPOn OYikcFWzkjIule19jXM1 fI26UL8rAEUnUgE2SYDd udT1Gjm8EKFgTGJdyGTz D306l1kqs6diudDhxCT7 zTqyWMKfnzsnYvU7ZRln AYBvgtepVDh3AZbsTFQe pZT8PZCubCFiN2RtGYIu UJ2xuhj7YOH3EXqsDDWa FnA5YUBzmINyREUmtNtx BHmnl471ZHT4LkFcRIYk jbLaqZcdaY7iYtBdRKTM wp8oM8wcTSa7BH2cWTVa tMD6QNueEJAnab5= CELLULAR BIOMARKER b0unnFCzTCMdwNW6RcYq ANALYSIS (test code = TQHiu3dyu0EhxBBiiBWu 3380) QEzspBIbadMimm34oNL9 nF06HV2dBZDiXyD5UGDf dwH6Wqa2HUYuAVGttANz C478b2jpk2fduuItyEI7 YXRvOUViI2EpIK1rGNOs vRNdP60lpYLoDRF1IFBx AXJhiPZgQLVrLKA0NAIk eGOzQ7tcYTJpHD6loomt JRtpTKvlNOIusIQ0HUIb lSFtD2HrFORzIKptUHKl ykn9KlZgAa7imLOgbOvr MFxwYXJkXHBsYWluXGZz GvEcE3EhXWFXWTexr7Tx OqQgAP6iYIFtKAamP0I6 Stuac4XzXnObWL6yZB2e NBOuYJFQEYorM4FvBJuj X5YiEXbbA5NxFIEVAHUl LCBDRDQsIENENDVccGFy fQ== IMMUNOPHENOTYPIC FINDINGS s3ifeSLwDDIuyNA8LwFy (test code = 3379) KARgq7oln2OcpITnhTNn GYoeoQPkyeBgkl95wWM5 aB95WY7pLAMzIaT8TCMp myE3Cae7VEKcRGRfeHFj Y824n5cbm5aabwGnnNZ6 YKEwBZVzK6LmBQ2jDVEo xKBbQ56gtRGmOSM0ILKs IINwiLLyWAZdBPT7ZCYd eOYlF3btKIKzRF9nzhii ZSntLKamAVTsoGK9GKOw sJZeD8MdEKZfRGbnAZLb wlp4HsWyCg0xrUYasKbz MFxwYXJkXHBsYWluXGZz UvVnO5MfPKYjSYYgpCEm CQEdXARefKm2bRmqBWJv OYFdZc8sZURrHKYeWK8n flx+CB4cijFObB3oXAQf i8YtMNEromFeSTZbpLOq adNnYqQtG1OxAZFfNTEo HFxxVKJzW7ZvRM1xjSBg GAVoOAJhe7njr7qxiagm rD2kdYmvpCaaiiRiVJSq OJcrTR64qFMvMWI5CIOx clxjZjBccGFyXGNmMSBM hI7pmU1reEEyynnvZtRr U2a5GCUMDOSvTRu6iGTv c4Z9tSGiPCUddDNuiREt MXIjMmMdd0CodS60HJuv J7OrkMGtTHJmA8HovQZp l0nzenLwTQHAZTlTRNpp dkP2eA1js9QkXPHsLMNc AmAdW5ErEXRfsiFgyi9v vAUnRLB5tUHuz3Mtt34q q8SajFpuLENbgrQXDNPy fBnsZB73xOrxhtLxJ6Px IGFuZCBDRDUuIFx+QiBj IBohsqOpumPwBCVtND48 vEKovAabFYHfDO21Pwgj RVZamualCGCmKVbyrZ2d YU5pi46dM5g6pUZqkG9g gPpkuJkwijL3HLMcRUbe WZ13oJBnWGVoVukqI8S1 OEUclaToqXtrtJRog2Fk dIOhryForRItCEA9WQOn y8OdH7OkUUqcLY73mV0d hCBxcbGwp18fdmevYAJl OqXyBK5iEANqkPYgWLTg sPowZISgvzZifX7xx6Q3 dGVzIGNvbXByaXNlIDEx XdXpXP5rUHWrgKRvOBIk bGxzLlxwYXJcflxwYXIg VGhlIHJlbWFpbmluZyBl qeTgcVCnNQ4kaHw5BKKh yzPtntAmAF52XJ8tylQr EZWqXTHrXOhhcvligp9l ANrozOQ0b2o6xWTzn7jv IGNlbGxzLCBhbmQgZGVi cmlzLlxwYXJ9 DISCLAIMER (test code = n9zpdCVsNMRdcLF5GfSz 3363) HRHiv3nry8JgfPKtsJCe NQtlrDEupcIdhd72tVN7 kB32BN0sUKPbAlE6UPAo gvO1Hvn3APXrJHKeeCDg L266i5kkf3mlzdBacAA9 rAnpQIDmosbhBaH3HXmv WZXhyvhaZGi9CSunNMIy nKG9UCMkmXTnF5DvNMSi RG0gpjo8OJB0QGzhQKDk XoZ5RRXxxBKtFKLyhOzm CWzjq772RGP8NaTdZMEv mmBkrVjlyI4cEwJsUaRB rWVpYYW6ADN2ygU0TUQc ULVlsvNvi2TsEWXukdNq oOmemWMgsNBpWb1kjDVm G3UwG8fkpjQpuDEafTP6 aWNzIGRldGVybWluZWQg YmyaQlZ1qF1wXTQ1PqPF hCiiP4WgLIEjaCDqdOLR DS72TLFjfDSySNDsYLjy pRW7OXXxo5GnEsGjvnNe jKTqvnTgLB7mQUBzqNNg hjWfOMK6UOBjNTZOOrZt WLTjw8DnSK7dYKQvrWkj TQNjtG8hx4FtMHQpn91d IFRoZSBGREEgaGFzIGRl dGVybWluZWQgdGhhdCBz lJZnBFBqZORqQO5kDQVr ulFksMWsg0IdrGNpdeFb t8TramLwCAXwGMQ9JwJL rUUmoW12tVXdhm45TOXy YTCzK1MgXTJpDVDmDWrl rmFpuZdvEHGpg02ggSEn rmAex1XytrWwPEZqB2da LBQswDJbdLUgh4DokS1f fJFpdeViXJS5zNWmLQBe nY1mFXJytPufXTKpxG9k Y3JsNJrjXc4dTWQkliro WS2egq46CR9hlhQaDI8o qkCgZF14sqVlYuCuSIg1 OGqsI3cAAHLcQQIzGJW0 OZtaCswoWCR6qoBeZRJl a3ZnNGrfM5hyI52gvUlx bLq8vAInlPjpfEWktNS6 GBE1yO2qFdlxQFK9 Technical component was [facility]'s performed at (test code = [facility], 2778) Department of Pathology, [address] [place] [id number], Professional component [facility]. ke's was performed at ([facility], code = 2779) Department of Pathology, [address] [place] [id number], [facility] [id number] 08:38:29 Test Item Value Reference Range Interpretation Comments Case Report (test code = Flow Cytometry 104) Report Case: [id number] Authorizing Provider: Tamera Fowler, Collected: 04/14/2021 11:50 AM Ordering Location: [facility] Received: 04/14/2021 03:20 PM Pathologist: Codie Maldonado MD Specimen: Other Flow Interpretation (test z1avkLLnMAGdkPF0EtXy code = 3364) DIPyn4odc7WymSMozSGs THzyxIAnawVqpn78qFK6 vW53YH0bHWMwRcL5BMKe diK7Xed5VQRnBODkdNAf T606p3jss6eyxaHkhJK4 eCrdDALtkmoeZiG1BRpo FEKmouhmCOl6FFamWHZz wDZ4HJFmcFNlP2KrELIk NA5dbxp3LJQ5STozIWBg KkV3CICiwEIoDOXhqPxp PJktn528TAC2ZsVmKPBo ldXbuBytdQ7eXbXsSLKL Zj4SJ3nFLQjPPM8KXNHa BGEVDHiPNWXKAG5CKHAN UI6AEPRNQNfbsXZfFD3t TElNSVRFRCBTVFVEWSBE IECuAF3tTPVDQ6BJABvm UkVEVUNFRCBDRUxMIFZJ OJBWCMjRUQQaC0QQGNBH CD2VGgKkZRWwceLuAS0U MO9JVn7VNTBRBiWWHVAM QOioXH2UCXbMNYwTPgMB REVOVElGSUVEXHBhciAt ZO5FNELZCUIXXX3HOWHe X3MWAXNNP4XBASJCDJ9H CGiNHU6QFJWGCNUgtKNo fQ== Flow Interpretation z1ytrRXgHISwgEX2LoRh Comment (test code = GIGxa6ldp7DziUDdbIUp 3365) JFwyfONcbzAxme11aDO8 wP88AU9tDCVsZbE6HCPx mzV9Czq7IDBmCNWhlJEr I396d5wik2rshoDcmPO2 uUksHDTrrzalNlP5NXwi BEXnjjzqBVi4VCthQGZu sNT4OQYqnSGtE3HoXRSl HH6chxm0OCT0QPmtAPFm KaE3AVLczHCgQDOohTpo VNxsh127OVR0SsIcPQCx xkTdaZxxaQ7eCgQmEDJM aFUpw8E7DQtwtOPupTgz aXRlZCBieSBtYXJrZWRs oSYbOJD4R7HlMRNrsIqd zwuaYhgfiLS0VMbaAgQp IgciC0MBUEbyRDLzHZGe MVugynk1vZSrBtNvssUz jXKzMH0ewIp7LDUmdiMw obAiGK75XP5cie38tBPk wKObS9IrdYJpSH9mte4d SF7exQ3tdI9bvP2nAHQf OTjmppnmAI5wUPSzVuIv pg1yOrNfCHzapyYirxAr RWBzQR52bLObrDweDFYo GK47ShsiALP2 CPT Code(s) (test code = b7xfnBUrEZJwoCK5MjSi 3357) GHRhh1suu6PrhWGnhJPs SSnzbXXeuuFuuc36mVD7 rL92NH9kGAZwPbZ1CVDw mdO8Qkw5KAFoIHPcuTZl Y602k8xac3libdNcjEK2 jMuaOAJkhvqvFxU1SDps TFFowcruYXx1UDsjCLHa cDH2BCHwhCLkI6WoSWSe TG7hqii8CNV9FLucZHMq PmM2GEYuvQDfWCUsfIfg MTafo139TFI4OwKxPAIi i0X4fyRvPwHlVRYkqGD7 lvL5PFOvEX7wvowqd0ec ASsdOQjfLEBgxcQ3gbE7 NQOhzXJpI2UhlG6cTKFe DI4jjxgjs0otIRG9UZvo YXJkXHBsYWluXGZzMjIg ODgxODhccGFyfQ== SPECIMEN SOURCE (test o7luuVMkPCVmjBK1UnGq code = 3377) GQQqs3kuf0NvwRNvoEVt LHzzdRDkwoEuha88gXP5 aJ83SK3aQCHgGnV8BWWb dsZ1Tsv3MTEcNOAonIQc Z137a1yjk8txlrTawIJ6 nHnlOZPcpozlBxU6GLmm BFMmxhusBKu1ZOauURSb zXU2UBQepQZuA8JtVOGx WW1ncgm4ANS1STuwDWOd PtM5VJReqFXkRFVxxDfq VIigz621DWE6FfYoZTVv saRblScxnF3xScAcGOKS mz7kY0qcIMx4DE7nQJPi sHL8KIlaEBHkli8= CELLULAR BIOMARKER s2tvlCFeMXBdoAP3YuBw ANALYSIS (test code = SXQqg0jix5SfvGBjkGIx 3380) LPmodLLpqwNbcf64iBJ3 sY82UT0zOLZxSkX3UVOh pnB9Dbv2GIFyGIBvkQJc D688z8bqq7pykzMuyJU5 ETRnWVDsH8AdMZ5nQHNu bMLiR30zkWHkVEN5QZCd UYUraIFqIOPpCZK3QFTx gRBwY0gnQJLcSV7nrgtp IOpiCHsfKFFrkHC3OONc rUSkT5WqYRTxVDbxTOAl rmc3AmEuBj2wiWNaoHts MFxwYXJkXHBsYWluXGZz MnRlQ6NoAAHSCZytw7Ip BnIsLH0vGLMsWHkfN5I7 Vgkfr4UmBaRsVT6gCQ1e RFRwWQNXPHcsI3ZuBTky J7QoEMdzC6MzAUOIWRPm LCBDRDQsIENENDVccGFy fQ== IMMUNOPHENOTYPIC FINDINGS j2sizRPuQRPozMU4AtKd (test code = 3379) BYKuj6alw5EclRPmnSGs VVdogCWscqYlwt96gOZ2 rP56DT3xCXLwReI0FCFu hbJ5Rar3APDzWIUwoWNf M732p3sfs6siqkMotMK6 NAYnBXVyD1KgEQ7vILQa gIOdX78ceMOzQLL9KTSd CQCcxKRbVVDiOEH3XBYf eFQbL1kpZUYiWG0pmujq OSpbJNvgIIEdxBZ7OHPw bDZeJ9QtPOZlMLqiUEEk djy1YwTlZn6lqVYesYbi MFxwYXJkXHBsYWluXGZz JtFlK6StYXGgIXPybCXi OPHdYRQzaCi3cWfbKOFe OHVwHw6fLASfTMPpTJ8q flx+NN8nczMXlG7uXDSq z7JiCEVmokMjEWChrCNw ukMdJkJwW7TjGFTlNHFb APofCVEfW8NiSK0jwODh YFMoSIVpw0sob1ejwisg sV1nkHlxlGzkoyUpZXQs OVgpVW92qADqRMA0QCBh clxjZjBccGFyXGNmMSBM tD6wbA2bhBHxlgfaXsAi G4w5HDERTZFzIHc3vYQr e6L6sLGaFYPkrOGdpVQu TAYlXsZhg0GbqI94QByn R9ProUHbNDKbE9FjxZUx u3wgpnBgNCTHKKsPBYuu xxT2mI4ax8LeKIJoBLMs NvQlB9HxRTJhueVkpa0f sMFnPTJ3tIOxf4Rxt55q i8EtdEoeORHsijZQMFWy tYgdPT49qDprjaGpT3Ru IGFuZCBDRDUuIFx+QiBj QVabllKfeeFmUBPsQJ19 cCRjgGoiKYUvCR03Xcsq JWStsnjxOBHcECialR2f XJ9ts90cS5q5bZQewW6c yHhfsXyowxN2EFOpAUtv MM67nZIvBRSoPjlvF4E6 XCRxtaPnpPgkqOYlc9Lx fJWtghTekRXiXGE4VYAb f1ZqT7DkENbuDB55cT3a eBCimcCzp38tzpqkNEJg UmWiMP6wSBXcjRFfWAIk nVzaWKPjetLehA5lj1C9 dGVzIGNvbXByaXNlIDEx JgKqCA2jWDRfmXJfREZa bGxzLlxwYXJcflxwYXIg VGhlIHJlbWFpbmluZyBl fiUwjKKlPS6tnQe9KLZu hvPgeaIaYY21UH3evbPs JSKnORNmYXacyqixtb6w YTvxoJP0y9d3oHEjx2fy IGNlbGxzLCBhbmQgZGVi cmlzLlxwYXJ9 DISCLAIMER (test code = b3tsdQNhGLPnkZO8VpRb 3363) EMRcg6hxz4FqlWJfcSLo IToszDWmgsZrme15gPV4 sG37ZU1bHGApVzO5MZQz vvA3Iyi3TYSaOLPmiXLv F643f7rcu6xunpDrzGB3 aJgwPRJwniekFdA5QOyb CQPphojwLGd2TAzjUBMq aHA4DGMwuRFwR3SvHNGx LH8ntgi5QBU3YCbkJLBt KlI1HBUpcCAlJEQrtTwr DEpoz361DSF6ZfYsXCJz neVycXcmxX7bUnQfXbJN pXZkSOC6RVO1wyP9DRWm CKSahiEul2QoCHPaazGs bCdspHTxwAOgFm2loEGl R6EjD3wvgjDloWWarAK9 aWNzIGRldGVybWluZWQg OyvjPhQ5tU7gZKW9AsQI mQvdB3KjSZXgdZVufVTJ HO81NBNfwIAqWVRaKTjx yRN2KLSpl3EpBzJzzvAn xJNtfbMiOB6dZCEudOLp llNcAEE1WMPcLCAGIuRw OOVws7PlTB8qLLShsDgu KNJqrB0lu8AbNPNsl74j IFRoZSBGREEgaGFzIGRl dGVybWluZWQgdGhhdCBz eCJdCHSgDJVhEI8sUDYm afXyeTFvw9CunOCtlfWh n3RggeIkSKPtPTG0SnMK lURljF54lSQwhd30LUPp XMSfV7VqZKFrFXTtKRtc mgYluQesAQOae36weKFv edEdu2EgteZyTQZpW8dk SCYziOAyoVSuu5EtrZ0x zTCbrfUsPSF5pESrJUZo oX5eIGQsgGlgYUYzsK4g O3CaWYjeHk3jDJUxzojq VG2uax50HN7pbrWnZN9x tsBwUD97yrYcDyHsIQd7 EJnwX6aKXZFlBWUdLBY0 POmwRtqhGRJ6dsIoFDVk x6FaHJdtX7rfR36ylBqg zFo5eHKrpSnsbYIklWM8 QOC9bG4lJnsoXSH9 Technical component was [facility]'s performed at (test code = [facility], 2778) Department of Pathology, [address] [place] [id number], Professional component [facility]. ke's was performed at ([facility], code = 2779) Department of Pathology, [address] [place], [place] [id number], [facility] [id number] 08:38:29 Test Item Value Reference Range Interpretation Comments Case Report (test code = Flow Cytometry 104) Report Case: [id number] Authorizing Provider: Tamera Fowler, Collected: 04/14/2021 11:50 AM Ordering Location: [facility] Received: 04/14/2021 03:20 PM Pathologist: Codie Maldonado MD Specimen: Other Flow Interpretation (test g8dorFMlXPFfbFJ6CbJh code = 3364) BYVip3ryj0BurVIjmQGk ZNvobKBahuDuqm71tMS8 rU01YC4gUEIjSnK2TEAl sbK4Sko3KBMgLGWjlPRd F572u2avi0uhygXsuJZ7 rNmyVWJeljziToE5OJtb OKJigkfqZFm1MFioQFEu zZP9VABeqFIpU5BeWDDg AD8aaal1VOF1XPpuNQVq CfW2KFOekOYxZEWqhLtj IJwtm290EGL6BaCdZWOq ijNapHqxdD3iJjRgQLKY Da6BM3hNJAxRSV5NQZEj KMYJYTnAAAURDZ9NVCCM LX0KZSGSUDdvyQNsYQ3l TElNSVRFRCBTVFVEWSBE NATnCR2tEDFBU0WAVJrg UkVEVUNFRCBDRUxMIFZJ PDIZJGsQYAXgP1MVKFLW DO5JRwVbPAOqnpRzIX8V LN6UGd7CARVYVpVSVZPO ENruSN3HKKkZFGaGNiOG REVOVElGSUVEXHBhciAt JI8XWLBYBKRFXJ6DFISp D9MDHQFVC6ZFADJCKA8V MRtXZE4OPZQCYZJedYVm fQ== Flow Interpretation b2fhwKEjEOLafVM0PpMv Comment (test code = XHWvr0qxo0ZwhXIpcLPh 3365) LEjbwVKdvwAwey33tKT5 yL66RN2zBZMwUnT8XIAr cpE9Bpu5UXElJLCrsWIu E783k7zzx4jbhoResVC1 dThcBJGcnuutIkH6DTlx COJqlogeJZo9ZAgxHCWf wMC2DXXwzSRiN0WtAYRr FU3tfuy8TTP7NGhcMEMu CrD8GYUwrUFkVYZooDqc ZEqxw862ZHB0IgXcSRVk niMkmCsbuK1ePeTvZIXT lNKbk5D1AZjrgWDzzBwc aXRlZCBieSBtYXJrZWRs mWYwGYF8W0KcXBAzuTfp ocvzTvpvlGH3DKoyDlUk HwvyA8HPUSjsZQMyMWPf WJtzpox9sFUgByEjdeIq yXZwGL3muMr5GBBmsfZu oqVqXY32WJ7icy95wQXq pIFvJ7UtoATmJO4sxx0g QF1ogB6ypM4qeA0zBCPc YBozjpuoWA9oDNKqNjUa uy3jZbJiRCudywRstyKr FKLeII54iEKctQpjTYSt LN68QhixDJM0 CPT Code(s) (test code = b0ymlTWiTINovNU9WqZg 3357) YTRke6jfs2SnzADkcBQj NVsvdLHivqWaeo05wNJ4 hY02NN6aRAKmGcM5SGKw wkZ1Ltq6VJEhSSBfbAIb O243x2jcg3pzjjTabQK5 dKnnNFSpxdoyRjB4ZJww DNJfzfkeCBz0LFlkWGVm lZQ9BUXlzZOhN2NdZMOo TL5aejc0TBZ9EWaaBHTm QxV7BGVvaRJhMLKvpXuv OSzny695KIB0QeUyWZPy l1N1poFsOaMnIABwcLD1 cwO3FHYmKT1bxwaua3xm TLfbCYmzDSBxqiW3lxX5 ACKpiWAfY4QxrS1eUYHr AT0krnwie7zuAZI5MXkj YXJkXHBsYWluXGZzMjIg ODgxODhccGFyfQ== SPECIMEN SOURCE (test o5laeYKfYNZlbNX1CzHf code = 3377) KEHdb5abn1XinRZosQDh AZidcGKyyyCwyl14sMB5 gG93NR9aRLIkKrK7EIXo bhE2Vqw6QDBzVIGkaBEs V781x4enb2ziwjPcnLO4 kSdfBVJrjfrnMhV8KNey TFDxfbvvSRp1QWckYFFn jYH8XSIpsFNgR5WoNCXb AE8aqow6ZMR9WXfdCTDo KyF2WUPekXBzGBMclZui VDoev429VGU3EpZnPIQf ztSvgHfyyL7oXpZzFFFN wy0kY5zlAWs6QK2gJDZd cDR6ULovUKTswh1= CELLULAR BIOMARKER g5ijuWOcSKLjzWU8VjKb ANALYSIS (test code = JGTeq4tic1RanSChpMOu 3380) EOdsiANldaTdcb31nZU3 oT66IA0jLKZyNnC9GAJv ecV5Obp2WPTwAZIhtZHj J131v8xpk6ouggJgbYH2 DKFsXRFwE2WhVY2qRGCc rOZsJ38mrGWsXPR5LYXi ACKadRLrIZAhEJS5XPXz qZLpC5ylQYZzSZ3fjbjv QQdnVSvzQSBdwGS1GSAr cBYaE5ZiFMHiJOavZEEo ncq0YvYfPd7ixPCrmKuu MFxwYXJkXHBsYWluXGZz ImGkY0WyNFPRXUdvq7Dg HkEpIM7gTNEzIPbdS2S3 Gyfun0BuPkQzRO7oGZ4w LMIuVSMEWKsjU4HdFTwd V8YcRYpuC7GbEVAPADJh LCBDRDQsIENENDVccGFy fQ== IMMUNOPHENOTYPIC FINDINGS m7hcdGPhJINarOR6DrMa (test code = 3379) EIVjg8qwh3LvdARjlFQa BNxcpRHnzaJqyo15pTP4 yR36VW9vUNPlOjL6SGFd lpW7Vhn2CONyXVGfyZXx M899n9rpa3gvthXjgGK5 JPPuYTNiE3NdJX0vGKXx uFCbZ32zsEKuWPR9BGQf PEUmbYMzOZUxQUW7RQTt aFThS2rbTNGlWY3oibir WLmsZDoqITRvnGO1AIDe fLKlG7KhVGDmXYwoUHDv dhz7VyUuAz8jeZDwjXry MFxwYXJkXHBsYWluXGZz DiJpF7NfKDXkNZNzcDJw QMIcGGYcrTp7kJgrDBFp YFZzKc0hMGTuDVXsYZ3x flx+AW8ptmFGbK2rWQXy o7MaGLSklpStLEAjhBFi xlYzUaGaJ1HoMZDnFYHa YDnnVTHxH9ReMB0wfYFs QTZvOUWqh9qrl6azoaap jQ0qjCqhlRcoozOcRBMd CFegYF22pRQcGTV3WXYc clxjZjBccGFyXGNmMSBM rR4maK4pbDAgsaktAmTs W2m6WBQWIGPdIUr1qKJd q0H8uLWtRUAihIYztMYw DVNuEiArd8GwaL39XGuq I2YznSJqKFSlW5CotVQd g2krfdPyBRMSKEhSUFlr qeJ5gH7wj9UqJYWsIOVw DtAuL9JoXHPdcyZiue9w cZImHVN1lSWbs7Ksu90m t3LwaVijPSRizlRPVSPt eEfqEL96aVbbpdGkU4Kl IGFuZCBDRDUuIFx+QiBj XTnibsAkicQfABTrYW33 hYFnxIugDBCyGN40Fbwa VVNrvoblTXNrCIlfyR7d XG0qy93zX0t5pZBzuS5b lKmquNsczwX7VIRmBFhn VT46pFGvMZDiZqntP3Q5 EILzhdVjtZpccMIoc4Xb tTVivnNrxNZvSBO0QWMi m0ZoY9AuQGcdRU08bO2z qJZuboEwo70zjcxiKQVz LgZsSG0hDPJouDKrCVPx uZzmSYQehuKgpQ2qt2Y1 dGVzIGNvbXByaXNlIDEx CqUrJR7xWMIjxZFdKXIh bGxzLlxwYXJcflxwYXIg VGhlIHJlbWFpbmluZyBl kvDfiUMdZL6ejHm2ASPl jkZpwyVyBY26EC6onnDl KADkVYEbINcpjsnzem5z SAaopUX3z6i0tCWjs9fr IGNlbGxzLCBhbmQgZGVi cmlzLlxwYXJ9 DISCLAIMER (test code = h4rfdPTpAQKgrTY4DoXn 3363) RQFmc4lmj9AqkLDeeRMa PPujwMFmzrWsta62zMR6 yX75BM9hXAMbBuW4XWTs zxT4Uip3CWPcGMSymJVg Y585x4gxz5gydfGalAO9 xUngEBFtdjxrQoA8BBor QQWzhgxyNBd2PGnkQVOj tSL3RICclOAeR1ZeSTYw NV9wflh3WJC2MSdnEGYj NcO7OOGuyAWeHSHqdJmq NQpov025WUX5NtVqDPCj paTokQksyY0aCeMzXwNU nOGzNLO3SSM1xlB7PNJi TCRgrgGzg9UdSPAtdbAz gMknvXVwiGRqHb4faQAq O0HzU6ilzuUobFDopGY4 aWNzIGRldGVybWluZWQg HuhaQbR0nP8qLNR7KrOM sPzsF8WyHYVchHOshMDQ SK08ZRRguTInQHXqDJis iIG5MIPrq0KsApTqchLv uLYtfsFhQU7mMITakADx jsJhQON4ZGMkWOKNRhQe ZXSos5UhPK1kHPOybInf JPRroG9vk5HlPUVix91l IFRoZSBGREEgaGFzIGRl dGVybWluZWQgdGhhdCBz cZLfZDIzQSMrEZ7pQFZd abQmmHFab3QyjVEkzvEq k7JentEqCQWhJTO8BaMN eJNkwO51cIHqhl64PCBx SEBoZ3ZrMBCrNLRqWDgt jeYosKzhDYItj97giANs lgFcb6VjlbMyXUIrD7bi LLBhjNGerTVhb7FdmJ9q oXThubQhFYU3tFLfPQWd zX6hMJSuyKxtCTRviN5u A5KrYEcyPj7vRIGxtriw JV9wee80TU1llqRpIJ9a jtMoER38xpNsPvQvBVk7 DArsL9gNPDGvSODqLNZ6 BPoxGjvjFNW6onTeBCPx d9WpLYfuB9feE50wmNjr mPj6gMInsUztkZRjpJP4 IGV8jQ5hHeyxBKX3 Technical component was [facility]'s performed at (test code = [facility], 2778) Department of Pathology, [address] [place] [id number], Professional component [facility]. ke's was performed at ([facility], code = 2779) Department of Pathology, [address] [place] [address], [facility] [id number] 08:38:29 Test Item Value Reference Range Interpretation Comments Case Report (test code = Flow Cytometry 104) Report Case: [id number] Authorizing Provider: Tamera Fowler, Collected: 04/14/2021 11:50 AM Ordering Location: [facility] Received: 04/14/2021 03:20 PM Pathologist: Codie Maldonado MD Specimen: Other Flow Interpretation (test y3kzgFTlJQKpjYW4UvVq code = 3364) YTLjm1vdb2AojCWikTEn UHaeqVPwjjEhrg00kWK6 bA01QB5vAUMaKwX2SLTt nfB1Llz4ZWPyGDJdjKLo M236s4day5dowtIznSZ1 gNazAXBvnywfHgF9NYju ZBEwurwfRBf3PNnaDGQl eJZ7GFJfvSIkI7UnOCXh JM1kvhp4LBY8LXjqVAWb JhY4KGZshYBtNRVslKqr BPrup623PAE2BaAhVROb jzWcvExwoV8cFjLuNDUJ Cb7ZI5lAXBdGCI7UPBWf VBKSIGcPOUUYMR4CFXHH LA6KQRXTXYrcaBAmCJ6d TElNSVRFRCBTVFVEWSBE AMYcPR2yPZENX8EWTStl UkVEVUNFRCBDRUxMIFZJ VOPCXFwEJNNbR7VRPFBD AC4URcWoOQGujcGlLM9X BH1XRw6RXICUMzXHLTHU ODrnLW7RGAsFOTyOCtIX REVOVElGSUVEXHBhciAt GN9AYANMDQVXXM8ALEBw X2OYVOVOV8ENZBPSZW9M QKuVVX1PGXMBAICriTSc fQ== Flow Interpretation f6zpzBHzUVRxnDK2ReMz Comment (test code = ZQOto8avd1RyfGTowALr 3368) SSasqKHexeEhze09aXM3 vY84RI1yZFEcHtQ9AEJq wsZ6Zgu2IJPoLYDthBDj O021q3fex5mohfHhzRW4 aWaiMOZxpzwtBmO9RWav QDIvzikwFEj3YBezJFOt xPQ0HKGjcORqE3IzATAw RI5rlrd9VUO1BNoiGKNk ZpM1MPMbnJZiUGSpiSem IYtwb951SGY4BxWyXGUm bsAynXulxV6vFkGkTXTD sMMni7T5FEpwrNNjhBfs aXRlZCBieSBtYXJrZWRs xSJtIPF4K8AgKEDguOuy tazgTtnbaGQ6TMocXjAn IlcwX1JZGNduGYUaUTAc TLeccae2rOIyKlVuplBz eBJwZV9kdLi3FJFvauGa kpSgXN40WG2bce23nRXs nUCeP6XatWYdTB0ohi5v FW2itG5poR0lwX2bBRQm TKdaztyvFB6eZJGyGmZi xf5mWbLuPQmfphLxhjAx YEReNK14bNJexLawXUTz CD96ByieIJE9 CPT Code(s) (test code = e1tpfHKeZFXkcVP6JgUk 3357) LCNgx0zcq6KpeMYkkAZt MXdidFYlxtYuvu29rZB3 gK67YM8lAWZkSfB8QFGs joL4Mow1IFWmUZQmeTJf Y792h5pcc3vupnRhwCW6 uJfuNJWwvfjxMbI4HUpo EHEfqpvxLNl6CNsnBDVf mBA5TAXtqTCsN4OgLEWp BX8jfaf1TLQ4ETquVBKl UfS2OHXxnMHcACItzKvb NWanz577KAM5XqXiHPWg c6W5kkLcMaFwYKNyyYD6 coD5NZTgCX2ivptji1ua QLjjIYcqNRXjjpN3xoN4 RCLsdAMaM0MgpN0jOVUo BK9vdkfco8htYGV5CZah YXJkXHBsYWluXGZzMjIg ODgxODhccGFyfQ== SPECIMEN SOURCE (test r9owaAMtBXCluPG5JfDy code = 3377) MMHte5djg2XrhWGjeGXc STvuvIYpoiUfkl08kVC2 pW70SJ4xVFMwFzG9WYGn fhT0Pyo7ZQLaVNHlhEDy C983m0pzr2lhfgGthTL0 uVbrVKIqcaprViI1CNtj EPThmxzuKJu8PHxwPPVy pFY5BJXtqOFmK7UvGNBx AX7tonj5FWG1QIjbTFPr OmP0FMLiyRFlCZXgjOdh JEjmv467RNQ5XmFtIOYk reKfnUjxgJ6dXqJyTOEE gr8qE1bgEPq4ZV7dEHZm bJF8QSpjZVRtvd0= CELLULAR BIOMARKER o2puiZTpZRZlhFG1YvRs ANALYSIS (test code = PCZch8anv8SpeJTviBJh 3380) UOglfDYrkaYojx42zXD6 zO96EZ4uTRJoOlG9APAe htI9Pkk4BZOkCOIycESr F727q8dqp1dechWwiNQ3 MBDpHRHjX2SiYM6zRAQe tDZrE41jaMIbALZ4YAQz DPAfyFSoQHCwTGA4AJGa lJLoP3meLXOkNH3cyydm VRlzDMckLIYurBU3PXAn iQYaO7LyNNAdJDdnFBYn zqk6BxNdOy2byXUpsGwy MFxwYXJkXHBsYWluXGZz VqNiQ2TlRERIKLgex3Lk DeWqYR0mMAWiXAwkP2B3 Pifcs6MwFvMeUV3pPD0k LUMxFZCSYEfaO7IuNSpo I5VrQVuzJ0VwFRFFJSGk LCBDRDQsIENENDVccGFy fQ== IMMUNOPHENOTYPIC FINDINGS o1bshDUkERWusJD0RaPd (test code = 3379) RKPoh4dwl7HdwWRpxXSw ARhruZQokmKasv12fLO9 cU90AX3eWBKuOqC6RIGf snH5Arm1NJUdZEGkpXBm T730k5kxd5wtbgLlnXJ3 GAHmQAKuQ9SxBK8hCLZb aBFjF59knZBsSJS7NHXc CIJomDOqSVRpZYK4OLHe rWZvB1hyYOEySD1jujhk VQsoNVzzCPHxaIY7AUNo gMPhF0YiOAJoNFgiYSXk dzh5CuWxKo8ecSJzxBwj MFxwYXJkXHBsYWluXGZz GqMzL2GqIKAlBBQcsVMb FVSuDRGboAc2hSmqFJWp UKPpKy3jAFUxTBZvYY0r flx+YI4lxqUXuQ8dUNPx p8HxPPFqeeDyUUUfePJy tnQiMnQyO9SzDYYbKDTe OCjbQJKdY7VcPR9jwGPl VMJvSKEew5gog5phtsha nU1ibXpmpNbxirTdNOZt JZyhPZ36uMCfOXS5YROz clxjZjBccGFyXGNmMSBM mU2nyY8ezEAmowvjRdRn P1u6DYBLRESySGv9eQQc h0Z9kUKrJRSbrIQrkHAs ZKYmJuIrg4VykI34QOwi Z7YusFTkKGUuN8VmbTVi f8iaunWnJVNDMOeLTSej oeG8yY5fg5RbRFOiTKCs LpOjI5FaDATcfkMrbr4v mBEvHWD5pBPnd4Qhw37n u4EsrTqiPDLugnQJPXCz oMypLT76kUiwwxDmH5Vj IGFuZCBDRDUuIFx+QiBj ROvesvFvioOoBXToGP34 pAFciWwdJDPdTL57Vzhy BBIndqusIXEuWDjeuX5j DX8jz66xX4s1pTNigB8r mMnfnIfnrlM5TWHgRSzx JW79fOUcEEAqTbbbY2W8 AGDzjdKorYoqvUZnt1Tx fMBwebYogBRkGMY1VIXe i0ZfB5XxHRnxZB14jW7i lGUutiOiv29aapfrECBg AnNuWE3eVAVlvPEaLWHh yPatVMUrliUgkM6vs7S1 dGVzIGNvbXByaXNlIDEx JnSaTO4gRWKqePQzGEMo bGxzLlxwYXJcflxwYXIg VGhlIHJlbWFpbmluZyBl mzUseKKrEL2scRr5JZLv svTkhoMuMT99OI3uzhWn VKIfKSRcCEtizghpbp0q DKgyxIS3p8a6qPWvj3pr IGNlbGxzLCBhbmQgZGVi cmlzLlxwYXJ9 DISCLAIMER (test code = d1inkLNcWNLugUD6VwCk 3363) HPUom0uua5NpjBGnbGSr ZQhxaMIunvFdgy02dKH2 vE66IL3sGPMgWsR6LBPp zbO4Bcd3NPYuFAThlVFz L637h0rqr8vgnrQfzKU4 sSfzGAJqwwbrQuE9PBen HUZfzixbLPy7TNqoDHMo yAA9LYOeiMHvA3NxTJMs BI6jbza7RHQ4SDyxQBVf KqO1ASTziHNdFFKcqZgu PQkno942QLA0QwNqFBPb qtVojRkbsW9uWzJtAcRS fNAyLEZ8BOZ8evU7HSPh EUIlelYmp7YiOEZyonSr wXeimYMhfTUrTb5qkJRw V4FiA1xvcbEmcUOfwSZ4 aWNzIGRldGVybWluZWQg YkpzFrL4zD1aJJZ8FeSS mGhjE7KoQLGtkTTgfHJK GB11VCIstITcSPLgZQnw dDI4VQPdn7JjAbMhfyJk qTKypmLuKZ3mTXGvfZGm urUcVOV7FCIyJMRTRgGp SWPzq0StFE3hWDVrfTrd YVTqcN4rg1LuWAOdr36q IFRoZSBGREEgaGFzIGRl dGVybWluZWQgdGhhdCBz cRWcAIOxMPDcBG5tUWSn zeHjkENyy5VkpTVqqmAl q1YsfnOrZJZdFGR4DfKW fOMvbO87kPCivl62DXKa CGLkN1BpTOTqJHHvRJox rjIriTmeLIKqu80ewUKh feEwt9NeakQrVCNzC8jc OFZqzMDgvGPhb5VlqI8b gXHyjzExHNA1uCWdZIRs fZ7hZYNikSbyKFOmpL6n T9JbGXvbBs6vUQNqtzme OI4zss76VE1vsaHuWC1d vhHkOW25brNdTfEgZCa5 FGsvN5zCIRFqQMHcWGX1 FYvlRiayCYP2mvNeMGOz w8WqHPlgK7kbG01lgVye xXm5iDHtfVolyEYylTM1 BXS2xV2hGvxwQHS3 Technical component was [facility]'s performed at (test code = Medical Center, 2778) Department of Pathology, [address] [place] [address], Professional component [facility] was performed at ([facility], code = 2779) Department of Pathology, [address] [place] [id number], [facility] Rqbihsdwy0279-72-21 08:38:29 Test Item Value Reference Range Interpretation Comments Case Report (test code = Flow Cytometry 104) Report Case: [id number] Authorizing Provider: Tamera Fowler, Collected: 04/14/2021 11:50 AM Ordering Location: [facility] Received: 04/14/2021 03:20 PM Pathologist: Codie Maldonado MD Specimen: Other Flow Interpretation (test e4jcyRAhUHTwaFQ6ZmLl code = 3364) QPMuh9xgy8XbcFDaoQEn RAzwzWDpckUlfd97wMZ8 xT75CZ6nNHAvMcQ7OSXi azQ5Tgb6WKQfEJEwoYIx I192f3tbf7szrkDpbED7 xPxwETIffyvjKwO3CNtl DMHaeqacRTe6YZsdARUy cFM1WWPheKPnR3BzPEVy WV8pmhi4FWX8EHagYUFh HxP9LYZqgEFnEVKikUmp QEamo881YQJ4IhCcNYWu jvYzxLjnjS8dQwTlNNJS Fo2RI2kSCPbKCF6VWKZo LNBAFPqGEEHVKW9ZNIZQ OX3ZDJAZYJyvmVNtQH8b TElNSVRFRCBTVFVEWSBE DIFuUP8gJYCDD9CYSVyq UkVEVUNFRCBDRUxMIFZJ KNNPOUpBISAjO4HBFLUU NK7NRrQgHDSfckIqJZ9Q KP3LRr8UFOEKDdNEIYNC PKknQE8WBVgGLQxGFbHE REVOVElGSUVEXHBhciAt RM1UDFEQXAIGNA9IWMPy O9JUCNPRF2MAGGUVIR9L PNsAYM0MVVRJHVLtbARt fQ== Flow Interpretation z7ftgMOdXBIxvOS0XvZv Comment (test code = VPQgc4xhd6YegTDtbWOm 3365) KXwbmJUnwpErfa83gOK4 xR10NN1bULGnNlX4YLDz iyR6Xgj1OKKzTDNyuJSi J476b3yyc9xnhjFrkEC4 sVnlMQAeqzilTfE2RCxk EMWymabkVRr4REdjYBMw eWM8JOAmjYKoV6XwFJPa AJ9mvcp3SYC7ORpnTBHh CdI6PAEyxKOfFZVgzIou OSoid011ZBY2MhJhGHXx sxIovYpioP9tEeWkYEXK rLNte1G5KHuuoFQowSmh aXRlZCBieSBtYXJrZWRs dGQuJSI9O2KlOSInjPlc gghnRlheiYQ2EGjwJjTa ObcyH4ERRKrjYVTdWKCi RNhyheq6cYYsIkFlrdFk dZWuVU2trSo1MWJdbyOx wkXuFO88GS1poy34iGVz xTFuP6RfnRZiPQ8gcp7v UT1qqU7evM5gxK3uTBBy HMqqsodsWN1yTAIqDkUb lf0bBoEqEQenkcQhmgPm WQXaHJ17eDWmzLkmVWYs WC92TreiNLO1 CPT Code(s) (test code = e3ymuFPmMGLlvAK9KuJx 3357) VEOar0jmo4HylQCwbZDy ROkfcUOjezYuyj28lAY5 yF29FQ8kGQGcEhM4OWBo jnR6Ytx4QYMuFKUnjHMr Q582d9xdo0yzymIuoAN2 wKfyIPAjwsanSdY8GNrh NGHhhefeEMs5UErmDQUl dMK6AHSppSRsF6XqRWJj EZ1rhiw1FXD5DPozXITa InH4ROZkfDIdXYNfsNuq EXaiy323GQJ2KzTiNVMm v3R4klUwVyIwHACkjQN5 zuA6ECKbZT3tzlxkg6uo PPqiIBrnQMNlbnL1gqU6 FJMmqFBlM8GdoF8cFYMu FE2jckfze9jqBBX9EDyb YXJkXHBsYWluXGZzMjIg ODgxODhccGFyfQ== SPECIMEN SOURCE (test x8ixdZSxDHTswGV9CgAh code = 3377) IVVen7glw1CrnXNguBNq RHcijCUemuUhcg69uOU5 yW54BG7nXVIdImA4WWNx cdZ5Pfw6PTQfTFSeoJRl D908t5jwt8hrazLldCU0 vGxnDHJjffdzWdT4FSxa YJCxsafoJAg7SLcdMKLm uKH6USGatSYkY4RsTCVx TV5mrui9QDI0RXmjVNWo JjR6WEBezKBpBLLvgXdy KBwms676IJS9OyMaMCDb voTgnQhjpW6oRrGzDMXO in5wM6whIJi1PK2fKGOk kAU4FZrnKNQvdr1= CELLULAR BIOMARKER x3qumSGgHLYafQW4TsKv ANALYSIS (test code = SBSqm4lqf5YotZKprUSe 3380) QUrikSDlbaUuzp99oFI9 uM27JU9tWEIxAaN3FQTv jsA5Lgq2KEAtDBIyaJHl M239q4cch8zvxtZfsBP8 PFMfDMYaR9KpLY5qUAPh wENsZ00jrWUnZCW4VFGf GRNjlCXfUJLiXTQ3TDWt lVNfQ7bfLTBaPV4uexym PWqnZFjjANFqcCV1OOIc vHLeK0JeZTExVPywHSNs jej3TpCuLo3ynGEqmRmh MFxwYXJkXHBsYWluXGZz AdLjB9ZbRODTAJbwr1Mm CbUaZL8dPZLeIEksY0C6 Wyvfj0UwIiXcRY7oYP2n WYVvBONZUXltZ9HuVAmc H5WqXSbeA4UhJDFDXMSa LCBDRDQsIENENDVccGFy fQ== IMMUNOPHENOTYPIC FINDINGS a7axfKVvCOOboOD8VzWw (test code = 3379) LRDiq6wox8LomUMxhVQg EChffHVcluFzui26qXM4 hH68SL3cYJKdUbT6YQCn vaQ8Feh7JCTpPDNddUMx N687l2lzv5ghhmRbaGL1 JPQhPIQuR3KuLB0mZREz zPLrO04bgDQuPIX8HPPe UWDuxEPwHFOpNLB6HEAr jRZyH9eiQNHdRG3tjzts NZwxKMpaLLFnpXK9MNOt gOFfY7NxOEXcMBdiTQNv foi3IbGjSk2cjPCdwEcq MFxwYXJkXHBsYWluXGZz AoTzA5OvQSMhPZKviJAu NIAnVRIyuMp2nWagHXGa JDKwZw6oCWVfHLEmKR9e flx+AM6lzvKZaJ9mHSSo q8MoSRZuabIoBNUbbUJp ipEaUcLzC4KfTOAzZBQf OWehCZSdP3NhQU0ctQHv WYTmNLSgg5lhr9lhpydt cU5taEegvGwsmhRyMCQj DCxuVD96wPYjPLR3CYEx clxjZjBccGFyXGNmMSBM oH1dnQ2ggRPhqelrBnHj N3e1KRCGVDTaPWz9tOZc u1X9xSVnDLMkxVFvhJHe OVCzXnKau6SwqY13LMfn I7IagQTyNADmT8ZguOIt d8zwvnEbWETAMTtQNChj noG3lP1ym8NfZIRmLLOf YuQaZ2PrFELtstPunq0d mKQvTJI2jASqp1Civ86g p7QcnVlwPRHxciUZFQPz aDdvAO41uCbbpdXxG7Cs IGFuZCBDRDUuIFx+QiBj ZZmzctYdfbZrXSGsIZ52 sXRbsVhaQBNiSP33Dydi HBZyiouxIPShVYrcgZ8w SK7fz17kM1b6wCAckW2z sDiepOrnydQ9KZQqPUtm RH66cIDbXFEnCvuhK7N7 OLIeacPjnKadiMQwn1Im vDAtabFhgIFlLYC1LWYp z8PqF4GhDAduQV87tL7c jTQbvnYnc23oqnrnYWSd JbCgDI8mDMTeuZGbABHk oWilPVEibwIkpV9aj7O7 dGVzIGNvbXByaXNlIDEx LuIeKL3bLFArjYBuVDFs bGxzLlxwYXJcflxwYXIg VGhlIHJlbWFpbmluZyBl wtIckTUtNF2vnIm3WPIw elQqqsXnNR25OL0adaBb SCDcFDJeMIflrnzslm0c EQmqpAK5w4w8kEDwg2sh IGNlbGxzLCBhbmQgZGVi cmlzLlxwYXJ9 DISCLAIMER (test code = z6zolCZdCOBwwKZ7SjLa 3365) ICAwv6ilx6RodVPuiTZc KKjviXRbbnJqtq07dWJ3 oC53JY3oLUWvKmH2FEWr gnC5Qtb6HSQnCMZogRFv H167r4dyw5jiyiPhcON3 yNviGSHbnpxaVcC6FEit LGSmcsyjMYu0BLgwDIZw yNV2ZHQtnSHrW0TfXNDx IZ0lxow9KJV5LPpuZOOc TyS9CQWbaQTtYGUkyGbx SAgmd799MQY9HpOqXBDs piPqkXunuV5cJpBiRlSZ nLEvKDZ4RCI0acI5TCOg PBFaauJbe5KoHUXfxvQm hLrwxOXgzHGuOa7xwYHc Q3UhQ6nzkpTsrSCwuBV4 aWNzIGRldGVybWluZWQg WwokSpZ5yT4yMMW9BqQA fOboY2WrPSUxdSKkwMZZ BZ21MLOxeTTzVTRvHRgg pUF1XPMeh3DjAlIukfIs pLFwplFePS4oQXZenYJz dpVqMLR7CDBxSUQIEpQe OPSbi9CoQK4fWROzlYsy GOYzuG0yn5NoPJXuk77g IFRoZSBGREEgaGFzIGRl dGVybWluZWQgdGhhdCBz kJPsGSJhDKMcBE3kWXHr qeFugFOwk7TrwPTwopOw k6OlbbGyRFDxUQM7QdOI xQCzyH88eXFdks42DBTr YENtO1CjVVGgGMLnWDgm gmJcqMvfDDKho01fdPUr iwAwm7JnxzSlYWRdG7rq UAIceOMscEAlo2HvnQ8q dWIvxaPuITZ7sKZjYPOo zX7uVSPyaAcsJFSeiQ4h C4WlJYegBr1fCQKqhofe YZ5ppi87HJ6ixtKtXW2w ngRcDE75mvQeQcHwMJo3 MRptG8jFRGMdGRLlBAX3 NDscLhvyECA5uaWeZGXb a8RtBWjzE7zxY20yzZgh xHz1kYRikCafzBDacMB4 PNQ5wY0pRqizYFE4 Technical component was [facility] performed at (test code = [facility] Center, 2778) Department of Pathology, [address] [place] [address], Professional component [facility] was performed at ([facility], code = 2779) Department of Pathology, [address] [place] [address], [facility] [id number] 08:38:29Flow Cytometry Report Case: [id number] Authorizing Provider: Tamera Fowler, Collected: 04/14/2021 11:50 AM Ordering Location: [facility] Received: 04/14/2021 03:20 PM Pathologist: Codie Maldonado MD Specimen: Other BRONCHOALVEOLAR LAVAGE, FLOW CYTOMETRY:- LIMITED STUDY DUE TO MARKEDLY REDUCED CELL VIABILITY (SEE COMMENT)- NO MONOTYPIC B CELL POPULATION IDENTIFIED- NO ABERRANT T CELL POPULATION IDENTIFIED The study is limited by markedly reduced cell viability (16% by 7AAD), the majority of events analyzed represent non- viable cells, non-hematolymphoid cells, and debris. B cells are essentially absent.18225Vxicxkyrhtdjmkc lavageCD8, surface-kappa, CD56, surface-lambda, CD5, CD19, CD10, CD3, CD20, CD4, AN69Agrismtu Viability: 16.1% Number of Events Acquired: 066350 The following populations are identified:Lymphocytes: Bright CD45+ [...] developed and their performance characteristics determined by [facility] CenterTheyhave not been cleared or approved by the U.S. Food and Drug Administration. The FDA has determined that such clearance or approval is not necessary. It should not be regarded as investigational or for research. This laboratory is certified under the Clinical Laboratory Improvement Amendments of 1988 ("CLIA") as qualified to perform high-complexity clinical testing.[facility], Department of Pathology, [address] [place] [address], [facility]bf[facility], Department of Pathology, [address] [place] [address], Pqbp fluid cell count with dolrhtqhsmge7430-16-66 17:02:34 Test Item Value Reference Range Interpretation Comments Appearance (test code Slightly Hazy Clear A = 9335-1) Color (test code = Colorless Colorless, Straw 6824-7) RBCs (test code = 518 See_Comment H [Automate d 46878-5) message] The system which generated this result transmit griffin reference range : <=1 /cu mm. The reference range was not used to interpret this result as normal/abnormal . Adjusted WBC Count 179 See_Comment H [Automat ed (test code = 44218-0) messag e] The system which generated this result transmit griffin reference range : <=5 /cu mm. The reference range was not used to interpret this result as normal/abnormal . Lining Cells (test 0 See_Comment [Automat ed code = 29394-2) message] The system which generated this result transmit griffin reference range : <=1 /cu mm. The reference range was not used to interpret this result as normal/abnormal . % Segs (test code = 7 % 32581-5) % Lymphs (test code = 13 % 30133-4) % Monos (test code = 79 % 38829-9) % Eos (test code = 1 % 92285-5) % Baso (test code = 0 % 35551-6) Container Body Fluid EDTA Tube (test code = 2873) Lab Interpretation Abnormal (test code = 77198-3) [facility] with rkcpndzbywza7283-52-82 17:02:34 Test Item Value Reference Range Interpretation Comments Appearance (test code Slightly Hazy Clear A = 9335-1) Color (test code = Colorless Colorless, Straw 6824-7) RBCs (test code = 518 See_Comment H [Automate d 09593-6) message] The system which generated this result transmit griffin reference range : <=1 /cu mm. The reference range was not used to interpret this result as normal/abnormal . Adjusted WBC Count 179 See_Comment H [Automat ed (test code = 91920-2) messag e] The system which generated this result transmit griffin reference range : <=5 /cu mm. The reference range was not used to interpret this result as normal/abnormal . Lining Cells (test 0 See_Comment [Automat ed code = 73102-8) message] The system which generated this result transmit griffin reference range : <=1 /cu mm. The reference range was not used to interpret this result as normal/abnormal . % Segs (test code = 7 % 02837-2) % Lymphs (test code = 13 % 25760-5) % Monos (test code = 79 % 76663-9) % Eos (test code = 1 % 91666-6) % Baso (test code = 0 % 08520-5) Container Body Fluid EDTA Tube (test code = 2873) Lab Interpretation Abnormal (test code = 06705-1) [facility] with qytpuyucfgol8904-05-51 17:02:34 Test Item Value Reference Range Interpretation Comments Appearance (test code Slightly Hazy Clear A = 9335-1) Color (test code = Colorless Colorless, Straw 6824-7) RBCs (test code = 518 See_Comment H [Automate d 00899-3) message] The system which generated this result transmit griffin reference range : <=1 /cu mm. The reference range was not used to interpret this result as normal/abnormal . Adjusted WBC Count 179 See_Comment H [Automat ed (test code = 85383-4) messag e] The system which generated this result transmit griffin reference range : <=5 /cu mm. The reference range was not used to interpret this result as normal/abnormal . Lining Cells (test 0 See_Comment [Automat ed code = 47708-7) message] The system which generated this result transmit griffin reference range : <=1 /cu mm. The reference range was not used to interpret this result as normal/abnormal . % Segs (test code = 7 % 80401-5) % Lymphs (test code = 13 % 37391-0) % Monos (test code = 79 % 12959-8) % Eos (test code = 1 % 69634-8) % Baso (test code = 0 % 52367-1) Container Body Fluid EDTA Tube (test code = 2873) Lab Interpretation Abnormal (test code = 75354-6) [facility] [id number] 17:02:34 Test Item Value Reference Range Interpretation Comments Appearance (test code Slightly Hazy Clear A = 9335-1) Color (test code = Colorless Colorless, Straw 6824-7) RBCs (test code = 518 See_Comment H [Automate d 61939-6) message] The system which generated this result transmit griffin reference range : <=1 /cu mm. The reference range was not used to interpret this result as normal/abnormal . Adjusted WBC Count 179 See_Comment H [Automat ed (test code = 93772-2) messag e] The system which generated this result transmit griffin reference range : <=5 /cu mm. The reference range was not used to interpret this result as normal/abnormal . Lining Cells (test 0 See_Comment [Automat ed code = 90192-2) message] The system which generated this result transmit griffin reference range : <=1 /cu mm. The reference range was not used to interpret this result as normal/abnormal . % Segs (test code = 7 % 34694-1) % Lymphs (test code = 13 % 43098-0) % Monos (test code = 79 % 35251-3) % Eos (test code = 1 % 29613-1) % Baso (test code = 0 % 29487-3) Container Body Fluid EDTA Tube (test code = 2873) Lab Interpretation Abnormal (test code = 90528-2) [facility] [id number] 17:02:34 Test Item Value Reference Range Interpretation Comments Appearance (test code Slightly Hazy Clear A = 9335-1) Color (test code = Colorless Colorless, Straw 6824-7) RBCs (test code = 518 See_Comment H [Automate d 84025-0) message] The system which generated this result transmit griffin reference range : <=1 /cu mm. The reference range was not used to interpret this result as normal/abnormal . Adjusted WBC Count 179 See_Comment H [Automat ed (test code = 52532-1) messag e] The system which generated this result transmit griffin reference range : <=5 /cu mm. The reference range was not used to interpret this result as normal/abnormal . Lining Cells (test 0 See_Comment [Automat ed code = 00280-1) message] The system which generated this result transmit griffin reference range : <=1 /cu mm. The reference range was not used to interpret this result as normal/abnormal . % Segs (test code = 7 % 05160-8) % Lymphs (test code = 13 % 08726-7) % Monos (test code = 79 % 42466-1) % Eos (test code = 1 % 76269-8) % Baso (test code = 0 % 00320-4) Container Body Fluid EDTA Tube (test code = 2873) Lab Interpretation Abnormal (test code = 93333-3) [facility] with [id number] 17:02:34 Test Item Value Reference Range Interpretation Comments Appearance (test code Slightly Hazy Clear A = 9335-1) Color (test code = Colorless Colorless, Straw 6824-7) RBCs (test code = 518 See_Comment H [Automate d 09259-5) message] The system which generated this result transmit griffin reference range : <=1 /cu mm. The reference range was not used to interpret this result as normal/abnormal . Adjusted WBC Count 179 See_Comment H [Automat ed (test code = 72112-0) messag e] The system which generated this result transmit griffin reference range : <=5 /cu mm. The reference range was not used to interpret this result as normal/abnormal . Lining Cells (test 0 See_Comment [Automat ed code = 77930-8) message] The system which generated this result transmit griffin reference range : <=1 /cu mm. The reference range was not used to interpret this result as normal/abnormal . % Segs (test code = 7 % 37694-9) % Lymphs (test code = 13 % 87340-7) % Monos (test code = 79 % 56758-4) % Eos (test code = 1 % 21141-7) % Baso (test code = 0 % 25037-6) Container Body Fluid EDTA Tube (test code = 2873) Lab Interpretation Abnormal (test code = 19558-1) [facility] WITH [id number] 17:02:34 Test Item Value Reference Range Interpretation [...] EDTA Tube (BEAKER) (test code = 2873) [id number] 16:01:11 Test Item Value Reference Range Interpretation Comments Cytology (test code = See Separate Report 2629) [facility] 16:01:11 Test Item Value Reference Range Interpretation Comments Cytology (test code = See Separate Report 2629) [facility]2022-01-12 16:01:11 Test Item Value Reference Range Interpretation Comments Cytology (test code = See Separate Report 2629) [facility]2022-01-12 16:01:11 Test Item Value Reference Range Interpretation Comments Cytology (test code = See Separate Report 2629) [facility]2022-01-12 16:01:11 Test Item Value Reference Range Interpretation Comments Cytology (test code = See Separate Report 2629) [facility]2022-01-12 16:01:11 Test Item Value Reference Range Interpretation Comments Cytology (test code = See Separate Report 2629) [facility] [id number] 16:01:11 Test Item Value Reference Range Interpretation Comments CYTOLOGY RESULT POINTER See Separate Report (BEAKER) (test code = 2629) CT, CHEST, WITH IV [id number] 13:03:00Unlisted Reason for Exam - Click Yes and Enter Reason Below->YesUnlisted Reason for Exam->cancer of right kidneyH[facility] : 1960 Sex: FFINAL [...] HEPATOBILIARY:Subtle, ill-defined hyperdense focus in hepatic segment VIInear the dome is unchanged and may represent a vascular shunt. No additional focal hepatic lesion. No intrahepatic biliary dilatation. The gallbladder has been removed. SPLEEN: No splenomegaly. PANCREAS: No focal masses or ductal dilatation. ADRENALS: 2.5 x 1.9 cm hyperdense nodule in the medial limb of the right adrenal gland has marginally increased in size. No left adrenal nodule. KIDNEYS/URETERS:There are subcentimeter low attenuating lesions in both kidneys, too small to further characterize but likely represent small cysts. Stable postsurgical changes of the right kidney related to partial nephrectomy. 1.6 cm focus of parenchymal hypoattenuation along the surgical resection margin as seen on coronal image 61, similar to prior. PELVIC ORGANS/BLADDER: Urinary bladder is unremarkable. Uterus is not identified and has presumably been removed. No adnexal mass. PERITONEUM/RETROPERITONEUM: No ascites or pneumoperitoneum. LYMPH NODES: No pelvic sidewall, retroperitoneal, or mesenteric lymphadenopathy. VESSELS: Atherosclerotic calcification of the abdominal aorta, branch vessels, and iliac arterial systems without aneurysmal dilatation. Portal vein, splenic vein, and central superior mesentericvein are patent. GI TRACT: The large bowel [...] omental fat without inflammatory change. No additional focal soft tissue abnormalities. Stable well-circumscribed sclerotic focus in the left ischial tuberosityand right symphysis pubis, likely bone islands. Stable nonspecific sclerotic focus in the right sacral ala. Stable mixed lytic and sclerotic metastatic lesion in the posterior right sixth rib with associated soft tissue component resulting in pleural convexity. No new osseous lesions. IMPRESSION: Marginal interval increase in size of hyperdense right adrenal nodule, worrisome for disease progression.Right apical spiculated pulmonary mass and mixed lytic and sclerotic right sixth rib metastasis are not significantly changed relative to PET-CT 12/04/2020 Signed: Anastasia De La Garza MDReport Verified Date/Time: 03/04/2021 13:03:20 CT, [id number] 13:03:00Unlisted Reason for Exam - Click Yes and Enter Reason Below->YesUnlisted Reason for Exam->cancer of rt kidneyWill this procedure require oral contrast?->Yes [facility] GROSSMAN RAUL : 1960 Sex: FFINAL REPORT EXAMINATION: CT [...] PET-CT 12/04/2020 Signed: Anastasia De La Garza [facility] Verified Date/Time: 03/04/2021 13:03:20 RAD, SPINE, THORACIC, 2 [id number] 11:28:00Reason for Exam:->Thoracic spondylosis without myelopathy [facility] 1960 Sex: FFINAL REPORT Radiographs of the thoracic spine HISTORY: PainCOMPARISON: None available. FINDINGS:Bones:No acute displaced fracture. Osseous alignment is within normal limits. Joints:Scattered degenerative change. No osseous erosion. Soft tissues:The soft tissues appear unremarkable. IMPRESSION: Scattered degenerative change. No osseous erosion. Signed: Juliet Whiteside MDReport Verified Date/Time: 02/19/2021 11:28:16 Reading Location: [facility] Reading Room [address] [place] [address] TISSUE [id number] 16:00:10Surgical Pathology Report Case: [id number] Authorizing Provider: Alysia Shell MD Collected: 12/29/2020 11:19 AM Ordering Location: 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 Signing Pathologist Direct Phone Line: [phone] signed by Mirza Bush MD on 01/04/2021 [...] evaluated Immunohistochemistry technical testing was performed at [facility], Pathology Laboratory where it was [...] clinical laboratory testing.RAD, CHEST, 1 VIEW, NON [id number] 16:15:00Reason for exam:->ChT removalShould this be performed at the bedside?->Yes [facility] 1960 Sex: FFINAL [...] bone abnormality. Extensive subcutaneous emphysema Signed: Ambika Jack Verified Date/Time: 01/02/2021 16:15:54 Reading Location: [facility] C013X Ortho Consult Reading Room RAD, CHEST, 1 VIEW, NON [id number] 13:49:00Reason for exam:->ChT clamp trialShould this be performed at the bedside?->Yes [facility] 1960 Sex: FFINAL [...] Annamarie Vazquez MDReport Verified Date/Time: 01/02/2021 13:49:07 [id number] 11:40:58 Test Item Value Reference Range Interpretation Comments MAGNESIUM (BEAKER) (test code = 1.8 mg/dL 1.6-2.6 627) Pl Sql Programmer ID - DBBASIC METABOLIC [id number] 11:40:57 Test Item Value Reference Range Interpretation [...] m DATA TO CALCULA TE ESTIMATED GFR. Pl Sql Programmer ID - DBRAD, CHEST, 1 VIEW, NON [id number] 07:48:00Reason for exam:- >chest tube managementShould this be performed at the bedside?->Yes [facility] 1960 Sex: FFINAL REPORT RAD, CHEST, 1 VIEW, NON DEPT INDICATION: chest tube management COMPARISON: Prior day's exam FINDINGS: Portable frontal view of the chest. IMPRESSION: Support Lines: Right-sided pleural catheter. Lungs and pleura: Trace right apical pneumothorax is unchanged. Small left effusion. Remainder of the lungs are clear. Heart and mediastinum: Stable contours. Additional findings: None. Signed: Cassie Murrayeport Verified Date/Time: 01/02/2021 07:48:22 Reading Location: [address] Neuro Reading Room RAD, CHEST, 1 VIEW, NON [id number] 14:44:00Reason for exam:->cht to water sealShould this be performed at the bedside?->Yes [facility] 1960 Sex: FFINAL [...] None. Signed: Cassie Murray MDReport Verified Date/Time: 01/01/2021 14:44:19 Reading Location: [facility] Radiology Reading Room RAD, CHEST, 1 VIEW, NON [id number] 08:17:00Reason for exam:- >Pneumothorax s/p chest tube, complicated by subcutaneous emphysemaShould this be performed at the bedside?->Yes [facility] : 1960 Sex: FFINAL REPORT Chest AP portable History provided: Pneumothorax follow-up Heart size normal. Right chest tube remains in place with no significant pneumothorax. Subcutaneous emphysema persists along the right lateral chest dissecting into both supraclavicular areas. Lungs hyperinflated with no areas of consolidation or atelectasis. Signed: Elder Francois MDReport Verified Date/Time: 01/01/2021 08:17:48 Reading Location: [facility] Radiology Reading Room BASIC METABOLIC [id number] 08:15:09 Test Item Value Reference Range Interpretation [...] m DATA TO CALCULA TE ESTIMATED GFR. Pl Sql Programmer ID - PIFELI [id number] 08:15:08 Test Item Value Reference Range Interpretation Comments MAGNESIUM (BEAKER) 1.6 mg/dL 1.6-2.6 Specimen slightly (test code = 627) hemolyzed Pl Sql Programmer ID - IVETTE LTSH/FREE T4 IF [id number] 07:44:40 Test Item Value Reference Range Interpretation Comments THYROID STIMULATING HORMONE 3.365 uIU/mL 0.350-4.940 (BEAKER) (test code = 772) Pl Sql Programmer ID - IVETTE LRAD, CHEST, 1 VIEW, NON [id number] 07:56:00Reason for exam:->CT placement/monitor PNXShould this be performed at the bedside?->Yes[facility] : 1960 Sex: FFINAL [...] Murray Verified Date/Time: 12/31/2020 07:56:22 Reading Location: [facility] Radiology Reading Room -COV2/RT-PCR ([facility])2020-12-31 01:18:32 Test Item Value Reference Range Interpretation Comments SARS-COV2/RT-PCR (test code = Negative Negative 3554744) Negative result for this test determines that [...] 564(g) of the Act.Testing was performed using [employer] SARS-CoV-2 assay.Fact Sheet for Healthcare Providers:https://www.[employer].vang/tutu/RT SARS-CoV-2 HCP Fact Sheet 51- 352839.pdfFact Sheet for Healthcare Patients:https://www.[employer].vang/tutu/RT SARS-CoV-2 Patient Fact Sheet EN 51-254464X0.pdfRAD, CHEST, 1 VIEW, NON DEPT 2020-12-30 19:09:00Reason for exam:->Subcutaneous emphysema on exam after restarting CT to suction, sore throatShould this be performed at the bedside?->Yes[facility] : 1960 Sex: FFINAL [...] Jara Verified Date/Time: 12/30/2020 19:09:09 Reading Location: [facility] C013W Consult Reading Room , CHEST TUBE [id number] 16:16:00Reason for exam:->PTX [facility] 1960 Sex: FFINAL REPORT ANG, CHEST TUBE PLACEMENT History: PTX Modality: Fluoroscopy Sedation: None Electronic Maintenance Supervisor: Yoav Gandhi MD. Estimator Printing: None. Approach: Anterior fluoroscopy guided rightlateral second intercostal space Estimated blood loss: < 5 cc. Specimen: None. Fluoroscopy Time: 3.2 min.Reference Air Kerma (Ka, r): 7.2 mGy. Technique: Informed written consent was obtained. Discussion of risks, benefits, and alternatives were made [...] covering, and sterile gown for performing radiologist andscrub technologist. After application of local anesthesia with lidocaine a 19-gauge needle was introduced into the second intercostal space under fluoroscopic guidance until there was loss of resistance and return of air confirming location within the pleural space. A wire was placed through the needle. The needle was removed and the tract was dilated with six and 8 Portuguese dilators. A 8 Portuguese multipurpose drainage catheter was placed into the right lateral lung apex under fluoroscopic guidance. Thewire was then removed, and the pigtail of [...] for Exam:->Nodule of apex of right lung [facility] : 1960 Sex: FFINAL [...] local anesthesia is achieved, a 19-gauge coaxial needle is advanced into the abnormality under CT guidance.Through the coaxial needle a 20-gauge Temno needlewas utilized to obtain two passes. Blood patch was performed through the coaxial needle during removal. Postprocedure CT evaluation of the area reveals no evidence of pneumothorax or hemorrhage. Patient disposition: To recovery for postprocedure monitoring and radiographs. Impression: Successful and un complicated CT-guided right apical core biopsy is performed. Signed: Yoav Gandhi MDReport Verified Date/Time: 12/30/2020 15:48:49 RAD, CHEST, 1 VIEW, NON DEPT 2020-12-30 14:26:00Reason for exam:->s/p placing CT to water sealShould this be performed at the bedside?->Yes [facility] 1960 Sex: FFINAL [...] None. Signed: Cassie Murray Verified Date/Time: 12/30/2020 14:26:05 Reading Location: [facility] Radiology Reading Room RAD, CHEST, 1 VIEW, NON [id number] 11:26:00Reason for exam:->s/p R CT placementShould this be performed at the bedside?->Yes [facility] 1960 Sex: FFINAL REPORT RAD, CHEST, 1 VIEW, NON DEPT INDICATION: s/p R CT placement COMPARISON: Prior day's exam FINDINGS: Portable frontal view of the chest. IMPRESSION: Support Lines: Right pleural catheter Lungs and pleura: Unchanged trace right apical pneumothorax. Lungs are otherwise predominantly clear. Heart and mediastinum: Stable contours. Stable surgical changes. Additional findings: None. Signed: Cassie Murrayort Verified Date/Time: 12/30/2020 11:26:21 Reading Location: [facility] Radiology Reading Room [id number] 08:15:13 Test Item Value Reference Range Interpretation Comments PHOSPHORUS (BEAKER) (test code = 3.4 mg/dL 2.3-4.7 604) Pl Sql Programmer ID - [id number] 08:15:12 Test Item Value Reference Range Interpretation Comments MAGNESIUM (BEAKER) (test code = 1.8 mg/dL 1.6-2.6 627) Pl Sql Programmer ID - ADMINBASIC METABOLIC [id number] 08:15:11 Test Item Value Reference Range Interpretation [...] m DATA TO CALCULA TE ESTIMATED GFR. Pl Sql Programmer ID - ADMINCBC W/PLT COUNT & AUTO [id number] 06:12:18 Test Item Value Reference Range Interpretation [...] = 2801) RAD, CHEST, 1 VIEW, NON [id number] 14:10:00Reason for exam:->3 hours s/p r apical lung biopsyShould this be performed at the bedside?->Yes [facility] 1960 Sex: FFINAL REPORT RAD, CHEST, 1 VIEW, NON DEPT INDICATION: 3 hours s/p r apical lung biopsyCOMPARISON: Prior day's exam FINDINGS: Portable frontal view of the chest. IMPRESSION: Support Lines: Interval insertion of right chest tube Lungs and pleura: Significant decrease right pneumothorax. Small right basilar pneumothorax remains. Interstitial thickening throughout the lungs bilaterally. Heart and mediastinum: Normal contours. Additional findings: None. Signed: Cassie Murray Verified Date/Time: 12/29/2020 14:10:53 Reading Location: [facility] Radiology Reading Room RAD, CHEST, 1 VIEW, NON DEPT 2020-12-29 12:04:00Reason for exam:->s/p r apical biopsyShould this be performed at the bedside?->Yes [facility] 1960 Sex: FFINAL [...] MDReport Verified Date/Time: 12/29/2020 12:04:55 Reading Location: [place] [address] Angio Body Reading Room HROMBIN TIME/[id number] 09:33:50 Test Item Value Reference Range Interpretation Comments PROTIME (BEAKER) 13.0 seconds 11.9-14.2 (test code = 759) INR (BEAKER) (test 1.00 See_Comment [Automat ed message] code = 370) The system [employer] generated this result transmitted ref erence range: <=5.90. The reference range was not used to int erpret this result as normal/abnormal . RECOMMENDED COUMADIN/WARFARIN INR THERAPY RANGESSTANDARD DOSE: 2.0 - 3.0 Includes: PROPHYLAXIS for venous thrombosis, systemic embolization; TREATMENT for venous thrombosis and/or pulmonary embolus.HIGH RISK: Target INR is 2.5-3.5 for patients with mechanical heart valves.CBC W/PLT COUNT & AUTO [id number] 09:14:24 Test Item Value Reference Range Interpretation [...] PERCENT (BEAKER) (test code = 2801) PROTHROMBIN TIME/[id number] 09:57:39 Test Item Value Reference Range Interpretation Comments PROTIME (BEAKER) 12.5 seconds 11.9-14.2 (test code = 759) INR (BEAKER) (test 0.95 See_Comment [Automat ed message] code = 370) The system [employer] generated this result transmitted ref erence range: <=5.90. The reference range was not used to int erpret this result as normal/abnormal . RECOMMENDED COUMADIN/WARFARIN INR THERAPY RANGESSTANDARD DOSE: 2.0 - 3.0 Includes: PROPHYLAXIS for venous thrombosis, systemic embolization; TREATMENT for venous thrombosis and/or pulmonary embolus.HIGH RISK: Target INR is 2.5-3.5 for patients with mechanical heart valves.CBC W/PLT COUNT & AUTO [id number] 09:46:32 Test Item Value Reference Range Interpretation [...] = 2801) PET/CT, SKULL BASE TO MID-THIGH [id number] 10:48:00Unlisted Reason for Exam - Click Yes and Enter Reason Below->YesUnlisted Reason for Exam->nODULE OF APEX TO RT LUNGHUNTINGTON [facility]ITALName: NENA [facility]URNER : 1960 Sex: FFINAL [...] imaging: NoneSerum blood glucose: 96 mg/dlCPT Code: 75106 FINDINGS:Head and Neck: No progressive theresa hypermetabolism [...] with progression of malignancy. Signed: Monet Mitchell [facility] Verified Date/Time: 12/07/2020 10:48:36 POCT-GLUCOSE METER 2020-12-04 11:40:00 Test Item Value Reference Range Interpretation Comments POC-GLUCOSE METER 96 mg/dL 70-110 : TESTED A T [facility] 6720 (PADDY) (test code = TERE Mayra [place]STA [place], 1538) [address]: Pl Sql Programmer/Techni bismark ID = [id number] for [facility] me[facility] Cornelius CT, CHEST, WITH IV [id number] 11:12:00Unlisted Reason for Exam - Click Yes and Enter Reason Below->YesUnlisted Reason for Exam->C64.1 [facility] 1960 Sex: FFINAL [...] MDReport Verified Date/Time: 10/30/2020 11:12:23 Reading Location: [address] Consult Reading Room CT, [id number] 11:12:00Unlisted Reason for Exam - Click Yes and Enter Reason Below->YesUnlisted Reason for Exam->C64.1Will this procedure require oral contrast?->Yes [facility]GRIS CARTER : 1960 Sex: FFINAL REPORT CT Chest, [...] MDReport Verified Date/Time: 10/30/2020 11:12:23 Reading Location: [facility] B1 C013X [facility] Consult Reading Room CT, [id number] 18:09:00RCC s/p right nephrectomy, known bone and lung metsOn treatment, please compare to priorUnlisted Reason for Exam - Click Yes and Enter Reason Below->YesUnlisted Reason for Exam->Renal cell carcinoma of right kidney (HCCode) (C64.1); Secondary malignant neoplasm of boneWill this procedure requireoral contrast?->No[facility] : 1960 Sex: FFINAL [...] incidental findings as above. Signed: Monet Niño MDReport Verified Date/Time: 08/03/2020 18:09:02 Reading Location: [facility] C013[facility] Consult Reading Room CT, CHEST, WITH IV [id number] 18:09:00RCC s/p right nephrectomy, known bone and lung metsOn treatment, please compare to priorUnlisted Reason for Exam - Click Yes and Enter Reason Below->YesUnlisted Reason for Exam->Renal cell carcinoma of right kidney (HCCode) (C64.1); Secondary malignant neoplasm of bone [facility] 1960 [...] Niño Verified Date/Time: 08/03/2020 18:09:02 Reading Location: [address] Consult Reading Room -[id number] 09:32:00 Test Item Value Reference Range Interpretation Comments POC-CREATININE 0.7 mg/dL 0.6-1.3 : TESTED AT [facility] (test [address] [facility] code = 1859) [facility] 7 7330: Pl Sql Programmer/Techni bismark ID = [id number] for Sindy Rajan POC-EGFR 85 mL/min/1.73M2 ([facility]) (test code = 1860) SARS-CoV-2 (COVID-19) RNA [Presence] in Respiratory specimen by LAURA with probe [id number] 03:41:30 Test Item Value Reference Range Interpretation Comments SARS-CoV-2 (COVID-19) RNA Not detected Not-Detected [Presence] in Respiratory specimen by LAURA with probe detection (test code = 68028-2) [facility], SKULL BASE TO MID-THIGH [id number] 08:50:00Unlisted Reason for Exam - Click Yes and Enter Reason Below- >YesUnlisted Reason for Exam->E27.8 R91.1 [facility] 1960 Sex: FFINAL [...] imaging: NoneSerum blood glucose: 92 mg/dlCPT Code: 03901 FINDINGS:Head and Neck: There is no theresa [...] Mitchell MDReport Verified Date/Time: 03/16/2020 08:50:31 POCT-GLUCOSE [id number] 13:24:00 Test Item Value Reference Range Interpretation Comments POC-GLUCOSE METER 92 mg/dL 70-110 : TESTED A T [facility] 6720 (BEAKER) (test code = [place], 1538) [address]: Pl Sql Programmer/Techni bismark ID = [id number] for Cornelius Becker POCT URINALYSIS [id number] 00:00:00 Test Item Value Reference Range Interpretation Comments COLOR UA (test code = 5778-6) Colorless YELLOW/STRAW CLARITY UA (test code = Clear CLEAR 22221-9) GLUCOSE UA (test code = Negative NEGATIVE 5792-7) BILIRUBIN UA (test code = Negative NEGATIVE 5770-3) KETONES UA (test code = Negative NEGATIVE 10094-4) SPECIFIC GRAVITY UA (test 1.005-1.035 code = [...] 5802-4) REDUCING SUBSTANCES URINE (test code = 31122-7) [facility] [id number] 12:57:00Surgical Pathology Report Case: [id number] Authorizing Provider: Skyler Lin MD Collected: 09/16/2016 0948 Ordering Location: [facility] Received: 09/16/2016 1223 SERVICES Pathologist: Machelle Mittal MD Specimens: A) - Tumor, Fat Overlying Tumor B) - Renal, Right, Right Renal MassThis case was reviewed by me at the [...] tumor. This fatty tissue has the cautery artifactthat represents the true surgical margin. Therefore, I consider the surgical margin to be negative although within 1 mm of the resection margin. Addendum electronically signed by Clifford Londono MD on 10/03/2016 at 12:57 PMA. "FAT OVERLYING TUMOR", EXCISION: - ADIPOSE AND CONNECTIVE TISSUE, - NEGATIVE FOR MALIGNANCYB. KIDNEY, RIGHT, PARTIAL NEPHRECTOMY: - CLEAR CELL RENAL CELL CARCINOMA, CONVENTIONAL, OLEG GRADE 2 3.2 X 2.5 X 1.7CM - TUMOR EXTENDS ENTIRELY THROUGH THE RENAL CAPSULE AND FOR1MM INTO THE PERIRENAL ADIPOSE TISSUE, IN THE MEDULLARY REGION (SEE MICROSCOPIC SECTION) - TUMOR IS PRESENT AT THE BLUE INKED/RENAL PARENCHYMAL MEDULLARY REGION [...] NON-TUMOR Pathologic Findings in Nonneoplastic Kidney: None [id number] renal massA. Fat overlying tumor; B. Right [...] of a classic clear cell type. The Fu rman nuclear grade is 2. Some oncocytic [...] adipose tissue.CYTOLOGY 2016-09-19 14:54:00Medical Cytology Report Case: [id number] Authorizing Provider: Skyler Lin MD Collected: 09/16/201604 Ordering Location: [facility] Received: 09/16/2016 0957 SERVICES Pathologist: Alex Shah MD Specimen: Urine, Bladder Wash, Bladder washings BLADDER WASHING (CYTOSPINS): -NO MALIGNANT CELLS IDENTIFIED Signing Pathologist Direct Phone Line: [phone] signed by Alex Shah MD on 09/19/2016 at 2:54 [id number] renal massBLADDER WASHING4 cytospins prepared from 30 ml yellow fluidCollected: [id number]: [id number] [facility], [facility] of [facility]ology, [address] [place] [id number], PhvzbbVA [facility], Department of Pathology, [address] [place] [address], SDQPC METABOLIC PANEL 2016-09-18 05:24:00 Test Item Value [...] APPLICABLE FOR DIALYSIS PATIEN TS. HEMOGLOBIN AND [id number] 05:08:00 Test Item Value Reference Range Interpretation Comments HEMOGLOBIN (BEAKER) (test code = 11.5 GM/DL 12.0-15.0 L 410) HEMATOCRIT (BEAKER) (test code = 34.7 % 36.0-45.0 L 411) BASIC METABOLIC [id number] 06:11:00 Test Item Value Reference Range Interpretation [...] PATIEN TS. CBC W/PLT COUNT & AUTO [id number] 05:55:00 Test Item Value Reference Range Interpretation [...] 0.00-0.20 (test code = 417) 0.00BASIC METABOLIC [id number] 12:54:00 Test Item Value Reference Range Interpretation [...] PATIEN TS. CBC W/PLT COUNT & AUTO [id number] 12:43:00 Test Item Value Reference Range Interpretation [...] L 0.00-0.20 (test code = 417) 0.00CYTOLOGY [id number] 11:00:00 Test Item Value Reference Range Interpretation Comments CYTOLOGY RESULT POINTER See Separate Report (BEAKER) (test code = 2629) SODIUM NA-STAT [id number] 06:14:00 Test Item Value Reference Range Interpretation Comments SODIUM (BEAKER) (test code = 381) 127 meq/L 135-148 L [id number] 12:45:00 Test Item Value Reference Range Interpretation Comments SODIUM (BEAKER) (test code = 381) 131 meq/L 136-145 L POTASSIUM (BEAKER) (test code = 4.1 meq/L 3.5-5.1 379) CHLORIDE (BEAKER) (test code = 382) 98 meq/L 98-107 CO2 (BEAKER) (test code = 355) 28 meq/L 22-29 BUN AND [id number] 12:45:00 Test Item Value Reference Range Interpretation Comments BLOOD UREA NITROGEN 9 mg/dL 7-21 (BEAKER) (test code = 354) CREATININE (BEAKER) 0.69 mg/dL 0.57-1.25 (test code = 358) EGFR (BEAKER) (test 88 mL/min/1.73 ESTIMA GRIFFIN GFR IS code = 1092) sq m NOT ACCURATE CREATININE CLEARANCE IN PREDICTING GLOMERULAR FILTRATION RATE . ESTIMATED GFR I S NOT APPLICABLE FOR DIALYSIS PATIEN TS. [id number] 12:25:00 Test Item Value Reference Range Interpretation Comments HEMOGLOBIN (BEAKER) (test code = 15.5 GM/DL 12.0-15.0 H 410) PLATELET [id number] 12:25:00 Test Item Value Reference Range Interpretation Comments PLATELET COUNT (BEAKER) (test 323 K/CU MM 150-430 code = 756)
--- NOTE | 2022-08-15 19:16 | RAD REPORT ---
EXAM DESCRIPTION: RAD - Chest Single View - 08/15/2022 7:09 pm CLINICAL HISTORY: SOB Chest pain. COMPARISON: <Comparisons> FINDINGS: Portable technique limits examination quality. The lungs are emphysematous but grossly clear. The heart is normal in size. No displaced fractures. IMPRESSION: Prominent COPD.
[2022-08-15] MEDS ORDERED: NA CHLORIDE 0.9% 1,000 ML ONE ×2 (19:33→23:55)
[2022-08-15 19:41] LABS: Absolute Lymphocytes (CBC) 1.6 K/uL (0.7-4.9); Hematocrit 37.1 % (36.0-45.0); Lymphocytes % 17.8 % (15.3-44.8); MCV 105.2 fL (80-100); MPV 7.2 fL (7.6-11.3); RBC Red Blood Cell Count 3.52 M/uL (3.86-4.86)
[2022-08-15 21:56] LABS: Protime INR 1.2
[2022-08-15 22:15] LABS: ALT/SGPT 1571 U/L (13-56); AST/SGOT 1646 U/L (15-37); Albumin 2.9 g/dL (3.4-5.0); Alkaline Phosphatase 113 U/L (45-117); BUN Blood Urea Nitrogen 14 mg/dL (7-18); Bicarbonate 23 mEq/L (21-32); Bilirubin Direct 0.3 mg/dL (0-0.2); Bilirubin Indirect, Calculated 0.2 mg/dL (0.2-0.8); Bilirubin Total 0.5 mg/dL (0.2-1.0); Glomerular Filtration Rate 59 ml/min (=/>90); Glucose Level 89 mg/dL (74-106); Magnesium 1.6 mg/dL (1.6-2.4); NT PRO-BNP 491 pg/mL (<125); Potassium 4.4 mEq/L (3.5-5.1); Protein, Total 6.2 g/dL (6.4-8.2); Sodium Level 125 mEq/L (136-145)
[2022-08-15 22:16] LABS: Troponin High Sensitivity < 3.0 pg/mL (<58.9)
[2022-08-15 23:00] LABS: Specific Gravity 1.007 (1.005-1.030); Urine Bacteria <20 /HPF (<20); Urine Bilirubin NEGATIVE (Negative); Urine Blood Negative (Negative); Urine Clarity Turbid (Clear); Urine Color Yellow (Yellow); Urine Crystals Unidentified Few /HPF (None Seen); Urine Glucose NEGATIVE (Negative); Urine Mucus Slight /HPF (None Seen); Urine Protein TRACE (Negative); Urine RBC <5 /HPF (None Seen); Urine Urobilinogen 1+ (Normal); Urine pH 5.5 (5.0-7.0)
[2022-08-16] MEDS ORDERED: Levofloxacin 750mg IV 750 MG/150 ML BAG IV ONE (00:48)
[2022-08-16] MEDS ORDERED: METRONIDAZOLE 500mg IVPB 500 MG/100 ML BAG IV ONE (00:49)
--- NOTE | 2022-08-16 00:50 | ER ---
Nurse's Notes [facility] Name: Paula Ledezma Age: 61 yrs Sex: Female : 1960 Arrival Date: 08/15/2022 Time: 18:42 Bed 20 Private MD: Brian Steel Diagnosis: Other pneumonia, unspecified organism;Abnormal findings on diagnostic imaging of liver and biliary tract;Abnormal results of liver function studies;Severe sepsis without septic shock;Constipation;Hypo-osmolality and hyponatremia Presentation: 08/15 18:58 Chief complaint: Patient states: general weakness x 2 days, dizziness x 2 days db increasingly worse today, SOB. Coronavirus screen: Vaccine status: Patient reports being unvaccinated. Ebola Screen: Patient denies travel to an Ebola-affected area in the 21 days before illness onset. Risk Assessment: Do you want to hurt yourself or someone else? Patient reports no desire to harm self or others. Onset of symptoms was August 14, 2022. 18:58 Method Of Arrival: Wheelchair db 18:58 Acuity: JAROD 3 db 08/16 03:29 Initial Sepsis Screen: Does the patient meet any 2 criteria? No. Patient's initial aa9 sepsis screen is negative. Does the patient have a suspected source of infection? No. Patient's initial sepsis screen is negative. Triage Assessment: 08/15 19:00 The onset of the patients symptoms was August 14, 2022 at 08:15. General: Appears db uncomfortable, ill, Behavior is calm, cooperative, appropriate for age. Pain: Denies pain. EENT: No signs and/or symptoms were reported regarding the EENT system. Neuro: Level of Consciousness is awake, alert, obeys commands, Oriented to person, place, time, situation. Cardiovascular: Patient's skin is warm and dry. pale. Respiratory: Airway is patent Respiratory effort is even, unlabored, Respiratory pattern is regular, symmetrical. GI: No signs and/or symptoms were reported involving the gastrointestinal system. : No signs and/or symptoms were reported regarding the genitourinary system. Derm: No signs and/or symptoms reported regarding the dermatologic system. Musculoskeletal: No signs and/or symptoms reported regarding the musculoskeletal system. Historical: - Allergies: 19:00 All painmeds cause severe vomiting. Pt prefers not to take them; db 19:00 CEPHALOSPORINS; db 19:00 PENICILLINS; db 19:00 Sulfa (Sulfonamide Antibiotics); db - PMHx: 19:00 Anxiety; depressive disorder; COPD; Hypertensive disorder; Mycobacterium Cholo; Renal db cell CA with mets-Stg IV; - Immunization history:: Adult Immunizations not up to date. - Social history:: Smoking status: Patient reports the use of cigarette tobacco products, smokes one pack cigarettes per day. Screenin:00 [facility] ED Fall Risk Assessment (Adult) History of falling in the last 3 months, aa9 including since admission No falls in past 3 months (0 pts) Confusion or Disorientation No (0 pts) Intoxicated or Sedated No (0 pts) Impaired Gait No (0 pts) Mobility Assist Device Used No (0 pt) Altered Elimination No (0 pt) Score/Fall Risk Level 0 - 2 = Low Risk Oriented to surroundings, Maintained a safe environment, Educated pt \T\ family on fall prevention, incl call for assistance when getting out of bed. Abuse screen: Denies threats or abuse. Denies injuries from another. Nutritional screening: No deficits noted. Tuberculosis screening: No symptoms or risk factors identified. Assessment: 19:05 Reassessment: Code Sepsis. db 19:05 Reassessment: See triage for initial assessment. db 20:25 Reassessment: Patient appears in no apparent distress at this time. paged phlebotomy aa9 for recollection of blood cultures. 21:18 Reassessment: Patient appears in no apparent distress at this time. Patient and/or aa9 family updated on plan of care and expected duration. Pain level reassessed. Patient is alert, oriented x 3, equal unlabored respirations, skin warm/dry/pink. 22:01 VAN Scoring: Arm Drift: Patients demonstrates NO arm weakness. Patient is VAN Negative. aa9 Reassessment: Patient appears in no apparent distress at this time. Patient and/or family updated on plan of care and expected duration. Pain level reassessed. Patient is alert, oriented x 3, equal unlabored respirations, skin warm/dry/pink. Patient states feeling better. 23:57 Reassessment: Patient appears in no apparent distress at this time. Patient and/or aa9 family updated on plan of care and expected duration. Pain level reassessed. Patient is alert, oriented x 3, equal unlabored respirations, skin warm/dry/pink. Patient denies pain at this time. 08/16 00:19 Reassessment: Patient appears in no apparent distress at this time. pt ambulated aa9 independently to restroom. 00:31 Reassessment: Patient appears in no apparent distress at this time. Page PA at bedside. aa9 01:48 Reassessment: Patient appears in no apparent distress at this time. Patient and/or aa9 family updated on plan of care and expected duration. Pain level reassessed. Patient is alert, oriented x 3, equal unlabored respirations, skin warm/dry/pink. Patient denies pain at this time. 02:09 Reassessment: Patient appears in no apparent distress at this time. report provided to [facility] receiving facility. 03:00 Reassessment: Patient appears in no apparent distress at this time. Patient and/or aa9 family updated on plan of care and expected duration. Pain level reassessed. Patient is alert, oriented x 3, equal unlabored respirations, skin warm/dry/pink. 03:08 Reassessment: [facility] at bedside. aa9 03:29 Reassessment: Patient appears in no apparent distress at this time. Patient and/or aa9 family updated on plan of care and expected duration. Pain level reassessed. Patient is alert, oriented x 3, equal unlabored respirations, skin warm/dry/pink. Vital Signs: 08/15 18:58 BP 86 / 63; Pulse 104; Resp 20; Pulse Ox 99% on R/A; db 19:40 BP 92 / 72; Pulse 54; Resp 19 S; Pulse Ox 98% on R/A; aa9 20:30 BP 110 / 75; Pulse 52; Resp 18; Pulse Ox 96% on R/A; aa9 20:40 BP 118 / 77; Pulse 50; Resp 17; Pulse Ox 96% on R/A; aa9 21:00 BP 118 / 74; Pulse 54; Resp 16; Pulse Ox 95% on R/A; aa9 21:40 Pulse 64; Resp 19; Pulse Ox 94% on R/A; aa9 22:12 Temp 98.5(O); aa9 23:40 BP 125 / 83; Pulse 80; Resp 18; Pulse Ox 95% on R/A; aa9 08/16 00:48 BP 131 / 90; Pulse 78; Resp 18; Temp 97.7; Pulse Ox 95% on R/A; pf1 01:01 Weight 54.43 kg (R); Height 5 ft. 6 in. (R); aa9 02:14 BP 146 / 84; Pulse 78; Resp 18 S; Pulse Ox 94% on R/A; aa9 03:00 BP 142 / 84; Pulse 80; Resp 17; Pulse Ox 95% on R/A; aa9 01:01 Body Mass Index 19.37 (54.43 kg, 167.64 cm) aa9 NIH Stroke Scale Scores: 08/15 22:01 NIHSS Score: 0 aa9 ED Course: 18:45 Patient arrived in ED. mr 18:45 Brian Steel is Private Physician. mr 18:50 Carlos Mauricio PA is PHCP. cp 18:51 Chuck Rader DO is Attending Physician. cp 18:58 Alice Gonsalves, MELVIN is Primary Nurse. db 19:00 Triage completed. db 19:02 Arm band placed on right wrist. Patient placed in an exam room, on a stretcher. db 19:11 XRAY Chest (1 view) In Process Unspecified. EDMS 19:19 Inserted saline lock: 20 gauge in left forearm, using aseptic technique. Blood aa9 collected. 19:25 Influenza Screen (a \T\ B) Sent. aa9 19:25 COVID-19 SARS RT PCR Sent. aa9 19:25 Blood Culture Adult (2) Sent. aa9 19:25 Lactate w/ 2H reflex if indic. Sent. aa9 19:25 Troponin HS Sent. aa9 19:25 PT-INR Sent. aa9 19:25 NT PRO-BNP Sent. aa9 19:25 Magnesium Sent. aa9 19:25 LFT's Sent. aa9 19:25 D-Dimer Sent. aa9 19:25 CBC with Diff Sent. aa9 19:25 Basic Metabolic Panel Sent. aa9 20:24 Missed attempt(s): 22 gauge in right forearm. Bleeding controlled, band aid applied, aa9 catheter tip intact. 22:01 LFT's Sent. aa9 22:01 Magnesium Sent. aa9 22:01 NT PRO-BNP Sent. aa9 22:01 Troponin HS Sent. aa9 22:01 Basic Metabolic Panel Sent. aa9 22:01 Blood Culture Adult (2) Sent. aa9 22:49 AMMONIA Sent. aa9 22:49 Lipase Sent. aa9 23:20 CT Chest For PE Angio In Process Unspecified. EDMS 23:20 CT Abd/Pelvis - IV Contrast Only In Process Unspecified. EDMS 23:57 Client placed on continuous cardiac and pulse oximetry monitoring. NIBP monitoring aa9 applied. Door closed. Lights dimmed. Warm blanket given. Diet: Patient is NPO. 08/16 00:00 Patient has correct armband on for positive identification. Bed in low position. Call aa9 light in reach. Side rails up X2. 00:[address] [facility], spoke with Anna Marie Boyer. ah1 01:[address] Radha Selby. ah1 03:15 EMS arrived. ah1 03:29 EMS left with patient. ah1 03:29 No provider procedures requiring assistance completed. Patient transferred, IV remains aa9 in place. Administered Medications: 08/15 19:36 Drug: NS 0.9% IV 1000 ml Route: IV; Rate: 1 bolus; Site: left forearm; aa9 22:49 Follow up: Response: No adverse reaction; IV Status: Completed infusion; IV Intake: aa9 1000ml 23:54 Drug: NS 0.9% IV 1000 ml Route: IV; Rate: 100 ml/hr; Site: left forearm; aa9 08/16 00:47 Drug: metroNIDAZOLE IVPB 500 mg Volume: 100 ml; Route: IVPB; Infused Over: 30 mins; aa9 Site: left forearm; 01:35 Follow up: Response: No adverse reaction; IV Status: Completed infusion; IV Intake: [id number] 01:22 Drug: Nicoderm CQ Transdermal Patch 21 mg/24 hr 21 mg {Note: Left upper back.} Route: aa9 Transdermal; Site: affected area; 01:22 Drug: LORazepam PO 0.5 mg Route: PO; aa9 03:07 Follow up: Response: No adverse reaction aa9 01:36 Drug: levofloxacin IVPB 750 mg Volume: 150 ml; Route: IVPB; Infused Over: 90 mins; aa9 Site: left forearm; 03:06 Follow up: Response: No adverse reaction; IV Status: Completed infusion; IV Intake: aa9 150ml Medication: 03:29 VIS not applicable for this client. aa9 Intake: 08/15 22:49 IV: 1000ml; Total: 1000ml. aa9 08/16 01:35 IV: 50ml; Total: 1050ml. aa9 03:06 IV: 150ml; Total: 1200ml. aa9 Outcome: 00:48 ER care complete, transfer ordered by MD. guido 03:28 Transferred by ground EMS to [facility], Transfer form completed. aa9 03:28 Condition: stable 03:28 Instructed on the need for admit. 03:29 Patient left the ED. aa9 NIH Stroke Scale - NIH Stroke Score Date: 08/15/2022 Time: 22:01 Total Score = 0 10. Dysarthria (speech clarity - read or repeat words) - 0(Normal) 11. Extinction and Inattention (visual/tactile/auditory/spatial/personal) - 0(No abnormality) 1a. Level of Consciousness (LOC) - 0(Alert) 1b. Level of Consciousness (LOC) (Month \T\ Age) - 0(Both) 1c. LOC Commands (Open \T\ Closes Eyes/Vice [employer]) - 0(Both) 2. Best Gaze (Lateral Gaze Paresis) - 0(Normal) 3. Visual Field Loss - 0(No visual loss) 4. Facial Palsy - 0(Normal) 5a. Left Arm: Motor (10-second hold) - 0(No drift) 5b. Right Arm: Motor (10-second hold) - 0(No drift) 6a. Left Leg: Motor (5-second hold - always test supine) - 0(No drift) 6b. Right Leg: Motor (5-second hold - always test supine) - 0(No drift) 7. Limb Ataxia (finger/nose \T\ heel/ko - test with eyes open) - 0(Absent) 8. Sensory Loss (pinprick arms/legs/face) - 0(Normal) 9. Best Language: Aphasia (description/naming/reading) - 0(No aphasia) Initials: aa9 Signatures: Dispatcher [employer] [facility] Machelle Corral Carlos De Jesus PA PA cp Avalos, Aylin, RN RN aa9 Alice Gonsalves, MELVIN CHARLES db Destiney Sousa RN RN pf1 Danny Witt [facility]
--- NOTE | 2022-08-16 00:50 | EDPHYS ---
Physician Documentation [facility] Name: Paula Ledezma Age: 61 yrs Sex: Female : 1960 Arrival Date: 08/15/2022 Time: 18:42 Bed 20 Private MD: Brian Steel ED Physician Chuck Rader HPI: 08/15 19:05 This 61 yrs old Female presents to ER via Wheelchair with complaints of Weakness, cp Dizziness, Low O2. 19:05 The patient presents to the emergency department with weakness of the entire body, cp generalized weakness. Onset: The symptoms/episode began/occurred today. Associated signs and symptoms: Pertinent positives: dizziness, near-syncope, shortness of breath times 2 days, Pertinent negatives: altered mental status, chills, fever, headache, neck stiffness, paresthesias. Patient's baseline: Neuro: alert and fully oriented, Motor: no deficits, Ambulation: walks without assistance, Speech: normal. 19:05 Current symptoms: improved. cp 19:05 [id number] who is a nurse at this hospital reports patient's oxygen sats were in cp the 80's earlier today. Patient with history of smoking, is not on home oxygen therapy. Patient reports history of metastatic kidney cancer and currently takes oral chemo. Historical: - Allergies: 19:00 All painmeds cause severe vomiting. Pt prefers not to take them; db 19:00 CEPHALOSPORINS; db 19:00 PENICILLINS; db 19:00 Sulfa (Sulfonamide Antibiotics); db - PMHx: 19:00 Anxiety; depressive disorder; COPD; Hypertensive disorder; Mycobacterium Cholo; Renal db cell CA with mets-Stg IV; - Immunization history:: Adult Immunizations not up to date. - Social history:: Smoking status: Patient reports the use of cigarette tobacco products, smokes one pack cigarettes per day. ROS: 19:08 Eyes: Negative for injury, pain, redness, and discharge. cp 19:08 Constitutional: Negative for body aches, chills, fever, poor PO intake. 19:08 Cardiovascular: Negative for chest pain, edema. 19:08 Respiratory: Positive for shortness of breath, Negative for cough, wheezing. 19:08 Abdomen/GI: Negative for abdominal pain, vomiting, diarrhea, constipation. 19:08 Neck: Negative for pain with movement, pain at rest, stiffness. cp 19:08 : Negative for urinary symptoms. 19:08 Skin: Negative for cellulitis, rash. 19:08 Neuro: Positive for weakness, Negative for altered mental status, dizziness, headache. 19:08 All other systems are negative. Exam: 19:12 Constitutional: The patient appears in no acute distress, alert, awake, cp non-diaphoretic, non-toxic, well developed, well nourished. 19:12 Head/Face: Normocephalic, atraumatic. cp 19:12 Eyes: Periorbital structures: appear normal, Pupils: equal, round, and reactive to light and accomodation, Extraocular movements: intact throughout, Conjunctiva: normal, no exudate, no injection, Sclera: no appreciated abnormality, Lids and lashes: appear normal, bilaterally. 19:12 ENT: External ear(s): are unremarkable, Nose: is normal, Mouth: Lips: dry, Oral mucosa: dry, Posterior pharynx: is normal, airway is patent, no erythema, no exudate. 19:12 Neck: ROM/movement: is normal, is supple, without pain, no range of motions limitations, no meningismus, no nuchal rigidity. 19:12 Chest/axilla: Inspection: normal. 19:12 Cardiovascular: Rate: tachycardic, Rhythm: irregular, Edema: is not appreciated, JVD: is not appreciated. 19:12 Respiratory: the patient does not display signs of respiratory distress, Respirations: shallow respirations, that is mild, Breath sounds: decreased breath sounds, that are mild, throughout, stridor, is not appreciated, wheezing: is not appreciated. 19:12 Abdomen/GI: Inspection: abdomen appears normal, Bowel sounds: active, all quadrants, Palpation: soft, in all quadrants, mild abdominal tenderness, in the epigastric area, rebound tenderness, is not appreciated, involuntary guarding, is not appreciated. 19:12 Back: pain, is absent, ROM is normal. 19:12 Skin: cellulitis, is not appreciated, no rash present. 19:12 Neuro: Orientation: to person, place \T\ time. Mentation: is normal, Cerebellar function: Romberg testing is negative, Motor: moves all fours, general weakness w/o focal deficits, Sensation: no obvious gross deficits. 19:57 ECG was reviewed by the Attending Physician. cp Vital Signs: 18:58 BP 86 / 63; Pulse 104; Resp 20; Pulse Ox 99% on R/A; db 19:40 BP 92 / 72; Pulse 54; Resp 19 S; Pulse Ox 98% on R/A; aa9 20:30 BP 110 / 75; Pulse 52; Resp 18; Pulse Ox 96% on R/A; aa9 20:40 BP 118 / 77; Pulse 50; Resp 17; Pulse Ox 96% on R/A; aa9 21:00 BP 118 / 74; Pulse 54; Resp 16; Pulse Ox 95% on R/A; aa9 21:40 Pulse 64; Resp 19; Pulse Ox 94% on R/A; aa9 22:12 Temp 98.5(O); aa9 23:40 BP 125 / 83; Pulse 80; Resp 18; Pulse Ox 95% on R/A; aa9 05/16 00:48 BP 131 / 90; Pulse 78; Resp 18; Temp 97.7; Pulse Ox 95% on R/A; pf1 01:01 Weight 54.43 kg (R); Height 5 ft. 6 in. (R); aa9 02:14 BP 146 / 84; Pulse 78; Resp 18 S; Pulse Ox 94% on R/A; aa9 03:00 BP 142 / 84; Pulse 80; Resp 17; Pulse Ox 95% on R/A; aa9 01:01 Body Mass Index 19.37 (54.43 kg, 167.64 cm) aa9 NIH Stroke Scale Scores: 08/15 22:01 NIHSS Score: 0 aa9 MDM: 18:56 Patient medically screened. 22:35 Data reviewed: vital signs, nurses notes, lab test result(s), EKG, radiologic studies, CT scan, plain films. 22:35 I considered the following discharge prescriptions or medication management in the emergency department Medications were administered in the Emergency Department. See MAR. Test considered but Not performed: Ultrasound liver. Care significantly affected by the following chronic conditions: Hypertension, Chronic Obstructive Pulmonary Disease, Cancer. Counseling: I had a detailed discussion with the patient and/or guardian regarding: the historical points, exam findings, and any diagnostic results supporting the discharge/admit diagnosis, lab results, radiology results, the need to transfer to another facility, for higher level of care, [facility] does not immediately have the required specialist. Response to treatment: the patient's symptoms have markedly improved after treatment. 08/16 01:45 ED course: consult with Dr Selby, hospitalist \T\[facility], will accept transfer cp after discussion of today's results. 08/15 18:59 Order name: Basic Metabolic Panel; Complete Time: 22:25 cp 08/15 22:25 Interpretation: Normal except: NA 125; CL 95; CRE 1.06; GFR 59; CA 8.2. cp 08/15 18:59 Order name: CBC with Diff; Complete Time: 20:12 cp 08/15 20:13 Interpretation: Normal except: RBC 3.52; MCV 105.2; MCH 35.1; MPV 7.2; MARCIN% 79.8; MN% cp 2.2. 08/15 18:59 Order name: D-Dimer; Complete Time: 22:25 cp 08/15 22:25 Interpretation: Normal except: D-DIMER 1948. 08/15 18:59 Order name: LFT's; Complete Time: 22:25 cp 08/15 22:25 Interpretation: Normal except: AST 1646; ALT 1571; BILID 0.3; TP 6.2; ALB 2.9; A/G 0.9. cp 08/15 18:59 Order name: Magnesium; Complete Time: 22:25 cp 08/15 18:59 Order name: NT PRO-BNP; Complete Time: 22:25 cp 08/15 22:26 Interpretation: Abnormal: NT PRO-BNP 491. cp 08/15 18:59 Order name: PT-INR; Complete Time: 22:25 cp 08/15 18:59 Order name: Troponin HS; Complete Time: 22:25 cp 08/15 18:59 Order name: Lactate w/ 2H reflex if indic.; Complete Time: 20:12 cp 08/15 21:08 Interpretation: Reviewed. cp 08/15 18:59 Order name: Blood Culture Adult (2) cp 08/15 18:59 Order name: Urinalysis W/Microscopic; Complete Time: 23:38 cp 08/15 23:38 Interpretation: Normal except: [facility] Turbid; UPROT TRACE; UUROB 1+. cp 08/15 18:59 Order name: COVID-19 SARS RT PCR; Complete Time: 21:08 cp 08/15 21:08 Interpretation: Reviewed. cp 08/15 18:59 Order name: Influenza Screen (a \T\ B); Complete Time: 21:08 cp 05/ 21:08 Interpretation: Reviewed. cp 08/15 22:26 Order name: Lipase; Complete Time: 23:38 cp 08/15 22:26 Order name: AMMONIA; Complete Time: 23:38 cp 08/15 22:37 Order name: Acetaminophen; Complete Time: 23:38 cp 08/15 23:38 Interpretation: Reviewed. cp 08/15 18:59 Order name: XRAY Chest (1 view); Complete Time: 19:46 cp 08/15 19:46 Interpretation: Report review. cp 08/15 22:28 Order name: CT Chest For PE Angio cp 08/15 22:28 Order name: CT Abd/Pelvis - IV Contrast Only cp 08/15 18:59 Order name: EKG; Complete Time: 19:00 cp 08/15 18:59 Order name: Cardiac monitoring; Complete Time: 19:25 cp 08/15 18:59 Order name: EKG - Nurse/Tech; Complete Time: 21:55 cp 08/15 18:59 Order name: IV Saline Lock; Complete Time: 19:25 cp 08/15 18:59 Order name: Labs collected and sent; Complete Time: 19:25 cp 08/15 18:59 Order name: O2 Per Protocol; Complete Time: 19:25 cp 08/15 18:59 Order name: O2 Sat Monitoring; Complete Time: 19:25 cp 08/15 19:41 Order name: Labs - recollect needed; Complete Time: 21:55 pf1 08/15 22:36 Order name: NPO; Complete Time: 22:49 cp EC/15 19:57 Rate is 56 beats/min. Rhythm is irregular. QRS interval is normal. QT interval is cp normal. T waves are Inverted in lead aVR. Interpreted by me. Reviewed by me. Administered Medications: 19:36 Drug: NS 0.9% IV 1000 ml Route: IV; Rate: 1 bolus; Site: left forearm; aa9 22:49 Follow up: Response: No adverse reaction; IV Status: Completed infusion; IV Intake: aa9 1000ml 23:54 Drug: NS 0.9% IV 1000 ml Route: IV; Rate: 100 ml/hr; Site: left forearm; aa9 08/16 00:47 Drug: metroNIDAZOLE IVPB 500 mg Volume: 100 ml; Route: IVPB; Infused Over: 30 mins; aa9 Site: left forearm; 01:35 Follow up: Response: No adverse reaction; IV Status: Completed infusion; IV Intake: [id number] 01:22 Drug: Nicoderm CQ Transdermal Patch 21 mg/24 hr 21 mg {Note: Left upper back.} Route: aa9 Transdermal; Site: affected area; 01:22 Drug: LORazepam PO 0.5 mg Route: PO; aa9 03:07 Follow up: Response: No adverse reaction aa9 01:36 Drug: levofloxacin IVPB 750 mg Volume: 150 ml; Route: IVPB; Infused Over: 90 mins; aa9 Site: left forearm; 03:06 Follow up: Response: No adverse reaction; IV Status: Completed infusion; IV Intake: aa9 150ml Disposition: 08/15 20:07 Co-signature as Attending Physician, Chuck LAWSON was immediately available on-site ms3 in the Emergency Department for consultation in the care of the patient. Disposition Summary: 08/16/22 00:48 Transfer Ordered Transfer Location: [facility] cp Reason: Higher level of care cp Condition: Stable cp Problem: new cp Symptoms: have improved cp Accepting Physician: DR Selby(08/16/22 03:29) aa9 Diagnosis - Other pneumonia, unspecified organism cp - Abnormal findings on diagnostic imaging of liver and biliary tract cp - Abnormal results of liver function studies cp - Severe sepsis without septic shock cp - Constipation cp - Hypo-osmolality and hyponatremia cp Forms: - Medication Reconciliation Form cp - SBAR form cp NIH Stroke Scale - NIH Stroke Score Date: 08/15/2022 Time: 22:01 Total Score = 0 10. Dysarthria (speech clarity - read or repeat words) - 0(Normal) 11. Extinction and Inattention (visual/tactile/auditory/spatial/personal) - 0(No abnormality) 1a. Level of Consciousness (LOC) - 0(Alert) 1b. Level of Consciousness (LOC) (Month \T\ Age) - 0(Both) 1c. LOC Commands (Open \T\ Closes Eyes/Strike Out Machine Operator) - 0(Both) 2. Best Gaze (Lateral Gaze Paresis) - 0(Normal) 3. Visual Field Loss - 0(No visual loss) 4. Facial Palsy - 0(Normal) 5a. Left Arm: Motor (10-second hold) - 0(No drift) 5b. Right Arm: Motor (10-second hold) - 0(No drift) 6a. Left Leg: Motor (5-second hold - always test supine) - 0(No drift) 6b. Right Leg: Motor (5-second hold - always test supine) - 0(No drift) 7. Limb Ataxia (finger/nose \T\ heel/ko - test with eyes open) - 0(Absent) 8. Sensory Loss (pinprick arms/legs/face) - 0(Normal) 9. Best Language: Aphasia (description/naming/reading) - 0(No aphasia) Initials: aa9 Signatures: Dispatcher [employer] EDMS Carlos Mauricio PA PA cp Sims, Marcus, DO ms3 Renetta Lizama, MELVIN RN aa9 Alice Gonsalves RN RN db Destiney Sousa RN RN pf1 Corrections: (The following items were deleted from the chart) 08/16 00:53 00:48 Doctor cp cp 01:47 00:53 Doctor cp cp 03:29 01:47 DR Selby cp aa9
[2022-08-16] MEDS ORDERED: NICOTINE 21 MG/PAT TD ONE (01:26)
[2022-08-16] MEDS ORDERED: LORAZEPAM 0.5 MG TABLET ONE (01:26)
[2022-08-16 04:10] VITALS: TEMP 97.7
[2022-08-16 04:14] VITALS: BP 142/84; O2SAT 95
--- NOTE | 2022-08-16 07:47 | EKG ---
Test Date: 2022-08-15 Test Time: 19:52:18 Shirt Cleaner: SOLOMON MEASUREMENT RESULTS: Intervals: Rate: 56 UT: QRSD: 74 QT: 440 QTc: 424 [place]: P: UT: QRS: 73 T: 70 INTERPRETIVE STATEMENTS: Atrial fibrillation Abnormal ECG Compared to ECG 01/14/2022 18:43:34 Sinus rhythm no longer present First degree AV block no longer present T-wave abnormality no longer present Electronically Signed On 08-16-22 07:45:33 CDT by Lobo Bettencourt
--- NOTE | 2022-08-16 16:13 | RAD REPORT ---
EXAM DESCRIPTION: CT - Abdomen Pelvis W Contrast - 08/16/2022 6:[address] Angiography Chest and CT Abdomen and Pelvis With Intravenous Contrast CLINICAL HISTORY: The patient is 61 years old and is Female; SOB TECHNIQUE: Axial computed tomographic angiography images of the chest and axial computed tomography images of the abdomen and pelvis with intravenous contrast. This CT exam was performed using one or more of the following dose reduction techniques: automated exposure control, adjustment of the mA and/or kV according to patient size, and/or use of iterative reconstruction technique. MIP reconstructed images were created and reviewed. Oblique reformatted images were created and reviewed. DLP: 562 mGy*cm COMPARISON: Chest radiograph of the same day. FINDINGS: CHEST: AORTA: No acute findings. No aortic aneurysm. No dissection. PULMONARY ARTERIES: Unremarkable as visualized. No pulmonary embolism is identified. GREAT VESSELS OF AORTIC ARCH: No acute findings. No dissection. No arterial occlusion or signif icant stenosis. LUNGS: Interstitial opacity in the right lower lobe with interlobular septal thickening. Similar-ap pearing finding in the right middle lobe. Diffuse hyperinflation and centrilobular emphysema. Right upper lobe scarring. 9 mm right lower lobe nodule. PLEURAL SPACE: Unremarkable. No significant effusion. No pneumothorax. HEART: Unremarkable. No cardiomegaly. No significant pericardial effusion. MEDIASTINUM: Right hilar lymphadenopathy. ABDOMEN: LIVER: Unremarkable. No mass. GALLBLADDER AND BILE DUCTS: Prior cholecystectomy. Intrahepatic biliary ductal dilatation. Mild per iportal edema. PANCREAS: Unremarkable. No ductal dilation. No mass. SPLEEN: Unremarkable. No splenomegaly. ADRENALS: Right adrenal mass measuring 1.4 cm with attenuation values of approximately 23 Hounsfiel d units. KIDNEYS AND URETERS: Area of right renal scarring. No hydronephrosis. No solid mass. STOMACH AND BOWEL: Moderate to severe stool burden. No obstruction. No mucosal thickening. PELVIS: APPENDIX: No findings to suggest acute appendicitis. BLADDER: Unremarkable. No mass. REPRODUCTIVE: Prior hysterectomy. CHEST, ABDOMEN and PELVIS: INTRAPERITONEAL SPACE: Unremarkable. No significant fluid collection. No free air. BONES/JOINTS: Expansile heterogenous lesion of the posterior aspect of the right sixth rib measurin g 5.1 x 1.8 cm with involvement of the costovertebral joint. Osteopenia and multilevel degenerative changes. Diffuse osteopenia. Multilevel degenerative changes. No acute fracture. No dislocation. SOFT TISSUES: Unremarkable. LYMPH NODES: See above. IMPRESSION: 1. No pulmonary embolism. 2. Right adrenal mass measuring 1.4 cm with attenuation values of approximately 23 Hounsfield units . ACR White Paper guidelines (Mar et al. JACR 2017; 14(8):6565-2150) suggest the following. If there is no history of malignancy consider a follow-up low dose, non-contrast adrenal CT or milvia mical-shift adrenal MRI in 12 months. If there is a history of malignancy recommend a low dose, non -emergent, non-contrast adrenal CT or chemical-shift adrenal MRI follow-up study. 3. Findings suggestive of right lung base pneumonia or aspiration. 4. Expansile heterogenous osseous lesion of the posterior aspect of the right sixth rib measuring 5 .1 x 1.8 cm with involvement of the costovertebral joint. 5. Right hilar lymphadenopathy. 6. Prior cholecystectomy. Intrahepatic biliary ductal dilatation. Mild periportal edema. Abdominal ultrasound is recommended. 7. Moderate to severe stool burden. Correlate for constipation. 8. Chronic lung changes. 9. 9 mm right lower lobe nodule. Fleischner Society Guidelines (MacMahon, et al. Radiology 2017; 284(1):228-43) suggest the following. For low-risk patients recommend follow-up chest CT at 3-6 mon ths. If unchanged consider an additional follow-up CT at 18-24 months. For high-risk patients ini tial follow-up chest CT at 3-6 months and if unchanged, 18-24 months. Electronically signed by: Junior Wilson DO 08/16/2022 12:00 AM [employer] Due to temporary technical issues with the PACS/Fluency reporting system, reports are being signed by the in house radiologist without review as a courtesy to ensure prompt reporting. The interpreting r adiologist is fully responsible for the content of the report.
== END 2022-08-16 03:29 | disposition short-term general hospital (02) ==
LOC: ER 18:42
DX: J18.8 Other pneumonia, unspecified organism (principal); A41.9 Sepsis, unspecified organism; R65.20 Severe sepsis without septic shock; E87.1 Hypo-osmolality and hyponatremia; K59.00 Constipation, unspecified; R94.5 Abnormal results of liver function studies; R93.2 Abnormal findings on diagnostic imaging of liver and biliary tract; C79.00 Secondary malignant neoplasm of unspecified kidney and renal pelvis; F17.210 Nicotine dependence, cigarettes, uncomplicated; I10 Essential (primary) hypertension; Z20.822 Contact with and (suspected) exposure to COVID-19; Z88.0 Allergy status to penicillin; Z88.2 Allergy status to sulfonamides; Z88.3 Allergy status to other anti-infective agents; Z88.6 Allergy status to analgesic agent
CPT/HCPCS: 96365; 96367; 96361; 93005; 87040 ×2; 85025; 81001; 80048; 36415; 82140; 83735; 85610; 85379; 80076; 83605; 84484; 83690; 83880; 87804 ×2; 71275; 74177; 71045; 99285; U0003; Q9967; J7030 ×2; G0480

== ENCOUNTER 2024-05-09 11:00 | Inpatient (IN) | payer BC, OTHER ==
[2024-05-09] MEDS ORDERED: ALBUTEROL 2.5 MG/3 ML NEB SOL ONE (13:56)
[2024-05-09] MEDS ORDERED: IPRATROPIUM BROM 0.5MG/2.5ML ONE (13:56)
[2024-05-09] MEDS ORDERED: METHYLPREDNISOLONE 125 MG INJ ONE (13:57)
--- NOTE | 2024-05-09 14:27 | RAD REPORT ---
Procedure: Chest Single View HISTORY: Shortness of breath COMPARISON: 2022 FINDINGS: Mild bilateral pulmonary opacities. . Lungs are hyperaerated No significant pleural effusion noted. The heart is normal size. IMPRESSION: COPD Mild bilateral pulmonary opacities. This can be further evaluated with CT
[2024-05-09 14:30] LABS: Absolute Lymphocytes (CBC) 0.7 K/uL (0.7-4.9); Absolute Monocytes 0.5 K/uL (0.1-1.3); Basophils % 0.4 % (0-1.3); Eosinophils % 0.2 % (0-4.4); Hematocrit 37.3 % (36.0-45.0); Lymphocytes % 11.8 % (15.3-44.8); MCH 36.3 pg (27.0-35.0); MCHC 34.9 g/dL (32.0-36.0); MPV 7.2 fL (7.6-11.3); Monocytes % 7.9 % (3.3-12.3); Neutrophils % 79.7 % (41.7-73.7); Nucleated Red Blood Cells % 0.1 % (0-0); Platelets 396 thou/uL (152-406); RBC Red Blood Cell Count 3.59 M/uL (3.86-4.86); Red Cell Distribution Width 15.2 % (12.1-15.2)
[2024-05-09 14:43] LABS: PT Prothrombin Time 11.9 SECONDS (9.4-12.5); Protime INR 1.13
[2024-05-09 14:49] LABS: ALT/SGPT 25 U/L (13-56); AST/SGOT 19 U/L (15-37); Albumin 2.7 g/dL (3.4-5.0); Albumin/Globulin Ratio 0.7 (1.1-1.8); Alkaline Phosphatase 79 U/L (45-117); Anion Gap 10.9 mEq/L (5.0-15.0); BUN Blood Urea Nitrogen 9 mg/dL (7-18); Bicarbonate 24 mEq/L (21-32); Bilirubin Direct 0.2 mg/dL (0-0.2); Bilirubin Indirect, Calculated 0.5 mg/dL (0.2-0.8); Bilirubin Total 0.7 mg/dL (0.2-1.0); Globulin 3.8 g/dL (2.3-3.5); Glomerular Filtration Rate 105 ml/min (=/>90); Glucose Level 126 mg/dL (74-106); NT PRO-BNP 343 pg/mL (<125); Potassium 3.9 mEq/L (3.5-5.1); Protein, Total 6.5 g/dL (6.4-8.2); Sodium Level 125 mEq/L (136-145)
[2024-05-09 14:50] LABS: Troponin High Sensitivity < 3.0 pg/mL (<58.9)
--- NOTE | 2024-05-09 16:23 | RAD REPORT ---
EXAM: CT Chest For Pe Angio TECHNIQUE: CT angiogram of the chest was performed following intravenous contrast administration, inc luding sagittal and coronal as well as maximum intensity projection reformats. One or more of the following dose reduction techniques were used: Automated exposure control, adjustment of the mA and k V according to patient size, and iterative reconstruction. Unless otherwise specified, incidental findings do not require dedicated imaging follow-up. INDICATION: [facility] DYSP[facility] Bed Name: [id number] COMPARISON: 08/15/2022 CT chest. Same day chest radiograph. FINDINGS: LINES/TUBES: None. PULMONARY ARTERIES: Main pulmonary arteries are normal in caliber. No filling defects within the pul monary arteries to suggest pulmonary embolus. LUNGS AND AIRWAYS: Advanced centrilobular emphysematous changes. Central left upper lobe 11 mm oblong nodule on axial image 95. Subpleural upper segment left lower lobe 12 mm nodule with marginal mild irregularity on axial image 90. Subpleural 5 mm right upper lobe posterior nodule on axial image 97 e xtending to the major fissure. These are all progressive since the prior CT. Bilobed right apical elongated opacity its largest component measuring 1.5 cm, stable. Subpleural anterior right upper lob e opacity seen on the prior exam has since improved with the 3 mm nodular residual seen on axial image 73. Bronchial wall thickening, scattered groundglass and tree-in-bud opacities seen at the basa l lungs bilaterally. PLEURA: No effusion or pneumothorax. HEART AND MEDIASTINUM: The visualized thyroid gland is normal. No mediastinal, hilar, or axillary lym phadenopathy. Heart is unremarkable. No pericardial effusion. SOFT TISSUES AND BONES: Expansile mixed lytic and sclerotic osseous lesion along the posterior right sixth rib is progressive appearance, now with lobulated extraosseous soft tissue components, measuring up to 3.6 x 2.2 cm in greatest axial dimensions. No significant soft tissue finding. UPPER ABDOMEN: Stable right adrenal 2 cm nodule. IMPRESSION: No evidence of acute central pulmonary emboli. Multiple left lung nodules including a left upper lobe 11 mm central nodule and a subpleural 12 mm up per segment lower lobe nodule. 5 mm subpleural right upper lobe nodule. All of these are new since the prior exams. These could relate to an infectious or inflammatory process although underlying candie gnancy or metastatic disease cannot be excluded. Other scattered basal predominant groundglass and tree-in-bud opacities, favoring an infectious or in flammatory process. Progressive right mixed lytic and sclerotic exterior sixth rib lesion now with an extraosseous soft t issue component. Malignancy should also be considered.
--- NOTE | 2024-05-09 16:37 | EDPHYS ---
Physician Documentation [facility] Name: Paula Ledezma Age: 63 yrs Sex: Female : 1960 Arrival Date: 05/09/2024 Time: 11:00 Bed 16 Private MD: ED Physician Chuck Rader HPI: 05/09 11:39 This 63 yrs old Female presents to ER via Wheelchair with complaints of Shortness Of ms3 Breath. 11:39 63-year-old female with past medical history of anxiety, COPD, depression, ms3 hypertension, Mycobacterium AVM, renal cell carcinoma presents to the emergency department for shortness of breath that is been ongoing for 2 to 3 days. Patient states she has had a hoarse voice since April 22. Patient endorses diarrhea, denies nausea or vomiting. She denies any alleviating or inciting factors.. Historical: - Allergies: 11:13 All painmeds cause severe vomiting. Pt prefers not to take them; jl7 11:13 CEPHALOSPORINS; jl7 11:13 PENICILLINS; jl7 11:13 Sulfa (Sulfonamide Antibiotics); jl7 11:13 PROPOFOL; jl7 - PMHx: 11:13 Anxiety; COPD; depressive disorder; Hypertensive disorder; Mycobacterium Cholo; Renal jl7 cell CA with mets-Stg IV; - Immunization history:: Adult Immunizations unknown. - Infectious Disease History:: MAC-resolved. - Social history:: Smoking status: Patient/guardian denies using tobacco. ROS: 11:39 Constitutional: Negative for fever, and chills. Cardiovascular: Negative for chest ms3 pain, and palpitations. Abdomen/GI: Negative for abdominal pain, nausea, vomiting, diarrhea, and constipation, MS/Extremity: Negative for injury and deformity, 11:39 Respiratory: Positive for shortness of breath, Exam: 11:39 Constitutional: This is a well developed, well nourished patient who is awake, alert, ms3 and in no acute distress. Cardiovascular: Regular rate and rhythm with a normal S1 and S2. No gallops, murmurs, or rubs. Normal PMI, no JVD. No pulse deficits. 11:39 Respiratory: the patient does not display signs of respiratory distress, Breath sounds: wheezing: expiratory is heard diffusely, Respiratory rate: 22 15:27 ECG was reviewed by the Attending Physician. ms3 Vital Signs: 11:11 BP 134 / 94; Pulse 85; Resp 22; Temp 98.3; Pulse Ox 91% ; Weight 63.5 kg; Height 5 ft. jl7 6 in. ; 16:12 BP 95 / 54; Pulse 75; Resp 74; Temp 96; Pulse Ox 96% ; go2 22:05 BP 130 / 79; Pulse 77; Resp 20; Temp 97.9; Pulse Ox 97% 3 lpm ; go2 11:11 Body Mass Index 22.60 (63.50 kg, 167.64 cm) jl7 MDM: 11:13 Medical Screening Exam initiated ms3 11:39 Differential diagnosis: Anemia CHF exacerbation, Chronic Obstructive Pulmonary Disease ms3 pneumonia, pulmonary edema, Pulmonary Embolism. 17:21 Data reviewed: vital signs, nurses notes, lab test result(s), EKG, radiologic studies, ms3 and as a result, I will admit patient. Consideration of Admission/Observation Patient was admitted/placed on observation. Management of patient was discussed with the following: Hospitalist: Dr Blanchard. I considered the following discharge prescriptions or medication management in the emergency department Medications were administered in the Emergency Department. See MAR. Counseling: I had a detailed discussion with the patient and/or guardian regarding the historical points, exam findings, and any diagnostic results supporting the discharge/admit diagnosis, lab results, radiology results, the need for further work-up and treatment in the hospital. ED course: VS error noted. RR 20, patient speaking full sentences. Oxygen saturation is 93% on 2 L N/C. HR is 75. Discussed patient with hospitalist team and they will evaluate patient for admission.. 05/09 11:16 Order name: Basic Metabolic Panel; Complete Time: 14:56 ms3 05/09 11:16 Order name: CBC with Diff; Complete Time: 14:56 ms3 05/09 11:16 Order name: LFT's; Complete Time: 14:56 ms3 05/09 11:16 Order name: Magnesium; Complete Time: 14:56 ms3 05/09 11:16 Order name: NT PRO-BNP; Complete Time: 14:56 ms3 05/09 11:16 Order name: PT-INR; Complete Time: 14:56 ms3 05/09 11:16 Order name: Troponin HS; Complete Time: 14:56 ms3 05/09 16:37 Order name: Blood Culture Adult (2) ms3 05/09 16:37 Order name: Lactate w/ 2H reflex if indic. ms3 05/09 16:37 Order name: Ptt, Activated ms3 05/09 17:32 Order name: Urinalysis w/ reflexes EDMS 05/09 17:32 Order name: Basic Metabolic Panel EDMS 05/09 17:32 Order name: Basic Metabolic Panel EDMS 05/09 17:32 Order name: Basic Metabolic Panel EDMS 05/09 17:32 Order name: Basic Metabolic Panel EDMS 05/09 17:32 Order name: Basic Metabolic Panel EDMS 05/09 17:32 Order name: Basic Metabolic Panel EDMS 05/09 17:32 Order name: Basic Metabolic Panel EDMS 05/09 17:32 Order name: Basic Metabolic Panel EDMS 05/09 17:32 Order name: CBC with Automated Diff EDMS 05/09 17:32 Order name: CBC with Automated Diff EDMS 05/09 17:32 Order name: CBC with Automated Diff EDMS 05/09 17:32 Order name: CBC with Automated Diff EDMS 05/09 17:32 Order name: CBC with Automated Diff EDMS 05/09 17:32 Order name: CBC with Automated Diff EDMS 05/09 17:32 Order name: CBC with Automated Diff EDMS 05/09 17:32 Order name: CBC with Automated Diff EDMS 05/09 17:32 Order name: Magnesium EDMS 05/09 17:32 Order name: Magnesium EDMS 05/09 17:32 Order name: Magnesium EDMS 05/09 17:32 Order name: Magnesium EDMS 05/09 17:32 Order name: Magnesium EDMS 05/09 17:32 Order name: Magnesium EDMS 05/09 17:32 Order name: Magnesium EDMS 05/09 17:32 Order name: Magnesium EDMS 05/09 17:32 Order name: Phosphorus EDMS 05/09 17:32 Order name: Phosphorus EDMS 05/09 17:32 Order name: Phosphorus EDMS 05/09 17:32 Order name: Phosphorus EDMS 05/09 17:32 Order name: Phosphorus EDMS 05/09 17:32 Order name: Phosphorus EDMS 05/09 17:32 Order name: Phosphorus EDMS 05/09 17:32 Order name: Phosphorus EDMS 05/09 17:49 Order name: Glucose, Ancillary Testing EDMS 05/09 11:16 Order name: XRAY Chest (1 view); Complete Time: 14:56 ms3 05/09 11:18 Order name: CT Chest For PE Angio; Complete Time: 16:24 ms3 05/09 11:16 Order name: EKG; Complete Time: 11:16 ms3 05/09 17:32 Order name: CONS Physician Consult [facility] 05/09 17:32 Order name: Physical Therapy Consult [facility] 05/09 11:16 Order name: Cardiac monitoring; Complete Time: 14:25 ms3 05/09 11:16 Order name: EKG - Nurse/Tech; Complete Time: 22:13 ms3 05/09 11:16 Order name: IV Saline Lock; Complete Time: 14:25 ms3 05/09 11:16 Order name: Labs collected and sent; Complete Time: 14:25 ms3 05/09 11:16 Order name: O2 Per Protocol; Complete Time: 14:25 ms3 05/09 11:16 Order name: O2 Sat Monitoring; Complete Time: 14:25 ms3 05/09 16:37 Order name: Accucheck; Complete Time: 17:37 ms3 05/09 16:37 Order name: IV Saline Lock - Large Bore; Complete Time: 16:49 ms3 05/09 16:37 Order name: Vital Signs; Complete Time: 16:49 ms3 EC:27 Rate is 75 beats/min. Rhythm is regular. QRS Matthews is Normal. CA interval is normal. QRS ms3 interval is normal. Clinical impression: 1st degree heart block. Interpreted by me. Reviewed by me. Administered Medications: 14:24 Drug: Albuterol Inhalation 2.5 mg Inhalation every 20 minutes x3 Route: Inhalation; go2 14:24 Drug: Ipratropium Inhalation Aerosol 0.5 mg Inhalation once Route: Inhalation; go2 14:24 Drug: MethylPrednisoLONE IVP 125 mg IVP once Route: IVP; Site: left antecubital; go2 22:50 Follow up: Response: No adverse reaction cp4 17:37 Drug: NS 0.9% IV 500 ml 500 ml IV at 1 bolus once; to be given as a bolus over 30 go2 minutes Volume: 500 ml; Route: IV; Rate: 1 bolus; Site: left antecubital; 18:51 Follow up: IV Status: Completed infusion go2 Disposition Summary: 05/09/24 16:37 Hospitalization Ordered Notes: Hospitalization Status: Inpatient Admission ms3 Provider: Humberto Blanchard ms3 Location: Telemetry/MedSurg (Inpatient) ms3 Condition: Stable ms3 Problem: new ms3 Symptoms: are unchanged ms3 Bed/Room Type: Standard ms3 Room Assignment: 405(05/10/24 01:00) kl Diagnosis - Other pneumonia, unspecified organism ms3 - Hypo-osmolality and hyponatremia ms3 - Renal Amber carcinoma ms3 Forms: - Medication Reconciliation Form ms3 - SBAR form ms3 - Leadership Thank You Letter ms3 Signatures: Dispatcher [employer] EDMS Dianna Rm RN RN Syeda Herrera RN RN jl7 Chuck Rader DO DO ms3 Sudha Damian RN RN go2 Kimberly Flores cp4 Corrections: (The following items were deleted from the chart) 16:37 16:37 BLOOD CULTURE*+BA.LAB.BRZ ordered. EDMS EDMS 16:37 16:37 LACTATE+C.LAB.BRZ ordered. EDMS EDMS 16:37 16:37 PTT, ACTIVATED+COAG.LAB.BRZ ordered. EDMS EDMS 05/10 01:00 05/09 16:37 ms3 kl
--- NOTE | 2024-05-09 16:37 | ER ---
Nurse's Notes [facility] Name: Paula Ledezma Age: 63 yrs Sex: Female : 1960 Arrival Date: 05/09/2024 Time: 11:00 Bed 16 Private MD: Diagnosis: Other pneumonia, unspecified organism;Hypo-osmolality and hyponatremia;Renal Amber carcinoma Presentation: 05/09 11:11 Chief complaint: Patient states: SOB x 2-3 days, hx of renal cell carcinoma with mets jl7 to lungs, hx COPD. Coronavirus screen: At this time, the client does not indicate any symptoms associated with coronavirus-19. Ebola Screen: No symptoms or risks identified at this time. Initial Sepsis Screen: Does the patient meet any 2 criteria? No. Patient's initial sepsis screen is negative. Does the patient have a suspected source of infection? No. Patient's initial sepsis screen is negative. Risk Assessment: Do you want to hurt yourself or someone else? Patient reports no desire to harm self or others. Onset of symptoms was May 06, 2024. 11:11 Method Of Arrival: Wheelchair jl7 11:11 Acuity: JAROD 2 jl7 Triage Assessment: 11:13 General: Appears in no apparent distress. uncomfortable, Behavior is calm, cooperative, jl7 appropriate for age. Pain: Denies pain. Respiratory: Reports shortness of breath Onset: The symptoms/episode began/occurred gradually, the patient has moderate shortness of breath. Historical: - Allergies: 11:13 All painmeds cause severe vomiting. Pt prefers not to take them; jl7 11:13 CEPHALOSPORINS; jl7 11:13 PENICILLINS; jl7 11:13 Sulfa (Sulfonamide Antibiotics); jl7 11:13 PROPOFOL; jl7 - PMHx: 11:13 Anxiety; COPD; depressive disorder; Hypertensive disorder; Mycobacterium Cholo; Renal jl7 cell CA with mets-Stg IV; - Immunization history:: Adult Immunizations unknown. - Infectious Disease History:: MAC-resolved. - Social history:: Smoking status: Patient/guardian denies using tobacco. Screenin:18 [facility] ED Fall Risk Assessment (Adult) History of falling in the last 3 months, go2 including since admission No falls in past 3 months (0 pts) Confusion or Disorientation No (0 pts) Intoxicated or Sedated No (0 pts) Impaired Gait No (0 pts) Mobility Assist Device Used No (0 pt) Altered Elimination No (0 pt) Score/Fall Risk Level 0 - 2 = Low Risk. Abuse screen: Denies threats or abuse. Denies injuries from another. Nutritional screening: No deficits noted. Tuberculosis screening: No symptoms or risk factors identified. Assessment: 16:17 Reassessment: No changes from previously documented assessment. General: Appears in no go2 apparent distress. comfortable. Pain: Denies pain. Neuro: No deficits noted. Cardiovascular: No deficits noted. Rhythm is regular. Respiratory: Reports shortness of breath at rest cough that is non-productive, Airway is patent Respiratory effort is even, unlabored, Breath sounds are coarse bilaterally. GI: No deficits noted. GI: No signs and/or symptoms were reported involving the gastrointestinal system. : No deficits noted. : No signs and/or symptoms were reported regarding the genitourinary system. EENT: No deficits noted. No signs and/or symptoms were reported regarding the EENT system. Derm: No deficits noted. No signs and/or symptoms reported regarding the dermatologic system. Musculoskeletal: No deficits noted. No signs and/or symptoms reported regarding the musculoskeletal system. Vital Signs: 11:11 BP 134 / 94; Pulse 85; Resp 22; Temp 98.3; Pulse Ox 91% ; Weight 63.5 kg; Height 5 ft. jl7 6 in. ; 16:12 BP 95 / 54; Pulse 75; Resp 74; Temp 96; Pulse Ox 96% ; go2 22:05 BP 130 / 79; Pulse 77; Resp 20; Temp 97.9; Pulse Ox 97% 3 lpm ; go2 11:11 Body Mass Index 22.60 (63.50 kg, 167.64 cm) jl7 ED Course: 11:01 Patient arrived in ED. im 11:06 Chuck Rader DO is Attending Physician. ms3 11:13 Triage completed. jl7 11:13 Arm band placed on right wrist. jl7 11:59 XRAY Chest (1 view) In Process Unspecified. EDMS 13:45 Sudha Damian, MELVIN is Primary Nurse. go2 15:21 CT Chest For PE Angio In Process Unspecified. EDMS 16:19 Patient has correct armband on for positive identification. Side rails up X2. Adult w/ go2 patient. Provided Education on: wait times, fall risk. 16:19 No provider procedures requiring assistance completed. Inserted saline lock: 20 gauge go2 in left antecubital area, using aseptic technique. 16:19 Oxygen administration via nasal cannula \T\ 3L/min. go2 16:36 Humberto Blanchard is Hospitalizing Provider. ms3 17:37 Blood Culture Adult (2) Sent. go2 17:37 Lactate w/ 2H reflex if indic. Sent. go2 17:37 Ptt, Activated Sent. go2 18:51 Blood Culture Adult (2) Sent. go2 22:49 Patient admitted, IV remains in place. cp4 Administered Medications: 14:24 Drug: Albuterol Inhalation 2.5 mg Inhalation every 20 minutes x3 Route: Inhalation; go2 14:24 Drug: Ipratropium Inhalation Aerosol 0.5 mg Inhalation once Route: Inhalation; go2 14:24 Drug: MethylPrednisoLONE IVP 125 mg IVP once Route: IVP; Site: left antecubital; go2 22:50 Follow up: Response: No adverse reaction cp4 17:37 Drug: NS 0.9% IV 500 ml 500 ml IV at 1 bolus once; to be given as a bolus over 30 go2 minutes Volume: 500 ml; Route: IV; Rate: 1 bolus; Site: left antecubital; 18:51 Follow up: IV Status: Completed infusion go2 Medication: 16:20 VIS not applicable for this client. go2 Outcome: 16:37 Decision to Hospitalize by Provider. ms3 22:48 Admitted to ER Hold. Please see [facility] for further documentation. cp4 22:48 Condition: stable 22:48 Instructed on the need for admit, 05/10 02:23 Admitted to Med/surg accompanied by tech, via wheelchair, with oxygen, with chart, cp4 Condition: stable Instructed on the need for admit, 02:23 Patient left the ED. cp4 Signatures: Dispatcher [employer] EDMS Syeda Sanchez, RN RN jl7 Chuck Rader DO DO ms3 Rachael Zhou Christina cp4 Sudha Damian RN RN go2 Corrections: (The following items were deleted from the chart) 02 17:50 16:12 BP 95 / 54; Pulse 75bpm; Resp 74bpm; Pulse Ox 3%; Temp 96F; go2 go2
[2024-05-09] MEDS ORDERED: ACETAMINOPHEN 325 MG TABLET PO PRN (17:23)
--- NOTE | 2024-05-09 17:46 | P.HP ---
Certification for Inpatient Patient admitted to: Inpatient With expected LOS: >2 Midnights Practitioner: I am a practitioner with admitting privileges, knowledge of patient current condition, hospital course, and medical plan of care. Services: Services provided to patient in accordance with Admission requirements found in Title 42 Section 412.3 of the Code of Federal Regulations Patient History Date of Service: 05/09/24 Reason for admission: Acute hypoxic respiratory failure secondary to pneumonia and COPD exacerbat History of Present Illness: Paula Ledezma is a 63-year-old female with past medical history of renal cell carcinoma with mets to the liver bilateral kidney and adrenal, lungs, 6 rib, COPD, Mycobacterium chanel, anxiety, depressive disorder, right partial nephre ctomy who presented to the ED with shortness of breath is worsened over the last 3 days. She is on oxygen in the ED sating 98%. She does not have oxygen at home but may be requiring it as needed. She continues to smoke half pack daily when feeling well. Laboratory evaluation significant for mild left shift 79.7, sodium 125, glucose 126, BNP 343. CT chest/ PE protocol reports "Multiple left lung nodules including a left upper lobe 11 mm central nodule and a subpleural 12 mm upper segment lower lobe nodule. 5 mm subpleural right upper lobe nodule. All of these are new since the prior exams. These could relate to an infectious or inflammatory process although underlying malignancy or metastatic disease cannot be excluded. Other scattered basal predominant groundglass and tree-in-bud opacities, favoring an infectious or inflammatory process. Progressive right mixed lytic and sclerotic exterior sixth rib lesion now with an extraosseous soft tissue component. Malignancy should also be considered." Chest x-ray report "COPD. Mild bilateral pulmonary opacities. This can be further evaluated with CT". Paula will be admitted to hospitalist service for further evaluation treatment of acute hypoxic respiratory failure secondary to COPD exacerbation associated with pneumonia. Allergies Cephalosporins Allergy (Verified 01/14/22 21:10) Anaphylaxis Penicillins Allergy (Verified 01/14/22 21:10) Anaphylaxis Sulfa (Sulfonamide Antibiotics) Allergy (Verified 01/14/22 21:10) Anaphylaxis Home Medications: ALPRAZolam [Xanax*] 0.5 mg PO BEDTIME 01/14/22 Buspirone HCl [Buspar] 10 mg PO BID 01/14/22 Candesartan Cilexetil 16 mg PO BEDTIME 01/14/22 Clopidogrel Bisulfate [Plavix*] 75 mg PO DAILY 01/14/22 Cyclobenzaprine [Flexeril*] 5 mg PO BEDTIME 01/14/22 Duloxetine HCl 60 mg PO DAILY 01/14/22 Eplerenone 25 mg PO BEDTIME 01/14/22 Gabapentin 300 mg PO TID 01/14/22 Levothyroxine [Synthroid*] 100 mcg PO [id number] 01/14/22 Lovastatin 20 mg PO BEDTIME 01/14/22 Omeprazole [Prilosec] 40 mg PO DAILY 01/14/22 Prochlorperazine Maleate 10 mg PO Q6HP PRN 01/14/22 Tiotropium Mears [Spiriva Respimat] 2 puff IH BID 01/14/22 Verapamil HCl [Verapamil ER] 240 mg PO DAILY 01/14/22 carvediloL [Coreg] 25 mg PO BID 01/14/22 Acetaminophen [Tylenol Extra Strength] 1,000 mg PO TIDP PRN 01/15/22 Albuterol Inhaler [Ventolin Inhaler*] 2 puff IH BIDP PRN 01/15/22 Budesonide/Formoterol Fumarate [Symbicort 80-4.5 Mcg Inhaler] 2 puff IH BID 01/15/22 Cabozantinib S-Malate [Cabometyx] 40 mg PO DAILY 01/15/22 Cholecalciferol (Vitamin D3) [Vitamin D3] 25 mcg PO DAILY 01/15/22 Estrogens, Conjugated [Premarin] 1.25 mg PO DAILY 01/15/22 Ethambutol HCl [Myambutol] 1,200 mg PO SEECOM 01/15/22 Guanfacine HCl [Tenex*] 1 mg PO BEDTIME 01/15/22 Linaclotide [Linzess] 72 mcg PO DAILY 01/15/22 Magic Mouthwash [Magic Mouthwash*] 15 ml PO QIDP PRN 01/15/22 Mecobalamin [B12 Active] 1,000 mcg PO DAILY 01/15/22 Montelukast [Singulair*] 10 mg PO DAILY 01/15/22 Moxifloxacin HCl [Avelox] 400 mg PO DAILY 01/15/22 Ondansetron [Zofran (Odt)*] 4 mg PO BIDP PRN 01/15/22 Promethazine HCl 12.5 mg PO Q6HP PRN 01/15/22 Tramadol HCl [Ultram] 50 mg PO Q6HP PRN 01/15/22 Zinc Gluconate [Zinc] 50 mg PO DAILY 01/15/22 - Past Medical/Surgical History Diabetic: No -: Renal cell carcinoma -: Hypertension -: Hyperlipidemia -: GERD -: Anxiety -: PFO -: Cholecystectomy -: Appendectomy -: Hysterectomy -: Shoulder, ankle surgery -: Right partial nephrectomy Psychosocial/ Personal History: Patient lives at home with her , family - Family History Mother -: Cancer Father -: Cancer - Social History Smoking Status: Current every day smoker Alcohol use: No CD- Drugs: Yes Caffeine use: Yes Review of Systems Other: per HPI Physical Examination - Physical Exam General: Alert, In no apparent distress, Oriented x3 HEENT: Atraumatic, Normocephalic Neck: Supple Respiratory: Clear to auscultation bilaterally, Normal air movement Cardiovascular: No edema, Normal pulses, Regular rate/rhythm, Normal S1 S2 Capillary refill: <2 Seconds Gastrointestinal: Normal bowel sounds Musculoskeletal: No clubbing Integumentary: No rashes Neurological: Normal speech, Normal tone - Studies Laboratory Data (last 24 hrs) 05/09/24 05/09/24 05/09/24 14:21 14:21 14:21 WBC 6.30 Hgb 13.0 Hct 37.3 Plt Count 396 PT 11.9 INR 1.13 Sodium 125 L Potassium 3.9 BUN 9 Creatinine 0.50 L Glucose 126 H Magnesium 2.0 Total Bilirubin 0.7 AST 19 ALT 25 Alkaline Phosphatase 79 Assessment and Plan - Plan Assessment and plan Acute Hypoxic respiratory failure secondary to COPD exacerbation associated with pneumonia History of renal cell carcinoma mets to the lungs -CT chest/ PE protocol reports "Multiple left lung nodules including a left upper lobe 11 mm central nodule and a subpleural 12 mm upper segment lower lobe nodule. 5 mm subpleural right upper lobe nodule. All of these are new since the prior exams. These could relate to an infectious or inflammatory process although underlying malignancy or metastatic disease cannot be excluded. Other scattered basal predominant groundglass and tree-in-bud opacities, favoring an infectious or inflammatory process. Progressive right mixed lytic and sclerotic exterior sixth rib lesion now with an extraosseous soft tissue component. Tana gnancy should also be considered." -IV doxycycline -Steroids every 12 -Gentle IV fluids -Pain control with tramadol and Flexeril -Oxygen protocol -Consult Dr. Fernandez -Consult physical therapy, home O2 evaluation pending Hyponatremia -Sodium 125 -Gentle IV fluid Substance abuse -Marijuana use -Smoking cigarettes 1/2 pack day -Cessation education provided Anxiety/depressive disorder -Continue home medication DVT PPx lovenox Full code LOS 2 to 3 days Discharge Plan: Home Plan to discharge in: 72 Hours - Advance Directives Does patient have a Living Will: No Does patient have a Durable POA for Healthcare: No
[2024-05-09] MEDS: NA CHLORIDE 0.9% 1,000 ML IV SCH (18:00)
[2024-05-09] MEDS: DOXYCYCLINE 100 MG in NA CHLORIDE 0.9% 100 ML IVPB SCH (18:00)
[2024-05-09] MEDS ORDERED: TRAMADOL HCL 50 MG TAB PO PRN (18:20)
[2024-05-09] MEDS: ENOXAPARIN 40 MG/0.4 ML SQ SCH (20:00)
[2024-05-09] MEDS: METHYLPREDNISOLONE 40 MG INJ IV SCH (21:00)
[2024-05-09] MEDS: CYCLOBENZAPRINE 10 MG TAB PO SCH (21:00)
[2024-05-09] MEDS: GABAPENTIN 300 MG CAP PO SCH (21:00)
[2024-05-09] MEDS ORDERED: DOXYCYCLINE HYCLATE 100MG INJ ONE (21:40)
[2024-05-09] MEDS ORDERED: GABAPENTIN 300 MG CAP ONE (21:40)
[2024-05-09] MEDS ORDERED: METHYLPREDNISOLONE 40 MG INJ ONE (21:41)
[2024-05-09] MEDS ORDERED: NA CHLORIDE 0.9% 1,000 ML ONE (21:41)
[2024-05-09] MEDS ORDERED: NA CHLORIDE 0.9% 100 ML ONE (21:41)
[2024-05-09] MEDS ORDERED: ENOXAPARIN 40 MG/0.4 ML SQ ONE (21:41)
[2024-05-09] MEDS ORDERED: CYCLOBENZAPRINE 10 MG TAB ONE (21:52)
[2024-05-09 23:13] VITALS: BMI 22.4
[2024-05-10 06:50] LABS: Absolute Lymphocytes (CBC) 0.4 K/uL (0.7-4.9); Absolute Monocytes 0.1 K/uL (0.1-1.3); Absolute Neutrophil 3.6 K/uL (1.8-8.0); Basophils % 0.1 % (0-1.3); Hematocrit 30.5 % (36.0-45.0); Hemoglobin 10.7 g/dL (12.0-15.0); Lymphocytes % 8.7 % (15.3-44.8); MCH 36.4 pg (27.0-35.0); MCV 103.8 fL (80-100); MPV 7.4 fL (7.6-11.3); Monocytes % 2.4 % (3.3-12.3); Neutrophils % 88.8 % (41.7-73.7); Nucleated Red Blood Cells % 0.2 % (0-0); Platelets 348 thou/uL (152-406); RBC Red Blood Cell Count 2.94 M/uL (3.86-4.86); Red Cell Distribution Width 14.9 % (12.1-15.2)
[2024-05-10 06:59] LABS: Anion Gap 8.2 mEq/L (5.0-15.0); Magnesium 1.9 mg/dL (1.6-2.4); Phosphorus 2.4 mg/dL (2.5-4.9); Potassium 4.2 mEq/L (3.5-5.1)
[2024-05-10] MEDS ORDERED: ALBUTEROL INHALER 200 PUFF/6.7 GM IH PRN (07:27)
[2024-05-10] MEDS ORDERED: ALBUTEROL 2.5 MG/3 ML NEB SOL NEB PRN (07:27)
[2024-05-10] MEDS ORDERED: PROCHLORPERAZINE 5 MG TAB PO PRN (07:27)
[2024-05-10] MEDS ORDERED: PROMETHAZINE 25 MG TABLET PO PRN (07:27)
[2024-05-10 08:19] LABS: Specific Gravity 1.024 (1.005-1.030); Sqamous Epithelial <5 /HPF (None Seen); Urine Bacteria None Seen /HPF (<20); Urine Bilirubin NEGATIVE (Negative); Urine Blood Negative (Negative); Urine Clarity Clear (Clear); Urine Color Light-Yellow (Yellow); Urine Culture Reflex Order NOT NEEDED; Urine Glucose NEGATIVE (Negative); Urine Ketones TRACE (Negative); Urine Microscopic Reflex YN ORDER UMIC; Urine Nitrite NEGATIVE (Negative); Urine Protein 1+ (Negative); Urine RBC <5 /HPF (None Seen); Urine Urobilinogen Normal (Normal); Urine WBC <5 /HPF (<5); Urine pH 6.5 (5.0-7.0)
[2024-05-10] MEDS: VERAPAMIL SR 240 MG TABLET PO SCH (09:00)
[2024-05-10] MEDS: oxyBUTYnin chloride 5 MG TAB PO SCH (09:00)
[2024-05-10] MEDS: CABOZANTINIB S MALATE 20 MG PO SCH (09:00)
[2024-05-10] MEDS: ETHAMBUTOL HCL 400 MG TAB PO SCH (09:00)
[2024-05-10] MEDS: METOCLOPRAMIDE 5 MG TAB PO SCH (09:00)
[2024-05-10] MEDS ORDERED: AMIKACIN NEB SCH (09:00)
[2024-05-10] MEDS ORDERED: HOME MED 1 EA UNK (Omeprazole [Prilosec] 40 MG Capsule.Dr) PO SCH (09:00)
[2024-05-10 09:45] LABS: Blood Morphology Comment NOTED (NOT SEEN); Platelet Estimate ADEQ; White Blood Cell Scan OK (OK)
[2024-05-10 09:46] LABS: Polychromasia 2+
[2024-05-10] MEDS: PANTOPRAZOLE 40MG TABLET PO SCH (10:22)
[2024-05-10] MEDS: carvediloL 25 MG TAB PO SCH (10:22)
[2024-05-10] MEDS: CLOPIDOGREL 75 MG TABLET PO SCH (10:24)
[2024-05-10] MEDS: DULOXETINE 30 MG CAP PO SCH (10:24)
[2024-05-10] MEDS: BUSPIRONE HCL 5 MG TABLET PO SCH (10:24)
[2024-05-10] MEDS: ALPRAZOLAM 0.5 MG TABLET PO SCH (10:25)
[2024-05-10] MEDS: NICOTINE 14 MG/PAT TD SCH (10:26)
[2024-05-10] MEDS: HYDRALAZINE HCL 25 MG TABLET PO SCH (10:28)
--- NOTE | 2024-05-10 11:07 | P.PN ---
Date of Service: 05/10/24 Subjective Awake, eating breakfast Feeling better this morning Sodium slowly improving Will evaluate for home oxygen ROS 10 point ROS as noted above, otherwise negative Physical Exam General: Alert and Oriented x3, NAD HEENT: Atraumatic, Normocephalic Neck: Supple Respiratory: Clear to auscultation bilaterally, Normal air movement Cardiovascular: No edema, Normal pulses, RRR, Normal S1 S2 Capillary refill: <2 Seconds Gastrointestinal: Normal bowel sounds Musculoskeletal: No clubbing Integumentary: No rashes Neurological: Normal speech, Normal tone Vitals Reviewed Problem list Acute Hypoxic respiratory failure secondary to COPD exacerbation associated with pneumonia History of renal cell carcinoma mets to the lungs Hyponatremia Substance abuse Anxiety/depressive disorder Assessment and Plan Acute Hypoxic respiratory failure secondary to COPD exacerbation associated with pneumonia History of renal cell carcinoma mets to the lungs -CT chest/ PE protocol reports "Multiple left lung nodules including a left upper lobe 11 mm central nodule and a subpleural 12 mm upper segment lower lobe nodule. 5 mm subpleural right upper lobe nodule. All of these are new since the prior exams. These could relate to an infectious or inflammatory process although underlying malignancy or metastatic disease cannot be excluded. Other scattered basal predominant groundglass and tree-in-bud opacities, favoring an infectious or inflammatory process. Progressive right mixed lytic and sclerotic exterior sixth rib lesion now with an extraosseous soft tissue component. Malignancy should also be considered." -Levaguin started -Duonebs and brovana -Steroids every 12 -Gentle IV fluids -Pain control with tramadol and Flexeril -Oxygen protocol -Consult Dr. Fernandez -Consult physical therapy, home O2 evaluation pending Hyponatremia -Sodium 126 -IVF stopped Substance abuse -Marijuana use -Smoking cigarettes 1/2 pack day -Cessation education provided Anxiety/depressive disorder -Continue home medication DVT PPx lovenox Full code LOS 2 to 3 days Discharge Plan: Home Plan to discharge in: 72 Hours
--- NOTE | 2024-05-10 11:31 | P.CNS ---
Date of Consult: 05/10/24 Chief Complaint: Shortness of breath hoarseness History of Present Illness: 63 years of age history of active tobacco abuse with worsening shortness of breath and hoarseness for about 2 days a history of metastatic renal cancer stopped her chemo pill about a week ago does take Symbicort and Spiriva at home the sputum with hypoxemia Allergies Cephalosporins Allergy (Verified 01/14/22 21:10) Anaphylaxis Penicillins Allergy (Verified 01/14/22 21:10) Anaphylaxis Sulfa (Sulfonamide Antibiotics) Allergy (Verified 01/14/22 21:10) Anaphylaxis Home Medications: ALPRAZolam [Xanax*] 0.5 mg PO BID 01/14/22 Buspirone HCl [Buspar] 10 mg PO TID 01/14/22 Clopidogrel Bisulfate [Plavix*] 75 mg PO DAILY 01/14/22 Cyclobenzaprine [Flexeril*] 5 mg PO TID 01/14/22 Duloxetine HCl 60 mg PO DAILY 01/14/22 Gabapentin 600 mg PO BEDTIME 01/14/22 Levothyroxine [Synthroid*] 75 mcg PO [id number] 01/14/22 Omeprazole [Prilosec] 40 mg PO DAILY 01/14/22 Prochlorperazine Maleate 10 mg PO Q6HP PRN 01/14/22 carvediloL [Coreg] 25 mg PO BID 01/14/22 Albuterol Inhaler [Ventolin Inhaler*] 2 puff IH BIDP PRN 01/15/22 Ethambutol HCl [Myambutol] 1,200 mg PO SEECOM 01/15/22 Montelukast [Singulair*] 10 mg PO BEDTIME 01/15/22 Ondansetron [Zofran (Odt)*] 4 mg PO BIDP PRN 01/15/22 Promethazine HCl 12.5 mg PO Q6HP PRN 01/15/22 Tramadol HCl [Ultram] 50 mg PO Q6HP PRN 01/15/22 Zinc Gluconate [Zinc] 50 mg PO DAILY 01/15/22 Albuterol Neb [Proventil 0.083% Neb Soln] 3 ml NEB Q6H PRN 05/10/24 Amikacin For Inhalation 100mg/Ml 5 ml NEB DAILY 05/10/24 Azithromycin [Zithromax] 250 mg PO SEECOM 05/10/24 Cabozantinib S-Malate [Cabometyx] 20 mg PO DAILY 05/10/24 Diphenox/Atropine [Lomotil] 1 tab PO QID 05/10/24 Hydralazine [Apresoline] 25 mg PO TID 05/10/24 Metoclopramide HCl [Reglan] 10 mg PO QID 05/10/24 Nicotine [Nicoderm*] 1 patch TOP DAILY 05/10/24 Oxybutynin Chloride [Oxybutynin Chloride ER] 10 mg PO DAILY 05/10/24 Verapamil HCl [Verapamil ER] 120 mg PO DAILY 05/10/24 - Past Medical/Surgical History Diabetic: No -: Renal cell carcinoma -: Hypertension -: Hyperlipidemia -: GERD -: Anxiety -: PFO -: Cholecystectomy -: Appendectomy -: Hysterectomy -: Shoulder, ankle surgery -: Right partial nephrectomy Psychosocial/ Personal History: Patient lives at home with her , family - Family History Mother Medical History: Cancer Father Medical History: Cancer - Social History Smoking Status: Current every day smoker Alcohol use: No CD- Drugs: Yes Caffeine use: Yes Review of Systems 10-point ROS is otherwise unremarkable General: Weakness Respiratory: Cough, Shortness of Breath Physical Examination Temp Pulse Resp BP Pulse Ox 97.4 F 103 H 18 175/103 H 90 L 05/10/24 08:00 05/10/24 10:22 05/10/24 08:00 05/10/24 10:22 05/10/24 08:00 General: Alert, Oriented x3 Respiratory: Expiratory wheezes Cardiovascular: No edema, Regular rate/rhythm, Normal S1 S2 Gastrointestinal: Normal bowel sounds, Soft and benign Laboratory Data (last 24 hrs) 05/09/24 05/09/24 05/09/24 14:21 14:21 14:21 WBC 6.30 Hgb 13.0 Hct 37.3 Plt Count 396 PT 11.9 INR 1.13 Sodium 125 L Potassium 3.9 BUN 9 Creatinine 0.50 L Glucose 126 H Magnesium 2.0 Total Bilirubin 0.7 AST 19 ALT 25 Alkaline Phosphatase 79 - Problems (1) COPD exacerbation Current Visit: Yes Status: Acute Plan: Is 63 years of age man with metastatic renal cancer was was on chemotherapy nose with renal cancer in 2017 status 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
[2024-05-10] MEDS ORDERED: NA CHLORIDE 0.9% 1,000 ML IV SCH (12:00)
[2024-05-10] MEDS: levoFLOXacin 750 MG TAB PO SCH (12:51)
[2024-05-10] MEDS: POTASS/SODIUM PHOSPHATE 1 PKT POWD.PACK PO SCH (12:52)
--- NOTE | 2024-05-10 13:41 | EKG ---
Test Date: 2024-05-09 Test Time: 14:56:23 Car Sales Associate: SALVATORE MEASUREMENT RESULTS: Intervals: Rate: 75 UT: 236 QRSD: 82 QT: 402 QTc: 448 [place]: P: 64 UT: 236 QRS: 79 T: 87 INTERPRETIVE STATEMENTS: Sinus rhythm with 1st degree AV block Anterior infarct, age undetermined Abnormal ECG Compared to ECG 08/15/2022 19:52:18 First degree AV block now present Myocardial infarct finding now present Atrial fibrillation no longer present Electronically Signed On 05-10-24 13:38:26 LANGUAGE SPECIALIST by Vidal Núñez
[2024-05-10] MEDS: VERAPAMIL 120 MG PO SCH ×2 (14:33→20:24)
[2024-05-10] MEDS: IPRATROPIUM BROM 0.5MG/2.5ML NEB SCH (14:44)
[2024-05-10] MEDS: ARFORMOTEROL TARTRATE 15 MCG/2 ML VIAL.NEB NEB SCH (14:44)
[2024-05-10] MEDS: MONTELUKAST 10 MG TAB PO SCH (20:25)
[2024-05-11] MEDS: LEVOTHYROXINE SOD 0.075 MG TAB PO SCH (05:02)
[2024-05-11 06:43] LABS: Absolute Lymphocytes (CBC) 0.4 K/uL (0.7-4.9); Absolute Monocytes 0.2 K/uL (0.1-1.3); Absolute Neutrophil 8.4 K/uL (1.8-8.0); Basophils % 0.2 % (0-1.3); Hematocrit 32.2 % (36.0-45.0); Hemoglobin 11.1 g/dL (12.0-15.0); Lymphocytes % 4.6 % (15.3-44.8); MCH 35.9 pg (27.0-35.0); MCHC 34.4 g/dL (32.0-36.0); MCV 104.1 fL (80-100); MPV 6.8 fL (7.6-11.3); Monocytes % 2.7 % (3.3-12.3); Neutrophils % 92.5 % (41.7-73.7); Nucleated Red Blood Cells % 0.1 % (0-0); Platelets 435 thou/uL (152-406)
[2024-05-11 07:01] LABS: Anion Gap 10.1 mEq/L (5.0-15.0); Magnesium 1.7 mg/dL (1.6-2.4); Phosphorus 3.6 mg/dL (2.5-4.9); Potassium 4.1 mEq/L (3.5-5.1)
[2024-05-11] MEDS ORDERED: ALBUTEROL 2.5 MG/3 ML NEB SOL NEB PRN (08:09)
[2024-05-11 09:25] VITALS: O2SAT 92
[2024-05-11 10:43] VITALS: TEMP 98
[2024-05-11] MEDS: MAGNESIUM SULFATE 1 gm IVPB 1 GM/100 ML BAG IV ONE (12:18)
[2024-05-11 16:37] VITALS: BP 149/88
== END 2024-05-11 19:28 | disposition home or self-care (01) | DRG 193 ==
LOC: ER 11:00 → ERHOLD 17:23 → 4TH 05-10 01:36
PROVIDERS: ADMIT Internal Medicine; ATTEND Internal Medicine
DX: J18.9 Pneumonia, unspecified organism (principal); J96.01 Acute respiratory failure with hypoxia; J44.0 Chronic obstructive pulmonary disease with (acute) lower respiratory infection; J44.1 Chronic obstructive pulmonary disease with (acute) exacerbation; E87.1 Hypo-osmolality and hyponatremia; C64.9 Malignant neoplasm of unspecified kidney, except renal pelvis; C78.00 Secondary malignant neoplasm of unspecified lung; E78.5 Hyperlipidemia, unspecified; F41.9 Anxiety disorder, unspecified; F32.A Depression, unspecified; I10 Essential (primary) hypertension; F17.210 Nicotine dependence, cigarettes, uncomplicated; Z88.5 Allergy status to narcotic agent; Z88.0 Allergy status to penicillin; Z90.5 Acquired absence of kidney; Z88.2 Allergy status to sulfonamides; Z88.1 Allergy status to other antibiotic agents; Z88.8 Allergy status to other drugs, medicaments and biological substances; Z79.02 Long term (current) use of antithrombotics/antiplatelets; Z90.49 Acquired absence of other specified parts of digestive tract; Z90.710 Acquired absence of both cervix and uterus; Z79.890 Hormone replacement therapy; Z79.899 Other long term (current) drug therapy; Z86.711 Personal history of pulmonary embolism
CPT/HCPCS: 36415; 71045; 71275; 80048; 80076; 81001; 82947; 83605; 83735; 83880; 83930; 84100; 84484; 85025; 85610; 85730; 87040; 93005; 94640; 96361; 96374; 97161; 99285; J1650; J2919; J3475; J7030; J7605; J7613; J7644; Q9967